=== PATIENT | female | born 1955 | race Caucasian/White ===

== ENCOUNTER 2025-01-25 22:01 | Emergency (ER) | payer MEDICARE, SELFPAY ==
[2025-01-25 22:05] VITALS: BP 143/80; PULSE 81; RESP 18; TEMP 36.6; O2SAT 94; BMI 27.6
--- NOTE | 2025-01-25 22:11 | ED.GENADULT ---
HPI - General Adult General Time Seen by Provider: 22:11 Date Seen: 01/25/25 Chief complaint: Ear/Nose/Throat Problem Stated complaint: L ear pain Time Seen by Provider: 01/25/25 22:08 Source: patient, family, RN notes reviewed and old records reviewed Mode of arrival: ambulatory Limitations: no limitations History of Present Illness HPI narrative: 70-year-old female who presents today with left ear pain. Patient has had upper respiratory symptoms for couple of days, negative COVID test at home x2. Tonight the shower felt like she got water in her ear and since then has had pressure, muffled hearing, in sensation of ear fullness. Took Tylenol for this earlier. Related Data Home Medications ?Medication ?Instructions ?Recorded ?Confirmed atorvastatin 10 mg tablet 10 mg PO DAILY 01/25/25 01/25/25 bupropion HCl 75 mg tablet 75 mg PO DAILY 01/25/25 01/25/25 nilotinib HCl 200 mg capsule 200 mg PO DAILY 01/25/25 01/25/25 (Tasigna) omeprazole 10 mg capsule,delayed 10 mg PO DAILY 01/25/25 01/25/25 release propranolol 120 mg capsule,24 120 mg PO DAILY 01/25/25 01/25/25 hr,extended release (Inderal LA) Previous Rx's ?Medication ?Instructions ?Recorded fluticasone propionate 50 2 spray intranasal DAILY PRN #16 01/25/25 mcg/actuation nasal grams spray,suspension (Flonase Allergy Relief) prednisone 20 mg tablet 40 mg (2 x 20 mg) PO DAILY 4 days 01/25/25 #8 tabs Allergies Allergy/AdvReac Type Severity Reaction Status Date / Time imatinib Allergy Mild Rash Verified 01/25/25 22:28 [facility] Social History Smoking Status: Never smoker Do you use any of these nicotine containing products: None How often do you have a drink containing alcohol: monthly or less How many standard drinks containing alcohol do you have on a typical day: 1 or 2 How often do you have six or more drinks on one occasion: Never AUDIT-C Alcohol total score: 1 Non-prescribed substance use: denies use service: No Exam Narrative: Exam Narrative: General: Well-developed and well-nourished, no acute distress Head: Atraumatic and normocephalic Eyes: Pupils are equal reactive, extraocular motions intact, conjunctiva clear ENT: External nose and ears are normal, posterior pharynx without erythema or exudate. Left external auditory canal clear without erythema or swelling, left tympanic membrane bulging and mildly hyperemic Neck: No midline cervical tenderness, full spontaneous range of motion the neck, trachea midline, no adenopathy Heart: Regular rate and rhythm no murmurs or thrills Lungs: Clear to auscultation bilaterally without wheezes or crackles Abdomen: Soft, nontender, nondistended with active bowel sounds Musculoskeletal: No tenderness, deformity, or edema Neurologic: Awake, alert, and oriented x3, no gross focal neurologic deficits, cranial nerves intact as tested Psych: Mood and affect are appropriate Skin: No rashes Const: Vital Signs, click to edit/add: Vital Signs - 24 hr 01/25/25 22:05 Temperature 97.8 F Pulse Rate [Left P ulse Oximeter] 81 Respiratory Rate 18 Blood Pressure [Ri ght Upper Arm] 143/80 H Pulse Oximetry 94 Oxygen Delivery Me thod Room Air Course Course ED Course: Reviewed most recent primary care visit from January 06 which was follow-up from [facility] for history of right-sided breast cancer treated with surgery, chemotherapy. 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 At that time started on the Keflex for breast cellulitis. Patient presents today with couple of days of burst for symptoms as well as left ear pain and fullness. She is requesting a COVID test, in spite of having to negative COVID test at home. Will call with results as patient would not be a candidate for treatment. She also has left ear fullness, feels like there is fluid in it. On exam she has fluid in the middle ear space with mild erythema of the eardrum but no nat purulence or bullae. Symptoms are most consistent with otitis media with effusion, patient started on prednisone as well as nasal decongestant and stable for discharge Vital Signs Vital signs: Initial Vital Signs Temperature 97.8 F 01/25/25 22:05 Temperature Source Temporal Artery Scan 01/25/25 22:05 Pulse Rate 81 01/25/25 22:05 Pulse Rhythm Regular 01/25/25 22:05 Pulse Strength 3+ Normal 01/25/25 22:05 Respiratory Rate 18 01/25/25 22:05 Blood Pressure 143/80 H 01/25/25 22:05 Blood Pressure Mean 101 01/25/25 22:05 Blood Pressure Position Sitting 01/25/25 22:05 Pulse Oximetry 94 01/25/25 22:05 Oxygen Delivery Method Room Air 01/25/25 22:05 Vital Signs Temperature 97.8 F 01/25/25 22:05 Pulse Rate 81 01/25/25 22:05 Respiratory Rate 18 01/25/25 22:05 Blood Pressure 143/80 H 01/25/25 22:05 Pulse Oximetry 94 01/25/25 22:05 Oxygen Delivery Method Room Air 01/25/25 22:05 Temperature 97.8 F 01/25/25 22:05 Pulse Rate 81 01/25/25 22:05 Respiratory Rate 18 01/25/25 22:05 Blood Pressure 143/80 H 01/25/25 22:05 Pulse Oximetry 94 01/25/25 22:05 Oxygen Delivery Method Room Air 01/25/25 22:05 Discharge Plan Discharge Clinical Impression: OME (otitis media with effusion) Patient Disposition: Home, Self-Care Condition: Stable Instructions: Fluid In The Ear (Serous Otitis Media) (ED) Additional Instructions: Take prednisone as prescribed, use Flonase as prescribed and Benadryl as needed Activity Level: No Restrictions Discharge Diet: Regular Prescriptions: New fluticasone propionate [Flonase Allergy Relief] 50 mcg/actuation spray,suspension 2 spray intranasal DAILY PRNQty: 16 2RF Rx Instructions: administer into each nostril prednisone 20 mg tablet 40 mg PO DAILY 4 Days Qty: 8 0RF No Action nilotinib HCl [Tasigna] 200 mg capsule 200 mg PO DAILY Rx Instructions: must be taken on empty stomach; no food at least 2 hrs before or 1 hr after dose propranolol [Inderal LA] 120 mg capsule,extended release 24 hr 120 mg PO DAILY atorvastatin 10 mg tablet 10 mg PO DAILY bupropion HCl 75 mg tablet 75 mg PO DAILY omeprazole 10 mg capsule,delayed release(DR/EC) 10 mg PO DAILY Stand Alone Forms: MyHealth Info Instructions
--- OUTSIDE RECORDS SUMMARY | 2025-01-25 22:52 | XMS_ITS ---
Author Name Interface, [id number] lity Address [address] [facility] [address] [address] [facility] On[facility] Address [address] [facility] [address] [address] Allergies and Adverse Reactions Medication/Group Name Reaction Severity Date imatinib mesylate 01/20/2025 topiramate 01/20/2025 Plan Date Type Value 01/20/2025 APPOINTMENT OV 30 MIN 01/06/2025 APPOINTMENT OV 30 MIN 01/06/2025 APPOINTMENT LAB 15 MIN 01/06/2025 LABORDER CMP 01/06/2025 LABORDER CBC w/ auto diff 01/06/2025 LABORDER BCR/ABL1 Quant Reason for Visit OV 30 MIN Encounters Date Name 01/06/2025 Cellulitis of breast (disorder) 01/06/2025 Chronic myeloid leuk emia, disease (disorder) 01/06/2025 Estrogen receptor ne gative status [ER-] 01/06/2025 Lymphedema 01/06/2025 Personal history of breast cancer Immunizations Date Name Route Dose Instructions Refusal Reason Stat us Covid-19 vaccine (Moderna) Patient declined/rejected Not Administered Diagnostic Results Date Type Test Units Lower Limit Upper Limit Result Flag Comments Status Ordered By Specimen Source Lab Address 01/06 CBC w/ auto diff WBC K/uL 3.0 8.9 4.5 FINAL Nicole [facility] [place] [facility] , [address] [place] [id number] 0 01/06 CBC w/ auto diff HGB g/dL 11.3 15.2 12.8 FINAL Nicole [facility] - [place] [facility] , [address] [place] [id number] 0 01/06 CBC w/ auto diff PLT K/uL 113.0 364.0 153 FINAL Nicole Ya [place] [facility] [place] [facility] , [address] [place] [id number] 0 01/06 CBC w/ auto diff Augustus # (ANC) K/uL 1.6 6.6 2.8 FINAL Nicole Ya [place] [facility] [place] [facility] , [address] [place] [id number] 0 01/06 CBC w/ auto diff Augustus % % 43.0 74.0 61.5 FINAL Nicole Ya [place] [facility] [place] [facility] , [address] [place] [id number] 0 01/06 CBC w/ auto diff IG % % 0.0 0.5 0.4 FINAL Nicole Ya [place] [facility] , [address] [place] [id number] 0 01/06 CBC w/ auto diff IG # K/uL 0.0 0.03 0.02 FINAL Nicole Ya [place] [facility] [place] [facility] , [address] [place] [id number] 0 01/06 CBC w/ auto diff LY % % 14.0 41.0 25.4 FINAL Nicole Ya [place] [facility] [place] [facility] , [address] [place] [id number] 0 01/06 CBC w/ auto diff MO % % 6.0 15.0 12.7 FINAL Nicole Ya [place] [facility] [place] [facility] , [address] [place] [id number] 0 01/06 CBC w/ auto diff EO % % 0.0 7.0 0.0 FINAL Nicole Ya [place] [facility] [place] [facility] , [address] [place] [id number] 0 01/06 CBC w/ auto diff BA % % 0.0 2.0 0.0 FINAL Nicole Ya [place] [facility] [place] [facility] , [address] [place] [id number] 0 01/06 CBC w/ auto diff LY # K/uL 0.4 3.6 1.1 FINAL Nicole Ya [place] [facility] [place] [facility] , [address] [place] [id number] 0 01/06 CBC w/ auto diff NRBC % #/100W BC 0.0 0.2 0.0 FINAL Nicole Ya [place] [facility] [place] [facility] , [address] [place] [id number] 0 01/06 CBC w/ auto diff MO # K/uL 0.2 1.3 0.6 FINAL Nicole Ya [place] [facility] [place] [facility] , [address] [place] [id number] 0 01/06 CBC w/ auto diff EO # K/uL 0.0 0.6 0.0 FINAL Nicole Ya [place] [facility] [place] [facility] , [address] [place] [id number] 0 01/06 CBC w/ auto diff BA # K/uL 0.0 0.2 0.0 FINAL Nicole Ya [place] [facility] [place] [facility] , [address] [place] [id number] 0 01/06 CBC w/ auto diff RBC M/uL 3.9 5.1 3.69 Low FINAL Nicole Ya [place] [facility] [place] [facility] , [address] [place] [id number] 0 01/06 CBC w/ auto diff HCT % 35.0 48.0 37.6 FINAL Nicole Ya [place] [facility] [place] [facility] , [address] [place] [id number] 0 01/06 CBC w/ auto diff MCV fL 80.0 104.0 101.9 FINAL Nicole Ya [place] [facility] [place] [facility] , [address] [place] [id number] 0 01/06 CBC w/ auto diff MCH pg 26.0 35.0 34.7 FINAL Nicole Ya [place] [facility] [place] [facility] , [address] [place] [id number] 0 01/06 CBC w/ auto diff MCHC g/dL 30.0 35.0 34.0 FINAL Nicole Ya [place] [facility] [place] [facility] , [address] [place] [id number] 0 01/06 CBC w/ auto diff MPV fL 9.5 13.4 9.6 FINAL Nicole Ya [place] [facility] [place] [facility] , [address] [place] [id number] 0 01/06 CBC w/ auto diff RDW % 11.4 16.1 13.00 FINAL Nicole Ya [place] [facility] [place] [facility] , [address] [place] [id number] 0 01/06 CMP Album in g/dL 3.5 5.0 3.9 FINAL Nicole Fel[place] * [place] [facility] [place] [facility] , [address] [place] [id number] 0 01/06 CMP Alkal ine phosp hatas e U/L 36.0 125.0 79 FINAL Nicole Ya * [facility] , [address] [facility] [address] [facility] [id number] 0 01/06 CMP ALT/S GPT U/L 0.0 34.0 24 FINAL Nicole Ya * [facility] , [address] [facility] [address] [facility] [id number] 0 01/06 CMP AST/S GOT U/L 14.0 36.0 33 FINAL Nicole Ya * [facility] , [address] [facility] [address] [facility] [id number] 0 01/06 CMP BUN mg/dL 7.0 17.0 14.0 FINAL Nicole Ya * [facility] , [address] [facility] [address] [facility] [id number] 0 01/06 CMP Calci um mg/dL 8.4 10.2 8.9 FINAL Nicole Ya * [facility] , [address] [facility] [address] [facility] [id number] 0 01/06 CMP Chlor rakan mmol/L 96.0 107.0 109 High FINAL Nicole Ya * [facility] , [address] [facility] [address] [facility] [id number] 0 01/06 CMP CO2 mmol/L 22.0 30.0 27 The expected total allowable error for CO2 is 5.6%. We have seen up to 10% differenc e in values if reported at the end of the 96 hour stability window. Please consider the clinical significa nce of a 2.0-2.5 mmol/L lower reported CO2 value if reported at the end of the 96 hour stability window. FINAL Nicole Ya * [facility] , [address] [facility] [address] [facility] [id number] 0 01/06 CMP Creat inine mg/dL 0.66 1.25 1.00 FINAL Nicole Ya * [facility] , [facility] [address] [id number] 0 01/06 CMP GFR estim ate ml/min /1.73m ^2 60.2 GFR is calculate d using the CKD-EPI equation. FINAL Nicole Ya * [facility] , [facility] [address] [id number] 0 01/06 CMP Gluco se mg/dL 74.0 100.0 88 FINAL Nicole Ya * [facility] , [facility] [address] [id number] 0 01/06 CMP Potas sium mmol/L 3.5 5.1 4.1 FINAL Nicole Ya * [facility] , [facility] [address] [id number] 0 01/06 CMP Sodiu m mmol/L 137.0 145.0 141 FINAL Nicole Ya * [facility] , [facility] [address] [id number] 0 01/06 CMP Bilir ubin, total mg/dL 0.2 1.3 0.8 FINAL Nicole Ya * [facility] , [facility] [address] [id number] 0 01/06 CMP Total prote in g/dL 6.3 8.2 6.2 Low FINAL Nicole Ya * [facility] , [facility] [address] [id number] 0 01/06 PRIOR RESUL T See Report FINAL Nicole Ya [facility] [address] [facility] [id number] 4 01/06 SOURC E: Periphe ral Blood FINAL Nicole Ya [facility], [facility] [address] [place] [id number] 4 01/06 BCR ABL1/ ABL1 % % 0.000 FINAL Nicole Ya [facility], [facility] [address] [place] [id number] 4 01/06 BCR ABL1/ ABL1 % (IS) % 0.000 FINAL Nicole Ya [facility], [facility] [address] [place] [id number] 4 01/06 INTER PRETA TION see note The P190 and P210 BCR-ABL1 fusion transcrip ts are NOTdetect ed.Revers e transcrip tion real-time PCR is performed forthe P190 and P210 BCR-ABL1 transcrip ts associate d withthe t(9;22) chromosom al transloca tion. For P190,resu lts are expressed as a percent ratio of BCR-ABL1t o ABL1 transcrip t, and further adjusted to theintern ational scale (IS) for P210.For additiona l informati on, please refer tohttp:// education .[employer]/faq/F AQ72(This link is being provided forinform ational/e ducationa l purposes only.)Ass ay sensitivi ty is at least 4.5-logs below baselineB CR-ABL1 transcrip t levels but is dependent onquantit y and quality of RNA used for testing and thecellul arity of the sample.Th is test was developed and its analytica lperforma nce character istics have been determine dby [facility] , [place], [place].It has not been cleared or approved by the FDA. Thisassay has been validated pursuant to the CLIAregul ations and is used for clinical purposes. Reviewed by Aiden Hui M.D., Ph.D.Staf f Pathologi st FINAL Nicole Ya [facility], [facility] [address] [facility] [id number] 4 01/06 P190 BCR ABL1 Not Detecte d LELIA NEGRETE, [facility] [address] [facility] [id number] 4 01/06 P210 BCR ABL1 Not Detecte d LELIA NEGRETE [facility] [address] [facility] [id number] 4 Medications Date Name Route Dose Frequency Instructions Start Date End Date Status Fill Status Indication 03/13 Atorvas tatin Oral orally 1.0 tablet daily active 09/11 Desvenl afaxine Oral 24 hr Tab oral 1.0 tablet extend ed releas e 24 hr daily active 01/06 cephale abby 500 MG Oral Capsule orally 1.0 capsul e 4 times per day 2024 active 12/15 nilotin ib 200 MG Oral Capsule [Tasign a] 2024 active 06/09 nilotin ib 200 MG Oral Capsule [Tasign a] orally 1.0 capsul e daily Take whole with water. Take on an empty stomach, 1 hour before or 2 hours after food. 2024 active Chronic myeloid leukemia, disease (disorder) 04/22 nilotin ib 200 MG Oral Capsule [Tasign a] orally 1.0 capsul e daily Take whole with water. Take on an empty stomach, 1 hour before or 2 hours after food. 2023 active Chronic myeloid leukemia, disease (disorder) 04/09 Solu-Me drol intrave nously 125.0 mg Re-initiate treatment only upon physician approval. 2023 active Breast cancer, female 04/09 famotid ine 10 MG/ML Injecta ble Solutio n intrave nously 20.0 mg Re-initiate treatment only upon physician approval. 2023 active Breast cancer, female 04/09 Diphenh ydramin e IV intrave nously 50.0 mg Re-initiate treatment only upon physician approval. 2023 active Breast cancer, female 04/09 Solu-Co rtef intrave nously 100.0 mg Re-initiate treatment only upon physician approval. 2023 active Breast cancer, female 04/09 1 ML epineph rine 1 MG/ML Injecti on intramu scularl y 0.3 mg once Re-initiate treatment only upon physician approval. 2023 active Breast cancer, female 04/09 1 ML epineph rine 1 MG/ML Injecti on intramu scularl y 0.3 mg once Re-initiate treatment only upon physician approval. 2023 active Breast cancer, female 04/09 famotid ine 10 MG/ML Injecta ble Solutio n intrave nously 20.0 mg Re-initiate treatment only upon physician approval. 2023 active Breast cancer, female 04/09 Diphenh ydramin e IV intrave nously 50.0 mg Re-initiate treatment only upon physician approval. 2023 active Breast cancer, female 04/09 Solu-Co rtef intrave nously 100.0 mg Re-initiate treatment only upon physician approval. 2023 active Breast cancer, female 04/09 Solu-Me drol intrave nously 125.0 mg Re-initiate treatment only upon physician approval. 2023 active Breast cancer, female 04/09 1 ML epineph rine 1 MG/ML Injecti on intramu scularl y 0.3 mg once Re-initiate treatment only upon physician approval. 2023 active Breast cancer, female 04/09 Solu-Me drol intrave nously 125.0 mg Re-initiate treatment only upon physician approval. 2023 active Breast cancer, female 04/09 Solu-Co rtef intrave nously 100.0 mg Re-initiate treatment only upon physician approval. 2023 active Breast cancer, female 04/09 famotid ine 10 MG/ML Injecta ble Solutio n intrave nously 20.0 mg Re-initiate treatment only upon physician approval. 2023 active Breast cancer, female 04/09 Diphenh ydramin e IV intrave nously 50.0 mg Re-initiate treatment only upon physician approval. 2023 active Breast cancer, female 04/09 Diphenh ydramin e IV intrave nously 50.0 mg Re-initiate treatment only upon physician approval. 2023 active Breast cancer, female 04/09 Solu-Co rtef intrave nously 100.0 mg Re-initiate treatment only upon physician approval. 2023 active Breast cancer, female 04/09 famotid ine 10 MG/ML Injecta ble Solutio n intrave nously 20.0 mg Re-initiate treatment only upon physician approval. 2023 active Breast cancer, female 04/09 1 ML epineph rine 1 MG/ML Injecti on intramu scularl y 0.3 mg once Re-initiate treatment only upon physician approval. 2023 active Breast cancer, female 04/09 Solu-Me drol intrave nously 125.0 mg Re-initiate treatment only upon physician approval. 2023 active Breast cancer, female 04/09 Diphenh ydramin e IV intrave nously 50.0 mg Re-initiate treatment only upon physician approval. 2023 active Breast cancer, female 04/09 famotid ine 10 MG/ML Injecta ble Solutio n intrave nously 20.0 mg Re-initiate treatment only upon physician approval. 2023 active Breast cancer, female 04/09 Solu-Me drol intrave nously 125.0 mg Re-initiate treatment only upon physician approval. 2023 active Breast cancer, female 04/09 1 ML epineph rine 1 MG/ML Injecti on intramu scularl y 0.3 mg once Re-initiate treatment only upon physician approval. 2023 active Breast cancer, female 04/09 Solu-Co rtef intrave nously 100.0 mg Re-initiate treatment only upon physician approval. 2023 active Breast cancer, female 04/09 1 ML epineph rine 1 MG/ML Injecti on intramu scularl y 0.3 mg once Re-initiate treatment only upon physician approval. 2023 active Breast cancer, female 04/09 Diphenh ydramin e IV intrave nously 50.0 mg Re-initiate treatment only upon physician approval. 2023 active Breast cancer, female 04/09 famotid ine 10 MG/ML Injecta ble Solutio n intrave nously 20.0 mg Re-initiate treatment only upon physician approval. 2023 active Breast cancer, female 04/09 Solu-Co rtef intrave nously 100.0 mg Re-initiate treatment only upon physician approval. 2023 active Breast cancer, female 04/09 Solu-Me drol intrave nously 125.0 mg Re-initiate treatment only upon physician approval. 2023 active Breast cancer, female 04/09 famotid ine 10 MG/ML Injecta ble Solutio n intrave nously 20.0 mg Re-initiate treatment only upon physician approval. 2023 active Breast cancer, female 04/09 1 ML epineph rine 1 MG/ML Injecti on intramu scularl y 0.3 mg once Re-initiate treatment only upon physician approval. 2023 active Breast cancer, female 04/09 Diphenh ydramin e IV intrave nously 50.0 mg Re-initiate treatment only upon physician approval. 2023 active Breast cancer, female 04/09 Solu-Co rtef intrave nously 100.0 mg Re-initiate treatment only upon physician approval. 2023 active Breast cancer, female 04/09 Solu-Me drol intrave nously 125.0 mg Re-initiate treatment only upon physician approval. 2023 active Breast cancer, female 02/08 500 ML magnesi um sulfate 40 MG/ML Injecti on intrave nously 1.0 gram once 2023 active Dehydration 02/08 dexamet hasone phospha te 4 MG/ML Injecta ble Solutio n intrave nously 10.0 mg once 2023 active Dehydration 02/08 Kytril intrave nously 1000.0 mcg once 2023 active Dehydration 02/08 potassi um chlorid e / sodium chlorid e intrave nous 20.0 mEq once Do not exceed infusion rate of 10 mEq/hour. 2023 active Dehydration 02/08 Sodium Chlorid e IV 0.9 % intrave nously 1000.0 mL once 2023 active Dehydration 02/08 500 ML magnesi um sulfate 40 MG/ML Injecti on intrave nously 1.0 gram once 2023 active Dehydration 02/08 dexamet hasone phospha te 4 MG/ML Injecta ble Solutio n intrave nously 10.0 mg once 2023 active Dehydration 02/08 potassi um chlorid e / sodium chlorid e intrave nous 20.0 mEq once Do not exceed infusion rate of 10 mEq/hour. 2023 active Dehydration 02/08 Kytril intrave nously 1000.0 mcg once 2023 active Dehydration 02/08 Sodium Chlorid e IV 0.9 % intrave nously 1000.0 mL once 2023 active Dehydration 02/08 dexamet hasone phospha te 4 MG/ML Injecta ble Solutio n intrave nously 10.0 mg once 06/04 on hold Dehydration 02/08 500 ML magnesi um sulfate 40 MG/ML Injecti on intrave nously 1.0 gram once 06/04 on hold Dehydration 02/08 Kytril intrave nously 1000.0 mcg once 2023 active Dehydration 02/08 potassi um chlorid e / sodium chlorid e intrave nous 20.0 mEq once Do not exceed infusion rate of 10 mEq/hour. 06/04 on hold Dehydration 04/09 famotid ine 10 MG/ML Injecta ble Solutio n intrave nously 20.0 mg Re-initiate treatment only upon physician approval. 2023 active Breast cancer, female 04/09 1 ML epineph rine 1 MG/ML Injecti on intramu scularl y 0.3 mg once Re-initiate treatment only upon physician approval. 2023 active Breast cancer, female 04/09 Solu-Me drol intrave nously 125.0 mg Re-initiate treatment only upon physician approval. 2023 active Breast cancer, female 04/09 Solu-Co rtef intrave nously 100.0 mg Re-initiate treatment only upon physician approval. 2023 active Breast cancer, female 04/09 Diphenh ydramin e IV intrave nously 50.0 mg Re-initiate treatment only upon physician approval. 2023 active Breast cancer, female 04/09 1 ML epineph rine 1 MG/ML Injecti on intramu scularl y 0.3 mg once Re-initiate treatment only upon physician approval. 2022 active Breast cancer, female 04/09 Solu-Co rtef intrave nously 100.0 mg Re-initiate treatment only upon physician approval. 2022 active Breast cancer, female 04/09 famotid ine 10 MG/ML Injecta ble Solutio n intrave nously 20.0 mg Re-initiate treatment only upon physician approval. 2022 active Breast cancer, female 04/09 Solu-Me drol intrave nously 125.0 mg Re-initiate treatment only upon physician approval. 2022 active Breast cancer, female 04/09 Diphenh ydramin e IV intrave nously 50.0 mg Re-initiate treatment only upon physician approval. 2022 active Breast cancer, female 04/09 Solu-Co rtef intrave nously 100.0 mg Re-initiate treatment only upon physician approval. 2022 active Breast cancer, female 04/09 Diphenh ydramin e IV intrave nously 50.0 mg Re-initiate treatment only upon physician approval. 2022 active Breast cancer, female 04/09 famotid ine 10 MG/ML Injecta ble Solutio n intrave nously 20.0 mg Re-initiate treatment only upon physician approval. 2022 active Breast cancer, female 04/09 1 ML epineph rine 1 MG/ML Injecti on intramu scularl y 0.3 mg once Re-initiate treatment only upon physician approval. 2022 active Breast cancer, female 04/09 Solu-Me drol intrave nously 125.0 mg Re-initiate treatment only upon physician approval. 2022 active Breast cancer, female 03/01 famotid ine 10 MG/ML Injecta ble Solutio n intrave nously 20.0 mg Re-initiate treatment only upon physician approval. 2022 active Breast cancer, female 03/01 1 ML epineph rine 1 MG/ML Injecti on intramu scularl y 0.3 mg once Re-initiate treatment only upon physician approval. 2022 active Breast cancer, female 03/01 Diphenh ydramin e IV intrave nously 50.0 mg Re-initiate treatment only upon physician approval. 2022 active Breast cancer, female 03/01 Solu-Me drol intrave nously 125.0 mg Re-initiate treatment only upon physician approval. 2022 active Breast cancer, female 03/01 Solu-Co rtef intrave nously 100.0 mg Re-initiate treatment only upon physician approval. 2022 active Breast cancer, female 02/08 500 ML magnesi um sulfate 40 MG/ML Injecti on intrave nously 1.0 gram once 02/19 on hold Dehydration 02/08 potassi um chlorid e / sodium chlorid e intrave nous 20.0 mEq once Do not exceed infusion rate of 10 mEq/hour. 02/19 on hold Dehydration 02/08 Kytril intrave nously 1000.0 mcg once 02/19 on hold Dehydration 02/08 dexamet hasone phospha te 4 MG/ML Injecta ble Solutio n intrave nously 10.0 mg once 02/19 on hold Dehydration 02/08 500 ML magnesi um sulfate 40 MG/ML Injecti on intrave nously 1.0 gram once 02/12 on hold Dehydration 02/08 dexamet hasone phospha te 4 MG/ML Injecta ble Solutio n intrave nously 10.0 mg once 02/12 on hold Dehydration 02/08 potassi um chlorid e / sodium chlorid e intrave nous 20.0 mEq once Do not exceed infusion rate of 10 mEq/hour. 02/12 on hold Dehydration 11/06 diphenh ydramin e hydroch loride 0.5 MG/ML Injecta ble Solutio n intrave nously 50.0 mg Re-initiate treatment only upon physician approval. 2022 active Chronic myeloid leukemia, disease (disorder) 11/06 famotid ine 10 MG/ML Injecta ble Solutio n intrave nously 20.0 mg Re-initiate treatment only upon physician approval. 2022 active Chronic myeloid leukemia, disease (disorder) 11/06 famotid ine 10 MG/ML Injecta ble Solutio n intrave nously 20.0 mg Re-initiate treatment only upon physician approval. 2022 active Breast cancer, female 02/08 dexamet hasone phospha te 4 MG/ML Injecta ble Solutio n intrave nously 10.0 mg once 02/08 on hold Dehydration 11/06 1 ML epineph rine 1 MG/ML Injecti on intramu scularl y 0.3 mg once Re-initiate treatment only upon physician approval. 2022 active Chronic myeloid leukemia, disease (disorder) 11/06 diphenh ydramin e hydroch loride 0.5 MG/ML Injecta ble Solutio n intrave nously 50.0 mg Re-initiate treatment only upon physician approval. 2022 active Breast cancer, female 02/08 500 ML magnesi um sulfate 40 MG/ML Injecti on intrave nously 1.0 gram once 02/08 on hold Dehydration 11/06 methylp redniso lone 2000 MG Injecti on intrave nously 125.0 mg Re-initiate treatment only upon physician approval. 2022 active Breast cancer, female 11/06 1 ML epineph rine 1 MG/ML Injecti on intramu scularl y 0.3 mg once Re-initiate treatment only upon physician approval. 2022 active Breast cancer, female 11/06 hydroco rtisone 100 MG Injecti on intrave nously 100.0 mg Re-initiate treatment only upon physician approval. 2022 active Chronic myeloid leukemia, disease (disorder) 11/06 hydroco rtisone 100 MG Injecti on intrave nously 100.0 mg Re-initiate treatment only upon physician approval. 2022 active Breast cancer, female 11/06 methylp redniso lone 2000 MG Injecti on intrave nously 125.0 mg Re-initiate treatment only upon physician approval. 2022 active Chronic myeloid leukemia, disease (disorder) 01/31 nilotin ib 200 MG Oral Capsule [Tasign a] orally 1.0 capsul e daily Take whole with water. Take on an empty stomach, 1 hour before or 2 hours after food. 2022 active Chronic myeloid leukemia, disease (disorder) 11/06 diphenh ydramin e hydroch loride 0.5 MG/ML Injecta ble Solutio n intrave nously 50.0 mg Re-initiate treatment only upon physician approval. 2022 active Breast cancer, female 11/06 famotid ine 10 MG/ML Injecta ble Solutio n intrave nously 20.0 mg Re-initiate treatment only upon physician approval. 2022 active Breast cancer, female 11/06 methylp redniso lone 2000 MG Injecti on intrave nously 125.0 mg Re-initiate treatment only upon physician approval. 2022 active Breast cancer, female 11/06 hydroco rtisone 100 MG Injecti on intrave nously 100.0 mg Re-initiate treatment only upon physician approval. 2022 active Breast cancer, female 11/06 1 ML epineph rine 1 MG/ML Injecti on intramu scularl y 0.3 mg once Re-initiate treatment only upon physician approval. 2022 active Chronic myeloid leukemia, disease (disorder) 11/06 famotid ine 10 MG/ML Injecta ble Solutio n intrave nously 20.0 mg Re-initiate treatment only upon physician approval. 2022 active Chronic myeloid leukemia, disease (disorder) 11/06 diphenh ydramin e hydroch loride 0.5 MG/ML Injecta ble Solutio n intrave nously 50.0 mg Re-initiate treatment only upon physician approval. 2022 active Chronic myeloid leukemia, disease (disorder) 11/06 hydroco rtisone 100 MG Injecti on intrave nously 100.0 mg Re-initiate treatment only upon physician approval. 2022 active Chronic myeloid leukemia, disease (disorder) 11/06 methylp redniso lone 2000 MG Injecti on intrave nously 125.0 mg Re-initiate treatment only upon physician approval. 2022 active Chronic myeloid leukemia, disease (disorder) 11/06 1 ML epineph rine 1 MG/ML Injecti on intramu scularl y 0.3 mg once Re-initiate treatment only upon physician approval. 2022 active Breast cancer, female 11/06 methylp redniso lone 2000 MG Injecti on intrave nously 125.0 mg Re-initiate treatment only upon physician approval. 2022 active Chronic myeloid leukemia, disease (disorder) 11/06 diphenh ydramin e hydroch loride 0.5 MG/ML Injecta ble Solutio n intrave nously 50.0 mg Re-initiate treatment only upon physician approval. 2022 active Chronic myeloid leukemia, disease (disorder) 11/06 diphenh ydramin e hydroch loride 0.5 MG/ML Injecta ble Solutio n intrave nously 50.0 mg Re-initiate treatment only upon physician approval. 2022 active Breast cancer, female 11/06 1 ML epineph rine 1 MG/ML Injecti on intramu scularl y 0.3 mg once Re-initiate treatment only upon physician approval. 2022 active Breast cancer, female 11/06 hydroco rtisone 100 MG Injecti on intrave nously 100.0 mg Re-initiate treatment only upon physician approval. 2022 active Breast cancer, female 11/06 1 ML epineph rine 1 MG/ML Injecti on intramu scularl y 0.3 mg once Re-initiate treatment only upon physician approval. 2022 active Chronic myeloid leukemia, disease (disorder) 11/06 hydroco rtisone 100 MG Injecti on intrave nously 100.0 mg Re-initiate treatment only upon physician approval. 2022 active Chronic myeloid leukemia, disease (disorder) 11/06 famotid ine 10 MG/ML Injecta ble Solutio n intrave nously 20.0 mg Re-initiate treatment only upon physician approval. 2022 active Breast cancer, female 11/06 famotid ine 10 MG/ML Injecta ble Solutio n intrave nously 20.0 mg Re-initiate treatment only upon physician approval. 2022 active Chronic myeloid leukemia, disease (disorder) 11/06 methylp redniso lone 2000 MG Injecti on intrave nously 125.0 mg Re-initiate treatment only upon physician approval. 2022 active Breast cancer, female 12/11 nilotin ib 200 MG Oral Capsule [Tasign a] orally 1.0 capsul e daily Take whole with water. Take on an empty stomach, 1 hour before or 2 hours after food. 2022 active Chronic myeloid leukemia, disease (disorder) 11/06 famotid ine 10 MG/ML Injecta ble Solutio n intrave nously 20.0 mg Re-initiate treatment only upon physician approval. 2022 active Breast cancer, female 11/06 hydroco rtisone 100 MG Injecti on intrave nously 100.0 mg Re-initiate treatment only upon physician approval. 2022 active Breast cancer, female 11/06 methylp redniso lone 2000 MG Injecti on intrave nously 125.0 mg Re-initiate treatment only upon physician approval. 2022 active Chronic myeloid leukemia, disease (disorder) 11/06 methylp redniso lone 2000 MG Injecti on intrave nously 125.0 mg Re-initiate treatment only upon physician approval. 2022 active Breast cancer, female 11/06 1 ML epineph rine 1 MG/ML Injecti on intramu scularl y 0.3 mg once Re-initiate treatment only upon physician approval. 2022 active Breast cancer, female 11/06 diphenh ydramin e hydroch loride 0.5 MG/ML Injecta ble Solutio n intrave nously 50.0 mg Re-initiate treatment only upon physician approval. 2022 active Chronic myeloid leukemia, disease (disorder) 11/06 diphenh ydramin e hydroch loride 0.5 MG/ML Injecta ble Solutio n intrave nously 50.0 mg Re-initiate treatment only upon physician approval. 2022 active Breast cancer, female 11/06 famotid ine 10 MG/ML Injecta ble Solutio n intrave nously 20.0 mg Re-initiate treatment only upon physician approval. 2022 active Chronic myeloid leukemia, disease (disorder) 11/06 hydroco rtisone 100 MG Injecti on intrave nously 100.0 mg Re-initiate treatment only upon physician approval. 2022 active Chronic myeloid leukemia, disease (disorder) 11/06 1 ML epineph rine 1 MG/ML Injecti on intramu scularl y 0.3 mg once Re-initiate treatment only upon physician approval. 2022 active Chronic myeloid leukemia, disease (disorder) 11/06 1 ML epineph rine 1 MG/ML Injecti on intramu scularl y 0.3 mg once Re-initiate treatment only upon physician approval. 2022 active Chronic myeloid leukemia, disease (disorder) 11/06 methylp redniso lone 2000 MG Injecti on intrave nously 125.0 mg Re-initiate treatment only upon physician approval. 2022 active Chronic myeloid leukemia, disease (disorder) 11/06 methylp redniso lone 2000 MG Injecti on intrave nously 125.0 mg Re-initiate treatment only upon physician approval. 2022 active Breast cancer, female 11/06 famotid ine 10 MG/ML Injecta ble Solutio n intrave nously 20.0 mg Re-initiate treatment only upon physician approval. 2022 active Breast cancer, female 11/06 hydroco rtisone 100 MG Injecti on intrave nously 100.0 mg Re-initiate treatment only upon physician approval. 2022 active Breast cancer, female 11/06 hydroco rtisone 100 MG Injecti on intrave nously 100.0 mg Re-initiate treatment only upon physician approval. 2022 active Chronic myeloid leukemia, disease (disorder) 11/06 1 ML epineph rine 1 MG/ML Injecti on intramu scularl y 0.3 mg once Re-initiate treatment only upon physician approval. 2022 active Breast cancer, female 11/06 diphenh ydramin e hydroch loride 0.5 MG/ML Injecta ble Solutio n intrave nously 50.0 mg Re-initiate treatment only upon physician approval. 2022 active Breast cancer, female 11/06 diphenh ydramin e hydroch loride 0.5 MG/ML Injecta ble Solutio n intrave nously 50.0 mg Re-initiate treatment only upon physician approval. 2022 active Chronic myeloid leukemia, disease (disorder) 11/06 famotid ine 10 MG/ML Injecta ble Solutio n intrave nously 20.0 mg Re-initiate treatment only upon physician approval. 2022 active Chronic myeloid leukemia, disease (disorder) 04/23 nilotin ib 200 MG Oral Capsule [Tasign a] orally 1.0 capsul e daily Take whole with water. Take on an empty stomach, 1 hour before or 2 hours after food. 2021 active Chronic myeloid leukemia, disease (disorder) 04/17 nilotin ib 200 MG Oral Capsule [Tasign a] orally 1.0 capsul e daily Take whole with water. Take on an empty stomach, 1 hour before or 2 hours after food. 2021 active Chronic myeloid leukemia, disease (disorder) 11/21 nilotin ib 200 MG Oral Capsule [Tasign a] orally 1.0 capsul e daily Take whole with water. Take on an empty stomach, 1 hour before or 2 hours after food. 2021 active Chronic myeloid leukemia, disease (disorder) 11/21 nilotin ib 200 MG Oral Capsule [Tasign a] orally 1.0 capsul e daily Take whole with water. Take on an empty stomach, 1 hour before or 2 hours after food. 2021 active Chronic myeloid leukemia, disease (disorder) 11/15 nilotin ib 200 MG Oral Capsule [Tasign a] orally 1.0 capsul e daily Take whole with water. Take on an empty stomach, 1 hour before or 2 hours after food. 2021 active Chronic myeloid leukemia, disease (disorder) 05/02 nilotin ib 200 MG Oral Capsule [Tasign a] orally 200.0 mg daily 2020 active Chronic myeloid leukemia, disease (disorder) 11/30 nilotin ib 200 MG Oral Capsule [Tasign a] orally 200.0 mg daily 2020 active Chronic myeloid leukemia, disease (disorder) 06/10 nilotin ib 200 MG Oral Capsule [Tasign a] orally 200.0 mg daily 2020 active Chronic myeloid leukemia, disease (disorder) 05/26 nilotin ib 200 MG Oral Capsule [Tasign a] orally 200.0 mg daily 2020 active Chronic myeloid leukemia, disease (disorder) 05/11 nilotin ib 200 MG Oral Capsule [Tasign a] orally 200.0 mg daily 2019 active Chronic myeloid leukemia, disease (disorder) 11/17 nilotin ib 200 MG Oral Capsule [Tasign a] orally 200.0 mg daily 2019 active Chronic myeloid leukemia, disease (disorder) 07/15 nilotin ib 200 MG Oral Capsule [Tasign a] orally 200.0 mg daily 2019 active Chronic myeloid leukemia, disease (disorder) 03/23 nilotin ib 200 MG Oral Capsule [Tasign a] orally 200.0 mg daily 2018 active Chronic myeloid leukemia, disease (disorder) 03/13 Propran olol Oral 24 hr Cap PO 2.0 CAPSUL E(S), SUSTAI PETE ACTION daily 2018 active 03/13 nilotin ib 200 MG Oral Capsule [Tasign a] orally 200.0 mg 2018 active 03/13 nilotin ib 200 MG Oral Capsule [Tasign a] orally 200.0 mg 2017 active 03/13 nilotin ib 200 MG Oral Capsule [Tasign a] orally 200.0 mg 2017 active 03/13 nilotin ib 200 MG Oral Capsule [Tasign a] orally 1.0 capsul e(s) 2017 active 03/13 nilotin ib 200 MG Oral Capsule [Tasign a] orally 1.0 capsul e(s) 2016 active 03/13 nilotin ib 200 MG Oral Capsule [Tasign a] orally 1.0 capsul e(s) 2016 active 03/13 nilotin ib 200 MG Oral Capsule [Tasign a] orally 1.0 capsul e(s) 2015 active 03/13 nilotin ib 200 MG Oral Capsule [Tasign a] orally 1.0 capsul e(s) 2015 active 03/13 nilotin ib 200 MG Oral Capsule [Tasign a] orally 1.0 capsul e(s) 2015 active 03/13 nilotin ib 200 MG Oral Capsule [Tasign a] 2014 active 03/13 nilotin ib 200 MG Oral Capsule [Tasign a] 2014 active 03/13 nilotin ib 200 MG Oral Capsule [Tasign a] 2013 active 03/13 nilotin ib 200 MG Oral Capsule [Tasign a] 2013 active 03/13 Miscell aneous Drug PO 1.0 TABLET (S) daily 2013 active 03/13 nilotin ib 200 MG Oral Capsule [Tasign a] 2012 active 03/13 Sumatri ptan Oral 100 mg PO PRN 2012 active 03/13 Calcium Carbona te Oral PO 1.0 TABLET (S) OCC W/ Magnesium 2012 active 03/13 Omepraz ole Oral Delayed Release Capsule PO 1.0 CAPSUL E(S), ENTERI C COATED Daily 2012 active Problems Diagnosis Status Date of Diagnosis Resolution Date Diarrhea caused by drug (disorder) Active Drug-induced neutropenia (disorder) Active Neutropenia prevention Active Thrombocytopenia caused by drugs (disorder) Active Acute pharyngitis Active Counseling Active Breast cancer, female Active Secondary malignancy of lymph nodes Active Estrogen receptor negative status [ER-] Active 0 11/06/2022 Dehydration Active Lower extremity edema Active Drug-induced nausea and vomiting (disorder) Active Hypokalemia (disorder) Active Muscle weakness (finding) Active Depressive disorder (disorder) Active Hyperlipidemia (disorder) Active Fatigue (finding) Active Migraine (disorder) Active Chronic myeloid leukemia, disease (disorder) Active 05/2012 Screening status (finding) Active Limited range of motion Active Personal history of breast cancer Active Right shoulder pain Active Vicky intertrigo (disorder) Active Lymphedema Active Cellulitis of breast (disorder) Active Vaccination for influenza given Active Vital Signs Date Type Value 01/06/2025 Body Temperature 96.40 01/06/2025 Heart Beat 50.00 01/06/2025 Respiratory Rate 16.00 01/06/2025 Oxygen Saturation 96.00 01/06/2025 BSA 1.88 01/06/2025 Pain Scale 1.00 01/06/2025 Weight 170.10 01/06/2025 Height 66.50 01/06/2025 BMI 27.04 01/06/2025 Intravascular Systolic 130 01/06/2025 Intravascular Diastolic 88 Notes Section * Med Onc Follow-up Note Patient Name: MARIO TAM Date Of : 1955 Today's Provider:?Tiara Coronado RN, DIRECTOR VALIDATION, MA, AOCN Date of Service:?01/20/2025 Attending Physician:?Nicole Ya (Hematology/Oncology) Referring Provider: ? HEMATOLOGY/ MEDICAL ONCOLOGY FOLLOW UP VISIT Reason for Visit Follow-up right breast cellulitis Assessment 1.?Stage IIA Right breast cancer ???(10/25/2022) treatment intent: Curative??right-sided breast cancer clinically, T1??N1 M0, invasiveductal cancer, ER negative??[very weakly positive], AK negative, HER2/augustus 3+ ?Treatment intent is curative, date of diagnosis??10/23/2022 ???Details in HPI, [facility]P??stopped early due to toxicity ???Pathological CR, received??pertuzumab??and trastuzumab??as adjuvant ??? ER 1 to 5%, decided against??endocrine therapy ???(01/11)??mammogram:??No??evidence for malignancy. 2. Chronic myelogenous leukemia ???Prior intolerance to imatinib??causing rash. ???Currently taking Nilotinib 200 mg daily, unable to tolerate 300 mg dose due to rash. ???Complete molecular remission??without adverse effects. ???(01/19/2025)??BCR -ABL???negative on 12/2024 3. ??Peripheral neuropathy ???Progressed, following Neurology 4.?? Breast Cellulitis ???(01/06/2025) focal area of redness??and tenderness to the??right lateral breast??concerning for mild cellulitis.?? Mammogram from 12/21/2024??showed no??evidence for malignancy. Started on Keflex?(01/20/2025)??right breast cellulitis resolved. ??Discoloration to the nipple has resolved although there is??still??slight paleness to the areolar complex and mild right breast lymphedema Plan 1.?? . Breast Cancer: ?Follow-up with Dr. Ya in 6 months ???Annual mammogram December 2025 ???Referral to [facility]??sees [facility]) for evaluation and management of right breast lymphedema, more in the central aspect. 2.? CML: ??? Continue?? Nilotinib 200 mg daily ???Follow-up with Dr. Ya in 6 months??(to be ordered when she returns in 2 weeks) 3. ??Peripheral neuropathy: ???Work-up being performed by neurology (MRI, EMG, Labs) ???Intolerant to gabapentin and pregabalin; not discussed today 4.?? Health Maintenance ??? (01/11)??mammogram:??No??evidence for malignancy. ???(11/03/2024) colonoscopy:??1 polyp removed (pathology not available for review). ??Per patient follow-up colonoscopy in 3 years Advanced Care Planning 09/03/2019- Not addressed Pain Scale on Today's Visit 0 Pain Plan on Today's Visit Date of Service: 01/20/2025 Pain Scale (0-10): 0 Pain Treatment Plan: No pain reported Comment: Smoking Status Smoking Tobacco : Never smoker; Smokeless Tobacco : Never used smokeless tobacco; Vaping : Never vaped Depression Screening Tool Status Was screened; Outcome positive: No; Screening Date: 01/20/2025; Screening Tool: PRIME [id number]; Plan: Patient declined treatment; Total depression score: 0 History of Present Illness Mario is a 67-year-old woman with??chronic myelogenous leukemia??diagnosed in May 2012, with treatment as outlined. 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 She was startedon imatinib at 400 mg daily but developed skin rash requiring treatment with a Medrol dose pack. The rash recurred after imatinib was reintroduced at 200 mg daily and it was elected to switch her to nilotinib. She has had molecular studies performed subsequently with the following results: Note she has had a rash to imatinib, hives??on scalp with higher dose of naloxone and - 09/2012- PCR transcript level at 2.1% (5.5% on international scale) - 11/2012- PCR transcript level at 0.04% (0.1% on international scale) -09/2013 no detectable transcripts -03/2014 to 04/13/23:?no detectable transcripts BREAST CANCER: Diagnosed at age 67, some??second-degree family relatives with breast cancer, no hormone replacement therapy use, abnormality was detected on??routine mammography 1.?? 10/23/2022:??Mammogram and??ultrasound performed ?Diagnostic mammogram additional views confirm a mass at 7:00 mid depth ??? Ultrasound??shows a breast area 0.8 x 0.5 0.6 cm, at??7:00, 5 cm from nipple ?Enlarged lymph node with cortical thickening up to??4 mm 2.?? 10/25/2022:??Right breast??7:00, 5 cm from nipple ??? Invasive ductal cancer ??? Grade 2 of 3 ??? LVI ?Lymph node metastatic carcinoma ??? ER negative, AK negative, HER2/augustus 3+ on??breast ??? ER low +1 to 5%, AK -0%, HER2/augustus 3+ lymph node 2.?? 12/24/2022: Ultrasound of the breast??on biopsy-proven malignancy,??measures 5 x 4 x 3 mm versus8 x 5 x 6 mm, axilla lymph node is now normal 3.?From cycle #2 had 20% dose reduction in docetaxel, provide additional 20% dose reduction ??? Reduce carboplatin to AUC of 4 due to??thrombocytopenia, was at carboplatin of AUC of 5 for cycle #2 ??? Continue current dosing for cycle #4??total of 40% dose reduction docetaxel, carbo AUC of 4 TREATMENT TO DATE: 1.?? Chemotherapy: ???11/16/22: [facility]--4 cycles and stopped and went to [facility] alone 2.?? Surgery: ???06/08/2022:??Right breast lumpectomy??right sentinel lymph node biopsy by Dr. Erickson ??? Pathology: Complete response 3.?? Maintenance therapy:?04/12/2023???present: Phesgo 4. ??Radiation therapy: ???06/03/2023 - 08/03/2023:??5000 cGy, [address] Castillo 5.?Endocrine therapy: ?Tumor??was weakly ER??positive, Dr. Ya??decided to hold off on endocrine therapy as patienthad a pathological CR Interval History Redness, warmth and discomfort to the right breast has completely resolved.?? She took Keflex, although missed a few doses. No fevers or chills.?? Concerned about ongoing discoloration of the right nipple.?? Review of Systems Remaining 14 point comprehensive review of systems within normal limits. NCCN Distress Thermometer and Problem List were collected and documented in the patient chart.?? Remarkable symptoms and concerns were discussed with the patient.?? Any additional follow-up is indicated in the plan. Past Medical and Surgical History * Depression. * History of skin rash. * Migraine headaches. * Hyperlipidemia. * Thrombocytopenia related to treatment. * History of leukopenia related to treatment, now resolved. Current Medications Medication List Name Date Propranolol Oral 24 hr Cap 12/31/2018 Bupropion hcl, po solid SR 06/26/2013 Cephalexin Oral 01/06/2025 Omeprazole Oral Delayed Release Capsule 03/01/2023 Tasigna (Nilotinib) 12/15/2024 Calcium Carbonate Oral 03/01/2023 Atorvastatin Oral 03/13/2022 Pristiq (Desvenlafaxine Oral 24 hr Tab) 09/11/2022 Tasigna (Nilotinib Oral) 06/09/2024 Sumatriptan Oral 100 mg 03/01/2023 Allergies imatinib mesylate and topiramate Family History Father???lymphoma at age 77. Mother???colon cancer at age 58. Maternal grandmother??? history of breast cancer, at age 81 Maternal grandfather???colon cancer,?at age 89. Both paternal grandparents are without a history of malignancy. She has 2 younger brothers but no sisters. She has 2 sons and 1 daughter along with 2 grandchildren. No genetic testing has been done in the family. Social History Recent , August 2022.?They in December 2021.?Unfortunately he ??in August after??an extended??hospital stay for??4??what sounds like sepsis following??a??fall, injuring his knee and back. ??She has 3 children,??2 of her children live??locally-1 son??lives on a farm near [facility]. ??Another son lives about 9 miles away near [place].?? One child lives in [place].?? She is a supportive group of friends.?? 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 Habits:?? Nonsmoker, does not drink ETOH Vital Signs Blood pressure: 132/82, Pulse: 72, Temperature: 96.8 F, Respirations: 16, O2 sat: 98%, Pain Scale: 0, Height: 66.5 in, Weight: 169.8 lb, BSA: 1.88, BMI: 27 kg/m2 Covid-19 vaccine (Moderna) (01/20/2025), Patient declined/rejected; Covid-19 vaccine (Pfizer) (03/13/2022), Patient declined/rejected; Flu vaccine - Adult (04/12/2023), Elsewhere; Flu vaccine - Adult(04/02/2019); Flu vaccine - Adult (03/06/2021); Flu vaccine - Adult (2021); Flu vaccine - Adult (2022), Not given other reason; Flu vaccine - Adult (03/23/2024), Elsewhere Performance Status ECOG or Karnofsky ECO Symptoms, but ambulatory. Restricted in physically strenuous activity, but ambulatory and able to carry out work of a light or sedentary nature (e.g., light housework, office work). (Date: 01/18/2023) Karnofsky: 100% Normal, no complaints, no evidence of disease. (Date: 01/20/2025) Physical Exam GENERAL: Patient??does not appear acutely ill, although anxious.?? Alert and oriented, mood appropriate.? ALYSSA: Pupils equal, round, reactive to light. ??Conjunctive are clear. ??Extraocular movement intact.?? LYMPH: No cervical, supraclavicular or axillary lymphadenopathy BREAST: Previously marked area to the right breast is without redness and warmth.?? Areaola complexslightly pale although color improving and the nipple is pink.?? No pain or mass with exam.?? Mild lymphedema, mainly the right central breast.? Genetics/Molecular/Biomarkers * Breast cancer, female ( Stage Date: Unknown, Stage IIA (T1b, N1, M0, G2, ER Status: Negative, AK Status: Negative, HER-2/augustus Status: Positive) Histopathologic Type: Ductal invasive carcinoma; Menopausal Status: Postmenopausal; ) * Chronic myeloid leukemia, disease (disorder) ( Stage Date: 06/24/2012, Stage Chronic Phase Date of Dx:05/2012 Disease Status: No evidence of disease; T315I Mutation: Unknown; t(9,22) at Diagnosis: Yes; First record:06/24/2012 Last record:12/31/2018 Other Migrated ICD10: C92.11 ) Additional Labs, Imaging, and Other Studies Lab Results CBC LabResults 01/06/2025 06/15/2024 05/21/2024 03/30/2024 07/05/2023 CBC WBC x 10^3/uL 4.5 4.7 4.0 3.3 RBC x 10^6/uL 3.69 (L) 4.32 3.98 3.95 NRBC % /100 wbc 0.0 0.0 0.0 0.0 HGB g/dL 12.8 13.6 12.8 11.9 HCT % 37.6 41.6 38.6 36.7 MCV fL 101.9 96.3 97.0 92.9 MCH pg 34.7 31.5 32.2 30.1 MCHC g/dL 34.0 32.7 33.2 32.4 RDW % 13.00 12.00 12.70 14.10 PLT x 10^3/uL 153 151 175 163 MPV fL 9.6 9.3 (L) 9.1 (L) 8.8 (L) Augustus % 61.5 61.4 63.2 58.6 LY % 25.4 28.3 25.7 24.3 MO % 12.7 10.1 10.8 16.2 (H) EO % 0.0 0.0 0.0 0.3 BA % 0.0 0.0 0.0 0.3 IG % 0.4 0.2 0.3 0.3 Augustus # (ANC) x 10^3/uL 2.8 2.9 2.5 2.0 LY # x 10^3/uL 1.1 1.3 1.0 0.8 MO # x 10^3/uL 0.6 0.5 0.4 0.5 EO # x 10^3/uL 0.0 0.0 0.0 0.0 BA # x 10^3/uL 0.0 0.0 0.0 0.0 IG # x 10^3/uL 0.02 0.01 0.01 0.01 Chemistries LabResults 01/06/2025 06/15/2024 05/21/2024 03/30/2024 07/05/2023 Chemistries Glucose mg/dL 88 94 126 (H) 97 BUN mg/dL 14.0 17.0 14.0 15.0 Creatinine mg/dL 1.00 1.30 (H) 1.30 (H) 1.06 Sodium mmol/L 141 140 140 143 Potassium mmol/L 4.1 4.1 3.9 4.4 Chloride mmol/L 109 (H) 106 108 (H) 109 CO2 mmol/L 27 29 24 25 Calcium mg/dL 8.9 9.6 9.1 10.4 Albumin g/dL 3.9 4.6 4.3 4.4 Total protein g/dL 6.2 (L) 6.7 6.5 6.4 Bilirubin, total mg/dL 0.8 0.9 0.7 0.5 Alkaline phosphatase U/L 79 92 126 (H) 107 AST/SGOT U/L 33 43 (H) 39 (H) 23 ALT/SGPT U/L 24 44 (H) 29 26 GFR estimate mL/min/1.73m2 60.2 44.1 (L) 44.3 (L) 56.7 (L) ? Surveys/Consents/Other Discussions Tiara Coronado RN, JOAN, MA, NORMA CC: Gabriella Marte PA-C FAX Electronically signed by Tiara Coronado RN, JOAN, SPIKE, NORMA 01/20/2025 14:00 CDT * Med Onc Follow-up Note Patient Name: MARIO TAM Date Of : 1955 Today's Provider:?Tiara Coronado RN, DIRECTOR VALIDATION, MA, AOCN Date of Service:?01/06/2025 Attending Physician:?Nicole Ya (Hematology/Oncology) Referring Provider: ? HEMATOLOGY/ MEDICAL ONCOLOGY FOLLOW UP VISIT Reason for Visit Interim visit to evaluate right breast changes Assessment 1.?Stage IIA Right breast cancer ???(10/25/2022) treatment intent: Curative??right-sided breast cancer clinically, T1??N1 M0, invasiveductal cancer, ER negative??[very weakly positive], AK negative, HER2/augustus 3+ ?Treatment intent is curative, date of diagnosis??10/23/2022 ???Details in HPI, TCHP??stopped early due to toxicity ???Pathological CR, received??pertuzumab??and trastuzumab??as adjuvant ??? ER 1 to 5%, decided against??endocrine therapy ???(01/11)??mammogram:??No??evidence for malignancy. 2. Chronic myelogenous leukemia ???Prior intolerance to imatinib??causing rash. ???Currently taking Nilotinib 200 mg daily, unable to tolerate 300 mg dose due to rash. ???Complete molecular remission??without adverse effects. 3. ??Peripheral neuropathy ???Progressed, following Neurology 4.?? Breast?? Changes ???(01/06/2025) focal area of redness??and tenderness to the??right lateral breast??concerning for mild cellulitis.?? Mammogram from 12/21/2024??showed no??evidence for malignancy. Plan 1.?? Breast Cellulitis ???Prescribed??Keflex??x 10 days ?If she develops a fever or??skin changes to the breast worsen, she will call the clinic ???Return to the clinic??in??7 to 14 days for reassessment ???She should avoid wearing an underwire bra which increases her risk for lymphedema and possible cellulitis.?? 2. Breast Cancer: ?Annual mammogram December 2025 3.? CML: ??? Continue?? Nilotinib 200 mg daily ??? Last month she was due for a routine f/u with Dr. Ya, therefore I will check routine labs today;??CBC, CMP and BCR/ABL. ???Follow-up with Dr. Ya in 6 months??(to be ordered when she returns in 2 weeks) 4. ??Peripheral neuropathy: ???Work-up being performed by neurology (MRI, EMG, Labs) ???Intolerant to gabapentin and pregabalin; not discussed today 5.?? Health Maintenance ??? (01/11)??mammogram:??No??evidence for malignancy. ???(11/03/2024) colonoscopy:??1 polyp removed (pathology not available for review). ??Per patient follow-up colonoscopy in 3 years Advanced Care Planning 09/03/2019- Not addressed Pain Scale on Today's Visit 1 Pain Plan on Today's Visit Date of Service: 01/06/2025 Pain Scale (0-10): 1 Pain Treatment Plan: Reassessment of pain at an appropriate time interval Comment: Smoking Status Smoking Tobacco : Never smoker; Smokeless Tobacco : Never used smokeless tobacco; Vaping : Never vaped Depression Screening Tool Status Was screened; Outcome positive: No; Screening Date: 03/23/2024; Screening Tool: PRIME JONES-PHQ2; Total depression score: 0 History of Present Illness Mario is a 67-year-old woman with??chronic myelogenous leukemia??diagnosed in May 2012, with treatment as outlined. 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 She was startedon imatinib at 400 mg daily but developed skin rash requiring treatment with a Medrol dose pack. The rash recurred after imatinib was reintroduced at 200 mg daily and it was elected to switch her to nilotinib. She has had molecular studies performed subsequently with the following results: Note she has had a rash to imatinib, hives??on scalp with higher dose of naloxone and - 09/2012- PCR transcript level at 2.1% (5.5% on international scale) - 11/2012- PCR transcript level at 0.04% (0.1% on international scale) -09/2013 no detectable transcripts -03/2014 to 04/13/23:?no detectable transcripts BREAST CANCER: Diagnosed at age 67, some??second-degree family relatives with breast cancer, no hormone replacement therapy use, abnormality was detected on??routine mammography 1.?? 10/23/2022:??Mammogram and??ultrasound performed ?Diagnostic mammogram additional views confirm a mass at 7:00 mid depth ??? Ultrasound??shows a breast area 0.8 x 0.5 0.6 cm, at??7:00, 5 cm from nipple ?Enlarged lymph node with cortical thickening up to??4 mm 2.?? 10/25/2022:??Right breast??7:00, 5 cm from nipple ??? Invasive ductal cancer ??? Grade 2 of 3 ??? LVI ?Lymph node metastatic carcinoma ??? ER negative, AK negative, HER2/augustus 3+ on??breast ??? ER low +1 to 5%, AK -0%, HER2/augustus 3+ lymph node 2.?? 12/24/2022: Ultrasound of the breast??on biopsy-proven malignancy,??measures 5 x 4 x 3 mm versus8 x 5 x 6 mm, axilla lymph node is now normal 3.?From cycle #2 had 20% dose reduction in docetaxel, provide additional 20% dose reduction ??? Reduce carboplatin to AUC of 4 due to??thrombocytopenia, was at carboplatin of AUC of 5 for cycle #2 ??? Continue current dosing for cycle #4??total of 40% dose reduction docetaxel, carbo AUC of 4 TREATMENT TO DATE: 1.?? Chemotherapy: ???11/16/22: [facility]--4 cycles and stopped and went to [facility] alone 2.?? Surgery: ???06/08/2022:??Right breast lumpectomy??right sentinel lymph node biopsy by Dr. Erickson ??? Pathology: Complete response 3.?? Maintenance therapy:?04/12/2023???present: Phesgo 4. ??Radiation therapy: ???06/03/2023 - 08/03/2023:??5000 cGy, [address] Castillo 5.?Endocrine therapy: ?Tumor??was weakly ER??positive, Dr. Ya??decided to hold off on endocrine therapy as patienthad a pathological CR Interval History Today??Concha??is seen in the clinic with her friend, Michelle.? This morning when she got out of the shower, she noticed??a large??red tender area to her right breast. ??Her right breast seems slightly more swollen than the left??and the areola less pink than theleft.?No palpable lumps, nipple discharge or retraction. ??She had a mammogram earlier this month which was normal. ??She denies any direct trauma to the breast.?She typically wears an underwire bra??and has??not had any issues with lymphedema. ??No enlarged lymph nodes in the neck or axilla.?? She had a cortisone injection to the right shoulder 4 months ago, no complications??postprocedure.?? No fevers, chills or recent infections. No, respiratory, GI or complaints. Continues to take??Niotinib daily, well tolerated.? Review of Systems Remaining 14 point comprehensive review of systems within normal limits. NCCN Distress Thermometer and Problem List were collected and documented in the patient chart.?? Remarkable symptoms and concerns were discussed with the patient.?? Any additional follow-up is indicated in the plan. Past Medical and Surgical History * Depression. * History of skin rash. * Migraine headaches. * Hyperlipidemia. * Thrombocytopenia related to treatment. * History of leukopenia related to treatment, now resolved. Current Medications Medication List Name Date Cephalexin Oral 01/06/2025 Pristiq (Desvenlafaxine Oral 24 hr Tab) 09/11/2022 Tasigna (Nilotinib Oral) 06/09/2024 Bupropion hcl, po solid SR 06/26/2013 Propranolol Oral 24 hr Cap 12/31/2018 Sumatriptan Oral 100 mg 03/01/2023 Atorvastatin Oral 03/13/2022 Omeprazole Oral Delayed Release Capsule 03/01/2023 Calcium Carbonate Oral 03/01/2023 Tasigna (Nilotinib) 12/15/2024 Allergies imatinib mesylate and topiramate Family History Father???lymphoma at age 77. Mother???colon cancer at age 58. Maternal grandmother??? history of breast cancer, at age 81 Maternal grandfather???colon cancer,?at age 89. Both paternal grandparents are without a history of malignancy. She has 2 younger brothers but no sisters. She has 2 sons and 1 daughter along with 2 grandchildren. No genetic testing has been done in the family. Social History Recent , August 2022.?They in December 2021.?Unfortunately he ??in August after??an extended??hospital stay for??4??what sounds like sepsis following??a??fall, injuring his knee and back. ??She has 3 children,??2 of her children live??locally-1 son??lives on a farm near [facility]. ??Another son lives about 9 miles away near [place].?? One child lives in [place].?? She is a supportive group of friends.?? 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 Habits:?? Nonsmoker, does not drink ETOH Vital Signs Blood pressure: 130/88, Pulse: 50, Temperature: 96.4 F, Respirations: 16, O2 sat: 96%, Pain Scale: 1, Height: 66.5 in, Weight: 170.1 lb, BSA: 1.88, BMI: 27.04 kg/m2 Covid-19 vaccine (Mobilitus) (03/13/2022), Patient declined/rejected; Flu vaccine - Adult (2021); Flu vaccine - Adult (04/02/2019); Flu vaccine - Adult (03/23/2024), Elsewhere; Flu vaccine - Adult (03/06/2021); Flu vaccine - Adult (2022), Not given other reason; Flu vaccine - Adult (04/12/2023), Elsewhere Performance Status ECOG or Karnofsky ECO Symptoms, but ambulatory. Restricted in physically strenuous activity, but ambulatory and able to carry out work of a light or sedentary nature (e.g., light housework, office work). (Date: 01/18/2023) Karnofsky: 100% Normal, no complaints, no evidence of disease. (Date: 01/06/2025) Physical Exam GENERAL: Patient??does not appear acutely ill, although anxious.?? Alert and oriented, mood appropriate.? ALYSSA: Pupils equal, round, reactive to light. ??Conjunctive are clear. ??Extraocular movement intact.?? LYMPH: No cervical, supraclavicular or axillary lymphadenopathy CV: Regular rate and rhythm. ??No murmurs or gallops noted. ??No edema RESP: Patient does not appear short of breath with conversation. ??Lungs clear to auscultation ABD: Positive bowel sounds, soft, nontender, no masses or organomegaly noted.? DERM: Port without evidence for infection. ??No bruising or petechiae BREAST: Large pendulous bresats. Right??breast with large area of redness and warmth to the lateralbreast, area marked with a sharpie.?? At the center there are 2 bright red dots, that may be an inoculation site from an insect bite. No bruising, areaola complex slightly pale. The area is tender with palpation, but not generalized to the breast. No palpable mass or nodules. Left breast exam benign.?? Genetics/Molecular/Biomarkers * Breast cancer, female ( Stage Date: Unknown, Stage IIA (T1b, N1, M0, G2, ER Status: Negative, AK Status: Negative, HER-2/augustus Status: Positive) Histopathologic Type: Ductal invasive carcinoma; Menopausal Status: Postmenopausal; ) * Chronic myeloid leukemia, disease (disorder) ( Stage Date: 06/24/2012, Stage Chronic Phase Date of Dx:05/2012 Disease Status: No evidence of disease; [id number] Mutation: Unknown; t(9,22) at Diagnosis: Yes; First record:06/24/2012 Last record:12/31/2018 Other Migrated ICD10: C92.11 ) Additional Labs, Imaging, and Other Studies Lab Results CBC LabResults 01/06/2025 06/15/2024 05/21/2024 03/30/2024 07/05/2023 CBC WBC x 10^3/uL 4.5 4.7 4.0 3.3 RBC x 10^6/uL 3.69 (L) 4.32 3.98 3.95 NRBC % /100 wbc 0.0 0.0 0.0 0.0 HGB g/dL 12.8 13.6 12.8 11.9 HCT % 37.6 41.6 38.6 36.7 MCV fL 101.9 96.3 97.0 92.9 MCH pg 34.7 31.5 32.2 30.1 MCHC g/dL 34.0 32.7 33.2 32.4 RDW % 13.00 12.00 12.70 14.10 PLT x 10^3/uL 153 151 175 163 MPV fL 9.6 9.3 (L) 9.1 (L) 8.8 (L) Augustus % 61.5 61.4 63.2 58.6 LY % 25.4 28.3 25.7 24.3 MO % 12.7 10.1 10.8 16.2 (H) EO % 0.0 0.0 0.0 0.3 BA % 0.0 0.0 0.0 0.3 IG % 0.4 0.2 0.3 0.3 Augustus # (ANC) x 10^3/uL 2.8 2.9 2.5 2.0 LY # x 10^3/uL 1.1 1.3 1.0 0.8 MO # x 10^3/uL 0.6 0.5 0.4 0.5 EO # x 10^3/uL 0.0 0.0 0.0 0.0 BA # x 10^3/uL 0.0 0.0 0.0 0.0 IG # x 10^3/uL 0.02 0.01 0.01 0.01 Chemistries LabResults 01/06/2025 06/15/2024 05/21/2024 03/30/2024 07/05/2023 Chemistries Glucose mg/dL 94 126 (H) 97 BUN mg/dL 17.0 14.0 15.0 Creatinine mg/dL 1.30 (H) 1.30 (H) 1.06 Sodium mmol/L 140 140 143 Potassium mmol/L 4.1 3.9 4.4 Chloride mmol/L 106 108 (H) 109 CO2 mmol/L 29 24 25 Calcium mg/dL 9.6 9.1 10.4 Albumin g/dL 4.6 4.3 4.4 Total protein g/dL 6.7 6.5 6.4 Bilirubin, total mg/dL 0.9 0.7 0.5 Alkaline phosphatase U/L 92 126 (H) 107 AST/SGOT U/L 43 (H) 39 (H) 23 ALT/SGPT U/L 44 (H) 29 26 GFR estimate mL/min/1.73m2 44.1 (L) 44.3 (L) 56.7 (L) ? Surveys/Consents/Other Discussions Tiara Coronado RN, JOAN, SPIKE, NROMA CC: Gabriella Marte PA-C FAX Electronically signed by Tiara Coronado RN, JOAN, SPIKE, NORMA 01/06/2025 14:58 CDT
--- OUTSIDE RECORDS SUMMARY | 2025-01-25 22:52 | XMS_ITS | Clinical Summary ---
Author Organization [facility] Address [facility] [place] [address] Care Team Providers Care Team Coordinator Name Role Phone Ruiz Raya MD Unavailable [phone] Gabriella Marte Primary Care Provider [phone] Allergies Active Allergy Reactions Criticality Noted Date Comments Imatinib Rash 08/25/2012 Imatinib Mesylate Rash 06/01/2021 Hydrocodone-Acetamin ophen Other - Describe In Comment Field 10/23/2016 Hallucinations Oxycodone Hallucinations 12/10/2016 Levonorgestrel-Ethin yl Estrad Runny Nose,Headache 09/10/2013 Topiramate Other - Describe In Comment Field 10/21/2009 Rapid heart beat Medications Nilotinib (TASIGNA) 200 mg cap One per day 0 013 Active Calcium Cb 2-Mag Cb 12-Vit D3 (CALCIUM MAGNESIUM + D) 500-250-200 mg-mg-unit tab Take 1 tablet by mouth once daily. Active fluticasone (50 mcg per actuation) nasal solution (FLONASE)Indications:R ecurrent sinusitis Inhale 1 [place] to both nostrils once daily. As needed. 32 g 3 022 Active desvenlafaxine succinate 100 mg extended release tabletIndications:Anxi ety and depression Take 1 Tablet (100 mg) by mouth once daily in the morning. 90 Tablet 1 025 Active propranolol ER 80 mg Cs24 Sustained-Release capsuleIndications:Alexey lucina without aura and without status migrainosus, not intractable TAKE 1 CAPSULE BY MOUTH TWICE A DAY 180 Capsule 1 025 Active buPROPion 300 mg Extended-Release tabletIndications:Anxi ety and depression Take 1 Tablet (300 mg) by mouth once daily in the morning. 90 Tablet 1 025 Active valACYclovir 500 mg tabletIndications:Herp es Take 1 Tablet (500 mg) by mouth once daily. 90 Tablet 1 025 Active polyethylene glycol-electrolyte 236-22.74-6.74 -5.86 gram suspensionIndications: Encounter for screening colonoscopy Drink 2 liters the day before the procedure and 2 liters 6 hours prior to procedure. 4000 mL 025 Active SUMAtriptan 50 mg tabletIndications:Migr sonia without aura and without status migrainosus, not intractable TAKE 1 TAB AT ONSET OF HEADACHE GIVE AT MINIMUM 2HRS APART. MAX DOSE: 200MG PER 24HRS. 10 Tablet 1 025 Active ondansetron (ZOFRAN ODT) 4 mg disintegrating tabletIndications:Migr sonia without aura and without status migrainosus, not intractable DISSOLVE ONE TABLET IN MOUTH EVERY EIGHT HOURS NEEDED FOR NAUSEA/VOMI TING 30 Tablet 1 025 Active omeprazole (PRILOSEC) 20 mg Delayed-Release capsuleIndications:THEODORA D without esophagitis TAKE 1 CAPSULE BY MOUTH EVERY DAY BEFORE MEALS 90 Capsule 025 Active atorvastatin (LIPITOR) 20 mg tabletIndications:Pure hypercholesterolemia TAKE 1 TABLET BY MOUTH AT BEDTIME 90 Tablet 025 Active cephalexin 500 mg capsule Take 1 Capsule by mouth. 025 Active atorvastatin (LIPITOR) 20 mg tabletIndications:Pure hypercholesterolemia TAKE 1 TABLET BY MOUTH AT BEDTIME 90 Tablet 2 024 2024 Discontinued Active Problems Problem Noted Date Diagnosed Date Colon polyp 09/18/2024 Overview (09/18/2024): Colonoscopy 08/2024 large SSA, repeat in 3 years Infiltrating ductal carcinoma of right breast Family hx of colon cancer 04/25/2022 Overview (09/16/2024): 08/2024 - repeat in Next due on 09/15/2029 Anxiety and depression 03/12/2021 Chronic seasonal allergic rhinitis due to pollen 03/09/2021 Glenohumeral arthritis, right 05/25/2019 Rotator cuff tendinitis, right 02/20/2019 Chronic bilateral low back pain with bilateral s ciatica 02/25/2017 GERD without esophagitis 09/20/2016 Migraine without aura and wi thout status migrainosus, not intractable 01/13/2016 ADD (attention deficit disorder) 01/13/2016 Pure hypercholesterolemia 01/13/2016 CML (chronic myelocytic leukemia) 01/13/2016 Resolved Problems Problem Noted Date Diagnosed Date Resolved Date Infiltrating ductal carcinoma of right breast 05/13/20 23 07/15/2023 Overview (07/15/2023): Invasive right breast invasive ductal carcinoma with one positive lymph node Chemo , lumpectomy and Finished radiation COVID-19 virus infection 08/21/202011/2021 Overview (08/21/2020): 04/2020 Acute left-sided low back pa in with left-sided sciatica 02/25/2017 02/25/2017 Displacement of lumbar inter vertebral disc without myelopathy 10/18/2016 03/12/2021 Mild depression 09/20/2016 03/12/2021 Overview (05/20/2020): PHQ Depression Screening 06/29/2019 Date of PHQ exam (doc flow) 06/29/2019 1. Lack of interest/pleasure 0 - Not at all 2. Feeling down/depressed 0 - Not at all PHQ-2 TOTAL SCORE 0 3. Trouble sleeping 0 - Not at all 4. Decreased energy 1 - Several days 5. Appetite change 0 - Not at all 6. Feelings of failure 0 - Not at all 7. Trouble concentrating 0 - Not at all 8. Activity level 0 - Not at all 9. Hurting yourself 0 - Not at all PHQ-9 TOTAL SCORE 1 PHQ-9 Severity Level none Functional Impairment not difficult at all Family hx of colon cancer 09/20/2016 Overview (09/20/2016): Colonoscopy every 5 year - done 2016 Allergic rhinitis 01/13/2016 09/20/2016 Unspecified gastritis and ga stroduodenitis without mention of hemorrhage 01/13/2016 09/20/2016 Depressive disorder, not elsewhere classified 01/13/20 16 09/20/2016 Tremor 01/13/2016 09/20/2016 Sciatica 01/13/2016 09/20/2016 Paresthesia of foot 01/13/2016 09/21/19 17 Acute pansinusitis, unspecified 01/13/2016 08/28/2017 Acute pansinusitis, unspecified 07/04/2015 09/20/2016 MMT (medial meniscus tear) 07/22/2014 0 09/20/2016 Encounters Date Type Department Care Team Description 01/13/2025 9:10 AM CDT Office Visit [facility] [address] [place] [address] Naveed Thorpe MD Hand Pain/problem (1 week R thumb pain, swelling ) 01/13/2025 Travel 12/25/2024 [place] [facility] [address] [place] [address] Gabriella Marte PA Refill Request (Atorvastatin) 12/21/2024 10:40 AM CDT Ancillary Procedure [facility] [address] [facility] [address] [place] [address] 12/20/2024 Travel 11/28/2024 [place] [facility] [address] [place] [address] Gabriella Marte PA Refill Request (Omeprazole) 11/25/2024 Refill [place] [phone] [facility] [address] [place] [address] Gabriella Marte PA Refill Request (Ondansetron) 11/24/2024 1:39 PM CDT - 11/24/2024 3:14 PM CDT Emergency [facility] [address] [place] [address] Jacqueline Lim PA Trembley, Lauren C, Screen Tender Injury of head, initial encounter (Primary Dx); Fall, initial encounter Discharge Disposition: Home Self Care 11/23/2024 Nurse Triage [facility] [address] [place] [address] Gabriella Marte PA Neurologic Problem 11/01/2024 [place] [facility] [address] [place] [address] Gabriella Marte PA Refill Request (Sumatriptan) from Last 3 Months Immunizations Immunization Administration Dates Next Due Influenza, IIV3 (Age >=3 years) 03/26/20 18,03/22/2013,03/13/2012,2011,03/31/2010 Influenza, IIV4 02/25/2017, 6,04/19/2015,2013 Influenza, Inactivated AIIV4 (Age 65+ Years) Preserv Free 03/14/2023,03/06/2021,03/06/2021,2019 Influenza, Inactivated IIV3 (Age 65+ Years) Preserv Free 03/03/2024,03/20/2019 Pneumococcal Poly,23-Valent (Pneumovax) 03/13/2021 Pneumococcal conj 13-Valent (Prevnar 13) 02/10/2019 Td (Age >=7 Years) 04/30/2018,01/27/1998 Tdap 02/23/2008 Family History Medical History Relation Name Comments Cancer-colon Brother 40s Good Health Child child Cancer Father lymphoma Heart Disease Father CAD Other Father depression/park insons/dementia Stroke Father Cancer-colon Maternal Grandfather Glaucoma Maternal Grandfather Glaucoma Maternal Grandmother Cancer-colon Mother 60s Heart Disease Mother pacemaker Stroke Mother Relation Name Status Comments Brother Child child Alive x3 Father (Age 2016) Maternal Grandfather Maternal Grandmother Mother Alive Other siblings Alive x2 Paternal Grandfather Paternal Grandmother Social History Tobacco Use Types Packs/Day Years Used Date Smoking Tobacco: Never Smokeless Tobacco: Never Tobacco Cessation:Counseling Given: No Alcohol Use Standard Drinks/Week Comments Yes 0 (1 standard drink = 0.6 oz pure alcohol) 0-1 drinks per week (wine or liquor)- updated 1/2/25 PHQ-2 Answer Date Recorded PHQ-2 TOTAL SCORE 2 05/21/2024 Social Connections Answer Date Recorded Do you often feel lonely or isolated from those around you? 0 10/28/2023 Financial Resource Strain Answer Date R ecorded Difficulty of Paying Living Expenses 3 10/28/2023 Difficulty of Paying Living Expenses Not on file 10/28/2023 Food Insecurity Answer Date Recorded Do you worry your food will run out before you are able to buy more? 1 10/28/2023 Transportation Needs Answer Date Record ed Does lack of transportation keep you from medica l appointments? 1 10/28/2023 Does lack of transportation keep you from work, meetings or getting things that you need? 1 10/28/2023 Housing Stability Answer Date Recorded What is your housing situation today? 1 10/28/2023 Utilities Answer Date Recorded Do you have trouble paying f or utilities (for example, heat, electricity, water, phone)? 1 10/28/2023 Comments No Sex and Gender Information Value Date Recorded Sex Assigned at Female 08/07/2021 11:06 AM CDT Legal Sex Female 7:51 AM SERVOMECHANISM DESIGNER Gender Identity Female 08/07/2021 11:06 AM CDT Sexual Orientation Straight 08/07/2021 11 :06 AM CDT Occupation Industry Job Start Date Job End Date not working Not on file Not on file Not on file Obstetrics History Para Term AB IAB SAB Ectopic Multiple Livin g Live Births 3 3 Date Outcome GA Total Labor Labor/2nd/3rd Weight Sex Type Anes PTL Maliha A1 A5 Name Clin Last Filed Vital Signs Vital Sign Reading Time Taken Comments Blood Pressure 116/72 01/13/2025 9:06 AM CDT Pulse 71 01/13/2025 9:06 AM CDT Temperature 36.8 C (98.3 F) 11/24/2024 1:48 PM CDT Respiratory Rate 16 11/24/2024 1:48 PM CDT Oxygen Saturation 99% 01/13/2025 9:06 AM CDT Inhaled Oxygen Concentration - - Weight 76.5 kg (168 lb 11.2 oz) 01/13/2025 9:06 AM CDT Height 165.1 cm (5' 5) 09/03/2024 10:4 0 AM CDT Body Mass Index 28.07 09/03/2024 10:40 AM CDT Plan of Treatment Upcoming Encounters Date Type Department Care Team (Late st Contact Info) Description 01/26/2025 9:35 AM CDT Phone Office Visit [facility] [address] [place], [place] [phone] [place] [address] [place], [place] [phone] 03/08/2025 10:50 AM CDT Office Visit [address] [place] [place] [phone] Gabriella Marte PA [address] [place] [address] [address] [place] [address] Health Maintenance Due Date Last Done Comments COVID-19 vaccine series (#1) 1959 Zoster (shingles) series for age 50+ (1 of 2) 1973 RSV vaccine for adults or (1 - Risk 60-74 years 1-dose series) 2014 Influenza Vaccine (#1) 2025 , 03/14/2023, 03/06/2021, Additional history exists Depression screening for age 12+ 05/21/2025 05/21/2024, 07/15/2023, 05/14/2023, Additional history exists Medicare Wellness for age 65+ 05/22/2025 05/21/2024, 05/14/2023, 08/22/2020 BMI (ht and wt on same day) for age 18+ 09/03/2025 09/03/2024, 05/21/2024, 04/07/2024, Additional history exists Mammogram for age 45-75 12/21/2025 12/22/19, 11/05/2023, 10/25/2022, Additional history exists Colonoscopy through age 75 09/16/202709/15, 11/14/2015, 11/14/2015, Additional history exists Tetanus booster 04/30/2028 04/30/2018, 10/2007, 01/27/1998 Lipids for age 45-75 05/21/2029 05/21/2024, 05/14/2023, 10/24/2021, Additional history exists Hepatitis C screening for age 18-79 Completed 04/29/2013 Pneumococcal series for age 50+ Completed 03/13/2021, 02/10/2019 DEXA/DXA scan for age 65+ Completed 06/07/2022 Hepatitis B series for 19+ Aged Out N o longer eligible based on patient's age to complete this topic Procedures Procedure Name Priority Date/Time Associated Diagnosis Comments XR MAMMO YO BILAT SCREEN Routine 12/21/2024 10:55 AM CDT Visit for screening mammogram CT HEAD BRAIN WO STAT 11/24/2024 2:59 PM CDT COLONOSCOPY SCREENING Routine 09/15/2024 12:00 AM CDT Screening for colon cancer LIPID PANEL W REFLEX MEASURED LDL Routine 05/21/2024 12:23 PM SERVOMECHANISM DESIGNER Pure hypercholesterolemia XR DXA BONE DENSITY 2 SITES AXIAL Routine 06/07/2022 12:02 PM SERVOMECHANISM DESIGNER Menopause ANTI HCV Routine 04/29/2013 4:07 PM SERVOMECHANISM DESIGNER Paresthesia from Last 3 Months or Most Recently Relevant to Health Maintenance Results * XR MAMMO YO BILAT SCREEN (12/21/2024 10:55 AM CDT) Anatomical Region Laterality Modality BREASTS, Breast Left, Breast Right Bilateral Mammography Impressions 12/21/2024 3:35 PM CDT There is no radiographic evidence for malignancy. Recommend annual mammograms. MAMMOGRAM ASSESSMENT: ACR 2 Benign PATIENTS: You will also receive a letter with your examination results in an easy to read format. If you have questions about your results, please contact your referring provider. Narrative 12/21/2024 3:35 PM CDT For Patients: As a result of the Cures Act, medical imaging exams and procedure reports are released immediately into your electronic medical record. You may view this report before your referring provider. If you have questions, please contact your health care provider. XR MAMMO YO BILAT SCREEN [[id number]] CLINICAL HISTORY: This is an asymptomatic 69 y.o. patient. INDICATION FOR EXAM: Mammogram Screening. TECHNIQUE: CC and MLO views were obtained. This study was evaluated with the assistance of Computer-Aided Detection. Breast Tomosynthesis was used in interpretation. COMPARISON FILMS: Yes 11/05/23 [facility] FINDINGS: There are scattered areas of fibroglandular density. No suspicious masses or microcalcifications. There are post surgical changes of right breast. us Gabriella CEDILLO MAMMO Final Res ult * CT HEAD BRAIN WO (11/24/2024 2:59 PM CDT) Anatomical Region Laterality Modality HEAD, BRAIN Computed Tomogra phy 11/24/2024 2:59 PM CDT Impressions 11/24/2024 3:06 PM CDT 1. No evidence of acute intracranial hemorrhage. 2. No evidence of acute calvarial fracture. Narrative 11/24/2024 3:06 PM CDT For Patients: As a result of the Century Cures Act, medical imaging exams and procedure reports are released immediately into your electronic medical record. You may view this report before your referring provider. If you have questions, please contact your health care provider. EXAM: CT HEAD BRAIN WO LOCATION: [facility] DATE: 11/24/2024 INDICATION: Trauma, pain. COMPARISON: CT 07/15/2024. TECHNIQUE: Routine CT Head without IV contrast. Multiplanar reformats. Dose reduction techniques were used. FINDINGS: INTRACRANIAL CONTENTS: No intracranial hemorrhage, extraaxial collection, or mass effect. No CT evidence of acute infarct. Unremarkable parenchymal attenuation. Age-appropriate ventricles and sulci. The sella is unremarkable for technique. The cerebellar tonsils are appropriately positioned. VISUALIZED ORBITS/SINUSES/MASTOIDS: No intraorbital abnormality. Right ethmoid air cell opacification. No middle ear or mastoid effusion. BONES/SOFT TISSUES: No scalp hematoma. No skull fracture. Procedure Note Arash Stokes MD - 11/24/2024 For Patients: As a result of the Century Cures Act, medical imagingexams and procedure reports are released immediately into your electronicmedical record. You may view this report before your referring provider.If you have questions, please contact your health care provider. EXAM: CT HEAD BRAIN WO LOCATION: [facility] [place] DATE: 11/24/2024 INDICATION: Trauma, pain. COMPARISON: CT 07/15/2024. TECHNIQUE: Routine CT Head without IV contrast. Multiplanar reformats.Dose reduction techniques were used. FINDINGS: INTRACRANIAL CONTENTS: No intracranial hemorrhage, extraaxial collection,or mass effect. No CT evidence of acute infarct. Unremarkable parenchymalattenuation. Age-appropriate ventricles and sulci. The sella isunremarkable for technique. The cerebellar tonsils are appropriatelypositioned. VISUALIZED ORBITS/SINUSES/MASTOIDS: No intraorbital abnormality. Rightethmoid air cell opacification. No middle ear or mastoid effusion. BONES/SOFT TISSUES: No scalp hematoma. No skull fracture. IMPRESSION: 1. No evidence of acute intracranial hemorrhage. 2. No evidence of acute calvarial fracture. Jacqueline CEDILLO CT Final Resu lt * COLONOSCOPY SCREENING [[id number]] (09/15/2024 12:00 AM CDT) Gabriella CEDILLO GI PROCEDURE ORD Final Re sult * (ABNORMAL) LIPID PANEL W REFLEX MEASURED LDL (05/21/2024 12:23 PM SERVOMECHANISM DESIGNER) CHOLESTEROL, TOTAL 203(H) <200 mg/dL [facility] HDL CHOLESTEROL 80 > OR = 50 mg/dL [facility] TRIGLYCERIDES 98 <150 mg/dL [facility] LDL-CHOLESTEROL 104(H) mg/dL (calc) [facility] Comment: Reference range: <100 Desirable range <100 mg/dL for primary prevention; <70 mg/dL for patients with CHD or diabetic patients with > or = 2 CHD risk factors. LDL-C is now calculated using the Maurizio calculation, which is a validated novel method providing better accuracy than the Friedewald equation in the estimation of LDL-C. Franco YOO et al. LINDA. 2013;310(19): 8965-5634 (http://education.Identyx/faq/COV911) CHOL/HDLC RATIO 2.5 <5.0 (calc) [facility] NON HDL CHOLESTEROL 123 <130 mg/dL (calc) [facility] Comment: For patients with diabetes plus 1 major ASCVD risk factor, treating to a non-HDL-C goal of <100 mg/dL (LDL-C of <70 mg/dL) is considered a therapeutic option. Blood BLOOD SPECIMEN / Unknown 05/21/2024 12:23 PM SERVOMECHANISM DESIGNER 05/21/2024 12:24 PM SERVOMECHANISM DESIGNER Narrative [facility] - 05/22/2024 5:22 AM SERVOMECHANISM DESIGNER FASTING:YES FASTING: YES Gabriella CEDILLO CHEMISTRY Final Res ult [facility] [address] [place] [address], [facility] [address] [place] [address] * XR DXA BONE DENSITY 2 SITES AXIAL (06/07/2022 12:02 PM SERVOMECHANISM DESIGNER) Anatomical Region Laterality Modality Spine, HIPS, HIPL, HIPR Other 06/07/2022 12:0 2 PM SERVOMECHANISM DESIGNER Impressions 06/07/2022 1:30 PM SERVOMECHANISM DESIGNER IMPRESSION: NORMAL. Bone mineral density measurements are within normal limits using T score. Narrative 06/07/2022 1:30 PM SERVOMECHANISM DESIGNER EXAM: BONE DENSITY LOCATION: [facility] DATE/TIME: 06/07/2022 12:02 PM INDICATION: Postmenopausal COMPARISON: None. TECHNIQUE: Dual-energy x-ray absorptiometry performed with routine technique. FINDINGS: Lumbar Spine: L1-L4: BMD: 1.151 g/cm2. T-score: 0.9. Z-score: 2.9 RIGHT Hip Total: BMD: 0.896 g/cm2. T-score: -0.4. Z-score: 1.0 RIGHT Hip Femoral neck: BMD: 0.739 g/cm2. T-score: -1.0. Z-score: 0.7 LEFT Hip Total: BMD: 0.893 g/cm2. T-score: -0.4. Z-score: 1.0 LEFT Hip Femoral neck: BMD: 0.753 g/cm2. T-score: -0.9. Z-score: 0.8 WHO Criteria: Normal: T score at or above -1 SD Osteopenia: T score between -1 and -2.5 SD Osteoporosis: T score at or below -2.5 SD COMPARISON: None FRAX Results: Not applicable due to normal bone mineral density. Procedure Note Lynn Pearson PA - 06/07/2022 EXAM: BONE DENSITY LOCATION: [facility] DATE/TIME: 06/07/2022 12:02 PM INDICATION: Postmenopausal COMPARISON: None. TECHNIQUE: Dual-energy x-ray absorptiometry performed with routine technique. FINDINGS: Lumbar Spine: L1-L4: BMD: 1.151 g/cm2. T-score: 0.9. Z-score: 2.9 RIGHT Hip Total: BMD: 0.896 g/cm2. T-score: -0.4. Z-score: 1.0 RIGHT Hip Femoral neck: BMD: 0.739 g/cm2. T-score: -1.0. Z-score: 0.7 LEFT Hip Total: BMD: 0.893 g/cm2. T-score: -0.4. Z-score: 1.0 LEFT Hip Femoral neck: BMD: 0.753 g/cm2. T-score: -0.9. Z-score: 0.8 WHO Criteria: Normal: T score at or above -1 SD Osteopenia: T score between -1 and -2.5 SD Osteoporosis: T score at or below -2.5 SD COMPARISON: None FRAX Results: Not applicable due to normal bone mineral density. IMPRESSION: IMPRESSION: NORMAL. Bone mineral density measurements are within normal limits using T score. Gabriella CEDILLO DEXA Final Res ult * ANTI HCV (04/29/2013 4:07 PM SERVOMECHANISM DESIGNER) ANTI HCV Non-reacti ve [facility] Blood specimen (specimen) BLOOD SPECIMEN / Unknown 04/29/2013 4:07 PM SERVOMECHANISM DESIGNER 04/29/2013 3:27 PM SERVOMECHANISM DESIGNER us Fabricio Demarco MD SEND OUTS Final Resul t [facility] INTERNAL ZIP [id number] [place] [phone] from Last 3 Months or Most Recently Relevant to Health Maintenance Insurance [employer] AET MR [employer] A[employer] MR [employer] Advance Directives * Full Code (Latest Code Status on File) Date Activated Date Inactivated Comments 10/18/2016 7:03 PM 10/19/2016 3:55 PM * Full Code Date Activated Date Inactivated Comments 10/18/2016 11:26 AM 10/18/2016 7:02 PM Care Teams Team Coordinator Relationship Specialty Start Date End Date Gabriella Marte PA [address] [place] [address] [place] [address] PCP - General Physician Dumpster Driver 07/29/24 Ruiz Raya MD Oncology Pathology - Hematology 12/12/12
--- OUTSIDE RECORDS SUMMARY | 2025-01-25 22:53 | XMS_ITS ---
Author Name Interface, L4Wvelvjj lity Address [address] [address] [facility] On[facility] Address [address] [address] Allergies and Adverse Reactions Medication/Group Name Reaction Severity Date imatinib mesylate 01/20/2025 topiramate 01/20/2025 Plan Date Type Value 01/20/2025 APPOINTMENT OV 30 MIN 01/06/2025 APPOINTMENT OV 30 MIN 01/06/2025 APPOINTMENT LAB 15 MIN 06/15/2024 APPOINTMENT PBR 30 MIN 06/15/2024 APPOINTMENT OV 20 MIN 06/15/2024 APPOINTMENT LAB 15 MIN 03/23/2024 APPOINTMENT OV 30 MIN 12/13/2023 APPOINTMENT OV 20 MIN 12/03/2023 APPOINTMENT LAB 15 MIN 12/03/2023 APPOINTMENT PORT DRAW 15 MIN 11/08/2023 APPOINTMENT TREATMENT 30 MIN 10/18/2023 APPOINTMENT TREATMENT 30 MIN 09/27/2023 APPOINTMENT PBR 15 MIN 09/27/2023 APPOINTMENT TREATMENT 30 MIN 09/27/2023 APPOINTMENT OV 30 MIN 09/06/2023 APPOINTMENT TREATMENT 30 MIN 08/16/2023 APPOINTMENT BV PHESGO 08/16/2023 APPOINTMENT TREATMENT 30 MIN 07/26/2023 APPOINTMENT BV PHESGO 07/05/2023 APPOINTMENT TREATMENT 30 MIN 07/05/2023 APPOINTMENT OV 20 MIN 07/05/2023 APPOINTMENT PORT DRAW 15 MIN 06/14/2023 APPOINTMENT TREATMENT 30 MIN 06/04/2023 APPOINTMENT TREATMENT 2 HR 06/04/2023 APPOINTMENT PORT DRAW 15 MIN 05/24/2023 APPOINTMENT TREATMENT 30 MIN 05/03/2023 APPOINTMENT TREATMENT 30 MIN 04/12/2023 APPOINTMENT TREATMENT 2 HR 04/12/2023 APPOINTMENT OV 20 MIN 03/22/2023 APPOINTMENT TREATMENT 2 HR 03/13/2023 APPOINTMENT RETIREMENT FOLLOW UP 20 MIN 03/13/2023 APPOINTMENT LAB 10 MIN 03/01/2023 APPOINTMENT PORT DRAW 15 MIN 03/01/2023 APPOINTMENT TREATMENT 2 HR 03/01/2023 APPOINTMENT OV 30 MIN 02/19/2023 APPOINTMENT HYDRATION 2 HR 02/12/2023 APPOINTMENT HYDRATION 2 HR 02/08/2023 APPOINTMENT PORT DRAW 15 MIN 02/08/2023 APPOINTMENT TREATMENT 4 HR 02/08/2023 APPOINTMENT OV 20 MIN 02/07/2023 APPOINTMENT TREATMENT 2 HR 02/05/2023 APPOINTMENT HYDRATION 2 HR 02/05/2023 APPOINTMENT OV 30 MIN 02/05/2023 APPOINTMENT PORT DRAW 15 MIN 02/04/2023 APPOINTMENT OUTSIDE TEST 5 M IN 01/31/2023 APPOINTMENT HYDRATION 2 HR 01/30/2023 APPOINTMENT HYDRATION 2 HR 01/29/2023 APPOINTMENT HYDRATION 2 HR 01/24/2023 APPOINTMENT HYDRATION 2 HR 01/24/2023 APPOINTMENT HYDRATION 2 HR 01/23/2023 APPOINTMENT HYDRATION 2 HR 01/18/2023 APPOINTMENT TREATMENT 5 HR 01/18/2023 APPOINTMENT OV 20 MIN 01/18/2023 APPOINTMENT PORT DRAW 15 MIN 01/14/2023 APPOINTMENT HYDRATION 2 HR 01/08/2023 APPOINTMENT TREATMENT 2 HR 01/04/2023 APPOINTMENT HYDRATION 2 HR 01/03/2023 APPOINTMENT HYDRATION 2 HR 01/01/2023 APPOINTMENT HYDRATION 2 HR 12/28/2022 APPOINTMENT TREATMENT 5 HR 12/27/2022 APPOINTMENT OV 20 MIN 12/27/2022 APPOINTMENT PORT DRAW 15 MIN 12/24/2022 APPOINTMENT OUTSIDE TEST 5 M IN 12/19/2022 APPOINTMENT OUTSIDE TEST 5 M IN 12/14/2022 APPOINTMENT HYDRATION 2 HR 12/13/2022 APPOINTMENT OV 30 MIN 12/13/2022 APPOINTMENT HYDRATION 2 HR 12/13/2022 APPOINTMENT OV 30 MIN 12/13/2022 APPOINTMENT PORT DRAW 15 MIN 12/12/2022 APPOINTMENT TREATMENT 2 HR 12/07/2022 APPOINTMENT TREATMENT 5 HR 12/07/2022 APPOINTMENT LAB 15 MIN 12/03/2022 APPOINTMENT OV 20 MIN 12/03/2022 APPOINTMENT OUTSIDE TEST 5 M IN 11/29/2022 APPOINTMENT HYDRATION 2 HR 11/28/2022 APPOINTMENT PORT DRAW 15 MIN 11/28/2022 APPOINTMENT OUTSIDE TEST 5 M IN 11/28/2022 APPOINTMENT OV 30 MIN 11/27/2022 APPOINTMENT PORT DRAW 15 MIN 11/27/2022 APPOINTMENT TREATMENT 2 HR 11/27/2022 APPOINTMENT LAB 15 MIN 11/27/2022 APPOINTMENT HYDRATION 2 HR 11/27/2022 APPOINTMENT LAB 15 MIN 11/23/2022 APPOINTMENT OV 30 MIN 11/23/2022 APPOINTMENT LAB 15 MIN 11/22/2022 APPOINTMENT OUTSIDE TEST 5 M IN 11/21/2022 APPOINTMENT LAB 15 MIN 11/21/2022 APPOINTMENT OV 30 MIN 11/21/2022 APPOINTMENT HYDRATION 2 HR 11/21/2022 APPOINTMENT PORT DRAW 15 MIN 11/21/2022 APPOINTMENT PORT DRAW 15 MIN 11/16/2022 APPOINTMENT TREATMENT 5 HR 11/09/2022 APPOINTMENT SURVIVORSHIP 90 MIN 11/09/2022 APPOINTMENT TELMED SURVIVOR CONSULT 90 MIN 11/08/2022 APPOINTMENT FORM 15 MIN 11/06/2022 APPOINTMENT RECONSULT 20 MIN 11/06/2022 APPOINTMENT LAB 10 MIN 09/11/2022 APPOINTMENT RECONSULT 20 MIN 09/11/2022 APPOINTMENT LAB 15 MIN 03/13/2022 APPOINTMENT LAB 15 MIN 03/13/2022 APPOINTMENT OV 30 MIN 08/23/2021 APPOINTMENT LAB 15 MIN 08/23/2021 APPOINTMENT OV 20 MIN 03/07/2021 APPOINTMENT RC - 11 6 MONTH RC ARM - 11 6 MONTH RC ARM 03/07/2021 APPOINTMENT RC - 11 6 MONTH RC ARM - 11 6 MONTH RC ARM 03/06/2021 APPOINTMENT RC - 11 6MO RC/A RM - R/S 03/07 W/11 03/06/2021 APPOINTMENT RC - 11 6MO RC/A RM - R/S 03/07 W/11 08/30/2020 APPOINTMENT RC - 11 6 MONTH RC ARM DRAW - 11 6 MONTH RC ARM DRAW 08/30/2020 APPOINTMENT RC - 11 6 MONTH RC ARM DRAW - 11 6 MONTH RC ARM DRAW 06/15/2020 APPOINTMENT RC - 11 6MO RC W /LABS - 11 6MO RC W/LABS 02/10/2020 APPOINTMENT RC - 11 ARM - RE CHECK - 11 ARM - RECHECK 02/10/2020 APPOINTMENT RC - 11 ARM - RE CHECK - 11 ARM - RECHECK 12/22/2019 APPOINTMENT RC - 11 3MO RC - ARM 12/22/2019 APPOINTMENT RC - 11 3MO RC - ARM 09/03/2019 APPOINTMENT RC - 11 - 3 [facility] 09/03/2019 APPOINTMENT MICHEAL - 11 - 3 [facility] HS 09/03/2019 APPOINTMENT PHONE - 11 3 MO RC - PHONE VISIT 06/01/2019 APPOINTMENT RC - 11 RC - 2 M [facility] 06/01/2019 APPOINTMENT MICHEAL - 11 - 2 [facility] HS 05/27/2019 APPOINTMENT LAB - 11 ARM - P ER PT REQUEST 04/02/2019 APPOINTMENT RC - 11 RC - 11 05/27/2019 LABORDER BCR-ABL by PCR q uantitative 05/27/2019 LABORDER CMP 05/27/2019 LABORDER CBC w/ auto diff 09/03/2019 LABORDER CMP 09/03/2019 LABORDER CBC w/ auto diff 09/03/2019 LABORDER BCR-ABL by PCR q uantitative 02/10/2020 LABORDER CMP 02/10/2020 LABORDER CBC w/ auto diff 02/10/2020 LABORDER BCR-ABL by PCR q uantitative 08/30/2020 LABORDER CBC w/ auto diff 08/30/2020 LABORDER BCR-ABL by PCR q uantitative 08/30/2020 LABORDER CMP 03/06/2021 LABORDER BCR-ABL by PCR q uantitative 03/06/2021 LABORDER CBC w/ auto diff 03/06/2021 LABORDER CMP 08/23/2021 LABORDER CMP 08/23/2021 LABORDER CBC w/ auto diff 08/23/2021 LABORDER BCR-ABL by PCR q uantitative 03/13/2022 LABORDER BCR-ABL p210 pineda ntitative 03/13/2022 LABORDER CMP 03/13/2022 LABORDER CBC w/ auto diff 09/11/2022 LABORDER BCR-ABL p210 pineda ntitative 09/11/2022 LABORDER CMP 09/11/2022 LABORDER CBC w/ auto diff 11/16/2022 LABORDER iSTAT creatinine panel 11/16/2022 LABORDER CMP 11/16/2022 LABORDER CBC w/ auto diff 11/21/2022 LABORDER CMP 11/21/2022 LABORDER CBC w/ auto diff 11/27/2022 LABORDER CBC w/ auto diff 11/27/2022 LABORDER iSTAT creatinine panel 11/27/2022 LABORDER iSTAT Na+/K+/Cl- panel 11/28/2022 LABORDER CBC w/ auto diff 12/03/[address] chest/abdomen /pelvis w/o contrast 12/07/2022 LABORDER iSTAT creatinine panel 12/07/2022 LABORDER CBC w/ auto diff 12/07/2022 LABORDER CMP 12/07/2022 LABORDER CBC w/ auto diff 12/12/2022 LABORDER iSTAT Na+/K+/Cl- panel 12/12/2022 LABORDER CBC w/ auto diff 12/24/2022 LABORDER U/S 12/27/2022 LABORDER CBC w/ auto diff 12/27/2022 LABORDER iSTAT creatinine panel 12/27/2022 LABORDER CMP 01/18/2023 LABORDER iSTAT creatinine panel 01/18/2023 LABORDER CBC w/ auto diff 01/18/2023 LABORDER CMP 01/18/2023 LABORDER U/S 01/29/2023 LABORDER CBC w/ auto diff 01/29/2023 LABORDER iSTAT Na+/K+/Cl- panel 02/05/2023 LABORDER Clostridium diff icile toxin PCR panel 02/05/2023 LABORDER iSTAT Na+/K+/Cl- panel 02/05/2023 LABORDER CBC w/ auto diff 02/05/2023 LABORDER Magnesium Panel 02/05/2023 LABORDER iSTAT creatinine panel 02/07/2023 LABORDER iSTAT creatinine panel 02/07/2023 LABORDER iSTAT Na+/K+/Cl- panel 02/07/2023 LABORDER Magnesium Panel 02/08/2023 LABORDER iSTAT creatinine panel 02/08/2023 LABORDER CBC w/ auto diff 02/08/2023 LABORDER CMP 02/12/2023 LABORDER CBC w/ auto diff 02/12/2023 LABORDER iSTAT Na+/K+/Cl- panel 02/12/2023 LABORDER Magnesium Panel 03/01/2023 LABORDER CMP 03/01/2023 LABORDER CBC w/ auto diff 03/13/2023 LABORDER CMP 03/13/2023 LABORDER BCR/ABL1 Quant 03/13/2023 LABORDER CBC w/ auto diff 04/12/2023 LABORDER BCR/ABL1 Quant 04/12/2023 LABORDER CBC w/ auto diff 04/12/2023 LABORDER CMP 06/04/2023 LABORDER CBC w/ auto diff 06/04/2023 LABORDER iSTAT K+ panel 07/05/2023 LABORDER CBC w/ auto diff 07/05/2023 LABORDER CMP 09/27/2023 LABORDER Mammogram, 3D wi th tomosynthesis 10/03/2023 LABORDER Mammogram, 3D wi th tomosynthesis 12/03/2023 LABORDER CBC w/ auto diff 12/03/2023 LABORDER CMP 12/03/2023 LABORDER BCR/ABL1 Quant 06/15/2024 LABORDER CMP 06/15/2024 LABORDER CBC w/ auto diff 06/15/2024 LABORDER BCR/ABL1 Quant 01/06/2025 LABORDER CMP 01/06/2025 LABORDER CBC w/ auto diff 01/06/2025 LABORDER BCR/ABL1 Quant Reason for Visit OV 30 MIN Encounters Date Name 04/02/2019 Acute pharyngitis 04/02/2019 Breast cancer, femal e 04/02/2019 Vicky intertrigo ( disorder) 04/02/2019 Cellulitis of breast (disorder) 04/02/2019 Chronic myeloid leuk emia, disease (disorder) 04/02/2019 Counseling 04/02/2019 Dehydration 04/02/2019 Diarrhea caused by d rug (disorder) 04/02/2019 Drug-induced nausea and vomiting (disorder) 04/02/2019 Drug-induced neutrop enia (disorder) 04/02/2019 Estrogen receptor ne gative status [ER-] 04/02/2019 Hypokalemia (disorde r) 04/02/2019 Limited range of mot ion 04/02/2019 Lower extremity elie a 04/02/2019 Lymphedema 04/02/2019 Muscle weakness (fin ding) 04/02/2019 Neutropenia preventi on 04/02/2019 Personal history of breast cancer 04/02/2019 Right shoulder pain 04/02/2019 Screening status (fi nding) 04/02/2019 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 Thrombocytopenia cau sed by drugs (disorder) 04/02/2019 Vaccination for infl uenza given Immunizations Date Name Route Dose Instructions Refusal Reason Status 2 Influenza, adjuvanted, inactivated, quadrivalent, injectable, preservative free Right-Delt oid 0.5 mL Flu vaccine - Adult Not given other reason Not Administered Flu vaccine - Adult Completed Flu vaccine - Adult Completed Flu vaccine - Adult Covid-19 vaccine (Pfizer) Patient declined/rej ected Not Administered Covid-19 vaccine (Moderna) Patient declined/rej ected Not Administered Flu vaccine - Adult Flu vaccine - Adult Diagnostic Results Date Type Test Units Lower Limit Upper Limit Result Flag Comments Status Ordered By Specimen Source Lab Address 05/27 CBC w/ auto diff WBC K/uL 3.0 8.9 6.4 FINAL [facility] [place], [address] [place] [address] [facility] [phone] Phone: () - 05/27 CBC w/ auto diff HGB g/dL 11.3 15.2 13.8 FINAL Jhon bearden [facility], [address] [place] [address] [facility] [phone] Phone: () - 05/27 CBC w/ auto diff PLT K/uL 113.0 364.0 157 FINAL Jhon bearden [facility], [address] [place] [address] [facility] [phone] Phone: () - 05/27 CBC w/ auto diff Augustus # (ANC) K/uL 1.6 6.6 4.1 FINAL Jhon bearden [facility], [address] [place] [address] 210 [place] [phone] 0 Phone: () - 05/27 CBC w/ auto diff Augustus % % 43.0 74.0 63.8 FINAL Jhon bearden [facility], [address] [place] [address] 210 [place] [phone] 0 Phone: () - 05/27 CBC w/ auto diff IG % % 0.0 0.5 0.3 FINAL Jhon bearden [address] 210 [place] [phone] 0 Phone: () - 05/27 CBC w/ auto diff IG # K/uL 0.0 0.03 0.02 FINAL Jhon bearden [facility] a [address] [facility] [phone] Phone: () - 05/27 CBC w/ auto diff LY % % 14.0 41.0 26.6 FINAL [facility]hon [facility] [place], [address] [place] [address] [facility] [phone] 0 Phone: () - 05/27 CBC w/ auto diff MO % % 6.0 15.0 8.7 FINAL [facility] [place], [address] [place] [address] [facility] [phone] 0 Phone: () - 05/27 CBC w/ auto diff EO % % 0.0 7.0 0.3 FINAL [facility] - [address] [phone] Phone: () - 05/27 CBC w/ auto diff BA % % 0.0 2.0 0.3 FINAL [facility] [place], [address] [place] [address] [facility] [phone] 0 Phone: () - 05/27 CBC w/ auto diff LY # K/uL 0.4 3.6 1.7 FINAL [facility]hon [facility] [place], [address] [place] [address] [facility] [phone] 0 Phone: () - 05/27 CBC w/ auto diff MO # K/uL 0.2 1.3 0.6 FINAL [facility] [place], [address] [place] [address] [facility] [phone] 0 Phone: () - 05/27 CBC w/ auto diff EO # K/uL 0.0 0.6 0.0 FINAL [facility] - [address] [facility] [phone] Phone: () - 05/27 CBC w/ auto diff BA # K/uL 0.0 0.2 0.0 FINAL [facility] [address] [phone] Phone: () - 05/27 CBC w/ auto diff NRBC % #/100W BC 0.0 0.2 0.0 FINAL Jhon bearden [address] [facility] [phone] Phone: () - 05/27 CBC w/ auto diff RBC M/uL 3.9 5.1 4.29 FINAL Jhon bearden [address] [facility] [phone] 0 Phone: () - 05/27 CBC w/ auto diff HCT % 35.0 48.0 41.0 FINAL Jhon bearden [address] [facility] [phone] 0 Phone: () - 05/27 CBC w/ auto diff MCV fL 80.0 104.0 95.6 FINAL Jhon bearden [address] [facility] [id number] 0 Phone: () - 05/27 CBC w/ auto diff MCH pg 26.0 35.0 32.2 FINAL Jhon bearden [address] [facility] [phone] 0 Phone: () - 05/27 CBC w/ auto diff MCHC g/dL 30.0 35.0 33.7 FINAL Jhon bearden [address] [facility] [phone] 0 Phone: () - 05/27 CBC w/ auto diff MPV fL 9.5 13.4 9.8 FINAL Jhon bearden [address] [facility] [phone] 0 Phone: () - 05/27 CBC w/ auto diff RDW % 11.4 16.1 12.80 FINAL Jhon bearden [address] [facility] [phone] 0 Phone: () - 05/27 BCR-A BL by PCR quant itati ve B2a2 trans cript , % % Comment <0.0032 %(sensiti vity limit of assay) FINAL Jhon bearden 05/27 BCR-A BL by PCR quant itati ve B3a2 trans cript , % % Comment <0.0032 %(sensiti vity limit of assay) [facility] [address] 05/27 BCR-A BL by PCR quant itati ve E1a2 trans cript , % % Comment <0.0032 %(sensiti vity limit of assay) [facility]AL [facility] [place] [address] 05/27 BCR-A BL by PCR quant itati ve BCR/A BL inter preta tion Comment NEGATIVE for the BCR-ABL1 e1a2 (p190), e13a2 (b2a2, p210) and e14a2(b3a 2, p210) fusion transcrip ts. These results do not rule out thepresen ce of rare BCR-ABL1 transcrip ts not detected by this assay. FINAL Jhon bearden [place] [address] 05/27 BCR-A BL by PCR quant itati ve María ics [facility] rev w Comment Citlalli Millan, PhD, [facility], [facility], [phone] FINAL [facility] [address] 05/27 BCR-A BL by PCR quant itati ve BCR/A BL backg round Comment This assay can detect three different types of BCR-ABL1 fusiontra nscripts associate d with CML, ALL, and AML: e13a2 (previous lyb2a2) and e14a2 (previous ly b3a2) (major breakpoin t, p210), aswell as e1a2 (minor breakpoin t, p190). The e13a2 and e14a2 transcrip tvalues are titrated to the current Internati onal Scale (IS). Thestanda rdized baseline is 100% BCR-ABL1 (IS) and major molecular response (MMR) is equivalen t to 0.1% BCR-ABL1 (IS) correspon dingto a 3-log reduction . Results should be correlate d with appropria teclinica l and laborator y informati on as indicated . FINAL Jhon Keshawn suleiman Ruiz [facility] [address] 05/27 BCR-A BL by PCR quant itati ve BCR/A BL metho dolog y Comment Total RNA is isolated from the sample and subject to a real-time ,reverse transcrip tase polymeras e chain reaction (RT-PCR). The PCRprimer s and probes are specific for BCR-ABL1 e13a2, e14a2 and [id number] n transcrip ts. The ABL1 transcrip t is amplified as the controlfo r cDNA quantity and quality. Serial dilutions of a validated positive control RNA with known t(9;22) BCR-ABL1 are used asreferen ce for quantific ation of BCR-ABL1 relative to ABL1. Thenumeri c BCR-ABL1 level is reportd as % BCR-ABL1/ ABL1 and thedetect ion sensitivi ty is 4.5 log below the standard baseline. This test was developed and its performan ce character istics determine dby [facility]. It has not been cleared or approved by the Food and DrugAdmin istration .Referenc es:1. Cha T and Mariel S: Seminars in Hematolog y 2003;40 (suppl2): 62-68.2. Blaise MANDEL, et al. Blood 2010; 116: [id number]. 3. NCCN Clinical Practice Guideline s in Oncology, ChronicMy eloid Leukemia. V2. 2017.Perf ormed at: 01 - [facility] [id number] [facility], [place], [place] [id number] Staff Respiratory Therapist: Cecilia bearden MD, Phone: [phone] d at: - [facility] [id number] Shar [facility], [facility], [place] [id number] Staff Respiratory Therapist: Cecilia bearden MD, Phone: [phone] FINAL [facility] [address] 05/27 CMP Album in g/dL 3.2 5.2 4.6 FINAL Lillydavid bearden [address] [phone] Phone: () - 05/27 CMP Alkal ine phosp hatas e U/L 46.0 116.0 93 FINAL Jhon bearden [address] [phone] 0 Phone: () - 05/27 CMP ALT/S GPT U/L 7.0 40.0 21 FINAL Jhon bearden [address] [phone] 0 Phone: () - 05/27 CMP AST/S GOT U/L 13.0 40.0 24 FINAL Jhon bearden [address] [phone] 0 Phone: () - 05/27 CMP BUN mg/dL 9.0 23.0 11 FINAL Jhon bearden [address] [phone] 0 Phone: () - 05/27 CMP Calci um mg/dL 8.7 10.4 9.5 FINAL Jhon bearden [address] [id number] 0 Phone: () - 05/27 CMP Chlor rakan mmol/L 96.0 114.0 108 FINAL Jhon bearden [address] [phone] 0 Phone: () - 05/27 CMP CO2 mmol/L 20.0 31.0 26 FINAL Jhon bearden [address] [id number] 0 Phone: () - 05/27 CMP Creat inine mg/dL 0.5 1.2 0.98 FINAL Jhon bearden [address] [phone] 0 Phone: () - 05/27 CMP GFR estim ate ml/min /1.73m ^2 60.4 GFR is calculate d using the CKD-EPI equation. FINAL Jhon Fitzgerald[address] [phone] 0 Phone: () - 05/27 CMP Gluco se mg/dL 73.0 126.0 99 FINAL Jhon Fitzgerald[address] [phone] 0 Phone: () - 05/27 CMP Potas sium mmol/L 3.5 5.1 4.1 FINAL Jhon bearden [address] [phone] 0 Phone: () - 05/27 CMP Sodiu m mmol/L 136.0 145.0 144 FINAL Jhon Fitzgerald[address] [phone] 0 Phone: () - 05/27 CMP Bilir ubin, total mg/dL 0.3 1.2 0.5 FINAL Jhon bearden [address] [phone] 0 Phone: () - 05/27 CMP Total prote in g/dL 5.7 8.2 6.5 FINAL Jhon bearden [address] [phone] 0 Phone: () - 05/27 Misc other lab See php consultant d 02/09 CMP Album in g/dL 3.2 5.2 4.9 FINAL [facility] [address] [phone] 0 Phone: () - 02/09 CMP Alkal ine phosp hatas e U/L 46.0 116.0 92 FINAL [facility] [address] [phone] 0 Phone: () - 02/09 CMP ALT/S GPT U/L 7.0 40.0 18 FINAL [place] [phone] 0 Phone: () - 02/09 CMP AST/S GOT U/L 13.0 40.0 22 FINAL Kennedy muñoz [address] [phone] 0 Phone: () - 02/09 CMP BUN mg/dL 9.0 23.0 17 FINAL Kennedy Carmona[address] [id number] 0 Phone: () - 02/09 CMP Calci um mg/dL 8.7 10.4 10.0 FINAL [facility] [address] [phone] 0 Phone: () - 02/09 CMP Chlor rakan mmol/L 96.0 114.0 109 FINAL Kennedy Carmona[address] [id number] 0 Phone: () - 02/09 CMP CO2 mmol/L 20.0 31.0 24 FINAL Kennedy Carmona[address] [phone] 0 Phone: () - 02/09 CMP Creat inine mg/dL 0.5 1.2 1.09 FINAL Kennedy Carmona[address] [phone] 0 Phone: () - 02/09 CMP GFR estim ate ml/min /1.73m ^2 52.8 Low GFR is calculate d using the CKD-EPI equation. FINAL Kennedy Carmona[address] [phone] 0 Phone: () - 02/09 CMP Gluco se mg/dL 73.0 126.0 101 FINAL Kennedy Carmona[address] [phone] 0 Phone: () - 02/09 CMP Potas sium mmol/L 3.5 5.1 4.9 FINAL [place] [address] [place] [phone] 0 Phone: () - 02/09 CMP Sodiu m mmol/L 136.0 145.0 140 FINAL [facility] [address] [phone] 0 Phone: () - 02/09 CMP Bilir ubin, total mg/dL 0.3 1.2 0.8 FINAL Kennedy Carmonaot a [address] [phone] 0 Phone: () - 02/09 CMP Total prote in g/dL 5.7 8.2 6.9 FINAL [facility] a [address] [phone] 0 Phone: () - 02/09 BCR-A BL by PCR quant itati ve BCR-A BL1, CML/A LL, PCR, QUANT Note TESTS RESULT FLAG UNITS REF RANGE LAB------ --------- --------- --------- --------- --------- --------- e13a2 (b2a2) tyler... Note % 01<0.0032 %(sensiti vity limit of assay)e14 a2 (b3a2) tyler... Note % 01<0.0 032 %(sensiti vity limit of assay)e1a 2 transcrip t Note % 01<0.0032 %(sensiti vity limit of assay)Int erpretati on: Note 01NEGATIV E for the BCR-ABL1 e1a2 (p190), e13a2 (b2a2, p210) and e14a2(b3a 2, p210) fusion transcrip ts. These results do not rule out thepresen ce of rare BCR-ABL1 transcrip ts not detected by this assay.Dir erica Review Note 01Eddie Webb MD, PhDDirect or, Molecular OncologyL [facility] [place], [place] [address] [phone] nd 01This assay can detect three different types of BCR-ABL1 fusiontra nscripts associate d with CML, ALL, and AML: e13a2 (previous lyb2a2) and e14a2 (previous ly b3a2) (major breakpoin t, p210), aswell as e1a2 (minor breakpoin t, p190). The e13a2 and e14a2 transcrip tvalues are titrated to the current Internati onal Scale (IS). Thestanda rdized baseline is 100% BCR-ABL1 (IS) and major molecular response (MMR) is equivalen t to 0.1% BCR-ABL1 (IS) correspon dingto a 3-log reduction . Results should be correlate d with appropria teclinica l and laborator y informati on as indicated .Methodol ogy 02Total RNA is isolated from the sample and subject to a real-time ,reverse transcrip tase polymeras e chain reaction (RT-PCR). The PCRprimer s and probes are specific for BCR-ABL1 e13a2, e14a2 and [id number] n transcrip ts. The ABL1 transcrip t is amplified as the controlfo r cDNA quantity and quality. Serial dilutions of a validated positive control RNA with known t(9;22) BCR-ABL1 are used asreferen ce for quantific ation of BCR-ABL1 relative to ABL1. Thenumeri c BCR-ABL1 level is reported as % BCR-ABL1/ ABL1 and thedetect ion sensitivi ty is 4.5 log below the standard baseline( <0.0032%) .This test was developed and its performan ce character istics determine dby [facility]. It has not been cleared or approved by the Food and DrugAdmin istration .PDF 02------- --------- --------- --------- --------- --------- --------F LAG LEGEND:L- Low Normal,H- High Normal,LL -Alert Low,HH-Al ert High<-Tapia ic Low,>-Tapia ic High,A-Ab normal,AA -Critical Abnormal- --------- --------- --------- --------- --------- --------- -----Perf ormed at:[address] [facility] [id number] [employer] [address] [place], [place] [address] 3Achinyereurbano Espinalchinyere [facility], Phone: [phone] TG [facility] [id number] [employer], [place] [address] 0Yingurbano Espinalchinyere [facility], Phone: Perfor med at: - [facility] [id number] [employer], [place], [place] [id number] Staff Respiratory Therapist: Eddie Webb [facility], Phone: [phone] FINAL Kennedy Ungmichaelub 02/09 CBC w/ auto diff WBC K/uL 3.0 8.9 4.6 FINAL Kennedy Doloresub [facility] [address] [facility] [phone] 0 Phone: () - 02/09 CBC w/ auto diff HGB g/dL 11.3 15.2 14.4 FINAL Kennedy Carmona a [address] [facility] [phone] 0 Phone: () - 02/09 CBC w/ auto diff PLT K/uL 113.0 364.0 158 FINAL Kennedy Carmonaot a [address] 210 [place] [phone] 0 Phone: () - 02/09 CBC w/ auto diff Augustus # (ANC) K/uL 1.6 6.6 2.5 FINAL Kennedy Carmonaot a [address] 210 [place] [phone] 0 Phone: () - 02/09 CBC w/ auto diff Augustus % % 43.0 74.0 54.6 FINAL Kennedy Carmonaot a [address] 210 [place] [phone] 0 Phone: () - 02/09 CBC w/ auto diff IG % % 0.0 0.5 0.2 FINAL Kennedyeddie Bernalub [facility] a [address] [facility] [phone] 0 Phone: () - 02/09 CBC w/ auto diff IG # K/uL 0.0 0.03 0.01 FINAL [facility] [place], [address] [place] [address] 210 [place] [phone] 0 Phone: () - 02/09 CBC w/ auto diff LY % % 14.0 41.0 33.2 FINAL Kennedy [facility] [place], [address] [place] [address] 210 [place] [phone] 0 Phone: () - 02/09 CBC w/ auto diff MO % % 6.0 15.0 10.4 FINAL Kennedy [facility] [place], [address] [place] [address] 210 [place] [phone] 0 Phone: () - 02/09 CBC w/ auto diff EO % % 0.0 7.0 0.9 FINAL Kennedy [facility] [place], [address] [place] [address] 210 [place] [phone] 0 Phone: () - 02/09 CBC w/ auto diff BA % % 0.0 2.0 0.7 FINAL Kennedy [facility] [place], [address] [place] [address] 210 [place] [phone] 0 Phone: () - 02/09 CBC w/ auto diff LY # K/uL 0.4 3.6 1.5 FINAL Kennedy [facility] [place], [address] [place] [address] 210 [place] [phone] 0 Phone: () - 02/09 CBC w/ auto diff MO # K/uL 0.2 1.3 0.5 FINAL Kennedy [facility] [place], [address] [place] [address] 210 [place] [phone] 0 Phone: () - 02/09 CBC w/ auto diff EO # K/uL 0.0 0.6 0.0 FINAL Kennedy [facility] [place], [address] [place] [address] 210 [place] [phone] 0 Phone: () - 02/09 CBC w/ auto diff BA # K/uL 0.0 0.2 0.0 FINAL Kennedy [facility] [place], [address] [place] [address] [facility] [id number] 0 Phone: () - 02/09 CBC w/ auto diff NRBC % #/100W BC 0.0 0.2 0.0 FINAL Kennedy Carmona toni [facility], [address] [place] [address] [facility] [id number] 0 Phone: () - 02/09 CBC w/ auto diff RBC M/uL 3.9 5.1 4.52 FINAL Kennedy [facility], [address] [place] [address] [facility] [id number] 0 Phone: () - 02/09 CBC w/ auto diff HCT % 35.0 48.0 42.6 FINAL [facility], [address] [place] [address] [facility] [id number] 0 Phone: () - 02/09 CBC w/ auto diff MCV fL 80.0 104.0 94.2 FINAL [facility] [address] [facility] [id number] 0 Phone: () - 02/09 CBC w/ auto diff MCH pg 26.0 35.0 31.9 FINAL Kennedy Carmona toni [facility], [address] [place] [address] 210 [place] [phone] 0 Phone: () - 02/09 CBC w/ auto diff MCHC g/dL 30.0 35.0 33.8 FINAL Kennedy Carmona[address] [facility] [id number] 0 Phone: () - 02/09 CBC w/ auto diff MPV fL 9.5 13.4 9.8 FINAL Kennedy [facility] [address] [facility] [id number] 0 Phone: () - 02/09 CBC w/ auto diff RDW % 11.4 16.1 12.60 FINAL [facility] toni [address] [facility] [phone] 0 Phone: () - 08/30 CBC w/ auto diff WBC K/uL 3.0 8.9 4.7 FINAL [facility] [address] [place] [address] 210 [place] [phone] 0 Phone: () - 08/30 CBC w/ auto diff HGB g/dL 11.3 15.2 14.5 FINAL [facility] [address] [place] [address] 210 [place] [phone] 0 Phone: () - 08/30 CBC w/ auto diff PLT K/uL 113.0 364.0 153 FINAL [facility], [address] [place] [address] [facility] [id number] 0 Phone: () - 08/30 CBC w/ auto diff Augustus # (ANC) K/uL 1.6 6.6 2.7 FINAL [facility] [address] [place] [address] [facility] [id number] 0 Phone: () - 08/30 CBC w/ auto diff Augustus % % 43.0 74.0 56.8 FINAL [facility] [address] [place] [address] [facility] [id number] 0 Phone: () - 08/30 CBC w/ auto diff IG % % 0.0 0.5 0.0 FINAL [facility] [address] [place] [address] [facility] [id number] 0 Phone: () - 08/30 CBC w/ auto diff IG # K/uL 0.0 0.03 0.00 FINAL [facility], [address] [place] [address] 210 [place] [phone] 0 Phone: () - 08/30 CBC w/ auto diff LY % % 14.0 41.0 29.6 FINAL Ruiz Raya [facility], [address] [place] [address] 210 [place] [phone] 0 Phone: () - 08/30 CBC w/ auto diff MO % % 6.0 15.0 11.6 FINAL Ruiz Raya [facility], [address] [place] [address] 210 [place] [phone] 0 Phone: () - 08/30 CBC w/ auto diff EO % % 0.0 7.0 1.1 FINAL [facility] [address] [place] [address] [facility] [id number] 0 Phone: () - 08/30 CBC w/ auto diff BA % % 0.0 2.0 0.9 FINAL [facility], [address] [place] [address] [facility] [id number] 0 Phone: () - 08/30 CBC w/ auto diff LY # K/uL 0.4 3.6 1.4 FINAL [facility], [address] [place] [address] [facility] [id number] 0 Phone: () - 08/30 CBC w/ auto diff MO # K/uL 0.2 1.3 0.5 FINAL [facility], [address] [place] [address] [facility] [id number] 0 Phone: () - 08/30 CBC w/ auto diff EO # K/uL 0.0 0.6 0.1 FINAL [facility], [address] [place] [address] [facility] [id number] 0 Phone: () - 08/30 CBC w/ auto diff BA # K/uL 0.0 0.2 0.0 FINAL [facility], [address] [place] [address] [facility] [id number] 0 Phone: () - 08/30 CBC w/ auto diff NRBC % #/100W BC 0.0 0.2 0.0 FINAL [facility], [address] [place] [address] [facility] [id number] 0 Phone: () - 08/30 CBC w/ auto diff RBC M/uL 3.9 5.1 4.48 FINAL [facility], [address] [place] [address] [facility] [id number] 0 Phone: () - 08/30 CBC w/ auto diff HCT % 35.0 48.0 43.5 FINAL Ruiz muñoz [facility], [address] [place] [address] [facility] [id number] 0 Phone: () - 08/30 CBC w/ auto diff MCV fL 80.0 104.0 97.1 FINAL Ruiz muñoz [facility], [address] [place] [address] [facility] [id number] 0 Phone: () - 08/30 CBC w/ auto diff MCH pg 26.0 35.0 32.4 FINAL Ruiz muñoz [facility], [address] [place] [address] [facility] [id number] 0 Phone: () - 08/30 CBC w/ auto diff MCHC g/dL 30.0 35.0 33.3 FINAL Ruiz muñoz [facility], [address] [place] [address] [facility] [id number] 0 Phone: () - 08/30 CBC w/ auto diff MPV fL 9.5 13.4 9.9 FINAL Ruiz muñoz [facility], [address] [place] [address] [facility] [id number] 0 Phone: () - 08/30 CBC w/ auto diff RDW % 11.4 16.1 12.30 FINAL Ruiz muñoz [facility], [address] [place] [address] [facility] [id number] 0 Phone: () - 08/30 CMP Album in g/dL 3.2 5.2 4.6 FINAL Ruiz Carmona[address] [id number] 0 Phone: () - 08/30 CMP Alkal ine phosp hatas e U/L 46.0 116.0 89 FINAL Ruiz Raya [address] [id number] 0 Phone: () - 08/30 CMP ALT/S GPT U/L 7.0 40.0 14 FINAL Ruiz Carmona[address] [id number] 0 Phone: () - 08/30 CMP AST/S GOT U/L 13.0 40.0 20 FINAL Ruiz Terrazas [address] [id number] 0 Phone: () - 08/30 CMP BUN mg/dL 9.0 23.0 26 High FINAL Ruiz Carmona[address] [id number] 0 Phone: () - 08/30 CMP Calci um mg/dL 8.7 10.4 10.0 FINAL Ruiz Carmona[address] [id number] 0 Phone: () - 08/30 CMP Chlor rakan mmol/L 96.0 114.0 110 FINAL Ruiz Raya [address] [id number] 0 Phone: () - 08/30 CMP CO2 mmol/L 20.0 31.0 27 FINAL Ruiz Raya [address] [id number] 0 Phone: () - 08/30 CMP Creat inine mg/dL 0.5 1.2 1.24 High FINAL Ruiz Raya [address] [id number] 0 Phone: () - 08/30 CMP GFR estim ate ml/min /1.73m ^2 45.0 Low GFR is calculate d using the CKD-EPI equation. FINAL Ruiz Carmona[address] [phone] 0 Phone: () - 08/30 CMP Gluco se mg/dL 73.0 126.0 92 FINAL Ruiz Raya [address] [id number] 0 Phone: () - 08/30 CMP Potas sium mmol/L 3.5 5.1 4.4 FINAL Ruiz Carmona[address] [id number] 0 Phone: () - 08/30 CMP Sodiu m mmol/L 136.0 145.0 142 FINAL Ruiz Raya [facility] - [address] [id number] 0 Phone: () - 08/30 CMP Bilir ubin, total mg/dL 0.3 1.2 0.4 FINAL Ruiz Raya [address] [id number] 0 Phone: () - 08/30 CMP Total prote in g/dL 5.7 8.2 6.6 FINAL Ruiz Raya [address] [id number] 0 Phone: () - 08/30 BCR-A BL by PCR quant itati ve BCR-A BL1, CML/A LL, PCR, QUANT Note TESTS RESULT FLAG UNITS REF RANGE LAB------ --------- --------- --------- --------- --------- --------- e13a2 (b2a2) tyler... Note % 01<0.0032 %e14a2 (b3a2) tyler... Note % 01<0.0032 %e1a2 transcrip t Note % 01<0.0032 %Interpre tation: Negative 01NEGATIV E for the BCR-ABL1 e1a2 (p190), e13a2 (b2a2, p210) and e14a2(b3a 2, p210) fusion transcrip ts. These results do not rule out thepresen ce of rare BCR-ABL1 transcrip ts not detected by this assay.Dir erica Review Note Anna Burgess, PhD, FACMGDire ctor, Molecular OncologyL [facility] [place], [place] [address] [phone] davis 01This assay can detect three different types of BCR-ABL1 fusiontra nscripts associate d with CML, ALL, and AML: e13a2 (previous lyb2a2) and e14a2 (previous ly b3a2) (major breakpoin t, p210), aswell as e1a2 (minor breakpoin t, p190). The e13a2 and e14a2 transcrip tvalues are titrated to the current Internati onal Scale (IS). Thestanda rdized baseline is 100% BCR-ABL1 (IS) and major molecular response (MMR) is equivalen t to 0.1% BCR-ABL1 (IS) correspon dingto a 3-log reduction . Results should be correlate d with appropria teclinica l and laborator y informati on as indicated .Methodol ogy 02Total RNA is isolated from the sample and subject to a real-time ,reverse transcrip tase polymeras e chain reaction (RT-PCR). The PCRprimer s and probes are specific for BCR-ABL1 e13a2, e14a2 and [id number] n transcrip ts. The ABL1 transcrip t is amplified as the controlfo r cDNA quantity and quality. Serial dilutions of a validated positive control RNA with known t(9;22) BCR-ABL1 are used asreferen ce for quantific ation of BCR-ABL1 relative to ABL1. Thenumeri c BCR-ABL1 level is reported as % BCR-ABL1/ ABL1 and thedetect ion sensitivi ty is 4.5 log below the standard baseline( <0.0032%) .This test was developed and its performan ce character istics determine dby [facility]. It has not been cleared or approved by the Food and DrugAdmin istration .PDF 02------- --------- --------- --------- --------- --------- --------F LAG LEGEND:L- Low Normal,H- High Normal,LL -Alert Low,HH-Al ert High<-Tapia ic Low,>-Tapia ic High,A-Ab normal,AA -Critical Abnormal- --------- --------- --------- --------- --------- --------- -----Perf ormed at:[address] [facility] [id number] [employer] [place] [address] 3Amikayla Webb [facility], Phone: [phone] [facility] [id number] [place] [address] 0Eddie Webb [facility], Phone: Perfor [facility] at: 01 - [facility] [id number] [place], [place] [id number] Staff Respiratory Therapist: Eddie Webb [facility], Phone: [phone] FINAL Ruiz Raya 03/06 BCR-A BL by PCR quant itati ve BCR-A BL1, CML/A LL, PCR, QUANT Note TESTS RESULT FLAG UNITS REF RANGE LAB------ --------- --------- --------- --------- --------- --------- e13a2 (b2a2) tyler... Note % 01<0.0032 %e14a2 (b3a2) tyler... Note % 01<0.0032 %e1a2 transcrip t Note % 01<0.0032 %Interpre tation: Negative 01NEGATIV E for the BCR-ABL1 e1a2 (p190), e13a2 (b2a2, p210) and e14a2(b3a 2, p210) fusion transcrip ts. These results do not rule out thepresen ce of rare BCR-ABL1 transcrip ts not detected by this assay.Dir erica Review Note 01Petey Burgess, PhD, FACDire ctor, Molecular OncologyMyMich[facility] Path[place] [address] [phone] nd 01This assay can detect three different types of BCR-ABL1 fusiontra nscripts associate d with CML, ALL, and AML: e13a2 (previous lyb2a2) and e14a2 (previous ly b3a2) (major breakpoin t, p210), aswell as e1a2 (minor breakpoin t, p190). The e13a2 and e14a2 transcrip tvalues are titrated to the current Internati onal Scale (IS). Thestanda rdized baseline is 100% BCR-ABL1 (IS) and major molecular response (MMR) is equivalen t to 0.1% BCR-ABL1 (IS) correspon dingto a 3-log reduction . Results should be correlate d with appropria teclinica l and laborator y informati on as indicated .Methodol ogy 02Total RNA is isolated from the sample and subject to a real-time ,reverse transcrip tase polymeras e chain reaction (RT-PCR). The PCRprimer s and probes are specific for BCR-ABL1 e13a2, e14a2 and [id number] n transcrip ts. The ABL1 transcrip t is amplified as the controlfo r cDNA quantity and quality. Serial dilutions of a validated positive control RNA with known t(9;22) BCR-ABL1 are used asreferen ce for quantific ation of BCR-ABL1 relative to ABL1. Thenumeri c BCR-ABL1 level is reported as % BCR-ABL1/ ABL1 and thedetect ion sensitivi ty is 4.5 log below the standard baseline( <0.0032%) .This test was developed and its performan ce character istics determine dby [facility]. It has not been cleared or approved by the Food and DrugAdmin istration .PDF 02------- --------- --------- --------- --------- --------- --------F LAG LEGEND:L- Low Normal,H- High Normal,LL -Alert Low,HH-Al ert High<-Tapia ic Low,>-Tapia ic High,A-Ab normal,AA -Critical Abnormal- --------- --------- --------- --------- --------- --------- -----Perf ormed at:[address] [facility] [id number] [employer] [place] [address] 3Amikayla Webb [facility], Phone: [phone] TG [facility] [id number] [email or web address] [address] Edis Webb [facility], Phone: Perfor med at: 01 - [facility] [id number] [email or web address] [place], [place] [id number] Staff Respiratory Therapist: Eddie Webb [facility], Phone: [phone] FINAL Ruiz Raya 03/06 CBC w/ auto diff WBC K/uL 3.0 8.9 5.8 FINAL Ruiz Terrazas [facility], [address] [place] [address] [id number] 0 Phone: () - 03/06 CBC w/ auto diff HGB g/dL 11.3 15.2 14.0 FINAL Ruiz Carmona[address] [id number] 0 Phone: () - 03/06 CBC w/ auto diff PLT K/uL 113.0 364.0 174 FINAL Ruiz Carmona[address] [id number] 0 Phone: () - 03/06 CBC w/ auto diff Augustus # (ANC) K/uL 1.6 6.6 3.6 FINAL Ruiz Carmona[address] [id number] 0 Phone: () - 03/06 CBC w/ auto diff Augustus % % 43.0 74.0 61.8 FINAL Ruiz Terrazas [address] [id number] 0 Phone: () - 03/06 CBC w/ auto diff IG % % 0.0 0.5 0.2 FINAL Ruiz Carmona[address] [id number] 0 Phone: () - 03/06 CBC w/ auto diff IG # K/uL 0.0 0.03 0.01 FINAL Ruiz Carmona[address] [id number] 0 Phone: () - 03/06 CBC w/ auto diff LY % % 14.0 41.0 26.9 FINAL Ruiz aCrmona[address] [id number] 0 Phone: () - 10/18 /2021 CBC w/ auto diff MO % % 6.0 15.0 9.4 FINAL [facility] [place], [address] [place] [address] 210 [place] [phone] 0 Phone: () - 03/06 CBC w/ auto diff EO % % 0.0 7.0 1.2 FINAL Ruiz Terrazas [facility] [place], [address] [place] [address] 210 [place] [phone] 0 Phone: () - 03/06 CBC w/ auto diff BA % % 0.0 2.0 0.5 FINAL [facility] [place], [address] [place] [address] 210 [place] [phone] 0 Phone: () - 03/06 CBC w/ auto diff LY # K/uL 0.4 3.6 1.6 FINAL [facility], [address] [place] [address] 210 [place] [id number] 0 Phone: () - 03/06 CBC w/ auto diff MO # K/uL 0.2 1.3 0.6 FINAL [facility], [address] [place] [address] 210 [place] [id number] 0 Phone: () - 03/06 CBC w/ auto diff EO # K/uL 0.0 0.6 0.1 FINAL Ruiz Carmona toni [facility], [address] [place] [address] 210 [place] [id number] 0 Phone: () - 03/06 CBC w/ auto diff BA # K/uL 0.0 0.2 0.0 FINAL [facility] [place], [address] [place] [address] 210 [place] [id number] 0 Phone: () - 03/06 CBC w/ auto diff NRBC % #/100W BC 0.0 0.2 0.0 FINAL [facility], [address] [place] [address] 210 [place] [phone] 0 Phone: () - 03/06 CBC w/ auto diff RBC M/uL 3.9 5.1 4.42 FINAL [facility], [address] [place] [address] [facility] [id number] 0 Phone: () - 03/06 CBC w/ auto diff HCT % 35.0 48.0 41.8 FINAL [facility] [address] [place] [address] [facility] [id number] 0 Phone: () - 03/06 CBC w/ auto diff MCV fL 80.0 104.0 94.6 FINAL [facility] [address] [place] [address] [facility] [id number] 0 Phone: () - 03/06 CBC w/ auto diff MCH pg 26.0 35.0 31.7 FINAL [facility] [address] [place] [address] [facility] [id number] 0 Phone: () - 03/06 CBC w/ auto diff MCHC g/dL 30.0 35.0 33.5 FINAL [facility], [address] [place] [address] [facility] [id number] 0 Phone: () - 03/06 CBC w/ auto diff MPV fL 9.5 13.4 9.6 FINAL [facility], [address] [place] [address] [facility] [id number] 0 Phone: () - 03/06 CBC w/ auto diff RDW % 11.4 16.1 12.20 FINAL [facility] [address] [place] [address] [facility] [id number] 0 Phone: () - 03/06 CMP Album in g/dL 3.2 5.2 4.8 FINAL [facility], [address] [place] [address] [place] [phone] 0 Phone: () - 03/06 CMP Alkal ine phosp hatas e U/L 46.0 116.0 107 FINAL Ruiz Raya [facility], [address] [place] [id number] 0 Phone: () - 03/06 CMP ALT/S GPT U/L 7.0 40.0 20 FINAL Ruiz Rousey [facility], [address] [id number] 0 Phone: () - 03/06 CMP AST/S GOT U/L 13.0 40.0 24 FINAL Ruiz Terrazas [facility] [address] [id number] [phone] Phone: () - 03/06 CMP BUN mg/dL 9.0 23.0 12 FINAL [place] [address] [id number] 0 Phone: () - 03/06 CMP Calci um mg/dL 8.7 10.4 10.3 FINAL [place] [address] [id number] 0 Phone: () - 03/06 CMP Chlor rakan mmol/L 96.0 114.0 107 FINAL Ruiz Raya [place] [address] [id number] 0 Phone: () - 03/06 CMP CO2 mmol/L 20.0 31.0 27 The expected total allowable error for CO2 is 5.6%. We have seen up to 10% differenc e in values if reported at the end of the 96 hour stability window. Please consider the clinical significa nce of a 2.0-2.5 mmol/L lower reported CO2 value if reported at the end of the 96 hour stability window. FINAL Ruiz Terrazas [place] [address] [id number] 0 Phone: () - 03/06 CMP Creat inine mg/dL 0.5 1.2 1.11 FINAL Ruiz Raya [place] [address] [id number] 0 Phone: () - 03/06 CMP GFR estim ate ml/min /1.73m ^2 51.3 Low GFR is calculate d using the CKD-EPI equation. FINAL [place] [address] [id number] 0 Phone: () - 03/06 CMP Gluco se mg/dL 73.0 126.0 98 FINAL Ruiz RouBess [facility], [address] [facility] [id number] 0 Phone: () - 03/06 CMP Potas sium mmol/L 3.5 5.1 4.5 FINAL Ruiz RouBess [facility], [address] [facility] [id number] 0 Phone: () - 03/06 CMP Sodiu m mmol/L 136.0 145.0 142 FINAL Ruiz [facility], [address] [facility] [id number] 0 Phone: () - 03/06 CMP Bilir ubin, total mg/dL 0.3 1.2 0.7 FINAL [facility], [address] [facility] [id number] 0 Phone: () - 03/06 CMP Total prote in g/dL 5.7 8.2 7.4 FINAL [facility], [address] [facility] [id number] 0 Phone: () - 08/23 BCR/A BL1, p210 Resul t see interpr etation FINAL [facility] 08/23 Speci men Type EDTA Whole Blood FINAL [facility] 08/23 Final Diagn osis: SEE COMMENT S Periphera l blood, BCR/ABL1 mRNA level analysis (p210 fusionfor m):Negati ve. No BCR/ABL1 p210 mRNA transcrip ts were detected( %BCR/ABL1 (p210):AB L1=0).NOT E: Please correlate this result with the original( diagnosti c) BCR-ABL1 mRNA transcrip t type identifie d inthis patient to ensure that the ordered test is correct andapprop riate for the clinical indicatio n. This assayspec ifically detects the p210 (e13a2 or e14a2) BCR-ABL1t ranscript isoform. It does not detect the BCR-ABL1 p190(e1-a 2) transcrip t (prevalen t in B-lymphob lastic leukemia, but may also rarely occur in chronic myeloid leukemia) orother rare BCR-ABL1 transcrip t isoforms. Signing Pathologi st: Ni Ivan M.D.----- --------- -----ROBERT TIONAL INFORMATI ON------- --------- ---Method summary - BCR/ABL1, p210 fusion: The BCR/ABL1t ranscript level was evaluated using a quantitat erich,rever se transcrip tion PCR. The analytica l sensitivi ty ofthis assay has been determine d at 0.003% (MR 4.5). Thisassay detects the major breakpoin t region-as sociated commonfus ion mRNA forms in chronic myelogeno us leukemia (e13/a2an d e14/a2), which code for a p210 protein. It is intendedf or monitorin g patients with hematopoi etic neoplasms knownto carry the p210 fusion form. The assay does not detectoth er BCR/ABL1 mRNA types, including the e1/a2 transcrip t(p190 protein) that is commonly present in acutelymp hoblastic leukemia. This assay is not intended for usein the diagnosti c setting, as it does not detect allBCR/AB L1 mRNA fusion forms. If this has been performed in adiagnost ic setting and the result is negative, test: BADX(BCR/ ABL mRNA Detection , RT-PCR, Qualitati ve, Diagnosti c)should be ordered to evaluate for all possible fusionfor ms. Please contact the [place] [facility]ologyLab oratory at with questions or if additiona ltesting is required. See the [facility] Laborator iesInterp retive Handbook for method details.T he reproduci bility of this assay is such that resultswi thin 0.5 log should be considere d equivalen t. Trends inthe level of BCR/ABL1 mRNA should be followed carefully andclinic ally significa nt changes in BCR/ABL1 mRNA levelsdur ing tyrosine kinase inhibitor (TKI) therapy may indicatet he presence of acquired BCR/ABL1 kinase domain mutations ,which can be further evaluated using the BCR/ABL KDM assay(jane t: SAI).Th is test was developed and its performan ce character isticsdet ermined by [facility] in a manner consisten t with Navdeep rements. This test has not been cleared or approved bythe U.S. Food and Drug Administr ation.Jane t Performed by:[address] [id number] Director: Michael Reid M.D. Ph.D.; CLIA# [id number] 2 FINAL Kennedy Ungmichaelub 08/23 CBC w/ auto diff WBC K/uL 3.0 8.9 4.5 FINAL Kennedy Doloresub [facility] [place], [address] [place] [address] [facility] [id number] 0 Phone: () - 08/23 CBC w/ auto diff HGB g/dL 11.3 15.2 13.8 FINAL Kennedy Bernalub [facility] [place], [address] [place] [address] [facility] [phone] 0 Phone: () - 08/23 CBC w/ auto diff PLT K/uL 113.0 364.0 150 FINAL Kennedy Carmonaot a [facility], [address] [place] [address] [facility] [phone] 0 Phone: () - 08/23 CBC w/ auto diff Augustus # (ANC) K/uL 1.6 6.6 2.4 FINAL Kennedy Carmonaot a [facility] [place], [address] [place] [address] 210 [place] [phone] 0 Phone: () - 08/23 CBC w/ auto diff Augustus % % 43.0 74.0 53.6 FINAL Kennedy Bernalub Mathewot a [facility] [place], [address] [place] [address] 210 [place] [phone] 0 Phone: () - 08/23 CBC w/ auto diff IG % % 0.0 0.5 0.2 FINAL Kennedy Doloresub Mathewot a [address] 210 [place] [phone] 0 Phone: () - 08/23 CBC w/ auto diff IG # K/uL 0.0 0.03 0.01 FINAL Kennedyeddie Bernalub [place] a [address] 210 [place] [phone] 0 Phone: () - 08/23 CBC w/ auto diff LY % % 14.0 41.0 32.2 FINAL Kennedy Unglaub [facility] [place], [address] [place] [address] 210 [place] [phone] 0 Phone: () - 08/23 CBC w/ auto diff MO % % 6.0 15.0 11.3 FINAL Kennedy Unglaub [facility] [place], [address] [place] [address] [facility] [phone] 0 Phone: () - 08/23 CBC w/ auto diff EO % % 0.0 7.0 1.8 FINAL Kennedy Unglaub [place] [facility] [place], [address] [place] [address] [facility] [phone] 0 Phone: () - 08/23 CBC w/ auto diff BA % % 0.0 2.0 0.9 FINAL Kennedy [place]ub [place] [facility], [address] [place] [address] [address] [facility] [phone] 0 Phone: () - 08/23 CBC w/ auto diff LY # K/uL 0.4 3.6 1.5 FINAL Kennedy Ungmichaelub [place] [facility] [place], [address] [place] [address] [facility] [phone] 0 Phone: () - 08/23 CBC w/ auto diff MO # K/uL 0.2 1.3 0.5 FINAL Kennedy Ungmichaelub [place] [facility], [address] [place] [address] [facility] [phone] 0 Phone: () - 08/23 CBC w/ auto diff EO # K/uL 0.0 0.6 0.1 FINAL Kennedy Unglaub [facility] [place], [address] [place] [address] 210 [place] [phone] 0 Phone: () - 08/23 CBC w/ auto diff BA # K/uL 0.0 0.2 0.0 FINAL Kennedy Unglaub [facility] [place], [address] [place] [address] 210 [place] [phone] 0 Phone: () - 08/23 CBC w/ auto diff NRBC % #/100W BC 0.0 0.2 0.0 FINAL Kennedy Carmona a [facility], [address] [place] [address] 210 [place] [phone] 0 Phone: () - 08/23 CBC w/ auto diff RBC M/uL 3.9 5.1 4.34 FINAL Kennedy Carmona toni [facility], [address] [place] [address] 210 [place] [phone] 0 Phone: () - 08/23 CBC w/ auto diff HCT % 35.0 48.0 41.0 FINAL [facility], [address] [place] [address] 210 [place] [phone] 0 Phone: () - 08/23 CBC w/ auto diff MCV fL 80.0 104.0 94.5 FINAL [facility], [address] [place] [address] 210 [place] [phone] 0 Phone: () - 08/23 CBC w/ auto diff MCH pg 26.0 35.0 31.8 FINAL [facility], [address] [place] [address] 210 [place] [phone] 0 Phone: () - 08/23 CBC w/ auto diff MCHC g/dL 30.0 35.0 33.7 FINAL Kennedy Carmona toni [facility], [address] [place] [address] 210 [place] [phone] 0 Phone: () - 08/23 CBC w/ auto diff MPV fL 9.5 13.4 9.5 FINAL [facility], [address] [place] [address] 210 [place] [phone] 0 Phone: () - 08/23 CBC w/ auto diff RDW % 11.4 16.1 12.80 FINAL [facility], [address] [place] [address] 210 [place] [phone] 0 Phone: () - 08/23 CMP Album in g/dL 3.2 5.2 4.4 FINAL Kennedy Carmona a [facility], [address] [facility] [address] [place] [phone] 0 Phone: () - 08/23 CMP Alkal ine phosp hatas e U/L 46.0 116.0 91 FINAL [facility], [facility] [address] [phone] 0 Phone: () - 08/23 CMP ALT/S GPT U/L 7.0 40.0 19 FINAL [place] [address] [address] [facility] [address] [phone] 0 Phone: () - 08/23 CMP AST/S GOT U/L 13.0 40.0 22 FINAL [place] [address] [address] [facility] [address] [phone] 0 Phone: () - 08/23 CMP BUN mg/dL 9.0 23.0 16 FINAL [place] [address] [phone] 0 Phone: () - 08/23 CMP Calci um mg/dL 8.7 10.4 9.8 FINAL [place] [address] [phone] 0 Phone: () - 08/23 CMP CO2 mmol/L 20.0 31.0 25 The expected total allowable error for CO2 is 5.6%. We have seen up to 10% differenc e in values if reported at the end of the 96 hour stability window. Please consider the clinical significa nce of a 2.0-2.5 mmol/L lower reported CO2 value if reported at the end of the 96 hour stability window. FINAL [facility], [facility] N [facility] [address] [phone] 0 Phone: () - 08/23 CMP Creat inine mg/dL 0.5 1.2 0.99 FINAL [place] [address] [address] [facility] [address] [place] [address] [phone] 0 Phone: () - 08/23 CMP GFR estim ate ml/min /1.73m ^2 62.3 GFR is calculate d using the CKD-EPI equation. FINAL [facility], [address] [phone] 0 Phone: () - 08/23 CMP Gluco se mg/dL 73.0 126.0 100 FINAL [place] [address] [id number] 0 Phone: () - 08/23 CMP Potas sium mmol/L 3.5 5.1 4.4 FINAL [place] [address] [phone] 0 Phone: () - 08/23 CMP Sodiu m mmol/L 136.0 145.0 144 FINAL [place] [address] [id number] 0 Phone: () - 08/23 CMP Bilir ubin, total mg/dL 0.3 1.2 0.7 FINAL Kennedy [facility] [place] [address] [phone] 0 Phone: () - 08/23 CMP Chlor rakan mmol/L 96.0 114.0 108 FINAL [place] [address] [id number] 0 Phone: () - 08/23 CMP Total prote in g/dL 5.7 8.2 6.5 FINAL [place] [address] [id number] 0 Phone: () - 03/13 BCR/A BL1, p210 Resul t see interpr etation FINAL Ruiz Dorota 03/13 Speci men Type edta whole blood FINAL Ruiz Dorota 03/13 Final Diagn osis: SEE COMMENT S Periphera l blood, BCR/ABL1 mRNA level analysis (p210 fusionfor m):Negati ve. No BCR/ABL1 p210 mRNA transcrip ts were detected( %BCR/ABL1 (p210):AB L1=0).NOT E: Please correlate this result with the original( diagnosti c) BCR-ABL1 mRNA transcrip t type identifie d inthis patient to ensure that the ordered test is correct andapprop riate for the clinical indicatio n. This assayspec ifically detects the p210 (e13a2 or e14a2) BCR-ABL1t ranscript isoform. It does not detect the BCR-ABL1 p190(e1-a 2) transcrip t (prevalen t in B-lymphob lastic leukemia, but may also rarely occur in chronic myeloid leukemia) orother rare BCR-ABL1 transcrip t isoforms. Signing Pathologi st: Myles muñoz M.D.----- --------- -----ROBERT TIONAL INFORMATI ON------- --------- ---Method summary - BCR/ABL1, p210 fusion: The BCR/ABL1t ranscript level was evaluated using a quantitat erich,rever se transcrip tion PCR. The analytica l sensitivi ty ofthis assay has been determine d at 0.003% (MR 4.5). Thisassay detects the major breakpoin t region-as sociated commonfus ion mRNA forms in chronic myelogeno us leukemia (e13/a2an d e14/a2), which code for a p210 protein. It is intendedf or monitorin g patients with hematopoi etic neoplasms knownto carry the p210 fusion form. The assay does not detectoth er BCR/ABL1 mRNA types, including the e1/a2 transcrip t(p190 protein) that is commonly present in acutelymp hoblastic leukemia. This assay is not intended for usein the diagnosti c setting, as it does not detect allBCR/AB L1 mRNA fusion forms. If this has been performed in adiagnost ic setting and the result is negative, test: BADX(BCR/ ABL mRNA Detection , RT-PCR, Qualitati ve, Diagnosti c)should be ordered to evaluate for all possible fusionfor ms. Please contact the [place] or[facility] at with questions or if additiona ltesting is required. See the [facility] Laborator iesInterp retive Handbook for method details.T he reproduci bility of this assay is such that resultswi thin 0.5 log should be considere d equivalen t. Trends inthe level of BCR/ABL1 mRNA should be followed carefully andclinic ally significa nt changes in BCR/ABL1 mRNA levelsdur ing tyrosine kinase inhibitor (TKI) therapy may indicatet he presence of acquired BCR/ABL1 kinase domain mutations ,which can be further evaluated using the BCR/ABL KDM assay(jane t: BAKDM).Th is test was developed and its performan ce character isticsdet ermined by [facility] in a manner consisten t with CLIArequi rements. This test has not been cleared or approved bythe U.S. Food and Drug Administr atformerly [facility].Jane t Performed by:[address] Director: Michael Reid M.D. Ph.D.; CLIA# [id number] FINAL Ruiz Hafe 03/13 CBC w/ auto diff HGB g/dL 11.3 15.2 14.6 FINAL Ruiz Raya [address] [phone] 0 Phone: () - 03/13 CBC w/ auto diff Augustus # (ANC) K/uL 1.6 6.6 5.3 FINAL Ruiz Raya [address] [phone] 0 Phone: () - 03/13 CBC w/ auto diff IG % % 0.0 0.5 0.3 FINAL Ruiz Carmona[address] [id number] 0 Phone: () - 03/13 CBC w/ auto diff IG # K/uL 0.0 0.03 0.02 FINAL Ruiz Raya [address] [phone] 0 Phone: () - 03/13 CBC w/ auto diff MO % % 6.0 15.0 9.4 FINAL Ruiz Carmona[address] [phone] 0 Phone: () - 03/13 CBC w/ auto diff WBC K/uL 3.0 8.9 7.7 FINAL Ruiz muñoz [facility] [place], [address] [place] [address] 210 [place] [phone] 0 Phone: () - 03/13 CBC w/ auto diff PLT K/uL 113.0 364.0 160 FINAL Ruiz muñoz [facility], [address] [place] [address] 210 [place] [phone] 0 Phone: () - 03/13 CBC w/ auto diff Augustus % % 43.0 74.0 69.5 FINAL [facility], [address] [place] [address] 210 [place] [phone] 0 Phone: () - 03/13 CBC w/ auto diff LY % % 14.0 41.0 19.5 FINAL Ru[facility], [address] [place] [address] 210 [place] [phone] 0 Phone: () - 03/13 CBC w/ auto diff EO % % 0.0 7.0 0.9 FINAL Ruiz [facility], [address] [place] [address] 210 [place] [phone] 0 Phone: () - 03/13 CBC w/ auto diff BA % % 0.0 2.0 0.4 FINAL Ruiz [facility], [address] [place] [address] 210 [place] [phone] 0 Phone: () - 03/13 CBC w/ auto diff LY # K/uL 0.4 3.6 1.5 FINAL Ruiz [facility], [address] [place] [address] 210 [place] [phone] 0 Phone: () - 03/13 CBC w/ auto diff MO # K/uL 0.2 1.3 0.7 FINAL Ruiz [facility], [address] [place] [address] 210 [place] [phone] 0 Phone: () - 03/13 CBC w/ auto diff EO # K/uL 0.0 0.6 0.1 FINAL Ruiz [facility], [address] [place] [address] 210 [place] [phone] 0 Phone: () - 03/13 CBC w/ auto diff BA # K/uL 0.0 0.2 0.0 FINAL Ruiz Carmona toni [facility], [address] [place] [address] [facility] [id number] 0 Phone: () - 03/13 CBC w/ auto diff NRBC % #/100W BC 0.0 0.2 0.0 FINAL Ruiz [facility], [address] [place] [address] [facility] [phone] 0 Phone: () - 03/13 CBC w/ auto diff RBC M/uL 3.9 5.1 4.58 FINAL Ruiz Carmona[address] [facility] [phone] 0 Phone: () - 03/13 CBC w/ auto diff HCT % 35.0 48.0 45.2 FINAL Ruiz Carmona[address] [facility] [id number] 0 Phone: () - 03/13 CBC w/ auto diff MCV fL 80.0 104.0 98.7 FINAL Ru[facility], [address] [place] [address] [facility] [id number] 0 Phone: () - 03/13 CBC w/ auto diff MCH pg 26.0 35.0 31.9 FINAL [facility], [address] [place] [address] [facility] [id number] 0 Phone: () - 03/13 CBC w/ auto diff MCHC g/dL 30.0 35.0 32.3 FINAL [facility], [address] [place] [address] 210 [place] [phone] 0 Phone: () - 03/13 CBC w/ auto diff MPV fL 9.5 13.4 9.7 FINAL Ruiz Carmona[address] 210 [place] [phone] 0 Phone: () - 03/13 CBC w/ auto diff RDW % 11.4 16.1 12.90 FINAL Ruiz Rousey [facility] [address] [facility] [address] [facility] [id number] 0 Phone: () - 03/13 CMP Album in g/dL 3.2 5.2 4.5 FINAL Ruiz [place] [facility], [address] [facility] 100 [facility] [id number] 0 Phone: () - 03/13 CMP Alkal ine phosp hatas e U/L 46.0 116.0 103 FINAL Ruiz Terrazas [facility] [address] [facility] 100 [facility] [id number] 0 Phone: () - 03/13 CMP ALT/S GPT U/L 7.0 40.0 19 FINAL [place] [address] [address] [facility] 100 [facility] [id number] 0 Phone: () - 03/13 CMP AST/S GOT U/L 13.0 40.0 23 FINAL Ruiz Raya [place] [address] [address] [facility] 100 [facility] [id number] 0 Phone: () - 03/13 CMP BUN mg/dL 9.0 23.0 13 FINAL [place] [address] [address] [facility] 100 [facility] [id number] 0 Phone: () - 03/13 CMP Calci um mg/dL 8.7 10.4 10.5 High FINAL Ruiz Raya [place] [address] [id number] 0 Phone: () - 03/13 CMP Chlor rakan mmol/L 96.0 114.0 107 FINAL Ruiz Raya [place] [address] [id number] 0 Phone: () - 03/13 CMP CO2 mmol/L 20.0 31.0 24 The expected total allowable error for CO2 is 5.6%. We have seen up to 10% differenc e in values if reported at the end of the 96 hour stability window. Please consider the clinical significa nce of a 2.0-2.5 mmol/L lower reported CO2 value if reported at the end of the 96 hour stability window. FINAL Ruiz Terrazas [facility], [facility] N [address] [phone] 0 Phone: () - 03/13 CMP Creat inine mg/dL 0.5 1.2 1.25 High FINAL Ruiz Terrazas [facility] [address] [id number] 0 Phone: () - 03/13 CMP GFR estim ate ml/min /1.73m ^2 46.9 Low GFR is calculate d using the CKD-EPI equation. FINAL [place] [address] [id number] 0 Phone: () - 03/13 CMP Gluco se mg/dL 73.0 126.0 111 FINAL [place] [address] [id number] 0 Phone: () - 03/13 CMP Potas sium mmol/L 3.5 5.1 4.2 FINAL Ruiz Raya [place] [address] [id number] 0 Phone: () - 03/13 CMP Sodiu m mmol/L 136.0 145.0 144 FINAL [place] [address] [id number] 0 Phone: () - 03/13 CMP Bilir ubin, total mg/dL 0.3 1.2 0.8 FINAL Ruiz Raya [place] [address] [id number] 0 Phone: () - 03/13 CMP Total prote in g/dL 5.7 8.2 6.7 FINAL Ruiz Raya [place] [address] [id number] 0 Phone: () - 09/11 CBC w/ auto diff WBC K/uL 3.0 8.9 5.7 FINAL [facility], [address] [place] [address] [facility] [phone] 0 Phone: () - 09/11 CBC w/ auto diff HGB g/dL 11.3 15.2 13.8 FINAL Kennedy [place] [facility], [address] [place] [address] 210 [place] [phone] 0 Phone: () - 09/11 CBC w/ auto diff PLT K/uL 113.0 364.0 167 FINAL Kennedy [place] [facility], [address] [place] [address] 210 [place] [phone] 0 Phone: () - 09/11 CBC w/ auto diff Augustus # (ANC) K/uL 1.6 6.6 3.7 FINAL Kennedy [place]ub [place] [facility], [address] [place] [address] [facility] [id number] 0 Phone: () - 09/11 CBC w/ auto diff Augustus % % 43.0 74.0 64.2 FINAL Kennedy [place] [facility], [address] [place] [address] [facility] [id number] 0 Phone: () - 09/11 CBC w/ auto diff IG % % 0.0 0.5 0.2 FINAL Kennedy [place]ub [place] [facility], [address] [place] [address] 210 [place] [phone] 0 Phone: () - 09/11 CBC w/ auto diff IG # K/uL 0.0 0.03 0.01 FINAL Kennedy [place] [facility], [address] [place] [address] [facility] [id number] 0 Phone: () - 09/11 CBC w/ auto diff LY % % 14.0 41.0 24.0 FINAL Kennedy [place] [facility], [address] [place] [address] 210 [place] [phone] 0 Phone: () - 09/11 CBC w/ auto diff MO % % 6.0 15.0 9.9 FINAL Kennedy [place] [facility], [address] [place] [address] 210 [place] [phone] 0 Phone: () - 09/11 CBC w/ auto diff EO % % 0.0 7.0 1.2 FINAL Kennedy Unglaub [facility] [place], [address] [place] [address] 210 [place] [phone] 0 Phone: () - 09/11 CBC w/ auto diff BA % % 0.0 2.0 0.5 FINAL Kennedy Doloersub [facility] [place], [address] [place] [address] 210 [place] [phone] 0 Phone: () - 09/11 CBC w/ auto diff LY # K/uL 0.4 3.6 1.4 FINAL Kennedy Doloresub [facility] [place], [address] [place] [address] 210 [place] [phone] 0 Phone: () - 09/11 CBC w/ auto diff MO # K/uL 0.2 1.3 0.6 FINAL Kennedyeddie Carmoanot a [facility] [place], [address] [place] [address] 210 [place] [phone] 0 Phone: () - 09/11 CBC w/ auto diff EO # K/uL 0.0 0.6 0.1 FINAL Kennedy Carmonaot a [facility] [place], [address] [place] [address] 210 [place] [phone] 0 Phone: () - 09/11 CBC w/ auto diff BA # K/uL 0.0 0.2 0.0 FINAL Kennedy Carmonaot a [facility] [place], [address] [place] [address] 210 [place] [phone] 0 Phone: () - 09/11 CBC w/ auto diff NRBC % #/100W BC 0.0 0.2 0.0 FINAL Kennedy Carmonaot a [facility] [place], [address] [place] [address] 210 [place] [id number] 0 Phone: () - 09/11 CBC w/ auto diff RBC M/uL 3.9 5.1 4.38 FINAL Kennedy Doloresub Mathe[place] a [facility] [place], [address] [place] [address] 210 [place] [phone] 0 Phone: () - 09/11 CBC w/ auto diff HCT % 35.0 48.0 42.8 FINAL Kennedy Doloresub [place] a [facility] [place], [address] [place] [address] [facility] [id number] 0 Phone: () - 09/11 CBC w/ auto diff MCV fL 80.0 104.0 97.7 FINAL Kennedy [place]ub [place] [facility] - [address] 210 [place] [id number] 0 Phone: () - 09/11 CBC w/ auto diff MCH pg 26.0 35.0 31.5 FINAL Kennedy [place] [address] 210 [place] [id number] 0 Phone: () - 09/11 CBC w/ auto diff MCHC g/dL 30.0 35.0 32.2 FINAL Kennedy [place] [address] [facility] [id number] 0 Phone: () - 09/11 CBC w/ auto diff MPV fL 9.5 13.4 9.3 Low FINAL Kennedy [place] [address] 210 [place] [phone] 0 Phone: () - 09/11 CBC w/ auto diff RDW % 11.4 16.1 12.70 FINAL Kennedy Doloresub [place] [address] 210 [place] [phone] 0 Phone: () - 09/11 PRIOR RESUL T Not Given FINAL Kennedy Unglaub [facility] [address] [place] [id number] 4 09/11 SOUR E: Periphe ral Blood FINAL Kennedy Unglaub [facility] [address] [place] [id number] 4 09/11 BCR ABL1/ ABL1 % % 0.000 FINAL Kennedy Unglaub [facility] [address] [place] [id number] 4 09/11 BCR ABL1/ ABL1 % (IS) % 0.000 FINAL Kennedy Unglaub [facility] [address] [place] [id number] 4 09/11 INTER PRETA TION see note The P190 [...] l informati on, please refer tohttp:// education [email or web address](This link is being provided forinform ational/e ducationa l purposes only.)Ass ay sensitivi ty is at least 4.5-logs below baselineB CR-ABL1 transcrip t levels but is dependent onquantit y and quality of RNA used for testing and thecellul arity of the sample.Th is test was developed and its analytica lperforma nce character istics have been determine dby [facility] , [place], [place].It has not been cleared or approved by the FDA. Thisassay has been validated pursuant to the CLIAregul ations and is used for clinical purposes. Meera drake, Ph.D., [facility]IT[facility]ech nical Director, Molecular Oncology FINAL Kennedy Unglaub [facility] [address] [place] [id number] 4 09/11 P190 BCR ABL1 Not Detecte d FINAL Kennedy Unglaub [facility] [address] [place] [id number] 4 09/11 P210 BCR ABL1 Not Detecte d FINAL Kennedy Unglaub [facility] [address] [place] [id number] 4 09/11 CMP Album in g/dL 3.2 5.2 4.5 FINAL Kennedy muñoz [facility], [facility] [address] [place] [address] [phone] 0 Phone: () - 09/11 CMP Alkal ine phosp hatas e U/L 46.0 116.0 111 FINAL [place] [address] [place] [address] [phone] 0 Phone: () - 09/11 CMP ALT/S GPT U/L 7.0 40.0 22 FINAL [place] [address] [place] [address] [phone] 0 Phone: () - 09/11 CMP AST/S GOT U/L 13.0 40.0 20 FINAL [place] [address] [place] [address] [id number] 0 Phone: () - 09/11 CMP BUN mg/dL 9.0 23.0 10.0 FINAL [place] [address] [place] [address] [phone] 0 Phone: () - 09/11 CMP Calci um mg/dL 8.7 10.4 9.7 FINAL [place] [address] [place] [address] [id number] 0 Phone: () - 09/11 CMP Chlor rakan mmol/L 96.0 114.0 109 FINAL [facility], [address] [place] [address] [phone] 0 Phone: () - 09/11 CMP CO2 mmol/L 20.0 31.0 25 The expected total allowable error for CO2 is 5.6%. We have seen up to 10% differenc e in values if reported at the end of the 96 hour stability window. Please consider the clinical significa nce of a 2.0-2.5 mmol/L lower reported CO2 value if reported at the end of the 96 hour stability window. FINAL [facility], [facility] N [address] [phone] 0 Phone: () - 09/11 CMP Creat inine mg/dL 0.5 1.2 1.05 FINAL Kennedy muñoz [place] [address] [phone] 0 Phone: () - 09/11 CMP GFR estim ate ml/min /1.73m ^2 57.6 Low GFR is calculate d using the CKD-EPI equation. FINAL Kennedy muñoz [place] [address] [phone] 0 Phone: () - 09/11 CMP Gluco se mg/dL 73.0 126.0 104 FINAL Kennedy muñoz [place] [address] [id number] 0 Phone: () - 09/11 CMP Potas sium mmol/L 3.5 5.1 4.3 FINAL Kennedy Carmona toni [place] [address] [id number] 0 Phone: () - 09/11 CMP Sodiu m mmol/L 136.0 145.0 145 FINAL Kennedy Carmona toni [place] [address] [id number] 0 Phone: () - 09/11 CMP Bilir ubin, total mg/dL 0.3 1.2 0.9 FINAL Kennedy Carmona toni [place] [address] [id number] 0 Phone: () - 09/11 CMP Total prote in g/dL 5.7 8.2 6.9 FINAL Kennedy Carmona toni [place] [address] [id number] 0 Phone: () - 11/16 iSTAT creat inine panel Creat inine , iSTAT mg/dl 0.6 1.3 0.9 FINAL Nicole Ya Nini muñoz [facility], [address] [facility] [facility] [id number] Phone: () - 11/16 Xi hermosillo inyisel panel GFR estim ate ml/min /1.73m ^2 69.3 GFR is calculate d using the CKD-EPI equation. FINAL Nicole muñoz [facility] [place], [address] [place] [id number] 0 Phone: () - 11/16 CBC w/ auto diff WBC K/uL 3.0 8.9 7.6 FINAL Nicole mu[facility]oz [facility] - [place], [address] [place] [id number] 0 Phone: () - 11/16 CBC w/ auto diff HGB g/dL 11.3 15.2 13.4 FINAL Nicole muñoz [facility] - [place], [address] [place] [id number] 0 Phone: () - 11/16 CBC w/ auto diff PLT K/uL 113.0 364.0 162 FINAL Nicole muñoz [facility] - [place], [address] [place] [id number] 0 Phone: () - 11/16 CBC w/ auto diff Augustus # (ANC) K/uL 1.6 6.6 6.7 High FINAL Nicole muñoz [facility] - [place], [address] [place] [id number] 0 Phone: () - 11/16 CBC w/ auto diff Augustus % % 43.0 74.0 88.7 High FINAL Nicole muñoz [facility] - [place], [address] [place] [id number] 0 Phone: () - 11/16 CBC w/ auto diff IG % % 0.0 0.5 0.7 High FINAL Nicole muñoz [facility] - [place], [address] [place] [id number] 0 Phone: () - 11/16 CBC w/ auto diff IG # K/uL 0.0 0.03 0.05 High FINAL Nicole Carmonaot a [facility] - [place], [address] [place] [id number] 0 Phone: () - 11/16 CBC w/ auto diff LY % % 14.0 41.0 8.8 Low FINAL Nicole Carmonaot a [facility] - [place], [address] [place] [id number] 0 Phone: () - 11/16 CBC w/ auto diff MO % % 6.0 15.0 1.8 Low FINAL Nicole Carmonaot a [facility] - [place], [address] [place] [id number] 0 Phone: () - 11/16 CBC w/ auto diff EO % % 0.0 7.0 0.0 FINAL Nicole Carmonaot a [facility] - [place], [address] [place] [id number] 0 Phone: () - 11/16 CBC w/ auto diff BA % % 0.0 2.0 0.0 FINAL Nicole Carmonaot a [facility] - [place], [address] [place] [id number] 0 Phone: () - 11/16 CBC w/ auto diff LY # K/uL 0.4 3.6 0.7 FINAL Nicole Terrazas a [facility] - [place], [address] [place] [id number] 0 Phone: () - 11/16 CBC w/ auto diff MO # K/uL 0.2 1.3 0.1 Low FINAL Nicole Carmonaot a [facility] - [place], [address] [place] [id number] 0 Phone: () - 11/16 CBC w/ auto diff EO # K/uL 0.0 0.6 0.0 FINAL Nicole Carmonaot a [facility] - [place], [address] [place] [id number] 0 Phone: () - 11/16 CBC w/ auto diff BA # K/uL 0.0 0.2 0.0 FINAL Nicole Carmonaot a [facility] - [place], [address] [place] [id number] 0 Phone: () - 11/16 CBC w/ auto diff NRBC % #/100W BC 0.0 0.2 0.0 FINAL Nicole Carmonaot a [facility] - [place], [address] [place] [id number] 0 Phone: () - 11/16 CBC w/ auto diff RBC M/uL 3.9 5.1 4.16 FINAL Nicole Terrazas a [facility] - [place], [address] [place] [id number] 0 Phone: () - 11/16 CBC w/ auto diff HCT % 35.0 48.0 39.7 FINAL Nicole Felton Mathewot a [facility] - [place], [address] [place] [id number] 0 Phone: () - 11/16 CBC w/ auto diff MCV fL 80.0 104.0 95.4 FINAL Nicole mu[facility]oz [facility] - [place], [address] [place] [id number] 0 Phone: () - 11/16 CBC w/ auto diff MCH pg 26.0 35.0 32.2 FINAL Nicole Ya Nini a [facility] - [place], [address] [place] [id number] 0 Phone: () - 11/16 CBC w/ auto diff MCHC g/dL 30.0 35.0 33.8 FINAL Nicole Carmonaot a [facility] - [place], [address] [place] [id number] 0 Phone: () - 11/16 CBC w/ auto diff MPV fL 9.5 13.4 9.3 Low FINAL Nicole Ya Mathewot a [facility] - [place], [address] [place] [id number] 0 Phone: () - 11/16 CBC w/ auto diff RDW % 11.4 16.1 11.90 FINAL Nicole muñoz On[facility], [address] [facility] [id number] 0 Phone: () - 11/16 CMP Album in g/dL 3.2 5.2 4.5 FINAL [facility], [address] [facility] [address] [place] [address] [id number] 0 Phone: () - 11/16 CMP Alkal ine phosp hatas e U/L 46.0 116.0 91 FINAL [place] [address] [id number] 0 Phone: () - 11/16 CMP ALT/S GPT U/L 7.0 40.0 15 FINAL [place] [address] [id number] 0 Phone: () - 11/16 CMP AST/S GOT U/L 13.0 40.0 18 FINAL [place] [address] [id number] 0 Phone: () - 11/16 CMP BUN mg/dL 9.0 23.0 16.0 FINAL [place] [address] [id number] 0 Phone: () - 11/16 CMP Calci um mg/dL 8.7 10.4 9.8 FINAL [place] [address] [id number] 0 Phone: () - 11/16 CMP Chlor rakan mmol/L 96.0 114.0 109 FINAL [place] [address] [id number] 0 Phone: () - 11/16 CMP CO2 mmol/L 20.0 31.0 22 The expected total allowable error for CO2 is 5.6%. We have seen up to 10% differenc e in values if reported at the end of the 96 hour stability window. Please consider the clinical significa nce of a 2.0-2.5 mmol/L lower reported CO2 value if reported at the end of the 96 hour stability window. FINAL Nicole Terrazas [place] [address] [id number] 0 Phone: () - 11/16 CMP Creat inine mg/dL 0.5 1.2 0.88 FINAL Nicole Carmona[address] [id number] 0 Phone: () - 11/16 CMP GFR estim ate ml/min /1.73m ^2 71.2 GFR is calculate d using the CKD-EPI equation. FINAL Nicole Carmona[address] [id number] 0 Phone: () - 11/16 CMP Gluco se mg/dL 73.0 126.0 152 High FINAL Nicole Carmona[address] [id number] 0 Phone: () - 11/16 CMP Potas sium mmol/L 3.5 5.1 4.2 FINAL Nicole Carmona[address] [id number] 0 Phone: () - 11/16 CMP Sodiu m mmol/L 136.0 145.0 142 FINAL [place] [address] [id number] 0 Phone: () - 11/16 CMP Bilir ubin, total mg/dL 0.3 1.2 0.6 FINAL Nicole Carmona[address] [id number] 0 Phone: () - 11/16 CMP Total prote in g/dL 5.7 8.2 6.8 FINAL [place] [address] [id number] 0 Phone: () - 11/21 Smear revie w panel CBC Smear revie w comme nts Consist ent with reporte d results Abnorma l Lymphs present Large and-or giant platele ts present FINAL Nicole Terrazas a [facility] - [place], [address] [place] [id number] 0 Phone: () - 11/21 CBC w/ auto diff WBC K/uL 3.0 8.9 1.0 Low FINAL Nicole Terrazas a [facility] - [place], [address] [place] [id number] 0 Phone: () - 11/21 CBC w/ auto diff HGB g/dL 11.3 15.2 13.2 FINAL Nicole Terrazas a [facility] - [place], [address] [place] [id number] 0 Phone: () - 11/21 CBC w/ auto diff PLT K/uL 113.0 364.0 47 Critica l hematol ogy result obtaine d Criti todd Low FINAL Nicole Terrazas a [facility] [place], [address] [place] [id number] 0 Phone: () - 11/21 CBC w/ auto diff Augustus # (ANC) K/uL 1.6 6.6 0.4 Critica l hematol ogy result obtaine d Criti todd Low FINAL Nicole Terrazas a [facility] - [place], [address] [place] [id number] 0 Phone: () - 11/21 CBC w/ auto diff Augustus % % 43.0 74.0 34.7 Low FINAL Nicole Terrazas a [facility] - [place], [address] [place] [id number] 0 Phone: () - 11/21 CBC w/ auto diff IG % % 0.0 0.5 1.9 High FINAL Nicole Terrazas a [facility] - [place], [address] [place] [id number] 0 Phone: () - 11/21 CBC w/ auto diff IG # K/uL 0.0 0.03 0.02 FINAL Nicole Ya [place] [facility] - [place], [address] [place] [id number] 0 Phone: () - 11/21 CBC w/ auto diff LY % % 14.0 41.0 56.7 High FINAL Nicole Carmonaot a [facility] - [place], [address] [place] [id number] 0 Phone: () - 11/21 CBC w/ auto diff MO % % 6.0 15.0 1.9 Low FINAL Nicole Carmonaot a [facility] - [place], [address] [place] [id number] 0 Phone: () - 11/21 CBC w/ auto diff EO % % 0.0 7.0 1.9 FINAL Nicole Carmonaot a [facility] - [place], [address] [place] [id number] 0 Phone: () - 11/21 CBC w/ auto diff BA % % 0.0 2.0 2.9 High FINAL Nicole Terrazas a [facility] - [place], [address] [place] [id number] 0 Phone: () - 11/21 CBC w/ auto diff LY # K/uL 0.4 3.6 0.6 FINAL Nicole Terrazas a [facility] - [place], [address] [place] [id number] 0 Phone: () - 11/21 CBC w/ auto diff MO # K/uL 0.2 1.3 0.0 Low FINAL Nicole Carmonaot a [facility] - [place], [address] [place] [id number] 0 Phone: () - 11/21 CBC w/ auto diff EO # K/uL 0.0 0.6 0.0 FINAL Nicole Carmonaot a [facility] - [place], [address] [place] [id number] 0 Phone: () - 11/21 CBC w/ auto diff BA # K/uL 0.0 0.2 0.0 FINAL Nicole Carmonaot a [facility] - [place], [address] [place] [id number] 0 Phone: () - 11/21 CBC w/ auto diff NRBC % #/100W BC 0.0 0.2 0.0 FINAL Nicole Carmonaot a [facility] - [place], [address] [place] [id number] 0 Phone: () - 11/21 CBC w/ auto diff RBC M/uL 3.9 5.1 4.07 FINAL Nicole mu[facility]oz [facility] - [place], [address] [place] [id number] 0 Phone: () - 11/21 CBC w/ auto diff HCT % 35.0 48.0 38.4 FINAL Nicole mu[facility]oz [facility] - [place], [address] [place] [id number] 0 Phone: () - 11/21 CBC w/ auto diff MCV fL 80.0 104.0 94.3 FINAL Nicole mu[facility]oz [facility] - [place], [address] [place] [id number] 0 Phone: () - 11/21 CBC w/ auto diff MCH pg 26.0 35.0 32.4 FINAL Nicole mu[facility]oz [facility] - [place], [address] [place] [id number] 0 Phone: () - 11/21 CBC w/ auto diff MCHC g/dL 30.0 35.0 34.4 FINAL Nicole Carmonaot a [facility] - [place], [address] [place] [id number] 0 Phone: () - 11/21 CBC w/ auto diff MPV fL 9.5 13.4 10.1 FINAL Nicole Carmonaot a [facility] - [place], [address] [place] [id number] 0 Phone: () - 11/21 CBC w/ auto diff RDW % 11.4 16.1 11.80 FINAL Nicole mu[facility]oz [facility] - [place], [address] [facility] [address] [place] [id number] 0 Phone: () - 11/21 CBC w/ auto diff Auto CBC comme nts Slide review to follow FINAL Nicole mu[facility]oz [facility] - [place], [address] [facility] [address] [place] [id number] 0 Phone: () - 11/21 CMP Album in g/dL 3.2 5.2 3.9 FINAL Nicole muñoz [place] [address] [id number] 0 Phone: () - 11/21 CMP Alkal ine phosp hatas e U/L 46.0 116.0 90 FINAL Nicole muñoz [place] [address] [id number] 0 Phone: () - 11/21 CMP ALT/S GPT U/L 7.0 40.0 37 FINAL Nicole Terrazas [place] [address] [id number] 0 Phone: () - 11/21 CMP AST/S GOT U/L 13.0 40.0 31 FINAL Nicole muñoz [place] [address] [id number] 0 Phone: () - 11/21 CMP BUN mg/dL 9.0 23.0 13.0 FINAL Nicole umñoz [place] [address] [address] [facility] [address] [id number] 0 Phone: () - 11/21 CMP Calci um mg/dL 8.7 10.4 8.9 FINAL Nicole muñoz [place] [address] [id number] 0 Phone: () - 11/21 CMP Chlor rakan mmol/L 96.0 114.0 107 FINAL Nicole Terrazas [place] [address] [address] [facility] [address] [id number] 0 Phone: () - 11/21 CMP CO2 mmol/L 20.0 31.0 26 The expected total allowable error for CO2 is 5.6%. We have seen up to 10% differenc e in values if reported at the end of the 96 hour stability window. Please consider the clinical significa nce of a 2.0-2.5 mmol/L lower reported CO2 value if reported at the end of the 96 hour stability window. [facility], [address] [id number] 0 Phone: () - 11/21 CMP Creat inine mg/dL 0.5 1.2 0.83 FINAL Nicole [place] [address] [id number] 0 Phone: () - 11/21 CMP GFR estim ate ml/min /1.73m ^2 76.3 GFR is calculate d using the CKD-EPI equation. FINAL [place] [address] [id number] 0 Phone: () - 11/21 CMP Gluco se mg/dL 73.0 126.0 99 FINAL Nicoledarius [place] [address] [id number] 0 Phone: () - 11/21 CMP Potas sium mmol/L 3.5 5.1 3.8 FINAL Nicole [place] [address] [id number] 0 Phone: () - 11/21 CMP Sodiu m mmol/L 136.0 145.0 142 [facility] [address] [id number] 0 Phone: () - 11/21 CMP Bilir ubin, total mg/dL 0.3 1.2 1.3 High FINAL [facility] [address] [id number] 0 Phone: () - 11/21 CMP Total prote in g/dL 5.7 8.2 6.0 FINAL Nicole muñoz [facility] - [place], [address] [place] [id number] 0 Phone: () - 11/27 iSTAT creat inine panel Creat inine , iSTAT mg/dl 0.6 1.3 1.1 FINAL Nicole muñoz [facility] - [place], [address] [place] [id number] 0 Phone: () - 11/27 iSTAT creat inine panel GFR estim ate ml/min /1.73m ^2 54.4 Low GFR is calculate d using the CKD-EPI equation. FINAL Nicole mu[facility]oz [facility] - [place], [address] [place] [id number] 0 Phone: () - 11/27 iSTAT Na+/K +/Cl- panel Sodiu m, iSTAT mmol/L 138.0 146.0 137 Low Reference range adjusted 0 with implement ation of I-Stat 8+ cartridge . FINAL Nicole muñoz [facility] - [place], [address] [place] [id number] 0 Phone: () - 11/27 iSTAT Na+/K +/Cl- panel Potas sium, iSTAT mmol/L 3.5 4.9 3.4 Low Reference range adjusted 0 with implement ation of I-Stat 8+ cartridge . FINAL Nicole muñoz [facility] - [place], [address] [place] [id number] 0 Phone: () - 11/27 iSTAT Na+/K +/Cl- panel Chlor rakan, iSTAT mmol/L 98.0 109.0 99 Reference range adjusted 0 with implement ation of I-Stat 8+ cartridge . FINAL Nicole muñoz [facility] - [place], [address] [place] [id number] 0 Phone: () - 11/27 CBC w/ auto diff WBC K/uL 3.0 8.9 32.0 High FINAL Nicole Carmonaot a [facility] - [place], [address] [place] [id number] 0 Phone: () - 11/27 CBC w/ auto diff HGB g/dL 11.3 15.2 13.3 FINAL Nicole Carmonaot a [facility] - [place], [address] [place] [id number] 0 Phone: () - 11/27 CBC w/ auto diff PLT K/uL 113.0 364.0 87 Low FINAL Nicole Carmonaot a [facility] - [place], [address] [place] [id number] 0 Phone: () - 11/27 CBC w/ auto diff Augustus # (ANC) K/uL 1.6 6.6 25.7 High FINAL Nicole Carmonaot a [facility] - [place], [address] [place] [id number] 0 Phone: () - 11/27 CBC w/ auto diff Augustus % % 43.0 74.0 80.5 High FINAL Nicole Carmonaot a [facility] - [place], [address] [place] [id number] 0 Phone: () - 11/27 CBC w/ auto diff IG % % 0.0 0.5 7.6 High FINAL Nicole Carmonaot a [facility] - [place], [address] [place] [id number] 0 Phone: () - 11/27 CBC w/ auto diff IG # K/uL 0.0 0.03 2.44 High FINAL Nicole Carmonaot a [facility] - [place], [address] [place] [id number] 0 Phone: () - 11/27 CBC w/ auto diff LY % % 14.0 41.0 5.8 Low FINAL Nicole Carmonaot a [facility] - [place], [address] [place] [id number] 0 Phone: () - 11/27 CBC w/ auto diff MO % % 6.0 15.0 6.1 FINAL Nicole muñoz [facility] - [place], [address] [place] [id number] 0 Phone: () - 11/27 CBC w/ auto diff EO % % 0.0 7.0 0.0 FINAL Nicole muñoz [facility] - [place], [address] [place] [id number] 0 Phone: () - 11/27 CBC w/ auto diff BA % % 0.0 2.0 0.0 FINAL Nicole muñoz [facility] - [place], [address] [place] [id number] 0 Phone: () - 11/27 CBC w/ auto diff LY # K/uL 0.4 3.6 1.8 FINAL Nicole muñoz [facility] - [place], [address] [place] [id number] 0 Phone: () - 11/27 CBC w/ auto diff MO # K/uL 0.2 1.3 2.0 High FINAL Nicole muñoz [facility] - [place], [address] [place] [id number] 0 Phone: () - 11/27 CBC w/ auto diff EO # K/uL 0.0 0.6 0.0 FINAL Nicole muñoz [facility] - [place], [address] [place] [id number] 0 Phone: () - 11/27 CBC w/ auto diff BA # K/uL 0.0 0.2 0.0 FINAL Nicole muñoz [facility] - [place], [address] [place] [id number] 0 Phone: () - 11/27 CBC w/ auto diff NRBC % #/100W BC 0.0 0.2 0.3 High FINAL Nicole muñoz [facility] - [place], [address] [place] [id number] 0 Phone: () - 11/27 CBC w/ auto diff RBC M/uL 3.9 5.1 4.09 FINAL Nicole Ya Mathewdamaris muñoz [facility] - [place], [address] [facility] [address] [place] [id number] 0 Phone: () - 11/27 CBC w/ auto diff HCT % 35.0 48.0 38.0 FINAL Nicole Ya Mathewdamaris muñoz [facility] - [place], [address] [facility] [address] [place] [id number] 0 Phone: () - 11/27 CBC w/ auto diff MCV fL 80.0 104.0 92.9 FINAL Nicole muñoz [facility] - [place], [address] [facility] [address] [place] [id number] 0 Phone: () - 11/27 CBC w/ auto diff MCH pg 26.0 35.0 32.5 FINAL Nicole muñoz [facility] - [place], [address] [facility] [address] [place] [id number] 0 Phone: () - 11/27 CBC w/ auto diff MCHC g/dL 30.0 35.0 35.0 FINAL Nicole Ya Mathewdamaris muñoz [facility] - [place], [address] [facility] [address] [place] [id number] 0 Phone: () - 11/27 CBC w/ auto diff MPV fL 9.5 13.4 9.1 Low FINAL Nicole Ya Mathewdamaris muñoz [facility] - [place], [address] [facility] [address] [place] [id number] 0 Phone: () - 11/27 CBC w/ auto diff RDW % 11.4 16.1 11.60 FINAL Nicole Ya Mathewdamaris muñoz [facility] - [place], [address] [address] [place] [id number] 0 Phone: () - 12/07 CBC w/ auto diff WBC K/uL 3.0 8.9 17.1 High FINAL Tiara Coronado Mathewdamaris muñoz [facility] - [place], [address] [place] [id number] 0 Phone: () - 12/07 CBC w/ auto diff HGB g/dL 11.3 15.2 10.9 Low FINAL Tiara Carmonaot a [facility] - [place], [address] [place] [id number] 0 Phone: () - 12/07 CBC w/ auto diff PLT K/uL 113.0 364.0 157 FINAL Tiara Carmonaot a [facility] - [place], [address] [place] [id number] 0 Phone: () - 12/07 CBC w/ auto diff Augustus # (ANC) K/uL 1.6 6.6 15.3 High FINAL Tiara Carmonaot a [facility] - [place], [address] [place] [id number] 0 Phone: () - 12/07 CBC w/ auto diff Augustus % % 43.0 74.0 89.4 High FINAL Tiara Carmonaot a [facility] - [place], [address] [place] [id number] 0 Phone: () - 12/07 CBC w/ auto diff IG % % 0.0 0.5 1.8 High FINAL Tiara Carmonaot a [facility] - [place], [address] [place] [id number] 0 Phone: () - 12/07 CBC w/ auto diff IG # K/uL 0.0 0.03 0.30 High FINAL Tiara Carmonaot a [facility] - [place], [address] [place] [id number] 0 Phone: () - 12/07 CBC w/ auto diff LY % % 14.0 41.0 5.2 Low FINAL Tiara Carmonaot a [facility] - [place], [address] [place] [id number] 0 Phone: () - 12/07 CBC w/ auto diff MO % % 6.0 15.0 3.5 Low FINAL Tiara Carmonaot a [facility] - [place], [address] [place] [id number] 0 Phone: () - 12/07 CBC w/ auto diff EO % % 0.0 7.0 0.0 FINAL Tiara Carmonaot a [facility] - [place], [address] [place] [id number] 0 Phone: () - 12/07 CBC w/ auto diff BA % % 0.0 2.0 0.1 FINAL Tiara Carmonaot a [facility] - [place], [address] [place] [id number] 0 Phone: () - 12/07 CBC w/ auto diff LY # K/uL 0.4 3.6 0.9 FINAL Tiara Carmonaot a [facility] - [place], [address] [place] [id number] 0 Phone: () - 12/07 CBC w/ auto diff MO # K/uL 0.2 1.3 0.6 FINAL Tiara Carmonaot a [facility] - [place], [address] [place] [id number] 0 Phone: () - 12/07 CBC w/ auto diff EO # K/uL 0.0 0.6 0.0 FINAL Tiara Carmonaot a [facility] - [place], [address] [place] [id number] 0 Phone: () - 12/07 CBC w/ auto diff BA # K/uL 0.0 0.2 0.0 FINAL Tiara Carmonaot a [facility] - [place], [address] [place] [id number] 0 Phone: () - 12/07 CBC w/ auto diff NRBC % #/100W BC 0.0 0.2 0.0 FINAL Tiara Carmonaot a [facility] - [place], [address] [place] [id number] 0 Phone: () - 12/07 CBC w/ auto diff RBC M/uL 3.9 5.1 3.37 Low FINAL Tiara Carmonaot a [facility] - [place], [address] [facility] [address] [place] [id number] 0 Phone: () - 12/07 CBC w/ auto diff HCT % 35.0 48.0 32.8 Low FINAL Tiara Carmonaot a [facility] - [place], [address] [facility] [address] [place] [id number] 0 Phone: () - 12/07 CBC w/ auto diff MCV fL 80.0 104.0 97.3 FINAL Tiara Carmonaot a [facility] - [place], [address] [facility] [address] [place] [id number] 0 Phone: () - 12/07 CBC w/ auto diff MCH pg 26.0 35.0 32.3 FINAL Tiara Carmonaot a [facility] - [place], [address] [facility] [address] [place] [id number] 0 Phone: () - 12/07 CBC w/ auto diff MCHC g/dL 30.0 35.0 33.2 FINAL Tiara Carmonaot a [facility] - [place], [address] [facility] [address] [place] [id number] 0 Phone: () - 12/07 CBC w/ auto diff MPV fL 9.5 13.4 8.9 Low FINAL Tiara Carmonaot a [facility] - [place], [address] [facility] [address] [place] [id number] 0 Phone: () - 12/07 CBC w/ auto diff RDW % 11.4 16.1 12.70 FINAL Tiara Carmonaot a [facility] - [place], [address] [facility] [address] [place] [id number] 0 Phone: () - 12/07 CMP Album in g/dL 3.2 5.2 3.9 FINAL Tiara Carmoanot a Oncology - [place], [address] [place] [id number] 0 Phone: () - 12/07 CMP Alkal ine phosp hatas e U/L 46.0 116.0 97 FINAL [facility] [address] [facility] [id number] 0 Phone: () - 12/07 CMP ALT/S GPT U/L 7.0 40.0 27 FINAL [facility] [address] [facility] 100 [facility] [id number] 0 Phone: () - 12/07 CMP AST/S GOT U/L 13.0 40.0 17 FINAL [place] [address] [facility] 100 [facility] [id number] 0 Phone: () - 12/07 CMP BUN mg/dL 9.0 23.0 12.0 FINAL [place] [address] [facility] 100 [facility] [id number] 0 Phone: () - 12/07 CMP Calci um mg/dL 8.7 10.4 9.8 FINAL [place] [address] [address] [facility] [address] [facility] [id number] 0 Phone: () - 12/07 CMP Chlor rakan mmol/L 96.0 114.0 110 FINAL [place] [address] [address] [facility] [address] [id number] 0 Phone: () - 12/07 CMP CO2 mmol/L 20.0 31.0 21 The expected total allowable error for CO2 is 5.6%. We have seen up to 10% differenc e in values if reported at the end of the 96 hour stability window. Please consider the clinical significa nce of a 2.0-2.5 mmol/L lower reported CO2 value if reported at the end of the 96 hour stability window. FINAL [place] [address] [address] [facility] [address] [facility] [id number] 0 Phone: () - 12/07 CMP Creat inine mg/dL 0.5 1.2 0.89 FINAL [place] [address] [facility] [id number] 0 Phone: () - 12/07 CMP GFR estim ate ml/min /1.73m ^2 70.2 GFR is calculate d using the CKD-EPI equation. FINAL Tiara muñoz [facility], [address] [facility] [id number] 0 Phone: () - 12/07 CMP Gluco se mg/dL 73.0 126.0 152 High [facility]AL [facility], [address] [facility] [id number] 0 Phone: () - 12/07 CMP Potas sium mmol/L 3.5 5.1 4.3 FINAL [facility], [address] [facility] [id number] 0 Phone: () - 12/07 CMP Sodiu m mmol/L 136.0 145.0 145 FINAL [facility], [address] [facility] [id number] 0 Phone: () - 12/07 CMP Bilir ubin, total mg/dL 0.3 1.2 0.6 FINAL Tiaratoni Coronado [facility], [address] [facility] [id number] 0 Phone: () - 12/07 CMP Total prote in g/dL 5.7 8.2 5.9 FINAL Tiara Terrazas [facility], [address] [facility] [id number] 0 Phone: () - 12/07 iSTAT creat inine panel Creat inine , iSTAT mg/dl 0.6 1.3 0.8 FINAL Tiaratoni Carmona toni [facility] [place], [address] [place] [id number] 0 Phone: () - 12/07 iSTAT creat inine panel GFR estim ate ml/min /1.73m ^2 79.8 GFR is calculate d using the CKD-EPI equation. FINAL Tiara muñoz [facility] [place], [address] [facility] [place] [id number] 0 Phone: () - 12/12 CBC w/ auto diff WBC K/uL 3.0 8.9 2.0 Low FINAL Nicole Terrazas a [facility] [place], [address] [place] [id number] 0 Phone: () - 12/12 CBC w/ auto diff HGB g/dL 11.3 15.2 11.2 Low FINAL Nicole Terrazas a [facility] [place], [address] [place] [id number] 0 Phone: () - 12/12 CBC w/ auto diff PLT K/uL 113.0 364.0 27 Critica l hematol ogy result obtaine d Criti todd Low FINAL Nicole muñoz [facility] [place], [address] [place] [id number] 0 Phone: () - 12/12 CBC w/ auto diff Plate let, immat ure, fract ion % 0.9 11.2 7.0 FINAL Nicole muñoz [facility] [place], [address] [place] [id number] 0 Phone: () - 12/12 CBC w/ auto diff Augustus # (ANC) K/uL 1.6 6.6 1.1 Low FINAL Nicole muñoz [facility] [place], [address] [place] [id number] 0 Phone: () - 12/12 CBC w/ auto diff Augustus % % 43.0 74.0 56.0 FINAL Nicole muñoz [facility] [place], [address] [place] [id number] 0 Phone: () - 12/12 CBC w/ auto diff IG % % 0.0 0.5 3.0 High FINAL Nicole Terrazas a [facility] [place], [address] [place] [id number] 0 Phone: () - 12/12 CBC w/ auto diff IG # K/uL 0.0 0.03 0.06 High FINAL Nicole Carmonaot a [facility] [place], [address] [place] [id number] 0 Phone: () - 12/12 CBC w/ auto diff LY % % 14.0 41.0 35.5 FINAL Nicole Carmonaot a [facility] [place], [address] [place] [id number] 0 Phone: () - 12/12 CBC w/ auto diff MO % % 6.0 15.0 2.0 Low FINAL Nicole Carmonaot a [facility] [place], [address] [place] [id number] 0 Phone: () - 12/12 CBC w/ auto diff EO % % 0.0 7.0 1.0 FINAL Nicole Carmonaot a [facility] [place], [address] [place] [id number] 0 Phone: () - 12/12 CBC w/ auto diff BA % % 0.0 2.0 2.5 High FINAL Nicole Carmonaot a [facility] [place], [address] [place] [id number] 0 Phone: () - 12/12 CBC w/ auto diff LY # K/uL 0.4 3.6 0.7 FINAL Nicole Carmonaot a [facility] [place], [address] [place] [id number] 0 Phone: () - 12/12 CBC w/ auto diff MO # K/uL 0.2 1.3 0.0 Low FINAL Nicole Carmonaot a [facility] [place], [address] [place] [id number] 0 Phone: () - 12/12 CBC w/ auto diff EO # K/uL 0.0 0.6 0.0 FINAL Nicole Carmonaot a [facility] [place], [address] [place] [id number] 0 Phone: () - 12/12 CBC w/ auto diff BA # K/uL 0.0 0.2 0.1 FINAL Nicole Carmonaot a [facility] [place], [address] [place] [id number] 0 Phone: () - 12/12 CBC w/ auto diff NRBC % #/100W BC 0.0 0.2 1.0 High FINAL Nicole Terrazas a [facility] [place], [address] [place] [id number] 0 Phone: () - 12/12 CBC w/ auto diff RBC M/uL 3.9 5.1 3.51 Low FINAL Nicole muñoz [facility] [place], [address] [place] [id number] 0 Phone: () - 12/12 CBC w/ auto diff HCT % 35.0 48.0 33.7 Low FINAL Nicole muñoz [facility] [place], [address] [place] [id number] 0 Phone: () - 12/12 CBC w/ auto diff MCV fL 80.0 104.0 96.0 FINAL Nicole muñoz [facility] [place], [address] [place] [id number] 0 Phone: () - 12/12 CBC w/ auto diff MCH pg 26.0 35.0 31.9 FINAL Nicole muñoz [facility] [place], [address] [place] [id number] 0 Phone: () - 12/12 CBC w/ auto diff MCHC g/dL 30.0 35.0 33.2 FINAL Nicole muñoz [facility] [place], [address] [place] [id number] 0 Phone: () - 12/12 CBC w/ auto diff MPV fL 9.5 13.4 11.1 FINAL Nicole Ya Mathewot toni [facility] [place], [address] [place] [id number] 0 Phone: () - 12/12 CBC w/ auto diff RDW % 11.4 16.1 13.00 FINAL Nicole muñoz [facility] [place], [address] [facility] [address] [place] [id number] 0 Phone: () - 12/12 iSTAT Na+/K +/Cl- panel Sodiu m, iSTAT mmol/L 138.0 146.0 137 Low Reference range adjusted 0 with implement ation of I-Stat 8+ cartridge . FINAL Nicole muñoz [facility] [place], [address] [facility] [address] [place] [id number] 0 Phone: () - 12/12 iSTAT Na+/K +/Cl- panel Potas sium, iSTAT mmol/L 3.5 4.9 3.9 Reference range adjusted 0 with implement ation of I-Stat 8+ cartridge . FINAL Nicole muñoz [facility] [place], [address] [facility] [address] [place] [phone] 0 Phone: () - 12/12 iSTAT Na+/K +/Cl- panel Chlor rakan, iSTAT mmol/L 98.0 109.0 99 Reference range adjusted 0 with implement ation of I-Stat 8+ cartridge . FINAL Nicole muñoz [facility] [place], [address] [facility] [address] [place] [id number] 0 Phone: () - 12/27 CMP Album in g/dL 3.2 5.2 3.7 FINAL Nicole muñoz Oncology [facility], [address] [place] [id number] 0 Phone: () - 12/27 CMP Alkal ine phosp hatas e U/L 46.0 116.0 94 FINAL Nicole muñoz Oncology [facility], [address] [place] [id number] 0 Phone: () - 12/27 CMP ALT/S GPT U/L 7.0 40.0 33 FINAL Nicole muñoz [place] [address] [id number] 0 Phone: () - 12/27 CMP AST/S GOT U/L 13.0 40.0 21 FINAL Nicole muñoz [place] [address] [id number] 0 Phone: () - 12/27 CMP BUN mg/dL 9.0 23.0 8.0 Low FINAL Nicole muñoz [place] [address] [id number] 0 Phone: () - 12/27 CMP Calci um mg/dL 8.7 10.4 8.5 Low FINAL Nicole muñoz [place] [address] [id number] 0 Phone: () - 12/27 CMP Chlor rakan mmol/L 96.0 114.0 114 FINAL [place] [address] [id number] 0 Phone: () - 12/27 CMP CO2 mmol/L 20.0 31.0 23 The expected total allowable error for CO2 is 5.6%. We have seen up to 10% differenc e in values if reported at the end of the 96 hour stability window. Please consider the clinical significa nce of a 2.0-2.5 mmol/L lower reported CO2 value if reported at the end of the 96 hour stability window. FINAL Nicole muñoz [place] [address] [id number] 0 Phone: () - 12/27 CMP Creat inine mg/dL 0.5 1.2 0.89 FINAL [place] [address] [id number] 0 Phone: () - 12/27 CMP GFR estim ate ml/min /1.73m ^2 70.1 GFR is calculate d using the CKD-EPI equation. FINAL Nicole muñoz [place] [address] [id number] 0 Phone: () - 12/27 CMP Gluco se mg/dL 73.0 126.0 92 FINAL Nicole muñoz [facility], [address] [facility] [id number] 0 Phone: () - 12/27 CMP Potas sium mmol/L 3.5 5.1 4.3 FINAL Nicole muñoz [facility], [address] [facility] [id number] 0 Phone: () - 12/27 CMP Sodiu m mmol/L 136.0 145.0 145 FINAL Nicole muñoz [facility], [address] [facility] [id number] 0 Phone: () - 12/27 CMP Bilir ubin, total mg/dL 0.3 1.2 0.5 FINAL Nicole muñoz [facility], [address] [facility] [id number] 0 Phone: () - 12/27 CMP Total prote in g/dL 5.7 8.2 5.5 Low FINAL Nicole muñoz [facility], [address] [facility] [id number] 0 Phone: () - 12/27 CBC w/ auto diff WBC K/uL 3.0 8.9 6.3 FINAL Nicole muñoz [facility] [place] , [address] [place] [address] [address] [facility] [place] [id number] 0 Phone: () - 12/27 CBC w/ auto diff HGB g/dL 11.3 15.2 10.2 Low FINAL Nicole muñoz [facility] [place] , [address] [place] [address] d [address] [facility] [place] [id number] 0 Phone: () - 12/27 CBC w/ auto diff PLT K/uL 113.0 364.0 108 Low FINAL Nicole muñoz [facility] [place] , [address] [place] [address] [address] [facility] [place] [id number] 0 Phone: () - 12/27 CBC w/ auto diff Augustus # (ANC) K/uL 1.6 6.6 3.8 FINAL Nicole Ya [place] a [facility] [place], [address] [place] [id number] 0 Phone: () - 12/27 CBC w/ auto diff Augustus % % 43.0 74.0 60.1 FINAL Nicole Carmonaot a [facility] [place], [address] [place] [id number] 0 Phone: () - 12/27 CBC w/ auto diff IG % % 0.0 0.5 0.6 High FINAL Nicole Terrazas a [facility] [place], [address] [place] [id number] 0 Phone: () - 12/27 CBC w/ auto diff IG # K/uL 0.0 0.03 0.04 High FINAL Nicole Terrazas a [facility] [place], [address] [place] [id number] 0 Phone: () - 12/27 CBC w/ auto diff LY % % 14.0 41.0 25.1 FINAL Nicole Terrazas a [facility] [place], [address] [place] [id number] 0 Phone: () - 12/27 CBC w/ auto diff MO % % 6.0 15.0 13.7 FINAL Nicole muñoz [facility] [place], [address] [place] [id number] 0 Phone: () - 12/27 CBC w/ auto diff EO % % 0.0 7.0 0.2 FINAL Nicole Terrazas a [facility] [place], [address] [place] [id number] 0 Phone: () - 12/27 CBC w/ auto diff BA % % 0.0 2.0 0.3 FINAL Nicole Carmonaot a [facility] [place], [address] [place] [id number] 0 Phone: () - 12/27 CBC w/ auto diff LY # K/uL 0.4 3.6 1.6 FINAL Nicole Carmonaot a [facility] [place], [address] [place] [id number] 0 Phone: () - 12/27 CBC w/ auto diff MO # K/uL 0.2 1.3 0.9 FINAL Nicole Carmonaot a [facility] [place], [address] [place] [id number] 0 Phone: () - 12/27 CBC w/ auto diff EO # K/uL 0.0 0.6 0.0 FINAL Nicole Terrazas a [facility] [place], [address] [place] [id number] 0 Phone: () - 12/27 CBC w/ auto diff BA # K/uL 0.0 0.2 0.0 FINAL Nicole Terrazas a [facility] [place], [address] [place] [id number] 0 Phone: () - 12/27 CBC w/ auto diff NRBC % #/100W BC 0.0 0.2 0.0 FINAL Nicole Terrazas a [facility] [place], [address] [place] [id number] 0 Phone: () - 12/27 CBC w/ auto diff RBC M/uL 3.9 5.1 3.18 Low FINAL Nicole Terrazas a [facility] [place], [address] [place] [id number] 0 Phone: () - 12/27 CBC w/ auto diff HCT % 35.0 48.0 32.2 Low FINAL Nicole Terrazas a [facility] [place], [address] [place] [id number] 0 Phone: () - 12/27 CBC w/ auto diff MCV fL 80.0 104.0 101.3 FINAL Nicole Carmonaot a [facility] [place], [address] [place] [id number] 0 Phone: () - 12/27 CBC w/ auto diff MCH pg 26.0 35.0 32.1 FINAL Nicole muñoz [facility] [place], [address] [place] [id number] 0 Phone: () - 12/27 CBC w/ auto diff MCHC g/dL 30.0 35.0 31.7 FINAL Nicole muñoz [facility] [place], [address] [place] [id number] 0 Phone: () - 12/27 CBC w/ auto diff MPV fL 9.5 13.4 8.8 Low FINAL Nicole muñoz [facility] [place], [address] [place] [id number] 0 Phone: () - 12/27 CBC w/ auto diff RDW % 11.4 16.1 15.80 FINAL Nicole muñoz [facility] [place], [address] [place] [id number] 0 Phone: () - 12/27 iSTAT creat inine panel Creat inine , iSTAT mg/dl 0.6 1.3 1.0 FINAL Nicole muñoz [facility] [place], [address] [place] [id number] 0 Phone: () - 12/27 iSTAT creat inine panel GFR estim ate ml/min /1.73m ^2 61.0 GFR is calculate d using the CKD-EPI equation. FINAL Nicole muñoz [facility] [place], [address] [place] [id number] 0 Phone: () - 01/18 CMP Album in g/dL 3.2 5.2 3.7 FINAL Nicole muñoz [facility] - [place], [address] [place] [id number] 0 Phone: () - 01/18 CMP Alkal ine phosp hatas e U/L 46.0 116.0 94 FINAL Nicole muñoz [facility] - [place], [address] [facility] [id number] 0 Phone: () - 01/18 CMP ALT/S GPT U/L 7.0 40.0 33 FINAL Nicole muñoz [facility], [address] [facility] [address] [facility] [id number] 0 Phone: () - 01/18 CMP AST/S GOT U/L 13.0 40.0 18 FINAL Nicole muñoz [facility], [address] [facility] 100 [facility] [id number] 0 Phone: () - 01/18 CMP BUN mg/dL 9.0 23.0 10.0 FINAL Nicole muñoz [facility], [address] [facility] 100 [facility] [id number] 0 Phone: () - 01/18 CMP Calci um mg/dL 8.7 10.4 9.0 FINAL Nicole muñoz [facility], [facility] [address] [id number] 0 Phone: () - 01/18 CMP Chlor rakan mmol/L 96.0 114.0 108 FINAL Nicole muñoz [facility], [address] [id number] 0 Phone: () - 01/18 CMP CO2 mmol/L 20.0 31.0 22 The expected total allowable error for CO2 is 5.6%. We have seen up to 10% differenc e in values if reported at the end of the 96 hour stability window. Please consider the clinical significa nce of a 2.0-2.5 mmol/L lower reported CO2 value if reported at the end of the 96 hour stability window. FINAL Nicole muñoz [facility], [facility] [address] [facility] [address] [id number] 0 Phone: () - 01/18 CMP Creat inine mg/dL 0.5 1.2 0.80 FINAL Nicole muñoz [facility], [address] [facility] [facility] 100 [facility] [id number] 0 Phone: () - 01/18 CMP GFR estim ate ml/min /1.73m ^2 79.7 GFR is calculate d using the CKD-EPI equation. FINAL Nicole muñoz [facility], [address] [facility] [id number] 0 Phone: () - 01/18 CMP Gluco se mg/dL 73.0 126.0 156 High FINAL Nicole muñoz [facility], [address] [facility] [id number] 0 Phone: () - 01/18 CMP Potas sium mmol/L 3.5 5.1 4.7 FINAL Nicole muñoz [facility], [address] [facility] [facility] 100 [facility] [id number] 0 Phone: () - 01/18 CMP Sodiu m mmol/L 136.0 145.0 145 FINAL Nicole muñoz [facility] [address] [facility] [id number] 0 Phone: () - 01/18 CMP Bilir ubin, total mg/dL 0.3 1.2 0.5 FINAL Nicole muñoz [facility] [address] [place] [address] [id number] 0 Phone: () - 01/18 CMP Total prote in g/dL 5.7 8.2 5.6 Low FINAL Nicole muñoz [facility] [address] [id number] 0 Phone: () - 01/18 iSTAT creat inine panel Creat inine , iSTAT mg/dl 0.6 1.3 0.8 FINAL Nicole muñoz [facility] [place] , [address] [facility] [address] [facility] [id number] 0 Phone: () - 01/18 iSTAT creat inine panel GFR estim ate ml/min /1.73m ^2 79.7 GFR is calculate d using the CKD-EPI equation. FINAL Nicole muñoz [facility] [place] , [address] [facility] [address] [facility] [place] [id number] 0 Phone: () - 01/18 CBC w/ auto diff WBC K/uL 3.0 8.9 12.6 High FINAL Nicole Ya [place] [facility] [place], [address] [place] [id number] 0 Phone: () - 01/18 CBC w/ auto diff HGB g/dL 11.3 15.2 9.7 Low FINAL Nicole Carmonaot a [facility] [place], [address] [place] [id number] 0 Phone: () - 01/18 CBC w/ auto diff PLT K/uL 113.0 364.0 124 FINAL Nicole Carmonaot a [facility] [place], [address] [place] [id number] 0 Phone: () - 01/18 CBC w/ auto diff Augustus # (ANC) K/uL 1.6 6.6 10.7 High FINAL Nicole Carmonaot a [facility] [place], [address] [place] [id number] 0 Phone: () - 01/18 CBC w/ auto diff Augustus % % 43.0 74.0 84.3 High FINAL Nicole Terrazas a [facility] [place], [address] [place] [id number] 0 Phone: () - 01/18 CBC w/ auto diff IG % % 0.0 0.5 4.4 High FINAL Nicole Terrazas a [facility] [place], [address] [place] [id number] 0 Phone: () - 01/18 CBC w/ auto diff IG # K/uL 0.0 0.03 0.56 High FINAL Nicole Carmonaot a [facility] [place], [address] [place] [id number] 0 Phone: () - 01/18 CBC w/ auto diff LY % % 14.0 41.0 8.5 Low FINAL Nicole Carmonaot a [facility] [place], [address] [place] [id number] 0 Phone: () - 01/18 CBC w/ auto diff MO % % 6.0 15.0 2.6 Low FINAL Nicole Carmonaot a [facility] [place], [address] [place] [id number] 0 Phone: () - 01/18 CBC w/ auto diff EO % % 0.0 7.0 0.0 FINAL Nicole Terrazas a [facility] [place], [address] [place] [id number] 0 Phone: () - 01/18 CBC w/ auto diff BA % % 0.0 2.0 0.2 FINAL Nicole Carmonaot a [facility] [place], [address] [place] [id number] 0 Phone: () - 01/18 CBC w/ auto diff LY # K/uL 0.4 3.6 1.1 FINAL Nicole Carmonaot a [facility] [place], [address] [place] [id number] 0 Phone: () - 01/18 CBC w/ auto diff MO # K/uL 0.2 1.3 0.3 FINAL Nicole Terrazas a [facility] [place], [address] [place] [id number] 0 Phone: () - 01/18 CBC w/ auto diff EO # K/uL 0.0 0.6 0.0 FINAL Nicole Carmonaot a [facility] [place], [address] [place] [id number] 0 Phone: () - 01/18 CBC w/ auto diff BA # K/uL 0.0 0.2 0.0 FINAL Nicole Terrazas a [facility] [place], [address] [place] [id number] 0 Phone: () - 01/18 CBC w/ auto diff NRBC % #/100W BC 0.0 0.2 0.5 High FINAL Nicole Carmonaot a [facility] [place], [address] [place] [id number] 0 Phone: () - 01/18 CBC w/ auto diff RBC M/uL 3.9 5.1 2.85 Low FINAL Nicole Felton Mathewot a [facility] [place], [address] [place] [id number] 0 Phone: () - 01/18 CBC w/ auto diff HCT % 35.0 48.0 29.8 Low FINAL Nicole Ya Mathewot a [facility] [place], [address] [place] [id number] 0 Phone: () - 01/18 CBC w/ auto diff MCV fL 80.0 104.0 104.6 High FINAL Nicole Ya Mathewot a [facility] - [place], [address] [place] [id number] 0 Phone: () - 01/18 CBC w/ auto diff MCH pg 26.0 35.0 34.0 FINAL Nicole Ya Mathewdamaris toni [facility] - [place], [address] [place] [id number] 0 Phone: () - 01/18 CBC w/ auto diff MCHC g/dL 30.0 35.0 32.6 FINAL Nicole Ya Nini muñoz [facility] - [place], [address] [place] [id number] 0 Phone: () - 01/18 CBC w/ auto diff MPV fL 9.5 13.4 9.0 Low FINAL Nicole Ya Mathewot toni [facility] - [place], [address] [place] [id number] 0 Phone: () - 01/18 CBC w/ auto diff RDW % 11.4 16.1 19.00 High FINAL Nicole Ya Mathewot a [facility] - [place], [address] [place] [id number] 0 Phone: () - 01/29 CBC w/ auto diff WBC K/uL 3.0 8.9 19.0 High FINAL Nicole Ya [facility]w[place] a [facility] [place], [address] [place] [id number] 0 Phone: () - 01/29 CBC w/ auto diff HGB g/dL 11.3 15.2 8.8 Low FINAL Nicole Felton [facility] a [facility] [place], [address] [place] [id number] 0 Phone: () - 01/29 CBC w/ auto diff PLT K/uL 113.0 364.0 59 Low FINAL Nicoledarius Ya Mathewot a [facility] - [place], [address] [place] [id number] 0 Phone: () - 01/29 CBC w/ auto diff Augustus # (ANC) K/uL 1.6 6.6 16.7 High FINAL Nicole Ya Mathewdamaris a [facility] - [place], [address] [place] [id number] 0 Phone: () - 01/29 CBC w/ auto diff Augustus % % 43.0 74.0 88.0 High FINAL Nicole Ya Mathewdamaris a [facility] - [place], [address] [place] [id number] 0 Phone: () - 01/29 CBC w/ auto diff IG % % 0.0 0.5 1.9 High FINAL Nicole Ya Mathewdamaris a [facility] - [place], [address] [place] [id number] 0 Phone: () - 01/29 CBC w/ auto diff IG # K/uL 0.0 0.03 0.36 High FINAL Nicole Ya Mathew[place] a [facility] [place], [address] [place] [id number] 0 Phone: () - 01/29 CBC w/ auto diff LY % % 14.0 41.0 5.1 Low FINAL Nicole Ya Mathew[place] a [facility] [place], [address] [place] [id number] 0 Phone: () - 01/29 CBC w/ auto diff MO % % 6.0 15.0 4.8 Low FINAL Nicole Carmonaot a [facility] - [place], [address] [place] [id number] 0 Phone: () - 01/29 CBC w/ auto diff EO % % 0.0 7.0 0.0 FINAL Nicole Carmonaot a [facility] - [place], [address] [place] [id number] 0 Phone: () - 01/29 CBC w/ auto diff BA % % 0.0 2.0 0.2 FINAL Nicole Terrazas a [facility] - [place], [address] [place] [id number] 0 Phone: () - 01/29 CBC w/ auto diff LY # K/uL 0.4 3.6 1.0 FINAL Nicole Terrazas a [facility] - [place], [address] [place] [id number] 0 Phone: () - 01/29 CBC w/ auto diff MO # K/uL 0.2 1.3 0.9 FINAL Nicole muñoz [facility] - [place], [address] [place] [id number] 0 Phone: () - 01/29 CBC w/ auto diff EO # K/uL 0.0 0.6 0.0 FINAL Nicole Terrazas a [facility] - [place], [address] [place] [id number] 0 Phone: () - 01/29 CBC w/ auto diff BA # K/uL 0.0 0.2 0.0 FINAL Nicole Terrazas a [facility] - [place], [address] [place] [id number] 0 Phone: () - 01/29 CBC w/ auto diff NRBC % #/100W BC 0.0 0.2 0.0 FINAL Nicole Ya Mathewot a [facility] - [place], [address] [place] [id number] 0 Phone: () - 01/29 CBC w/ auto diff RBC M/uL 3.9 5.1 2.58 Low FINAL Nicole Carmonaot a [facility] - [place], [address] [place] [id number] 0 Phone: () - 01/29 CBC w/ auto diff HCT % 35.0 48.0 27.0 Low FINAL Nicole Terrazas a [facility] - [place], [address] [place] [id number] 0 Phone: () - 01/29 CBC w/ auto diff MCV fL 80.0 104.0 104.7 High FINAL Nicole Terrazas a [facility] - [place], [address] [address] [place] [id number] 0 Phone: () - 01/29 CBC w/ auto diff MCH pg 26.0 35.0 34.1 FINAL Nicole Ya Nini muñoz [facility] - [place], [address] [place] [id number] 0 Phone: () - 01/29 CBC w/ auto diff MCHC g/dL 30.0 35.0 32.6 FINAL Nicole Terrazas a [facility] - [place], [address] [place] [id number] 0 Phone: () - 01/29 CBC w/ auto diff MPV fL 9.5 13.4 9.3 Low FINAL Nicole muñoz [facility] - [place], [address] [place] [id number] 0 Phone: () - 01/29 CBC w/ auto diff RDW % 11.4 16.1 17.80 High FINAL Nicole Terrazas a [facility] - [place], [address] [place] [id number] 0 Phone: () - 01/29 iSTAT Na+/K +/Cl- panel Sodiu m, iSTAT mmol/L 138.0 146.0 134 Low Reference range adjusted 0 with implement ation of I-Stat 8+ cartridge . FINAL Nicole Felton Terrazas a [facility] - [place], [address] [place] [id number] 0 Phone: () - 01/29 iSTAT Na+/K +/Cl- panel Potas sium, iSTAT mmol/L 3.5 4.9 3.4 Low Reference range adjusted 0 with implement ation of I-Stat 8+ cartridge . FINAL Nicole muñoz [facility] - [place], [address] [place] [id number] 0 Phone: () - 01/29 iSTAT Na+/K +/Cl- panel Chlor rakan, iSTAT mmol/L 98.0 109.0 97 Low Reference range adjusted 0 with implement ation of I-Stat 8+ cartridge . FINAL Nicole muñoz [facility] - [place], [address] [place] [id number] 0 Phone: () - 02/05 CBC w/ auto diff BA # K/uL 0.0 0.2 0.0 FINAL Nicole muñoz [facility] - [place], [address] [place] [id number] 0 Phone: () - 02/05 CBC w/ auto diff NRBC % #/100W BC 0.0 0.2 0.1 FINAL Nicole muñoz [facility] - [place], [address] [place] [id number] 0 Phone: () - 02/05 CBC w/ auto diff RBC M/uL 3.9 5.1 2.96 Low FINAL Nicole muñoz [facility] - [place], [address] [place] [id number] 0 Phone: () - 02/05 CBC w/ auto diff HCT % 35.0 48.0 30.3 Low FINAL Nicole muñoz [facility] - [place], [address] [place] [id number] 0 Phone: () - 02/05 CBC w/ auto diff MCV fL 80.0 104.0 102.4 FINAL Nicole Carmonaot a [facility] - [place], [address] [place] [id number] 0 Phone: () - 02/05 CBC w/ auto diff MCH pg 26.0 35.0 33.8 FINAL Nicole Carmonaot a [facility] - [place], [address] [place] [id number] 0 Phone: () - 02/05 CBC w/ auto diff MCHC g/dL 30.0 35.0 33.0 FINAL Nicole Carmonaot a [facility] - [place], [address] [place] [id number] 0 Phone: () - 02/05 CBC w/ auto diff MPV fL 9.5 13.4 8.5 Low FINAL Nicole Carmonaot a [facility] - [place], [address] [place] [id number] 0 Phone: () - 02/05 CBC w/ auto diff RDW % 11.4 16.1 16.10 FINAL Nicole Terrazas a [facility] - [place], [address] [place] [id number] 0 Phone: () - 02/05 CBC w/ auto diff WBC K/uL 3.0 8.9 16.6 High FINAL Nicole Carmonaot a [facility] - [place], [address] [place] [id number] 0 Phone: () - 02/05 CBC w/ auto diff HGB g/dL 11.3 15.2 10.0 Low FINAL Nicole Carmonaot a [facility] - [place], [address] [place] [id number] 0 Phone: () - 02/05 CBC w/ auto diff PLT K/uL 113.0 364.0 122 FINAL Nicole Carmonaot a [facility] - [place], [address] [place] [id number] 0 Phone: () - 02/05 CBC w/ auto diff Augustus # (ANC) K/uL 1.6 6.6 12.9 High FINAL Nicole Carmonaot a [facility] - [place], [address] [place] [id number] 0 Phone: () - 02/05 CBC w/ auto diff Augustus % % 43.0 74.0 77.5 High FINAL Nicole Carmonaot a [facility] - [place], [address] [place] [id number] 0 Phone: () - 02/05 CBC w/ auto diff IG % % 0.0 0.5 1.1 High FINAL Nicole Carmonaot a [facility] - [place], [address] [place] [id number] 0 Phone: () - 02/05 CBC w/ auto diff IG # K/uL 0.0 0.03 0.19 High FINAL Nicole Carmonaot a [facility] - [place], [address] [place] [id number] 0 Phone: () - 02/05 CBC w/ auto diff LY % % 14.0 41.0 11.4 Low FINAL Nicole Terrazas a [facility] - [place], [address] [place] [id number] 0 Phone: () - 02/05 CBC w/ auto diff MO % % 6.0 15.0 9.9 FINAL Nicole Carmonaot a [facility] - [place], [address] [place] [id number] 0 Phone: () - 02/05 CBC w/ auto diff EO % % 0.0 7.0 0.0 FINAL Nicole Carmonaot a [facility] - [place], [address] [place] [id number] 0 Phone: () - 02/05 CBC w/ auto diff BA % % 0.0 2.0 0.1 FINAL Nicole Carmonaot a [facility] - [place], [address] [place] [id number] 0 Phone: () - 02/05 CBC w/ auto diff LY # K/uL 0.4 3.6 1.9 FINAL Nicole muñoz [facility] - [place], [address] [place] [id number] 0 Phone: () - 02/05 CBC w/ auto diff MO # K/uL 0.2 1.3 1.6 High FINAL Nicole muñoz [facility] - [place], [address] [place] [id number] 0 Phone: () - 02/05 CBC w/ auto diff EO # K/uL 0.0 0.6 0.0 FINAL Nicole muñoz [facility] - [place], [address] [place] [id number] 0 Phone: () - 02/05 iSTAT Na+/K +/Cl- panel Sodiu m, iSTAT mmol/L 138.0 146.0 134 Low Reference range adjusted 0 with implement ation of I-Stat 8+ cartridge . FINAL Nicole muñoz [facility] - [place], [address] [place] [id number] 0 Phone: () - 02/05 iSTAT Na+/K +/Cl- panel Potas sium, iSTAT mmol/L 3.5 4.9 3.1 Low Reference range adjusted 0 with implement ation of I-Stat 8+ cartridge . FINAL Nicole muñoz [facility] - [place], [address] [place] [id number] 0 Phone: () - 02/05 iSTAT Na+/K +/Cl- panel Chlor rakan, iSTAT mmol/L 98.0 109.0 95 Low Reference range adjusted 0 with implement ation of I-Stat 8+ cartridge . FINAL Nicole muñoz [facility] - [place], [address] [place] [id number] 0 Phone: () - 02/05 iSTAT creat inine panel Creat inine , iSTAT mg/dl 0.6 1.3 0.8 FINAL Tiara muñoz [facility] - [place], [address] [facility] [address] [facility] [place] [phone] 0 Phone: () - 02/05 iSTAT creat inine panel GFR estim ate ml/min /1.73m ^2 79.7 GFR is calculate d using the CKD-EPI equation. FINAL Tiara muñoz [facility] - [place], [address] [facility] [address] [facility] [place] [id number] 0 Phone: () - 02/05 Magne sium, mg/dL mg/dL 1.5 2.3 1.4 Low FINAL Tiara muñoz On[facility] - [place], [address] [place] [id number] 0 Phone: () - 02/07 Magne sium, mg/dL mg/dL 1.5 2.3 1.5 FINAL Tiara muñoz [facility] - [place], [address] [place] [id number] 0 Phone: () - 02/07 iSTAT Na+/K +/Cl- panel Sodiu m, iSTAT mmol/L 138.0 146.0 137 Low Reference range adjusted 0 with implement ation of I-Stat 8+ cartridge . FINAL Tiara muñoz [facility] - [place], [address] [facility] [address] [facility] [place] [phone] 0 Phone: () - 02/07 iSTAT Na+/K +/Cl- panel Potas sium, iSTAT mmol/L 3.5 4.9 3.2 Low Reference range adjusted 0 with implement ation of I-Stat 8+ cartridge . FINAL Tiara muñoz [facility] - [place], [address] [facility] [address] [facility] [place] [id number] 0 Phone: () - 02/07 iSTAT Na+/K +/Cl- panel Chlor rakan, iSTAT mmol/L 98.0 109.0 100 Reference range adjusted 0 with implement ation of I-Stat 8+ cartridge . FINAL Tiara Carmonaot a [facility] - [place], [address] [place] [id number] 0 Phone: () - 02/07 iSTAT creat inine panel Creat inine , iSTAT mg/dl 0.6 1.3 1.0 FINAL Tiara Carmonaot a [facility] - [place], [address] [place] [id number] 0 Phone: () - 02/07 iSTAT creat inine panel GFR estim ate ml/min /1.73m ^2 61.0 GFR is calculate d using the CKD-EPI equation. FINAL Tiara Terrazas a [facility] - [place], [address] [facility] [address] [place] [phone] 0 Phone: () - 02/08 Clost ridiu m diffi cile toxin PCR panel CLOST RIDIU M DIFFI CILE TOXIN B,QL REAL TIME PCR DETECTE D Abnor mal The stool sample is POSITIVE for toxigenic C. difficile .This result is suggestiv e of C. difficile infection (CDI) if accompani ed by appropria te clinical symptoms. Simultane ous testing does not identify a genetic markerof the hyperviru lent 027/NAP1/ BI strain of toxigenic C. difficile .This test is for use only with liquid or soft stools;pe rformance character istics of other clinical speciment ypes have not been establish ed.This assay was performed by [employer] (R) PCR.The performan ce character istics of this assay havebeen determine d by [employer] cs. Performan cecharact eristics refer to the analytica l performan ceof the test.For additiona l informati on, please refer tohttp:// education .ADARTIS/faq/F AQ136(Thi s link is being provided forinform ational/e ducationa l purposes only.)[CA ] FINAL Tiara NEGRETE, [facility] [address] [facility] [id number] 4 02/08 Clost ridiu m diffi cile toxin PCR panel CLOST RIDIU M DIFFI CILE TOXIN /GDH W/REF L TO PCR SEE NOTE CLOSTRIDI UM DIFFICILE TOXIN/GDH W/REFL TO PCRMicro Number: [id number] est Status: FinalSpec imen Source: StoolSpec imen Quality: AdequateG DH Antigen: DetectedT oxin A and B: Not DetectedC OMMENT: Indetermi vikram. Specimen forwarded [employer] cesar C. difficile PCR testing.F or additiona l informati on, please refer tohttp:// education .ADARTIS/faq/F AQ136(Thi s link is being provided forinform ational/e ducationa l purposes only.)[CB ] FINAL Tiara Coronado QUEST, [employer] [facility] [address] [facility] [id number] 4 02/08 iSTAT creat inine panel Creat inine , iSTAT mg/dl 0.6 1.3 0.8 FINAL Nicole muñoz [facility] - [place] , [address] [facility] [address] [place] [address] [phone] 0 Phone: () - 02/08 iSTAT creat inine panel GFR estim ate ml/min /1.73m ^2 79.7 GFR is calculate d using the CKD-EPI equation. FINAL Nicole muñoz [facility] - [place], [address] [facility] [address] [facility] [id number] 0 Phone: () - 02/08 CMP Album in g/dL 3.2 5.2 3.2 FINAL Nicole muñoz Oncology [facility], [address] [facility] [address] [place] [id number] 0 Phone: () - 02/08 CMP Alkal ine phosp hatas e U/L 46.0 116.0 85 FINAL Nicole muñoz Oncology [facility], [address] [facility] [address] [place] [address] [phone] 0 Phone: () - 02/08 CMP ALT/S GPT U/L 7.0 40.0 24 FINAL Nicole muñoz [facility], [facility] [address] [facility] 100 [facility] [id number] 0 Phone: () - 02/08 CMP AST/S GOT U/L 13.0 40.0 16 FINAL Nicole Terrazas [place] [address] [address] [facility] 100 [facility] [id number] 0 Phone: () - 02/08 CMP BUN mg/dL 9.0 23.0 8.0 Low FINAL Nicole [place] [address] [address] [facility] [address] [id number] 0 Phone: () - 02/08 CMP Calci um mg/dL 8.7 10.4 8.3 Low FINAL Nicole Terrazas [place] [address] [address] [facility] [address] [id number] 0 Phone: () - 02/08 CMP Chlor rakan mmol/L 96.0 114.0 111 FINAL Nicole Terrazas [place] [address] [address] [facility] [address] [phone] 0 Phone: () - 02/08 CMP CO2 mmol/L 20.0 31.0 21 The expected total allowable error for CO2 is 5.6%. We have seen up to 10% differenc e in values if reported at the end of the 96 hour stability window. Please consider the clinical significa nce of a 2.0-2.5 mmol/L lower reported CO2 value if reported at the end of the 96 hour stability window. FINAL Nicole muñoz [place] [address] [address] [facility] [address] [place] [address] [phone] 0 Phone: () - 02/08 CMP Creat inine mg/dL 0.5 1.2 0.86 FINAL Nicole muñoz [place] [address] [address] [facility] [address] [phone] 0 Phone: () - 02/08 CMP GFR estim ate ml/min /1.73m ^2 73.0 GFR is calculate d using the CKD-EPI equation. FINAL Nicole Terrazas [facility], [address] [facility] [address] [facility] [id number] 0 Phone: () - 02/08 CMP Gluco se mg/dL 73.0 126.0 129 High FINAL Nicole muñoz [facility], [address] [facility] [address] [facility] [id number] 0 Phone: () - 02/08 CMP Potas sium mmol/L 3.5 5.1 3.6 FINAL Nicole muñoz [facility], [address] [facility] [address] [facility] [id number] 0 Phone: () - 02/08 CMP Sodiu m mmol/L 136.0 145.0 144 FINAL Nicole muñoz [facility], [address] [facility] [address] [facility] [id number] 0 Phone: () - 02/08 CMP Bilir ubin, total mg/dL 0.3 1.2 0.3 FINAL Nicole muñoz [facility], [address] [id number] 0 Phone: () - 02/08 CMP Total prote in g/dL 5.7 8.2 4.8 Low FINAL Nicole muñoz [facility], [address] [facility] [address] [id number] 0 Phone: () - 02/08 CBC w/ auto diff WBC K/uL 3.0 8.9 17.2 High FINAL Nicole muñoz [facility] - [place], [address] [facility] [address] [place] [id number] 0 Phone: () - 02/08 CBC w/ auto diff HGB g/dL 11.3 15.2 7.9 Critica l hematol ogy result obtaine d Criti todd Low FINAL Nicole muñoz [facility] - [place], [address] [place] [id number] 0 Phone: () - 02/08 CBC w/ auto diff PLT K/uL 113.0 364.0 123 FINAL Nicole muñoz [facility] - [place], [address] [facility] [address] [place] [id number] 0 Phone: () - 02/08 CBC w/ auto diff Augustus # (ANC) K/uL 1.6 6.6 13.8 High FINAL Nicole Ya Mathewot a [facility] - [place], [address] [place] [id number] 0 Phone: () - 02/08 CBC w/ auto diff Augustus % % 43.0 74.0 80.0 High FINAL Nicole Felton Mathewot a [facility] - [place], [address] [place] [id number] 0 Phone: () - 02/08 CBC w/ auto diff IG % % 0.0 0.5 2.2 High FINAL Nicole Felton Mathewot a [facility] - [place], [address] [place] [id number] 0 Phone: () - 02/08 CBC w/ auto diff IG # K/uL 0.0 0.03 0.38 High FINAL Nicole Felton Mathewdamaris toni [facility] - [place], [address] [place] [id number] 0 Phone: () - 02/08 CBC w/ auto diff LY % % 14.0 41.0 9.3 Low FINAL Nicole Felton Mathewot a [facility] - [place], [address] [place] [id number] 0 Phone: () - 02/08 CBC w/ auto diff MO % % 6.0 15.0 8.4 FINAL Nicole Ya Mathewot a [facility] - [place], [address] [place] [id number] 0 Phone: () - 02/08 CBC w/ auto diff EO % % 0.0 7.0 0.0 FINAL Nicole Felton Mathewot a [facility] - [place], [address] [place] [id number] 0 Phone: () - 02/08 CBC w/ auto diff BA % % 0.0 2.0 0.1 FINAL Nicole Ya Mathewot a [facility] - [place], [address] [place] [id number] 0 Phone: () - 02/08 CBC w/ auto diff LY # K/uL 0.4 3.6 1.6 FINAL Nicole Carmonaot a [facility] - [place], [address] [place] [id number] 0 Phone: () - 02/08 CBC w/ auto diff MO # K/uL 0.2 1.3 1.5 High FINAL Nicole Carmonaot a [facility] - [place], [address] [place] [id number] 0 Phone: () - 02/08 CBC w/ auto diff EO # K/uL 0.0 0.6 0.0 FINAL Nicole Carmonaot a [facility] - [place], [address] [place] [id number] 0 Phone: () - 02/08 CBC w/ auto diff BA # K/uL 0.0 0.2 0.0 FINAL Nicole Carmonaot a [facility] - [place], [address] [place] [id number] 0 Phone: () - 02/08 CBC w/ auto diff NRBC % #/100W BC 0.0 0.2 0.3 High FINAL Nicole Carmonaot a [facility] - [place], [address] [place] [id number] 0 Phone: () - 02/08 CBC w/ auto diff RBC M/uL 3.9 5.1 2.33 Low FINAL Nicole Carmnoaot a On[facility] - [place], [address] [place] [id number] 0 Phone: () - 02/08 CBC w/ auto diff HCT % 35.0 48.0 24.6 Low FINAL Nicole Carmonaot a [facility] - [place], [address] [place] [id number] 0 Phone: () - 02/08 CBC w/ auto diff MCV fL 80.0 104.0 105.6 High FINAL Nicole Carmonaot a [facility] - [place], [address] [place] [id number] 0 Phone: () - 02/08 CBC w/ auto diff MCH pg 26.0 35.0 33.9 FINAL Nicole Carmonaot a [facility] - [place], [address] [place] [id number] 0 Phone: () - 02/08 CBC w/ auto diff MCHC g/dL 30.0 35.0 32.1 FINAL Nicole Carmonaot a [facility] - [place], [address] [place] [id number] 0 Phone: () - 02/08 CBC w/ auto diff MPV fL 9.5 13.4 9.1 Low FINAL Nicole Carmonaot a [facility] - [place], [address] [place] [id number] 0 Phone: () - 02/08 CBC w/ auto diff RDW % 11.4 16.1 16.70 High FINAL Nicole Carmonaot a [facility] - [place], [address] [place] [id number] 0 Phone: () - 02/12 CBC w/ auto diff WBC K/uL 3.0 8.9 9.0 High FINAL Nicole Carmonaot a [facility] - [place], [address] [place] [id number] 0 Phone: () - 02/12 CBC w/ auto diff HGB g/dL 11.3 15.2 8.7 Low FINAL Nicole Carmonaot a [facility] - [place], [address] [place] [id number] 0 Phone: () - 02/12 CBC w/ auto diff PLT K/uL 113.0 364.0 154 FINAL Nicole Carmonaot a [facility] - [place], [address] [place] [id number] 0 Phone: () - 02/12 CBC w/ auto diff Augustus # (ANC) K/uL 1.6 6.6 6.5 FINAL Nicole Terrazas a [facility] - [place], [address] [place] [id number] 0 Phone: () - 02/12 CBC w/ auto diff Augustus % % 43.0 74.0 72.4 FINAL Nicole Terrazas a [facility] - [place], [address] [place] [id number] 0 Phone: () - 02/12 CBC w/ auto diff IG % % 0.0 0.5 0.9 High FINAL Nicole Terrazas a [facility] - [place], [address] [place] [id number] 0 Phone: () - 02/12 CBC w/ auto diff IG # K/uL 0.0 0.03 0.08 High FINAL Nicole muñoz [facility] - [place], [address] [place] [id number] 0 Phone: () - 02/12 CBC w/ auto diff LY % % 14.0 41.0 17.0 FINAL Nicole muñoz [facility] - [place], [address] [place] [id number] 0 Phone: () - 02/12 CBC w/ auto diff MO % % 6.0 15.0 9.4 FINAL Nicole muñoz [facility] - [place], [address] [place] [id number] 0 Phone: () - 02/12 CBC w/ auto diff EO % % 0.0 7.0 0.3 FINAL Nicole Carmonaot a [facility] - [place], [address] [place] [id number] 0 Phone: () - 02/12 CBC w/ auto diff BA % % 0.0 2.0 0.0 FINAL Nicole Ya Mathewot a [facility] - [place], [address] [place] [id number] 0 Phone: () - 02/12 CBC w/ auto diff LY # K/uL 0.4 3.6 1.5 FINAL Nicole Ya Nini a [facility] - [place], [address] [place] [id number] 0 Phone: () - 02/12 CBC w/ auto diff MO # K/uL 0.2 1.3 0.8 FINAL Nicole Ya Nini a [facility] - [place], [address] [place] [id number] 0 Phone: () - 02/12 CBC w/ auto diff EO # K/uL 0.0 0.6 0.0 FINAL Nicole Felton Nini muñoz On[facility] - [place], [address] [place] [id number] 0 Phone: () - 02/12 CBC w/ auto diff BA # K/uL 0.0 0.2 0.0 FINAL Nicole Felton Nini muñoz On[facility] - [place], [address] [place] [id number] 0 Phone: () - 02/12 CBC w/ auto diff NRBC % #/100W BC 0.0 0.2 0.0 FINAL Nicole Felton Nini a [facility] - [place], [address] [place] [id number] 0 Phone: () - 02/12 CBC w/ auto diff RBC M/uL 3.9 5.1 2.54 Low FINAL Nicole Ya Mathewot a [facility] - [place], [address] [place] [id number] 0 Phone: () - 02/12 CBC w/ auto diff HCT % 35.0 48.0 27.5 Low FINAL Nicole Ya Mathewot a [facility] - [place], [address] [place] [id number] 0 Phone: () - 02/12 CBC w/ auto diff MCV fL 80.0 104.0 108.3 High FINAL Nicole Felton Mathewot a [facility] - [place], [address] [place] [id number] 0 Phone: () - 02/12 CBC w/ auto diff MCH pg 26.0 35.0 34.3 FINAL Nicole muñoz [facility] - [place], [address] [place] [id number] 0 Phone: () - 02/12 CBC w/ auto diff MCHC g/dL 30.0 35.0 31.6 FINAL Nicole muñoz [facility] - [place], [address] [place] [id number] 0 Phone: () - 02/12 CBC w/ auto diff MPV fL 9.5 13.4 8.3 Low FINAL Nicole muñoz [facility] - [place], [address] [place] [id number] 0 Phone: () - 02/12 CBC w/ auto diff RDW % 11.4 16.1 17.40 High FINAL Nicole muñoz [facility] - [place], [address] [place] [id number] 0 Phone: () - 02/12 iSTAT Na+/K +/Cl- panel Sodiu m, iSTAT mmol/L 138.0 146.0 139 Reference range adjusted 0 with implement ation of I-Stat 8+ cartridge . FINAL Nicole muñoz [facility] - [place], [address] [place] [id number] 0 Phone: () - 02/12 iSTAT Na+/K +/Cl- panel Potas sium, iSTAT mmol/L 3.5 4.9 3.8 Reference range adjusted 0 with implement ation of I-Stat 8+ cartridge . FINAL Nicole muñoz [facility] - [place], [address] [place] [id number] 0 Phone: () - 02/12 iSTAT Na+/K +/Cl- panel Chlor rakan, iSTAT mmol/L 98.0 109.0 100 Reference range adjusted 0 with implement ation of I-Stat 8+ cartridge . FINAL Nicole muñoz [facility] - [place], [address] [facility] [address] [place] [id number] 0 Phone: () - 02/12 Magne sium, mg/dL mg/dL 1.5 2.3 1.5 FINAL Nicole Ya Mathewdamaris toni Oncology - [place], [address] [place] [id number] 0 Phone: () - 03/01 CBC w/ auto diff WBC K/uL 3.0 8.9 4.5 FINAL Nicole Ya Mathewdamaris muñoz Oncology - [place], [address] [facility] [address] [place] [id number] 0 Phone: () - 03/01 CBC w/ auto diff HGB g/dL 11.3 15.2 8.8 Low FINAL Nicole Ya Mathewdamaris toni Oncology - [place], [address] [facility] [address] [place] [id number] 0 Phone: () - 03/01 CBC w/ auto diff PLT K/uL 113.0 364.0 154 FINAL Nicole Carmonadamaris muñoz Oncology - [place], [address] [facility] [address] [place] [id number] 0 Phone: () - 03/01 CBC w/ auto diff Augustus # (ANC) K/uL 1.6 6.6 2.2 FINAL Nicole Ya Mathewdamaris toni Oncology - [place], [address] [place] [id number] 0 Phone: () - 03/01 CBC w/ auto diff Augustus % % 43.0 74.0 49.9 FINAL Nicole Carmonadamaris toni Oncology - [place], [address] [facility] [address] [place] [id number] 0 Phone: () - 03/01 CBC w/ auto diff IG % % 0.0 0.5 0.7 High FINAL Nicole Ya Mathewdamaris muñoz Oncology - [place], [address] [place] [id number] 0 Phone: () - 03/01 CBC w/ auto diff IG # K/uL 0.0 0.03 0.03 FINAL Nicole Ya Mathewot a On[facility] - [place], [address] [place] [id number] 0 Phone: () - 03/01 CBC w/ auto diff LY % % 14.0 41.0 32.0 FINAL Nicole Felton Mathewot a On[facility] - [place], [address] [place] [id number] 0 Phone: () - 03/01 CBC w/ auto diff MO % % 6.0 15.0 14.5 FINAL Nicole Ya [facility] [place], [address] [place] [id number] 0 Phone: () - 03/01 CBC w/ auto diff EO % % 0.0 7.0 2.5 FINAL Nicole Felton [facility] [place], [address] [place] [id number] 0 Phone: () - 03/01 CBC w/ auto diff BA % % 0.0 2.0 0.4 FINAL Nicole Felton [facility] [place], [address] [place] [id number] 0 Phone: () - 03/01 CBC w/ auto diff LY # K/uL 0.4 3.6 1.4 FINAL Nicole Ya [facility] [place], [address] [place] [id number] 0 Phone: () - 03/01 CBC w/ auto diff MO # K/uL 0.2 1.3 0.7 FINAL Nicole Felton [facility] [place], [address] [place] [id number] 0 Phone: () - 03/01 CBC w/ auto diff EO # K/uL 0.0 0.6 0.1 FINAL Nicole Felton Carmona[facility] - [place], [address] [place] [id number] 0 Phone: () - 03/01 CBC w/ auto diff BA # K/uL 0.0 0.2 0.0 FINAL Nicole Terrazas [facility] [place], [address] [place] [id number] 0 Phone: () - 03/01 CBC w/ auto diff NRBC % #/100W BC 0.0 0.2 0.0 FINAL Nicole Terraz[facility] [place], [address] [place] [id number] 0 Phone: () - 03/01 CBC w/ auto diff RBC M/uL 3.9 5.1 2.57 Low FINAL Nicole [facility] [place], [address] [place] [id number] 0 Phone: () - 03/01 CBC w/ auto diff HCT % 35.0 48.0 28.5 Low FINAL Nicole muñoz [facility] [place], [address] [place] [id number] 0 Phone: () - 03/01 CBC w/ auto diff MCV fL 80.0 104.0 110.9 High FINAL Nicole muñoz [facility] - [place], [address] [place] [id number] 0 Phone: () - 03/01 CBC w/ auto diff MCH pg 26.0 35.0 34.2 FINAL Nicole muñoz [facility] - [place], [address] [place] [id number] 0 Phone: () - 03/01 CBC w/ auto diff MCHC g/dL 30.0 35.0 30.9 FINAL Nicole [facility] - [place], [address] [place] [id number] 0 Phone: () - 03/01 CBC w/ auto diff MPV fL 9.5 13.4 8.2 Low FINAL Nicole muñoz [facility] - [place], [address] [place] [id number] 0 Phone: () - 03/01 CBC w/ auto diff RDW % 11.4 16.1 15.70 FINAL Nicole muñoz [facility] [place], [address] [facility] [address] [place] [id number] 0 Phone: () - 03/01 CMP Album in g/dL 3.2 5.2 3.4 FINAL Nicole muñoz [facility], [address] [place] [address] [id number] 0 Phone: () - 03/01 CMP Alkal ine phosp hatas e U/L 46.0 116.0 89 FINAL Nicloe muñoz [facility], [address] [place] [address] [id number] 0 Phone: () - 03/01 CMP ALT/S GPT U/L 7.0 40.0 15 FINAL Nicole muñoz [facility], [address] [place] [address] [id number] 0 Phone: () - 03/01 CMP AST/S GOT U/L 13.0 40.0 18 FINAL Nicole muñoz [facility], [address] [place] [address] [id number] 0 Phone: () - 03/01 CMP BUN mg/dL 9.0 23.0 9.0 FINAL Nicole muñoz [facility], [address] [place] [address] [id number] 0 Phone: () - 03/01 CMP Calci um mg/dL 8.7 10.4 8.5 Low FINAL Nicole muñoz [facility], [facility] [address] [place] [address] [id number] 0 Phone: () - 03/01 CMP Chlor rakan mmol/L 96.0 114.0 113 FINAL Nicole muñoz [facility], [facility] [address] [place] [address] [id number] 0 Phone: () - 03/01 CMP CO2 mmol/L 20.0 31.0 21 The expected total allowable error for CO2 is 5.6%. We have seen up to 10% differenc e in values if reported at the end of the 96 hour stability window. Please consider the clinical significa nce of a 2.0-2.5 mmol/L lower reported CO2 value if reported at the end of the 96 hour stability window. FINAL Nicole Terrazas [facility], [address] [id number] 0 Phone: () - 03/01 CMP Creat inine mg/dL 0.5 1.2 0.98 FINAL [place] [address] [id number] 0 Phone: () - 03/01 CMP GFR estim ate ml/min /1.73m ^2 62.4 GFR is calculate d using the CKD-EPI equation. FINAL Nicole Terrazas [place] [address] [id number] 0 Phone: () - 03/01 CMP Gluco se mg/dL 73.0 126.0 136 High [facility]AL [facility] [address] [id number] 0 Phone: () - 03/01 CMP Potas sium mmol/L 3.5 5.1 4.3 FINAL [facility] [address] [id number] 0 Phone: () - 03/01 CMP Sodiu m mmol/L 136.0 145.0 147 High FINAL [facility] [address] [facility] [address] [id number] 0 Phone: () - 03/01 CMP Bilir ubin, total mg/dL 0.3 1.2 0.5 FINAL [facility], [address] [facility] [address] [id number] 0 Phone: () - 03/01 CMP Total prote in g/dL 5.7 8.2 5.2 Low FINAL Nicole Carmonaot a [facility] - [place], [address] [place] [id number] 0 Phone: () - 04/12 CBC w/ auto diff WBC K/uL 3.0 8.9 5.3 FINAL Nicole Ya Mathewdamaris muñoz [facility] - [place], [address] [place] [id number] 0 Phone: () - 04/12 CBC w/ auto diff HGB g/dL 11.3 15.2 9.4 Low FINAL Nicole Ya [facility] [place], [address] [place] [id number] 0 Phone: () - 04/12 CBC w/ auto diff PLT K/uL 113.0 364.0 167 FINAL Nicole muñoz [facility] - [place], [address] [place] [id number] 0 Phone: () - 04/12 CBC w/ auto diff Augustus # (ANC) K/uL 1.6 6.6 3.0 FINAL Nicole muñoz [facility] - [place], [address] [place] [id number] 0 Phone: () - 04/12 CBC w/ auto diff Augustus % % 43.0 74.0 57.5 FINAL Nicole muñoz [facility] - [place], [address] [place] [id number] 0 Phone: () - 04/12 CBC w/ auto diff IG % % 0.0 0.5 0.4 FINAL Nicole muñoz [facility] - [place], [address] [place] [id number] 0 Phone: () - 04/12 CBC w/ auto diff IG # K/uL 0.0 0.03 0.02 FINAL Nicole Terrazas [facility] [place], [address] [place] [id number] 0 Phone: () - 04/12 CBC w/ auto diff LY % % 14.0 41.0 28.6 FINAL Nicole Ya [place] [facility] [place], [address] [place] [id number] 0 Phone: () - 04/12 CBC w/ auto diff MO % % 6.0 15.0 11.6 FINAL Nicole Terrazas [facility] [place], [address] [place] [id number] 0 Phone: () - 04/12 CBC w/ auto diff EO % % 0.0 7.0 1.5 FINAL Nicole Terrazas [facility] [place], [address] [place] [id number] 0 Phone: () - 04/12 CBC w/ auto diff BA % % 0.0 2.0 0.4 FINAL Nicole Terrazas [facility] [place], [address] [place] [id number] 0 Phone: () - 04/12 CBC w/ auto diff LY # K/uL 0.4 3.6 1.5 FINAL Nicole Terrazas [facility] [place], [address] [place] [id number] 0 Phone: () - 04/12 CBC w/ auto diff MO # K/uL 0.2 1.3 0.6 FINAL Nicole Terrazas [facility] [place], [address] [place] [id number] 0 Phone: () - 04/12 CBC w/ auto diff EO # K/uL 0.0 0.6 0.1 FINAL Nicole Terrazas [facility] [place], [address] [place] [id number] 0 Phone: () - 04/12 CBC w/ auto diff BA # K/uL 0.0 0.2 0.0 FINAL Nicole Terrazas [facility] [place], [address] [place] [id number] 0 Phone: () - 04/12 CBC w/ auto diff NRBC % #/100W BC 0.0 0.2 0.0 FINAL Nicole [facility] [place], [address] [place] [id number] 0 Phone: () - 04/12 CBC w/ auto diff RBC M/uL 3.9 5.1 2.94 Low FINAL Nicole Terrazas [facility] [place], [address] [place] [id number] 0 Phone: () - 04/12 CBC w/ auto diff HCT % 35.0 48.0 29.6 Low FINAL Nicole Terrazas [facility] [place], [address] [place] [id number] 0 Phone: () - 04/12 CBC w/ auto diff MCV fL 80.0 104.0 100.7 FINAL Nicole muñoz [facility] - [place], [address] [place] [id number] 0 Phone: () - 04/12 CBC w/ auto diff MCH pg 26.0 35.0 32.0 FINAL Nicole Terrazas [facility] [place], [address] [place] [id number] 0 Phone: () - 04/12 CBC w/ auto diff MCHC g/dL 30.0 35.0 31.8 FINAL Nicole Terrazas [facility] [place], [address] [place] [id number] 0 Phone: () - 04/12 CBC w/ auto diff MPV fL 9.5 13.4 9.5 FINAL Nicole [facility] [place], [address] [place] [id number] 0 Phone: () - 04/12 CBC w/ auto diff RDW % 11.4 16.1 12.30 FINAL Nicole [facility] [place], [address] [place] [id number] 0 Phone: () - 04/12 CMP Album in g/dL 3.2 5.2 3.8 FINAL [facility], [address] [facility] [address] [id number] 0 Phone: () - 04/12 CMP Alkal ine phosp hatas e U/L 46.0 116.0 90 FINAL [facility] [address] [facility] [address] [id number] 0 Phone: () - 04/12 CMP ALT/S GPT U/L 7.0 40.0 17 FINAL [facility] [address] [id number] 0 Phone: () - 04/12 CMP AST/S GOT U/L 13.0 40.0 18 FINAL [facility] [address] [facility] [address] [id number] 0 Phone: () - 04/12 CMP BUN mg/dL 9.0 23.0 14.0 FINAL [facility] [address] [facility] [address] [id number] 0 Phone: () - 04/12 CMP Calci um mg/dL 8.7 10.4 9.1 FINAL [place] [address] [address] [facility] [address] [id number] 0 Phone: () - 04/12 CMP Chlor rakan mmol/L 96.0 114.0 110 FINAL [place] [address] [address] [facility] [address] [id number] 0 Phone: () - 04/12 CMP CO2 mmol/L 20.0 31.0 24 The expected total allowable error for CO2 is 5.6%. We have seen up to 10% differenc e in values if reported at the end of the 96 hour stability window. Please consider the clinical significa nce of a 2.0-2.5 mmol/L lower reported CO2 value if reported at the end of the 96 hour stability window. FINAL [facility], [facility] N [facility] [address] [phone] 0 Phone: () - 04/12 CMP Creat inine mg/dL 0.5 1.2 0.86 FINAL Nicole Terrazas [facility], [facility] N [facility] [address] [place] [address] [id number] 0 Phone: () - 04/12 CMP GFR estim ate ml/min /1.73m ^2 73.0 GFR is calculate d using the CKD-EPI equation. FINAL Nicole muñoz [place] [address] [address] [facility] [address] [id number] 0 Phone: () - 04/12 CMP Gluco se mg/dL 73.0 126.0 85 FINAL Nicole Terrazas [place] [address] [id number] 0 Phone: () - 04/12 CMP Potas sium mmol/L 3.5 5.1 3.8 FINAL Nicole Terrazas [place] [address] [id number] 0 Phone: () - 04/12 CMP Sodiu m mmol/L 136.0 145.0 146 High FINAL Nicole Terrazas [place] [address] [address] [facility] [address] [id number] 0 Phone: () - 04/12 CMP Bilir ubin, total mg/dL 0.3 1.2 0.3 FINAL Nicole Terrazas [place] [address] [address] [facility] [address] [id number] 0 Phone: () - 04/12 CMP Total prote in g/dL 5.7 8.2 5.6 Low FINAL Nicole Terrazas [facility], [facility] N [facility] [address] [id number] 0 Phone: () - 04/12 PRIOR RESUL T Not Given FINAL Nicole NEGRETE [facility] [address] [place] [id number] 4 04/12 SOUR E: Periphe ral Blood FINAL Nicole NEGRETE, [facility] [address] [place] [id number] 4 04/12 BCR ABL1/ ABL1 % % 0.000 FINAL Nicole Ya Toovari, [facility] [address] [place] [id number] 4 04/12 BCR ABL1/ ABL1 % (IS) % 0.000 FINAL Nicole NEGRETE, [facility] [address] [place] [id number] 4 04/12 INTER PRETA TION see note The P190 [...] l informati on, please refer tohttp:// [email or web address](This link is being provided forinform ational/e ducationa l purposes only.)Ass ay sensitivi ty is at least 4.5-logs below baselineB CR-ABL1 transcrip t levels but is dependent onquantit y and quality of RNA used for testing and thecellul arity of the sample.Th is test was developed and its analytica lperforma nce character istics have been determine dby [facility] [place], [place].It has not been cleared or approved by the FDA. Thisassay has been validated pursuant to the CLIAregul ations and is used for clinical purposes. Alejandro Ya, Ph.D, HCLD (ABB)Scie ntific Director, Molecular Oncology FINAL Nicole NEGRETE, [facility] [address] [place] [id number] 4 04/12 P190 BCR ABL1 Not Detecte d FINAL Nicole Unidym, [facility] [address] [place] [id number] 4 04/12 P210 BCR ABL1 Not Detecte d FINAL Nicole Ya QUEST, [facility] [address] [place] [id number] 4 06/04 iSTAT K+ panel Potas sium, iSTAT mmol/L 3.5 4.9 3.8 Reference range adjusted 0 with implement ation of I-Stat 8+ cartridge . FINAL Nicole Ya [facility] [place], [address] [place] [id number] 0 Phone: () - 06/04 CBC w/ auto diff WBC K/uL 3.0 8.9 6.2 FINAL Nicole Ya [facility] [place], [address] [place] [id number] 0 Phone: () - 06/04 CBC w/ auto diff HGB g/dL 11.3 15.2 12.8 FINAL Nicole Ya [facility] [place], [address] [place] [id number] 0 Phone: () - 06/04 CBC w/ auto diff PLT K/uL 113.0 364.0 177 FINAL Nicole Ya [facility] [place], [address] [place] [id number] 0 Phone: () - 06/04 CBC w/ auto diff Augustus # (ANC) K/uL 1.6 6.6 4.0 FINAL Nicole [facility] - [place], [address] [place] [id number] 0 Phone: () - 06/04 CBC w/ auto diff Augustus % % 43.0 74.0 63.9 FINAL Nicole Ya [facility] [place], [address] [place] [id number] 0 Phone: () - 06/04 CBC w/ auto diff IG % % 0.0 0.5 0.2 FINAL Nicole [facility] [place], [address] [place] [id number] 0 Phone: () - 06/04 CBC w/ auto diff IG # K/uL 0.0 0.03 0.01 FINAL Nicole [facility] - [place], [address] [place] [id number] 0 Phone: () - 06/04 CBC w/ auto diff LY % % 14.0 41.0 27.5 FINAL Nicole [facility] [place], [address] [place] [id number] 0 Phone: () - 06/04 CBC w/ auto diff MO % % 6.0 15.0 7.9 FINAL Nicole [facility] [place], [address] [place] [id number] 0 Phone: () - 06/04 CBC w/ auto diff EO % % 0.0 7.0 0.2 FINAL Nicole [facility] [place], [address] [place] [id number] 0 Phone: () - 06/04 CBC w/ auto diff BA % % 0.0 2.0 0.3 FINAL Nicole [facility] [place], [address] [place] [id number] 0 Phone: () - 06/04 CBC w/ auto diff LY # K/uL 0.4 3.6 1.7 FINAL Nicole [facility] - [place], [address] [place] [id number] 0 Phone: () - 06/04 CBC w/ auto diff MO # K/uL 0.2 1.3 0.5 FINAL Nicole [facility] - [place], [address] [place] [id number] 0 Phone: () - 06/04 CBC w/ auto diff EO # K/uL 0.0 0.6 0.0 FINAL Nicole muñoz [facility] - [place], [address] [place] [id number] 0 Phone: () - 06/04 CBC w/ auto diff BA # K/uL 0.0 0.2 0.0 FINAL Nicole muñoz [facility] - [place], [address] [place] [id number] 0 Phone: () - 06/04 CBC w/ auto diff NRBC % #/100W BC 0.0 0.2 0.0 FINAL Nicole muñoz [facility] - [place], [address] [place] [id number] 0 Phone: () - 06/04 CBC w/ auto diff MCH pg 26.0 35.0 30.0 FINAL Nicole Ya Nini muñoz [facility] - [place], [address] [place] [id number] 0 Phone: () - 06/04 CBC w/ auto diff RBC M/uL 3.9 5.1 4.27 FINAL Nicole Ya Nini muñoz [facility] - [place], [address] [place] [id number] 0 Phone: () - 06/04 CBC w/ auto diff HCT % 35.0 48.0 39.5 FINAL Nicole Ya Nini muñoz [facility] - [place], [address] [place] [id number] 0 Phone: () - 06/04 CBC w/ auto diff MCV fL 80.0 104.0 92.5 FINAL Nicole muñoz [facility] - [place], [address] [place] [id number] 0 Phone: () - 06/04 CBC w/ auto diff MCHC g/dL 30.0 35.0 32.4 FINAL Nicole Ya Mathewdamaris toni [facility] - [place], [address] [place] [id number] 0 Phone: () - 06/04 CBC w/ auto diff MPV fL 9.5 13.4 9.3 Low FINAL Nicole Ya [facility] [place], [address] [place] [id number] 0 Phone: () - 06/04 CBC w/ auto diff RDW % 11.4 16.1 12.70 FINAL Nicole Ya [facility] - [place], [address] [place] [id number] 0 Phone: () - 07/05 CBC w/ auto diff WBC K/uL 3.0 8.9 3.3 FINAL Nicole Ya [facility] - [place], [address] [place] [id number] 0 Phone: () - 07/05 CBC w/ auto diff HGB g/dL 11.3 15.2 11.9 FINAL Nicole Ya Mathwedamaris muñoz [facility] - [place], [address] [place] [id number] 0 Phone: () - 07/05 CBC w/ auto diff PLT K/uL 113.0 364.0 163 FINAL Nicole Ya [facility] - [place], [address] [place] [id number] 0 Phone: () - 07/05 CBC w/ auto diff Augustus # (ANC) K/uL 1.6 6.6 2.0 FINAL Nicole Ya Mathewdamaris muñoz [facility] - [place], [address] [place] [id number] 0 Phone: () - 07/05 CBC w/ auto diff Augustus % % 43.0 74.0 58.6 FINAL Nicole Ya [facility] - [place], [address] [place] [id number] 0 Phone: () - 07/05 CBC w/ auto diff IG % % 0.0 0.5 0.3 FINAL Nicole Ya [facility] [place], [address] [place] [id number] 0 Phone: () - 07/05 CBC w/ auto diff IG # K/uL 0.0 0.03 0.01 FINAL Nicole Terrazas [facility] [place], [address] [place] [id number] 0 Phone: () - 07/05 CBC w/ auto diff LY % % 14.0 41.0 24.3 FINAL Nicole Terrazas [facility] - [place], [address] [place] [id number] 0 Phone: () - 07/05 CBC w/ auto diff MO % % 6.0 15.0 16.2 High FINAL Nicole Terrazas [facility] - [place], [address] [place] [id number] 0 Phone: () - 07/05 CBC w/ auto diff EO % % 0.0 7.0 0.3 FINAL Nicole muñoz [facility] - [place], [address] [place] [id number] 0 Phone: () - 07/05 CBC w/ auto diff BA % % 0.0 2.0 0.3 FINAL Nicole muñoz [facility] - [place], [address] [place] [id number] 0 Phone: () - 07/05 CBC w/ auto diff LY # K/uL 0.4 3.6 0.8 FINAL Nicole muñoz [facility] - [place], [address] [place] [id number] 0 Phone: () - 07/05 CBC w/ auto diff MO # K/uL 0.2 1.3 0.5 FINAL Nicole Terrazas [facility] - [place], [address] [place] [id number] 0 Phone: () - 07/05 CBC w/ auto diff EO # K/uL 0.0 0.6 0.0 FINAL iNcole Terrazas a [facility] - [place], [address] [place] [id number] 0 Phone: () - 07/05 CBC w/ auto diff BA # K/uL 0.0 0.2 0.0 FINAL Nicole Terrazas [facility] - [place], [address] [place] [id number] 0 Phone: () - 07/05 CBC w/ auto diff NRBC % #/100W BC 0.0 0.2 0.0 FINAL Nicole Terrazas [facility] - [place], [address] [place] [id number] 0 Phone: () - 07/05 CBC w/ auto diff RBC M/uL 3.9 5.1 3.95 FINAL Nicole muñoz [facility] - [place], [address] [place] [id number] 0 Phone: () - 07/05 CBC w/ auto diff HCT % 35.0 48.0 36.7 FINAL Nicole muñoz [facility] - [place], [address] [place] [id number] 0 Phone: () - 07/05 CBC w/ auto diff MCV fL 80.0 104.0 92.9 FINAL Nicole muñoz [facility] - [place], [address] [place] [id number] 0 Phone: () - 07/05 CBC w/ auto diff MCH pg 26.0 35.0 30.1 FINAL Nicole Terrazas [facility] [place], [address] [place] [id number] 0 Phone: () - 07/05 CBC w/ auto diff MCHC g/dL 30.0 35.0 32.4 FINAL Nicole Terrazas [facility] - [place], [address] [place] [id number] 0 Phone: () - 07/05 CBC w/ auto diff MPV fL 9.5 13.4 8.8 Low FINAL Nicole Felton Mathew a [facility] - [place], [address] [facility] [address] [facility] [place] [id number] 0 Phone: () - 07/05 CBC w/ auto diff RDW % 11.4 16.1 14.10 FINAL Nicole Felton Mathew a [facility] - [place], [address] [facility] [address] [facility] [place] [id number] 0 Phone: () - 07/05 CMP Album in g/dL 3.2 5.2 4.4 FINAL Nicole Ya * [facility], [address] [facility] [id number] 0 Phone: () - 07/05 CMP Alkal ine phosp hatas e U/L 46.0 116.0 107 FINAL Nicole Ya * [facility], [address] [facility] [address] [place] [address] [id number] 0 Phone: () - 07/05 CMP ALT/S GPT U/L 7.0 40.0 26 FINAL Nicoledarius Ya * [facility], [address] [facility] [id number] 0 Phone: () - 07/05 CMP AST/S GOT U/L 13.0 40.0 23 FINAL Nicoledarius Ya * [facility], [address] [facility] [id number] 0 Phone: () - 07/05 CMP BUN mg/dL 9.0 23.0 15.0 FINAL Nicole Ya * [facility], [address] [facility] [id number] 0 Phone: () - 07/05 CMP Calci um mg/dL 8.7 10.4 10.4 FINAL Nicole Ya * [facility], [address] [facility] [address] [facility] [id number] 0 Phone: () - 07/05 CMP Chlor rakan mmol/L 96.0 114.0 109 FINAL Nicole Ya * [facility], [address] [facility] [id number] 0 Phone: () - 07/05 CMP CO2 mmol/L 20.0 31.0 25 The expected total allowable error for CO2 is 5.6%. We have seen up to 10% differenc e in values if reported at the end of the 96 hour stability window. Please consider the clinical significa nce of a 2.0-2.5 mmol/L lower reported CO2 value if reported at the end of the 96 hour stability window. FINAL Nicoledarius Najera [place] [address] [id number] 0 Phone: () - 07/05 CMP Creat inine mg/dL 0.5 1.2 1.06 FINAL Nicole Najera [address] [id number] 0 Phone: () - 07/05 CMP GFR estim ate ml/min /1.73m ^2 56.7 Low GFR is calculate d using the CKD-EPI equation. FINAL Nicoledarius Najera [place] [address] [id number] 0 Phone: () - 07/05 CMP Gluco se mg/dL 73.0 126.0 97 FINAL Nicoledarius Najera [place] [address] [id number] 0 Phone: () - 07/05 CMP Potas sium mmol/L 3.5 5.1 4.4 FINAL Nicoledarius Najera [place] [address] [id number] 0 Phone: () - 07/05 CMP Sodiu m mmol/L 136.0 145.0 143 FINAL Nicoledarius Ya * [place] [address] [id number] 0 Phone: () - 07/05 CMP Bilir ubin, total mg/dL 0.3 1.2 0.5 FINAL Nicoledarius Ya * [facility] [address] [id number] [phone] Phone: () - 07/05 CMP Total prote in g/dL 5.7 8.2 6.4 FINAL Nicole Ya * [facility] [place], [address] [facility] [id number] 0 Phone: () - 12/02 PRIOR RESUL T See Report FINAL Nicole NEGRETE, [facility] [address] [place] [id number] 4 12/02 SOURC E: Periphe ral Blood FINAL Nicole NGERETE, [facility] [address] [place] [id number] 4 12/02 BCR ABL1/ ABL1 % % 0.000 FINAL Nicole NEGRETE, [facility] [address] [place] [id number] 4 12/02 BCR ABL1/ ABL1 % (IS) % 0.000 FINAL Nicole NEGRETE [facility] [address] [place] [id number] 4 12/02 INTER PRETA TION see note The P190 [...] l informati on, please refer tohttp:// education .ADARTIS/faq/F AQ72(This link is being provided forinform ational/e ducationa l purposes only.)Ass ay sensitivi ty is at least 4.5-logs below baselineB CR-ABL1 transcrip t levels but is dependent onquantit y and quality of RNA used for testing and thecellul arity of the sample.Th is test was developed and its analytica lperforma nce character istics have been determine dby [facility] [place], [place].It has not been cleared or approved by the FDA. Thisassay has been validated pursuant to the CLIAregul ations and is used for clinical purposes. Alejandro Ya, Ph.D, HCLD (ABB)Chucky head Director, Molecular Oncology FINAL Nicole Ya QUEST, [facility] [address] [place] [id number] 4 12/02 P190 BCR ABL1 Not Detecte d FINAL Nicole Ya QUEST, [facility] [address] [place] [id number] 4 12/02 P210 BCR ABL1 Not Detecte d FINAL Nicole Ya QUEST, [facility] [address] [place] [id number] 4 12/02 CMP Album in g/dL 3.5 5.0 4.3 FINAL Nicole Ya * [facility], [address] [facility] [id number] 0 12/02 CMP Alkal ine phosp hatas e U/L 36.0 125.0 126 High FINAL Nicole Ya * [facility], [address] [facility] [id number] 0 12/02 CMP ALT/S GPT U/L 0.0 34.0 29 FINAL Nicole Ya * [facility], [address] [facility] [id number] 0 12/02 CMP AST/S GOT U/L 14.0 36.0 39 High FINAL Nicole Ya * [facility], [address] [facility] [id number] 0 12/02 CMP BUN mg/dL 7.0 17.0 14.0 FINAL Nicole Ya * [facility], [address] [address] [facility] [id number] 0 12/02 CMP Calci um mg/dL 8.4 10.2 9.1 FINAL Nicole Ya * [facility], [address] [facility] [id number] 0 12/02 CMP Chlor rakan mmol/L 96.0 107.0 108 High FINAL Nicole Ya * [facility], [address] [facility] [id number] 0 12/02 CMP CO2 mmol/L 22.0 30.0 24 The expected total allowable error for CO2 is 5.6%. We have seen up to 10% differenc e in values if reported at the end of the 96 hour stability window. Please consider the clinical significa nce of a 2.0-2.5 mmol/L lower reported CO2 value if reported at the end of the 96 hour stability window. FINAL Nicole Ya * [facility], [address] [facility] [address] [facility] [id number] 0 12/02 CMP Creat inine mg/dL 0.66 1.25 1.30 High FINAL Nicole Ya * [place] [facility], [address] [facility] [address] [facility] [id number] 0 12/02 CMP GFR estim ate ml/min /1.73m ^2 44.3 Low GFR is calculate d using the CKD-EPI equation. FINAL Nicole Ya * [facility] [facility], [address] [facility] [address] [facility] [id number] 0 12/02 CMP Gluco se mg/dL 74.0 100.0 126 High FINAL Nicole Ya * [facility], [address] [facility] [address] [facility] [id number] 0 12/02 CMP Potas sium mmol/L 3.5 5.1 3.9 FINAL Nicole Ya * [facility] [facility], [address] [facility] [id number] 0 12/02 CMP Sodiu m mmol/L 137.0 145.0 140 FINAL Nicole Ya * [facility] [facility], [address] [facility] [id number] 0 12/02 CMP Bilir ubin, total mg/dL 0.2 1.3 0.7 FINAL Nicole Ya * [facility] [facility], [address] [facility] [id number] 0 12/02 CMP Total prote in g/dL 6.3 8.2 6.5 FINAL Nicole Ya * [facility] [facility], [address] [facility] [id number] 0 12/02 CBC w/ auto diff WBC K/uL 3.0 8.9 4.0 FINAL Nicole [facility] [place], [address] [place] [id number] 0 Phone: () - 12/02 CBC w/ auto diff HGB g/dL 11.3 15.2 12.8 FINAL Nicole [facility] [place], [address] [place] [id number] 0 Phone: () - 12/02 CBC w/ auto diff PLT K/uL 113.0 364.0 175 FINAL Nicole [facility] [place], [address] [place] [id number] 0 Phone: () - 12/02 CBC w/ auto diff Augustus # (ANC) K/uL 1.6 6.6 2.5 FINAL Nicole Ya [facility] [place], [address] [place] [id number] 0 Phone: () - 12/02 CBC w/ auto diff Augustus % % 43.0 74.0 63.2 FINAL Nicole [facility] [place], [address] [place] [id number] 0 Phone: () - 12/02 CBC w/ auto diff IG % % 0.0 0.5 0.3 FINAL Nicole [facility] [place], [address] [place] [id number] 0 Phone: () - 12/02 CBC w/ auto diff IG # K/uL 0.0 0.03 0.01 FINAL Nicole [facility] [place], [address] [place] [id number] 0 Phone: () - 12/02 CBC w/ auto diff LY % % 14.0 41.0 25.7 FINAL Nicole [facility] [place], [address] [place] [id number] 0 Phone: () - 12/02 CBC w/ auto diff MO % % 6.0 15.0 10.8 FINAL Nicole [facility] [place], [address] [place] [id number] 0 Phone: () - 12/02 CBC w/ auto diff EO % % 0.0 7.0 0.0 FINAL Nicole [facility] [place], [address] [place] [id number] 0 Phone: () - 12/02 CBC w/ auto diff BA % % 0.0 2.0 0.0 FINAL Nicole [facility] [place], [address] [place] [id number] 0 Phone: () - 12/02 CBC w/ auto diff LY # K/uL 0.4 3.6 1.0 FINAL Nicole [facility] [place], [address] [place] [id number] 0 Phone: () - 12/02 CBC w/ auto diff MO # K/uL 0.2 1.3 0.4 FINAL Nicole [facility] [place], [address] [place] [id number] 0 Phone: () - 12/02 CBC w/ auto diff EO # K/uL 0.0 0.6 0.0 FINAL Nicole [facility] [place], [address] [place] [id number] 0 Phone: () - 12/02 CBC w/ auto diff BA # K/uL 0.0 0.2 0.0 FINAL Nicole [facility] [place], [address] [place] [id number] 0 Phone: () - 12/02 CBC w/ auto diff NRBC % #/100W BC 0.0 0.2 0.0 FINAL Nicole [facility] [place], [address] [place] [id number] 0 Phone: () - 12/02 CBC w/ auto diff RBC M/uL 3.9 5.1 3.98 FINAL Nicole [facility] [place], [address] [place] [id number] 0 Phone: () - 12/02 CBC w/ auto diff HCT % 35.0 48.0 38.6 FINAL Nicole [facility] [place], [address] [place] [id number] 0 Phone: () - 12/02 CBC w/ auto diff MCV fL 80.0 104.0 97.0 FINAL Nicole [facility] [place], [address] [place] [id number] 0 Phone: () - 12/02 CBC w/ auto diff MCH pg 26.0 35.0 32.2 FINAL Nicole Ya [facility] [place], [address] [place] [id number] 0 Phone: () - 12/02 CBC w/ auto diff MCHC g/dL 30.0 35.0 33.2 FINAL Nicole Ya [facility] [place], [address] [place] [id number] 0 Phone: () - 12/02 CBC w/ auto diff MPV fL 9.5 13.4 9.1 Low FINAL Nicole Ya [facility] [place], [address] [place] [id number] 0 Phone: () - 12/02 CBC w/ auto diff RDW % 11.4 16.1 12.70 FINAL Nicole Ya [facility] [place], [address] [place] [id number] 0 Phone: () - 03/30 [facility] other lab See php consultant d 05/21 [facility] other lab See php consultant d 06/15 CMP Album in g/dL 3.5 5.0 4.6 FINAL Nicole Ya * [facility] , [address] [facility] [id number] 0 06/15 CMP Alkal ine phosp hatas e U/L 36.0 125.0 92 FINAL Nicole Ya * [facility] , [address] [facility] [id number] 0 06/15 CMP ALT/S GPT U/L 0.0 34.0 44 High FINAL Nicole Ya * [facility] , [address] [facility] [id number] 0 06/15 CMP AST/S GOT U/L 14.0 36.0 43 High FINAL Nicole Ya * [facility] , [address] [facility] [id number] 0 06/15 CMP BUN mg/dL 7.0 17.0 17.0 FINAL Nicole Ya * [facility] , [address] [facility] [id number] 0 06/15 CMP Calci um mg/dL 8.4 10.2 9.6 FINAL Nicole Ya * [facility] , [address] [address] [facility] [id number] 0 06/15 CMP Chlor arkan mmol/L 96.0 107.0 106 FINAL Nicole Ya * [facility] , [address] [facility] [address] [facility] [id number] 0 06/15 CMP CO2 mmol/L 22.0 30.0 29 The expected total allowable error for CO2 is 5.6%. We have seen up to 10% differenc e in values if reported at the end of the 96 hour stability window. Please consider the clinical significa nce of a 2.0-2.5 mmol/L lower reported CO2 value if reported at the end of the 96 hour stability window. FINAL Nicoledarius Ya * [facility] , [address] [facility] [id number] 0 06/15 CMP Creat inine mg/dL 0.66 1.25 1.30 High FINAL Nicole Ya * [facility] , [address] [facility] [id number] 0 06/15 CMP GFR estim ate ml/min /1.73m ^2 44.1 Low GFR is calculate d using the CKD-EPI equation. FINAL Nicoledarius Ya * [facility] , [address] [facility] [id number] 0 06/15 CMP Gluco se mg/dL 74.0 100.0 94 FINAL Nicole Ya * [facility] , [address] [facility] [id number] 0 06/15 CMP Potas sium mmol/L 3.5 5.1 4.1 FINAL Nicole Ya * [facility] , [address] [facility] [id number] 0 06/15 CMP Sodiu m mmol/L 137.0 145.0 140 FINAL Nicole Ya * [facility] , [address] [facility] [id number] 06/15 CMP Bilir ubin, total mg/dL 0.2 1.3 0.9 FINAL Nicole Ya * [facility] , [address] [facility] [id number] 0 06/15 CMP Total prote in g/dL 6.3 8.2 6.7 FINAL Nicole Ya * [facility] , [address] [facility] [id number] 0 06/15 CBC w/ auto diff WBC K/uL 3.0 8.9 4.7 FINAL Nicole Ya [place] [facility] [place] [facility] , [address] [place] [id number] 0 06/15 CBC w/ auto diff HGB g/dL 11.3 15.2 13.6 FINAL Nicole Ya [place] [facility] [place] [facility] , [address] [place] [id number] 0 06/15 CBC w/ auto diff PLT K/uL 113.0 364.0 151 FINAL Nicole Ya [place] [facility] [place] [facility] , [address] [place] [id number] 0 06/15 CBC w/ auto diff Augustus # (ANC) K/uL 1.6 6.6 2.9 FINAL Nicole Ya [place] [facility] [place] [facility] , [address] [place] [id number] 0 06/15 CBC w/ auto diff Augustus % % 43.0 74.0 61.4 FINAL Nicole Ya [place] [facility] [place] [facility] , [address] [place] [id number] 0 06/15 CBC w/ auto diff IG % % 0.0 0.5 0.2 FINAL Nicole Ya [place] [facility] [place] [facility] , [address] [place] [id number] 0 06/15 CBC w/ auto diff IG # K/uL 0.0 0.03 0.01 FINAL Nicole Ya [place] [facility] [place] [facility] , [address] [place] [id number] 0 06/15 CBC w/ auto diff LY % % 14.0 41.0 28.3 FINAL Nicole Ya [place] [facility] [place] [facility] , [address] [place] [id number] 0 06/15 CBC w/ auto diff MO % % 6.0 15.0 10.1 FINAL Nicole Ya [place] [facility] [place] [facility] , [address] [place] [id number] 0 06/15 CBC w/ auto diff EO % % 0.0 7.0 0.0 FINAL Nicole Ya [place] [facility] [place] [facility] , [address] [place] [id number] 0 06/15 CBC w/ auto diff BA % % 0.0 2.0 0.0 FINAL Nicole Ya [place] [facility] [place] [facility] , [address] [place] [id number] 0 06/15 CBC w/ auto diff LY # K/uL 0.4 3.6 1.3 FINAL Nicole Ya [place] [facility] [place] [facility] , [address] [place] [id number] 0 06/15 CBC w/ auto diff MO # K/uL 0.2 1.3 0.5 FINAL Nicole Ya [place] [facility] [place] [facility] , [address] [place] [id number] 0 06/15 CBC w/ auto diff EO # K/uL 0.0 0.6 0.0 FINAL Nicole Ya [place] [facility] [place] [facility] , [address] [place] [id number] 0 06/15 CBC w/ auto diff BA # K/uL 0.0 0.2 0.0 FINAL Nicole Ya [place] [facility] [place] [facility] , [address] [place] [id number] 0 06/15 CBC w/ auto diff NRBC % #/100W BC 0.0 0.2 0.0 FINAL Nicole Ya [place] [facility] [place] [facility] , [address] [place] [id number] 0 06/15 CBC w/ auto diff RBC M/uL 3.9 5.1 4.32 FINAL Nicole Ya [place] [facility] [place] [facility] , [address] [place] [id number] 0 06/15 CBC w/ auto diff HCT % 35.0 48.0 41.6 FINAL Nicole Ya [place] [facility] [place] [facility] , [address] [place] [id number] 0 06/15 CBC w/ auto diff MCV fL 80.0 104.0 96.3 FINAL Nicole Ya [place] [facility] [place] [facility] , [address] [place] [id number] 0 06/15 CBC w/ auto diff MCH pg 26.0 35.0 31.5 FINAL Nicole Ya [place] [facility] [place] [facility] , [address] [place] [id number] 0 06/15 CBC w/ auto diff MCHC g/dL 30.0 35.0 32.7 FINAL Nicole Ya [place] [facility] [place] [facility] , [address] [place] [id number] 0 06/15 CBC w/ auto diff MPV fL 9.5 13.4 9.3 Low FINAL Nicole Ya [place] [facility] [place] [facility] , [address] [place] [id number] 0 06/15 CBC w/ auto diff RDW % 11.4 16.1 12.00 FINAL Nicole Ya [place] [facility] [place] [facility] , [address] [place] [id number] 0 06/15 PRIOR RESUL T See Report FINAL Nicole NEGRETE [facility] [address] [place] [id number] 4 06/15 SOURC E: Periphe ral Blood FINAL Nicole NEGRETE, [facility] [address] [place] [id number] 4 06/15 BCR ABL1/ ABL1 % % 0.000 FINAL Nicole NEGRETE [facility] [address] [place] [id number] 4 06/15 BCR ABL1/ ABL1 % (IS) % 0.000 FINAL Nicole Unidym, [facility] [address] [place] [id number] 4 06/15 INTER PRETA TION see note The P190 [...] l informati on, please refer tohttp:// education .ADARTIS/faq/F AQ72(This link is being provided forinform ational/e ducationa l purposes only.)Ass ay sensitivi ty is at least 4.5-logs below baselineB CR-ABL1 transcrip t levels but is dependent onquantit y and quality of RNA used for testing and thecellul arity of the sample.Th is test was developed and its analytica lperforma nce character istics have been determine dby [facility] [place].It has not been cleared or approved by the FDA. Thisassay has been validated pursuant to the CLIAregul ations and is used for clinical purposes. Denver wilson M.D. FINAL [employer]St[employer], [facility] [address] [place] [id number] 4 06/15 P190 BCR ABL1 Not Detecte d FINAL Nicole Unidym, [facility] [address] [place] [id number] 4 06/15 P210 BCR ABL1 Not Detecte d FINAL [employer], [facility] [address] [place] [id number] 4 01/06 CMP Album in g/dL 3.5 5.0 3.9 FINAL Nicole Ya * [facility] , [address] [facility] [address] [id number] 0 01/06 CMP Alkal ine phosp hatas e U/L 36.0 125.0 79 FINAL Nicole Ya * [facility] , [address] [facility] [address] [id number] 0 01/06 CMP ALT/S GPT U/L 0.0 34.0 24 FINAL Nicole Ya * [facility] , [facility] [address] [id number] 0 01/06 CMP AST/S GOT U/L 14.0 36.0 33 FINAL Nicole Ya * [facility] , [address] [facility] [address] [id number] 0 01/06 CMP BUN mg/dL 7.0 17.0 14.0 FINAL Nicole Ya * [facility] , [address] [facility] [address] [id number] 0 01/06 CMP Calci um mg/dL 8.4 10.2 8.9 FINAL Nicole Ya * [facility] , [address] [facility] [address] [id number] 0 01/06 CMP Chlor rakan mmol/L 96.0 107.0 109 High FINAL Nicole Ya * [facility] , [address] [facility] [address] [id number] 0 01/06 CMP CO2 mmol/L 22.0 30.0 [...] hour stability window. FINAL Nicole Ya * [facility] [address] [id number] 0 01/06 CMP Creat inine mg/dL 0.66 1.25 1.00 FINAL Nicole Ya * [facility] [place] [facility] [address] [id number] 0 01/06 CMP GFR estim ate ml/min /1.73m ^2 60.2 GFR is calculate d using the CKD-EPI equation. FINAL Nicole Ya * [facility] [address] [id number] 0 01/06 CMP Gluco se mg/dL 74.0 100.0 88 FINAL Nicole Ya * [facility] , [facility] [address] [id number] 0 01/06 CMP Potas sium mmol/L 3.5 5.1 4.1 FINAL Nicole Ya * [facility] [address] [id number] 0 01/06 CMP Sodiu m mmol/L 137.0 145.0 141 FINAL Nicole Ya * [facility] , [facility] [address] [id number] 0 01/06 CMP Bilir ubin, total mg/dL 0.2 1.3 0.8 FINAL Nicole Ya * [facility] , [facility] [address] [id number] 0 01/06 CMP Total prote in g/dL 6.3 8.2 6.2 Low FINAL Nicole Ya * [facility] [place] [facility] [place] [facility] , [address] [place] [id number] 0 01/06 CBC w/ auto diff WBC K/uL 3.0 8.9 4.5 FINAL Nicole Ya [place] [facility] [place] [facility] , [address] [place] [id number] 0 01/06 CBC w/ auto diff HGB g/dL 11.3 15.2 12.8 FINAL Nicole Ya [place] [facility] [place] [facility] , [address] [place] [id number] 0 01/06 CBC w/ auto diff PLT K/uL 113.0 364.0 153 FINAL Nicole Felton [place] [facility] [place] [facility] , [address] [place] [id number] 0 01/06 CBC w/ auto diff Augustus # (ANC) K/uL 1.6 6.6 2.8 FINAL Nicole Ya [place] [facility] [place] [facility] , [address] [place] [id number] 0 01/06 CBC w/ auto diff Augustus % % 43.0 74.0 61.5 FINAL Nicole Ya [place] [facility] [place] [facility] , [address] [place] [id number] 0 01/06 CBC w/ auto diff IG % % 0.0 0.5 0.4 FINAL Nicole Ya [place] [facility] [place] [facility] , [address] [place] [id number] 0 01/06 CBC w/ auto diff IG # K/uL 0.0 0.03 0.02 FINAL Nicole Ya [place] [facility] [place] [facility] , [address] [place] [id number] 0 01/06 CBC w/ auto diff LY % % 14.0 41.0 25.4 FINAL Nicole Ya [place] [facility] [place] [facility] , [address] [place] [id number] 0 01/06 CBC w/ auto diff MO % % 6.0 15.0 12.7 FINAL Nicole Ya [place] [facility] [place] [facility] , [address] [place] [id number] 0 01/06 CBC w/ auto diff EO % % 0.0 7.0 0.0 FINAL Nicole Ya [place] [facility] [place] [facility] , [address] [place] [id number] 0 01/06 CBC w/ auto diff BA % % 0.0 2.0 0.0 FINAL Nicole Ya [place] [facility] [place] [facility] , [address] [place] [id number] 0 01/06 CBC w/ auto diff LY # K/uL 0.4 3.6 1.1 FINAL Nicole Ya [place] [facility] [place] [facility] , [address] [place] [id number] 0 01/06 CBC w/ auto diff MO # K/uL 0.2 1.3 0.6 FINAL Nicole Ya [place] [facility] [place] [facility] , [address] [place] [id number] 0 01/06 CBC w/ auto diff EO # K/uL 0.0 0.6 0.0 FINAL Nicole Ya [place] [facility] [place] [facility] , [address] [place] [id number] 0 01/06 CBC w/ auto diff BA # K/uL 0.0 0.2 0.0 FINAL Nicole Ya [place] [facility] [place] [facility] , [address] [place] [id number] 0 01/06 CBC w/ auto diff NRBC % #/100W BC 0.0 0.2 0.0 FINAL Nicole Ya [place] [facility] [place] [facility] , [address] [place] [id number] 0 01/06 CBC w/ auto diff RBC M/uL 3.9 5.1 3.69 Low FINAL Nicoledarius Ya [place] [facility] [place] [facility] , [address] [place] [id number] 0 01/06 CBC w/ auto diff HCT % 35.0 48.0 37.6 FINAL Nicoledarius Ya [facility] [place] [facility] , [address] [place] [id number] 0 01/06 CBC w/ auto diff MCV fL 80.0 104.0 101.9 FINAL Nicole Ya [place] [facility] [place] [facility] , [address] [place] [id number] 0 01/06 CBC w/ auto diff MCH pg 26.0 35.0 34.7 FINAL Nicole Ya [place] [facility] [place] [facility] , [address] [place] [id number] 0 01/06 CBC w/ auto diff MCHC g/dL 30.0 35.0 34.0 FINAL Nicole Ya [place] [facility] [place] [facility] , [address] [place] [id number] 0 01/06 CBC w/ auto diff MPV fL 9.5 13.4 9.6 FINAL Nicole Ya [place] [facility] [place] [facility] , [address] [place] [id number] 0 01/06 CBC w/ auto diff RDW % 11.4 16.1 13.00 FINAL Nicole Ya [place] [facility] [place] [facility] , [address] [place] [id number] 0 01/06 PRIOR RESUL T See Report FINAL Nicole Ya Toovari, [facility] [address] [place] [id number] 4 01/06 SOURC E: Periphe ral Blood FINAL Nicole NEGRETE, [facility] [address] [place] [id number] 4 01/06 BCR ABL1/ ABL1 % % 0.000 FINAL Nicole NEGRETE [facility] [address] [place] [id number] 4 01/06 BCR ABL1/ ABL1 % (IS) % 0.000 FINAL Nicole NEGRETE, [facility] [address] [place] [id number] 4 01/06 INTER PRETA TION see note [...] l informati on, please refer tohttp:// education .ADARTIS/faq/F [email or web address](This link is being provided forinform ational/e ducationa l purposes only.)Ass ay sensitivi ty is at least 4.5-logs below baselineB CR-ABL1 transcrip t levels but is dependent onquantit y and quality of RNA used for testing and thecellul arity of the sample.Th is test was developed and its analytica lperforma nce character istics have been determine dby [facility] [place], [place].It has not been cleared or approved by the FDA. Thisassay has been validated pursuant to the CLIAregul ations and is used for clinical purposes. Reviewed by Aiden Hui M.D., Ph.D.Rocío f Pathologi [facility] [employer], [facility] [address] [place] [id number] 4 01/06 P190 BCR ABL1 Not Detecte d [facility] [employer], [facility] [address] [place] [id number] 4 01/06 P210 BCR ABL1 Not Detecte d [facility] [employer], [facility] [address] [place] [id number] Medications Date Name Route Dose Frequency [...] hr Cap PO 2.0 CAPSUL E(S), SUSTAI EPTE ACTION daily 2018 active 03/13 nilotin ib [...] given Active Vital Signs Date Type Value 04/02/2019 Oxygen Saturation 98.00 04/02/2019 Body Temperature 98.10 04/02/2019 Heart Beat 81.00 04/02/2019 Respiratory Rate 16.00 04/02/2019 BSA 1.84 04/02/2019 Pain Scale 0.00 04/02/2019 Weight 161.40 04/02/2019 Height 66.50 04/02/2019 BMI 25.66 04/02/2019 Intravascular Systolic 110 04/02/2019 Intravascular Diastolic 68 06/01/2019 BSA 1.83 06/01/2019 BMI 25.60 06/01/2019 Height 66.50 06/01/2019 Weight 161.00 06/01/2019 Intravascular Systolic 120 06/01/2019 Intravascular Diastolic 82 06/01/2019 Oxygen Saturation 98.00 06/01/2019 Respiratory Rate 18.00 06/01/2019 Heart Beat 75.00 06/01/2019 Body Temperature 97.10 06/01/2019 Pain Scale 0.00 02/10/2020 BSA 1.89 02/10/2020 BMI 27.47 02/10/2020 Height 66.50 02/10/2020 Weight 172.80 02/10/2020 Pain Scale 7.00 02/10/2020 Oxygen Saturation 96.00 02/10/2020 Respiratory Rate 16.00 02/10/2020 Heart Beat 78.00 02/10/2020 Body Temperature 97.30 02/10/2020 Intravascular Systolic 118 02/10/2020 Intravascular Diastolic 80 08/30/2020 Intravascular Systolic 128 08/30/2020 Intravascular Diastolic 82 08/30/2020 Body Temperature 95.70 08/30/2020 BSA 1.91 08/30/2020 BMI 28.33 08/30/2020 Weight 178.20 08/30/2020 Pain Scale 0.00 08/30/2020 Oxygen Saturation 98.00 08/30/2020 Respiratory Rate 16.00 08/30/2020 Heart Beat 72.00 08/30/2020 Height 66.50 03/06/2021 Oxygen Saturation 96.00 03/06/2021 BMI 28.71 03/06/2021 Height 66.50 03/06/2021 Weight 180.60 03/06/2021 BSA 1.93 03/06/2021 Intravascular Systolic 118 03/06/2021 Intravascular Diastolic 80 03/06/2021 Respiratory Rate 16.00 03/06/2021 Heart Beat 77.00 03/06/2021 Body Temperature 97.90 03/06/2021 Pain Scale 0.00 08/23/2021 BMI 29.25 08/23/2021 Body Temperature 96.80 08/23/2021 Intravascular Systolic 112 08/23/2021 Intravascular Diastolic 72 08/23/2021 Oxygen Saturation 97.00 08/23/2021 Heart Beat 78.00 08/23/2021 BSA 1.94 08/23/2021 Height 66.50 08/23/2021 Weight 184.00 08/23/2021 Pain Scale 0.00 08/23/2021 Respiratory Rate 16.00 03/13/2022 Pain Scale 2.00 03/13/2022 Respiratory Rate 16.00 03/13/2022 Heart Beat 81.00 03/13/2022 Body Temperature 97.80 03/13/2022 Intravascular Systolic 124 03/13/2022 Intravascular Diastolic 70 03/13/2022 BSA 1.90 03/13/2022 BMI 27.92 03/13/2022 Height 66.50 03/13/2022 Weight 175.60 03/13/2022 Oxygen Saturation 99.00 09/11/2022 Heart Beat 71.00 09/11/2022 Oxygen Saturation 98.00 09/11/2022 Height 66.50 09/11/2022 Respiratory Rate 16.00 09/11/2022 Body Temperature 98.20 09/11/2022 Weight 176.20 09/11/2022 BMI 28.01 09/11/2022 BSA 1.91 09/11/2022 Intravascular Systolic 114 09/11/2022 Intravascular Diastolic 76 09/11/2022 Pain Scale 0.00 11/06/2022 BMI 28.39 11/06/2022 BSA 1.92 11/06/2022 Oxygen Saturation 98.00 11/06/2022 Body Temperature 97.80 11/06/2022 Height 66.50 11/06/2022 Respiratory Rate 16.00 11/06/2022 Intravascular Systolic 114 11/06/2022 Intravascular Diastolic 78 11/06/2022 Pain Scale 0.00 11/06/2022 Weight 178.60 11/06/2022 Heart Beat 66.00 11/09/2022 Height 66.50 11/09/2022 Pain Scale 0.00 11/16/2022 Oxygen Saturation 97.00 11/16/2022 Body Temperature 96.20 11/16/2022 Heart Beat 82.00 11/16/2022 Respiratory Rate 16.00 11/16/2022 BSA 1.92 11/16/2022 Pain Scale 0.00 11/16/2022 Weight 179.10 11/16/2022 Height 66.50 11/16/2022 BMI 28.47 11/16/2022 Intravascular Systolic 121 11/16/2022 Intravascular Diastolic 82 11/21/2022 Intravascular Systolic 114 11/21/2022 Intravascular Diastolic 76 11/21/2022 Body Temperature 97.50 11/21/2022 Heart Beat 71.00 11/21/2022 Respiratory Rate 16.00 11/21/2022 BSA 1.90 11/21/2022 Pain Scale 6.00 11/21/2022 Weight 175.80 11/21/2022 Height 66.50 11/21/2022 BMI 27.95 11/21/2022 Oxygen Saturation 99.00 11/27/2022 BSA 1.87 11/27/2022 BMI 26.92 11/27/2022 Height 66.50 11/27/2022 Weight 169.30 11/27/2022 Pain Scale 0.00 11/27/2022 Intravascular Systolic 144 11/27/2022 Intravascular Diastolic 98 11/27/2022 Respiratory Rate 16.00 11/27/2022 Heart Beat 122.00 11/27/2022 Oxygen Saturation 99.00 11/27/2022 Body Temperature 98.10 11/28/2022 BMI 27.50 11/28/2022 Respiratory Rate 16.00 11/28/2022 Weight 173.00 11/28/2022 Pain Scale 0.00 11/28/2022 Intravascular Systolic 134 11/28/2022 Intravascular Diastolic 76 11/28/2022 Height 66.50 11/28/2022 Heart Beat 57.00 11/28/2022 Body Temperature 98.90 11/28/2022 Oxygen Saturation 97.00 11/28/2022 BSA 1.89 11/29/2022 Body Temperature 97.80 11/29/2022 Oxygen Saturation 98.00 11/29/2022 Heart Beat 101.00 11/29/2022 Respiratory Rate 16.00 11/29/2022 Intravascular Systolic 120 11/29/2022 Intravascular Diastolic 71 11/29/2022 Pain Scale 0.00 11/29/2022 Height 66.50 12/03/2022 Height 66.50 12/03/2022 Body Temperature 98.30 12/03/2022 Pain Scale 0.00 12/03/2022 Heart Beat 69.00 12/03/2022 Oxygen Saturation 100.00 12/03/2022 Intravascular Systolic 128 12/03/2022 Intravascular Diastolic 86 12/07/2022 Oxygen Saturation 98.00 12/07/2022 Body Temperature 97.90 12/07/2022 Heart Beat 90.00 12/07/2022 Respiratory Rate 16.00 12/07/2022 BSA 1.91 12/07/2022 Pain Scale 0.00 12/07/2022 Weight 177.60 12/07/2022 Height 66.50 12/07/2022 BMI 28.24 12/07/2022 Intravascular Systolic 136 12/07/2022 Intravascular Diastolic 68 12/12/2022 Intravascular Systolic 106 12/12/2022 Intravascular Diastolic 71 12/12/2022 Pain Scale 0.00 12/12/2022 Height 66.50 12/12/2022 Oxygen Saturation 97.00 12/12/2022 Body Temperature 98.20 12/12/2022 Heart Beat 47.00 12/12/2022 Respiratory Rate 16.00 12/13/2022 Body Temperature 96.00 12/13/2022 BSA 1.89 12/13/2022 BMI 27.41 12/13/2022 Height 66.50 12/13/2022 Weight 172.40 12/13/2022 Pain Scale 0.00 12/13/2022 Respiratory Rate 18.00 12/13/2022 Oxygen Saturation 99.00 12/13/2022 Intravascular Systolic 120 12/13/2022 Intravascular Diastolic 72 12/13/2022 Heart Beat 101.00 12/14/2022 Height 66.50 12/14/2022 Pain Scale 0.00 12/14/2022 Intravascular Systolic 136 12/14/2022 Intravascular Diastolic 74 12/14/2022 Respiratory Rate 16.00 12/14/2022 Heart Beat 107.00 12/14/2022 Body Temperature 98.20 12/14/2022 Oxygen Saturation 97.00 12/27/2022 BSA 1.90 12/27/2022 Oxygen Saturation 97.00 12/27/2022 Body Temperature 97.80 12/27/2022 Heart Beat 84.00 12/27/2022 Respiratory Rate 16.00 12/27/2022 Intravascular Systolic 104 12/27/2022 Intravascular Diastolic 64 12/27/2022 Pain Scale 0.00 12/27/2022 Weight 175.40 12/27/2022 Height 66.50 12/27/2022 BMI 27.89 12/28/2022 BSA 1.90 12/28/2022 BMI 27.84 12/28/2022 Height 66.50 12/28/2022 Body Temperature 97.70 12/28/2022 Weight 175.10 12/28/2022 Respiratory Rate 16.00 12/28/2022 Oxygen Saturation 97.00 12/28/2022 Intravascular Systolic 121 12/28/2022 Intravascular Diastolic 72 12/28/2022 Pain Scale 0.00 12/28/2022 Heart Beat 94.00 01/01/2023 BSA 1.91 01/01/2023 BMI 28.12 01/01/2023 Height 66.50 01/01/2023 Weight 176.90 01/01/2023 Pain Scale 0.00 01/01/2023 Oxygen Saturation 98.00 01/01/2023 Respiratory Rate 16.00 01/01/2023 Heart Beat 83.00 01/01/2023 Intravascular Systolic 113 01/01/2023 Intravascular Diastolic 64 01/01/2023 Body Temperature 98.60 01/03/2023 Pain Scale 0.00 01/03/2023 Body Temperature 98.50 01/03/2023 Heart Beat 78.00 01/03/2023 Oxygen Saturation 98.00 01/03/2023 Intravascular Systolic 109 01/03/2023 Intravascular Diastolic 58 01/03/2023 Height 66.50 01/04/2023 Height 66.50 01/04/2023 Intravascular Systolic 113 01/04/2023 Intravascular Diastolic 71 01/04/2023 Body Temperature 98.30 01/04/2023 Heart Beat 71.00 01/04/2023 Oxygen Saturation 98.00 01/04/2023 Pain Scale 0.00 01/14/2023 Body Temperature 97.90 01/14/2023 Heart Beat 70.00 01/14/2023 Respiratory Rate 20.00 01/14/2023 Oxygen Saturation 99.00 01/14/2023 Intravascular Systolic 108 01/14/2023 Intravascular Diastolic 57 01/14/2023 Height 66.50 01/14/2023 Pain Scale 0.00 01/18/2023 Body Temperature 96.70 01/18/2023 Oxygen Saturation 98.00 01/18/2023 Height 66.50 01/18/2023 BMI 28.71 01/18/2023 Weight 180.60 01/18/2023 BSA 1.93 01/18/2023 Respiratory Rate 17.00 01/18/2023 Intravascular Systolic 112 01/18/2023 Intravascular Diastolic 78 01/18/2023 Pain Scale 0.00 01/18/2023 Heart Beat 74.00 01/23/2023 BSA 1.90 01/23/2023 BMI 27.74 01/23/2023 Height 66.50 01/23/2023 Pain Scale 0.00 01/23/2023 Intravascular Systolic 104 01/23/2023 Intravascular Diastolic 66 01/23/2023 Respiratory Rate 16.00 01/23/2023 Heart Beat 77.00 01/23/2023 Body Temperature 98.70 01/23/2023 Oxygen Saturation 97.00 01/23/2023 Weight 174.50 01/24/2023 Pain Scale 0.00 01/24/2023 Intravascular Systolic 112 01/24/2023 Intravascular Diastolic 67 01/24/2023 Respiratory Rate 16.00 01/24/2023 Heart Beat 82.00 01/24/2023 Body Temperature 97.70 01/24/2023 Oxygen Saturation 99.00 01/24/2023 Height 66.50 01/29/2023 BSA 1.88 01/29/2023 BMI 27.06 01/29/2023 Height 66.50 01/29/2023 Weight 170.20 01/29/2023 Pain Scale 0.00 01/29/2023 Heart Beat 89.00 01/29/2023 Respiratory Rate 16.00 01/29/2023 Intravascular Systolic 123 01/29/2023 Intravascular Diastolic 78 01/29/2023 Body Temperature 98.40 01/29/2023 Oxygen Saturation 96.00 01/30/2023 Pain Scale 0.00 01/30/2023 Intravascular Systolic 115 01/30/2023 Intravascular Diastolic 66 01/30/2023 Heart Beat 78.00 01/30/2023 Respiratory Rate 16.00 01/30/2023 Oxygen Saturation 98.00 01/30/2023 Body Temperature 97.90 01/30/2023 Height 66.50 01/31/2023 Height 66.50 01/31/2023 Pain Scale 0.00 01/31/2023 Intravascular Systolic 113 01/31/2023 Intravascular Diastolic 71 01/31/2023 Respiratory Rate 16.00 01/31/2023 Body Temperature 98.50 01/31/2023 Oxygen Saturation 98.00 01/31/2023 Heart Beat 82.00 02/05/2023 Oxygen Saturation 96.00 02/05/2023 Body Temperature 99.10 02/05/2023 Heart Beat 112.00 02/05/2023 Respiratory Rate 16.00 02/05/2023 Intravascular Systolic 110 02/05/2023 Intravascular Diastolic 76 02/05/2023 Pain Scale 3.00 02/05/2023 Weight 174.40 02/05/2023 Height 66.50 02/05/2023 BMI 27.73 02/05/2023 BSA 1.90 02/07/2023 Oxygen Saturation 93.00 02/07/2023 Body Temperature 97.00 02/07/2023 Heart Beat 82.00 02/07/2023 Height 66.50 02/07/2023 Intravascular Systolic 94 02/07/2023 Intravascular Diastolic 64 02/07/2023 Pain Scale 0.00 02/07/2023 Respiratory Rate 16.00 02/08/2023 Intravascular Systolic 104 02/08/2023 Intravascular Diastolic 68 02/08/2023 Pain Scale 0.00 02/08/2023 Weight 179.60 02/08/2023 Height 66.50 02/08/2023 BMI 28.55 02/08/2023 BSA 1.92 02/08/2023 Oxygen Saturation 99.00 02/08/2023 Body Temperature 97.70 02/08/2023 Heart Beat 77.00 02/08/2023 Respiratory Rate 16.00 02/12/2023 BMI 28.08 02/12/2023 Height 66.50 02/12/2023 Weight 176.60 02/12/2023 Pain Scale 0.00 02/12/2023 BSA 1.91 02/12/2023 Respiratory Rate 16.00 02/12/2023 Heart Beat 80.00 02/12/2023 Body Temperature 98.30 02/12/2023 Oxygen Saturation 98.00 02/12/2023 Intravascular Systolic 97 02/12/2023 Intravascular Diastolic 66 02/19/2023 BSA 1.90 02/19/2023 BMI 27.97 02/19/2023 Height 66.50 02/19/2023 Weight 175.90 02/19/2023 Pain Scale 0.00 02/19/2023 Oxygen Saturation 98.00 02/19/2023 Respiratory Rate 16.00 02/19/2023 Heart Beat 84.00 02/19/2023 Body Temperature 97.30 02/19/2023 Intravascular Systolic 100 02/19/2023 Intravascular Diastolic 61 03/01/2023 BMI 29.00 03/01/2023 Height 66.50 03/01/2023 Weight 182.40 03/01/2023 Pain Scale 0.00 03/01/2023 BSA 1.93 03/01/2023 Respiratory Rate 14.00 03/01/2023 Heart Beat 72.00 03/01/2023 Body Temperature 97.10 03/01/2023 Oxygen Saturation 98.00 03/01/2023 Intravascular Systolic 108 03/01/2023 Intravascular Diastolic 67 03/22/2023 BMI 28.09 03/22/2023 BSA 1.91 03/22/2023 Oxygen Saturation 99.00 03/22/2023 Body Temperature 97.90 03/22/2023 Heart Beat 78.00 03/22/2023 Respiratory Rate 16.00 03/22/2023 Intravascular Systolic 111 03/22/2023 Intravascular Diastolic 69 03/22/2023 Pain Scale 0.00 03/22/2023 Height 66.50 03/22/2023 Weight 176.70 04/12/2023 BSA 1.94 04/12/2023 Body Temperature 97.20 04/12/2023 Heart Beat 72.00 04/12/2023 Respiratory Rate 14.00 04/12/2023 Oxygen Saturation 98.00 04/12/2023 Intravascular Systolic 144 04/12/2023 Intravascular Diastolic 72 04/12/2023 Pain Scale 0.00 04/12/2023 Weight 183.80 04/12/2023 Height 66.50 04/12/2023 BMI 29.22 05/03/2023 Body Temperature 97.70 05/03/2023 BSA 1.93 05/03/2023 BMI 28.87 05/03/2023 Height 66.50 05/03/2023 Weight 181.60 05/03/2023 Oxygen Saturation 98.00 05/03/2023 Respiratory Rate 16.00 05/03/2023 Heart Beat 77.00 05/03/2023 Pain Scale 0.00 05/03/2023 Intravascular Systolic 132 05/03/2023 Intravascular Diastolic 76 05/24/2023 Pain Scale 0.00 05/24/2023 Weight 184.20 05/24/2023 Height 66.50 05/24/2023 BMI 29.28 05/24/2023 BSA 1.94 05/24/2023 Respiratory Rate 16.00 05/24/2023 Heart Beat 62.00 05/24/2023 Body Temperature 98.10 05/24/2023 Oxygen Saturation 97.00 05/24/2023 Intravascular Systolic 141 05/24/2023 Intravascular Diastolic 77 06/04/2023 Respiratory Rate 17.00 06/04/2023 Heart Beat 89.00 06/04/2023 Body Temperature 97.40 06/04/2023 Oxygen Saturation 97.00 06/04/2023 Intravascular Systolic 139 06/04/2023 Intravascular Diastolic 80 06/04/2023 BSA 1.89 06/04/2023 BMI 27.58 06/04/2023 Height 66.50 06/04/2023 Weight 173.50 06/04/2023 Pain Scale 0.00 06/14/2023 BMI 29.21 06/14/2023 Height 66.50 06/14/2023 Weight 183.70 06/14/2023 Pain Scale 0.00 06/14/2023 BSA 1.94 06/14/2023 Body Temperature 97.40 06/14/2023 Heart Beat 80.00 06/14/2023 Respiratory Rate 16.00 06/14/2023 Intravascular Systolic 126 06/14/2023 Intravascular Diastolic 73 06/14/2023 Oxygen Saturation 98.00 07/05/2023 Pain Scale 0.00 07/05/2023 Weight 180.00 07/05/2023 Height 66.50 07/05/2023 BMI 28.62 07/05/2023 BSA 1.92 07/05/2023 Oxygen Saturation 98.00 07/05/2023 Body Temperature 97.80 07/05/2023 Heart Beat 77.00 07/05/2023 Respiratory Rate 16.00 07/05/2023 Intravascular Systolic 122 07/05/2023 Intravascular Diastolic 76 07/26/2023 BSA 1.91 07/26/2023 Intravascular Systolic 146 07/26/2023 Intravascular Diastolic 74 07/26/2023 Respiratory Rate 16.00 07/26/2023 Heart Beat 85.00 07/26/2023 Body Temperature 97.30 07/26/2023 Oxygen Saturation 92.00 07/26/2023 BMI 28.19 07/26/2023 Height 66.50 07/26/2023 Weight 177.30 07/26/2023 Pain Scale 0.00 08/16/2023 Heart Beat 77.00 08/16/2023 Body Temperature 97.10 08/16/2023 BSA 1.90 08/16/2023 Height 66.50 08/16/2023 BMI 27.73 08/16/2023 Intravascular Systolic 134 08/16/2023 Intravascular Diastolic 79 08/16/2023 Oxygen Saturation 98.00 08/16/2023 Pain Scale 0.00 08/16/2023 Weight 174.40 09/06/2023 Oxygen Saturation 98.00 09/06/2023 Body Temperature 97.00 09/06/2023 Heart Beat 68.00 09/06/2023 Respiratory Rate 16.00 09/06/2023 BSA 1.90 09/06/2023 Pain Scale 0.00 09/06/2023 Weight 174.20 09/06/2023 Height 66.50 09/06/2023 BMI 27.70 09/06/2023 Intravascular Systolic 131 09/06/2023 Intravascular Diastolic 73 09/27/2023 BMI 28.14 09/27/2023 Height 66.50 09/27/2023 Weight 177.00 09/27/2023 Pain Scale 0.00 09/27/2023 BSA 1.91 09/27/2023 Oxygen Saturation 97.00 09/27/2023 Respiratory Rate 16.00 09/27/2023 Heart Beat 78.00 09/27/2023 Body Temperature 97.70 09/27/2023 Intravascular Systolic 118 09/27/2023 Intravascular Diastolic 80 10/18/2023 BSA 1.90 10/18/2023 BMI 27.87 10/18/2023 Height 66.50 10/18/2023 Intravascular Systolic 120 10/18/2023 Intravascular Diastolic 85 10/18/2023 Oxygen Saturation 98.00 10/18/2023 Respiratory Rate 18.00 10/18/2023 Heart Beat 71.00 10/18/2023 Body Temperature 97.70 10/18/2023 Weight 175.30 10/18/2023 Pain Scale 3.00 11/08/2023 Pain Scale 2.00 11/08/2023 Oxygen Saturation 96.00 11/08/2023 Body Temperature 97.60 11/08/2023 Heart Beat 72.00 11/08/2023 BSA 1.90 11/08/2023 Intravascular Systolic 121 11/08/2023 Intravascular Diastolic 81 11/08/2023 Weight 175.20 11/08/2023 Height 66.50 11/08/2023 BMI 27.85 11/08/2023 Respiratory Rate 16.00 12/13/2023 Pain Scale 0.00 12/13/2023 Body Temperature 97.50 12/13/2023 Heart Beat 69.00 12/13/2023 Respiratory Rate 16.00 12/13/2023 BSA 1.89 12/13/2023 Intravascular Systolic 144 12/13/2023 Intravascular Diastolic 90 12/13/2023 Weight 172.20 12/13/2023 Height 66.50 12/13/2023 BMI 27.38 12/13/2023 Oxygen Saturation 98.00 03/23/2024 Oxygen Saturation 98.00 03/23/2024 Body Temperature 97.50 03/23/2024 Heart Beat 63.00 03/23/2024 Respiratory Rate 16.00 03/23/2024 BSA 1.90 03/23/2024 Pain Scale 0.00 03/23/2024 Weight 174.90 03/23/2024 Height 66.50 03/23/2024 BMI 27.81 03/23/2024 Intravascular Systolic 122 03/23/2024 Intravascular Diastolic 68 06/15/2024 BMI 27.44 06/15/2024 Height 66.50 06/15/2024 Weight 172.60 06/15/2024 Pain Scale 0.00 06/15/2024 BSA 1.89 06/15/2024 Oxygen Saturation 98.00 06/15/2024 Respiratory Rate 16.00 06/15/2024 Heart Beat 82.00 06/15/2024 Body Temperature 98.30 06/15/2024 Intravascular Systolic 130 06/15/2024 Intravascular Diastolic 86 01/06/2025 BSA 1.88 01/06/2025 BMI 27.04 01/06/2025 Height 66.50 01/06/2025 Weight 170.10 01/06/2025 Pain Scale 1.00 01/06/2025 Intravascular Systolic 130 01/06/2025 Intravascular Diastolic 88 01/06/2025 Oxygen Saturation 96.00 01/06/2025 Respiratory Rate 16.00 01/06/2025 Body Temperature 96.40 01/06/2025 Heart Beat 50.00 01/20/2025 Body Temperature 96.80 01/20/2025 Heart Beat 72.00 01/20/2025 Respiratory Rate 16.00 01/20/2025 Oxygen Saturation 98.00 01/20/2025 BSA 1.88 01/20/2025 Pain Scale 0.00 01/20/2025 Weight 169.80 01/20/2025 Height 66.50 01/20/2025 BMI 27.00 01/20/2025 Intravascular Systolic 132 01/20/2025 Intravascular Diastolic 82
--- OUTSIDE RECORDS SUMMARY | 2025-01-25 22:53 | XMS_ITS ---
Author Name Interface, [id number] lity Address [address] [place] [address] Oncology Address [facility] [address] [address] Allergies and Adverse Reactions Plan Reason for Visit Encounters Immunizations Diagnostic Results Medications Problems Vital Signs
--- OUTSIDE RECORDS SUMMARY | 2025-01-25 22:54 | XMS_ITS ---
Author Name Interface, P2Jrrpaou lity Address [address] [facility] [address] [address] [facility] Address [address] [facility] [address] [address] Allergies and Adverse Reactions Medication/Group Name Reaction [...] 03/22/2023 APPOINTMENT TREATMENT 2 HR 03/13/2023 APPOINTMENT JAIL FOLLOW UP 20 MIN 03/13/2023 APPOINTMENT LAB [...] 15 MIN 12/12/2022 APPOINTMENT TREATMENT 2 HR 12/12/2022 LABORDER iSTAT Na+/K+/Cl- panel 12/12/2022 LABORDER [...] Visit OV 30 MIN Encounters Date Name 12/12/2022 Breast cancer, femal e 12/12/2022 Vicky intertrigo ( disorder) 12/12/2022 Cellulitis of breast (disorder) 12/12/2022 Chronic myeloid leuk emia, disease (disorder) 12/12/2022 Counseling 12/12/2022 Dehydration 12/12/2022 Depressive disorder (disorder) 12/12/2022 Diarrhea caused by d rug (disorder) 12/12/2022 Drug-induced nausea and vomiting (disorder) 12/12/2022 Fatigue (finding) 12/12/2022 Hypokalemia (disorde r) 12/12/2022 Limited range of mot ion 12/12/2022 Lower extremity elie a 12/12/2022 Lymphedema 12/12/2022 Muscle weakness (fin ding) 12/12/2022 Personal history of breast cancer 12/12/2022 Right shoulder pain 12/12/2022 Screening status (fi nding) 12/12/2022 Thrombocytopenia cau sed by drugs (disorder) Immunizations Date Name Route Dose Instructions Refusal Reason Stat us Flu vaccine - Adult Comp leted Flu vaccine - Adult Comp leted Covid-19 vaccine (Moderna) Patient declined/rejected Not Administered Diagnostic Results Date Type Test Units Lower Limit Upper Limit Result Flag Comments Status Ordered By Specimen Source Lab Address 12/12 CBC w/ auto diff WBC K/uL 3.0 8.9 2.0 Low FINAL [facility] [place], [address] [place] [phone] 0 Phone: () - 12/12 CBC w/ auto diff HGB g/dL 11.3 15.2 11.2 Low FINAL [facility] [place], [address] [place] [phone] 0 Phone: () - 12/12 CBC w/ auto diff PLT K/uL 113.0 364.0 27 Critica l hematol ogy result obtaine d Criti todd Low FINAL [facility] [place], [address] [place] [phone] 0 Phone: () - 12/12 CBC w/ auto diff Plate let, immat ure, fract ion % 0.9 11.2 7.0 FINAL Nicole [facility] [place], [address] [place] [phone] 0 Phone: () - 12/12 CBC w/ auto diff Augustus # (ANC) K/uL 1.6 6.6 1.1 Low FINAL Nicole [facility] [place], [address] [place] [id number] 0 Phone: () - 12/12 CBC w/ auto diff Augustus % % 43.0 74.0 56.0 FINAL Nicole [facility] [place], [address] [place] [phone] 0 Phone: () - 12/12 CBC w/ auto diff IG % % 0.0 0.5 3.0 High FINAL Nicole [facility] [place], [address] [place] [phone] 0 Phone: () - 12/12 CBC w/ auto diff IG # K/uL 0.0 0.03 0.06 High FINAL Nicole [facility] [place], [address] [place] [phone] 0 Phone: () - 12/12 CBC w/ auto diff LY % % 14.0 41.0 35.5 FINAL Nicole [facility] [place], [address] [place] [phone] 0 Phone: () - 12/12 CBC w/ auto diff MO % % 6.0 15.0 2.0 Low FINAL Nicole [facility] [place], [address] [place] [phone] 0 Phone: () - 12/12 CBC w/ auto diff EO % % 0.0 7.0 1.0 FINAL Nicole [facility] [place], [address] [place] [phone] 0 Phone: () - 12/12 CBC w/ auto diff BA % % 0.0 2.0 2.5 High FINAL Nicole [facility] [place], [address] [place] [phone] 0 Phone: () - 12/12 CBC w/ auto diff LY # K/uL 0.4 3.6 0.7 FINAL Nicole [facility] [place], [address] [place] [phone] 0 Phone: () - 12/12 CBC w/ auto diff MO # K/uL 0.2 1.3 0.0 Low FINAL Nicole Ya [facility] [place], [address] [place] [id number] 0 Phone: () - 12/12 CBC w/ auto diff EO # K/uL 0.0 0.6 0.0 FINAL Nicole muñoz [facility] - [place], [address] [place] [id number] 0 Phone: () - 12/12 CBC w/ auto diff BA # K/uL 0.0 0.2 0.1 FINAL Nicole muñoz [facility] - [place], [address] [place] [phone] 0 Phone: () - 12/12 CBC w/ auto diff NRBC % #/100W BC 0.0 0.2 1.0 High FINAL Nicole muñoz [facility] - [place], [address] [place] [id number] 0 Phone: () - 12/12 CBC w/ auto diff RBC M/uL 3.9 5.1 3.51 Low FINAL Nicole muñoz [facility] - [place], [address] [place] [id number] 0 Phone: () - 12/12 CBC w/ auto diff HCT % 35.0 48.0 33.7 Low FINAL Nicole muñoz [facility] - [place], [address] [place] [phone] 0 Phone: () - 12/12 CBC w/ auto diff MCV fL 80.0 104.0 96.0 FINAL Nicole muñoz [facility] - [place], [address] [place] [phone] 0 Phone: () - 12/12 CBC w/ auto diff MCH pg 26.0 35.0 31.9 FINAL Nicole muñoz [facility] - [place], [address] [place] [phone] 0 Phone: () - 12/12 CBC w/ auto diff MCHC g/dL 30.0 35.0 33.2 FINAL Nicole muñoz [facility] - [place], [address] [place] [phone] 0 Phone: () - 12/12 CBC w/ auto diff MPV fL 9.5 13.4 11.1 FINAL Nicole muñoz [facility] - [place], [address] [place] [id number] 0 Phone: () - 12/12 CBC w/ auto diff RDW % 11.4 16.1 13.00 FINAL Nicole muñoz [facility] - [place], [address] [place] [phone] 0 Phone: () - 12/12 iSTAT Na+/K +/Cl- panel Sodiu m, iSTAT mmol/L 138.0 146.0 137 Low Reference range adjusted 0 with implement ation of I-Stat 8+ cartridge . FINAL Nicole muñoz [facility] [place], [address] [place] [id number] 0 Phone: () - 12/12 iSTAT Na+/K +/Cl- panel Potas sium, iSTAT mmol/L 3.5 4.9 3.9 Reference range adjusted 0 with implement ation of I-Stat 8+ cartridge . FINAL Nicole muñoz [facility] - [place], [address] [place] [phone] 0 Phone: () - 12/12 iSTAT Na+/K +/Cl- panel Chlor rakan, iSTAT mmol/L 98.0 109.0 99 Reference range adjusted 0 with implement ation of I-Stat 8+ cartridge . FINAL Nicole muñoz [facility] - [place], [address] [place] [phone] 0 Phone: () - 12/27 CBC w/ auto diff WBC K/uL 3.0 8.9 6.3 FINAL Nicole muñoz [facility] - [place], [address] [place] [id number] 0 Phone: () - 12/27 CBC w/ auto diff HGB g/dL 11.3 15.2 10.2 Low FINAL Nicole muñoz [facility] - [place], [address] [place] [phone] 0 Phone: () - 12/27 CBC w/ auto diff PLT K/uL 113.0 364.0 108 Low FINAL Nicole muñoz [facility] - [place], [address] [place] [id number] 0 Phone: () - 12/27 CBC w/ auto diff Augustus # (ANC) K/uL 1.6 6.6 3.8 FINAL Nicole muñoz [facility] - [place], [address] [place] [phone] 0 Phone: () - 12/27 CBC w/ auto diff Augustus % % 43.0 74.0 60.1 FINAL Nicoledarius muñoz [facility] - [place], [address] [place] [phone] 0 Phone: () - 12/27 CBC w/ auto diff IG % % 0.0 0.5 0.6 High FINAL Nicole [facility] [place], [address] [place] [id number] 0 Phone: () - 12/27 CBC w/ auto diff IG # K/uL 0.0 0.03 0.04 High FINAL [facility] [place], [address] [place] [phone] 0 Phone: () - 12/27 CBC w/ auto diff LY % % 14.0 41.0 25.1 FINAL Nicole [facility] [place], [address] [place] [phone] 0 Phone: () - 12/27 CBC w/ auto diff MO % % 6.0 15.0 13.7 FINAL Nicole Terrazas [facility] [place], [address] [place] [id number] 0 Phone: () - 12/27 CBC w/ auto diff EO % % 0.0 7.0 0.2 FINAL Nicole [facility] [place], [address] [place] [phone] 0 Phone: () - 12/27 CBC w/ auto diff BA % % 0.0 2.0 0.3 FINAL Nicole Terrazas [facility] [place], [address] [place] [id number] 0 Phone: () - 12/27 CBC w/ auto diff LY # K/uL 0.4 3.6 1.6 FINAL Nicole [facility] [place], [address] [place] [id number] 0 Phone: () - 12/27 CBC w/ auto diff MO # K/uL 0.2 1.3 0.9 FINAL Nicole [facility] [place], [address] [place] [id number] 0 Phone: () - 12/27 CBC w/ auto diff EO # K/uL 0.0 0.6 0.0 FINAL Nicole Terrazas [facility] [place], [address] [place] [id number] 0 Phone: () - 12/27 CBC w/ auto diff BA # K/uL 0.0 0.2 0.0 FINAL Nicole [facility] [place], [address] [place] [phone] 0 Phone: () - 12/27 CBC w/ auto diff NRBC % #/100W BC 0.0 0.2 0.0 FINAL Nicole [facility] [place], [address] [place] [id number] 0 Phone: () - 12/27 CBC w/ auto diff RBC M/uL 3.9 5.1 3.18 Low FINAL Nicole muñoz [facility] [place], [address] [place] [id number] 0 Phone: () - 12/27 CBC w/ auto diff HCT % 35.0 48.0 32.2 Low FINAL Nicole muñoz [facility] - [place], [address] [place] [phone] 0 Phone: () - 12/27 CBC w/ auto diff MCV fL 80.0 104.0 101.3 FINAL Nicole muñoz [facility] - [place], [address] [place] [phone] 0 Phone: () - 12/27 CBC w/ auto diff MCH pg 26.0 35.0 32.1 FINAL Nicole [facility] [place], [address] [place] [id number] 0 Phone: () - 12/27 CBC w/ auto diff MCHC g/dL 30.0 35.0 31.7 FINAL Nicole muñoz [facility] - [place], [address] [place] [id number] 0 Phone: () - 12/27 CBC w/ auto diff MPV fL 9.5 13.4 8.8 Low FINAL Nicole muñoz [facility] - [place], [address] [place] [id number] 0 Phone: () - 12/27 CBC w/ auto diff RDW % 11.4 16.1 15.80 FINAL Nicole muñoz [facility] - [place], [address] [place] [id number] 0 Phone: () - 12/27 iSTAT creat inine panel Creat inine , iSTAT mg/dl 0.6 1.3 1.0 FINAL Nicole muñoz [facility] - [place], [address] [place] [id number] 0 Phone: () - 12/27 iSTAT creat inine panel GFR estim ate ml/min /1.73m ^2 61.0 GFR is calculate d using the CKD-EPI equation. FINAL Nicole muñoz [facility] [place], [address] [place] [phone] 0 Phone: () - 12/27 CMP Album in g/dL 3.2 5.2 3.7 FINAL Nicole muñoz Oncology [facility], [address] [place] [id number] 0 Phone: () - 12/27 CMP Alkal ine phosp hatas e U/L 46.0 116.0 94 FINAL Nicole muñoz On[facility], [address] [place] [id number] 0 Phone: () - 12/27 CMP ALT/S GPT U/L 7.0 40.0 33 FINAL Nicole muñoz On[facility], [address] [place] [id number] 0 Phone: () - 12/27 CMP AST/S GOT U/L 13.0 40.0 21 FINAL Nicole Terrazas [facility], [address] [facility] [address] [facility] [phone] 0 Phone: () - 12/27 CMP BUN mg/dL 9.0 23.0 8.0 Low FINAL Nicole muñoz [facility] [address] [facility] [address] [facility] [id number] 0 Phone: () - 12/27 CMP Calci um mg/dL 8.7 10.4 8.5 Low FINAL Nicole muñoz [facility] [address] [facility] 100 [facility] [phone] 0 Phone: () - 12/27 CMP Chlor rakan mmol/L 96.0 114.0 114 FINAL Nicole muñoz [facility] [address] [id number] 0 Phone: () - 12/27 CMP CO2 [...] 96 hour stability window. FINAL Nicole muñoz [facility], [facility] N [address] [phone] 0 Phone: () - 12/27 CMP Creat inine mg/dL 0.5 1.2 0.89 FINAL Nicole muñoz [facility], [facility] N [address] [phone] 0 Phone: () - 12/27 CMP GFR estim ate ml/min /1.73m ^2 70.1 GFR is calculate d using the CKD-EPI equation. FINAL Nicole muñoz [facility], [facility] [address] [facility] 100 [facility] [phone] 0 Phone: () - 12/27 CMP Gluco se mg/dL 73.0 126.0 92 FINAL Nicole Terrazas [place] [address] [address] [facility] 100 [facility] [id number] 0 Phone: () - 12/27 CMP Potas sium mmol/L 3.5 5.1 4.3 FINAL Nicole muñoz [facility], [address] [facility] [facility] [phone] 0 Phone: () - 12/27 CMP Sodiu m mmol/L 136.0 145.0 145 FINAL Nicole muñoz [facility], [address] [facility] [address] [place] [phone] Phone: () - 12/27 CMP Bilir ubin, total mg/dL 0.3 1.2 0.5 FINAL Nicole muñoz [facility], [address] [facility] [address] [place] [phone] 0 Phone: () - 12/27 CMP Total prote in g/dL 5.7 8.2 5.5 Low FINAL Nicole muñoz [place] [address] [address] [facility] [address] [place] [phone] Phone: () - 01/18 iSTAT creat inine panel Creat inine , iSTAT mg/dl 0.6 1.3 0.8 FINAL Nicole muñoz [facility] [place], [address] [facility] [address] [place] [phone] Phone: () - 01/18 iSTAT creat inine panel GFR estim ate ml/min /1.73m ^2 79.7 GFR is calculate d using the CKD-EPI equation. FINAL Nicole muñoz [facility] [place] , [address] [facility] [address] [place] [phone] 0 Phone: () - 01/18 CMP Album in g/dL 3.2 5.2 3.7 FINAL Nicole muñoz [facility], [facility] N [facility] [address] [place] [address] [phone] 0 Phone: () - 01/18 CMP Alkal ine phosp hatas e U/L 46.0 116.0 94 FINAL Nicole muñoz [facility], [address] [facility] [address] [place] [phone] 0 Phone: () - 01/18 CMP ALT/S GPT U/L 7.0 40.0 33 FINAL [place] [address] [address] [facility] 100 [facility] [phone] 0 Phone: () - 01/18 CMP AST/S GOT U/L 13.0 40.0 18 [facility] [address] [facility] 100 [facility] [phone] 0 Phone: () - 01/18 CMP BUN mg/dL 9.0 23.0 10.0 FINAL [place] [address] [address] [facility] 100 [facility] [phone] 0 Phone: () - 01/18 CMP Calci um mg/dL 8.7 10.4 9.0 FINAL [place] [address] [address] [facility] 100 [facility] [phone] 0 Phone: () - 01/18 CMP Chlor rakan mmol/L 96.0 114.0 108 [facility] 100 [facility] [phone] 0 Phone: () - 01/18 CMP CO2 [...] 96 hour stability window. FINAL Nicole Terrazas [facility], [facility] [address] [facility] 100 [facility] [phone] 0 Phone: () - 01/18 CMP Creat inine mg/dL 0.5 1.2 0.80 FINAL [place] [address] [address] [facility] 100 [facility] [phone] 0 Phone: () - 01/18 CMP GFR estim ate ml/min /1.73m ^2 79.7 GFR is calculate d using the CKD-EPI equation. FINAL [place] [address] [address] [facility] 100 [facility] [phone] 0 Phone: () - 01/18 CMP Gluco se mg/dL 73.0 126.0 156 High FINAL Nicole muñoz [facility], [address] [facility] 100 [facility] [id number] 0 Phone: () - 01/18 CMP Potas sium mmol/L 3.5 5.1 4.7 FINAL Nicole muñoz [facility], [address] [facility] 100 [facility] [phone] 0 Phone: () - 01/18 CMP Sodiu m mmol/L 136.0 145.0 145 FINAL Nicole muñoz [place] [address] [phone] 0 Phone: () - 01/18 CMP Bilir ubin, total mg/dL 0.3 1.2 0.5 FINAL Nicole muñoz [facility], [address] [phone] 0 Phone: () - 01/18 CMP Total prote in g/dL 5.7 8.2 5.6 Low FINAL Nicole muñoz [facility], [facility] N [address] [id number] 0 Phone: () - 01/18 CBC w/ auto diff WBC K/uL 3.0 8.9 12.6 High FINAL Nicole muñoz [facility] - [place], [address] [facility] [phone] 0 Phone: () - 01/18 CBC w/ auto diff HGB g/dL 11.3 15.2 9.7 Low FINAL Nicole Terrazas a [facility] - [place], [address] [place] [id number] 0 Phone: () - 01/18 CBC w/ auto diff PLT K/uL 113.0 364.0 124 FINAL Nicole muñoz [facility] - [place], [address] [place] [phone] 0 Phone: () - 09/01 /2023 CBC w/ auto diff Augustus # (ANC) K/uL 1.6 6.6 10.7 High FINAL Nicole [facility] [place], [address] [place] [phone] 0 Phone: () - 01/18 CBC w/ auto diff Augustus % % 43.0 74.0 84.3 High FINAL Nicole [facility] [place], [address] [place] [phone] 0 Phone: () - 01/18 CBC w/ auto diff IG % % 0.0 0.5 4.4 High FINAL Nicole [facility] [place], [address] [place] [phone] 0 Phone: () - 01/18 CBC w/ auto diff IG # K/uL 0.0 0.03 0.56 High FINAL Nicole [facility] [place], [address] [place] [id number] 0 Phone: () - 01/18 CBC w/ auto diff LY % % 14.0 41.0 8.5 Low FINAL Nicole [facility] [place], [address] [place] [id number] 0 Phone: () - 01/18 CBC w/ auto diff MO % % 6.0 15.0 2.6 Low FINAL Nicole [facility] [place], [address] [place] [id number] 0 Phone: () - 01/18 CBC w/ auto diff EO % % 0.0 7.0 0.0 FINAL Nicole [facility] [place], [address] [place] [id number] 0 Phone: () - 01/18 CBC w/ auto diff BA % % 0.0 2.0 0.2 FINAL Nicole [facility] [place], [address] [place] [phone] 0 Phone: () - 01/18 CBC w/ auto diff LY # K/uL 0.4 3.6 1.1 FINAL Nicole muñoz [facility] - [place], [address] [place] [id number] 0 Phone: () - 01/18 CBC w/ auto diff MO # K/uL 0.2 1.3 0.3 FINAL Nicole muñoz [facility] - [place], [address] [place] [id number] 0 Phone: () - 01/18 CBC w/ auto diff EO # K/uL 0.0 0.6 0.0 FINAL Nicole muñoz [facility] - [place], [address] [place] [id number] 0 Phone: () - 01/18 CBC w/ auto diff BA # K/uL 0.0 0.2 0.0 FINAL Nicole Ya Nini muñoz [facility] - [place], [address] [place] [id number] 0 Phone: () - 01/18 CBC w/ auto diff NRBC % #/100W BC 0.0 0.2 0.5 High FINAL Nicole muñoz [facility] - [place], [address] [place] [id number] 0 Phone: () - 01/18 CBC w/ auto diff RBC M/uL 3.9 5.1 2.85 Low FINAL Nicole muñoz [facility] - [place], [address] [place] [phone] 0 Phone: () - 01/18 CBC w/ auto diff HCT % 35.0 48.0 29.8 Low FINAL Nicole Terrazas [facility] - [place], [address] [place] [id number] 0 Phone: () - 01/18 CBC w/ auto diff MCV fL 80.0 104.0 104.6 High FINAL Nicole muñoz [facility] - [place], [address] [place] [id number] 0 Phone: () - 01/18 CBC w/ auto diff MCH pg 26.0 35.0 34.0 FINAL Nicole Terrazas a [facility] - [place], [address] [place] [phone] 0 Phone: () - 01/18 CBC w/ auto diff MCHC g/dL 30.0 35.0 32.6 FINAL Nicole Terrazas [facility] - [place], [address] [place] [phone] 0 Phone: () - 01/18 CBC w/ auto diff MPV fL 9.5 13.4 9.0 Low FINAL Nicole Ya Nini a [facility] - [place], [address] [place] [phone] 0 Phone: () - 01/18 CBC w/ auto diff RDW % 11.4 16.1 19.00 High FINAL Nicole muñoz [facility] - [place], [address] [place] [id number] 0 Phone: () - 01/29 CBC w/ auto diff WBC K/uL 3.0 8.9 19.0 High FINAL Nicole muñoz [facility] - [place], [address] [place] [id number] 0 Phone: () - 01/29 CBC w/ auto diff HGB g/dL 11.3 15.2 8.8 Low FINAL Nicole Carmonaot [facility] - [place], [address] [place] [id number] 0 Phone: () - 01/29 CBC w/ auto diff PLT K/uL 113.0 364.0 59 Low FINAL Nicole Ya [facility] [place], [address] [place] [id number] 0 Phone: () - 01/29 CBC w/ auto diff Augustus # (ANC) K/uL 1.6 6.6 16.7 High FINAL Nicole Carmonaot [facility] - [place], [address] [place] [id number] 0 Phone: () - 01/29 CBC w/ auto diff Augustus % % 43.0 74.0 88.0 High FINAL Nicole Carmonaot [facility] - [place], [address] [place] [id number] 0 Phone: () - 01/29 CBC w/ auto diff IG % % 0.0 0.5 1.9 High FINAL Nicole Carmonaot [facility] - [place], [address] [place] [phone] 0 Phone: () - 01/29 CBC w/ auto diff IG # K/uL 0.0 0.03 0.36 High FINAL Nicole Carmonaot [facility] - [place], [address] [place] [id number] 0 Phone: () - 01/29 CBC w/ auto diff LY % % 14.0 41.0 5.1 Low FINAL Nicole Carmonaot a [facility] - [place], [address] [place] [phone] 0 Phone: () - 01/29 CBC w/ auto diff MO % % 6.0 15.0 4.8 Low FINAL Nicole Carmonaot a [facility] - [place], [address] [place] [id number] 0 Phone: () - 01/29 CBC w/ auto diff EO % % 0.0 7.0 0.0 FINAL Nicole Carmonaot a [facility] - [place], [address] [place] [id number] 0 Phone: () - 01/29 CBC w/ auto diff BA % % 0.0 2.0 0.2 FINAL Nicole Carmonaot a [facility] - [place], [address] [place] [id number] 0 Phone: () - 01/29 CBC w/ auto diff LY # K/uL 0.4 3.6 1.0 FINAL Nicole Ya [facility] - [place], [address] [place] [phone] 0 Phone: () - 01/29 CBC w/ auto diff MO # K/uL 0.2 1.3 0.9 FINAL Nicole Carmonaot a [facility] - [place], [address] [place] [id number] 0 Phone: () - 01/29 CBC w/ auto diff EO # K/uL 0.0 0.6 0.0 FINAL Nicole Felton [facility] - [place], [address] [place] [phone] 0 Phone: () - 01/29 CBC w/ auto diff BA # K/uL 0.0 0.2 0.0 FINAL Nicole Felton [facility] - [place], [address] [place] [id number] 0 Phone: () - 01/29 CBC w/ auto diff NRBC % #/100W BC 0.0 0.2 0.0 FINAL Nicole Ya Nini muñoz [facility] - [place], [address] [place] [phone] 0 Phone: () - 01/29 CBC w/ auto diff RBC M/uL 3.9 5.1 2.58 Low FINAL Nicole Ya [facility] [place], [address] [place] [phone] 0 Phone: () - 01/29 CBC w/ auto diff HCT % 35.0 48.0 27.0 Low FINAL Nicole Ya [facility] - [place], [address] [place] [id number] 0 Phone: () - 01/29 CBC w/ auto diff MCV fL 80.0 104.0 104.7 High FINAL Nicole Felton [facility] - [place], [address] [place] [id number] 0 Phone: () - 01/29 CBC w/ auto diff MCH pg 26.0 35.0 34.1 FINAL Nicole muñoz [facility] - [place], [address] [place] [id number] 0 Phone: () - 01/29 CBC w/ auto diff MCHC g/dL 30.0 35.0 32.6 FINAL Nicole muñoz [facility] - [place], [address] [place] [id number] 0 Phone: () - 01/29 CBC w/ auto diff MPV fL 9.5 13.4 9.3 Low FINAL Nicole muñoz [facility] - [place], [address] [place] [id number] 0 Phone: () - 01/29 CBC w/ auto diff RDW % 11.4 16.1 17.80 High FINAL Nicole muñoz [facility] - [place], [address] [facility] [address] [place] [phone] 0 Phone: () - 01/29 iSTAT Na+/K +/Cl- panel Sodiu m, iSTAT mmol/L 138.0 146.0 134 Low Reference range adjusted 0 with implement ation of I-Stat 8+ cartridge . FINAL Nicole muñoz [facility] - [place], [address] [place] [id number] 0 Phone: () - 01/29 iSTAT Na+/K +/Cl- panel Potas sium, iSTAT mmol/L 3.5 4.9 3.4 Low Reference range adjusted 0 with implement ation of I-Stat 8+ cartridge . FINAL Nicole muñoz [facility] - [place], [address] [place] [phone] 0 Phone: () - 01/29 iSTAT Na+/K +/Cl- panel Chlor rakan, iSTAT mmol/L 98.0 109.0 97 Low Reference range adjusted 0 with implement ation of I-Stat 8+ cartridge . FINAL Nicole muñoz [facility] - [place], [address] [place] [id number] 0 Phone: () - 02/05 CBC w/ auto diff BA # K/uL 0.0 0.2 0.0 FINAL Nicole muñoz [facility] - [place], [address] [place] [id number] 0 Phone: () - 02/05 CBC w/ auto diff NRBC % #/100W BC 0.0 0.2 0.1 FINAL Nicole muñoz [facility] - [place], [address] [place] [id number] 0 Phone: () - 02/05 CBC w/ auto diff RBC M/uL 3.9 5.1 2.96 Low FINAL Nicole muñoz [facility] - [place], [address] [place] [id number] 0 Phone: () - 02/05 CBC w/ auto diff HCT % 35.0 48.0 30.3 Low FINAL Nicole muñoz [facility] - [place], [address] [place] [id number] 0 Phone: () - 02/05 CBC w/ auto diff MCV fL 80.0 104.0 102.4 FINAL Nicole muñoz [facility] - [place], [address] [place] [id number] 0 Phone: () - 02/05 CBC w/ auto diff MCH pg 26.0 35.0 33.8 FINAL Nicole muñoz [facility] - [place], [address] [place] [id number] 0 Phone: () - 02/05 CBC w/ auto diff MCHC g/dL 30.0 35.0 33.0 FINAL Nicole muñzo [facility] - [place], [address] [place] [id number] 0 Phone: () - 02/05 CBC w/ auto diff MPV fL 9.5 13.4 8.5 Low FINAL Nicole Ya Mathewot a [facility] - [place], [address] [place] [id number] 0 Phone: () - 02/05 CBC w/ auto diff RDW % 11.4 16.1 16.10 FINAL Nicole Ya Nini a [facility] - [place], [address] [place] [id number] 0 Phone: () - 02/05 CBC w/ auto diff WBC K/uL 3.0 8.9 16.6 High FINAL Nicole Felton Nini a [facility] - [place], [address] [place] [id number] 0 Phone: () - 02/05 CBC w/ auto diff HGB g/dL 11.3 15.2 10.0 Low FINAL Nicole Felton Mathewdamaris a [facility] - [place], [address] [place] [id number] 0 Phone: () - 02/05 CBC w/ auto diff PLT K/uL 113.0 364.0 122 FINAL Nicole Ya Mathewdamaris muñoz [facility] - [place], [address] [place] [id number] 0 Phone: () - 02/05 CBC w/ auto diff Augustus # (ANC) K/uL 1.6 6.6 12.9 High FINAL Nicole Felton Mathewdamaris a [facility] - [place], [address] [place] [id number] 0 Phone: () - 02/05 CBC w/ auto diff Augustus % % 43.0 74.0 77.5 High FINAL Nicole Felton Mathewdamaris a [facility] - [place], [address] [place] [id number] 0 Phone: () - 02/05 CBC w/ auto diff IG % % 0.0 0.5 1.1 High FINAL Nicole Felton Mathewot a [facility] - [place], [address] [place] [id number] 0 Phone: () - 02/05 CBC w/ auto diff IG # K/uL 0.0 0.03 0.19 High FINAL Nicole Terrazas a [facility] - [place], [address] [place] [id number] 0 Phone: () - 02/05 CBC w/ auto diff LY % % 14.0 41.0 11.4 Low FINAL Nicole Terrazas a [facility] - [place], [address] [place] [id number] 0 Phone: () - 02/05 CBC w/ auto diff MO % % 6.0 15.0 9.9 FINAL Nicole Terrazas a [facility] - [place], [address] [place] [id number] 0 Phone: () - 02/05 CBC w/ auto diff EO % % 0.0 7.0 0.0 FINAL Nicole Terrazas a [facility] - [place], [address] [place] [id number] 0 Phone: () - 02/05 CBC w/ auto diff BA % % 0.0 2.0 0.1 FINAL Nicole Terrazas a [facility] - [place], [address] [place] [id number] 0 Phone: () - 02/05 CBC w/ auto diff LY # K/uL 0.4 3.6 1.9 FINAL Nicole Terrazas a [facility] - [place], [address] [place] [id number] 0 Phone: () - 02/05 CBC w/ auto diff MO # K/uL 0.2 1.3 1.6 High FINAL Nicole Terrazas a [facility] - [place], [address] [place] [id number] 0 Phone: () - 02/05 CBC w/ auto diff EO # K/uL 0.0 0.6 0.0 FINAL Nicole muñoz [facility] - [place], [address] [place] [id number] 0 Phone: () - 02/05 iSTAT Na+/K +/Cl- panel Sodiu m, iSTAT mmol/L 138.0 146.0 134 Low Reference range adjusted 0 with implement ation of I-Stat 8+ cartridge . FINAL Nicole muñoz [facility] - [place], [address] [facility] [address] [place] [id number] 0 Phone: () - 02/05 iSTAT Na+/K +/Cl- panel Potas sium, iSTAT mmol/L 3.5 4.9 3.1 Low Reference range adjusted 0 with implement ation of I-Stat 8+ cartridge . FINAL Nicole muñoz [facility] - [place], [address] [facility] [address] [place] [id number] 0 Phone: () - 02/05 iSTAT Na+/K +/Cl- panel Chlor rakan, iSTAT mmol/L 98.0 109.0 95 Low Reference range adjusted 0 with implement ation of I-Stat 8+ cartridge . FINAL Nicole muñoz [facility] - [place], [address] [facility] [address] [place] [id number] 0 Phone: () - 02/05 Magne sium, mg/dL mg/dL 1.5 2.3 1.4 Low FINAL Tiara Terrazas a [facility] - [place], [address] [place] [id number] 0 Phone: () - 02/05 iSTAT creat inine panel Creat inine , iSTAT mg/dl 0.6 1.3 0.8 FINAL Tiara Terrazas a [facility] - [place], [address] [place] [id number] 0 Phone: () - 02/05 iSTAT creat inine panel GFR estim ate ml/min /1.73m ^2 79.7 GFR is calculate d using the CKD-EPI equation. FINAL Tiara muñoz [facility] - [place], [address] [facility] [address] [place] [id number] 0 Phone: () - 02/07 Magne sium, mg/dL mg/dL 1.5 2.3 1.5 FINAL Tiara muñoz [facility] - [place], [address] [place] [id number] 0 Phone: () - 02/07 iSTAT Na+/K +/Cl- panel Sodiu m, iSTAT mmol/L 138.0 146.0 137 Low Reference range adjusted 0 with implement ation of I-Stat 8+ cartridge . FINAL Tiara muñoz [facility] - [place], [address] [facility] [address] [place] [id number] 0 Phone: () - 02/07 iSTAT Na+/K +/Cl- panel Potas sium, iSTAT mmol/L 3.5 4.9 3.2 Low Reference range adjusted 0 with implement ation of I-Stat 8+ cartridge . FINAL Tiara muñoz [facility] - [place], [address] [address] [place] [id number] 0 Phone: () - 02/07 iSTAT Na+/K +/Cl- panel Chlor rakan, iSTAT mmol/L 98.0 109.0 100 Reference range adjusted 0 with implement ation of I-Stat 8+ cartridge . FINAL Tiara muñoz [facility] - [place], [address] [place] [id number] 0 Phone: () - 02/07 iSTAT creat inine panel Creat inine , iSTAT mg/dl 0.6 1.3 1.0 FINAL Tiara muñoz [facility] - [place], [address] [facility] [address] [place] [id number] 0 Phone: () - 02/07 iSTAT creat inine panel GFR estim ate ml/min /1.73m ^2 61.0 GFR is calculate d using the CKD-EPI equation. FINAL Tiara [place] [facility] [place], [address] [facility] [place] [phone] 0 Phone: () - 02/08 Clost ridiu [...] been establish ed.This assay was performed by [employer] (R) PCR.The performan ce character istics of this assay havebeen determine d by [employer]. Performan cecharact eristics refer to the analytica l performan ceof the test.For additiona l informati on, please refer tohttp:// education .Aquantia/faq/F AQ136(Thi s link is being provided forinform ational/e ducationa l purposes only.)[CA ] FINAL Tiara NEGRETE, [facility] [address] [facility] [id number] 4 02/08 Clost ridiu m diffi cile toxin PCR panel CLOST RIDIU M DIFFI CILE TOXIN /GDH W/REF L TO PCR SEE NOTE CLOSTRIDI UM DIFFICILE TOXIN/GDH W/REFL TO PCRMicro Number: [id number] est Status: FinalSpec imen Source: StoolSpec imen Quality: AdequateG DH Antigen: DetectedT oxin A and B: Not DetectedC OMMENT: Indetermi vikram. Specimen forwarded fortoxige cesar C. difficile PCR testing.F or additiona l informati on, please refer tohttp:// education .Aquantia/faq/F AQ136(Thi s link is being provided forinform ational/e ducationa l purposes only.)[CB ] FINAL Tiara Coronado QUEST, [facility] [address] [facility] [id number] 4 02/08 CMP Album in g/dL 3.2 5.2 3.2 [facility]AL [facility] [address] [facility] [address] [id number] 0 Phone: () - 02/08 CMP Alkal ine phosp hatas e U/L 46.0 116.0 85 FINAL [place] [address] [id number] 0 Phone: () - 02/08 CMP ALT/S GPT U/L 7.0 40.0 24 FINAL [place] [address] [address] [facility] [address] [id number] 0 Phone: () - 02/08 CMP AST/S GOT U/L 13.0 40.0 16 FINAL [place] [address] [address] [facility] [address] [id number] 0 Phone: () - 02/08 CMP BUN mg/dL 9.0 23.0 8.0 Low FINAL [place] [address] [id number] 0 Phone: () - 02/08 CMP Calci um mg/dL 8.7 10.4 8.3 Low FINAL [place] [address] [address] [facility] [address] [id number] 0 Phone: () - 02/08 CMP Chlor rakan mmol/L 96.0 114.0 111 FINAL [place] [address] [address] [facility] [address] [id number] 0 Phone: () - 02/08 CMP CO2 [...] 96 hour stability window. FINAL Nicole Terrazas [facility], [facility] N [address] [id number] 0 Phone: () - 02/08 CMP Creat inine mg/dL 0.5 1.2 0.86 FINAL Nicole Terrazas [address] [id number] 0 Phone: () - 02/08 CMP GFR estim ate ml/min /1.73m ^2 73.0 GFR is calculate d using the CKD-EPI equation. FINAL Nciole Terrazas [address] [id number] 0 Phone: () - 02/08 CMP Gluco se mg/dL 73.0 126.0 129 High FINAL Nicole Terrazas [address] [id number] 0 Phone: () - 02/08 CMP Potas sium mmol/L 3.5 5.1 3.6 FINAL Nicole Terrazas [address] [id number] 0 Phone: () - 02/08 CMP Sodiu m mmol/L 136.0 145.0 144 FINAL Nicole Terrazas [address] [id number] 0 Phone: () - 02/08 CMP Bilir ubin, total mg/dL 0.3 1.2 0.3 FINAL Nicole [address] [id number] 0 Phone: () - 02/08 CMP Total prote in g/dL 5.7 8.2 4.8 Low FINAL Nicole Terrazas [address] [id number] 0 Phone: () - 02/08 iSTAT creat inine panel Creat inine , iSTAT mg/dl 0.6 1.3 0.8 FINAL Nicole muñoz [facility] - [place], [address] [place] [id number] 0 Phone: () - 02/08 iSTAT creat inine panel GFR estim ate ml/min /1.73m ^2 79.7 GFR is calculate d using the CKD-EPI equation. FINAL Nicole muñoz [facility] - [place], [address] [place] [id number] 0 Phone: () - 02/08 CBC w/ auto diff WBC K/uL 3.0 8.9 17.2 High FINAL Nicole muñoz [facility] - [place], [address] [place] [id number] 0 Phone: () - 02/08 CBC w/ auto diff HGB g/dL 11.3 15.2 7.9 Critica l hematol ogy result obtaine d Criti todd Low FINAL Nicole muñoz [facility] - [place], [address] [place] [id number] 0 Phone: () - 02/08 CBC w/ auto diff PLT K/uL 113.0 364.0 123 FINAL Nicole muñoz [facility] - [place], [address] [place] [id number] 0 Phone: () - 02/08 CBC w/ auto diff Augustus # (ANC) K/uL 1.6 6.6 13.8 High FINAL Nicole muñoz [facility] - [place], [address] [place] [id number] 0 Phone: () - 02/08 CBC w/ auto diff Augustus % % 43.0 74.0 80.0 High FINAL Nicole muñoz [facility] - [place], [address] [place] [id number] 0 Phone: () - 02/08 CBC w/ auto diff IG % % 0.0 0.5 2.2 High FINAL Nicole Carmonaot a [facility] - [place], [address] [place] [id number] 0 Phone: () - 02/08 CBC w/ auto diff IG # K/uL 0.0 0.03 0.38 High FINAL Nicole Carmonaot a [facility] - [place], [address] [place] [id number] 0 Phone: () - 02/08 CBC w/ auto diff LY % % 14.0 41.0 9.3 Low FINAL Nicole Carmonaot a [facility] - [place], [address] [place] [id number] 0 Phone: () - 02/08 CBC w/ auto diff MO % % 6.0 15.0 8.4 FINAL Nicole Carmonaot a [facility] - [place], [address] [place] [id number] 0 Phone: () - 02/08 CBC w/ auto diff EO % % 0.0 7.0 0.0 FINAL Nicole Carmonaot a [facility] - [place], [address] [place] [id number] 0 Phone: () - 02/08 CBC w/ auto diff BA % % 0.0 2.0 0.1 FINAL Nicole Carmonaot a [facility] - [place], [address] [place] [id number] 0 Phone: () - 02/08 CBC w/ auto diff LY # K/uL 0.4 3.6 1.6 FINAL Nicole Carmonaot a [facility] - [place], [address] [place] [id number] 0 Phone: () - 02/08 CBC w/ auto diff MO # K/uL 0.2 1.3 1.5 High FINAL Nicole Carmonaot a [facility] - [place], [address] [place] [id number] 0 Phone: () - 02/08 CBC w/ auto diff EO # K/uL 0.0 0.6 0.0 FINAL Nicole muñoz [facility] - [place], [address] [place] [id number] 0 Phone: () - 02/08 CBC w/ auto diff BA # K/uL 0.0 0.2 0.0 FINAL Nicole muñoz [facility] - [place], [address] [place] [id number] 0 Phone: () - 02/08 CBC w/ auto diff NRBC % #/100W BC 0.0 0.2 0.3 High FINAL Nicole muñoz [facility] - [place], [address] [place] [id number] 0 Phone: () - 02/08 CBC w/ auto diff RBC M/uL 3.9 5.1 2.33 Low FINAL Nicole muñoz [facility] - [place], [address] [place] [id number] 0 Phone: () - 02/08 CBC w/ auto diff HCT % 35.0 48.0 24.6 Low FINAL Nicole muñoz [facility] - [place], [address] [place] [id number] 0 Phone: () - 02/08 CBC w/ auto diff MCV fL 80.0 104.0 105.6 High FINAL Nicole muñoz [facility] - [place], [address] [place] [id number] 0 Phone: () - 02/08 CBC w/ auto diff MCH pg 26.0 35.0 33.9 FINAL Nicole muñoz [facility] - [place], [address] [place] [id number] 0 Phone: () - 02/08 CBC w/ auto diff MCHC g/dL 30.0 35.0 32.1 FINAL Nicole muñoz [facility] - [place], [address] [place] [id number] 0 Phone: () - 02/08 CBC w/ auto diff MPV fL 9.5 13.4 9.1 Low FINAL Nicole Terrazas a [facility] - [place], [address] [place] [id number] 0 Phone: () - 02/08 CBC w/ auto diff RDW % 11.4 16.1 16.70 High FINAL Nicole muñoz [facility] - [place], [address] [place] [id number] 0 Phone: () - 02/12 CBC w/ auto diff WBC K/uL 3.0 8.9 9.0 High FINAL Nicole Ya Nini muñoz On[facility] - [place], [address] [place] [id number] 0 Phone: () - 02/12 CBC w/ auto diff HGB g/dL 11.3 15.2 8.7 Low FINAL Nicole Felton Nini muñoz [facility] - [place], [address] [place] [id number] 0 Phone: () - 02/12 CBC w/ auto diff PLT K/uL 113.0 364.0 154 FINAL Nicole Felton Nini muñoz [facility] - [place], [address] [place] [id number] 0 Phone: () - 02/12 CBC w/ auto diff Augustus # (ANC) K/uL 1.6 6.6 6.5 FINAL Nicole Ya Nini muñoz [facility] - [place], [address] [place] [id number] 0 Phone: () - 02/12 CBC w/ auto diff Augustus % % 43.0 74.0 72.4 FINAL Nicole muñoz [facility] - [place], [address] [place] [id number] 0 Phone: () - 02/12 CBC w/ auto diff IG % % 0.0 0.5 0.9 High FINAL Nicole Ya Nini a [facility] - [place], [address] [place] [id number] 0 Phone: () - 02/12 CBC w/ auto diff IG # K/uL 0.0 0.03 0.08 High FINAL Nicole Carmonaot a [facility] - [place], [address] [place] [id number] 0 Phone: () - 02/12 CBC w/ auto diff LY % % 14.0 41.0 17.0 FINAL Nicole Carmonaot a [facility] - [place], [address] [place] [id number] 0 Phone: () - 02/12 CBC w/ auto diff MO % % 6.0 15.0 9.4 FINAL Nicole Felton Mathewot a [facility] - [place], [address] [place] [id number] 0 Phone: () - 02/12 CBC w/ auto diff EO % % 0.0 7.0 0.3 FINAL Nicole Ya Nini a [facility] - [place], [address] [place] [id number] 0 Phone: () - 02/12 CBC w/ auto diff BA % % 0.0 2.0 0.0 FINAL Nicole Ya Mathew a [facility] - [place], [address] [place] [id number] 0 Phone: () - 02/12 CBC w/ auto diff LY # K/uL 0.4 3.6 1.5 FINAL Nicole Carmonaot a [facility] - [place], [address] [place] [id number] 0 Phone: () - 02/12 CBC w/ auto diff MO # K/uL 0.2 1.3 0.8 FINAL Nicole Ya Mathewot a [facility] - [place], [address] [place] [id number] 0 Phone: () - 02/12 CBC w/ auto diff EO # K/uL 0.0 0.6 0.0 FINAL Nicole Terrazas a [facility] - [place], [address] [place] [id number] 0 Phone: () - 02/12 CBC w/ auto diff BA # K/uL 0.0 0.2 0.0 FINAL Nicole Terrazas a [facility] - [place], [address] [place] [id number] 0 Phone: () - 02/12 CBC w/ auto diff NRBC % #/100W BC 0.0 0.2 0.0 FINAL Nicole Terrazas a [facility] - [place], [address] [place] [id number] 0 Phone: () - 02/12 CBC w/ auto diff RBC M/uL 3.9 5.1 2.54 Low FINAL Nicole muñoz [facility] - [place], [address] [place] [id number] 0 Phone: () - 02/12 CBC w/ auto diff HCT % 35.0 48.0 27.5 Low FINAL Nicole muñoz [facility] - [place], [address] [place] [id number] 0 Phone: () - 02/12 CBC w/ auto diff MCV fL 80.0 104.0 108.3 High FINAL Nicole muñoz [facility] - [place], [address] [place] [id number] 0 Phone: () - 02/12 CBC w/ auto diff MCH pg 26.0 35.0 34.3 FINAL Nicole Terrazas a [facility] - [place], [address] [place] [id number] 0 Phone: () - 02/12 CBC w/ auto diff MCHC g/dL 30.0 35.0 31.6 FINAL Nicole Carmonaot a [facility] - [place], [address] [place] [id number] 0 Phone: () - 02/12 CBC w/ auto diff MPV fL 9.5 13.4 8.3 Low FINAL Nicole muñoz [facility] - [place], [address] [place] [id number] 0 Phone: () - 02/12 CBC w/ auto diff RDW % 11.4 16.1 17.40 High FINAL Nicole muñoz [facility] - [place], [address] [place] [id number] 0 Phone: () - 02/12 Magne sium, mg/dL mg/dL 1.5 2.3 1.5 FINAL Nicole muñoz [facility] - [place], [address] [place] [id number] 0 Phone: () - 02/12 iSTAT Na+/K +/Cl- panel Sodiu m, iSTAT mmol/L 138.0 146.0 139 Reference range adjusted 0 with implement ation of I-Stat 8+ cartridge . FINAL Nicole muñoz [facility] - [place], [address] [facility] [address] [place] [id number] 0 Phone: () - 02/12 iSTAT Na+/K +/Cl- panel Potas sium, iSTAT mmol/L 3.5 4.9 3.8 Reference range adjusted 0 with implement ation of I-Stat 8+ cartridge . FINAL Nicole muñoz [facility] - [place], [address] [place] [id number] 0 Phone: () - 02/12 iSTAT Na+/K +/Cl- panel Chlor rakan, iSTAT mmol/L 98.0 109.0 100 Reference range adjusted 0 with implement ation of I-Stat 8+ cartridge . FINAL Nicole muñoz [facility] - [place], [address] [place] [id number] 0 Phone: () - 03/01 CMP Album in g/dL 3.2 5.2 3.4 FINAL Nicole muñoz [facility], [address] [facility] 100 [facility] [id number] 0 Phone: () - 03/01 CMP Alkal ine phosp hatas e U/L 46.0 116.0 89 FINAL Nicole muñoz [facility], [address] [facility] 100 [facility] [id number] 0 Phone: () - 03/01 CMP ALT/S GPT U/L 7.0 40.0 15 FINAL Nicole muñoz [place] [address] [address] [facility] 100 [facility] [id number] 0 Phone: () - 03/01 CMP AST/S GOT U/L 13.0 40.0 18 FINAL Nicole muñoz [place] [address] [id number] 0 Phone: () - 03/01 CMP BUN mg/dL 9.0 23.0 9.0 FINAL Nicloe muñoz [place] [address] [id number] 0 Phone: () - 03/01 CMP Calci um mg/dL 8.7 10.4 8.5 Low FINAL Nicole muñoz [place] [address] [id number] 0 Phone: () - 03/01 CMP Chlor rakan mmol/L 96.0 114.0 113 FINAL Nicole muñoz [place] [address] [id number] 0 Phone: () - 03/01 CMP CO2 [...] 96 hour stability window. FINAL Nicole muñoz [facility], [facility] [address] [facility] 100 [facility] [id number] 0 Phone: () - 03/01 CMP Creat inine mg/dL 0.5 1.2 0.98 FINAL Nicole muñoz [facility], [address] [facility] [address] [place] [address] [phone] 0 Phone: () - 03/01 CMP GFR estim ate ml/min /1.73m ^2 62.4 GFR is calculate d using the CKD-EPI equation. FINAL Nicole muñoz [facility], [address] [id number] 0 Phone: () - 03/01 CMP Gluco se mg/dL 73.0 126.0 136 High FINAL Nicole muñoz [facility] [address] [id number] 0 Phone: () - 03/01 CMP Potas sium mmol/L 3.5 5.1 4.3 FINAL Nicole muñoz [facility] [address] [id number] 0 Phone: () - 03/01 CMP Sodiu m mmol/L 136.0 145.0 147 High FINAL Nicole muñoz [facility], [address] [id number] 0 Phone: () - 03/01 CMP Bilir ubin, total mg/dL 0.3 1.2 0.5 FINAL Nicole muñoz [facility] [address] [id number] 0 Phone: () - 03/01 CMP Total prote in g/dL 5.7 8.2 5.2 Low FINAL Nicole muñoz [place] [address] [address] [facility] [address] [place] [address] [id number] 0 Phone: () - 03/01 CBC w/ auto diff WBC K/uL 3.0 8.9 4.5 FINAL Nicole muñoz [facility] - [place], [address] [place] [id number] 0 Phone: () - 03/01 CBC w/ auto diff HGB g/dL 11.3 15.2 8.8 Low FINAL Nicole muñoz [facility] - [place], [address] [place] [id number] 0 Phone: () - 03/01 CBC w/ auto diff PLT K/uL 113.0 364.0 154 FINAL Nicole Carmonaot a [facility] - [place], [address] [place] [id number] 0 Phone: () - 03/01 CBC w/ auto diff Augustus # (ANC) K/uL 1.6 6.6 2.2 FINAL Nicole Carmonaot a [facility] - [place], [address] [place] [id number] 0 Phone: () - 03/01 CBC w/ auto diff Augustus % % 43.0 74.0 49.9 FINAL Nicole Ya Nini muñoz [facility] - [place], [address] [place] [id number] 0 Phone: () - 03/01 CBC w/ auto diff IG % % 0.0 0.5 0.7 High FINAL Nicole Ya Mathewot toni [facility] - [place], [address] [place] [id number] 0 Phone: () - 03/01 CBC w/ auto diff IG # K/uL 0.0 0.03 0.03 FINAL Nicole Felton Nini muñoz [facility] - [place], [address] [place] [id number] 0 Phone: () - 03/01 CBC w/ auto diff LY % % 14.0 41.0 32.0 FINAL Nicole Ya Nini muñoz [facility] - [place], [address] [place] [id number] Phone: () - 03/01 CBC w/ auto diff MO % % 6.0 15.0 14.5 FINAL Nicole Carmonaot a [facility] - [place], [address] [place] [id number] 0 Phone: () - 03/01 CBC w/ auto diff EO % % 0.0 7.0 2.5 FINAL Nicole Felton Mathewot a [facility] - [place], [address] [place] [id number] 0 Phone: () - 03/01 CBC w/ auto diff BA % % 0.0 2.0 0.4 FINAL Nicole Felton Mathewdamaris a [facility] - [place], [address] [place] [id number] 0 Phone: () - 03/01 CBC w/ auto diff LY # K/uL 0.4 3.6 1.4 FINAL Nciole eFlton Mathewdamaris a [facility] - [place], [address] [place] [id number] 0 Phone: () - 03/01 CBC w/ auto diff MO # K/uL 0.2 1.3 0.7 FINAL Nicole Ya Mathewdamaris muñoz On[facility] - [place], [address] [place] [id number] 0 Phone: () - 03/01 CBC w/ auto diff EO # K/uL 0.0 0.6 0.1 FINAL Nicole Ya Mathewdamaris muñoz On[facility] - [place], [address] [place] [id number] 0 Phone: () - 03/01 CBC w/ auto diff BA # K/uL 0.0 0.2 0.0 FINAL Nicole Ya Mathewdamaris muñoz [facility] - [place], [address] [place] [id number] 0 Phone: () - 03/01 CBC w/ auto diff NRBC % #/100W BC 0.0 0.2 0.0 FINAL Nicole Felton Mathewdamaris muñoz [facility] - [place], [address] [place] [id number] 0 Phone: () - 03/01 CBC w/ auto diff RBC M/uL 3.9 5.1 2.57 Low FINAL Nicole Ya Mathewdamaris a [facility] - [place], [address] [place] [id number] 0 Phone: () - 03/01 CBC w/ auto diff HCT % 35.0 48.0 28.5 Low FINAL Nicole Terrazas a [facility] - [place], [address] [place] [id number] 0 Phone: () - 03/01 CBC w/ auto diff MCV fL 80.0 104.0 110.9 High FINAL Nicole muñoz [facility] - [place], [address] [place] [id number] 0 Phone: () - 03/01 CBC w/ auto diff MCH pg 26.0 35.0 34.2 FINAL Nicole muñoz [facility] - [place], [address] [place] [id number] 0 Phone: () - 03/01 CBC w/ auto diff MCHC g/dL 30.0 35.0 30.9 FINAL Nicole muñoz [facility] - [place], [address] [place] [id number] 0 Phone: () - 03/01 CBC w/ auto diff MPV fL 9.5 13.4 8.2 Low FINAL Nicole muñoz [facility] - [place], [address] [place] [id number] 0 Phone: () - 03/01 CBC w/ auto diff RDW % 11.4 16.1 15.70 FINAL Nicole muñoz [facility] - [place], [address] [place] [id number] 0 Phone: () - 04/12 CMP Album in g/dL 3.2 5.2 3.8 FINAL Nicole muñoz [facility] - [place], [address] [place] [id number] 0 Phone: () - 04/12 CMP Alkal ine phosp hatas e U/L 46.0 116.0 90 FINAL Nicole Terrazas a [facility] - [place], [address] [place] [id number] 0 Phone: () - 04/12 CMP ALT/S GPT U/L 7.0 40.0 17 FINAL Nicole Terrazas a [facility] - [place], [address] [facility] [id number] 0 Phone: () - 04/12 CMP AST/S GOT U/L 13.0 40.0 18 FINAL Nicole muñoz [place] [address] [address] [facility] 100 [facility] [id number] 0 Phone: () - 04/12 CMP BUN mg/dL 9.0 23.0 14.0 FINAL Nicole muñoz [place] [address] [id number] 0 Phone: () - 04/12 CMP Calci um mg/dL 8.7 10.4 9.1 FINAL Nicole muñoz [place] [address] [id number] 0 Phone: () - 04/12 CMP Chlor rakan mmol/L 96.0 114.0 110 FINAL Nicole Carmona toni [place] [address] [id number] 0 Phone: () - 04/12 CMP CO2 [...] 96 hour stability window. FINAL Nicole muñoz [place] [address] [id number] 0 Phone: () - 04/12 CMP Creat inine mg/dL 0.5 1.2 0.86 FINAL Nicole muñoz [place] [address] [id number] 0 Phone: () - 04/12 CMP GFR estim ate ml/min /1.73m ^2 73.0 GFR is calculate d using the CKD-EPI equation. FINAL Nicole muñoz [place] [address] [id number] 0 Phone: () - 04/12 CMP Gluco se mg/dL 73.0 126.0 85 FINAL Nicole muñoz Oncology [facility], [address] [facility] [id number] 0 Phone: () - 04/12 CMP Potas sium mmol/L 3.5 5.1 3.8 FINAL Nicole muñoz [facility], [address] [facility] [id number] 0 Phone: () - 04/12 CMP Sodiu m mmol/L 136.0 145.0 146 High FINAL Nicole muñoz [facility], [address] [facility] [id number] 0 Phone: () - 04/12 CMP Bilir ubin, total mg/dL 0.3 1.2 0.3 FINAL Nicole muñoz [facility], [address] [facility] [id number] 0 Phone: () - 04/12 CMP Total prote in g/dL 5.7 8.2 5.6 Low FINAL Nicole muñoz [facility], [address] [facility] [id number] 0 Phone: () - 04/12 CBC w/ auto diff WBC K/uL 3.0 8.9 5.3 FINAL Nicole muñoz Oncology - [place], [address] [place] [address] [address] [facility] [place] [id number] 0 Phone: () - 04/12 CBC w/ auto diff HGB g/dL 11.3 15.2 9.4 Low FINAL Nicole muñoz On[facility] - [place], [address] [facility] [address] [place] [id number] 0 Phone: () - 04/12 CBC w/ auto diff PLT K/uL 113.0 364.0 167 FINAL Nicole muñoz On[facility] - [place], [address] [place] [address] d [address] [facility] [place] [id number] 0 Phone: () - 04/12 CBC w/ auto diff Augustus # (ANC) K/uL 1.6 6.6 3.0 FINAL Nicole muñoz On[facility] - [place], [address] [place] [id number] 0 Phone: () - 04/12 CBC w/ auto diff Augustus % % 43.0 74.0 57.5 FINAL Nicole Ya Mathewot a [facility] - [place], [address] [place] [id number] 0 Phone: () - 04/12 CBC w/ auto diff IG % % 0.0 0.5 0.4 FINAL Nicole Ya Mathewot [facility] - [place], [address] [place] [id number] 0 Phone: () - 04/12 CBC w/ auto diff IG # K/uL 0.0 0.03 0.02 FINAL Nicole Ya Mathewdamaris a [facility] - [place], [address] [place] [id number] 0 Phone: () - 04/12 CBC w/ auto diff LY % % 14.0 41.0 28.6 FINAL Nicole Ya Mathewdamaris muñoz Oncology - [place], [address] [place] [id number] 0 Phone: () - 04/12 CBC w/ auto diff MO % % 6.0 15.0 11.6 FINAL Nicole Ya Mathewot [facility] - [place], [address] [place] [id number] 0 Phone: () - 04/12 CBC w/ auto diff EO % % 0.0 7.0 1.5 FINAL Nicole Ya Mathewdamaris muñoz Oncology - [place], [address] [place] [id number] 0 Phone: () - 04/12 CBC w/ auto diff BA % % 0.0 2.0 0.4 FINAL Nicole Ya Mathewdamaris a On[facility] - [place], [address] [place] [id number] 0 Phone: () - 04/12 CBC w/ auto diff LY # K/uL 0.4 3.6 1.5 FINAL Nicole Ya Mathewdamaris a [facility] - [place], [address] [place] [id number] 0 Phone: () - 04/12 CBC w/ auto diff MO # K/uL 0.2 1.3 0.6 FINAL Nicole Carmonaot a [facility] - [place], [address] [place] [id number] 0 Phone: () - 04/12 CBC w/ auto diff EO # K/uL 0.0 0.6 0.1 FINAL Nicole Terrazas a [facility] - [place], [address] [place] [id number] 0 Phone: () - 04/12 CBC w/ auto diff BA # K/uL 0.0 0.2 0.0 FINAL Nicole Carmonaot a [facility] - [place], [address] [place] [id number] 0 Phone: () - 04/12 CBC w/ auto diff NRBC % #/100W BC 0.0 0.2 0.0 FINAL Nicole muñoz On[facility] - [place], [address] [place] [id number] 0 Phone: () - 04/12 CBC w/ auto diff RBC M/uL 3.9 5.1 2.94 Low FINAL Nicole muñoz On[facility] - [place], [address] [place] [id number] 0 Phone: () - 04/12 CBC w/ auto diff HCT % 35.0 48.0 29.6 Low FINAL Nicole Terrazas a [facility] - [place], [address] [place] [id number] 0 Phone: () - 04/12 CBC w/ auto diff MCV fL 80.0 104.0 100.7 FINAL Nicole Carmonaot a [facility] - [place], [address] [place] [id number] 0 Phone: () - 04/12 CBC w/ auto diff MCH pg 26.0 35.0 32.0 FINAL Nicole Carmonaot a [facility] - [place], [address] [place] [id number] 0 Phone: () - 04/12 CBC w/ auto diff MCHC g/dL 30.0 35.0 31.8 FINAL Nicole Carmonaot a [facility] - [place], [address] [place] [id number] 0 Phone: () - 04/12 CBC w/ auto diff MPV fL 9.5 13.4 9.5 FINAL Nicole Carmonaot a [facility] - [place], [address] [place] [id number] 0 Phone: () - 04/12 CBC w/ auto diff RDW % 11.4 16.1 12.30 FINAL Nicole Ya Mathewot a [facility] - [place], [address] [place] [id number] 0 Phone: () - 04/12 PRIOR RESUL T Not Given FINAL Nicole Felton [place], [facility] [address] [place] [id number] 4 04/12 SOURC E: Periphe ral Blood FINAL Nicole Ya [place] [employer], [facility] [address] [place] [id number] 4 04/12 BCR ABL1/ ABL1 % % 0.000 FINAL Nicole Ya [place], [facility] [address] [place] [id number] 4 04/12 BCR ABL1/ ABL1 % (IS) % 0.000 FINAL Nicole Ya Deal [place], [facility] [address] [place] [id number] 4 04/12 INTER PRETA TION see note [...] additiona l informati on, please refer [email or web address].net .Aquantia/faq/F AQ72(This link is being provided forinform ational/e ducationa l purposes only.)Ass ay sensitivi ty is at least 4.5-logs below baselineB CR-ABL1 transcrip t levels but is dependent onquantit y and quality of RNA used for testing and thecellul arity of the sample.Th is test was developed and its analytica lperforma nce character istics have been determine dby [facility] [place], [place].It has not been cleared or approved by the FDA. Thisassay has been validated pursuant to the CLIAregul ations and is used for clinical purposes. Alejandro Ya, Ph.D, HCLD (ABB)Scie ntific Director, Molecular Oncology FINAL Nicole [employer], [facility] [address] [place] [id number] 4 04/12 P190 BCR ABL1 Not Detecte d FINAL Nicole [employer], [facility] [address] [place] [id number] 4 04/12 P210 BCR ABL1 Not Detecte d FINAL Nicole [employer], [facility] [address] [place] [id number] 4 06/04 CBC w/ auto diff WBC K/uL 3.0 8.9 6.2 FINAL Nicole Carmonaot a [facility] - [place], [address] [place] [id number] 0 Phone: () - 06/04 CBC w/ auto diff HGB g/dL 11.3 15.2 12.8 FINAL Nicole Carmonaot a [facility] - [place], [address] [place] [id number] 0 Phone: () - 06/04 CBC w/ auto diff PLT K/uL 113.0 364.0 177 FINAL Nicole Carmonaot a [facility] - [place], [address] [place] [id number] 0 Phone: () - 06/04 CBC w/ auto diff Augustus # (ANC) K/uL 1.6 6.6 4.0 FINAL Nicole Carmonaot a [facility] - [place], [address] [place] [id number] 0 Phone: () - 06/04 CBC w/ auto diff Augustus % % 43.0 74.0 63.9 FINAL Nicole Carmonaot a [facility] - [place], [address] [place] [id number] 0 Phone: () - 06/04 CBC w/ auto diff IG % % 0.0 0.5 0.2 FINAL Nicole Carmonaot a [facility] - [place], [address] [place] [id number] 0 Phone: () - 06/04 CBC w/ auto diff IG # K/uL 0.0 0.03 0.01 FINAL Nicole Carmonaot a [facility] - [place], [address] [place] [id number] 0 Phone: () - 06/04 CBC w/ auto diff LY % % 14.0 41.0 27.5 FINAL Nicole Carmonaot a [facility] - [place], [address] [place] [id number] 0 Phone: () - 06/04 CBC w/ auto diff MO % % 6.0 15.0 7.9 FINAL Nicole Carmonaot a [facility] - [place], [address] [place] [id number] 0 Phone: () - 06/04 CBC w/ auto diff EO % % 0.0 7.0 0.2 FINAL Nicole Carmonaot a [facility] - [place], [address] [place] [id number] 0 Phone: () - 06/04 CBC w/ auto diff BA % % 0.0 2.0 0.3 FINAL Nicole Carmonaot a [facility] - [place], [address] [place] [id number] 0 Phone: () - 06/04 CBC w/ auto diff LY # K/uL 0.4 3.6 1.7 FINAL Nicole Carmonaot a [facility] - [place], [address] [place] [id number] 0 Phone: () - 06/04 CBC w/ auto diff MO # K/uL 0.2 1.3 0.5 FINAL Nicole Ya Mathewot a [facility] - [place], [address] [place] [id number] 0 Phone: () - 06/04 CBC w/ auto diff EO # K/uL 0.0 0.6 0.0 FINAL Nicole Ya Mathewot a [facility] - [place], [address] [place] [id number] 0 Phone: () - 06/04 CBC w/ auto diff BA # K/uL 0.0 0.2 0.0 FINAL Nicole Carmonaot a [facility] - [place], [address] [place] [id number] 0 Phone: () - 06/04 CBC w/ auto diff NRBC % #/100W BC 0.0 0.2 0.0 FINAL Nicole Carmonaot a [facility] - [place], [address] [place] [id number] 0 Phone: () - 06/04 CBC w/ auto diff RBC M/uL 3.9 5.1 4.27 FINAL Nicole Ya Mathewot a [facility] - [place], [address] [place] [id number] 0 Phone: () - 06/04 CBC w/ auto diff HCT % 35.0 48.0 39.5 FINAL Nicole Ya Nini muñoz Oncology - [place], [address] [place] [id number] 0 Phone: () - 06/04 CBC w/ auto diff MCV fL 80.0 104.0 92.5 FINAL Nicole Ya Nini muñoz Oncology - [place], [address] [place] [id number] 0 Phone: () - 06/04 CBC w/ auto diff MCH pg 26.0 35.0 30.0 FINAL Nicole Ya Nini muñoz Oncology - [place], [address] [place] [id number] 0 Phone: () - 06/04 CBC w/ auto diff MCHC g/dL 30.0 35.0 32.4 FINAL Nicole Ya Mathewdamaris muñoz Oncology - [place], [address] [place] [id number] 0 Phone: () - 06/04 CBC w/ auto diff MPV fL 9.5 13.4 9.3 Low FINAL Nicole Ya Mathewdamaris muñoz Oncology - [place], [address] [place] [id number] 0 Phone: () - 06/04 CBC w/ auto diff RDW % 11.4 16.1 12.70 FINAL Nicole muñoz Oncology - [place], [address] [place] [id number] 0 Phone: () - 06/04 iSTAT K+ panel Potas sium, iSTAT mmol/L 3.5 4.9 3.8 Reference range adjusted 0 with implement ation of I-Stat 8+ cartridge . FINAL Nicole muñoz Oncology - [place], [address] [place] [id number] 0 Phone: () - 07/05 CMP Album in g/dL 3.2 5.2 4.4 [facility]AL [facility] [address] [facility] [facility] 100 [facility] [id number] 0 Phone: () - 07/05 CMP Alkal ine phosp hatas e U/L 46.0 116.0 107 FINAL Nicole Najera [facility], [address] [facility] [facility] [facility] 100 [facility] [id number] 0 Phone: () - 07/05 CMP ALT/S GPT U/L 7.0 40.0 26 FINAL Nicole Najera [facility] [address] [facility] [facility] [facility] 100 [facility] [id number] 0 Phone: () - 07/05 CMP AST/S GOT U/L 13.0 40.0 23 FINAL Nicole Najera [facility], [address] [facility] [facility] [facility] 100 [facility] [id number] 0 Phone: () - 07/05 CMP BUN mg/dL 9.0 23.0 15.0 [facility]AL [facility] [address] [id number] 0 Phone: () - 07/05 CMP Calci um mg/dL 8.7 10.4 10.4 FINAL Nicole Najera [facility] [address] [id number] 0 Phone: () - 07/05 CMP Chlor rakan mmol/L 96.0 114.0 109 FINAL Nicole Najera [facility], [address] [id number] 0 Phone: () - 07/05 CMP CO2 [...] the 96 hour stability window. FINAL Nicole Najera [facility], [address] [id number] 0 Phone: () - 07/05 CMP Creat inine mg/dL 0.5 1.2 1.06 FINAL Nicoledarius Najera [facility], [address] [facility] [id number] 0 Phone: () - 07/05 CMP GFR estim ate ml/min /1.73m ^2 56.7 Low GFR is calculate d using the CKD-EPI equation. FINAL Nicoledarius Najera [facility], [address] [facility] [id number] 0 Phone: () - 07/05 CMP Gluco se mg/dL 73.0 126.0 97 FINAL Nicole Ya * [facility], [address] [facility] [id number] 0 Phone: () - 07/05 CMP Potas sium mmol/L 3.5 5.1 4.4 FINAL [facility], [address] [place] [address] [id number] 0 Phone: () - 07/05 CMP Sodiu m mmol/L 136.0 145.0 143 FINAL [facility], [address] [facility] [id number] 0 Phone: () - 07/05 CMP Bilir ubin, total mg/dL 0.3 1.2 0.5 FINAL [facility]ius [facility], [address] [place] [id number] 0 Phone: () - 07/05 CMP Total prote in g/dL 5.7 8.2 6.4 FINAL Nicoledarius Ya * [facility], [address] [place] [address] [id number] 0 Phone: () - 07/05 CBC w/ auto diff WBC K/uL 3.0 8.9 3.3 FINAL Nicole Ya Nini muñoz [facility] - [place] , [address] [facility] [id number] 0 Phone: () - 07/05 CBC w/ auto diff HGB g/dL 11.3 15.2 11.9 FINAL Nicole Ya Nini [facility] - [place], [address] [place] [id number] 0 Phone: () - 07/05 CBC w/ auto diff PLT K/uL 113.0 364.0 163 FINAL Nicole Ya Nini a [facility] - [place], [address] [place] [id number] 0 Phone: () - 07/05 CBC w/ auto diff Augustus # (ANC) K/uL 1.6 6.6 2.0 FINAL Nciole Ya Nini a [facility] - [place], [address] [place] [id number] 0 Phone: () - 07/05 CBC w/ auto diff Augustus % % 43.0 74.0 58.6 FINAL Nicole Felton Mathewdamaris a [facility] - [place], [address] [place] [id number] 0 Phone: () - 07/05 CBC w/ auto diff IG % % 0.0 0.5 0.3 FINAL Nicole Felton Mathewdamaris a [facility] - [place], [address] [place] [id number] 0 Phone: () - 07/05 CBC w/ auto diff IG # K/uL 0.0 0.03 0.01 FINAL Nicole Felton Mathewdamaris a [facility] - [place], [address] [place] [id number] 0 Phone: () - 07/05 CBC w/ auto diff LY % % 14.0 41.0 24.3 FINAL Nicole Ya Mathewdamaris a [facility] - [place], [address] [place] [id number] 0 Phone: () - 07/05 CBC w/ auto diff MO % % 6.0 15.0 16.2 High FINAL Nicole Ya Mathewdamaris a [facility] - [place], [address] [place] [id number] 0 Phone: () - 07/05 CBC w/ auto diff EO % % 0.0 7.0 0.3 FINAL Nicole Carmonaot a [facility] - [place], [address] [place] [id number] 0 Phone: () - 07/05 CBC w/ auto diff BA % % 0.0 2.0 0.3 FINAL Nicole Carmonaot a [facility] - [place], [address] [place] [id number] 0 Phone: () - 07/05 CBC w/ auto diff LY # K/uL 0.4 3.6 0.8 FINAL Nicole Carmonaot a [facility] - [place], [address] [place] [id number] 0 Phone: () - 07/05 CBC w/ auto diff MO # K/uL 0.2 1.3 0.5 FINAL Nicole Carmonaot a [facility] - [place], [address] [place] [id number] 0 Phone: () - 07/05 CBC w/ auto diff EO # K/uL 0.0 0.6 0.0 FINAL Nicole Terrazas a [facility] - [place], [address] [place] [id number] 0 Phone: () - 07/05 CBC w/ auto diff BA # K/uL 0.0 0.2 0.0 FINAL Nicole Terrazas a [facility] - [place], [address] [place] [id number] 0 Phone: () - 07/05 CBC w/ auto diff NRBC % #/100W BC 0.0 0.2 0.0 FINAL Nicole Carmonaot a [facility] - [place], [address] [place] [id number] 0 Phone: () - 07/05 CBC w/ auto diff RBC M/uL 3.9 5.1 3.95 FINAL Nicole Carmonaot a [facility] - [place], [address] [place] [id number] 0 Phone: () - 07/05 CBC w/ auto diff HCT % 35.0 48.0 36.7 FINAL Nicole Carmonaot a [facility] - [place], [address] [place] [id number] 0 Phone: () - 07/05 CBC w/ auto diff MCV fL 80.0 104.0 92.9 FINAL Nicole Carmonaot a [facility] - [place], [address] [place] [id number] 0 Phone: () - 07/05 CBC w/ auto diff MCH pg 26.0 35.0 30.1 FINAL Nicole Carmonaot a [facility] - [place], [address] [place] [id number] 0 Phone: () - 07/05 CBC w/ auto diff MCHC g/dL 30.0 35.0 32.4 FINAL Nicole Ya Nini a [facility] - [place], [address] [place] [id number] 0 Phone: () - 07/05 CBC w/ auto diff MPV fL 9.5 13.4 8.8 Low FINAL Nicole muñoz [facility] - [place], [address] [place] [id number] 0 Phone: () - 07/05 CBC w/ auto diff RDW % 11.4 16.1 14.10 FINAL Nicole Ya Nini muñoz [facility] - [place], [address] [place] [id number] 0 Phone: () - 12/02 PRIOR RESUL T See Report FINAL Nicole NEGRETE, [facility] [address] [place] [id number] 4 12/02 SOURC E: Periphe ral Blood FINAL Nicole NEGRETE, [facility] [address] [place] [id number] 4 12/02 BCR ABL1/ ABL1 % % 0.000 FINAL Nicole NEGRETE, [facility] [address] [place] [id number] 4 12/02 BCR ABL1/ ABL1 % (IS) % 0.000 FINAL Nicole NEGRETE, [facility] [address] [place] [id number] 4 12/02 INTER PRETA TION see note [...] l informati on, please refer tohttp:// education .Aquantia/faq/F AQ72(This link is being provided forinform ational/e ducationa l purposes only.)Ass ay sensitivi ty is at least 4.5-logs below baselineB CR-ABL1 transcrip t levels but is dependent onquantit y and quality of RNA used for testing and thecellul arity of the sample.Th is test was developed and its analytica lperforma nce character istics have been determine dby [facility] , [place], [place].It has not been cleared or approved by the FDA. Thisassay has been validated pursuant to the CLIAregul ations and is used for clinical purposes. Alejandro Ya, Ph.D, HCLD (ABB)Scie ntific Director, Molecular Oncology FINAL Nicole NEGRETE, [facility] [address] [place] [id number] 4 12/02 P190 BCR ABL1 Not Detecte d FINAL Nicole NEGRETE, [facility] [address] [place] [id number] 4 12/02 P210 BCR ABL1 Not Detecte d FINAL Nicole Ya QUEST, [facility] [address] [facility] [id number] 4 12/02 CMP Album in g/dL 3.5 5.0 4.3 FINAL Nicole Ya * [place] [facility], [address] [id number] 0 12/02 CMP Alkal ine phosp hatas e U/L 36.0 125.0 126 High FINAL Nicole Ya * [facility], [facility] [facility] [address] [id number] 0 12/02 CMP ALT/S GPT U/L 0.0 34.0 29 FINAL Nicole Ya * [facility], [facility] [address] [id number] 0 12/02 CMP AST/S GOT U/L 14.0 36.0 39 High FINAL Nicole Ya * [facility], [facility] [address] [id number] 0 12/02 CMP BUN mg/dL 7.0 17.0 14.0 FINAL Nicole Ya * [place] [facility], [address] [id number] 0 12/02 CMP Calci um mg/dL 8.4 10.2 9.1 FINAL Nicole Ya * [facility], [address] [facility] [address] [id number] 0 12/02 CMP Chlor rakan mmol/L 96.0 107.0 108 High FINAL Nicole Ya * [facility], [facility] [address] [id number] 0 12/02 CMP CO2 mmol/L 22.0 30.0 [...] hour stability window. FINAL Nicole Ya * [facility] [address] [facility] [id number] 0 12/02 CMP Creat inine mg/dL 0.66 1.25 1.30 High FINAL Nicole Ya * [facility], [address] [facility] [address] [id number] 0 12/02 CMP GFR estim ate ml/min /1.73m ^2 44.3 Low GFR is calculate d using the CKD-EPI equation. FINAL Nicole Najera [facility], [address] [id number] 0 12/02 CMP Gluco se mg/dL 74.0 100.0 126 High FINAL Nicole Felton [facility], [address] [facility] [id number] 0 12/02 CMP Potas sium mmol/L 3.5 5.1 3.9 FINAL Nicole Najera [facility], [address] [facility] [id number] 0 12/02 CMP Sodiu m mmol/L 137.0 145.0 140 FINAL Nicole Ya * [facility], [address] [facility] [id number] 0 12/02 CMP Bilir ubin, total mg/dL 0.2 1.3 0.7 FINAL Incole Felton * [facility] [place], [address] [place] [id number] 0 12/02 CMP Total prote in g/dL 6.3 8.2 6.5 FINAL Nicole Ya * [facility] [place], [address] [place] [id number] 0 12/02 CBC w/ auto diff WBC K/uL 3.0 8.9 4.0 FINAL Nicole Felton [facility] [place], [address] [place] [id number] 0 Phone: () - 12/02 CBC w/ auto diff HGB g/dL 11.3 15.2 12.8 FINAL Nicole Felton [facility] [place], [address] [place] [id number] 0 Phone: () - 12/02 CBC w/ auto diff PLT K/uL 113.0 364.0 175 FINAL Nicole Felton [facility] [place], [address] [place] [id number] 0 Phone: () - 12/02 CBC w/ auto diff Augustus # (ANC) K/uL 1.6 6.6 2.5 FINAL Nicole Felton [facility] [place], [address] [place] [id number] 0 Phone: () - 12/02 CBC w/ auto diff Augustus % % 43.0 74.0 63.2 FINAL Nicole Felton [facility] [place], [address] [place] [id number] 0 Phone: () - 12/02 CBC w/ auto diff IG % % 0.0 0.5 0.3 FINAL Nicole Felton [facility] [place], [address] [place] [id number] 0 Phone: () - 12/02 CBC w/ auto diff IG # K/uL 0.0 0.03 0.01 FINAL Nicole Carmonaot [facility] [place], [address] [place] [id number] 0 Phone: () - 12/02 CBC w/ auto diff LY % % 14.0 41.0 25.7 FINAL Nicole Carmonaot a [facility] [place], [address] [place] [id number] 0 Phone: () - 12/02 CBC w/ auto diff MO % % 6.0 15.0 10.8 FINAL Nicole Carmonaot a [facility] [place], [address] [place] [id number] 0 Phone: () - 12/02 CBC w/ auto diff EO % % 0.0 7.0 0.0 FINAL Nicole Ya [facility] [place], [address] [place] [id number] 0 Phone: () - 12/02 CBC w/ auto diff BA % % 0.0 2.0 0.0 FINAL Nicole Carmonaot a [facility] [place], [address] [place] [id number] 0 Phone: () - 12/02 CBC w/ auto diff LY # K/uL 0.4 3.6 1.0 FINAL Nicole Carmonaot a [facility] [place], [address] [place] [id number] 0 Phone: () - 12/02 CBC w/ auto diff MO # K/uL 0.2 1.3 0.4 FINAL Nicole Carmonaot a [facility] [place], [address] [place] [id number] 0 Phone: () - 12/02 CBC w/ auto diff EO # K/uL 0.0 0.6 0.0 FINAL Nicole Felton [facility] [place], [address] [place] [id number] 0 Phone: () - 12/02 CBC w/ auto diff BA # K/uL 0.0 0.2 0.0 FINAL Nicole Felton Nini [facility] [place], [address] [place] [id number] 0 Phone: () - 12/02 CBC w/ auto diff NRBC % #/100W BC 0.0 0.2 0.0 FINAL Nicole Felton [facility] [place], [address] [place] [id number] 0 Phone: () - 12/02 CBC w/ auto diff RBC M/uL 3.9 5.1 3.98 FINAL Nicole Ya [facility] [place], [address] [place] [id number] 0 Phone: () - 12/02 CBC w/ auto diff HCT % 35.0 48.0 38.6 FINAL Nicole Ya Mathewdamaris [facility] [place], [address] [place] [id number] 0 Phone: () - 12/02 CBC w/ auto diff MCV fL 80.0 104.0 97.0 FINAL Nicole Ya Mathewdamaris mu[facility] [place], [address] [place] [id number] 0 Phone: () - 12/02 CBC w/ auto diff MCH pg 26.0 35.0 32.2 FINAL Nicole Ya [facility]damaris [facility] [place], [address] [place] [id number] 0 Phone: () - 12/02 CBC w/ auto diff MCHC g/dL 30.0 35.0 33.2 FINAL Nicole Ya Mathewdamaris mu[facility] - [place], [address] [place] [id number] 0 Phone: () - 12/02 CBC w/ auto diff MPV fL 9.5 13.4 9.1 Low FINAL Nicole Ya Mathewdamaris mu[facility] - [place], [address] [place] [id number] 0 Phone: () - 12/02 CBC w/ auto diff RDW % 11.4 16.1 12.70 FINAL Nicole Ya [facility] [place], [address] [place] [id number] 0 Phone: () - 03/30 [facility] other lab See greek professor d 05/21 Misc other lab See greek professor d 06/15 CMP Album in g/dL 3.5 5.0 4.6 FINAL Nicole Ya * [facility] , [address] [facility] [id number] 0 06/15 CMP Alkal ine phosp hatas e U/L 36.0 125.0 92 FINAL Nicole Ya * [facility] , [address] [facility] [id number] 0 06/15 CMP ALT/S GPT U/L 0.0 34.0 44 High FINAL Nicole Ya * [facility] , [address] [facility] [id number] 0 06/15 CMP AST/S GOT U/L 14.0 36.0 43 High FINAL Nicole Ya * [facility] , [address] [facility] [id number] 0 06/15 CMP BUN mg/dL 7.0 17.0 17.0 FINAL Nicole Ya * [facility] , [address] [facility] [id number] 0 06/15 CMP Calci um mg/dL 8.4 10.2 9.6 FINAL Nicole Ya * [facility] , [address] [facility] [id number] 0 06/15 CMP Chlor rakan mmol/L 96.0 107.0 106 FINAL Nicole Ya * [facility] , [address] [facility] [address] [facility] [id number] 0 06/15 CMP CO2 mmol/L 22.0 30.0 [...] hour stability window. FINAL Nicoledarius Ya * [facility] , [address] [facility] [address] [id number] 0 06/15 CMP Creat inine mg/dL 0.66 1.25 1.30 High FINAL Nicoledarius Ya * [facility] , [facility]0 [facility] [address] [id number] 0 06/15 CMP GFR estim ate ml/min /1.73m ^2 44.1 Low GFR is calculate d using the CKD-EPI equation. FINAL Nicoledarius Ya * [facility] , [address] [facility] [address] [id number] 0 06/15 CMP Gluco se mg/dL 74.0 100.0 94 FINAL Nicoledarius Ya * [facility] , [address] [id number] 0 06/15 CMP Potas sium mmol/L 3.5 5.1 4.1 FINAL Nicoledarius Ya * [facility] , [address] [facility] [address] [id number] 0 06/15 CMP Sodiu m mmol/L 137.0 145.0 140 FINAL Nicole Ya * [facility] , [address] [facility] [address] [id number] 0 06/15 CMP Bilir ubin, total mg/dL 0.2 1.3 0.9 FINAL Nicole Ya * [place] [facility] [place] [facility] , [address] [facility] [id number] 0 06/15 CMP Total prote in g/dL 6.3 8.2 6.7 FINAL Nicole Ya * [place] [facility] [place] [facility] , [address] [facility] [id number] 0 06/15 CBC w/ auto diff WBC K/uL 3.0 8.9 4.7 FINAL Nicole Felton [place] [facility] [place] [facility] , [address] [place] [id number] 0 06/15 CBC w/ auto diff HGB g/dL 11.3 15.2 13.6 FINAL Nicole Felton [place] [facility] [place] [facility] , [address] [place] [id number] 0 06/15 CBC w/ auto diff PLT K/uL 113.0 364.0 151 FINAL Nicole Ya [place] [facility] [place] [facility] , [address] [place] [id number] 0 06/15 CBC w/ auto diff Augustus # (ANC) K/uL 1.6 6.6 2.9 FINAL Nicole Ya [place] [facility] [place] [facility] , [address] [place] [id number] 0 06/15 CBC w/ auto diff Augustus % % 43.0 74.0 61.4 FINAL Nicole Ya [place] [facility] , [address] [place] [id number] 0 06/15 CBC w/ auto diff IG % % 0.0 0.5 0.2 FINAL Nicole Ya [place] [facility] [place] [facility] , [address] [place] [id number] 0 06/15 CBC w/ auto diff IG # K/uL 0.0 0.03 0.01 FINAL Nicole Ya [place] [facility] [place] [facility] , [address] [place] [id number] 0 06/15 CBC w/ auto diff LY % % 14.0 41.0 28.3 FINAL Nicole Ya [place] [facility] , [address] [place] [id number] 0 06/15 CBC w/ auto diff MO % % 6.0 15.0 10.1 FINAL Nicole Ya [place] [facility] , [address] [place] [id number] 0 06/15 CBC w/ auto diff EO % % 0.0 7.0 0.0 FINAL Nicole Ya [place] [facility] , [address] [place] [id number] 0 06/15 CBC w/ auto diff BA % % 0.0 2.0 0.0 FINAL Nicole Ya [place] [facility] , [address] [place] [id number] 0 06/15 CBC w/ auto diff LY # K/uL 0.4 3.6 1.3 FINAL Nicole Ya [place] [facility] , [address] [place] [id number] 0 06/15 CBC w/ auto diff MO # K/uL 0.2 1.3 0.5 FINAL Nicole Ya [place] [facility] [place] [facility] , [address] [place] [id number] 0 06/15 CBC w/ auto diff EO # K/uL 0.0 0.6 0.0 FINAL Nicole Ya [place] [facility] [place] [facility] , [address] [place] [id number] 0 06/15 CBC w/ auto diff BA # K/uL 0.0 0.2 0.0 FINAL Nicole Ya [place] [facility] [place] [facility] , [address] [place] [id number] 0 06/15 CBC w/ auto diff NRBC % #/100W BC 0.0 0.2 0.0 FINAL Nicole Ya [place] [facility] [place] [facility] , [address] [place] [id number] 0 06/15 CBC w/ auto diff RBC M/uL 3.9 5.1 4.32 FINAL Nicole Ya [place] [facility] [place] [facility] , [address] [place] [id number] 0 06/15 CBC w/ auto diff HCT % 35.0 48.0 41.6 FINAL Nicole Ya [place] [facility] , [address] [place] [id number] 0 06/15 CBC w/ auto diff MCV fL 80.0 104.0 96.3 FINAL Nicole Ya [place] [facility] , [address] [place] [id number] 0 06/15 CBC w/ auto diff MCH pg 26.0 35.0 31.5 FINAL Nicole Ya [place] [facility] [place] [facility] , [address] [place] [id number] 0 06/15 CBC w/ auto diff MCHC g/dL 30.0 35.0 32.7 FINAL Nicole Ya [place] [facility] , [address] [place] [id number] 0 06/15 CBC w/ auto diff MPV fL 9.5 13.4 9.3 Low FINAL Nicole Ya [place] [facility] [place] [facility] , [address] [place] [id number] 0 06/15 CBC w/ auto diff RDW % 11.4 16.1 12.00 FINAL Nicole Ya [place] [facility] [place] [facility] , [address] [place] [id number] 0 06/15 PRIOR RESUL T See Report FINAL Nicole NEGRETE, [facility] [address] [place] [id number] 4 06/15 SOUR E: Periphe ral Blood FINAL Nicole NEGRETE, [facility] [address] [place] [id number] 4 06/15 BCR ABL1/ ABL1 % % 0.000 FINAL Nicole NEGRETE, [facility] [address] [place] [id number] 4 06/15 BCR ABL1/ ABL1 % (IS) % 0.000 FINAL Nicole Ya QUEST, [facility] [address] [place] [id number] 4 06/15 INTER PRETA TION see note [...] l informati on, please refer tohttp:// education .Aquantia/faq/F AQ72(This link is being provided forinform ational/e ducationa l purposes only.)Ass ay sensitivi ty is at least 4.5-logs below baselineB CR-ABL1 transcrip t levels but is dependent onquantit y and quality of RNA used for testing and thecellul arity of the sample.Th is test was developed and its analytica lperforma nce character istics have been determine dby [facility] [place], [place].It has not been cleared or approved by the FDA. Thisassay has been validated pursuant to the CLIAregul ations and is used for clinical purposes. Denver wilson M.D. FINAL Nicole Ya QUEST, [facility] [address] [place] [id number] 4 06/15 P190 BCR ABL1 Not Detecte d FINAL Nicole Ya QUEST, [facility] [address] [place] [id number] 4 06/15 P210 BCR ABL1 Not Detecte d FINAL Nicole Ya Deal Pepper, [facility] [address] [place] [id number] 4 01/06 CBC w/ auto diff WBC K/uL 3.0 8.9 4.5 FINAL Nicole Ya [place] [facility] [place] [facility] , [address] [place] [id number] 0 01/06 CBC w/ auto diff HGB g/dL 11.3 15.2 12.8 FINAL Nicole Felton [place] [facility] [place] [facility] , [address] [place] [id number] 0 08/20 /2025 CBC w/ auto diff PLT K/uL 113.0 364.0 153 FINAL Nicole Ya [place] [facility] [place] [facility] , [address] [place] [id number] 0 01/06 CBC w/ auto diff Augustus # (ANC) K/uL 1.6 6.6 2.8 FINAL Nicole Ya [place] [facility] [place] [facility] , [address] [place] [id number] 0 01/06 CBC w/ auto diff Augustus % % 43.0 74.0 61.5 FINAL Nicole Ya [place] [facility] , [address] [place] [id number] 0 01/06 CBC w/ auto diff IG % % 0.0 0.5 0.4 FINAL Nicole Ya [place] [facility] , [address] [place] [id number] 0 01/06 CBC w/ auto diff IG # K/uL 0.0 0.03 0.02 FINAL Nicole Ya [place] [facility] , [address] [place] [id number] 0 01/06 CBC w/ auto diff LY % % 14.0 41.0 25.4 FINAL Nicole Ya [place] [facility] , [address] [place] [id number] 0 01/06 CBC w/ auto diff MO % % 6.0 15.0 12.7 FINAL Nicole Ya [place] [facility] , [address] [place] [id number] 0 01/06 CBC w/ auto diff EO % % 0.0 7.0 0.0 FINAL Nicole Ya [place] [facility] , [address] [place] [id number] 0 01/06 CBC w/ auto diff BA % % 0.0 2.0 0.0 FINAL Nicole Ya [place] [facility] , [address] [place] [id number] 0 01/06 CBC w/ auto diff LY # K/uL 0.4 3.6 1.1 FINAL Nicole Ya [place] [facility] , [address] [place] [id number] 0 01/06 CBC w/ auto diff MO # K/uL 0.2 1.3 0.6 FINAL Nicole Ya [place] [facility] , [address] [place] [id number] 0 01/06 CBC w/ auto diff EO # K/uL 0.0 0.6 0.0 FINAL Nicole Ya [place] [facility] , [address] [place] [id number] 0 01/06 CBC w/ auto diff BA # K/uL 0.0 0.2 0.0 FINAL Nicole Ya [place] [facility] , [address] [place] [id number] 0 01/06 CBC w/ auto diff NRBC % #/100W BC 0.0 0.2 0.0 FINAL Nicole Ya [place] [facility] , [address] [place] [id number] 0 01/06 CBC w/ auto diff RBC M/uL 3.9 5.1 3.69 Low FINAL Nicole Ya [place] [facility] , [address] [place] [id number] 0 01/06 CBC w/ auto diff HCT % 35.0 48.0 37.6 FINAL Nicole Ya [place] [facility] , [address] [place] [id number] 0 01/06 CBC w/ auto diff MCV fL 80.0 104.0 101.9 FINAL Nicole Ya [facility] [place] [facility] , [address] [place] [id number] 0 01/06 CBC w/ auto diff MCH pg 26.0 35.0 34.7 FINAL Nicole Felton [facility] [place] [facility] , [address] [place] [id number] 0 01/06 CBC w/ auto diff MCHC g/dL 30.0 35.0 34.0 FINAL Nicole Ya [facility] [place] [facility] , [address] [place] [id number] 0 01/06 CBC w/ auto diff MPV fL 9.5 13.4 9.6 FINAL Nicole Ya [facility] [place] [facility] , [address] [place] [id number] 0 01/06 CBC w/ auto diff RDW % 11.4 16.1 13.00 FINAL Nicole Felton [facility] [place] [facility] , [address] [place] [id number] 0 01/06 CMP Album in g/dL 3.5 5.0 3.9 FINAL Nicole Ya * [place] [facility] [place] [facility] , [address] [place] [id number] 0 01/06 CMP Alkal ine phosp hatas e U/L 36.0 125.0 79 FINAL Nicole Ya * [facility] , [address] [facility] [id number] 0 01/06 CMP ALT/S GPT U/L 0.0 34.0 24 FINAL Nicole Ya * [facility] , [address] [facility] [id number] 0 01/06 CMP AST/S GOT U/L 14.0 36.0 33 FINAL Nicole Ya * [facility] , [address] [facility] [id number] 0 01/06 CMP BUN mg/dL 7.0 17.0 14.0 FINAL Nicole Ya * [facility] , [address] [facility] [id number] 0 01/06 CMP Calci um mg/dL 8.4 10.2 8.9 FINAL Nicole Ya * [facility] , [address] [facility] [id number] 0 01/06 CMP Chlor rakan mmol/L 96.0 107.0 109 High FINAL Nicoledarius Ya * [facility] , [address] [facility] [id number] 0 01/06 CMP CO2 mmol/L 22.0 30.0 [...] hour stability window. FINAL Nicole Ya * [facility] , [address] [facility] [id number] 0 01/06 CMP Creat inine mg/dL 0.66 1.25 1.00 FINAL Nicole Ya * [facility] , [address] [facility] [id number] 0 01/06 CMP GFR estim ate ml/min /1.73m ^2 60.2 GFR is calculate d using the CKD-EPI equation. FINAL Nicole Ya * [facility] , [address] [facility] [id number] 0 01/06 CMP Gluco se mg/dL 74.0 100.0 88 FINAL Nicole Ya * [facility] , [address] [facility] [id number] 0 01/06 CMP Potas sium mmol/L 3.5 5.1 4.1 FINAL Nicole Ya * [facility] , [address] [facility] [id number] 0 01/06 CMP Sodiu m mmol/L 137.0 145.0 141 FINAL Nicole Ya * [facility] , [address] [facility] [id number] 0 01/06 CMP Bilir ubin, total mg/dL 0.2 1.3 0.8 FINAL Nicole Ya * [facility] , [address] [facility] [id number] 0 01/06 CMP Total prote in g/dL 6.3 8.2 6.2 Low FINAL Nicole Ya * [facility] , [address] [facility] [id number] 0 01/06 PRIOR RESUL T See Report FINAL Nicole NEGRETE, [facility] [address] [facility] [id number] 4 01/06 SOURC E: Periphe ral Blood FINAL Nicole NEGRETE, [facility] [address] [place] [id number] 4 01/06 BCR ABL1/ ABL1 % % 0.000 FINAL Nicole NEGRETE, [facility] [address] [place] [id number] 4 01/06 BCR ABL1/ ABL1 % (IS) % 0.000 FINAL Nicole NEGRETE, [facility] [address] [place] [id number] 4 01/06 INTER PRETA TION see note [...] l informati on, please refer tohttp:// education .Aquantia/faq/F AQ72(This link is being provided forinform ational/e ducationa l purposes only.)Ass ay sensitivi ty is at least 4.5-logs below baselineB CR-ABL1 transcrip t levels but is dependent onquantit y and quality of RNA used for testing and thecellul arity of the sample.Th is test was developed and its analytica lperforma nce character istics have been determine dby [facility] , [place], [place].It has not been cleared or approved by the FDA. Thisassay has been validated pursuant to the CLIAregul ations and is used for clinical purposes. Reviewed by Aiden Hui M.D., Ph.D.Sta f Pathologi st FINAL Nicole Ya QUEST, [facility] [address] [place] [id number] 4 01/06 P190 BCR ABL1 Not Detecte d FINAL Nicole Ya QUEST, [facility] [address] [facility] [place] [id number] 4 01/06 P210 BCR ABL1 Not Detecte d FINAL Nicole NEGRETE, [facility] [address] [facility] [place] [id number] 4 Medications Date Name Route Dose Frequency [...] given Active Vital Signs Date Type Value 12/12/2022 Body Temperature 98.20 12/12/2022 Heart Beat 47.00 12/12/2022 Respiratory Rate 16.00 12/12/2022 Oxygen Saturation 97.00 12/12/2022 Intravascular Systolic 106 12/12/2022 Intravascular Diastolic 71 12/12/2022 Pain Scale 0.00 12/12/2022 Height 66.50 12/13/2022 BSA 1.89 12/13/2022 Intravascular Systolic 120 12/13/2022 Intravascular Diastolic 72 12/13/2022 BMI 27.41 12/13/2022 Height 66.50 12/13/2022 Weight 172.40 12/13/2022 Pain Scale 0.00 12/13/2022 Oxygen Saturation 99.00 12/13/2022 Body Temperature 96.00 12/13/2022 Heart Beat 101.00 12/13/2022 Respiratory Rate 18.00 12/14/2022 Height 66.50 12/14/2022 Pain Scale 0.00 12/14/2022 Intravascular Systolic 136 12/14/2022 Intravascular Diastolic 74 12/14/2022 Oxygen Saturation 97.00 12/14/2022 Respiratory Rate 16.00 12/14/2022 Heart Beat 107.00 12/14/2022 Body Temperature 98.20 12/27/2022 Oxygen Saturation 97.00 12/27/2022 Respiratory Rate 16.00 12/27/2022 BSA 1.90 12/27/2022 BMI 27.89 12/27/2022 Height 66.50 12/27/2022 Weight 175.40 12/27/2022 Pain Scale 0.00 12/27/2022 Intravascular Systolic 104 12/27/2022 Intravascular Diastolic 64 12/27/2022 Body Temperature 97.80 12/27/2022 Heart Beat 84.00 12/28/2022 Body Temperature 97.70 12/28/2022 BMI 27.84 12/28/2022 Height 66.50 12/28/2022 Weight 175.10 12/28/2022 BSA 1.90 12/28/2022 Intravascular Systolic 121 12/28/2022 Intravascular Diastolic 72 12/28/2022 Oxygen Saturation 97.00 12/28/2022 Respiratory Rate 16.00 12/28/2022 Heart Beat 94.00 12/28/2022 Pain Scale 0.00 01/01/2023 Oxygen Saturation 98.00 01/01/2023 Respiratory Rate 16.00 01/01/2023 Heart Beat 83.00 01/01/2023 Body Temperature 98.60 01/01/2023 Intravascular Systolic 113 01/01/2023 Intravascular Diastolic 64 01/01/2023 BSA 1.91 01/01/2023 BMI 28.12 01/01/2023 Height 66.50 01/01/2023 Weight 176.90 01/01/2023 Pain Scale 0.00 01/03/2023 Body Temperature 98.50 01/03/2023 Heart Beat 78.00 01/03/2023 Oxygen Saturation 98.00 01/03/2023 Intravascular Systolic 109 01/03/2023 Intravascular Diastolic 58 01/03/2023 Height 66.50 01/03/2023 Pain Scale 0.00 01/04/2023 Body Temperature 98.30 01/04/2023 Height 66.50 01/04/2023 Heart Beat 71.00 01/04/2023 Oxygen Saturation 98.00 01/04/2023 Intravascular Systolic 113 01/04/2023 Intravascular Diastolic 71 01/04/2023 Pain Scale 0.00 01/14/2023 Pain Scale 0.00 01/14/2023 Height 66.50 01/14/2023 Intravascular Systolic 108 01/14/2023 Intravascular Diastolic 57 01/14/2023 Oxygen Saturation 99.00 01/14/2023 Respiratory Rate 20.00 01/14/2023 Heart Beat 70.00 01/14/2023 Body Temperature 97.90 01/18/2023 BMI 28.71 01/18/2023 Height 66.50 01/18/2023 Weight 180.60 01/18/2023 Pain Scale 0.00 01/18/2023 BSA 1.93 01/18/2023 Oxygen Saturation 98.00 01/18/2023 Respiratory Rate 17.00 01/18/2023 Heart Beat 74.00 01/18/2023 Body Temperature 96.70 01/18/2023 Intravascular Systolic 112 01/18/2023 Intravascular Diastolic 78 01/23/2023 BSA 1.90 01/23/2023 BMI 27.74 01/23/2023 Height 66.50 01/23/2023 Weight 174.50 01/23/2023 Pain Scale 0.00 01/23/2023 Intravascular Systolic 104 01/23/2023 Intravascular Diastolic 66 01/23/2023 Oxygen Saturation 97.00 01/23/2023 Respiratory Rate 16.00 01/23/2023 Body Temperature 98.70 01/23/2023 Heart Beat 77.00 01/24/2023 Body Temperature 97.70 01/24/2023 Heart Beat 82.00 01/24/2023 Respiratory Rate 16.00 01/24/2023 Oxygen Saturation 99.00 01/24/2023 Intravascular Systolic 112 01/24/2023 Intravascular Diastolic 67 01/24/2023 Pain Scale 0.00 01/24/2023 Height 66.50 01/29/2023 Weight 170.20 01/29/2023 Height 66.50 01/29/2023 BMI 27.06 01/29/2023 BSA 1.88 01/29/2023 Body Temperature 98.40 01/29/2023 Heart Beat 89.00 01/29/2023 Respiratory Rate 16.00 01/29/2023 Oxygen Saturation 96.00 01/29/2023 Intravascular Systolic 123 01/29/2023 Intravascular Diastolic 78 01/29/2023 Pain Scale 0.00 01/30/2023 Body Temperature 97.90 01/30/2023 Heart Beat 78.00 01/30/2023 Respiratory Rate 16.00 01/30/2023 Oxygen Saturation 98.00 01/30/2023 Intravascular Systolic 115 01/30/2023 Intravascular Diastolic 66 01/30/2023 Pain Scale 0.00 01/30/2023 Height 66.50 01/31/2023 Body Temperature 98.50 01/31/2023 Heart Beat 82.00 01/31/2023 Height 66.50 01/31/2023 Pain Scale 0.00 01/31/2023 Intravascular Systolic 113 01/31/2023 Intravascular Diastolic 71 01/31/2023 Oxygen Saturation 98.00 01/31/2023 Respiratory Rate 16.00 02/05/2023 BSA 1.90 02/05/2023 BMI 27.73 02/05/2023 Height 66.50 02/05/2023 Weight 174.40 02/05/2023 Pain Scale 3.00 02/05/2023 Intravascular Systolic 110 02/05/2023 Intravascular Diastolic 76 02/05/2023 Oxygen Saturation 96.00 02/05/2023 Respiratory Rate 16.00 02/05/2023 Body Temperature 99.10 02/05/2023 Heart Beat 112.00 02/07/2023 Respiratory Rate 16.00 02/07/2023 Heart Beat 82.00 02/07/2023 Body Temperature 97.00 02/07/2023 Oxygen Saturation 93.00 02/07/2023 Intravascular Systolic 94 02/07/2023 Intravascular Diastolic 64 02/07/2023 Pain Scale 0.00 02/07/2023 Height 66.50 02/08/2023 Heart Beat 77.00 02/08/2023 Body Temperature 97.70 02/08/2023 Respiratory Rate 16.00 02/08/2023 BSA 1.92 02/08/2023 BMI 28.55 02/08/2023 Height 66.50 02/08/2023 Weight 179.60 02/08/2023 Oxygen Saturation 99.00 02/08/2023 Intravascular Systolic 104 02/08/2023 Intravascular Diastolic 68 02/08/2023 Pain Scale 0.00 02/12/2023 Height 66.50 02/12/2023 BMI 28.08 02/12/2023 BSA 1.91 02/12/2023 Pain Scale 0.00 02/12/2023 Weight 176.60 02/12/2023 Oxygen Saturation 98.00 02/12/2023 Respiratory Rate 16.00 02/12/2023 Heart Beat 80.00 02/12/2023 Body Temperature 98.30 02/12/2023 Intravascular Systolic 97 02/12/2023 Intravascular Diastolic 66 02/19/2023 Body Temperature 97.30 02/19/2023 Heart Beat 84.00 02/19/2023 BSA 1.90 02/19/2023 BMI 27.97 02/19/2023 Height 66.50 02/19/2023 Weight 175.90 02/19/2023 Pain Scale 0.00 02/19/2023 Intravascular Systolic 100 02/19/2023 Intravascular Diastolic 61 02/19/2023 Oxygen Saturation 98.00 02/19/2023 Respiratory Rate 16.00 03/01/2023 Body Temperature 97.10 03/01/2023 BMI 29.00 03/01/2023 Height 66.50 03/01/2023 Weight 182.40 03/01/2023 BSA 1.93 03/01/2023 Intravascular Systolic 108 03/01/2023 Intravascular Diastolic 67 03/01/2023 Oxygen Saturation 98.00 03/01/2023 Respiratory Rate 14.00 03/01/2023 Heart Beat 72.00 03/01/2023 Pain Scale 0.00 03/22/2023 Body Temperature 97.90 03/22/2023 Heart Beat 78.00 03/22/2023 Respiratory Rate 16.00 03/22/2023 Oxygen Saturation 99.00 03/22/2023 Intravascular Systolic 111 03/22/2023 Intravascular Diastolic 69 03/22/2023 Pain Scale 0.00 03/22/2023 Weight 176.70 03/22/2023 Height 66.50 03/22/2023 BMI 28.09 03/22/2023 BSA 1.91 04/12/2023 Body Temperature 97.20 04/12/2023 Heart Beat 72.00 04/12/2023 BSA 1.94 04/12/2023 BMI 29.22 04/12/2023 Height 66.50 04/12/2023 Weight 183.80 04/12/2023 Pain Scale 0.00 04/12/2023 Intravascular Systolic 144 04/12/2023 Intravascular Diastolic 72 04/12/2023 Oxygen Saturation 98.00 04/12/2023 Respiratory Rate 14.00 05/03/2023 Body Temperature 97.70 05/03/2023 BSA 1.93 05/03/2023 BMI 28.87 05/03/2023 Height 66.50 05/03/2023 Pain Scale 0.00 05/03/2023 Intravascular Systolic 132 05/03/2023 Intravascular Diastolic 76 05/03/2023 Oxygen Saturation 98.00 05/03/2023 Respiratory Rate 16.00 05/03/2023 Heart Beat 77.00 05/03/2023 Weight 181.60 05/24/2023 Pain Scale 0.00 05/24/2023 Weight 184.20 05/24/2023 Height 66.50 05/24/2023 BMI 29.28 05/24/2023 BSA 1.94 05/24/2023 Oxygen Saturation 97.00 05/24/2023 Respiratory Rate 16.00 05/24/2023 Heart Beat 62.00 05/24/2023 Body Temperature 98.10 05/24/2023 Intravascular Systolic 141 05/24/2023 Intravascular Diastolic 77 06/04/2023 Oxygen Saturation 97.00 06/04/2023 Respiratory Rate 17.00 06/04/2023 Heart Beat 89.00 06/04/2023 Body Temperature 97.40 06/04/2023 Intravascular Systolic 139 06/04/2023 Intravascular Diastolic 80 06/04/2023 BSA 1.89 06/04/2023 BMI 27.58 06/04/2023 Height 66.50 06/04/2023 Weight 173.50 06/04/2023 Pain Scale 0.00 06/14/2023 BMI 29.21 06/14/2023 Height 66.50 06/14/2023 Weight 183.70 06/14/2023 Pain Scale 0.00 06/14/2023 BSA 1.94 06/14/2023 Heart Beat 80.00 06/14/2023 Respiratory Rate 16.00 06/14/2023 Oxygen Saturation 98.00 06/14/2023 Intravascular Systolic 126 06/14/2023 Intravascular Diastolic 73 06/14/2023 Body Temperature 97.40 07/05/2023 Pain Scale 0.00 07/05/2023 Weight 180.00 07/05/2023 Height 66.50 07/05/2023 BMI 28.62 07/05/2023 BSA 1.92 07/05/2023 Body Temperature 97.80 07/05/2023 Heart Beat 77.00 07/05/2023 Respiratory Rate 16.00 07/05/2023 Oxygen Saturation 98.00 07/05/2023 Intravascular Systolic 122 07/05/2023 Intravascular Diastolic 76 07/26/2023 Weight 177.30 07/26/2023 Intravascular Systolic 146 07/26/2023 Intravascular Diastolic 74 07/26/2023 Oxygen Saturation 92.00 07/26/2023 Respiratory Rate 16.00 07/26/2023 Heart Beat 85.00 07/26/2023 Body Temperature 97.30 07/26/2023 BSA 1.91 07/26/2023 BMI 28.19 07/26/2023 Height 66.50 07/26/2023 Pain Scale 0.00 08/16/2023 Heart Beat 77.00 08/16/2023 Body Temperature 97.10 08/16/2023 BSA 1.90 08/16/2023 BMI 27.73 08/16/2023 Pain Scale 0.00 08/16/2023 Weight 174.40 08/16/2023 Intravascular Systolic 134 08/16/2023 Intravascular Diastolic 79 08/16/2023 Oxygen Saturation 98.00 08/16/2023 Height 66.50 09/06/2023 Body Temperature 97.00 09/06/2023 Heart Beat 68.00 09/06/2023 Respiratory Rate 16.00 09/06/2023 Oxygen Saturation 98.00 09/06/2023 BSA 1.90 09/06/2023 Pain Scale 0.00 [...] 10/18/2023 BMI 27.87 10/18/2023 Height 66.50 10/18/2023 Weight 175.30 10/18/2023 Intravascular Systolic 120 10/18/2023 Intravascular Diastolic 85 10/18/2023 Oxygen Saturation 98.00 10/18/2023 Respiratory Rate 18.00 10/18/2023 Heart Beat 71.00 10/18/2023 Pain Scale 3.00 10/18/2023 Body Temperature 97.70 11/08/2023 Pain Scale 2.00 11/08/2023 Body Temperature 97.60 11/08/2023 Heart Beat 72.00 11/08/2023 Respiratory Rate 16.00 11/08/2023 BSA 1.90 11/08/2023 Intravascular Systolic 121 11/08/2023 Intravascular Diastolic 81 11/08/2023 Weight 175.20 11/08/2023 Height 66.50 11/08/2023 BMI 27.85 11/08/2023 Oxygen Saturation 96.00 12/13/2023 Body Temperature 97.50 12/13/2023 Heart Beat 69.00 12/13/2023 Respiratory Rate 16.00 12/13/2023 Oxygen Saturation 98.00 12/13/2023 BSA 1.89 12/13/2023 Pain Scale 0.00 12/13/2023 Weight 172.20 12/13/2023 Height 66.50 12/13/2023 BMI 27.38 12/13/2023 Intravascular Systolic 144 12/13/2023 Intravascular Diastolic 90 03/23/2024 Body Temperature 97.50 03/23/2024 Heart Beat 63.00 03/23/2024 Respiratory Rate 16.00 03/23/2024 Oxygen Saturation 98.00 03/23/2024 BSA 1.90 03/23/2024 Pain Scale 0.00 03/23/2024 Weight 174.90 03/23/2024 Height 66.50 03/23/2024 BMI 27.81 03/23/2024 Intravascular Systolic 122 03/23/2024 Intravascular Diastolic 68 06/15/2024 Body Temperature 98.30 06/15/2024 Heart Beat 82.00 06/15/2024 Respiratory Rate 16.00 06/15/2024 Oxygen Saturation 98.00 06/15/2024 BSA 1.89 06/15/2024 Pain Scale 0.00 06/15/2024 Weight 172.60 06/15/2024 Height 66.50 06/15/2024 BMI 27.44 06/15/2024 Intravascular Systolic 130 06/15/2024 Intravascular Diastolic 86 01/06/2025 BMI 27.04 01/06/2025 BSA 1.88 01/06/2025 Height 66.50 01/06/2025 Weight 170.10 01/06/2025 Pain Scale 1.00 01/06/2025 Intravascular Systolic 130 01/06/2025 Intravascular Diastolic 88 01/06/2025 Oxygen Saturation 96.00 01/06/2025 Respiratory Rate 16.00 01/06/2025 Heart Beat 50.00 01/06/2025 Body Temperature 96.40 01/20/2025 BSA 1.88 01/20/2025 BMI 27.00 01/20/2025 Height 66.50 01/20/2025 Weight 169.80 01/20/2025 Body Temperature 96.80 01/20/2025 Intravascular Systolic 132 01/20/2025 Intravascular Diastolic 82 01/20/2025 Oxygen Saturation 98.00 01/20/2025 Respiratory Rate 16.00 01/20/2025 Heart Beat 72.00 01/20/2025 Pain Scale 0.00
--- OUTSIDE RECORDS SUMMARY | 2025-01-25 22:54 | XMS_ITS ---
Author Name Interface, Z0Ghfihbd lity Address [address] [facility] [address] [address] [facility] Oncology Address [address] [facility] [address] [address] Allergies and Adverse Reactions Medication/Group Name Reaction [...] 03/22/2023 APPOINTMENT TREATMENT 2 HR 03/13/2023 APPOINTMENT LONG-TERM FOLLOW UP 20 MIN 03/13/2023 APPOINTMENT LAB [...] 15 MIN 03/13/2022 APPOINTMENT OV 30 MIN 03/13/2022 LABORDER BCR-ABL p210 pineda ntitative 03/13/2022 [...] Visit OV 30 MIN Encounters Date Name 03/13/2022 Acute pharyngitis 03/13/2022 Breast cancer, femal e 03/13/2022 Vicky intertrigo ( disorder) 03/13/2022 Cellulitis of breast (disorder) 03/13/2022 Chronic myeloid leuk emia, disease (disorder) 03/13/2022 Counseling 03/13/2022 Dehydration 03/13/2022 Diarrhea caused by d rug (disorder) 03/13/2022 Drug-induced nausea and vomiting (disorder) 03/13/2022 Drug-induced neutrop enia (disorder) 03/13/2022 Estrogen receptor ne gative status [ER-] 03/13/2022 Hypokalemia (disorde r) 03/13/2022 Limited range of mot ion 03/13/2022 Lower extremity elie a 03/13/2022 Lymphedema 03/13/2022 Muscle weakness (fin ding) 03/13/2022 Neutropenia preventi on 03/13/2022 Personal history of breast cancer 03/13/2022 Right shoulder pain 03/13/2022 Screening status (fi nding) 03/13/2022 Secondary malignancy of lymph nodes 03/13/2022 Thrombocytopenia cau sed by drugs (disorder) 03/13/2022 Vaccination for infl uenza given Immunizations Date Name Route Dose Instructions Refusal Reason Status Influenza, adjuvanted, inactivated, quadrivalent, injectable, preservative free Right-Delt oid 0.5 mL Flu vaccine - Adult Not given other reason Not Administered Flu vaccine - Adult Completed Flu vaccine - Adult Completed Covid-19 vaccine (Pfizer) Patient declined/rej ected Not Administered Covid-19 vaccine (Moderna) Patient declined/rej ected Not Administered Diagnostic Results Date Type Test Units Lower Limit Upper Limit Result Flag Comments Status Ordered By Specimen Source Lab Address 03/13 CMP Album in g/dL 3.2 5.2 4.5 FINAL [place] [address] [phone] Phone: () - 03/13 CMP Alkal ine phosp hatas e U/L 46.0 116.0 103 FINAL [place] [address] [phone] 0 Phone: () - 03/13 CMP ALT/S GPT U/L 7.0 40.0 19 FINAL [place] [address] [id number] 0 Phone: () - 03/13 CMP AST/S GOT U/L 13.0 40.0 23 FINAL [place] [address] [phone] 0 Phone: () - 03/13 CMP BUN mg/dL 9.0 23.0 [address] [phone] 0 Phone: () - 03/13 CMP Calci um mg/dL 8.7 10.4 10.5 High FINAL [place] [address] [phone] 0 Phone: () - 03/13 CMP Chlor rakan mmol/L 96.0 114.0 107 FINAL [place] [address] [phone] 0 Phone: () - 03/13 CMP CO2 [...] the 96 hour stability window. FINAL [place] [address] [phone] 0 Phone: () - 03/13 CMP Creat inine mg/dL 0.5 1.2 1.25 High FINAL Ruiz Terraz[place] [address] [phone] 0 Phone: () - 03/13 CMP GFR estim ate ml/min /1.73m ^2 46.9 Low GFR is calculate d using the CKD-EPI equation. FINAL [place] [address] [phone] 0 Phone: () - 03/13 CMP Gluco se mg/dL 73.0 126.0 111 FINAL [place] [address] [id number] 0 Phone: () - 03/13 CMP Potas sium mmol/L 3.5 5.1 4.2 FINAL Ruiz Ray[place] [address] [phone] 0 Phone: () - 03/13 CMP Sodiu m mmol/L 136.0 145.0 144 FINAL [place] [address] [phone] 0 Phone: () - 03/13 CMP Bilir ubin, total mg/dL 0.3 1.2 0.8 FINAL [place] [address] [phone] 0 Phone: () - 03/13 CMP Total prote in g/dL 5.7 8.2 6.7 FINAL Ruiz Ray[place] [address] [phone] 0 Phone: () - 03/13 CBC w/ auto diff HGB g/dL 11.3 15.2 14.6 FINAL Ruiz Raya [facility], [address] [place] [address] [address] [facility] [phone] 0 Phone: () - 03/13 CBC w/ auto diff Augustus # (ANC) K/uL 1.6 6.6 5.3 FINAL Ruiz Terrazas [facility], [address] [place] [address] 210 [facility] [phone] 0 Phone: () - 03/13 CBC w/ auto diff IG % % 0.0 0.5 0.3 [facility]AL [facility] [address] [place] [address] 210 [facility] [phone] 0 Phone: () - 03/13 CBC w/ auto diff IG # K/uL 0.0 0.03 0.02 FINAL [facility] [address] [place] [address] 210 [facility] [id number] 0 Phone: () - 03/13 CBC w/ auto diff MO % % 6.0 15.0 9.4 FINAL [facility] [address] [place] [address] 210 [facility] [phone] 0 Phone: () - 03/13 CBC w/ auto diff WBC K/uL 3.0 8.9 7.7 FINAL [facility] [address] [place] [address] 210 [facility] [phone] 0 Phone: () - 03/13 CBC w/ auto diff PLT K/uL 113.0 364.0 160 [facility]AL [facility] [address] [place] [address] 210 [facility] [phone] 0 Phone: () - 03/13 CBC w/ auto diff Augustus % % 43.0 74.0 69.5 FINAL [facility] [address] [place] [address] 210 [facility] [phone] 0 Phone: () - 03/13 CBC w/ auto diff LY % % 14.0 41.0 19.5 FINAL [facility] [address] [place] [address] 210 [facility] [phone] 0 Phone: () - 03/13 CBC w/ auto diff EO % % 0.0 7.0 0.9 FINAL Ruiz muñoz [facility], [address] [place] [address] [address] [place] [phone] 0 Phone: () - 03/13 CBC w/ auto diff BA % % 0.0 2.0 0.4 FINAL Ruiz muñoz [facility], [address] [place] [address] [address] [place] [phone] 0 Phone: () - 03/13 CBC w/ auto diff LY # K/uL 0.4 3.6 1.5 FINAL Ruiz muñoz [facility], [address] [place] [address] [address] [place] [phone] 0 Phone: () - 03/13 CBC w/ auto diff MO # K/uL 0.2 1.3 0.7 FINAL Ruiz muñoz [facility], [address] [place] [address] [address] [place] [phone] 0 Phone: () - 03/13 CBC w/ auto diff EO # K/uL 0.0 0.6 0.1 FINAL Ruiz muñoz [facility], [address] [place] [address] [address] [place] [phone] 0 Phone: () - 03/13 CBC w/ auto diff BA # K/uL 0.0 0.2 0.0 FINAL Ruiz muñoz [facility], [address] [place] [address] [address] [place] [phone] 0 Phone: () - 03/13 CBC w/ auto diff NRBC % #/100W BC 0.0 0.2 0.0 FINAL Ruiz muñoz [facility], [address] [place] [address] [address] [place] [phone] 0 Phone: () - 03/13 CBC w/ auto diff RBC M/uL 3.9 5.1 4.58 FINAL Ruiz muñoz [facility], [address] [place] [address] [address] [place] [phone] 0 Phone: () - 03/13 CBC w/ auto diff HCT % 35.0 48.0 45.2 FINAL Ruiz Terrazas [facility], [address] [place] [address] [address] [place] [phone] 0 Phone: () - 03/13 CBC w/ auto diff MCV fL 80.0 104.0 98.7 FINAL [facility], [address] [place] [address] 210 [facility] [phone] 0 Phone: () - 03/13 CBC w/ auto diff MCH pg 26.0 35.0 31.9 FINAL [facility], [address] [place] [address] [address] [place] [phone] 0 Phone: () - 03/13 CBC w/ auto diff MCHC g/dL 30.0 35.0 32.3 FINAL Ruiz Raya [facility], [address] [place] [address] [address] [place] [phone] 0 Phone: () - 03/13 CBC w/ auto diff MPV fL 9.5 13.4 9.7 FINAL [facility] [address] [place] [address] 210 [facility] [phone] 0 Phone: () - 03/13 CBC w/ auto diff RDW % 11.4 16.1 12.90 FINAL [facility], [address] [place] [address] 210 [facility] [phone] 0 Phone: () - 03/13 BCR/A BL1, p210 Resul t see interpr etation FINAL Ruiz Raya 03/13 Speci men Type edta whole blood FINAL Ruiz Raya 03/13 Final Diagn osis: SEE COMMENT S [...] all possible fusionfor ms. Please contact the [facility] or[facility] at [phone] with questions or if additiona ltesting is required. See the [facility] Laborator iesInterp retive Handbook for method details.T [...] its performan ce character isticsdet ermined by [facility] in a manner consisten t with CLIArequi rements. This test has not been cleared or approved bythe U.S. Food and Drug Administr ation.Jane t Performed by:[facility] Laborator [facility] - [address] [id number] Director: Michael Reid M.D. Ph.D.; CLIA# [id number] FINAL Ruiz Raya 09/11 PRIOR RESUL T Not Given FINAL Kennedy Unglaub [facility] [address] [place] [id number] 4 09/11 SOURC E: Periphe ral Blood FINAL Kennedy Rothlaub [facility] [address] [place] [id number] 4 09/11 BCR ABL1/ ABL1 % % 0.000 FINAL Kennedy Rothlaub [facility] [address] [place] [id number] 4 09/11 BCR ABL1/ ABL1 % (IS) % 0.000 FINAL Kennedy Bernalub [facility] [address] [place] [id number] 4 09/11 INTER PRETA TION see note [...] l informati on, please refer tohttp:// education .[employer]/faq/F AQ72(This link is being provided forinform ational/e ducationa l purposes only.)Ass ay sensitivi ty is at least 4.5-logs below baselineB CR-ABL1 transcrip t levels but is dependent onquantit y and quality of RNA used for testing and thecellul arity of the sample.Th is test was developed and its analytica lperforma nce character istics have been determine dby [facility] [place], [place].It has not been cleared or approved by the FDA. Thisassay has been validated pursuant to the CLIAregul ations and is used for clinical purposes. Meera drake, Ph.D., [facility] nical Director, Molecular Oncology FINAL [place] [facility], [facility] [address] [place] [id number] 4 09/11 P190 BCR ABL1 Not Detecte d FINAL [place] [facility] [address] [place] [id number] 4 09/11 P210 BCR ABL1 Not Detecte d FINAL [place] [facility] [address] [place] [id number] 4 09/11 CBC w/ auto diff WBC K/uL 3.0 8.9 5.7 FINAL [facility] [address] 210 [facility] [phone] 0 Phone: () - 09/11 CBC w/ auto diff HGB g/dL 11.3 15.2 13.8 FINAL [place] [facility] [address] 210 [place] [phone] 0 Phone: () - 09/11 CBC w/ auto diff PLT K/uL 113.0 364.0 167 FINAL [facility] [place] [facility] [address] [place] [phone] 0 Phone: () - 09/11 CBC w/ auto diff Augustus # (ANC) K/uL 1.6 6.6 3.7 FINAL Kennedy Carmonaot a [facility] - [place], [address] [place] [address] 210 [place] [phone] 0 Phone: () - 09/11 CBC w/ auto diff Augustus % % 43.0 74.0 64.2 FINAL Kennedy Carmonaot a [facility] - [place], [address] [place] [address] 210 [place] [phone] 0 Phone: () - 09/11 CBC w/ auto diff IG % % 0.0 0.5 0.2 FINAL Kennedy Carmonaot a [facility] - [place], [address] [place] [address] 210 [place] [phone] 0 Phone: () - 09/11 CBC w/ auto diff IG # K/uL 0.0 0.03 0.01 FINAL Kennedy Carmonaot a [facility] - [place], [address] [place] [address] [address] [place] [phone] 0 Phone: () - 09/11 CBC w/ auto diff LY % % 14.0 41.0 24.0 FINAL Kennedy Carmonaot a [facility] - [place], [address] [place] [address] [address] [place] [phone] 0 Phone: () - 09/11 CBC w/ auto diff MO % % 6.0 15.0 9.9 FINAL Kennedy Carmonaot a [facility] - [place], [address] [place] [address] [address] [place] [phone] 0 Phone: () - 09/11 CBC w/ auto diff EO % % 0.0 7.0 1.2 FINAL Kennedy Carmonaot a [facility] - [place], [address] [place] [address] [address] [place] [phone] 0 Phone: () - 09/11 CBC w/ auto diff BA % % 0.0 2.0 0.5 FINAL Kennedy Carmonaot a [facility] - [place], [address] [place] [address] [address] [place] [phone] 0 Phone: () - 09/11 CBC w/ auto diff LY # K/uL 0.4 3.6 1.4 FINAL Kennedy Carmonaot a [facility] - [place], [address] [place] [address] [address] [place] [phone] 0 Phone: () - 09/11 CBC w/ auto diff MO # K/uL 0.2 1.3 0.6 FINAL Kennedy Doloresub Mathewot a [facility], [address] [place] [address] [address] [place] [phone] 0 Phone: () - 09/11 CBC w/ auto diff EO # K/uL 0.0 0.6 0.1 FINAL Kennedy Doloresub Mathewot a [facility], [address] [place] [address] [address] [place] [phone] 0 Phone: () - 09/11 CBC w/ auto diff BA # K/uL 0.0 0.2 0.0 FINAL Kennedy Doloresub Mathewot a [facility], [address] [place] [address] [address] [place] [phone] 0 Phone: () - 09/11 CBC w/ auto diff NRBC % #/100W BC 0.0 0.2 0.0 FINAL Kennedy Doloresub Mathewot a [facility], [address] [place] [address] [address] [place] [phone] 0 Phone: () - 09/11 CBC w/ auto diff RBC M/uL 3.9 5.1 4.38 FINAL Kennedy Carmonaot a [facility], [address] [place] [address] [address] [place] [phone] 0 Phone: () - 09/11 CBC w/ auto diff HCT % 35.0 48.0 42.8 FINAL Kennedy Carmonaot a [facility], [address] [place] [address] [address] [place] [phone] 0 Phone: () - 09/11 CBC w/ auto diff MCV fL 80.0 104.0 97.7 FINAL Kennedy Jenna Carmonaot a [facility], [address] [place] [address] [address] [place] [phone] 0 Phone: () - 09/11 CBC w/ auto diff MCH pg 26.0 35.0 31.5 FINAL Kennedy Doloresub Mathewot a [facility], [address] [place] [address] [address] [place] [phone] 0 Phone: () - 09/11 CBC w/ auto diff MCHC g/dL 30.0 35.0 32.2 FINAL Kennedy Doloresub Mathewot a [facility], [address] [facility] 210 [facility] [phone] 0 Phone: () - 09/11 CBC w/ auto diff MPV fL 9.5 13.4 9.3 Low FINAL Kennedy Carmona toni [facility], [address] [facility] 210 [place] [phone] 0 Phone: () - 09/11 CBC w/ auto diff RDW % 11.4 16.1 12.70 FINAL Kennedy Carmona toni [facility], [address] [place] [address] 210 [place] [phone] 0 Phone: () - 09/11 CMP Album in g/dL 3.2 5.2 4.5 FINAL [place] [address] [phone] 0 Phone: () - 09/11 CMP Alkal ine phosp hatas e U/L 46.0 116.0 111 FINAL [place] [address] [phone] 0 Phone: () - 09/11 CMP ALT/S GPT U/L 7.0 40.0 22 FINAL [place] [address] [phone] 0 Phone: () - 09/11 CMP AST/S GOT U/L 13.0 40.0 20 FINAL [place] [address] [phone] 0 Phone: () - 09/11 CMP BUN mg/dL 9.0 23.0 10.0 FINAL [place] [address] [phone] 0 Phone: () - 09/11 CMP Calci um mg/dL 8.7 10.4 9.7 FINAL [place] [address] [phone] 0 Phone: () - 09/11 CMP Chlor rakan mmol/L 96.0 114.0 109 FINAL Kennedy Carmona toni [facility], [address] [phone] 0 Phone: () - 09/11 CMP CO2 [...] the 96 hour stability window. FINAL Kennedy Carmona toni [facility], [address] [phone] 0 Phone: () - 09/11 CMP Creat inine mg/dL 0.5 1.2 1.05 FINAL Kennedy Carmona toni [place] [address] [phone] 0 Phone: () - 09/11 CMP GFR estim ate ml/min /1.73m ^2 57.6 Low GFR is calculate d using the CKD-EPI equation. FINAL Kennedy Carmona toni [place] [address] [phone] 0 Phone: () - 09/11 CMP Gluco se mg/dL 73.0 126.0 104 FINAL Kennedy Carmona toni [place] [address] [phone] 0 Phone: () - 09/11 CMP Potas sium mmol/L 3.5 5.1 4.3 FINAL Kennedy Carmona toni [facility] [address] [phone] 0 Phone: () - 09/11 CMP Sodiu m mmol/L 136.0 145.0 145 FINAL Kennedy Carmona toni [facility] [address] [phone] 0 Phone: () - 09/11 CMP Bilir ubin, total mg/dL 0.3 1.2 0.9 FINAL Kennedy Carmonaot a [facility], [address] [place] [phone] 0 Phone: () - 09/11 CMP Total prote in g/dL 5.7 8.2 6.9 FINAL Kennedy Carmonaot a [facility] - [place], [address] [place] [phone] 0 Phone: () - 11/16 CBC w/ auto diff WBC K/uL 3.0 8.9 7.6 FINAL Nicole Terrazas a [facility] - [place], [address] [facility] [address] [place] [phone] 0 Phone: () - 11/16 CBC w/ auto diff HGB g/dL 11.3 15.2 13.4 FINAL Nicole Terrazas a [facility] - [place], [address] [facility] [address] [place] [phone] 0 Phone: () - 11/16 CBC w/ auto diff PLT K/uL 113.0 364.0 162 FINAL Nicole Terrazas a [facility] - [place], [address] [place] [phone] 0 Phone: () - 11/16 CBC w/ auto diff Augustus # (ANC) K/uL 1.6 6.6 6.7 High FINAL Nicole Terrazas a [facility] - [place], [address] [place] [phone] 0 Phone: () - 11/16 CBC w/ auto diff Augustus % % 43.0 74.0 88.7 High FINAL Nicole Terrazas a [facility] - [place], [address] [place] [phone] 0 Phone: () - 11/16 CBC w/ auto diff IG % % 0.0 0.5 0.7 High FINAL Nicole Carmonaot a [facility] - [place], [address] [place] [phone] 0 Phone: () - 11/16 CBC w/ auto diff IG # K/uL 0.0 0.03 0.05 High FINAL Nicole [place] [facility] [place], [address] [place] [phone] 0 Phone: () - 11/16 CBC w/ auto diff LY % % 14.0 41.0 8.8 Low FINAL Nicole Terrazas a [facility] - [place], [address] [place] [phone] 0 Phone: () - 11/16 CBC w/ auto diff MO % % 6.0 15.0 1.8 Low FINAL Nicole Terrazas a [facility] - [place], [address] [place] [phone] 0 Phone: () - 11/16 CBC w/ auto diff EO % % 0.0 7.0 0.0 FINAL Nicole Terrazas a [facility] - [place], [address] [place] [phone] 0 Phone: () - 11/16 CBC w/ auto diff BA % % 0.0 2.0 0.0 FINAL Nicole Terrazas a [facility] - [place], [address] [place] [phone] 0 Phone: () - 11/16 CBC w/ auto diff LY # K/uL 0.4 3.6 0.7 FINAL Nicole Terrazas a [facility] - [place], [address] [place] [phone] 0 Phone: () - 11/16 CBC w/ auto diff MO # K/uL 0.2 1.3 0.1 Low FINAL Nicole Terrazas a [facility] - [place], [address] [place] [phone] 0 Phone: () - 11/16 CBC w/ auto diff EO # K/uL 0.0 0.6 0.0 FINAL Nicole Carmonaot a [facility] - [place], [address] [place] [phone] 0 Phone: () - 11/16 CBC w/ auto diff BA # K/uL 0.0 0.2 0.0 FINAL Nicole Carmonaot a [facility] - [place], [address] [place] [phone] 0 Phone: () - 11/16 CBC w/ auto diff NRBC % #/100W BC 0.0 0.2 0.0 FINAL Nicole Terrazas a [facility] - [place], [address] [place] [phone] 0 Phone: () - 11/16 CBC w/ auto diff RBC M/uL 3.9 5.1 4.16 FINAL Nicole Terrazas a [facility] - [place], [address] [place] [phone] 0 Phone: () - 11/16 CBC w/ auto diff HCT % 35.0 48.0 39.7 FINAL Nicole Terrazas a [facility] - [place], [address] [place] [phone] 0 Phone: () - 11/16 CBC w/ auto diff MCV fL 80.0 104.0 95.4 FINAL Nicole muñoz [facility] - [place], [address] [place] [phone] 0 Phone: () - 11/16 CBC w/ auto diff MCH pg 26.0 35.0 32.2 FINAL Nicole muñoz [facility] - [place], [address] [place] [phone] 0 Phone: () - 11/16 CBC w/ auto diff MCHC g/dL 30.0 35.0 33.8 FINAL Nicole Terrazas a [facility] - [place], [address] [place] [phone] 0 Phone: () - 11/16 CBC w/ auto diff MPV fL 9.5 13.4 9.3 Low FINAL Nicole Carmonaot a [facility] - [place], [address] [place] [phone] 0 Phone: () - 11/16 CBC w/ auto diff RDW % 11.4 16.1 11.90 FINAL [facility], [address] [facility] [phone] 0 Phone: () - 11/16 CMP Album in g/dL 3.2 5.2 4.5 FINAL Nicole [facility] [address] [place] [address] [phone] 0 Phone: () - 11/16 CMP Alkal ine phosp hatas e U/L 46.0 116.0 91 FINAL [place] [address] [phone] 0 Phone: () - 11/16 CMP ALT/S GPT U/L 7.[address] 40[address] [facility] [place] [address] [address] [facility] [address] [phone] 0 Phone: () - 11/16 CMP AST/S GOT U/L 13.0 40.0 18 FINAL [place] [address] [address] [facility] [address] [phone] 0 Phone: () - 11/16 CMP BUN mg/dL 9.0 23.0 16.0 FINAL [place] [address] [address] [facility] [address] [phone] 0 Phone: () - 11/16 CMP Calci um mg/dL 8.7 10.4 9.8 FINAL [place] [address] [address] [facility] [address] [phone] 0 Phone: () - 11/16 CMP Chlor rakan mmol/L 96.0 114.0 109 FINAL [place] [address] [phone] 0 Phone: () - 11/16 CMP CO2 [...] 96 hour stability window. FINAL Nicole Terrazas [address] [phone] 0 Phone: () - 11/16 CMP Creat inine mg/dL 0.5 1.2 0.88 FINAL Nicole Carmona[address] [phone] 0 Phone: () - 11/16 CMP GFR estim ate ml/min /1.73m ^2 71.2 GFR is calculate d using the CKD-EPI equation. FINAL Nicole Carmona[address] [phone] 0 Phone: () - 11/16 CMP Gluco se mg/dL 73.0 126.0 152 High FINAL Nicole Carmona[address] [phone] 0 Phone: () - 11/16 CMP Potas sium mmol/L 3.5 5.1 4.2 FINAL Nicole Ya Mathew[address] [phone] 0 Phone: () - 11/16 CMP Sodiu m mmol/L 136.0 145.0 142 FINAL Nicole Carmona[address] [phone] 0 Phone: () - 11/16 CMP Bilir ubin, total mg/dL 0.3 1.2 0.6 FINAL Nicole Carmona[address] [phone] 0 Phone: () - 11/16 CMP Total prote in g/dL 5.7 8.2 6.8 FINAL [place] [address] [phone] 0 Phone: () - 11/16 iSTAT creat inine panel Creat inine , iSTAT mg/dl 0.6 1.3 0.9 FINAL Nicole muñoz [facility] - [place], [address] [facility] [address] [place] [phone] 0 Phone: () - 11/16 Xi hermosillo inine panel GFR estim ate ml/min /1.73m ^2 69.3 GFR is calculate d using the CKD-EPI equation. FINAL Nicole muñoz [facility] - [place], [address] [facility] [address] [place] [phone] 0 Phone: () - 11/21 CMP Album in g/dL 3.2 5.2 3.9 FINAL Nicole muñoz [facility], [facility] [address] [place] [address] [phone] 0 Phone: () - 11/21 CMP Alkal ine phosp hatas e U/L 46.0 116.0 90 FINAL Nicole muñoz [place] [address] [address] [facility] [address] [place] [address] [phone] 0 Phone: () - 11/21 CMP ALT/S GPT U/L 7.0 40.0 37 FINAL Nicole Terrazas [place] [address] [address] [facility] [address] [phone] 0 Phone: () - 11/21 CMP AST/S GOT U/L 13.0 40.0 31 FINAL Nicole muñoz [place] [address] [address] [facility] [address] [phone] 0 Phone: () - 11/21 CMP BUN mg/dL 9.0 23.0 13.0 FINAL Nicole muñoz [facility], [facility] N [facility] [address] [phone] 0 Phone: () - 11/21 CMP Calci um mg/dL 8.7 10.4 8.9 FINAL Nicole muñoz [place] [address] [phone] 0 Phone: () - 11/21 CMP Chlor rakan mmol/L 96.0 114.0 107 FINAL Nicole [place] [address] [address] [facility] [address] [phone] 0 Phone: () - 11/21 CMP CO2 [...] the 96 hour stability window. FINAL [facility], [address] [phone] 0 Phone: () - 11/21 CMP Creat inine mg/dL 0.5 1.2 0.83 FINAL Nicole [place] [address] [id number] 0 Phone: () - 11/21 CMP GFR estim ate ml/min /1.73m ^2 76.3 GFR is calculate d using the CKD-EPI equation. FINAL Nicole Ya [place] [address] [id number] 0 Phone: () - 11/21 CMP Gluco se mg/dL 73.0 126.0 99 FINAL Nicoledarius [place] [address] [id number] 0 Phone: () - 11/21 CMP Potas sium mmol/L 3.5 5.1 3.8 FINAL Nicole [place] [address] [id number] 0 Phone: () - 11/21 CMP Sodiu m mmol/L 136.0 145.0 142 [facility] [address] [id number] 0 Phone: () - 11/21 CMP Bilir ubin, total mg/dL 0.3 1.2 1.3 High [facility]AL [facility] [address] [id number] 0 Phone: () - 11/21 CMP Total prote in g/dL 5.7 8.2 6.0 FINAL Nicole [facility] [place], [address] [place] [phone] 0 Phone: () - 11/21 Smear revie w panel CBC Smear revie w comme nts Consist ent with reporte d results Abnorma l Lymphs present Large and-or giant platele ts present FINAL Nicole [facility] [place], [address] [place] [id number] 0 Phone: () - 11/21 CBC w/ auto diff WBC K/uL 3.0 8.9 1.0 Low FINAL Nicole [facility] [place], [address] [place] [id number] 0 Phone: () - 11/21 CBC w/ auto diff HGB g/dL 11.3 15.2 13.2 FINAL Nicole [facility] [place], [address] [place] [id number] 0 Phone: () - 11/21 CBC w/ auto diff PLT K/uL 113.0 364.0 47 Critica l hematol ogy result obtaine d Criti todd Low FINAL Nicole [facility] [place], [address] [place] [phone] 0 Phone: () - 11/21 CBC w/ auto diff Augustus # (ANC) K/uL 1.6 6.6 0.4 Critica l hematol ogy result obtaine d Criti todd Low FINAL Nicole [facility] [place], [address] [place] [id number] 0 Phone: () - 11/21 CBC w/ auto diff Augustus % % 43.0 74.0 34.7 Low FINAL Nicole [facility] [place], [address] [place] [id number] 0 Phone: () - 11/21 CBC w/ auto diff IG % % 0.0 0.5 1.9 High FINAL Nicole [facility] [place], [address] [place] [id number] 0 Phone: () - 11/21 CBC w/ auto diff IG # K/uL 0.0 0.03 0.02 FINAL Nicole [facility] [place], [address] [place] [id number] 0 Phone: () - 11/21 CBC w/ auto diff LY % % 14.0 41.0 56.7 High FINAL Nicole [facility] [place], [address] [place] [id number] 0 Phone: () - 11/21 CBC w/ auto diff MO % % 6.0 15.0 1.9 Low FINAL Nicole [facility] [place], [address] [place] [id number] 0 Phone: () - 11/21 CBC w/ auto diff EO % % 0.0 7.0 1.9 FINAL Nicole muñoz [facility] [place], [address] [place] [id number] 0 Phone: () - 11/21 CBC w/ auto diff BA % % 0.0 2.0 2.9 High FINAL Nicole [facility] [place], [address] [place] [id number] 0 Phone: () - 11/21 CBC w/ auto diff LY # K/uL 0.4 3.6 0.6 FINAL Nicole [facility] [place], [address] [place] [id number] 0 Phone: () - 11/21 CBC w/ auto diff MO # K/uL 0.2 1.3 0.0 Low FINAL Nicole [facility] [place], [address] [place] [id number] 0 Phone: () - 11/21 CBC w/ auto diff EO # K/uL 0.0 0.6 0.0 FINAL Nicole [facility] [place], [address] [place] [id number] 0 Phone: () - 11/21 CBC w/ auto diff BA # K/uL 0.0 0.2 0.0 FINAL Nicole [facility] [place], [address] [place] [id number] 0 Phone: () - 11/21 CBC w/ auto diff NRBC % #/100W BC 0.0 0.2 0.0 FINAL Nicole [facility] [place], [address] [place] [id number] 0 Phone: () - 11/21 CBC w/ auto diff RBC M/uL 3.9 5.1 4.07 FINAL Nicole muñoz [facility] - [place], [address] [place] [id number] 0 Phone: () - 11/21 CBC w/ auto diff HCT % 35.0 48.0 38.4 FINAL Nicole muñoz [facility] - [place], [address] [place] [id number] 0 Phone: () - 11/21 CBC w/ auto diff MCV fL 80.0 104.0 94.3 FINAL Nicole muñoz [facility] - [place], [address] [place] [id number] 0 Phone: () - 11/21 CBC w/ auto diff MCH pg 26.0 35.0 32.4 FINAL Nicole muñoz [facility] - [place], [address] [place] [id number] 0 Phone: () - 11/21 CBC w/ auto diff MCHC g/dL 30.0 35.0 34.4 FINAL Nicole [facility] [place], [address] [place] [id number] 0 Phone: () - 11/21 CBC w/ auto diff MPV fL 9.5 13.4 10.1 FINAL Nicole Carmonaot a [facility] - [place], [address] [place] [id number] 0 Phone: () - 11/21 CBC w/ auto diff RDW % 11.4 16.1 11.80 FINAL Nicole [facility] [place], [address] [place] [id number] 0 Phone: () - 11/21 CBC w/ auto diff Auto CBC comme nts Slide review to follow FINAL Nicole muñoz [facility] [place], [address] [place] [id number] 0 Phone: () - 11/27 CBC w/ auto diff WBC K/uL 3.0 8.9 32.0 High FINAL Nicole [facility] [place], [address] [place] [id number] 0 Phone: () - 11/27 CBC w/ auto diff HGB g/dL 11.3 15.2 13.3 FINAL Nicole muñoz [facility] - [place], [address] [place] [id number] 0 Phone: () - 11/27 CBC w/ auto diff PLT K/uL 113.0 364.0 87 Low FINAL Nicole muñoz [facility] - [place], [address] [place] [id number] 0 Phone: () - 11/27 CBC w/ auto diff Augustus # (ANC) K/uL 1.6 6.6 25.7 High FINAL Nicole mu[facility]oz [facility] - [place], [address] [place] [id number] 0 Phone: () - 11/27 CBC w/ auto diff Augustus % % 43.0 74.0 80.5 High FINAL Nicole Carmonaot a [facility] - [place], [address] [place] [id number] 0 Phone: () - 11/27 CBC w/ auto diff IG % % 0.0 0.5 7.6 High FINAL Nicole muñoz [facility] - [place], [address] [place] [id number] 0 Phone: () - 11/27 CBC w/ auto diff IG # K/uL 0.0 0.03 2.44 High FINAL Nicole muñoz [facility] - [place], [address] [place] [id number] 0 Phone: () - 11/27 CBC w/ auto diff LY % % 14.0 41.0 5.8 Low FINAL Nicole muñoz [facility] - [place], [address] [place] [id number] 0 Phone: () - 11/27 CBC w/ auto diff MO % % 6.0 15.0 6.1 FINAL Nicole muñoz [facility] - [place], [address] [place] [id number] 0 Phone: () - 11/27 CBC w/ auto diff EO % % 0.0 7.0 0.0 FINAL Nicole muñoz [facility] - [place], [address] [place] [id number] 0 Phone: () - 11/27 CBC w/ auto diff BA % % 0.0 2.0 0.0 FINAL Nicole mu[facility]oz [facility] - [place], [address] [place] [id number] 0 Phone: () - 11/27 CBC w/ auto diff LY # K/uL 0.4 3.6 1.8 FINAL Nicole mu[facility] - [place], [address] [place] [id number] 0 Phone: () - 11/27 CBC w/ auto diff MO # K/uL 0.2 1.3 2.0 High FINAL Nicole muñoz [facility] - [place], [address] [place] [id number] 0 Phone: () - 11/27 CBC w/ auto diff EO # K/uL 0.0 0.6 0.0 FINAL Nicole [facility] [place], [address] [place] [id number] 0 Phone: () - 11/27 CBC w/ auto diff BA # K/uL 0.0 0.2 0.0 FINAL Nicole mu[facility] - [place], [address] [place] [id number] 0 Phone: () - 11/27 CBC w/ auto diff NRBC % #/100W BC 0.0 0.2 0.3 High FINAL Nicole Felton Nini muñoz [facility] - [place], [address] [place] [id number] 0 Phone: () - 11/27 CBC w/ auto diff RBC M/uL 3.9 5.1 4.09 FINAL Nicole Ya Mathewdamaris muñoz [facility] - [place], [address] [place] [id number] 0 Phone: () - 11/27 CBC w/ auto diff HCT % 35.0 48.0 38.0 FINAL Nicole Felton Mathewdamaris muñoz [facility] - [place], [address] [place] [id number] 0 Phone: () - 11/27 CBC w/ auto diff MCV fL 80.0 104.0 92.9 FINAL Nicole Ya Mathewdamaris muñoz [facility] - [place], [address] [place] [id number] 0 Phone: () - 11/27 CBC w/ auto diff MCH pg 26.0 35.0 32.5 FINAL Nicole Ya Mathewdamaris muñoz [facility] - [place], [address] [place] [id number] 0 Phone: () - 11/27 CBC w/ auto diff MCHC g/dL 30.0 35.0 35.0 FINAL Nicole Felton mu[facility] - [place], [address] [place] [id number] 0 Phone: () - 11/27 CBC w/ auto diff MPV fL 9.5 13.4 9.1 Low FINAL Nicole mu[facility] - [place], [address] [place] [id number] 0 Phone: () - 11/27 CBC w/ auto diff RDW % 11.4 16.1 11.60 FINAL Nicole mu[facility] - [place], [address] [place] [id number] 0 Phone: () - 11/27 iSTAT creat inine panel Creat inine , iSTAT mg/dl 0.6 1.3 1.1 FINAL Nicole mu[facility]oz [facility] - [place], [address] [place] [id number] 0 Phone: () - 11/27 iSTAT creat inine panel GFR estim ate ml/min /1.73m ^2 54.4 Low GFR is calculate d using the CKD-EPI equation. FINAL Nicole mu[facility] - [place], [address] [place] [id number] 0 Phone: () - 11/27 iSTAT Na+/K +/Cl- panel Sodiu m, iSTAT mmol/L 138.0 146.0 137 Low Reference range adjusted 0 with implement ation of I-Stat 8+ cartridge . FINAL Nicole muñoz [facility] [place], [address] [place] [id number] 0 Phone: () - 11/27 iSTAT Na+/K +/Cl- panel Potas sium, iSTAT mmol/L 3.5 4.9 3.4 Low Reference range adjusted 0 with implement ation of I-Stat 8+ cartridge . FINAL Nicole mu[facility] - [place], [address] [place] [id number] 0 Phone: () - 11/27 iSTAT Na+/K +/Cl- panel Chlor rakan, iSTAT mmol/L 98.0 109.0 99 Reference range adjusted 0 with implement ation of I-Stat 8+ cartridge . FINAL Nicole mu[facility]oz [facility] [place], [address] [facility] [address] [facility] [place] [id number] 0 Phone: () - 12/07 iSTAT creat inine panel Creat inine , iSTAT mg/dl 0.6 1.3 0.8 FINAL Tiara mu[facility]oz [facility] - [place], [address] [facility] [address] [facility] [place] [id number] 0 Phone: () - 12/07 iSTAT creat inine panel GFR estim ate ml/min /1.73m ^2 79.8 GFR is calculate d using the CKD-EPI equation. FINAL Tiara muñoz [facility] - [place], [address] [facility] [address] [facility] [place] [id number] 0 Phone: () - 12/07 CMP Album in g/dL 3.2 5.2 3.9 FINAL Tiara muñoz [facility], [address] [facility] [address] [place] [address] [id number] 0 Phone: () - 12/07 CMP Alkal ine phosp hatas e U/L 46.0 116.0 97 FINAL Tiara muñoz [facility], [address] [place] [address] [id number] 0 Phone: () - 12/07 CMP ALT/S GPT U/L 7.0 40.0 27 FINAL [facility], [address] [facility] [id number] 0 Phone: () - 12/07 CMP AST/S GOT U/L 13.0 40.0 17 FINAL Tiara muñoz [facility], [address] [place] [address] [id number] 0 Phone: () - 12/07 CMP BUN mg/dL 9.0 23.0 12.0 FINAL Tiara [place] [address] [address] [facility] [address] [facility] [id number] 0 Phone: () - 12/07 CMP Calci um mg/dL 8.7 10.4 9.8 FINAL Tiara [place] [address] [address] [facility] [address] [facility] [id number] 0 Phone: () - 12/07 CMP Chlor rakan mmol/L 96.0 114.0 110 FINAL Tiara [place] [address] [address] [facility] [address] [facility] [id number] 0 Phone: () - 12/07 CMP CO2 [...] of the 96 hour stability window. FINAL [place] [address] [id number] 0 Phone: () - 12/07 CMP Creat inine mg/dL 0.5 1.2 0.89 FINAL [place] [address] [id number] 0 Phone: () - 12/07 CMP GFR estim ate ml/min /1.73m ^2 70.2 GFR is calculate d using the CKD-EPI equation. FINAL [place] [address] [id number] 0 Phone: () - 12/07 CMP Gluco se mg/dL 73.0 126.0 152 High FINAL [place] [address] [address] [facility] [address] [facility] [id number] 0 Phone: () - 12/07 CMP Potas sium mmol/L 3.5 5.1 4.3 FINAL [place] [address] [id number] 0 Phone: () - 12/07 CMP Sodiu m mmol/L 136.0 145.0 145 FINAL Tiara Carmonaot [facility], [address] [place] [id number] 0 Phone: () - 12/07 CMP Bilir ubin, total mg/dL 0.3 1.2 0.6 FINAL Tiara Carmonaot a [facility], [address] [facility] [id number] 0 Phone: () - 12/07 CMP Total prote in g/dL 5.7 8.2 5.9 FINAL Tiara Carmonaot a [facility], [address] [place] [id number] 0 Phone: () - 12/07 CBC w/ auto diff WBC K/uL 3.0 8.9 17.1 High FINAL Tiara Carmonaot a [facility] - [place], [address] [facility] [address] [place] [id number] 0 Phone: () - 12/07 CBC w/ auto diff HGB g/dL 11.3 15.2 10.9 Low FINAL Tiara Carmonaot a [facility] - [place], [address] [facility] [address] [place] [id number] 0 Phone: () - 12/07 CBC w/ auto diff PLT K/uL 113.0 364.0 157 FINAL Tiara Carmonaot a [facility] - [place], [address] [place] [id number] 0 Phone: () - 12/07 CBC w/ auto diff Augustus # (ANC) K/uL 1.6 6.6 15.3 High FINAL Tiara Carmonaot a [facility] - [place], [address] [place] [id number] 0 Phone: () - 12/07 CBC w/ auto diff Augustus % % 43.0 74.0 89.4 High FINAL Tiara Carmonaot a [facility] - [place], [address] [place] [id number] 0 Phone: () - 12/07 CBC w/ auto diff IG % % 0.0 0.5 1.8 High FINAL Tiara Carmonaot a [facility] - [place], [address] [place] [id number] 0 Phone: () - 12/07 CBC w/ auto diff IG # K/uL 0.0 0.03 0.30 High FINAL Tiara Carmonaot a [facility] - [place], [address] [place] [id number] 0 Phone: () - 12/07 CBC w/ auto diff LY % % 14.0 41.0 5.2 Low FINAL Tiara Carmonaot a [facility] - [place], [address] [place] [id number] 0 Phone: () - 12/07 CBC w/ auto diff MO % % 6.0 15.0 3.5 Low FINAL Tiara Carmonaot a [facility] - [place], [address] [facility] [address] [place] [id number] 0 Phone: () - 12/07 CBC w/ auto diff EO % % 0.0 7.0 0.0 FINAL Tiara Carmonaot a [facility] - [place], [address] [facility] [address] [place] [id number] 0 Phone: () - 12/07 CBC w/ auto diff BA % % 0.0 2.0 0.1 FINAL Tiara Carmonaot a [facility] - [place], [address] [place] [id number] 0 Phone: () - 12/07 CBC w/ auto diff LY # K/uL 0.4 3.6 0.9 FINAL Tiara Carmonaot a [facility] - [place], [address] [place] [id number] 0 Phone: () - 12/07 CBC w/ auto diff MO # K/uL 0.2 1.3 0.6 FINAL Tiara Carmonaot a [facility] - [place], [address] [place] [id number] 0 Phone: () - 12/07 CBC w/ auto diff EO # K/uL 0.0 0.6 0.0 FINAL Tiara muñoz [facility] - [place], [address] [facility] [address] [place] [id number] 0 Phone: () - 12/07 CBC w/ auto diff BA # K/uL 0.0 0.2 0.0 FINAL Tiara muñoz [facility] - [place], [address] [facility] [address] [place] [id number] 0 Phone: () - 12/07 CBC w/ auto diff NRBC % #/100W BC 0.0 0.2 0.0 FINAL Tiara muñoz [facility] - [place], [address] [facility] [address] [place] [id number] 0 Phone: () - 12/07 CBC w/ auto diff RBC M/uL 3.9 5.1 3.37 Low FINAL Tiara mu[facility]oz [facility] - [place], [address] [facility] [address] [place] [id number] 0 Phone: () - 12/07 CBC w/ auto diff HCT % 35.0 48.0 32.8 Low FINAL Tiara muñoz [facility] - [place], [address] [facility] [address] [place] [id number] 0 Phone: () - 12/07 CBC w/ auto diff MCV fL 80.0 104.0 97.3 FINAL Tiara muñoz [facility] - [place], [address] [facility] [address] [place] [id number] 0 Phone: () - 12/07 CBC w/ auto diff MCH pg 26.0 35.0 32.3 FINAL Tiara Terrazas [facility] - [place], [address] [facility] [address] [place] [id number] 0 Phone: () - 12/07 CBC w/ auto diff MCHC g/dL 30.0 35.0 33.2 FINAL Tiara Terrazas [facility] - [place], [address] [place] [id number] 0 Phone: () - 12/07 CBC w/ auto diff MPV fL 9.5 13.4 8.9 Low FINAL Tiara Carmonaot a [facility] - [place], [address] [place] [id number] 0 Phone: () - 12/07 CBC w/ auto diff RDW % 11.4 16.1 12.70 FINAL Tiara Carmonaot a [facility] - [place], [address] [place] [id number] 0 Phone: () - 12/12 iSTAT Na+/K +/Cl- panel Sodiu m, iSTAT mmol/L 138.0 146.0 137 Low Reference range adjusted 0 with implement ation of I-Stat 8+ cartridge . FINAL Nicole Ya Nini mu[facility]oz [facility] - [place], [address] [place] [id number] 0 Phone: () - 12/12 iSTAT Na+/K +/Cl- panel Potas sium, iSTAT mmol/L 3.5 4.9 3.9 Reference range adjusted 0 with implement ation of I-Stat 8+ cartridge . FINAL Nicole mu[facility]oz [facility] - [place], [address] [place] [id number] 0 Phone: () - 12/12 iSTAT Na+/K +/Cl- panel Chlor rakan, iSTAT mmol/L 98.0 109.0 99 Reference range adjusted 0 with implement ation of I-Stat 8+ cartridge . FINAL Nicole mu[facility]oz [facility] - [place], [address] [place] [id number] 0 Phone: () - 12/12 CBC w/ auto diff WBC K/uL 3.0 8.9 2.0 Low FINAL Nicole Ya Nini mu[facility]oz [facility] - [place], [address] [place] [id number] 0 Phone: () - 12/12 CBC w/ auto diff HGB g/dL 11.3 15.2 11.2 Low FINAL Nicole Terrazas [facility] - [place], [address] [place] [id number] 0 Phone: () - 12/12 CBC w/ auto diff PLT K/uL 113.0 364.0 27 Critica l hematol ogy result obtaine d Criti todd Low FINAL Nicole [facility] - [place], [address] [place] [id number] 0 Phone: () - 12/12 CBC w/ auto diff Plate let, immat ure, fract ion % 0.9 11.2 7.0 FINAL Nicole Terrazas [facility] - [place], [address] [place] [id number] 0 Phone: () - 12/12 CBC w/ auto diff Augustus # (ANC) K/uL 1.6 6.6 1.1 Low FINAL Nicole [facility] - [place], [address] [place] [id number] 0 Phone: () - 12/12 CBC w/ auto diff Augustus % % 43.0 74.0 56.0 FINAL Nicole Terrazas [facility] - [place], [address] [place] [id number] 0 Phone: () - 12/12 CBC w/ auto diff IG % % 0.0 0.5 3.0 High FINAL Nicole Terrazas [facility] - [place], [address] [place] [id number] 0 Phone: () - 12/12 CBC w/ auto diff IG # K/uL 0.0 0.03 0.06 High FINAL Nicole [facility] - [place], [address] [place] [id number] 0 Phone: () - 12/12 CBC w/ auto diff LY % % 14.0 41.0 35.5 FINAL Nicole Carmonaot [facility] - [place], [address] [place] [id number] 0 Phone: () - 12/12 CBC w/ auto diff MO % % 6.0 15.0 2.0 Low FINAL Nicole Carmonaot [facility] - [place], [address] [place] [id number] 0 Phone: () - 12/12 CBC w/ auto diff EO % % 0.0 7.0 1.0 FINAL Nicole Carmonaot [facility] - [place], [address] [place] [id number] 0 Phone: () - 12/12 CBC w/ auto diff BA % % 0.0 2.0 2.5 High FINAL Nicole Carmonaot [facility] - [place], [address] [place] [id number] 0 Phone: () - 12/12 CBC w/ auto diff LY # K/uL 0.4 3.6 0.7 FINAL Nicole Carmonaot [facility] - [place], [address] [place] [id number] 0 Phone: () - 12/12 CBC w/ auto diff MO # K/uL 0.2 1.3 0.0 Low FINAL Nicole Carmonaot [facility] - [place], [address] [place] [id number] 0 Phone: () - 12/12 CBC w/ auto diff EO # K/uL 0.0 0.6 0.0 FINAL Nicole Carmonaot [facility] - [place], [address] [place] [id number] 0 Phone: () - 12/12 CBC w/ auto diff BA # K/uL 0.0 0.2 0.1 FINAL Nicole Carmonaot [facility] - [place], [address] [place] [id number] 0 Phone: () - 12/12 CBC w/ auto diff NRBC % #/100W BC 0.0 0.2 1.0 High FINAL Nicole Ya Nini mu[facility]oz [facility] - [place], [address] [place] [id number] 0 Phone: () - 12/12 CBC w/ auto diff RBC M/uL 3.9 5.1 3.51 Low FINAL Nicole Ya Nini mu[facility]oz [facility] - [place], [address] [place] [id number] 0 Phone: () - 12/12 CBC w/ auto diff HCT % 35.0 48.0 33.7 Low FINAL Nicole Ya Nini mu[facility]oz [facility] - [place], [address] [place] [id number] 0 Phone: () - 12/12 CBC w/ auto diff MCV fL 80.0 104.0 96.0 FINAL Nicole Ya Mathewdamaris muñoz [facility] - [place], [address] [place] [id number] 0 Phone: () - 12/12 CBC w/ auto diff MCH pg 26.0 35.0 31.9 FINAL Nicole Ya Nini mu[facility]oz [facility] - [place], [address] [place] [id number] 0 Phone: () - 12/12 CBC w/ auto diff MCHC g/dL 30.0 35.0 33.2 FINAL Nicole Ya Mathewdamaris muñoz [facility] - [place], [address] [place] [id number] 0 Phone: () - 12/12 CBC w/ auto diff MPV fL 9.5 13.4 11.1 FINAL Nicole Ya Mathewdamaris mu[facility]oz [facility] - [place], [address] [place] [id number] 0 Phone: () - 12/12 CBC w/ auto diff RDW % 11.4 16.1 13.00 FINAL Nicole Ya Mathewdamaris [facility] - [place], [address] [place] [id number] 0 Phone: () - 12/27 CBC w/ auto diff WBC K/uL 3.0 8.9 6.3 FINAL Niocle muñoz [facility] - [place], [address] [facility] [address] [place] [id number] 0 Phone: () - 12/27 CBC w/ auto diff HGB g/dL 11.3 15.2 10.2 Low FINAL Nicole mu[facility]oz [facility] - [place], [address] [facility] [address] [place] [id number] 0 Phone: () - 12/27 CBC w/ auto diff PLT K/uL 113.0 364.0 108 Low FINAL Nicole Ya Nini mu[facility]oz [facility] - [place], [address] [facility] [address] [place] [id number] 0 Phone: () - 12/27 CBC w/ auto diff Augustus # (ANC) K/uL 1.6 6.6 3.8 FINAL Nicole Felton Nini mu[facility]oz [facility] - [place], [address] [facility] [address] [place] [id number] 0 Phone: () - 12/27 CBC w/ auto diff Augustus % % 43.0 74.0 60.1 FINAL Nicole Felton Nini muñoz [facility] - [place], [address] [facility] [address] [place] [id number] 0 Phone: () - 12/27 CBC w/ auto diff IG % % 0.0 0.5 0.6 High FINAL Nicole Ya Nini mu[facility] - [place], [address] [place] [id number] 0 Phone: () - 12/27 CBC w/ auto diff IG # K/uL 0.0 0.03 0.04 High FINAL Nicole Terrazas a [facility] - [place], [address] [place] [id number] 0 Phone: () - 12/27 CBC w/ auto diff LY % % 14.0 41.0 25.1 FINAL Nicole Ya Nini mu[facility]oz [facility] - [place], [address] [place] [id number] 0 Phone: () - 12/27 CBC w/ auto diff MO % % 6.0 15.0 13.7 FINAL Nicole Terrazas [facility] - [place], [address] [place] [phone] 0 Phone: () - 12/27 CBC w/ auto diff EO % % 0.0 7.0 0.2 FINAL Nicole Terrazas [facility] - [place], [address] [place] [phone] 0 Phone: () - 12/27 CBC w/ auto diff BA % % 0.0 2.0 0.3 FINAL Nicole Terrazas [facility] - [place], [address] [place] [phone] 0 Phone: () - 12/27 CBC w/ auto diff LY # K/uL 0.4 3.6 1.6 FINAL Nicole muñoz [facility] - [place], [address] [place] [id number] 0 Phone: () - 12/27 CBC w/ auto diff MO # K/uL 0.2 1.3 0.9 FINAL Nicole muñoz [facility] - [place], [address] [place] [id number] 0 Phone: () - 12/27 CBC w/ auto diff EO # K/uL 0.0 0.6 0.0 FINAL Nicole Terrazas [facility] - [place], [address] [place] [id number] 0 Phone: () - 12/27 CBC w/ auto diff BA # K/uL 0.0 0.2 0.0 FINAL Nicole Terrazas [facility] - [place], [address] [place] [id number] 0 Phone: () - 12/27 CBC w/ auto diff NRBC % #/100W BC 0.0 0.2 0.0 FINAL Nicole Carmonaot [facility] - [place], [address] [place] [id number] 0 Phone: () - 12/27 CBC w/ auto diff RBC M/uL 3.9 5.1 3.18 Low FINAL Nicole Carmonaot [facility] - [place], [address] [place] [id number] 0 Phone: () - 12/27 CBC w/ auto diff HCT % 35.0 48.0 32.2 Low FINAL Nicole Carmonaot [facility] - [place], [address] [place] [id number] 0 Phone: () - 12/27 CBC w/ auto diff MCV fL 80.0 104.0 101.3 FINAL Nicole Carmonaot [facility] - [place], [address] [place] [phone] 0 Phone: () - 12/27 CBC w/ auto diff MCH pg 26.0 35.0 32.1 FINAL Nicole Carmonaot [facility] - [place], [address] [place] [id number] 0 Phone: () - 12/27 CBC w/ auto diff MCHC g/dL 30.0 35.0 31.7 FINAL Nicole Carmonaot [facility] - [place], [address] [place] [id number] 0 Phone: () - 12/27 CBC w/ auto diff MPV fL 9.5 13.4 8.8 Low FINAL Nicole Carmonaot [facility] - [place], [address] [place] [id number] 0 Phone: () - 12/27 CBC w/ auto diff RDW % 11.4 16.1 15.80 FINAL Nicole Carmonaot [facility] - [place], [address] [place] [id number] 0 Phone: () - 12/27 iSTAT creat inine panel Creat inine , iSTAT mg/dl 0.6 1.3 1.0 FINAL Nicole muñoz [facility] - [place], [address] [facility] [address] [facility] [place] [id number] 0 Phone: () - 12/27 iSTAT creat inine panel GFR estim ate ml/min /1.73m ^2 61.0 GFR is calculate d using the CKD-EPI equation. FINAL Nicole muñoz [facility] - [place], [address] [facility] [address] [facility] [place] [phone] 0 Phone: () - 12/27 CMP Album in g/dL 3.2 5.2 3.7 FINAL Nicole muñoz [facility] [address] [facility] [address] [place] [address] [phone] 0 Phone: () - 12/27 CMP Alkal ine phosp hatas e U/L 46.0 116.0 94 FINAL Nicole muñoz [place] [address] [id number] 0 Phone: () - 12/27 CMP ALT/S GPT U/L 7.0 40.0 33 FINAL Nicole muñoz [place] [address] [id number] 0 Phone: () - 12/27 CMP AST/S GOT U/L 13.0 40.0 21 FINAL Nicole muñoz [place] [address] [id number] 0 Phone: () - 12/27 CMP BUN mg/dL 9.0 23.0 8.0 Low FINAL Nicole muñoz [place] [address] [id number] 0 Phone: () - 12/27 CMP Calci um mg/dL 8.7 10.4 8.5 Low FINAL Nicole muñoz [place] [address] [address] [facility] [address] [id number] 0 Phone: () - 12/27 CMP Chlor rakan mmol/L 96.0 114.0 114 FINAL Nicole Ya [place] [address] [id number] 0 Phone: () - 12/27 CMP CO2 [...] 96 hour stability window. FINAL Nicole Terrazas [place] [address] [id number] 0 Phone: () - 12/27 CMP Creat inine mg/dL 0.5 1.2 0.89 FINAL Nicole muñoz [place] [address] [id number] 0 Phone: () - 12/27 CMP GFR estim ate ml/min /1.73m ^2 70.1 GFR is calculate d using the CKD-EPI equation. FINAL Nicole muñoz [place] [address] [id number] 0 Phone: () - 12/27 CMP Gluco se mg/dL 73.0 126.0 92 FINAL Nicole muñoz [place] [address] [id number] 0 Phone: () - 12/27 CMP Potas sium mmol/L 3.5 5.1 4.3 FINAL Nicole muñoz [place] [address] [id number] 0 Phone: () - 12/27 CMP Sodiu m mmol/L 136.0 145.0 145 FINAL Nicole Carmona toni [place] [address] [id number] 0 Phone: () - 12/27 CMP Bilir ubin, total mg/dL 0.3 1.2 0.5 FINAL Nicole muoñz [place] [address] [id number] 0 Phone: () - 12/27 CMP Total prote in g/dL 5.7 8.2 5.5 Low FINAL Nicole muñoz [facility] - [place], [address] [place] [id number] 0 Phone: () - 01/18 iSTAT creat inine panel Creat inine , iSTAT mg/dl 0.6 1.3 0.8 FINAL Nicole muñoz [facility] - [place], [address] [place] [id number] 0 Phone: () - 01/18 iSTAT creat inine panel GFR estim ate ml/min /1.73m ^2 79.7 GFR is calculate d using the CKD-EPI equation. FINAL Nicole muñoz [facility] - [place], [address] [place] [id number] 0 Phone: () - 01/18 CBC w/ auto diff WBC K/uL 3.0 8.9 12.6 High FINAL Nicole muñoz [facility] - [place], [address] [place] [id number] 0 Phone: () - 01/18 CBC w/ auto diff HGB g/dL 11.3 15.2 9.7 Low FINAL Nicole muñoz [facility] - [place], [address] [place] [id number] 0 Phone: () - 01/18 CBC w/ auto diff PLT K/uL 113.0 364.0 124 FINAL Nicole muñoz [facility] - [place], [address] [place] [id number] 0 Phone: () - 01/18 CBC w/ auto diff Augustus # (ANC) K/uL 1.6 6.6 10.7 High FINAL Nicole Terrazas [facility] - [place], [address] [place] [id number] 0 Phone: () - 01/18 CBC w/ auto diff Augustus % % 43.0 74.0 84.3 High FINAL Nicole Ya [place] [facility] - [place], [address] [place] [id number] 0 Phone: () - 01/18 CBC w/ auto diff IG % % 0.0 0.5 4.4 High FINAL Nicole Terrazas [facility] - [place], [address] [place] [id number] 0 Phone: () - 01/18 CBC w/ auto diff IG # K/uL 0.0 0.03 0.56 High FINAL Nicole Terrazas [facility] - [place], [address] [place] [id number] 0 Phone: () - 01/18 CBC w/ auto diff LY % % 14.0 41.0 8.5 Low FINAL Nicole Terrazas [facility] - [place], [address] [place] [id number] 0 Phone: () - 01/18 CBC w/ auto diff MO % % 6.0 15.0 2.6 Low FINAL Nicole Terrazas [facility] - [place], [address] [place] [id number] 0 Phone: () - 01/18 CBC w/ auto diff EO % % 0.0 7.0 0.0 FINAL Nicole Terrazas [facility] - [place], [address] [place] [id number] 0 Phone: () - 01/18 CBC w/ auto diff BA % % 0.0 2.0 0.2 FINAL Nicole Terrazas [facility] - [place], [address] [place] [id number] 0 Phone: () - 01/18 CBC w/ auto diff LY # K/uL 0.4 3.6 1.1 FINAL Nicole Carmonaot [facility] - [place], [address] [place] [id number] 0 Phone: () - 01/18 CBC w/ auto diff MO # K/uL 0.2 1.3 0.3 FINAL Nicole Carmonaot [facility] - [place], [address] [place] [id number] 0 Phone: () - 01/18 CBC w/ auto diff EO # K/uL 0.0 0.6 0.0 FINAL Nicole Carmonaot [facility] - [place], [address] [place] [id number] 0 Phone: () - 01/18 CBC w/ auto diff BA # K/uL 0.0 0.2 0.0 FINAL Nicole Carmonaot [facility] - [place], [address] [place] [id number] 0 Phone: () - 01/18 CBC w/ auto diff NRBC % #/100W BC 0.0 0.2 0.5 High FINAL Nicole Carmonaot [facility] - [place], [address] [place] [id number] 0 Phone: () - 01/18 CBC w/ auto diff RBC M/uL 3.9 5.1 2.85 Low FINAL Nicole Carmonaot [facility] - [place], [address] [place] [id number] 0 Phone: () - 01/18 CBC w/ auto diff HCT % 35.0 48.0 29.8 Low FINAL Nicole Carmonaot [facility] - [place], [address] [place] [id number] 0 Phone: () - 01/18 CBC w/ auto diff MCV fL 80.0 104.0 104.6 High FINAL Nicole Carmonaot [facility] - [place], [address] [place] [id number] 0 Phone: () - 01/18 CBC w/ auto diff MCH pg 26.0 35.0 34.0 FINAL Nicole Carmonaot [facility] - [place], [address] [place] [id number] 0 Phone: () - 01/18 CBC w/ auto diff MCHC g/dL 30.0 35.0 32.6 FINAL Nicole muñoz [facility] - [place], [address] [facility] [address] [place] [id number] 0 Phone: () - 01/18 CBC w/ auto diff MPV fL 9.5 13.4 9.0 Low FINAL Nicole muñoz [facility] - [place], [address] [facility] [address] [place] [id number] 0 Phone: () - 01/18 CBC w/ auto diff RDW % 11.4 16.1 19.00 High FINAL Nicole muñoz [facility] - [place], [address] [facility] [address] [facility] [place] [id number] 0 Phone: () - 01/18 CMP Album in g/dL 3.2 5.2 3.7 FINAL Nicole muñoz [facility], [address] [place] [address] [id number] 0 Phone: () - 01/18 CMP Alkal ine phosp hatas e U/L 46.0 116.0 94 FINAL Nicole Carmona a [facility], [address] [place] [address] [id number] 0 Phone: () - 01/18 CMP ALT/S GPT U/L 7.0 40.0 33 FINAL Nicole Carmona a [facility], [address] [place] [address] [id number] 0 Phone: () - 01/18 CMP AST/S GOT U/L 13.0 40.0 18 FINAL Nicole Terrazas a [facility], [address] [place] [id number] 0 Phone: () - 01/18 CMP BUN mg/dL 9.0 23.0 10.0 FINAL Nicole Carmona a [facility], [address] [facility] [id number] 0 Phone: () - 01/18 CMP Calci um mg/dL 8.7 10.4 9.0 FINAL Nicole Carmona a [facility], [address] [id number] 0 Phone: () - 01/18 CMP Chlor rakan mmol/L 96.0 114.0 108 FINAL Nicole muñoz [place] [address] [id number] 0 Phone: () - 01/18 CMP CO2 [...] 96 hour stability window. FINAL Nicole muñoz [address] [id number] 0 Phone: () - 01/18 CMP Creat inine mg/dL 0.5 1.2 0.80 FINAL Nicole muñoz [address] [id number] 0 Phone: () - 01/18 CMP GFR estim ate ml/min /1.73m ^2 79.7 GFR is calculate d using the CKD-EPI equation. FINAL Nicole muñoz [place] [address] [id number] 0 Phone: () - 01/18 CMP Gluco se mg/dL 73.0 126.0 156 High FINAL Nicole muñoz [place] [address] [id number] 0 Phone: () - 01/18 CMP Potas sium mmol/L 3.5 5.1 4.7 FINAL [place] [address] [id number] 0 Phone: () - 01/18 CMP Sodiu m mmol/L 136.0 145.0 145 FINAL Nicole muñoz [place] [address] [id number] 0 Phone: () - 01/18 CMP Bilir ubin, total mg/dL 0.3 1.2 0.5 FINAL Nicole muñoz [facility] - [place], [address] [place] [id number] 0 Phone: () - 01/18 CMP Total prote in g/dL 5.7 8.2 5.6 Low FINAL Nicole muñoz [facility] - [place], [address] [place] [id number] 0 Phone: () - 01/29 iSTAT Na+/K +/Cl- panel Sodiu m, iSTAT mmol/L 138.0 146.0 134 Low Reference range adjusted 0 with implement ation of I-Stat 8+ cartridge . FINAL Nicole muñoz [facility] - [place], [address] [facility] [facility] [address] [place] [id number] 0 Phone: () - 01/29 iSTAT Na+/K +/Cl- panel Potas sium, iSTAT mmol/L 3.5 4.9 3.4 Low Reference range adjusted 0 with implement ation of I-Stat 8+ cartridge . FINAL Nicole muñoz [facility] - [place], [address] [facility] [address] [place] [id number] 0 Phone: () - 01/29 iSTAT Na+/K +/Cl- panel Chlor rakan, iSTAT mmol/L 98.0 109.0 97 Low Reference range adjusted 0 with implement ation of I-Stat 8+ cartridge . FINAL Nicole muñoz [facility] - [place], [address] [place] [id number] 0 Phone: () - 01/29 CBC w/ auto diff WBC K/uL 3.0 8.9 19.0 High FINAL Nicole muñoz [facility] - [place], [address] [place] [id number] 0 Phone: () - 01/29 CBC w/ auto diff HGB g/dL 11.3 15.2 8.8 Low FINAL Nicoel muñoz [facility] - [place], [address] [place] [id number] 0 Phone: () - 01/29 CBC w/ auto diff PLT K/uL 113.0 364.0 59 Low FINAL Nicole Carmonaot a [facility] - [place], [address] [place] [id number] 0 Phone: () - 01/29 CBC w/ auto diff Augustus # (ANC) K/uL 1.6 6.6 16.7 High FINAL Nicole Carmonaot a [facility] - [place], [address] [place] [id number] 0 Phone: () - 01/29 CBC w/ auto diff Augustus % % 43.0 74.0 88.0 High FINAL Nicole Ya Mathewot a [facility] - [place], [address] [place] [id number] 0 Phone: () - 01/29 CBC w/ auto diff IG % % 0.0 0.5 1.9 High FINAL Nicole Ya Nini a [facility] - [place], [address] [place] [id number] 0 Phone: () - 01/29 CBC w/ auto diff IG # K/uL 0.0 0.03 0.36 High FINAL Nicole Ya Nini a [facility] - [place], [address] [place] [id number] 0 Phone: () - 01/29 CBC w/ auto diff LY % % 14.0 41.0 5.1 Low FINAL Nicole Carmonaot a [facility] - [place], [address] [place] [id number] 0 Phone: () - 01/29 CBC w/ auto diff MO % % 6.0 15.0 4.8 Low FINAL Nicole Carmonaot a [facility] - [place], [address] [place] [id number] 0 Phone: () - 01/29 CBC w/ auto diff EO % % 0.0 7.0 0.0 FINAL Nicole Carmonaot a [facility] - [place], [address] [place] [id number] 0 Phone: () - 01/29 CBC w/ auto diff BA % % 0.0 2.0 0.2 FINAL Nicole Terrazas [facility] - [place], [address] [place] [id number] 0 Phone: () - 01/29 CBC w/ auto diff LY # K/uL 0.4 3.6 1.0 FINAL Nicole Terrazas [facility] - [place], [address] [place] [id number] 0 Phone: () - 01/29 CBC w/ auto diff MO # K/uL 0.2 1.3 0.9 FINAL Nicole Terrazas [facility] - [place], [address] [place] [id number] 0 Phone: () - 01/29 CBC w/ auto diff EO # K/uL 0.0 0.6 0.0 FINAL Nicole Terrazas [facility] - [place], [address] [place] [id number] 0 Phone: () - 01/29 CBC w/ auto diff BA # K/uL 0.0 0.2 0.0 FINAL Nicole Terrazas [facility] - [place], [address] [place] [id number] 0 Phone: () - 01/29 CBC w/ auto diff NRBC % #/100W BC 0.0 0.2 0.0 FINAL Nicole Terrazas [facility] - [place], [address] [place] [id number] 0 Phone: () - 01/29 CBC w/ auto diff RBC M/uL 3.9 5.1 2.58 Low FINAL Nicole Carmonaot [facility] - [place], [address] [place] [id number] 0 Phone: () - 01/29 CBC w/ auto diff HCT % 35.0 48.0 27.0 Low FINAL Nicole Carmonaot a [facility] - [place], [address] [place] [id number] 0 Phone: () - 01/29 CBC w/ auto diff MCV fL 80.0 104.0 104.7 High FINAL Nicole Ya [facility] - [place], [address] [place] [id number] 0 Phone: () - 01/29 CBC w/ auto diff MCH pg 26.0 35.0 34.1 FINAL Nicole Felton [facility] - [place], [address] [place] [id number] 0 Phone: () - 01/29 CBC w/ auto diff MCHC g/dL 30.0 35.0 32.6 FINAL Nicole Felton [place] [facility] - [place], [address] [place] [id number] 0 Phone: () - 01/29 CBC w/ auto diff MPV fL 9.5 13.4 9.3 Low FINAL Nicole Felton Nini muñoz [facility] - [place], [address] [place] [id number] 0 Phone: () - 01/29 CBC w/ auto diff RDW % 11.4 16.1 17.80 High FINAL Nicole Felton [place] [facility] - [place], [address] [place] [id number] 0 Phone: () - 02/05 CBC w/ auto diff BA # K/uL 0.0 0.2 0.0 FINAL Nicole Felton [place] [facility] - [place], [address] [place] [id number] 0 Phone: () - 02/05 CBC w/ auto diff NRBC % #/100W BC 0.0 0.2 0.1 FINAL Nicole Felton [place] [facility] - [place], [address] [place] [id number] 0 Phone: () - 02/05 CBC w/ auto diff RBC M/uL 3.9 5.1 2.96 Low FINAL Nicole Felton Mathewdamaris muñoz [facility] - [place], [address] [place] [id number] 0 Phone: () - 02/05 CBC w/ auto diff HCT % 35.0 48.0 30.3 Low FINAL Nicole Felton Mathewdamaris muñoz [facility] - [place], [address] [place] [id number] 0 Phone: () - 02/05 CBC w/ auto diff MCV fL 80.0 104.0 102.4 FINAL Nicole Ya Mathewdamaris muñoz [facility] - [place], [address] [place] [id number] 0 Phone: () - 02/05 CBC w/ auto diff MCH pg 26.0 35.0 33.8 FINAL Nicole Ya Mathewdamaris muñoz [facility] - [place], [address] [facility] [place] [id number] 0 Phone: () - 02/05 CBC w/ auto diff MCHC g/dL 30.0 35.0 33.0 FINAL Nicole Ya Mathewdamaris muñoz [facility] - [place], [address] [place] [id number] 0 Phone: () - 02/05 CBC w/ auto diff MPV fL 9.5 13.4 8.5 Low FINAL Nicole Ya Mathewdamaris muñoz [facility] - [place], [address] [place] [id number] 0 Phone: () - 02/05 CBC w/ auto diff RDW % 11.4 16.1 16.10 FINAL Nicole Ya Mathewdamaris muñoz [facility] - [place], [address] [place] [id number] 0 Phone: () - 02/05 CBC w/ auto diff WBC K/uL 3.0 8.9 16.6 High FINAL Nicole Ya Mathewdamaris muñoz [facility] - [place], [address] [place] [id number] 0 Phone: () - 02/05 CBC w/ auto diff HGB g/dL 11.3 15.2 10.0 Low FINAL Nicole Felton [place] [facility] - [place], [address] [place] [id number] 0 Phone: () - 02/05 CBC w/ auto diff PLT K/uL 113.0 364.0 122 FINAL Nicole Ya [place] [facility] - [place], [address] [place] [id number] 0 Phone: () - 02/05 CBC w/ auto diff Augustus # (ANC) K/uL 1.6 6.6 12.9 High FINAL Nicole Ya [place] [facility] - [place], [address] [place] [id number] 0 Phone: () - 02/05 CBC w/ auto diff Augustus % % 43.0 74.0 77.5 High FINAL Nicole Ya Mathewdamaris a [facility] - [place], [address] [place] [id number] 0 Phone: () - 02/05 CBC w/ auto diff IG % % 0.0 0.5 1.1 High FINAL Nicole Ya [place] [facility] - [place], [address] [place] [id number] 0 Phone: () - 02/05 CBC w/ auto diff IG # K/uL 0.0 0.03 0.19 High FINAL Nicole Felton [place] [facility] - [place], [address] [place] [id number] 0 Phone: () - 02/05 CBC w/ auto diff LY % % 14.0 41.0 11.4 Low FINAL Nicole Ya [facility] [facility] - [place], [address] [place] [id number] 0 Phone: () - 02/05 CBC w/ auto diff MO % % 6.0 15.0 9.9 FINAL Nicole Terrazas a [facility] - [place], [address] [place] [id number] 0 Phone: () - 02/05 CBC w/ auto diff EO % % 0.0 7.0 0.0 FINAL Nicole Terrazas a [facility] - [place], [address] [place] [id number] 0 Phone: () - 02/05 CBC w/ auto diff BA % % 0.0 2.0 0.1 FINAL Nicole muñoz [facility] - [place], [address] [place] [id number] 0 Phone: () - 02/05 CBC w/ auto diff LY # K/uL 0.4 3.6 1.9 FINAL Nicole muñoz [facility] - [place], [address] [place] [id number] 0 Phone: () - 02/05 CBC w/ auto diff MO # K/uL 0.2 1.3 1.6 High FINAL Nicole muñoz [facility] - [place], [address] [place] [id number] 0 Phone: () - 02/05 CBC w/ auto diff EO # K/uL 0.0 0.6 0.0 FINAL Nicole muñoz [facility] - [place], [address] [place] [id number] 0 Phone: () - 02/05 iSTAT Na+/K +/Cl- panel Sodiu m, iSTAT mmol/L 138.0 146.0 134 Low Reference range adjusted 0 with implement ation of I-Stat 8+ cartridge . FINAL Nicole muñoz [facility] - [place], [address] [place] [id number] 0 Phone: () - 02/05 iSTAT Na+/K +/Cl- panel Potas sium, iSTAT mmol/L 3.5 4.9 3.1 Low Reference range adjusted 0 with implement ation of I-Stat 8+ cartridge . FINAL Nicole muñoz [facility] - [place], [address] [facility] [place] [id number] 0 Phone: () - 02/05 iSTAT Na+/K +/Cl- panel Chlor rakan, iSTAT mmol/L 98.0 109.0 95 Low Reference range adjusted 0 with implement ation of I-Stat 8+ cartridge . FINAL Nicole muñoz [facility] - [place], [address] [facility] [address] [place] [id number] 0 Phone: () - 02/05 iSTAT creat inine panel Creat inine , iSTAT mg/dl 0.6 1.3 0.8 FINAL Tiara muñoz [facility] - [place], [address] [facility] [address] [place] [id number] 0 Phone: () - 02/05 iSTAT creat inine panel GFR estim ate ml/min /1.73m ^2 79.7 GFR is calculate d using the CKD-EPI equation. FINAL Tiara muñoz [facility] - [place], [address] [place] [id number] 0 Phone: () - 02/05 Magne sium, mg/dL mg/dL 1.5 2.3 1.4 Low FINAL Tiara muñoz [facility] - [place], [address] [place] [id number] 0 Phone: () - 02/07 iSTAT creat inine panel Creat inine , iSTAT mg/dl 0.6 1.3 1.0 FINAL Tiara muñoz [facility] - [place], [address] [facility] [address] [place] [id number] 0 Phone: () - 02/07 iSTAT creat inine panel GFR estim ate ml/min /1.73m ^2 61.0 GFR is calculate d using the CKD-EPI equation. FINAL Tiara muñoz [facility] - [place], [address] [facility] [address] [place] [id number] 0 Phone: () - 02/07 iSTAT Na+/K +/Cl- panel Sodiu m, iSTAT mmol/L 138.0 146.0 137 Low Reference range adjusted 0 with implement ation of I-Stat 8+ cartridge . FINAL Tiara Carmona toni [facility] - [place], [address] [facility] [address] [place] [id number] 0 Phone: () - 02/07 iSTAT Na+/K +/Cl- panel Potas sium, iSTAT mmol/L 3.5 4.9 3.2 Low Reference range adjusted 0 with implement ation of I-Stat 8+ cartridge . FINAL Tiara Carmona toni [facility] - [place], [address] [facility] [address] [facility] [place] [id number] 0 Phone: () - 02/07 iSTAT Na+/K +/Cl- panel Chlor rakan, iSTAT mmol/L 98.0 109.0 100 Reference range adjusted 0 with implement ation of I-Stat 8+ cartridge . FINAL Tiara Carmona toni [facility] - [place], [address] [facility] [address] [facility] [place] [id number] 0 Phone: () - 02/07 Magne sium, mg/dL mg/dL 1.5 2.3 1.5 FINAL [facility] [place], [address] [place] [phone] 0 Phone: () - 02/08 Clost ridiu [...] been establish ed.This assay was performed by [employer]pert (R) PCR.The performan ce character istics of this assay havebeen determine d by [employer]. Performan cecharact eristics refer to the analytica l performan ceof the test.For additiona l informati on, please refer tohttp:// education .[email or web address]/F [email or web address](Thi s link is being provided forinform ational/e ducationa l purposes only.)[CA ] FINAL Tiara NEGRETE [facility] [employer] [facility] [employer] [address] [place] [id number] 4 02/08 Clost ridiu m diffi cile toxin PCR panel CLOST RIDIU M DIFFI CILE TOXIN /GDH W/REF L TO PCR SEE NOTE CLOSTRIDI UM DIFFICILE TOXIN/GDH W/REFL TO PCRMicro Number: [id number] est Status: FinalSpec imen Source: StoolSpec imen Quality: AdequateG DH Antigen: DetectedT oxin A and B: Not DetectedC OMMENT: Indetermi vikram. Specimen forwarded fortoxige cesar C. difficile PCR testing.F or additiona l informati on, please refer tohttp:// education .[employer]/faq/F [email or web address](Thi s link is being provided forinform ational/e ducationa l purposes only.)[CB ] FINAL Tiara NEGRETE [employer] [address] [facility] [id number] 4 02/08 CMP Album in g/dL 3.2 5.2 3.2 FINAL Nicole Carmona a Oncology [facility], [address] [facility] [address] [place] [address] [phone] Phone: () - 02/08 CMP Alkal ine phosp hatas e U/L 46.0 116.0 85 FINAL Nicole Terrazas a Oncology [facility], [address] [facility] [address] [place] [address] [phone] 0 Phone: () - 02/08 CMP ALT/S GPT U/L 7.0 40.0 24 FINAL [facility] [address] [facility] [address] [facility] [id number] 0 Phone: () - 02/08 CMP AST/S GOT U/L 13.0 40.0 16 [facility] [address] [facility] [address] [facility] [phone] 0 Phone: () - 02/08 CMP BUN mg/dL 9.0 23.0 8.0 Low FINAL [place] [address] [address] [facility] 100 [facility] [id number] 0 Phone: () - 02/08 CMP Calci um mg/dL 8.7 10.4 8.3 Low FINAL [place] [address] [address] [facility] 100 [facility] [phone] 0 Phone: () - 02/08 CMP Chlor rakan mmol/L 96.0 114.0 111 FINAL [place] [address] [address] [facility] [address] [phone] 0 Phone: () - 02/08 CMP CO2 [...] 96 hour stability window. FINAL Nicole Terrazas [facility], [facility] [address] [facility] [address] [place] [address] [phone] 0 Phone: () - 02/08 CMP Creat inine mg/dL 0.5 1.2 0.86 FINAL [place] [address] [address] [facility] [address] [place] [address] [id number] 0 Phone: () - 02/08 CMP GFR estim ate ml/min /1.73m ^2 73.0 GFR is calculate d using the CKD-EPI equation. FINAL [facility], [address] [facility] [address] [phone] 0 Phone: () - 02/08 CMP Gluco se mg/dL 73.0 126.0 129 High FINAL Nicole muñoz [facility], [address] [facility] [address] [phone] 0 Phone: () - 02/08 CMP Potas sium mmol/L 3.5 5.1 3.6 FINAL Nicole muñoz [facility], [address] [facility] [address] [id number] 0 Phone: () - 02/08 CMP Sodiu m mmol/L 136.0 145.0 144 FINAL Nicole muñoz [facility], [address] [id number] 0 Phone: () - 02/08 CMP Bilir ubin, total mg/dL 0.3 1.2 0.3 FINAL Nicole muñoz [facility], [address] [id number] 0 Phone: () - 02/08 CMP Total prote in g/dL 5.7 8.2 4.8 Low FINAL Nicole muñoz [facility], [address] [id number] 0 Phone: () - 02/08 CBC w/ auto diff WBC K/uL 3.0 8.9 17.2 High FINAL Nicole muñoz [facility] - [place], [address] [facility] [facility] [address] [place] [facility] [id number] 0 Phone: () - 02/08 CBC w/ auto diff HGB g/dL 11.3 15.2 7.9 Critica l hematol ogy result obtaine d Criti todd Low FINAL Nicole Terrazas a On[facility] - [place], [address] [place] [id number] 0 Phone: () - 02/08 CBC w/ auto diff PLT K/uL 113.0 364.0 123 FINAL Nicole muñoz On[facility] - [place], [address] [facility] [address] [place] [facility] [id number] 0 Phone: () - 02/08 CBC w/ auto diff Augustus # (ANC) K/uL 1.6 6.6 13.8 High FINAL Nicole Terrazas a On[facility] - [place], [address] [place] [id number] 0 Phone: () - 02/08 CBC w/ auto diff Augustus % % 43.0 74.0 80.0 High FINAL Nicole Terrazas a Oncology - [place], [address] [place] [id number] 0 Phone: () - 02/08 CBC w/ auto diff IG % % 0.0 0.5 2.2 High FINAL Nicole muñoz On[facility] - [place], [address] [place] [id number] 0 Phone: () - 02/08 CBC w/ auto diff IG # K/uL 0.0 0.03 0.38 High FINAL Nicole muñoz On[facility] - [place], [address] [place] [phone] 0 Phone: () - 02/08 CBC w/ auto diff LY % % 14.0 41.0 9.3 Low FINAL Nicole muñoz On[facility] - [place], [address] [place] [id number] 0 Phone: () - 02/08 CBC w/ auto diff MO % % 6.0 15.0 8.4 FINAL Nicole muñoz On[facility] - [place], [address] [place] [id number] 0 Phone: () - 02/08 CBC w/ auto diff EO % % 0.0 7.0 0.0 FINAL Nicole Terrazas a On[facility] - [place], [address] [place] [id number] 0 Phone: () - 02/08 CBC w/ auto diff BA % % 0.0 2.0 0.1 FINAL Nicole Carmonaot a Oncology - [place], [address] [place] [id number] 0 Phone: () - 02/08 CBC w/ auto diff LY # K/uL 0.4 3.6 1.6 FINAL Nicole Carmonaot a On[facility] - [place], [address] [place] [phone] 0 Phone: () - 02/08 CBC w/ auto diff MO # K/uL 0.2 1.3 1.5 High FINAL Nicole Carmonaot a On[facility] - [place], [address] [place] [id number] 0 Phone: () - 02/08 CBC w/ auto diff EO # K/uL 0.0 0.6 0.0 FINAL Nicole Carmonaot a On[facility] - [place], [address] [place] [id number] 0 Phone: () - 02/08 CBC w/ auto diff BA # K/uL 0.0 0.2 0.0 FINAL Nicole Terrazas a [facility] - [place], [address] [place] [id number] 0 Phone: () - 02/08 CBC w/ auto diff NRBC % #/100W BC 0.0 0.2 0.3 High FINAL Nicole Carmonaot a On[facility] - [place], [address] [place] [id number] 0 Phone: () - 02/08 CBC w/ auto diff RBC M/uL 3.9 5.1 2.33 Low FINAL Nicole Carmonaot a On[facility] - [place], [address] [place] [id number] 0 Phone: () - 02/08 CBC w/ auto diff HCT % 35.0 48.0 24.6 Low FINAL Nicole Carmonaot a Oncology - [place], [address] [place] [phone] 0 Phone: () - 02/08 CBC w/ auto diff MCV fL 80.0 104.0 105.6 High FINAL Nicole Terrazas a [facility] - [place], [address] [place] [id number] 0 Phone: () - 02/08 CBC w/ auto diff MCH pg 26.0 35.0 33.9 FINAL Nicole muñoz On[facility] - [place], [address] [place] [phone] 0 Phone: () - 02/08 CBC w/ auto diff MCHC g/dL 30.0 35.0 32.1 FINAL Nicole muñoz On[facility] - [place], [address] [place] [id number] 0 Phone: () - 02/08 CBC w/ auto diff MPV fL 9.5 13.4 9.1 Low FINAL Nicole muñoz On[facility] - [place], [address] [place] [phone] 0 Phone: () - 02/08 CBC w/ auto diff RDW % 11.4 16.1 16.70 High FINAL Nicole muñoz On[facility] - [place], [address] [place] [id number] 0 Phone: () - 02/08 iSTAT creat inine panel Creat inine , iSTAT mg/dl 0.6 1.3 0.8 FINAL Nicole muñoz [facility] - [place], [address] [place] [phone] 0 Phone: () - 02/08 iSTAT creat inine panel GFR estim ate ml/min /1.73m ^2 79.7 GFR is calculate d using the CKD-EPI equation. FINAL Nicole muñoz [facility] - [place], [address] [place] [phone] 0 Phone: () - 02/12 Magne sium, mg/dL mg/dL 1.5 2.3 1.5 FINAL Nicole muñoz On[facility] - [place], [address] [place] [id number] 0 Phone: () - 02/12 iSTAT Na+/K +/Cl- panel Sodiu m, iSTAT mmol/L 138.0 146.0 139 Reference range adjusted 0 with implement ation of I-Stat 8+ cartridge . FINAL Nicole Ya Mathewdamaris muñoz Oncology - [place], [address] [place] [id number] 0 Phone: () - 02/12 iSTAT Na+/K +/Cl- panel Yolanda sium, iSTAT mmol/L 3.5 4.9 3.8 Reference range adjusted 0 with implement ation of I-Stat 8+ cartridge . FINAL Nicole Ya Mathewdamaris muñoz Oncology - [place], [address] [place] [phone] 0 Phone: () - 02/12 iSTAT Na+/K +/Cl- panel Chlor rakan, iSTAT mmol/L 98.0 109.0 100 Reference range adjusted 0 with implement ation of I-Stat 8+ cartridge . FINAL Nicole Ya Mathewdamaris muñoz Oncology - [place], [address] [place] [id number] 0 Phone: () - 02/12 CBC w/ auto diff WBC K/uL 3.0 8.9 9.0 High FINAL Nicole Ya Mathewdamaris muñoz Oncology - [place], [address] [place] [id number] 0 Phone: () - 02/12 CBC w/ auto diff HGB g/dL 11.3 15.2 8.7 Low FINAL iNcole Ya Mathewdamaris muñoz Oncology - [place], [address] [place] [id number] 0 Phone: () - 02/12 CBC w/ auto diff PLT K/uL 113.0 364.0 154 FINAL Nicole Ya Mathewdamaris muñoz Oncology - [place], [address] [place] [id number] 0 Phone: () - 02/12 CBC w/ auto diff Augustus # (ANC) K/uL 1.6 6.6 6.5 FINAL Nicole Terrazas a Oncology - [place], [address] [place] [id number] 0 Phone: () - 02/12 CBC w/ auto diff Augustus % % 43.0 74.0 72.4 FINAL Nicole Terrazas a Oncology - [place], [address] [place] [id number] 0 Phone: () - 02/12 CBC w/ auto diff IG % % 0.0 0.5 0.9 High FINAL Nicole Terrazas a Oncology - [place], [address] [place] [id number] 0 Phone: () - 02/12 CBC w/ auto diff IG # K/uL 0.0 0.03 0.08 High FINAL Nicole Carmonaot toni Oncology - [place], [address] [place] [id number] 0 Phone: () - 02/12 CBC w/ auto diff LY % % 14.0 41.0 17.0 FINAL Nicole muñoz On[facility] - [place], [address] [place] [id number] 0 Phone: () - 02/12 CBC w/ auto diff MO % % 6.0 15.0 9.4 FINAL Nicole muñoz On[facility] - [place], [address] [place] [phone] 0 Phone: () - 02/12 CBC w/ auto diff EO % % 0.0 7.0 0.3 FINAL Nicole Carmonaot a Oncology - [place], [address] [place] [id number] 0 Phone: () - 02/12 CBC w/ auto diff BA % % 0.0 2.0 0.0 FINAL Nicole Carmonaot a Oncology - [place], [address] [place] [phone] 0 Phone: () - 02/12 CBC w/ auto diff LY # K/uL 0.4 3.6 1.5 FINAL Nicole Ya Nini a Oncology - [place], [address] [place] [id number] 0 Phone: () - 02/12 CBC w/ auto diff MO # K/uL 0.2 1.3 0.8 FINAL Nicole Ya Nini muñoz Oncology - [place], [address] [place] [id number] 0 Phone: () - 02/12 CBC w/ auto diff EO # K/uL 0.0 0.6 0.0 FINAL Nicole Felton Nini muñoz Oncology - [place], [address] [place] [id number] 0 Phone: () - 02/12 CBC w/ auto diff BA # K/uL 0.0 0.2 0.0 FINAL Nicole Felton Nini muñoz Oncology - [place], [address] [place] [id number] 0 Phone: () - 02/12 CBC w/ auto diff NRBC % #/100W BC 0.0 0.2 0.0 FINAL Nicole Felton Nini muñoz Oncology - [place], [address] [place] [id number] 0 Phone: () - 02/12 CBC w/ auto diff RBC M/uL 3.9 5.1 2.54 Low FINAL Nicole Ya Nini a Oncology - [place], [address] [place] [id number] 0 Phone: () - 02/12 CBC w/ auto diff HCT % 35.0 48.0 27.5 Low FINAL Nicole Felton Mathewot a Oncology - [place], [address] [place] [phone] 0 Phone: () - 02/12 CBC w/ auto diff MCV fL 80.0 104.0 108.3 High FINAL Nicole Felton Mathewot a Oncology - [place], [address] [place] [phone] 0 Phone: () - 02/12 CBC w/ auto diff MCH pg 26.0 35.0 34.3 FINAL Nicole muñoz Oncology - [place], [address] [place] [id number] 0 Phone: () - 02/12 CBC w/ auto diff MCHC g/dL 30.0 35.0 31.6 FINAL Nicole muñoz Oncology - [place], [address] [place] [id number] 0 Phone: () - 02/12 CBC w/ auto diff MPV fL 9.5 13.4 8.3 Low FINAL Nicole muñoz On[facility] - [place], [address] [place] [id number] 0 Phone: () - 02/12 CBC w/ auto diff RDW % 11.4 16.1 17.40 High FINAL Nicole muñoz On[facility] - [place], [address] [place] [id number] 0 Phone: () - 03/01 CMP Album in g/dL 3.2 5.2 3.4 FINAL Nicole muñoz On[facility], [address] [place] [id number] 0 Phone: () - 03/01 CMP Alkal ine phosp hatas e U/L 46.0 116.0 89 FINAL Nicole Terrazas a Oncology [facility], [address] [place] [id number] 0 Phone: () - 03/01 CMP ALT/S GPT U/L 7.0 40.0 15 FINAL Nicole Terrazas a Oncology [facility], [address] [place] [id number] 0 Phone: () - 03/01 CMP AST/S GOT U/L 13.0 40.0 18 FINAL Nicole muñoz On[facility], [address] [place] [id number] 0 Phone: () - 03/01 CMP BUN mg/dL 9.0 23.0 9.0 FINAL Nicole muñoz [facility], [address] [facility] [address] [facility] [phone] 0 Phone: () - 03/01 CMP Calci um mg/dL 8.7 10.4 8.5 Low [facility]AL [facility] [address] [facility] [address] [facility] [id number] 0 Phone: () - 03/01 CMP Chlor rakan mmol/L 96.0 114.0 113 FINAL Nicole Terrazas [place] [address] [address] [facility] [address] [facility] [id number] 0 Phone: () - 03/01 CMP CO2 [...] 96 hour stability window. FINAL Nicole muñoz [facility], [facility] [address] [phone] 0 Phone: () - 03/01 CMP Creat inine mg/dL 0.5 1.2 0.98 FINAL Nicole muñoz [place] [address] [id number] 0 Phone: () - 03/01 CMP GFR estim ate ml/min /1.73m ^2 62.4 GFR is calculate d using the CKD-EPI equation. FINAL Nicole muñoz [facility], [address] [facility] [address] [facility] [id number] 0 Phone: () - 03/01 CMP Gluco se mg/dL 73.0 126.0 136 High FINAL Nicole muñoz [facility], [address] [facility] [address] [facility] [phone] 0 Phone: () - 03/01 CMP Potas sium mmol/L 3.5 5.1 4.3 FINAL Nicole muñoz [facility], [address] [place] [id number] 0 Phone: () - 03/01 CMP Sodiu m mmol/L 136.0 145.0 147 High FINAL Nicole muñoz [facility], [address] [place] [id number] 0 Phone: () - 03/01 CMP Bilir ubin, total mg/dL 0.3 1.2 0.5 FINAL Nicole muñoz On[facility], [address] [facility] [id number] 0 Phone: () - 03/01 CMP Total prote in g/dL 5.7 8.2 5.2 Low FINAL Nicole muñoz On[facility], [address] [place] [id number] 0 Phone: () - 03/01 CBC w/ auto diff WBC K/uL 3.0 8.9 4.5 FINAL Nicole muñoz On[facility] - [place], [address] [facility] [address] [place] [id number] 0 Phone: () - 03/01 CBC w/ auto diff HGB g/dL 11.3 15.2 8.8 Low FINAL Nicole muñoz On[facility] - [place], [address] [facility] [address] [place] [id number] 0 Phone: () - 03/01 CBC w/ auto diff PLT K/uL 113.0 364.0 154 FINAL Nciole muñoz Oncology - [place], [address] [place] [id number] 0 Phone: () - 03/01 CBC w/ auto diff Augustus # (ANC) K/uL 1.6 6.6 2.2 FINAL Nicole muñoz On[facility] - [place], [address] [place] [id number] 0 Phone: () - 03/01 CBC w/ auto diff Augustus % % 43.0 74.0 49.9 FINAL Nicoledarius muñoz Oncology - [place], [address] [place] [id number] 0 Phone: () - 03/01 CBC w/ auto diff IG % % 0.0 0.5 0.7 High FINAL Nicole Ya Nini a Oncology - [place], [address] [place] [id number] 0 Phone: () - 03/01 CBC w/ auto diff IG # K/uL 0.0 0.03 0.03 FINAL Nicole Ya Nini a Oncology - [place], [address] [place] [id number] 0 Phone: () - 03/01 CBC w/ auto diff LY % % 14.0 41.0 32.0 FINAL Nicole Ya Mathewdamaris toni Oncology - [place], [address] [place] [id number] 0 Phone: () - 03/01 CBC w/ auto diff MO % % 6.0 15.0 14.5 FINAL Nicole Ya Mathewdamaris toni Oncology - [place], [address] [address] [place] [id number] 0 Phone: () - 03/01 CBC w/ auto diff EO % % 0.0 7.0 2.5 FINAL Nicole Felton Mathewdamaris muñoz Oncology - [place], [address] [place] [id number] 0 Phone: () - 03/01 CBC w/ auto diff BA % % 0.0 2.0 0.4 FINAL Nicole Ya Mathewdamaris muñoz Oncology - [place], [address] [place] [id number] 0 Phone: () - 03/01 CBC w/ auto diff LY # K/uL 0.4 3.6 1.4 FINAL Nicole Felton Mathewdamaris muñoz Oncology - [place], [address] [place] [id number] 0 Phone: () - 03/01 CBC w/ auto diff MO # K/uL 0.2 1.3 0.7 FINAL Nicole Ya Mathewdamaris muñoz Oncology - [place], [address] [place] [id number] 0 Phone: () - 03/01 CBC w/ auto diff EO # K/uL 0.0 0.6 0.1 FINAL Nicole Ya Mathewot a Oncology - [place], [address] [place] [id number] 0 Phone: () - 03/01 CBC w/ auto diff BA # K/uL 0.0 0.2 0.0 FINAL Nicole Ya Mathewot a Oncology - [place], [address] [place] [id number] 0 Phone: () - 03/01 CBC w/ auto diff NRBC % #/100W BC 0.0 0.2 0.0 FINAL Nicole Felton Mathewot a Oncology - [place], [address] [place] [id number] 0 Phone: () - 03/01 CBC w/ auto diff RBC M/uL 3.9 5.1 2.57 Low FINAL Nicole Ya Nini muñoz Oncology - [place], [address] [place] [id number] 0 Phone: () - 03/01 CBC w/ auto diff HCT % 35.0 48.0 28.5 Low FINAL Nicole Felton Nini a Oncology - [place], [address] [place] [id number] 0 Phone: () - 03/01 CBC w/ auto diff MCV fL 80.0 104.0 110.9 High FINAL Nicole Ya Nini muñoz Oncology - [place], [address] [place] [id number] 0 Phone: () - 03/01 CBC w/ auto diff MCH pg 26.0 35.0 34.2 FINAL Nicole Felton Mathewot a Oncology - [place], [address] [place] [id number] 0 Phone: () - 03/01 CBC w/ auto diff MCHC g/dL 30.0 35.0 30.9 FINAL Nicole muñoz On[facility] - [place], [address] [place] [id number] 0 Phone: () - 03/01 CBC w/ auto diff MPV fL 9.5 13.4 8.2 Low FINAL Nicole muñoz On[facility] - [place], [address] [place] [id number] 0 Phone: () - 03/01 CBC w/ auto diff RDW % 11.4 16.1 15.70 FINAL Nicole muñoz On[facility] - [place], [address] [place] [id number] 0 Phone: () - 04/12 CMP Album in g/dL 3.2 5.2 3.8 FINAL Nicole muñoz [facility], [address] [place] [address] [id number] 0 Phone: () - 04/12 CMP Alkal ine phosp hatas e U/L 46.0 116.0 90 FINAL Nicole muñoz [facility], [address] [place] [id number] 0 Phone: () - 04/12 CMP ALT/S GPT U/L 7.0 40.0 17 FINAL Nicole muñoz [facility], [address] [place] [id number] 0 Phone: () - 04/12 CMP AST/S GOT U/L 13.0 40.0 18 FINAL Nicole muñoz [facility], [address] [place] [id number] 0 Phone: () - 04/12 CMP BUN mg/dL 9.0 23.0 14.0 FINAL Nicole muñoz [facility], [address] [place] [id number] 0 Phone: () - 04/12 CMP Calci um mg/dL 8.7 10.4 9.1 FINAL Nicole muñoz [facility], [address] [place] [id number] 0 Phone: () - 04/12 CMP Chlor rakan mmol/L 96.0 114.0 110 [facility]AL [facility] [address] [id number] 0 Phone: () - 04/12 CMP CO2 [...] the 96 hour stability window. FINAL [place] [address] [id number] 0 Phone: () - 04/12 CMP Creat inine mg/dL 0.5 1.2 0.86 FINAL [place] [address] [id number] 0 Phone: () - 04/12 CMP GFR estim ate ml/min /1.73m ^2 73.0 GFR is calculate d using the CKD-EPI equation. FINAL Nicole Terrazas [place] [address] [id number] 0 Phone: () - 04/12 CMP Gluco se mg/dL 73.0 126.0 85 [facility] [address] [id number] 0 Phone: () - 04/12 CMP Potas sium mmol/L 3.5 5.1 3.8 FINAL Nicole Terrazas [facility] [address] [facility] [address] [id number] 0 Phone: () - 04/12 CMP Sodiu m mmol/L 136.0 145.0 146 High [facility] [address] [facility] [address] [id number] 0 Phone: () - 04/12 CMP Bilir ubin, total mg/dL 0.3 1.2 0.3 FINAL Nicole Terrazas [facility] [address] [facility] [address] [place] [id number] 0 Phone: () - 04/12 CMP Total prote in g/dL 5.7 8.2 5.6 Low FINAL Nicole Felton Mathewdamaris a Oncology - [place], [address] [place] [id number] 0 Phone: () - 04/12 CBC w/ auto diff WBC K/uL 3.0 8.9 5.3 FINAL Nicole Ya Mathewdamaris muñoz [facility] - [place], [address] [place] [id number] 0 Phone: () - 04/12 CBC w/ auto diff HGB g/dL 11.3 15.2 9.4 Low FINAL Nicole muñoz [facility] - [place], [address] [facility] [address] [place] [id number] 0 Phone: () - 04/12 CBC w/ auto diff PLT K/uL 113.0 364.0 167 FINAL Nicole muñoz [facility] - [place], [address] [facility] [address] [place] [id number] 0 Phone: () - 04/12 CBC w/ auto diff Augustus # (ANC) K/uL 1.6 6.6 3.0 FINAL Nicole muñoz [facility] - [place], [address] [facility] [address] [place] [id number] 0 Phone: () - 04/12 CBC w/ auto diff Augustus % % 43.0 74.0 57.5 FINAL Nicole muñoz [facility] - [place], [address] [place] [id number] 0 Phone: () - 04/12 CBC w/ auto diff IG % % 0.0 0.5 0.4 FINAL Nicole Ya Mathewdamaris muñoz [facility] - [place], [address] [place] [id number] 0 Phone: () - 04/12 CBC w/ auto diff IG # K/uL 0.0 0.03 0.02 FINAL Nicole muoñz [facility] - [place], [address] [place] [id number] 0 Phone: () - 04/12 CBC w/ auto diff LY % % 14.0 41.0 28.6 FINAL Nicole Ya Nini a [facility] - [place], [address] [place] [id number] 0 Phone: () - 04/12 CBC w/ auto diff MO % % 6.0 15.0 11.6 FINAL Nicole Felton Mathewot a [facility] - [place], [address] [place] [id number] 0 Phone: () - 04/12 CBC w/ auto diff EO % % 0.0 7.0 1.5 FINAL Nicole Felton Nini a [facility] - [place], [address] [place] [id number] 0 Phone: () - 04/12 CBC w/ auto diff BA % % 0.0 2.0 0.4 FINAL Nicole Felton Mathewdamaris a On[facility] - [place], [address] [place] [id number] 0 Phone: () - 04/12 CBC w/ auto diff LY # K/uL 0.4 3.6 1.5 FINAL Nicole Felton Nini a [facility] - [place], [address] [place] [id number] 0 Phone: () - 04/12 CBC w/ auto diff MO # K/uL 0.2 1.3 0.6 FINAL Nicole Ya Mathewdamaris a Oncology - [place], [address] [place] [id number] 0 Phone: () - 04/12 CBC w/ auto diff EO # K/uL 0.0 0.6 0.1 FINAL Nicole Felton [facility] [place], [address] [place] [id number] 0 Phone: () - 04/12 CBC w/ auto diff BA # K/uL 0.0 0.2 0.0 FINAL Nicole [facility] [place], [address] [place] [id number] 0 Phone: () - 04/12 CBC w/ auto diff NRBC % #/100W BC 0.0 0.2 0.0 FINAL Nicole [facility] [place], [address] [place] [id number] 0 Phone: () - 04/12 CBC w/ auto diff RBC M/uL 3.9 5.1 2.94 Low FINAL Nicole [facility] [place], [address] [place] [id number] 0 Phone: () - 04/12 CBC w/ auto diff HCT % 35.0 48.0 29.6 Low FINAL Nicole [facility] [place], [address] [place] [id number] 0 Phone: () - 04/12 CBC w/ auto diff MCV fL 80.0 104.0 100.7 FINAL Nicole mu[facility] - [place], [address] [place] [id number] 0 Phone: () - 04/12 CBC w/ auto diff MCH pg 26.0 35.0 32.0 FINAL Nicole [facility] [place], [address] [place] [id number] 0 Phone: () - 04/12 CBC w/ auto diff MCHC g/dL 30.0 35.0 31.8 FINAL Nicole [facility] [place], [address] [place] [id number] 0 Phone: () - 04/12 CBC w/ auto diff MPV fL 9.5 13.4 9.5 FINAL Nicole [facility] [place], [address] [place] [id number] 0 Phone: () - 04/12 CBC w/ auto diff RDW % 11.4 16.1 12.30 FINAL Nicole Ya [facility] [place], [address] [place] [phone] 0 Phone: () - 04/12 PRIOR RESUL T Not Given FINAL Nicole NEGRETE, [facility] [address] [place] [id number] 4 04/12 SOURC E: Periphe ral Blood FINAL Nicole NEGRETE, [facility] [address] [place] [id number] 4 04/12 BCR ABL1/ ABL1 % % 0.000 FINAL Nicole NEGRETE, [facility] [address] [place] [id number] 4 04/12 BCR ABL1/ ABL1 % (IS) % 0.000 FINAL Nicole NEGRETE, [facility] [address] [place] [id number] 4 04/12 INTER PRETA TION see note [...] l informati on, please refer tohttp:// education .[employer]/faq/F AQ72(This link is being provided forinform ational/e ducationa l purposes only.)Ass ay sensitivi ty is at least 4.5-logs below baselineB CR-ABL1 transcrip t levels but is dependent onquantit y and quality of RNA used for testing and thecellul arity of the sample.Th is test was developed and its analytica lperforma nce character istics have been determine dby [facility] [place], [place].It has not been cleared or approved by the FDA. Thisassay has been validated pursuant to the CLIAregul ations and is used for clinical purposes. Alejandro Ya, Ph.D, HCLD (ABB)Chucky ntific Director, Molecular Oncology FINAL Nicole Ya Glyde, [facility] [address] [place] [id number] 4 04/12 P190 BCR ABL1 Not Detecte d FINAL Nicole Felton Glyde, [facility] [address] [place] [id number] 4 04/12 P210 BCR ABL1 Not Detecte d FINAL Nicole Felton PENELOPE, [facility] [address] [place] [id number] 4 06/04 CBC w/ auto diff WBC K/uL 3.0 8.9 6.2 FINAL Nicole Ya [facility] [place], [address] [place] [id number] 0 Phone: () - 06/04 CBC w/ auto diff HGB g/dL 11.3 15.2 12.8 FINAL Nicole Ya [facility] [place], [address] [place] [id number] 0 Phone: () - 06/04 CBC w/ auto diff PLT K/uL 113.0 364.0 177 FINAL Nicole Felton [facility] [place], [address] [place] [id number] 0 Phone: () - 06/04 CBC w/ auto diff Augustus # (ANC) K/uL 1.6 6.6 4.0 FINAL Nicole Ya [facility] [place], [address] [place] [id number] 0 Phone: () - 06/04 CBC w/ auto diff Augustus % % 43.0 74.0 63.9 FINAL Nicole [facility] [place], [address] [place] [id number] 0 Phone: () - 06/04 CBC w/ auto diff IG % % 0.0 0.5 0.2 FINAL Nicole [facility] [place], [address] [place] [id number] 0 Phone: () - 06/04 CBC w/ auto diff IG # K/uL 0.0 0.03 0.01 FINAL Nicole [facility] [place], [address] [place] [id number] 0 Phone: () - 06/04 CBC w/ auto diff LY % % 14.0 41.0 27.5 FINAL Nicole [facility] [place], [address] [place] [id number] 0 Phone: () - 06/04 CBC w/ auto diff MO % % 6.0 15.0 7.9 FINAL Nicole [facility] [place], [address] [place] [id number] 0 Phone: () - 06/04 CBC w/ auto diff EO % % 0.0 7.0 0.2 FINAL Nicole [facility] [place], [address] [place] [id number] 0 Phone: () - 06/04 CBC w/ auto diff BA % % 0.0 2.0 0.3 FINAL Nicole [facility] [place], [address] [place] [id number] 0 Phone: () - 06/04 CBC w/ auto diff LY # K/uL 0.4 3.6 1.7 FINAL Nicole [facility] [place], [address] [place] [id number] 0 Phone: () - 06/04 CBC w/ auto diff MO # K/uL 0.2 1.3 0.5 FINAL Nicole Ya [facility] [place], [address] [place] [id number] 0 Phone: () - 06/04 CBC w/ auto diff EO # K/uL 0.0 0.6 0.0 FINAL Nicole Ya [facility] [place], [address] [place] [id number] 0 Phone: () - 06/04 CBC w/ auto diff BA # K/uL 0.0 0.2 0.0 FINAL Nicole Felton [facility] [place], [address] [place] [id number] 0 Phone: () - 06/04 CBC w/ auto diff NRBC % #/100W BC 0.0 0.2 0.0 FINAL Nicole Felton [facility] [place], [address] [place] [id number] 0 Phone: () - 06/04 CBC w/ auto diff RBC M/uL 3.9 5.1 4.27 FINAL Nicole Ya [facility] - [place], [address] [place] [id number] 0 Phone: () - 06/04 CBC w/ auto diff HCT % 35.0 48.0 39.5 FINAL Nicole Felton [facility] [place], [address] [place] [id number] 0 Phone: () - 06/04 CBC w/ auto diff MCV fL 80.0 104.0 92.5 FINAL Nicole Ya [facility] - [place], [address] [place] [id number] 0 Phone: () - 06/04 CBC w/ auto diff MCH pg 26.0 35.0 30.0 FINAL Nicole Ya [facility] - [place], [address] [place] [id number] 0 Phone: () - 06/04 CBC w/ auto diff MCHC g/dL 30.0 35.0 32.4 FINAL Nicole Felton N[facility] - [place], [address] [place] [id number] 0 Phone: () - 06/04 CBC w/ auto diff MPV fL 9.5 13.4 9.3 Low FINAL Nicole Felton [facility] - [place], [address] [place] [id number] 0 Phone: () - 06/04 CBC w/ auto diff RDW % 11.4 16.1 12.70 FINAL Nicole Felton [facility] [place], [address] [place] [id number] 0 Phone: () - 06/04 iSTAT K+ panel Potas sium, iSTAT mmol/L 3.5 4.9 3.8 Reference range adjusted 0 with implement ation of I-Stat 8+ cartridge . FINAL Nicole Ya [facility] [place], [address] [place] [id number] 0 Phone: () - 07/05 CMP Album in g/dL 3.2 5.2 4.4 FINAL Nicole Ya Dania [facility], [address] [place] [id number] 0 Phone: () - 07/05 CMP Alkal ine phosp hatas e U/L 46.0 116.0 107 FINAL Nicole Ya * [facility], [address] [place] [id number] 0 Phone: () - 07/05 CMP ALT/S GPT U/L 7.0 40.0 26 FINAL Nicole Ya * [facility], [address] [place] [id number] 0 Phone: () - 07/05 CMP AST/S GOT U/L 13.0 40.0 23 FINAL Nicole Ya * [facility], [address] [facility] [address] [facility] [id number] 0 Phone: () - 07/05 CMP BUN mg/dL 9.0 23.0 15.0 FINAL Nicoledarius Ya * [place] [address] [address] [facility] [address] [facility] [phone] 0 Phone: () - 07/05 CMP Calci um mg/dL 8.7 10.4 10.4 FINAL Nicole Ya * [place] [address] [id number] 0 Phone: () - 07/05 CMP Chlor rakan mmol/L 96.0 114.0 109 FINAL Nicoledarius Najera [place] [address] [phone] 0 Phone: () - 07/05 CMP CO2 [...] 96 hour stability window. FINAL Nicole Ya [place] [address] [id number] 0 Phone: () - 07/05 CMP Creat inine mg/dL 0.5 1.2 1.06 FINAL Nicole Ya [place] [address] [id number] 0 Phone: () - 07/05 CMP GFR estim ate ml/min /1.73m ^2 56.7 Low GFR is calculate d using the CKD-EPI equation. FINAL Nicole Najera [place] [address] [phone] 0 Phone: () - 07/05 CMP Gluco se mg/dL 73.0 126.0 97 FINAL Nicole Ya * [facility], [address] [facility] [address] [facility] [phone] 0 Phone: () - 07/05 CMP Potas sium mmol/L 3.5 5.1 4.4 FINAL Nicole Ya * [facility] [place], [address] [place] [id number] 0 Phone: () - 07/05 CMP Sodiu m mmol/L 136.0 145.0 143 FINAL Nicole [facility] [place], [address] [place] [id number] 0 Phone: () - 07/05 CMP Bilir ubin, total mg/dL 0.3 1.2 0.5 FINAL Nicole Ya * [facility] [place], [address] [place] [id number] 0 Phone: () - 07/05 CMP Total prote in g/dL 5.7 8.2 6.4 FINAL Nicole [facility] [place], [address] [place] [id number] 0 Phone: () - 07/05 CBC w/ auto diff WBC K/uL 3.0 8.9 3.3 FINAL Nicole Ya [facility] - [place], [address] [facility] [place] [id number] 0 Phone: () - 07/05 CBC w/ auto diff HGB g/dL 11.3 15.2 11.9 FINAL Nicole Ya [facility] - [place], [address] [place] [id number] 0 Phone: () - 07/05 CBC w/ auto diff PLT K/uL 113.0 364.0 163 FINAL Nicole [facility] [place], [address] [place] [id number] 0 Phone: () - 07/05 CBC w/ auto diff Augustus # (ANC) K/uL 1.6 6.6 2.0 FINAL Nicole [facility] [place], [address] [place] [id number] 0 Phone: () - 07/05 CBC w/ auto diff Augustus % % 43.0 74.0 58.6 FINAL Nicole [facility] [place], [address] [place] [id number] 0 Phone: () - 07/05 CBC w/ auto diff IG % % 0.0 0.5 0.3 FINAL Nicole [facility] [place], [address] [place] [id number] 0 Phone: () - 07/05 CBC w/ auto diff IG # K/uL 0.0 0.03 0.01 FINAL Nicole [facility] [place], [address] [place] [id number] 0 Phone: () - 07/05 CBC w/ auto diff LY % % 14.0 41.0 24.3 FINAL Nicole [facility] [place], [address] [place] [id number] 0 Phone: () - 07/05 CBC w/ auto diff MO % % 6.0 15.0 16.2 High FINAL Nicole mu[facility] - [place], [address] [place] [id number] 0 Phone: () - 07/05 CBC w/ auto diff EO % % 0.0 7.0 0.3 FINAL Nicole [facility] - [place], [address] [place] [id number] 0 Phone: () - 07/05 CBC w/ auto diff BA % % 0.0 2.0 0.3 FINAL Nicole [facility] [place], [address] [place] [id number] 0 Phone: () - 07/05 CBC w/ auto diff LY # K/uL 0.4 3.6 0.8 FINAL Nicole [facility] - [place], [address] [place] [id number] 0 Phone: () - 07/05 CBC w/ auto diff MO # K/uL 0.2 1.3 0.5 FINAL Nicole [facility] - [place], [address] [place] [id number] 0 Phone: () - 07/05 CBC w/ auto diff EO # K/uL 0.0 0.6 0.0 FINAL Nicole [facility] [place], [address] [place] [id number] 0 Phone: () - 07/05 CBC w/ auto diff BA # K/uL 0.0 0.2 0.0 FINAL Nicole [facility] [place], [address] [place] [id number] 0 Phone: () - 07/05 CBC w/ auto diff NRBC % #/100W BC 0.0 0.2 0.0 FINAL Nicole [facility] [place], [address] [place] [id number] 0 Phone: () - 07/05 CBC w/ auto diff RBC M/uL 3.9 5.1 3.95 FINAL Nicole [facility] - [place], [address] [place] [id number] 0 Phone: () - 07/05 CBC w/ auto diff HCT % 35.0 48.0 36.7 FINAL Nicole mu[facility] - [place], [address] [place] [id number] 0 Phone: () - 07/05 CBC w/ auto diff MCV fL 80.0 104.0 92.9 FINAL Nicole [facility] [place], [address] [place] [id number] 0 Phone: () - 07/05 CBC w/ auto diff MCH pg 26.0 35.0 30.1 FINAL Nicole [facility] [place], [address] [place] [id number] 0 Phone: () - 07/05 CBC w/ auto diff MCHC g/dL 30.0 35.0 32.4 FINAL Nicole [facility] [place], [address] [place] [id number] 0 Phone: () - 07/05 CBC w/ auto diff MPV fL 9.5 13.4 8.8 Low FINAL Nicole [facility] [place], [address] [place] [id number] 0 Phone: () - 07/05 CBC w/ auto diff RDW % 11.4 16.1 14.10 FINAL Nicole [facility] [place], [address] [place] [id number] 0 Phone: () - 12/02 PRIOR RESUL T See Report FINAL Nicole Ya Glyde, [facility] [address] [place] [id number] 4 12/02 SOUR E: Periphe ral Blood FINAL Nicole Ya Glyde, [facility] [address] [place] [id number] 4 12/02 BCR ABL1/ ABL1 % % 0.000 FINAL Nicole Ya Glyde, [facility] [address] [place] [id number] 4 12/02 BCR ABL1/ ABL1 % (IS) % 0.000 FINAL Nicole Ya Glyde, [facility] [address] [place] [id number] 4 12/02 INTER PRETA TION see note [...] additiona l informati on, please refer tohttp:// [employer] .[employer]/faq/F AQ72(This link is being provided forinform ational/e ducationa l purposes only.)Ass ay sensitivi ty is at least 4.5-logs below baselineB CR-ABL1 transcrip t levels but is dependent onquantit y and quality of RNA used for testing and thecellul arity of the sample.Th is test was developed and its analytica lperforma nce character istics have been determine dby [facility] , [place], [place].It has not been cleared or approved by the FDA. Thisassay has been validated pursuant to the CLIAregul ations and is used for clinical purposes. Alejandro Ya, Ph.D, HCLD (ABB)Scie ntific Director, Molecular Oncology FINAL Nicole Ya Glyde, [facility] [address] [place] [id number] 4 12/02 P190 BCR ABL1 Not Detecte d FINAL [employer] [facility], [facility] [address] [place] [id number] 4 12/02 P210 BCR ABL1 Not Detecte d FINAL Nicole Twist, [facility] [address] [place] [id number] 4 12/02 CMP Album in g/dL 3.5 5.0 4.3 FINAL Nicole Ya * [facility] [place], [address] [facility] [id number] 0 12/02 CMP Alkal ine phosp hatas e U/L 36.0 125.0 126 High FINAL Nicole Ya * [facility] [place], [address] [facility] [id number] 0 12/02 CMP ALT/S GPT U/L 0.0 34.0 29 FINAL Nicole Ya * [facility], [address] [facility] [address] [id number] 0 12/02 CMP AST/S GOT U/L 14.0 36.0 39 High FINAL Nicole Ya * [facility], [address] [facility] [address] [id number] 0 12/02 CMP BUN mg/dL 7.0 17.0 14.0 FINAL Nicole Ya * [facility], [facility] [address] [place] [id number] 0 12/02 CMP Calci um mg/dL 8.4 10.2 9.1 FINAL Nicole Ya * [facility], [facility] [address] [id number] 0 12/02 CMP Chlor rakan mmol/L 96.0 107.0 108 High FINAL Nicole Ya * [facility], [address] [place] [address] [place] [address] [id number] 0 12/02 CMP CO2 mmol/L 22.0 30.0 [...] hour stability window. FINAL Nicole Ya * [facility] [address] [id number] 0 12/02 CMP Creat inine mg/dL 0.66 1.25 1.30 High FINAL Nicole Ya * [facility], [address] [facility] [id number] 0 12/02 CMP GFR estim ate ml/min /1.73m ^2 44.3 Low GFR is calculate d using the CKD-EPI equation. FINAL Nicole Najera [facility], [address] [facility] [id number] 0 12/02 CMP Gluco se mg/dL 74.0 100.0 126 High FINAL Nicole Ya * [facility], [address] [facility] [id number] 0 12/02 CMP Potas sium mmol/L 3.5 5.1 3.9 FINAL Nicole Ya * [facility], [address] [facility] [id number] 0 12/02 CMP Sodiu m mmol/L 137.0 145.0 140 FINAL Nicole Najera [facility], [address] [facility] [id number] 0 12/02 CMP Bilir ubin, total mg/dL 0.2 1.3 0.7 FINAL Nicole Najera [facility], [address] [facility] [id number] 0 12/02 CMP Total prote in g/dL 6.3 8.2 6.5 FINAL Nicole Ya * [facility], [address] [facility] [id number] 0 12/02 CBC w/ auto diff WBC K/uL 3.0 8.9 4.0 FINAL Nicole Ya [facility] [place], [address] [place] [id number] 0 Phone: ( - 12/02 CBC w/ auto diff HGB g/dL 11.3 15.2 12.8 FINAL Nicole [facility] [place], [address] [place] [id number] 0 Phone: () - 12/02 CBC w/ auto diff PLT K/uL 113.0 364.0 175 FINAL Nicole [facility] [place], [address] [place] [id number] 0 Phone: () - 12/02 CBC w/ auto diff Augustus # (ANC) K/uL 1.6 6.6 2.5 FINAL Nicole [facility] [place], [address] [place] [id number] 0 Phone: () - 12/02 CBC w/ auto diff Augustus % % 43.0 74.0 63.2 FINAL Nicole [facility] [place], [address] [place] [id number] 0 Phone: () - 12/02 CBC w/ auto diff IG % % 0.0 0.5 0.3 FINAL Nicole [facility] [place], [address] [place] [id number] 0 Phone: () - 12/02 CBC w/ auto diff IG # K/uL 0.0 0.03 0.01 FINAL Nicole [facility] [place], [address] [place] [id number] 0 Phone: () - 12/02 CBC w/ auto diff LY % % 14.0 41.0 25.7 FINAL Nicole [facility] [place], [address] [place] [id number] 0 Phone: () - 12/02 CBC w/ auto diff MO % % 6.0 15.0 10.8 FINAL Nicole [facility] - [place], [address] [place] [id number] 0 Phone: () - 12/02 CBC w/ auto diff EO % % 0.0 7.0 0.0 FINAL Nicole [facility] - [place], [address] [place] [id number] 0 Phone: () - 12/02 CBC w/ auto diff BA % % 0.0 2.0 0.0 FINAL Nicole [facility] - [place], [address] [place] [id number] 0 Phone: () - 12/02 CBC w/ auto diff LY # K/uL 0.4 3.6 1.0 FINAL Nicole Ya Niin [facility] - [place], [address] [place] [id number] 0 Phone: () - 12/02 CBC w/ auto diff MO # K/uL 0.2 1.3 0.4 FINAL Nicole Felton [facility] - [place], [address] [place] [id number] 0 Phone: () - 12/02 CBC w/ auto diff EO # K/uL 0.0 0.6 0.0 FINAL Nicole Felton Niin [facility] - [place], [address] [place] [id number] 0 Phone: () - 12/02 CBC w/ auto diff BA # K/uL 0.0 0.2 0.0 FINAL Nicole Ya [facility] - [place], [address] [place] [id number] 0 Phone: () - 12/02 CBC w/ auto diff NRBC % #/100W BC 0.0 0.2 0.0 FINAL Nicole Ya [facility] - [place], [address] [place] [id number] 0 Phone: () - 12/02 CBC w/ auto diff RBC M/uL 3.9 5.1 3.98 FINAL Nicole Ya [facility] - [place], [address] [place] [id number] 0 Phone: () - 12/02 CBC w/ auto diff HCT % 35.0 48.0 38.6 FINAL Nicole Ya [facility] - [place], [address] [place] [id number] 0 Phone: () - 12/02 CBC w/ auto diff MCV fL 80.0 104.0 97.0 FINAL Nicole Ya [facility] - [place], [address] [place] [id number] 0 Phone: () - 12/02 CBC w/ auto diff MCH pg 26.0 35.0 32.2 FINAL Nicole Ya [facility] - [place], [address] [place] [id number] 0 Phone: () - 12/02 CBC w/ auto diff MCHC g/dL 30.0 35.0 33.2 FINAL Nicole [facility] - [place], [address] [place] [id number] 0 Phone: () - 12/02 CBC w/ auto diff MPV fL 9.5 13.4 9.1 Low FINAL Nicole Ya [facility] - [place], [address] [place] [id number] 0 Phone: () - 12/02 CBC w/ auto diff RDW % 11.4 16.1 12.70 FINAL Nicole [facility] - [place], [address] [place] [id number] 0 Phone: () - 03/[address] [facility] other lab See flasher adjuster d 05/21 Misc other lab See flasher adjuster d 06/15 CMP Album in g/dL 3.5 5.0 4.6 FINAL Nicole Ya * [place] [facility] [place] [facility] , [address] [facility] [place] [id number] 0 06/15 CMP Alkal ine phosp hatas e U/L 36.0 125.0 92 FINAL Nicoledarius Ya * [facility] , [address] [facility] [id number] 0 06/15 CMP ALT/S GPT U/L 0.0 34.0 44 High FINAL Nicole Ya * [facility] , [address] [facility] [id number] 0 06/15 CMP AST/S GOT U/L 14.0 36.0 43 High FINAL Nicole Felton * [facility] , [address] [facility] [id number] 0 06/15 CMP BUN mg/dL 7.0 17.0 17.0 FINAL Nicole Ya * [facility] , [address] [facility] [id number] 0 06/15 CMP Calci um mg/dL 8.4 10.2 9.6 FINAL Nicole Felton * [facility] , [address] [facility] [id number] 0 06/15 CMP Chlor rakan mmol/L 96.0 107.0 106 FINAL Nicoledarius Ya * [facility] , [address] [facility] [id number] 0 06/15 CMP CO2 mmol/L 22.0 30.0 [...] hour stability window. FINAL Nicole Ya * [facility] , [address] [facility] [id number] 0 06/15 CMP Creat inine mg/dL 0.66 1.25 1.30 High FINAL Nicole Ya * [facility] , [address] [facility] [address] [facility] [id number] 0 06/15 CMP GFR estim ate ml/min /1.73m ^2 44.1 Low GFR is calculate d using the CKD-EPI equation. FINAL Nicole Ya * [facility] Oncology , [address] [facility] [address] [place] [id number] 06/15 CMP Gluco se mg/dL 74.0 100.0 94 FINAL Nicole Ya * [facility] , [address] [facility] [address] [facility] [id number] 0 06/15 CMP Potas sium mmol/L 3.5 5.1 4.1 FINAL Nicole Ya * [facility] , [address] [facility] [address] [facility] [id number] 0 06/15 CMP Sodiu m mmol/L 137.0 145.0 140 FINAL Nicole Ya * [facility] , [address] [facility] [address] [facility] [id number] 0 06/15 CMP Bilir ubin, total mg/dL 0.2 1.3 0.9 FINAL Nicole Ya * [facility] , [address] [facility] [address] [facility] [id number] 0 06/15 CMP Total prote in g/dL 6.3 8.2 6.7 FINAL Nicole Ya * [facility] , [address] [facility] [address] [id number] 0 06/15 CBC w/ auto diff WBC K/uL 3.0 8.9 4.7 FINAL Nicole Ya [facility] Oncology , [address] [place] [id number] 0 06/15 CBC w/ auto diff HGB g/dL 11.3 15.2 13.6 FINAL Nicole Ya [place] , [address] [place] [id number] 0 06/15 CBC w/ auto diff PLT K/uL 113.0 364.0 151 FINAL Nicole Ya [place] , [address] [place] [id number] 0 06/15 CBC w/ auto diff Augustus # (ANC) K/uL 1.6 6.6 2.9 FINAL Nicole Ya [place] , [address] [place] [id number] 0 06/15 CBC w/ auto diff Augustus % % 43.0 74.0 61.4 FINAL Nicole Ya [place] , [address] [place] [id number] 0 06/15 CBC w/ auto diff IG % % 0.0 0.5 0.2 FINAL Nicole Ya [place] , [address] [place] [id number] 0 06/15 CBC w/ auto diff IG # K/uL 0.0 0.03 0.01 FINAL Nicole Ya [place] , [address] [place] [id number] 0 06/15 CBC w/ auto diff LY % % 14.0 41.0 28.3 FINAL Nicole Ya [place] , [address] [place] [id number] 0 06/15 CBC w/ auto diff MO % % 6.0 15.0 10.1 FINAL Nicole Ya [place] [facility] , [address] [facility] [address] [place] [id number] 0 06/15 CBC w/ auto diff EO % % 0.0 7.0 0.0 FINAL Nicole Ya [place] [facility] , [address] [facility] [address] [place] [id number] 0 06/15 CBC w/ auto diff BA % % 0.0 2.0 0.0 FINAL Nicole Ya [place] [facility] , [address] [facility] [address] [place] [id number] 0 06/15 CBC w/ auto diff LY # K/uL 0.4 3.6 1.3 FINAL Nicole Ya [place] [facility] , [address] [facility] [address] [place] [id number] 0 06/15 CBC w/ auto diff MO # K/uL 0.2 1.3 0.5 FINAL Nicole Ya [place] [facility] , [address] [facility] [address] [place] [id number] 0 06/15 CBC w/ auto diff EO # K/uL 0.0 0.6 0.0 FINAL Nicole Ya [place] [facility] , [address] [facility] [address] [place] [id number] 0 06/15 CBC w/ auto diff BA # K/uL 0.0 0.2 0.0 FINAL Nicole Ya [place] [facility] , [address] [place] [id number] 0 06/15 CBC w/ auto diff NRBC % #/100W BC 0.0 0.2 0.0 FINAL Nicole Ya [place] , [address] [place] [id number] 0 06/15 CBC w/ auto diff RBC M/uL 3.9 5.1 4.32 FINAL Nicole Ya [place] , [address] [place] [id number] 0 06/15 CBC w/ auto diff HCT % 35.0 48.0 41.6 FINAL Nicole Ya [place] , [address] [place] [id number] 0 06/15 CBC w/ auto diff MCV fL 80.0 104.0 96.3 FINAL Nicole Ya [place] , [address] [place] [id number] 0 06/15 CBC w/ auto diff MCH pg 26.0 35.0 31.5 FINAL Nicole Ya [place] , [address] [place] [id number] 0 06/15 CBC w/ auto diff MCHC g/dL 30.0 35.0 32.7 FINAL Nicole Ya [place] , [address] [place] [id number] 0 06/15 CBC w/ auto diff MPV fL 9.5 13.4 9.3 Low FINAL Nicole Ya [place] , [address] [place] [id number] 0 06/15 CBC w/ auto diff RDW % 11.4 16.1 12.00 FINAL Nicole Ya [place] , [address] [place] [id number] 0 06/15 PRIOR RESUL T See Report FINAL Nicole NEGRETE, [facility] [address] [place] [id number] 4 06/15 SOURC E: Periphe ral Blood FINAL Nicole NEGRETE, [facility] [address] [place] [id number] 4 06/15 BCR ABL1/ ABL1 % % 0.000 FINAL Nicole NEGRETE, [facility] [address] [place] [id number] 4 06/15 BCR ABL1/ ABL1 % (IS) % 0.000 FINAL Nicole NEGRETE, [facility] [address] [place] [id number] 4 06/15 INTER PRETA TION see note [...] l informati on, please refer tohttp:// education .[employer]/faq/F AQ72(This link is being provided forinform ational/e ducationa l purposes only.)Ass ay sensitivi ty is at least 4.5-logs below baselineB CR-ABL1 transcrip t levels but is dependent onquantit y and quality of RNA used for testing and thecellul arity of the sample.Th is test was developed and its analytica lperforma nce character istics have been determine dby [facility] [place], [place].It has not been cleared or approved by the FDA. Thisassay has been validated pursuant to the CLIAregul ations and is used for clinical purposes. Denver wilson M.D. FINAL Nicole Ya [facility], [facility] [address] [place] [id number] 4 06/15 P190 BCR ABL1 Not Detecte d FINAL Nicole Ya [facility], [facility] [address] [place] [id number] 4 06/15 P210 BCR ABL1 Not Detecte d FINAL Nicole Ya [facility], [facility] [address] [place] [id number] 4 01/06 CBC w/ auto diff WBC K/uL 3.0 8.9 4.5 FINAL Nicole Ya [place] , [address] [place] [id number] 0 01/06 CBC w/ auto diff HGB g/dL 11.3 15.2 12.8 FINAL Nicoledarius Ya [place] , [address] [place] [id number] 0 01/06 CBC w/ auto diff PLT K/uL 113.0 364.0 153 FINAL Nicoledarius Ya [place] , [address] [place] [id number] 0 01/06 CBC w/ auto diff Augustus # (ANC) K/uL 1.6 6.6 2.8 FINAL Nicole Ya [place] , [address] [place] [id number] 0 01/06 CBC w/ auto diff Augustus % % 43.0 74.0 61.5 FINAL Nicole Ya [place] , [address] [place] [id number] 0 01/06 CBC w/ auto diff IG % % 0.0 0.5 0.4 FINAL Nicole Ya [place] , [address] [place] [id number] 0 01/06 CBC w/ auto diff IG # K/uL 0.0 0.03 0.02 FINAL Nicole Ya [facility] [place] [facility] , [address] [place] [id number] 0 01/06 CBC w/ auto diff LY % % 14.0 41.0 25.4 FINAL Nicole Ya [facility] [place] [facility] , [address] [place] [id number] 0 01/06 CBC w/ auto diff MO % % 6.0 15.0 12.7 FINAL Nicole Ya [facility] [place] [facility] , [address] [place] [id number] 0 01/06 CBC w/ auto diff EO % % 0.0 7.0 0.0 FINAL Nicole Ya [facility] [place] [facility] , [address] [place] [id number] 0 01/06 CBC w/ auto diff BA % % 0.0 2.0 0.0 FINAL Nicole Ya [facility] [place] [facility] , [address] [place] [id number] 0 01/06 CBC w/ auto diff LY # K/uL 0.4 3.6 1.1 FINAL Nicole Ya [facility] [place] [facility] , [address] [place] [id number] 0 01/06 CBC w/ auto diff MO # K/uL 0.2 1.3 0.6 FINAL Nicole Ya [place] , [address] [place] [id number] 0 01/06 CBC w/ auto diff EO # K/uL 0.0 0.6 0.0 FINAL Nicole Ya [place] , [address] [place] [id number] 0 01/06 CBC w/ auto diff BA # K/uL 0.0 0.2 0.0 FINAL Nicole Ya [place] , [address] [place] [id number] 0 01/06 CBC w/ auto diff NRBC % #/100W BC 0.0 0.2 0.0 FINAL Nicole Ya [place] , [address] [place] [id number] 0 01/06 CBC w/ auto diff RBC M/uL 3.9 5.1 3.69 Low FINAL Nicole Ya [place] , [address] [place] [id number] 0 01/06 CBC w/ auto diff HCT % 35.0 48.0 37.6 FINAL Nicole Ya [place] , [address] [place] [id number] 0 01/06 CBC w/ auto diff MCV fL 80.0 104.0 101.9 FINAL Nicole Ya [place] , [address] [place] [id number] 0 01/06 CBC w/ auto diff MCH pg 26.0 35.0 34.7 FINAL Nicole Ya [place] , [address] [place] [id number] 0 01/06 CBC w/ auto diff MCHC g/dL 30.0 35.0 34.0 FINAL Nicole Ya [place] , [address] [place] [id number] 0 01/06 CBC w/ auto diff MPV fL 9.5 13.4 9.6 FINAL Nicole Ya [place] , [address] [place] [id number] 0 01/06 CBC w/ auto diff RDW % 11.4 16.1 13.00 FINAL Nicole Ya [place] , [address] [place] [id number] 0 01/06 CMP Album in g/dL 3.5 5.0 3.9 FINAL Nicole Ya * [facility] , [address] [facility] [id number] 0 01/06 CMP Alkal ine phosp hatas e U/L 36.0 125.0 79 FINAL Nicole Ya * [place] [facility] , [address] [facility] [id number] 0 01/06 CMP ALT/S GPT U/L 0.0 34.0 24 FINAL Nicole Ya * [place] [facility] , [address] [facility] [id number] 01/06 CMP AST/S GOT U/L 14.0 36.0 33 FINAL Nicole Ya * [facility] , [address] [facility] [id number] 0 01/06 CMP BUN mg/dL 7.0 17.0 14.0 FINAL Nicole Ya * [facility] , [address] [facility] [id number] 01/06 CMP Calci um mg/dL 8.4 10.2 8.9 FINAL Nicole Ya * [facility] , [address] [facility] [id number] 01/06 CMP Chlor rakan mmol/L 96.0 107.0 109 High FINAL Nicole Ya * [facility] , [address] [facility] [id number] 01/06 CMP CO2 mmol/L 22.0 30.0 [...] hour stability window. FINAL Nicoledarius Ya * [facility] , [address] [facility] [id number] 0 01/06 CMP Creat inine mg/dL 0.66 1.25 1.00 FINAL Nicole Ya * [facility] , [address] [facility] [id number] 01/06 CMP GFR estim ate ml/min /1.73m ^2 60.2 GFR is calculate d using the CKD-EPI equation. FINAL Nicoledarius Ya * [facility] , [address] [facility] [id number] 0 01/06 CMP Gluco se mg/dL 74.0 100.0 88 FINAL Nicole Ya * [facility] , [address] [facility] [id number] 0 01/06 CMP Potas sium mmol/L 3.5 5.1 4.1 FINAL Nicole Ya * [facility] , [address] [facility] [id number] 0 01/06 CMP Sodiu m mmol/L 137.0 145.0 141 FINAL Nicole Ya * [facility] , [address] [facility] [id number] 0 01/06 CMP Bilir ubin, total mg/dL 0.2 1.3 0.8 FINAL Nicole Ya * [facility] , [address] [facility] [id number] 01/06 CMP Total prote in g/dL 6.3 8.2 6.2 Low FINAL Nicole Ya * [facility] , [address] [facility] [id number] 0 01/06 PRIOR RESUL T See Report FINAL Nicole Ya [facility], [facility] [address] [place] [id number] 4 01/06 SOURC E: Periphe ral Blood FINAL Nicole Ya [facility], [facility] [address] [place] [id number] 4 01/06 BCR ABL1/ ABL1 % % 0.000 FINAL Nicole Ya [facility], [facility] [address] [place] [id number] 4 01/06 BCR ABL1/ ABL1 % (IS) % 0.000 FINAL Nicole Ya [facility], [facility] [address] [place] [id number] 4 01/06 INTER PRETA TION see note [...] l informati on, please refer tohttp:// education .[employer]/faq/F AQ72(This link is being provided forinform ational/e ducationa l purposes only.)Ass ay sensitivi ty is at least 4.5-logs below baselineB CR-ABL1 transcrip t levels but is dependent onquantit y and quality of RNA used for testing and thecellul arity of the sample.Th is test was developed and its analytica lperforma nce character istics have been determine dby [facility] , [place], [place].It has not been cleared or approved by the FDA. Thisassay has been validated pursuant to the CLIAregul ations and is used for clinical purposes. Reviewed by Aiden Hui M.D., Ph.D.Sta f Pathologi st [facility], [facility] [address] [place] [id number] 4 01/06 P190 BCR ABL1 Not Detecte d [facility]AL [facility], [facility] [address] [place] [id number] 4 01/06 P210 BCR ABL1 Not Detecte d [facility], [facility] [address] [place] [id number] 4 Medications Date Name Route Dose Frequency [...] physician approval. 2023 active Breast cancer, female 11/21 /2023 Diphenh ydramin e IV intrave nously 50.0 [...] given Active Vital Signs Date Type Value 03/13/2022 Pain Scale 2.00 03/13/2022 Weight 175.60 03/13/2022 Height 66.50 03/13/2022 BMI 27.92 03/13/2022 Intravascular Systolic 124 03/13/2022 Intravascular Diastolic 70 03/13/2022 Body Temperature 97.80 03/13/2022 Heart Beat 81.00 03/13/2022 Respiratory Rate 16.00 03/13/2022 Oxygen Saturation 99.00 03/13/2022 BSA 1.90 09/11/2022 Pain Scale 0.00 09/11/2022 Respiratory Rate 16.00 09/11/2022 Intravascular Systolic 114 09/11/2022 Intravascular Diastolic 76 09/11/2022 Oxygen Saturation 98.00 09/11/2022 BSA 1.91 09/11/2022 Body Temperature 98.20 09/11/2022 Weight 176.20 09/11/2022 Height 66.50 09/11/2022 BMI 28.01 09/11/2022 Heart Beat 71.00 11/06/2022 BSA 1.92 11/06/2022 BMI 28.39 11/06/2022 Weight 178.60 11/06/2022 Pain Scale 0.00 11/06/2022 Intravascular Systolic 114 11/06/2022 Intravascular Diastolic 78 11/06/2022 Oxygen Saturation 98.00 11/06/2022 Respiratory Rate 16.00 11/06/2022 Heart Beat 66.00 11/06/2022 Body Temperature 97.80 11/06/2022 Height 66.50 11/09/2022 Pain Scale 0.00 11/09/2022 Height 66.50 11/16/2022 Body Temperature 96.20 11/16/2022 Heart Beat 82.00 11/16/2022 Respiratory Rate 16.00 11/16/2022 Oxygen Saturation 97.00 11/16/2022 Intravascular Systolic 121 11/16/2022 Intravascular Diastolic 82 11/16/2022 Pain Scale 0.00 11/16/2022 Weight 179.10 11/16/2022 Height 66.50 11/16/2022 BMI 28.47 11/16/2022 BSA 1.92 11/21/2022 Body Temperature 97.50 11/21/2022 Heart Beat 71.00 11/21/2022 Respiratory Rate 16.00 11/21/2022 Oxygen Saturation 99.00 11/21/2022 BSA 1.90 11/21/2022 Pain Scale 6.00 11/21/2022 Weight 175.80 11/21/2022 Height 66.50 11/21/2022 BMI 27.95 11/21/2022 Intravascular Systolic 114 11/21/2022 Intravascular Diastolic 76 11/27/2022 Body Temperature 98.10 11/27/2022 Heart Beat 122.00 11/27/2022 Respiratory Rate 16.00 11/27/2022 Oxygen Saturation 99.00 11/27/2022 BSA 1.87 11/27/2022 Pain Scale 0.00 11/27/2022 Weight 169.30 11/27/2022 Height 66.50 11/27/2022 BMI 26.92 11/27/2022 Intravascular Systolic 144 11/27/2022 Intravascular Diastolic 98 11/28/2022 Body Temperature 98.90 11/28/2022 Heart Beat 57.00 11/28/2022 Respiratory Rate 16.00 11/28/2022 Oxygen Saturation 97.00 11/28/2022 BSA 1.89 11/28/2022 Pain Scale 0.00 11/28/2022 Weight 173.00 11/28/2022 Height 66.50 11/28/2022 BMI 27.50 11/28/2022 Intravascular Systolic 134 11/28/2022 Intravascular Diastolic 76 11/29/2022 Body Temperature 97.80 11/29/2022 Heart Beat 101.00 11/29/2022 Respiratory Rate 16.00 11/29/2022 Height 66.50 11/29/2022 Intravascular Systolic 120 11/29/2022 Intravascular Diastolic 71 11/29/2022 Pain Scale 0.00 11/29/2022 Oxygen Saturation 98.00 12/03/2022 Body Temperature 98.30 12/03/2022 Heart Beat 69.00 12/03/2022 Height 66.50 12/03/2022 Intravascular Systolic 128 12/03/2022 Intravascular Diastolic 86 12/03/2022 Pain Scale 0.00 12/03/2022 Oxygen Saturation 100.00 12/07/2022 Body Temperature 97.90 12/07/2022 Heart Beat 90.00 12/07/2022 Respiratory Rate 16.00 12/07/2022 Oxygen Saturation 98.00 12/07/2022 BSA 1.91 12/07/2022 Pain Scale 0.00 12/07/2022 Weight 177.60 12/07/2022 Height 66.50 12/07/2022 BMI 28.24 12/07/2022 Intravascular Systolic 136 12/07/2022 Intravascular Diastolic 68 12/12/2022 Body Temperature 98.20 12/12/2022 Heart Beat 47.00 12/12/2022 Respiratory Rate 16.00 12/12/2022 Height 66.50 12/12/2022 Intravascular Systolic 106 12/12/2022 Intravascular Diastolic 71 12/12/2022 Pain Scale 0.00 12/12/2022 Oxygen Saturation 97.00 12/13/2022 Body Temperature 96.00 12/13/2022 Heart Beat 101.00 12/13/2022 Respiratory Rate 18.00 12/13/2022 Oxygen Saturation 99.00 12/13/2022 Intravascular Systolic 120 12/13/2022 Intravascular Diastolic 72 12/13/2022 Weight 172.40 12/13/2022 Height 66.50 12/13/2022 BMI 27.41 12/13/2022 BSA 1.89 12/13/2022 Pain Scale 0.00 12/14/2022 Intravascular Systolic 136 12/14/2022 Intravascular Diastolic 74 12/14/2022 Pain Scale 0.00 12/14/2022 Height 66.50 12/14/2022 Body Temperature 98.20 12/14/2022 Heart Beat 107.00 12/14/2022 Respiratory Rate 16.00 12/14/2022 Oxygen Saturation 97.00 12/27/2022 BSA 1.90 12/27/2022 Body Temperature 97.80 12/27/2022 Heart Beat 84.00 12/27/2022 Respiratory Rate 16.00 12/27/2022 Oxygen Saturation 97.00 12/27/2022 Intravascular Systolic 104 12/27/2022 Intravascular Diastolic [...] Weight 176.90 01/01/2023 Pain Scale 0.00 01/01/2023 Intravascular Systolic 113 01/01/2023 Intravascular Diastolic 64 01/01/2023 Oxygen Saturation 98.00 01/01/2023 Respiratory Rate 16.00 01/01/2023 Body Temperature 98.60 01/01/2023 Heart Beat 83.00 01/03/2023 Pain Scale 0.00 01/03/2023 Body Temperature 98.50 01/03/2023 Heart Beat 78.00 01/03/2023 Oxygen Saturation 98.00 01/03/2023 Intravascular Systolic 109 01/03/2023 Intravascular Diastolic 58 01/03/2023 Height 66.50 01/04/2023 Height 66.50 01/04/2023 Body Temperature 98.30 01/04/2023 Heart Beat 71.00 01/04/2023 Oxygen Saturation 98.00 01/04/2023 Intravascular Systolic 113 01/04/2023 Intravascular Diastolic 71 01/04/2023 Pain Scale 0.00 01/14/2023 Body Temperature 97.90 01/14/2023 Heart Beat 70.00 01/14/2023 Respiratory Rate 20.00 01/14/2023 Oxygen Saturation 99.00 01/14/2023 Intravascular Systolic 108 01/14/2023 Intravascular Diastolic 57 01/14/2023 Height 66.50 01/14/2023 Pain Scale 0.00 01/18/2023 Intravascular Systolic 112 01/18/2023 Intravascular Diastolic 78 01/18/2023 Oxygen Saturation 98.00 01/18/2023 Weight 180.60 01/18/2023 Height 66.50 01/18/2023 BMI 28.71 01/18/2023 BSA 1.93 01/18/2023 Pain Scale 0.00 01/18/2023 Respiratory Rate 17.00 01/18/2023 Heart Beat 74.00 01/18/2023 Body Temperature 96.70 01/23/2023 Intravascular Systolic 104 01/23/2023 Intravascular Diastolic 66 01/23/2023 Pain Scale 0.00 01/23/2023 Weight 174.50 01/23/2023 Height 66.50 01/23/2023 Body Temperature 98.70 01/23/2023 BSA 1.90 01/23/2023 Oxygen Saturation 97.00 01/23/2023 Respiratory Rate 16.00 01/23/2023 Heart Beat 77.00 01/23/2023 BMI 27.74 01/24/2023 Body Temperature 97.70 01/24/2023 Heart Beat 82.00 01/24/2023 Respiratory Rate 16.00 01/24/2023 Oxygen Saturation 99.00 01/24/2023 Intravascular Systolic 112 01/24/2023 Intravascular Diastolic 67 01/24/2023 Pain Scale 0.00 01/24/2023 Height 66.50 01/29/2023 Intravascular Systolic 123 01/29/2023 Intravascular Diastolic 78 01/29/2023 Pain Scale 0.00 01/29/2023 Weight 170.20 01/29/2023 Height 66.50 01/29/2023 Oxygen Saturation 96.00 01/29/2023 BSA 1.88 01/29/2023 Body Temperature 98.40 01/29/2023 Heart Beat 89.00 01/29/2023 Respiratory Rate 16.00 01/29/2023 BMI 27.06 01/30/2023 Respiratory Rate 16.00 01/30/2023 Oxygen Saturation 98.00 01/30/2023 Intravascular Systolic 115 01/30/2023 Intravascular Diastolic 66 01/30/2023 Pain Scale 0.00 01/30/2023 Height 66.50 01/30/2023 Heart Beat 78.00 01/30/2023 Body Temperature 97.90 01/31/2023 Body Temperature 98.50 01/31/2023 Heart Beat 82.00 01/31/2023 Respiratory Rate 16.00 01/31/2023 Oxygen Saturation 98.00 01/31/2023 Pain Scale 0.00 01/31/2023 Intravascular Systolic 113 01/31/2023 Intravascular Diastolic 71 01/31/2023 Height 66.50 02/05/2023 Height 66.50 02/05/2023 Weight 174.40 02/05/2023 Pain Scale 3.00 02/05/2023 Body Temperature 99.10 02/05/2023 BSA 1.90 02/05/2023 Respiratory Rate 16.00 02/05/2023 Intravascular Systolic 110 02/05/2023 Intravascular Diastolic 76 02/05/2023 Oxygen Saturation 96.00 02/05/2023 BMI 27.73 02/05/2023 Heart Beat 112.00 02/07/2023 Height 66.50 02/07/2023 Pain Scale 0.00 02/07/2023 Intravascular Systolic 94 02/07/2023 Intravascular Diastolic 64 02/07/2023 Respiratory Rate 16.00 02/07/2023 Heart Beat 82.00 02/07/2023 Body Temperature 97.00 02/07/2023 Oxygen Saturation 93.00 02/08/2023 BSA 1.92 02/08/2023 BMI 28.55 02/08/2023 Body Temperature 97.70 02/08/2023 Heart Beat 77.00 02/08/2023 Respiratory Rate 16.00 02/08/2023 Oxygen Saturation 99.00 02/08/2023 Intravascular Systolic 104 02/08/2023 Intravascular Diastolic 68 02/08/2023 Pain Scale 0.00 02/08/2023 Weight 179.60 02/08/2023 Height 66.50 02/12/2023 Body Temperature 98.30 02/12/2023 BMI 28.08 02/12/2023 Height 66.50 02/12/2023 Weight 176.60 02/12/2023 BSA 1.91 02/12/2023 Intravascular Systolic 97 02/12/2023 Intravascular Diastolic 66 02/12/2023 Oxygen Saturation 98.00 02/12/2023 Respiratory Rate 16.00 02/12/2023 Heart Beat 80.00 02/12/2023 Pain Scale 0.00 02/19/2023 Body Temperature 97.30 02/19/2023 Heart Beat [...] Beat 72.00 03/01/2023 Pain Scale 0.00 03/22/2023 BMI 28.09 03/22/2023 Height 66.50 03/22/2023 Weight 176.70 03/22/2023 Pain Scale 0.00 03/22/2023 BSA 1.91 03/22/2023 Oxygen Saturation 99.00 03/22/2023 Respiratory Rate 16.00 03/22/2023 Heart Beat 78.00 03/22/2023 Body Temperature 97.90 03/22/2023 Intravascular Systolic 111 03/22/2023 Intravascular Diastolic 69 04/12/2023 BSA 1.94 04/12/2023 BMI 29.22 04/12/2023 Height 66.50 04/12/2023 Weight 183.80 04/12/2023 Pain Scale 0.00 04/12/2023 Intravascular Systolic 144 04/12/2023 Intravascular Diastolic 72 04/12/2023 Oxygen Saturation 98.00 04/12/2023 Respiratory Rate 14.00 04/12/2023 Body Temperature 97.20 04/12/2023 Heart Beat 72.00 05/03/2023 Body Temperature 97.70 05/03/2023 Heart Beat 77.00 05/03/2023 Respiratory Rate 16.00 05/03/2023 Oxygen Saturation 98.00 05/03/2023 Pain Scale 0.00 05/03/2023 Weight 181.60 05/03/2023 Height 66.50 05/03/2023 BMI 28.87 05/03/2023 BSA 1.93 05/03/2023 Intravascular Systolic 132 05/03/2023 Intravascular Diastolic [...]
--- OUTSIDE RECORDS SUMMARY | 2025-01-25 22:55 | XMS_ITS ---
Author Name Interface, [id number] Address [address] [place], [place] [address]N [place] [phone] [facility] Oncology Address [facility] [address] [address] Allergies and Adverse Reactions Plan Reason for Visit Encounters Immunizations Diagnostic Results Medications Problems Vital Signs Notes Section
--- OUTSIDE RECORDS SUMMARY | 2025-01-25 22:55 | XMS_ITS ---
Author Name Interface, [id number] lity Address [address] [place], [place] [address]N [place] [id number] [facility] Oncology Address [facility]0 [address] [address] Allergies and Adverse Reactions Plan Reason for Visit Encounters Immunizations Diagnostic Results Medications Problems Vital Signs Notes Section
--- OUTSIDE RECORDS SUMMARY | 2025-01-25 22:55 | XMS_ITS | Clinical Summary ---
Author Organization [place] Address [address] [place] [address] Care Team Providers Care Pharmaceutical Compounding Supervisor Name Role Phone Gabriella Marte PA-C Primary Care Provider [phone] Allergies Active Allergy Reactions Criticality Noted Date Comments Imatinib Mesylate Rash Low 09/01/2012 Hydrocodone-Acetamino phen Other (See Comments) 10/23/2016 Hallucinations Levonorgestrel-Ethiny l Estrad Headache 09/10/2013 Other reaction(s): Runny Nose Oxycodone Unknown 12/10/2016 Topamax Palpitations Low 06/25/2012 Diazepam 11/06/2022 Hallucinations Medications fluticasone (FLONASE) 50 MCG/ACT nasal spray [place] 2 sprays into both nostrils daily as needed Active nilotinib (TASIGNA) 200 MG capsule Take 200 mg by mouth every morning Active BUPROPION HCL ER, XL, PO Take 300 mg by mouth daily Active propranolol (INDERAL LA) 120 MG 24 hr capsuleIndicati ons:Palpitation s Take 1 capsule (120 mg) by mouth daily 30 capsule 0 4 Active Additional Information Patient taking differently:120 mg Oral2 TIMES DAILY, Reported on 11/06/2022 atorvastatin (LIPITOR) 20 MG tablet 20 mg daily 2 Active Calcium-Magnesi um-Vitamin D 500-250-200 MG-MG-UNIT TABS Take 1 tablet by mouth daily Active hydrOXYzine (ATARAX) 25 MG tablet 25 mg At Bedtime 3 Active montelukast (SINGULAIR) 10 MG tablet 10 mg At Bedtime 3 Active naproxen (NAPROSYN) 500 MG tablet Take 500 mg by mouth as needed 3 Active LORazepam (ATIVAN) 0.5 MG tablet Take 0.5 mg by mouth as needed 3 Active ondansetron (ZOFRAN) 8 MG tablet Take 8 mg by mouth as needed 3 Active omeprazole (PRILOSEC) [address] capsule 20 mg daily 4 Active SUMAtriptan (IMITREX) 50 MG tablet Take 50 mg by mouth at onset of headache for migraine 3 Active desvenlafaxine (PRISTIQ) 100 MG 24 hr tablet Take 100 mg by mouth daily 4 Active Active Problems Problem Noted Date Diagnosed Date Palpitations 07/17/2013 Dyspnea on exertion 07/17/2013 Resolved Problems Problem Noted Date Diagnosed Date Resolved Date Lumbago 03/25/2008 04/27/2008 Social History Tobacco Use Types Packs/Day Years Used Date Smoking Tobacco: Never Passive Smoke Exposure: Never Smokeless Tobacco: Never Tobacco Cessation:Counseling Given: Yes Alcohol Use Standard Drinks/Week Comments No 0 (1 standard drink = 0.6 oz pur e alcohol) Adolescent Education Answer Date Record ed Getting School Help Needed Not on file 02/11 Comments No Sex and Gender Information Value Date Recorded Sex Assigned at Not on file Legal Sex 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 Gender Identity Not on file Sexual Orientation Not on file Last Filed Vital Signs Vital Sign Reading Time Taken Comments Blood Pressure 124/92 11/11/2023 9:06 AM CDT Pulse 54 11/11/2023 9:06 AM CDT Temperature 36.1 C (97 F) 11/11/2023 9:06 AM CDT Respiratory Rate 12 11/11/2023 9:06 AM CDT Oxygen Saturation 99% 11/11/2023 9:06 AM CDT Inhaled Oxygen Concentration - - Weight 78.9 kg (173 lb 14.4 oz) 11/11/2023 6:02 AM CDT Height 167.6 cm (5' 6) 11/11/2023 6:02 AM CDT Body Mass Index 28.07 11/11/2023 6:02 AM CDT Plan of Treatment Health Maintenance Due Date Last Done Comments ADVANCE CARE PLANNING 1955 ANNUAL REVIEW OF HM ORDERS 1955 CT COLONOGRAPHY 1955 FIT 1955 FLEX SIG 1955 LIPID 1955 sDNA (Cologuard) 1955 COVID-19 VACCINE (#1) 1959 ZOSTER VACCINE (1 of 2) 1973 RSV VACCINE (1 - Risk 60-74 years 1-dose series) 2014 FALL RISK ASSESSMENT 2019 MEDICARE ANNUAL WELLNESS VISIT 05/14/2024 05/14/2023, 08/22/2020 PHQ-2 (once per calendar year) 2024 INFLUENZA VACCINE (#1) 2025 , 03/14/2023, 03/06/2021, Additional history exists MAMMO SCREENING 11/04/2025 11/05/2023, 10/18, 10/23/2022, Additional history exists COLONOSCOPY 11/13/2025 11/14/2015, 11/24/2004 COLORECTAL CANCER SCREENING 11/13/2025 DIABETES SCREENING 03/30/2027 03/30/2024, 0 06/29/2018, 07/17/2013, Additional history exists DTAP/TDAP/TD VACCINE (3 - Td or Tdap) 04/30/2028 04/30/2018, 02/23/2008, 01/27/1998 DEXA 06/07/2037 06/07/2022 HEPATITIS C SCREENING Completed 04/29/2013 PNEUMOCOCCAL VACCINE 50+ YEARS Completed 03/13/2021, 02/10/2019 HPV VACCINE (No Doses Required) Completed MENINGITIS VACCINE Aged Out No longer eligible based on patient's age to complete this topic Medical Devices Implanted Type Area Fire Investigation Manager Device Identifier Shelf Expiration Date Model / Serial / Lot Cath Port Mri Powerport 8fr Sl [id number] - [id number] Implanted:Qty: 1 on 11/12/2022 by Karmen Erickson MD at [facility] Catheter Left: Chest [employer] 07/17/2024 [id number] / / [id number] Procedures Procedure Name Priority Date/Time Associated Diagnosis Comments HEMOGLOBIN A1C Routine 03/30/2024 11:37 AM BUSINESS CENTER MANAGER Peripheral nerve disorder MA DIAGNOSTIC RIGHT W YO Routine 10/23/2022 9:28 AM CDT Abnormal mammogram COLONOSCOPY Routine 11/24/2004 3:20 PM CDT from Last 3 Months or Most Recently Relevant to Health Maintenance Results * Hemoglobin A1c (03/30/2024 11:37 AM BUSINESS CENTER MANAGER) Estimated Average Glucose 114 <117 mg/dL 03/30/2024 11:57 AM BUSINESS CENTER MANAGER [facility] Hemoglobin A1C 5.6 <5.7 % 03/30/2024 11:57 AM BUSINESS CENTER MANAGER [facility] Comment: Normal <5.7% Prediabetes 5.7-6.4% Diabetes 6.5% or higher Note: Adopted from ADA consensus guidelines. Blood STRUCTURE OF RIGHT UPPER LIMB / Unknown Venipuncture / Unknown 03/30/2024 11:37 AM BUSINESS CENTER MANAGER 03/30/2024 11:38 AM BUSINESS CENTER MANAGER us Edwar Moseley MD LAB - BLOOD ORDERABLES Final Result [facility] [address] [facility] (1st floor, no room number) [place] [address] * MA Diagnostic Right w/Yo (10/23/2022 9:28 AM CDT) Anatomical Region Laterality Modality Breast Bilateral Mammography Addenda Addendum by Karmen Cervantes MD on 10/23/2022 2:48 PM CDT RECOMMENDED FOLLOW-UP: Biopsy. KARMEN CERVANTES MD Addendum by Karmen Cervantes MD on 10/23/2022 2:48 PM CDT RECOMMENDED FOLLOW-UP: Biopsy. KARMEN CERVANTES MD Impressions 10/23/2022 1:15 PM CDT IMPRESSION: Solitary right breast mass with solitary abnormal axillary node. Recommend ultrasound-guided biopsy of both. Patient has a history of CML which may be relevant to node pathology . BI-RADS CATEGORY: 4 - Suspicious. RECOMMENDED FOLLOW-UP: Annual Mammography. KARMEN CERVANTES MD Narrative 10/23/2022 1:15 PM CDT MA DIAGNOSTIC RIGHT W/ YO, US BREAST RIGHT LIMITED 1-3 QUADRANTS - 10/23/2022 1:09 PM HISTORY: Recall from screening mammogram. Personal history of chronic CML, diagnosed in approximately 2012. COMPARISON: 10/11/2022. BREAST DENSITY: Scattered fibroglandular densities. FINDINGS: Diagnostic mammogram with tomosynthesis: Additional views confirm a mass at 7:00 middle depth. Targeted ultrasound: Targeted ultrasound shows a 0.8 x 0.5 x 0.6 cm indistinct hypoechoic round mass at 7:00 5 cm from the nipple. There is an enlarged lymph node in the right axilla with irregular cortical thickening up to 4 mm. us Gabriella Marte PA-C IMG MAMMOGRAPHY ORDERABLES Ed ited Result - Final * COLONOSCOPY (11/24/2004 3:20 PM CDT) COLONOSCOPY [facility] Patient Name: Calista Guy Gender: F Exam Date: 11/24/2004 03:20 PM Procedure: Colonoscopy Indications: FH of Colon Cancer - 1st degree relative Providers: Ron Zhao MD Referring MD: Fabricio Demarco MD Medicines: Midazolam 3 mg IV, Fentanyl 100 mcg IV Complications: No immediate complications Procedure: The risks and benefits of the procedure and the sedation options and risks were discussed with the patient. All questions were answered and informed consent was obtained. Mental Status Examination: normal. Respiratory Examination: clear to auscultation. CV Examination: normal. ASA Grade Assessment: P1 A normal healthy patient. After reviewing the risks and benefits, the patient was deemed in satisfactory condition to undergo the procedure. The anesthesia plan was to use conscious sedation. Immediately prior to administration of medications, the patient was re-assessed for adequacy to receive sedatives. The heart rate, respiratory rate, oxygen saturations, blood pressure, adequacy of pulmonary ventilation, and response to care were monitored throughout the procedure. The physical status of the patient was re-assessed after the procedure. After obtaining informed consent, the colonoscope was passed under direct vision. Throughout the procedure, the patient's blood pressure, pulse, and oxygen saturations were monitored continuously. The Colonoscope P-52 #[id number] was introduced through the anus and advanced to the cecum, identified by appendix & IC valve. The quality of the prep was good. The colonoscopy was accomplished without difficulty. The patient tolerated the procedure well. Findings: Non-bleeding internal hemorrhoids were found. Remainder of the colon was negative Impression: - Internal hemorrhoids were found. Recommend: - Use fiber, for example Citrucel, Fibercon, Konsyl or Metamucil BID - Repeat colonoscopy for surveillance in 5 years. _ Ron Zhao MD Signed Date: 11/24/2004 3:50:06 PM Note generated on 11/24/2004 3:18:26 PM RADIOLOGY RESULTS COLONOSCOPY RADIOLOG Y RESULTS 11/24/2004 3:20 PM CDT us Ron Zhao MD PROCEDURES Final Res ult RADIOLOGY RESULTS from Last 3 Months or Most Recently Relevant to Health Maintenance Insurance UCARE MEDICARE UCARE MEDICARE [employer] Advance Directives For more information, please contact: [phone] * Full Code (Latest Code Status on File) Date Activated Date Inactivated Comments 07/17/2013 9:35 PM 07/19/2013 4:53 PM Care Teams Pharmaceutical Compounding Supervisor Relationship Specialty Start Date End Date Gabriella Marte, PATayoC [facility] [id number] [id number] PCP - General Physician Paint Mixer 06/29/18
[2025-01-25 23:12] LABS: PCR FLU A Negative PCR FLU A (Negative); PCR FLU B Negative PCR FLU B (Negative); PCR RSV Negative PCR RSV (Negative); SARS PCR* Negative SARS-CoV-2 (Negative)
== END 2025-01-25 22:59 | disposition home or self-care (01) ==
PROVIDERS: Emergency Provider Family Medicine
DX: H65.92 Unspecified nonsuppurative otitis media, left ear (principal)
CPT/HCPCS: 87631; 99283; 99284; A9270; J7512

== ENCOUNTER 2025-02-08 12:58 | Emergency (ER) | payer MEDICARE, SELFPAY ==
--- OUTSIDE RECORDS SUMMARY | 2009-06-30 13:42 | XMS_ITS | Continuity of Care Document ---
Author Organization RACHEAL Campos Address [address] [place] [address] Phone Care Team Providers Care Dry Lumber Grader Name Role Phone Ramana JONES MD, Cayden Unavailable Unavailable Advance Directives Directive Yes / No Effective Date File Name No Information Encounters Encounter Description Practice Location Reason(s) For Visit Diagnoses Date Provider Providers Copied on Encounter [facility], [address], [place], [place], [id number], tel:[phone] No Information 0 Ramana Rodarte. [address], [place], [place], [facility], . tel:[phone] Referring Provider: Cayden Garcia, [address] [place], [place], [facility]. tel:[phone] Family History Family Member Type Diagnosis Age At Onset No Information Payers Payer name Insurance type Covered constitution party ID Moira camp(s) [facility] [id number] Social History Type Description Quantity Date Captured Comments Sex Female Smoking Status No Information Chief Complaint And Reason For Visit No Information Reason For Referral Reason For Referral No Information History Of Present Illness Encounter Date Complaint History Of Prese nt Illness No Information Functional Status Date Functional Assessmen t No Information Instructions Date Instruction Additional Infor mation No Information Assessments Type Assessment Date No Information Patient Care Teams Name Effective Dates (start - stop) Status Members No Information
--- OUTSIDE RECORDS SUMMARY | 2009-06-30 13:42 | XMS_ITS | Continuity of Care Document ---
Author Organization RACHEAL Campos Address [address] [place] [address] Phone Care Team Providers Care Light Rail Signal Technician Name Role Phone Ramana JONES MD, Cayden Unavailable Unavailable Advance Directives Directive Yes / No Effective Date File Name No Information Encounters Encounter Description Practice Location Reason(s) For Visit Diagnoses Date Provider Providers Copied on Encounter [facility], [address], [place], [place], [id number], tel:[phone] No Information 0 Ramana Rodarte. [address], [place], [place], [facility], . tel:[phone] Referring Provider: Cayden Garcia, [address] [place], [place], [facility]. tel:[phone] Family History Family Member Type Diagnosis Age At Onset No Information Payers Payer name Insurance type Covered constitution party ID Moira camp(s) [facility] [id number] Social History Type Description Quantity Date Captured [...]
--- OUTSIDE RECORDS SUMMARY | 2024-02-06 05:05 | XMS_ITS | Continuity of Care Document ---
Author Organization [facility] Address [address] [address] [place] [address] Phone Care Team Providers Care Associate Director Qa Name Role Phone Travis Main MD, Britton Unavailable Unavailabl e Allergies, Adverse Reactions, Alerts Substance Reaction Status Criticality IMATINIB MESYLATE Rash Active No Informa tion topiramate rapid heart beat Active No Informat ion Medications Medication Instructions Dosage Effective Dates (start - stop) Status Comments Tasigna 200 mg capsule take 2 capsule by oral route every 12 hours ; swallow whole. Do not eat any food for at least 2 hrs before or 1 hrafter dose 400 MG - Active Inderal LA 120 mg capsule,extended release take 1 capsule by oral route every day 120 MG - Active bupropion HCl XL 300 mg 24 hr tablet, extended release take 1 tablet by oral route every day 300 MG - Active citalopram 20 mg tablet take 1 tablet by oral route every day 20 MG - Active omeprazole 20 mg capsule,delayed release take 1 capsule by ORAL route 2 times every day before a meal 20 MG - Active Anna Allergy 180 mg tablet take 1 tablet by ORAL route every day for 1 as needed 180 MG - Active Imitrex 100 mg tablet take 1 tablet by O RAL route as needed for migraines 100 MG - Active Procedures Procedure Date Colonoscopy Flex; Dx (sep Pro) 16 Advance Directives Directive Yes / No Effective Date File Name No Information Encounters Encounter Description Practice Location Reason(s) For Visit Diagnoses Date Provider Providers Copied on Encounter [facility], [address] [address], [place], [id number], [place] tel:[phone] [facility] No Information 4 Travis Jarquin. [address], [facility] [address], [place], [id number] , [place]. tel: [phone] [facility], [address] [address], [place], [id number], [place] tel:[phone] Dewayne [facility] Screening ColonoscopyFamily history of cancer of GI tractEncounter for screening for malignant neoplasm of colonFamily history of malignant neoplasm of digestive organs 6 Marilyn Reddy. [address], [facility] [address], [place], [place], [id number] , [place]. tel: [phone] Family History Family Member Type Diagnosis Age At Onset Brother Problem (finding) Colon polyps Mother Problem (finding) Lymphoma Brother Problem (finding) Alive and well Son Problem (finding) Alive and well Daughter Problem (finding) Alive and well Father Problem (finding) Mother Problem (finding) cancer of colon 65 Mother Problem (finding) Alive and well Payers Payer name Insurance type Covered democrat ID Authoriza tion(s) No Information Social History Type Description Quantity Date Captured Comments Sex Female Smoking Status No Information Chief Complaint And Reason For Visit No Information Reason For Referral Reason For Referral No Information History Of Present Illness Encounter Date Complaint History Of Prese nt Illness No Information Functional Status Date Functional Assessmen t No Information Instructions Date Instruction Additional Infor lesley Colon Cancer Prevention Related to Screening Colonoscopy Assessments Type Assessment Date No Information Patient Care Teams Name Effective Dates (start - stop) Status Members No Information
--- OUTSIDE RECORDS SUMMARY | 2025-02-08 13:01 | XMS_ITS ---
Author Name Interface, [id number] lity Address [address] [place], [place] [address]N [place] [phone] [facility] Oncology Address [facility]0 [address] [address] Allergies and Adverse Reactions Plan Reason for Visit Encounters Immunizations Diagnostic Results Medications Problems Vital Signs Notes Section
--- OUTSIDE RECORDS SUMMARY | 2025-02-08 13:01 | XMS_ITS ---
Author Name Interface, [id number] lity Address [address] [place], [place] [address]N [place] [id number] [facility] Oncology Address [facility]0 [address] [address] Allergies and Adverse Reactions Plan Reason for Visit Encounters Immunizations Medications Problems Vital Signs Notes Section
--- OUTSIDE RECORDS SUMMARY | 2025-02-08 13:02 | XMS_ITS ---
Author Name Interface, [id number] lity Address [address] [place] [address] Oncology Address [facility]0 [address] [address] Allergies and Adverse Reactions Plan Reason for Visit Encounters Immunizations Diagnostic Results Medications Problems Vital Signs
--- OUTSIDE RECORDS SUMMARY | 2025-02-08 13:02 | XMS_ITS ---
Author Name Interface, [id number] lity Address [address] [facility] [address] [address] [facility] Oncology Address [address] [facility] [address] [address] Allergies and Adverse Reactions Medication/Group Name Reaction [...] [address] [place] [id number] 0 01/06 CBC w/ auto diff HGB g/dL 11.3 15.2 12.8 FINAL Nicole [place] [facility] [place] [facility] , [address] [place] [id number] 0 01/06 CBC w/ auto diff PLT K/uL 113.0 364.0 153 FINAL Nicole Ya [place] [facility] , [address] [place] [id number] 0 01/06 CBC w/ auto diff Augustus # (ANC) K/uL 1.6 6.6 2.8 FINAL Nicole Ya [place] [facility] , [address] [place] [id number] 0 01/06 CBC w/ auto diff Augustus % % 43.0 74.0 61.5 FINAL Nicole Ya [place] [facility] , [address] [place] [id number] 0 01/06 CBC w/ auto diff IG % % 0.0 0.5 0.4 FINAL Nicole Ya [place] [facility] , [address] [place] [id number] 0 01/06 CBC w/ auto diff IG # K/uL 0.0 0.03 0.02 FINAL Nicole Ya [place] [facility] , [address] [place] [id number] 0 01/06 CBC w/ auto diff LY % % 14.0 41.0 25.4 FINAL Nicole Ya [place] [facility] , [address] [place] [id number] 0 01/06 CBC w/ auto diff MO % % 6.0 15.0 12.7 FINAL Nicole Ya [place] [facility] , [address] [place] [id number] 0 01/06 CBC w/ auto diff EO % % 0.0 7.0 0.0 FINAL Nicole Ya [place] [facility] , [address] [place] [id number] 0 01/06 CBC w/ auto diff BA % % 0.0 2.0 0.0 FINAL Nicole Ya [place] [facility] , [address] [place] [id number] 0 01/06 CBC w/ auto diff LY # K/uL 0.4 3.6 1.1 FINAL Nicole Ya [place] [facility] , [address] [place] [id number] 0 01/06 CBC w/ auto diff NRBC % #/100W BC 0.0 0.2 0.0 FINAL Nicole Ya [place] [facility] , [address] [place] [id number] 0 01/06 CBC w/ auto diff MO # K/uL 0.2 1.3 0.6 FINAL Nicole Ya [place] [facility] , [address] [place] [id number] 0 01/06 CBC w/ auto diff EO # K/uL 0.0 0.6 0.0 FINAL Nicole Ya [place] [facility] , [address] [place] [id number] 0 01/06 CBC w/ auto diff BA # K/uL 0.0 0.2 0.0 FINAL Nicole Ya [place] [facility] , [address] [place] [id number] 0 01/06 CBC w/ auto diff RBC M/uL 3.9 5.1 3.69 Low FINAL Nicole Ya [place] [facility] , [address] [place] [id number] 0 01/06 CBC w/ auto diff HCT % 35.0 48.0 37.6 FINAL Nicole Ya [place] [facility] , [address] [place] [id number] 0 01/06 CBC w/ auto diff MCV fL 80.0 104.0 101.9 FINAL Nicole Ya [place] [facility] , [address] [place] [id number] 0 01/06 CBC w/ auto diff MCH pg 26.0 35.0 34.7 FINAL Nicole Ya [place] [facility] , [address] [place] [id number] 0 01/06 CBC w/ auto diff MCHC g/dL 30.0 35.0 34.0 FINAL Nicole Ya [place] [facility] , [address] [place] [id number] 0 01/06 CBC w/ auto diff MPV fL 9.5 13.4 9.6 FINAL Nicole Ya [place] [facility] , [address] [place] [id number] 0 01/06 CBC w/ auto diff RDW % 11.4 16.1 13.00 FINAL Nicole Ya [place] [facility] , [address] [place] [id number] 0 01/06 CMP Album in g/dL 3.5 5.0 3.9 FINAL Nicole [place] * [facility] [place] [facility] , [address] [place] [id number] 0 01/06 CMP Alkal ine phosp hatas e U/L 36.0 125.0 79 FINAL Nicole Ya * [facility] , [address] [facility] [address] [facility] [id number] 0 01/06 CMP ALT/S GPT U/L 0.0 34.0 24 FINAL Nicole Ya * [facility] , [address] [facility] [address] [facility] [id number] 0 01/06 CMP AST/S GOT U/L 14.0 36.0 33 FINAL Nicole Ya * [facility] , [address] [facility] [address] [facility] [id number] 0 01/06 CMP BUN mg/dL 7.0 17.0 14.0 FINAL Nicole Ya * [facility] , [address] [facility] [address] [facility] [id number] 0 01/06 CMP Calci um mg/dL 8.4 10.2 8.9 FINAL Nicole Ya * [facility] , [address] [facility] [address] [facility] [id number] 0 01/06 CMP Chlor rakan mmol/L 96.0 107.0 109 High FINAL Nicole Ya * [facility] , [address] [facility] [address] [facility] [id number] 0 01/06 CMP CO2 mmol/L 22.0 30.0 [...] hour stability window. FINAL Nicole Ya * [facility] , [address] [facility] [address] [facility] [id number] 0 01/06 CMP Creat inine mg/dL 0.66 1.25 1.00 FINAL Nicole Ya * [facility] On[facility] , [facility]0 [facility] [address] [id number] 0 01/06 CMP GFR estim ate ml/min /1.73m ^2 60.2 GFR is calculate d using the CKD-EPI equation. FINAL Nicole Ya * [facility] On[facility] , [facility]0 [facility] [address] [id number] 0 01/06 CMP Gluco se mg/dL 74.0 100.0 88 FINAL Nicole Ya * [facility] On[facility] , [facility]0 [facility] [address] [id number] 0 01/06 CMP Potas sium mmol/L 3.5 5.1 4.1 FINAL Nicole Ya * [facility] On[facility] , [facility]0 [facility] [address] [id number] 0 01/06 CMP Sodiu m mmol/L 137.0 145.0 141 FINAL Nicole Ya * [facility] , [facility]0 [facility] [address] [id number] 0 01/06 CMP Bilir ubin, total mg/dL 0.2 1.3 0.8 FINAL Nicole Ya * [facility] , [facility]0 [facility] [address] [id number] 0 01/06 CMP Total prote in g/dL 6.3 8.2 6.2 Low FINAL Nicole Ya * [facility] , [facility]0 [facility] [address] [id number] 0 01/06 PRIOR RESUL T See Report FINAL Nicole Ya [facility], [facility] [address] [facility] [id number] 4 01/06 SOURC E: Periphe ral Blood FINAL Nicole Ya [facility], [facility] [address] [place] [id number] 4 01/06 BCR ABL1/ ABL1 % % 0.000 FINAL Nicole Ya [facility], [facility] [address] [place] [id number] 4 01/06 BCR ABL1/ ABL1 % (IS) % 0.000 FINAL Nicole Ya [facility], [facility] [address] [place] [id number] 4 01/06 INTER PRETA TION see note [...] l informati on, please refer tohttp:// education .TrueVault/faq/F AQ72(This link is being provided forinform ational/e ducationa l purposes only.)Ass ay sensitivi ty is at least 4.5-logs below baselineB CR-ABL1 transcrip t levels but is dependent onquantit y and quality of RNA used for testing and thecellul arity of the sample.Th is test was developed and its analytica lperforma nce character istics have been determine dby [facility] , [place], [place].It has not been cleared or approved by the FDA. Thisassay has been validated pursuant to the CLIAregul ations and is used for clinical purposes. Reviewed by Aiden Hui M.D., Ph.D.Staf f Pathologi st FINAL Nicole Ya [facility], [facility] [address] [facility] [id number] 4 01/06 P190 BCR ABL1 Not Detecte d LELIA NEGRETE, [facility] [address] [facility] [id number] 4 01/06 P210 BCR ABL1 Not Detecte d LELIA NEGRETE [facility] [address] [facility] [id number] 4 Medications Date Name Route Dose Frequency [...] Of : 1955 Today's Provider:?Tiara Coronado RN, GENERATION ENGINEER, MA, AOCN Date of Service:?01/20/2025 Attending Physician:?Nicole Ya (Hematology/Oncology) Referring Provider: ? HEMATOLOGY/ MEDICAL ONCOLOGY FOLLOW UP VISIT Reason for Visit Follow-up right breast cellulitis Assessment 1.?Stage IIA Right breast cancer ???(10/25/2022) treatment intent: Curative??right-sided breast cancer clinically, T1??N1 M0, invasiveductal cancer, ER negative??[very weakly positive], NM negative, HER2/augustus 3+ ?Treatment intent is curative, [...] ?Lymph node metastatic carcinoma ??? ER negative, NM negative, HER2/augustus 3+ on??breast ??? ER low +1 to 5%, NM -0%, HER2/augustus 3+ lymph node 2.?? 12/24/2022: [...] children live??locally-1 son??lives on a farm near [facility]. ??Another son lives about 9 miles away near [place].?? One child lives in [place].?? She is a supportive group of friends.?? 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 Habits:?? Nonsmoker, does not drink ETOH Vital [...] (T1b, N1, M0, G2, ER Status: Negative, NM Status: Negative, HER-2/augustus Status: Positive) Histopathologic Type: [...] Of : 1955 Today's Provider:?Tiara Coronado RN, GENERATION ENGINEER, MA, AOCN Date of Service:?01/06/2025 Attending Physician:?Nicole Ya (Hematology/Oncology) Referring Provider: ? HEMATOLOGY/ MEDICAL ONCOLOGY FOLLOW UP VISIT Reason for Visit Interim visit to evaluate right breast changes Assessment 1.?Stage IIA Right breast cancer ???(10/25/2022) treatment intent: Curative??right-sided breast cancer clinically, T1??N1 M0, invasiveductal cancer, ER negative??[very weakly positive], NM negative, HER2/augustus 3+ ?Treatment intent is curative, [...] ?Lymph node metastatic carcinoma ??? ER negative, NM negative, HER2/augustus 3+ on??breast ??? ER low +1 to 5%, NM -0%, HER2/augustus 3+ lymph node 2.?? 12/24/2022: [...] children live??locally-1 son??lives on a farm near [facility]. ??Another son lives about 9 miles away near [place].?? One child lives in [place].?? She is a supportive group of friends.?? 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 Habits:?? Nonsmoker, does not drink ETOH Vital Signs Blood pressure: 130/88, Pulse: 50, Temperature: 96.4 F, Respirations: 16, O2 sat: 96%, Pain Scale: 1, Height: 66.5 in, Weight: 170.1 lb, BSA: 1.88, BMI: 27.04 kg/m2 Covid-19 vaccine ([employer]in[employer]) (03/13/2022), Patient declined/rejected; Flu vaccine - Adult [...] (T1b, N1, M0, G2, ER Status: Negative, NM Status: Negative, HER-2/augustus Status: Positive) Histopathologic Type: [...] Surveys/Consents/Other Discussions Tiara Coronado RN, JOAN, SPIKE, NORMA CC: Gabriella Marte PA-C FAX Electronically signed by Tiara Coronado RN, JOAN, SPIKE, NORMA 01/06/2025 14:58 CDT
--- OUTSIDE RECORDS SUMMARY | 2025-02-08 13:02 | XMS_ITS | CCD ---
Author Name Interface, [id number] lity Address [address] [facility] [address] [address] Organization [facility] Address [address] [facility] [address] [place] [address] Care Team Providers Care Environmental Permitting Specialist Name Role Phone Nicole Ya MD Unavailable Allergies and Adverse Reactions Medication/Group Name Reaction Severity Date imatinib mesylate 01/20/2025 topiramate 01/20/2025 Care Plan Date Type Value 01/20/2025 APPOINTMENT OV 30 MIN 01/06/2025 APPOINTMENT OV 30 MIN 01/06/2025 APPOINTMENT LAB 15 MIN 06/15/2024 APPOINTMENT PBR 30 MIN 06/15/2024 APPOINTMENT OV 20 MIN 06/15/2024 APPOINTMENT LAB 15 MIN 03/23/2024 APPOINTMENT OV 30 MIN 06/15/2024 LABORDER CMP 06/15/2024 LABORDER CBC w/ auto diff 06/15/2024 LABORDER BCR/ABL1 Quant 01/06/2025 LABORDER CMP 01/06/2025 LABORDER CBC w/ auto diff 01/06/2025 LABORDER BCR/ABL1 Quant Reason for Visit OV 30 MIN Encounters Date Name 01/20/2025 Breast cancer, femal e 01/20/2025 Chronic myeloid leuk emia, disease (disorder) 01/20/2025 Cellulitis of breast (disorder) 01/20/2025 Lymphedema Functional Status Date Name/Question Score/Answer 06/07/2017 Karnofsky performance status 100 06/24/2012 Karnofsky performance status 100 06/25/2018 Karnofsky performance status 100 06/26/2013 Karnofsky performance status 100 07/04/2012 Karnofsky performance status 100 08/01/2012 Karnofsky performance status 100 08/02/2015 Karnofsky performance status 100 08/11/2014 Karnofsky performance status 100 09/05/2016 Karnofsky performance status 100 09/09/2012 Karnofsky performance status 100 09/18/2017 Karnofsky performance status 100 09/24/2018 Karnofsky performance status 100 09/25/2013 Karnofsky performance status 100 10/08/2012 Karnofsky performance status 100 11/03/2014 Karnofsky performance status 100 11/04/2012 Karnofsky performance status 100 11/22/2015 Karnofsky performance status 100 12/05/2016 Karnofsky performance status 100 12/24/2017 Karnofsky performance status 100 12/30/2012 Karnofsky performance status 100 12/30/2013 Karnofsky performance status 100 12/31/2018 Karnofsky performance status 100 02/01/2015 Karnofsky performance status 100 02/21/2016 Karnofsky performance status 100 03/06/2017 Karnofsky performance status 100 03/26/2018 Karnofsky performance status 100 03/27/2013 Karnofsky performance status 100 03/31/2014 Karnofsky performance status 100 05/04/2015 Karnofsky performance status 100 09/11/2022 Karnofsky performance status 90 03/13/2022 Karnofsky performance status 90 11/28/2022 Karnofsky performance status 90 03/01/2023 Karnofsky performance status 80 01/23/2023 Karnofsky performance status 90 11/06/2022 ECOG performance status - grade 0 0 02/05/2023 Karnofsky performance status 70 12/07/2022 Karnofsky performance status 90 11/21/2022 Karnofsky performance status 80 01/18/2023 ECOG performance status - grade 1 1 11/08/2023 Karnofsky performance status 90 07/26/2023 Karnofsky performance status 90 08/16/2023 Karnofsky performance status 90 09/27/2023 Karnofsky performance status 90 09/06/2023 Karnofsky performance status 90 05/03/2023 Karnofsky performance status 90 08/30/2020 Karnofsky performance status 100 03/23/2024 Karnofsky performance status 90 03/06/2021 Karnofsky performance status 70 12/13/2022 Karnofsky performance status 90 02/10/2020 Karnofsky performance status 100 01/20/2025 Karnofsky performance status 100 01/06/2025 Karnofsky performance status 100 06/01/2019 Karnofsky performance status 100 04/02/2019 Karnofsky performance status 100 01/23/2025 Are you deaf, or do you have ser ious difficulty hearing? Yes 01/23/2025 Are you blind or do you have serious difficulty seeing, even when wearing glasses? No 01/23/2025 Because of a physica l, mental, or emotional condition, do you have serious difficulty concentrating, remembering, or making decisions? No 01/23/2025 Do you have serious difficulty w alking or climbing stairs? Yes 01/23/2025 Do you have difficulty dressing or bathing? No 01/23/2025 Because of a physica l, mental, or emotional condition, do you have difficulty doing errands alone such as visiting a physician's office or shopping? No Immunizations Date Name Route Dose Instructions Refusal Reason Stat us Flu vaccine - Adult Comp leted Covid-19 vaccine (Moderna) Patient declined/rejected Not Administered Diagnostic Results Date Type Test Units Lower Limit Upper Limit Result Flag Comments Status Ordered By Specimen Source Lab Address 05/21 [facility] other lab See brass sorter d 01/06 CBC w/ auto diff Augustus # (ANC) K/uL 1.6 6.6 2.8 FINAL Nicole Hines [facility] , [address] [place] [id number] 0 01/06 CBC w/ auto diff IG % % 0.0 0.5 0.4 FINAL Nicole Hines [facility] , [address] [place] [id number] 0 01/06 CBC w/ auto diff MO # K/uL 0.2 1.3 0.6 FINAL Nicole Hines [facility] , [address] [place] [id number] 0 01/06 CBC w/ auto diff MCV fL 80.0 104.0 101.9 FINAL Nicole Ya [place] [facility] [place] [facility] , [address] [place] [id number] 0 01/06 CBC w/ auto diff IG # K/uL 0.0 0.03 0.02 FINAL Nicole Ya [place] [facility] [place] [facility] , [address] [place] [id number] 0 01/06 CBC w/ auto diff MO % % 6.0 15.0 12.7 FINAL Nicole Ya [place] [facility] [place] [facility] , [address] [place] [id number] 0 01/06 CBC w/ auto diff EO # K/uL 0.0 0.6 0.0 FINAL Nicole Ya [place] [facility] [place] [facility] , [address] [place] [id number] 0 01/06 CBC w/ auto diff EO % % 0.0 7.0 0.0 FINAL Nicole Ya [place] [facility] [place] [facility] , [address] [place] [id number] 0 01/06 CBC w/ auto diff RBC M/uL 3.9 5.1 3.69 Low FINAL Nicole Ya [place] [facility] [place] [facility] , [address] [place] [id number] 0 01/06 CBC w/ auto diff MPV fL 9.5 13.4 9.6 FINAL Nicole Ya [place] [facility] [place] [facility] , [address] [place] [id number] 0 01/06 CBC w/ auto diff WBC K/uL 3.0 8.9 4.5 FINAL Nicole Ya [place] [facility] [place] [facility] , [address] [place] [id number] 0 01/06 CBC w/ auto diff PLT K/uL 113.0 364.0 153 FINAL Nicole Ya [place] [facility] [place] [facility] , [address] [place] [id number] 0 01/06 CBC w/ auto diff BA % % 0.0 2.0 0.0 FINAL Nicole Ya [place] [facility] [place] [facility] , [address] [place] [id number] 0 01/06 CBC w/ auto diff BA # K/uL 0.0 0.2 0.0 FINAL Nicole Ya [place] [facility] [place] [facility] , [address] [place] [id number] 0 01/06 CBC w/ auto diff HGB g/dL 11.3 15.2 12.8 FINAL Nicole Ya [place] [facility] [place] [facility] , [address] [place] [id number] 0 01/06 CBC w/ auto diff RDW % 11.4 16.1 13.00 FINAL Nicole Ya [place] [facility] [place] [facility] , [address] [place] [id number] 0 01/06 CBC w/ auto diff LY % % 14.0 41.0 25.4 FINAL Nicole Ya [place] [facility] [place] [facility] , [address] [place] [id number] 0 01/06 CBC w/ auto diff LY # K/uL 0.4 3.6 1.1 FINAL Nicole Ya [place] [facility] [place] [facility] , [address] [place] [id number] 0 01/06 CBC w/ auto diff MCH pg 26.0 35.0 34.7 FINAL Nicole Ya [place] [facility] [place] [facility] , [address] [place] [id number] 0 01/06 CBC w/ auto diff MCHC g/dL 30.0 35.0 34.0 FINAL Nicole Ya [place] [facility] [place] [facility] , [address] [place] [id number] 0 01/06 CBC w/ auto diff NRBC % #/100W BC 0.0 0.2 0.0 FINAL Nicole Ya [place] [facility] [place] [facility] , [address] [place] [id number] 0 01/06 CBC w/ auto diff HCT % 35.0 48.0 37.6 FINAL Nicole Ya [place] [facility] [place] [facility] , [address] [place] [id number] 0 01/06 CBC w/ auto diff Augustus % % 43.0 74.0 61.5 FINAL Nicole Ya [place] [facility] [place] [facility] , [address] [place] [id number] 0 01/06 CMP Alkal ine phosp hatas e U/L 36.0 125.0 79 FINAL Nicole Ya * [place] [facility] [place] [facility] , [address] [facility] [id number] 0 01/06 CMP ALT/S GPT U/L 0.0 34.0 24 FINAL Nicole Ya * [place] [facility] [place] [facility] , [address] [facility] [id number] 0 01/06 CMP Calci um mg/dL 8.4 10.2 8.9 FINAL Nicoledarius Ya * [facility] , [address] [facility] [address] [id number] 0 01/06 CMP GFR estim ate ml/min /1.73m ^2 60.2 GFR is calculate d using the CKD-EPI equation. FINAL Nicoledarius Ya * [facility] , [facility] [address] [id number] 0 01/06 CMP CO2 mmol/L 22.0 30.0 [...] hour stability window. FINAL Nicole Ya * [facility] , [address] [facility] [address] [id number] 0 01/06 CMP Gluco se mg/dL 74.0 100.0 88 FINAL Nicole Ya * [facility] , [facility] [facility] [address] [id number] 0 01/06 CMP Chlor rakan mmol/L 96.0 107.0 109 High FINAL Nicole Ya * [facility] , [address] [facility] [address] [id number] 0 01/06 CMP Total prote in g/dL 6.3 8.2 6.2 Low FINAL Nicole Ya * [facility] , [facility] [address] [id number] 0 01/06 CMP BUN mg/dL 7.0 17.0 14.0 FINAL Nicole Ya * [facility] , [facility] [address] [id number] 0 01/06 CMP Creat inine mg/dL 0.66 1.25 1.00 FINAL Nicole Ya * [facility] , [facility] [address] [id number] 0 01/06 CMP AST/S GOT U/L 14.0 36.0 33 FINAL Nicole Ya * [facility] , [facility] [facility] [address] [id number] 0 01/06 CMP Album in g/dL 3.5 5.0 3.9 FINAL Nicole Ya * [facility] , [facility] [address] [id number] 0 01/06 CMP Bilir ubin, total mg/dL 0.2 1.3 0.8 FINAL Nicole Ya * [facility] , [facility] [address] [id number] 0 01/06 CMP Sodiu m mmol/L 137.0 145.0 141 FINAL Nicole Ya * [facility] , [facility] [address] [id number] 0 01/06 CMP Potas sium mmol/L 3.5 5.1 4.1 FINAL Nicole Ya * [facility] , [facility] [address] [id number] 0 01/06 BCR ABL1/ ABL1 % (IS) % 0.000 FINAL Nicloe Ya [facility], [facility] [address] [facility] [id number] 4 01/06 INTER PRETA TION see note [...] additiona l informati on, please refer tohttp:// [employer] .[facility]/faq/F AQ72(This link is being provided forinform ational/e ducationa l purposes only.)Ass ay sensitivi ty is at least 4.5-logs below baselineB CR-ABL1 transcrip t levels but is dependent onquantit y and quality of RNA used for testing and thecellul arity of the sample.Th is test was developed and its analytica lperforma nce character istics have been determine dby [facility] [place], [place].It has not been cleared or approved by the FDA. Thisassay has been validated pursuant to the CLIAregul ations and is used for clinical purposes. Reviewed by Aiden Hui M.D., Ph.D.Rocío f Pathologi st FINAL Nicole Ya [facility], [facility] [address] [place] [id number] 4 01/06 PRIOR RESUL T See Report FINAL Nicole Ya [facility], [facility] [address] [place] [id number] 4 01/06 P210 BCR ABL1 Not Detecte d FINAL Nicole Ya [facility], [facility] [address] [place] [id number] 4 01/06 BCR ABL1/ ABL1 % % 0.000 FINAL Nicole Ya [facility], [facility] [address] [place] [id number] 4 01/06 P190 BCR ABL1 Not Detecte d FINAL Nicole Ya [facility], [facility] [address] [place] [id number] 4 01/06 SOURC E: Periphe ral Blood FINAL Nicole Ya [facility], [facility] [address] [facility] [id number] 4 Medications Date Name Route Dose Frequency Instructions Start Date End Date Status Fill Status Indication 11/28 Hydroxy zine HCl Oral Nightly inactive 03/13 Atorvas tatin Oral orally 1.0 tablet [...] 2023 active Chronic myeloid leukemia, disease (disorder) 03/23 nystati n 100 UNT/MG Topical Powder topical ly 1.0 applic ation 3 times per day 03/23 inactive Chronic myeloid leukemia, disease (disorder) 08/30 Montelu kast Oral Daily 2020 stopped 03/13 Propran olol Oral 24 hr Cap PO 2.0 CAPSUL E(S), SUSTAI PETE ACTION daily 2018 active 03/13 Fexofen adine Oral PO 1.0 TABLET (S) as directed 12/31 stopped 03/13 Calcium Carbona te Oral Chewabl e PO 3.0 TABLET (S) PRN 12/31 inactive 03/13 Ondanse maribell Oral PO 1.0 TABLET (S) Q8H PRN nausea 12/31 inactive 03/13 Naproxe n Sodium Oral PO BID PRN Take 1-2 tabs PRN 12/31 inactive 03/13 Bupropi on (XL) Oral 24 hr Tab PO 1.0 TABLET (S) daily 12/31 inactive 03/13 Miscell aneous Drug PO 1.0 TABLET (S) daily 2013 active 03/13 nilotin ib Oral (Tasign a) PO 1.0 CAPSUL E(S) QD 12/30 inactive 03/13 Calcium Carbona te Oral PO 1.0 TABLET (S) OCC W/ Magnesium 2012 active 03/13 Magnesi um Glucona te Oral PO 1.0 TABLET (S) OCC 2012 inactive 03/13 Omepraz ole Oral Delayed Release Capsule PO 1.0 CAPSUL E(S), ENTERI C COATED Daily 2012 active 03/13 Sumatri ptan Oral 100 mg PO PRN 2012 active Problems Diagnosis Status Date of Diagnosis Resolution Date Diarrhea caused by drug (disorder) Active Drug-induced neutropenia (disorder) Active Neutropenia prevention Active Thrombocytopenia caused by d rugs (disorder) Active Acute pharyngitis Active Estrogen receptor negative status [ER-] Inactive 0 11/06/2022 Counseling Active Breast cancer, female Active Secondary malignancy of lymph nodes Active Estrogen receptor negative status [ER-] Active 0 11/06/2022 Dehydration Active Lower extremity edema Active Drug-induced nausea and vomi ting (disorder) Active Hypokalemia (disorder) Active Muscle weakness (finding) Active Depressive disorder (disorder) Active Leukopenia (disorder) Inactive Body mass index (BMI) 24.0-24.9, adult Inactive Body mass index (BMI) 25.0-25.9, adult Inactive Body mass index (BMI) 26.0-26.9, adult Inactive Body mass index (BMI) 28.0-28.9, adult Inactive Body mass index (BMI) 30.0-30.9, adult Inactive Hyperlipidemia (disorder) Active Thrombocytopenic disorder (disorder) Inactive Eruption of skin (disorder) Inactive Fatigue (finding) Active Migraine (disorder) Active Chronic myeloid leukemia, di sease (disorder) Active 05/2012 Body mass index (BMI) 29.0-29.9, adult Inactive Screening status (finding) Active Limited range of motion Active Personal history of breast cancer Active Right shoulder pain Active Vicky intertrigo (disorder) Active Lymphedema Active Cellulitis of breast (disorder) Active Vaccination for influenza given Active Procedures Date Category Name Instructions Status 03/14/2024 Physician Order RTC CLASSIFICATION CLERK/PA Cheryl Ordered 06/15/2024 Physician Order RTC Ordered 12/13/2024 Physician Order RTC MD Please schedule in S ptember Ordered 01/06/2025 Physician Order RTC CLASSIFICATION CLERK/PA evaluate R b reast symptoms (redness, bruising, edema, nipple color change) Ordered 01/20/2025 Physician Order RTC CLASSIFICATION CLERK/PA Tiara 10-14 days, recheck breast Ordered 01/20/2025 Physician Order Referral to [facility] right breast lymphedema - [place] location please Ordered 07/20/2025 Physician Order RTC MD Ordered Social History Date Name Value 03/23/2024 Smoking Status Never smoker 01/20/2025 Smoking Status Never smoker 01/20/2025 Sex Female Sexual Orientation Straight or h eterosexual 01/23/2025 Gender Identity Identifies as fe male Vital Signs Date Type Value 03/23/2024 BMI 27.81 03/23/2024 Height 66.50 03/23/2024 Weight 174.90 03/23/2024 Pain Scale 0.00 03/23/2024 BSA 1.90 03/23/2024 Oxygen Saturation 98.00 03/23/2024 Respiratory Rate 16.00 03/23/2024 Heart Beat 63.00 03/23/2024 Body Temperature 97.50 03/23/2024 Intravascular Systolic 122 03/23/2024 Intravascular Diastolic 68 06/15/2024 BMI 27.44 06/15/2024 Height 66.50 06/15/2024 Weight 172.60 06/15/2024 Pain Scale 0.00 06/15/2024 Intravascular Systolic 130 06/15/2024 Intravascular Diastolic 86 06/15/2024 Oxygen Saturation 98.00 06/15/2024 Respiratory Rate 16.00 06/15/2024 Heart Beat 82.00 06/15/2024 Body Temperature 98.30 06/15/2024 BSA 1.89 01/06/2025 BMI 27.04 01/06/2025 Height 66.50 01/06/2025 Weight 170.10 01/06/2025 Pain Scale 1.00 01/06/2025 BSA 1.88 01/06/2025 Oxygen Saturation 96.00 01/06/2025 Respiratory Rate 16.00 01/06/2025 Heart Beat 50.00 01/06/2025 Body Temperature 96.40 01/06/2025 Intravascular Systolic 130 01/06/2025 Intravascular Diastolic 88 01/20/2025 BSA 1.88 01/20/2025 BMI 27.00 01/20/2025 Height 66.50 01/20/2025 Weight 169.80 01/20/2025 Pain Scale 0.00 01/20/2025 Intravascular Systolic 132 01/20/2025 Intravascular Diastolic 82 01/20/2025 Oxygen Saturation 98.00 01/20/2025 Respiratory Rate 16.00 01/20/2025 Body Temperature 96.80 01/20/2025 Heart Beat 72.00 Notes Section * Med Onc Follow-up Note Patient Name: MARIO TAM Date Of : 1955 Today's Provider:?Tiara Coronado RN, ACCESS SERVICES ASSISTANT, MA, AOCN Date of Service:?01/20/2025 Attending Physician:?Nicole Ya (Hematology/Oncology) Referring Provider: ? HEMATOLOGY/ MEDICAL ONCOLOGY FOLLOW UP VISIT Reason for Visit Follow-up right breast cellulitis Assessment 1.?Stage IIA Right breast cancer ?(10/25/2022) treatment intent: Curative?right-sided breast cancer clinically, T1?N1 M0, invasive ductal cancer, ER negative?[very weakly positive], MS negative, HER2/augustus 3+ ?Treatment intent is curative, date of diagnosis?10/23/2022 ?Details in HPI, TCHP?stopped early due to toxicity ?Pathological CR, received?pertuzumab?and trastuzumab?as adjuvant ? ER 1 to 5%, decided against?endocrine therapy ?(01/11)?mammogram:?No?evidence for malignancy. 2. Chronic myelogenous leukemia ?Prior intolerance to imatinib?causing rash. ?Currently taking Nilotinib 200 mg daily, unable to tolerate 300 mg dose due to rash. ?Complete molecular remission?without adverse effects. ?(01/19/2025)?BCR -ABL?negative on 12/2024 3. ?Peripheral neuropathy ?Progressed, following Neurology 4.? Breast Cellulitis ?(01/06/2025) focal area of redness?and tenderness to the?right lateral breast?concerning for mild cellulitis.? Mammogram from 12/21/2024?showed no?evidence for malignancy. Started on Keflex?(01/20/2025)?right breast cellulitis resolved. ?Discoloration to the nipple has resolved although there is?still?slight paleness to the areolar complex and mild right breast lymphedema Plan 1.? . Breast Cancer: ?Follow-up with Dr. Ya in 6 months ?Annual mammogram December 2025 ?Referral to [facility]?sees [place]) for evaluation and management of right breast lymphedema, more in the central aspect. 2.? CML: ? Continue? Nilotinib 200 mg daily ?Follow-up with Dr. Ya in 6 months?(to be ordered when she returns in 2 weeks) 3. ?Peripheral neuropathy: ?Work-up being performed by neurology (MRI, EMG, Labs) ?Intolerant to gabapentin and pregabalin; not discussed today 4.? Health Maintenance ? (01/11)?mammogram:?No?evidence for malignancy. ?(11/03/2024) colonoscopy:?1 polyp removed (pathology not available for review). ?Per patient follow-up colonoscopy in 3 years Advanced [...] Present Illness Mario is a 67-year-old woman with?chronic myelogenous leukemia?diagnosed in May 2012, withtreatment as outlined. 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 She was started on imatinib at 400 mg daily but developed skin rash requiring treatment with a Medrol dose pack. The rash recurred after imatinib was reintroduced at 200 mg daily and it was elected to switch herto nilotinib. She has had molecular studies performed subsequently with the following results: Note she has had a rash to imatinib, hives?on scalp with higher dose of naloxone and - 09/2012- PCR transcript level at 2.1% (5.5% on international scale) - 11/2012- PCR transcript level at 0.04% (0.1% on international scale) -09/2013 no detectable transcripts -03/2014 to 04/13/23:?no detectable transcripts BREAST CANCER: Diagnosed at age 67, some?second-degree family relatives with breast cancer, no hormone replacement therapy use, abnormality was detected on?routine mammography 1.? 10/23/2022:?Mammogram and?ultrasound performed ?Diagnostic mammogram additional views confirm a mass at 7:00 mid depth ? Ultrasound?shows a breast area 0.8 x 0.5 0.6 cm, at?7:00, 5 cm from nipple ?Enlarged lymph node with cortical thickening up to?4 mm 2.? 10/25/2022:?Right breast?7:00, 5 cm from nipple ? Invasive ductal cancer ? Grade 2 of 3 ? LVI ?Lymph node metastatic carcinoma ? ER negative, MS negative, HER2/augustus 3+ on?breast ? ER low +1 to 5%, MS -0%, HER2/augustus 3+ lymph node 2.? 12/24/2022: Ultrasound of the breast?on biopsy-proven malignancy,?measures 5 x 4 x 3 mm versus 8 x 5 x 6 mm, axilla lymph node is now normal 3.?From cycle #2 had 20% dose reduction in docetaxel, provide additional 20% dose reduction ? Reduce carboplatin to AUC of 4 due to?thrombocytopenia, was at carboplatin of AUC of 5 for cycle #2 ? Continue current dosing for cycle #4?total of 40% dose reduction docetaxel, carbo AUC of 4 TREATMENT TO DATE: 1.? Chemotherapy: ?6/30/23: TCHP--4 cycles and stopped and went to [facility] alone 2.? Surgery: ?06/08/2022:?Right breast lumpectomy?right sentinel lymph node biopsy by Dr. Erickson ? Pathology: Complete response 3.? Maintenance therapy:?04/12/2023?present: Phesgo 4. ?Radiation therapy: ?06/03/2023 - 08/03/2023:?5000 cGy, [address] Castillo 5.?Endocrine therapy: ?Tumor?was weakly ER?positive, Dr. Ya?decided to hold off on endocrine therapyas patient had a pathological CR Interval History Redness, warmth and discomfort to the right breast has completely resolved.? She took Keflex, although missed a few doses. No fevers or chills.? Concerned about ongoing discoloration of the right nipple.? Review of Systems Remaining 14 point comprehensive review of systems within normal limits. NCCN Distress Thermometer and Problem List were collected and documented in the patient chart.? Remarkable symptoms and concerns were discussed with the patient.? Any additional follow-up is indicated in the [...] Allergies imatinib mesylate and topiramate Family History Father?lymphoma at age 77. Mother?colon cancer at age 58. Maternal grandmother? history of breast cancer, at age 81 Maternal grandfather?colon cancer,?at age 89. Both paternal grandparents are without a history of malignancy. She has 2 younger brothers but no sisters. She has 2 sons and 1 daughter along with 2 grandchildren. No genetic testing has been done in the family. Social History Recent , August 2022.?They in December 2021.?Unfortunately he ?in August after?an extended?hospital stay for?4?what sounds like sepsis following?a?fall, injuring his knee and back. ?She has 3 children,?2 of her children live?locally-1 son?lives on a farm near [facility]. ?Another son lives about 9 [place] away near [place].? One child lives in [place].? She is a supportive group of friends.? 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 Habits:? Nonsmoker, does not drink ETOH Vital Signs [...] of disease. (Date: 01/20/2025) Physical Exam GENERAL: Patient?does not appear acutely ill, although anxious.? Alert and oriented, mood appropriate.? ALYSSA: Pupils equal, round, reactive to light. ?Conjunctive are clear. ?Extraocular movement intact.? LYMPH: No cervical, supraclavicular or axillary lymphadenopathy BREAST: Previously marked area to the right breast is without redness and warmth.? Areaola complex slightly pale although color improving and the nipple is pink.? No pain or mass with exam.?Mild lymphedema, mainly the right central breast.? Genetics/Molecular/Biomarkers * Breast cancer, female ( Stage Date: Unknown, Stage IIA (T1b, N1, M0, G2, ER Status: Negative, MS Status: Negative, HER-2/augustus Status: Positive) Histopathologic Type: [...] Of : 1955 Today's Provider:?Tiara Coronado RN, JOAN, SPIKE, NORMA Date of Service:?01/06/2025 Attending Physician:?Nicole Ya (Hematology/Oncology) Referring Provider: ? HEMATOLOGY/ MEDICAL ONCOLOGY FOLLOW UP VISIT Reason for Visit Interim visit to evaluate right breast changes Assessment 1.?Stage IIA Right breast cancer ?(10/25/2022) treatment intent: Curative?right-sided breast cancer clinically, T1?N1 M0, invasive ductal cancer, ER negative?[very weakly positive], MS negative, HER2/augustus 3+ ?Treatment intent is curative, date of diagnosis?10/23/2022 ?Details in HPI, [facility]?stopped early due to toxicity ?Pathological CR, received?pertuzumab?and trastuzumab?as adjuvant ? ER 1 to 5%, decided against?endocrine therapy ?(01/11)?mammogram:?No?evidence for malignancy. 2. Chronic myelogenous leukemia ?Prior intolerance to imatinib?causing rash. ?Currently taking Nilotinib 200 mg daily, unable to tolerate 300 mg dose due to rash. ?Complete molecular remission?without adverse effects. 3. ?Peripheral neuropathy ?Progressed, following Neurology 4.? Breast? Changes ?(01/06/2025) focal area of redness?and tenderness to the?right lateral breast?concerning for mild cellulitis.? Mammogram from 12/21/2024?showed no?evidence for malignancy. Plan 1.? Breast Cellulitis ?Prescribed?Keflex?x 10 days ?If she develops a fever or?skin changes to the breast worsen, she will call the clinic ?Return to the clinic?in?7 to 14 days for reassessment ?She should avoid wearing an underwire bra which increases her risk for lymphedema and possible cellulitis.? 2. Breast Cancer: ?Annual mammogram December 2025 3.? CML: ? Continue? Nilotinib 200 mg daily ? Last month she was due for a routine f/u with Dr. Ya, therefore I will check routine labstoday;?CBC, CMP and BCR/ABL. ?Follow-up with Dr. Ya in 6 months?(to be ordered when she returns in 2 weeks) 4. ?Peripheral neuropathy: ?Work-up being performed by neurology (MRI, EMG, Labs) ?Intolerant to gabapentin and pregabalin; not discussed today 5.? Health Maintenance ? (01/11)?mammogram:?No?evidence for malignancy. ?(11/03/2024) colonoscopy:?1 polyp removed (pathology not available for review). ?Per patient follow-up colonoscopy in 3 years Advanced [...] No; Screening Date: 03/23/2024; Screening Tool: PRIME MD-PHQ2; Total depression score: 0 History of Present Illness Mario is a 67-year-old woman with?chronic myelogenous leukemia?diagnosed in May 2012, withtreatment as outlined. 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 She was started on imatinib at 400 mg daily but developed skin rash requiring treatment with a Medrol dose pack. The rash recurred after imatinib was reintroduced at 200 mg daily and it was elected to switch herto nilotinib. She has had molecular studies performed subsequently with the following results: Note she has had a rash to imatinib, hives?on scalp with higher dose of naloxone and - 09/2012- PCR transcript level at 2.1% (5.5% on international scale) - 11/2012- PCR transcript level at 0.04% (0.1% on international scale) -09/2013 no detectable transcripts -03/2014 to 11/25/23:?no detectable transcripts BREAST CANCER: Diagnosed at age 67, some?second-degree family relatives with breast cancer, no hormone replacement therapy use, abnormality was detected on?routine mammography 1.? 10/23/2022:?Mammogram and?ultrasound performed ?Diagnostic mammogram additional views confirm a mass at 7:00 mid depth ? Ultrasound?shows a breast area 0.8 x 0.5 0.6 cm, at?7:00, 5 cm from nipple ?Enlarged lymph node with cortical thickening up to?4 mm 2.? 10/25/2022:?Right breast?7:00, 5 cm from nipple ? Invasive ductal cancer ? Grade 2 of 3 ? LVI ?Lymph node metastatic carcinoma ? ER negative, MS negative, HER2/augustus 3+ on?breast ? ER low +1 to 5%, MS -0%, HER2/augustus 3+ lymph node 2.? 12/24/2022: Ultrasound of the breast?on biopsy-proven malignancy,?measures 5 x 4 x 3 mm versus 8 x 5 x 6 mm, axilla lymph node is now normal 3.?From cycle #2 had 20% dose reduction in docetaxel, provide additional 20% dose reduction ? Reduce carboplatin to AUC of 4 due to?thrombocytopenia, was at carboplatin of AUC of 5 for cycle #2 ? Continue current dosing for cycle #4?total of 40% dose reduction docetaxel, carbo AUC of 4 TREATMENT TO DATE: 1.? Chemotherapy: ?11/16/22: [facility]--4 cycles and stopped and went to [facility] alone 2.? Surgery: ?06/08/2022:?Right breast lumpectomy?right sentinel lymph node biopsy by Dr. Erickson ? Pathology: Complete response 3.? Maintenance therapy:?04/12/2023?present: Phesgo 4. ?Radiation therapy: ?06/03/2023 - 08/03/2023:?5000 cGy, [address] Castillo 5.?Endocrine therapy: ?Tumor?was weakly ER?positive, Dr. Ya?decided to hold off on endocrine therapyas patient had a pathological CR Interval History Today?Concha?is seen in the clinic with her friend, Michelle.? This morning when she got out of the shower, she noticed?a large?red tender area to her rightbreast. ?Her right breast seems slightly more swollen than the left?and the areola less pink than the left.?No palpable lumps, nipple discharge or retraction. ?She had a mammogram earlier this month which was normal. ?She denies any direct trauma to the breast.?She typically wears an underwire bra?and has?not had any issues with lymphedema. ?No enlarged lymph nodes in the neck or axilla.? She had a cortisone injection to the right shoulder 4 months ago, no c omplications?postprocedure.? No fevers, chills or recent infections. No, respiratory, GI or complaints. Continues to take?Niotinib daily, well tolerated.? Review of Systems Remaining 14 point comprehensive review of systems within normal limits. NCCN Distress Thermometer and Problem List were collected and documented in the patient chart.? Remarkable symptoms and concerns were discussed with the patient.? Any additional follow-up is indicated in the [...] Allergies imatinib mesylate and topiramate Family History Father?lymphoma at age 77. Mother?colon cancer at age 58. Maternal grandmother? history of breast cancer, at age 81 Maternal grandfather?colon cancer,?at age 89. Both paternal grandparents are without a history of malignancy. She has 2 younger brothers but no sisters. She has 2 sons and 1 daughter along with 2 grandchildren. No genetic testing has been done in the family. Social History Recent , August 2022.?They in December 2021.?Unfortunately he ?in August after?an extended?hospital stay for?4?what sounds like sepsis following?a?fall, injuring his knee and back. ?She has 3 children,?2 of her children live?locally-1 son?lives on a farm near [facility]. ?Another son lives about 9 miles away near [place].? One child lives in [place].? She is a supportive group of friends.? 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 Habits:? Nonsmoker, does not drink ETOH Vital Signs Blood pressure: 130/88, Pulse: 50, Temperature: 96.4 F, Respirations: 16, O2 sat: 96%, Pain Scale: 1, Height: 66.5 in, Weight: 170.1 lb, BSA: 1.88, BMI: 27.04 kg/m2 Covid-19 vaccine ([place]) (03/13/2022), Patient declined/rejected; Flu vaccine - Adult [...] of disease. (Date: 01/06/2025) Physical Exam GENERAL: Patient?does not appear acutely ill, although anxious.? Alert and oriented, mood appropriate.? ALYSSA: Pupils equal, round, reactive to light. ?Conjunctive are clear. ?Extraocular movement intact.? LYMPH: No cervical, supraclavicular or axillary lymphadenopathy CV: Regular rate and rhythm. ?No murmurs or gallops noted. ?No edema RESP: Patient does not appear short of breath with conversation. ?Lungs clear to auscultation ABD: Positive bowel sounds, soft, nontender, no masses or organomegaly noted.? DERM: Port without evidence for infection. ?No bruising or petechiae BREAST: Large pendulous bresats. Right?breast with large area of redness and warmth to the lateral breast, area marked with a sharpie.? At the center there are 2 bright red dots, that may be aninoculation site from an insect bite. No bruising, areaola complex slightly pale. The area is tender with palpation, but not generalized to the breast. No palpable mass or nodules. Left breast exam benign.? Genetics/Molecular/Biomarkers * Breast cancer, female ( Stage Date: Unknown, Stage IIA (T1b, N1, M0, G2, ER Status: Negative, MS Status: Negative, HER-2/augustus Status: Positive) Histopathologic Type: [...] FAX Electronically signed by Tiara Coronado RN, ACCESS SERVICES ASSISTANT, SPIKE, NORMA 01/06/2025 14:58 CDT * Med Onc Follow-up Note Patient Name: MARIO TAM Date Of : 1955 Today's Provider:?Nicole Ya MD Date of Service:?06/15/2024 Attending Physician:?Nicole Ya (Hematology/Oncology) Referring Provider: ? HEMATOLOGY/ MEDICAL ONCOLOGY FOLLOW UP VISIT Reason for Visit 1.? Surveillance for stage IIA right breast cancer 2.? Ongoing Nilotinib for CML Assessment 1.?Stage IIA Right breast cancer ?(10/25/2022) treatment intent: Curative?right-sided breast cancer clinically, T1?N1 M0, invasive ductal cancer, ER negative?[very weakly positive], MS negative, HER2/augustus 3+ ?Treatment intent is curative, date of diagnosis?10/23/2022 ?Details in HPI, [facility]?stopped early due to toxicity ?Pathological CR, received?pertuzumab?and trastuzumab?as adjuvant ? ER 1 to 5%, decided against?endocrine therapy 2. Chronic myelogenous leukemia ?Prior intolerance to imatinib?causing rash. ?Currently taking nilotinib 200 mg daily, she had a rash with 300 mg dose. ?Complete molecular remission?without adverse effects. 3. ?Peripheral neuropathy ?Progressed, following Neurology Plan 1.? Breast Cancer: ?Completed all treatments ? Surveillance ? Annual mammogram done October 2024, she will be calling to schedule 2.? CML: ?Continue? Nilotinib 200 mg, major molecular response ?Recheck labs?scheduled ? I discussed with her about drug interaction she will stop omeprazole and consider stopping her hydroxyzine. 3. ?Peripheral neuropathy: ?Progressed over last several months ?Work-up being performed by neurology (MRI, EMG, Labs) ?Intolerant to gabapentin and pregabalin?will discuss further with neurology Advanced Care Planning 09/03/2019- Not addressed Pain Scale on Today's Visit 0 Pain Plan on Today's Visit No pain plan indicated for today's visit Smoking Status Smoking Tobacco : Never smoker; Smokeless Tobacco : Never used smokeless tobacco; Vaping : Never vaped Depression Screening Tool Status Was screened; Outcome positive: No; Screening Date: 03/23/2024; Screening Tool: [facility] MD-PHQ2; Total depression score: 0 History of Present Illness Mario is a 67-year-old woman with?chronic myelogenous leukemia?diagnosed in May 2012, withtreatment as outlined. 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 She was started on imatinib at 400 mg daily but developed skin rash requiring treatment with a Medrol dose pack. The rash recurred after imatinib was reintroduced at 200 mg daily and it was elected to switch herto nilotinib. She has had molecular studies performed subsequently with the following results: Note she has had a rash to imatinib, hives?on scalp with higher dose of naloxone and - 09/2012- PCR transcript level at 2.1% (5.5% on international scale) - 11/2012- PCR transcript level at 0.04% (0.1% on international scale) -09/2013 no detectable transcripts -03/2014 to 04/13/23:?no detectable transcripts BREAST CANCER: Diagnosed at age 67, some?second-degree family relatives with breast cancer, no hormone replacement therapy use, abnormality was detected on?routine mammography 1.? 10/23/2022:?Mammogram and?ultrasound performed ?Diagnostic mammogram additional views confirm a mass at 7:00 mid depth ? Ultrasound?shows a breast area 0.8 x 0.5 0.6 cm, at?7:00, 5 cm from nipple ?Enlarged lymph node with cortical thickening up to?4 mm 2.? 10/25/2022:?Right breast?7:00, 5 cm from nipple ? Invasive ductal cancer ? Grade 2 of 3 ? LVI ?Lymph node metastatic carcinoma ? ER negative, MS negative, HER2/augustus 3+ on?breast ? ER low +1 to 5%, MS -0%, HER2/augustus 3+ lymph node 2.? 12/24/2022: Ultrasound of the breast?on biopsy-proven malignancy,?measures 5 x 4 x 3 mm versus 8 x 5 x 6 mm, axilla lymph node is now normal 3.?From cycle #2 had 20% dose reduction in docetaxel, provide additional 20% dose reduction ? Reduce carboplatin to AUC of 4 due to?thrombocytopenia, was at carboplatin of AUC of 5 for cycle #2 ? Continue current dosing for cycle #4?total of 40% dose reduction docetaxel, carbo AUC of 4 TREATMENT TO DATE: 1.? Chemotherapy: ?11/16/22: [facility]--4 cycles and stopped and went to [facility] alone 2.? Surgery: ?06/08/2022:?Right breast lumpectomy?right sentinel lymph node biopsy by Dr. Erickson ? Pathology: Complete response 3.? Maintenance therapy:?04/12/2023?present: Phesgo 4. ?Radiation therapy: ?06/03/2023 - 08/03/2023:?5000 cGy, [address] Castillo 5.?Endocrine therapy: ?Tumor?was weakly ER?positive, Dr. Ya?decided to hold off on endocrine therapyas patient had a pathological CR Interval History Alone for the visit, doing well, life is gradually getting back to normal. ?She continues to have neuropathy continues to struggle with the same.? Otherwise doing well she does feel like life is finally getting back to normal.? And she is happy about the same. Review of Systems Remaining 14 point comprehensive review of systems within normal limits. NCCN Distress Thermometer and Problem List were collected and documented in the patient chart.? Remarkable symptoms and concerns were discussed with the patient.? Any additional follow-up is indicated in the plan. Past Medical and Surgical History * Depression. * History of skin rash. * Migraine headaches. * Hyperlipidemia. * Thrombocytopenia related to treatment. * History of leukopenia related to treatment, now resolved. Current Medications Medication List Name Date Propranolol Oral 24 hr Cap 12/31/2018 Bupropion hcl, po solid SR 06/26/2013 Nystatin Topical Powder 03/23/2024 Tasigna (Nilotinib Oral) 06/09/2024 Calcium Carbonate Oral 03/01/2023 Sumatriptan Oral 100 mg 03/01/2023 Hydroxyzine HCl Oral 11/28/2022 Atorvastatin Oral 03/13/2022 Omeprazole Oral Delayed Release Capsule 03/01/2023 Pristiq (Desvenlafaxine Oral 24 hr Tab) 09/11/2022 Naproxen Sodium Oral 12/31/2018 Allergies imatinib mesylate and topiramate Family History Father?lymphoma at age 77. Mother?colon cancer at age 58. Maternal grandmother? history of breast cancer, at age 81 Maternal grandfather?colon cancer,?at age 89. Both paternal grandparents are without a history of malignancy. She has 2 younger brothers but no sisters. She has 2 sons and 1 daughter along with 2 grandchildren. No genetic testing has been done in the family. Social History Recent , August 2022.?They in December 2021.?Unfortunately he ?in August after?an extended?hospital stay for?4?what sounds like sepsis following?a?fall, injuring his knee and back. ?She has 3 children,?2 of her children live?locally-1 son?lives on a farm near [facility]. ?Another son lives about 9 miles away near [place].? One child lives in [place].? She is a supportive group of friends.? 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 Habits:? Nonsmoker, does not drink ETOH Vital Signs Blood pressure: 130/86, Pulse: 82, Temperature: 98.3 F, Respirations: 16, O2 sat: 98%, Pain Scale: 0, Height: 66.5 in, Weight: 172.6 lb, BSA: 1.89, BMI: 27.44 kg/m2 Covid-19 vaccine ([place]) (03/13/2022), Patient declined/rejected; Flu vaccine - Adult (2021); Flu vaccine - Adult (04/12/2023), Elsewhere; Flu vaccine - Adult (04/02/2019); Flu vaccine - Adult (03/06/2021); Flu vaccine - Adult (2022), Not given other reason; Flu vaccine - Adult (03/23/2024), Elsewhere Performance Status ECOG or Karnofsky ECO Symptoms, but ambulatory. Restricted in physically strenuous activity, but ambulatory and able to carry out work of a light or sedentary nature (e.g., light housework, office work). (Date: 01/18/2023) Karnofsky: 90% Able to carry on normal activity; minor signs or symptoms of disease. (Date: 03/23/2024) Physical Exam {Cardiovascular system regular rate and rhythm Respiratory some chest good auscultation ? Noted changes of radiation therapy in the breas } Genetics/Molecular/Biomarkers * Breast cancer, female ( Stage Date: Unknown, Stage IIA (T1b, N1, M0, G2, ER Status: Negative, MS Status: Negative, HER-2/augustus Status: Positive) Histopathologic Type: Ductal invasive carcinoma; Menopausal Status: Postmenopausal; ) * Chronic myeloid leukemia, disease (disorder) ( Stage Date: 06/24/2012, Stage Chronic Phase Date of Dx:05/2012 Disease Status: No evidence of disease; T315I Mutation: Unknown; t(9,22) at Diagnosis: Yes; First record:06/24/2012 Last record:12/31/2018 Other Migrated ICD10: C92.11 ) Additional Labs, Imaging, and Other Studies Lab Results CBC LabResults 06/15/2024 05/21/2024 03/30/2024 12/03/2023 06/04/2023 CBC WBC x 10^3/uL 4.7 4.0 3.3 6.2 RBC x 10^6/uL 4.32 3.98 3.95 4.27 NRBC % /100 wbc 0.0 0.0 0.0 0.0 HGB g/dL 13.6 12.8 11.9 12.8 HCT % 41.6 38.6 36.7 39.5 MCV fL 96.3 97.0 92.9 92.5 MCH pg 31.5 32.2 30.1 30.0 MCHC g/dL 32.7 33.2 32.4 32.4 RDW % 12.00 12.70 14.10 12.70 PLT x 10^3/uL 151 175 163 177 MPV fL 9.3 (L) 9.1 (L) 8.8 (L) 9.3 (L) Augustus % 61.4 63.2 58.6 63.9 LY % 28.3 25.7 24.3 27.5 MO % 10.1 10.8 16.2 (H) 7.9 EO % 0.0 0.0 0.3 0.2 BA % 0.0 0.0 0.3 0.3 IG % 0.2 0.3 0.3 0.2 Augustus # (ANC) x 10^3/uL 2.9 2.5 2.0 4.0 LY # x 10^3/uL 1.3 1.0 0.8 1.7 MO # x 10^3/uL 0.5 0.4 0.5 0.5 EO # x 10^3/uL 0.0 0.0 0.0 0.0 BA # x 10^3/uL 0.0 0.0 0.0 0.0 IG # x 10^3/uL 0.01 0.01 0.01 0.01 Chemistries LabResults 06/15/2024 05/21/2024 03/30/2024 12/03/2023 06/04/2023 Chemistries Glucose mg/dL 126 (H) 97 BUN mg/dL 14.0 15.0 Creatinine mg/dL 1.30 (H) 1.06 Sodium mmol/L 140 143 Potassium mmol/L 3.9 4.4 Potassium, iSTAT mmol/L 3.8 Chloride mmol/L 108 (H) 109 CO2 mmol/L 24 25 Calcium mg/dL 9.1 10.4 Albumin g/dL 4.3 4.4 Total protein g/dL 6.5 6.4 Bilirubin, total mg/dL 0.7 0.5 Alkaline phosphatase U/L 126 (H) 107 AST/SGOT U/L 39 (H) 23 ALT/SGPT U/L 29 26 GFR estimate mL/min/1.73m2 44.3 (L) 56.7 (L) ? Surveys/Consents/Other Discussions Nicole Ya MD CC: Gabriella Marte PA-C FAX Electronically signed by Nicole Ya MD 06/15/2024 15:14 ANODE REBUILDER * Med Onc Follow-up Note Patient Name: MARIO TAM Date Of : 1955 Today's Provider:?Cheryl Frederick RN, ACCESS SERVICES ASSISTANT, MA, OCN Date of Service:?03/23/2024 Attending Physician:?Nicole Ya (Hematology/Oncology) Referring Provider: ? HEMATOLOGY/ MEDICAL ONCOLOGY FOLLOW UP VISIT Reason for Visit 1.? Completed Phesgo, maintenance, for stage IIA right breast cancer 2.? Ongoing Nilotinib for CML Assessment 1.?Stage IIA Right breast cancer ?(10/25/2022) treatment intent: Curative?right-sided breast cancer clinically, T1?N1 M0, invasive ductal cancer, ER negative?[very weakly positive], MS negative, HER2/augustus 3+ ?Treatment intent is curative ?Details in HPI, [facility]?stopped early due to toxicity ?Pathological CR, received?pertuzumab?and trastuzumab?as adjuvant ? ER 1 to 5%, decided against?endocrine therapy 2. Chronic myelogenous leukemia ?Prior intolerance to imatinib?causing rash. ?Currently taking nilotinib 200 mg daily, she had a rash with 300 mg dose. ?Complete molecular remission?without adverse effects. 3. ?Depression and grief: ?Follows with a psychiatrist ?Working with social worker mastersMarilyn ?(09/27/2023)?her unexpectedly 1 year ago 4. ?Peripheral neuropathy ?Progressed, following Neurology Plan 1.? Breast Cancer: ?Completed all treatments ? Surveillance ? Annual mammogram done October 2023 ?Some pain but?mammogram negative?follow-up imaging only in the presence of pain or annual mammogram ?Encouraged compression garment at nighttime?for breast discomfort 2.? CML: ?Continue? Nilotinib 200 mg, major molecular response ?Recheck labs on return in May 3. ?Peripheral neuropathy: ?Progressed over last several months ?Work-up being performed by neurology (MRI, EMG, Labs) ?Intolerant to gabapentin and pregabalin?will discuss further with neurology 4. ?Other: ? Due to illness pt canceled her routine?colonoscopy?at the end of October (will reschedule) 5.? Vicky?involving the?left inframammary fold ?Rx sent for nystatin powder ?Encouraged to?keep the region dry Advanced Care Planning 09/03/2019- Not addressed Pain Scale on Today's Visit 0 Pain Plan on Today's Visit Date of Service: 03/23/2024 Pain Scale (0-10): 0 Pain Treatment Plan: No pain reported Comment: Smoking Status Smoking Tobacco : Never smoker; Smokeless Tobacco : Never used smokeless tobacco; Vaping : Never vaped Depression Screening Tool Status Was screened; Outcome positive: No; Screening Date: 03/23/2024; Screening Tool: MD-PHQ2; Total depression score: 0 History of Present Illness Mario is a 67-year-old woman with?chronic myelogenous leukemia?diagnosed in May 2012, withtreatment as outlined. 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 She was started on imatinib at 400 mg daily but developed skin rash requiring treatment with a Medrol dose pack. The rash recurred after imatinib was reintroduced at 200 mg daily and it was elected to switch herto nilotinib. She has had molecular studies performed subsequently with the following results: Note she has had a rash to imatinib, hives?on scalp with higher dose of naloxone and - 09/2012- PCR transcript level at 2.1% (5.5% on international scale) - 11/2012- PCR transcript level at 0.04% (0.1% on international scale) -09/2013 no detectable transcripts -03/2014 to 04/13/23:?no detectable transcripts BREAST CANCER: Diagnosed at age 67, some?second-degree family relatives with breast cancer, no hormone replacement therapy use, abnormality was detected on?routine mammography 1.? 10/23/2022:?Mammogram and?ultrasound performed ?Diagnostic mammogram additional views confirm a mass at 7:00 mid depth ? Ultrasound?shows a breast area 0.8 x 0.5 0.6 cm, at?7:00, 5 cm from nipple ?Enlarged lymph node with cortical thickening up to?4 mm 2.? 10/25/2022:?Right breast?7:00, 5 cm from nipple ? Invasive ductal cancer ? Grade 2 of 3 ? LVI ?Lymph node metastatic carcinoma ? ER negative, MS negative, HER2/augustus 3+ on?breast ? ER low +1 to 5%, MS -0%, HER2/augustus 3+ lymph node 2.? 12/24/2022: Ultrasound of the breast?on biopsy-proven malignancy,?measures 5 x 4 x 3 mm versus 8 x 5 x 6 mm, axilla lymph node is now normal 3.?From cycle #2 had 20% dose reduction in docetaxel, provide additional 20% dose reduction ? Reduce carboplatin to AUC of 4 due to?thrombocytopenia, was at carboplatin of AUC of 5 for cycle #2 ? Continue current dosing for cycle #4?total of 40% dose reduction docetaxel, carbo AUC of 4 TREATMENT TO DATE: 1.? Chemotherapy: ?11/16/22: [facility]--4 cycles and stopped and went to [facility] alone 2.? Surgery: ?06/08/2022:?Right breast lumpectomy?right sentinel lymph node biopsy by Dr. Erickson ? Pathology: Complete response 3.? Maintenance therapy:?04/12/2023?present: Phesgo 4. ?Radiation therapy: ?06/03/2023 - 08/03/2023:?5000 cGy, [address] Castillo 5.?Endocrine therapy: ?Tumor?was weakly ER?positive, Dr. Ya?decided to hold off on endocrine therapyas patient had a pathological CR Interval History Shahbaz is in the office today for a scheduled recheck.? Clinically she?has been feeling?well. ?Her biggest frustration is a progression of peripheral neuropathy.? She describes fairly significant neuropathy at the distal aspect of her fingers.? She also notes?involvement along the soles of her feet. ?They are impacting her balance.? She was seen by neurology and recommend ed to undergo MRI of the brain,?and EMG,?and blood work.? She tells me an MRI was completed but she does not know the results.? She was unable to complete the EMG due to scheduling issues?but she will be following back up on this.? She was seen by physical therapy. ?Shahbaz?started gabapentin?but due to poor tolerance due to somnolence she was transition to pregabalin?this to caused?somnolence and dizziness and has since been discontinued. She denies any recent fevers or infectious symptoms.? No unusual bleeding or bruising. Shahbaz does note a?pruritic rash under her left breast. ?She states it just recently presented?it is limited to this region. In regard to breast she denies any breast changes. ?She continues to experience?some discomfort in the breast when she is lying?and nighttime. ?She states it tends to be more shooting type of pain that is there very briefly and then resolved spontaneously.? She denies any persistent or progressive pain no palpable masses present Review of Systems Remaining 14 point comprehensive review of systems within normal limits. NCCN Distress Thermometer and Problem List were collected and documented in the patient chart.? Remarkable symptoms and concerns were discussed with the patient.? Any additional follow-up is indicated in the plan. Past Medical and Surgical History * Depression. * History of skin rash. * Migraine headaches. * Hyperlipidemia. * Thrombocytopenia related to treatment. * History of leukopenia related to treatment, now resolved. Current Medications Medication List Name Date Pristiq (Desvenlafaxine Oral 24 hr Tab) 09/11/2022 Nystatin Topical Powder 03/23/2024 Bupropion hcl, po solid SR 06/26/2013 Sumatriptan Oral 100 mg 03/01/2023 Calcium Carbonate Oral 03/01/2023 Propranolol Oral 24 hr Cap 12/31/2018 Hydroxyzine HCl Oral 11/28/2022 Naproxen Sodium Oral 12/31/2018 Atorvastatin Oral 03/13/2022 Tasigna (Nilotinib Oral) 01/31/2023 Omeprazole Oral Delayed Release Capsule 03/01/2023 Allergies imatinib mesylate and topiramate Family History Father?lymphoma at age 77. Mother?colon cancer at age 58. Maternal grandmother? history of breast cancer, at age 81 Maternal grandfather?colon cancer,?at age 89. Both paternal grandparents are without a history of malignancy. She has 2 younger brothers but no sisters. She has 2 sons and 1 daughter along with 2 grandchildren. No genetic testing has been done in the family. Social History Recent , August 2022.?They in December 2021.?Unfortunately he ?in August after?an extended?hospital stay for?4?what sounds like sepsis following?a?fall, injuring his knee and back. ?She has 3 children,?2 of her children live?locally-1 son?lives on a farm near [facility]. ?Another son lives about 9 miles away near [place].? One child lives in [place].? She is a supportive group of friends.? 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 Habits:? Nonsmoker, does not drink ETOH Vital Signs Blood pressure: 122/68, Pulse: 63, Temperature: 97.5 F, Respirations: 16, O2 sat: 98%, Pain Scale: 0, Height: 66.5 in, Weight: 174.9 lb, BSA: 1.9, BMI: 27.81 kg/m2 Covid-19 vaccine ([place]) (03/13/2022), Patient declined/rejected; Flu vaccine - Adult (2021); Flu vaccine - Adult (04/12/2023), Elsewhere; Flu vaccine - Adult (04/02/2019); Flu vaccine - Adult (03/06/2021); Flu vaccine - Adult (2022), Not given other reason; Flu vaccine - Adult (03/23/2024), Elsewhere Performance Status ECOG or Karnofsky ECO Symptoms, but ambulatory. Restricted in physically strenuous activity, but ambulatory and able to carry out work of a light or sedentary nature (e.g., light housework, office work). (Date: 01/18/2023) Karnofsky: 90% Able to carry on normal activity; minor signs or symptoms of disease. (Date: 03/23/2024) Physical Exam GENERAL: Patient?does not appear acutely ill, walking independently without an assistive device.? Alert and oriented, mood appropriate.? She was able to get on and off the exam table?independently ALYSSA: Pupils equal, round, reactive to light. ?Conjunctive are clear. ?Extraocular movement intact.? LYMPH: No cervical, supraclavicular or axillary lymphadenopathy CV: Regular rate and rhythm. ?No murmurs or gallops noted. ?No pitting edema RESP: Patient does not appear short of breath with conversation. ?Lungs clear to auscultation ABD: Positive bowel sounds, soft, nontender, no masses or organomegaly noted.? DERM:?No bruising or petechiae. ?There is a rash in the inframammary fold on the left side that is erythematous, slightly raised and moist. ?There are satellite lesions present BREAST: No palpable mass, nipple discharge or?skin changes. ?Left breast exam benign MSK:?Limited range of motion of right shoulder?(chronic?per patient) Genetics/Molecular/Biomarkers * Breast cancer, female ( Stage Date: Unknown, Stage IIA (T1b, N1, M0, G2, ER Status: Negative, MS Status: Negative, HER-2/augustus Status: Positive) Histopathologic Type: Ductal invasive carcinoma; Menopausal Status: Postmenopausal; ) * Chronic myeloid leukemia, disease (disorder) ( Stage Date: 06/24/2012, Stage Chronic Phase Date of Dx:05/2012 Disease Status: No evidence of disease; T315I Mutation: Unknown; t(9,22) at Diagnosis: Yes; First record:06/24/2012 Last record:12/31/2018 Other Migrated ICD10: C92.11 ) Additional Labs, Imaging, and Other Studies Lab Results CBC LabResults 12/03/2023 07/05/2023 06/04/2023 04/12/2023 3 02/12/2023 CBC WBC x 10^3/uL 4.0 3.3 6.2 5.3 4.5 9.0 (H) RBC x 10^6/uL 3.98 3.95 4.27 2.94 (L) 2.57 (L) 2.54 (L) NRBC % /100 wbc 0.0 0.0 0.0 0.0 0.0 0.0 HGB g/dL 12.8 11.9 12.8 9.4 (L) 8.8 (L) 8.7 (L) HCT % 38.6 36.7 39.5 29.6 (L) 28.5 (L) 27.5 (L) MCV fL 97.0 92.9 92.5 100.7 110.9 (H) 108.3 (H) MCH pg 32.2 30.1 30.0 32.0 34.2 34.3 MCHC g/dL 33.2 32.4 32.4 31.8 30.9 31.6 RDW % 12.70 14.10 12.70 12.30 15.70 17.40 (H) PLT x 10^3/uL 175 163 177 167 154 154 MPV fL 9.1 (L) 8.8 (L) 9.3 (L) 9.5 8.2 (L) 8.3 (L) Augustus % 63.2 58.6 63.9 57.5 49.9 72.4 LY % 25.7 24.3 27.5 28.6 32.0 17.0 MO % 10.8 16.2 (H) 7.9 11.6 14.5 9.4 EO % 0.0 0.3 0.2 1.5 2.5 0.3 BA % 0.0 0.3 0.3 0.4 0.4 0.0 IG % 0.3 0.3 0.2 0.4 0.7 (H) 0.9 (H) Augustus # (ANC) x 10^3/uL 2.5 2.0 4.0 3.0 2.2 6.5 LY # x 10^3/uL 1.0 0.8 1.7 1.5 1.4 1.5 MO # x 10^3/uL 0.4 0.5 0.5 0.6 0.7 0.8 EO # x 10^3/uL 0.0 0.0 0.0 0.1 0.1 0.0 BA # x 10^3/uL 0.0 0.0 0.0 0.0 0.0 0.0 IG # x 10^3/uL 0.01 0.01 0.01 0.02 0.03 0.08 (H) Chemistries LabResults 12/03/2023 07/05/2023 06/04/2023 04/12/2023 10/13/202 3 02/12/2023 Chemistries Glucose mg/dL 126 (H) 97 85 136 (H) BUN mg/dL 14.0 15.0 14.0 9.0 Creatinine mg/dL 1.30 (H) 1.06 0.86 0.98 Sodium mmol/L 140 143 146 (H) 147 (H) Potassium mmol/L 3.9 4.4 3.8 4.3 Potassium, iSTAT mmol/L 3.8 3.8 Chloride mmol/L 108 (H) 109 110 113 Sodium, iSTAT mmol/L 139 Chloride, iSTAT mmol/L 100 CO2 mmol/L 24 25 24 21 Calcium mg/dL 9.1 10.4 9.1 8.5 (L) Albumin g/dL 4.3 4.4 3.8 3.4 Total protein g/dL 6.5 6.4 5.6 (L) 5.2 (L) Bilirubin, total mg/dL 0.7 0.5 0.3 0.5 Alkaline phosphatase U/L 126 (H) 107 90 89 AST/SGOT U/L 39 (H) 23 18 18 ALT/SGPT U/L 29 26 17 15 GFR estimate mL/min/1.73m2 44.3 (L) 56.7 (L) 73.0 62.4 Magnesium, mg/dL 1.5 ? Surveys/Consents/Other Discussions Yoly Luna RN, JOAN, MA, OCN CC: ? Electronically signed by Cheryl Frederick RN, JOAN, MA, OCN 03/23/2024 11:40 ANODE REBUILDER
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
--- OUTSIDE RECORDS SUMMARY | 2025-02-08 13:03 | XMS_ITS ---
Author Name Interface, [id number] lity Address [address] [place] [address] Oncology Address [facility] [address] [address] Allergies and Adverse Reactions Plan Reason for Visit Encounters Immunizations Diagnostic Results Medications Problems Vital Signs
--- OUTSIDE RECORDS SUMMARY | 2025-02-08 13:03 | XMS_ITS ---
Author Name Interface, [id number] lity Address [address] [place], [place] [address] [id number] [facility] Oncology Address [facility] [address] Allergies and Adverse Reactions Plan Reason for Visit Encounters Immunizations Diagnostic Results Medications Problems Vital Signs Notes Section
--- OUTSIDE RECORDS SUMMARY | 2025-02-08 13:03 | XMS_ITS | Clinical Summary ---
Author Organization [facility] Address [address] [place] [address] Care Team Providers Care Desk Monitor Name Role Phone Gabriella Marte PA-C Primary Care Provider [phone] Allergies Active Allergy Reactions Criticality Noted Date Comments Imatinib Mesylate Rash Low 09/01/2012 Hydrocodone-Acetamino phen Other (See Comments) 10/23/2016 Hallucinations Levonorgestrel-Ethiny l Estrad Headache 09/10/2013 Other reaction(s): Runny Nose Oxycodone Unknown 12/10/2016 Topamax Palpitations Low 06/25/2012 Diazepam 11/06/2022 Hallucinations Medications fluticasone (FLONASE) 50 MCG/ACT nasal spray [place] 2 sprays into both nostrils daily as [...] on file Legal Sex Female 3:40 AM SLEEVER Gender Identity Not on file Sexual Orientation [...] this topic Medical Devices Implanted Type Area Siebel Administrator Device Identifier Shelf Expiration Date Model / Serial / Lot Cath Port Mri Powerport 8fr Sl [id number] - [id number] Implanted:Qty: 1 on 11/12/2022 by Karmen Erickson MD at [facility] Catheter Left: Chest [employer] 07/17/2024 [id number] / / [id number] Procedures Procedure Name Priority Date/Time Associated Diagnosis Comments HEMOGLOBIN A1C Routine 03/30/2024 11:37 AM SLEEVER Peripheral nerve disorder MA DIAGNOSTIC RIGHT W YO Routine 10/23/2022 9:28 AM CDT Abnormal mammogram COLONOSCOPY Routine 11/24/2004 3:20 PM CDT from Last 3 Months or Most Recently Relevant to Health Maintenance Results * Hemoglobin A1c (03/30/2024 11:37 AM SLEEVER) Estimated Average Glucose 114 <117 mg/dL 03/30/2024 11:57 AM SLEEVER [facility] Hemoglobin A1C 5.6 <5.7 % 03/30/2024 11:57 AM SLEEVER [facility] Comment: Normal <5.7% Prediabetes 5.7-6.4% Diabetes 6.5% or higher Note: Adopted from ADA consensus guidelines. Blood STRUCTURE OF RIGHT UPPER LIMB / Unknown Venipuncture / Unknown 03/30/2024 11:37 AM SLEEVER 03/30/2024 11:38 AM SLEEVER us Edwar Moseley MD LAB - BLOOD ORDERABLES Final Result [facility] [address] [facility] (1st floor, no room number) [place] [address] * MA Diagnostic Right w/Yo (10/23/2022 [...] * COLONOSCOPY (11/24/2004 3:20 PM CDT) COLONOSCOPY [facility] Patient Name: Calista Guy Gender: [...] saturations were monitored continuously. The Colonoscope P-52 #[id number] was introduced through the anus and advanced [...] Advance Directives For more information, please contact: [phone] * Full Code (Latest Code Status on File) Date Activated Date Inactivated Comments 07/17/2013 9:35 PM 07/19/2013 4:53 PM Care Teams Desk Monitor Relationship Specialty Start Date End Date Gabriella Marte, PATayoC [facility] [address] [id number] PCP - General Physician Ad Terminal Makeup Operator 06/29/18
--- OUTSIDE RECORDS SUMMARY | 2025-02-08 13:04 | XMS_ITS ---
Author Name Interface, [id number] lity Address [address] [facility] [address] [address] [facility] Address [address] [facility] [address] [address] Allergies and Adverse Reactions Medication/Group Name Reaction [...] 03/22/2023 APPOINTMENT TREATMENT 2 HR 03/13/2023 APPOINTMENT CARE HOME FOLLOW UP 20 MIN 03/13/2023 APPOINTMENT LAB [...] 20 MIN 09/11/2022 APPOINTMENT LAB 15 MIN 09/11/2022 LABORDER BCR-ABL [id number] pineda ntitative 09/11/2022 [...] Visit OV 30 MIN Encounters Date Name 09/11/2022 Acute pharyngitis 09/11/2022 Breast cancer, femal e 09/11/2022 Vicky intertrigo ( disorder) 09/11/2022 Cellulitis of breast (disorder) 09/11/2022 Chronic myeloid leuk emia, disease (disorder) 09/11/2022 Counseling 09/11/2022 Dehydration 09/11/2022 Depressive disorder (disorder) 09/11/2022 Diarrhea caused by d rug (disorder) 09/11/2022 Drug-induced nausea and vomiting (disorder) 09/11/2022 Drug-induced neutrop enia (disorder) 09/11/2022 Estrogen receptor ne gative status [ER-] 09/11/2022 Hypokalemia (disorde r) 09/11/2022 Limited range of mot ion 09/11/2022 Lower extremity elie a 09/11/2022 Lymphedema 09/11/2022 Muscle weakness (fin ding) 09/11/2022 Neutropenia preventi on 09/11/2022 Personal history of breast cancer 09/11/2022 Right shoulder pain 09/11/2022 Screening status (fi nding) 09/11/2022 Secondary malignancy of lymph nodes 09/11/2022 Thrombocytopenia cau sed by drugs (disorder) Immunizations Date Name Route Dose Instructions Refusal Reason Stat us Flu vaccine - Adult Comp leted Flu vaccine - Adult Comp leted Covid-19 vaccine (Moderna) Patient declined/rejected Not Administered Diagnostic Results Date Type Test Units Lower Limit Upper Limit Result Flag Comments Status Ordered By Specimen Source Lab Address 09/11 CMP Album in g/dL 3.2 5.2 4.5 FINAL Kennedy Carmonaot a [facility] - [place], [address] [facility] [address] [facility] [phone] Phone: () - 09/11 CMP Alkal ine phosp hatas e U/L 46.0 116.0 111 FINAL Kennedy muñoz [facility] [place], [address] [facility] 100 [facility] [phone] 0 Phone: () - 09/11 CMP ALT/S GPT U/L 7.0 40.0 22 FINAL Kennedy Carmona toni [facility] [address] [facility] 100 [facility] [phone] 0 Phone: () - 09/11 CMP AST/S GOT U/L 13.0 40.0 20 FINAL [place] [address] [facility] 100 [facility] [phone] 0 Phone: () - 09/11 CMP BUN mg/dL 9.0 23.0 10.0 FINAL [place] [address] [address] [facility] 100 [facility] [phone] 0 Phone: () - 09/11 CMP Calci um mg/dL 8.7 10.4 9.7 FINAL [place] [address] [phone] 0 Phone: () - 09/11 CMP Chlor rakan mmol/L 96.0 114.0 109 FINAL [place] [address] [phone] 0 Phone: () - 09/11 CMP CO2 [...] the 96 hour stability window. FINAL [facility] [place] [facility], [facility] [address] [phone] 0 Phone: () - 09/11 CMP Creat inine mg/dL 0.5 1.2 1.05 FINAL [place] [address] [phone] 0 Phone: () - 09/11 CMP GFR estim ate ml/min /1.73m ^2 57.6 Low GFR is calculate d using the CKD-EPI equation. FINAL Kennedy Carmona a [facility], [facility] [address] [phone] 0 Phone: () - 09/11 CMP Gluco se mg/dL 73.0 126.0 104 FINAL [place] [address] [id number] 0 Phone: () - 09/11 CMP Potas sium mmol/L 3.5 5.1 4.3 FINAL [place] [address] [phone] 0 Phone: () - 09/11 CMP Sodiu m mmol/L 136.0 145.0 145 FINAL [place] [address] [phone] 0 Phone: () - 09/11 CMP Bilir ubin, total mg/dL 0.3 1.[address] 0.[address] [facility] [address] [id number] 0 Phone: () - 09/11 CMP Total prote in g/dL 5.7 8.2 6.9 FINAL [place] [address] [phone] 0 Phone: () - 09/11 PRIOR RESUL T Not Given FINAL Kennedy Bernalroselyn [facility], [facility] [address] [place] [phone] 4 09/11 SOURC E: Periphe ral Blood FINAL Kennedy Bernalroselyn [facility], [facility] [address] [place] [phone] 4 09/11 BCR ABL1/ ABL1 % % 0.000 FINAL Kennedy Bernalroselyn [facility], [facility] [address] [place] [id number] 4 09/11 BCR ABL1/ ABL1 % (IS) % 0.000 FINAL [place] [facility], [facility] [address] [place] [phone] 4 09/11 INTER PRETA TION see note [...] l informati on, please refer tohttp:// education .Mesh [place]/faq/F AQ72(This link is being provided forinform ational/e ducationa l purposes only.)Ass ay sensitivi ty is at least 4.5-logs below baselineB CR-ABL1 transcrip t levels but is dependent onquantit y and quality of RNA used for testing and thecellul arity of the sample.Th is test was developed and its analytica lperforma nce character istics have been determine dby [facility] [place], [place].It has not been cleared or approved by the FDA. Thisassay has been validated pursuant to the CLIAregul ations and is used for clinical purposes. Meera drake, Ph.D., FACTech nical Director, Molecular Oncology FINAL Kennedy Bernalub [facility], [facility] [address] [place] [phone] 4 09/11 P190 BCR ABL1 Not Detecte d FINAL Kennedy Bernalub [facility], [facility] [address] [place] [id number] 4 09/11 P210 BCR ABL1 Not Detecte d FINAL [facility] [place] [facility], [facility] [address] [facility] [id number] 4 09/11 CBC w/ auto diff WBC K/uL 3.0 8.9 5.7 FINAL [place] [facility] [place], [address] [place] [address] [address] [place] [phone] 0 Phone: () - 09/11 CBC w/ auto diff HGB g/dL 11.3 15.2 13.8 FINAL [place] [facility] [place], [address] [place] [address] [address] [place] [phone] 0 Phone: () - 09/11 CBC w/ auto diff PLT K/uL 113.0 364.0 167 FINAL [place] [facility], [address] [place] [address] [address] [place] [phone] 0 Phone: () - 09/11 CBC w/ auto diff Augustus # (ANC) K/uL 1.6 6.6 3.7 FINAL [place] [facility], [address] [place] [address] [address] [place] [phone] 0 Phone: () - 09/11 CBC w/ auto diff Augustus % % 43.0 74.0 64.2 FINAL Kennedy Carmonaot a [facility], [address] [place] [address] [address] [place] [phone] 0 Phone: () - 09/11 CBC w/ auto diff IG % % 0.0 0.5 0.2 FINAL Kennedy Carmonaot a [facility], [address] [place] [address] [address] [place] [phone] 0 Phone: () - 09/11 CBC w/ auto diff IG # K/uL 0.0 0.03 0.01 FINAL [place] [address] [place] [phone] 0 Phone: () - 09/11 CBC w/ auto diff LY % % 14.0 41.0 24.0 FINAL [place] [address] 210 [facility] [phone] 0 Phone: () - 09/11 CBC w/ auto diff MO % % 6.0 15.0 9.9 FINAL Kennedy [place] [facility] [place], [address] [place] [address] 210 [facility] [phone] 0 Phone: () - 09/11 CBC w/ auto diff EO % % 0.0 7.0 1.2 FINAL [place] [facility] [place], [address] [place] [address] 210 [facility] [phone] 0 Phone: () - 09/11 CBC w/ auto diff BA % % 0.0 2.0 0.5 FINAL [place] [facility], [address] [place] [address] 210 [facility] [phone] 0 Phone: () - 09/11 CBC w/ auto diff LY # K/uL 0.4 3.6 1.4 FINAL [place] [facility], [address] [place] [address] 210 [facility] [phone] 0 Phone: () - 09/11 CBC w/ auto diff MO # K/uL 0.2 1.3 0.6 FINAL [place] [facility], [address] [place] [address] 210 [facility] [phone] 0 Phone: () - 09/11 CBC w/ auto diff EO # K/uL 0.0 0.6 0.1 FINAL [place] [facility], [address] [place] [address] 210 [facility] [phone] 0 Phone: () - 09/11 CBC w/ auto diff BA # K/uL 0.0 0.2 0.0 FINAL [place] [facility] [place], [address] [place] [address] 210 [facility] [phone] 0 Phone: () - 09/11 CBC w/ auto diff NRBC % #/100W BC 0.0 0.2 0.0 FINAL [place] [facility], [address] [place] [address] 210 [facility] [phone] 0 Phone: () - 09/11 CBC w/ auto diff RBC M/uL 3.9 5.1 4.38 FINAL [facility], [address] [place] [address] 210 [place] [phone] 0 Phone: () - 09/11 CBC w/ auto diff HCT % 35.0 48.0 42.8 FINAL [facility], [address] [place] [address] [address] [place] [phone] 0 Phone: () - 09/11 CBC w/ auto diff MCV fL 80.0 104.0 97.7 FINAL [facility], [address] [place] [address] [address] [place] [phone] 0 Phone: () - 09/11 CBC w/ auto diff MCH pg 26.0 35.0 31.5 FINAL [facility], [address] [place] [address] [address] [place] [phone] 0 Phone: () - 09/11 CBC w/ auto diff MCHC g/dL 30.0 35.0 32.2 FINAL [facility], [address] [place] [address] [address] [place] [phone] 0 Phone: () - 09/11 CBC w/ auto diff MPV fL 9.5 13.4 9.3 Low FINAL Kennedy [facility], [address] [place] [address] [address] [place] [phone] 0 Phone: () - 09/11 CBC w/ auto diff RDW % 11.4 16.1 12.70 FINAL [facility], [address] [place] [address] [address] [place] [phone] 0 Phone: () - 11/16 CMP Album in g/dL 3.2 5.2 4.[address] [facility] [address] [place] [phone] 0 Phone: () - 11/16 CMP Alkal ine phosp hatas e U/L 46.0 116.0 91 FINAL Nicole [place] [facility], [address] [facility] 100 [facility] [phone] 0 Phone: () - 11/16 CMP ALT/S GPT U/L 7.0 40.0 15 FINAL Nicole Terrazas [facility], [address] [phone] 0 Phone: () - 11/16 CMP AST/S GOT U/L 13.0 40.0 18 FINAL Nicole Terrazas [facility] [address] [phone] 0 Phone: () - 11/16 CMP BUN mg/dL 9.0 23.0 16.0 FINAL [place] [address] [phone] 0 Phone: () - 11/16 CMP Calci um mg/dL 8.7 10.4 9.8 FINAL Nicole Terrazas [place] [address] [phone] 0 Phone: () - 11/16 CMP Chlor rakan mmol/L 96.0 114.0 109 FINAL Nicole Terrazas [facility], [address] [phone] 0 Phone: () - 11/16 CMP CO2 [...] 96 hour stability window. FINAL Nicole muñoz [facility], [address] [phone] 0 Phone: () - 11/16 CMP Creat inine mg/dL 0.5 1.2 0.88 FINAL [facility], [address] [phone] 0 Phone: () - 11/16 CMP GFR estim ate ml/min /1.73m ^2 71.2 GFR is calculate d using the CKD-EPI equation. FINAL Nicole muñoz [facility], [address] [phone] 0 Phone: () - 11/16 CMP Gluco se mg/dL 73.0 126.0 152 High FINAL Nicole muñoz [facility], [address] [phone] 0 Phone: () - 11/16 CMP Potas sium mmol/L 3.5 5.1 4.2 FINAL Nicole muñoz [facility] [address] [phone] 0 Phone: () - 11/16 CMP Sodiu m mmol/L 136.0 145.0 142 FINAL Nicole muñoz [place] [address] [phone] 0 Phone: () - 11/16 CMP Bilir ubin, total mg/dL 0.3 1.2 0.6 FINAL Nicole muñoz [facility] [address] [phone] 0 Phone: () - 11/16 CMP Total prote in g/dL 5.7 8.2 6.8 FINAL Nicole muñoz [place] [address] [id number] 0 Phone: () - 11/16 CBC w/ auto diff WBC K/uL 3.0 8.9 7.6 FINAL Nicole muñoz [facility] - [place], [address] [facility] [facility] [address] [facility] [phone] 0 Phone: () - 11/16 CBC w/ auto diff HGB g/dL 11.3 15.2 13.4 FINAL Nicole muñoz [facility] - [place], [address] [facility] [facility] [address] [facility] [phone] 0 Phone: () - 11/16 CBC w/ auto diff PLT K/uL 113.0 364.0 162 FINAL Nicole muñoz [facility] - [place], [address] [facility] [address] [facility] [phone] 0 Phone: () - 11/16 CBC w/ auto diff Augustus # (ANC) K/uL 1.6 6.6 6.7 High FINAL Nicole Carmonaot a [facility] - [place], [address] [place] [id number] 0 Phone: () - 11/16 CBC w/ auto diff Augustus % % 43.0 74.0 88.7 High FINAL Nicole [facility] - [place], [address] [place] [phone] 0 Phone: () - 11/16 CBC w/ auto diff IG % % 0.0 0.5 0.7 High FINAL Nicole Ya [place] a [facility] - [place], [address] [place] [phone] 0 Phone: () - 11/16 CBC w/ auto diff IG # K/uL 0.0 0.03 0.05 High FINAL Nicole Ya [place] [facility] - [place], [address] [place] [phone] 0 Phone: () - 11/16 CBC w/ auto diff LY % % 14.0 41.0 8.8 Low FINAL Nicole Ya Nini muñoz [facility] - [place], [address] [place] [id number] 0 Phone: () - 11/16 CBC w/ auto diff MO % % 6.0 15.0 1.8 Low FINAL Nicole Ya [place] [facility] - [place], [address] [place] [phone] 0 Phone: () - 11/16 CBC w/ auto diff EO % % 0.0 7.0 0.0 FINAL Nicole [facility] - [place], [address] [place] [phone] 0 Phone: () - 11/16 CBC w/ auto diff BA % % 0.0 2.0 0.0 FINAL Nicole Ya [facility] [facility] - [place], [address] [place] [phone] 0 Phone: () - 11/16 CBC w/ auto diff LY # K/uL 0.4 3.6 0.7 FINAL Nicole muñoz [facility] - [place], [address] [place] [phone] 0 Phone: () - 11/16 CBC w/ auto diff MO # K/uL 0.2 1.3 0.1 Low FINAL Nicole Ya Mathewdamaris muñoz On[facility] - [place], [address] [place] [phone] 0 Phone: () - 11/16 CBC w/ auto diff EO # K/uL 0.0 0.6 0.0 FINAL Nicole Felton Mathewdamaris muñoz [facility] - [place], [address] [place] [id number] 0 Phone: () - 11/16 CBC w/ auto diff BA # K/uL 0.0 0.2 0.0 FINAL Nicole Felton Mathewdamaris muñoz [facility] - [place], [address] [place] [id number] 0 Phone: () - 11/16 CBC w/ auto diff NRBC % #/100W BC 0.0 0.2 0.0 FINAL Nicole Felton Mathewdamaris muñoz On[facility] - [place], [address] [place] [phone] 0 Phone: () - 11/16 CBC w/ auto diff RBC M/uL 3.9 5.1 4.16 FINAL Nicole Ya Mathewdamaris muñoz [facility] - [place], [address] [place] [id number] 0 Phone: () - 11/16 CBC w/ auto diff HCT % 35.0 48.0 39.7 FINAL Nicole Ya Mathewdamaris muñoz [facility] - [place], [address] [place] [phone] 0 Phone: () - 11/16 CBC w/ auto diff MCV fL 80.0 104.0 95.4 FINAL Nicole [place] [facility] - [place], [address] [place] [phone] 0 Phone: () - 11/16 CBC w/ auto diff MCH pg 26.0 35.0 32.2 FINAL Nicole Terrazas a [facility] - [place], [address] [place] [phone] 0 Phone: () - 11/16 CBC w/ auto diff MCHC g/dL 30.0 35.0 33.8 FINAL Nicole muñoz [facility] - [place], [address] [place] [id number] 0 Phone: () - 11/16 CBC w/ auto diff MPV fL 9.5 13.4 9.3 Low FINAL Nicole muñoz [facility] - [place], [address] [place] [phone] 0 Phone: () - 11/16 CBC w/ auto diff RDW % 11.4 16.1 11.90 FINAL Nicole muñoz [facility] - [place], [address] [place] [phone] 0 Phone: () - 11/16 iSTAT creat inine panel Creat inine , iSTAT mg/dl 0.6 1.3 0.9 FINAL Nicole muñoz [facility] - [place], [address] [place] [phone] 0 Phone: () - 11/16 iSTAT creat inine panel GFR estim ate ml/min /1.73m ^2 69.3 GFR is calculate d using the CKD-EPI equation. FINAL Nicole muñoz [facility] - [place], [address] [place] [phone] 0 Phone: () - 11/21 CBC w/ auto diff WBC K/uL 3.0 8.9 1.0 Low FINAL Nicole muñoz [facility] - [place], [address] [place] [id number] 0 Phone: () - 11/21 CBC w/ auto diff HGB g/dL 11.3 15.2 13.2 FINAL Nicole Carmonaot a [facility] - [place], [address] [place] [phone] 0 Phone: () - 11/21 CBC w/ auto diff PLT K/uL 113.0 364.0 47 Critica l hematol ogy result obtaine d Criti todd Low FINAL Nicole Carmonaot a [facility] - [place], [address] [place] [id number] 0 Phone: () - 11/21 CBC w/ auto diff Augustus # (ANC) K/uL 1.6 6.6 0.4 Critica l hematol ogy result obtaine d Criti todd Low FINAL Nicole [facility]ona[facility] a [facility] - [place], [address] [place] [phone] 0 Phone: () - 11/21 CBC w/ auto diff Augustus % % 43.0 74.0 34.7 Low FINAL Nicole Carmona[facility] a [facility] - [place], [address] [place] [phone] 0 Phone: () - 11/21 CBC w/ auto diff IG % % 0.0 0.5 1.9 High FINAL Nicole [facility] a [facility] - [place], [address] [place] [phone] 0 Phone: () - 11/21 CBC w/ auto diff IG # K/uL 0.0 0.03 0.02 FINAL Nicole [facility] a [facility] - [place], [address] [place] [id number] 0 Phone: () - 11/21 CBC w/ auto diff LY % % 14.0 41.0 56.7 High FINAL Nicole [facility] a [facility] - [place], [address] [place] [phone] 0 Phone: () - 11/21 CBC w/ auto diff MO % % 6.0 15.0 1.9 Low FINAL Nicole [facility] a [facility] - [place], [address] [place] [phone] 0 Phone: () - 11/21 CBC w/ auto diff EO % % 0.0 7.0 1.9 FINAL Nicole [facility] - [place], [address] [place] [phone] 0 Phone: () - 11/21 CBC w/ auto diff BA % % 0.0 2.0 2.9 High FINAL Nicole [facility] - [place], [address] [place] [phone] 0 Phone: () - 11/21 CBC w/ auto diff LY # K/uL 0.4 3.6 0.6 FINAL Nicole [facility] - [place], [address] [place] [id number] 0 Phone: () - 11/21 CBC w/ auto diff MO # K/uL 0.2 1.3 0.0 Low FINAL Nicole Carm[facility] a [facility] - [place], [address] [place] [phone] 0 Phone: () - 11/21 CBC w/ auto diff EO # K/uL 0.0 0.6 0.0 FINAL Nicole [facility] a [facility] - [place], [address] [place] [phone] 0 Phone: () - 11/21 CBC w/ auto diff BA # K/uL 0.0 0.2 0.0 FINAL Nicole [facility] a [facility] - [place], [address] [place] [phone] 0 Phone: () - 11/21 CBC w/ auto diff NRBC % #/100W BC 0.0 0.2 0.0 FINAL Nicole Carmona[facility] a [facility] - [place], [address] [place] [id number] 0 Phone: () - 11/21 CBC w/ auto diff RBC M/uL 3.9 5.1 4.07 FINAL Nicole muoñz Oncology - [place], [address] [place] [phone] 0 Phone: () - 11/21 CBC w/ auto diff HCT % 35.0 48.0 38.4 FINAL Nicole muñoz On[facility] - [place], [address] [place] [phone] 0 Phone: () - 11/21 CBC w/ auto diff MCV fL 80.0 104.0 94.3 FINAL Nicole Ya Nini muñoz [facility] - [place], [address] [place] [phone] 0 Phone: () - 11/21 CBC w/ auto diff MCH pg 26.0 35.0 32.4 FINAL Nicole Ya Nini muñoz On[facility] - [place], [address] [place] [id number] 0 Phone: () - 11/21 CBC w/ auto diff MCHC g/dL 30.0 35.0 34.4 FINAL Nicole muñoz [facility] - [place], [address] [place] [phone] 0 Phone: () - 11/21 CBC w/ auto diff MPV fL 9.5 13.4 10.1 FINAL Nicole Ya Nini muñoz On[facility] - [place], [address] [place] [phone] 0 Phone: () - 11/21 CBC w/ auto diff RDW % 11.4 16.1 11.80 FINAL Nicole muñoz [facility] - [place], [address] [place] [phone] 0 Phone: () - 11/21 CBC w/ auto diff Auto CBC comme nts Slide review to follow FINAL Nicole Ya Mathewdamaris muñoz [facility] - [place], [address] [place] [phone] 0 Phone: () - 11/21 Smear revie w panel CBC Smear revie w comme nts Consist ent with reporte d results Abnorma l Lymphs present Large and-or giant platele ts present FINAL Nicole Terrazas [facility], [address] [facility] [phone] 0 Phone: () - 11/21 CMP Album in g/dL 3.2 5.2 3.9 FINAL Nicole Terrazas [facility], [facility] [address] [place] [address] [phone] 0 Phone: () - 11/21 CMP Alkal ine phosp hatas e U/L 46.0 116.0 90 FINAL Nicole Terrazas [place] [address] [place] [address] [phone] 0 Phone: () - 11/21 CMP ALT/S GPT U/L 7.0 40.0 37 FINAL Nicole Terrazas [place] [address] [facility] [phone] 0 Phone: () - 11/21 CMP AST/S GOT U/L 13.0 40.0 31 FINAL [place] [address] [address] [facility] [address] [facility] [phone] 0 Phone: () - 11/21 CMP BUN mg/dL 9.0 23.0 13.0 FINAL Nicole muñoz [place] [address] [place] [address] [phone] 0 Phone: () - 11/21 CMP Calci um mg/dL 8.7 10.4 8.9 FINAL Nicole muñoz [place] [address] [place] [address] [id number] 0 Phone: () - 11/21 CMP Chlor rakan mmol/L 96.0 114.0 107 FINAL Nicole Terrazas [place] [address] [place] [address] [phone] 0 Phone: () - 11/21 CMP CO2 [...] 96 hour stability window. FINAL Nicole Terrazas [facility], [facility] [address] [phone] 0 Phone: () - 11/21 CMP Creat inine mg/dL 0.5 1.2 0.83 FINAL [place] [address] [phone] 0 Phone: () - 11/21 CMP GFR estim ate ml/min /1.73m ^2 76.3 GFR is calculate d using the CKD-EPI equation. FINAL [place] [address] [phone] 0 Phone: () - 11/21 CMP Gluco se mg/dL 73.0 126.0 99 FINAL [place] [address] [phone] Phone: () - 11/21 CMP Potas sium mmol/L 3.5 5.1 3.8 FINAL [place] [address] [id number] 0 Phone: () - 11/21 CMP Sodiu m mmol/L 136.0 145.0 142 FINAL [place] [address] [id number] 0 Phone: () - 11/21 CMP Bilir ubin, total mg/dL 0.3 1.2 1.3 High FINAL [place] [address] [phone] 0 Phone: () - 11/21 CMP Total prote in g/dL 5.7 8.2 6.0 FINAL [place] [address] [phone] 0 Phone: () - 11/27 iSTAT Na+/K +/Cl- panel Sodiu m, iSTAT mmol/L 138.0 146.0 137 Low Reference range adjusted 0 with implement ation of I-Stat 8+ cartridge . FINAL Nicole Terrazas a [facility] - [place], [address] [place] [phone] 0 Phone: () - 11/27 iSTAT Na+/K +/Cl- panel Potas sium, iSTAT mmol/L 3.5 4.9 3.4 Low Reference range adjusted 0 with implement ation of I-Stat 8+ cartridge . FINAL [facility] [place], [address] [place] [phone] 0 Phone: () - 11/27 iSTAT Na+/K +/Cl- panel Chlor rakan, iSTAT mmol/L 98.0 109.0 99 Reference range adjusted 0 with implement ation of I-Stat 8+ cartridge . FINAL [facility] [place], [address] [place] [id number] 0 Phone: () - 11/27 iSTAT creat inine panel Creat inine , iSTAT mg/dl 0.6 1.3 1.1 FINAL [facility] [place], [address] [place] [id number] 0 Phone: () - 11/27 iSTAT creat inine panel GFR estim ate ml/min /1.73m ^2 54.4 Low GFR is calculate d using the CKD-EPI equation. FINAL [facility] [place], [address] [place] [id number] 0 Phone: () - 11/27 CBC w/ auto diff WBC K/uL 3.0 8.9 32.0 High FINAL [facility] [place], [address] [place] [id number] 0 Phone: () - 11/27 CBC w/ auto diff HGB g/dL 11.3 15.2 13.3 FINAL Nicole Felton Mathewot a [facility] - [place], [address] [place] [id number] 0 Phone: () - 11/27 CBC w/ auto diff PLT K/uL 113.0 364.0 87 Low FINAL Nicole Felton [facility] [place], [address] [place] [id number] 0 Phone: () - 11/27 CBC w/ auto diff Augustus # (ANC) K/uL 1.6 6.6 25.7 High FINAL Nicole Ya Mathewdamaris a [facility] - [place], [address] [place] [id number] 0 Phone: () - 11/27 CBC w/ auto diff Augustus % % 43.0 74.0 80.5 High FINAL Nicole Ya Mathewdamaris a [facility] - [place], [address] [place] [id number] 0 Phone: () - 11/27 CBC w/ auto diff IG % % 0.0 0.5 7.6 High FINAL Nicole Ya [facility] - [place], [address] [place] [id number] 0 Phone: () - 11/27 CBC w/ auto diff IG # K/uL 0.0 0.03 2.44 High FINAL Nicole Ya [facility] - [place], [address] [place] [id number] 0 Phone: () - 11/27 CBC w/ auto diff LY % % 14.0 41.0 5.8 Low FINAL Nicole Ya [facility] - [place], [address] [place] [id number] 0 Phone: () - 11/27 CBC w/ auto diff MO % % 6.0 15.0 6.1 FINAL Nicole Ya [facility]ot a [facility] - [place], [address] [place] [id number] 0 Phone: () - 11/27 CBC w/ auto diff EO % % 0.0 7.0 0.0 FINAL Nicole Carmonaot a [facility] - [place], [address] [place] [id number] 0 Phone: () - 11/27 CBC w/ auto diff BA % % 0.0 2.0 0.0 FINAL Nicole Terrazas a [facility] - [place], [address] [place] [id number] 0 Phone: () - 11/27 CBC w/ auto diff LY # K/uL 0.4 3.6 1.8 FINAL Nicole Terrazas a [facility] - [place], [address] [place] [id number] 0 Phone: () - 11/27 CBC w/ auto diff MO # K/uL 0.2 1.3 2.0 High FINAL Nicole Terrazas a [facility] - [place], [address] [place] [id number] 0 Phone: () - 11/27 CBC w/ auto diff EO # K/uL 0.0 0.6 0.0 FINAL Nicole Terrazas a [facility] - [place], [address] [place] [id number] 0 Phone: () - 11/27 CBC w/ auto diff BA # K/uL 0.0 0.2 0.0 FINAL Nicole Terrazas a [facility] - [place], [address] [place] [id number] 0 Phone: () - 11/27 CBC w/ auto diff NRBC % #/100W BC 0.0 0.2 0.3 High FINAL Nicole Terrazas a [facility] - [place], [address] [place] [id number] 0 Phone: () - 11/27 CBC w/ auto diff RBC M/uL 3.9 5.1 4.09 FINAL Nicole Carmonaot a [facility] - [place], [address] [place] [id number] 0 Phone: () - 11/27 CBC w/ auto diff HCT % 35.0 48.0 38.0 FINAL Nicole Terrazas a [facility] - [place], [address] [place] [id number] 0 Phone: () - 11/27 CBC w/ auto diff MCV fL 80.0 104.0 92.9 FINAL Nicole Terrazas a [facility] - [place], [address] [place] [id number] 0 Phone: () - 11/27 CBC w/ auto diff MCH pg 26.0 35.0 32.5 FINAL [facility] [place], [address] [place] [id number] 0 Phone: () - 11/27 CBC w/ auto diff MCHC g/dL 30.0 35.0 35.0 FINAL [facility] [place], [address] [place] [id number] 0 Phone: () - 11/27 CBC w/ auto diff MPV fL 9.5 13.4 9.1 Low FINAL [facility] [place], [address] [place] [id number] 0 Phone: () - 11/27 CBC w/ auto diff RDW % 11.4 16.1 11.60 FINAL [facility] [place], [address] [place] [id number] 0 Phone: () - 12/07 iSTAT creat inine panel Creat inine , iSTAT mg/dl 0.6 1.3 0.8 FINAL Tiara Coronado [facility] - [place], [address] [place] [id number] 0 Phone: () - 12/07 Xi hermosillo inine panel GFR estim ate ml/min /1.73m ^2 79.8 GFR is calculate d using the CKD-EPI equation. FINAL [facility], [address] [facility] [phone] 0 Phone: () - 12/07 CMP Album in g/dL 3.2 5.2 3.9 FINAL [place] [address] [facility] [id number] 0 Phone: () - 12/07 CMP Alkal ine phosp hatas e U/L 46.0 116.0 97 FINAL [place] [address] [facility] [id number] 0 Phone: () - 12/07 CMP ALT/S GPT U/L 7.0 40.0 27 FINAL [place] [address] [facility] [id number] 0 Phone: () - 12/07 CMP AST/S GOT U/L 13.0 40.0 17 FINAL [place] [address] [facility] [id number] 0 Phone: () - 12/07 CMP BUN mg/dL 9.0 23.0 12.0 FINAL [place] [address] [facility] [id number] 0 Phone: () - 12/07 CMP Calci um mg/dL 8.7 10.4 9.8 FINAL [place] [address] [facility] [id number] 0 Phone: () - 12/07 CMP Chlor rakan mmol/L 96.0 114.0 110 FINAL [place] [address] [place] [phone] 0 Phone: () - 12/07 CMP CO2 [...] of the 96 hour stability window. FINAL Tiara Coronado [place] [address] [id number] 0 Phone: () - 12/07 CMP Creat inine mg/dL 0.5 1.2 0.89 FINAL Tiara [place] [address] [id number] 0 Phone: () - 12/07 CMP GFR estim ate ml/min /1.73m ^2 70.2 GFR is calculate d using the CKD-EPI equation. FINAL Tiara [place] [address] [id number] 0 Phone: () - 12/07 CMP Gluco se mg/dL 73.0 126.0 152 High FINAL [place] [address] [id number] 0 Phone: () - 12/07 CMP Potas sium mmol/L 3.5 5.1 4.3 FINAL Tiara [place] [address] [id number] 0 Phone: () - 12/07 CMP Sodiu m mmol/L 136.0 145.0 145 FINAL [place] [address] [id number] 0 Phone: () - 12/07 CMP Bilir ubin, total mg/dL 0.3 1.2 0.6 FINAL [place] [address] [id number] 0 Phone: () - 12/07 CMP Total prote in g/dL 5.7 8.2 5.9 FINAL [place] [address] [id number] 0 Phone: () - 12/07 CBC w/ auto diff WBC K/uL 3.0 8.9 17.1 High FINAL Tiara Carmonaot a [facility] - [place], [address] [place] [id number] 0 Phone: () - 12/07 CBC w/ auto diff HGB g/dL 11.3 15.2 10.9 Low FINAL Tiara Carmonaot a [facility] - [place], [address] [place] [id number] 0 Phone: () - 12/07 CBC w/ auto diff PLT K/uL 113.0 364.0 157 FINAL Tiara Carmonaot a [facility] - [place], [address] [place] [id number] 0 Phone: () - 12/07 CBC w/ auto diff Augustus # (ANC) K/uL 1.6 6.6 15.3 High FINAL Tiara Carmonaot a [facility] - [place], [address] [place] [id number] 0 Phone: () - 12/07 CBC w/ auto diff Augustus % % 43.0 74.0 89.4 High FINAL Tiara Carmonaot a [facility] - [place], [address] [place] [id number] 0 Phone: () - 12/07 CBC w/ auto diff IG % % 0.0 0.5 1.8 High FINAL Tiara Carmonaot [facility] - [place], [address] [place] [id number] 0 Phone: () - 12/07 CBC w/ auto diff IG # K/uL 0.0 0.03 0.30 High FINAL Tiara Carmonaot a [facility] - [place], [address] [place] [id number] 0 Phone: () - 12/07 CBC w/ auto diff LY % % 14.0 41.0 5.2 Low FINAL Tiara Carmonaot a [facility] - [place], [address] [place] [id number] 0 Phone: () - 12/07 CBC w/ auto diff MO % % 6.0 15.0 3.5 Low FINAL Tiara Carmonaot a [facility] - [place], [address] [place] [id number] 0 Phone: () - 12/07 CBC w/ auto diff EO % % 0.0 7.0 0.0 FINAL Tiara Carmonaot a [facility] - [place], [address] [place] [id number] 0 Phone: () - 12/07 CBC w/ auto diff BA % % 0.0 2.0 0.1 FINAL Tiara Carmonaot a [facility] - [place], [address] [place] [id number] 0 Phone: () - 12/07 CBC w/ auto diff LY # K/uL 0.4 3.6 0.9 FINAL Tiara Carmonaot a [facility] [place], [address] [place] [id number] 0 Phone: () - 12/07 CBC w/ auto diff MO # K/uL 0.2 1.3 0.6 FINAL Tiara Carmonaot a [facility] - [place], [address] [place] [id number] 0 Phone: () - 12/07 CBC w/ auto diff EO # K/uL 0.0 0.6 0.0 FINAL Tiara Carmonaot a [facility] - [place], [address] [place] [id number] 0 Phone: () - 12/07 CBC w/ auto diff BA # K/uL 0.0 0.2 0.0 FINAL Tiara Carmonaot a [facility] - [place], [address] [place] [id number] 0 Phone: () - 12/07 CBC w/ auto diff NRBC % #/100W BC 0.0 0.2 0.0 FINAL Tiara Carmonaot [facility] - [place], [address] [place] [id number] 0 Phone: () - 12/07 CBC w/ auto diff RBC M/uL 3.9 5.1 3.37 Low FINAL Tiara Carmonaot a [facility] - [place], [address] [place] [id number] 0 Phone: () - 12/07 CBC w/ auto diff HCT % 35.0 48.0 32.8 Low FINAL Tiara Carmonaot a [facility] - [place], [address] [place] [id number] 0 Phone: () - 12/07 CBC w/ auto diff MCV fL 80.0 104.0 97.3 FINAL Tiara Carmonaot a [facility] - [place], [address] [place] [id number] 0 Phone: () - 12/07 CBC w/ auto diff MCH pg 26.0 35.0 32.3 FINAL Tiara Terrazas a [facility] - [place], [address] [place] [id number] 0 Phone: () - 12/07 CBC w/ auto diff MCHC g/dL 30.0 35.0 33.2 FINAL Tiara Terrazas a [facility] - [place], [address] [place] [id number] 0 Phone: () - 12/07 CBC w/ auto diff MPV fL 9.5 13.4 8.9 Low FINAL Tiara Carmonaot a [facility] - [place], [address] [place] [id number] 0 Phone: () - 12/07 CBC w/ auto diff RDW % 11.4 16.1 12.70 FINAL Tiara [facility] - [place], [address] [place] [id number] 0 Phone: () - 12/12 CBC w/ auto diff WBC K/uL 3.0 8.9 2.0 Low FINAL Nicole [facility] - [place], [address] [place] [id number] 0 Phone: () - 12/12 CBC w/ auto diff HGB g/dL 11.3 15.2 11.2 Low FINAL Nicole Terrazas [facility] [place], [address] [place] [id number] 0 Phone: () - 12/12 CBC w/ auto diff PLT K/uL 113.0 364.0 27 Critica l hematol ogy result obtaine d Criti todd Low FINAL Nicole Terrazas [facility] [place], [address] [place] [id number] 0 Phone: () - 12/12 CBC w/ auto diff Plate let, immat ure, fract ion % 0.9 11.2 7.0 FINAL [facility] [place], [address] [place] [id number] 0 Phone: () - 12/12 CBC w/ auto diff Augustus # (ANC) K/uL 1.6 6.6 1.1 Low FINAL [facility] [place], [address] [place] [id number] 0 Phone: () - 12/12 CBC w/ auto diff Augustus % % 43.0 74.0 56.0 FINAL [facility] [place], [address] [place] [id number] 0 Phone: () - 12/12 CBC w/ auto diff IG % % 0.0 0.5 3.0 High FINAL [facility] [place], [address] [place] [id number] 0 Phone: () - 12/12 CBC w/ auto diff IG # K/uL 0.0 0.03 0.06 High FINAL Nicole Terrazas [facility] - [place], [address] [place] [id number] 0 Phone: () - 12/12 CBC w/ auto diff LY % % 14.0 41.0 35.5 FINAL [facility] [place], [address] [place] [id number] 0 Phone: () - 12/12 CBC w/ auto diff MO % % 6.0 15.0 2.0 Low FINAL Nicole Terrazas a [facility] - [place], [address] [place] [id number] 0 Phone: () - 12/12 CBC w/ auto diff EO % % 0.0 7.0 1.0 FINAL [facility] [place], [address] [place] [id number] 0 Phone: () - 12/12 CBC w/ auto diff BA % % 0.0 2.0 2.5 High FINAL [facility] [place], [address] [place] [id number] 0 Phone: () - 12/12 CBC w/ auto diff LY # K/uL 0.4 3.6 0.7 FINAL [facility] [place], [address] [place] [id number] 0 Phone: () - 12/12 CBC w/ auto diff MO # K/uL 0.2 1.3 0.0 Low FINAL [facility] [place], [address] [place] [id number] 0 Phone: () - 12/12 CBC w/ auto diff EO # K/uL 0.0 0.6 0.0 FINAL [facility] [place], [address] [place] [id number] 0 Phone: () - 12/12 CBC w/ auto diff BA # K/uL 0.0 0.2 0.1 FINAL [facility] [place], [address] [place] [id number] 0 Phone: () - 12/12 CBC w/ auto diff NRBC % #/100W BC 0.0 0.2 1.0 High FINAL Nicole Ya Mathewot a [facility] - [place], [address] [place] [id number] 0 Phone: () - 12/12 CBC w/ auto diff RBC M/uL 3.9 5.1 3.51 Low FINAL Nicole Felton Mathewdamaris a [facility] - [place], [address] [place] [id number] 0 Phone: () - 12/12 CBC w/ auto diff HCT % 35.0 48.0 33.7 Low FINAL Nicole Ya Mathewdamaris muñoz [facility] - [place], [address] [place] [id number] 0 Phone: () - 12/12 CBC w/ auto diff MCV fL 80.0 104.0 96.0 FINAL Nicole Ya Mathewdamaris muñoz [facility] - [place], [address] [place] [id number] 0 Phone: () - 12/12 CBC w/ auto diff MCH pg 26.0 35.0 31.9 FINAL Nicole Ya Mathewdamaris muñoz [facility] - [place], [address] [place] [id number] 0 Phone: () - 12/12 CBC w/ auto diff MCHC g/dL 30.0 35.0 33.2 FINAL Nicole Ya Mathewdamaris muñoz [facility] - [place], [address] [place] [id number] 0 Phone: () - 12/12 CBC w/ auto diff MPV fL 9.5 13.4 11.1 FINAL Nicole Ya Mathewdamaris muñoz [facility] - [place], [address] [place] [id number] 0 Phone: () - 12/12 CBC w/ auto diff RDW % 11.4 16.1 13.00 FINAL [facility] - [place], [address] [place] [id number] 0 Phone: () - 12/12 iSTAT Na+/K +/Cl- panel Sodiu m, iSTAT mmol/L 138.0 146.0 137 Low Reference range adjusted 0 with implement ation of I-Stat 8+ cartridge . FINAL [facility] - [place], [address] [place] [id number] 0 Phone: () - 12/12 iSTAT Na+/K +/Cl- panel Potas sium, iSTAT mmol/L 3.5 4.9 3.9 Reference range adjusted 0 with implement ation of I-Stat 8+ cartridge . FINAL [facility] [place], [address] [place] [id number] 0 Phone: () - 12/12 iSTAT Na+/K +/Cl- panel Chlor rakan, iSTAT mmol/L 98.0 109.0 99 Reference range adjusted 0 with implement ation of I-Stat 8+ cartridge . FINAL [facility] - [place], [address] [place] [id number] 0 Phone: () - 12/27 CBC w/ auto diff WBC K/uL 3.0 8.9 6.3 FINAL Nicole [facility] - [place], [address] [place] [id number] 0 Phone: () - 12/27 CBC w/ auto diff HGB g/dL 11.3 15.2 10.2 Low FINAL Nicole [facility] - [place], [address] [place] [id number] 0 Phone: () - 12/27 CBC w/ auto diff PLT K/uL 113.0 364.0 108 Low FINAL Nicole [facility] - [place], [address] [place] [id number] 0 Phone: () - 12/27 CBC w/ auto diff Augustus # (ANC) K/uL 1.6 6.6 3.8 FINAL Nicole Carmonaot a [facility] - [place], [address] [place] [id number] 0 Phone: () - 12/27 CBC w/ auto diff Augustus % % 43.0 74.0 60.1 FINAL Nicole Carmonaot a [facility] - [place], [address] [place] [id number] 0 Phone: () - 12/27 CBC w/ auto diff IG % % 0.0 0.5 0.6 High FINAL Nicole Carmonaot a [facility] - [place], [address] [place] [id number] 0 Phone: () - 12/27 CBC w/ auto diff IG # K/uL 0.0 0.03 0.04 High FINAL Nicole Carmona a [facility] - [place], [address] [place] [id number] 0 Phone: () - 12/27 CBC w/ auto diff LY % % 14.0 41.0 25.1 FINAL Nicole Carmona a [facility] - [place], [address] [place] [id number] 0 Phone: () - 12/27 CBC w/ auto diff MO % % 6.0 15.0 13.7 FINAL Nicole Carmona a [facility] - [place], [address] [place] [id number] 0 Phone: () - 12/27 CBC w/ auto diff EO % % 0.0 7.0 0.2 FINAL Nicole Carmonaot a [facility] - [place], [address] [place] [id number] 0 Phone: () - 12/27 CBC w/ auto diff BA % % 0.0 2.0 0.3 FINAL Nicole Carm[facility]ot [facility] - [place], [address] [place] [id number] 0 Phone: () - 12/27 CBC w/ auto diff LY # K/uL 0.4 3.6 1.6 FINAL Nicole Carmonaot [facility] - [place], [address] [place] [id number] 0 Phone: () - 12/27 CBC w/ auto diff MO # K/uL 0.2 1.3 0.9 FINAL Nicole Terrazas [facility] - [place], [address] [place] [id number] 0 Phone: () - 12/27 CBC w/ auto diff EO # K/uL 0.0 0.6 0.0 FINAL Nicole Terrazas [facility] - [place], [address] [place] [id number] 0 Phone: () - 12/27 CBC w/ auto diff BA # K/uL 0.0 0.2 0.0 FINAL Nicole Terrazas [facility] - [place], [address] [place] [id number] 0 Phone: () - 12/27 CBC w/ auto diff NRBC % #/100W BC 0.0 0.2 0.0 FINAL Nicole Terrazas [facility] - [place], [address] [place] [id number] 0 Phone: () - 12/27 CBC w/ auto diff RBC M/uL 3.9 5.1 3.18 Low FINAL Nicole Terrazas [facility] - [place], [address] [place] [id number] 0 Phone: () - 12/27 CBC w/ auto diff HCT % 35.0 48.0 32.2 Low FINAL Nicole Carmonaot a [facility] - [place], [address] [place] [id number] 0 Phone: () - 08/10 /2023 CBC w/ auto diff MCV fL 80.0 104.0 101.3 FINAL Nicole [facility] - [place], [address] [place] [id number] 0 Phone: () - 12/27 CBC w/ auto diff MCH pg 26.0 35.0 32.1 FINAL Nicole mu[facility]oz [facility] - [place], [address] [place] [id number] 0 Phone: () - 12/27 CBC w/ auto diff MCHC g/dL 30.0 35.0 31.7 FINAL Nicole mu[facility] - [place], [address] [place] [id number] 0 Phone: () - 12/27 CBC w/ auto diff MPV fL 9.5 13.4 8.8 Low FINAL Nicole [facility] - [place], [address] [place] [id number] 0 Phone: () - 12/27 CBC w/ auto diff RDW % 11.4 16.1 15.80 FINAL Nicole mu[facility]oz [facility] - [place], [address] [place] [id number] 0 Phone: () - 12/27 iSTAT creat inine panel Creat inine , iSTAT mg/dl 0.6 1.3 1.0 FINAL Nicole [facility] - [place], [address] [place] [id number] 0 Phone: () - 12/27 iSTAT creat inine panel GFR estim ate ml/min /1.73m ^2 61.0 GFR is calculate d using the CKD-EPI equation. FINAL [facility] - [place], [address] [place] [id number] 0 Phone: () - 12/27 CMP Album in g/dL 3.2 5.2 3.7 FINAL Nicole Carmonadamaris [facility] [place], [address] [place] [id number] 0 Phone: () - 12/27 CMP Alkal ine phosp hatas e U/L 46.0 116.0 94 FINAL Nicole Terrazas [facility], [address] [facility] 100 [facility] [id number] 0 Phone: () - 12/27 CMP ALT/S GPT U/L 7.0 40.0 33 FINAL Nicole Terrazas [facility], [address] [facility] 100 [facility] [id number] 0 Phone: () - 12/27 CMP AST/S GOT U/L 13.0 40.0 21 FINAL [facility] 100 [facility] [id number] 0 Phone: () - 12/27 CMP BUN mg/dL 9.0 23.0 8.0 Low FINAL [place] [address] [address] [facility] 100 [facility] [id number] 0 Phone: () - 12/27 CMP Calci um mg/dL 8.7 10.4 8.5 Low [facility], [address] [id number] 0 Phone: () - 12/27 CMP Chlor rakan mmol/L 96.0 114.0 114 FINAL [facility] [address] [id number] 0 Phone: () - 12/27 CMP CO2 [...] 96 hour stability window. FINAL Nicole muñoz [facility], [address] [facility] 100 [facility] [id number] 0 Phone: () - 12/27 CMP Creat inine mg/dL 0.5 1.2 0.89 FINAL Nicole muñoz [facility] [address] [id number] 0 Phone: () - 12/27 CMP GFR estim ate ml/min /1.73m ^2 70.1 GFR is calculate d using the CKD-EPI equation. FINAL Nicole muñoz [place] [address] [id number] 0 Phone: () - 12/27 CMP Gluco se mg/dL 73.0 126.0 92 FINAL Nicole muñoz [place] [address] [id number] 0 Phone: () - 12/27 CMP Potas sium mmol/L 3.5 5.1 4.3 FINAL Nicole muñoz [place] [address] [id number] 0 Phone: () - 12/27 CMP Sodiu m mmol/L 136.0 145.0 145 FINAL Nicole muñoz [place] [address] [id number] 0 Phone: () - 12/27 CMP Bilir ubin, total mg/dL 0.3 1.2 0.5 FINAL Nicole muñoz [place] [address] [id number] 0 Phone: () - 12/27 CMP Total prote in g/dL 5.7 8.2 5.5 Low FINAL Nicole muñoz [place] [address] [id number] 0 Phone: () - 01/18 iSTAT creat inine panel Creat inine , iSTAT mg/dl 0.6 1.3 0.8 FINAL [facility], [address] [place] [address] [phone] 0 Phone: () - 01/18 iSTAT creat inine panel GFR estim ate ml/min /1.73m ^2 79.7 GFR is calculate d using the CKD-EPI equation. FINAL Nicole muñoz [facility] [place], [address] [place] [id number] 0 Phone: () - 01/18 CBC w/ auto diff WBC K/uL 3.0 8.9 12.6 High FINAL Nicole Carmoanot a [facility] - [place], [address] [place] [id number] 0 Phone: () - 01/18 CBC w/ auto diff HGB g/dL 11.3 15.2 9.7 Low FINAL Nicole Carmonaot [facility] - [place], [address] [place] [id number] 0 Phone: () - 01/18 CBC w/ auto diff PLT K/uL 113.0 364.0 124 FINAL [facility] [place], [address] [place] [id number] 0 Phone: () - 01/18 CBC w/ auto diff Augustus # (ANC) K/uL 1.6 6.6 10.7 High FINAL [facility] [place], [address] [place] [id number] 0 Phone: () - 01/18 CBC w/ auto diff Augustus % % 43.0 74.0 84.3 High FINAL [facility] [place], [address] [place] [phone] 0 Phone: () - 01/18 CBC w/ auto diff IG % % 0.0 0.5 4.4 High FINAL [facility] [place], [address] [place] [id number] 0 Phone: () - 01/18 CBC w/ auto diff IG # K/uL 0.0 0.03 0.56 High FINAL Nicole [facility] [place], [address] [place] [id number] 0 Phone: () - 01/18 CBC w/ auto diff LY % % 14.0 41.0 8.5 Low FINAL Nicole [facility] [place], [address] [place] [id number] 0 Phone: () - 01/18 CBC w/ auto diff MO % % 6.0 15.0 2.6 Low FINAL Nicole [facility] [place], [address] [place] [id number] 0 Phone: () - 01/18 CBC w/ auto diff EO % % 0.0 7.0 0.0 FINAL Nicole [facility] [place], [address] [place] [id number] 0 Phone: () - 01/18 CBC w/ auto diff BA % % 0.0 2.0 0.2 FINAL Nicole [facility] [place], [address] [place] [id number] 0 Phone: () - 01/18 CBC w/ auto diff LY # K/uL 0.4 3.6 1.1 FINAL Nicole [facility] [place], [address] [place] [id number] 0 Phone: () - 01/18 CBC w/ auto diff MO # K/uL 0.2 1.3 0.3 FINAL Nicole muñ[facility] [place], [address] [place] [id number] 0 Phone: () - 01/18 CBC w/ auto diff EO # K/uL 0.0 0.6 0.0 FINAL Nicole [facility] [place], [address] [place] [id number] 0 Phone: () - 01/18 CBC w/ auto diff BA # K/uL 0.0 0.2 0.0 FINAL Nicole [facility] [place], [address] [place] [id number] 0 Phone: () - 01/18 CBC w/ auto diff NRBC % #/100W BC 0.0 0.2 0.5 High FINAL Nicole Felton [facility] [place], [address] [place] [id number] 0 Phone: () - 01/18 CBC w/ auto diff RBC M/uL 3.9 5.1 2.85 Low FINAL Nicole Felton [facility] [place], [address] [place] [id number] 0 Phone: () - 01/18 CBC w/ auto diff HCT % 35.0 48.0 29.8 Low FINAL Nicole Ya [facility] [place], [address] [place] [id number] 0 Phone: () - 01/18 CBC w/ auto diff MCV fL 80.0 104.0 104.6 High FINAL Nicole Ya [facility] [place], [address] [place] [id number] 0 Phone: () - 01/18 CBC w/ auto diff MCH pg 26.0 35.0 34.0 FINAL Nicole Ya Mathewdamaris [facility] [place], [address] [place] [id number] 0 Phone: () - 01/18 CBC w/ auto diff MCHC g/dL 30.0 35.0 32.6 FINAL Nicole Ya [facility] [place], [address] [place] [id number] 0 Phone: () - 01/18 CBC w/ auto diff MPV fL 9.5 13.4 9.0 Low FINAL Nicole Ya [facility] [place], [address] [place] [id number] 0 Phone: () - 01/18 CBC w/ auto diff RDW % 11.4 16.1 19.00 High FINAL Nicole Ya [facility] [place], [address] [place] [id number] 0 Phone: () - 01/18 CMP Album in g/dL 3.2 5.2 3.7 FINAL [facility], [address] [place] [address] [id number] 0 Phone: () - 01/18 CMP Alkal ine phosp hatas e U/L 46.0 116.0 94 FINAL Nicole [facility] [address] [place] [id number] 0 Phone: () - 01/18 CMP ALT/S GPT U/L 7.0 40.0 33 FINAL [place] [address] [place] [id number] 0 Phone: () - 01/18 CMP AST/S GOT U/L 13.0 40.0 18 FINAL [place] [address] [place] [address] [id number] 0 Phone: () - 01/18 CMP BUN mg/dL 9.0 23.0 10.0 FINAL [place]arius [place] [address] [place] [address] [id number] 0 Phone: () - 01/18 CMP Calci um mg/dL 8.7 10.4 9.0 FINAL [facility] [place] [address] [place] [address] [id number] 0 Phone: () - 01/18 CMP Chlor rakan mmol/L 96.0 114.0 108 FINAL Nicole [facility] [address] [id number] 0 Phone: () - 01/18 CMP CO2 [...] 96 hour stability window. FINAL [facility], [address] [id number] 0 Phone: () - 01/18 CMP Creat inine mg/dL 0.5 1.2 0.80 FINAL Nicole Terrazas [place] [address] [id number] 0 Phone: () - 01/18 CMP GFR estim ate ml/min /1.73m ^2 79.7 GFR is calculate d using the CKD-EPI equation. FINAL Nicole muñoz [place] [address] [id number] 0 Phone: () - 01/18 CMP Gluco se mg/dL 73.0 126.0 156 High FINAL Nicole Terrazas [place] [address] [id number] 0 Phone: () - 01/18 CMP Potas sium mmol/L 3.5 5.1 4.7 FINAL Nicole Terrazas [place] [address] [id number] 0 Phone: () - 01/18 CMP Sodiu m mmol/L 136.0 145.0 145 FINAL Nicole muñoz [place] [address] [id number] 0 Phone: () - 01/18 CMP Bilir ubin, total mg/dL 0.3 1.2 0.5 FINAL Nicole Terrazas [place] [address] [id number] 0 Phone: () - 01/18 CMP Total prote in g/dL 5.7 8.2 5.6 Low FINAL Nicole Terrazas [place] [address] [id number] 0 Phone: () - 01/29 iSTAT Na+/K +/Cl- panel Sodiu m, iSTAT mmol/L 138.0 146.0 134 Low Reference range adjusted 0 with implement ation of I-Stat 8+ cartridge . FINAL Nicole muñoz [facility], [address] [place] [id number] 0 Phone: () - 01/29 iSTAT Na+/K +/Cl- panel Potas sium, iSTAT mmol/L 3.5 4.9 3.4 Low Reference range adjusted 0 with implement ation of I-Stat 8+ cartridge . FINAL Nicole Ya [facility] [place], [address] [place] [id number] 0 Phone: () - 01/29 iSTAT Na+/K +/Cl- panel Chlor rakan, iSTAT mmol/L 98.0 109.0 97 Low Reference range adjusted 0 with implement ation of I-Stat 8+ cartridge . FINAL Nicole [facility] [place], [address] [place] [id number] 0 Phone: () - 01/29 CBC w/ auto diff WBC K/uL 3.0 8.9 19.0 High FINAL Nicole Ya Mathewdamaris [facility] [place], [address] [place] [id number] 0 Phone: () - 01/29 CBC w/ auto diff HGB g/dL 11.3 15.2 8.8 Low FINAL Nicole Ya Mathewdamaris [facility] [place], [address] [place] [id number] 0 Phone: () - 01/29 CBC w/ auto diff PLT K/uL 113.0 364.0 59 Low FINAL Nicole Ya [facility] [place], [address] [place] [id number] 0 Phone: () - 01/29 CBC w/ auto diff Augustus # (ANC) K/uL 1.6 6.6 16.7 High FINAL Nicole Ya [facility] [place], [address] [place] [id number] 0 Phone: () - 01/29 CBC w/ auto diff Augustus % % 43.0 74.0 88.0 High FINAL Nicole [facility] [place], [address] [place] [id number] 0 Phone: () - 01/29 CBC w/ auto diff IG % % 0.0 0.5 1.9 High FINAL Nicole [facility] [place], [address] [place] [id number] 0 Phone: () - 01/29 CBC w/ auto diff IG # K/uL 0.0 0.03 0.36 High FINAL Nicole [facility] [place], [address] [place] [id number] 0 Phone: () - 01/29 CBC w/ auto diff LY % % 14.0 41.0 5.1 Low FINAL Nicole [facility] [place], [address] [place] [id number] 0 Phone: () - 01/29 CBC w/ auto diff MO % % 6.0 15.0 4.8 Low FINAL Nicole [facility] [place], [address] [place] [id number] 0 Phone: () - 01/29 CBC w/ auto diff EO % % 0.0 7.0 0.0 FINAL Nicole [facility] [place], [address] [place] [id number] 0 Phone: () - 01/29 CBC w/ auto diff BA % % 0.0 2.0 0.2 FINAL Nicole [facility] [place], [address] [place] [id number] 0 Phone: () - 01/29 CBC w/ auto diff LY # K/uL 0.4 3.6 1.0 FINAL Nicole [facility] [place], [address] [place] [id number] 0 Phone: () - 01/29 CBC w/ auto diff MO # K/uL 0.2 1.3 0.9 FINAL Nicole [facility] [place], [address] [place] [id number] 0 Phone: () - 01/29 CBC w/ auto diff EO # K/uL 0.0 0.6 0.0 FINAL Nicole [facility] [place], [address] [place] [id number] 0 Phone: () - 01/29 CBC w/ auto diff BA # K/uL 0.0 0.2 0.0 FINAL Nicole [facility] [place], [address] [place] [id number] 0 Phone: () - 01/29 CBC w/ auto diff NRBC % #/100W BC 0.0 0.2 0.0 FINAL Nicole [facility] [place], [address] [place] [id number] 0 Phone: () - 01/29 CBC w/ auto diff RBC M/uL 3.9 5.1 2.58 Low FINAL Nicole [facility] [place], [address] [place] [id number] 0 Phone: () - 01/29 CBC w/ auto diff HCT % 35.0 48.0 27.0 Low FINAL Nicole [facility] [place], [address] [place] [id number] 0 Phone: () - 01/29 CBC w/ auto diff MCV fL 80.0 104.0 104.7 High FINAL Nicole [facility] [place], [address] [place] [id number] 0 Phone: () - 01/29 CBC w/ auto diff MCH pg 26.0 35.0 34.1 FINAL Nicole [facility] [place], [address] [place] [id number] 0 Phone: () - 01/29 CBC w/ auto diff MCHC g/dL 30.0 35.0 32.6 FINAL Nicole Ya Nini [facility] [place], [address] [place] [id number] 0 Phone: () - 01/29 CBC w/ auto diff MPV fL 9.5 13.4 9.3 Low FINAL Nicole Ya Nini [facility] [place], [address] [place] [id number] 0 Phone: () - 01/29 CBC w/ auto diff RDW % 11.4 16.1 17.80 High FINAL Nicole Ya Mathewdamaris [facility] [place], [address] [place] [id number] 0 Phone: () - 02/05 CBC w/ auto diff BA # K/uL 0.0 0.2 0.0 FINAL Nicole Ya [facility]wdamaris [facility] [place], [address] [place] [id number] 0 Phone: () - 02/05 CBC w/ auto diff NRBC % #/100W BC 0.0 0.2 0.1 FINAL Nicole Ya [facility] [place], [address] [place] [id number] 0 Phone: () - 02/05 CBC w/ auto diff RBC M/uL 3.9 5.1 2.96 Low FINAL Nicole Ya [facility] [place], [address] [place] [id number] 0 Phone: () - 02/05 CBC w/ auto diff HCT % 35.0 48.0 30.3 Low FINAL Nicole Ya [facility]aris [facility] [place], [address] [place] [id number] 0 Phone: () - 02/05 CBC w/ auto diff MCV fL 80.0 104.0 102.4 FINAL Nicole Ya [facility]wdamaris [facility] [place], [address] [place] [id number] 0 Phone: () - 02/05 CBC w/ auto diff MCH pg 26.0 35.0 33.8 FINAL Nicole Felton [facility] [place], [address] [place] [id number] 0 Phone: () - 02/05 CBC w/ auto diff MCHC g/dL 30.0 35.0 33.0 FINAL Nicole Ya [facility] [place], [address] [place] [id number] 0 Phone: () - 02/05 CBC w/ auto diff MPV fL 9.5 13.4 8.5 Low FINAL Nicole Ya [facility]aris [facility] [place], [address] [place] [id number] 0 Phone: () - 02/05 CBC w/ auto diff RDW % 11.4 16.1 16.10 FINAL Nicole [facility] [place], [address] [place] [id number] 0 Phone: () - 02/05 CBC w/ auto diff WBC K/uL 3.0 8.9 16.6 High FINAL Nicole [facility] [place], [address] [place] [id number] 0 Phone: () - 02/05 CBC w/ auto diff HGB g/dL 11.3 15.2 10.0 Low FINAL Nicole Ya Mathewdamaris [facility] [place], [address] [place] [id number] 0 Phone: () - 02/05 CBC w/ auto diff PLT K/uL 113.0 364.0 122 FINAL Nicole Ya Mathewdamaris [facility] [place], [address] [place] [id number] 0 Phone: () - 02/05 CBC w/ auto diff Augustus # (ANC) K/uL 1.6 6.6 12.9 High FINAL Nicole [facility] [place], [address] [place] [id number] 0 Phone: () - 02/05 CBC w/ auto diff Augustus % % 43.0 74.0 77.5 High FINAL Nicole [facility] [place], [address] [place] [id number] 0 Phone: () - 02/05 CBC w/ auto diff IG % % 0.0 0.5 1.1 High FINAL Nicole [facility] [place], [address] [place] [id number] 0 Phone: () - 02/05 CBC w/ auto diff IG # K/uL 0.0 0.03 0.19 High FINAL Nicole [facility] [place], [address] [place] [id number] 0 Phone: () - 02/05 CBC w/ auto diff LY % % 14.0 41.0 11.4 Low FINAL Nicole [facility] [place], [address] [place] [id number] 0 Phone: () - 02/05 CBC w/ auto diff MO % % 6.0 15.0 9.9 FINAL Nicole [facility] [place], [address] [place] [id number] 0 Phone: () - 02/05 CBC w/ auto diff EO % % 0.0 7.0 0.0 FINAL Nicole [facility] [place], [address] [place] [id number] 0 Phone: () - 02/05 CBC w/ auto diff BA % % 0.0 2.0 0.1 FINAL Nicole [facility] [place], [address] [place] [id number] 0 Phone: () - 02/05 CBC w/ auto diff LY # K/uL 0.4 3.6 1.9 FINAL Nicole [facility] [place], [address] [place] [id number] 0 Phone: () - 02/05 CBC w/ auto diff MO # K/uL 0.2 1.3 1.6 High FINAL Nicole [facility] [place], [address] [place] [id number] 0 Phone: () - 02/05 CBC w/ auto diff EO # K/uL 0.0 0.6 0.0 FINAL Nicole mu[facility] [place], [address] [place] [id number] 0 Phone: () - 02/05 iSTAT Na+/K +/Cl- panel Sodiu m, iSTAT mmol/L 138.0 146.0 134 Low Reference range adjusted 0 with implement ation of I-Stat 8+ cartridge . FINAL Nicole mu[facility] [place], [address] [place] [id number] 0 Phone: () - 02/05 iSTAT Na+/K +/Cl- panel Potas sium, iSTAT mmol/L 3.5 4.9 3.1 Low Reference range adjusted 0 with implement ation of I-Stat 8+ cartridge . FINAL Nicole [facility] [place], [address] [place] [id number] 0 Phone: () - 02/05 iSTAT Na+/K +/Cl- panel Chlor rakan, iSTAT mmol/L 98.0 109.0 95 Low Reference range adjusted 0 with implement ation of I-Stat 8+ cartridge . FINAL Nicole [facility] [place], [address] [place] [id number] 0 Phone: () - 02/05 iSTAT creat inine panel Creat inine , iSTAT mg/dl 0.6 1.3 0.8 FINAL Tiara mu[facility] [place], [address] [facility] [facility] [address] [place] [id number] 0 Phone: () - 02/05 iSTAT creat inine panel GFR estim ate ml/min /1.73m ^2 79.7 GFR is calculate d using the CKD-EPI equation. FINAL Tiara mu[facility] [place], [address] [facility] [place] [id number] 0 Phone: () - 02/05 Magne sium, mg/dL mg/dL 1.5 2.3 1.4 Low FINAL Tiara mu[facility], [address] [facility] [address] [place] [id number] 0 Phone: () - 02/07 Magne sium, mg/dL mg/dL 1.5 2.3 1.5 FINAL Tiara [facility], [address] [facility] [address] [place] [id number] 0 Phone: () - 02/07 iSTAT creat inine panel Creat inine , iSTAT mg/dl 0.6 1.3 1.0 FINAL Tiara mu[facility] [place], [address] [facility] [place] [id number] 0 Phone: () - 02/07 iSTAT creat inine panel GFR estim ate ml/min /1.73m ^2 61.0 GFR is calculate d using the CKD-EPI equation. FINAL Tiara mu[facility]oz [facility] [place], [address] [facility] [place] [id number] 0 Phone: () - 02/07 iSTAT Na+/K +/Cl- panel Sodiu m, iSTAT mmol/L 138.0 146.0 137 Low Reference range adjusted 0 with implement ation of I-Stat 8+ cartridge . FINAL Tiara mu[facility]oz [facility] [place], [address] [facility] [address] [place] [id number] 0 Phone: () - 02/07 iSTAT Na+/K +/Cl- panel Potas sium, iSTAT mmol/L 3.5 4.9 3.2 Low Reference range adjusted 0 with implement ation of I-Stat 8+ cartridge . FINAL Tiara [facility] [place], [address] [place] [id number] 0 Phone: () - 02/07 iSTAT Na+/K +/Cl- panel Chlor rakan, iSTAT mmol/L 98.0 109.0 100 Reference range adjusted 0 with implement ation of I-Stat 8+ cartridge . FINAL Tiara [facility] [place], [address] [place] [id number] 0 Phone: () - 02/08 Clost ridiu [...] been establish ed.This assay was performed by [employer] (R) PCR.The performan ce character istics of this assay havebeen determine d by mFoundryti cs. Performan cecharact eristics refer to the analytica l performan ceof the test.For additiona l informati on, please refer tohttp:// education .Mesh [place]/faq/F AQ136(Thi s link is being provided forinform ational/e ducationa l purposes only.)[CA ] FINAL Tiara Coronado [employer] [facility] [place] [address] [facility] [id number] 4 02/08 Clost ridiu m diffi cile toxin PCR panel CLOST RIDIU M DIFFI CILE TOXIN /GDH W/REF L TO PCR SEE NOTE CLOSTRIDI UM DIFFICILE TOXIN/GDH W/REFL TO PCRMicro Number: [id number] est Status: FinalSpec imen Source: StoolSpec imen Quality: AdequateG DH Antigen: DetectedT oxin A and B: Not DetectedC OMMENT: Indetermi vikram. Specimen forwarded [facility] cesar C. difficile PCR testing.F or additiona l informati on, please refer tohttp:// education .Mesh [place]/faq/F AQ136(Thi s link is being provided forinform ational/e ducationa l purposes only.)[CB ] FINAL Tiara NEGRETE, [facility] [address] [facility] [id number] 4 02/08 iSTAT creat inine panel Creat inine , iSTAT mg/dl 0.6 1.3 0.8 FINAL Nicole Ya Mathewdamaris [facility] [place], [address] [facility] [place] [id number] 0 Phone: () - 02/08 iSTAT creat inine panel GFR estim ate ml/min /1.73m ^2 79.7 GFR is calculate d using the CKD-EPI equation. FINAL Nicole Ya Mathewdamaris [facility] [place], [address] [facility] [place] [id number] 0 Phone: () - 02/08 CMP Album in g/dL 3.2 5.2 3.2 FINAL Nicole Ya [facility] [place], [address] [place] [id number] 0 Phone: () - 02/08 CMP Alkal ine phosp hatas e U/L 46.0 116.0 85 FINAL Nicole Ya [facility] [place], [address] [place] [id number] 0 Phone: () - 02/08 CMP ALT/S GPT U/L 7.0 40.0 24 FINAL Nicole muñoz [place] [address] [id number] 0 Phone: () - 02/08 CMP AST/S GOT U/L 13.0 40.0 16 FINAL Nicole muñoz [facility] [address] [id number] 0 Phone: () - 02/08 CMP BUN mg/dL 9.0 23.0 8.0 Low FINAL Nicole muñoz [place] [address] [id number] 0 Phone: () - 02/08 CMP Calci um mg/dL 8.7 10.4 8.3 Low FINAL Nicole muñoz [place] [address] [id number] 0 Phone: () - 02/08 CMP Chlor rakan mmol/L 96.0 114.0 111 FINAL Nicole [place] [address] [id number] 0 Phone: () - 02/08 CMP CO2 [...] 96 hour stability window. FINAL Nicole muñoz [place] [address] [id number] 0 Phone: () - 02/08 CMP Creat inine mg/dL 0.5 1.2 0.86 FINAL Nicole [place] [address] [id number] 0 Phone: () - 02/08 CMP GFR estim ate ml/min /1.73m ^2 73.0 GFR is calculate d using the CKD-EPI equation. FINAL Nicole Terrazas [place] [address] [id number] 0 Phone: () - 02/08 CMP Gluco se mg/dL 73.0 126.0 129 High FINAL Nicole muñoz [facility], [address] [facility] [id number] 0 Phone: () - 02/08 CMP Potas sium mmol/L 3.5 5.1 3.6 FINAL Nicole muñoz [facility], [address] [facility] [id number] 0 Phone: () - 02/08 CMP Sodiu m mmol/L 136.0 145.0 144 FINAL Nicole muñoz [facility], [address] [facility] [id number] 0 Phone: () - 02/08 CMP Bilir ubin, total mg/dL 0.3 1.2 0.3 FINAL Nicole muñoz [facility], [address] [facility] [id number] 0 Phone: () - 02/08 CMP Total prote in g/dL 5.7 8.2 4.8 Low FINAL Nicole muñoz [facility], [address] [facility] [id number] 0 Phone: () - 02/08 CBC w/ auto diff WBC K/uL 3.0 8.9 17.2 High FINAL Nicole muñoz [facility] [place], [address] [facility] [address] [place] [id number] 0 Phone: () - 02/08 CBC w/ auto diff HGB g/dL 11.3 15.2 7.9 Critica l hematol ogy result obtaine d Criti todd Low FINAL Nicole muñoz [facility] [place], [address] [place] [id number] 0 Phone: () - 02/08 CBC w/ auto diff PLT K/uL 113.0 364.0 123 FINAL Nicole muñoz [facility] - [place], [address] [facility] [address] [place] [id number] 0 Phone: () - 02/08 CBC w/ auto diff Augustus # (ANC) K/uL 1.6 6.6 13.8 High FINAL Nicole [facility] [place], [address] [place] [id number] 0 Phone: () - 02/08 CBC w/ auto diff Augustus % % 43.0 74.0 80.0 High FINAL Nicole [facility] [place], [address] [place] [id number] 0 Phone: () - 02/08 CBC w/ auto diff IG % % 0.0 0.5 2.2 High FINAL Nicole [facility] [place], [address] [place] [id number] 0 Phone: () - 02/08 CBC w/ auto diff IG # K/uL 0.0 0.03 0.38 High FINAL Nicole [facility] [place], [address] [place] [id number] 0 Phone: () - 02/08 CBC w/ auto diff LY % % 14.0 41.0 9.3 Low FINAL Nicole [facility] [place], [address] [place] [id number] 0 Phone: () - 02/08 CBC w/ auto diff MO % % 6.0 15.0 8.4 FINAL Nicole [facility] [place], [address] [place] [id number] 0 Phone: () - 02/08 CBC w/ auto diff EO % % 0.0 7.0 0.0 FINAL Nicole [facility] [place], [address] [place] [id number] 0 Phone: () - 02/08 CBC w/ auto diff BA % % 0.0 2.0 0.1 FINAL Nicole [facility] [place], [address] [place] [id number] 0 Phone: () - 02/08 CBC w/ auto diff LY # K/uL 0.4 3.6 1.6 FINAL Nicole [facility] [place], [address] [place] [id number] 0 Phone: () - 02/08 CBC w/ auto diff MO # K/uL 0.2 1.3 1.5 High FINAL Nicole [facility] [place], [address] [place] [id number] 0 Phone: () - 02/08 CBC w/ auto diff EO # K/uL 0.0 0.6 0.0 FINAL Nicole Terrazas [facility] [place], [address] [place] [id number] 0 Phone: () - 02/08 CBC w/ auto diff BA # K/uL 0.0 0.2 0.0 FINAL Nicole muñoz [facility] - [place], [address] [place] [id number] 0 Phone: () - 02/08 CBC w/ auto diff NRBC % #/100W BC 0.0 0.2 0.3 High FINAL Nicole muñoz [facility] - [place], [address] [place] [id number] 0 Phone: () - 02/08 CBC w/ auto diff RBC M/uL 3.9 5.1 2.33 Low FINAL Nicole muñoz [facility] - [place], [address] [place] [id number] 0 Phone: () - 02/08 CBC w/ auto diff HCT % 35.0 48.0 24.6 Low FINAL Nicole muñoz [facility] - [place], [address] [place] [id number] 0 Phone: () - 02/08 CBC w/ auto diff MCV fL 80.0 104.0 105.6 High FINAL Nicole [facility] [place], [address] [place] [id number] 0 Phone: () - 02/08 CBC w/ auto diff MCH pg 26.0 35.0 33.9 FINAL Nicole [facility] [place], [address] [place] [id number] 0 Phone: () - 02/08 CBC w/ auto diff MCHC g/dL 30.0 35.0 32.1 FINAL Nicole mu[facility] - [place], [address] [facility] [address] [place] [id number] 0 Phone: () - 02/08 CBC w/ auto diff MPV fL 9.5 13.4 9.1 Low FINAL Nicole muñoz [facility] - [place], [address] [address] [place] [id number] 0 Phone: () - 02/08 CBC w/ auto diff RDW % 11.4 16.1 16.70 High FINAL Nicole Ya Nini [facility] - [place], [address] [facility] [address] [place] [id number] 0 Phone: () - 02/12 iSTAT Na+/K +/Cl- panel Sodiu m, iSTAT mmol/L 138.0 146.0 139 Reference range adjusted 0 with implement ation of I-Stat 8+ cartridge . FINAL Nicole Ya Nini [facility] - [place], [address] [address] [place] [id number] 0 Phone: () - 02/12 iSTAT Na+/K +/Cl- panel Potas sium, iSTAT mmol/L 3.5 4.9 3.8 Reference range adjusted 0 with implement ation of I-Stat 8+ cartridge . FINAL Nicole Ya Nini [facility] - [place], [address] [place] [id number] 0 Phone: () - 02/12 iSTAT Na+/K +/Cl- panel Chlor rakan, iSTAT mmol/L 98.0 109.0 100 Reference range adjusted 0 with implement ation of I-Stat 8+ cartridge . FINAL Nicole Carmonadamaris a [facility] - [place], [address] [place] [id number] 0 Phone: () - 02/12 Evelyn sium, mg/dL mg/dL 1.5 2.3 1.5 FINAL Nicole Ya Mathewdamaris a [facility] - [place], [address] [place] [id number] 0 Phone: () - 02/12 CBC w/ auto diff WBC K/uL 3.0 8.9 9.0 High FINAL Nicole Ya Mathewot a [facility] - [place], [address] [place] [id number] 0 Phone: () - 02/12 CBC w/ auto diff HGB g/dL 11.3 15.2 8.7 Low FINAL Nicole Ya Mathewdamaris a [facility] - [place], [address] [place] [id number] 0 Phone: () - 02/12 CBC w/ auto diff PLT K/uL 113.0 364.0 154 FINAL Nicole Ya Mathewdamaris [facility] - [place], [address] [place] [id number] 0 Phone: () - 02/12 CBC w/ auto diff Augustus # (ANC) K/uL 1.6 6.6 6.5 FINAL Nicole Ya Mathewdamaris a [facility] - [place], [address] [place] [id number] 0 Phone: () - 02/12 CBC w/ auto diff Augustus % % 43.0 74.0 72.4 FINAL Nicole Carmonadamaris a [facility] - [place], [address] [place] [id number] 0 Phone: () - 02/12 CBC w/ auto diff IG % % 0.0 0.5 0.9 High FINAL Nicole Ya Mathewot a [facility] - [place], [address] [place] [id number] 0 Phone: () - 02/12 CBC w/ auto diff IG # K/uL 0.0 0.03 0.08 High FINAL Nicole muñoz [facility] - [place], [address] [place] [id number] 0 Phone: () - 02/12 CBC w/ auto diff LY % % 14.0 41.0 17.0 FINAL Nicole muñoz [facility] - [place], [address] [place] [id number] 0 Phone: () - 02/12 CBC w/ auto diff MO % % 6.0 15.0 9.4 FINAL Nicole muñoz [facility] - [place], [address] [place] [id number] 0 Phone: () - 02/12 CBC w/ auto diff EO % % 0.0 7.0 0.3 FINAL Nicole muñoz [facility] - [place], [address] [place] [id number] 0 Phone: () - 02/12 CBC w/ auto diff BA % % 0.0 2.0 0.0 FINAL Nicole muñoz [facility] - [place], [address] [place] [id number] 0 Phone: () - 02/12 CBC w/ auto diff LY # K/uL 0.4 3.6 1.5 FINAL Nicole muñoz [facility] - [place], [address] [place] [id number] 0 Phone: () - 02/12 CBC w/ auto diff MO # K/uL 0.2 1.3 0.8 FINAL Nicole muñoz [facility] - [place], [address] [place] [id number] 0 Phone: () - 02/12 CBC w/ auto diff EO # K/uL 0.0 0.6 0.0 FINAL Nicole muñoz [facility] - [place], [address] [place] [id number] 0 Phone: () - 02/12 CBC w/ auto diff BA # K/uL 0.0 0.2 0.0 FINAL Nicole Ya Mathewot a [facility] - [place], [address] [place] [id number] 0 Phone: () - 02/12 CBC w/ auto diff NRBC % #/100W BC 0.0 0.2 0.0 FINAL Nicole Ya Mathewot a [facility] - [place], [address] [place] [id number] 0 Phone: () - 02/12 CBC w/ auto diff RBC M/uL 3.9 5.1 2.54 Low FINAL Nicole aY Mathewot a [facility] - [place], [address] [place] [id number] 0 Phone: () - 02/12 CBC w/ auto diff HCT % 35.0 48.0 27.5 Low FINAL Nicole Ya Mathewdamaris a [facility] - [place], [address] [place] [id number] 0 Phone: () - 02/12 CBC w/ auto diff MCV fL 80.0 104.0 108.3 High FINAL Nicole Ya Mathewot a [facility] - [place], [address] [place] [id number] 0 Phone: () - 02/12 CBC w/ auto diff MCH pg 26.0 35.0 34.3 FINAL Nicole Felton Mathewot a [facility] - [place], [address] [place] [id number] 0 Phone: () - 02/12 CBC w/ auto diff MCHC g/dL 30.0 35.0 31.6 FINAL Nicole Ya Mathewot a [facility] - [place], [address] [place] [id number] 0 Phone: () - 02/12 CBC w/ auto diff MPV fL 9.5 13.4 8.3 Low FINAL Nicole Terrazas a [facility] - [place], [address] [place] [id number] 0 Phone: () - 02/12 CBC w/ auto diff RDW % 11.4 16.1 17.40 High FINAL Nicole Terrazas a [facility] - [place], [address] [place] [id number] 0 Phone: () - 03/01 CBC w/ auto diff WBC K/uL 3.0 8.9 4.5 FINAL Nicole Terrazas a [facility] - [place], [address] [place] [id number] 0 Phone: () - 03/01 CBC w/ auto diff HGB g/dL 11.3 15.2 8.8 Low FINAL Nicole Terrazas a [facility] - [place], [address] [place] [id number] 0 Phone: () - 03/01 CBC w/ auto diff PLT K/uL 113.0 364.0 154 FINAL Nicole muñoz [facility] - [place], [address] [place] [id number] 0 Phone: () - 03/01 CBC w/ auto diff Augustus # (ANC) K/uL 1.6 6.6 2.2 FINAL Nicole muñoz [facility] - [place], [address] [place] [id number] 0 Phone: () - 03/01 CBC w/ auto diff Augustus % % 43.0 74.0 49.9 FINAL Nicole mu[facility] - [place], [address] [place] [id number] 0 Phone: () - 03/01 CBC w/ auto diff IG % % 0.0 0.5 0.7 High FINAL Nicole Carmonaot a [facility] - [place], [address] [place] [id number] 0 Phone: () - 03/01 CBC w/ auto diff IG # K/uL 0.0 0.03 0.03 FINAL Nicole Carmonaot a [facility] - [place], [address] [place] [id number] 0 Phone: () - 03/01 CBC w/ auto diff LY % % 14.0 41.0 32.0 FINAL Nicole Carmonaot a [facility] - [place], [address] [place] [id number] 0 Phone: () - 03/01 CBC w/ auto diff MO % % 6.0 15.0 14.5 FINAL Nicole Carmonaot a [facility] - [place], [address] [place] [id number] 0 Phone: () - 03/01 CBC w/ auto diff EO % % 0.0 7.0 2.5 FINAL Nicole Carmonaot a [facility] - [place], [address] [place] [id number] 0 Phone: () - 03/01 CBC w/ auto diff BA % % 0.0 2.0 0.4 FINAL Nicole Carmonaot a [facility] - [place], [address] [place] [id number] 0 Phone: () - 03/01 CBC w/ auto diff LY # K/uL 0.4 3.6 1.4 FINAL Nicole Carmonaot a [facility] - [place], [address] [place] [id number] 0 Phone: () - 03/01 CBC w/ auto diff MO # K/uL 0.2 1.3 0.7 FINAL Nicole Carmonaot a [facility] - [place], [address] [place] [id number] 0 Phone: () - 03/01 CBC w/ auto diff EO # K/uL 0.0 0.6 0.1 FINAL Nicole Carmonaot a [facility] - [place], [address] [place] [id number] 0 Phone: () - 03/01 CBC w/ auto diff BA # K/uL 0.0 0.2 0.0 FINAL Nicole Ya Nini a [facility] - [place], [address] [place] [id number] 0 Phone: () - 03/01 CBC w/ auto diff NRBC % #/100W BC 0.0 0.2 0.0 FINAL Nicole Ya Nini [facility] - [place], [address] [place] [id number] 0 Phone: () - 03/01 CBC w/ auto diff RBC M/uL 3.9 5.1 2.57 Low FINAL Nicole Felton Mathewdamaris [facility] - [place], [address] [place] [id number] 0 Phone: () - 03/01 CBC w/ auto diff HCT % 35.0 48.0 28.5 Low FINAL Nicole Ya Mathewdamaris toni [facility] - [place], [address] [place] [id number] 0 Phone: () - 03/01 CBC w/ auto diff MCV fL 80.0 104.0 110.9 High FINAL Nicole Felton Nini mu[facility] - [place], [address] [place] [id number] 0 Phone: () - 03/01 CBC w/ auto diff MCH pg 26.0 35.0 34.2 FINAL Nicole Felton Mathewdamaris toni [facility] - [place], [address] [place] [id number] 0 Phone: () - 03/01 CBC w/ auto diff MCHC g/dL 30.0 35.0 30.9 FINAL Nicole Ya Nini mu[facility]oz [facility] - [place], [address] [place] [id number] 0 Phone: () - 03/01 CBC w/ auto diff MPV fL 9.5 13.4 8.2 Low FINAL Nicole Ya Mathewdamaris [facility] - [place], [address] [place] [id number] 0 Phone: () - 03/01 CBC w/ auto diff RDW % 11.4 16.1 15.70 FINAL Nicole muñoz Oncology [facility], [address] [facility] [id number] 0 Phone: () - 03/01 CMP Album in g/dL 3.2 5.2 3.4 FINAL Nicole muñoz [facility], [address] [place] [address] [id number] 0 Phone: () - 03/01 CMP Alkal ine phosp hatas e U/L 46.0 116.0 89 FINAL Nicole muñoz [place] [address] [address] [facility] [address] [place] [address] [id number] 0 Phone: () - 03/01 CMP ALT/S GPT U/L 7.0 40.0 15 FINAL Nicole muñoz [place] [address] [place] [address] [id number] 0 Phone: () - 03/01 CMP AST/S GOT U/L 13.0 40.0 18 FINAL Nicole muñoz [place] [address] [place] [address] [id number] 0 Phone: () - 03/01 CMP BUN mg/dL 9.0 23.0 9.0 FINAL Nicole muñoz [place] [address] [id number] 0 Phone: () - 03/01 CMP Calci um mg/dL 8.7 10.4 8.5 Low FINAL Nicole muñoz [facility], [facility] [address] [place] [address] [id number] 0 Phone: () - 03/01 CMP Chlor rakan mmol/L 96.0 114.0 113 FINAL Nicole muñoz [facility], [facility] [address] [id number] 0 Phone: () - 03/01 CMP CO2 [...] 96 hour stability window. FINAL Nicole muñoz [place] [address] [id number] 0 Phone: () - 03/01 CMP Creat inine mg/dL 0.5 1.2 0.98 FINAL Nicole muñoz [address] [id number] 0 Phone: () - 03/01 CMP GFR estim ate ml/min /1.73m ^2 62.4 GFR is calculate d using the CKD-EPI equation. FINAL Nicole Terrazas [address] [id number] 0 Phone: () - 03/01 CMP Gluco se mg/dL 73.0 126.0 136 High FINAL Nicole muñoz [address] [id number] 0 Phone: () - 03/01 CMP Potas sium mmol/L 3.5 5.1 4.3 FINAL Nicole Terrazas [address] [id number] 0 Phone: () - 03/01 CMP Sodiu m mmol/L 136.0 145.0 147 High FINAL Nicole muñoz [address] [id number] 0 Phone: () - 03/01 CMP Bilir ubin, total mg/dL 0.3 1.2 0.5 FINAL Nicole Terrazas [address] [id number] 0 Phone: () - 03/01 CMP Total prote in g/dL 5.7 8.2 5.2 Low FINAL Nicole Terrazas [address] [id number] 0 Phone: () - 04/12 CBC w/ auto diff WBC K/uL 3.0 8.9 5.3 FINAL Nicole Carmonaot a [facility] - [place], [address] [place] [id number] 0 Phone: () - 04/12 CBC w/ auto diff HGB g/dL 11.3 15.2 9.4 Low FINAL Nicole Carmonaot a [facility] - [place], [address] [place] [id number] 0 Phone: () - 04/12 CBC w/ auto diff PLT K/uL 113.0 364.0 167 FINAL Nicole Carmonaot a [facility] - [place], [address] [place] [id number] 0 Phone: () - 04/12 CBC w/ auto diff Augustus # (ANC) K/uL 1.6 6.6 3.0 FINAL Nicole Carmonaot a [facility] - [place], [address] [place] [id number] 0 Phone: () - 04/12 CBC w/ auto diff Augustus % % 43.0 74.0 57.5 FINAL Nicole Carmonaot a [facility] - [place], [address] [place] [id number] 0 Phone: () - 04/12 CBC w/ auto diff IG % % 0.0 0.5 0.4 FINAL Nicole Carmonaot a [facility] - [place], [address] [place] [id number] 0 Phone: () - 04/12 CBC w/ auto diff IG # K/uL 0.0 0.03 0.02 FINAL Nicole Carmonaot a [facility] - [place], [address] [place] [id number] 0 Phone: () - 04/12 CBC w/ auto diff LY % % 14.0 41.0 28.6 FINAL Nicole Carmonaot a [facility] - [place], [address] [place] [id number] 0 Phone: () - 04/12 CBC w/ auto diff MO % % 6.0 15.0 11.6 FINAL Nicole muñoz [facility] - [place], [address] [place] [id number] 0 Phone: () - 04/12 CBC w/ auto diff EO % % 0.0 7.0 1.5 FINAL Nicole Terrazas a [facility] - [place], [address] [place] [id number] 0 Phone: () - 04/12 CBC w/ auto diff BA % % 0.0 2.0 0.4 FINAL Nicole Ya Nini mu[facility] - [place], [address] [place] [id number] 0 Phone: () - 04/12 CBC w/ auto diff LY # K/uL 0.4 3.6 1.5 FINAL Nicole Felton Nini muñoz [facility] - [place], [address] [place] [id number] 0 Phone: () - 04/12 CBC w/ auto diff MO # K/uL 0.2 1.3 0.6 FINAL Nicole Ya Nini [facility] - [place], [address] [place] [id number] 0 Phone: () - 04/12 CBC w/ auto diff EO # K/uL 0.0 0.6 0.1 FINAL Nicole Ya Nini mu[facility]oz [facility] - [place], [address] [place] [id number] 0 Phone: () - 04/12 CBC w/ auto diff BA # K/uL 0.0 0.2 0.0 FINAL Nicole Carmonadamaris mu[facility]oz [facility] - [place], [address] [place] [id number] 0 Phone: () - 04/12 CBC w/ auto diff NRBC % #/100W BC 0.0 0.2 0.0 FINAL Nicole Felton Mathewdamaris muñoz [facility] - [place], [address] [place] [id number] 0 Phone: () - 04/12 CBC w/ auto diff RBC M/uL 3.9 5.1 2.94 Low FINAL Nicole [facility] - [place], [address] [facility] [address] [place] [id number] 0 Phone: () - 04/12 CBC w/ auto diff HCT % 35.0 48.0 29.6 Low FINAL Nicole muñoz [facility] - [place], [address] [facility] [address] [place] [id number] 0 Phone: () - 04/12 CBC w/ auto diff MCV fL 80.0 104.0 100.7 FINAL Nicole muñoz [facility] - [place], [address] [facility] [address] [place] [id number] 0 Phone: () - 04/12 CBC w/ auto diff MCH pg 26.0 35.0 32.0 FINAL Nicole muñoz [facility] - [place], [address] [facility] [address] [place] [id number] 0 Phone: () - 04/12 CBC w/ auto diff MCHC g/dL 30.0 35.0 31.8 FINAL Nicole muñoz [facility] - [place], [address] [facility] [address] [place] [id number] 0 Phone: () - 04/12 CBC w/ auto diff MPV fL 9.5 13.4 9.5 FINAL Nicole muñoz [facility] - [place], [address] [facility] [address] [place] [id number] 0 Phone: () - 04/12 CBC w/ auto diff RDW % 11.4 16.1 12.30 FINAL Nicole muñoz [facility] - [place], [address] [facility] [address] [place] [id number] 0 Phone: () - 04/12 CMP Album in g/dL 3.2 5.2 3.8 FINAL Nicole muñoz [facility] - [place], [address] [facility] [id number] 0 Phone: () - 04/12 CMP Alkal ine phosp hatas e U/L 46.0 116.0 90 FINAL Nicole Terrazas [facility], [address] [facility] [id number] 0 Phone: () - 04/12 CMP ALT/S GPT U/L 7.0 40.0 17 FINAL [facility] [address] [facility] 100 [facility] [id number] 0 Phone: () - 04/12 CMP AST/S GOT U/L 13.0 40.0 18 FINAL [facility] [address] [facility] 100 [facility] [id number] 0 Phone: () - 04/12 CMP BUN mg/dL 9.0 23.0 14.0 FINAL [place] [address] [id number] 0 Phone: () - 04/12 CMP Calci um mg/dL 8.7 10.4 9.1 FINAL [facility] [address] [id number] 0 Phone: () - 04/12 CMP Chlor rakan mmol/L 96.0 114.0 110 FINAL [facility] [address] [id number] 0 Phone: () - 04/12 CMP CO2 [...] 96 hour stability window. FINAL Nicole muñoz [facility], [address] [facility] [id number] 0 Phone: () - 04/12 CMP Creat inine mg/dL 0.5 1.2 0.86 FINAL Nicole muñoz [facility], [address] [id number] 0 Phone: () - 04/12 CMP GFR estim ate ml/min /1.73m ^2 73.0 GFR is calculate d using the CKD-EPI equation. FINAL Nicole muñoz [place] [address] [id number] 0 Phone: () - 04/12 CMP Gluco se mg/dL 73.0 126.0 85 FINAL Nicole Terrazas [place] [address] [id number] 0 Phone: () - 04/12 CMP Potas sium mmol/L 3.5 5.1 3.8 FINAL Nicole muñoz [place] [address] [id number] 0 Phone: () - 04/12 CMP Sodiu m mmol/L 136.0 145.0 146 High FINAL Nicole Terrazas [place] [address] [id number] 0 Phone: () - 04/12 CMP Bilir ubin, total mg/dL 0.3 1.2 0.3 FINAL Nicole Terrazas [place] [address] [id number] 0 Phone: () - 04/12 CMP Total prote in g/dL 5.7 8.2 5.6 Low FINAL Nicole muñoz [place] [address] [id number] 0 Phone: () - 04/12 PRIOR RESUL T Not Given FINAL Nicole Ya [employer], [facility] [address] [place] [id number] 4 04/12 SOURC E: Periphe ral Blood FINAL Nicole NEGRETE, [facility] [address] [place] [id number] 4 04/12 BCR ABL1/ ABL1 % % 0.000 FINAL Nicole NEGRETE, [facility] [address] [place] [id number] 4 04/12 BCR ABL1/ ABL1 % (IS) % 0.000 FINAL Nicole NEGRETE, [facility] [address] [place] [phone] 4 04/12 INTER PRETA TION see note [...] l informati on, please refer tohttp:// education .Mesh [place]/faq/F [email or web address](This link is being provided forinform ational/e ducationa l purposes only.)Ass ay sensitivi ty is at least 4.5-logs below baselineB CR-ABL1 transcrip t levels but is dependent onquantit y and quality of RNA used for testing and thecellul arity of the sample.Th is test was developed and its analytica lperforma nce character istics have been determine dby [facility] , [place], [place].It has not been cleared or approved by the FDA. Thisassay has been validated pursuant to the CLIAregul ations and is used for clinical purposes. Alejandro Ya, Ph.D, HCLD (ABB)Scie ntific Director, Molecular Oncology FINAL Nicole Ya QUEST, [facility] [address] [place] [id number] 4 04/12 P190 BCR ABL1 Not Detecte d FINAL Nicole NEGRETE, [facility] [address] [place] [id number] 4 04/12 P210 BCR ABL1 Not Detecte d FINAL Nicole Felton QUEST, [facility] [address] [place] [id number] 4 06/04 CBC w/ auto diff WBC K/uL 3.0 8.9 6.2 FINAL Nicole Ya Mathewot a [facility] - [place], [address] [place] [id number] 0 Phone: () - 06/04 CBC w/ auto diff HGB g/dL 11.3 15.2 12.8 FINAL Nicole Ya Mathewot a [facility] - [place], [address] [place] [id number] 0 Phone: () - 06/04 CBC w/ auto diff PLT K/uL 113.0 364.0 177 FINAL Nicole Ya Mathewot a [facility] - [place], [address] [place] [id number] 0 Phone: () - 06/04 CBC w/ auto diff Augustus # (ANC) K/uL 1.6 6.6 4.0 FINAL Nicole Ya Mathewot a [facility] - [place], [address] [place] [id number] 0 Phone: () - 06/04 CBC w/ auto diff Augustus % % 43.0 74.0 63.9 FINAL Nicole Ya Mathewot a [facility] - [place], [address] [place] [id number] 0 Phone: () - 06/04 CBC w/ auto diff IG % % 0.0 0.5 0.2 FINAL Nicole Felton Mathewot a [facility] - [place], [address] [place] [id number] 0 Phone: () - 06/04 CBC w/ auto diff IG # K/uL 0.0 0.03 0.01 FINAL Nicole Ya Mathewot a [facility] - [place], [address] [place] [id number] 0 Phone: () - 06/04 CBC w/ auto diff LY % % 14.0 41.0 27.5 FINAL Nicole Carmonaot a Oncology - [place], [address] [place] [id number] 0 Phone: () - 06/04 CBC w/ auto diff MO % % 6.0 15.0 7.9 FINAL Nicole Carmonaot a [facility] - [place], [address] [place] [id number] 0 Phone: () - 06/04 CBC w/ auto diff EO % % 0.0 7.0 0.2 FINAL Nicole Carmonaot a [facility] - [place], [address] [place] [id number] 0 Phone: () - 06/04 CBC w/ auto diff BA % % 0.0 2.0 0.3 FINAL Nicole Carmonaot a [facility] - [place], [address] [place] [id number] 0 Phone: () - 06/04 CBC w/ auto diff LY # K/uL 0.4 3.6 1.7 FINAL Nicole Carmonaot toni Oncology - [place], [address] [place] [id number] 0 Phone: () - 06/04 CBC w/ auto diff MO # K/uL 0.2 1.3 0.5 FINAL Nicole Carmonaot a [facility] - [place], [address] [place] [id number] 0 Phone: () - 06/04 CBC w/ auto diff EO # K/uL 0.0 0.6 0.0 FINAL Nicole Carmonaot a [facility] - [place], [address] [place] [id number] 0 Phone: () - 06/04 CBC w/ auto diff BA # K/uL 0.0 0.2 0.0 FINAL Nicole Ya Mathewot a [facility] - [place], [address] [place] [id number] 0 Phone: () - 06/04 CBC w/ auto diff NRBC % #/100W BC 0.0 0.2 0.0 FINAL Nicole Ya Nini muñoz Oncology - [place], [address] [place] [id number] 0 Phone: () - 06/04 CBC w/ auto diff RBC M/uL 3.9 5.1 4.27 FINAL Nicole Felton Mathewdamaris muñoz Oncology - [place], [address] [place] [id number] 0 Phone: () - 06/04 CBC w/ auto diff HCT % 35.0 48.0 39.5 FINAL Nicole Ya Mathewdamaris muñoz Oncology - [place], [address] [place] [id number] 0 Phone: () - 06/04 CBC w/ auto diff MCV fL 80.0 104.0 92.5 FINAL Nicole Ya Mathewdamaris muñoz Oncology - [place], [address] [place] [id number] 0 Phone: () - 06/04 CBC w/ auto diff MCH pg 26.0 35.0 30.0 FINAL Nicole Ya Mathewdamaris muñoz Oncology - [place], [address] [place] [id number] 0 Phone: () - 06/04 CBC w/ auto diff MCHC g/dL 30.0 35.0 32.4 FINAL Nicole Ya Mathewdamaris muñoz Oncology - [place], [address] [place] [id number] 0 Phone: () - 06/04 CBC w/ auto diff MPV fL 9.5 13.4 9.3 Low FINAL Nicole Felton Mathewdamaris muñoz Oncology - [place], [address] [place] [id number] 0 Phone: () - 06/04 CBC w/ auto diff RDW % 11.4 16.1 12.70 FINAL Nicole Ya Mathewdamaris muñoz Oncology - [place], [address] [facility] [place] [id number] 0 Phone: () - 06/04 iSTAT K+ panel Potas sium, iSTAT mmol/L 3.5 4.9 3.8 Reference range adjusted 0 with implement ation of I-Stat 8+ cartridge . FINAL Nicole Ya [facility], [address] [facility] [place] [id number] 0 Phone: () - 07/05 CMP Album in g/dL 3.2 5.2 4.4 FINAL Nicole Ya * [facility], [address] [facility] [id number] [phone] Phone: () - 07/05 CMP Alkal ine phosp hatas e U/L 46.0 116.0 107 FINAL Nicole Ya * [facility], [address] [place] [address] [id number] Phone: () - 07/05 CMP ALT/S GPT U/L 7.0 40.0 26 FINAL Nicole Ya * [facility] Formerly [facility], [address] [facility] [id number] 0 Phone: () - 07/05 CMP AST/S GOT U/L 13.0 40.0 23 FINAL Nicole Ya * [facility], [address] [facility] [id number] 0 Phone: () - 07/05 CMP BUN mg/dL 9.0 23.0 15.0 FINAL Nicole Ya * [facility] a [facility], [address] [facility] [id number] 0 Phone: () - 07/05 CMP Calci um mg/dL 8.7 10.4 10.4 FINAL Nicole Ya * [facility], [address] [facility] [id number] 0 Phone: () - 07/05 CMP Chlor rakan mmol/L 96.0 114.0 109 FINAL Nicole Ya * [facility] Formerly [facility], [address] [facility] [id number] 0 Phone: () - 07/05 CMP CO2 [...] hour stability window. FINAL Nicole Ya Dania [facility], [address] [id number] 0 Phone: () - 07/05 CMP Creat inine mg/dL 0.5 1.2 1.06 FINAL Nicole Ya [place] [address] [id number] 0 Phone: () - 07/05 CMP GFR estim ate ml/min /1.73m ^2 56.7 Low GFR is calculate d using the CKD-EPI equation. FINAL Nicole Ya [place] [address] [id number] 0 Phone: () - 07/05 CMP Gluco se mg/dL 73.0 126.0 97 FINAL Nicole Ya Dan[place] [address] [id number] 0 Phone: () - 07/05 CMP Potas sium mmol/L 3.5 5.1 4.4 FINAL Nicole Ya Dania [place] [address] [id number] 0 Phone: () - 07/05 CMP Sodiu m mmol/L 136.0 145.0 143 FINAL Nicole Felton Najera [place] [address] [id number] 0 Phone: () - 07/05 CMP Bilir ubin, total mg/dL 0.3 1.2 0.5 FINAL [facility] [address] [id number] 0 Phone: () - 07/05 CMP Total prote in g/dL 5.7 8.2 6.4 FINAL Nicole Najera [facility] [place], [address] [place] [id number] 0 Phone: () - 07/05 CBC w/ auto diff WBC K/uL 3.0 8.9 3.3 FINAL Nicole Ya [facility] - [place], [address] [place] [id number] 0 Phone: () - 07/05 CBC w/ auto diff HGB g/dL 11.3 15.2 11.9 FINAL Nicole Ya Nini a [facility] - [place], [address] [place] [id number] 0 Phone: () - 07/05 CBC w/ auto diff PLT K/uL 113.0 364.0 163 FINAL Nicole Felton [facility] - [place], [address] [place] [id number] 0 Phone: () - 07/05 CBC w/ auto diff Augustus # (ANC) K/uL 1.6 6.6 2.0 FINAL Nicole Ya [facility] - [place], [address] [place] [id number] 0 Phone: () - 07/05 CBC w/ auto diff Augustus % % 43.0 74.0 58.6 FINAL Nicole Ya [facility] - [place], [address] [place] [id number] 0 Phone: () - 07/05 CBC w/ auto diff IG % % 0.0 0.5 0.3 FINAL Nicole Ya Nini a [facility] - [place], [address] [place] [id number] 0 Phone: () - 07/05 CBC w/ auto diff IG # K/uL 0.0 0.03 0.01 FINAL Nicole Felton [facility] - [place], [address] [place] [id number] 0 Phone: () - 07/05 CBC w/ auto diff LY % % 14.0 41.0 24.3 FINAL Nicole Carmonaot a [facility] - [place], [address] [place] [id number] 0 Phone: () - 07/05 CBC w/ auto diff MO % % 6.0 15.0 16.2 High FINAL Nicole Carmonaot a [facility] - [place], [address] [place] [id number] 0 Phone: () - 07/05 CBC w/ auto diff EO % % 0.0 7.0 0.3 FINAL Nicole Carmonaot a [facility] - [place], [address] [place] [id number] 0 Phone: () - 07/05 CBC w/ auto diff BA % % 0.0 2.0 0.3 FINAL Nicole Terrazas a [facility] - [place], [address] [place] [id number] 0 Phone: () - 07/05 CBC w/ auto diff LY # K/uL 0.4 3.6 0.8 FINAL Nicole Terrazas a [facility] - [place], [address] [place] [id number] 0 Phone: () - 07/05 CBC w/ auto diff MO # K/uL 0.2 1.3 0.5 FINAL Nicole Terrazas a [facility] - [place], [address] [place] [id number] 0 Phone: () - 07/05 CBC w/ auto diff EO # K/uL 0.0 0.6 0.0 FINAL Nicole Carmonaot a [facility] - [place], [address] [place] [id number] 0 Phone: () - 07/05 CBC w/ auto diff BA # K/uL 0.0 0.2 0.0 FINAL Nicole Carmonaot a [facility] - [place], [address] [place] [id number] 0 Phone: () - 07/05 CBC w/ auto diff NRBC % #/100W BC 0.0 0.2 0.0 FINAL Nicole Carmonaot a [facility] - [place], [address] [place] [id number] 0 Phone: () - 07/05 CBC w/ auto diff RBC M/uL 3.9 5.1 3.95 FINAL Nicole Ya [facility] - [place], [address] [place] [id number] 0 Phone: () - 07/05 CBC w/ auto diff HCT % 35.0 48.0 36.7 FINAL Nicole Ya Nini a [facility] - [place], [address] [place] [id number] 0 Phone: () - 07/05 CBC w/ auto diff MCV fL 80.0 104.0 92.9 FINAL Nicole Felton Nini a [facility] - [place], [address] [place] [id number] 0 Phone: () - 07/05 CBC w/ auto diff MCH pg 26.0 35.0 30.1 FINAL Nicole Ya Nini muñoz On[facility] - [place], [address] [place] [id number] 0 Phone: () - 07/05 CBC w/ auto diff MCHC g/dL 30.0 35.0 32.4 FINAL Nicole Ya Nini a [facility] - [place], [address] [place] [id number] 0 Phone: () - 07/05 CBC w/ auto diff MPV fL 9.5 13.4 8.8 Low FINAL Nicole muñoz On[facility] - [place], [address] [place] [id number] 0 Phone: () - 07/05 CBC w/ auto diff RDW % 11.4 16.1 14.10 FINAL Nicole Felton [facility] - [place], [address] [place] [id number] 0 Phone: () - 12/02 PRIOR RESUL T See Report FINAL Nicole Ya [facility], [facility] [address] [place] [id number] 4 12/02 [facility] E: Periphe ral Blood FINAL Nicole NEGRETE, [facility] [address] [place] [id number] 4 12/02 BCR ABL1/ ABL1 % % 0.000 FINAL Nicole Ya [facility]ST, [facility] [address] [place] [id number] 4 12/02 BCR ABL1/ ABL1 % (IS) % 0.000 FINAL Nicole NEGRETE, [facility] [address] [place] [id number] 4 12/02 INTER PRETA TION see note [...] l informati on, please refer tohttp:// education .Mesh [place]/faq/F AQ72(This link is being provided forinform ational/e ducationa l purposes only.)Ass ay sensitivi ty is at least 4.5-logs below baselineB CR-ABL1 transcrip t levels but is dependent onquantit y and quality of RNA used for testing and thecellul arity of the sample.Th is test was developed and its analytica lperforma nce character istics have been determine dby [facility] [place], [place].It has not been cleared or approved by the FDA. Thisassay has been validated pursuant to the CLIAregul ations and is used for clinical purposes. Alejandro Ya, Ph.D, CARLI (Diomedes head Director, Molecular Oncology FINAL Nicoledarius Ya [facility], [facility] [address] [place] [id number] 4 12/02 P190 BCR ABL1 Not Detecte d FINAL Nicole Ya [facility], [facility] [address] [place] [id number] 4 12/02 P210 BCR ABL1 Not Detecte d FINAL Nicole Ya QUEST, [facility] [address] [place] [id number] 4 12/02 CMP Album in g/dL 3.5 5.0 4.3 FINAL Nicole Ya * [facility] [facility] Former[facility], [facility] [address] [id number] 0 12/02 CMP Alkal ine phosp hatas e U/L 36.0 125.0 126 High FINAL Nicole Ya * [facility], [facility] [address] [id number] 0 12/02 CMP ALT/S GPT U/L 0.0 34.0 29 FINAL Nicole Ya * [facility] [facility] Former[facility], [address] [id number] 0 12/02 CMP AST/S GOT U/L 14.0 36.0 39 High FINAL Nicole Ya * [place] [facility], [facility] [address] [id number] 0 12/02 CMP BUN mg/dL 7.0 17.0 14.0 FINAL Nicole Ya * [place] [facility] Former[facility], [facility] [address] [id number] 0 12/02 CMP Calci um mg/dL 8.4 10.2 9.1 FINAL [facility], [facility] [address] [id number] 0 12/02 CMP Chlor rakan mmol/L 96.0 107.0 108 High FINAL [facility], [facility] [address] [id number] 0 12/02 CMP CO2 mmol/L 22.0 30.0 [...] the 96 hour stability window. FINAL Nicole [facility], [facility] [address] [id number] 0 12/02 CMP Creat inine mg/dL 0.66 1.25 1.30 High FINAL Nicole [facility], [facility] [address] [id number] 0 12/02 CMP GFR estim ate ml/min /1.73m ^2 44.3 Low GFR is calculate d using the CKD-EPI equation. FINAL Nicole [facility], [facility] [address] [id number] 0 12/02 CMP Gluco se mg/dL 74.0 100.0 126 High FINAL Nicole [facility], [facility] [address] [id number] 0 12/02 CMP Potas sium mmol/L 3.5 5.1 3.9 FINAL Nicole Ya * [place] [facility] [place], [address] [facility] [id number] 0 12/02 CMP Sodiu m mmol/L 137.0 145.0 140 FINAL Nicole Ya * [place] [facility] [place], [address] [facility] [place] [id number] 0 12/02 CMP Bilir ubin, total mg/dL 0.2 1.3 0.7 FINAL Nicole Ya * [place] [facility] [place], [address] [facility] [id number] 0 12/02 CMP Total prote in g/dL 6.3 8.2 6.5 FINAL Nicole Ya * [place] [facility] [place], [address] [facility] [id number] 0 12/02 CBC w/ auto diff WBC K/uL 3.0 8.9 4.0 FINAL Nicole Terrazas a [facility] - [place], [address] [place] [id number] 0 Phone: () - 12/02 CBC w/ auto diff HGB g/dL 11.3 15.2 12.8 FINAL Nicole Terrazas [facility] - [place], [address] [place] [id number] 0 Phone: () - 12/02 CBC w/ auto diff PLT K/uL 113.0 364.0 175 FINAL Nicole Carmonaot a [facility] - [place], [address] [place] [id number] 0 Phone: () - 12/02 CBC w/ auto diff Augustus # (ANC) K/uL 1.6 6.6 2.5 FINAL Nicole Terrazas a [facility] - [place], [address] [place] [id number] 0 Phone: () - 12/02 CBC w/ auto diff Augustus % % 43.0 74.0 63.2 FINAL Nicole Carmonaot a [facility] - [place], [address] [place] [id number] 0 Phone: () - 12/02 CBC w/ auto diff IG % % 0.0 0.5 0.3 FINAL Nicole Carmonaot a [facility] - [place], [address] [place] [id number] 0 Phone: () - 12/02 CBC w/ auto diff IG # K/uL 0.0 0.03 0.01 FINAL Nicole Terrazas a [facility] - [place], [address] [place] [id number] 0 Phone: () - 12/02 CBC w/ auto diff LY % % 14.0 41.0 25.7 FINAL Nicole Carmonaot a [facility] - [place], [address] [place] [id number] 0 Phone: () - 12/02 CBC w/ auto diff MO % % 6.0 15.0 10.8 FINAL Nicole muñoz [facility] - [place], [address] [place] [id number] 0 Phone: () - 12/02 CBC w/ auto diff EO % % 0.0 7.0 0.0 FINAL Nicole Carmonaot a [facility] - [place], [address] [place] [id number] 0 Phone: () - 12/02 CBC w/ auto diff BA % % 0.0 2.0 0.0 FINAL Nicole Carmonaot a [facility] - [place], [address] [place] [id number] 0 Phone: () - 12/02 CBC w/ auto diff LY # K/uL 0.4 3.6 1.0 FINAL Nicole Ya [facility]ot [facility] - [place], [address] [place] [id number] 0 Phone: () - 12/02 CBC w/ auto diff MO # K/uL 0.2 1.3 0.4 FINAL Nicole Felton Nini muñoz [facility] - [place], [address] [place] [id number] 0 Phone: () - 12/02 CBC w/ auto diff EO # K/uL 0.0 0.6 0.0 FINAL Nicole Felton Nini muñoz [facility] - [place], [address] [place] [id number] 0 Phone: () - 12/02 CBC w/ auto diff BA # K/uL 0.0 0.2 0.0 FINAL Nicole Felton Mathewdamaris muñoz [facility] - [place], [address] [place] [id number] 0 Phone: () - 12/02 CBC w/ auto diff NRBC % #/100W BC 0.0 0.2 0.0 FINAL Nicole Ya Mathewdamaris toni [facility] - [place], [address] [place] [id number] 0 Phone: () - 12/02 CBC w/ auto diff RBC M/uL 3.9 5.1 3.98 FINAL Nicole Ya Mathewdamaris muñoz On[facility] - [place], [address] [place] [id number] 0 Phone: () - 12/02 CBC w/ auto diff HCT % 35.0 48.0 38.6 FINAL Nicole Ya Mathewdamaris muñoz On[facility] - [place], [address] [place] [id number] 0 Phone: () - 12/02 CBC w/ auto diff MCV fL 80.0 104.0 97.0 FINAL Nicole Ya Mathewdamaris muñoz [facility] - [place], [address] [place] [id number] 0 Phone: () - 12/02 CBC w/ auto diff MCH pg 26.0 35.0 32.2 FINAL Nicole Ya Mathewdamaris muñoz [facility] - [place], [address] [place] [id number] 0 Phone: () - 12/02 CBC w/ auto diff MCHC g/dL 30.0 35.0 33.2 FINAL Nicole Ya [facility] - [place], [address] [place] [id number] 0 Phone: () - 12/02 CBC w/ auto diff MPV fL 9.5 13.4 9.1 Low FINAL Nicole Ya [facility] - [place], [address] [place] [id number] 0 Phone: () - 12/02 CBC w/ auto diff RDW % 11.4 16.1 12.70 FINAL Nicole Ya [facility] - [place], [address] [place] [id number] 0 Phone: () - 03/30 [facility] other lab See sanitation tank washer d 05/21 [facility] other lab See sanitation tank washer d 06/15 CMP Album in g/dL 3.5 5.0 4.6 FINAL Nicole Ya * [facility] , [address] [facility] [id number] 06/15 CMP Alkal ine phosp hatas e U/L 36.0 125.0 92 FINAL Nicole Ya * [facility] , [address] [facility] [id number] 0 06/15 CMP ALT/S GPT U/L 0.0 34.0 44 High FINAL Nicole Ya * [facility] , [address] [facility] [id number] 0 06/15 CMP AST/S GOT U/L 14.0 36.0 43 High FINAL Nicole Ya * [facility] , [address] [facility] [id number] 0 06/15 CMP BUN mg/dL 7.0 17.0 17.0 FINAL Nicole Ya * [facility] , [address] [facility] [address] [facility] [id number] 0 06/15 CMP Calci um mg/dL 8.4 10.2 9.6 FINAL Nicole Ya * [facility] , [address] [facility] [address] [facility] [id number] 06/15 CMP Chlor rakan mmol/L 96.0 107.0 106 FINAL Nicole Felton * [facility] , [facility] [address] [id number] 0 06/15 CMP CO2 mmol/L 22.0 30.0 [...] hour stability window. FINAL Nicole Ya * [facility] , [address] [facility] [address] [id number] 0 06/15 CMP Creat inine mg/dL 0.66 1.25 1.30 High FINAL Nicole Ya * [facility] , [address] [facility] [address] [id number] 0 06/15 CMP GFR estim ate ml/min /1.73m ^2 44.1 Low GFR is calculate d using the CKD-EPI equation. FINAL Nicole Ya * [facility] , [address] [facility] [address] [id number] 0 06/15 CMP Gluco se mg/dL 74.0 100.0 94 FINAL Nicole Ya * [facility] , [facility] [address] [facility] [id number] 0 06/15 CMP Potas sium mmol/L 3.5 5.1 4.1 FINAL Nicole Ya * [facility] , [address] [facility] [id number] 0 06/15 CMP Sodiu m mmol/L 137.0 145.0 140 FINAL Nicole Felton * [facility] , [address] [facility] [id number] 0 06/15 CMP Bilir ubin, total mg/dL 0.2 1.3 0.9 FINAL Nicole Felton * [facility] , [address] [facility] [id number] 06/15 CMP Total prote in g/dL 6.3 8.2 6.7 FINAL Nicole Felton * [facility] , [address] [facility] [id number] 0 06/15 CBC w/ auto diff WBC K/uL 3.0 8.9 4.7 FINAL [facility] , [address] [facility] [id number] 0 06/15 CBC w/ auto diff HGB g/dL 11.3 15.2 13.6 FINAL Nicole Ya [place] [facility] , [address] [facility] [id number] 0 06/15 CBC w/ auto diff PLT K/uL 113.0 364.0 151 FINAL Nicole Felton [place] [facility] , [facility] [address] [facility] [address] [facility] [id number] 0 06/15 CBC w/ auto diff Augustus # (ANC) K/uL 1.6 6.6 2.9 FINAL Nicole Ya [place] [facility] , [address] [place] [id number] 0 06/15 CBC w/ auto diff Augustus % % 43.0 74.0 61.4 FINAL Nicole Ya [place] [facility] , [address] [place] [id number] 0 06/15 CBC w/ auto diff IG % % 0.0 0.5 0.2 FINAL Nicole Ya [place] [facility] , [address] [place] [id number] 0 06/15 CBC w/ auto diff IG # K/uL 0.0 0.03 0.01 FINAL Nicole Ya [place] [facility] , [address] [place] [id number] 0 06/15 CBC w/ auto diff LY % % 14.0 41.0 28.3 FINAL Nicole Ya [place] [facility] , [address] [place] [id number] 0 06/15 CBC w/ auto diff MO % % 6.0 15.0 10.1 FINAL Nicole Ya [place] [facility] , [address] [place] [id number] 0 06/15 CBC w/ auto diff EO % % 0.0 7.0 0.0 FINAL Nicole Ya [place] [facility] , [address] [place] [id number] 0 06/15 CBC w/ auto diff BA % % 0.0 2.0 0.0 FINAL Nicole Ya [place] [facility] , [address] [place] [id number] 0 06/15 CBC w/ auto diff LY # K/uL 0.4 3.6 1.3 FINAL Nicole Ya [place] [facility] , [address] [place] [id number] 0 06/15 CBC w/ auto diff MO # K/uL 0.2 1.3 0.5 FINAL Nicole Ya [place] [facility] , [address] [place] [id number] 0 06/15 CBC w/ auto diff EO # K/uL 0.0 0.6 0.0 FINAL Nicole Ya [place] [facility] , [address] [place] [id number] 0 06/15 CBC w/ auto diff BA # K/uL 0.0 0.2 0.0 FINAL Nicole Ya [place] [facility] , [address] [place] [id number] 0 06/15 CBC w/ auto diff NRBC % #/100W BC 0.0 0.2 0.0 FINAL Nicole Ya [place] [facility] , [address] [place] [id number] 0 06/15 CBC w/ auto diff RBC M/uL 3.9 5.1 4.32 FINAL Nicole Ya [place] [facility] , [address] [place] [id number] 0 06/15 CBC w/ auto diff HCT % 35.0 48.0 41.6 FINAL Nicoel Ya [place] [facility] , [address] [place] [id number] 0 06/15 CBC w/ auto diff MCV fL 80.0 104.0 96.3 FINAL Nicole Ya [place] [facility] , [address] [place] [id number] 0 06/15 CBC w/ auto diff MCH pg 26.0 35.0 31.5 FINAL Nicole Ya [place] [facility] , [address] [place] [id number] 0 06/15 CBC w/ auto diff MCHC g/dL 30.0 35.0 32.7 FINAL Nicole Ya [place] [facility] , [address] [place] [id number] 0 06/15 CBC w/ auto diff MPV fL 9.5 13.4 9.3 Low FINAL Nicole Ya [place] [facility] , [address] [place] [id number] 0 06/15 CBC w/ auto diff RDW % 11.4 16.1 12.00 FINAL Nicole Ya [place] [facility] , [address] [place] [id number] 0 06/15 PRIOR RESUL T See Report FINAL Nicole NEGRETE, [facility] [address] [place] [id number] 4 06/15 [facility] E: Periphe ral Blood FINAL Nicole NEGRETE, [facility] [address] [place] [id number] 4 06/15 BCR ABL1/ ABL1 % % 0.000 FINAL Nicole NEGRETE, [facility] [address] [place] [id number] 4 06/15 BCR ABL1/ ABL1 % (IS) % 0.000 FINAL Nicole NEGRETE, [facility] [address] [place] [id number] 4 06/15 INTER PRETA TION see note [...] l informati on, please refer tohttp:// education .Mesh [place]/faq/F AQ72(This link is being provided forinform ational/e ducationa l purposes only.)Ass ay sensitivi ty is at least 4.5-logs below baselineB CR-ABL1 transcrip t levels but is dependent onquantit y and quality of RNA used for testing and thecellul arity of the sample.Th is test was developed and its analytica lperforma nce character istics have been determine dby [facility] [place], [place].It has not been cleared or approved by the FDA. Thisassay has been validated pursuant to the CLIAregul ations and is used for clinical purposes. Denver wilson M.D. FINAL [employer], [facility] [address] [place] [id number] 4 06/15 P190 BCR ABL1 Not Detecte d FINAL [employer], [facility] [address] [place] [id number] 4 06/15 P210 BCR ABL1 Not Detecte d FINAL [employer], [facility] [address] [place] [id number] 4 01/06 CMP Album in g/dL 3.5 5.0 3.9 FINAL Nicole Felton * [facility] , [address] [facility] [id number] 0 01/06 CMP Alkal ine phosp hatas e U/L 36.0 125.0 79 FINAL Nicole Felton * [facility] , [address] [facility] [id number] 0 01/06 CMP ALT/S GPT U/L 0.0 34.0 24 FINAL Nicole Felton * [facility] , [address] [facility] [id number] 0 01/06 CMP AST/S GOT U/L 14.0 36.0 33 FINAL Nicole Felton * [facility] , [address] [facility] [id number] 0 01/06 CMP BUN mg/dL 7.0 17.0 14.0 FINAL Nicole Ya * [facility] , [address] [facility] [id number] 01/06 CMP Calci um mg/dL 8.4 10.2 8.9 FINAL Nicole Ya * [facility] , [address] [facility] [id number] 0 01/06 CMP Chlor rakan mmol/L 96.0 107.0 109 High FINAL Nicoledarius Ya * [facility] [facility] , [address] [facility] [id number] 0 01/06 CMP CO2 mmol/L 22.0 30.0 [...] the 96 hour stability window. FINAL Nicole Felton * [facility] , [address] [facility] [id number] 0 01/06 CMP Creat inine mg/dL 0.66 1.25 1.00 FINAL Nicole Felton * [facility] , [address] [facility] [id number] 0 01/06 CMP GFR estim ate ml/min /1.73m ^2 60.2 GFR is calculate d using the CKD-EPI equation. FINAL Nicole Felton * [facility] , [address] [id number] 0 01/06 CMP Gluco se mg/dL 74.0 100.0 88 FINAL Nicole Ya * [facility] , [address] [facility] [id number] 0 01/06 CMP Potas sium mmol/L 3.5 5.1 4.1 FINAL Nicole Ya * [facility] , [address] [id number] 0 01/06 CMP Sodiu m mmol/L 137.0 145.0 141 FINAL Nicole Ya * [facility] , [address] [facility] [id number] 01/06 CMP Bilir ubin, total mg/dL 0.2 1.3 0.8 FINAL Nicole Ya * [facility] , [address] [id number] 0 01/06 CMP Total prote in g/dL 6.3 8.2 6.2 Low FINAL Nicole Ya * [facility] , [address] [id number] 0 01/06 CBC w/ auto diff WBC K/uL 3.0 8.9 4.5 FINAL Nicole aY [place] [facility] [place] [facility] , [address] [place] [id number] 0 01/06 CBC w/ auto diff HGB g/dL 11.3 15.2 12.8 FINAL Nicole Ya [place] [facility] [place] [facility] , [address] [place] [id number] 0 01/06 CBC w/ auto diff PLT K/uL 113.0 364.0 153 FINAL Nicole Ya [facility] [place] [facility] , [address] [place] [id number] 0 01/06 CBC w/ auto diff Augusuts # (ANC) K/uL 1.6 6.6 2.8 FINAL Nicole Ya [facility] [place] [facility] , [address] [place] [id number] 0 01/06 CBC w/ auto diff Augustus % % 43.0 74.0 61.5 FINAL Nicole Ya [facility] [place] [facility] , [address] [place] [id number] 0 01/06 CBC w/ auto diff IG % % 0.0 0.5 0.4 FINAL Nicole Ya [facility] [place] [facility] , [address] [place] [id number] 0 01/06 CBC w/ auto diff IG # K/uL 0.0 0.03 0.02 FINAL Nicole Ya [place] [facility] [place] [facility] , [address] [place] [id number] 0 01/06 CBC w/ auto diff LY % % 14.0 41.0 25.4 FINAL Nicole Ya [place] [facility] [place] [facility] , [address] [place] [id number] 0 01/06 CBC w/ auto diff MO % % 6.0 15.0 12.7 FINAL Nicole Ya [place] [facility] [place] [facility] , [address] [place] [id number] 0 01/06 CBC w/ auto diff EO % % 0.0 7.0 0.0 FINAL Nicole Ya [place] [facility] [place] [facility] , [address] [place] [id number] 0 01/06 CBC w/ auto diff BA % % 0.0 2.0 0.0 FINAL Nicole Ya [place] [facility] [place] [facility] , [address] [place] [id number] 0 01/06 CBC w/ auto diff LY # K/uL 0.4 3.6 1.1 FINAL Nicole Ya [place] [facility] [place] [facility] , [address] [place] [id number] 0 01/06 CBC w/ auto diff MO # K/uL 0.2 1.3 0.6 FINAL Nicole Ya [place] [facility] [place] [facility] , [address] [place] [id number] 0 01/06 CBC w/ auto diff EO # K/uL 0.0 0.6 0.0 FINAL Nicole Ya [place] [facility] [place] [facility] , [address] [place] [id number] 0 01/06 CBC w/ auto diff BA # K/uL 0.0 0.2 0.0 FINAL Nicole Ya [place] [facility] [place] [facility] , [address] [place] [id number] 0 01/06 CBC w/ auto diff NRBC % #/100W BC 0.0 0.2 0.0 FINAL Nicole Ya [place] [facility] [place] [facility] , [address] [place] [id number] 0 01/06 CBC w/ auto diff RBC M/uL 3.9 5.1 3.69 Low FINAL Nicole Ya [place] [facility] [place] [facility] , [address] [place] [id number] 0 01/06 CBC w/ auto diff HCT % 35.0 48.0 37.6 FINAL Nicole Ya [place] [facility] [place] [facility] , [address] [place] [id number] 0 01/06 CBC w/ auto diff MCV fL 80.0 104.0 101.9 FINAL Nicole Ya [place] [facility] [place] [facility] , [address] [place] [id number] 0 01/06 CBC w/ auto diff MCH pg 26.0 35.0 34.7 FINAL Nicole Ya [place] [facility] [place] [facility] , [address] [place] [id number] 0 01/06 CBC w/ auto diff MCHC g/dL 30.0 35.0 34.0 FINAL Nicole Ya [place] [facility] [place] [facility] , [address] [place] [id number] 0 01/06 CBC w/ auto diff MPV fL 9.5 13.4 9.6 FINAL Nicole Ya [place] [facility] [place] [facility] , [address] [place] [id number] 0 01/06 CBC w/ auto diff RDW % 11.4 16.1 13.00 FINAL Nicole Ya [place] [facility] [place] [facility] , [address] [place] [id number] 0 01/06 PRIOR RESUL T See Report FINAL Nicole Ya [employer], [facility] [address] [place] [id number] 4 01/06 SOURC E: Periphe ral Blood FINAL Nicole Ya [facility], [facility] [address] [place] [id number] 4 01/06 BCR ABL1/ ABL1 % % 0.000 FINAL Nicole Ya [facility], [facility] [address] [place] [id number] 4 01/06 BCR ABL1/ ABL1 % (IS) % 0.000 FINAL Nicole Ya [employer], [facility] [address] [place] [id number] 4 01/06 INTER PRETA TION see note [...] l informati on, please refer tohttp:// education .[employer] [place]/faq/F AQ72(This link is being provided forinform ational/e ducationa l purposes only.)Ass ay sensitivi ty is at least 4.5-logs below baselineB CR-ABL1 transcrip t levels but is dependent onquantit y and quality of RNA used for testing and thecellul arity of the sample.Th is test was developed and its analytica lperforma nce character istics have been determine dby [facility] [place], [place].It has not been cleared or approved by the FDA. Thisassay has been validated pursuant to the CLIAregul ations and is used for clinical purposes. Reviewed by Aiden Hui M.D., Ph.D.Staf f Pathologi st FINAL Nicole [employer], [facility] [address] [place] [id number] 4 01/06 P190 BCR ABL1 Not Detecte d [facility] Nicole [employer], [employer] [facility] [address] [place] [id number] 4 01/06 P210 BCR ABL1 Not Detecte d [facility] [employer], [facility] [address] [place] [id number] 4 Medications Date Name Route Dose Frequency [...] given Active Vital Signs Date Type Value 09/11/2022 Body Temperature 98.20 09/11/2022 Heart Beat 71.00 09/11/2022 Oxygen Saturation 98.00 09/11/2022 Intravascular Systolic 114 09/11/2022 Intravascular Diastolic 76 09/11/2022 BSA 1.91 09/11/2022 Pain Scale 0.00 09/11/2022 Weight 176.20 09/11/2022 Height 66.50 09/11/2022 BMI 28.01 09/11/2022 Respiratory Rate 16.00 11/06/2022 BMI 28.39 11/06/2022 Height 66.50 11/06/2022 Weight 178.60 11/06/2022 Pain Scale 0.00 11/06/2022 BSA 1.92 11/06/2022 Oxygen Saturation 98.00 11/06/2022 Respiratory Rate 16.00 11/06/2022 Heart Beat 66.00 11/06/2022 Body Temperature 97.80 11/06/2022 Intravascular Systolic 114 11/06/2022 Intravascular Diastolic 78 11/09/2022 Pain Scale 0.00 11/09/2022 Height 66.50 11/16/2022 BMI 28.47 11/16/2022 Height 66.50 11/16/2022 Weight 179.10 11/16/2022 Pain Scale 0.00 11/16/2022 BSA 1.92 11/16/2022 Oxygen Saturation 97.00 11/16/2022 Respiratory Rate 16.00 11/16/2022 Heart Beat 82.00 11/16/2022 Body Temperature 96.20 11/16/2022 Intravascular Systolic 121 11/16/2022 Intravascular Diastolic 82 11/21/2022 Height 66.50 11/21/2022 BMI 27.95 11/21/2022 BSA 1.90 11/21/2022 Body Temperature 97.50 11/21/2022 Heart Beat 71.00 11/21/2022 Respiratory Rate 16.00 11/21/2022 Oxygen Saturation 99.00 11/21/2022 Intravascular Systolic 114 11/21/2022 Intravascular Diastolic 76 11/21/2022 Pain Scale 6.00 11/21/2022 Weight 175.80 11/27/2022 Body Temperature 98.10 11/27/2022 Heart Beat [...] BSA 1.89 12/13/2022 Pain Scale 0.00 12/14/2022 Body Temperature 98.20 12/14/2022 Heart Beat 107.00 12/14/2022 Respiratory Rate 16.00 12/14/2022 Height 66.50 12/14/2022 Intravascular Systolic 136 12/14/2022 Intravascular Diastolic 74 12/14/2022 Pain Scale 0.00 12/14/2022 Oxygen Saturation 97.00 12/27/2022 Body Temperature 97.80 12/27/2022 Heart Beat 84.00 12/27/2022 BSA 1.90 12/27/2022 BMI 27.89 12/27/2022 Height 66.50 12/27/2022 Weight 175.40 12/27/2022 Pain Scale 0.00 12/27/2022 Intravascular Systolic 104 12/27/2022 Intravascular Diastolic 64 12/27/2022 Oxygen Saturation 97.00 12/27/2022 Respiratory Rate 16.00 12/28/2022 Body Temperature 97.70 12/28/2022 BMI 27.84 12/28/2022 Height 66.50 12/28/2022 Weight 175.10 12/28/2022 BSA 1.90 12/28/2022 Intravascular Systolic 121 12/28/2022 Intravascular Diastolic 72 12/28/2022 Oxygen Saturation 97.00 12/28/2022 Respiratory Rate 16.00 12/28/2022 Heart Beat 94.00 12/28/2022 Pain Scale 0.00 01/01/2023 Body Temperature 98.60 01/01/2023 BSA 1.91 01/01/2023 BMI 28.12 01/01/2023 Height 66.50 01/01/2023 Weight 176.90 01/01/2023 Pain Scale 0.00 01/01/2023 Intravascular Systolic 113 01/01/2023 Intravascular Diastolic 64 01/01/2023 Oxygen Saturation 98.00 01/01/2023 Respiratory Rate 16.00 01/01/2023 Heart Beat 83.00 01/03/2023 Oxygen Saturation 98.00 01/03/2023 Intravascular Systolic 109 01/03/2023 Intravascular Diastolic 58 01/03/2023 Height 66.50 01/03/2023 Pain Scale 0.00 01/03/2023 Body Temperature 98.50 01/03/2023 Heart Beat 78.00 01/04/2023 Body Temperature 98.30 01/04/2023 Height 66.50 01/04/2023 Oxygen Saturation 98.00 01/04/2023 Intravascular Systolic 113 01/04/2023 Intravascular Diastolic 71 01/04/2023 Pain Scale 0.00 01/04/2023 Heart Beat 71.00 01/14/2023 Body Temperature 97.90 01/14/2023 Heart Beat [...] Heart Beat 72.00 01/20/2025 Pain Scale 0.00 Notes Section * Med Onc Follow-up Note (Amended) Patient Name: MARIO MERCADO? Date Of : 1955? Today's Provider:?[facility] Date of Service:?09/11/2022? Attending Physician:?Ruiz Raya Referring Provider:? HEMATOLOGY/ MEDICAL ONCOLOGY FOLLOW UP VISIT Reason for Visit CML Assessment Chronic myelogenous leukemia -Currently in??complete molecular remission??without adverse effects. - She is tolerating nilotinib at 200 mg daily, higher dosing caused rash. -Prior intolerance to imatinib??causing rash. Influenza vaccination - Discussed risks and benefits - Has previously tolerated and would like to have influenza vaccination Depression and grief: Has psychiatrist, advised to check??with them regarding the recent??'sloss??and increase in symptoms. Plan Continue with treatment as planned. I advised her to check with her therapist??regarding her medication and??to see if she needs any additional counseling. Return visit will be in 6 months with repeated lab on return. Advanced Care Planning 09/03/2019- Not addressed Pain Scale on Today's Visit 0 Pain Plan on Today's Visit No pain plan indicated for today Smoking Status Smoking Tobacco : Never smoker; Smokeless Tobacco : none found; Vaping : none found Depression Screening Tool Status Was screened; Outcome positive: Yes; Screening Date: 09/11/2022; Plan: Referral to a practitioner who is qualified to diagnose and treat depression History of Present Illness Mario is a [...] studies performed subsequently with the following results: - 09/2012- PCR transcript level at 2.1% (5.5% on international scale) - 11/2012- PCR transcript level at 0.04% (0.1% on international scale) -09/2013 no detectable transcripts -03/2014 no detectable transcripts -11/03/14 no detectable transcripts -05/04/15 no detectable transcripts -11/22/15 no detectable transcripts -08/29/16 no detectable transcripts -02/27/17 no detectable transcripts -06/05/17 no detectable transcripts -09/12/17 no detectable transcripts -06/20/18 no detectable transcripts -09/17/18 no detectable transcripts -12/24/18 no detectable transcripts -03/27/19 no detectable transcripts -05/27/19 no detectable transcripts -02/10/20 no detectable transcripts -08/30/2020 no detectable transcript?? -03/06/2021 no detectable transcripts?? -08/23/2021??no detectable transcripts?? -03/13/2022 no detectable transcripts. Interval History She is here today for follow-up??transferring care to my practice.?? She has been on??Nilotinib without side effects. Her ?recently and she is having??grief and depression, she does have a therapist and is on antidepression medications. She has no side effect of the medication.?? She does have enough support. CBC from today was reviewed and is unremarkable. ??Last transcripts from February were negative. She gets the drug??well covered. Review of Systems Remaining 14 point comprehensive [...] resolved. Current Medications Medication List Name Date Calcium Carbonate Oral 12/31/2018 Atorvastatin Oral 03/13/2022 Magnesium Gluconate Oral 12/31/2018 Naproxen Sodium Oral 12/31/2018 Ondansetron Oral 12/31/2018 Sumatriptan Oral 100 mg 04/02/2019 Bupropion hcl, po solid SR 06/26/2013 Montelukast Oral 08/30/2020 Tasigna (Nilotinib Oral) 04/23/2022 Fexofenadine Oral 12/31/2018 Omeprazole Oral Delayed Release Capsule 12/31/2018 Pristiq (Desvenlafaxine Oral 24 hr Tab) 09/11/2022 Propranolol Oral 24 hr Cap 12/31/2018 Allergies imatinib mesylate and topiramate Family History Her father was diagnosed with lymphoma at age 77. Her mother was diagnosed with colon cancer at age58. There is a history of breast cancer in a maternal grandmother at age 81 and colon cancer in a maternal grandfather who is at age 89. Both paternal grandparents are without a history of malignancy. She has 2 younger brothers but no sisters. She has 2 sons and 1 daughter along with 2 grandchildren. 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 She does not use tobacco products. She is widowedsince August 2022. ?? Vital Signs Blood pressure: 114/76, Pulse: 71, Temperature: 98.2 F, Respirations: 16, O2 sat: 98%, Pain Scale: 0, Height: 66.5 in, Weight: 176.2 lb, BSA: 1.91, BMI: 28.01 kg/m2 Covid-19 vaccine ([employer]) (03/13/2022), Patient declined/rejected; Flu vaccine - Adult (04/02/2019); Flu vaccine - Adult (03/06/2021) Performance Status ECOG or Karnofsky ECOG: Not recorded Karnofsky:?90% Able to carry on normal activity; minor signs or symptoms of disease. (Date: 09/11/2022) Physical Exam HEENT: ??Normocephalic atraumatic. EOMI. ??External exams normal.?? Neck: ??Supple, without masses, thyromegaly, lymphadenopathy or tenderness. ?? LUNGS: ??Normal respiratory effort. ??Lungs are clear with good breath sounds, no wheezing or crackles. Heart: ??RR without murmurs, rubs, or gallops. ?? ABDOMEN: ??Soft, nontender without guarding rebound or masses, bowel sound present, no organomegaly.?? EXTREMITIES: ??No cyanosis, clubbing or edema.?? LYMPHATIC: no lymphadenopathy in cervical, supraclavicular, axillary, epitochlear or inguinal areas. SKIN: Limited exam shows no petechia, ecchymoses or rash. NEUROLOGICAL: Grossly intact. Genetics/Molecular/Biomarkers * Chronic myeloid leukemia, disease (disorder) ( Stage Date: 06/24/2012, Stage Chronic Phase Date of Dx:05/2012 Disease Status: No evidence of disease; [id number] Mutation: Unknown; t(9,22) at Diagnosis: Yes; First record:06/24/2012 Last record:12/31/2018 Other Migrated ICD10: C92.11 ) Additional Labs, Imaging, and Other Studies Lab Results CBC LabResults 09/11/2022 03/13/2022 08/23/2021 03/06/2021 02/10/2020 CBC WBC x 10^3/uL 5.7 7.7 4.5 5.8 4.7 4.6 RBC x 10^6/uL 4.38 4.58 4.34 4.42 4.48 4.52 NRBC % /100 wbc 0.0 0.0 0.0 0.0 0.0 0.0 HGB g/dL 13.8 14.6 13.8 14.0 14.5 14.4 HCT % 42.8 45.2 41.0 41.8 43.5 42.6 MCV fL 97.7 98.7 94.5 94.6 97.1 94.2 MCH pg 31.5 31.9 31.8 31.7 32.4 31.9 MCHC g/dL 32.2 32.3 33.7 33.5 33.3 33.8 RDW % 12.70 12.90 12.80 12.20 12.30 12.60 PLT x 10^3/uL 167 160 150 174 153 158 MPV fL 9.3 (L) 9.7 9.5 9.6 9.9 9.8 Augustus % 64.2 69.5 53.6 61.8 56.8 54.6 LY % 24.0 19.5 32.2 26.9 29.6 33.2 MO % 9.9 9.4 11.3 9.4 11.6 10.4 EO % 1.2 0.9 1.8 1.2 1.1 0.9 BA % 0.5 0.4 0.9 0.5 0.9 0.7 IG % 0.2 0.3 0.2 0.2 0.0 0.2 Augustus # (ANC) x 10^3/uL 3.7 5.3 2.4 3.6 2.7 2.5 LY # x 10^3/uL 1.4 1.5 1.5 1.6 1.4 1.5 MO # x 10^3/uL 0.6 0.7 0.5 0.6 0.5 0.5 EO # x 10^3/uL 0.1 0.1 0.1 0.1 0.1 0.0 BA # x 10^3/uL 0.0 0.0 0.0 0.0 0.0 0.0 IG # x 10^3/uL 0.01 0.02 0.01 0.01 0.00 0.01 Chemistries LabResults 09/11/2022 03/13/2022 08/23/2021 03/06/2021 02/10/2020 Chemistries Glucose mg/dL 111 100 98 92 101 BUN mg/dL 13 16 12 26 (H) 17 Creatinine mg/dL 1.25 (H) 0.99 1.11 1.24 (H) 1.09 Sodium mmol/L 144 144 142 142 140 Potassium mmol/L 4.2 4.4 4.5 4.4 4.9 Chloride mmol/L 107 108 107 110 109 CO2 mmol/L 24 25 27 27 24 Calcium mg/dL 10.5 (H) 9.8 10.3 10.0 10.0 Albumin g/dL 4.5 4.4 4.8 4.6 4.9 Total protein g/dL 6.7 6.5 7.4 6.6 6.9 Bilirubin, total mg/dL 0.8 0.7 0.7 0.4 0.8 Alkaline phosphatase U/L 103 91 107 89 92 AST/SGOT U/L 23 22 24 20 22 ALT/SGPT U/L 19 19 20 14 18 GFR estimate mL/min/1.73m2 46.9 (L) 62.3 51.3 (L) 45.0 (L) 52.8 (L) ? Surveys/Consents/Other Discussions Goldie Jimenez MD CC: Gabriella Marte PA-C FAX Electronically signed by Goldie Jimenez MD 09/11/2022 13:00 CDT
--- OUTSIDE RECORDS SUMMARY | 2025-02-08 13:05 | XMS_ITS ---
Author Name Interface, B0Yctusdr lity Address [address] [address] [facility] Address [address] [address] Allergies and Adverse Reactions Medication/Group Name Reaction [...] 03/22/2023 APPOINTMENT TREATMENT 2 HR 03/13/2023 APPOINTMENT [facility] FOLLOW UP 20 MIN 03/13/2023 APPOINTMENT LAB [...] 09/03/2019 APPOINTMENT MICHEAL - 11 - 3 [facility] 09/03/2019 APPOINTMENT PHONE - 11 3 MO RC - PHONE VISIT 06/01/2019 APPOINTMENT RC - 11 RC - 2 [facility] 06/01/2019 APPOINTMENT MICHEAL - 11 - 2 [facility] 05/27/2019 APPOINTMENT LAB - [...] K/uL 3.0 8.9 6.[address] [facility] [place], [address] [place] [address] 210 [facility] [phone] 0 Phone: () - 05/27 CBC w/ auto diff HGB g/dL 11.3 15.2 13.8 FINAL Jhon bearden [facility], [address] [place] [address] 210 [facility] [phone] 0 Phone: () - 05/27 CBC w/ auto diff PLT K/uL 113.0 364.0 157 FINAL Jhon bearden [facility], [address] [place] [address] 210 [facility] [phone] 0 Phone: () - 05/27 CBC w/ auto diff Augustus # (ANC) K/uL 1.6 6.6 4.1 FINAL Jhon bearden [facility], [address] [place] [address] 210 [place] [phone] 0 Phone: () - 05/27 CBC w/ auto diff Augustus % % 43.0 74.0 63.8 FINAL Jhon bearden [facility], [address] [place] [address] 210 [place] [phone] 0 Phone: () - 05/27 CBC w/ auto diff IG % % 0.0 0.5 0.3 FINAL Jhon bearden [address] 210 [place] [phone] 0 Phone: () - 05/27 CBC w/ auto diff IG # K/uL 0.0 0.03 0.02 FINAL Jhon bearden [facility] a [address] 210 [facility] [id number] 0 Phone: () - 05/27 CBC w/ auto diff LY % % 14.0 41.0 26.6 FINAL Jhon Fitzgeraldot a Oncology - [place], [address] [place] [address] 210 [facility] [id number] 0 Phone: () - 05/27 CBC w/ auto diff MO % % 6.0 15.0 8.7 FINAL Jhon [place]arden [place] [facility] [place], [address] [place] [address] 210 [facility] [phone] 0 Phone: () - 05/27 CBC w/ auto diff EO % % 0.0 7.0 0.3 FINAL Jhon [place]arden [place] [facility] - [address] [phone] 0 Phone: () - 05/27 CBC w/ auto diff BA % % 0.0 2.0 0.3 FINAL Jhon bearden [place] [facility] [place], [address] [place] [address] 210 [facility] [phone] 0 Phone: () - 05/27 CBC w/ auto diff LY # K/uL 0.4 3.6 1.7 FINAL Jhon Fitzgeraldot a On[facility] - [place], [address] [place] [address] 210 [facility] [phone] 0 Phone: () - 05/27 CBC w/ auto diff MO # K/uL 0.2 1.3 0.[address] [facility] [place], [address] [place] [address] 210 [facility] [phone] 0 Phone: () - 05/27 CBC w/ auto diff EO # K/uL 0.0 0.6 0.[address] [facility] - [address] 210 [facility] [id number] 0 Phone: () - 05/27 CBC w/ auto diff BA # K/uL 0.0 0.2 0.[address] [facility] [address] [id number] 0 Phone: () - 05/27 CBC w/ auto diff NRBC % #/100W BC 0.0 0.2 0.0 FINAL Jhon bearden [address] 210 [facility] [phone] 0 Phone: () - 05/27 CBC w/ auto diff RBC M/uL 3.9 5.1 4.29 FINAL Jhon bearden [address] 210 [facility] [phone] 0 Phone: () - 05/27 CBC w/ auto diff HCT % 35.0 48.0 41.0 FINAL Jhon bearden [address] 210 [facility] [phone] 0 Phone: () - 05/27 CBC w/ auto diff MCV fL 80.0 104.0 95.6 FINAL Jhon bearden [address] 210 [facility] [id number] 0 Phone: () - 05/27 CBC w/ auto diff MCH pg 26.0 35.0 32.2 FINAL Jhon bearden [address] 210 [facility] [phone] 0 Phone: () - 05/27 CBC w/ auto diff MCHC g/dL 30.0 35.0 33.7 FINAL Jhon bearden [address] 210 [facility] [id number] 0 Phone: () - 05/27 CBC w/ auto diff MPV fL 9.5 13.4 9.8 FINAL Jhon bearden [address] 210 [facility] [phone] 0 Phone: () - 05/27 CBC w/ auto diff RDW % 11.4 16.1 12.80 FINAL Jhon bearden [address] 210 [facility] [phone] 0 Phone: () - 05/27 BCR-A BL by PCR quant itati ve B2a2 trans cript , % % Comment <0.0032 %(sensiti vity limit of assay) FINAL Jhon bearden 05/27 BCR-A BL by PCR quant itati ve B3a2 trans cript , % % Comment <0.0032 %(sensiti vity limit of assay) FINAL [facility] [address] 05/27 BCR-A BL by PCR quant itati ve E1a2 trans cript , % % Comment <0.0032 %(sensiti vity limit of assay) FINAL [facility] bearden [place] [address] 05/27 BCR-A BL by PCR quant itati ve BCR/A BL inter preta tion Comment NEGATIVE for the BCR-ABL1 e1a2 (p190), e13a2 (b2a2, p210) and e14a2(b3a 2, p210) fusion transcrip ts. These results do not rule out thepresen ce of rare BCR-ABL1 transcrip ts not detected by this assay. FINAL Jhon bearden [place] [address] 05/27 BCR-A BL by PCR quant itati ve María ics [facility] rev w Comment Citlalli Millan, PhD, [facility], Molecular [facility]eticsCap[facility] for Molecular Biology and Pathology [facility], [phone] FINAL [facility] bearden [facility] [address] 05/27 BCR-A BL [...] indicated . FINAL Jhon Keshawn suleiman Ruiz [facility] [address] 05/27 BCR-A BL by PCR quant itati ve BCR/A BL metho dolog y Comment Total RNA is isolated from the sample and subject to a real-time ,reverse transcrip tase polymeras e chain reaction (RT-PCR). The PCRprimer s and probes are specific for BCR-ABL1 e13a2, e14a2 and [id number] n transcrip ts. The ABL1 transcrip t [...] Blaise MANDEL, et al. Blood 2010; 116: [id number]. 3. NCCN Clinical Practice Guideline s in Oncology, ChronicMy eloid Leukemia. V2. 2017.Perf ormed at: 01 - [facility] [id number] [facility], [place], [place] [id number] Manager Integrated: Cecilia bearden MD, Phone: [phone] d at: - [facility] [id number] [facility], [facility], [place] [id number] Manager Integrated: Cecilia bearden MD, Phone: [phone] FINAL Lillydavid RamiresChester [facility]St[facility] [address] 05/27 CMP Album in g/dL 3.2 5.2 4.6 FINAL Lillydavid bearden [address] [phone] 0 Phone: () - 05/27 CMP Alkal ine phosp hatas e U/L 46.0 116.0 93 FINAL Jhon bearden [address] [id number] 0 Phone: () - 05/27 CMP ALT/S GPT U/L 7.0 40.0 21 FINAL Jhon bearden [address] [id number] 0 Phone: () - 05/27 CMP AST/S GOT U/L 13.0 40.0 24 FINAL Jhon bearden [address] [id number] 0 Phone: () - 05/27 CMP BUN mg/dL 9.0 23.0 11 FINAL Jhon bearden [address] [phone] 0 Phone: () - 05/27 CMP Calci um mg/dL 8.7 10.4 9.5 FINAL Jhon bearden [address] [id number] 0 Phone: () - 05/27 CMP Chlor rakan mmol/L 96.0 114.0 108 FINAL Jhon bearden [address] [id number] 0 Phone: () - 05/27 CMP CO2 mmol/L 20.0 31.0 26 FINAL Jhon bearden [address] [phone] 0 Phone: () - 05/27 CMP Creat inine mg/dL 0.5 1.2 0.98 FINAL Jhon bearden [address] [id number] 0 Phone: () - 05/27 CMP GFR estim ate ml/min /1.73m ^2 60.4 GFR is calculate d using the CKD-EPI equation. 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 02/09 CMP Album in g/dL 3.2 5.2 4.9 FINAL [facility] [address] [phone] 0 Phone: () - 02/09 CMP Alkal ine phosp hatas e U/L 46.0 116.0 92 FINAL [facility] [address] [id number] 0 Phone: () - 02/09 CMP ALT/S GPT U/L 7.0 40.0 18 FINAL [facility] [place] [phone] 0 Phone: () - 02/09 CMP AST/S GOT U/L 13.0 40.0 22 FINAL Kennedy muñoz [address] [id number] 0 Phone: () - 02/09 CMP BUN mg/dL 9.0 23.0 17 FINAL Kennedy Carmona[address] [id number] 0 Phone: () - 02/09 CMP Calci um mg/dL 8.7 10.4 10.0 FINAL [facility] [address] [id number] 0 Phone: () - 02/09 CMP Chlor rakan mmol/L 96.0 114.0 109 FINAL Kennedy Carmona[address] [id number] 0 Phone: () - 02/09 CMP CO2 mmol/L 20.0 31.0 24 FINAL Kennedy Carmona[address] [id number] 0 Phone: () - 02/09 CMP Creat inine mg/dL 0.5 1.2 1.09 FINAL Kennedy Carmona[address] [id number] 0 Phone: () - 02/09 CMP GFR estim ate ml/min /1.73m ^2 52.8 Low GFR is calculate d using the CKD-EPI equation. FINAL Kennedy Carmona[address] [phone] 0 Phone: () - 02/09 CMP Gluco se mg/dL 73.0 126.0 101 FINAL Kennedy Carmona[address] [id number] 0 Phone: () - 02/09 CMP Potas sium mmol/L 3.5 5.1 4.9 FINAL [place] [address] [place] [id number] 0 Phone: () - 02/09 CMP Sodiu m mmol/L 136.0 145.0 140 FINAL [facility] Carmonaot a Oncology [address] [id number] 0 Phone: () - 02/09 CMP Bilir ubin, total mg/dL 0.3 1.2 0.8 FINAL Kennedy Carmonaot a [address] [id number] 0 Phone: () - 02/09 CMP Total prote in g/dL 5.7 8.2 6.9 FINAL [facility] a [address] [id number] 0 Phone: () - 02/09 BCR-A BL by PCR quant itati ve BCR-A BL1, CML/A LL, PCR, QUANT Note TESTS RESULT FLAG UNITS REF RANGE LAB------ --------- --------- --------- --------- --------- --------- e13a2 (b2a2) ytler... Note % 01<0.0032 %(sensiti vity limit of [...] 01Eddie Webb MD, PhDDirect or, Molecular OncologyL [facility] for Molecular Biology and Pathology [place], [place] [address] [phone] nd 01This assay can detect three [...] are specific for BCR-ABL1 e13a2, e14a2 and [id number] n transcrip ts. The ABL1 transcrip t [...] --------- --------- -----Perf ormed at:01 MENDES [facility] [id number] [employer] Luis Miguel [place], [place] [address] 3Achinyereurbano Espinalchinyere [facility], Phone: [phone] TG [facility] [id number] [employer], [place] [address] 0Yingurbano Espinalchinyere [facility], Phone: Perfor med at: - [facility] [id number] [employer], [place], [place] [id number] Manager Integrated: Eddie Webb [facility], Phone: [phone] FINAL Kennedy Ungmichaelub 02/09 CBC w/ auto diff WBC K/uL 3.0 8.9 4.6 FINAL Kennedy Doloresub [facility] a [address] 210 [facility] [id number] 0 Phone: () - 02/09 CBC w/ auto diff HGB g/dL 11.3 15.2 14.4 FINAL Kennedy Carmona a [address] 210 [facility] [id number] 0 Phone: () - 02/09 CBC w/ auto diff PLT K/uL 113.0 364.0 158 FINAL Kennedy Carmonaot a [address] 210 [place] [phone] 0 Phone: () - 02/09 CBC w/ auto diff Augustus # (ANC) K/uL 1.6 6.6 2.5 FINAL Kennedy Carmonaot a [address] 210 [place] [phone] 0 Phone: () - 02/09 CBC w/ auto diff Augustus % % 43.0 74.0 54.6 FINAL Kennedy Carmonaot a [address] 210 [place] [phone] 0 Phone: () - 02/09 CBC w/ auto diff IG % % 0.0 0.5 0.2 FINAL Kennedyeddie Bernalub [facility] a [address] 210 [facility] [phone] 0 Phone: () - 02/09 CBC w/ auto diff IG # K/uL 0.0 0.03 0.01 FINAL [place] Unglaub [place] [facility] [place], [address] [place] [address] 210 [place] [phone] 0 Phone: () - 02/09 CBC w/ auto diff LY % % 14.0 41.0 33.2 FINAL Kennedy Unglaub [place] [facility] [place], [address] [place] [address] 210 [place] [phone] 0 Phone: () - 02/09 CBC w/ auto diff MO % % 6.0 15.0 10.4 FINAL Kennedy Unglaub [place] [facility] [place], [address] [place] [address] 210 [place] [id number] 0 Phone: () - 02/09 CBC w/ auto diff EO % % 0.0 7.0 0.9 FINAL Kennedy Unglaub [place] [facility] [place], [address] [place] [address] 210 [place] [id number] 0 Phone: () - 02/09 CBC w/ auto diff BA % % 0.0 2.0 0.7 FINAL Kennedy Unglaub [place] [facility] [place], [address] [place] [address] 210 [place] [phone] 0 Phone: () - 02/09 CBC w/ auto diff LY # K/uL 0.4 3.6 1.5 FINAL Kennedy Unglaub [place] [facility] [place], [address] [place] [address] 210 [place] [phone] 0 Phone: () - 02/09 CBC w/ auto diff MO # K/uL 0.2 1.3 0.5 FINAL Kennedy Unglaub [place] [facility] [place], [address] [place] [address] 210 [place] [id number] 0 Phone: () - 02/09 CBC w/ auto diff EO # K/uL 0.0 0.6 0.0 FINAL Kennedy Unglaub [place] [facility] [place], [address] [place] [address] 210 [place] [id number] 0 Phone: () - 02/09 CBC w/ auto diff BA # K/uL 0.0 0.2 0.0 FINAL Kennedy Unglaub [place] [facility] [place], [address] [place] [address] 210 [facility] [id number] 0 Phone: () - 02/09 CBC w/ auto diff NRBC % #/100W BC 0.0 0.2 0.0 FINAL Kennedy Carmona toni [facility], [address] [place] [address] 210 [facility] [id number] 0 Phone: () - 02/09 CBC w/ auto diff RBC M/uL 3.9 5.1 4.52 FINAL [place] [facility], [address] [place] [address] 210 [facility] [phone] 0 Phone: () - 02/09 CBC w/ auto diff HCT % 35.0 48.0 42.6 FINAL [place] [facility], [address] [place] [address] 210 [facility] [id number] 0 Phone: () - 02/09 CBC w/ auto diff MCV fL 80.0 104.0 94.2 FINAL [facility] [place] [address] 210 [facility] [id number] 0 Phone: () - 02/09 CBC w/ auto diff MCH pg 26.0 35.0 31.9 FINAL Kennedy Carmona toni [facility], [address] [place] [address] 210 [place] [phone] 0 Phone: () - 02/09 CBC w/ auto diff MCHC g/dL 30.0 35.0 33.8 FINAL Kennedy Carmona[address] 210 [facility] [id number] 0 Phone: () - 02/09 CBC w/ auto diff MPV fL 9.5 13.4 9.8 FINAL [place] [address] 210 [facility] [id number] 0 Phone: () - 02/09 CBC w/ auto diff RDW % 11.4 16.1 12.60 FINAL [place] West [facility] toni [address] 210 [facility] [phone] 0 Phone: () - 08/30 CBC w/ auto diff WBC K/uL 3.0 8.9 4.7 FINAL [facility] [place], [address] [place] [address] 210 [place] [id number] 0 Phone: () - 08/30 CBC w/ auto diff HGB g/dL 11.3 15.2 14.5 FINAL [facility] [place], [address] [place] [address] 210 [place] [id number] 0 Phone: () - 08/30 CBC w/ auto diff PLT K/uL 113.0 364.0 153 FINAL [facility] [place], [address] [place] [address] 210 [facility] [id number] 0 Phone: () - 08/30 CBC w/ auto diff Augustus # (ANC) K/uL 1.6 6.6 2.7 FINAL [facility] [place], [address] [place] [address] 210 [facility] [id number] 0 Phone: () - 08/30 CBC w/ auto diff Augustus % % 43.0 74.0 56.8 FINAL [facility] [place], [address] [place] [address] 210 [facility] [id number] 0 Phone: () - 08/30 CBC w/ auto diff IG % % 0.0 0.5 0.0 FINAL [facility] [place], [address] [place] [address] 210 [facility] [id number] 0 Phone: () - 08/30 CBC w/ auto diff IG # K/uL 0.0 0.03 0.00 FINAL [facility] [place], [address] [place] [address] 210 [place] [phone] 0 Phone: () - 08/30 CBC w/ auto diff LY % % 14.0 41.0 29.6 FINAL Ruiz Raya [facility], [address] [place] [address] 210 [place] [phone] 0 Phone: () - 08/30 CBC w/ auto diff MO % % 6.0 15.0 11.6 FINAL Riuz Raya [facility], [address] [place] [address] 210 [place] [id number] 0 Phone: () - 08/30 CBC w/ auto diff EO % % 0.0 7.0 1.1 FINAL [facility] [place], [address] [place] [address] 210 [facility] [id number] 0 Phone: () - 08/30 CBC w/ auto diff BA % % 0.0 2.0 0.9 FINAL [facility] [place], [address] [place] [address] 210 [facility] [id number] 0 Phone: () - 08/30 CBC w/ auto diff LY # K/uL 0.4 3.6 1.4 FINAL [facility] [place], [address] [place] [address] 210 [facility] [id number] 0 Phone: () - 08/30 CBC w/ auto diff MO # K/uL 0.2 1.3 0.5 FINAL [facility] [place], [address] [place] [address] 210 [facility] [id number] 0 Phone: () - 08/30 CBC w/ auto diff EO # K/uL 0.0 0.6 0.1 FINAL [facility] [place], [address] [place] [address] 210 [facility] [id number] 0 Phone: () - 08/30 CBC w/ auto diff BA # K/uL 0.0 0.2 0.0 FINAL [facility] [place], [address] [place] [address] 210 [facility] [id number] 0 Phone: () - 08/30 CBC w/ auto diff NRBC % #/100W BC 0.0 0.2 0.0 FINAL [facility] [place], [address] [place] [address] 210 [facility] [id number] 0 Phone: () - 08/30 CBC w/ auto diff RBC M/uL 3.9 5.1 4.48 FINAL [facility] [place], [address] [place] [address] 210 [facility] [id number] 0 Phone: () - 08/30 CBC w/ auto diff HCT % 35.0 48.0 43.5 FINAL Ruiz muñoz [facility], [address] [place] [address] 210 [facility] [id number] 0 Phone: () - 08/30 CBC w/ auto diff MCV fL 80.0 104.0 97.1 FINAL Ruiz muñoz [facility], [address] [place] [address] 210 [facility] [id number] 0 Phone: () - 08/30 CBC w/ auto diff MCH pg 26.0 35.0 32.4 FINAL Ruiz muñoz [facility], [address] [place] [address] 210 [facility] [id number] 0 Phone: () - 08/30 CBC w/ auto diff MCHC g/dL 30.0 35.0 33.3 FINAL Ruiz muñoz [facility], [address] [place] [address] 210 [facility] [id number] 0 Phone: () - 08/30 CBC w/ auto diff MPV fL 9.5 13.4 9.9 FINAL Ruiz muñoz [facility], [address] [place] [address] 210 [facility] [id number] 0 Phone: () - 08/30 CBC w/ auto diff RDW % 11.4 16.1 12.30 FINAL Ruiz muñoz [facility], [address] [place] [address] 210 [facility] [phone] 0 Phone: () - 08/30 CMP Album in g/dL 3.2 5.2 4.6 FINAL Ruiz Carmona[address] [id number] 0 Phone: () - 08/30 CMP Alkal ine phosp hatas e U/L 46.0 116.0 89 FINAL Ruiz Raya [address] [id number] 0 Phone: () - 08/30 CMP ALT/S GPT U/L 7.0 40.0 14 FINAL Ruiz Carmona[address] [id number] 0 Phone: () - 08/30 CMP AST/S GOT U/L 13.0 40.0 20 FINAL Ruiz [place] [address] [id number] 0 Phone: () - 08/30 CMP BUN mg/dL 9.0 23.0 26 High FINAL Ruiz Carmona[address] [id number] 0 Phone: () - 08/30 CMP Calci um mg/dL 8.7 10.4 10.0 FINAL Ruiz Carmona[address] [id number] 0 Phone: () - 08/30 CMP Chlor rakan mmol/L 96.0 114.0 110 FINAL Ruiz Raya [address] [id number] 0 Phone: () - 08/30 CMP CO2 mmol/L 20.0 31.0 27 FINAL Ruiz Raya [address] [id number] 0 Phone: () - 08/30 CMP Creat inine mg/dL 0.5 1.2 1.24 High FINAL Ruiz Raya [address] [id number] 0 Phone: () - 08/30 CMP GFR estim ate ml/min /1.73m ^2 45.0 Low GFR is calculate d using the CKD-EPI equation. FINAL Ruiz Carmona[address] [phone] 0 Phone: () - 08/30 CMP Gluco se mg/dL 73.0 126.0 92 FINAL Ruiz Raya [address] [id number] 0 Phone: () - 08/30 CMP Potas sium mmol/L 3.5 5.1 4.4 FINAL Ruiz Carmona[address] [id number] 0 Phone: () - 08/30 CMP Sodiu m mmol/L 136.0 145.0 142 FINAL Ruiz Raya [facility] - [address] [id number] 0 Phone: () - 08/30 CMP Bilir ubin, total mg/dL 0.3 1.2 0.4 FINAL Ruiz Raya [address] [id number] 0 Phone: () - 08/30 CMP Total prote in g/dL 5.7 8.2 6.6 FINAL Ruiz Raya [address] [id number] 0 Phone: () - 08/30 BCR-A BL [...] Anna Burgess, PhD, FACMGDire ctor, Molecular OncologyL [facility] for Molecular Biology and Pathology [place], [place] 2[address] [phone] davis 01This assay can detect three [...] are specific for BCR-ABL1 e13a2, e14a2 and [id number] n transcrip ts. The ABL1 transcrip t [...] --------- --------- -----Perf ormed at:01 MENDES [facility] [id number] [employer] [place] [address] 3Amikayla Webb [facility], Phone: [phone] [facility] [id number] [place] [address] 0Eddie Webb [facility], Phone: Perfor [facility] at: 01 - [facility] [id number] Shar [place], [place] [id number] Manager Integrated: Eddie Webb [facility], Phone: [phone] FINAL Ruiz Raya 03/06 BCR-A BL [...] Note 01Petey Burgess, PhD, FACDire ctor, Molecular OncologyChildren[facility] for [facility] Biology and Pathology [place], [place] [address] [phone] nd 01This assay can detect three [...] are specific for BCR-ABL1 e13a2, e14a2 and [id number] n transcrip ts. The ABL1 transcrip t [...] --------- --------- -----Perf ormed at:01 MEND[address] [facility] [id number] [employer] [place] [address] 3Amikayla Webb [facility], Phone: [phone] TG [facility] [id number] [place] [address] Edis Webb [facility], Phone: Perfor med at: 01 - [facility] [id number] [place]YT [place], [place] [id number] Manager Integrated: Eddie Webb [facility], Phone: [phone] FINAL Ruiz Raya 03/06 CBC w/ auto diff WBC K/uL 3.0 8.9 5.8 FINAL Ruiz Terrazas [facility], [address] [place] [address] [id number] 0 Phone: () - 03/06 CBC w/ auto diff HGB g/dL 11.3 15.2 14.0 FINAL Ruiz Carmona[address] [id number] 0 Phone: () - 03/06 CBC w/ auto diff PLT K/uL 113.0 364.0 174 FINAL Ruiz Carmona[address] [id number] 0 Phone: () - 03/06 CBC w/ auto diff Augustus # (ANC) K/uL 1.6 6.6 3.6 FINAL Ruiz Carmona[address] [phone] 0 Phone: () - 03/06 CBC w/ auto diff Augustus % % 43.0 74.0 61.8 FINAL Ruiz Terrazas [address] [id number] 0 Phone: () - 03/06 CBC w/ auto diff IG % % 0.0 0.5 0.2 FINAL Ruiz Carmona[address] [id number] 0 Phone: () - 03/06 CBC w/ auto diff IG # K/uL 0.0 0.03 0.01 FINAL Ruiz Carmona[address] [id number] 0 Phone: () - 03/06 CBC w/ auto diff LY % % 14.0 41.0 26.9 FINAL Ruiz Carmona[address] [id number] 0 Phone: () - 10/18 /2021 CBC w/ auto diff MO % % 6.0 15.0 9.4 FINAL [facility] [place], [address] [place] [address] 210 [place] [phone] 0 Phone: () - 03/06 CBC w/ auto diff EO % % 0.0 7.0 1.2 FINAL Ruiz Terrazas [facility] - [place], [address] [place] [address] 210 [place] [phone] 0 Phone: () - 03/06 CBC w/ auto diff BA % % 0.0 2.0 0.5 FINAL [facility] [place], [address] [place] [address] 210 [place] [id number] 0 Phone: () - 03/06 CBC w/ auto diff LY # K/uL 0.4 3.6 1.6 FINAL [facility] [place] [address] [place] [address] 210 [place] [phone] 0 Phone: () - 03/06 CBC w/ auto diff MO # K/uL 0.2 1.3 0.6 FINAL [facility] [place] [address] [place] [address] 210 [place] [id number] 0 Phone: () - 03/06 CBC w/ auto diff EO # K/uL 0.0 0.6 0.1 FINAL Ruiz Carmona toni [facility], [address] [place] [address] 210 [place] [id number] 0 Phone: () - 03/06 CBC w/ auto diff BA # K/uL 0.0 0.2 0.0 FINAL [facility] - [place], [address] [place] [address] [address] [place] [phone] 0 Phone: () - 03/06 CBC w/ auto diff NRBC % #/100W BC 0.0 0.2 0.0 FINAL [facility], [address] [place] [address] [address] [place] [phone] 0 Phone: () - 03/06 CBC w/ auto diff RBC M/uL 3.9 5.1 4.42 FINAL [facility], [address] [place] [address] 210 [facility] [phone] 0 Phone: () - 03/06 CBC w/ auto diff HCT % 35.0 48.0 41.8 FINAL [facility] [place] [address] [place] [address] 210 [facility] [phone] 0 Phone: () - 03/06 CBC w/ auto diff MCV fL 80.0 104.0 94.6 FINAL [facility] [place], [address] [place] [address] 210 [facility] [phone] 0 Phone: () - 03/06 CBC w/ auto diff MCH pg 26.0 35.0 31.7 FINAL [facility] [place] [address] [place] [address] 210 [facility] [phone] 0 Phone: () - 03/06 CBC w/ auto diff MCHC g/dL 30.0 35.0 33.5 FINAL [facility] [place] [address] [place] [address] 210 [facility] [phone] 0 Phone: () - 03/06 CBC w/ auto diff MPV fL 9.5 13.4 9.6 FINAL [facility] [place] [address] [place] [address] 210 [facility] [phone] 0 Phone: () - 03/06 CBC w/ auto diff RDW % 11.4 16.1 12.20 FINAL [facility] [place] [address] [place] [address] 210 [facility] [id number] 0 Phone: () - 03/06 CMP Album in g/dL 3.2 5.2 4.8 FINAL [facility], [address] [facility] [address] [place] [address] [place] [id number] 0 Phone: () - 03/06 CMP Alkal ine phosp hatas e U/L 46.0 116.0 107 FINAL Ruiz Raya [facility], [address] [facility] [address] [place] [phone] 0 Phone: () - 03/06 CMP ALT/S GPT U/L 7.0 40.0 20 FINAL Ruiz Rousey [facility] [place], [address] [phone] 0 Phone: () - 03/06 CMP AST/S GOT U/L 13.0 40.0 24 FINAL Ruiz Terrazas [facility] [address] [phone] 0 Phone: () - 03/06 CMP BUN mg/dL 9.0 23.0 12 FINAL [place] [address] [id number] 0 Phone: () - 03/06 CMP Calci um mg/dL 8.7 10.4 10.3 FINAL [place] [address] [phone] 0 Phone: () - 03/06 CMP Chlor rakan mmol/L 96.0 114.0 107 FINAL Ruiz Raya [place] [address] [phone] 0 Phone: () - 03/06 CMP CO2 [...] 96 hour stability window. FINAL Ruiz Terrazas [place] [address] [phone] 0 Phone: () - 03/06 CMP Creat inine mg/dL 0.5 1.2 1.11 FINAL Ruiz Raya [place] [address] [phone] 0 Phone: () - 03/06 CMP GFR estim ate ml/min /1.73m ^2 51.3 Low GFR is calculate d using the CKD-EPI equation. FINAL [place] [address] [id number] 0 Phone: () - 03/06 CMP Gluco se mg/dL 73.0 126.0 98 FINAL [facility], [address] [facility] [phone] 0 Phone: () - 03/06 CMP Potas sium mmol/L 3.5 5.1 4.5 FINAL [facility], [address] [facility] [phone] 0 Phone: () - 03/06 CMP Sodiu m mmol/L 136.0 145.0 142 FINAL [facility], [address] [facility] [id number] 0 Phone: () - 03/06 CMP Bilir ubin, total mg/dL 0.3 1.2 0.7 FINAL [facility], [address] [facility] [id number] 0 Phone: () - 03/06 CMP Total prote in g/dL 5.7 8.2 7.4 FINAL [facility], [address] [facility] [id number] 0 Phone: () - 08/23 BCR/A BL1, p210 Resul t see interpr etation FINAL [facility] 08/23 Speci men Type EDTA Whole Blood FINAL [facility] 08/23 Final Diagn osis: SEE COMMENT S [...] all possible fusionfor ms. Please contact the [facility] or[facility] at [phone] with questions or if additiona ltesting is required. See the [facility] Laborator iesInterp retive Handbook for method details.T [...] its performan ce character isticsdet ermined by [facility] in a manner consisten t with Navdeep rements. This test has not been cleared or approved bythe U.S. Food and Drug Administr ation.Jane t Performed by:[address] [id number] Director: Michael Reid M.D. Ph.D.; CLIA# [id number] 2 FINAL Kennedy Ungmichaelub 08/23 CBC w/ auto diff WBC K/uL 3.0 8.9 4.5 FINAL Kennedy Doloresub [facility] [place], [address] [place] [address] 210 [facility] [phone] 0 Phone: () - 08/23 CBC w/ auto diff HGB g/dL 11.3 15.2 13.8 FINAL Kennedy Bernalub [facility] [place], [address] [place] [address] 210 [facility] [phone] 0 Phone: () - 08/23 CBC w/ auto diff PLT K/uL 113.0 364.0 150 FINAL Kennedy Carmonaot a [facility], [address] [place] [address] 210 [facility] [id number] 0 Phone: () - 08/23 CBC w/ auto diff Augustus # (ANC) K/uL 1.6 6.6 2.4 FINAL [address] [facility] [place], [address] [place] [address] [address] [place] [id number] 0 Phone: () - 08/23 CBC w/ auto diff Augustus % % 43.0 74.0 53.6 FINAL Kennedy Bernalub [facility] [place], [address] [place] [address] [address] [place] [phone] 0 Phone: () - 08/23 CBC w/ auto diff IG % % 0.0 0.5 0.2 FINAL Kennedy Doloresub [facility] [address] [place] [phone] 0 Phone: () - 08/23 CBC w/ auto diff IG # K/uL 0.0 0.03 0.01 FINAL Kennedyeddie Bernalub [facility] [address] [place] [phone] 0 Phone: () - 08/23 CBC w/ auto diff LY % % 14.0 41.0 32.2 FINAL Kennedy Unglaub [facility] [place], [address] [place] [address] 210 [place] [phone] 0 Phone: () - 08/23 CBC w/ auto diff MO % % 6.0 15.0 11.3 FINAL Kennedy Unglaub [facility] [place], [address] [place] [address] 210 [facility] [phone] 0 Phone: () - 08/23 CBC w/ auto diff EO % % 0.0 7.0 1.8 FINAL Kennedy Unglaub [place] [facility] [place], [address] [place] [address] 210 [facility] [id number] 0 Phone: () - 08/23 CBC w/ auto diff BA % % 0.0 2.0 0.9 FINAL [place]ub [place] [facility], [address] [place] [address] 210 [facility] [id number] 0 Phone: () - 08/23 CBC w/ auto diff LY # K/uL 0.4 3.6 1.5 FINAL Kennedy Ungmichaelub [place] [facility] [place], [address] [place] [address] 210 [facility] [id number] 0 Phone: () - 08/23 CBC w/ auto diff MO # K/uL 0.2 1.3 0.5 FINAL Kennedy Ungmichaelub [place] [facility], [address] [place] [address] 210 [facility] [id number] 0 Phone: () - 08/23 CBC w/ auto diff EO # K/uL 0.0 0.6 0.1 FINAL Kennedy Unglaub [place] [facility] [place], [address] [place] [address] [address] [place] [phone] 0 Phone: () - 08/23 CBC w/ auto diff BA # K/uL 0.0 0.2 0.0 FINAL Kennedy Unglaub [facility] [facility] [place], [address] [place] [address] [address] [place] [phone] 0 Phone: () - 08/23 CBC w/ auto diff NRBC % #/100W BC 0.0 0.2 0.0 FINAL Kennedy Carmona a [facility], [address] [place] [address] [address] [place] [phone] 0 Phone: () - 08/23 CBC w/ auto diff RBC M/uL 3.9 5.1 4.34 FINAL Kennedy Carmona toni [facility], [address] [place] [address] [address] [place] [phone] 0 Phone: () - 08/23 CBC w/ auto diff HCT % 35.0 48.0 41.0 FINAL [facility], [address] [place] [address] [address] [place] [id number] 0 Phone: () - 08/23 CBC w/ auto diff MCV fL 80.0 104.0 94.5 FINAL [facility] [place], [address] [place] [address] [address] [place] [phone] 0 Phone: () - 08/23 CBC w/ auto diff MCH pg 26.0 35.0 31.8 FINAL [facility] [place], [address] [place] [address] 210 [place] [phone] 0 Phone: () - 08/23 CBC w/ auto diff MCHC g/dL 30.0 35.0 33.7 FINAL Kennedy Carmona toni [facility], [address] [place] [address] [address] [place] [phone] 0 Phone: () - 08/23 CBC w/ auto diff MPV fL 9.5 13.4 9.5 FINAL [facility] [place], [address] [place] [address] [address] [place] [phone] 0 Phone: () - 08/23 CBC w/ auto diff RDW % 11.4 16.1 12.80 FINAL [facility] [place], [address] [place] [address] [address] [place] [phone] 0 Phone: () - 08/23 CMP Album in g/dL 3.2 5.2 4.4 FINAL Kennedy Carmona a [facility], [address] [facility] [address] [place] [phone] 0 Phone: () - 08/23 CMP Alkal ine phosp hatas e U/L 46.0 116.0 91 FINAL [facility] [address] [id number] 0 Phone: () - 08/23 CMP ALT/S GPT U/L 7.0 40.0 19 FINAL [place] [address] [address] [facility] [address] [id number] 0 Phone: () - 08/23 CMP AST/S GOT U/L 13.0 40.0 22 FINAL [place] [address] [address] [facility] [address] [phone] 0 Phone: () - 08/23 CMP BUN mg/dL 9.0 23.0 16 FINAL [place] [address] [phone] 0 Phone: () - 08/23 CMP Calci um mg/dL 8.7 10.4 9.8 FINAL [place] [address] [phone] 0 Phone: () - 08/23 CMP CO2 [...] the 96 hour stability window. FINAL [facility], [facility] [address] [phone] 0 Phone: () - 08/23 CMP Creat inine mg/dL 0.5 1.2 0.99 FINAL [place] [address] [address] [facility] [address] [place] [address] [phone] 0 Phone: () - 08/23 CMP GFR estim ate ml/min /1.73m ^2 62.3 GFR is calculate d using the CKD-EPI equation. FINAL [facility], [address] [id number] 0 Phone: () - 08/23 CMP Gluco se mg/dL 73.0 126.0 100 FINAL [place] [address] [phone] 0 Phone: () - 08/23 CMP Potas sium mmol/L 3.5 5.1 4.4 FINAL [place] [address] [id number] 0 Phone: () - 08/23 CMP Sodiu m mmol/L 136.0 145.0 144 FINAL [place] [address] [phone] 0 Phone: () - 08/23 CMP Bilir ubin, total mg/dL 0.3 1.2 0.7 FINAL Kennedy [facility] [place] [address] [phone] 0 Phone: () - 08/23 CMP Chlor rakan mmol/L 96.0 114.0 108 FINAL [place] [address] [id number] 0 Phone: () - 08/23 CMP Total prote in g/dL 5.7 8.2 6.5 FINAL [place] [address] [phone] 0 Phone: () - 03/13 BCR/A BL1, [...] all possible fusionfor ms. Please contact the [facility] oratory at [phone] with questions or if additiona ltesting is required. See the [facility] Laborator iesInterp retive Handbook for method details.T [...] its performan ce character isticsdet ermined by [facility] in a manner consisten t with CLIArequi rements. This test has not been cleared or approved bythe U.S. Food and Drug Administr [facility].Jane t Performed by:[address] Director: Michael Reid M.D. Ph.D.; CLIA# [id number] 2 FINAL Ruiz Hafe 03/13 CBC w/ auto diff HGB g/dL 11.3 15.2 14.6 FINAL Ruiz Raya [address] [phone] 0 Phone: () - 03/13 CBC w/ auto diff Augustus # (ANC) K/uL 1.6 6.6 5.3 FINAL Ruiz Raya [address] [id number] 0 Phone: () - 03/13 CBC w/ auto diff IG % % 0.0 0.5 0.3 FINAL Ruiz Carmona[address] [phone] 0 Phone: () - 03/13 CBC w/ auto diff IG # K/uL 0.0 0.03 0.02 FINAL Ruiz Raya [address] [phone] 0 Phone: () - 03/13 CBC w/ auto diff MO % % 6.0 15.0 9.4 FINAL Ruiz Carmona[address] [phone] 0 Phone: () - 03/13 CBC w/ auto diff WBC K/uL 3.0 8.9 7.7 FINAL Ruiz muñoz [facility] [place], [address] [place] [address] [address] [place] [id number] 0 Phone: () - 03/13 CBC w/ auto diff PLT K/uL 113.0 364.0 160 FINAL Ruiz muñoz [facility], [address] [place] [address] 210 [place] [phone] 0 Phone: () - 03/13 CBC w/ auto diff Augustus % % 43.0 74.0 69.5 FINAL [facility], [address] [place] [address] [address] [place] [id number] 0 Phone: () - 03/13 CBC w/ auto diff LY % % 14.0 41.0 19.5 FINAL [facility] [place], [address] [place] [address] [address] [place] [phone] 0 Phone: () - 03/13 CBC w/ auto diff EO % % 0.0 7.0 0.9 FINAL [facility], [address] [place] [address] [address] [place] [phone] 0 Phone: () - 03/13 CBC w/ auto diff BA % % 0.0 2.0 0.4 FINAL [facility] [place], [address] [place] [address] 210 [place] [phone] 0 Phone: () - 03/13 CBC w/ auto diff LY # K/uL 0.4 3.6 1.5 FINAL [facility], [address] [place] [address] [address] [place] [phone] 0 Phone: () - 03/13 CBC w/ auto diff MO # K/uL 0.2 1.3 0.7 FINAL [facility], [address] [place] [address] [address] [place] [phone] 0 Phone: () - 03/13 CBC w/ auto diff EO # K/uL 0.0 0.6 0.1 FINAL [facility] [place], [address] [place] [address] [address] [place] [id number] 0 Phone: () - 03/13 CBC w/ auto diff BA # K/uL 0.0 0.2 0.0 FINAL Ruiz Carmona toni [facility], [address] [place] [address] 210 [facility] [phone] 0 Phone: () - 03/13 CBC w/ auto diff NRBC % #/100W BC 0.0 0.2 0.0 FINAL [facility] [place], [address] [place] [address] 210 [facility] [phone] 0 Phone: () - 03/13 CBC w/ auto diff RBC M/uL 3.9 5.1 4.58 FINAL Ruiz Carmona[address] 210 [facility] [id number] 0 Phone: () - 03/13 CBC w/ auto diff HCT % 35.0 48.0 45.2 FINAL Ruiz Carmona[address] 210 [facility] [id number] 0 Phone: () - 03/13 CBC w/ auto diff MCV fL 80.0 104.0 98.7 FINAL [facility] [place], [address] [place] [address] 210 [facility] [id number] 0 Phone: () - 03/13 CBC w/ auto diff MCH pg 26.0 35.0 31.9 FINAL [facility] [place], [address] [place] [address] 210 [facility] [id number] 0 Phone: () - 03/13 CBC w/ auto diff MCHC g/dL 30.0 35.0 32.3 FINAL [facility] [place], [address] [place] [address] [address] [place] [id number] 0 Phone: () - 03/13 CBC w/ auto diff MPV fL 9.5 13.4 9.7 FINAL Ruiz Carmona[address] [place] [phone] 0 Phone: () - 03/13 CBC w/ auto diff RDW % 11.4 16.1 12.90 FINAL Ruiz Rousey [facility] [address] [facility] [address] [facility] [id number] 0 Phone: () - 03/13 CMP Album in g/dL 3.2 5.2 4.5 FINAL Ruiz Terrazas [facility], [address] [facility] [address] [facility] [phone] 0 Phone: () - 03/13 CMP Alkal ine phosp hatas e U/L 46.0 116.0 103 FINAL Ruiz Terrazas [facility] [address] [facility] [address] [facility] [phone] 0 Phone: () - 03/13 CMP ALT/S GPT U/L 7.0 40.0 19 FINAL [place] [address] [address] [facility] [address] [facility] [phone] 0 Phone: () - 03/13 CMP AST/S GOT U/L 13.0 40.0 23 FINAL Ruiz Raya [place] [address] [address] [facility] [address] [facility] [id number] 0 Phone: () - 03/13 CMP BUN mg/dL 9.0 23.0 13 FINAL [place] [address] [address] [facility] [address] [facility] [id number] 0 Phone: () - 03/13 CMP Calci um mg/dL 8.7 10.4 10.5 High FINAL Ruiz Raya [place] [address] [id number] 0 Phone: () - 03/13 CMP Chlor rakan mmol/L 96.0 114.0 107 FINAL Ruiz Raya [place] [address] [id number] 0 Phone: () - 03/13 CMP CO2 [...] 96 hour stability window. FINAL Ruiz Terrazas [facility], [facility] N [address] [phone] 0 Phone: () - 03/13 CMP Creat inine mg/dL 0.5 1.2 1.25 High FINAL Ruiz Terrazas [facility] [address] [phone] 0 Phone: () - 03/13 CMP GFR estim ate ml/min /1.73m ^2 46.9 Low GFR is calculate d using the CKD-EPI equation. FINAL [place] [address] [id number] 0 Phone: () - 03/13 CMP Gluco se mg/dL 73.0 126.0 111 FINAL [place] [address] [id number] 0 Phone: () - 03/13 CMP Potas sium mmol/L 3.5 5.1 4.2 FINAL Ruiz Raya [place] [address] [id number] 0 Phone: () - 03/13 CMP Sodiu m mmol/L 136.0 145.0 144 FINAL [place] [address] [id number] 0 Phone: () - 03/13 CMP Bilir ubin, total mg/dL 0.3 1.2 0.8 FINAL Ruiz Raya [place] [address] [id number] 0 Phone: () - 03/13 CMP Total prote in g/dL 5.7 8.2 6.7 FINAL Ruiz Raya [place] [address] [id number] 0 Phone: () - 09/11 CBC w/ auto diff WBC K/uL 3.0 8.9 5.7 FINAL [facility], [address] [place] [address] [address] [facility] [id number] 0 Phone: () - 09/11 CBC w/ auto diff HGB g/dL 11.3 15.2 13.8 FINAL Kennedy [place]ub [place] [facility], [address] [place] [address] 210 [place] [phone] 0 Phone: () - 09/11 CBC w/ auto diff PLT K/uL 113.0 364.0 167 FINAL Kennedy Unglaub [place] [facility], [address] [place] [address] 210 [place] [id number] 0 Phone: () - 09/11 CBC w/ auto diff Augustus # (ANC) K/uL 1.6 6.6 3.7 FINAL Kennedy Ungm[place]ub [place] [facility], [address] [place] [address] 210 [facility] [id number] 0 Phone: () - 09/11 CBC w/ auto diff Augustus % % 43.0 74.0 64.2 FINAL Kennedy Ungmichaelub [place] [facility], [address] [place] [address] 210 [facility] [id number] 0 Phone: () - 09/11 CBC w/ auto diff IG % % 0.0 0.5 0.2 FINAL Kennedy Ungmichaelub [place] [facility], [address] [place] [address] 210 [place] [phone] 0 Phone: () - 09/11 CBC w/ auto diff IG # K/uL 0.0 0.03 0.01 FINAL Kennedy Ungm[place]ub [place] [facility], [address] [place] [address] 210 [facility] [id number] 0 Phone: () - 09/11 CBC w/ auto diff LY % % 14.0 41.0 24.0 FINAL Kennedy Ungmichaelub [place] [facility], [address] [place] [address] 210 [place] [phone] 0 Phone: () - 09/11 CBC w/ auto diff MO % % 6.0 15.0 9.9 FINAL Kennedy Ungm[place]ub [place] [facility], [address] [place] [address] 210 [place] [id number] 0 Phone: () - 09/11 CBC w/ auto diff EO % % 0.0 7.0 1.2 FINAL Kennedy Unglaub [facility] [place], [address] [place] [address] 210 [place] [phone] 0 Phone: () - 09/11 CBC w/ auto diff BA % % 0.0 2.0 0.5 FINAL Kennedy Doloresub [facility] [place], [address] [place] [address] 210 [place] [phone] 0 Phone: () - 09/11 CBC w/ auto diff LY # K/uL 0.4 3.6 1.4 FINAL Kennedy Doloresub [facility] [place], [address] [place] [address] 210 [place] [phone] 0 Phone: () - 09/11 CBC w/ auto diff MO # K/uL 0.2 1.3 0.[address] [facility] [place], [address] [place] [address] 210 [place] [phone] 0 Phone: () - 09/11 CBC w/ auto diff EO # K/uL 0.0 0.6 0.[address] [facility] [place], [address] [place] [address] 210 [place] [phone] 0 Phone: () - 09/11 CBC w/ auto diff BA # K/uL 0.0 0.2 0.[address] [facility] [place], [address] [place] [address] 210 [place] [id number] 0 Phone: () - 09/11 CBC w/ auto diff NRBC % #/100W BC 0.0 0.2 0.[address] [facility] [place], [address] [place] [address] 210 [place] [phone] 0 Phone: () - 09/11 CBC w/ auto diff RBC M/uL 3.9 5.1 4.38 FINAL Kennedy Doloresub [facility] [facility] [place], [address] [place] [address] 210 [place] [id number] 0 Phone: () - 09/11 CBC w/ auto diff HCT % 35.0 48.0 42.8 FINAL Kennedy Doloresub [facility] [facility] [place], [address] [place] [address] 210 [facility] [id number] 0 Phone: () - 09/11 CBC w/ auto diff MCV fL 80.0 104.0 97.7 FINAL [place]ub [place] [facility] - [address] [place] [phone] 0 Phone: () - 09/11 CBC w/ auto diff MCH pg 26.0 35.0 31.5 FINAL [place] [address] [place] [phone] 0 Phone: () - 09/11 CBC w/ auto diff MCHC g/dL 30.0 35.0 32.2 FINAL [place] [address] 210 [facility] [id number] 0 Phone: () - 09/11 CBC w/ auto diff MPV fL 9.5 13.4 9.3 Low FINAL [place] [address] [place] [id number] 0 Phone: () - 09/11 CBC w/ auto diff RDW % 11.4 16.1 12.70 FINAL Kennedy Doloresub [place] [facility] [address] [place] [phone] 0 Phone: () - 09/11 PRIOR RESUL T Not Given FINAL Kennedy Unglaub [facility] [address] [place] [id number] 4 09/11 SOUR E: Periphe ral Blood FINAL Kennedy Unglaub [facility] [address] [place] [id number] 4 09/11 BCR ABL1/ ABL1 % % 0.000 FINAL Kennedy Unglaub [facility] [address] [place] [id number] 4 09/11 BCR ABL1/ ABL1 % (IS) % 0.000 FINAL Kennedy Unglaub [facility] [address] [place] [id number] 4 09/11 INTER PRETA TION see note [...] l informati on, please refer tohttp:// [email or web address]/faq/F [email or web address](This link is being provided forinform ational/e ducationa l purposes only.)Ass ay sensitivi ty is at least 4.5-logs below baselineB CR-ABL1 transcrip t levels but is dependent onquantit y and quality of RNA used for testing and thecellul arity of the sample.Th is test was developed and its analytica lperforma nce character istics have been determine dby [facility] , [place], [place].It has not been cleared or approved by the FDA. Thisassay has been validated pursuant to the CLIAregul ations and is used for clinical purposes. Meera drake, Ph.D., [facility] UNIVERSITY HOSPITALTech nical Director, Molecular Oncology FINAL Kennedy Unglaub [facility] [address] [place] [id number] 4 09/11 P190 BCR ABL1 Not Detecte d FINAL Kennedy Unglaub [facility] [address] [place] [id number] 4 09/11 P210 BCR ABL1 Not Detecte d FINAL Kennedy Unglaub [facility] [address] [place] [id number] 4 09/11 CMP Album in g/dL 3.2 5.2 4.5 FINAL Kennedy muñoz [facility], [facility] [address] [place] [address] [phone] 0 Phone: () - 09/11 CMP Alkal ine phosp hatas e U/L 46.0 116.0 111 FINAL [place] [address] [place] [address] [phone] 0 Phone: () - 09/11 CMP ALT/S GPT U/L 7.0 40.0 22 FINAL [place] [address] [place] [address] [phone] 0 Phone: () - 09/11 CMP AST/S GOT U/L 13.0 40.0 20 FINAL [place] [address] [place] [address] [phone] 0 Phone: () - 09/11 CMP BUN mg/dL 9.0 23.0 10.0 FINAL [place] [address] [place] [address] [phone] 0 Phone: () - 09/11 CMP Calci um mg/dL 8.7 10.4 9.7 FINAL [place] [address] [place] [address] [phone] 0 Phone: () - 09/11 CMP Chlor rakan mmol/L 96.0 114.0 109 FINAL [facility], [address] [place] [address] [phone] 0 Phone: () - 09/11 CMP CO2 [...] the 96 hour stability window. FINAL [facility] [facility] [address] [phone] 0 Phone: () - 09/11 CMP Creat inine mg/dL 0.5 1.2 1.05 FINAL Kennedy muñoz [place] [address] [id number] 0 Phone: () - 09/11 CMP GFR estim ate ml/min /1.73m ^2 57.6 Low GFR is calculate d using the CKD-EPI equation. FINAL Kennedy muñoz [place] [address] [id number] 0 Phone: () - 09/11 CMP Gluco se mg/dL 73.0 126.0 104 FINAL Kennedy muñoz [place] [address] [id number] 0 Phone: () - 09/11 CMP Potas sium mmol/L 3.5 5.1 4.3 FINAL Kennedy Carmona toni [place] [address] [id number] 0 Phone: () - 09/11 CMP Sodiu m mmol/L 136.0 145.0 145 FINAL Kennedy Carmona toni [place] [address] [id number] 0 Phone: () - 09/11 CMP Bilir ubin, total mg/dL 0.3 1.2 0.9 FINAL Kennedy Carmona toni [place] [address] [id number] 0 Phone: () - 09/11 CMP Total prote in g/dL 5.7 8.2 6.9 FINAL Kennedy Carmona toni [place] [address] [id number] 0 Phone: () - 11/16 iSTAT creat inine panel Creat inine , iSTAT mg/dl 0.6 1.3 0.9 FINAL Nicole Ya Nini muñoz [facility], [address] [facility] [phone] 0 Phone: () - 11/16 Xi hermosillo inyisel panel GFR estim ate ml/min /1.73m ^2 69.3 GFR is calculate d using the CKD-EPI equation. FINAL Nicole muñoz [facility] [place], [address] [place] [id number] 0 Phone: () - 11/16 CBC w/ auto diff WBC K/uL 3.0 8.9 7.6 FINAL Nicole muñoz [facility] [place], [address] [place] [id number] 0 Phone: () - 11/16 CBC w/ auto diff HGB g/dL 11.3 15.2 13.4 FINAL Nicole muñoz [facility] [place], [address] [place] [id number] 0 Phone: () - 11/16 CBC w/ auto diff PLT K/uL 113.0 364.0 162 FINAL Nicole muñoz [facility] [place], [address] [place] [id number] 0 Phone: () - 11/16 CBC w/ auto diff Augustus # (ANC) K/uL 1.6 6.6 6.7 High FINAL Nicole muñoz [facility] [place], [address] [place] [id number] 0 Phone: () - 11/16 CBC w/ auto diff Augustus % % 43.0 74.0 88.7 High FINAL Nicole muñoz [facility] [place], [address] [place] [id number] 0 Phone: () - 11/16 CBC w/ auto diff IG % % 0.0 0.5 0.7 High FINAL Nicole muñoz [facility] [place], [address] [place] [id number] 0 Phone: () - 11/16 CBC w/ auto diff IG # K/uL 0.0 0.03 0.05 High FINAL Nicole Carmonaot a [facility] [place], [address] [place] [id number] 0 Phone: () - 11/16 CBC w/ auto diff LY % % 14.0 41.0 8.8 Low FINAL Nicole Carmonaot a [facility] [place], [address] [place] [id number] 0 Phone: () - 11/16 CBC w/ auto diff MO % % 6.0 15.0 1.8 Low FINAL Nicole Carmonaot a [facility] [place], [address] [place] [id number] 0 Phone: () - 11/16 CBC w/ auto diff EO % % 0.0 7.0 0.0 FINAL Nicole Carmonaot a [facility] [place], [address] [place] [id number] 0 Phone: () - 11/16 CBC w/ auto diff BA % % 0.0 2.0 0.0 FINAL Nicole Carmonaot a [facility] [place], [address] [place] [id number] 0 Phone: () - 11/16 CBC w/ auto diff LY # K/uL 0.4 3.6 0.7 FINAL Nicole Terrazas a [facility] [place], [address] [place] [id number] 0 Phone: () - 11/16 CBC w/ auto diff MO # K/uL 0.2 1.3 0.1 Low FINAL Nicole Carmonaot a [facility] [place], [address] [place] [id number] 0 Phone: () - 11/16 CBC w/ auto diff EO # K/uL 0.0 0.6 0.0 FINAL Nicole Carmonaot a [facility] [place], [address] [place] [id number] 0 Phone: () - 11/16 CBC w/ auto diff BA # K/uL 0.0 0.2 0.0 FINAL Nicole Carmonaot a [facility] [place], [address] [place] [id number] 0 Phone: () - 11/16 CBC w/ auto diff NRBC % #/100W BC 0.0 0.2 0.0 FINAL Nicole Carmonaot a [facility] [place], [address] [place] [id number] 0 Phone: () - 11/16 CBC w/ auto diff RBC M/uL 3.9 5.1 4.16 FINAL Nicole Terrazas a [facility] [place], [address] [place] [id number] 0 Phone: () - 11/16 CBC w/ auto diff HCT % 35.0 48.0 39.7 FINAL Nicole Felton Mathewot a [facility] [place], [address] [place] [id number] 0 Phone: () - 11/16 CBC w/ auto diff MCV fL 80.0 104.0 95.4 FINAL Nicole muñoz [facility] [place], [address] [place] [id number] 0 Phone: () - 11/16 CBC w/ auto diff MCH pg 26.0 35.0 32.2 FINAL Nicole Ya Nini a [facility] [place], [address] [place] [id number] 0 Phone: () - 11/16 CBC w/ auto diff MCHC g/dL 30.0 35.0 33.8 FINAL Nicole Carmonaot a [facility] [place], [address] [place] [id number] 0 Phone: () - 11/16 CBC w/ auto diff MPV fL 9.5 13.4 9.3 Low FINAL Nicole Ya Mathewot a [facility] [place], [address] [place] [id number] 0 Phone: () - 11/16 CBC w/ auto diff RDW % 11.4 16.1 11.90 FINAL Nicole muñoz On[facility], [address] [facility] [id number] 0 Phone: () - 11/16 CMP Album in g/dL 3.2 5.2 4.5 [facility] [address] [facility] [address] [place] [address] [phone] 0 Phone: () - 11/16 CMP Alkal ine phosp hatas e U/L 46.0 116.0 91 FINAL [place] [address] [id number] 0 Phone: () - 11/16 CMP ALT/S GPT U/L 7.0 40.0 15 FINAL [place] [address] [id number] 0 Phone: () - 11/16 CMP AST/S GOT U/L 13.0 40.0 18 FINAL [place] [address] [id number] 0 Phone: () - 11/16 CMP BUN mg/dL 9.0 23.0 16.0 FINAL [place] [address] [id number] 0 Phone: () - 11/16 CMP Calci um mg/dL 8.7 10.4 9.8 FINAL [place] [address] [id number] 0 Phone: () - 11/16 CMP Chlor rakan mmol/L 96.0 114.0 109 FINAL [place] [address] [id number] 0 Phone: () - 11/16 CMP CO2 [...] 96 hour stability window. FINAL Nicole Terrazas [place] [address] [id number] 0 Phone: () - 11/16 CMP Creat inine mg/dL 0.5 1.2 0.88 FINAL Nicole Carmona[address] [id number] 0 Phone: () - 11/16 CMP GFR estim ate ml/min /1.73m ^2 71.2 GFR is calculate d using the CKD-EPI equation. FINAL Nicole Carmona[address] [id number] 0 Phone: () - 11/16 CMP Gluco se mg/dL 73.0 126.0 152 High FINAL Nicole Carmona[address] [id number] 0 Phone: () - 11/16 CMP Potas sium mmol/L 3.5 5.1 4.2 FINAL Nicole Carmona[address] [id number] 0 Phone: () - 11/16 CMP Sodiu m mmol/L 136.0 145.0 142 FINAL [place] [address] [id number] 0 Phone: () - 11/16 CMP Bilir ubin, total mg/dL 0.3 1.2 0.6 FINAL Nicole Carmona[address] [id number] 0 Phone: () - 11/16 CMP Total prote in g/dL 5.7 8.2 6.8 FINAL [place] [address] [id number] 0 Phone: () - 11/21 Smear revie w panel CBC Smear revie w comme nts Consist ent with reporte d results Abnorma l Lymphs present Large and-or giant platele ts present FINAL Nicole Terrazas a [facility] [place], [address] [place] [id number] 0 Phone: () - 11/21 CBC w/ auto diff WBC K/uL 3.0 8.9 1.0 Low FINAL Nicole Terrazas a [facility] [place], [address] [place] [id number] 0 Phone: () - 11/21 CBC w/ auto diff HGB g/dL 11.3 15.2 13.2 FINAL Nicole Terrazas a [facility] [place], [address] [place] [id number] 0 Phone: () - 11/21 CBC w/ auto diff PLT K/uL 113.0 364.0 47 Critica l hematol ogy result obtaine d Criti todd Low FINAL Nicole Terrazas a [facility] [place], [address] [place] [id number] 0 Phone: () - 11/21 CBC w/ auto diff Augustus # (ANC) K/uL 1.6 6.6 0.4 Critica l hematol ogy result obtaine d Criti todd Low FINAL Nicole Terrazas a [facility] [place], [address] [place] [id number] 0 Phone: () - 11/21 CBC w/ auto diff Augustus % % 43.0 74.0 34.7 Low FINAL Nicole Terrazas a [facility] [place], [address] [place] [id number] 0 Phone: () - 11/21 CBC w/ auto diff IG % % 0.0 0.5 1.9 High FINAL Nicole Terrazas a [facility] [place], [address] [place] [id number] 0 Phone: () - 11/21 CBC w/ auto diff IG # K/uL 0.0 0.03 0.02 FINAL Nicole Ya [place] [facility] [place], [address] [place] [id number] 0 Phone: () - 11/21 CBC w/ auto diff LY % % 14.0 41.0 56.7 High FINAL Nicole Carmonaot a [facility] [place], [address] [place] [id number] 0 Phone: () - 11/21 CBC w/ auto diff MO % % 6.0 15.0 1.9 Low FINAL Nicole Carmonaot a [facility] [place], [address] [place] [id number] 0 Phone: () - 11/21 CBC w/ auto diff EO % % 0.0 7.0 1.9 FINAL Nicole Carmonaot a [facility] [place], [address] [place] [id number] 0 Phone: () - 11/21 CBC w/ auto diff BA % % 0.0 2.0 2.9 High FINAL Nicole Terrazas a [facility] [place], [address] [place] [id number] 0 Phone: () - 11/21 CBC w/ auto diff LY # K/uL 0.4 3.6 0.6 FINAL Nicole Terrazas a [facility] [place], [address] [place] [id number] 0 Phone: () - 11/21 CBC w/ auto diff MO # K/uL 0.2 1.3 0.0 Low FINAL Nicole Carmonaot a [facility] [place], [address] [place] [id number] 0 Phone: () - 11/21 CBC w/ auto diff EO # K/uL 0.0 0.6 0.0 FINAL Nicole Carmonaot a [facility] [place], [address] [place] [id number] 0 Phone: () - 11/21 CBC w/ auto diff BA # K/uL 0.0 0.2 0.0 FINAL Nicole Carmonaot a [facility] [place], [address] [place] [id number] 0 Phone: () - 11/21 CBC w/ auto diff NRBC % #/100W BC 0.0 0.2 0.0 FINAL Nicole Carmonaot a [facility] [place], [address] [place] [id number] 0 Phone: () - 11/21 CBC w/ auto diff RBC M/uL 3.9 5.1 4.07 FINAL Nicole muñoz [facility] [place], [address] [place] [id number] 0 Phone: () - 11/21 CBC w/ auto diff HCT % 35.0 48.0 38.4 FINAL Nicole muñoz [facility] [place], [address] [place] [id number] 0 Phone: () - 11/21 CBC w/ auto diff MCV fL 80.0 104.0 94.3 FINAL Nicole muñoz [facility] [place], [address] [place] [id number] 0 Phone: () - 11/21 CBC w/ auto diff MCH pg 26.0 35.0 32.4 FINAL Nicole muñoz [facility] [place], [address] [place] [id number] 0 Phone: () - 11/21 CBC w/ auto diff MCHC g/dL 30.0 35.0 34.4 FINAL Nicole Carmonaot a [facility] [place], [address] [place] [id number] 0 Phone: () - 11/21 CBC w/ auto diff MPV fL 9.5 13.4 10.1 FINAL Nicole Carmonaot a [facility] [place], [address] [place] [id number] 0 Phone: () - 11/21 CBC w/ auto diff RDW % 11.4 16.1 11.80 FINAL Nicole muñoz [facility] [place], [address] [facility] [address] [place] [id number] 0 Phone: () - 11/21 CBC w/ auto diff Auto CBC comme nts Slide review to follow FINAL Nicole muñoz [facility] [place], [address] [facility] [address] [place] [id number] 0 Phone: () - 11/21 CMP Album in g/dL 3.2 5.2 3.9 FINAL Nicole muñoz [place] [address] [id number] 0 Phone: () - 11/21 CMP Alkal ine phosp hatas e U/L 46.0 116.0 90 FINAL Nicole muñoz [place] [address] [id number] 0 Phone: () - 11/21 CMP ALT/S GPT U/L 7.0 40.0 37 FINAL Nicole Terrazas [place] [address] [id number] 0 Phone: () - 11/21 CMP AST/S GOT U/L 13.0 40.0 31 FINAL Nicole muñoz [place] [address] [id number] 0 Phone: () - 11/21 CMP BUN mg/dL 9.0 23.0 13.0 FINAL Nicole muñoz [place] [address] [address] [facility] [address] [id number] 0 Phone: () - 11/21 CMP Calci um mg/dL 8.7 10.4 8.9 FINAL Nicole muñoz [place] [address] [id number] 0 Phone: () - 11/21 CMP Chlor rakan mmol/L 96.0 114.0 107 FINAL Nicole Terrazas [place] [address] [address] [facility] [address] [phone] 0 Phone: () - 11/21 CMP CO2 [...] the 96 hour stability window. [facility], [address] [id number] 0 Phone: () - 11/21 CMP Creat inine mg/dL 0.5 1.2 0.83 FINAL Nicole [place] [address] [id number] 0 Phone: () - 11/21 CMP GFR estim ate ml/min /1.73m ^2 76.3 GFR is calculate d using the CKD-EPI equation. FINAL Nicole [place] [address] [id number] 0 Phone: () - 11/21 CMP Gluco se mg/dL 73.0 126.0 99 FINAL Nicoledarius [place] [address] [id number] 0 Phone: () - 11/21 CMP Potas sium mmol/L 3.5 5.1 3.8 FINAL Nicole [place] [address] [id number] 0 Phone: () - 11/21 CMP Sodiu m mmol/L 136.0 145.0 142 [facility] [address] [id number] 0 Phone: () - 11/21 CMP Bilir ubin, total mg/dL 0.3 1.2 1.3 High FINAL [facility] [address] [id number] 0 Phone: () - 11/21 CMP Total prote in g/dL 5.7 8.2 6.0 FINAL Nicole muñoz [facility] [place], [address] [place] [id number] 0 Phone: () - 11/27 iSTAT creat inine panel Creat inine , iSTAT mg/dl 0.6 1.3 1.1 FINAL Nicole muñoz [facility] [place], [address] [place] [id number] 0 Phone: () - 11/27 iSTAT creat inine panel GFR estim ate ml/min /1.73m ^2 54.4 Low GFR is calculate d using the CKD-EPI equation. FINAL Nicole muñoz [facility] [place], [address] [place] [id number] 0 Phone: () - 11/27 iSTAT Na+/K +/Cl- panel Sodiu m, iSTAT mmol/L 138.0 146.0 137 Low Reference range adjusted 0 with implement ation of I-Stat 8+ cartridge . FINAL Nicole muñoz [facility] [place], [address] [place] [id number] 0 Phone: () - 11/27 iSTAT Na+/K +/Cl- panel Potas sium, iSTAT mmol/L 3.5 4.9 3.4 Low Reference range adjusted 0 with implement ation of I-Stat 8+ cartridge . FINAL Nicole muñoz [facility] [place], [address] [place] [id number] 0 Phone: () - 11/27 iSTAT Na+/K +/Cl- panel Chlor rakan, iSTAT mmol/L 98.0 109.0 99 Reference range adjusted 0 with implement ation of I-Stat 8+ cartridge . FINAL Nicole muñoz [facility] [place], [address] [place] [id number] 0 Phone: () - 11/27 CBC w/ auto diff WBC K/uL 3.0 8.9 32.0 High FINAL iNcole Carmonaot a [facility] - [place], [address] [place] [id number] 0 Phone: () - 11/27 CBC w/ auto diff HGB g/dL 11.3 15.2 13.3 FINAL Nicole Carmonaot a [facility] [place], [address] [place] [id number] 0 Phone: () - 11/27 CBC w/ auto diff PLT K/uL 113.0 364.0 87 Low FINAL Nicole Carmonaot a [facility] [place], [address] [place] [id number] 0 Phone: () - 11/27 CBC w/ auto diff Augustus # (ANC) K/uL 1.6 6.6 25.7 High FINAL Nicole Carmonaot a [facility] - [place], [address] [place] [id number] 0 Phone: () - 11/27 CBC w/ auto diff Augustus % % 43.0 74.0 80.5 High FINAL Nicole Carmonaot a [facility] - [place], [address] [place] [id number] 0 Phone: () - 11/27 CBC w/ auto diff IG % % 0.0 0.5 7.6 High FINAL Nicole Carmonaot a [facility] - [place], [address] [place] [id number] 0 Phone: () - 11/27 CBC w/ auto diff IG # K/uL 0.0 0.03 2.44 High FINAL Nicole Carmonaot a [facility] [place], [address] [place] [id number] 0 Phone: () - 11/27 CBC w/ auto diff LY % % 14.0 41.0 5.8 Low FINAL Nicole Carmonaot a [facility] - [place], [address] [place] [id number] 0 Phone: () - 11/27 CBC w/ auto diff MO % % 6.0 15.0 6.1 FINAL Nicole muñoz [facility] [place], [address] [place] [id number] 0 Phone: () - 11/27 CBC w/ auto diff EO % % 0.0 7.0 0.0 FINAL Nicole muñoz [facility] [place], [address] [place] [id number] 0 Phone: () - 11/27 CBC w/ auto diff BA % % 0.0 2.0 0.0 FINAL Nicole muñoz [facility] [place], [address] [place] [id number] 0 Phone: () - 11/27 CBC w/ auto diff LY # K/uL 0.4 3.6 1.8 FINAL Nicole muñoz [facility] [place], [address] [place] [id number] 0 Phone: () - 11/27 CBC w/ auto diff MO # K/uL 0.2 1.3 2.0 High FINAL Nicole muñoz [facility] [place], [address] [place] [id number] 0 Phone: () - 11/27 CBC w/ auto diff EO # K/uL 0.0 0.6 0.0 FINAL Nicole muñoz [facility] [place], [address] [place] [id number] 0 Phone: () - 11/27 CBC w/ auto diff BA # K/uL 0.0 0.2 0.0 FINAL Nicole muñoz [facility] [place], [address] [place] [id number] 0 Phone: () - 11/27 CBC w/ auto diff NRBC % #/100W BC 0.0 0.2 0.3 High FINAL Nicole muñoz [facility] [place], [address] [place] [id number] 0 Phone: () - 11/27 CBC w/ auto diff RBC M/uL 3.9 5.1 4.09 FINAL Nicole Ya Mathewdamaris muñoz [facility] [place], [address] [facility] [address] [place] [id number] 0 Phone: () - 11/27 CBC w/ auto diff HCT % 35.0 48.0 38.0 FINAL Nicole Ya Mathewdamaris muñoz [facility] [place], [address] [facility] [address] [place] [id number] 0 Phone: () - 11/27 CBC w/ auto diff MCV fL 80.0 104.0 92.9 FINAL Nicole muñoz [facility] [place], [address] [facility] [address] [place] [id number] 0 Phone: () - 11/27 CBC w/ auto diff MCH pg 26.0 35.0 32.5 FINAL Nicole muñoz [facility] - [place], [address] [facility] [address] [place] [id number] 0 Phone: () - 11/27 CBC w/ auto diff MCHC g/dL 30.0 35.0 35.0 FINAL Nicole Ya Mathewdamaris muñoz [facility] [place], [address] [facility] [address] [place] [id number] 0 Phone: () - 11/27 CBC w/ auto diff MPV fL 9.5 13.4 9.1 Low FINAL Nicole Ya Mathewdamaris muñoz [facility] [place], [address] [facility] [address] [place] [id number] 0 Phone: () - 11/27 CBC w/ auto diff RDW % 11.4 16.1 11.60 FINAL Nicole Ya Mathewdamaris muñoz [facility] [place], [address] [facility] [address] [place] [id number] 0 Phone: () - 12/07 CBC w/ auto diff WBC K/uL 3.0 8.9 17.1 High FINAL Tiara Coronado Mathewdamaris muñoz [facility] [place], [address] [place] [id number] 0 Phone: () - 12/07 CBC w/ auto diff HGB g/dL 11.3 15.2 10.9 Low FINAL Tiara Carmonaot a [facility] - [place], [address] [place] [id number] 0 Phone: () - 12/07 CBC w/ auto diff PLT K/uL 113.0 364.0 157 FINAL Tiara Carmonaot a [facility] - [place], [address] [place] [id number] 0 Phone: () - 12/07 CBC w/ auto diff Augustus # (ANC) K/uL 1.6 6.6 15.3 High FINAL Tiara Carmonaot a [facility] - [place], [address] [place] [id number] 0 Phone: () - 12/07 CBC w/ auto diff Augustus % % 43.0 74.0 89.4 High FINAL Tiara Carmonaot a [facility] - [place], [address] [place] [id number] 0 Phone: () - 12/07 CBC w/ auto diff IG % % 0.0 0.5 1.8 High FINAL Tiara Carmonaot a [facility] - [place], [address] [place] [id number] 0 Phone: () - 12/07 CBC w/ auto diff IG # K/uL 0.0 0.03 0.30 High FINAL Tiara Carmonaot a [facility] - [place], [address] [place] [id number] 0 Phone: () - 12/07 CBC w/ auto diff LY % % 14.0 41.0 5.2 Low FINAL Tiara Carmonaot a [facility] - [place], [address] [place] [id number] 0 Phone: () - 12/07 CBC w/ auto diff MO % % 6.0 15.0 3.5 Low FINAL Tiara Carmonaot a [facility] - [place], [address] [place] [id number] 0 Phone: () - 12/07 CBC w/ auto diff EO % % 0.0 7.0 0.0 FINAL Tiara Carmonaot a [facility] - [place], [address] [place] [id number] 0 Phone: () - 12/07 CBC w/ auto diff BA % % 0.0 2.0 0.1 FINAL Tiara Carmonaot a [facility] - [place], [address] [place] [id number] 0 Phone: () - 12/07 CBC w/ auto diff LY # K/uL 0.4 3.6 0.9 FINAL Tiara Carmonaot a [facility] - [place], [address] [place] [id number] 0 Phone: () - 12/07 CBC w/ auto diff MO # K/uL 0.2 1.3 0.6 FINAL Tiara Carmonaot a [facility] - [place], [address] [place] [id number] 0 Phone: () - 12/07 CBC w/ auto diff EO # K/uL 0.0 0.6 0.0 FINAL Tiara Carmonaot a [facility] - [place], [address] [place] [id number] 0 Phone: () - 12/07 CBC w/ auto diff BA # K/uL 0.0 0.2 0.0 FINAL Tiara Carmonaot a [facility] - [place], [address] [place] [id number] 0 Phone: () - 12/07 CBC w/ auto diff NRBC % #/100W BC 0.0 0.2 0.0 FINAL Tiara Carmonaot a [facility] - [place], [address] [place] [id number] 0 Phone: () - 12/07 CBC w/ auto diff RBC M/uL 3.9 5.1 3.37 Low FINAL Tiara Carmonaot a [facility] - [place], [address] [facility] [address] [place] [id number] 0 Phone: () - 12/07 CBC w/ auto diff HCT % 35.0 48.0 32.8 Low FINAL Tiara Carmonaot a [facility] - [place], [address] [facility] [address] [place] [id number] 0 Phone: () - 12/07 CBC w/ auto diff MCV fL 80.0 104.0 97.3 FINAL Tiara Carmonaot a [facility] - [place], [address] [facility] [address] [place] [id number] 0 Phone: () - 12/07 CBC w/ auto diff MCH pg 26.0 35.0 32.3 FINAL Tiaar Carmonaot a [facility] - [place], [address] [facility] [facility] [address] [place] [id number] 0 Phone: () - 12/07 CBC w/ auto diff MCHC g/dL 30.0 35.0 33.2 FINAL Tiara Carmonaot a [facility] - [place], [address] [facility] [address] [place] [id number] 0 Phone: () - 12/07 CBC w/ auto diff MPV fL 9.5 13.4 8.9 Low FINAL Tiara Carmonaot a [facility] - [place], [address] [facility] [address] [place] [id number] 0 Phone: () - 12/07 CBC w/ auto diff RDW % 11.4 16.1 12.70 FINAL Tiara Carmonaot a [facility] - [place], [address] [facility] [address] [place] [id number] 0 Phone: () - 12/07 CMP Album in g/dL 3.2 5.2 3.9 FINAL Tiara Carmonaot a [facility] - [place], [address] [place] [id number] 0 Phone: () - 12/07 CMP Alkal ine phosp hatas e U/L 46.0 116.0 97 FINAL [facility] [address] [facility] [id number] 0 Phone: () - 12/07 CMP ALT/S GPT U/L 7.0 40.0 27 FINAL [facility] [address] [facility] [address] [facility] [id number] 0 Phone: () - 12/07 CMP AST/S GOT U/L 13.0 40.0 17 FINAL [place] [address] [facility] 100 [facility] [id number] 0 Phone: () - 12/07 CMP BUN mg/dL 9.0 23.0 12.0 FINAL [place] [address] [facility] 100 [facility] [id number] 0 Phone: () - 12/07 CMP Calci um mg/dL 8.7 10.4 9.8 FINAL [place] [address] [address] [facility] [address] [facility] [id number] 0 Phone: () - 12/07 CMP Chlor rakan mmol/L 96.0 114.0 110 FINAL [place] [address] [address] [facility] [address] [id number] 0 Phone: () - 12/07 CMP CO2 [...] of the 96 hour stability window. FINAL [place] [address] [facility] [id number] 0 Phone: () - 12/07 CMP Creat inine mg/dL 0.5 1.2 0.89 FINAL [place] [address] [facility] [phone] [phone] Phone: () - 12/07 CMP GFR estim ate ml/min /1.73m ^2 70.2 GFR is calculate d using the CKD-EPI equation. FINAL Tiara muñoz [facility], [address] [facility] [id number] 0 Phone: () - 12/07 CMP Gluco se mg/dL 73.0 126.0 152 High [facility] [address] [facility] [id number] 0 Phone: () - 12/07 CMP Potas sium mmol/L 3.5 5.1 4.3 [facility], [address] [facility] [id number] 0 Phone: () - 12/07 CMP Sodiu m mmol/L 136.0 145.0 145 [facility], [address] [facility] [address] [facility] [id number] 0 Phone: () - 12/07 CMP Bilir ubin, total mg/dL 0.3 1.2 0.6 FINAL Tiaratoni [facility], [address] [facility] [id number] 0 Phone: () - 12/07 CMP Total prote in g/dL 5.7 8.2 5.9 FINAL Tiara Terrazas [facility], [address] [facility] [id number] 0 Phone: () - 12/07 iSTAT creat inine panel Creat inine , iSTAT mg/dl 0.6 1.3 0.8 FINAL Tiaratoni Carmona toni [facility] [place], [address] [place] [id number] 0 Phone: () - 12/07 iSTAT creat inine panel GFR estim ate ml/min /1.73m ^2 79.8 GFR is calculate d using the CKD-EPI equation. FINAL Tiara muñoz [facility] [place], [address] [facility] [place] [phone] 0 Phone: () - 12/12 CBC w/ auto diff WBC K/uL 3.0 8.9 2.0 Low FINAL Nicole Terrazas a [facility] [place], [address] [place] [id number] 0 Phone: () - 12/12 CBC w/ auto diff HGB g/dL 11.3 15.2 11.2 Low FINAL Nicole Terrazas a [facility] [place], [address] [place] [id number] 0 Phone: () - 12/12 CBC w/ auto diff PLT K/uL 113.0 364.0 27 Critica l hematol ogy result obtaine d Criti todd Low FINAL Nicole muñoz [facility] [place], [address] [place] [id number] 0 Phone: () - 12/12 CBC w/ auto diff Plate let, immat ure, fract ion % 0.9 11.2 7.0 FINAL Nicole muñoz [facility] [place], [address] [place] [id number] 0 Phone: () - 12/12 CBC w/ auto diff Augustus # (ANC) K/uL 1.6 6.6 1.1 Low FINAL Nicole muñoz [facility] [place], [address] [place] [id number] 0 Phone: () - 12/12 CBC w/ auto diff Augustus % % 43.0 74.0 56.0 FINAL Nicole muñoz [facility] [place], [address] [place] [id number] 0 Phone: () - 12/12 CBC w/ auto diff IG % % 0.0 0.5 3.0 High FINAL Nicole Terrazas a [facility] [place], [address] [place] [id number] 0 Phone: () - 12/12 CBC w/ auto diff IG # K/uL 0.0 0.03 0.06 High FINAL Nicole Carmonaot a [facility] [place], [address] [place] [id number] 0 Phone: () - 12/12 CBC w/ auto diff LY % % 14.0 41.0 35.5 FINAL Nicole Carmonaot a [facility] [place], [address] [place] [id number] 0 Phone: () - 12/12 CBC w/ auto diff MO % % 6.0 15.0 2.0 Low FINAL Nicole Carmonaot a [facility] [place], [address] [place] [id number] 0 Phone: () - 12/12 CBC w/ auto diff EO % % 0.0 7.0 1.0 FINAL Nicole Carmonaot a [facility] [place], [address] [place] [id number] 0 Phone: () - 12/12 CBC w/ auto diff BA % % 0.0 2.0 2.5 High FINAL Nicole Carmonaot a [facility] [place], [address] [place] [id number] 0 Phone: () - 12/12 CBC w/ auto diff LY # K/uL 0.4 3.6 0.7 FINAL Nicole Carmonaot a [facility] [place], [address] [place] [id number] 0 Phone: () - 12/12 CBC w/ auto diff MO # K/uL 0.2 1.3 0.0 Low FINAL Nicole Carmonaot a [facility] [place], [address] [place] [id number] 0 Phone: () - 12/12 CBC w/ auto diff EO # K/uL 0.0 0.6 0.0 FINAL Nicole Carmonaot a [facility] [place], [address] [place] [id number] 0 Phone: () - 12/12 CBC w/ auto diff BA # K/uL 0.0 0.2 0.1 FINAL Nicole Carmonaot a [facility] [place], [address] [place] [id number] 0 Phone: () - 12/12 CBC w/ auto diff NRBC % #/100W BC 0.0 0.2 1.0 High FINAL Nicole Terrazas a [facility] [place], [address] [place] [id number] 0 Phone: () - 12/12 CBC w/ auto diff RBC M/uL 3.9 5.1 3.51 Low FINAL Nicole muñoz [facility] [place], [address] [place] [id number] 0 Phone: () - 12/12 CBC w/ auto diff HCT % 35.0 48.0 33.7 Low FINAL Nicole muñoz [facility] [place], [address] [place] [id number] 0 Phone: () - 12/12 CBC w/ auto diff MCV fL 80.0 104.0 96.0 FINAL Nicole muñoz [facility] [place], [address] [place] [id number] 0 Phone: () - 12/12 CBC w/ auto diff MCH pg 26.0 35.0 31.9 FINAL Nicole muñoz [facility] [place], [address] [place] [id number] 0 Phone: () - 12/12 CBC w/ auto diff MCHC g/dL 30.0 35.0 33.2 FINAL Nicole muñoz [facility] [place], [address] [place] [id number] 0 Phone: () - 12/12 CBC w/ auto diff MPV fL 9.5 13.4 11.1 FINAL Nicole Ya Mathewot toni [facility] - [place], [address] [place] [id number] 0 Phone: () - 12/12 CBC w/ auto diff RDW % 11.4 16.1 13.00 FINAL Nicole muñoz [facility] [place], [address] [facility] [address] [place] [id number] 0 Phone: () - 12/12 iSTAT Na+/K +/Cl- panel Sodiu m, iSTAT mmol/L 138.0 146.0 137 Low Reference range adjusted 0 with implement ation of I-Stat 8+ cartridge . FINAL Nicole muñoz [facility] [place], [address] [facility] [address] [place] [id number] 0 Phone: () - 12/12 iSTAT Na+/K +/Cl- panel Potas sium, iSTAT mmol/L 3.5 4.9 3.9 Reference range adjusted 0 with implement ation of I-Stat 8+ cartridge . FINAL Nicole muñoz [facility] [place], [address] [place] [id number] 0 Phone: () - 12/12 iSTAT Na+/K +/Cl- panel Chlor rakan, iSTAT mmol/L 98.0 109.0 99 Reference range adjusted 0 with implement ation of I-Stat 8+ cartridge . FINAL Nicole muñoz [facility] [place], [address] [place] [id number] 0 Phone: () - 12/27 CMP Album in g/dL 3.2 5.2 3.7 FINAL Nicloe muñoz Oncology [facility], [address] [place] [id number] 0 Phone: () - 12/27 CMP Alkal ine phosp hatas e U/L 46.0 116.0 94 FINAL Nicole muñoz On[facility], [address] [place] [id number] 0 Phone: () - 12/27 CMP ALT/S GPT U/L 7.0 40.0 33 FINAL Nicole muñoz [place] [address] [id number] 0 Phone: () - 12/27 CMP AST/S GOT U/L 13.0 40.0 21 FINAL Nicole muñoz [place] [address] [id number] 0 Phone: () - 12/27 CMP BUN mg/dL 9.0 23.0 8.0 Low FINAL Nicole muñoz [place] [address] [id number] 0 Phone: () - 12/27 CMP Calci um mg/dL 8.7 10.4 8.5 Low FINAL Nicole muñoz [place] [address] [id number] 0 Phone: () - 12/27 CMP Chlor rakan mmol/L 96.0 114.0 114 FINAL [place] [address] [id number] 0 Phone: () - 12/27 CMP CO2 [...] 96 hour stability window. FINAL Nicole muñoz [place] [address] [id number] 0 Phone: () - 12/27 CMP Creat inine mg/dL 0.5 1.2 0.89 FINAL [place] [address] [id number] 0 Phone: () - 12/27 CMP GFR estim ate ml/min /1.73m ^2 70.1 GFR is calculate d using the CKD-EPI equation. FINAL Nicole muñoz [place] [address] [id number] 0 Phone: () - 12/27 CMP Gluco se mg/dL 73.0 126.0 92 FINAL Nicole muñoz [facility], [address] [facility] [id number] 0 Phone: () - 12/27 CMP Potas sium mmol/L 3.5 5.1 4.3 FINAL Nicole muñoz [facility], [address] [facility] [id number] 0 Phone: () - 12/27 CMP Sodiu m mmol/L 136.0 145.0 145 FINAL Nicole muñoz [facility], [address] [facility] [id number] 0 Phone: () - 12/27 CMP Bilir ubin, total mg/dL 0.3 1.2 0.5 FINAL Nicole muñoz [facility], [address] [facility] [id number] 0 Phone: () - 12/27 CMP Total prote in g/dL 5.7 8.2 5.5 Low FINAL Nicole muñoz [facility], [address] [facility] [id number] 0 Phone: () - 12/27 CBC w/ auto diff WBC K/uL 3.0 8.9 6.3 FINAL Nicole muñoz [facility] [place] , [address] [place] [address] [address] [facility] [place] [id number] 0 Phone: () - 12/27 CBC w/ auto diff HGB g/dL 11.3 15.2 10.2 Low FINAL Nicole muñoz [facility] [place] , [address] [place] [address] d [address] [facility] [place] [id number] 0 Phone: () - 12/27 CBC w/ auto diff PLT K/uL 113.0 364.0 108 Low FINAL Nicole muñoz [facility] [place] , [address] [place] [address] [address] [facility] [place] [id number] 0 Phone: () - 12/27 CBC w/ auto diff Augustus # (ANC) K/uL 1.6 6.6 3.8 FINAL Nicole Ya [place] [facility] [place], [address] [place] [id number] 0 Phone: () - 12/27 CBC w/ auto diff Augustus % % 43.0 74.0 60.1 FINAL Nicole Carmonaot a [facility] - [place], [address] [place] [id number] 0 Phone: () - 12/27 CBC w/ auto diff IG % % 0.0 0.5 0.6 High FINAL Nicole Terrazas a [facility] [place], [address] [place] [id number] 0 Phone: () - 12/27 CBC w/ auto diff IG # K/uL 0.0 0.03 0.04 High FINAL Nicole Terrazas a [facility] [place], [address] [place] [id number] 0 Phone: () - 12/27 CBC w/ auto diff LY % % 14.0 41.0 25.1 FINAL Nicole Terrazas a [facility] [place], [address] [place] [id number] 0 Phone: () - 12/27 CBC w/ auto diff MO % % 6.0 15.0 13.7 FINAL Nicole muñoz [facility] [place], [address] [place] [id number] 0 Phone: () - 12/27 CBC w/ auto diff EO % % 0.0 7.0 0.2 FINAL Nicole Terrazas a [facility] [place], [address] [place] [id number] 0 Phone: () - 12/27 CBC w/ auto diff BA % % 0.0 2.0 0.3 FINAL Nicole Carmonaot a [facility] - [place], [address] [place] [id number] 0 Phone: () - 12/27 CBC w/ auto diff LY # K/uL 0.4 3.6 1.6 FINAL Nicole Carmonaot a [facility] [place], [address] [place] [id number] 0 Phone: () - 12/27 CBC w/ auto diff MO # K/uL 0.2 1.3 0.9 FINAL Nicole Carmonaot a [facility] [place], [address] [place] [id number] 0 Phone: () - 12/27 CBC w/ auto diff EO # K/uL 0.0 0.6 0.0 FINAL Nicole Terrazas a [facility] [place], [address] [place] [id number] 0 Phone: () - 12/27 CBC w/ auto diff BA # K/uL 0.0 0.2 0.0 FINAL Nicole Terrazas a [facility] [place], [address] [place] [id number] 0 Phone: () - 12/27 CBC w/ auto diff NRBC % #/100W BC 0.0 0.2 0.0 FINAL Nicole Terrazas a [facility] [place], [address] [place] [id number] 0 Phone: () - 12/27 CBC w/ auto diff RBC M/uL 3.9 5.1 3.18 Low FINAL Nicole Terrazas a [facility] [place], [address] [place] [id number] 0 Phone: () - 12/27 CBC w/ auto diff HCT % 35.0 48.0 32.2 Low FINAL Nicole Terrazas a [facility] [place], [address] [place] [id number] 0 Phone: () - 12/27 CBC w/ auto diff MCV fL 80.0 104.0 101.3 FINAL Nicole Carmonaot a [facility] [place], [address] [place] [id number] 0 Phone: () - 12/27 CBC w/ auto diff MCH pg 26.0 35.0 32.1 FINAL Nicole muñoz [facility] [place], [address] [place] [id number] 0 Phone: () - 12/27 CBC w/ auto diff MCHC g/dL 30.0 35.0 31.7 FINAL Nicole muñoz [facility] [place], [address] [place] [id number] 0 Phone: () - 12/27 CBC w/ auto diff MPV fL 9.5 13.4 8.8 Low FINAL Nicole muñoz [facility] [place], [address] [place] [id number] 0 Phone: () - 12/27 CBC w/ auto diff RDW % 11.4 16.1 15.80 FINAL Nicole muñoz [facility] [place], [address] [place] [id number] 0 Phone: () - 12/27 iSTAT creat inine panel Creat inine , iSTAT mg/dl 0.6 1.3 1.0 FINAL Nicole muñoz [facility] [place], [address] [place] [id number] 0 Phone: () - 12/27 iSTAT creat inine panel GFR estim ate ml/min /1.73m ^2 61.0 GFR is calculate d using the CKD-EPI equation. FINAL Nicole muñoz [facility] [place], [address] [place] [id number] 0 Phone: () - 01/18 CMP Album in g/dL 3.2 5.2 3.7 FINAL Nicole muñoz [facility] - [place], [address] [place] [id number] 0 Phone: () - 01/18 CMP Alkal ine phosp hatas e U/L 46.0 116.0 94 FINAL Nicole muñoz [facility] - [place], [address] [facility] [id number] 0 Phone: () - 01/18 CMP ALT/S GPT U/L 7.0 40.0 33 FINAL Nicole muñoz [facility], [address] [facility] [address] [facility] [id number] 0 Phone: () - 01/18 CMP AST/S GOT U/L 13.0 40.0 18 FINAL Nicole muñoz [facility], [address] [facility] [address] [facility] [id number] 0 Phone: () - 01/18 CMP BUN mg/dL 9.0 23.0 10.0 FINAL Nicole muñoz [facility], [address] [facility] [address] [facility] [id number] 0 Phone: () - 01/18 CMP Calci um mg/dL 8.7 10.4 9.0 FINAL Nicole muñoz [facility], [facility] [address] [id number] 0 Phone: () - 01/18 CMP Chlor rakan mmol/L 96.0 114.0 108 FINAL Nicole muñoz [facility], [address] [id number] 0 Phone: () - 01/18 CMP CO2 [...] 96 hour stability window. FINAL Nicole muñoz [facility], [facility] [address] [id number] 0 Phone: () - 01/18 CMP Creat inine mg/dL 0.5 1.2 0.80 FINAL Nicole muñoz [facility], [address] [facility] [address] [facility] [id number] 0 Phone: () - 01/18 CMP GFR estim ate ml/min /1.73m ^2 79.7 GFR is calculate d using the CKD-EPI equation. FINAL Nicole muñoz [facility], [address] [facility] [id number] 0 Phone: () - 01/18 CMP Gluco se mg/dL 73.0 126.0 156 High FINAL Nicole muñoz [facility], [address] [facility] [id number] 0 Phone: () - 01/18 CMP Potas sium mmol/L 3.5 5.1 4.7 FINAL Nicole muñoz [facility], [address] [facility] [address] [facility] [id number] 0 Phone: () - 01/18 CMP Sodiu m mmol/L 136.0 145.0 145 FINAL Nicole muñoz [facility] [address] [facility] [address] [facility] [id number] 0 Phone: () - 01/18 CMP Bilir ubin, total mg/dL 0.3 1.2 0.5 FINAL Nicole muñoz [facility] [address] [facility] [address] [place] [address] [id number] 0 Phone: () - 01/18 CMP Total prote in g/dL 5.7 8.2 5.6 Low FINAL Nicole muñoz [facility] [address] [id number] 0 Phone: () - 01/18 iSTAT creat inine panel Creat inine , iSTAT mg/dl 0.6 1.3 0.8 FINAL Nicole muñoz [facility] - [place] , [address] [facility] [address] [facility] [id number] 0 Phone: () - 01/18 iSTAT creat inine panel GFR estim ate ml/min /1.73m ^2 79.7 GFR is calculate d using the CKD-EPI equation. FINAL Nicole muñoz [facility] [place] , [address] [facility] [place] [id number] 0 Phone: () - 01/18 CBC w/ auto diff WBC K/uL 3.0 8.9 12.6 High FINAL Nicole Ya [place] [facility] [place], [address] [place] [id number] 0 Phone: () - 01/18 CBC w/ auto diff HGB g/dL 11.3 15.2 9.7 Low FINAL Nicole Carmonaot a [facility] - [place], [address] [place] [id number] 0 Phone: () - 01/18 CBC w/ auto diff PLT K/uL 113.0 364.0 124 FINAL Nicole Carmonaot a [facility] - [place], [address] [place] [id number] 0 Phone: () - 01/18 CBC w/ auto diff Augustus # (ANC) K/uL 1.6 6.6 10.7 High FINAL Nicole Carmonaot a [facility] - [place], [address] [place] [id number] 0 Phone: () - 01/18 CBC w/ auto diff Augustus % % 43.0 74.0 84.3 High FINAL Nicole Terrazas a [facility] - [place], [address] [place] [id number] 0 Phone: () - 01/18 CBC w/ auto diff IG % % 0.0 0.5 4.4 High FINAL Nicole Terrazas a [facility] [place], [address] [place] [id number] 0 Phone: () - 01/18 CBC w/ auto diff IG # K/uL 0.0 0.03 0.56 High FINAL Nicole Carmonaot a [facility] - [place], [address] [place] [id number] 0 Phone: () - 01/18 CBC w/ auto diff LY % % 14.0 41.0 8.5 Low FINAL Nicole Carmonaot a [facility] [place], [address] [place] [id number] 0 Phone: () - 01/18 CBC w/ auto diff MO % % 6.0 15.0 2.6 Low FINAL Nicole Carmonaot a [facility] [place], [address] [place] [id number] 0 Phone: () - 01/18 CBC w/ auto diff EO % % 0.0 7.0 0.0 FINAL Nicole Terrazas a [facility] [place], [address] [place] [id number] 0 Phone: () - 01/18 CBC w/ auto diff BA % % 0.0 2.0 0.2 FINAL Nicole Carmonaot a [facility] [place], [address] [place] [id number] 0 Phone: () - 01/18 CBC w/ auto diff LY # K/uL 0.4 3.6 1.1 FINAL Nicole Carmonaot a [facility] [place], [address] [place] [id number] 0 Phone: () - 01/18 CBC w/ auto diff MO # K/uL 0.2 1.3 0.3 FINAL Nicole Terrazas a [facility] [place], [address] [place] [id number] 0 Phone: () - 01/18 CBC w/ auto diff EO # K/uL 0.0 0.6 0.0 FINAL Nicole Carmonaot a [facility] - [place], [address] [place] [id number] 0 Phone: () - 01/18 CBC w/ auto diff BA # K/uL 0.0 0.2 0.0 FINAL Nicole Terrazas a [facility] - [place], [address] [place] [id number] 0 Phone: () - 01/18 CBC w/ auto diff NRBC % #/100W BC 0.0 0.2 0.5 High FINAL Nicole Carmonaot a [facility] - [place], [address] [place] [id number] 0 Phone: () - 01/18 CBC w/ auto diff RBC M/uL 3.9 5.1 2.85 Low FINAL Nicole Felton Mathewot a [facility] - [place], [address] [place] [id number] 0 Phone: () - 01/18 CBC w/ auto diff HCT % 35.0 48.0 29.8 Low FINAL Nicole Ya Mathewot a [facility] - [place], [address] [place] [id number] 0 Phone: () - 01/18 CBC w/ auto diff MCV fL 80.0 104.0 104.6 High FINAL Nicole Ya Mathewot a [facility] - [place], [address] [place] [id number] 0 Phone: () - 01/18 CBC w/ auto diff MCH pg 26.0 35.0 34.0 FINAL Nicole Ya Mathewdamaris toni [facility] - [place], [address] [place] [id number] 0 Phone: () - 01/18 CBC w/ auto diff MCHC g/dL 30.0 35.0 32.6 FINAL Nicole Ya Nini muñoz [facility] - [place], [address] [place] [id number] 0 Phone: () - 01/18 CBC w/ auto diff MPV fL 9.5 13.4 9.0 Low FINAL Nicole Ya Mathewot toni [facility] - [place], [address] [place] [id number] 0 Phone: () - 01/18 CBC w/ auto diff RDW % 11.4 16.1 19.00 High FINAL Nicole Ya [place] a [facility] - [place], [address] [place] [id number] 0 Phone: () - 01/29 CBC w/ auto diff WBC K/uL 3.0 8.9 19.0 High FINAL Nicole Ya [facility] a [facility] - [place], [address] [place] [id number] 0 Phone: () - 01/29 CBC w/ auto diff HGB g/dL 11.3 15.2 8.8 Low FINAL Nicole Felton [facility] a [facility] [place], [address] [place] [id number] 0 Phone: () - 01/29 CBC w/ auto diff PLT K/uL 113.0 364.0 59 Low FINAL Nicoledarius Ya [facility]wot a [facility] - [place], [address] [place] [id number] 0 Phone: () - 01/29 CBC w/ auto diff Augustus # (ANC) K/uL 1.6 6.6 16.7 High FINAL Nicole Ya Mathewdamaris a [facility] - [place], [address] [place] [id number] 0 Phone: () - 01/29 CBC w/ auto diff Augustus % % 43.0 74.0 88.0 High FINAL Nicole Ya Mathewdamaris a [facility] - [place], [address] [place] [id number] 0 Phone: () - 01/29 CBC w/ auto diff IG % % 0.0 0.5 1.9 High FINAL Nicole Ya Mathewdamaris a [facility] - [place], [address] [place] [id number] 0 Phone: () - 01/29 CBC w/ auto diff IG # K/uL 0.0 0.03 0.36 High FINAL Nicole Ya [place] a [facility] - [place], [address] [place] [id number] 0 Phone: () - 01/29 CBC w/ auto diff LY % % 14.0 41.0 5.1 Low FINAL Nicole Ya [place] a [facility] - [place], [address] [place] [id number] 0 Phone: () - 01/29 CBC w/ auto diff MO % % 6.0 15.0 4.8 Low FINAL Nicole Carmonaot a [facility] - [place], [address] [place] [id number] 0 Phone: () - 01/29 CBC w/ auto diff EO % % 0.0 7.0 0.0 FINAL Nicole Carmonaot a [facility] - [place], [address] [place] [id number] 0 Phone: () - 01/29 CBC w/ auto diff BA % % 0.0 2.0 0.2 FINAL Nicole Terrazas a [facility] - [place], [address] [place] [id number] 0 Phone: () - 01/29 CBC w/ auto diff LY # K/uL 0.4 3.6 1.0 FINAL Nicole Terrazas a [facility] - [place], [address] [place] [id number] 0 Phone: () - 01/29 CBC w/ auto diff MO # K/uL 0.2 1.3 0.9 FINAL Nicole muñoz [facility] - [place], [address] [place] [id number] 0 Phone: () - 01/29 CBC w/ auto diff EO # K/uL 0.0 0.6 0.0 FINAL Nicole Terrazas a [facility] - [place], [address] [place] [id number] 0 Phone: () - 01/29 CBC w/ auto diff BA # K/uL 0.0 0.2 0.0 FINAL Nicole Terrazas a [facility] - [place], [address] [place] [id number] 0 Phone: () - 01/29 CBC w/ auto diff NRBC % #/100W BC 0.0 0.2 0.0 FINAL Nicole Ya [place] a [facility] - [place], [address] [place] [id number] 0 Phone: () - 01/29 CBC w/ auto diff RBC M/uL 3.9 5.1 2.58 Low FINAL Nicole Carmonaot a [facility] - [place], [address] [place] [id number] 0 Phone: () - 01/29 CBC w/ auto diff HCT % 35.0 48.0 27.0 Low FINAL Nicole Terrazas a [facility] - [place], [address] [place] [id number] 0 Phone: () - 01/29 CBC w/ auto diff MCV fL 80.0 104.0 104.7 High FINAL Nicole Terrazas a [facility] - [place], [address] [place] [id number] 0 Phone: () - 01/29 CBC w/ auto diff MCH pg 26.0 35.0 34.1 FINAL Nicole Ya Nini muñoz [facility] - [place], [address] [place] [id number] 0 Phone: () - 01/29 CBC w/ auto diff MCHC g/dL 30.0 35.0 32.6 FINAL Nicole Terrazas a [facility] - [place], [address] [place] [id number] 0 Phone: () - 01/29 CBC w/ auto diff MPV fL 9.5 13.4 9.3 Low FINAL Nicole mu[facility]oz [facility] [place], [address] [place] [phone] 0 Phone: () - 01/29 CBC w/ auto diff RDW % 11.4 16.1 17.80 High FINAL Nicole Terrazas a [facility] [place], [address] [place] [id number] 0 Phone: () - 01/29 iSTAT Na+/K +/Cl- panel Sodiu m, iSTAT mmol/L 138.0 146.0 134 Low Reference range adjusted 0 with implement ation of I-Stat 8+ cartridge . FINAL Nicole Felton Terrazas a [facility] [place], [address] [place] [id number] 0 Phone: () - 01/29 iSTAT Na+/K +/Cl- panel Potas sium, iSTAT mmol/L 3.5 4.9 3.4 Low Reference range adjusted 0 with implement ation of I-Stat 8+ cartridge . FINAL Nicole mu[facility] [place], [address] [place] [phone] 0 Phone: () - 01/29 iSTAT Na+/K +/Cl- panel Chlor rakan, iSTAT mmol/L 98.0 109.0 97 Low Reference range adjusted 0 with implement ation of I-Stat 8+ cartridge . FINAL Nicole [facility] [place], [address] [place] [id number] 0 Phone: () - 02/05 CBC w/ auto diff BA # K/uL 0.0 0.2 0.0 FINAL Nicole mu[facility]oz [facility] [place], [address] [place] [id number] 0 Phone: () - 02/05 CBC w/ auto diff NRBC % #/100W BC 0.0 0.2 0.1 FINAL Nicole mu[facility]oz [facility] - [place], [address] [place] [id number] 0 Phone: () - 02/05 CBC w/ auto diff RBC M/uL 3.9 5.1 2.96 Low FINAL Nicole mu[facility]oz [facility] - [place], [address] [place] [id number] 0 Phone: () - 02/05 CBC w/ auto diff HCT % 35.0 48.0 30.3 Low FINAL Nicole mu[facility]oz [facility] - [place], [address] [place] [id number] 0 Phone: () - 02/05 CBC w/ auto diff MCV fL 80.0 104.0 102.4 FINAL Nicole Carmonaot a [facility] - [place], [address] [place] [id number] 0 Phone: () - 02/05 CBC w/ auto diff MCH pg 26.0 35.0 33.8 FINAL Nicole Carmonaot a [facility] - [place], [address] [place] [id number] 0 Phone: () - 02/05 CBC w/ auto diff MCHC g/dL 30.0 35.0 33.0 FINAL Nicole Carmonaot [facility] - [place], [address] [place] [id number] 0 Phone: () - 02/05 CBC w/ auto diff MPV fL 9.5 13.4 8.5 Low FINAL Nicole Carmonaot [facility] - [place], [address] [place] [phone] 0 Phone: () - 02/05 CBC w/ auto diff RDW % 11.4 16.1 16.10 FINAL Nicole Terrazas [facility] [place], [address] [place] [id number] 0 Phone: () - 02/05 CBC w/ auto diff WBC K/uL 3.0 8.9 16.6 High FINAL Nicole Carmonaot [facility] - [place], [address] [place] [id number] 0 Phone: () - 02/05 CBC w/ auto diff HGB g/dL 11.3 15.2 10.0 Low FINAL Nicole Carmonaot [facility] - [place], [address] [place] [id number] 0 Phone: () - 02/05 CBC w/ auto diff PLT K/uL 113.0 364.0 122 FINAL Nicole Carmonaot [facility] - [place], [address] [place] [id number] 0 Phone: () - 02/05 CBC w/ auto diff Augustus # (ANC) K/uL 1.6 6.6 12.9 High FINAL Nicole Carmonaot [facility] - [place], [address] [place] [id number] 0 Phone: () - 02/05 CBC w/ auto diff Augustus % % 43.0 74.0 77.5 High FINAL Nicole Carmonaot [facility] - [place], [address] [place] [id number] 0 Phone: () - 02/05 CBC w/ auto diff IG % % 0.0 0.5 1.1 High FINAL Nicole Carmonaot [facility] [place], [address] [place] [id number] 0 Phone: () - 02/05 CBC w/ auto diff IG # K/uL 0.0 0.03 0.19 High FINAL Nicole Carmonaot [facility] [place], [address] [place] [id number] 0 Phone: () - 02/05 CBC w/ auto diff LY % % 14.0 41.0 11.4 Low FINAL Nicole Terrazas [facility] [place], [address] [place] [id number] 0 Phone: () - 02/05 CBC w/ auto diff MO % % 6.0 15.0 9.9 FINAL Nicole Carmonaot a [facility] - [place], [address] [place] [id number] 0 Phone: () - 02/05 CBC w/ auto diff EO % % 0.0 7.0 0.0 FINAL Nicole Carmonaot [facility] [place], [address] [place] [id number] 0 Phone: () - 02/05 CBC w/ auto diff BA % % 0.0 2.0 0.1 FINAL Nicole Carmonaot a [facility] - [place], [address] [place] [id number] 0 Phone: () - 02/05 CBC w/ auto diff LY # K/uL 0.4 3.6 1.9 FINAL Nicole mu[facility] [place], [address] [place] [id number] 0 Phone: () - 02/05 CBC w/ auto diff MO # K/uL 0.2 1.3 1.6 High FINAL Nicole mu[facility]oz [facility] - [place], [address] [place] [id number] 0 Phone: () - 02/05 CBC w/ auto diff EO # K/uL 0.0 0.6 0.0 FINAL Nicole mu[facility] - [place], [address] [place] [id number] 0 Phone: () - 02/05 iSTAT Na+/K +/Cl- panel Sodiu m, iSTAT mmol/L 138.0 146.0 134 Low Reference range adjusted 0 with implement ation of I-Stat 8+ cartridge . FINAL Nicole [facility] [place], [address] [place] [id number] 0 Phone: () - 02/05 iSTAT Na+/K +/Cl- panel Potas sium, iSTAT mmol/L 3.5 4.9 3.1 Low Reference range adjusted 0 with implement ation of I-Stat 8+ cartridge . FINAL Nicole [facility] [place], [address] [place] [id number] 0 Phone: () - 02/05 iSTAT Na+/K +/Cl- panel Chlor rakan, iSTAT mmol/L 98.0 109.0 95 Low Reference range adjusted 0 with implement ation of I-Stat 8+ cartridge . FINAL Nicole mu[facility] - [place], [address] [place] [id number] 0 Phone: () - 02/05 iSTAT creat inine panel Creat inine , iSTAT mg/dl 0.6 1.3 0.8 FINAL Tiara muñoz [facility] - [place], [address] [facility] [address] [facility] [address] [facility] [place] [id number] 0 Phone: () - 02/05 iSTAT creat inine panel GFR estim ate ml/min /1.73m ^2 79.7 GFR is calculate d using the CKD-EPI equation. FINAL Tiara muñoz [facility] - [place], [address] [facility] [place] [id number] 0 Phone: () - 02/05 Magne sium, mg/dL mg/dL 1.5 2.3 1.4 Low FINAL Tiara muñoz [facility] - [place], [address] [place] [id number] 0 Phone: () - 02/07 Magne sium, mg/dL mg/dL 1.5 2.3 1.5 FINAL Tiara muñoz [facility] - [place], [address] [place] [id number] 0 Phone: () - 02/07 iSTAT Na+/K +/Cl- panel Sodiu m, iSTAT mmol/L 138.0 146.0 137 Low Reference range adjusted 0 with implement ation of I-Stat 8+ cartridge . FINAL Tiara muñoz [facility] - [place], [address] [facility] [address] [facility] [place] [id number] 0 Phone: () - 02/07 iSTAT Na+/K +/Cl- panel Potas sium, iSTAT mmol/L 3.5 4.9 3.2 Low Reference range adjusted 0 with implement ation of I-Stat 8+ cartridge . FINAL Tiara muñoz [facility] - [place], [address] [facility] [address] [facility] [place] [id number] 0 Phone: () - 02/07 iSTAT Na+/K +/Cl- panel Chlor rakan, iSTAT mmol/L 98.0 109.0 100 Reference range adjusted 0 with implement ation of I-Stat 8+ cartridge . FINAL Tiara Carmonaot a [facility] - [place], [address] [place] [id number] 0 Phone: () - 02/07 iSTAT creat inine panel Creat inine , iSTAT mg/dl 0.6 1.3 1.0 FINAL Tiara Carmonaot a [facility] - [place], [address] [place] [id number] 0 Phone: () - 02/07 iSTAT creat inine panel GFR estim ate ml/min /1.73m ^2 61.0 GFR is calculate d using the CKD-EPI equation. FINAL Tiara Terrazas a [facility] - [place], [address] [facility] [address] [place] [id number] 0 Phone: () - 02/08 Clost ridiu [...] been establish ed.This assay was performed by [employer] Gene[employer]pert (R) PCR.The performan ce character istics of this assay havebeen determine d by [employer] cs. Performan cecharact eristics refer to the analytica l performan ceof the test.For additiona l informati on, please refer tohttp:// [email or web address]/faq/F [email or web address](Thi s link is being provided forinform ational/e ducationa l purposes only.)[CA ] FINAL Tiara NEGRETE, [employer] [facility] [address] [facility] [id number] 4 02/08 Clost ridiu m diffi cile toxin PCR panel CLOST RIDIU M DIFFI CILE TOXIN /GDH W/REF L TO PCR SEE NOTE CLOSTRIDI UM DIFFICILE TOXIN/GDH W/REFL TO PCRMicro Number: [id number] est Status: FinalSpec imen Source: StoolSpec imen Quality: AdequateG DH Antigen: DetectedT oxin A and B: Not DetectedC OMMENT: Indetermi vikram. Specimen forwarded [facility], [place] cesar C. difficile PCR testing.F or additiona l informati on, please refer tohttp:// education .qLearning/faq/F [email or web address](Thi s link is being provided forinform ational/e ducationa l purposes only.)[CB ] FINAL Tiara Coronado QUEST, [employer] [facility] [address] [facility] [phone] 4 02/08 iSTAT creat inine panel Creat inine , iSTAT mg/dl 0.6 1.3 0.8 FINAL Nicole mu[facility]oz [facility] [place] , [address] [facility] [address] [place] [phone] 0 Phone: () - 02/08 iSTAT creat inine panel GFR estim ate ml/min /1.73m ^2 79.7 GFR is calculate d using the CKD-EPI equation. FINAL Nicole mu[facility]oz [facility] - [place], [address] [facility] [address] [facility] [id number] 0 Phone: () - 02/08 CMP Album in g/dL 3.2 5.2 3.2 FINAL Nicole muñoz On[facility], [address] [facility] [place] [phone] 0 Phone: () - 02/08 CMP Alkal ine phosp hatas e U/L 46.0 116.0 85 FINAL Nicole muñoz [facility], [address] [facility] [place] [phone] 0 Phone: () - 02/08 CMP ALT/S GPT U/L 7.0 40.0 24 FINAL Nicole muñoz [facility], [facility] [address] [facility] [address] [facility] [id number] 0 Phone: () - 02/08 CMP AST/S GOT U/L 13.0 40.0 16 FINAL Nicole Terrazas [place] [address] [address] [facility] [address] [facility] [id number] 0 Phone: () - 02/08 CMP BUN mg/dL 9.0 23.0 8.0 Low FINAL [place] [address] [address] [facility] [address] [id number] 0 Phone: () - 02/08 CMP Calci um mg/dL 8.7 10.4 8.3 Low FINAL Nicole Terrazas [place] [address] [address] [facility] [address] [id number] 0 Phone: () - 02/08 CMP Chlor rakan mmol/L 96.0 114.0 111 FINAL Nicole Terrazas [place] [address] [address] [facility] [address] [id number] 0 Phone: () - 02/08 CMP CO2 [...] 96 hour stability window. FINAL Nicole muñoz [place] [address] [address] [facility] [address] [place] [id number] 0 Phone: () - 02/08 CMP Creat inine mg/dL 0.5 1.2 0.86 FINAL Nicole muñoz [place] [address] [address] [facility] [address] [phone] 0 Phone: () - 02/08 CMP GFR estim ate ml/min /1.73m ^2 73.0 GFR is calculate d using the CKD-EPI equation. FINAL Nicole Terrazas [facility], [address] [facility] [id number] 0 Phone: () - 02/08 CMP Gluco se mg/dL 73.0 126.0 129 High FINAL Nicole muñoz [facility], [address] [facility] [facility] [facility] [id number] 0 Phone: () - 02/08 CMP Potas sium mmol/L 3.5 5.1 3.6 FINAL Nicole muñoz [facility], [address] [facility] [facility] [facility] [id number] 0 Phone: () - 02/08 CMP Sodiu m mmol/L 136.0 145.0 144 FINAL Nicole muñoz [facility], [address] [facility] [facility] [id number] 0 Phone: () - 02/08 CMP Bilir ubin, total mg/dL 0.3 1.2 0.3 FINAL Nicole muñoz [facility], [address] [id number] 0 Phone: () - 02/08 CMP Total prote in g/dL 5.7 8.2 4.8 Low FINAL Nicole muñoz [facility], [address] [facility] [address] [phone] 0 Phone: () - 02/08 CBC w/ auto diff WBC K/uL 3.0 8.9 17.2 High FINAL Nicole mu[facility]oz [facility] [place], [address] [facility] [address] [place] [id number] 0 Phone: () - 02/08 CBC w/ auto diff HGB g/dL 11.3 15.2 7.9 Critica l hematol ogy result obtaine d Criti todd Low FINAL Nicole mu[facility]oz [facility] [place], [address] [place] [id number] 0 Phone: () - 02/08 CBC w/ auto diff PLT K/uL 113.0 364.0 123 FINAL Nicole muñoz [facility] - [place], [address] [facility] [address] [place] [id number] 0 Phone: () - 02/08 CBC w/ auto diff Augustus # (ANC) K/uL 1.6 6.6 13.8 High FINAL Nicole Ya Mathewot a [facility] - [place], [address] [place] [id number] 0 Phone: () - 02/08 CBC w/ auto diff Augustus % % 43.0 74.0 80.0 High FINAL Nicole Felton Mathewot a [facility] - [place], [address] [place] [id number] 0 Phone: () - 02/08 CBC w/ auto diff IG % % 0.0 0.5 2.2 High FINAL Nicole Felton Mathewot a [facility] - [place], [address] [place] [id number] 0 Phone: () - 02/08 CBC w/ auto diff IG # K/uL 0.0 0.03 0.38 High FINAL Nicole Felton Mathewdamaris toni [facility] - [place], [address] [place] [id number] 0 Phone: () - 02/08 CBC w/ auto diff LY % % 14.0 41.0 9.3 Low FINAL Nicole Felton Mathewot a [facility] - [place], [address] [place] [id number] 0 Phone: () - 02/08 CBC w/ auto diff MO % % 6.0 15.0 8.4 FINAL Nicole Ya Mathewot a [facility] - [place], [address] [place] [id number] 0 Phone: () - 02/08 CBC w/ auto diff EO % % 0.0 7.0 0.0 FINAL Nicole Felton Mathewot a [facility] - [place], [address] [place] [id number] 0 Phone: () - 02/08 CBC w/ auto diff BA % % 0.0 2.0 0.1 FINAL Nicole Ya Mathewot a [facility] - [place], [address] [place] [id number] 0 Phone: () - 02/08 CBC w/ auto diff LY # K/uL 0.4 3.6 1.6 FINAL Nicole Carmonaot a [facility] - [place], [address] [place] [id number] 0 Phone: () - 02/08 CBC w/ auto diff MO # K/uL 0.2 1.3 1.5 High FINAL Nicole Carmonaot a [facility] - [place], [address] [place] [id number] 0 Phone: () - 02/08 CBC w/ auto diff EO # K/uL 0.0 0.6 0.0 FINAL Nicole Carmonaot a [facility] - [place], [address] [place] [id number] 0 Phone: () - 02/08 CBC w/ auto diff BA # K/uL 0.0 0.2 0.0 FINAL Nicole Carmonaot a [facility] - [place], [address] [place] [id number] 0 Phone: () - 02/08 CBC w/ auto diff NRBC % #/100W BC 0.0 0.2 0.3 High FINAL Nicole Carmonaot a [facility] - [place], [address] [place] [id number] 0 Phone: () - 02/08 CBC w/ auto diff RBC M/uL 3.9 5.1 2.33 Low FINAL Nicole Carmonaot a [facility] - [place], [address] [place] [id number] 0 Phone: () - 02/08 CBC w/ auto diff HCT % 35.0 48.0 24.6 Low FINAL Nicole Carmonaot a [facility] - [place], [address] [place] [id number] 0 Phone: () - 02/08 CBC w/ auto diff MCV fL 80.0 104.0 105.6 High FINAL Nicole Carmonaot a [facility] - [place], [address] [place] [id number] 0 Phone: () - 02/08 CBC w/ auto diff MCH pg 26.0 35.0 33.9 FINAL Nicole Carmonaot a [facility] - [place], [address] [place] [id number] 0 Phone: () - 02/08 CBC w/ auto diff MCHC g/dL 30.0 35.0 32.1 FINAL Nicole Carmonaot a [facility] - [place], [address] [place] [id number] 0 Phone: () - 02/08 CBC w/ auto diff MPV fL 9.5 13.4 9.1 Low FINAL Nicole Carmonaot a [facility] - [place], [address] [place] [id number] 0 Phone: () - 02/08 CBC w/ auto diff RDW % 11.4 16.1 16.70 High FINAL Nicole Carmonaot a [facility] - [place], [address] [place] [id number] 0 Phone: () - 02/12 CBC w/ auto diff WBC K/uL 3.0 8.9 9.0 High FINAL Nicole Carmonaot a [facility] - [place], [address] [place] [id number] 0 Phone: () - 02/12 CBC w/ auto diff HGB g/dL 11.3 15.2 8.7 Low FINAL Nicole Carmonaot a [facility] - [place], [address] [place] [id number] 0 Phone: () - 02/12 CBC w/ auto diff PLT K/uL 113.0 364.0 154 FINAL Nicole Carmonaot a [facility] - [place], [address] [place] [id number] 0 Phone: () - 02/12 CBC w/ auto diff Augustus # (ANC) K/uL 1.6 6.6 6.5 FINAL Nicole Terrazas a [facility] - [place], [address] [place] [id number] 0 Phone: () - 02/12 CBC w/ auto diff Augustus % % 43.0 74.0 72.4 FINAL Nicole Terrazas a [facility] - [place], [address] [place] [id number] 0 Phone: () - 02/12 CBC w/ auto diff IG % % 0.0 0.5 0.9 High FINAL Nicole Terrazas a [facility] - [place], [address] [place] [id number] 0 Phone: () - 02/12 CBC w/ auto diff IG # K/uL 0.0 0.03 0.08 High FINAL Nicole muñoz [facility] - [place], [address] [place] [id number] 0 Phone: () - 02/12 CBC w/ auto diff LY % % 14.0 41.0 17.0 FINAL Nicole muñoz [facility] - [place], [address] [place] [id number] 0 Phone: () - 02/12 CBC w/ auto diff MO % % 6.0 15.0 9.4 FINAL Nicole muñoz [facility] - [place], [address] [place] [id number] 0 Phone: () - 02/12 CBC w/ auto diff EO % % 0.0 7.0 0.3 FINAL Nicole Carmonaot a [facility] - [place], [address] [place] [id number] 0 Phone: () - 02/12 CBC w/ auto diff BA % % 0.0 2.0 0.0 FINAL Nicole Ya Mathewot a [facility] - [place], [address] [place] [id number] 0 Phone: () - 02/12 CBC w/ auto diff LY # K/uL 0.4 3.6 1.5 FINAL Nicole Ya Nini a [facility] - [place], [address] [place] [id number] 0 Phone: () - 02/12 CBC w/ auto diff MO # K/uL 0.2 1.3 0.8 FINAL Nicole Ya Nini a [facility] - [place], [address] [place] [id number] 0 Phone: () - 02/12 CBC w/ auto diff EO # K/uL 0.0 0.6 0.0 FINAL Nicole Felton Nini muñoz [facility] - [place], [address] [place] [id number] 0 Phone: () - 02/12 CBC w/ auto diff BA # K/uL 0.0 0.2 0.0 FINAL Nicole Felton Nini muñoz [facility] - [place], [address] [place] [id number] 0 Phone: () - 02/12 CBC w/ auto diff NRBC % #/100W BC 0.0 0.2 0.0 FINAL Nicole Felton Nini a [facility] - [place], [address] [place] [id number] 0 Phone: () - 02/12 CBC w/ auto diff RBC M/uL 3.9 5.1 2.54 Low FINAL Nicole Ya Mathewot a [facility] - [place], [address] [place] [id number] 0 Phone: () - 02/12 CBC w/ auto diff HCT % 35.0 48.0 27.5 Low FINAL Nicole Ya Mathewot a [facility] - [place], [address] [place] [id number] 0 Phone: () - 02/12 CBC w/ auto diff MCV fL 80.0 104.0 108.3 High FINAL Nicole Felton Mathewot a [facility] - [place], [address] [place] [id number] 0 Phone: () - 02/12 CBC w/ auto diff MCH pg 26.0 35.0 34.3 FINAL Nicole muñoz [facility] - [place], [address] [place] [id number] 0 Phone: () - 02/12 CBC w/ auto diff MCHC g/dL 30.0 35.0 31.6 FINAL Nicole muñoz [facility] - [place], [address] [place] [id number] 0 Phone: () - 02/12 CBC w/ auto diff MPV fL 9.5 13.4 8.3 Low FINAL Nicole muñoz [facility] - [place], [address] [place] [id number] 0 Phone: () - 02/12 CBC w/ auto diff RDW % 11.4 16.1 17.40 High FINAL Nicole muñoz [facility] - [place], [address] [place] [id number] 0 Phone: () - 02/12 iSTAT Na+/K +/Cl- panel Sodiu m, iSTAT mmol/L 138.0 146.0 139 Reference range adjusted 0 with implement ation of I-Stat 8+ cartridge . FINAL Nicole muñoz [facility] - [place], [address] [place] [id number] 0 Phone: () - 02/12 iSTAT Na+/K +/Cl- panel Potas sium, iSTAT mmol/L 3.5 4.9 3.8 Reference range adjusted 0 with implement ation of I-Stat 8+ cartridge . FINAL Nicole muñoz [facility] - [place], [address] [place] [id number] 0 Phone: () - 02/12 iSTAT Na+/K +/Cl- panel Chlor rakan, iSTAT mmol/L 98.0 109.0 100 Reference range adjusted 0 with implement ation of I-Stat 8+ cartridge . FINAL Nicole muñoz [facility] - [place], [address] [facility] [address] [place] [id number] 0 Phone: () - 02/12 Magne sium, mg/dL mg/dL 1.5 2.3 1.5 FINAL Nicole Ya Mathewdamaris toni [facility] - [place], [address] [place] [id number] 0 Phone: () - 03/01 CBC w/ auto diff WBC K/uL 3.0 8.9 4.5 FINAL Nicole Ya Mathewdamaris muñoz [facility] - [place], [address] [facility] [address] [place] [id number] 0 Phone: () - 03/01 CBC w/ auto diff HGB g/dL 11.3 15.2 8.8 Low FINAL Nicole Ya Mathewdamaris toni [facility] - [place], [address] [facility] [address] [place] [id number] 0 Phone: () - 03/01 CBC w/ auto diff PLT K/uL 113.0 364.0 154 FINAL Nicole Carmonadamaris muñoz [facility] - [place], [address] [facility] [address] [place] [id number] 0 Phone: () - 03/01 CBC w/ auto diff Augustus # (ANC) K/uL 1.6 6.6 2.2 FINAL Nicole Ya Mathewdamaris toni On[facility] - [place], [address] [place] [id number] 0 Phone: () - 03/01 CBC w/ auto diff Augustus % % 43.0 74.0 49.9 FINAL Nicole Carmonadamaris toni [facility] - [place], [address] [facility] [address] [place] [id number] 0 Phone: () - 03/01 CBC w/ auto diff IG % % 0.0 0.5 0.7 High FINAL Nicole Ya Mathewdamaris muñoz [facility] - [place], [address] [place] [id number] 0 Phone: () - 03/01 CBC w/ auto diff IG # K/uL 0.0 0.03 0.03 FINAL Nicole Ya Mathewot a [facility] - [place], [address] [place] [id number] 0 Phone: () - 03/01 CBC w/ auto diff LY % % 14.0 41.0 32.0 FINAL Nicole Felton Mathewot a [facility] - [place], [address] [place] [id number] 0 Phone: () - 03/01 CBC w/ auto diff MO % % 6.0 15.0 14.5 FINAL Nicole Ya Mathewot a [facility] - [place], [address] [place] [id number] 0 Phone: () - 03/01 CBC w/ auto diff EO % % 0.0 7.0 2.5 FINAL Nicole Felton Mathewot a [facility] - [place], [address] [place] [id number] 0 Phone: () - 03/01 CBC w/ auto diff BA % % 0.0 2.0 0.4 FINAL Nicole Felton Mathewot a [facility] - [place], [address] [place] [id number] 0 Phone: () - 03/01 CBC w/ auto diff LY # K/uL 0.4 3.6 1.4 FINAL Nicole Ya Mathewot a [facility] - [place], [address] [place] [id number] 0 Phone: () - 03/01 CBC w/ auto diff MO # K/uL 0.2 1.3 0.7 FINAL Nicole Felton Mathewot a [facility] - [place], [address] [place] [id number] 0 Phone: () - 03/01 CBC w/ auto diff EO # K/uL 0.0 0.6 0.1 FINAL Nicole Felton Carmonaot a [facility] - [place], [address] [place] [id number] 0 Phone: () - 03/01 CBC w/ auto diff BA # K/uL 0.0 0.2 0.0 FINAL Nicole Terrazas a [facility] - [place], [address] [place] [id number] 0 Phone: () - 03/01 CBC w/ auto diff NRBC % #/100W BC 0.0 0.2 0.0 FINAL Nicole Terrazas a [facility] - [place], [address] [place] [id number] 0 Phone: () - 03/01 CBC w/ auto diff RBC M/uL 3.9 5.1 2.57 Low FINAL Nicole Terrazas a [facility] - [place], [address] [place] [id number] 0 Phone: () - 03/01 CBC w/ auto diff HCT % 35.0 48.0 28.5 Low FINAL Nicole muñoz [facility] [place], [address] [place] [phone] 0 Phone: () - 03/01 CBC w/ auto diff MCV fL 80.0 104.0 110.9 High FINAL Nicole muñoz [facility] [place], [address] [place] [id number] 0 Phone: () - 03/01 CBC w/ auto diff MCH pg 26.0 35.0 34.2 FINAL Nicole muñoz [facility] [place], [address] [place] [id number] 0 Phone: () - 03/01 CBC w/ auto diff MCHC g/dL 30.0 35.0 30.9 FINAL Nicole Carmonaot a [facility] [place], [address] [place] [id number] 0 Phone: () - 03/01 CBC w/ auto diff MPV fL 9.5 13.4 8.2 Low FINAL Nicole muñoz [facility] [place], [address] [place] [id number] 0 Phone: () - 03/01 CBC w/ auto diff RDW % 11.4 16.1 15.70 FINAL Nicole muñoz [facility] [place], [address] [place] [id number] 0 Phone: () - 03/01 CMP Album in g/dL 3.2 5.2 3.4 FINAL Nicole muñoz [facility], [address] [place] [address] [id number] 0 Phone: () - 03/01 CMP Alkal ine phosp hatas e U/L 46.0 116.0 89 FINAL Nicole muñoz [facility], [address] [place] [address] [phone] 0 Phone: () - 03/01 CMP ALT/S GPT U/L 7.0 40.0 15 FINAL Nicole muñoz [facility], [address] [place] [address] [id number] 0 Phone: () - 03/01 CMP AST/S GOT U/L 13.0 40.0 18 FINAL Nicole muñoz [facility], [address] [place] [address] [id number] [phone] Phone: () - 03/01 CMP BUN mg/dL 9.0 23.0 9.0 FINAL Nicole muñoz [facility], [address] [place] [address] [id number] 0 Phone: () - 03/01 CMP Calci um mg/dL 8.7 10.4 8.5 Low FINAL Nicole muñoz [facility], [facility] [address] [place] [address] [id number] 0 Phone: () - 03/01 CMP Chlor rakan mmol/L 96.0 114.0 113 FINAL Nicole muñoz [facility], [facility] [address] [place] [address] [phone] 0 Phone: () - 03/01 CMP CO2 [...] 96 hour stability window. FINAL Nicole Terrazas [facility], [address] [id number] 0 Phone: () - 03/01 CMP Creat inine mg/dL 0.5 1.2 0.98 FINAL [place] [address] [id number] 0 Phone: () - 03/01 CMP GFR estim ate ml/min /1.73m ^2 62.4 GFR is calculate d using the CKD-EPI equation. FINAL Nicole Terrazas [place] [address] [id number] 0 Phone: () - 03/01 CMP Gluco se mg/dL 73.0 126.0 136 High [facility] [address] [id number] 0 Phone: () - 03/01 CMP Potas sium mmol/L 3.5 5.1 4.3 [facility] [address] [id number] 0 Phone: () - 03/01 CMP Sodiu m mmol/L 136.0 145.0 147 High [facility] [address] [facility] [address] [phone] 0 Phone: () - 03/01 CMP Bilir ubin, total mg/dL 0.3 1.2 0.5 [facility] [address] [facility] [address] [id number] 0 Phone: () - 03/01 CMP Total prote in g/dL 5.7 8.2 5.2 Low FINAL Nicole Carmonaot a [facility] [place], [address] [place] [id number] 0 Phone: () - 04/12 CBC w/ auto diff WBC K/uL 3.0 8.9 5.3 FINAL Nicole Ya Mathewdamaris muñoz [facility] [place], [address] [place] [id number] 0 Phone: () - 04/12 CBC w/ auto diff HGB g/dL 11.3 15.2 9.4 Low FINAL Nicole Ya Mathew[facility] a [facility] [place], [address] [place] [id number] 0 Phone: () - 04/12 CBC w/ auto diff PLT K/uL 113.0 364.0 167 FINAL Nicole muñoz [facility] [place], [address] [place] [id number] 0 Phone: () - 04/12 CBC w/ auto diff Augustus # (ANC) K/uL 1.6 6.6 3.0 FINAL Nicole muñoz [facility] [place], [address] [place] [id number] 0 Phone: () - 04/12 CBC w/ auto diff Augustus % % 43.0 74.0 57.5 FINAL Niocle muñoz [facility] [place], [address] [place] [id number] 0 Phone: () - 04/12 CBC w/ auto diff IG % % 0.0 0.5 0.4 FINAL Nicole muñoz [facility] [place], [address] [place] [id number] 0 Phone: () - 04/12 CBC w/ auto diff IG # K/uL 0.0 0.03 0.02 FINAL Nicole Terrazas a [facility] [place], [address] [place] [id number] 0 Phone: () - 04/12 CBC w/ auto diff LY % % 14.0 41.0 28.6 FINAL Nicole Ya [facility] [place], [address] [place] [id number] 0 Phone: () - 04/12 CBC w/ auto diff MO % % 6.0 15.0 11.6 FINAL Nicole Terrazas a [facility] [place], [address] [place] [id number] 0 Phone: () - 04/12 CBC w/ auto diff EO % % 0.0 7.0 1.5 FINAL Nicole Terrazas a [facility] [place], [address] [place] [id number] 0 Phone: () - 04/12 CBC w/ auto diff BA % % 0.0 2.0 0.4 FINAL Nicole Terrazas a [facility] [place], [address] [place] [id number] 0 Phone: () - 04/12 CBC w/ auto diff LY # K/uL 0.4 3.6 1.5 FINAL Nicole Terrazas a [facility] [place], [address] [place] [id number] 0 Phone: () - 04/12 CBC w/ auto diff MO # K/uL 0.2 1.3 0.6 FINAL Nicole Terrazas a [facility] [place], [address] [place] [id number] 0 Phone: () - 04/12 CBC w/ auto diff EO # K/uL 0.0 0.6 0.1 FINAL Nicole Terrazas a [facility] [place], [address] [place] [id number] 0 Phone: () - 04/12 CBC w/ auto diff BA # K/uL 0.0 0.2 0.0 FINAL iNcole Terrazas a [facility] - [place], [address] [place] [id number] 0 Phone: () - 04/12 CBC w/ auto diff NRBC % #/100W BC 0.0 0.2 0.0 FINAL Nicole Carmonaot a [facility] [place], [address] [place] [id number] 0 Phone: () - 04/12 CBC w/ auto diff RBC M/uL 3.9 5.1 2.94 Low FINAL Nicole Terrazas a [facility] [place], [address] [place] [id number] 0 Phone: () - 04/12 CBC w/ auto diff HCT % 35.0 48.0 29.6 Low FINAL Nicole Terrazas a [facility] [place], [address] [place] [id number] 0 Phone: () - 04/12 CBC w/ auto diff MCV fL 80.0 104.0 100.7 FINAL Nicole muñoz [facility] [place], [address] [place] [id number] 0 Phone: () - 04/12 CBC w/ auto diff MCH pg 26.0 35.0 32.0 FINAL Nicole Terrazas a [facility] [place], [address] [place] [id number] 0 Phone: () - 04/12 CBC w/ auto diff MCHC g/dL 30.0 35.0 31.8 FINAL Nicole Terrazas a [facility] [place], [address] [place] [id number] 0 Phone: () - 04/12 CBC w/ auto diff MPV fL 9.5 13.4 9.5 FINAL Nicole Carmonaot a [facility] [place], [address] [place] [id number] 0 Phone: () - 04/12 CBC w/ auto diff RDW % 11.4 16.1 12.30 FINAL Nicole Carmonaot a [facility] [place], [address] [place] [id number] 0 Phone: () - 04/12 CMP Album in g/dL 3.2 5.2 3.8 [facility], [address] [facility] [address] [id number] 0 Phone: () - 04/12 CMP Alkal ine phosp hatas e U/L 46.0 116.0 90 [facility] [address] [facility] [address] [id number] 0 Phone: () - 04/12 CMP ALT/S GPT U/L 7.0 40.0 17 FINAL [facility] [address] [id number] 0 Phone: () - 04/12 CMP AST/S GOT U/L 13.0 40.0 18 FINAL [facility] [address] [facility] [address] [id number] 0 Phone: () - 04/12 CMP BUN mg/dL 9.0 23.0 14.0 FINAL [facility] [address] [facility] [address] [id number] 0 Phone: () - 04/12 CMP Calci um mg/dL 8.7 10.4 9.1 FINAL [place] [address] [address] [facility] [address] [phone] 0 Phone: () - 04/12 CMP Chlor rakan mmol/L 96.0 114.0 110 FINAL [place] [address] [address] [facility] [address] [phone] 0 Phone: () - 04/12 CMP CO2 [...] the 96 hour stability window. [facility], [facility] [address] [id number] 0 Phone: () - 04/12 CMP Creat inine mg/dL 0.5 1.2 0.86 FINAL Nicole Terrazas [facility], [facility] [address] [facility] [address] [place] [address] [id number] 0 Phone: () - 04/12 CMP GFR estim ate ml/min /1.73m ^2 73.0 GFR is calculate d using the CKD-EPI equation. FINAL Nicole muñoz [place] [address] [address] [facility] [address] [id number] 0 Phone: () - 04/12 CMP Gluco se mg/dL 73.0 126.0 85 FINAL Nicole Terrazas [place] [address] [id number] 0 Phone: () - 04/12 CMP Potas sium mmol/L 3.5 5.1 3.8 FINAL Nicole Terrazas [place] [address] [id number] 0 Phone: () - 04/12 CMP Sodiu m mmol/L 136.0 145.0 146 High FINAL Nicole Terrazas [place] [address] [address] [facility] [address] [id number] 0 Phone: () - 04/12 CMP Bilir ubin, total mg/dL 0.3 1.2 0.3 FINAL Nicole Terrazas [place] [address] [address] [facility] [address] [id number] 0 Phone: () - 04/12 CMP Total prote in g/dL 5.7 8.2 5.6 Low FINAL Nicole Terrazas [facility], [facility] [address] [facility] [address] [id number] 0 Phone: () - 04/12 PRIOR RESUL T Not Given FINAL Nicole NEGRETE [facility] [address] [place] [id number] 4 04/12 SOUR E: Periphe ral Blood FINAL Nicole NEGRETE, [facility] [address] [place] [id number] 4 04/12 BCR ABL1/ ABL1 % % 0.000 FINAL Nicole Ya [facility], [facility] [address] [place] [id number] 4 04/12 BCR ABL1/ ABL1 % (IS) % 0.000 FINAL Nicole NEGRETE, [facility] [address] [place] [id number] 4 04/12 INTER PRETA TION see note [...] l informati on, please refer tohttp:// [email or web address] [email or web address](This link is being provided forinform ational/e ducationa l purposes only.)Ass ay sensitivi ty is at least 4.5-logs below baselineB CR-ABL1 transcrip t levels but is dependent onquantit y and quality of RNA used for testing and thecellul arity of the sample.Th is test was developed and its analytica lperforma nce character istics have been determine dby [facility] [place], [place].It has not been cleared or approved by the FDA. Thisassay has been validated pursuant to the CLIAregul ations and is used for clinical purposes. Alejandro Ya, Ph.D, HCLD (ABB)Scie ntific Director, Molecular Oncology FINAL Nicole NEGRETE, [facility] [address] [place] [id number] 4 04/12 P190 BCR ABL1 Not Detecte d FINAL Nicole [employer], [facility] [address] [place] [id number] 4 04/12 P210 BCR ABL1 Not Detecte d FINAL Nicole Ya [facility], [facility] [address] [place] [id number] 4 06/04 iSTAT K+ panel Potas sium, iSTAT mmol/L 3.5 4.9 3.8 Reference range adjusted 0 with implement ation of I-Stat 8+ cartridge . FINAL Nicole Ya [facility] [place], [address] [place] [id number] 0 Phone: () - 06/04 CBC w/ auto diff WBC K/uL 3.0 8.9 6.2 FINAL Nicole Ya [facility] [place], [address] [place] [id number] 0 Phone: () - 06/04 CBC w/ auto diff HGB g/dL 11.3 15.2 12.8 FINAL Nicole Ya [facility] [place], [address] [place] [id number] 0 Phone: () - 06/04 CBC w/ auto diff PLT K/uL 113.0 364.0 177 FINAL Nicole Ya [facility] [place], [address] [place] [id number] 0 Phone: () - 06/04 CBC w/ auto diff Augustus # (ANC) K/uL 1.6 6.6 4.0 FINAL Nicole Carmonaot a [facility] [place], [address] [place] [id number] 0 Phone: () - 06/04 CBC w/ auto diff Augustus % % 43.0 74.0 63.9 FINAL Nicole Ya [facility] [place], [address] [place] [id number] 0 Phone: () - 06/04 CBC w/ auto diff IG % % 0.0 0.5 0.2 FINAL Nicole Caromnaot a [facility] - [place], [address] [place] [id number] 0 Phone: () - 06/04 CBC w/ auto diff IG # K/uL 0.0 0.03 0.01 FINAL Nicole Carmonaot a [facility] [place], [address] [place] [id number] 0 Phone: () - 06/04 CBC w/ auto diff LY % % 14.0 41.0 27.5 FINAL Nicole Carmonaot a [facility] [place], [address] [place] [id number] 0 Phone: () - 06/04 CBC w/ auto diff MO % % 6.0 15.0 7.9 FINAL Nicole Carmonaot a [facility] [place], [address] [place] [id number] 0 Phone: () - 06/04 CBC w/ auto diff EO % % 0.0 7.0 0.2 FINAL Nicole Carmonaot a [facility] [place], [address] [place] [id number] 0 Phone: () - 06/04 CBC w/ auto diff BA % % 0.0 2.0 0.3 FINAL Nicole Carmonaot a [facility] [place], [address] [place] [id number] 0 Phone: () - 06/04 CBC w/ auto diff LY # K/uL 0.4 3.6 1.7 FINAL Nicole Carmonaot a [facility] [place], [address] [place] [id number] 0 Phone: () - 06/04 CBC w/ auto diff MO # K/uL 0.2 1.3 0.5 FINAL Nicole Carmonaot a [facility] - [place], [address] [place] [id number] 0 Phone: () - 06/04 CBC w/ auto diff EO # K/uL 0.0 0.6 0.0 FINAL Nicole muñoz [facility] [place], [address] [place] [id number] 0 Phone: () - 06/04 CBC w/ auto diff BA # K/uL 0.0 0.2 0.0 FINAL Nicole muñoz [facility] [place], [address] [place] [id number] 0 Phone: () - 06/04 CBC w/ auto diff NRBC % #/100W BC 0.0 0.2 0.0 FINAL Nicole Ya Nini muñoz [facility] [place], [address] [place] [id number] 0 Phone: () - 06/04 CBC w/ auto diff RBC M/uL 3.9 5.1 4.27 FINAL Nicoel Felton Nini muñoz [facility] [place], [address] [place] [id number] 0 Phone: () - 06/04 CBC w/ auto diff HCT % 35.0 48.0 39.5 FINAL Nicole Ya Nini muñoz [facility] [place], [address] [place] [id number] 0 Phone: () - 06/04 CBC w/ auto diff MCV fL 80.0 104.0 92.5 FINAL Nicole Ya Nini muñoz [facility] [place], [address] [place] [id number] 0 Phone: () - 06/04 CBC w/ auto diff MCH pg 26.0 35.0 30.0 FINAL Nicole muñoz [facility] [place], [address] [place] [id number] 0 Phone: () - 06/04 CBC w/ auto diff MCHC g/dL 30.0 35.0 32.4 FINAL Nicole Ya Mathewdamaris [facility]i [facility] [place], [address] [place] [id number] 0 Phone: () - 06/04 CBC w/ auto diff MPV fL 9.5 13.4 9.3 Low FINAL Nicole Ya [facility] [place], [address] [place] [id number] 0 Phone: () - 06/04 CBC w/ auto diff RDW % 11.4 16.1 12.70 FINAL Nicole Ya Mathe[facility] [place], [address] [place] [id number] 0 Phone: () - 07/05 CBC w/ auto diff WBC K/uL 3.0 8.9 3.3 FINAL Nicole Ya [facility] [place], [address] [place] [id number] 0 Phone: () - 07/05 CBC w/ auto diff HGB g/dL 11.3 15.2 11.9 FINAL Nicole Ya Mathewdamaris muñoz [facility] - [place], [address] [place] [id number] 0 Phone: () - 07/05 CBC w/ auto diff PLT K/uL 113.0 364.0 163 FINAL Nicole Ya Mathewdamaris [facility] [place], [address] [place] [id number] 0 Phone: () - 07/05 CBC w/ auto diff Augustus # (ANC) K/uL 1.6 6.6 2.0 FINAL Nicole Ya Mathewdamaris muñoz [facility] - [place], [address] [place] [id number] 0 Phone: () - 07/05 CBC w/ auto diff Augustus % % 43.0 74.0 58.6 FINAL Nicole Ya [facility] [place], [address] [place] [id number] 0 Phone: () - 07/05 CBC w/ auto diff IG % % 0.0 0.5 0.3 FINAL Nicole Ya [facility] [place], [address] [place] [id number] 0 Phone: () - 07/05 CBC w/ auto diff IG # K/uL 0.0 0.03 0.01 FINAL Nicole Terrazas [facility] [place], [address] [place] [id number] 0 Phone: () - 07/05 CBC w/ auto diff LY % % 14.0 41.0 24.3 FINAL Nicole Terrazas [facility] [place], [address] [place] [id number] 0 Phone: () - 07/05 CBC w/ auto diff MO % % 6.0 15.0 16.2 High FINAL Nicole Terrazas [facility] [place], [address] [place] [id number] 0 Phone: () - 07/05 CBC w/ auto diff EO % % 0.0 7.0 0.3 FINAL Nicole muñoz [facility] - [place], [address] [place] [id number] 0 Phone: () - 07/05 CBC w/ auto diff BA % % 0.0 2.0 0.3 FINAL Nicole muñoz [facility] [place], [address] [place] [id number] 0 Phone: () - 07/05 CBC w/ auto diff LY # K/uL 0.4 3.6 0.8 FINAL Nicole muñoz [facility] [place], [address] [place] [id number] 0 Phone: () - 07/05 CBC w/ auto diff MO # K/uL 0.2 1.3 0.5 FINAL Nicole Terrazas [facility] [place], [address] [place] [id number] 0 Phone: () - 07/05 CBC w/ auto diff EO # K/uL 0.0 0.6 0.0 FINAL Nicole Terrazas [facility] [place], [address] [place] [id number] 0 Phone: () - 07/05 CBC w/ auto diff BA # K/uL 0.0 0.2 0.0 FINAL Nicole Terrazas [facility] [place], [address] [place] [id number] 0 Phone: () - 07/05 CBC w/ auto diff NRBC % #/100W BC 0.0 0.2 0.0 FINAL Nicole Terrazas [facility] [place], [address] [place] [id number] 0 Phone: () - 07/05 CBC w/ auto diff RBC M/uL 3.9 5.1 3.95 FINAL Nicole muñoz [facility] [place], [address] [place] [id number] 0 Phone: () - 07/05 CBC w/ auto diff HCT % 35.0 48.0 36.7 FINAL Nicole muñoz [facility] [place], [address] [place] [id number] 0 Phone: () - 07/05 CBC w/ auto diff MCV fL 80.0 104.0 92.9 FINAL Nicole muñoz [facility] [place], [address] [place] [id number] 0 Phone: () - 07/05 CBC w/ auto diff MCH pg 26.0 35.0 30.1 FINAL Nicole Terrazas [facility] [place], [address] [place] [id number] 0 Phone: () - 07/05 CBC w/ auto diff MCHC g/dL 30.0 35.0 32.4 FINAL Nicole Terrazas [facility] [place], [address] [place] [id number] 0 Phone: () - 07/05 CBC w/ auto diff MPV fL 9.5 13.4 8.8 Low FINAL Nicole Felton [facility] [place], [address] [facility] [address] [facility] [place] [id number] 0 Phone: () - 07/05 CBC w/ auto diff RDW % 11.4 16.1 14.10 FINAL Nicole Felton [facility] [place], [address] [facility] [address] [facility] [place] [id number] 0 Phone: () - 07/05 CMP Album in g/dL 3.2 5.2 4.4 FINAL Nicole Ya * [facility], [address] [facility] [id number] 0 Phone: () - 07/05 CMP Alkal ine phosp hatas e U/L 46.0 116.0 107 FINAL Nicole Ya * [facility], [address] [facility] [address] [place] [address] [id number] 0 Phone: () - 07/05 CMP ALT/S GPT U/L 7.0 40.0 26 FINAL Nicoledarius Ya * [facility], [address] [facility] [id number] 0 Phone: () - 07/05 CMP AST/S GOT U/L 13.0 40.0 23 FINAL Nicoledarius Ya * [facility], [address] [facility] [id number] 0 Phone: () - 07/05 CMP BUN mg/dL 9.0 23.0 15.0 FINAL Nicole Ya * [facility], [address] [facility] [id number] 0 Phone: () - 07/05 CMP Calci um mg/dL 8.7 10.4 10.4 FINAL Nicole Ya * [facility], [address] [facility] [address] [facility] [id number] 0 Phone: () - 07/05 CMP Chlor rakan mmol/L 96.0 114.0 109 FINAL Nicole Ya * [facility], [address] [facility] [id number] 0 Phone: () - 07/05 CMP CO2 [...] 96 hour stability window. FINAL Nicoledarius Najera [place] [address] [id number] 0 Phone: () - 07/05 CMP Creat inine mg/dL 0.5 1.2 1.06 FINAL Nicole Najera [address] [id number] 0 Phone: () - 07/05 CMP GFR estim ate ml/min /1.73m ^2 56.7 Low GFR is calculate d using the CKD-EPI equation. FINAL Nicoledarius Najera [place] [address] [id number] 0 Phone: () - 07/05 CMP Gluco se mg/dL 73.0 126.0 97 FINAL Nicoledarius Najera [place] [address] [id number] 0 Phone: () - 07/05 CMP Potas sium mmol/L 3.5 5.1 4.4 FINAL Nicoledarius Najera [place] [address] [id number] 0 Phone: () - 07/05 CMP Sodiu m mmol/L 136.0 145.0 143 FINAL Nicoledarius Ya * [place] [address] [id number] 0 Phone: () - 07/05 CMP Bilir ubin, total mg/dL 0.3 1.2 0.5 FINAL Nicoledarius Ya * [facility] [address] [id number] 0 Phone: () - 07/05 CMP Total prote in g/dL 5.7 8.2 6.4 FINAL Nicole Ya * [facility] [place], [address] [facility] [id number] 0 Phone: () - 12/02 PRIOR RESUL T See Report FINAL Nicole NEGRETE, [facility] [address] [place] [id number] 4 12/02 SOURC E: Periphe ral Blood FINAL Nicole NEGRETE, [facility] [address] [place] [id number] 4 12/02 BCR ABL1/ ABL1 % % 0.000 FINAL Nicole NEGRETE, [facility] [address] [place] [id number] 4 12/02 BCR ABL1/ ABL1 % (IS) % 0.000 FINAL Nicole NEGRETE [facility] [address] [place] [id number] 4 12/02 INTER PRETA TION see note [...] l informati on, please refer tohttp:// [email or web address]/faq/F [email or web address](This link is being provided forinform ational/e ducationa l purposes only.)Ass ay sensitivi ty is at least 4.5-logs below baselineB CR-ABL1 transcrip t levels but is dependent onquantit y and quality of RNA used for testing and thecellul arity of the sample.Th is test was developed and its analytica lperforma nce character istics have been determine dby [facility] [place], [place].It has not been cleared or approved by the FDA. Thisassay has been validated pursuant to the CLIAregul ations and is used for clinical purposes. Alejandro Ya, Ph.D, HCLD (ABB)Chucky head Director, Molecular Oncology FINAL Nicole Ya [facility], [facility] [address] [place] [id number] 4 12/02 P190 BCR ABL1 Not Detecte d FINAL Nicole Ya [facility], [facility] [address] [place] [id number] 4 12/02 P210 BCR ABL1 Not Detecte d FINAL Nicole Ya [facility], [facility] [address] [place] [id number] 4 12/02 CMP Album in g/dL 3.5 5.0 4.3 FINAL Nicole Ya * [facility], [address] [facility] [id number] 0 12/02 CMP Alkal ine phosp hatas e U/L 36.0 125.0 126 High FINAL Nicole Ya * [facility], [address] [facility] [id number] 0 12/02 CMP ALT/S GPT U/L 0.0 34.0 29 FINAL Nicole Ya * [facility], [address] [facility] [id number] 0 12/02 CMP AST/S GOT U/L 14.0 36.0 39 High FINAL Nicole Ya * [facility], [address] [facility] [id number] 0 12/02 CMP BUN mg/dL 7.0 17.0 14.0 FINAL Nicole Ya * [facility], [address] [facility] [address] [facility] [id number] 0 12/02 CMP Calci um mg/dL 8.4 10.2 9.1 FINAL Nicole Ya * [facility], [address] [facility] [id number] 0 12/02 CMP Chlor rakan mmol/L 96.0 107.0 108 High FINAL Nicole Ya * [facility], [address] [facility] [address] [facility] [id number] 0 12/02 CMP CO2 mmol/L 22.0 30.0 [...] window. FINAL Nicole Ya * [facility], [address] [facility] [address] [facility] [id number] 0 12/02 CMP Creat inine mg/dL 0.66 1.25 1.30 High FINAL Nicole Ya * [facility], [address] [facility] [address] [facility] [id number] 0 12/02 CMP GFR estim ate ml/min /1.73m ^2 44.3 Low GFR is calculate d using the CKD-EPI equation. FINAL Nicole Ya * [facility], [address] [facility] [address] [facility] [id number] 0 12/02 CMP Gluco se mg/dL 74.0 100.0 126 High FINAL Nicole Ya * [facility], [address] [facility] [address] [facility] [id number] 0 12/02 CMP Potas sium mmol/L 3.5 5.1 3.9 FINAL Nicole Ya * [facility], [address] [facility] [id number] 0 12/02 CMP Sodiu m mmol/L 137.0 145.0 140 FINAL Nicole Ya * [facility], [address] [facility] [id number] 0 12/02 CMP Bilir ubin, total mg/dL 0.2 1.3 0.7 FINAL Nicole Ya * [facility], [address] [facility] [id number] 0 12/02 CMP Total prote in g/dL 6.3 8.2 6.5 FINAL Nicole Ya * [facility], [address] [facility] [id number] 0 12/02 CBC w/ auto diff WBC K/uL 3.0 8.9 4.0 FINAL Nicole [facility] [place], [address] [place] [id number] 0 Phone: () - 12/02 CBC w/ auto diff HGB g/dL 11.3 15.2 12.8 FINAL Nicole [facility] [place], [address] [place] [id number] 0 Phone: () - 12/02 CBC w/ auto diff PLT K/uL 113.0 364.0 175 FINAL Nicole [facility] [place], [address] [place] [id number] 0 Phone: () - 12/02 CBC w/ auto diff Augustus # (ANC) K/uL 1.6 6.6 2.5 FINAL Nicole Ya [place] [facility] [place], [address] [place] [id number] 0 Phone: () - 12/02 CBC w/ auto diff Augustus % % 43.0 74.0 63.2 FINAL Nicole [facility] [place], [address] [place] [id number] 0 Phone: () - 12/02 CBC w/ auto diff IG % % 0.0 0.5 0.3 FINAL Nicole [facility] [place], [address] [place] [id number] 0 Phone: () - 12/02 CBC w/ auto diff IG # K/uL 0.0 0.03 0.01 FINAL Nicole [facility] [place], [address] [place] [id number] 0 Phone: () - 12/02 CBC w/ auto diff LY % % 14.0 41.0 25.7 FINAL Nicole [facility] [place], [address] [place] [id number] 0 Phone: () - 12/02 CBC w/ auto diff MO % % 6.0 15.0 10.8 FINAL Nicole [facility] [place], [address] [place] [id number] 0 Phone: () - 12/02 CBC w/ auto diff EO % % 0.0 7.0 0.0 FINAL Nicole [facility] [place], [address] [place] [id number] 0 Phone: () - 12/02 CBC w/ auto diff BA % % 0.0 2.0 0.0 FINAL Nicole [facility] [place], [address] [place] [id number] 0 Phone: () - 12/02 CBC w/ auto diff LY # K/uL 0.4 3.6 1.0 FINAL Nicole [facility] [place], [address] [place] [id number] 0 Phone: () - 12/02 CBC w/ auto diff MO # K/uL 0.2 1.3 0.4 FINAL Nicole [facility] [place], [address] [place] [id number] 0 Phone: () - 12/02 CBC w/ auto diff EO # K/uL 0.0 0.6 0.0 FINAL Nicole [facility] [place], [address] [place] [id number] 0 Phone: () - 12/02 CBC w/ auto diff BA # K/uL 0.0 0.2 0.0 FINAL Nicole [facility] [place], [address] [place] [id number] 0 Phone: () - 12/02 CBC w/ auto diff NRBC % #/100W BC 0.0 0.2 0.0 FINAL Nicole [facility] [place], [address] [place] [id number] 0 Phone: () - 12/02 CBC w/ auto diff RBC M/uL 3.9 5.1 3.98 FINAL Nicole [facility] [place], [address] [place] [id number] 0 Phone: () - 12/02 CBC w/ auto diff HCT % 35.0 48.0 38.6 FINAL Nicole [facility] [place], [address] [place] [id number] 0 Phone: () - 12/02 CBC w/ auto diff MCV fL 80.0 104.0 97.0 FINAL Nicole [facility] [place], [address] [place] [id number] 0 Phone: () - 12/02 CBC w/ auto diff MCH pg 26.0 35.0 32.2 FINAL Nicole Ya [facility] [place], [address] [place] [id number] 0 Phone: () - 12/02 CBC w/ auto diff MCHC g/dL 30.0 35.0 33.2 FINAL Nicole Ya [facility] [place], [address] [place] [id number] 0 Phone: () - 12/02 CBC w/ auto diff MPV fL 9.5 13.4 9.1 Low FINAL Nicole Ya [facility] [place], [address] [place] [id number] 0 Phone: () - 12/02 CBC w/ auto diff RDW % 11.4 16.1 12.70 FINAL Nicole Ya [facility] [place], [address] [place] [phone] 0 Phone: () - 03/30 [facility] 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 05/21 [facility] 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 06/15 CMP Album in g/dL 3.5 5.0 4.6 FINAL Nicole Ya * [facility] , [address] [facility] [id number] 06/15 CMP Alkal ine phosp hatas e U/L 36.0 125.0 92 FINAL Nicole Ya * [facility] , [address] [facility] [id number] 0 06/15 CMP ALT/S GPT U/L 0.0 34.0 44 High FINAL Nicole Ya * [facility] , [address] [facility] [id number] 0 06/15 CMP AST/S GOT U/L 14.0 36.0 43 High FINAL Nicole Ya * [facility] , [address] [facility] [id number] 06/15 CMP BUN mg/dL 7.0 17.0 17.0 FINAL Nicole Ya * [facility] , [address] [facility] [id number] 0 06/15 CMP Calci um mg/dL 8.4 10.2 9.6 FINAL Nicole Ya * [facility] , [address] [address] [facility] [id number] 0 06/15 CMP Chlor rakan mmol/L 96.0 107.0 106 FINAL Nicole Ya * [facility] , [address] [facility] [address] [facility] [id number] 0 06/15 CMP CO2 mmol/L 22.0 30.0 [...] hour stability window. FINAL Nicoledarius Ya * [facility] , [address] [facility] [id number] 0 06/15 CMP Creat inine mg/dL 0.66 1.25 1.30 High FINAL Nicole Ya * [facility] , [address] [facility] [id number] 0 06/15 CMP GFR estim ate ml/min /1.73m ^2 44.1 Low GFR is calculate d using the CKD-EPI equation. FINAL Nicoledarius Ya * [facility] , [address] [facility] [id number] 0 06/15 CMP Gluco se mg/dL 74.0 100.0 94 FINAL Nicole Ya * [facility] , [address] [facility] [id number] 06/15 CMP Potas sium mmol/L 3.5 5.1 4.1 FINAL Nicole Ya * [facility] , [address] [facility] [id number] 0 06/15 CMP Sodiu m mmol/L 137.0 145.0 140 FINAL Nicole Ya * [facility] , [address] [facility] [id number] 0 06/15 CMP Bilir ubin, total mg/dL 0.2 1.3 0.9 FINAL Nicole Ya * [facility] , [address] [facility] [id number] 0 06/15 CMP Total prote in g/dL 6.3 8.2 6.7 FINAL Nicole Ya * [facility] , [address] [facility] [id number] 0 06/15 CBC w/ auto diff WBC K/uL 3.0 8.9 4.7 FINAL Nicole Ya [place] [facility] [place] [facility] , [address] [place] [id number] 0 06/15 CBC w/ auto diff HGB g/dL 11.3 15.2 13.6 FINAL Nicole Ya [place] [facility] [place] [facility] , [address] [place] [id number] 0 06/15 CBC w/ auto diff PLT K/uL 113.0 364.0 151 FINAL Nicole Ya [place] [facility] [place] [facility] , [address] [place] [id number] 0 06/15 CBC w/ auto diff Augustus # (ANC) K/uL 1.6 6.6 2.9 FINAL Nicole Ya [place] [facility] [place] [facility] , [address] [place] [id number] 0 06/15 CBC w/ auto diff Augustus % % 43.0 74.0 61.4 FINAL Nicole Ya [place] [facility] [place] [facility] , [address] [place] [id number] 0 06/15 CBC w/ auto diff IG % % 0.0 0.5 0.2 FINAL Nicole Ya [place] [facility] [place] [facility] , [address] [place] [id number] 0 06/15 CBC w/ auto diff IG # K/uL 0.0 0.03 0.01 FINAL Nicole aY [place] [facility] [place] [facility] , [address] [place] [id number] 0 06/15 CBC w/ auto diff LY % % 14.0 41.0 28.3 FINAL Nicole Ya [place] [facility] [place] [facility] , [address] [place] [id number] 0 06/15 CBC w/ auto diff MO % % 6.0 15.0 10.1 FINAL Nicole Ya [place] [facility] [place] [facility] , [address] [place] [id number] 0 06/15 CBC w/ auto diff EO % % 0.0 7.0 0.0 FINAL Nicole Ya [place] [facility] [place] [facility] , [address] [place] [id number] 0 06/15 CBC w/ auto diff BA % % 0.0 2.0 0.0 FINAL Nicole Ya [place] [facility] [place] [facility] , [address] [place] [id number] 0 06/15 CBC w/ auto diff LY # K/uL 0.4 3.6 1.3 FINAL Nicole Ya [place] [facility] [place] [facility] , [address] [place] [id number] 0 06/15 CBC w/ auto diff MO # K/uL 0.2 1.3 0.5 FINAL Nicole Ya [place] [facility] [place] [facility] , [address] [place] [id number] 0 06/15 CBC w/ auto diff EO # K/uL 0.0 0.6 0.0 FINAL Nicole Ya [place] [facility] [place] [facility] , [address] [place] [id number] 0 06/15 CBC w/ auto diff BA # K/uL 0.0 0.2 0.0 FINAL Nicole Ya [place] [facility] [place] [facility] , [address] [place] [id number] 0 06/15 CBC w/ auto diff NRBC % #/100W BC 0.0 0.2 0.0 FINAL Nicole Ya [place] [facility] [place] [facility] , [address] [place] [id number] 0 06/15 CBC w/ auto diff RBC M/uL 3.9 5.1 4.32 FINAL Nicole Ya [place] [facility] [place] [facility] , [address] [place] [id number] 0 06/15 CBC w/ auto diff HCT % 35.0 48.0 41.6 FINAL Nicole Ya [place] [facility] [place] [facility] , [address] [place] [id number] 0 06/15 CBC w/ auto diff MCV fL 80.0 104.0 96.3 FINAL Nicole Ya [place] [facility] [place] [facility] , [address] [place] [id number] 0 06/15 CBC w/ auto diff MCH pg 26.0 35.0 31.5 FINAL Nicole Ya [place] [facility] [place] [facility] , [address] [place] [id number] 0 06/15 CBC w/ auto diff MCHC g/dL 30.0 35.0 32.7 FINAL Nicole Ya [place] [facility] [place] [facility] , [address] [place] [id number] 0 06/15 CBC w/ auto diff MPV fL 9.5 13.4 9.3 Low FINAL Nicole Ya [place] [facility] [place] [facility] , [address] [place] [id number] 0 06/15 CBC w/ auto diff RDW % 11.4 16.1 12.00 FINAL Nicole Ya [place] [facility] [place] [facility] , [address] [place] [id number] 0 06/15 PRIOR RESUL T See Report FINAL Nicole [facility]GRE[facility] [address] [place] [id number] 4 06/15 SOURC E: Periphe ral Blood FINAL Nicole NEGRETE, [facility] [address] [place] [id number] 4 06/15 BCR ABL1/ ABL1 % % 0.000 FINAL Nicole NEGRETE [facility] [address] [place] [id number] 4 06/15 BCR ABL1/ ABL1 % (IS) % 0.000 FINAL Nicole [employer], [facility] [address] [place] [id number] 4 06/15 INTER PRETA TION see note [...] l informati on, please refer tohttp:// [email or web address]/F [email or web address](This link is being provided forinform ational/e ducationa l purposes only.)Ass ay sensitivi ty is at least 4.5-logs below baselineB CR-ABL1 transcrip t levels but is dependent onquantit y and quality of RNA used for testing and thecellul arity of the sample.Th is test was developed and its analytica lperforma nce character istics have been determine dby [facility] [place], [place]It has not been cleared or approved by the FDA. Thisassay has been validated pursuant to the CLIAregul ations and is used for clinical purposes. Denver wilson M.D. FINAL [place], [facility] [address] [place] [id number] 4 06/15 P190 BCR ABL1 Not Detecte d FINAL Nicole [employer], [facility] [address] [place] [id number] 4 06/15 P210 BCR ABL1 Not Detecte d FINAL [place], [facility] [address] [place] [id number] 4 01/06 CMP Album in g/dL 3.5 5.0 3.9 FINAL Nicole Ya * [facility] , [address] [facility] [address] [id number] 0 01/06 CMP Alkal ine phosp hatas e U/L 36.0 125.0 79 FINAL Nicole Ya * [facility] , [address] [facility] [address] [id number] 0 01/06 CMP ALT/S GPT U/L 0.0 34.0 24 FINAL Nicole Ya * [facility] , [facility] [address] [id number] 0 01/06 CMP AST/S GOT U/L 14.0 36.0 33 FINAL Nicole Ya * [facility] , [address] [facility] [address] [id number] 0 01/06 CMP BUN mg/dL 7.0 17.0 14.0 FINAL Nicole Ya * [facility] , [address] [facility] [address] [id number] 0 01/06 CMP Calci um mg/dL 8.4 10.2 8.9 FINAL Nicole Ya * [facility] , [address] [facility] [address] [id number] 0 01/06 CMP Chlor rakan mmol/L 96.0 107.0 109 High FINAL Nicole Ya * [facility] , [address] [facility] [address] [id number] 0 01/06 CMP CO2 mmol/L 22.0 30.0 [...] hour stability window. FINAL Nicole Ya * [facility] , [facility] [address] [id number] 0 01/06 CMP Creat inine mg/dL 0.66 1.25 1.00 FINAL Nicole Ya * [facility] , [facility] [address] [id number] 0 01/06 CMP GFR estim ate ml/min /1.73m ^2 60.2 GFR is calculate d using the CKD-EPI equation. FINAL Nicole Ya * [facility] , [facility] [address] [id number] 0 01/06 CMP Gluco se mg/dL 74.0 100.0 88 FINAL Nicole Ya * [facility] , [facility] [address] [id number] 0 01/06 CMP Potas sium mmol/L 3.5 5.1 4.1 FINAL Nicole Ya * [facility] , [facility] [address] [id number] 0 01/06 CMP Sodiu m mmol/L 137.0 145.0 141 FINAL Nicole Ya * [facility] , [facility] [address] [id number] 0 01/06 CMP Bilir ubin, total mg/dL 0.2 1.3 0.8 FINAL Nicole Ya * [facility] , [facility] [address] [id number] 0 01/06 CMP Total prote in g/dL 6.3 8.2 6.2 Low FINAL Nicole Ya * [place] [facility] [place] [facility] , [address] [place] [id number] 0 01/06 CBC w/ auto diff WBC K/uL 3.0 8.9 4.5 FINAL Nicole Ya [place] [facility] [place] [facility] , [address] [place] [id number] 0 01/06 CBC w/ auto diff HGB g/dL 11.3 15.2 12.8 FINAL Nicole Ya [place] [facility] [place] [facility] , [address] [place] [id number] 0 01/06 CBC w/ auto diff PLT K/uL 113.0 364.0 153 FINAL Nicole Felton [place] [facility] [place] [facility] , [address] [place] [id number] 0 01/06 CBC w/ auto diff Augustus # (ANC) K/uL 1.6 6.6 2.8 FINAL Nicole Ya [place] [facility] [place] [facility] , [address] [place] [id number] 0 01/06 CBC w/ auto diff Augustus % % 43.0 74.0 61.5 FINAL Nicole Ya [place] [facility] [place] [facility] , [address] [place] [id number] 0 01/06 CBC w/ auto diff IG % % 0.0 0.5 0.4 FINAL Nicole Ya [place] [facility] [place] [facility] , [address] [place] [id number] 0 01/06 CBC w/ auto diff IG # K/uL 0.0 0.03 0.02 FINAL Nicole Ya [place] [facility] [place] [facility] , [address] [place] [id number] 0 01/06 CBC w/ auto diff LY % % 14.0 41.0 25.4 FINAL Nicole Ya [place] [facility] , [address] [place] [id number] 0 01/06 CBC w/ auto diff MO % % 6.0 15.0 12.7 FINAL Nicole Ya [place] [facility] , [address] [place] [id number] 0 01/06 CBC w/ auto diff EO % % 0.0 7.0 0.0 FINAL Nicole Ya [place] [facility] , [address] [place] [id number] 0 01/06 CBC w/ auto diff BA % % 0.0 2.0 0.0 FINAL Nicole Ya [place] [facility] , [address] [place] [id number] 0 01/06 CBC w/ auto diff LY # K/uL 0.4 3.6 1.1 FINAL Nicole Ya [place] [facility] [place] [facility] , [address] [place] [id number] 0 01/06 CBC w/ auto diff MO # K/uL 0.2 1.3 0.6 FINAL Nicole Ya [place] [facility] [place] [facility] , [address] [place] [id number] 0 01/06 CBC w/ auto diff EO # K/uL 0.0 0.6 0.0 FINAL Nicole Ya [place] [facility] [place] [facility] , [address] [place] [id number] 0 01/06 CBC w/ auto diff BA # K/uL 0.0 0.2 0.0 FINAL Nicole Ya [place] [facility] [place] [facility] , [address] [place] [id number] 0 01/06 CBC w/ auto diff NRBC % #/100W BC 0.0 0.2 0.0 FINAL Nicole Ya [place] [facility] , [address] [place] [id number] 0 01/06 CBC w/ auto diff RBC M/uL 3.9 5.1 3.69 Low FINAL Nicoledarius Ya [place] [facility] [place] [facility] , [address] [place] [id number] 0 01/06 CBC w/ auto diff HCT % 35.0 48.0 37.6 FINAL Nicoledarius Ya [facility] [place] [facility] , [address] [place] [id number] 0 01/06 CBC w/ auto diff MCV fL 80.0 104.0 101.9 FINAL Nicole Ya [place] [facility] , [address] [place] [id number] 0 01/06 CBC w/ auto diff MCH pg 26.0 35.0 34.7 FINAL Nicole Ya [place] [facility] , [address] [place] [id number] 0 01/06 CBC w/ auto diff MCHC g/dL 30.0 35.0 34.0 FINAL Nicole Ya [place] [facility] [place] [facility] , [address] [place] [id number] 0 01/06 CBC w/ auto diff MPV fL 9.5 13.4 9.6 FINAL Nicole Ya [place] [facility] [place] [facility] , [address] [place] [id number] 0 01/06 CBC w/ auto diff RDW % 11.4 16.1 13.00 FINAL Nicole Ya [facility] [place] [facility] , [address] [place] [id number] 0 01/06 PRIOR RESUL T See Report FINAL Nicole Ya [facility] [facility], [facility] [address] [place] [id number] 4 01/06 SOURC E: Periphe ral Blood FINAL Nicole NEGRETE, [facility] [address] [place] [id number] 4 01/06 BCR ABL1/ ABL1 % % 0.000 FINAL Nicole NEGRETE [facility] [address] [place] [id number] 4 01/06 BCR ABL1/ ABL1 % (IS) % 0.000 FINAL Nicole [place], [facility] [address] [place] [id number] 4 01/06 INTER PRETA TION see note [...] l informati on, please refer tohttp:// [email or web address]/faq/F [email or web address](This link is being provided forinform ational/e ducationa l purposes only.)Ass ay sensitivi ty is at least 4.5-logs below baselineB CR-ABL1 transcrip t levels but is dependent onquantit y and quality of RNA used for testing and thecellul arity of the sample.Th is test was developed and its analytica lperforma nce character istics have been determine dby [facility] [place]It has not been cleared or approved by the FDA. Thisassay has been validated pursuant to the CLIAregul ations and is used for clinical purposes. Reviewed by Aiden Hui M.D., Ph.D.[facility] [place], [facility] [address] [place] [id number] 4 01/06 P190 BCR ABL1 Not Detecte d [facility] [place], [employer] [facility] [address] [place] [id number] 4 01/06 P210 BCR ABL1 Not Detecte d [facility] [place], [facility] [address] [place] [id number] 4 Medications Date Name Route Dose Frequency Instructions Start Date End Date Status Fill Status Indication 03/13 Atorvas tatin Oral orally 1.0 tablet daily active 09/11 Desvenl afaxine Oral 24 hr Tab oral 1.0 tablet extend ed releas e 24 hr daily active 01/06 cephale abyb 500 MG Oral Capsule orally 1.0 capsul [...] Active Vital Signs Date Type Value 04/02/2019 Intravascular Systolic 110 04/02/2019 Intravascular Diastolic 68 04/02/2019 Body Temperature 98.10 04/02/2019 Heart Beat 81.00 04/02/2019 Respiratory Rate 16.00 04/02/2019 BSA 1.84 04/02/2019 Pain Scale 0.00 04/02/2019 Weight 161.40 04/02/2019 Height 66.50 04/02/2019 BMI 25.66 04/02/2019 Oxygen Saturation 98.00 06/01/2019 BMI 25.60 06/01/2019 Height 66.50 06/01/2019 Weight 161.00 06/01/2019 Oxygen Saturation 98.00 06/01/2019 BSA 1.83 06/01/2019 Heart Beat 75.00 06/01/2019 Body Temperature 97.10 06/01/2019 Intravascular Systolic 120 06/01/2019 Intravascular Diastolic 82 06/01/2019 Pain Scale 0.00 06/01/2019 Respiratory Rate 18.00 02/10/2020 BSA 1.89 02/10/2020 BMI 27.47 02/10/2020 [...] Temperature 97.90 03/06/2021 Pain Scale 0.00 08/23/2021 Oxygen Saturation 97.00 08/23/2021 Heart Beat 78.00 08/23/2021 BSA 1.94 08/23/2021 Height 66.50 08/23/2021 Intravascular Systolic 112 08/23/2021 Intravascular Diastolic 72 08/23/2021 Pain Scale 0.00 08/23/2021 Respiratory Rate 16.00 08/23/2021 Body Temperature 96.80 08/23/2021 BMI 29.25 08/23/2021 Weight 184.00 03/13/2022 Intravascular Systolic 124 03/13/2022 Intravascular Diastolic 70 03/13/2022 Respiratory Rate 16.00 03/13/2022 Heart Beat 81.00 03/13/2022 Body Temperature 97.80 03/13/2022 Oxygen Saturation 99.00 03/13/2022 BSA 1.90 03/13/2022 BMI 27.92 03/13/2022 Weight 175.60 03/13/2022 Height 66.50 03/13/2022 Pain Scale 2.00 09/11/2022 Oxygen Saturation 98.00 09/11/2022 Body Temperature 98.20 09/11/2022 Heart Beat 71.00 09/11/2022 Intravascular Systolic 114 09/11/2022 Intravascular Diastolic 76 09/11/2022 BSA 1.91 09/11/2022 Respiratory Rate 16.00 09/11/2022 Pain Scale 0.00 09/11/2022 Weight 176.20 09/11/2022 BMI 28.01 09/11/2022 Height 66.50 11/06/2022 BSA 1.92 11/06/2022 BMI 28.39 11/06/2022 Height 66.50 11/06/2022 Weight 178.60 11/06/2022 Oxygen Saturation 98.00 11/06/2022 Intravascular Systolic 114 11/06/2022 Intravascular Diastolic 78 11/06/2022 Respiratory Rate 16.00 11/06/2022 Heart Beat 66.00 11/06/2022 Body Temperature 97.80 11/06/2022 Pain Scale 0.00 11/09/2022 Pain Scale 0.00 11/09/2022 Height 66.50 11/16/2022 BSA 1.92 11/16/2022 BMI 28.47 11/16/2022 Height 66.50 11/16/2022 Weight 179.10 11/16/2022 Oxygen Saturation 97.00 11/16/2022 Intravascular Systolic 121 11/16/2022 Intravascular Diastolic 82 11/16/2022 Respiratory Rate 16.00 11/16/2022 Heart Beat 82.00 11/16/2022 Body Temperature 96.20 11/16/2022 Pain Scale 0.00 11/21/2022 Oxygen Saturation 99.00 11/21/2022 Body Temperature 97.50 11/21/2022 Heart Beat [...] Systolic 144 11/27/2022 Intravascular Diastolic 98 11/28/2022 Oxygen Saturation 97.00 11/28/2022 Body Temperature 98.90 11/28/2022 Heart Beat 57.00 11/28/2022 Respiratory Rate 16.00 11/28/2022 BSA 1.89 11/28/2022 Pain Scale 0.00 11/28/2022 Weight 173.00 11/28/2022 Height 66.50 11/28/2022 BMI 27.50 11/28/2022 Intravascular Systolic 134 11/28/2022 Intravascular Diastolic 76 11/29/2022 Oxygen Saturation 98.00 11/29/2022 Body Temperature 97.80 11/29/2022 Heart Beat 101.00 11/29/2022 Height 66.50 11/29/2022 Intravascular Systolic 120 11/29/2022 Intravascular Diastolic 71 11/29/2022 Pain Scale 0.00 11/29/2022 Respiratory Rate 16.00 12/03/2022 Body Temperature 98.30 12/03/2022 Pain Scale 0.00 12/03/2022 Height 66.50 12/03/2022 Oxygen Saturation 100.00 12/03/2022 Intravascular Systolic 128 12/03/2022 Intravascular Diastolic 86 12/03/2022 Heart Beat 69.00 12/07/2022 Oxygen Saturation 98.00 12/07/2022 Body Temperature [...] Rate 16.00 12/14/2022 Oxygen Saturation 97.00 12/27/2022 Body Temperature 97.80 12/27/2022 Heart Beat 84.00 12/27/2022 Respiratory Rate 16.00 12/27/2022 Oxygen Saturation 97.00 12/27/2022 Intravascular Systolic 104 12/27/2022 Intravascular Diastolic 64 12/27/2022 Pain Scale 0.00 12/27/2022 Weight 175.40 12/27/2022 Height 66.50 12/27/2022 BMI 27.89 12/27/2022 BSA 1.90 12/28/2022 BSA 1.90 12/28/2022 BMI 27.84 12/28/2022 Height 66.50 12/28/2022 Weight 175.10 12/28/2022 Body Temperature 97.70 12/28/2022 Intravascular Systolic 121 12/28/2022 Intravascular Diastolic 72 12/28/2022 Oxygen Saturation 97.00 12/28/2022 Respiratory Rate 16.00 12/28/2022 Heart Beat 94.00 12/28/2022 Pain Scale 0.00 01/01/2023 BMI 28.12 01/01/2023 BSA 1.91 01/01/2023 Height 66.50 01/01/2023 Weight 176.90 01/01/2023 Pain Scale 0.00 01/01/2023 Intravascular Systolic 113 01/01/2023 Intravascular Diastolic 64 01/01/2023 Oxygen Saturation 98.00 01/01/2023 Respiratory Rate 16.00 01/01/2023 Heart Beat 83.00 01/01/2023 Body Temperature 98.60 01/03/2023 Intravascular Systolic 109 01/03/2023 Intravascular Diastolic 58 01/03/2023 Pain Scale 0.00 01/03/2023 Body Temperature 98.50 01/03/2023 Heart Beat 78.00 01/03/2023 Oxygen Saturation 98.00 01/03/2023 Height 66.50 01/04/2023 Height 66.50 01/04/2023 Pain Scale 0.00 01/04/2023 Oxygen Saturation 98.00 01/04/2023 Heart Beat 71.00 01/04/2023 Body Temperature 98.30 01/04/2023 Intravascular Systolic 113 01/04/2023 Intravascular Diastolic 71 01/14/2023 Height 66.50 01/14/2023 Pain Scale 0.00 01/14/2023 Oxygen Saturation 99.00 01/14/2023 Body Temperature 97.90 01/14/2023 Intravascular Systolic 108 01/14/2023 Intravascular Diastolic 57 01/14/2023 Respiratory Rate 20.00 01/14/2023 Heart Beat 70.00 01/18/2023 Body Temperature 96.70 01/18/2023 Heart Beat 74.00 01/18/2023 Respiratory Rate 17.00 01/18/2023 Oxygen Saturation 98.00 01/18/2023 BSA 1.93 01/18/2023 Pain Scale 0.00 01/18/2023 Weight 180.60 01/18/2023 Height 66.50 01/18/2023 BMI 28.71 01/18/2023 Intravascular Systolic 112 01/18/2023 Intravascular Diastolic 78 01/23/2023 BMI 27.74 01/23/2023 BSA 1.90 01/23/2023 Height 66.50 01/23/2023 Weight 174.50 01/23/2023 Pain Scale 0.00 01/23/2023 Intravascular Systolic 104 01/23/2023 Intravascular Diastolic 66 01/23/2023 Oxygen Saturation 97.00 01/23/2023 Respiratory Rate 16.00 01/23/2023 Heart Beat 77.00 01/23/2023 Body Temperature 98.70 01/24/2023 Heart Beat 82.00 01/24/2023 Respiratory Rate 16.00 01/24/2023 Oxygen Saturation 99.00 01/24/2023 Height 66.50 01/24/2023 Body Temperature 97.70 01/24/2023 Pain Scale 0.00 01/24/2023 Intravascular Systolic 112 01/24/2023 Intravascular Diastolic 67 01/29/2023 BMI 27.06 01/29/2023 BSA 1.88 01/29/2023 Weight 170.20 01/29/2023 Pain Scale 0.00 01/29/2023 Intravascular Systolic 123 01/29/2023 Intravascular Diastolic 78 01/29/2023 Oxygen Saturation 96.00 01/29/2023 Respiratory Rate 16.00 01/29/2023 Heart Beat 89.00 01/29/2023 Body Temperature 98.40 01/29/2023 Height 66.50 01/30/2023 Height 66.50 01/30/2023 Pain Scale 0.00 01/30/2023 Intravascular Systolic 115 01/30/2023 Intravascular Diastolic 66 01/30/2023 Oxygen Saturation 98.00 01/30/2023 Respiratory Rate 16.00 01/30/2023 Heart Beat 78.00 01/30/2023 Body Temperature 97.90 01/31/2023 Body Temperature 98.50 01/31/2023 Heart Beat 82.00 01/31/2023 Respiratory Rate 16.00 01/31/2023 Oxygen Saturation 98.00 01/31/2023 Intravascular Systolic 113 01/31/2023 Intravascular Diastolic 71 01/31/2023 Pain Scale 0.00 01/31/2023 Height 66.50 02/05/2023 Heart Beat 112.00 02/05/2023 BMI 27.73 02/05/2023 Height 66.50 02/05/2023 Weight 174.40 02/05/2023 Pain Scale 3.00 02/05/2023 Intravascular Systolic 110 02/05/2023 Intravascular Diastolic 76 02/05/2023 Oxygen Saturation 96.00 02/05/2023 Body Temperature 99.10 02/05/2023 BSA 1.90 02/05/2023 Respiratory Rate 16.00 02/07/2023 Height 66.50 02/07/2023 Pain Scale 0.00 02/07/2023 Intravascular Systolic 94 02/07/2023 Intravascular Diastolic 64 02/07/2023 Oxygen Saturation 93.00 02/07/2023 Respiratory Rate 16.00 02/07/2023 Heart Beat 82.00 02/07/2023 Body Temperature 97.00 02/08/2023 Intravascular Systolic 104 02/08/2023 Intravascular Diastolic 68 02/08/2023 Pain Scale 0.00 02/08/2023 Weight 179.60 02/08/2023 Height 66.50 02/08/2023 BMI 28.55 02/08/2023 BSA 1.92 02/08/2023 Body Temperature 97.70 02/08/2023 Heart Beat 77.00 02/08/2023 Respiratory Rate 16.00 02/08/2023 Oxygen Saturation 99.00 02/12/2023 BMI 28.08 02/12/2023 Height 66.50 02/12/2023 Weight 176.60 02/12/2023 Pain Scale 0.00 02/12/2023 BSA 1.91 02/12/2023 Oxygen Saturation 98.00 02/12/2023 Respiratory Rate [...] Heart Beat 84.00 02/19/2023 Body Temperature 97.30 03/01/2023 BMI 29.00 03/01/2023 Height 66.50 03/01/2023 Weight 182.40 03/01/2023 Pain Scale 0.00 03/01/2023 BSA 1.93 03/01/2023 Oxygen Saturation 98.00 03/01/2023 Respiratory Rate 14.00 03/01/2023 Heart Beat 72.00 03/01/2023 Body Temperature 97.10 03/01/2023 Intravascular Systolic 108 03/01/2023 Intravascular Diastolic 67 03/22/2023 BSA 1.91 03/22/2023 Body Temperature 97.90 03/22/2023 Heart Beat 78.00 03/22/2023 Respiratory Rate 16.00 03/22/2023 Oxygen Saturation 99.00 03/22/2023 Intravascular Systolic 111 03/22/2023 Intravascular Diastolic 69 03/22/2023 Pain Scale 0.00 03/22/2023 Weight 176.70 03/22/2023 BMI 28.09 03/22/2023 Height 66.50 04/12/2023 BSA 1.94 04/12/2023 Body Temperature 97.20 04/12/2023 Heart Beat 72.00 04/12/2023 Respiratory Rate 14.00 04/12/2023 Oxygen Saturation 98.00 04/12/2023 Intravascular Systolic 144 04/12/2023 Intravascular Diastolic 72 04/12/2023 Pain Scale 0.00 04/12/2023 Weight 183.80 04/12/2023 BMI 29.22 04/12/2023 Height 66.50 05/03/2023 Pain Scale 0.00 05/03/2023 BSA 1.93 05/03/2023 BMI 28.87 05/03/2023 Height 66.50 05/03/2023 Body Temperature 97.70 05/03/2023 Intravascular Systolic 132 05/03/2023 Intravascular Diastolic [...]
--- OUTSIDE RECORDS SUMMARY | 2025-02-08 13:06 | XMS_ITS ---
Author Name Interface, [id number] lity Address [address] [facility] [address] [address] [facility] On[facility] Address [address] [facility] [address] [address] Allergies and Adverse Reactions Medication/Group Name Reaction [...] 03/22/2023 APPOINTMENT TREATMENT 2 HR 03/13/2023 APPOINTMENT [facility] FOLLOW UP 20 MIN 03/13/2023 APPOINTMENT LAB [...] in g/dL 3.2 5.2 4.5 FINAL [place] [address] [phone] 0 Phone: () - 03/13 CMP Alkal ine phosp hatas e U/L 46.0 116.0 103 FINAL [place] [address] [phone] 0 Phone: () - 03/13 CMP ALT/S GPT U/L 7.0 40.0 19 FINAL Ru[place] [address] [phone] 0 Phone: () - 03/13 CMP AST/S GOT U/L 13.0 40.0 23 FINAL [place] [address] [id number] 0 Phone: () - 03/13 CMP BUN mg/dL 9.0 23.0 [address] [phone] 0 Phone: () - 03/13 CMP Calci um mg/dL 8.7 10.4 10.5 High FINAL [place] [address] [phone] 0 Phone: () - 03/13 CMP Chlor rakan mmol/L 96.0 114.0 107 FINAL [place] [address] [phone] 0 Phone: () - 03/13 CMP CO2 [...] the 96 hour stability window. FINAL [place] [address] [phone] 0 Phone: () - 03/13 CMP Creat inine mg/dL 0.5 1.2 1.25 High FINAL Ruiz Terrazas [place] [address] [phone] 0 Phone: () - 03/13 CMP GFR estim ate ml/min /1.73m ^2 46.9 Low GFR is calculate d using the CKD-EPI equation. FINAL [place] [address] [phone] 0 Phone: () - 03/13 CMP Gluco se mg/dL 73.0 126.0 111 FINAL [place] [address] [phone] 0 Phone: () - 03/13 CMP Potas sium mmol/L 3.5 5.1 4.2 FINAL Ruiz Raya [place] [address] [phone] 0 Phone: () - 03/13 CMP Sodiu m mmol/L 136.0 145.0 144 FINAL [place] [address] [phone] 0 Phone: () - 03/13 CMP Bilir ubin, total mg/dL 0.3 1.2 0.8 FINAL [place] [address] [id number] 0 Phone: () - 03/13 CMP Total prote in g/dL 5.7 8.2 6.7 FINAL Ruiz Raya [place] [address] [phone] 0 Phone: () - 03/13 CBC w/ auto diff HGB g/dL 11.3 15.2 14.6 FINAL Ruiz Raya [facility], [address] [place] [address] [address] [facility] [phone] 0 Phone: () - 03/13 CBC w/ auto diff Augustus # (ANC) K/uL 1.6 6.6 5.3 FINAL Ruiz Terrazas [facility], [address] [place] [address] 210 [facility] [phone] 0 Phone: () - 03/13 CBC w/ auto diff IG % % 0.0 0.5 0.3 [facility]AL [facility] [address] [place] [address] 210 [facility] [phone] 0 Phone: () - 03/13 CBC w/ auto diff IG # K/uL 0.0 0.03 0.02 FINAL [facility] [place] [address] [place] [address] 210 [facility] [phone] 0 Phone: () - 03/13 CBC w/ auto diff MO % % 6.0 15.0 9.4 FINAL [facility] [place] [address] [place] [address] 210 [facility] [phone] 0 Phone: () - 03/13 CBC w/ auto diff WBC K/uL 3.0 8.9 7.7 FINAL [facility] [address] [place] [address] 210 [facility] [phone] 0 Phone: () - 03/13 CBC w/ auto diff PLT K/uL 113.0 364.0 160 [facility]AL [facility] [place] [address] [place] [address] 210 [facility] [phone] 0 Phone: () - 03/13 CBC w/ auto diff Augustus % % 43.0 74.0 69.5 FINAL [facility] [address] [place] [address] 210 [facility] [phone] 0 Phone: () - 03/13 CBC w/ auto diff LY % % 14.0 41.0 19.5 FINAL [facility] [address] [place] [address] 210 [facility] [phone] 0 Phone: () - 03/13 CBC w/ auto diff EO % % 0.0 7.0 0.9 FINAL Ruiz muñoz [facility], [address] [place] [address] 210 [place] [phone] 0 Phone: () - 03/13 CBC w/ auto diff BA % % 0.0 2.0 0.4 FINAL Ruiz muñoz [facility], [address] [place] [address] 210 [place] [id number] 0 Phone: () - 03/13 CBC w/ auto diff LY # K/uL 0.4 3.6 1.5 FINAL Ruiz muñoz [facility], [address] [place] [address] 210 [place] [phone] 0 Phone: () - 03/13 CBC w/ auto diff MO # K/uL 0.2 1.3 0.7 FINAL Ruiz muñoz [facility], [address] [place] [address] 210 [place] [phone] 0 Phone: () - 03/13 CBC w/ auto diff EO # K/uL 0.0 0.6 0.1 FINAL Ruiz muñoz [facility], [address] [place] [address] 210 [place] [phone] 0 Phone: () - 03/13 CBC w/ auto diff BA # K/uL 0.0 0.2 0.0 FINAL Ruiz muñoz [facility], [address] [place] [address] 210 [place] [phone] 0 Phone: () - 03/13 CBC w/ auto diff NRBC % #/100W BC 0.0 0.2 0.0 FINAL Ruiz muñoz [facility], [address] [place] [address] 210 [place] [phone] 0 Phone: () - 03/13 CBC w/ auto diff RBC M/uL 3.9 5.1 4.58 FINAL Ruiz muñoz [facility], [address] [place] [address] 210 [place] [phone] 0 Phone: () - 03/13 CBC w/ auto diff HCT % 35.0 48.0 45.2 FINAL Ruiz Terrazas [facility], [address] [place] [address] 210 [place] [phone] 0 Phone: () - 03/13 CBC w/ auto diff MCV fL 80.0 104.0 98.7 FINAL [facility], [address] [place] [address] 210 [facility] [phone] 0 Phone: () - 03/13 CBC w/ auto diff MCH pg 26.0 35.0 31.9 FINAL [facility], [address] [place] [address] 210 [place] [phone] 0 Phone: () - 03/13 CBC w/ auto diff MCHC g/dL 30.0 35.0 32.3 FINAL Ruiz Raya [facility], [address] [place] [address] 210 [place] [phone] 0 Phone: () - 03/13 CBC w/ auto diff MPV fL 9.5 13.4 9.7 FINAL [facility] [address] [place] [address] 210 [facility] [phone] 0 Phone: () - 03/13 CBC w/ auto diff RDW % 11.4 16.1 12.90 FINAL [facility], [address] [place] [address] 210 [facility] [phone] 0 Phone: () - 03/13 BCR/A BL1, [...] all possible fusionfor ms. Please contact the [facility] at [phone] with questions or if additiona ltesting is required. See the [facility] iesInterp retive Handbook for method details.T [...] ce character isticsdet ermined by [facility] in a manner consisten t with CLIArequi rements. This test has not been cleared or approved bythe U.S. Food and Drug Administr ation.Jane t Performed by:[facility] - [address] [address]Lmr Director: Michael Reid M.D. Ph.D.; CLIA# [id number] 2 FINAL Ruiz Raya 09/11 PRIOR RESUL T Not Given FINAL Kennedy Unglaub [facility], [facility] [address] [place] [id number] 4 09/11 SOURC E: Periphe ral Blood FINAL Kennedy Rothlaub [facility], [facility] [address] [place] [id number] 4 09/11 BCR ABL1/ ABL1 % % 0.000 FINAL Kennedy Rothlaub [facility], [facility] [address] [place] [id number] 4 09/11 BCR ABL1/ ABL1 % (IS) % 0.000 FINAL Kennedy Bernalub [facility], [facility] [address] [place] [id number] 4 09/11 INTER PRETA TION see note [...] l informati on, please refer tohttp:// education .Newsblur/faq/F AQ72(This link is being provided forinform ational/e ducationa l purposes only.)Ass ay sensitivi ty is at least 4.5-logs below baselineB CR-ABL1 transcrip t levels but is dependent onquantit y and quality of RNA used for testing and thecellul arity of the sample.Th is test was developed and its analytica lperforma nce character istics have been determine dby [facility] [place].It has not been cleared or approved by the FDA. Thisassay has been validated pursuant to the CLIAregul ations and is used for clinical purposes. Meera drake, Ph.D., [facility] nical Director, Molecular Oncology FINAL [place] [facility], [facility] [address] [place] [id number] 4 09/11 P190 BCR ABL1 Not Detecte d FINAL [place] [facility], [facility] [address] [place] [id number] 4 09/11 P210 BCR ABL1 Not Detecte d FINAL [place] [facility], [facility] [address] [place] [id number] 4 09/11 CBC w/ auto diff WBC K/uL 3.0 8.9 5.7 FINAL [facility] [address] 210 [facility] [phone] 0 Phone: () - 09/11 CBC w/ auto diff HGB g/dL 11.3 15.2 13.8 FINAL [facility] [address] 210 [place] [phone] 0 Phone: () - 09/11 CBC w/ auto diff PLT K/uL 113.0 364.0 167 FINAL [facility] [address] 210 [place] [phone] 0 Phone: () - 09/11 CBC w/ auto diff Augustus # (ANC) K/uL 1.6 6.6 3.7 FINAL Kennedy Carmonaot a [facility] [place], [address] [place] [address] 210 [place] [phone] 0 Phone: () - 09/11 CBC w/ auto diff Augustus % % 43.0 74.0 64.2 FINAL Kennedy Carmonaot a [facility] [place], [address] [place] [address] 210 [place] [phone] 0 Phone: () - 09/11 CBC w/ auto diff IG % % 0.0 0.5 0.2 FINAL Kennedy Carmonaot a [facility] [place], [address] [place] [address] 210 [place] [phone] 0 Phone: () - 09/11 CBC w/ auto diff IG # K/uL 0.0 0.03 0.01 FINAL Kennedy Carmonaot a [facility] [place], [address] [place] [address] 210 [place] [phone] 0 Phone: () - 09/11 CBC w/ auto diff LY % % 14.0 41.0 24.0 FINAL Kennedy Carmonaot a [facility] [place], [address] [place] [address] 210 [place] [phone] 0 Phone: () - 09/11 CBC w/ auto diff MO % % 6.0 15.0 9.9 FINAL Kennedy Carmonaot a [facility] [place], [address] [place] [address] 210 [place] [phone] 0 Phone: () - 09/11 CBC w/ auto diff EO % % 0.0 7.0 1.2 FINAL Kennedy Carmonaot a [facility] [place], [address] [place] [address] 210 [place] [phone] 0 Phone: () - 09/11 CBC w/ auto diff BA % % 0.0 2.0 0.5 FINAL Kennedy Carmonaot a [facility] [place], [address] [place] [address] 210 [place] [phone] 0 Phone: () - 09/11 CBC w/ auto diff LY # K/uL 0.4 3.6 1.4 FINAL Kennedy Carmonaot a [facility] [place], [address] [place] [address] 210 [place] [phone] 0 Phone: () - 09/11 CBC w/ auto diff MO # K/uL 0.2 1.3 0.6 FINAL Kennedy Doloresub Mathewot a [facility], [address] [place] [address] 210 [place] [phone] 0 Phone: () - 09/11 CBC w/ auto diff EO # K/uL 0.0 0.6 0.1 FINAL Kennedy Doloresub Mathewot a [facility], [address] [place] [address] 210 [place] [phone] 0 Phone: () - 09/11 CBC w/ auto diff BA # K/uL 0.0 0.2 0.0 FINAL Kennedy Doloresub Mathewot a [facility], [address] [place] [address] 210 [place] [phone] 0 Phone: () - 09/11 CBC w/ auto diff NRBC % #/100W BC 0.0 0.2 0.0 FINAL Kennedy Doloresub Mathewot a [facility], [address] [place] [address] 210 [place] [phone] 0 Phone: () - 09/11 CBC w/ auto diff RBC M/uL 3.9 5.1 4.38 FINAL Kennedy Carmonaot a [facility], [address] [place] [address] 210 [place] [phone] 0 Phone: () - 09/11 CBC w/ auto diff HCT % 35.0 48.0 42.8 FINAL Kennedy Carmonaot a [facility], [address] [place] [address] 210 [place] [phone] 0 Phone: () - 09/11 CBC w/ auto diff MCV fL 80.0 104.0 97.7 FINAL Kennedy Jenna Carmonaot a [facility], [address] [place] [address] 210 [place] [phone] 0 Phone: () - 09/11 CBC w/ auto diff MCH pg 26.0 35.0 31.5 FINAL Kennedy Doloresub [place] a [facility], [address] [place] [address] 210 [place] [phone] 0 Phone: () - 09/11 CBC w/ auto diff MCHC g/dL 30.0 35.0 32.2 FINAL Kennedy Doloresub [place] a [facility], [address] [facility] 210 [facility] [phone] 0 Phone: () - 09/11 CBC w/ auto diff MPV fL 9.5 13.4 9.3 Low FINAL Kennedy Carmona toni [facility], [address] [facility] 210 [place] [phone] 0 Phone: () - 09/11 CBC w/ auto diff RDW % 11.4 16.1 12.70 FINAL Kennedy Carmona toni [facility], [address] [place] [address] 210 [place] [phone] 0 Phone: () - 09/11 CMP Album in g/dL 3.2 5.2 4.5 FINAL [place] [address] [phone] 0 Phone: () - 09/11 CMP Alkal ine phosp hatas e U/L 46.0 116.0 111 FINAL Kennedy [place] [address] [phone] 0 Phone: () - 09/11 CMP ALT/S GPT U/L 7.0 40.0 22 FINAL Kennedy [place] [address] [phone] 0 Phone: () - 09/11 CMP AST/S GOT U/L 13.0 40.0 20 FINAL Kennedy [place] [address] [phone] 0 Phone: () - 09/11 CMP BUN mg/dL 9.0 23.0 10.0 FINAL Kennedy [place] [address] [phone] 0 Phone: () - 09/11 CMP Calci um mg/dL 8.7 10.4 9.7 FINAL [place] [address] [phone] 0 Phone: () - 09/11 CMP Chlor rakan mmol/L 96.0 114.0 109 FINAL Kennedy Carmona toni [facility], [address] [phone] 0 Phone: () - 09/11 CMP CO2 [...] hour stability window. FINAL Kennedy Carmona toni [facility], [address] [phone] 0 Phone: () - 09/11 CMP Creat inine mg/dL 0.5 1.2 1.05 FINAL Kennedy Carmona toni [place] [address] [phone] 0 Phone: () - 09/11 CMP GFR estim ate ml/min /1.73m ^2 57.6 Low GFR is calculate d using the CKD-EPI equation. FINAL Kennedy Carmona toni [place] [address] [phone] 0 Phone: () - 09/11 CMP Gluco se mg/dL 73.0 126.0 104 FINAL Kennedy Carmona toni [place] [address] [phone] 0 Phone: () - 09/11 CMP Potas sium mmol/L 3.5 5.1 4.3 FINAL Kennedy Carmona toni [facility] [address] [phone] 0 Phone: () - 09/11 CMP Sodiu m mmol/L 136.0 145.0 145 FINAL Kennedy Carmona toni [facility] [address] [phone] 0 Phone: () - 09/11 CMP Bilir ubin, total mg/dL 0.3 1.2 0.9 FINAL Kennedy Carmonaot a [facility], [address] [place] [phone] 0 Phone: () - 09/11 CMP Total prote in g/dL 5.7 8.2 6.9 FINAL Kennedy Carmonaot a [facility] [place], [address] [place] [phone] 0 Phone: () - 11/16 CBC w/ auto diff WBC K/uL 3.0 8.9 7.6 FINAL Nicole Terrazas a [facility] [place], [address] [facility] [address] [address] [place] [phone] 0 Phone: () - 11/16 CBC w/ auto diff HGB g/dL 11.3 15.2 13.4 FINAL Nicole Terrazas a [facility] [place], [address] [facility] [address] [place] [phone] 0 Phone: () - 11/16 CBC w/ auto diff PLT K/uL 113.0 364.0 162 FINAL Nicole Terrazas a [facility] [place], [address] [place] [phone] 0 Phone: () - 11/16 CBC w/ auto diff Augustus # (ANC) K/uL 1.6 6.6 6.7 High FINAL Nicole Terrazas a [facility] [place], [address] [place] [phone] 0 Phone: () - 11/16 CBC w/ auto diff Augustus % % 43.0 74.0 88.7 High FINAL Nicole Terrazas a [facility] [place], [address] [place] [phone] 0 Phone: () - 11/16 CBC w/ auto diff IG % % 0.0 0.5 0.7 High FINAL Nicole Carmonaot a [facility] [place], [address] [place] [phone] 0 Phone: () - 11/16 CBC w/ auto diff IG # K/uL 0.0 0.03 0.05 High FINAL Nicole Ya [place] [facility] [place], [address] [place] [phone] 0 Phone: () - 11/16 CBC w/ auto diff LY % % 14.0 41.0 8.8 Low FINAL Nicole Terrazas a [facility] [place], [address] [place] [phone] 0 Phone: () - 11/16 CBC w/ auto diff MO % % 6.0 15.0 1.8 Low FINAL Nicole Terrazas a [facility] [place], [address] [place] [phone] 0 Phone: () - 11/16 CBC w/ auto diff EO % % 0.0 7.0 0.0 FINAL Nicole Terrazas a [facility] [place], [address] [place] [phone] 0 Phone: () - 11/16 CBC w/ auto diff BA % % 0.0 2.0 0.0 FINAL Nicole Terrazas a [facility] - [place], [address] [place] [phone] 0 Phone: () - 11/16 CBC w/ auto diff LY # K/uL 0.4 3.6 0.7 FINAL Nicole Terrazas a [facility] [place], [address] [place] [phone] 0 Phone: () - 11/16 CBC w/ auto diff MO # K/uL 0.2 1.3 0.1 Low FINAL Nicole Terrazas a [facility] - [place], [address] [place] [phone] 0 Phone: () - 11/16 CBC w/ auto diff EO # K/uL 0.0 0.6 0.0 FINAL Nicole Carmonaot a [facility] - [place], [address] [place] [phone] 0 Phone: () - 11/16 CBC w/ auto diff BA # K/uL 0.0 0.2 0.0 FINAL Nicole Carmonaot a [facility] - [place], [address] [place] [phone] 0 Phone: () - 11/16 CBC w/ auto diff NRBC % #/100W BC 0.0 0.2 0.0 FINAL Nicole Terrazas a [facility] [place], [address] [place] [phone] 0 Phone: () - 11/16 CBC w/ auto diff RBC M/uL 3.9 5.1 4.16 FINAL Nicole Terrazas a [facility] [place], [address] [place] [phone] 0 Phone: () - 11/16 CBC w/ auto diff HCT % 35.0 48.0 39.7 FINAL Nicole Terrazas a [facility] [place], [address] [place] [phone] 0 Phone: () - 11/16 CBC w/ auto diff MCV fL 80.0 104.0 95.4 FINAL Nicole muñoz [facility] [place], [address] [place] [phone] 0 Phone: () - 11/16 CBC w/ auto diff MCH pg 26.0 35.0 32.2 FINAL Nicole muñoz [facility] [place], [address] [place] [phone] 0 Phone: () - 11/16 CBC w/ auto diff MCHC g/dL 30.0 35.0 33.8 FINAL Nicole Terrazas a [facility] [place], [address] [place] [phone] 0 Phone: () - 11/16 CBC w/ auto diff MPV fL 9.5 13.4 9.3 Low FINAL Nicole Carmonaot a [facility] - [place], [address] [place] [phone] 0 Phone: () - 11/16 CBC w/ auto diff RDW % 11.4 16.1 11.90 FINAL [facility], [address] [facility] [phone] 0 Phone: () - 11/16 CMP Album in g/dL 3.2 5.2 4.5 FINAL [facility] [address] [place] [address] [phone] 0 Phone: () - 11/16 CMP Alkal ine phosp hatas e U/L 46.0 116.0 91 FINAL [place] [address] [phone] 0 Phone: () - 11/16 CMP ALT/S GPT U/L 7.0 40.0 15 FINAL [facility] [place] [address] [address] [facility] [address] [phone] 0 Phone: () - 11/16 CMP AST/S GOT U/L 13.0 40.0 18 FINAL [place] [address] [address] [facility] [address] [phone] 0 Phone: () - 11/16 CMP BUN mg/dL 9.0 23.0 16.0 FINAL [place] [address] [address] [facility] [address] [phone] 0 Phone: () - 11/16 CMP Calci um mg/dL 8.7 10.4 9.8 FINAL [place] [address] [address] [facility] [address] [phone] 0 Phone: () - 11/16 CMP Chlor rakan mmol/L 96.0 114.0 109 FINAL [place] [address] [phone] 0 Phone: () - 11/16 CMP CO2 [...] 96 hour stability window. FINAL Nicole Terrazas [address] [phone] 0 Phone: () - 11/16 CMP Creat inine mg/dL 0.5 1.2 0.88 FINAL Nicole Carmona[address] [phone] 0 Phone: () - 11/16 CMP GFR estim ate ml/min /1.73m ^2 71.2 GFR is calculate d using the CKD-EPI equation. FINAL Nicole Carmona[address] [phone] 0 Phone: () - 11/16 CMP Gluco se mg/dL 73.0 126.0 152 High FINAL Nicole Carmona[address] [phone] 0 Phone: () - 11/16 CMP Potas sium mmol/L 3.5 5.1 4.2 FINAL Nicole Ya Mathew[address] [phone] 0 Phone: () - 11/16 CMP Sodiu m mmol/L 136.0 145.0 142 FINAL Nicole Carmona[address] [phone] 0 Phone: () - 11/16 CMP Bilir ubin, total mg/dL 0.3 1.2 0.6 FINAL Nicole Carmona[address] [phone] 0 Phone: () - 11/16 CMP Total prote in g/dL 5.7 8.2 6.8 FINAL [place] [address] [phone] 0 Phone: () - 11/16 iSTAT creat inine panel Creat inine , iSTAT mg/dl 0.6 1.3 0.9 FINAL Nicole muñoz [facility] [place], [address] [facility] [address] [place] [phone] 0 Phone: () - 11/16 Xi hermosillo inine panel GFR estim ate ml/min /1.73m ^2 69.3 GFR is calculate d using the CKD-EPI equation. FINAL Nicole muñoz [facility] [place], [address] [facility] [address] [place] [phone] 0 Phone: () - 11/21 CMP Album in g/dL 3.2 5.2 3.9 FINAL Nicole muñoz [facility], [facility] [address] [place] [address] [phone] 0 Phone: () - 11/21 CMP Alkal ine phosp hatas e U/L 46.0 116.0 90 FINAL Nicole muñoz [place] [address] [address] [facility] [address] [place] [address] [phone] 0 Phone: () - 11/21 CMP ALT/S GPT U/L 7.0 40.0 37 FINAL Nicole Terrazas [place] [address] [address] [facility] [address] [phone] 0 Phone: () - 11/21 CMP AST/S GOT U/L 13.0 40.0 31 FINAL Nicole muñoz [place] [address] [address] [facility] [address] [phone] 0 Phone: () - 11/21 CMP BUN mg/dL 9.0 23.0 13.0 FINAL Nicole muñoz [facility], [facility] [address] [phone] 0 Phone: () - 11/21 CMP Calci um mg/dL 8.7 10.4 8.9 FINAL Nicole muñoz [place] [address] [phone] 0 Phone: () - 11/21 CMP Chlor rakan mmol/L 96.0 114.0 107 FINAL [place] [address] [address] [facility] [address] [phone] 0 Phone: () - 11/21 CMP CO2 [...] the 96 hour stability window. FINAL [facility], [address] [phone] 0 Phone: () - 11/21 CMP Creat inine mg/dL 0.5 1.2 0.83 FINAL Nicole [place] [address] [phone] 0 Phone: () - 11/21 CMP GFR estim ate ml/min /1.73m ^2 76.3 GFR is calculate d using the CKD-EPI equation. FINAL Nicole [place] [address] [phone] 0 Phone: () - 11/21 CMP Gluco se mg/dL 73.0 126.0 99 FINAL Nicoledarius [place] [address] [phone] 0 Phone: () - 11/21 CMP Potas sium mmol/L 3.5 5.1 3.8 FINAL Nicole [place] [address] [phone] 0 Phone: () - 11/21 CMP Sodiu m mmol/L 136.0 145.0 142 [facility]AL [facility] [address] [phone] 0 Phone: () - 11/21 CMP Bilir ubin, total mg/dL 0.3 1.2 1.3 High FINAL [facility] [address] [phone] 0 Phone: () - 11/21 CMP Total prote in g/dL 5.7 8.2 6.0 FINAL Nicole Terrazas [facility] [place], [address] [place] [phone] 0 Phone: () - 11/21 Smear revie w panel CBC Smear revie w comme nts Consist ent with reporte d results Abnorma l Lymphs present Large and-or giant platele ts present FINAL Nicole Terrazas a [facility] [place], [address] [place] [phone] 0 Phone: () - 11/21 CBC w/ auto diff WBC K/uL 3.0 8.9 1.0 Low FINAL Nicole Terrazas a [facility] [place], [address] [place] [phone] 0 Phone: () - 11/21 CBC w/ auto diff HGB g/dL 11.3 15.2 13.2 FINAL Nicole Terrazas a [facility] [place], [address] [place] [phone] 0 Phone: () - 11/21 CBC w/ auto diff PLT K/uL 113.0 364.0 47 Critica l hematol ogy result obtaine d Criti todd Low FINAL Nicole Terrazas a [facility] [place], [address] [place] [phone] 0 Phone: () - 11/21 CBC w/ auto diff Augustus # (ANC) K/uL 1.6 6.6 0.4 Critica l hematol ogy result obtaine d Criti todd Low FINAL [facility] [place], [address] [place] [phone] 0 Phone: () - 11/21 CBC w/ auto diff Augustus % % 43.0 74.0 34.7 Low FINAL [facility] [place], [address] [place] [phone] 0 Phone: () - 11/21 CBC w/ auto diff IG % % 0.0 0.5 1.9 High FINAL [facility] [place], [address] [place] [id number] 0 Phone: () - 11/21 CBC w/ auto diff IG # K/uL 0.0 0.03 0.02 FINAL [facility] [place], [address] [place] [id number] 0 Phone: () - 11/21 CBC w/ auto diff LY % % 14.0 41.0 56.7 High FINAL [facility] [place], [address] [place] [id number] 0 Phone: () - 11/21 CBC w/ auto diff MO % % 6.0 15.0 1.9 Low FINAL [facility] [place], [address] [place] [phone] 0 Phone: () - 11/21 CBC w/ auto diff EO % % 0.0 7.0 1.9 FINAL [facility] [place], [address] [place] [id number] 0 Phone: () - 11/21 CBC w/ auto diff BA % % 0.0 2.0 2.9 High FINAL [facility] [place], [address] [place] [phone] 0 Phone: () - 11/21 CBC w/ auto diff LY # K/uL 0.4 3.6 0.6 FINAL [facility] [place], [address] [place] [id number] 0 Phone: () - 11/21 CBC w/ auto diff MO # K/uL 0.2 1.3 0.0 Low FINAL [facility] [place], [address] [place] [id number] 0 Phone: () - 11/21 CBC w/ auto diff EO # K/uL 0.0 0.6 0.0 FINAL [facility] [place], [address] [place] [id number] 0 Phone: () - 11/21 CBC w/ auto diff BA # K/uL 0.0 0.2 0.0 FINAL [facility] [place], [address] [place] [phone] 0 Phone: () - 11/21 CBC w/ auto diff NRBC % #/100W BC 0.0 0.2 0.0 FINAL [facility] [place], [address] [place] [id number] 0 Phone: () - 11/21 CBC w/ auto diff RBC M/uL 3.9 5.1 4.07 FINAL [facility] [place], [address] [place] [phone] 0 Phone: () - 11/21 CBC w/ auto diff HCT % 35.0 48.0 38.4 FINAL [facility] [place], [address] [place] [id number] 0 Phone: () - 11/21 CBC w/ auto diff MCV fL 80.0 104.0 94.3 FINAL [facility] [place], [address] [place] [phone] 0 Phone: () - 11/21 CBC w/ auto diff MCH pg 26.0 35.0 32.4 FINAL [facility] [place], [address] [place] [phone] 0 Phone: () - 11/21 CBC w/ auto diff MCHC g/dL 30.0 35.0 34.4 FINAL [facility] [place], [address] [place] [id number] 0 Phone: () - 11/21 CBC w/ auto diff MPV fL 9.5 13.4 10.1 FINAL [facility] [place], [address] [place] [id number] 0 Phone: () - 11/21 CBC w/ auto diff RDW % 11.4 16.1 11.80 FINAL [facility] [place], [address] [place] [phone] 0 Phone: () - 11/21 CBC w/ auto diff Auto CBC comme nts Slide review to follow FINAL [facility] [place], [address] [place] [phone] 0 Phone: () - 11/27 CBC w/ auto diff WBC K/uL 3.0 8.9 32.0 High FINAL [facility] [place], [address] [place] [id number] 0 Phone: () - 11/27 CBC w/ auto diff HGB g/dL 11.3 15.2 13.3 FINAL [facility] [place], [address] [place] [id number] 0 Phone: () - 11/27 CBC w/ auto diff PLT K/uL 113.0 364.0 87 Low FINAL [facility] [place], [address] [place] [id number] 0 Phone: () - 11/27 CBC w/ auto diff Augustus # (ANC) K/uL 1.6 6.6 25.7 High FINAL [facility] [place], [address] [place] [id number] 0 Phone: () - 11/27 CBC w/ auto diff Augustus % % 43.0 74.0 80.5 High FINAL [facility] [place], [address] [place] [id number] 0 Phone: () - 11/27 CBC w/ auto diff IG % % 0.0 0.5 7.6 High FINAL [facility] [place], [address] [place] [id number] 0 Phone: () - 11/27 CBC w/ auto diff IG # K/uL 0.0 0.03 2.44 High FINAL [facility] [place], [address] [place] [id number] 0 Phone: () - 11/27 CBC w/ auto diff LY % % 14.0 41.0 5.8 Low FINAL [facility] [place], [address] [place] [id number] 0 Phone: () - 11/27 CBC w/ auto diff MO % % 6.0 15.0 6.1 FINAL [facility] [place], [address] [place] [id number] 0 Phone: () - 11/27 CBC w/ auto diff EO % % 0.0 7.0 0.0 FINAL [facility] [place], [address] [place] [id number] 0 Phone: () - 11/27 CBC w/ auto diff BA % % 0.0 2.0 0.0 FINAL [facility] [place], [address] [place] [id number] 0 Phone: () - 11/27 CBC w/ auto diff LY # K/uL 0.4 3.6 1.8 FINAL [facility] [place], [address] [place] [phone] 0 Phone: () - 11/27 CBC w/ auto diff MO # K/uL 0.2 1.3 2.0 High FINAL [facility] [place], [address] [place] [id number] 0 Phone: () - 11/27 CBC w/ auto diff EO # K/uL 0.0 0.6 0.0 FINAL [facility] [place], [address] [place] [id number] 0 Phone: () - 11/27 CBC w/ auto diff BA # K/uL 0.0 0.2 0.0 FINAL [facility] [place], [address] [place] [id number] 0 Phone: () - 11/27 CBC w/ auto diff NRBC % #/100W BC 0.0 0.2 0.3 High FINAL Nicole Felton Nini [facility] [place], [address] [place] [id number] 0 Phone: () - 11/27 CBC w/ auto diff RBC M/uL 3.9 5.1 4.09 FINAL Nicole Ya Mathewdamaris [facility] [place], [address] [place] [id number] 0 Phone: () - 11/27 CBC w/ auto diff HCT % 35.0 48.0 38.0 FINAL Nicole Felton Mathewdamaris [facility] [place], [address] [place] [id number] 0 Phone: () - 11/27 CBC w/ auto diff MCV fL 80.0 104.0 92.9 FINAL Nicole Ya Mathewdamaris [facility] [place], [address] [place] [id number] 0 Phone: () - 11/27 CBC w/ auto diff MCH pg 26.0 35.0 32.5 FINAL Nicole Ya Mathewdamaris [facility] [place], [address] [place] [id number] 0 Phone: () - 11/27 CBC w/ auto diff MCHC g/dL 30.0 35.0 35.0 FINAL Nicole Felton [facility] [place], [address] [place] [id number] 0 Phone: () - 11/27 CBC w/ auto diff MPV fL 9.5 13.4 9.1 Low FINAL [facility] [place], [address] [place] [id number] 0 Phone: () - 11/27 CBC w/ auto diff RDW % 11.4 16.1 11.60 FINAL [facility] [place], [address] [place] [id number] 0 Phone: () - 11/27 iSTAT creat inine panel Creat inine , iSTAT mg/dl 0.6 1.3 1.1 FINAL [facility] [place], [address] [place] [id number] 0 Phone: () - 11/27 iSTAT creat inine panel GFR estim ate ml/min /1.73m ^2 54.4 Low GFR is calculate d using the CKD-EPI equation. FINAL [facility] [place], [address] [place] [id number] 0 Phone: () - 11/27 iSTAT Na+/K +/Cl- panel Sodiu m, iSTAT mmol/L 138.0 146.0 137 Low Reference range adjusted 0 with implement ation of I-Stat 8+ cartridge . FINAL [facility] [place], [address] [place] [id number] 0 Phone: () - 11/27 iSTAT Na+/K +/Cl- panel Potas sium, iSTAT mmol/L 3.5 4.9 3.4 Low Reference range adjusted 0 with implement ation of I-Stat 8+ cartridge . FINAL [facility] [place], [address] [place] [id number] 0 Phone: () - 11/27 iSTAT Na+/K +/Cl- panel Chlor rakan, iSTAT mmol/L 98.0 109.0 99 Reference range adjusted 0 with implement ation of I-Stat 8+ cartridge . FINAL [facility] [place], [address] [facility] [place] [phone] 0 Phone: () - 12/07 iSTAT creat inine panel Creat inine , iSTAT mg/dl 0.6 1.3 0.8 FINAL [facility] [place], [address] [facility] [address] [facility] [place] [id number] 0 Phone: () - 12/07 iSTAT creat inine panel GFR estim ate ml/min /1.73m ^2 79.8 GFR is calculate d using the CKD-EPI equation. FINAL [facility] [place], [address] [facility] [address] [facility] [place] [id number] 0 Phone: () - 12/07 CMP Album in g/dL 3.2 5.2 3.9 FINAL Tiara muñoz [facility], [address] [facility] [place] [address] [phone] 0 Phone: () - 12/07 CMP Alkal ine phosp hatas e U/L 46.0 116.0 97 FINAL Tiara muñoz [facility], [address] [place] [address] [phone] 0 Phone: () - 12/07 CMP ALT/S GPT U/L 7.0 40.0 27 [facility], [address] [facility] [id number] 0 Phone: () - 12/07 CMP AST/S GOT U/L 13.0 40.0 17 FINAL Tiara muñoz [facility], [address] [place] [address] [phone] 0 Phone: () - 12/07 CMP BUN mg/dL 9.0 23.0 12.0 FINAL [facility] [address] [facility] [address] [facility] [id number] 0 Phone: () - 12/07 CMP Calci um mg/dL 8.7 10.4 9.8 FINAL Ti[place] [address] [address] [facility] 100 [facility] [id number] 0 Phone: () - 12/07 CMP Chlor rakan mmol/L 96.0 114.0 110 FINAL Ti[place] [address] [address] [facility] [address] [facility] [id number] 0 Phone: () - 12/07 CMP CO2 [...] of the 96 hour stability window. FINAL [place] [address] [phone] 0 Phone: () - 12/07 CMP Creat inine mg/dL 0.5 1.2 0.89 FINAL [place] [address] [id number] 0 Phone: () - 12/07 CMP GFR estim ate ml/min /1.73m ^2 70.2 GFR is calculate d using the CKD-EPI equation. FINAL [place] [address] [phone] 0 Phone: () - 12/07 CMP Gluco se mg/dL 73.0 126.0 152 High FINAL [place] [address] [facility] [address] [facility] [id number] 0 Phone: () - 12/07 CMP Potas sium mmol/L 3.5 5.1 4.3 FINAL [place] [address] [id number] 0 Phone: () - 12/07 CMP Sodiu m mmol/L 136.0 145.0 145 FINAL [facility], [address] [place] [id number] 0 Phone: () - 12/07 CMP Bilir ubin, total mg/dL 0.3 1.2 0.6 FINAL [facility], [address] [facility] [id number] 0 Phone: () - 12/07 CMP Total prote in g/dL 5.7 8.2 5.9 FINAL [facility], [address] [place] [id number] 0 Phone: () - 12/07 CBC w/ auto diff WBC K/uL 3.0 8.9 17.1 High FINAL [facility] [place], [address] [facility] [address] [place] [id number] 0 Phone: () - 12/07 CBC w/ auto diff HGB g/dL 11.3 15.2 10.9 Low FINAL [facility] [place], [address] [facility] [address] [place] [id number] 0 Phone: () - 12/07 CBC w/ auto diff PLT K/uL 113.0 364.0 157 FINAL [facility] [place], [address] [place] [id number] 0 Phone: () - 12/07 CBC w/ auto diff Augustus # (ANC) K/uL 1.6 6.6 15.3 High FINAL [facility] [place], [address] [place] [id number] 0 Phone: () - 12/07 CBC w/ auto diff Augustus % % 43.0 74.0 89.4 High FINAL [facility] [place], [address] [place] [id number] 0 Phone: () - 12/07 CBC w/ auto diff IG % % 0.0 0.5 1.8 High FINAL [facility] [place], [address] [place] [id number] 0 Phone: () - 12/07 CBC w/ auto diff IG # K/uL 0.0 0.03 0.30 High FINAL [facility] [place], [address] [place] [id number] 0 Phone: () - 12/07 CBC w/ auto diff LY % % 14.0 41.0 5.2 Low FINAL [facility] [place], [address] [place] [id number] 0 Phone: () - 12/07 CBC w/ auto diff MO % % 6.0 15.0 3.5 Low FINAL [facility] [place], [address] [facility] [address] [place] [id number] 0 Phone: () - 12/07 CBC w/ auto diff EO % % 0.0 7.0 0.0 FINAL [facility] [place], [address] [facility] [address] [place] [id number] 0 Phone: () - 12/07 CBC w/ auto diff BA % % 0.0 2.0 0.1 FINAL [facility] [place], [address] [place] [id number] 0 Phone: () - 12/07 CBC w/ auto diff LY # K/uL 0.4 3.6 0.9 FINAL [facility] [place], [address] [place] [id number] 0 Phone: () - 12/07 CBC w/ auto diff MO # K/uL 0.2 1.3 0.6 FINAL [facility] [place], [address] [place] [id number] 0 Phone: () - 12/07 CBC w/ auto diff EO # K/uL 0.0 0.6 0.0 FINAL [facility]ara [facility] [place], [address] [facility] [address] [place] [id number] 0 Phone: () - 12/07 CBC w/ auto diff BA # K/uL 0.0 0.2 0.0 FINAL [facility] [place], [address] [facility] [address] [place] [id number] 0 Phone: () - 12/07 CBC w/ auto diff NRBC % #/100W BC 0.0 0.2 0.0 FINAL [facility] [place], [address] [facility] [address] [place] [id number] 0 Phone: () - 12/07 CBC w/ auto diff RBC M/uL 3.9 5.1 3.37 Low FINAL [facility] [place], [address] [facility] [address] [place] [id number] 0 Phone: () - 12/07 CBC w/ auto diff HCT % 35.0 48.0 32.8 Low FINAL [facility] [place], [address] [facility] [address] [place] [id number] 0 Phone: () - 12/07 CBC w/ auto diff MCV fL 80.0 104.0 97.3 FINAL [facility]ara [facility] [place], [address] [facility] [address] [place] [id number] 0 Phone: () - 12/07 CBC w/ auto diff MCH pg 26.0 35.0 32.3 FINAL [facility] [place], [address] [facility] [address] [place] [id number] 0 Phone: () - 12/07 CBC w/ auto diff MCHC g/dL 30.0 35.0 33.2 FINAL [facility] [place], [address] [place] [id number] 0 Phone: () - 12/07 CBC w/ auto diff MPV fL 9.5 13.4 8.9 Low FINAL Ti[facility] [place], [address] [place] [id number] 0 Phone: () - 12/07 CBC w/ auto diff RDW % 11.4 16.1 12.70 FINAL Ti[facility] [place], [address] [place] [id number] 0 Phone: () - 12/12 iSTAT Na+/K +/Cl- panel Sodiu m, iSTAT mmol/L 138.0 146.0 137 Low Reference range adjusted 0 with implement ation of I-Stat 8+ cartridge . FINAL Nicole Ya Nini [facility] - [place], [address] [place] [id number] 0 Phone: () - 12/12 iSTAT Na+/K +/Cl- panel Potas sium, iSTAT mmol/L 3.5 4.9 3.9 Reference range adjusted 0 with implement ation of I-Stat 8+ cartridge . FINAL [facility] [place], [address] [place] [id number] 0 Phone: () - 12/12 iSTAT Na+/K +/Cl- panel Chlor rakan, iSTAT mmol/L 98.0 109.0 99 Reference range adjusted 0 with implement ation of I-Stat 8+ cartridge . FINAL Nicole [facility] [place], [address] [place] [id number] 0 Phone: () - 12/12 CBC w/ auto diff WBC K/uL 3.0 8.9 2.0 Low FINAL Nicole Ya Nini [facility] - [place], [address] [place] [id number] 0 Phone: () - 12/12 CBC w/ auto diff HGB g/dL 11.3 15.2 11.2 Low FINAL [facility] [place], [address] [place] [id number] 0 Phone: () - 12/12 CBC w/ auto diff PLT K/uL 113.0 364.0 27 Critica l hematol ogy result obtaine d Criti todd Low FINAL [facility] [place], [address] [place] [id number] 0 Phone: () - 12/12 CBC w/ auto diff Plate let, immat ure, fract ion % 0.9 11.2 7.0 FINAL [facility] [place], [address] [place] [id number] 0 Phone: () - 12/12 CBC w/ auto diff Augustus # (ANC) K/uL 1.6 6.6 1.1 Low FINAL [facility] [place], [address] [place] [id number] 0 Phone: () - 12/12 CBC w/ auto diff Augustus % % 43.0 74.0 56.0 FINAL [facility] [place], [address] [place] [id number] 0 Phone: () - 12/12 CBC w/ auto diff IG % % 0.0 0.5 3.0 High FINAL [facility] [place], [address] [place] [id number] 0 Phone: () - 12/12 CBC w/ auto diff IG # K/uL 0.0 0.03 0.06 High FINAL [facility] [place], [address] [place] [id number] 0 Phone: () - 12/12 CBC w/ auto diff LY % % 14.0 41.0 35.5 FINAL Nicole [facility] [place], [address] [place] [id number] 0 Phone: () - 12/12 CBC w/ auto diff MO % % 6.0 15.0 2.0 Low FINAL [facility] [place], [address] [place] [id number] 0 Phone: () - 12/12 CBC w/ auto diff EO % % 0.0 7.0 1.0 FINAL [facility] [place], [address] [place] [id number] 0 Phone: () - 12/12 CBC w/ auto diff BA % % 0.0 2.0 2.5 High FINAL [facility] [place], [address] [place] [id number] 0 Phone: () - 12/12 CBC w/ auto diff LY # K/uL 0.4 3.6 0.7 FINAL Nicole [facility] [place], [address] [place] [id number] 0 Phone: () - 12/12 CBC w/ auto diff MO # K/uL 0.2 1.3 0.0 Low FINAL Nicole aCrmonaot a [facility] - [place], [address] [place] [id number] 0 Phone: () - 12/12 CBC w/ auto diff EO # K/uL 0.0 0.6 0.0 FINAL Nicole [facility] [place], [address] [place] [id number] 0 Phone: () - 12/12 CBC w/ auto diff BA # K/uL 0.0 0.2 0.1 FINAL Nicole [facility] - [place], [address] [place] [id number] 0 Phone: () - 12/12 CBC w/ auto diff NRBC % #/100W BC 0.0 0.2 1.0 High FINAL Nicole Ya Nini mu[facility] - [place], [address] [place] [id number] 0 Phone: () - 12/12 CBC w/ auto diff RBC M/uL 3.9 5.1 3.51 Low FINAL Nicole Ya Nini [facility] - [place], [address] [place] [id number] 0 Phone: () - 12/12 CBC w/ auto diff HCT % 35.0 48.0 33.7 Low FINAL Niocle Ya Nini mu[facility]oz [facility] - [place], [address] [place] [id number] 0 Phone: () - 12/12 CBC w/ auto diff MCV fL 80.0 104.0 96.0 FINAL Nicole Ya Mathewdamaris mu[facility]oz [facility] - [place], [address] [place] [id number] 0 Phone: () - 12/12 CBC w/ auto diff MCH pg 26.0 35.0 31.9 FINAL Nicole Ya Nini mu[facility] - [place], [address] [place] [id number] 0 Phone: () - 12/12 CBC w/ auto diff MCHC g/dL 30.0 35.0 33.2 FINAL Nicole Ya Mathewdamaris mu[facility]oz [facility] - [place], [address] [place] [id number] 0 Phone: () - 12/12 CBC w/ auto diff MPV fL 9.5 13.4 11.1 FINAL Nicole Ya Mathewdamaris mu[facility] - [place], [address] [place] [id number] 0 Phone: () - 12/12 CBC w/ auto diff RDW % 11.4 16.1 13.00 FINAL Nicole Ya Mathewdamaris mu[facility] - [place], [address] [place] [id number] 0 Phone: () - 12/27 CBC w/ auto diff WBC K/uL 3.0 8.9 6.3 FINAL Nicole mu[facility]oz [facility] - [place], [address] [facility] [address] [place] [id number] 0 Phone: () - 12/27 CBC w/ auto diff HGB g/dL 11.3 15.2 10.2 Low FINAL Nicole mu[facility] - [place], [address] [facility] [address] [place] [id number] 0 Phone: () - 12/27 CBC w/ auto diff PLT K/uL 113.0 364.0 108 Low FINAL Nicole Ya Nini [facility] - [place], [address] [facility] [address] [place] [id number] 0 Phone: () - 12/27 CBC w/ auto diff Augustus # (ANC) K/uL 1.6 6.6 3.8 FINAL Nicole Felton Nini mu[facility] - [place], [address] [facility] [address] [place] [id number] 0 Phone: () - 12/27 CBC w/ auto diff Augustus % % 43.0 74.0 60.1 FINAL Nicole Felton Nini mu[facility]oz [facility] - [place], [address] [facility] [address] [place] [id number] 0 Phone: () - 12/27 CBC w/ auto diff IG % % 0.0 0.5 0.6 High FINAL Nicole Ya Nini mu[facility] - [place], [address] [place] [id number] 0 Phone: () - 12/27 CBC w/ auto diff IG # K/uL 0.0 0.03 0.04 High FINAL Nicole [facility] - [place], [address] [place] [id number] 0 Phone: () - 12/27 CBC w/ auto diff LY % % 14.0 41.0 25.1 FINAL Nicole Ya Nini [facility] - [place], [address] [place] [id number] 0 Phone: () - 12/27 CBC w/ auto diff MO % % 6.0 15.0 13.7 FINAL Nicole Terraazs a [facility] - [place], [address] [place] [id number] 0 Phone: () - 12/27 CBC w/ auto diff EO % % 0.0 7.0 0.2 FINAL Nicole [facility] - [place], [address] [place] [id number] 0 Phone: () - 12/27 CBC w/ auto diff BA % % 0.0 2.0 0.3 FINAL Nicole [facility] [place], [address] [place] [id number] 0 Phone: () - 12/27 CBC w/ auto diff LY # K/uL 0.4 3.6 1.6 FINAL Nicole [facility] - [place], [address] [place] [id number] 0 Phone: () - 12/27 CBC w/ auto diff MO # K/uL 0.2 1.3 0.9 FINAL Nicole [facility] - [place], [address] [place] [id number] 0 Phone: () - 12/27 CBC w/ auto diff EO # K/uL 0.0 0.6 0.0 FINAL Nicole [facility] [place], [address] [place] [id number] 0 Phone: () - 12/27 CBC w/ auto diff BA # K/uL 0.0 0.2 0.0 FINAL Nicole [facility] - [place], [address] [place] [id number] 0 Phone: () - 12/27 CBC w/ auto diff NRBC % #/100W BC 0.0 0.2 0.0 FINAL Nicole [facility] - [place], [address] [place] [phone] 0 Phone: () - 12/27 CBC w/ auto diff RBC M/uL 3.9 5.1 3.18 Low FINAL Nicole [facility] - [place], [address] [place] [id number] 0 Phone: () - 12/27 CBC w/ auto diff HCT % 35.0 48.0 32.2 Low FINAL Nicole Carmonaot a [facility] - [place], [address] [place] [phone] 0 Phone: () - 12/27 CBC w/ auto diff MCV fL 80.0 104.0 101.3 FINAL Nicole Carmonaot a [facility] - [place], [address] [place] [phone] 0 Phone: () - 12/27 CBC w/ auto diff MCH pg 26.0 35.0 32.1 FINAL Nicole Carmonaot a [facility] - [place], [address] [place] [id number] 0 Phone: () - 12/27 CBC w/ auto diff MCHC g/dL 30.0 35.0 31.7 FINAL Nicole Carmonaot a [facility] - [place], [address] [place] [id number] 0 Phone: () - 12/27 CBC w/ auto diff MPV fL 9.5 13.4 8.8 Low FINAL Nicole Carmonaot a [facility] - [place], [address] [place] [id number] 0 Phone: () - 12/27 CBC w/ auto diff RDW % 11.4 16.1 15.80 FINAL Nicole Carmonaot a [facility] - [place], [address] [place] [phone] 0 Phone: () - 12/27 iSTAT creat inine panel Creat inine , iSTAT mg/dl 0.6 1.3 1.0 FINAL Nicole muñoz [facility] - [place], [address] [facility] [address] [facility] [place] [phone] 0 Phone: () - 12/27 iSTAT creat inine panel GFR estim ate ml/min /1.73m ^2 61.0 GFR is calculate d using the CKD-EPI equation. FINAL Nicole muñoz [facility] - [place], [address] [facility] [address] [facility] [place] [phone] 0 Phone: () - 12/27 CMP Album in g/dL 3.2 5.2 3.7 FINAL Nicole muñoz [facility] [address] [facility] [address] [place] [phone] 0 Phone: () - 12/27 CMP Alkal ine phosp hatas e U/L 46.0 116.0 94 FINAL Nicole muñoz [place] [address] [phone] 0 Phone: () - 12/27 CMP ALT/S GPT U/L 7.0 40.0 33 FINAL Nicole muñoz [place] [address] [id number] 0 Phone: () - 12/27 CMP AST/S GOT U/L 13.0 40.0 21 FINAL Nicole muñoz [place] [address] [id number] 0 Phone: () - 12/27 CMP BUN mg/dL 9.0 23.0 8.0 Low FINAL Nicole muñoz [place] [address] [id number] 0 Phone: () - 12/27 CMP Calci um mg/dL 8.7 10.4 8.5 Low FINAL Nicole muñoz [place] [address] [address] [facility] [address] [phone] 0 Phone: () - 12/27 CMP Chlor rakan mmol/L 96.0 114.0 114 FINAL Nicole Ya [place] [address] [phone] 0 Phone: () - 12/27 CMP CO2 [...] 96 hour stability window. FINAL Nicole Terrazas [place] [address] [phone] 0 Phone: () - 12/27 CMP Creat inine mg/dL 0.5 1.2 0.89 FINAL Nicole muñoz [place] [address] [id number] 0 Phone: () - 12/27 CMP GFR estim ate ml/min /1.73m ^2 70.1 GFR is calculate d using the CKD-EPI equation. FINAL Nicole muñoz [place] [address] [id number] 0 Phone: () - 12/27 CMP Gluco se mg/dL 73.0 126.0 92 FINAL Nicole muñoz [place] [address] [id number] 0 Phone: () - 12/27 CMP Potas sium mmol/L 3.5 5.1 4.3 FINAL Nicole muñoz [place] [address] [id number] 0 Phone: () - 12/27 CMP Sodiu m mmol/L 136.0 145.0 145 FINAL Nicole Carmona toni [place] [address] [id number] 0 Phone: () - 12/27 CMP Bilir ubin, total mg/dL 0.3 1.2 0.5 FINAL Nicole muñoz [place] [address] [id number] 0 Phone: () - 12/27 CMP Total prote in g/dL 5.7 8.2 5.5 Low FINAL Nicole muñoz [facility] [place], [address] [place] [phone] 0 Phone: () - 01/18 iSTAT creat inine panel Creat inine , iSTAT mg/dl 0.6 1.3 0.8 FINAL Nicole muñoz [facility] - [place], [address] [place] [phone] 0 Phone: () - 01/18 iSTAT creat inine panel GFR estim ate ml/min /1.73m ^2 79.7 GFR is calculate d using the CKD-EPI equation. FINAL Nicole muñoz [facility] - [place], [address] [place] [phone] 0 Phone: () - 01/18 CBC w/ auto diff WBC K/uL 3.0 8.9 12.6 High FINAL Nicole muñoz [facility] - [place], [address] [place] [phone] 0 Phone: () - 01/18 CBC w/ auto diff HGB g/dL 11.3 15.2 9.7 Low FINAL Nicole muñoz [facility] - [place], [address] [place] [phone] 0 Phone: () - 01/18 CBC w/ auto diff PLT K/uL 113.0 364.0 124 FINAL Nicole muñoz [facility] - [place], [address] [place] [phone] 0 Phone: () - 01/18 CBC w/ auto diff Augustus # (ANC) K/uL 1.6 6.6 10.7 High FINAL Nicole Terrazas a [facility] - [place], [address] [place] [id number] 0 Phone: () - 01/18 CBC w/ auto diff Augustus % % 43.0 74.0 84.3 High FINAL Nicole Ya [place] [facility] - [place], [address] [place] [phone] 0 Phone: () - 01/18 CBC w/ auto diff IG % % 0.0 0.5 4.4 High FINAL Nicole Terrazas a [facility] - [place], [address] [place] [phone] 0 Phone: () - 01/18 CBC w/ auto diff IG # K/uL 0.0 0.03 0.56 High FINAL Nicole Terrazas a [facility] - [place], [address] [place] [phone] 0 Phone: () - 01/18 CBC w/ auto diff LY % % 14.0 41.0 8.5 Low FINAL Nicole Terrazas a [facility] - [place], [address] [place] [id number] 0 Phone: () - 01/18 CBC w/ auto diff MO % % 6.0 15.0 2.6 Low FINAL Nicole Terrazas a [facility] - [place], [address] [place] [id number] 0 Phone: () - 01/18 CBC w/ auto diff EO % % 0.0 7.0 0.0 FINAL Nicole Terrazas a [facility] - [place], [address] [place] [id number] 0 Phone: () - 01/18 CBC w/ auto diff BA % % 0.0 2.0 0.2 FINAL Nicole Terrazas a [facility] - [place], [address] [place] [phone] 0 Phone: () - 01/18 CBC w/ auto diff LY # K/uL 0.4 3.6 1.1 FINAL Nicole Carmonaot a [facility] - [place], [address] [place] [phone] 0 Phone: () - 01/18 CBC w/ auto diff MO # K/uL 0.2 1.3 0.3 FINAL Nicole Carmonaot a [facility] - [place], [address] [place] [id number] 0 Phone: () - 01/18 CBC w/ auto diff EO # K/uL 0.0 0.6 0.0 FINAL Nicole Carmonaot a [facility] - [place], [address] [place] [id number] 0 Phone: () - 01/18 CBC w/ auto diff BA # K/uL 0.0 0.2 0.0 FINAL Nicole Carmonaot a [facility] - [place], [address] [place] [id number] 0 Phone: () - 01/18 CBC w/ auto diff NRBC % #/100W BC 0.0 0.2 0.5 High FINAL Nicole Carmonaot a [facility] - [place], [address] [place] [id number] 0 Phone: () - 01/18 CBC w/ auto diff RBC M/uL 3.9 5.1 2.85 Low FINAL Nicole Carmonaot a [facility] - [place], [address] [place] [id number] 0 Phone: () - 01/18 CBC w/ auto diff HCT % 35.0 48.0 29.8 Low FINAL Nicole Carmonaot a [facility] - [place], [address] [place] [id number] 0 Phone: () - 01/18 CBC w/ auto diff MCV fL 80.0 104.0 104.6 High FINAL Nicole Carmonaot a [facility] - [place], [address] [place] [id number] 0 Phone: () - 01/18 CBC w/ auto diff MCH pg 26.0 35.0 34.0 FINAL Nicole Carmonaot a [facility] - [place], [address] [place] [id number] 0 Phone: () - 01/18 CBC w/ auto diff MCHC g/dL 30.0 35.0 32.6 FINAL Nicole muñoz [facility] - [place], [address] [facility] [address] [place] [phone] 0 Phone: () - 01/18 CBC w/ auto diff MPV fL 9.5 13.4 9.0 Low FINAL Nicole muñoz [facility] - [place], [address] [facility] [address] [place] [phone] 0 Phone: () - 01/18 CBC w/ auto diff RDW % 11.4 16.1 19.00 High FINAL Nicole muñoz [facility] - [place], [address] [facility] [address] [facility] [place] [id number] 0 Phone: () - 01/18 CMP Album in g/dL 3.2 5.2 3.7 FINAL Nicole muñoz [facility], [address] [place] [address] [phone] 0 Phone: () - 01/18 CMP Alkal ine phosp hatas e U/L 46.0 116.0 94 FINAL Nicole Carmona a [facility], [address] [place] [address] [phone] 0 Phone: () - 01/18 CMP ALT/S GPT U/L 7.0 40.0 33 FINAL Nicole Carmona a [facility], [address] [place] [address] [id number] 0 Phone: () - 01/18 CMP AST/S GOT U/L 13.0 40.0 18 FINAL Nicole Terrazas a [facility], [address] [place] [id number] 0 Phone: () - 01/18 CMP BUN mg/dL 9.0 23.0 10.0 FINAL Nicole Carmona a [facility], [address] [facility] [id number] 0 Phone: () - 01/18 CMP Calci um mg/dL 8.7 10.4 9.0 FINAL Nicole Carmona a [facility], [address] [id number] 0 Phone: () - 01/18 CMP Chlor rakan mmol/L 96.0 114.0 108 FINAL Nicole muñoz [place] [address] [id number] 0 Phone: () - 01/18 CMP CO2 [...] 96 hour stability window. FINAL Nicole muñoz [address] [phone] 0 Phone: () - 01/18 CMP Creat inine mg/dL 0.5 1.2 0.80 FINAL Nicole muñoz [address] [id number] 0 Phone: () - 01/18 CMP GFR estim ate ml/min /1.73m ^2 79.7 GFR is calculate d using the CKD-EPI equation. FINAL Nicole muñoz [place] [address] [id number] 0 Phone: () - 01/18 CMP Gluco se mg/dL 73.0 126.0 156 High FINAL Nicole muñoz [place] [address] [id number] 0 Phone: () - 01/18 CMP Potas sium mmol/L 3.5 5.1 4.7 FINAL [place] [address] [id number] 0 Phone: () - 01/18 CMP Sodiu m mmol/L 136.0 145.0 145 FINAL Nicole muñoz [place] [address] [id number] 0 Phone: () - 01/18 CMP Bilir ubin, total mg/dL 0.3 1.2 0.5 FINAL Nicole muñoz [facility] [place], [address] [place] [id number] 0 Phone: () - 01/18 CMP Total prote in g/dL 5.7 8.2 5.6 Low FINAL Nicole muñoz [facility] [place], [address] [place] [id number] 0 Phone: () - 01/29 iSTAT Na+/K +/Cl- panel Sodiu m, iSTAT mmol/L 138.0 146.0 134 Low Reference range adjusted 0 with implement ation of I-Stat 8+ cartridge . FINAL Nicole muñoz [facility] - [place], [address] [facility] [address] [place] [phone] 0 Phone: () - 01/29 iSTAT Na+/K +/Cl- panel Potas sium, iSTAT mmol/L 3.5 4.9 3.4 Low Reference range adjusted 0 with implement ation of I-Stat 8+ cartridge . FINAL Nicole muñoz [facility] - [place], [address] [facility] [address] [place] [phone] 0 Phone: () - 01/29 iSTAT Na+/K +/Cl- panel Chlor rakan, iSTAT mmol/L 98.0 109.0 97 Low Reference range adjusted 0 with implement ation of I-Stat 8+ cartridge . FINAL Nicole muñoz [facility] - [place], [address] [place] [id number] 0 Phone: () - 01/29 CBC w/ auto diff WBC K/uL 3.0 8.9 19.0 High FINAL Nicole muñoz [facility] - [place], [address] [address] [place] [id number] 0 Phone: () - 01/29 CBC w/ auto diff HGB g/dL 11.3 15.2 8.8 Low FINAL Nicole muñoz [facility] - [place], [address] [place] [id number] 0 Phone: () - 01/29 CBC w/ auto diff PLT K/uL 113.0 364.0 59 Low FINAL Nicole Carmonaot a [facility] - [place], [address] [place] [id number] 0 Phone: () - 01/29 CBC w/ auto diff Augustus # (ANC) K/uL 1.6 6.6 16.7 High FINAL Nicole Carmonaot a [facility] - [place], [address] [place] [id number] 0 Phone: () - 01/29 CBC w/ auto diff Augustus % % 43.0 74.0 88.0 High FINAL Nicole Ya Mathewot a [facility] - [place], [address] [place] [id number] 0 Phone: () - 01/29 CBC w/ auto diff IG % % 0.0 0.5 1.9 High FINAL Nicole Ya Nini a [facility] - [place], [address] [place] [id number] 0 Phone: () - 01/29 CBC w/ auto diff IG # K/uL 0.0 0.03 0.36 High FINAL Nicole Ya Nini a [facility] - [place], [address] [place] [id number] 0 Phone: () - 01/29 CBC w/ auto diff LY % % 14.0 41.0 5.1 Low FINAL Nicole Carmonaot a [facility] - [place], [address] [place] [id number] 0 Phone: () - 01/29 CBC w/ auto diff MO % % 6.0 15.0 4.8 Low FINAL Nicole Carmonaot a [facility] - [place], [address] [place] [id number] 0 Phone: () - 01/29 CBC w/ auto diff EO % % 0.0 7.0 0.0 FINAL Nicole Carmonaot a [facility] - [place], [address] [place] [id number] 0 Phone: () - 01/29 CBC w/ auto diff BA % % 0.0 2.0 0.2 FINAL Nicole Terrazas a [facility] - [place], [address] [place] [id number] 0 Phone: () - 01/29 CBC w/ auto diff LY # K/uL 0.4 3.6 1.0 FINAL Nicole Terrazas a [facility] - [place], [address] [place] [id number] 0 Phone: () - 01/29 CBC w/ auto diff MO # K/uL 0.2 1.3 0.9 FINAL Nicole Terrazas a [facility] - [place], [address] [place] [id number] 0 Phone: () - 01/29 CBC w/ auto diff EO # K/uL 0.0 0.6 0.0 FINAL Nicole Terrazas a [facility] - [place], [address] [place] [id number] 0 Phone: () - 01/29 CBC w/ auto diff BA # K/uL 0.0 0.2 0.0 FINAL Nicole Terrazas a [facility] - [place], [address] [place] [id number] 0 Phone: () - 01/29 CBC w/ auto diff NRBC % #/100W BC 0.0 0.2 0.0 FINAL Nicole Terrazas a [facility] - [place], [address] [place] [id number] 0 Phone: () - 01/29 CBC w/ auto diff RBC M/uL 3.9 5.1 2.58 Low FINAL Nicole Carmonaot a [facility] - [place], [address] [place] [id number] 0 Phone: () - 01/29 CBC w/ auto diff HCT % 35.0 48.0 27.0 Low FINAL Nicole Carmonaot a [facility] - [place], [address] [place] [id number] 0 Phone: () - 01/29 CBC w/ auto diff MCV fL 80.0 104.0 104.7 High FINAL Nicole Ya Mathewot a [facility] - [place], [address] [place] [id number] 0 Phone: () - 01/29 CBC w/ auto diff MCH pg 26.0 35.0 34.1 FINAL Nicole Felton Mathewot a [facility] - [place], [address] [place] [id number] 0 Phone: () - 01/29 CBC w/ auto diff MCHC g/dL 30.0 35.0 32.6 FINAL Nicole Felton [place] a [facility] - [place], [address] [place] [id number] 0 Phone: () - 01/29 CBC w/ auto diff MPV fL 9.5 13.4 9.3 Low FINAL Nicole Felton Nini muñoz [facility] - [place], [address] [place] [id number] 0 Phone: () - 01/29 CBC w/ auto diff RDW % 11.4 16.1 17.80 High FINAL Nicole Felton [place] a [facility] - [place], [address] [place] [id number] 0 Phone: () - 02/05 CBC w/ auto diff BA # K/uL 0.0 0.2 0.0 FINAL Nicole Felton [place] a [facility] - [place], [address] [place] [id number] 0 Phone: () - 02/05 CBC w/ auto diff NRBC % #/100W BC 0.0 0.2 0.1 FINAL Nicole Felton [place] a [facility] - [place], [address] [place] [id number] 0 Phone: () - 02/05 CBC w/ auto diff RBC M/uL 3.9 5.1 2.96 Low FINAL Nicole Felton Mathewdamaris muñoz [facility] - [place], [address] [place] [id number] 0 Phone: () - 02/05 CBC w/ auto diff HCT % 35.0 48.0 30.3 Low FINAL Nicole Felton Mathewdamaris muñoz [facility] - [place], [address] [place] [id number] 0 Phone: () - 02/05 CBC w/ auto diff MCV fL 80.0 104.0 102.4 FINAL Nicole Ya Mathewdamaris muñoz [facility] - [place], [address] [place] [id number] 0 Phone: () - 02/05 CBC w/ auto diff MCH pg 26.0 35.0 33.8 FINAL Nicole Ya Mathewdamaris muñoz [facility] - [place], [address] [facility] [address] [place] [id number] 0 Phone: () - 02/05 CBC w/ auto diff MCHC g/dL 30.0 35.0 33.0 FINAL Nicole Ya Mathewdamaris muñoz [facility] - [place], [address] [place] [id number] 0 Phone: () - 02/05 CBC w/ auto diff MPV fL 9.5 13.4 8.5 Low FINAL Nicole Ya Mathewdamaris muñoz [facility] - [place], [address] [place] [id number] 0 Phone: () - 02/05 CBC w/ auto diff RDW % 11.4 16.1 16.10 FINAL Nicole Ya Mathewdamaris muñoz [facility] - [place], [address] [place] [id number] 0 Phone: () - 02/05 CBC w/ auto diff WBC K/uL 3.0 8.9 16.6 High FINAL Nicole Ya Mathewdamaris muñoz [facility] - [place], [address] [place] [id number] 0 Phone: () - 02/05 CBC w/ auto diff HGB g/dL 11.3 15.2 10.0 Low FINAL Nicole Felton Mathew[place] a [facility] - [place], [address] [place] [id number] 0 Phone: () - 02/05 CBC w/ auto diff PLT K/uL 113.0 364.0 122 FINAL Nicole Ya Mathewot a [facility] - [place], [address] [place] [id number] 0 Phone: () - 02/05 CBC w/ auto diff Augustus # (ANC) K/uL 1.6 6.6 12.9 High FINAL Nicole Ya Mathewot a [facility] - [place], [address] [place] [id number] 0 Phone: () - 02/05 CBC w/ auto diff Augustus % % 43.0 74.0 77.5 High FINAL Nicole Ya Mathewdamaris a [facility] - [place], [address] [place] [id number] 0 Phone: () - 02/05 CBC w/ auto diff IG % % 0.0 0.5 1.1 High FINAL Nicole Ya Mathewot a [facility] - [place], [address] [place] [id number] 0 Phone: () - 02/05 CBC w/ auto diff IG # K/uL 0.0 0.03 0.19 High FINAL Nicole Felton Mathewot a [facility] - [place], [address] [place] [id number] 0 Phone: () - 02/05 CBC w/ auto diff LY % % 14.0 41.0 11.4 Low FINAL Nicole Ya Mathewot a [facility] - [place], [address] [place] [id number] 0 Phone: () - 02/05 CBC w/ auto diff MO % % 6.0 15.0 9.9 FINAL Nicole Terrazas a [facility] - [place], [address] [place] [id number] 0 Phone: () - 02/05 CBC w/ auto diff EO % % 0.0 7.0 0.0 FINAL Nicole Terrazas a [facility] - [place], [address] [place] [id number] 0 Phone: () - 02/05 CBC w/ auto diff BA % % 0.0 2.0 0.1 FINAL Nicole muñoz [facility] - [place], [address] [place] [id number] 0 Phone: () - 02/05 CBC w/ auto diff LY # K/uL 0.4 3.6 1.9 FINAL Nicole muñoz [facility] - [place], [address] [place] [id number] 0 Phone: () - 02/05 CBC w/ auto diff MO # K/uL 0.2 1.3 1.6 High FINAL Nicole muñoz [facility] - [place], [address] [place] [id number] 0 Phone: () - 02/05 CBC w/ auto diff EO # K/uL 0.0 0.6 0.0 FINAL Nicole muñoz [facility] [place], [address] [place] [phone] 0 Phone: () - 02/05 iSTAT Na+/K +/Cl- panel Sodiu m, iSTAT mmol/L 138.0 146.0 134 Low Reference range adjusted 0 with implement ation of I-Stat 8+ cartridge . FINAL Nicole muñoz [facility] [place], [address] [place] [id number] 0 Phone: () - 02/05 iSTAT Na+/K +/Cl- panel Potas sium, iSTAT mmol/L 3.5 4.9 3.1 Low Reference range adjusted 0 with implement ation of I-Stat 8+ cartridge . FINAL Nicole muñoz [facility] [place], [address] [facility] [address] [place] [id number] 0 Phone: () - 02/05 iSTAT Na+/K +/Cl- panel Chlor rakan, iSTAT mmol/L 98.0 109.0 95 Low Reference range adjusted 0 with implement ation of I-Stat 8+ cartridge . FINAL Nicole muñoz [facility] [place], [address] [facility] [address] [place] [id number] 0 Phone: () - 02/05 iSTAT creat inine panel Creat inine , iSTAT mg/dl 0.6 1.3 0.8 FINAL Tiara muñoz [facility] - [place], [address] [facility] [address] [place] [id number] 0 Phone: () - 02/05 iSTAT creat inine panel GFR estim ate ml/min /1.73m ^2 79.7 GFR is calculate d using the CKD-EPI equation. FINAL Tiara umñoz [facility] [place], [address] [address] [place] [id number] 0 Phone: () - 02/05 Magne sium, mg/dL mg/dL 1.5 2.3 1.4 Low FINAL Tiara muñoz [facility] [place], [address] [place] [id number] 0 Phone: () - 02/07 iSTAT creat inine panel Creat inine , iSTAT mg/dl 0.6 1.3 1.0 FINAL Tiara muñoz [facility] - [place], [address] [facility] [address] [place] [id number] 0 Phone: () - 02/07 iSTAT creat inine panel GFR estim ate ml/min /1.73m ^2 61.0 GFR is calculate d using the CKD-EPI equation. FINAL Tiara muñoz [facility] [place], [address] [facility] [address] [place] [id number] 0 Phone: () - 02/07 iSTAT Na+/K +/Cl- panel Sodiu m, iSTAT mmol/L 138.0 146.0 137 Low Reference range adjusted 0 with implement ation of I-Stat 8+ cartridge . FINAL Tiara Carmona toni [facility] - [place], [address] [facility] [address] [place] [id number] 0 Phone: () - 02/07 iSTAT Na+/K +/Cl- panel Potas sium, iSTAT mmol/L 3.5 4.9 3.2 Low Reference range adjusted 0 with implement ation of I-Stat 8+ cartridge . FINAL Tiara Carmona toni [facility] - [place], [address] [facility] [address] [facility] [place] [phone] 0 Phone: () - 02/07 iSTAT Na+/K +/Cl- panel Chlor rakan, iSTAT mmol/L 98.0 109.0 100 Reference range adjusted 0 with implement ation of I-Stat 8+ cartridge . FINAL Tiara Carmona toni [facility] [place], [address] [facility] [address] [facility] [place] [phone] 0 Phone: () - 02/07 Magne sium, mg/dL mg/dL 1.5 2.3 1.5 FINAL [facility] [place], [address] [place] [id number] 0 Phone: () - 02/08 Clost ridiu [...] been establish ed.This assay was performed by [employer] GeneXpert (R) PCR.The performan ce character istics of this assay havebeen determine d by [employer]. Performan cecharact eristics refer to the analytica l performan ceof the test.For additiona l informati on, please refer tohttp:// education .Newsblur/faq/F AQ136(Thi s link is being provided forinform ational/e ducationa l purposes only.)[CA ] FINAL Tiara NEGRETE [facility] [address] [place] [id number] 4 02/08 Clost ridiu m diffi cile toxin PCR panel CLOST RIDIU M DIFFI CILE TOXIN /GDH W/REF L TO PCR SEE NOTE CLOSTRIDI UM DIFFICILE TOXIN/GDH W/REFL TO PCRMicro Number: [id number] est Status: FinalSpec imen Source: StoolSpec imen Quality: AdequateG DH Antigen: DetectedT oxin A and B: Not DetectedC OMMENT: Indetermi vikram. Specimen forwarded fortoxige cesar C. difficile PCR testing.F or additiona l informati on, please refer tohttp:// education .Newsblur/faq/F [email or web address](Thi s link is being provided forinform ational/e ducationa l purposes only.)[CB ] FINAL Tiara NEGRETE [employer] [employer] [address] [facility] [id number] 4 02/08 CMP Album in g/dL 3.2 5.2 3.2 FINAL Nicole Carmona a On[facility], [address] [facility] [address] [place] [address] [phone] 0 Phone: () - 02/08 CMP Alkal ine phosp hatas e U/L 46.0 116.0 85 FINAL Nicole Terrazas a Oncology [facility], [address] [facility] [address] [place] [address] [id number] 0 Phone: () - 02/08 CMP ALT/S GPT U/L 7.0 40.0 24 FINAL [facility] [address] [facility] [id number] 0 Phone: () - 02/08 CMP AST/S GOT U/L 13.0 40.0 16 [facility]AL [facility] [address] [facility] [address] [facility] [id number] 0 Phone: () - 02/08 CMP BUN mg/dL 9.0 23.0 8.0 Low FINAL Nicole [place] [address] [address] [facility] 100 [facility] [phone] 0 Phone: () - 02/08 CMP Calci um mg/dL 8.7 10.4 8.3 Low FINAL Nicole [place] [address] [address] [facility] 100 [facility] [phone] 0 Phone: () - 02/08 CMP Chlor rakan mmol/L 96.0 114.0 111 FINAL [place] [address] [address] [facility] [address] [phone] 0 Phone: () - 02/08 CMP CO2 [...] of the 96 hour stability window. FINAL Nciole Terrazas [facility], [facility] [address] [place] [address] [phone] 0 Phone: () - 02/08 CMP Creat inine mg/dL 0.5 1.2 0.86 FINAL [place] [address] [address] [facility] [address] [place] [address] [phone] 0 Phone: () - 02/08 CMP GFR estim ate ml/min /1.73m ^2 73.0 GFR is calculate d using the CKD-EPI equation. FINAL [facility], [address] [facility] [address] [phone] 0 Phone: () - 02/08 CMP Gluco se mg/dL 73.0 126.0 129 High FINAL Nicole muñoz [facility], [address] [facility] [address] [id number] 0 Phone: () - 02/08 CMP Potas sium mmol/L 3.5 5.1 3.6 FINAL Nicole muñoz [facility], [address] [facility] [address] [id number] 0 Phone: () - 02/08 CMP Sodiu m mmol/L 136.0 145.0 144 FINAL Nicole muñoz [facility], [address] [id number] 0 Phone: () - 02/08 CMP Bilir ubin, total mg/dL 0.3 1.2 0.3 FINAL Nicole muñoz [facility], [address] [id number] 0 Phone: () - 02/08 CMP Total prote in g/dL 5.7 8.2 4.8 Low FINAL Nicole muñoz [facility], [address] [id number] 0 Phone: () - 02/08 CBC w/ auto diff WBC K/uL 3.0 8.9 17.2 High FINAL Nicole muñoz [facility] - [place], [address] [place] [facility] [phone] 0 Phone: () - 02/08 CBC w/ auto diff HGB g/dL 11.3 15.2 7.9 Critica l hematol ogy result obtaine d Criti todd Low FINAL Nicole Terrazas a [facility] - [place], [address] [place] [id number] 0 Phone: () - 02/08 CBC w/ auto diff PLT K/uL 113.0 364.0 123 FINAL Nicole muñoz [facility] - [place], [address] [place] [facility] [phone] 0 Phone: () - 02/08 CBC w/ auto diff Augustus # (ANC) K/uL 1.6 6.6 13.8 High FINAL Nicole Terrazas a [facility] - [place], [address] [place] [id number] 0 Phone: () - 02/08 CBC w/ auto diff Augustus % % 43.0 74.0 80.0 High FINAL Nicole Terrazas a [facility] - [place], [address] [place] [id number] 0 Phone: () - 02/08 CBC w/ auto diff IG % % 0.0 0.5 2.2 High FINAL Nicole muñoz [facility] - [place], [address] [place] [phone] 0 Phone: () - 02/08 CBC w/ auto diff IG # K/uL 0.0 0.03 0.38 High FINAL Nicole muñoz [facility] - [place], [address] [place] [id number] 0 Phone: () - 02/08 CBC w/ auto diff LY % % 14.0 41.0 9.3 Low FINAL Nicole muñoz [facility] - [place], [address] [place] [id number] 0 Phone: () - 02/08 CBC w/ auto diff MO % % 6.0 15.0 8.4 FINAL Nicole muñoz [facility] - [place], [address] [place] [phone] 0 Phone: () - 02/08 CBC w/ auto diff EO % % 0.0 7.0 0.0 FINAL Nicole Terrzaas a [facility] - [place], [address] [place] [id number] 0 Phone: () - 02/08 CBC w/ auto diff BA % % 0.0 2.0 0.1 FINAL Nicole Carmonaot a [facility] - [place], [address] [place] [id number] 0 Phone: () - 02/08 CBC w/ auto diff LY # K/uL 0.4 3.6 1.6 FINAL Nicole Carmonaot a [facility] - [place], [address] [place] [phone] 0 Phone: () - 02/08 CBC w/ auto diff MO # K/uL 0.2 1.3 1.5 High FINAL Nicole Carmonaot a [facility] - [place], [address] [place] [id number] 0 Phone: () - 02/08 CBC w/ auto diff EO # K/uL 0.0 0.6 0.0 FINAL Nicole Carmonaot a [facility] - [place], [address] [place] [id number] 0 Phone: () - 02/08 CBC w/ auto diff BA # K/uL 0.0 0.2 0.0 FINAL Nicole Terrazas a [facility] - [place], [address] [place] [id number] 0 Phone: () - 02/08 CBC w/ auto diff NRBC % #/100W BC 0.0 0.2 0.3 High FINAL Nicole Carmonaot a [facility] - [place], [address] [place] [id number] 0 Phone: () - 02/08 CBC w/ auto diff RBC M/uL 3.9 5.1 2.33 Low FINAL Nicole Carmonaot a [facility] - [place], [address] [place] [id number] 0 Phone: () - 02/08 CBC w/ auto diff HCT % 35.0 48.0 24.6 Low FINAL Nicole Carmonaot a [facility] - [place], [address] [place] [id number] 0 Phone: () - 02/08 CBC w/ auto diff MCV fL 80.0 104.0 105.6 High FINAL Nicole Terrazas a [facility] - [place], [address] [place] [id number] 0 Phone: () - 02/08 CBC w/ auto diff MCH pg 26.0 35.0 33.9 FINAL Nicole muñoz [facility] - [place], [address] [place] [id number] 0 Phone: () - 02/08 CBC w/ auto diff MCHC g/dL 30.0 35.0 32.1 FINAL Nicole muñoz [facility] - [place], [address] [place] [id number] 0 Phone: () - 02/08 CBC w/ auto diff MPV fL 9.5 13.4 9.1 Low FINAL Nicole muñoz [facility] - [place], [address] [place] [id number] 0 Phone: () - 02/08 CBC w/ auto diff RDW % 11.4 16.1 16.70 High FINAL Nicole muñoz [facility] - [place], [address] [place] [id number] 0 Phone: () - 02/08 iSTAT creat inine panel Creat inine , iSTAT mg/dl 0.6 1.3 0.8 FINAL Nicole muñoz [facility] - [place], [address] [place] [phone] 0 Phone: () - 02/08 iSTAT creat inine panel GFR estim ate ml/min /1.73m ^2 79.7 GFR is calculate d using the CKD-EPI equation. FINAL Nicole muñzo [facility] - [place], [address] [place] [phone] 0 Phone: () - 02/12 Magne sium, mg/dL mg/dL 1.5 2.3 1.5 FINAL Nicole muñoz [facility] [place], [address] [place] [phone] 0 Phone: () - 02/12 iSTAT Na+/K +/Cl- panel Sodiu m, iSTAT mmol/L 138.0 146.0 139 Reference range adjusted 0 with implement ation of I-Stat 8+ cartridge . FINAL Nicole Ya Mathewdamaris muñoz [facility] - [place], [address] [place] [phone] 0 Phone: () - 02/12 iSTAT Na+/K +/Cl- panel Yolanda sium, iSTAT mmol/L 3.5 4.9 3.8 Reference range adjusted 0 with implement ation of I-Stat 8+ cartridge . FINAL Nicole Ya Mathewdamaris muñoz [facility] - [place], [address] [place] [phone] 0 Phone: () - 02/12 iSTAT Na+/K +/Cl- panel Chlor rakan, iSTAT mmol/L 98.0 109.0 100 Reference range adjusted 0 with implement ation of I-Stat 8+ cartridge . FINAL Nicole Ya Mathewdamaris muñoz [facility] - [place], [address] [place] [id number] 0 Phone: () - 02/12 CBC w/ auto diff WBC K/uL 3.0 8.9 9.0 High FINAL Nicole Ya Mathewdamaris muñoz [facility] - [place], [address] [place] [id number] 0 Phone: () - 02/12 CBC w/ auto diff HGB g/dL 11.3 15.2 8.7 Low FINAL Nicole Ya Mathewdamaris muñoz [facility] - [place], [address] [place] [id number] 0 Phone: () - 02/12 CBC w/ auto diff PLT K/uL 113.0 364.0 154 FINAL Nicole Ya Mathewdamaris muñoz [facility] - [place], [address] [place] [id number] 0 Phone: () - 02/12 CBC w/ auto diff Augustus # (ANC) K/uL 1.6 6.6 6.5 FINAL Nicole Terrazas a [facility] - [place], [address] [place] [id number] 0 Phone: () - 02/12 CBC w/ auto diff Augustus % % 43.0 74.0 72.4 FINAL Nicole Terrazas a [facility] - [place], [address] [place] [id number] 0 Phone: () - 02/12 CBC w/ auto diff IG % % 0.0 0.5 0.9 High FINAL Nicole Terrazas a [facility] - [place], [address] [place] [id number] 0 Phone: () - 02/12 CBC w/ auto diff IG # K/uL 0.0 0.03 0.08 High FINAL Nicole Carmonaot toni [facility] - [place], [address] [place] [phone] 0 Phone: () - 02/12 CBC w/ auto diff LY % % 14.0 41.0 17.0 FINAL Nicole muñoz [facility] - [place], [address] [place] [id number] 0 Phone: () - 02/12 CBC w/ auto diff MO % % 6.0 15.0 9.4 FINAL Nicole muñoz [facility] - [place], [address] [place] [id number] 0 Phone: () - 02/12 CBC w/ auto diff EO % % 0.0 7.0 0.3 FINAL Nicole Carmonaot a [facility] - [place], [address] [place] [id number] 0 Phone: () - 02/12 CBC w/ auto diff BA % % 0.0 2.0 0.0 FINAL Nicole Carmonaot a [facility] - [place], [address] [place] [id number] 0 Phone: () - 02/12 CBC w/ auto diff LY # K/uL 0.4 3.6 1.5 FINAL Nicole Ya Nini a [facility] - [place], [address] [place] [id number] 0 Phone: () - 02/12 CBC w/ auto diff MO # K/uL 0.2 1.3 0.8 FINAL Nicole Ya Nini muñoz [facility] - [place], [address] [place] [id number] 0 Phone: () - 02/12 CBC w/ auto diff EO # K/uL 0.0 0.6 0.0 FINAL Nicole Felton Nini muñoz [facility] - [place], [address] [place] [id number] 0 Phone: () - 02/12 CBC w/ auto diff BA # K/uL 0.0 0.2 0.0 FINAL Nicole Felton Nini muñoz [facility] - [place], [address] [place] [id number] 0 Phone: () - 02/12 CBC w/ auto diff NRBC % #/100W BC 0.0 0.2 0.0 FINAL Nicole Felton Nini muñoz [facility] - [place], [address] [place] [id number] 0 Phone: () - 02/12 CBC w/ auto diff RBC M/uL 3.9 5.1 2.54 Low FINAL Nicole Ya Nini a [facility] - [place], [address] [place] [id number] 0 Phone: () - 02/12 CBC w/ auto diff HCT % 35.0 48.0 27.5 Low FINAL Nicole Felton Mathewot a [facility] - [place], [address] [place] [id number] 0 Phone: () - 02/12 CBC w/ auto diff MCV fL 80.0 104.0 108.3 High FINAL Nicole Felton Mathewot a [facility] - [place], [address] [place] [id number] 0 Phone: () - 02/12 CBC w/ auto diff MCH pg 26.0 35.0 34.3 FINAL Nicole muñoz [facility] - [place], [address] [place] [id number] 0 Phone: () - 02/12 CBC w/ auto diff MCHC g/dL 30.0 35.0 31.6 FINAL Nicole muñoz [facility] - [place], [address] [place] [id number] 0 Phone: () - 02/12 CBC w/ auto diff MPV fL 9.5 13.4 8.3 Low FINAL Nicole muñoz [facility] - [place], [address] [place] [id number] 0 Phone: () - 02/12 CBC w/ auto diff RDW % 11.4 16.1 17.40 High FINAL Nicole muñoz [facility] - [place], [address] [place] [id number] 0 Phone: () - 03/01 CMP Album in g/dL 3.2 5.2 3.4 FINAL Nicole muñoz [facility], [address] [place] [id number] 0 Phone: () - 03/01 CMP Alkal ine phosp hatas e U/L 46.0 116.0 89 FINAL Nicole Terrazas a [facility], [address] [place] [id number] 0 Phone: () - 03/01 CMP ALT/S GPT U/L 7.0 40.0 15 FINAL Nicole Terrazas a [facility], [address] [place] [id number] 0 Phone: () - 03/01 CMP AST/S GOT U/L 13.0 40.0 18 FINAL Nicole muñoz [facility], [address] [place] [id number] 0 Phone: () - 03/01 CMP BUN mg/dL 9.0 23.0 9.0 FINAL Nicole muñoz [facility], [address] [facility] 100 [facility] [id number] 0 Phone: () - 03/01 CMP Calci um mg/dL 8.7 10.4 8.5 Low FINAL [facility] 310 [address] [facility] [address] [facility] [id number] 0 Phone: () - 03/01 CMP Chlor rakan mmol/L 96.0 114.0 113 FINAL Nicole Terrazas [place] [address] [address] [facility] 100 [facility] [id number] 0 Phone: () - 03/01 CMP CO2 [...] 96 hour stability window. FINAL Nicole muñoz [facility], [facility] N [address] [id number] 0 Phone: () - 03/01 CMP Creat inine mg/dL 0.5 1.2 0.98 FINAL Nicole muñoz [place] [address] [id number] 0 Phone: () - 03/01 CMP GFR estim ate ml/min /1.73m ^2 62.4 GFR is calculate d using the CKD-EPI equation. FINAL Nicole muñoz [facility], [address] [facility] [address] [facility] [id number] 0 Phone: () - 03/01 CMP Gluco se mg/dL 73.0 126.0 136 High FINAL Nicole muñoz [facility], [address] [facility] 100 [facility] [id number] 0 Phone: () - 03/01 CMP Potas sium mmol/L 3.5 5.1 4.3 FINAL Nicole muñoz [facility], [address] [place] [id number] 0 Phone: () - 03/01 CMP Sodiu m mmol/L 136.0 145.0 147 High FINAL Nicole muñoz [facility], [address] [place] [id number] 0 Phone: () - 03/01 CMP Bilir ubin, total mg/dL 0.3 1.2 0.5 FINAL Nicole muñoz [facility], [address] [facility] [id number] 0 Phone: () - 03/01 CMP Total prote in g/dL 5.7 8.2 5.2 Low FINAL Nicole muñoz [facility], [address] [place] [id number] 0 Phone: () - 03/01 CBC w/ auto diff WBC K/uL 3.0 8.9 4.5 FINAL Nicole muñoz [facility] - [place], [address] [facility] [address] [place] [id number] 0 Phone: () - 03/01 CBC w/ auto diff HGB g/dL 11.3 15.2 8.8 Low FINAL Nicole muñoz [facility] - [place], [address] [facility] [address] [place] [id number] 0 Phone: () - 03/01 CBC w/ auto diff PLT K/uL 113.0 364.0 154 FINAL Nicole muoñz [facility] - [place], [address] [place] [id number] 0 Phone: () - 03/01 CBC w/ auto diff Augustus # (ANC) K/uL 1.6 6.6 2.2 FINAL Nicole muñoz [facility] - [place], [address] [place] [id number] 0 Phone: () - 03/01 CBC w/ auto diff Augustus % % 43.0 74.0 49.9 FINAL Nicoledarius muñoz [facility] - [place], [address] [place] [id number] 0 Phone: () - 03/01 CBC w/ auto diff IG % % 0.0 0.5 0.7 High FINAL Nicole Ya Nini a [facility] - [place], [address] [place] [id number] 0 Phone: () - 03/01 CBC w/ auto diff IG # K/uL 0.0 0.03 0.03 FINAL Nicole Ya Nini a [facility] - [place], [address] [place] [id number] 0 Phone: () - 03/01 CBC w/ auto diff LY % % 14.0 41.0 32.0 FINAL Nicole Ya Mathewdamaris toni [facility] - [place], [address] [place] [id number] 0 Phone: () - 03/01 CBC w/ auto diff MO % % 6.0 15.0 14.5 FINAL Nicole Ya Mathewdamaris toni [facility] - [place], [address] [address] [place] [id number] 0 Phone: () - 03/01 CBC w/ auto diff EO % % 0.0 7.0 2.5 FINAL Nicole Felton Mathewdamaris muñoz [facility] - [place], [address] [place] [id number] 0 Phone: () - 03/01 CBC w/ auto diff BA % % 0.0 2.0 0.4 FINAL Nicole Ya Mathewdamaris muñoz [facility] - [place], [address] [place] [id number] 0 Phone: () - 03/01 CBC w/ auto diff LY # K/uL 0.4 3.6 1.4 FINAL Nicole Felton Mathewdamaris muñoz [facility] - [place], [address] [place] [id number] 0 Phone: () - 03/01 CBC w/ auto diff MO # K/uL 0.2 1.3 0.7 FINAL Nicole Ya Mathewdamaris muñoz [facility] - [place], [address] [place] [id number] 0 Phone: () - 03/01 CBC w/ auto diff EO # K/uL 0.0 0.6 0.1 FINAL Nicole Ya Mathewot a [facility] - [place], [address] [place] [id number] 0 Phone: () - 03/01 CBC w/ auto diff BA # K/uL 0.0 0.2 0.0 FINAL Nicole Ya Mathewot a [facility] - [place], [address] [place] [id number] 0 Phone: () - 03/01 CBC w/ auto diff NRBC % #/100W BC 0.0 0.2 0.0 FINAL Nicole Felton Mathewot a [facility] - [place], [address] [place] [id number] 0 Phone: () - 03/01 CBC w/ auto diff RBC M/uL 3.9 5.1 2.57 Low FINAL Nicole Ya Nini muñoz [facility] - [place], [address] [place] [id number] 0 Phone: () - 03/01 CBC w/ auto diff HCT % 35.0 48.0 28.5 Low FINAL Nicole Felton Nini a [facility] - [place], [address] [place] [id number] 0 Phone: () - 03/01 CBC w/ auto diff MCV fL 80.0 104.0 110.9 High FINAL Nicole Ya Nini muñoz [facility] - [place], [address] [place] [id number] 0 Phone: () - 03/01 CBC w/ auto diff MCH pg 26.0 35.0 34.2 FINAL Nicole Felton Mathewot a [facility] - [place], [address] [place] [id number] 0 Phone: () - 03/01 CBC w/ auto diff MCHC g/dL 30.0 35.0 30.9 FINAL Nicole muñoz [facility] - [place], [address] [place] [id number] 0 Phone: () - 03/01 CBC w/ auto diff MPV fL 9.5 13.4 8.2 Low FINAL Nicole muñoz [facility] - [place], [address] [place] [id number] 0 Phone: () - 03/01 CBC w/ auto diff RDW % 11.4 16.1 15.70 FINAL Nicole muñoz [facility] - [place], [address] [place] [id number] 0 Phone: () - 04/12 CMP Album in g/dL 3.2 5.2 3.8 FINAL Nicole muñoz [facility], [address] [place] [address] [id number] 0 Phone: () - 04/12 CMP Alkal ine phosp hatas e U/L 46.0 116.0 90 FINAL Nicole muñoz [facility], [address] [place] [id number] 0 Phone: () - 04/12 CMP ALT/S GPT U/L 7.0 40.0 17 FINAL Nicole muñoz [facility], [address] [place] [id number] 0 Phone: () - 04/12 CMP AST/S GOT U/L 13.0 40.0 18 FINAL Nicole muñoz [facility], [address] [place] [id number] 0 Phone: () - 04/12 CMP BUN mg/dL 9.0 23.0 14.0 FINAL Nicole muñoz [facility], [address] [place] [id number] 0 Phone: () - 04/12 CMP Calci um mg/dL 8.7 10.4 9.1 FINAL Nicole muñoz [facility], [address] [place] [id number] 0 Phone: () - 04/12 CMP Chlor rakan mmol/L 96.0 114.0 110 [facility]AL [facility] [address] [id number] 0 Phone: () - 04/12 CMP CO2 [...] the 96 hour stability window. FINAL [place] [address] [id number] 0 Phone: () - 04/12 CMP Creat inine mg/dL 0.5 1.2 0.86 FINAL [place] [address] [id number] 0 Phone: () - 04/12 CMP GFR estim ate ml/min /1.73m ^2 73.0 GFR is calculate d using the CKD-EPI equation. FINAL Nicole Terrazas [place] [address] [id number] 0 Phone: () - 04/12 CMP Gluco se mg/dL 73.0 126.0 85 [facility]AL [facility] [address] [id number] 0 Phone: () - 04/12 CMP Potas sium mmol/L 3.5 5.1 3.8 FINAL Nicole Terrazas [facility] [address] [facility] [address] [id number] 0 Phone: () - 04/12 CMP Sodiu m mmol/L 136.0 145.0 146 High [facility]AL [facility] [address] [facility] [address] [id number] 0 Phone: () - 04/12 CMP Bilir ubin, total mg/dL 0.3 1.2 0.3 FINAL Nicole Terrazas [facility] [address] [facility] [address] [place] [id number] 0 Phone: () - 04/12 CMP Total prote in g/dL 5.7 8.2 5.6 Low FINAL Nicole Felton Mathewdamaris a [facility] - [place], [address] [place] [id number] 0 Phone: () - 04/12 CBC w/ auto diff WBC K/uL 3.0 8.9 5.3 FINAL Nicole Ya Mathewdamaris muñoz [facility] - [place], [address] [facility] [address] [place] [id number] 0 Phone: () - 04/12 CBC w/ auto diff HGB g/dL 11.3 15.2 9.4 Low FINAL Nicole muñoz [facility] - [place], [address] [facility] [address] [place] [id number] 0 Phone: () - 04/12 CBC w/ auto diff PLT K/uL 113.0 364.0 167 FINAL Nicole muñoz [facility] - [place], [address] [facility] [address] [place] [id number] 0 Phone: () - 04/12 CBC w/ auto diff Augustus # (ANC) K/uL 1.6 6.6 3.0 FINAL Nicole muñoz [facility] - [place], [address] [facility] [address] [place] [id number] 0 Phone: () - 04/12 CBC w/ auto diff Augustus % % 43.0 74.0 57.5 FINAL Nicole muñoz [facility] - [place], [address] [place] [id number] 0 Phone: () - 04/12 CBC w/ auto diff IG % % 0.0 0.5 0.4 FINAL Nicole Ya Mathewdamaris muñoz [facility] - [place], [address] [place] [id number] 0 Phone: () - 04/12 CBC w/ auto diff IG # K/uL 0.0 0.03 0.02 FINAL Nicole muñoz [facility] - [place], [address] [place] [id number] 0 Phone: () - 04/12 CBC w/ auto diff LY % % 14.0 41.0 28.6 FINAL Nicole Ya Nini a [facility] - [place], [address] [place] [id number] 0 Phone: () - 04/12 CBC w/ auto diff MO % % 6.0 15.0 11.6 FINAL Nicole Felton Mathewot a [facility] - [place], [address] [place] [id number] 0 Phone: () - 04/12 CBC w/ auto diff EO % % 0.0 7.0 1.5 FINAL Nicole Felton Nini a [facility] - [place], [address] [place] [id number] 0 Phone: () - 04/12 CBC w/ auto diff BA % % 0.0 2.0 0.4 FINAL Nicole Felton Mathewdamaris a Oncology - [place], [address] [place] [id number] 0 Phone: () - 04/12 CBC w/ auto diff LY # K/uL 0.4 3.6 1.5 FINAL Nicole Felton Nini a [facility] - [place], [address] [place] [id number] 0 Phone: () - 04/12 CBC w/ auto diff MO # K/uL 0.2 1.3 0.6 FINAL Nicole Ya Mathewdamaris a Oncology - [place], [address] [place] [id number] 0 Phone: () - 04/12 CBC w/ auto diff EO # K/uL 0.0 0.6 0.1 FINAL Nicole Felton Mathewot a [facility] - [place], [address] [place] [id number] 0 Phone: () - 04/12 CBC w/ auto diff BA # K/uL 0.0 0.2 0.0 FINAL Nicole Carmonaot a Oncology - [place], [address] [place] [id number] 0 Phone: () - 04/12 CBC w/ auto diff NRBC % #/100W BC 0.0 0.2 0.0 FINAL Nicole Carmonaot a [facility] - [place], [address] [place] [id number] 0 Phone: () - 04/12 CBC w/ auto diff RBC M/uL 3.9 5.1 2.94 Low FINAL Nicole Terrazas a [facility] - [place], [address] [place] [id number] 0 Phone: () - 04/12 CBC w/ auto diff HCT % 35.0 48.0 29.6 Low FINAL Nicole Terrazas a [facility] - [place], [address] [place] [id number] 0 Phone: () - 04/12 CBC w/ auto diff MCV fL 80.0 104.0 100.7 FINAL Nicole muñoz [facility] - [place], [address] [place] [id number] 0 Phone: () - 04/12 CBC w/ auto diff MCH pg 26.0 35.0 32.0 FINAL Nicole Terrazas a Oncology - [place], [address] [place] [id number] 0 Phone: () - 04/12 CBC w/ auto diff MCHC g/dL 30.0 35.0 31.8 FINAL Nicole [facility] - [place], [address] [place] [id number] 0 Phone: () - 04/12 CBC w/ auto diff MPV fL 9.5 13.4 9.5 FINAL Nicole [facility] - [place], [address] [place] [phone] 0 Phone: () - 04/12 CBC w/ auto diff RDW % 11.4 16.1 12.30 FINAL Nicole Ya [facility] [place], [address] [place] [phone] 0 Phone: () - 04/12 PRIOR RESUL T Not Given FINAL Nicole NEGRETE, [facility] [address] [place] [id number] 4 04/12 SOURC E: Periphe ral Blood FINAL Nicole NEGRETE, [facility] [address] [place] [id number] 4 04/12 BCR ABL1/ ABL1 % % 0.000 FINAL Nicole NEGRETE, [facility] [address] [place] [id number] 4 04/12 BCR ABL1/ ABL1 % (IS) % 0.000 FINAL Nicole NEGRETE, [facility] [address] [place] [id number] 4 04/12 INTER PRETA TION see note [...] l informati on, please refer tohttp:// education .Newsblur/faq/F AQ72(This link is being provided forinform ational/e ducationa l purposes only.)Ass ay sensitivi ty is at least 4.5-logs below baselineB CR-ABL1 transcrip t levels but is dependent onquantit y and quality of RNA used for testing and thecellul arity of the sample.Th is test was developed and its analytica lperforma nce character istics have been determine dby [facility] [place], [place].It has not been cleared or approved by the FDA. Thisassay has been validated pursuant to the CLIAregul ations and is used for clinical purposes. Alejandro Ya, Ph.D, HCLD (ABB)Chucky ntific Director, Molecular Oncology FINAL Nicole Ya Rixty, [facility] [address] [place] [id number] 4 04/12 P190 BCR ABL1 Not Detecte d FINAL Nicole Felton Rixty, [facility] [address] [place] [id number] 4 04/12 P210 BCR ABL1 Not Detecte d FINAL Nicole Felton PENELOPE, [facility] [address] [place] [id number] 4 06/04 CBC w/ auto diff WBC K/uL 3.0 8.9 6.2 FINAL Nicole Ya [facility] [place], [address] [place] [phone] 0 Phone: () - 06/04 CBC w/ auto diff HGB g/dL 11.3 15.2 12.8 FINAL Nicole Ya [facility] [place], [address] [place] [phone] 0 Phone: () - 06/04 CBC w/ auto diff PLT K/uL 113.0 364.0 177 FINAL Nicole Felton [facility] [place], [address] [place] [phone] 0 Phone: () - 06/04 CBC w/ auto diff Augustus # (ANC) K/uL 1.6 6.6 4.0 FINAL Nicole Ya [facility] [place], [address] [place] [id number] 0 Phone: () - 06/04 CBC w/ auto diff Augustus % % 43.0 74.0 63.9 FINAL Nicole [facility] - [place], [address] [place] [id number] 0 Phone: () - 06/04 CBC w/ auto diff IG % % 0.0 0.5 0.2 FINAL Nicole [facility] - [place], [address] [place] [phone] 0 Phone: () - 06/04 CBC w/ auto diff IG # K/uL 0.0 0.03 0.01 FINAL Nicole [facility] - [place], [address] [place] [id number] 0 Phone: () - 06/04 CBC w/ auto diff LY % % 14.0 41.0 27.5 FINAL Nicole [facility] - [place], [address] [place] [id number] 0 Phone: () - 06/04 CBC w/ auto diff MO % % 6.0 15.0 7.9 FINAL Nicole [facility] - [place], [address] [place] [phone] 0 Phone: () - 06/04 CBC w/ auto diff EO % % 0.0 7.0 0.2 FINAL Nicole [facility] - [place], [address] [place] [id number] 0 Phone: () - 06/04 CBC w/ auto diff BA % % 0.0 2.0 0.3 FINAL Nicole [facility] - [place], [address] [place] [phone] 0 Phone: () - 06/04 CBC w/ auto diff LY # K/uL 0.4 3.6 1.7 FINAL Nicole [facility] - [place], [address] [place] [phone] 0 Phone: () - 06/04 CBC w/ auto diff MO # K/uL 0.2 1.3 0.5 FINAL Nicole Ya [facility] - [place], [address] [place] [id number] 0 Phone: () - 06/04 CBC w/ auto diff EO # K/uL 0.0 0.6 0.0 FINAL Nicole Ya [facility] - [place], [address] [place] [id number] 0 Phone: () - 06/04 CBC w/ auto diff BA # K/uL 0.0 0.2 0.0 FINAL Niocle Felton [facility] - [place], [address] [place] [id number] 0 Phone: () - 06/04 CBC w/ auto diff NRBC % #/100W BC 0.0 0.2 0.0 FINAL Nicole Felton [facility] tno[facility] - [place], [address] [place] [id number] 0 Phone: () - 06/04 CBC w/ auto diff RBC M/uL 3.9 5.1 4.27 FINAL Nicole Ya [facility] - [place], [address] [place] [id number] 0 Phone: () - 06/04 CBC w/ auto diff HCT % 35.0 48.0 39.5 FINAL Nicole Felton [facility] - [place], [address] [place] [phone] 0 Phone: () - 06/04 CBC w/ auto diff MCV fL 80.0 104.0 92.5 FINAL Nicole Ya Mathewdamaris muñoz [facility] - [place], [address] [place] [phone] 0 Phone: () - 06/04 CBC w/ auto diff MCH pg 26.0 35.0 30.0 FINAL Nicole Ya [facility] - [place], [address] [place] [phone] 0 Phone: () - 06/04 CBC w/ auto diff MCHC g/dL 30.0 35.0 32.4 FINAL Nicole Felton Nini muñoz [facility] - [place], [address] [place] [id number] 0 Phone: () - 06/04 CBC w/ auto diff MPV fL 9.5 13.4 9.3 Low FINAL Nicole Felton Nini [facility] - [place], [address] [place] [id number] 0 Phone: () - 06/04 CBC w/ auto diff RDW % 11.4 16.1 12.70 FINAL Nicole Felton Nini [facility] - [place], [address] [place] [phone] 0 Phone: () - 06/04 iSTAT K+ panel Potas sium, iSTAT mmol/L 3.5 4.9 3.8 Reference range adjusted 0 with implement ation of I-Stat 8+ cartridge . FINAL Nicole Ya Nini mu[facility] - [place], [address] [place] [phone] 0 Phone: () - 07/05 CMP Album in g/dL 3.2 5.2 4.4 FINAL Nicole Ya Dania [facility], [address] [place] [phone] 0 Phone: () - 07/05 CMP Alkal ine phosp hatas e U/L 46.0 116.0 107 FINAL Nicole Ya * [facility], [address] [place] [id number] 0 Phone: () - 07/05 CMP ALT/S GPT U/L 7.0 40.0 26 FINAL Nicole Ya * [facility], [address] [place] [id number] 0 Phone: () - 07/05 CMP AST/S GOT U/L 13.0 40.0 23 FINAL Nicole Ya * [facility], [address] [facility] 100 [facility] [id number] 0 Phone: () - 07/05 CMP BUN mg/dL 9.0 23.0 15.0 FINAL Nicoledarius Ya * [place] [address] [facility] [address] [facility] [phone] 0 Phone: () - 07/05 CMP Calci um mg/dL 8.7 10.4 10.4 FINAL Nicole Ya * [place] [address] [id number] 0 Phone: () - 07/05 CMP Chlor rakan mmol/L 96.0 114.0 109 FINAL Nicoledarius Najera [place] [address] [phone] 0 Phone: () - 07/05 CMP CO2 [...] hour stability window. FINAL Nicole Ya [place] [address] [id number] 0 Phone: () - 07/05 CMP Creat inine mg/dL 0.5 1.2 1.06 FINAL Nicole Ya [place] [address] [phone] 0 Phone: () - 07/05 CMP GFR estim ate ml/min /1.73m ^2 56.7 Low GFR is calculate d using the CKD-EPI equation. FINAL Nicole Najera [place] [address] [phone] 0 Phone: () - 07/05 CMP Gluco se mg/dL 73.0 126.0 97 FINAL Nicole Ya * [facility], [address] [facility] [address] [facility] [phone] 0 Phone: () - 07/05 CMP Potas sium mmol/L 3.5 5.1 4.4 FINAL Nicole Ya * [facility] [place], [address] [place] [id number] 0 Phone: () - 07/05 CMP Sodiu m mmol/L 136.0 145.0 143 FINAL Nicole [facility] [place], [address] [place] [phone] 0 Phone: () - 07/05 CMP Bilir ubin, total mg/dL 0.3 1.2 0.5 FINAL Nicole Ya * [facility] [place], [address] [place] [id number] 0 Phone: () - 07/05 CMP Total prote in g/dL 5.7 8.2 6.4 FINAL Nicole [facility] [place], [address] [place] [id number] 0 Phone: () - 07/05 CBC w/ auto diff WBC K/uL 3.0 8.9 3.3 FINAL Nicole Ya Nini mu[facility]oz [facility] - [place], [address] [facility] [place] [phone] 0 Phone: () - 07/05 CBC w/ auto diff HGB g/dL 11.3 15.2 11.9 FINAL Nicole Ya Nini a [facility] - [place], [address] [place] [id number] 0 Phone: () - 07/05 CBC w/ auto diff PLT K/uL 113.0 364.0 163 FINAL Nicole [facility] - [place], [address] [place] [phone] 0 Phone: () - 07/05 CBC w/ auto diff Augustus # (ANC) K/uL 1.6 6.6 2.0 FINAL Nicole [facility] - [place], [address] [place] [id number] 0 Phone: () - 07/05 CBC w/ auto diff Augustus % % 43.0 74.0 58.6 FINAL Nicole [facility] - [place], [address] [place] [id number] 0 Phone: () - 07/05 CBC w/ auto diff IG % % 0.0 0.5 0.3 FINAL Nicole [facility] - [place], [address] [place] [id number] 0 Phone: () - 07/05 CBC w/ auto diff IG # K/uL 0.0 0.03 0.01 FINAL Nicole [facility] - [place], [address] [place] [id number] 0 Phone: () - 07/05 CBC w/ auto diff LY % % 14.0 41.0 24.3 FINAL Nicole [facility] - [place], [address] [place] [id number] 0 Phone: () - 07/05 CBC w/ auto diff MO % % 6.0 15.0 16.2 High FINAL Nicole muñoz On[facility] - [place], [address] [place] [phone] 0 Phone: () - 07/05 CBC w/ auto diff EO % % 0.0 7.0 0.3 FINAL Nicole muñoz On[facility] - [place], [address] [place] [phone] 0 Phone: () - 07/05 CBC w/ auto diff BA % % 0.0 2.0 0.3 FINAL Nicole [facility] - [place], [address] [place] [id number] 0 Phone: () - 07/05 CBC w/ auto diff LY # K/uL 0.4 3.6 0.8 FINAL Nicole [facility] - [place], [address] [place] [id number] 0 Phone: () - 07/05 CBC w/ auto diff MO # K/uL 0.2 1.3 0.5 FINAL Nicole [facility] - [place], [address] [place] [id number] 0 Phone: () - 07/05 CBC w/ auto diff EO # K/uL 0.0 0.6 0.0 FINAL Nicole [facility] - [place], [address] [place] [id number] 0 Phone: () - 07/05 CBC w/ auto diff BA # K/uL 0.0 0.2 0.0 FINAL Nicole [facility] - [place], [address] [place] [id number] 0 Phone: () - 07/05 CBC w/ auto diff NRBC % #/100W BC 0.0 0.2 0.0 FINAL Nicole [facility] - [place], [address] [place] [id number] 0 Phone: () - 07/05 CBC w/ auto diff RBC M/uL 3.9 5.1 3.95 FINAL Nicole muñoz [facility] - [place], [address] [place] [phone] 0 Phone: () - 07/05 CBC w/ auto diff HCT % 35.0 48.0 36.7 FINAL Nicole muñoz Oncology - [place], [address] [place] [phone] 0 Phone: () - 07/05 CBC w/ auto diff MCV fL 80.0 104.0 92.9 FINAL Nicole [facility] - [place], [address] [place] [id number] 0 Phone: () - 07/05 CBC w/ auto diff MCH pg 26.0 35.0 30.1 FINAL Nicole [facility] - [place], [address] [place] [phone] 0 Phone: () - 07/05 CBC w/ auto diff MCHC g/dL 30.0 35.0 32.4 FINAL Nicole [facility] - [place], [address] [place] [id number] 0 Phone: () - 07/05 CBC w/ auto diff MPV fL 9.5 13.4 8.8 Low FINAL Nicole [facility] - [place], [address] [place] [id number] 0 Phone: () - 07/05 CBC w/ auto diff RDW % 11.4 16.1 14.10 FINAL Nicole [facility] - [place], [address] [place] [phone] 0 Phone: () - 12/02 PRIOR RESUL T See Report FINAL Nicole Ya Rixty, [facility] [address] [place] [id number] 4 12/02 SOUR E: Periphe ral Blood FINAL Nicole Ya Rixty, [facility] [address] [place] [id number] 4 12/02 BCR ABL1/ ABL1 % % 0.000 FINAL Nicole Ya Rixty, [facility] [address] [place] [id number] 4 12/02 BCR ABL1/ ABL1 % (IS) % 0.000 FINAL Nicole Ya Rixty, [facility] [address] [place] [id number] 4 12/02 INTER PRETA TION see note [...] additiona l informati on, please refer tohttp:// Thumbplay .Newsblur/faq/F AQ72(This link is being provided forinform ational/e ducationa l purposes only.)Ass ay sensitivi ty is at least 4.5-logs below baselineB CR-ABL1 transcrip t levels but is dependent onquantit y and quality of RNA used for testing and thecellul arity of the sample.Th is test was developed and its analytica lperforma nce character istics have been determine dby [facility] , [place], [place].It has not been cleared or approved by the FDA. Thisassay has been validated pursuant to the CLIAregul ations and is used for clinical purposes. Alejandro Ya, Ph.D, HCLD (ABB)Scie ntific Director, Molecular Oncology FINAL Nicole Ya Rixty, [facility] [address] [place] [id number] 4 12/02 P190 BCR ABL1 Not Detecte d FINAL [employer], [facility] [address] [place] [id number] 4 12/02 P210 BCR ABL1 Not Detecte d FINAL Nicole Station X, [facility] [address] [place] [id number] 4 12/02 CMP Album in g/dL 3.5 5.0 4.3 FINAL Nicole Ya * [facility] [place], [address] [facility] [id number] 0 12/02 CMP Alkal ine phosp hatas e U/L 36.0 125.0 126 High FINAL Nicole Ya * [facility] [place], [address] [facility] [id number] 0 12/02 CMP ALT/S GPT U/L 0.0 34.0 29 FINAL Nicole Ya * [facility], [address] [id number] 0 12/02 CMP AST/S GOT U/L 14.0 36.0 39 High FINAL Nicole Ya * [facility], [address] [id number] 0 12/02 CMP BUN mg/dL 7.0 17.0 14.0 FINAL Nicole Ya * [facility], [facility]0 [facility] [address] [place] [id number] 0 12/02 CMP Calci um mg/dL 8.4 10.2 9.1 FINAL Nicole Ya * [facility], [facility] [address] [id number] 0 12/02 CMP Chlor rakan mmol/L 96.0 107.0 108 High FINAL Nicole Ya * [facility], [address] [place] [address] [place] [phone] 0 12/02 CMP CO2 mmol/L 22.0 30.0 [...] hour stability window. FINAL Nicole Ya * [facility], [facility] [address] [id number] 0 12/02 CMP Creat inine mg/dL 0.66 1.25 1.30 High FINAL Nicole Ya * [facility], [address] [facility] [id number] 0 12/02 CMP GFR estim ate ml/min /1.73m ^2 44.3 Low GFR is calculate d using the CKD-EPI equation. FINAL Nicole Najera [facility], [address] [facility] [id number] 0 12/02 CMP Gluco se mg/dL 74.0 100.0 126 High FINAL Nicole Ya * [facility], [address] [facility] [id number] 0 12/02 CMP Potas sium mmol/L 3.5 5.1 3.9 FINAL Nicole Ya * [facility], [address] [facility] [id number] 0 12/02 CMP Sodiu m mmol/L 137.0 145.0 140 FINAL Nicole Najera [facility], [address] [facility] [id number] 0 12/02 CMP Bilir ubin, total mg/dL 0.2 1.3 0.7 FINAL Nicole Najera [facility], [address] [facility] [id number] 0 12/02 CMP Total prote in g/dL 6.3 8.2 6.5 FINAL Nicole Ya * [facility], [address] [facility] [id number] 0 12/02 CBC w/ auto diff WBC K/uL 3.0 8.9 4.0 FINAL Nicole Ya [facility] [place], [address] [place] [phone] 0 Phone: ( - 12/02 CBC w/ auto diff HGB g/dL 11.3 15.2 12.8 FINAL Nicole [facility] [place], [address] [place] [id number] 0 Phone: () - 12/02 CBC w/ auto diff PLT K/uL 113.0 364.0 175 FINAL Nicole [facility] - [place], [address] [place] [id number] 0 Phone: () - 12/02 CBC w/ auto diff Augustus # (ANC) K/uL 1.6 6.6 2.5 FINAL Nicole [facility] - [place], [address] [place] [id number] 0 Phone: () - 12/02 CBC w/ auto diff Augustus % % 43.0 74.0 63.2 FINAL Nicole [facility] - [place], [address] [place] [id number] 0 Phone: () - 12/02 CBC w/ auto diff IG % % 0.0 0.5 0.3 FINAL Nicole [facility] - [place], [address] [place] [id number] 0 Phone: () - 12/02 CBC w/ auto diff IG # K/uL 0.0 0.03 0.01 FINAL Nicole [facility] - [place], [address] [place] [id number] 0 Phone: () - 12/02 CBC w/ auto diff LY % % 14.0 41.0 25.7 FINAL Nicole [facility] - [place], [address] [place] [id number] 0 Phone: () - 12/02 CBC w/ auto diff MO % % 6.0 15.0 10.8 FINAL Nicole [facility] - [place], [address] [place] [id number] 0 Phone: () - 12/02 CBC w/ auto diff EO % % 0.0 7.0 0.0 FINAL Nicole [facility] - [place], [address] [place] [id number] 0 Phone: () - 12/02 CBC w/ auto diff BA % % 0.0 2.0 0.0 FINAL Nicole muñoz [facility] - [place], [address] [place] [id number] 0 Phone: () - 12/02 CBC w/ auto diff LY # K/uL 0.4 3.6 1.0 FINAL Nicole Ya Nini mu[facility]oz [facility] - [place], [address] [place] [id number] 0 Phone: () - 12/02 CBC w/ auto diff MO # K/uL 0.2 1.3 0.4 FINAL Nicole Felton Nini [facility] - [place], [address] [place] [id number] 0 Phone: () - 12/02 CBC w/ auto diff EO # K/uL 0.0 0.6 0.0 FINAL Nicole Felton Nini [facility] - [place], [address] [place] [id number] 0 Phone: () - 12/02 CBC w/ auto diff BA # K/uL 0.0 0.2 0.0 FINAL Nicole Ya Nini [facility] - [place], [address] [place] [id number] 0 Phone: () - 12/02 CBC w/ auto diff NRBC % #/100W BC 0.0 0.2 0.0 FINAL Nicole Ya Nini [facility] - [place], [address] [place] [id number] 0 Phone: () - 12/02 CBC w/ auto diff RBC M/uL 3.9 5.1 3.98 FINAL Nicole Ya Nini [facility] - [place], [address] [place] [id number] 0 Phone: () - 12/02 CBC w/ auto diff HCT % 35.0 48.0 38.6 FINAL Nicole Ya N[facility] a [facility] - [place], [address] [place] [id number] 0 Phone: () - 12/02 CBC w/ auto diff MCV fL 80.0 104.0 97.0 FINAL Nicole Ya N[facility] a [facility] - [place], [address] [place] [phone] 0 Phone: () - 12/02 CBC w/ auto diff MCH pg 26.0 35.0 32.2 FINAL Nicole Ya Nini [facility] - [place], [address] [place] [id number] 0 Phone: () - 12/02 CBC w/ auto diff MCHC g/dL 30.0 35.0 33.2 FINAL Nicole Terrazas [facility] - [place], [address] [place] [id number] 0 Phone: () - 12/02 CBC w/ auto diff MPV fL 9.5 13.4 9.1 Low FINAL Nicole Ya Nini mu[facility] - [place], [address] [place] [id number] 0 Phone: () - 12/02 CBC w/ auto diff RDW % 11.4 16.1 12.70 FINAL Nicole Terrazas [facility] - [place], [address] [place] [id number] 0 Phone: () - 03/30 [facility] other lab See coil winder d 05/21 Misc other lab See coil winder d 06/15 CMP Album in g/dL 3.5 5.0 4.6 FINAL Nicole Ya * [place] [facility] [place] [facility] , [address] [facility] [place] [id number] 0 06/15 CMP Alkal ine phosp hatas e U/L 36.0 125.0 92 FINAL Nicoledarius Ya * [facility] , [address] [facility] [id number] 0 06/15 CMP ALT/S GPT U/L 0.0 34.0 44 High FINAL Nicole Ya * [facility] , [address] [facility] [id number] 0 06/15 CMP AST/S GOT U/L 14.0 36.0 43 High FINAL Nicole Felton * [facility] , [address] [facility] [id number] 0 06/15 CMP BUN mg/dL 7.0 17.0 17.0 FINAL Nicole Ya * [facility] , [address] [facility] [id number] 0 06/15 CMP Calci um mg/dL 8.4 10.2 9.6 FINAL Nicole Felton * [facility] , [address] [facility] [id number] 0 06/15 CMP Chlor rakan mmol/L 96.0 107.0 106 FINAL Nicoledarius Ya * [facility] , [address] [facility] [id number] 0 06/15 CMP CO2 mmol/L 22.0 30.0 [...] hour stability window. FINAL Nicole Ya * [facility] , [address] [facility] [id number] 0 06/15 CMP Creat inine mg/dL 0.66 1.25 1.30 High FINAL Nicole Ya * [facility] , [address] [facility] [id number] 0 06/15 CMP GFR estim ate ml/min /1.73m ^2 44.1 Low GFR is calculate d using the CKD-EPI equation. FINAL Nicole Ya * [facility] , [address] [facility] [id number] 0 06/15 CMP Gluco se mg/dL 74.0 100.0 94 FINAL Nicole Ya * [facility] , [address] [facility] [id number] 0 06/15 CMP Potas sium mmol/L 3.5 5.1 4.1 FINAL Nicole Ya * [facility] , [address] [facility] [id number] 06/15 CMP Sodiu m mmol/L 137.0 145.0 140 FINAL Nicole Ya * [facility] , [address] [facility] [id number] 0 06/15 CMP Bilir ubin, total mg/dL 0.2 1.3 0.9 FINAL Nicole Ya * [facility] , [address] [facility] [id number] 0 06/15 CMP Total prote in g/dL 6.3 8.2 6.7 FINAL Nicole Ya * [facility] , [address] [id number] 0 06/15 CBC w/ auto diff WBC K/uL 3.0 8.9 4.7 FINAL Nicole Ya [facility] , [address] [place] [id number] 0 06/15 CBC w/ auto diff HGB g/dL 11.3 15.2 13.6 FINAL Nicole Ya [place] [facility] , [address] [place] [id number] 0 06/15 CBC w/ auto diff PLT K/uL 113.0 364.0 151 FINAL Nicole Ya [place] [facility] , [address] [place] [id number] 0 06/15 CBC w/ auto diff Augustus # (ANC) K/uL 1.6 6.6 2.9 FINAL Nicole Ya [place] [facility] , [address] [place] [id number] 0 06/15 CBC w/ auto diff Augustus % % 43.0 74.0 61.4 FINAL Nicole Ya [place] [facility] , [address] [place] [id number] 0 06/15 CBC w/ auto diff IG % % 0.0 0.5 0.2 FINAL Nicole Ya [place] [facility] , [address] [place] [id number] 0 06/15 CBC w/ auto diff IG # K/uL 0.0 0.03 0.01 FINAL Nicole Ya [place] [facility] , [address] [place] [id number] 0 06/15 CBC w/ auto diff LY % % 14.0 41.0 28.3 FINAL Nicole Ya [place] [facility] , [address] [place] [id number] 0 06/15 CBC w/ auto diff MO % % 6.0 15.0 10.1 FINAL Nicole Ya [place] [facility] , [address] [place] [id number] 0 06/15 CBC w/ auto diff EO % % 0.0 7.0 0.0 FINAL Nicole Ya [place] [facility] , [address] [place] [id number] 0 06/15 CBC w/ auto diff BA % % 0.0 2.0 0.0 FINAL Nicole Ya [place] [facility] , [address] [place] [id number] 0 06/15 CBC w/ auto diff LY # K/uL 0.4 3.6 1.3 FINAL Nicole Ya [place] [facility] , [address] [place] [id number] 0 06/15 CBC w/ auto diff MO # K/uL 0.2 1.3 0.5 FINAL Nicole Ya [place] [facility] , [address] [place] [id number] 0 06/15 CBC w/ auto diff EO # K/uL 0.0 0.6 0.0 FINAL Nicole Ya [place] [facility] , [address] [place] [id number] 0 06/15 CBC w/ auto diff BA # K/uL 0.0 0.2 0.0 FINAL Nicole Ya [place] [facility] , [address] [place] [id number] 0 06/15 CBC w/ auto diff NRBC % #/100W BC 0.0 0.2 0.0 FINAL Nicole Ya [place] [facility] , [address] [place] [id number] 0 06/15 CBC w/ auto diff RBC M/uL 3.9 5.1 4.32 FINAL Nicole Ya [place] [facility] , [address] [place] [id number] 0 06/15 CBC w/ auto diff HCT % 35.0 48.0 41.6 FINAL Nicole Ya [place] [facility] , [address] [place] [id number] 0 06/15 CBC w/ auto diff MCV fL 80.0 104.0 96.3 FINAL Nicole Ya [place] [facility] , [address] [place] [id number] 0 06/15 CBC w/ auto diff MCH pg 26.0 35.0 31.5 FINAL Nicole Ya [place] [facility] , [address] [place] [id number] 0 06/15 CBC w/ auto diff MCHC g/dL 30.0 35.0 32.7 FINAL Nicole Ya [place] [facility] , [address] [place] [id number] 0 06/15 CBC w/ auto diff MPV fL 9.5 13.4 9.3 Low FINAL Nicole Ya [place] [facility] , [address] [place] [id number] 0 06/15 CBC w/ auto diff RDW % 11.4 16.1 12.00 FINAL Nicole Ya [place] [facility] , [address] [place] [id number] 0 06/15 PRIOR RESUL T See Report FINAL Nicole NEGRETE, [facility] [address] [place] [id number] 4 06/15 SOURC E: Periphe ral Blood FINAL Nicole NEGRETE, [facility] [address] [place] [id number] 4 06/15 BCR ABL1/ ABL1 % % 0.000 FINAL Nicole NEGRETE, [facility] [address] [place] [id number] 4 06/15 BCR ABL1/ ABL1 % (IS) % 0.000 FINAL Nicole NEGRETE, [facility] [address] [place] [id number] 4 06/15 INTER PRETA TION see note [...] l informati on, please refer tohttp:// education .Newsblur/faq/F AQ72(This link is being provided forinform ational/e ducationa l purposes only.)Ass ay sensitivi ty is at least 4.5-logs below baselineB CR-ABL1 transcrip t levels but is dependent onquantit y and quality of RNA used for testing and thecellul arity of the sample.Th is test was developed and its analytica lperforma nce character istics have been determine dby [facility] [place], [place]It has not been cleared or approved by the FDA. Thisassay has been validated pursuant to the CLIAregul ations and is used for clinical purposes. Denver wilson M.D. FINAL Nicole Ya [facility], [facility] [address] [place] [id number] 4 06/15 P190 BCR ABL1 Not Detecte d FINAL Nicole Ya [facility], [facility] [address] [place] [id number] 4 06/15 P210 BCR ABL1 Not Detecte d FINAL Nicole Ya [facility], [facility] [address] [place] [id number] 4 01/06 CBC w/ auto diff WBC K/uL 3.0 8.9 4.5 FINAL Nicole Ya [place] [facility] , [address] [place] [id number] 0 01/06 CBC w/ auto diff HGB g/dL 11.3 15.2 12.8 FINAL Nicoledarius Ya [place] [facility] , [address] [place] [id number] 0 01/06 CBC w/ auto diff PLT K/uL 113.0 364.0 153 FINAL Nicoledarius Ya [place] [facility] , [address] [place] [id number] 0 01/06 CBC w/ auto diff Augustus # (ANC) K/uL 1.6 6.6 2.8 FINAL Nicole Ya [place] [facility] , [address] [place] [id number] 0 01/06 CBC w/ auto diff Augustus % % 43.0 74.0 61.5 FINAL Nicole Ya [place] [facility] , [address] [place] [id number] 0 01/06 CBC w/ auto diff IG % % 0.0 0.5 0.4 FINAL Nicole Ya [place] [facility] , [address] [place] [id number] 0 01/06 CBC w/ auto diff IG # K/uL 0.0 0.03 0.02 FINAL Nicole Ya [facility] [place] [facility] , [address] [place] [id number] 0 01/06 CBC w/ auto diff LY % % 14.0 41.0 25.4 FINAL Nicole Ya [facility] [place] [facility] , [address] [place] [id number] 0 01/06 CBC w/ auto diff MO % % 6.0 15.0 12.7 FINAL Nicole Ya [facility] [place] [facility] , [address] [place] [id number] 0 01/06 CBC w/ auto diff EO % % 0.0 7.0 0.0 FINAL Nicole Ya [facility] [place] [facility] , [address] [place] [id number] 0 01/06 CBC w/ auto diff BA % % 0.0 2.0 0.0 FINAL Nicole Ya [facility] [place] [facility] , [address] [place] [id number] 0 01/06 CBC w/ auto diff LY # K/uL 0.4 3.6 1.1 FINAL Nicole Ya [facility] [place] [facility] , [address] [place] [id number] 0 01/06 CBC w/ auto diff MO # K/uL 0.2 1.3 0.6 FINAL Nicole Ya [place] [facility] , [address] [place] [id number] 0 01/06 CBC w/ auto diff EO # K/uL 0.0 0.6 0.0 FINAL Nicole Ya [place] [facility] , [address] [place] [id number] 0 01/06 CBC w/ auto diff BA # K/uL 0.0 0.2 0.0 FINAL Nicole Ya [place] [facility] , [address] [place] [id number] 0 01/06 CBC w/ auto diff NRBC % #/100W BC 0.0 0.2 0.0 FINAL Nicole Ya [place] [facility] , [address] [place] [id number] 0 01/06 CBC w/ auto diff RBC M/uL 3.9 5.1 3.69 Low FINAL Nicole Ya [place] [facility] , [address] [place] [id number] 0 01/06 CBC w/ auto diff HCT % 35.0 48.0 37.6 FINAL Nicole Ya [place] [facility] , [address] [place] [id number] 0 01/06 CBC w/ auto diff MCV fL 80.0 104.0 101.9 FINAL Nicole Ya [place] [facility] , [address] [place] [id number] 0 01/06 CBC w/ auto diff MCH pg 26.0 35.0 34.7 FINAL Nicole Ya [place] [facility] , [address] [place] [id number] 0 01/06 CBC w/ auto diff MCHC g/dL 30.0 35.0 34.0 FINAL Nicole Ya [place] [facility] , [address] [place] [id number] 0 01/06 CBC w/ auto diff MPV fL 9.5 13.4 9.6 FINAL Nicole Ya [place] [facility] , [address] [place] [id number] 0 01/06 CBC w/ auto diff RDW % 11.4 16.1 13.00 FINAL Nicole Ya [place] [facility] , [address] [place] [id number] 0 01/06 CMP Album in g/dL 3.5 5.0 3.9 FINAL Nicole Ya * [facility] , [address] [facility] [id number] 0 01/06 CMP Alkal ine phosp hatas e U/L 36.0 125.0 79 FINAL Nicole Ya * [facility] [place] [facility] , [address] [facility] [id number] 0 01/06 CMP ALT/S GPT U/L 0.0 34.0 24 FINAL Nicole Ya * [facility] [place] [facility] , [address] [facility] [id number] 0 01/06 CMP AST/S GOT U/L 14.0 36.0 33 FINAL Nicole Ya * [facility] , [address] [facility] [id number] 0 01/06 CMP BUN mg/dL 7.0 17.0 14.0 FINAL Nicole Ya * [facility] , [address] [facility] [id number] 0 01/06 CMP Calci um mg/dL 8.4 10.2 8.9 FINAL Nicole Ya * [facility] , [address] [facility] [id number] 0 01/06 CMP Chlor rakan mmol/L 96.0 107.0 109 High FINAL Nicole Ya * [facility] , [address] [facility] [id number] 0 01/06 CMP CO2 mmol/L 22.0 30.0 [...] hour stability window. FINAL Nicoledarius Ya * [facility] , [address] [facility] [id number] 0 01/06 CMP Creat inine mg/dL 0.66 1.25 1.00 FINAL Nicole Ya * [facility] , [address] [facility] [id number] 0 01/06 CMP GFR estim ate ml/min /1.73m ^2 60.2 GFR is calculate d using the CKD-EPI equation. FINAL Nicoledarius Ya * [facility] , [address] [facility] [id number] 0 01/06 CMP Gluco se mg/dL 74.0 100.0 88 FINAL Nicole Ya * [facility] , [address] [facility] [id number] 0 01/06 CMP Potas sium mmol/L 3.5 5.1 4.1 FINAL Nicole Ya * [facility] , [address] [facility] [id number] 0 01/06 CMP Sodiu m mmol/L 137.0 145.0 141 FINAL Nicole Ya * [facility] , [address] [facility] [id number] 0 01/06 CMP Bilir ubin, total mg/dL 0.2 1.3 0.8 FINAL Nicole Ya * [facility] , [address] [facility] [id number] 0 01/06 CMP Total prote in g/dL 6.3 8.2 6.2 Low FINAL Nicole Ya * [facility] , [address] [facility] [id number] 0 01/06 PRIOR RESUL T See Report FINAL Nicole Ya [facility], [facility] [address] [place] [id number] 4 01/06 SOURC E: Periphe ral Blood FINAL Nicole Ya [facility], [facility] [address] [place] [id number] 4 01/06 BCR ABL1/ ABL1 % % 0.000 FINAL Nicole Ya [facility], [facility] [address] [place] [id number] 4 01/06 BCR ABL1/ ABL1 % (IS) % 0.000 FINAL Nicole Ya [facility], [facility] [address] [place] [id number] 4 01/06 INTER PRETA TION see note [...] l informati on, please refer tohttp:// education .Newsblur/faq/F AQ72(This link is being provided forinform ational/e ducationa l purposes only.)Ass ay sensitivi ty is at least 4.5-logs below baselineB CR-ABL1 transcrip t levels but is dependent onquantit y and quality of RNA used for testing and thecellul arity of the sample.Th is test was developed and its analytica lperforma nce character istics have been determine dby [facility] , [place], [place].It has not been cleared or approved by the FDA. Thisassay has been validated pursuant to the CLIAregul ations and is used for clinical purposes. Reviewed by Aiden Hui M.D., Ph.D.Sta f Pathologi st FINAL [employer], [facility] [address] [place] [id number] 4 01/06 P190 BCR ABL1 Not Detecte d FINAL [employer], [facility] [address] [place] [id number] 4 01/06 P210 BCR ABL1 Not Detecte d FINAL [employer], [facility] [address] [place] [id number] 4 Medications Date Name Route Dose Frequency [...]
[2025-02-08 13:08] VITALS: BP 125/79; PULSE 96; RESP 16; TEMP 36.7; O2SAT 94
--- NOTE | 2025-02-08 13:33 | ED.GENADULT ---
HPI - General Adult General Date Seen: 02/08/25 Chief complaint: Chest Pain Stated complaint: told to come in by a doctor Time Seen by Provider: 02/08/25 13:16 History of Present Illness HPI narrative: Patient is a 70-year-old woman who says she has been sick for couple of weeks now. She was seen here on and at that time was having trouble with her left ear, she was told she had fluid behind the ear, she was put on prednisone and she took that for a few days. She says she just has not felt well since then. Initially she had a cough and sore throat although those have improved. The ear still bothering her, she feels like she can feel fluid in it. She does not have ear pain. She has not had fevers. She says she has been having problems with heartburn, this is a long-standing problem for her but it typically gets better with Tums in his not been improving with that treatment. She does take omeprazole daily. She has also been constipated and her appetite has been decreased. She says she has not really had nausea or vomiting, her stomach just feels kind of ?yucky. She called the clinic today to make an appointment and was told to come to the ER. She has a little bit of heartburn now, she says she was up all night with that last night. Related Data Home Medications ?Medication ?Instructions ?Recorded ?Confirmed atorvastatin 10 mg tablet 10 mg PO DAILY 01/25/25 01/25/25 bupropion HCl 75 mg tablet 75 mg PO DAILY 01/25/25 01/25/25 nilotinib HCl 200 mg capsule 200 mg PO DAILY 01/25/25 01/25/25 (Tasigna) omeprazole 10 mg capsule,delayed 10 mg PO DAILY 01/25/25 01/25/25 release propranolol 120 mg capsule,24 120 mg PO DAILY 01/25/25 01/25/25 hr,extended release (Inderal LA) Previous Rx's ?Medication ?Instructions ?Recorded fluticasone propionate 50 2 spray intranasal DAILY PRN #16 01/25/25 mcg/actuation nasal grams spray,suspension (Flonase Allergy Relief) prednisone 20 mg tablet 40 mg (2 x 20 mg) PO DAILY 4 days 01/25/25 #8 tabs Allergies Allergy/AdvReac Type Severity Reaction Status Date / Time imatinib Allergy Mild Rash Verified 01/25/25 22:28 Review of Systems Status of ROS: Reports: 10 or more systems reviewed and unremarkable except as noted in History and below [facility] Social History Smoking Status: Never smoker Do you use any of these nicotine containing products: None How often do you have a drink containing alcohol: monthly or less How many standard drinks containing alcohol do you have on a typical day: 1 or 2 How often do you have six or more drinks on one occasion: Never AUDIT-C Alcohol total score: 1 Non-prescribed substance use: denies use service: No Exam Narrative: Exam Narrative: Vital signs reviewed In general, alert, nontoxic elderly woman. She looks comfortable, breathing easily. Head: Normocephalic, atraumatic. Eyes: Sclera clear. Pupils equal and reactive. ENT: Mucous membranes moist. TMs normal bilaterally. Throat normal. Neck: Supple without adenopathy. No stridor. Heart: Regular rate and rhythm without murmur. Lungs: Clear. No increased work of breathing, crackles or wheezes. Abdomen: Soft, nontender to palpation. Specifically no epigastric or right upper quadrant tenderness. Negative Beaulieu's. Extremities: Well perfused, pulses intact. No significant edema. Neurologic: Alert, conversant. Speech fluent, face symmetric. Moves all extremities equally. Skin: Warm, dry well perfused. Affect: Normal. Const: Vital Signs, click to edit/add: Vital Signs - 24 hr 02/08/25 13:08 02/08/25 15:58 Temperature 98.1 F Pulse Rate 68 Pulse Rate [Pulse Oximeter] 96 Respiratory Rate 16 16 Blood Pressure 130/80 Blood Pressure [Ri ght Upper Arm] 125/79 Pulse Oximetry 94 96 Oxygen Delivery Me thod Room Air Room Air Course Course ED Course: Patient presents with what sounds initially to have been of viral syndrome with some lingering GI symptoms and problems with her left ear. Reviewed that her ear looks fairly normal today, there certainly may be a little bit of fluid there but no evidence of an infection. Discussed that when fluid does build up can take time to resolve and that I probably can not give her anything that will take that away immediately. With regard her other symptoms, diagnostic considerations would include an alternative explanation such as pneumonia, angina or a click acute coronary syndrome, congestive heart failure, gastritis or peptic ulcer disease, gastroesophageal reflux, my others. Labs are all entirely normal, given that she was up all night with heartburn I think a single negative troponin is adequate. We gave her a GI cocktail here. Recommend that she increase her omeprazole for couple of weeks to 20 mg b.i.d.. Avoid triggers for heartburn, see primary care if not improving over the next week or so. Return any time for acute worsening. I gave her the phone number for ENT if she would like to follow-up for her here, but discussed that those type of symptoms usually resolve on their own with time. Vital Signs Vital signs: Initial Vital Signs Temperature 98.1 F 02/08/25 13:08 Temperature Source Temporal Artery Scan 02/08/25 13:08 Pulse Rate 96 02/08/25 13:08 Pulse Rhythm Regular 02/08/25 13:08 Respiratory Rate 16 02/08/25 13:08 Blood Pressure 125/79 02/08/25 13:08 Blood Pressure Mean 94 02/08/25 13:08 Blood Pressure Position Sitting 02/08/25 13:08 Pulse Oximetry 94 02/08/25 13:08 Oxygen Delivery Method Room Air 02/08/25 13:08 Vital Signs Temperature 98.1 F 02/08/25 13:08 Pulse Rate 96 02/08/25 13:08 Respiratory Rate 16 02/08/25 13:08 Blood Pressure 125/79 02/08/25 13:08 Pulse Oximetry 94 02/08/25 13:08 Oxygen Delivery Method Room Air 02/08/25 13:08 Temperature 98.1 F 02/08/25 13:08 Pulse Rate 68 02/08/25 15:58 Respiratory Rate 16 02/08/25 15:58 Blood Pressure 130/80 02/08/25 15:58 Pulse Oximetry 96 02/08/25 15:58 Oxygen Delivery Method Room Air 02/08/25 15:58 Medications Administered Medications: Discontinued Medications Generic Name Dose Route Start Last Admin Trade Name Freq PRN Reason Stop Dose Admin Lidocaine/Aluminum/Magnesium/Simeth 30 ml 02/08/25 13:31 02/08/25 13:46 Gi Cocktail (Visc Lido/Antacid) 30 Ml PO 02/08/25 13:32 30 ml ONCE ONE Administration Medical Decision Making Lab Data Labs: Lab Results 02/08/25 02/08/25 Range/Units 13:32 13:44 WBC 7.80 (4.50-11.00) K/uL RBC 4.08 (4.00-5.20) m/uL Hgb 13.6 (12.0-16.0) gm/dL Hct 40.8 (33.0-51.0) % MCV 100 (80-100) fL MCH 33 (26-34) pg MCHC 33 (32-36) gm/dL RDW Coeff of Isabell 12.4 (11.5-15.5) % Plt Count 180 (140-440) K/uL Neut % (Auto) 71.0 (42.0-72.0) % Lymph % (Auto) 15.8 L (20-44) % [place] % (Auto) 12.3 H (0.0-11.0) % Eos % (Auto) 0.0 (0.0-7.0) % Baso % (Auto) 0.0 (0.0-3.0) % Neut # (Auto) 5.54 (1.7-7.0) K/uL Lymph # (Auto) 1.20 (0.90-2.90) K/uL [place] # (Auto) 1.00 H (0.00-0.90) K/UL Eos # (Auto) 0.00 (0.00-0.50) K/uL Baso # (Auto) 0.00 (0.00-0.30) K/uL Abs Immat Gran (auto) 0.07 (0.00-0.30) K/uL Imm/Tot Granulo (auto) 0.9 % Sodium 137 (135-149) mmol/L Potassium 4.2 (3.6-5.1) mmol/L Chloride 104 (96-114) mmol/L Carbon Dioxide 25 (20-32) mmol/L Anion Gap 8 (7-15) mEq/L BUN 16 (7-30) mg/dL Creatinine 1.0 (0.5-1.5) mg/dL Estimated GFR 60 ml/min Glucose 98 (60-115) mg/dL Calcium 9.1 (8.4-10.6) mg/dL Total Bilirubin 0.9 (0.1-1.5) mg/dL AST 28 (12-35) U/L ALT 34 (4-35) U/L Alkaline Phosphatase 82 (40-150) U/L Total Protein 6.1 (6.0-8.3) g/dL Albumin 3.8 (3.3-5.0) g/dL POC Troponin I 0.00 L (0.01-0.04) ng/ml Imaging Data Chest x-ray: Attestation: I have reviewed the pertinent imaging results. Radiologist's impression: Patient: Calista Vizcarra MR#: [id number] : 1955 Acct:[id number] Loc: ED Service Date: 02/08/[address]: Ordering Physician: Марина Muñiz M.D. Date of Service: 02/08/25 Procedure(s): XR chest 2V Accession Number(s): [id number] cc: Марина Muñiz M.D.; Provider,Not a Local~ For Patients: As a result of the Cures Act, medical imaging exams and procedure reports are released immediately into your electronic medical record. You may view this report before your referring provider. If you have questions, please contact your health care provider. INDICATION: Chest tightness TECHNIQUE: Chest radiograph 2 views COMPARISON: None FINDINGS: Mediastinum: The mediastinum is normal in appearance. The heart silhouette is normal in size and morphology. Lung: Both lungs are unremarkable in appearance. No sign of pleural effusion seen. No pneumothorax is identified. Bone and Soft tissue: Unremarkable for age. IMPRESSION: 1. No acute cardiopulmonary disease is seen. Dictated by: Ronald Rodrigues MD @ 02/08/2025 14:31:08 Discharge Plan Discharge Clinical Impression: Gastro-esophageal reflux Patient Disposition: Home, Self-Care Condition: Stable Instructions: GERD (Gastroesophageal Reflux Disease) (ED) Additional Instructions: According to records, you currently take 10 mg of omeprazole twice a day. I would recommend that you increase that to 20 mg twice a day for now. Your labs are all normal, there is no evidence of anything going on with your heart, no pneumonia, your liver and kidney function are normal. With regard here year, as discussed, a can take time for fluid to resolve. There is no evidence of an infection today. If you are having continued difficulties and would like to see a specialist, you can make an appointment to follow-up with ENT, . Return any time for severe new or worsening symptoms. Prescriptions: No Action nilotinib HCl [Tasigna] 200 mg capsule 200 mg PO DAILY Rx Instructions: must be taken on empty stomach; no food at least 2 hrs before or 1 hr after dose propranolol [Inderal LA] 120 mg capsule,extended release 24 hr 120 mg PO DAILY atorvastatin 10 mg tablet 10 mg PO DAILY bupropion HCl 75 mg tablet 75 mg PO DAILY omeprazole 10 mg capsule,delayed release(DR/EC) 10 mg PO DAILY fluticasone propionate [Flonase Allergy Relief] 50 mcg/actuation spray,suspension 2 spray intranasal DAILY PRNQty: 16 2RF Rx Instructions: administer into each nostril prednisone 20 mg tablet 40 mg PO DAILY 4 Days Qty: 8 0RF Follow Up/Referrals: Provider,Not a Local [Primary Care Provider, Family Practice] Stand Alone Forms: [place] [facility] Info Instructions
--- OUTSIDE RECORDS SUMMARY | 2025-02-08 13:38 | XMS_ITS ---
Author Name Interface, [id number] lity Address [address] [facility] [address] [address] [facility] On[facility] Address [address] [facility] [address] [address] Allergies and Adverse Reactions Medication/Group Name Reaction [...] 03/22/2023 APPOINTMENT TREATMENT 2 HR 03/13/2023 APPOINTMENT SKILLED NURSING FOLLOW UP 20 MIN 03/13/2023 APPOINTMENT LAB [...] in g/dL 3.2 5.2 4.5 FINAL [place] [address] [phone] Phone: () - 03/13 CMP Alkal ine phosp hatas e U/L 46.0 116.0 103 FINAL Ruiz [place] [address] [id number] 0 Phone: () - 03/13 CMP ALT/S GPT U/L 7.0 40.0 19 FINAL Ruiz [place] [address] [phone] 0 Phone: () - 03/13 CMP AST/S GOT U/L 13.0 40.0 23 FINAL [place] [address] [phone] 0 Phone: () - 03/13 CMP BUN mg/dL 9.0 23.0 [address] [id number] 0 Phone: () - 03/13 CMP Calci um mg/dL 8.7 10.4 10.5 High FINAL [place] [address] [phone] 0 Phone: () - 03/13 CMP Chlor rakan mmol/L 96.0 114.0 107 FINAL Ruiz [place] [address] [phone] 0 Phone: () - 03/13 CMP CO2 [...] the 96 hour stability window. FINAL [place] [address] [phone] 0 Phone: () - 03/13 CMP Creat inine mg/dL 0.5 1.2 1.25 High FINAL Ruiz Terrazas [place] [address] [phone] 0 Phone: () - 03/13 CMP GFR estim ate ml/min /1.73m ^2 46.9 Low GFR is calculate d using the CKD-EPI equation. FINAL Ru[place] [address] [phone] 0 Phone: () - 03/13 CMP Gluco se mg/dL 73.0 126.0 111 FINAL [place] [address] [phone] 0 Phone: () - 03/13 CMP Potas sium mmol/L 3.5 5.1 4.2 FINAL Ruiz Raya [place] [address] [phone] 0 Phone: () - 03/13 CMP Sodiu m mmol/L 136.0 145.0 144 FINAL [place] [address] [id number] 0 Phone: () - 03/13 CMP Bilir ubin, total mg/dL 0.3 1.2 0.8 FINAL [place] [address] [phone] 0 Phone: () - 03/13 CMP Total prote in g/dL 5.7 8.2 6.7 FINAL Ruiz Raya [place] [address] [id number] 0 Phone: () - 03/13 CBC w/ auto diff HGB g/dL 11.3 15.2 14.6 FINAL Ruiz Raya [facility], [address] [place] [address] [address] [facility] [phone] 0 Phone: () - 03/13 CBC w/ auto diff Augustus # (ANC) K/uL 1.6 6.6 5.3 FINAL Ruiz Terrazas [facility], [address] [place] [address] 210 [facility] [phone] 0 Phone: () - 03/13 CBC w/ auto diff IG % % 0.0 0.5 0.3 FINAL [facility] [place] [address] [place] [address] 210 [facility] [phone] 0 Phone: () - 03/13 CBC w/ auto diff IG # K/uL 0.0 0.03 0.02 FINAL [facility] [place], [address] [place] [address] 210 [facility] [phone] 0 Phone: () - 03/13 CBC w/ auto diff MO % % 6.0 15.0 9.4 FINAL [facility] [place], [address] [place] [address] 210 [facility] [phone] 0 Phone: () - 03/13 CBC w/ auto diff WBC K/uL 3.0 8.9 7.7 FINAL [facility] [place], [address] [place] [address] 210 [facility] [phone] 0 Phone: () - 03/13 CBC w/ auto diff PLT K/uL 113.0 364.0 160 FINAL [facility] [place], [address] [place] [address] 210 [facility] [phone] 0 Phone: () - 03/13 CBC w/ auto diff Augustus % % 43.0 74.0 69.5 FINAL [facility] [place], [address] [place] [address] 210 [facility] [id number] 0 Phone: () - 03/13 CBC w/ auto diff LY % % 14.0 41.0 19.5 FINAL [facility] [place], [address] [place] [address] 210 [facility] [phone] 0 Phone: () - 03/13 CBC w/ auto diff EO % % 0.0 7.0 0.9 FINAL Ruiz muñoz [facility], [address] [place] [address] 210 [place] [id number] 0 Phone: () - 03/13 CBC w/ auto diff BA % % 0.0 2.0 0.4 FINAL Ruiz muñoz [facility], [address] [place] [address] 210 [place] [phone] 0 Phone: () - 03/13 CBC w/ auto diff LY # K/uL 0.4 3.6 1.5 FINAL Ruiz muñoz [facility], [address] [place] [address] 210 [place] [id number] 0 Phone: () - 03/13 CBC w/ auto diff MO # K/uL 0.2 1.3 0.7 FINAL Ruiz muñoz [facility], [address] [place] [address] 210 [place] [phone] 0 Phone: () - 03/13 CBC w/ auto diff EO # K/uL 0.0 0.6 0.1 FINAL Ruiz muñoz [facility], [address] [place] [address] 210 [place] [id number] 0 Phone: () - 03/13 CBC w/ auto diff BA # K/uL 0.0 0.2 0.0 FINAL Ruiz muñoz [facility], [address] [place] [address] 210 [place] [phone] 0 Phone: () - 03/13 CBC w/ auto diff NRBC % #/100W BC 0.0 0.2 0.0 FINAL Ruiz muñoz [facility], [address] [place] [address] 210 [place] [id number] 0 Phone: () - 03/13 CBC w/ auto diff RBC M/uL 3.9 5.1 4.58 FINAL Ruiz muñoz [facility], [address] [place] [address] 210 [place] [id number] 0 Phone: () - 03/13 CBC w/ auto diff HCT % 35.0 48.0 45.2 FINAL Ruiz Terrazas [facility], [address] [place] [address] 210 [place] [phone] 0 Phone: () - 03/13 CBC w/ auto diff MCV fL 80.0 104.0 98.7 FINAL [facility] [place], [address] [place] [address] 210 [facility] [phone] 0 Phone: () - 03/13 CBC w/ auto diff MCH pg 26.0 35.0 31.9 FINAL [facility] [place], [address] [place] [address] 210 [place] [id number] 0 Phone: () - 03/13 CBC w/ auto diff MCHC g/dL 30.0 35.0 32.3 FINAL Ruiz Raya [facility], [address] [place] [address] 210 [place] [id number] 0 Phone: () - 03/13 CBC w/ auto diff MPV fL 9.5 13.4 9.7 FINAL [facility] [place], [address] [place] [address] 210 [facility] [phone] 0 Phone: () - 03/13 CBC w/ auto diff RDW % 11.4 16.1 12.90 FINAL [facility] [place], [address] [place] [address] 210 [facility] [phone] 0 Phone: () - 03/13 BCR/A BL1, p210 Resul t see interpr etation FINAL Ruiz Raay 03/13 Speci men Type edta whole blood [...] all possible fusionfor ms. Please contact the [facility] at with questions or if additiona ltesting is required. See the [facility] iesInterp retive Handbook for method details.T [...] its performan ce character isticsdet ermined by [facility] in a manner consisten t with CLIArequi rements. This test has not been cleared or approved bythe U.S. Food and Drug Administr ation.Jane t Performed by:[facility] - [address] [id number] Director: Michael Reid M.D. Ph.D.; CLIA# [id number] 2 FINAL Ruiz Raya 09/11 PRIOR RESUL T Not Given FINAL Kennedy Unglaub [facility] [address] [place] [id number] 4 09/11 SOURC E: Periphe ral Blood FINAL Kennedy Rothlaub [facility], [facility] [address] [place] [id number] 4 09/11 BCR ABL1/ ABL1 % % 0.000 FINAL Kennedy Rothlaub [facility], [facility] [address] [place] [id number] 4 09/11 BCR ABL1/ ABL1 % (IS) % 0.000 FINAL Kennedy Bernalub [facility], [facility] [address] [place] [id number] 4 09/11 INTER PRETA TION see note [...] l informati on, please refer tohttp:// education .[employer]/faq/F AQ72(This link is being provided forinform ational/e ducationa l purposes only.)Ass ay sensitivi ty is at least 4.5-logs below baselineB CR-ABL1 transcrip t levels but is dependent onquantit y and quality of RNA used for testing and thecellul arity of the sample.Th is test was developed and its analytica lperforma nce character istics have been determine dby [facility] [place], [place].It has not been cleared or approved by the FDA. Thisassay has been validated pursuant to the CLIAregul ations and is used for clinical purposes. Meera drake, Ph.D., [facility] nical Director, Molecular Oncology FINAL [place] [facility], [facility] [address] [place] [id number] 4 09/11 P190 BCR ABL1 Not Detecte d FINAL [place] [facility], [facility] [address] [place] [id number] 4 09/11 P210 BCR ABL1 Not Detecte d FINAL [place] [facility] [address] [place] [id number] 4 09/11 CBC w/ auto diff WBC K/uL 3.0 8.9 5.7 FINAL [facility] [address] 210 [facility] [phone] 0 Phone: () - 09/11 CBC w/ auto diff HGB g/dL 11.3 15.2 13.8 FINAL [facility] [address] 210 [place] [phone] 0 Phone: () - 09/11 CBC w/ auto diff PLT K/uL 113.0 364.0 167 FINAL [facility] [address] 210 [place] [id number] 0 Phone: () - 09/11 CBC w/ auto diff Augustus # (ANC) K/uL 1.6 6.6 3.7 FINAL Kennedy Carmonaot a [facility] - [place], [address] [place] [address] 210 [place] [id number] 0 Phone: () - 09/11 CBC w/ auto diff Augustus % % 43.0 74.0 64.2 FINAL Kennedy Carmonaot a [facility] - [place], [address] [place] [address] 210 [place] [id number] 0 Phone: () - 09/11 CBC w/ auto diff IG % % 0.0 0.5 0.2 FINAL Kennedy Carmonaot a [facility] - [place], [address] [place] [address] 210 [place] [id number] 0 Phone: () - 09/11 CBC w/ auto diff IG # K/uL 0.0 0.03 0.01 FINAL Kennedy Carmonaot a [facility] - [place], [address] [place] [address] 210 [place] [phone] 0 Phone: () - 09/11 CBC w/ auto diff LY % % 14.0 41.0 24.0 FINAL Kennedy Carmonaot a [facility] - [place], [address] [place] [address] 210 [place] [id number] 0 Phone: () - 09/11 CBC w/ auto diff MO % % 6.0 15.0 9.9 FINAL Kennedy Carmonaot a [facility] - [place], [address] [place] [address] 210 [place] [id number] 0 Phone: () - 09/11 CBC w/ auto diff EO % % 0.0 7.0 1.2 FINAL Kennedy Carmonaot a [facility] - [place], [address] [place] [address] 210 [place] [id number] 0 Phone: () - 09/11 CBC w/ auto diff BA % % 0.0 2.0 0.5 FINAL Kennedy Carmonaot a [facility] - [place], [address] [place] [address] 210 [place] [id number] 0 Phone: () - 09/11 CBC w/ auto diff LY # K/uL 0.4 3.6 1.4 FINAL Kennedy Carmonaot a [facility] - [place], [address] [place] [address] 210 [place] [id number] 0 Phone: () - 09/11 CBC w/ auto diff MO # K/uL 0.2 1.3 0.6 FINAL Kennedy Doloersub Mathewot a [facility], [address] [place] [address] 210 [place] [id number] 0 Phone: () - 09/11 CBC w/ auto diff EO # K/uL 0.0 0.6 0.1 FINAL Kennedy Doloresub Mathewot a [facility], [address] [place] [address] 210 [place] [id number] 0 Phone: () - 09/11 CBC w/ auto diff BA # K/uL 0.0 0.2 0.0 FINAL Kennedy Doloresub Mathewot a [facility], [address] [place] [address] 210 [place] [id number] 0 Phone: () - 09/11 CBC w/ auto diff NRBC % #/100W BC 0.0 0.2 0.0 FINAL Kennedy Doloresub Mathewot a [facility], [address] [place] [address] 210 [place] [id number] 0 Phone: () - 09/11 CBC w/ auto diff RBC M/uL 3.9 5.1 4.38 FINAL Kennedy Carmonaot a [facility], [address] [place] [address] 210 [place] [id number] 0 Phone: () - 09/11 CBC w/ auto diff HCT % 35.0 48.0 42.8 FINAL Kennedy Carmonaot a [facility], [address] [place] [address] 210 [place] [id number] 0 Phone: () - 09/11 CBC w/ auto diff MCV fL 80.0 104.0 97.7 FINAL Kennedy Jenna Carmonaot a [facility], [address] [place] [address] 210 [place] [id number] 0 Phone: () - 09/11 CBC w/ auto diff MCH pg 26.0 35.0 31.5 FINAL Kennedy Doloresub Mathewot a [facility], [address] [place] [address] 210 [place] [id number] 0 Phone: () - 09/11 CBC w/ auto diff MCHC g/dL 30.0 35.0 32.2 FINAL Kennedy Doloresub Mathewot a [facility], [address] [facility] 210 [facility] [id number] 0 Phone: () - 09/11 CBC w/ auto diff MPV fL 9.5 13.4 9.3 Low FINAL Kennedy Carmona toni [facility], [address] [facility] 210 [place] [phone] 0 Phone: () - 09/11 CBC w/ auto diff RDW % 11.4 16.1 12.70 FINAL Kennedy Carmona toni [facility], [address] [place] [address] 210 [place] [phone] 0 Phone: () - 09/11 CMP Album in g/dL 3.2 5.2 4.5 FINAL [place] [address] [phone] 0 Phone: () - 09/11 CMP Alkal ine phosp hatas e U/L 46.0 116.0 111 FINAL Kennedy [place] [address] [id number] 0 Phone: () - 09/11 CMP ALT/S GPT U/L 7.0 40.0 22 FINAL Kennedy [place] [address] [phone] 0 Phone: () - 09/11 CMP AST/S GOT U/L 13.0 40.0 20 FINAL Kennedy [place] [address] [phone] 0 Phone: () - 09/11 CMP BUN mg/dL 9.0 23.0 10.0 FINAL Kennedy [place] [address] [phone] 0 Phone: () - 09/11 CMP Calci um mg/dL 8.7 10.4 9.7 FINAL Kennedy [place] [address] [phone] 0 Phone: () - 09/11 CMP Chlor rakan mmol/L 96.0 114.0 109 FINAL Kennedy Carmona toni [facility], [address] [phone] 0 Phone: () - 09/11 CMP CO2 [...] hour stability window. FINAL Kennedy Carmona toni [facility], [address] [phone] 0 Phone: () - 09/11 CMP Creat inine mg/dL 0.5 1.2 1.05 FINAL Kennedy Carmona toni [place] [address] [phone] 0 Phone: () - 09/11 CMP GFR estim ate ml/min /1.73m ^2 57.6 Low GFR is calculate d using the CKD-EPI equation. FINAL Kennedy Carmona toni [place] [address] [phone] 0 Phone: () - 09/11 CMP Gluco se mg/dL 73.0 126.0 104 FINAL Kennedy Carmona toni [place] [address] [id number] 0 Phone: () - 09/11 CMP Potas sium mmol/L 3.5 5.1 4.3 FINAL Kennedy Carmona toni [facility] [address] [phone] 0 Phone: () - 09/11 CMP Sodiu m mmol/L 136.0 145.0 145 FINAL Kennedy Carmona toni [facility] [address] [id number] 0 Phone: () - 09/11 CMP Bilir ubin, total mg/dL 0.3 1.2 0.9 FINAL Kennedy Carmonaot a [facility], [address] [place] [phone] 0 Phone: () - 09/11 CMP Total prote in g/dL 5.7 8.2 6.9 FINAL Kennedy Carmonaot a [facility] - [place], [address] [place] [phone] 0 Phone: () - 11/16 CBC w/ auto diff WBC K/uL 3.0 8.9 7.6 FINAL Nicole Terrazas a [facility] - [place], [address] [facility] [address] [place] [phone] 0 Phone: () - 11/16 CBC w/ auto diff HGB g/dL 11.3 15.2 13.4 FINAL Nicole Terrazas a [facility] - [place], [address] [facility] [address] [place] [phone] 0 Phone: () - 11/16 CBC w/ auto diff PLT K/uL 113.0 364.0 162 FINAL Nicole Terrazas a [facility] - [place], [address] [place] [phone] 0 Phone: () - 11/16 CBC w/ auto diff Augustus # (ANC) K/uL 1.6 6.6 6.7 High FINAL Nicole Terrazas a [facility] - [place], [address] [place] [id number] 0 Phone: () - 11/16 CBC w/ auto diff Augustus % % 43.0 74.0 88.7 High FINAL Nicole Terrazas a [facility] - [place], [address] [place] [phone] 0 Phone: () - 11/16 CBC w/ auto diff IG % % 0.0 0.5 0.7 High FINAL Nicole Carmonaot a [facility] - [place], [address] [place] [phone] 0 Phone: () - 11/16 CBC w/ auto diff IG # K/uL 0.0 0.03 0.05 High FINAL Nicole Ya [place] [facility] [place], [address] [place] [phone] 0 Phone: () - 11/16 CBC w/ auto diff LY % % 14.0 41.0 8.8 Low FINAL Nicole Terrazas a [facility] - [place], [address] [place] [id number] 0 Phone: () - 11/16 CBC w/ auto diff MO % % 6.0 15.0 1.8 Low FINAL Nicole Terrazas a [facility] - [place], [address] [place] [phone] 0 Phone: () - 11/16 CBC w/ auto diff EO % % 0.0 7.0 0.0 FINAL Nicole Terrazas a [facility] - [place], [address] [place] [id number] 0 Phone: () - 11/16 CBC w/ auto diff BA % % 0.0 2.0 0.0 FINAL Nicole Terrazas a [facility] - [place], [address] [place] [phone] 0 Phone: () - 11/16 CBC w/ auto diff LY # K/uL 0.4 3.6 0.7 FINAL Nicole Terrazas a [facility] - [place], [address] [place] [id number] 0 Phone: () - 11/16 CBC w/ auto diff MO # K/uL 0.2 1.3 0.1 Low FINAL Nicole Terrazas a [facility] - [place], [address] [place] [phone] 0 Phone: () - 11/16 CBC w/ auto diff EO # K/uL 0.0 0.6 0.0 FINAL Nicole Carmonaot a [facility] - [place], [address] [place] [phone] 0 Phone: () - 11/16 CBC w/ auto diff BA # K/uL 0.0 0.2 0.0 FINAL Nicole Carmonaot a [facility] - [place], [address] [place] [phone] 0 Phone: () - 11/16 CBC w/ auto diff NRBC % #/100W BC 0.0 0.2 0.0 FINAL Nicole Terrazas a [facility] - [place], [address] [place] [phone] 0 Phone: () - 11/16 CBC w/ auto diff RBC M/uL 3.9 5.1 4.16 FINAL Nicole Terrazas a [facility] - [place], [address] [place] [phone] 0 Phone: () - 11/16 CBC w/ auto diff HCT % 35.0 48.0 39.7 FINAL Nicole Terrazas a [facility] - [place], [address] [place] [id number] 0 Phone: () - 11/16 CBC w/ auto diff MCV fL 80.0 104.0 95.4 FINAL Nicole muñoz [facility] - [place], [address] [place] [phone] 0 Phone: () - 11/16 CBC w/ auto diff MCH pg 26.0 35.0 32.2 FINAL Nicole muñoz [facility] - [place], [address] [place] [phone] 0 Phone: () - 11/16 CBC w/ auto diff MCHC g/dL 30.0 35.0 33.8 FINAL Nicole Terrazas a [facility] - [place], [address] [place] [phone] 0 Phone: () - 11/16 CBC w/ auto diff MPV fL 9.5 13.4 9.3 Low FINAL Nicole Carmonaot a [facility] - [place], [address] [place] [phone] 0 Phone: () - 11/16 CBC w/ auto diff RDW % 11.4 16.1 11.90 FINAL [facility], [address] [facility] [phone] 0 Phone: () - 11/16 CMP Album in g/dL 3.2 5.2 4.5 FINAL Nicole Ya [facility], [facility] [address] [place] [address] [place] [address] [phone] 0 Phone: () - 11/16 CMP Alkal ine phosp hatas e U/L 46.0 116.0 91 FINAL [place] [address] [id number] 0 Phone: () - 11/16 CMP ALT/S GPT U/L 7.0 40.0 15 FINAL [facility] [place] [address] [address] [place] [address] [phone] 0 Phone: () - 11/16 CMP AST/S GOT U/L 13.0 40.0 18 FINAL [place] [address] [address] [place] [address] [phone] 0 Phone: () - 11/16 CMP BUN mg/dL 9.0 23.0 16.0 FINAL [place] [address] [address] [place] [address] [phone] 0 Phone: () - 11/16 CMP Calci um mg/dL 8.7 10.4 9.8 FINAL [place] [address] [address] [place] [address] [phone] 0 Phone: () - 11/16 CMP Chlor rakan mmol/L 96.0 114.0 109 FINAL [place] [address] [phone] 0 Phone: () - 11/16 CMP CO2 [...] 96 hour stability window. FINAL Nicole Terrazas [address] [phone] 0 Phone: () - 11/16 CMP Creat inine mg/dL 0.5 1.2 0.88 FINAL Nicole Carmona[address] [phone] 0 Phone: () - 11/16 CMP GFR estim ate ml/min /1.73m ^2 71.2 GFR is calculate d using the CKD-EPI equation. FINAL Nicole Carmona[address] [phone] 0 Phone: () - 11/16 CMP Gluco se mg/dL 73.0 126.0 152 High FINAL Nicole Carmona[address] [id number] 0 Phone: () - 11/16 CMP Potas sium mmol/L 3.5 5.1 4.2 FINAL Nicole Ya [address] [phone] 0 Phone: () - 11/16 CMP Sodiu m mmol/L 136.0 145.0 142 FINAL Nicole Carmona[address] [phone] 0 Phone: () - 11/16 CMP Bilir ubin, total mg/dL 0.3 1.2 0.6 FINAL Nicole Carmona[address] [phone] 0 Phone: () - 11/16 CMP Total prote in g/dL 5.7 8.2 6.8 FINAL Nicole [place] [address] [phone] 0 Phone: () - 11/16 iSTAT creat inine panel Creat inine , iSTAT mg/dl 0.6 1.3 0.9 FINAL Nicole muñoz [facility] - [place], [address] [facility] [address] [place] [phone] 0 Phone: () - 11/16 Xi hermosillo inine panel GFR estim ate ml/min /1.73m ^2 69.3 GFR is calculate d using the CKD-EPI equation. FINAL Nicole muñoz [facility] - [place], [address] [facility] [address] [place] [phone] 0 Phone: () - 11/21 CMP Album in g/dL 3.2 5.2 3.9 FINAL Nicole muñoz [facility], [facility] [address] [place] [address] [place] [address] [id number] 0 Phone: () - 11/21 CMP Alkal ine phosp hatas e U/L 46.0 116.0 90 FINAL Nicole muñoz [place] [address] [address] [facility] [address] [place] [address] [phone] 0 Phone: () - 11/21 CMP ALT/S GPT U/L 7.0 40.0 37 FINAL Nicole Terrazas [place] [address] [address] [place] [address] [phone] 0 Phone: () - 11/21 CMP AST/S GOT U/L 13.0 40.0 31 FINAL Nicole muñoz [place] [address] [address] [place] [address] [phone] 0 Phone: () - 11/21 CMP BUN mg/dL 9.0 23.0 13.0 FINAL Nicole muñoz [facility], [facility] [address] [place] [address] [phone] 0 Phone: () - 11/21 CMP Calci um mg/dL 8.7 10.4 8.9 FINAL Nicole muñoz [place] [address] [id number] 0 Phone: () - 11/21 CMP Chlor rakan mmol/L 96.0 114.0 107 FINAL Nicole [place] [address] [address] [place] [address] [phone] 0 Phone: () - 11/21 CMP CO2 [...] the 96 hour stability window. FINAL Nicole [facility], [address] [phone] 0 Phone: () - 11/21 CMP Creat inine mg/dL 0.5 1.2 0.83 FINAL Nicole [place] [address] [id number] 0 Phone: () - 11/21 CMP GFR estim ate ml/min /1.73m ^2 76.3 GFR is calculate d using the CKD-EPI equation. FINAL Nicole Ya [place] [address] [phone] 0 Phone: () - 11/21 CMP Gluco se mg/dL 73.0 126.0 99 FINAL Nicoledarius Carm[place] [address] [phone] 0 Phone: () - 11/21 CMP Potas sium mmol/L 3.5 5.1 3.8 FINAL Nicole [place] [address] [id number] 0 Phone: () - 11/21 CMP Sodiu m mmol/L 136.0 145.0 142 [facility]AL [facility] [address] [phone] 0 Phone: () - 11/21 CMP Bilir ubin, total mg/dL 0.3 1.2 1.3 High FINAL [facility] [address] [phone] 0 Phone: () - 11/21 CMP Total prote in g/dL 5.7 8.2 6.0 FINAL Nicole Terrazas a [facility] - [place], [address] [place] [phone] 0 Phone: () - 11/21 Smear revie w panel CBC Smear revie w comme nts Consist ent with reporte d results Abnorma l Lymphs present Large and-or giant platele ts present FINAL Nicole Terrazas a [facility] - [place], [address] [place] [phone] 0 Phone: () - 11/21 CBC w/ auto diff WBC K/uL 3.0 8.9 1.0 Low FINAL Nicole Terrazas a [facility] - [place], [address] [place] [phone] 0 Phone: () - 11/21 CBC w/ auto diff HGB g/dL 11.3 15.2 13.2 FINAL Nicole Terrazas a [facility] - [place], [address] [place] [phone] 0 Phone: () - 11/21 CBC w/ auto diff PLT K/uL 113.0 364.0 47 Critica l hematol ogy result obtaine d Criti todd Low FINAL Nicole Terrazas [facility] - [place], [address] [place] [phone] 0 Phone: () - 11/21 CBC w/ auto diff Augustus # (ANC) K/uL 1.6 6.6 0.4 Critica l hematol ogy result obtaine d Criti todd Low FINAL [facility] [place], [address] [place] [phone] 0 Phone: () - 11/21 CBC w/ auto diff Augustus % % 43.0 74.0 34.7 Low FINAL [facility] [place], [address] [place] [id number] 0 Phone: () - 11/21 CBC w/ auto diff IG % % 0.0 0.5 1.9 High FINAL [facility] [place], [address] [place] [id number] 0 Phone: () - 11/21 CBC w/ auto diff IG # K/uL 0.0 0.03 0.02 FINAL [facility] [place], [address] [place] [id number] 0 Phone: () - 11/21 CBC w/ auto diff LY % % 14.0 41.0 56.7 High FINAL [facility] [place], [address] [place] [phone] 0 Phone: () - 11/21 CBC w/ auto diff MO % % 6.0 15.0 1.9 Low FINAL [facility] [place], [address] [place] [id number] 0 Phone: () - 11/21 CBC w/ auto diff EO % % 0.0 7.0 1.9 FINAL [facility] [place], [address] [place] [id number] 0 Phone: () - 11/21 CBC w/ auto diff BA % % 0.0 2.0 2.9 High FINAL [facility] [place], [address] [place] [phone] 0 Phone: () - 11/21 CBC w/ auto diff LY # K/uL 0.4 3.6 0.6 FINAL [facility] [place], [address] [place] [id number] 0 Phone: () - 11/21 CBC w/ auto diff MO # K/uL 0.2 1.3 0.0 Low FINAL [facility] [place], [address] [place] [id number] 0 Phone: () - 11/21 CBC w/ auto diff EO # K/uL 0.0 0.6 0.0 FINAL [facility] [place], [address] [place] [id number] 0 Phone: () - 11/21 CBC w/ auto diff BA # K/uL 0.0 0.2 0.0 FINAL [facility] [place], [address] [place] [id number] 0 Phone: () - 11/21 CBC w/ auto diff NRBC % #/100W BC 0.0 0.2 0.0 FINAL [facility] [place], [address] [place] [id number] 0 Phone: () - 11/21 CBC w/ auto diff RBC M/uL 3.9 5.1 4.07 FINAL [facility] [place], [address] [place] [id number] 0 Phone: () - 11/21 CBC w/ auto diff HCT % 35.0 48.0 38.4 FINAL [facility] [place], [address] [place] [id number] 0 Phone: () - 11/21 CBC w/ auto diff MCV fL 80.0 104.0 94.3 FINAL [facility] [place], [address] [place] [id number] 0 Phone: () - 11/21 CBC w/ auto diff MCH pg 26.0 35.0 32.4 FINAL [facility] [place], [address] [place] [id number] 0 Phone: () - 11/21 CBC w/ auto diff MCHC g/dL 30.0 35.0 34.4 FINAL [facility] [place], [address] [place] [id number] 0 Phone: () - 11/21 CBC w/ auto diff MPV fL 9.5 13.4 10.1 FINAL [facility] [place], [address] [place] [id number] 0 Phone: () - 11/21 CBC w/ auto diff RDW % 11.4 16.1 11.80 FINAL [facility] [place], [address] [place] [id number] 0 Phone: () - 11/21 CBC w/ auto diff Auto CBC comme nts Slide review to follow FINAL [facility] [place], [address] [place] [id number] 0 Phone: () - 11/27 CBC w/ auto diff WBC K/uL 3.0 8.9 32.0 High FINAL [facility] [place], [address] [place] [id number] 0 Phone: () - 11/27 CBC w/ auto diff HGB g/dL 11.3 15.2 13.3 FINAL [facility] [place], [address] [place] [id number] 0 Phone: () - 11/27 CBC w/ auto diff PLT K/uL 113.0 364.0 87 Low FINAL [facility] [place], [address] [place] [id number] 0 Phone: () - 11/27 CBC w/ auto diff Augustus # (ANC) K/uL 1.6 6.6 25.7 High FINAL [facility] [place], [address] [place] [id number] 0 Phone: () - 11/27 CBC w/ auto diff Augustus % % 43.0 74.0 80.5 High FINAL [facility] [place], [address] [place] [id number] 0 Phone: () - 11/27 CBC w/ auto diff IG % % 0.0 0.5 7.6 High FINAL [facility] [place], [address] [place] [id number] 0 Phone: () - 11/27 CBC w/ auto diff IG # K/uL 0.0 0.03 2.44 High FINAL [facility] [place], [address] [place] [id number] 0 Phone: () - 11/27 CBC w/ auto diff LY % % 14.0 41.0 5.8 Low FINAL [facility] [place], [address] [place] [id number] 0 Phone: () - 11/27 CBC w/ auto diff MO % % 6.0 15.0 6.1 FINAL [facility] [place], [address] [place] [id number] 0 Phone: () - 11/27 CBC w/ auto diff EO % % 0.0 7.0 0.0 FINAL [facility] [place], [address] [place] [id number] 0 Phone: () - 11/27 CBC w/ auto diff BA % % 0.0 2.0 0.0 FINAL [facility] [place], [address] [place] [id number] 0 Phone: () - 11/27 CBC w/ auto diff LY # K/uL 0.4 3.6 1.8 FINAL [facility] [place], [address] [place] [id number] 0 Phone: () - 11/27 CBC w/ auto diff MO # K/uL 0.2 1.3 2.0 High FINAL [facility] [place], [address] [place] [id number] 0 Phone: () - 11/27 CBC w/ auto diff EO # K/uL 0.0 0.6 0.0 FINAL [facility] [place], [address] [place] [id number] 0 Phone: () - 11/27 CBC w/ auto diff BA # K/uL 0.0 0.2 0.0 FINAL [facility] [place], [address] [place] [id number] 0 Phone: () - 11/27 CBC w/ auto diff NRBC % #/100W BC 0.0 0.2 0.3 High FINAL Nicole Felton Nini [facility] [place], [address] [place] [id number] 0 Phone: () - 11/27 CBC w/ auto diff RBC M/uL 3.9 5.1 4.09 FINAL Nicole Ya Mathewdamaris [facility] [place], [address] [place] [id number] 0 Phone: () - 11/27 CBC w/ auto diff HCT % 35.0 48.0 38.0 FINAL Nicole Felton Mathewdamaris [facility] [place], [address] [place] [id number] 0 Phone: () - 11/27 CBC w/ auto diff MCV fL 80.0 104.0 92.9 FINAL Nicole Ya [facility]wdamaris [facility] [place], [address] [place] [id number] 0 Phone: () - 11/27 CBC w/ auto diff MCH pg 26.0 35.0 32.5 FINAL Nicole Ya Mathewdamaris [facility] [place], [address] [place] [id number] 0 Phone: () - 11/27 CBC w/ auto diff MCHC g/dL 30.0 35.0 35.0 FINAL [facility]ton [facility] [place], [address] [place] [id number] 0 Phone: () - 11/27 CBC w/ auto diff MPV fL 9.5 13.4 9.1 Low FINAL [facility] [place], [address] [place] [id number] 0 Phone: () - 11/27 CBC w/ auto diff RDW % 11.4 16.1 11.60 FINAL [facility] [place], [address] [place] [id number] 0 Phone: () - 11/27 iSTAT creat inine panel Creat inine , iSTAT mg/dl 0.6 1.3 1.1 FINAL [facility] [place], [address] [place] [id number] 0 Phone: () - 11/27 iSTAT creat inine panel GFR estim ate ml/min /1.73m ^2 54.4 Low GFR is calculate d using the CKD-EPI equation. FINAL [facility] [place], [address] [place] [id number] 0 Phone: () - 11/27 iSTAT Na+/K +/Cl- panel Sodiu m, iSTAT mmol/L 138.0 146.0 137 Low Reference range adjusted 0 with implement ation of I-Stat 8+ cartridge . FINAL [facility] [place], [address] [place] [id number] 0 Phone: () - 11/27 iSTAT Na+/K +/Cl- panel Potas sium, iSTAT mmol/L 3.5 4.9 3.4 Low Reference range adjusted 0 with implement ation of I-Stat 8+ cartridge . FINAL [facility] [place], [address] [place] [id number] 0 Phone: () - 11/27 iSTAT Na+/K +/Cl- panel Chlor rakan, iSTAT mmol/L 98.0 109.0 99 Reference range adjusted 0 with implement ation of I-Stat 8+ cartridge . FINAL [facility] [place], [address] [facility] [place] [id number] 0 Phone: () - 12/07 iSTAT creat inine panel Creat inine , iSTAT mg/dl 0.6 1.3 0.8 FINAL Tiara [facility] [place], [address] [facility] [address] [facility] [place] [id number] 0 Phone: () - 12/07 iSTAT creat inine panel GFR estim ate ml/min /1.73m ^2 79.8 GFR is calculate d using the CKD-EPI equation. FINAL [facility] [place], [address] [facility] [address] [facility] [place] [id number] 0 Phone: () - 12/07 CMP Album in g/dL 3.2 5.2 3.9 FINAL Tiara muñoz [facility], [address] [place] [id number] 0 Phone: () - 12/07 CMP Alkal ine phosp hatas e U/L 46.0 116.0 97 FINAL Tiara muñoz [facility], [address] [place] [id number] 0 Phone: () - 12/07 CMP ALT/S GPT U/L 7.0 40.0 27 FINAL [facility], [address] [facility] [id number] 0 Phone: () - 12/07 CMP AST/S GOT U/L 13.0 40.0 17 FINAL Tiara muñoz [facility], [address] [place] [address] [id number] 0 Phone: () - 12/07 CMP BUN mg/dL 9.0 23.0 12.0 FINAL [place] [address] [facility] 100 [facility] [id number] 0 Phone: () - 12/07 CMP Calci um mg/dL 8.7 10.4 9.8 FINAL Tiara [place] [address] [facility] 100 [facility] [id number] 0 Phone: () - 12/07 CMP Chlor rakan mmol/L 96.0 114.0 110 FINAL Tiara [place] [address] [facility] 100 [facility] [id number] 0 Phone: () - 12/07 CMP CO2 [...] of the 96 hour stability window. FINAL [place] [address] [id number] 0 Phone: () - 12/07 CMP Creat inine mg/dL 0.5 1.2 0.89 FINAL [place] [address] [id number] 0 Phone: () - 12/07 CMP GFR estim ate ml/min /1.73m ^2 70.2 GFR is calculate d using the CKD-EPI equation. FINAL [place] [address] [id number] 0 Phone: () - 12/07 CMP Gluco se mg/dL 73.0 126.0 152 High FINAL [place] [address] [facility] [address] [facility] [id number] 0 Phone: () - 12/07 CMP Potas sium mmol/L 3.5 5.1 4.3 FINAL [place] [address] [id number] 0 Phone: () - 12/07 CMP Sodiu m mmol/L 136.0 145.0 145 FINAL [facility], [address] [place] [id number] 0 Phone: () - 12/07 CMP Bilir ubin, total mg/dL 0.3 1.2 0.6 FINAL [facility], [address] [facility] [id number] 0 Phone: () - 12/07 CMP Total prote in g/dL 5.7 8.2 5.9 FINAL [facility], [address] [place] [id number] 0 Phone: () - 12/07 CBC w/ auto diff WBC K/uL 3.0 8.9 17.1 High FINAL [facility] [place], [address] [facility] [address] [place] [id number] 0 Phone: () - 12/07 CBC w/ auto diff HGB g/dL 11.3 15.2 10.9 Low FINAL [facility] [place], [address] [facility] [address] [place] [id number] 0 Phone: () - 12/07 CBC w/ auto diff PLT K/uL 113.0 364.0 157 FINAL [facility] [place], [address] [place] [id number] 0 Phone: () - 12/07 CBC w/ auto diff Augustus # (ANC) K/uL 1.6 6.6 15.3 High FINAL [facility] [place], [address] [place] [id number] 0 Phone: () - 12/07 CBC w/ auto diff Augustus % % 43.0 74.0 89.4 High FINAL [facility] [place], [address] [place] [id number] 0 Phone: () - 12/07 CBC w/ auto diff IG % % 0.0 0.5 1.8 High FINAL [facility] [place], [address] [place] [id number] 0 Phone: () - 12/07 CBC w/ auto diff IG # K/uL 0.0 0.03 0.30 High FINAL [facility] [place], [address] [place] [id number] 0 Phone: () - 12/07 CBC w/ auto diff LY % % 14.0 41.0 5.2 Low FINAL [facility] [place], [address] [place] [id number] 0 Phone: () - 12/07 CBC w/ auto diff MO % % 6.0 15.0 3.5 Low FINAL [facility] [place], [address] [place] [id number] 0 Phone: () - 12/07 CBC w/ auto diff EO % % 0.0 7.0 0.0 FINAL [facility] [place], [address] [place] [id number] 0 Phone: () - 12/07 CBC w/ auto diff BA % % 0.0 2.0 0.1 FINAL [facility] [place], [address] [place] [id number] 0 Phone: () - 12/07 CBC w/ auto diff LY # K/uL 0.4 3.6 0.9 FINAL [facility] [place], [address] [place] [id number] 0 Phone: () - 12/07 CBC w/ auto diff MO # K/uL 0.2 1.3 0.6 FINAL [facility] [place], [address] [place] [id number] 0 Phone: () - 12/07 CBC w/ auto diff EO # K/uL 0.0 0.6 0.0 FINAL [facility] [place], [address] [facility] [address] [place] [id number] 0 Phone: () - 12/07 CBC w/ auto diff BA # K/uL 0.0 0.2 0.0 FINAL [facility] [place], [address] [facility] [address] [place] [id number] 0 Phone: () - 12/07 CBC w/ auto diff NRBC % #/100W BC 0.0 0.2 0.0 FINAL [facility] [place], [address] [facility] [address] [place] [id number] 0 Phone: () - 12/07 CBC w/ auto diff RBC M/uL 3.9 5.1 3.37 Low FINAL [facility] [place], [address] [facility] [address] [place] [id number] 0 Phone: () - 12/07 CBC w/ auto diff HCT % 35.0 48.0 32.8 Low FINAL [facility] [place], [address] [facility] [address] [place] [id number] 0 Phone: () - 12/07 CBC w/ auto diff MCV fL 80.0 104.0 97.3 FINAL Tiara [facility] [place], [address] [facility] [address] [place] [id number] 0 Phone: () - 12/07 CBC w/ auto diff MCH pg 26.0 35.0 32.3 FINAL [facility] [place], [address] [facility] [address] [place] [id number] 0 Phone: () - 12/07 CBC w/ auto diff MCHC g/dL 30.0 35.0 33.2 FINAL [facility] [place], [address] [place] [id number] 0 Phone: () - 12/07 CBC w/ auto diff MPV fL 9.5 13.4 8.9 Low FINAL [facility] [place], [address] [place] [id number] 0 Phone: () - 12/07 CBC w/ auto diff RDW % 11.4 16.1 12.70 FINAL [facility] [place], [address] [place] [id number] 0 Phone: () - 12/12 iSTAT Na+/K +/Cl- panel Sodiu m, iSTAT mmol/L 138.0 146.0 137 Low Reference range adjusted 0 with implement ation of I-Stat 8+ cartridge . FINAL Nicole Ya Nini [facility] [place], [address] [place] [id number] 0 Phone: () - 12/12 iSTAT Na+/K +/Cl- panel Potas sium, iSTAT mmol/L 3.5 4.9 3.9 Reference range adjusted 0 with implement ation of I-Stat 8+ cartridge . FINAL [facility] [place], [address] [place] [id number] 0 Phone: () - 12/12 iSTAT Na+/K +/Cl- panel Chlor rakan, iSTAT mmol/L 98.0 109.0 99 Reference range adjusted 0 with implement ation of I-Stat 8+ cartridge . FINAL [facility] [place], [address] [place] [id number] 0 Phone: () - 12/12 CBC w/ auto diff WBC K/uL 3.0 8.9 2.0 Low FINAL Nicole Ya Nini [facility] [place], [address] [place] [id number] 0 Phone: () - 12/12 CBC w/ auto diff HGB g/dL 11.3 15.2 11.2 Low FINAL [facility] [place], [address] [place] [id number] 0 Phone: () - 12/12 CBC w/ auto diff PLT K/uL 113.0 364.0 27 Critica l hematol ogy result obtaine d Criti todd Low FINAL [facility] [place], [address] [place] [id number] 0 Phone: () - 12/12 CBC w/ auto diff Plate let, immat ure, fract ion % 0.9 11.2 7.0 FINAL [facility] [place], [address] [place] [id number] 0 Phone: () - 12/12 CBC w/ auto diff Augustus # (ANC) K/uL 1.6 6.6 1.1 Low FINAL [facility] [place], [address] [place] [id number] 0 Phone: () - 12/12 CBC w/ auto diff Augustus % % 43.0 74.0 56.0 FINAL [facility] [place], [address] [place] [id number] 0 Phone: () - 12/12 CBC w/ auto diff IG % % 0.0 0.5 3.0 High FINAL [facility] [place], [address] [place] [id number] 0 Phone: () - 12/12 CBC w/ auto diff IG # K/uL 0.0 0.03 0.06 High FINAL [facility] [place], [address] [place] [id number] 0 Phone: () - 12/12 CBC w/ auto diff LY % % 14.0 41.0 35.5 FINAL [facility] [place], [address] [place] [id number] 0 Phone: () - 12/12 CBC w/ auto diff MO % % 6.0 15.0 2.0 Low FINAL [facility] [place], [address] [place] [id number] 0 Phone: () - 12/12 CBC w/ auto diff EO % % 0.0 7.0 1.0 FINAL [facility] [place], [address] [place] [id number] 0 Phone: () - 12/12 CBC w/ auto diff BA % % 0.0 2.0 2.5 High FINAL [facility] [place], [address] [place] [id number] 0 Phone: () - 12/12 CBC w/ auto diff LY # K/uL 0.4 3.6 0.7 FINAL [facility] [place], [address] [place] [id number] 0 Phone: () - 12/12 CBC w/ auto diff MO # K/uL 0.2 1.3 0.0 Low FINAL [facility] [place], [address] [place] [id number] 0 Phone: () - 12/12 CBC w/ auto diff EO # K/uL 0.0 0.6 0.0 FINAL [facility] [place], [address] [place] [id number] 0 Phone: () - 12/12 CBC w/ auto diff BA # K/uL 0.0 0.2 0.1 FINAL [facility] [place], [address] [place] [id number] 0 Phone: () - 12/12 CBC w/ auto diff NRBC % #/100W BC 0.0 0.2 1.0 High FINAL Nicole Ya Nini [facility] - [place], [address] [place] [id number] 0 Phone: () - 12/12 CBC w/ auto diff RBC M/uL 3.9 5.1 3.51 Low FINAL Nicole Ya Nini [facility] - [place], [address] [place] [id number] 0 Phone: () - 12/12 CBC w/ auto diff HCT % 35.0 48.0 33.7 Low FINAL Nicole Ya Nini [facility] - [place], [address] [place] [id number] 0 Phone: () - 12/12 CBC w/ auto diff MCV fL 80.0 104.0 96.0 FINAL Nicole Ya Mathewdamaris mu[facility] - [place], [address] [place] [id number] 0 Phone: () - 12/12 CBC w/ auto diff MCH pg 26.0 35.0 31.9 FINAL Nicole Ya Nini [facility] - [place], [address] [place] [id number] 0 Phone: () - 12/12 CBC w/ auto diff MCHC g/dL 30.0 35.0 33.2 FINAL Nicole Ya Mathewdamaris mu[facility] - [place], [address] [place] [id number] 0 Phone: () - 12/12 CBC w/ auto diff MPV fL 9.5 13.4 11.1 FINAL Nicole Ya Mathewdamaris [facility] - [place], [address] [place] [id number] 0 Phone: () - 12/12 CBC w/ auto diff RDW % 11.4 16.1 13.00 FINAL Nicole Ya Mathewdamaris [facility] - [place], [address] [place] [id number] 0 Phone: () - 12/27 CBC w/ auto diff WBC K/uL 3.0 8.9 6.3 FINAL Nicole [facility] - [place], [address] [facility] [address] [facility] [place] [id number] 0 Phone: () - 12/27 CBC w/ auto diff HGB g/dL 11.3 15.2 10.2 Low FINAL Nicole [facility] - [place], [address] [facility] [facility] [place] [id number] 0 Phone: () - 12/27 CBC w/ auto diff PLT K/uL 113.0 364.0 108 Low FINAL Nicole Ya Nini [facility] - [place], [address] [facility] [place] [id number] 0 Phone: () - 12/27 CBC w/ auto diff Augustus # (ANC) K/uL 1.6 6.6 3.8 FINAL Nicole Felton Nini mu[facility] - [place], [address] [facility] [facility] [address] [place] [id number] 0 Phone: () - 12/27 CBC w/ auto diff Augustus % % 43.0 74.0 60.1 FINAL Nicole Felton Nini mu[facility] - [place], [address] [facility] [address] [place] [id number] 0 Phone: () - 12/27 CBC w/ auto diff IG % % 0.0 0.5 0.6 High FINAL Nicole Ya Nini [facility] - [place], [address] [place] [id number] 0 Phone: () - 12/27 CBC w/ auto diff IG # K/uL 0.0 0.03 0.04 High FINAL Nicole [facility] [place], [address] [place] [id number] 0 Phone: () - 12/27 CBC w/ auto diff LY % % 14.0 41.0 25.1 FINAL Nicole Ya Nini mu[facility] - [place], [address] [place] [id number] 0 Phone: () - 12/27 CBC w/ auto diff MO % % 6.0 15.0 13.7 FINAL Nicole [facility] - [place], [address] [place] [id number] 0 Phone: () - 12/27 CBC w/ auto diff EO % % 0.0 7.0 0.2 FINAL Nicole [facility] [place], [address] [place] [id number] 0 Phone: () - 12/27 CBC w/ auto diff BA % % 0.0 2.0 0.3 FINAL Nicole [facility] [place], [address] [place] [id number] 0 Phone: () - 12/27 CBC w/ auto diff LY # K/uL 0.4 3.6 1.6 FINAL Nicole [facility] - [place], [address] [place] [id number] 0 Phone: () - 12/27 CBC w/ auto diff MO # K/uL 0.2 1.3 0.9 FINAL Nicole [facility] - [place], [address] [place] [id number] 0 Phone: () - 12/27 CBC w/ auto diff EO # K/uL 0.0 0.6 0.0 FINAL Nicole [facility] [place], [address] [place] [id number] 0 Phone: () - 12/27 CBC w/ auto diff BA # K/uL 0.0 0.2 0.0 FINAL [facility] - [place], [address] [place] [id number] 0 Phone: () - 12/27 CBC w/ auto diff NRBC % #/100W BC 0.0 0.2 0.0 FINAL [facility] [place], [address] [place] [id number] 0 Phone: () - 12/27 CBC w/ auto diff RBC M/uL 3.9 5.1 3.18 Low FINAL Nicole [facility] [place], [address] [place] [id number] 0 Phone: () - 12/27 CBC w/ auto diff HCT % 35.0 48.0 32.2 Low FINAL Nicole [facility] [place], [address] [place] [id number] 0 Phone: () - 12/27 CBC w/ auto diff MCV fL 80.0 104.0 101.3 FINAL Nicole [facility] [place], [address] [place] [id number] 0 Phone: () - 12/27 CBC w/ auto diff MCH pg 26.0 35.0 32.1 FINAL Nicole [facility] [place], [address] [place] [id number] 0 Phone: () - 12/27 CBC w/ auto diff MCHC g/dL 30.0 35.0 31.7 FINAL Nicole [facility] [place], [address] [place] [id number] 0 Phone: () - 12/27 CBC w/ auto diff MPV fL 9.5 13.4 8.8 Low FINAL Nicole [facility] [place], [address] [place] [id number] 0 Phone: () - 12/27 CBC w/ auto diff RDW % 11.4 16.1 15.80 FINAL Nicole [facility] [place], [address] [address] [place] [phone] 0 Phone: () - 12/27 iSTAT creat inine panel Creat inine , iSTAT mg/dl 0.6 1.3 1.0 FINAL Nicole muñoz [facility] - [place], [address] [facility] [address] [facility] [place] [phone] 0 Phone: () - 12/27 iSTAT creat inine panel GFR estim ate ml/min /1.73m ^2 61.0 GFR is calculate d using the CKD-EPI equation. FINAL Nicole muñoz [facility] - [place], [address] [facility] [address] [facility] [place] [phone] 0 Phone: () - 12/27 CMP Album in g/dL 3.2 5.2 3.7 FINAL Nicole muñoz [facility] [address] [facility] [address] [place] [address] [phone] 0 Phone: () - 12/27 CMP Alkal ine phosp hatas e U/L 46.0 116.0 94 FINAL Nicole muñoz [place] [address] [id number] 0 Phone: () - 12/27 CMP ALT/S GPT U/L 7.0 40.0 33 FINAL Nicole muñoz [place] [address] [id number] 0 Phone: () - 12/27 CMP AST/S GOT U/L 13.0 40.0 21 FINAL Nicole muñoz [place] [address] [id number] 0 Phone: () - 12/27 CMP BUN mg/dL 9.0 23.0 8.0 Low FINAL Nicole muñoz [place] [address] [id number] 0 Phone: () - 12/27 CMP Calci um mg/dL 8.7 10.4 8.5 Low FINAL Nicole muñoz [place] [address] [place] [address] [id number] 0 Phone: () - 12/27 CMP Chlor rakan mmol/L 96.0 114.0 114 FINAL Nicole Ya [place] [address] [phone] 0 Phone: () - 12/27 CMP CO2 [...] 96 hour stability window. FINAL Nicole Terrazas [place] [address] [phone] 0 Phone: () - 12/27 CMP Creat inine mg/dL 0.5 1.2 0.89 FINAL Nicole muñoz [place] [address] [id number] 0 Phone: () - 12/27 CMP GFR estim ate ml/min /1.73m ^2 70.1 GFR is calculate d using the CKD-EPI equation. FINAL Nicole muñoz [place] [address] [phone] 0 Phone: () - 12/27 CMP Gluco se mg/dL 73.0 126.0 92 FINAL Nicole muñoz [place] [address] [id number] 0 Phone: () - 12/27 CMP Potas sium mmol/L 3.5 5.1 4.3 FINAL Nicole muñoz [place] [address] [id number] 0 Phone: () - 12/27 CMP Sodiu m mmol/L 136.0 145.0 145 FINAL Nicole Carmona toni [place] [address] [id number] 0 Phone: () - 12/27 CMP Bilir ubin, total mg/dL 0.3 1.2 0.5 FINAL Nicole muñoz [place] [address] [id number] 0 Phone: () - 12/27 CMP Total prote in g/dL 5.7 8.2 5.5 Low FINAL Nicole muñoz [facility] - [place], [address] [place] [id number] 0 Phone: () - 01/18 iSTAT creat inine panel Creat inine , iSTAT mg/dl 0.6 1.3 0.8 FINAL Nicole muñoz [facility] - [place], [address] [place] [id number] 0 Phone: () - 01/18 iSTAT creat inine panel GFR estim ate ml/min /1.73m ^2 79.7 GFR is calculate d using the CKD-EPI equation. FINAL Nicole muñoz [facility] - [place], [address] [place] [id number] 0 Phone: () - 01/18 CBC w/ auto diff WBC K/uL 3.0 8.9 12.6 High FINAL Nicole muñoz [facility] - [place], [address] [place] [id number] 0 Phone: () - 01/18 CBC w/ auto diff HGB g/dL 11.3 15.2 9.7 Low FINAL Nicole muñoz [facility] - [place], [address] [place] [id number] 0 Phone: () - 01/18 CBC w/ auto diff PLT K/uL 113.0 364.0 124 FINAL Nicole muñoz [facility] - [place], [address] [place] [phone] 0 Phone: () - 01/18 CBC w/ auto diff Augustus # (ANC) K/uL 1.6 6.6 10.7 High FINAL Nicole Terrazas a [facility] - [place], [address] [place] [id number] 0 Phone: () - 01/18 CBC w/ auto diff Augustus % % 43.0 74.0 84.3 High FINAL Nicole Ya [place] [facility] - [place], [address] [place] [id number] 0 Phone: () - 01/18 CBC w/ auto diff IG % % 0.0 0.5 4.4 High FINAL Nicole Terrazas a [facility] - [place], [address] [place] [id number] 0 Phone: () - 01/18 CBC w/ auto diff IG # K/uL 0.0 0.03 0.56 High FINAL Nicole Terrazas a [facility] - [place], [address] [place] [id number] 0 Phone: () - 01/18 CBC w/ auto diff LY % % 14.0 41.0 8.5 Low FINAL Nicole Terrazas a [facility] - [place], [address] [place] [id number] 0 Phone: () - 01/18 CBC w/ auto diff MO % % 6.0 15.0 2.6 Low FINAL Nicole Terrazas a [facility] - [place], [address] [place] [id number] 0 Phone: () - 01/18 CBC w/ auto diff EO % % 0.0 7.0 0.0 FINAL Nicole Terrazas a [facility] - [place], [address] [place] [id number] 0 Phone: () - 01/18 CBC w/ auto diff BA % % 0.0 2.0 0.2 FINAL Nicole Terrazas a [facility] - [place], [address] [place] [id number] 0 Phone: () - 01/18 CBC w/ auto diff LY # K/uL 0.4 3.6 1.1 FINAL Nicole Carmonaot a [facility] - [place], [address] [place] [id number] 0 Phone: () - 01/18 CBC w/ auto diff MO # K/uL 0.2 1.3 0.3 FINAL Nicole Carmonaot a [facility] - [place], [address] [place] [id number] 0 Phone: () - 01/18 CBC w/ auto diff EO # K/uL 0.0 0.6 0.0 FINAL Nicole Carmonaot a [facility] - [place], [address] [place] [id number] 0 Phone: () - 01/18 CBC w/ auto diff BA # K/uL 0.0 0.2 0.0 FINAL Nicole Carmonaot a [facility] - [place], [address] [place] [id number] 0 Phone: () - 01/18 CBC w/ auto diff NRBC % #/100W BC 0.0 0.2 0.5 High FINAL Nicole Carmonaot a [facility] - [place], [address] [place] [id number] 0 Phone: () - 01/18 CBC w/ auto diff RBC M/uL 3.9 5.1 2.85 Low FINAL Nicole Carmonaot a [facility] - [place], [address] [place] [id number] 0 Phone: () - 01/18 CBC w/ auto diff HCT % 35.0 48.0 29.8 Low FINAL Nicole Carmonaot a [facility] - [place], [address] [place] [id number] 0 Phone: () - 01/18 CBC w/ auto diff MCV fL 80.0 104.0 104.6 High FINAL Nicole Carmonaot a [facility] - [place], [address] [place] [id number] 0 Phone: () - 01/18 CBC w/ auto diff MCH pg 26.0 35.0 34.0 FINAL Nicole Carmonaot a [facility] - [place], [address] [place] [id number] 0 Phone: () - 01/18 CBC w/ auto diff MCHC g/dL 30.0 35.0 32.6 FINAL Nicole muñoz [facility] - [place], [address] [facility] [address] [place] [id number] 0 Phone: () - 01/18 CBC w/ auto diff MPV fL 9.5 13.4 9.0 Low FINAL Nicole muñoz On[facility] - [place], [address] [facility] [address] [place] [id number] 0 Phone: () - 01/18 CBC w/ auto diff RDW % 11.4 16.1 19.00 High FINAL Nicole muñoz On[facility] - [place], [address] [facility] [address] [facility] [place] [id number] 0 Phone: () - 01/18 CMP Album in g/dL 3.2 5.2 3.7 FINAL Nicole muñoz [facility], [address] [place] [address] [id number] 0 Phone: () - 01/18 CMP Alkal ine phosp hatas e U/L 46.0 116.0 94 FINAL Nicole Carmona a [facility], [address] [place] [address] [id number] 0 Phone: () - 01/18 CMP ALT/S GPT U/L 7.0 40.0 33 FINAL Nicole Carmona a [facility], [address] [place] [address] [id number] 0 Phone: () - 01/18 CMP AST/S GOT U/L 13.0 40.0 18 FINAL Nicole Terrazas a [facility], [address] [place] [id number] 0 Phone: () - 01/18 CMP BUN mg/dL 9.0 23.0 10.0 FINAL Nicole Carmona a [facility], [address] [facility] [id number] 0 Phone: () - 01/18 CMP Calci um mg/dL 8.7 10.4 9.0 FINAL Nicole Carmona a [facility], [address] [id number] 0 Phone: () - 01/18 CMP Chlor rakan mmol/L 96.0 114.0 108 FINAL Nicole muñoz [place] [address] [id number] 0 Phone: () - 01/18 CMP CO2 [...] 96 hour stability window. FINAL Nicole muñoz [address] [phone] 0 Phone: () - 01/18 CMP Creat inine mg/dL 0.5 1.2 0.80 FINAL Nicole muñoz [address] [id number] 0 Phone: () - 01/18 CMP GFR estim ate ml/min /1.73m ^2 79.7 GFR is calculate d using the CKD-EPI equation. FINAL Nicole muñoz [place] [address] [id number] 0 Phone: () - 01/18 CMP Gluco se mg/dL 73.0 126.0 156 High FINAL Nicole muñoz [place] [address] [id number] 0 Phone: () - 01/18 CMP Potas sium mmol/L 3.5 5.1 4.7 FINAL [place] [address] [id number] 0 Phone: () - 01/18 CMP Sodiu m mmol/L 136.0 145.0 145 FINAL Nicole muñoz [place] [address] [id number] 0 Phone: () - 01/18 CMP Bilir ubin, total mg/dL 0.3 1.2 0.5 FINAL Nicole muñoz [facility] - [place], [address] [place] [id number] 0 Phone: () - 01/18 CMP Total prote in g/dL 5.7 8.2 5.6 Low FINAL Nicole muñoz [facility] - [place], [address] [place] [id number] 0 Phone: () - 01/29 iSTAT Na+/K +/Cl- panel Sodiu m, iSTAT mmol/L 138.0 146.0 134 Low Reference range adjusted 0 with implement ation of I-Stat 8+ cartridge . FINAL Nicole muñoz [facility] - [place], [address] [facility] [address] [place] [id number] 0 Phone: () - 01/29 iSTAT Na+/K +/Cl- panel Potas sium, iSTAT mmol/L 3.5 4.9 3.4 Low Reference range adjusted 0 with implement ation of I-Stat 8+ cartridge . FINAL Nicole muñoz [facility] - [place], [address] [facility] [address] [place] [id number] 0 Phone: () - 01/29 iSTAT Na+/K +/Cl- panel Chlor rakan, iSTAT mmol/L 98.0 109.0 97 Low Reference range adjusted 0 with implement ation of I-Stat 8+ cartridge . FINAL Nicole muñoz [facility] - [place], [address] [place] [id number] 0 Phone: () - 01/29 CBC w/ auto diff WBC K/uL 3.0 8.9 19.0 High FINAL Nicole muñoz [facility] - [place], [address] [facility] [address] [place] [id number] 0 Phone: () - 01/29 CBC w/ auto diff HGB g/dL 11.3 15.2 8.8 Low FINAL Nicole muñoz [facility] - [place], [address] [place] [id number] 0 Phone: () - 01/29 CBC w/ auto diff PLT K/uL 113.0 364.0 59 Low FINAL Nicole Carmonaot a [facility] - [place], [address] [place] [id number] 0 Phone: () - 01/29 CBC w/ auto diff Augustus # (ANC) K/uL 1.6 6.6 16.7 High FINAL Nicole Carmonaot a [facility] - [place], [address] [place] [id number] 0 Phone: () - 01/29 CBC w/ auto diff Augustus % % 43.0 74.0 88.0 High FINAL Nicole Ay Mathewot a [facility] - [place], [address] [place] [id number] 0 Phone: () - 01/29 CBC w/ auto diff IG % % 0.0 0.5 1.9 High FINAL Nicole Ya Nini a [facility] - [place], [address] [place] [id number] 0 Phone: () - 01/29 CBC w/ auto diff IG # K/uL 0.0 0.03 0.36 High FINAL Nicole Ya Nini a [facility] - [place], [address] [place] [id number] 0 Phone: () - 01/29 CBC w/ auto diff LY % % 14.0 41.0 5.1 Low FINAL Nicole Carmonaot a [facility] - [place], [address] [place] [id number] 0 Phone: () - 01/29 CBC w/ auto diff MO % % 6.0 15.0 4.8 Low FINAL Nicole Carmonaot a [facility] - [place], [address] [place] [id number] 0 Phone: () - 01/29 CBC w/ auto diff EO % % 0.0 7.0 0.0 FINAL Nicole Carmonaot a [facility] - [place], [address] [place] [id number] 0 Phone: () - 01/29 CBC w/ auto diff BA % % 0.0 2.0 0.2 FINAL Nicole Terrazas a [facility] - [place], [address] [place] [id number] 0 Phone: () - 01/29 CBC w/ auto diff LY # K/uL 0.4 3.6 1.0 FINAL Nicole Terrazas a [facility] - [place], [address] [place] [id number] 0 Phone: () - 01/29 CBC w/ auto diff MO # K/uL 0.2 1.3 0.9 FINAL Nicole Terrazas a [facility] - [place], [address] [place] [id number] 0 Phone: () - 01/29 CBC w/ auto diff EO # K/uL 0.0 0.6 0.0 FINAL Nicole Terrazas a [facility] - [place], [address] [place] [id number] 0 Phone: () - 01/29 CBC w/ auto diff BA # K/uL 0.0 0.2 0.0 FINAL Nicole Terrazas a [facility] - [place], [address] [place] [id number] 0 Phone: () - 01/29 CBC w/ auto diff NRBC % #/100W BC 0.0 0.2 0.0 FINAL Nicole Terrazas a [facility] - [place], [address] [place] [id number] 0 Phone: () - 01/29 CBC w/ auto diff RBC M/uL 3.9 5.1 2.58 Low FINAL Nicole Carmonaot a [facility] - [place], [address] [place] [id number] 0 Phone: () - 01/29 CBC w/ auto diff HCT % 35.0 48.0 27.0 Low FINAL Nicole Carmonaot a [facility] - [place], [address] [place] [id number] 0 Phone: () - 01/29 CBC w/ auto diff MCV fL 80.0 104.0 104.7 High FINAL Nicole Ya [place]wot a [facility] - [place], [address] [place] [id number] 0 Phone: () - 01/29 CBC w/ auto diff MCH pg 26.0 35.0 34.1 FINAL Nicole Felton [place] a [facility] - [place], [address] [place] [id number] 0 Phone: () - 01/29 CBC w/ auto diff MCHC g/dL 30.0 35.0 32.6 FINAL Nicole Felton [place] a [facility] - [place], [address] [place] [id number] 0 Phone: () - 01/29 CBC w/ auto diff MPV fL 9.5 13.4 9.3 Low FINAL Nicole Felton Nini muñoz [facility] - [place], [address] [place] [id number] 0 Phone: () - 01/29 CBC w/ auto diff RDW % 11.4 16.1 17.80 High FINAL Nicole Felton [place] a [facility] - [place], [address] [place] [id number] 0 Phone: () - 02/05 CBC w/ auto diff BA # K/uL 0.0 0.2 0.0 FINAL Nicole Felton [place] a [facility] - [place], [address] [place] [id number] 0 Phone: () - 02/05 CBC w/ auto diff NRBC % #/100W BC 0.0 0.2 0.1 FINAL Nicole Felton [place] a [facility] - [place], [address] [place] [id number] 0 Phone: () - 02/05 CBC w/ auto diff RBC M/uL 3.9 5.1 2.96 Low FINAL Nicole Felton Mathewdamaris muñoz [facility] - [place], [address] [place] [id number] 0 Phone: () - 02/05 CBC w/ auto diff HCT % 35.0 48.0 30.3 Low FINAL Nicole Felton Mathewdamaris muñoz [facility] - [place], [address] [place] [id number] 0 Phone: () - 02/05 CBC w/ auto diff MCV fL 80.0 104.0 102.4 FINAL Nicole Ya Mathewdamaris muñoz [facility] - [place], [address] [place] [id number] 0 Phone: () - 02/05 CBC w/ auto diff MCH pg 26.0 35.0 33.8 FINAL Nicole Ya Mathewdamaris muñoz [facility] - [place], [address] [facility] [address] [place] [id number] 0 Phone: () - 02/05 CBC w/ auto diff MCHC g/dL 30.0 35.0 33.0 FINAL Nicole Ya Mathewdamaris muñoz On[facility] - [place], [address] [place] [id number] 0 Phone: () - 02/05 CBC w/ auto diff MPV fL 9.5 13.4 8.5 Low FINAL Nicole Ya Mathewdamaris muñoz On[facility] - [place], [address] [place] [id number] 0 Phone: () - 02/05 CBC w/ auto diff RDW % 11.4 16.1 16.10 FINAL Nicole Ya Mathewdamaris muñoz On[facility] - [place], [address] [place] [id number] 0 Phone: () - 02/05 CBC w/ auto diff WBC K/uL 3.0 8.9 16.6 High FINAL Nicole Ya Mathewdamaris muñoz On[facility] - [place], [address] [place] [id number] 0 Phone: () - 02/05 CBC w/ auto diff HGB g/dL 11.3 15.2 10.0 Low FINAL Nicole Felton [place] a [facility] - [place], [address] [place] [id number] 0 Phone: () - 02/05 CBC w/ auto diff PLT K/uL 113.0 364.0 122 FINAL Nicole Ya [place] a [facility] - [place], [address] [place] [id number] 0 Phone: () - 02/05 CBC w/ auto diff Augustus # (ANC) K/uL 1.6 6.6 12.9 High FINAL Nicole Ya [place] a [facility] - [place], [address] [place] [id number] 0 Phone: () - 02/05 CBC w/ auto diff Augustus % % 43.0 74.0 77.5 High FINAL Nicole Ya Mathewdamaris a [facility] - [place], [address] [place] [id number] 0 Phone: () - 02/05 CBC w/ auto diff IG % % 0.0 0.5 1.1 High FINAL Nicole Ya [place] a [facility] - [place], [address] [place] [id number] 0 Phone: () - 02/05 CBC w/ auto diff IG # K/uL 0.0 0.03 0.19 High FINAL Nicole Felton [place] a [facility] - [place], [address] [place] [id number] 0 Phone: () - 02/05 CBC w/ auto diff LY % % 14.0 41.0 11.4 Low FINAL Nicole Ya [place] a [facility] - [place], [address] [place] [id number] 0 Phone: () - 02/05 CBC w/ auto diff MO % % 6.0 15.0 9.9 FINAL Nicole Terrazas a [facility] - [place], [address] [place] [id number] 0 Phone: () - 02/05 CBC w/ auto diff EO % % 0.0 7.0 0.0 FINAL Nicole Terrazas a [facility] - [place], [address] [place] [id number] 0 Phone: () - 02/05 CBC w/ auto diff BA % % 0.0 2.0 0.1 FINAL Nicole muñoz [facility] - [place], [address] [place] [id number] 0 Phone: () - 02/05 CBC w/ auto diff LY # K/uL 0.4 3.6 1.9 FINAL Nicole muñoz [facility] - [place], [address] [place] [id number] 0 Phone: () - 02/05 CBC w/ auto diff MO # K/uL 0.2 1.3 1.6 High FINAL Nicole muñoz [facility] - [place], [address] [place] [id number] 0 Phone: () - 02/05 CBC w/ auto diff EO # K/uL 0.0 0.6 0.0 FINAL Nicole muñoz [facility] - [place], [address] [place] [id number] 0 Phone: () - 02/05 iSTAT Na+/K +/Cl- panel Sodiu m, iSTAT mmol/L 138.0 146.0 134 Low Reference range adjusted 0 with implement ation of I-Stat 8+ cartridge . FINAL Nicole muñoz [facility] - [place], [address] [place] [id number] 0 Phone: () - 02/05 iSTAT Na+/K +/Cl- panel Potas sium, iSTAT mmol/L 3.5 4.9 3.1 Low Reference range adjusted 0 with implement ation of I-Stat 8+ cartridge . FINAL Nicole muñoz [facility] - [place], [address] [facility] [address] [place] [id number] 0 Phone: () - 02/05 iSTAT Na+/K +/Cl- panel Chlor rakan, iSTAT mmol/L 98.0 109.0 95 Low Reference range adjusted 0 with implement ation of I-Stat 8+ cartridge . FINAL Nicole muñoz [facility] - [place], [address] [facility] [address] [place] [id number] 0 Phone: () - 02/05 iSTAT creat inine panel Creat inine , iSTAT mg/dl 0.6 1.3 0.8 FINAL Tiara muñoz [facility] - [place], [address] [facility] [address] [place] [id number] 0 Phone: () - 02/05 iSTAT creat inine panel GFR estim ate ml/min /1.73m ^2 79.7 GFR is calculate d using the CKD-EPI equation. FINAL Tiara muñoz [facility] - [place], [address] [facility] [address] [place] [id number] 0 Phone: () - 02/05 Magne sium, mg/dL mg/dL 1.5 2.3 1.4 Low FINAL Tiara muñoz [facility] - [place], [address] [place] [id number] 0 Phone: () - 02/07 iSTAT creat inine panel Creat inine , iSTAT mg/dl 0.6 1.3 1.0 FINAL Tiara muñoz [facility] - [place], [address] [facility] [address] [place] [id number] 0 Phone: () - 02/07 iSTAT creat inine panel GFR estim ate ml/min /1.73m ^2 61.0 GFR is calculate d using the CKD-EPI equation. FINAL Tiara muñoz [facility] - [place], [address] [facility] [address] [place] [id number] 0 Phone: () - 02/07 iSTAT Na+/K +/Cl- panel Sodiu m, iSTAT mmol/L 138.0 146.0 137 Low Reference range adjusted 0 with implement ation of I-Stat 8+ cartridge . FINAL Tiara Carmona toni [facility] - [place], [address] [facility] [address] [place] [id number] 0 Phone: () - 02/07 iSTAT Na+/K +/Cl- panel Potas sium, iSTAT mmol/L 3.5 4.9 3.2 Low Reference range adjusted 0 with implement ation of I-Stat 8+ cartridge . FINAL Tiara Carmona toni [facility] - [place], [address] [facility] [address] [facility] [place] [id number] 0 Phone: () - 02/07 iSTAT Na+/K +/Cl- panel Chlor rakan, iSTAT mmol/L 98.0 109.0 100 Reference range adjusted 0 with implement ation of I-Stat 8+ cartridge . FINAL Tiara Carmona toni [facility] - [place], [address] [facility] [address] [facility] [place] [id number] 0 Phone: () - 02/07 Magne sium, mg/dL mg/dL 1.5 2.3 1.5 FINAL [facility] [place], [address] [place] [id number] 0 Phone: () - 02/08 Clost ridiu [...] been establish ed.This assay was performed by [employer] (R) PCR.The performan ce character istics of this assay havebeen determine d by [facility]. Performan cecharact eristics refer to the analytica l performan ceof the test.For additiona l informati on, please refer tohttp:// education .[employer]/faq/F AQ136(Thi s link is being provided forinform ational/e ducationa l purposes only.)[CA ] FINAL Tiara NEGRETE [facility] [address] [place] [id number] 4 02/08 Clost ridiu m diffi cile toxin PCR panel CLOST RIDIU M DIFFI CILE TOXIN /GDH W/REF L TO PCR SEE NOTE CLOSTRIDI UM DIFFICILE TOXIN/GDH W/REFL TO PCRMicro Number: [id number] est Status: FinalSpec imen Source: StoolSpec imen Quality: AdequateG DH Antigen: DetectedT oxin A and B: Not DetectedC OMMENT: Indetermi vikram. Specimen forwarded fortoxige cesar C. difficile PCR testing.F or additiona l informati on, please refer tohttp:// education .[employer]/faq/F AQ136(Thi s link is being provided forinform ational/e ducationa l purposes only.)[CB ] FINAL Tiara NEGRETE [facility] CeQur[facility] [address] [facility] [id number] 4 02/08 CMP Album in g/dL 3.2 5.2 3.2 FINAL Nicole Carmona a [facility], [address] [facility] [address] [place] [address] [id number] 0 Phone: () - 02/08 CMP Alkal ine phosp hatas e U/L 46.0 116.0 85 FINAL Nicole Terrazas a Oncology [facility], [address] [facility] [address] [place] [address] [id number] 0 Phone: () - 02/08 CMP ALT/S GPT U/L 7.0 40.0 24 FINAL Nicole [facility], [facility] [address] [place] [address] [facility] [id number] 0 Phone: () - 02/08 CMP AST/S GOT U/L 13.0 40.0 16 FINAL [facility] [address] [address] [facility] [address] [facility] [id number] 0 Phone: () - 02/08 CMP BUN mg/dL 9.0 23.0 8.0 Low FINAL [place] [address] [facility] 100 [facility] [id number] 0 Phone: () - 02/08 CMP Calci um mg/dL 8.7 10.4 8.3 Low FINAL Nicole [place] [address] [place] [address] [facility] [address] [facility] [id number] 0 Phone: () - 02/08 CMP Chlor rakan mmol/L 96.0 114.0 111 FINAL Nicole [place] [address] [address] [place] [address] [id number] 0 Phone: () - 02/08 CMP CO2 [...] 96 hour stability window. FINAL Nicole Terrazas [facility], [facility] [address] [place] [address] [place] [address] [id number] 0 Phone: () - 02/08 CMP Creat inine mg/dL 0.5 1.2 0.86 FINAL [place] [address] [place] [address] [id number] 0 Phone: () - 02/08 CMP GFR estim ate ml/min /1.73m ^2 73.0 GFR is calculate d using the CKD-EPI equation. FINAL Nicole Carm[facility]Bob [facility], [address] [facility] [address] [phone] 0 Phone: () - 02/08 CMP Gluco se mg/dL 73.0 126.0 129 High FINAL Nicole muñoz [facility], [address] [place] [address] [id number] 0 Phone: () - 02/08 CMP Potas sium mmol/L 3.5 5.1 3.6 FINAL Nicole muñoz [facility], [address] [id number] 0 Phone: () - 02/08 CMP Sodiu m mmol/L 136.0 145.0 144 FINAL Nicole muñoz [facility], [address] [id number] 0 Phone: () - 02/08 CMP Bilir ubin, total mg/dL 0.3 1.2 0.3 FINAL Nicole muñoz [facility], [address] [id number] 0 Phone: () - 02/08 CMP Total prote in g/dL 5.7 8.2 4.8 Low FINAL Nicole muñoz [facility], [address] [id number] 0 Phone: () - 02/08 CBC w/ auto diff WBC K/uL 3.0 8.9 17.2 High FINAL Nicole muñoz [facility] [place], [address] [facility] [address] [place] [facility] [id number] 0 Phone: () - 02/08 CBC w/ auto diff HGB g/dL 11.3 15.2 7.9 Critica l hematol ogy result obtaine d Criti todd Low FINAL Nicole Terrazas a [facility] [place], [address] [place] [id number] 0 Phone: () - 02/08 CBC w/ auto diff PLT K/uL 113.0 364.0 123 FINAL Nicole muñoz [facility] [place], [address] [facility] [address] [place] [facility] [id number] 0 Phone: () - 02/08 CBC w/ auto diff Augustus # (ANC) K/uL 1.6 6.6 13.8 High FINAL Nicole Terrazas a [facility] [place], [address] [place] [id number] 0 Phone: () - 02/08 CBC w/ auto diff Augustus % % 43.0 74.0 80.0 High FINAL Nicole Terrazas a [facility] [place], [address] [place] [id number] 0 Phone: () - 02/08 CBC w/ auto diff IG % % 0.0 0.5 2.2 High FINAL Nicole muñoz [facility] [place], [address] [place] [id number] 0 Phone: () - 02/08 CBC w/ auto diff IG # K/uL 0.0 0.03 0.38 High FINAL Nicole muñoz [facility] [place], [address] [place] [id number] 0 Phone: () - 02/08 CBC w/ auto diff LY % % 14.0 41.0 9.3 Low FINAL Nicole muñoz [facility] [place], [address] [place] [id number] 0 Phone: () - 02/08 CBC w/ auto diff MO % % 6.0 15.0 8.4 FINAL Nicole muñoz [facility] [place], [address] [place] [id number] 0 Phone: () - 02/08 CBC w/ auto diff EO % % 0.0 7.0 0.0 FINAL Nicole Terrazas a [facility] [place], [address] [place] [id number] 0 Phone: () - 02/08 CBC w/ auto diff BA % % 0.0 2.0 0.1 FINAL Nicole Carmonaot a [facility] [place], [address] [place] [id number] 0 Phone: () - 02/08 CBC w/ auto diff LY # K/uL 0.4 3.6 1.6 FINAL Nicole Carmonaot a [facility] [place], [address] [place] [id number] 0 Phone: () - 02/08 CBC w/ auto diff MO # K/uL 0.2 1.3 1.5 High FINAL Nicole Carmonaot a [facility] [place], [address] [place] [id number] 0 Phone: () - 02/08 CBC w/ auto diff EO # K/uL 0.0 0.6 0.0 FINAL Nicole Carmonaot a [facility] [place], [address] [place] [id number] 0 Phone: () - 02/08 CBC w/ auto diff BA # K/uL 0.0 0.2 0.0 FINAL Nicole Terrazas a [facility] [place], [address] [place] [id number] 0 Phone: () - 02/08 CBC w/ auto diff NRBC % #/100W BC 0.0 0.2 0.3 High FINAL Nicole Carmonaot a [facility] [place], [address] [place] [id number] 0 Phone: () - 02/08 CBC w/ auto diff RBC M/uL 3.9 5.1 2.33 Low FINAL Nicole Carmonaot a [facility] [place], [address] [place] [id number] 0 Phone: () - 02/08 CBC w/ auto diff HCT % 35.0 48.0 24.6 Low FINAL Nicole Carmonaot a [facility] [place], [address] [place] [id number] 0 Phone: () - 02/08 CBC w/ auto diff MCV fL 80.0 104.0 105.6 High FINAL Nicole Terrazas a [facility] [place], [address] [place] [id number] 0 Phone: () - 02/08 CBC w/ auto diff MCH pg 26.0 35.0 33.9 FINAL Nicole muñoz [facility] [place], [address] [place] [id number] 0 Phone: () - 02/08 CBC w/ auto diff MCHC g/dL 30.0 35.0 32.1 FINAL Nicole muñoz [facility] [place], [address] [place] [id number] 0 Phone: () - 02/08 CBC w/ auto diff MPV fL 9.5 13.4 9.1 Low FINAL Nicole muñoz [facility] [place], [address] [place] [id number] 0 Phone: () - 02/08 CBC w/ auto diff RDW % 11.4 16.1 16.70 High FINAL Nicole muñoz [facility] [place], [address] [place] [id number] 0 Phone: () - 02/08 iSTAT creat inine panel Creat inine , iSTAT mg/dl 0.6 1.3 0.8 FINAL Nicole muñoz [facility] [place], [address] [place] [id number] 0 Phone: () - 02/08 iSTAT creat inine panel GFR estim ate ml/min /1.73m ^2 79.7 GFR is calculate d using the CKD-EPI equation. FINAL Nicole muñoz [facility] [place], [address] [place] [id number] 0 Phone: () - 02/12 Magne sium, mg/dL mg/dL 1.5 2.3 1.5 FINAL Nicole muñoz [facility] [place], [address] [place] [id number] 0 Phone: () - 02/12 iSTAT Na+/K +/Cl- panel Sodiu m, iSTAT mmol/L 138.0 146.0 139 Reference range adjusted 0 with implement ation of I-Stat 8+ cartridge . FINAL Nicole Ya Mathewdamaris muñoz [facility] [place], [address] [place] [id number] 0 Phone: () - 02/12 iSTAT Na+/K +/Cl- panel Yolanda sium, iSTAT mmol/L 3.5 4.9 3.8 Reference range adjusted 0 with implement ation of I-Stat 8+ cartridge . FINAL Nicole Ya Mathewdamaris muñoz [facility] [place], [address] [place] [id number] 0 Phone: () - 02/12 iSTAT Na+/K +/Cl- panel Chlor rakan, iSTAT mmol/L 98.0 109.0 100 Reference range adjusted 0 with implement ation of I-Stat 8+ cartridge . FINAL Nicole Ya Mathewdamaris muñoz [facility] [place], [address] [place] [id number] 0 Phone: () - 02/12 CBC w/ auto diff WBC K/uL 3.0 8.9 9.0 High FINAL Nicole Ya Mathewdamaris muñoz [facility] [place], [address] [place] [id number] 0 Phone: () - 02/12 CBC w/ auto diff HGB g/dL 11.3 15.2 8.7 Low FINAL Nicole Ya Mathewdamaris muñoz [facility] [place], [address] [place] [id number] 0 Phone: () - 02/12 CBC w/ auto diff PLT K/uL 113.0 364.0 154 FINAL Nicole Ya Mathewdamaris muñoz [facility] [place], [address] [place] [id number] 0 Phone: () - 02/12 CBC w/ auto diff Augustus # (ANC) K/uL 1.6 6.6 6.5 FINAL Nicole Terrazas a [facility] [place], [address] [place] [id number] 0 Phone: () - 02/12 CBC w/ auto diff Augustus % % 43.0 74.0 72.4 FINAL Nicole Terrazas a [facility] [place], [address] [place] [id number] 0 Phone: () - 02/12 CBC w/ auto diff IG % % 0.0 0.5 0.9 High FINAL Nicole Terrazas a [facility] [place], [address] [place] [id number] 0 Phone: () - 02/12 CBC w/ auto diff IG # K/uL 0.0 0.03 0.08 High FINAL Nicole Carmonaot toni [facility] [place], [address] [place] [id number] 0 Phone: () - 02/12 CBC w/ auto diff LY % % 14.0 41.0 17.0 FINAL Nicole muñoz [facility] [place], [address] [place] [id number] 0 Phone: () - 02/12 CBC w/ auto diff MO % % 6.0 15.0 9.4 FINAL Nicole muñoz [facility] [place], [address] [place] [id number] 0 Phone: () - 02/12 CBC w/ auto diff EO % % 0.0 7.0 0.3 FINAL Nicole Carmonaot a [facility] [place], [address] [place] [id number] 0 Phone: () - 02/12 CBC w/ auto diff BA % % 0.0 2.0 0.0 FINAL Nicole Carmonaot a [facility] [place], [address] [place] [id number] 0 Phone: () - 02/12 CBC w/ auto diff LY # K/uL 0.4 3.6 1.5 FINAL Nicole Ya Nini a [facility] [place], [address] [place] [id number] 0 Phone: () - 02/12 CBC w/ auto diff MO # K/uL 0.2 1.3 0.8 FINAL Nicole Ya Nini muñoz [facility] [place], [address] [place] [id number] 0 Phone: () - 02/12 CBC w/ auto diff EO # K/uL 0.0 0.6 0.0 FINAL Nicole Felton Nini muñoz [facility] [place], [address] [place] [id number] 0 Phone: () - 02/12 CBC w/ auto diff BA # K/uL 0.0 0.2 0.0 FINAL Nicole Felton Nini muñoz [facility] [place], [address] [place] [id number] 0 Phone: () - 02/12 CBC w/ auto diff NRBC % #/100W BC 0.0 0.2 0.0 FINAL Nicole Felton Nini muñoz [facility] [place], [address] [place] [id number] 0 Phone: () - 02/12 CBC w/ auto diff RBC M/uL 3.9 5.1 2.54 Low FINAL Nicole Ya Nini a [facility] [place], [address] [place] [id number] 0 Phone: () - 02/12 CBC w/ auto diff HCT % 35.0 48.0 27.5 Low FINAL Nicole Felton Mathewot a [facility] [place], [address] [place] [id number] 0 Phone: () - 02/12 CBC w/ auto diff MCV fL 80.0 104.0 108.3 High FINAL Nicole Felton Mathewot a [facility] [place], [address] [place] [id number] 0 Phone: () - 02/12 CBC w/ auto diff MCH pg 26.0 35.0 34.3 FINAL Nicole muñoz [facility] [place], [address] [place] [id number] 0 Phone: () - 02/12 CBC w/ auto diff MCHC g/dL 30.0 35.0 31.6 FINAL Nicole muñoz [facility] [place], [address] [place] [id number] 0 Phone: () - 02/12 CBC w/ auto diff MPV fL 9.5 13.4 8.3 Low FINAL Nicole muñoz [facility] [place], [address] [place] [id number] 0 Phone: () - 02/12 CBC w/ auto diff RDW % 11.4 16.1 17.40 High FINAL Nicole muñoz [facility] [place], [address] [place] [id number] 0 Phone: () - 03/01 CMP Album in g/dL 3.2 5.2 3.4 FINAL Nicole muñoz [facility], [address] [place] [id number] 0 Phone: () - 03/01 CMP Alkal ine phosp hatas e U/L 46.0 116.0 89 FINAL Nicole Terrazas a [facility], [address] [place] [id number] 0 Phone: () - 03/01 CMP ALT/S GPT U/L 7.0 40.0 15 FINAL Nicole Terrazas a [facility], [address] [place] [id number] 0 Phone: () - 03/01 CMP AST/S GOT U/L 13.0 40.0 18 FINAL Nicole muñoz [facility], [address] [place] [id number] 0 Phone: () - 03/01 CMP BUN mg/dL 9.0 23.0 9.0 FINAL Nicole muñoz [facility], [address] [facility] [address] [facility] [id number] 0 Phone: () - 03/01 CMP Calci um mg/dL 8.7 10.4 8.5 Low [facility] [address] [facility] [address] [facility] [id number] 0 Phone: () - 03/01 CMP Chlor rakan mmol/L 96.0 114.0 113 FINAL Nicole Terrazas [place] [address] [facility] 100 [facility] [id number] 0 Phone: () - 03/01 CMP CO2 [...] 96 hour stability window. FINAL Nicole muñoz [facility], [facility] [address] [id number] 0 Phone: () - 03/01 CMP Creat inine mg/dL 0.5 1.2 0.98 FINAL Nicole muñoz [place] [address] [id number] 0 Phone: () - 03/01 CMP GFR estim ate ml/min /1.73m ^2 62.4 GFR is calculate d using the CKD-EPI equation. FINAL Nicole muñoz [facility], [address] [facility] [id number] 0 Phone: () - 03/01 CMP Gluco se mg/dL 73.0 126.0 136 High FINAL Nicole muñoz [facility], [address] [facility] [address] [facility] [id number] 0 Phone: () - 03/01 CMP Potas sium mmol/L 3.5 5.1 4.3 FINAL Nicole muñoz [facility], [address] [place] [id number] 0 Phone: () - 03/01 CMP Sodiu m mmol/L 136.0 145.0 147 High FINAL Nicole muñoz [facility], [address] [place] [id number] 0 Phone: () - 03/01 CMP Bilir ubin, total mg/dL 0.3 1.2 0.5 FINAL Nicole muñoz [facility], [address] [facility] [id number] 0 Phone: () - 03/01 CMP Total prote in g/dL 5.7 8.2 5.2 Low FINAL Nicole muñoz [facility], [address] [place] [id number] 0 Phone: () - 03/01 CBC w/ auto diff WBC K/uL 3.0 8.9 4.5 FINAL Nicole muñoz [facility] [place], [address] [facility] [address] [place] [id number] 0 Phone: () - 03/01 CBC w/ auto diff HGB g/dL 11.3 15.2 8.8 Low FINAL Nicole muñoz [facility] [place], [address] [facility] [address] [place] [id number] 0 Phone: () - 03/01 CBC w/ auto diff PLT K/uL 113.0 364.0 154 FINAL Nicole muñoz [facility] [place], [address] [place] [id number] 0 Phone: () - 03/01 CBC w/ auto diff Augustus # (ANC) K/uL 1.6 6.6 2.2 FINAL Nicole muñoz [facility] [place], [address] [place] [id number] 0 Phone: () - 03/01 CBC w/ auto diff Augustus % % 43.0 74.0 49.9 FINAL Nicoledarius muñoz [facility] [place], [address] [place] [id number] 0 Phone: () - 03/01 CBC w/ auto diff IG % % 0.0 0.5 0.7 High FINAL Nicole Ya Nini a [facility] [place], [address] [place] [id number] 0 Phone: () - 03/01 CBC w/ auto diff IG # K/uL 0.0 0.03 0.03 FINAL Nicole Ya Nini a [facility] [place], [address] [place] [id number] 0 Phone: () - 03/01 CBC w/ auto diff LY % % 14.0 41.0 32.0 FINAL Nicole Ya Mathewdamaris toni [facility] [place], [address] [place] [id number] 0 Phone: () - 03/01 CBC w/ auto diff MO % % 6.0 15.0 14.5 FINAL Nicole Ya Mathewdamaris toni [facility] [place], [address] [facility] [address] [place] [id number] 0 Phone: () - 03/01 CBC w/ auto diff EO % % 0.0 7.0 2.5 FINAL Nicole Felton Mathewdamaris muñoz [facility] [place], [address] [place] [id number] 0 Phone: () - 03/01 CBC w/ auto diff BA % % 0.0 2.0 0.4 FINAL Nicole Ya Mathewdamaris muñoz [facility] [place], [address] [place] [id number] 0 Phone: () - 03/01 CBC w/ auto diff LY # K/uL 0.4 3.6 1.4 FINAL Nicole Felton Mathewdamaris muñoz [facility] [place], [address] [place] [id number] 0 Phone: () - 03/01 CBC w/ auto diff MO # K/uL 0.2 1.3 0.7 FINAL Nicole Ya Mathewdamaris muñoz [facility] [place], [address] [place] [id number] 0 Phone: () - 03/01 CBC w/ auto diff EO # K/uL 0.0 0.6 0.1 FINAL Nicole Ya Mathewot a [facility] [place], [address] [place] [id number] 0 Phone: () - 03/01 CBC w/ auto diff BA # K/uL 0.0 0.2 0.0 FINAL Nicole Ya Mathewot a [facility] [place], [address] [place] [id number] 0 Phone: () - 03/01 CBC w/ auto diff NRBC % #/100W BC 0.0 0.2 0.0 FINAL Nicole Felton Mathewot a [facility] [place], [address] [place] [id number] 0 Phone: () - 03/01 CBC w/ auto diff RBC M/uL 3.9 5.1 2.57 Low FINAL Nicole Ya Nini muñoz [facility] [place], [address] [place] [id number] 0 Phone: () - 03/01 CBC w/ auto diff HCT % 35.0 48.0 28.5 Low FINAL Nicole Felton Nini a [facility] [place], [address] [place] [id number] 0 Phone: () - 03/01 CBC w/ auto diff MCV fL 80.0 104.0 110.9 High FINAL Nicole Ya Nini muñoz [facility] [place], [address] [place] [id number] 0 Phone: () - 03/01 CBC w/ auto diff MCH pg 26.0 35.0 34.2 FINAL Nicole Felton Mathewot a [facility] [place], [address] [place] [id number] 0 Phone: () - 03/01 CBC w/ auto diff MCHC g/dL 30.0 35.0 30.9 FINAL Nicole muñoz [facility] [place], [address] [place] [id number] 0 Phone: () - 03/01 CBC w/ auto diff MPV fL 9.5 13.4 8.2 Low FINAL Nicole muñoz [facility] [place], [address] [place] [id number] 0 Phone: () - 03/01 CBC w/ auto diff RDW % 11.4 16.1 15.70 FINAL Nicole muñoz [facility] [place], [address] [place] [id number] 0 Phone: () - 04/12 CMP Album in g/dL 3.2 5.2 3.8 FINAL Nicole muñoz [facility], [address] [place] [address] [id number] 0 Phone: () - 04/12 CMP Alkal ine phosp hatas e U/L 46.0 116.0 90 FINAL Nicole muñoz [facility], [address] [place] [id number] 0 Phone: () - 04/12 CMP ALT/S GPT U/L 7.0 40.0 17 FINAL Nicole muñoz [facility], [address] [place] [id number] 0 Phone: () - 04/12 CMP AST/S GOT U/L 13.0 40.0 18 FINAL Nicole muñoz [facility], [address] [place] [id number] 0 Phone: () - 04/12 CMP BUN mg/dL 9.0 23.0 14.0 FINAL Nicole muñoz [facility], [address] [place] [id number] 0 Phone: () - 04/12 CMP Calci um mg/dL 8.7 10.4 9.1 FINAL Nicole muñoz [facility], [address] [place] [id number] 0 Phone: () - 04/12 CMP Chlor rakan mmol/L 96.0 114.0 110 [facility] [address] [id number] 0 Phone: () - 04/12 CMP CO2 [...] the 96 hour stability window. FINAL [place] [address] [id number] 0 Phone: () - 04/12 CMP Creat inine mg/dL 0.5 1.2 0.86 FINAL [place] [address] [id number] 0 Phone: () - 04/12 CMP GFR estim ate ml/min /1.73m ^2 73.0 GFR is calculate d using the CKD-EPI equation. FINAL Nicole Terrazas [place] [address] [id number] 0 Phone: () - 04/12 CMP Gluco se mg/dL 73.0 126.0 85 [facility] [address] [id number] 0 Phone: () - 04/12 CMP Potas sium mmol/L 3.5 5.1 3.8 FINAL Nicole Terrazas [facility] [address] [id number] 0 Phone: () - 04/12 CMP Sodiu m mmol/L 136.0 145.0 146 High [facility] [address] [id number] 0 Phone: () - 04/12 CMP Bilir ubin, total mg/dL 0.3 1.2 0.3 FINAL Nicole Terrazas [facility] [address] [facility] [address] [place] [id number] 0 Phone: () - 04/12 CMP Total prote in g/dL 5.7 8.2 5.6 Low FINAL Nicole Felton Mathewdamaris a [facility] - [place], [address] [place] [id number] 0 Phone: () - 04/12 CBC w/ auto diff WBC K/uL 3.0 8.9 5.3 FINAL Nicole Ya Mathewdamaris muñoz [facility] [place], [address] [facility] [address] [place] [id number] 0 Phone: () - 04/12 CBC w/ auto diff HGB g/dL 11.3 15.2 9.4 Low FINAL Nicole muñoz [facility] [place], [address] [facility] [address] [place] [id number] 0 Phone: () - 04/12 CBC w/ auto diff PLT K/uL 113.0 364.0 167 FINAL Nicole muñoz [facility] [place], [address] [facility] [address] [place] [id number] 0 Phone: () - 04/12 CBC w/ auto diff Augustus # (ANC) K/uL 1.6 6.6 3.0 FINAL Nicole muñoz [facility] - [place], [address] [facility] [address] [place] [id number] 0 Phone: () - 04/12 CBC w/ auto diff Augustus % % 43.0 74.0 57.5 FINAL Nicole muñoz [facility] [place], [address] [place] [id number] 0 Phone: () - 04/12 CBC w/ auto diff IG % % 0.0 0.5 0.4 FINAL Nicole Ya Mathewdamaris muñoz [facility] - [place], [address] [place] [id number] 0 Phone: () - 04/12 CBC w/ auto diff IG # K/uL 0.0 0.03 0.02 FINAL Nicole muñoz [facility] - [place], [address] [place] [id number] 0 Phone: () - 04/12 CBC w/ auto diff LY % % 14.0 41.0 28.6 FINAL Nicole Ya Nini a [facility] - [place], [address] [place] [id number] 0 Phone: () - 04/12 CBC w/ auto diff MO % % 6.0 15.0 11.6 FINAL Nicole Felton Mathewot a [facility] - [place], [address] [place] [id number] 0 Phone: () - 04/12 CBC w/ auto diff EO % % 0.0 7.0 1.5 FINAL Nicole Felton Nini a [facility] - [place], [address] [place] [id number] 0 Phone: () - 04/12 CBC w/ auto diff BA % % 0.0 2.0 0.4 FINAL Nicole Felton Mathewdamaris a [facility] - [place], [address] [place] [id number] 0 Phone: () - 04/12 CBC w/ auto diff LY # K/uL 0.4 3.6 1.5 FINAL Nicole Felton Nini a [facility] - [place], [address] [place] [id number] 0 Phone: () - 04/12 CBC w/ auto diff MO # K/uL 0.2 1.3 0.6 FINAL Nicole Ya Mathewdamaris a [facility] - [place], [address] [place] [id number] 0 Phone: () - 04/12 CBC w/ auto diff EO # K/uL 0.0 0.6 0.1 FINAL Nicole Felton Mathewot a [facility] - [place], [address] [place] [id number] 0 Phone: () - 04/12 CBC w/ auto diff BA # K/uL 0.0 0.2 0.0 FINAL Nicole Carmonaot a [facility] - [place], [address] [place] [id number] 0 Phone: () - 04/12 CBC w/ auto diff NRBC % #/100W BC 0.0 0.2 0.0 FINAL Nicole Carmonaot a [facility] - [place], [address] [place] [id number] 0 Phone: () - 04/12 CBC w/ auto diff RBC M/uL 3.9 5.1 2.94 Low FINAL Nicole Terrazas a [facility] - [place], [address] [place] [id number] 0 Phone: () - 04/12 CBC w/ auto diff HCT % 35.0 48.0 29.6 Low FINAL Nicole Terrazas a [facility] - [place], [address] [place] [id number] 0 Phone: () - 04/12 CBC w/ auto diff MCV fL 80.0 104.0 100.7 FINAL Nicole muñoz [facility] - [place], [address] [place] [id number] 0 Phone: () - 04/12 CBC w/ auto diff MCH pg 26.0 35.0 32.0 FINAL iNcole Terrazas a [facility] - [place], [address] [place] [id number] 0 Phone: () - 04/12 CBC w/ auto diff MCHC g/dL 30.0 35.0 31.8 FINAL Nicole Terrazas a [facility] - [place], [address] [place] [id number] 0 Phone: () - 04/12 CBC w/ auto diff MPV fL 9.5 13.4 9.5 FINAL Nicole Carmonaot a [facility] - [place], [address] [place] [id number] 0 Phone: () - 04/12 CBC w/ auto diff RDW % 11.4 16.1 12.30 FINAL Nicole Ya [place] [facility] [place], [address] [place] [id number] 0 Phone: () - 04/12 PRIOR RESUL T Not Given FINAL Nicole NEGRETE, [facility] [address] [place] [id number] 4 04/12 SOURC E: Periphe ral Blood FINAL Nicole NEGRETE, [facility] [address] [place] [id number] 4 04/12 BCR ABL1/ ABL1 % % 0.000 FINAL Nicole NEGRETE, [facility] [address] [place] [id number] 4 04/12 BCR ABL1/ ABL1 % (IS) % 0.000 FINAL Nicole NEGRETE, [facility] [address] [place] [id number] 4 04/12 INTER PRETA TION see note [...] l informati on, please refer tohttp:// education .[email or web address] [email or web address](This link is being provided forinform ational/e ducationa l purposes only.)Ass ay sensitivi ty is at least 4.5-logs below baselineB CR-ABL1 transcrip t levels but is dependent onquantit y and quality of RNA used for testing and thecellul arity of the sample.Th is test was developed and its analytica lperforma nce character istics have been determine dby [facility] [place], [place].It has not been cleared or approved by the FDA. Thisassay has been validated pursuant to the CLIAregul ations and is used for clinical purposes. Alejandro Ya, Ph.D, HCLD (ABB)Chucky ntific Director, Molecular Oncology FINAL Nicole Ya XD [facility], [facility] [address] [place] [id number] 4 04/12 P190 BCR ABL1 Not Detecte d FINAL Nicole Felton [employer]D [employer], [facility] [address] [place] [id number] 4 04/12 P210 BCR ABL1 Not Detecte d FINAL Nicole Felton PENELOPE, [facility] [address] [place] [id number] 4 06/04 CBC w/ auto diff WBC K/uL 3.0 8.9 6.2 FINAL Nicole Ya [facility] [place], [address] [place] [id number] 0 Phone: () - 06/04 CBC w/ auto diff HGB g/dL 11.3 15.2 12.8 FINAL Nicole Ya [facility] [place], [address] [place] [id number] 0 Phone: () - 06/04 CBC w/ auto diff PLT K/uL 113.0 364.0 177 FINAL Nicole Felton [facility] [place], [address] [place] [id number] 0 Phone: () - 06/04 CBC w/ auto diff Augustus # (ANC) K/uL 1.6 6.6 4.0 FINAL Nicole Ya [facility] [place], [address] [place] [id number] 0 Phone: () - 06/04 CBC w/ auto diff Augustus % % 43.0 74.0 63.9 FINAL Nicole [facility] [place], [address] [place] [id number] 0 Phone: () - 06/04 CBC w/ auto diff IG % % 0.0 0.5 0.2 FINAL Nicole [facility] [place], [address] [place] [id number] 0 Phone: () - 06/04 CBC w/ auto diff IG # K/uL 0.0 0.03 0.01 FINAL Nicole [facility] [place], [address] [place] [id number] 0 Phone: () - 06/04 CBC w/ auto diff LY % % 14.0 41.0 27.5 FINAL Nicole [facility] [place], [address] [place] [id number] 0 Phone: () - 06/04 CBC w/ auto diff MO % % 6.0 15.0 7.9 FINAL Nicole [facility] [place], [address] [place] [id number] 0 Phone: () - 06/04 CBC w/ auto diff EO % % 0.0 7.0 0.2 FINAL Nicole [facility] [place], [address] [place] [id number] 0 Phone: () - 06/04 CBC w/ auto diff BA % % 0.0 2.0 0.3 FINAL Nicole [facility] [place], [address] [place] [id number] 0 Phone: () - 06/04 CBC w/ auto diff LY # K/uL 0.4 3.6 1.7 FINAL Nicole [facility] [place], [address] [place] [id number] 0 Phone: () - 06/04 CBC w/ auto diff MO # K/uL 0.2 1.3 0.5 FINAL Nicole Ya [facility] - [place], [address] [place] [id number] 0 Phone: () - 06/04 CBC w/ auto diff EO # K/uL 0.0 0.6 0.0 FINAL Nicole Ya [facility] - [place], [address] [place] [id number] 0 Phone: () - 06/04 CBC w/ auto diff BA # K/uL 0.0 0.2 0.0 FINAL Nicole Felton [facility] - [place], [address] [place] [id number] 0 Phone: () - 06/04 CBC w/ auto diff NRBC % #/100W BC 0.0 0.2 0.0 FINAL Nicole Felton [facility] - [place], [address] [place] [id number] 0 Phone: () - 06/04 CBC w/ auto diff RBC M/uL 3.9 5.1 4.27 FINAL Nicole Ya [facility] - [place], [address] [place] [id number] 0 Phone: () - 06/04 CBC w/ auto diff HCT % 35.0 48.0 39.5 FINAL Nicole Felton [facility] - [place], [address] [place] [id number] 0 Phone: () - 06/04 CBC w/ auto diff MCV fL 80.0 104.0 92.5 FINAL Nicole Ya Mathewdamaris [facility] - [place], [address] [place] [id number] 0 Phone: () - 06/04 CBC w/ auto diff MCH pg 26.0 35.0 30.0 FINAL Nicole Ya [facility]aris [facility] - [place], [address] [place] [id number] 0 Phone: () - 06/04 CBC w/ auto diff MCHC g/dL 30.0 35.0 32.4 FINAL Nicole Felton Nini [facility] - [place], [address] [place] [id number] 0 Phone: () - 06/04 CBC w/ auto diff MPV fL 9.5 13.4 9.3 Low FINAL Nicole Felton Nini [facility] - [place], [address] [place] [id number] 0 Phone: () - 06/04 CBC w/ auto diff RDW % 11.4 16.1 12.70 FINAL Nicole Felton Nini [facility] - [place], [address] [place] [id number] 0 Phone: () - 06/04 iSTAT K+ panel Potas sium, iSTAT mmol/L 3.5 4.9 3.8 Reference range adjusted 0 with implement ation of I-Stat 8+ cartridge . FINAL Nicole Ya Nini [facility] - [place], [address] [place] [id number] 0 Phone: () - 07/05 CMP Album in g/dL 3.2 5.2 4.4 FINAL Nicole Ya Dania [facility], [address] [place] [id number] 0 Phone: () - 07/05 CMP Alkal ine phosp hatas e U/L 46.0 116.0 107 FINAL Nicole Ya * [facility], [address] [place] [id number] 0 Phone: () - 07/05 CMP ALT/S GPT U/L 7.0 40.0 26 FINAL Nicole Ya * [facility], [address] [place] [id number] 0 Phone: () - 07/05 CMP AST/S GOT U/L 13.0 40.0 23 FINAL Nicole Ya * [facility], [address] [facility] 100 [facility] [id number] 0 Phone: () - 07/05 CMP BUN mg/dL 9.0 23.0 15.0 FINAL Nicoledarius Ya * [place] [address] [address] [facility] 100 [facility] [id number] 0 Phone: () - 07/05 CMP Calci um mg/dL 8.7 10.4 10.4 FINAL Nicole Ya * [place] [address] [id number] 0 Phone: () - 07/05 CMP Chlor rakan mmol/L 96.0 114.0 109 FINAL Nicoledarius Najera [place] [address] [id number] 0 Phone: () - 07/05 CMP CO2 [...] hour stability window. FINAL Nicole Ya [place] [address] [id number] 0 Phone: () - 07/05 CMP Creat inine mg/dL 0.5 1.2 1.06 FINAL Nicole Ya [place] [address] [id number] 0 Phone: () - 07/05 CMP GFR estim ate ml/min /1.73m ^2 56.7 Low GFR is calculate d using the CKD-EPI equation. FINAL Nicole Najera [place] [address] [phone] 0 Phone: () - 07/05 CMP Gluco se mg/dL 73.0 126.0 97 FINAL Nicole Ya * [facility], [address] [facility] 100 [facility] [id number] 0 Phone: () - 07/05 CMP Potas sium mmol/L 3.5 5.1 4.4 FINAL Nicole Ya * [facility] [place], [address] [place] [id number] 0 Phone: () - 07/05 CMP Sodiu m mmol/L 136.0 145.0 143 FINAL Nicole [facility] - [place], [address] [place] [id number] 0 Phone: () - 07/05 CMP Bilir ubin, total mg/dL 0.3 1.2 0.5 FINAL Nicole Ya * [facility] [place], [address] [place] [id number] 0 Phone: () - 07/05 CMP Total prote in g/dL 5.7 8.2 6.4 FINAL Nicole [facility] - [place], [address] [place] [id number] 0 Phone: () - 07/05 CBC w/ auto diff WBC K/uL 3.0 8.9 3.3 FINAL Nicole Ya Nini [facility] - [place], [address] [facility] [place] [id number] 0 Phone: () - 07/05 CBC w/ auto diff HGB g/dL 11.3 15.2 11.9 FINAL Nicole Ya N[facility] - [place], [address] [place] [id number] 0 Phone: () - 07/05 CBC w/ auto diff PLT K/uL 113.0 364.0 163 FINAL Nicole Terraz[facility] [place], [address] [place] [id number] 0 Phone: () - 07/05 CBC w/ auto diff Augustus # (ANC) K/uL 1.6 6.6 2.0 FINAL Nicole [facility] - [place], [address] [place] [id number] 0 Phone: () - 07/05 CBC w/ auto diff Augustus % % 43.0 74.0 58.6 FINAL Nicole [facility] [place], [address] [place] [id number] 0 Phone: () - 07/05 CBC w/ auto diff IG % % 0.0 0.5 0.3 FINAL Nicole [facility] [place], [address] [place] [id number] 0 Phone: () - 07/05 CBC w/ auto diff IG # K/uL 0.0 0.03 0.01 FINAL Nicole [facility] [place], [address] [place] [id number] 0 Phone: () - 07/05 CBC w/ auto diff LY % % 14.0 41.0 24.3 FINAL Nicole [facility] [place], [address] [place] [id number] 0 Phone: () - 07/05 CBC w/ auto diff MO % % 6.0 15.0 16.2 High FINAL Nicole muñoz [facility] - [place], [address] [place] [id number] 0 Phone: () - 07/05 CBC w/ auto diff EO % % 0.0 7.0 0.3 FINAL Nicole muñoz [facility] - [place], [address] [place] [id number] 0 Phone: () - 07/05 CBC w/ auto diff BA % % 0.0 2.0 0.3 FINAL Nicole [facility] [place], [address] [place] [id number] 0 Phone: () - 07/05 CBC w/ auto diff LY # K/uL 0.4 3.6 0.8 FINAL Nicole [facility] - [place], [address] [place] [id number] 0 Phone: () - 07/05 CBC w/ auto diff MO # K/uL 0.2 1.3 0.5 FINAL Nicole [facility] - [place], [address] [place] [id number] 0 Phone: () - 07/05 CBC w/ auto diff EO # K/uL 0.0 0.6 0.0 FINAL Nicole [facility] [place], [address] [place] [id number] 0 Phone: () - 07/05 CBC w/ auto diff BA # K/uL 0.0 0.2 0.0 FINAL Nicole [facility] - [place], [address] [place] [id number] 0 Phone: () - 07/05 CBC w/ auto diff NRBC % #/100W BC 0.0 0.2 0.0 FINAL Nicole [facility] [place], [address] [place] [id number] 0 Phone: () - 07/05 CBC w/ auto diff RBC M/uL 3.9 5.1 3.95 FINAL Nicole muñoz [facility] - [place], [address] [place] [id number] 0 Phone: () - 07/05 CBC w/ auto diff HCT % 35.0 48.0 36.7 FINAL Nicole muñoz [facility] - [place], [address] [place] [id number] 0 Phone: () - 07/05 CBC w/ auto diff MCV fL 80.0 104.0 92.9 FINAL Nicole [facility] - [place], [address] [place] [id number] 0 Phone: () - 07/05 CBC w/ auto diff MCH pg 26.0 35.0 30.1 FINAL Nicole [facility] - [place], [address] [place] [id number] 0 Phone: () - 07/05 CBC w/ auto diff MCHC g/dL 30.0 35.0 32.4 FINAL Nicole [facility] - [place], [address] [place] [id number] 0 Phone: () - 07/05 CBC w/ auto diff MPV fL 9.5 13.4 8.8 Low FINAL Nicole [facility] - [place], [address] [place] [id number] 0 Phone: () - 07/05 CBC w/ auto diff RDW % 11.4 16.1 14.10 FINAL Nicole [facility] [place], [address] [place] [id number] 0 Phone: () - 12/02 PRIOR RESUL T See Report FINAL Nicole Ya XD Nutrition, [facility] [address] [place] [id number] 4 12/02 SOUR E: Periphe ral Blood FINAL Nicole Ya XD Nutrition, [facility] [address] [place] [id number] 4 12/02 BCR ABL1/ ABL1 % % 0.000 FINAL Nicole Ya XD Nutrition, [facility] [address] [place] [id number] 4 12/02 BCR ABL1/ ABL1 % (IS) % 0.000 FINAL Nicole Ya XD Nutrition, [facility] [address] [place] [id number] 4 12/02 INTER PRETA TION see note [...] additiona l informati on, please refer tohttp:// [email or web address]/F [email or web address](This link is being provided forinform ational/e ducationa l purposes only.)Ass ay sensitivi ty is at least 4.5-logs below baselineB CR-ABL1 transcrip t levels but is dependent onquantit y and quality of RNA used for testing and thecellul arity of the sample.Th is test was developed and its analytica lperforma nce character istics have been determine dby [facility] , [place], [place].It has not been cleared or approved by the FDA. Thisassay has been validated pursuant to the CLIAregul ations and is used for clinical purposes. Alejandro Ya, Ph.D, HCLD (ABB)Scie ntific Director, Molecular Oncology FINAL Nicole Ya XD Nutrition, [facility] [address] [place] [id number] 4 12/02 P190 BCR ABL1 Not Detecte d FINAL [employer], [facility] [address] [place] [id number] 4 12/02 P210 BCR ABL1 Not Detecte d FINAL Nicole [employer], [facility] [address] [place] [id number] 4 12/02 CMP Album in g/dL 3.5 5.0 4.3 FINAL Nicole Ya * [facility] [place], [address] [facility] [id number] 0 12/02 CMP Alkal ine phosp hatas e U/L 36.0 125.0 126 High FINAL Nicole Ya * [facility] [place], [address] [facility] [id number] 0 12/02 CMP ALT/S GPT U/L 0.0 34.0 29 FINAL Nicole Ya * [facility], [address] [id number] 0 12/02 CMP AST/S GOT U/L 14.0 36.0 39 High FINAL Nicole Ya * [facility], [address] [id number] 0 12/02 CMP BUN mg/dL 7.0 17.0 14.0 FINAL Nicole Ya * [facility], [facility] [address] [place] [id number] 0 12/02 CMP Calci um mg/dL 8.4 10.2 9.1 FINAL Nicole Ya * [facility], [facility] [address] [id number] 0 12/02 CMP Chlor rakan mmol/L 96.0 107.0 108 High FINAL Nicole Ya * [facility], [address] [place] [address] [place] [id number] 0 12/02 CMP CO2 mmol/L 22.0 30.0 [...] hour stability window. FINAL Nicole Ya * [facility], [facility] [address] [id number] 0 12/02 CMP Creat inine mg/dL 0.66 1.25 1.30 High FINAL Nicole Ya * [facility], [address] [facility] [id number] 0 12/02 CMP GFR estim ate ml/min /1.73m ^2 44.3 Low GFR is calculate d using the CKD-EPI equation. FINAL Nicole Najera [facility], [address] [facility] [id number] 0 12/02 CMP Gluco se mg/dL 74.0 100.0 126 High FINAL Nicole Ya * [facility], [address] [facility] [id number] 0 12/02 CMP Potas sium mmol/L 3.5 5.1 3.9 FINAL Nicole Ya * [facility], [address] [facility] [id number] 0 12/02 CMP Sodiu m mmol/L 137.0 145.0 140 FINAL Nicole Najera [facility], [address] [facility] [id number] 0 12/02 CMP Bilir ubin, total mg/dL 0.2 1.3 0.7 FINAL Nicole Najera [facility], [address] [facility] [id number] 0 12/02 CMP Total prote in g/dL 6.3 8.2 6.5 FINAL Nicole Ya * [facility], [address] [facility] [id number] 0 12/02 CBC w/ auto diff WBC K/uL 3.0 8.9 4.0 FINAL Nicole Ya [facility] [place], [address] [place] [id number] 0 Phone: ( - 12/02 CBC w/ auto diff HGB g/dL 11.3 15.2 12.8 FINAL Nicole [facility] - [place], [address] [place] [id number] 0 Phone: () - 12/02 CBC w/ auto diff PLT K/uL 113.0 364.0 175 FINAL Nicole [facility] [place], [address] [place] [id number] 0 Phone: () - 12/02 CBC w/ auto diff Augustus # (ANC) K/uL 1.6 6.6 2.5 FINAL Nicole [facility] - [place], [address] [place] [id number] 0 Phone: () - 12/02 CBC w/ auto diff Augustus % % 43.0 74.0 63.2 FINAL Nicole [facility] - [place], [address] [place] [id number] 0 Phone: () - 12/02 CBC w/ auto diff IG % % 0.0 0.5 0.3 FINAL Nicole Terrazas [facility] [place], [address] [place] [id number] 0 Phone: () - 12/02 CBC w/ auto diff IG # K/uL 0.0 0.03 0.01 FINAL Nicole [facility] [place], [address] [place] [id number] 0 Phone: () - 12/02 CBC w/ auto diff LY % % 14.0 41.0 25.7 FINAL Nicole [facility] [place], [address] [place] [id number] 0 Phone: () - 12/02 CBC w/ auto diff MO % % 6.0 15.0 10.8 FINAL Nicole [facility] - [place], [address] [place] [id number] 0 Phone: () - 12/02 CBC w/ auto diff EO % % 0.0 7.0 0.0 FINAL Nicole [facility] - [place], [address] [place] [id number] 0 Phone: () - 12/02 CBC w/ auto diff BA % % 0.0 2.0 0.0 FINAL Nicole muñoz [facility] - [place], [address] [place] [id number] 0 Phone: () - 12/02 CBC w/ auto diff LY # K/uL 0.4 3.6 1.0 FINAL Nicole Ya Nini muñoz [facility] - [place], [address] [place] [id number] 0 Phone: () - 12/02 CBC w/ auto diff MO # K/uL 0.2 1.3 0.4 FINAL Nicole Felton Nini [facility] - [place], [address] [place] [id number] 0 Phone: () - 12/02 CBC w/ auto diff EO # K/uL 0.0 0.6 0.0 FINAL Nicole Felton Nini [facility] - [place], [address] [place] [id number] 0 Phone: () - 12/02 CBC w/ auto diff BA # K/uL 0.0 0.2 0.0 FINAL Nicole Ya Nini [facility] - [place], [address] [place] [id number] 0 Phone: () - 12/02 CBC w/ auto diff NRBC % #/100W BC 0.0 0.2 0.0 FINAL Nicole Ya Nini [facility] - [place], [address] [place] [id number] 0 Phone: () - 12/02 CBC w/ auto diff RBC M/uL 3.9 5.1 3.98 FINAL Nicole Ya Nini [facility] - [place], [address] [place] [id number] 0 Phone: () - 12/02 CBC w/ auto diff HCT % 35.0 48.0 38.6 FINAL Nicole Ya iNni a [facility] - [place], [address] [place] [id number] 0 Phone: () - 12/02 CBC w/ auto diff MCV fL 80.0 104.0 97.0 FINAL Nicole Ya [facility] - [place], [address] [place] [id number] 0 Phone: () - 12/02 CBC w/ auto diff MCH pg 26.0 35.0 32.2 FINAL Nicole Ya Nini mu[facility]oz [facility] - [place], [address] [place] [id number] 0 Phone: () - 12/02 CBC w/ auto diff MCHC g/dL 30.0 35.0 33.2 FINAL Nicole Terrazas [facility] - [place], [address] [place] [id number] 0 Phone: () - 12/02 CBC w/ auto diff MPV fL 9.5 13.4 9.1 Low FINAL Nicole Ya Nini mu[facility] - [place], [address] [place] [id number] 0 Phone: () - 12/02 CBC w/ auto diff RDW % 11.4 16.1 12.70 FINAL Nicole Terrazas [facility] - [place], [address] [place] [id number] 0 Phone: () - 03/30 [facility] other lab See environmental air specialist d 05/21 Misc other lab See environmental air specialist d 06/15 CMP Album in g/dL 3.5 5.0 4.6 FINAL Nicole Ya * [place] [facility] [place] [facility] , [address] [facility] [place] [id number] 0 06/15 CMP Alkal ine phosp hatas e U/L 36.0 125.0 92 FINAL Nicoledarius Ya * [facility] , [address] [facility] [id number] 06/15 CMP ALT/S GPT U/L 0.0 34.0 44 High FINAL Nicole Ya * [facility] , [address] [facility] [id number] 0 06/15 CMP AST/S GOT U/L 14.0 36.0 43 High FINAL Nicole Felton * [facility] , [address] [facility] [id number] 0 06/15 CMP BUN mg/dL 7.0 17.0 17.0 FINAL Nicole Ya * [facility] , [address] [facility] [id number] 0 06/15 CMP Calci um mg/dL 8.4 10.2 9.6 FINAL Nicole Felton * [facility] , [address] [facility] [id number] 0 06/15 CMP Chlor rakan mmol/L 96.0 107.0 106 FINAL Nicoledarius Ya * [facility] , [address] [facility] [id number] 0 06/15 CMP CO2 mmol/L 22.0 30.0 [...] hour stability window. FINAL Nicole Ya * [facility] , [address] [facility] [id number] 0 06/15 CMP Creat inine mg/dL 0.66 1.25 1.30 High FINAL Nicole Ya * [facility] , [address] [facility] [id number] 0 06/15 CMP GFR estim ate ml/min /1.73m ^2 44.1 Low GFR is calculate d using the CKD-EPI equation. FINAL Nicole Ya * [facility] , [address] [facility] [id number] 0 06/15 CMP Gluco se mg/dL 74.0 100.0 94 FINAL Nicole Ya * [facility] , [address] [facility] [id number] 0 06/15 CMP Potas sium mmol/L 3.5 5.1 4.1 FINAL Nicole Ya * [facility] , [address] [facility] [id number] 0 06/15 CMP Sodiu m mmol/L 137.0 145.0 140 FINAL Nicole Ya * [facility] , [address] [facility] [id number] 0 06/15 CMP Bilir ubin, total mg/dL 0.2 1.3 0.9 FINAL Nicole Ya * [facility] , [address] [facility] [id number] 0 06/15 CMP Total prote in g/dL 6.3 8.2 6.7 FINAL Nicole Ya * [facility] , [address] [id number] 0 06/15 CBC w/ auto diff WBC K/uL 3.0 8.9 4.7 FINAL Nicole Ya [facility] , [address] [place] [id number] 0 06/15 CBC w/ auto diff HGB g/dL 11.3 15.2 13.6 FINAL Nicole Ya [place] [facility] [place] [facility] , [address] [place] [id number] 0 06/15 CBC w/ auto diff PLT K/uL 113.0 364.0 151 FINAL Nicole Ya [place] [facility] [place] [facility] , [address] [place] [id number] 0 06/15 CBC w/ auto diff Augustus # (ANC) K/uL 1.6 6.6 2.9 FINAL Nicole Ya [place] [facility] [place] [facility] , [address] [place] [id number] 0 06/15 CBC w/ auto diff Augusuts % % 43.0 74.0 61.4 FINAL Nicole Ya [place] [facility] [place] [facility] , [address] [place] [id number] 0 06/15 CBC w/ auto diff IG % % 0.0 0.5 0.2 FINAL Nicole Ya [place] [facility] [place] [facility] , [address] [place] [id number] 0 06/15 CBC w/ auto diff IG # K/uL 0.0 0.03 0.01 FINAL Nicole Ya [place] [facility] [place] [facility] , [address] [place] [id number] 0 06/15 CBC w/ auto diff LY % % 14.0 41.0 28.3 FINAL Nicole Ya [place] [facility] [place] [facility] , [address] [place] [id number] 0 06/15 CBC w/ auto diff MO % % 6.0 15.0 10.1 FINAL Nicole Ya [place] [facility] [place] [facility] , [address] [place] [id number] 0 06/15 CBC w/ auto diff EO % % 0.0 7.0 0.0 FINAL Nicole Ya [place] [facility] [place] [facility] , [address] [place] [id number] 0 06/15 CBC w/ auto diff BA % % 0.0 2.0 0.0 FINAL Nicole Ya [place] [facility] [place] [facility] , [address] [facility] [address] [place] [id number] 0 06/15 CBC w/ auto diff LY # K/uL 0.4 3.6 1.3 FINAL Nicole Ya [place] [facility] , [address] [facility] [address] [place] [id number] 0 06/15 CBC w/ auto diff MO # K/uL 0.2 1.3 0.5 FINAL Nicole Ya [place] [facility] , [address] [facility] [address] [place] [id number] 0 06/15 CBC w/ auto diff EO # K/uL 0.0 0.6 0.0 FINAL Nicole Ya [place] [facility] , [address] [facility] [address] [place] [id number] 0 06/15 CBC w/ auto diff BA # K/uL 0.0 0.2 0.0 FINAL Nicole Ya [place] [facility] , [address] [facility] [address] [place] [id number] 0 06/15 CBC w/ auto diff NRBC % #/100W BC 0.0 0.2 0.0 FINAL Nicole Ya [place] [facility] , [address] [place] [id number] 0 06/15 CBC w/ auto diff RBC M/uL 3.9 5.1 4.32 FINAL Nicole Ya [place] [facility] , [address] [place] [id number] 0 06/15 CBC w/ auto diff HCT % 35.0 48.0 41.6 FINAL Nicole Ya [place] [facility] , [address] [place] [id number] 0 06/15 CBC w/ auto diff MCV fL 80.0 104.0 96.3 FINAL Nicole Ya [place] [facility] , [address] [place] [id number] 0 06/15 CBC w/ auto diff MCH pg 26.0 35.0 31.5 FINAL Nicole Ya [place] [facility] , [address] [place] [id number] 0 06/15 CBC w/ auto diff MCHC g/dL 30.0 35.0 32.7 FINAL Nicole Ya [place] [facility] , [address] [place] [id number] 0 06/15 CBC w/ auto diff MPV fL 9.5 13.4 9.3 Low FINAL Nicole Ya [place] [facility] , [address] [place] [id number] 0 06/15 CBC w/ auto diff RDW % 11.4 16.1 12.00 FINAL Nicole Ya [place] [facility] , [address] [place] [id number] 0 06/15 PRIOR RESUL T See Report FINAL Nicole NEGRETE, [facility] [address] [place] [id number] 4 06/15 SOURC E: Periphe ral Blood FINAL Nicole NEGRETE, [facility] [address] [place] [id number] 4 06/15 BCR ABL1/ ABL1 % % 0.000 FINAL Nicole NEGRETE, [facility] [address] [place] [id number] 4 06/15 BCR ABL1/ ABL1 % (IS) % 0.000 FINAL Nicole NEGRETE, [facility] [address] [place] [id number] 4 06/15 INTER PRETA TION see note [...] l informati on, please refer tohttp:// education .[employer]/faq/F AQ72(This link is being provided forinform ational/e ducationa l purposes only.)Ass ay sensitivi ty is at least 4.5-logs below baselineB CR-ABL1 transcrip t levels but is dependent onquantit y and quality of RNA used for testing and thecellul arity of the sample.Th is test was developed and its analytica lperforma nce character istics have been determine dby [facility] [place], [place].It has not been cleared or approved by the FDA. Thisassay has been validated pursuant to the CLIAregul ations and is used for clinical purposes. Denver wilson M.D. FINAL Nicole Ya [facility], [facility] [address] [place] [id number] 4 06/15 P190 BCR ABL1 Not Detecte d FINAL Nicole Ya [facility], [facility] [address] [place] [id number] 4 06/15 P210 BCR ABL1 Not Detecte d FINAL Nicole Ya [facility], [facility] [address] [place] [id number] 4 01/06 CBC w/ auto diff WBC K/uL 3.0 8.9 4.5 FINAL Nicole Ya [place] [facility] , [address] [place] [id number] 0 01/06 CBC w/ auto diff HGB g/dL 11.3 15.2 12.8 FINAL Nicoledarius Ya [place] [facility] , [address] [place] [id number] 0 01/06 CBC w/ auto diff PLT K/uL 113.0 364.0 153 FINAL Nicoledarius Ya [place] [facility] , [address] [place] [id number] 0 01/06 CBC w/ auto diff Augustus # (ANC) K/uL 1.6 6.6 2.8 FINAL Nicole Ya [place] [facility] , [address] [place] [id number] 0 01/06 CBC w/ auto diff Augustus % % 43.0 74.0 61.5 FINAL Nicole Ya [place] [facility] , [address] [place] [id number] 0 01/06 CBC w/ auto diff IG % % 0.0 0.5 0.4 FINAL Nicole Ya [place] [facility] , [address] [place] [id number] 0 01/06 CBC w/ auto diff IG # K/uL 0.0 0.03 0.02 FINAL Nicole Ya [facility] [place] [facility] , [address] [place] [id number] 0 01/06 CBC w/ auto diff LY % % 14.0 41.0 25.4 FINAL Nicole Ya [facility] [place] [facility] , [address] [place] [id number] 0 01/06 CBC w/ auto diff MO % % 6.0 15.0 12.7 FINAL Nicole Ya [facility] [place] [facility] , [address] [place] [id number] 0 01/06 CBC w/ auto diff EO % % 0.0 7.0 0.0 FINAL Nicole Ya [facility] [place] [facility] , [address] [place] [id number] 0 01/06 CBC w/ auto diff BA % % 0.0 2.0 0.0 FINAL Nicole Ya [facility] [place] [facility] , [address] [place] [id number] 0 01/06 CBC w/ auto diff LY # K/uL 0.4 3.6 1.1 FINAL Nicole Ya [facility] [place] [facility] , [address] [place] [id number] 0 01/06 CBC w/ auto diff MO # K/uL 0.2 1.3 0.6 FINAL Nicole Ya [place] [facility] , [address] [place] [id number] 0 01/06 CBC w/ auto diff EO # K/uL 0.0 0.6 0.0 FINAL Nicole Ya [place] [facility] , [address] [place] [id number] 0 01/06 CBC w/ auto diff BA # K/uL 0.0 0.2 0.0 FINAL Nciole Ya [place] [facility] , [address] [place] [id number] 0 01/06 CBC w/ auto diff NRBC % #/100W BC 0.0 0.2 0.0 FINAL Nicole Ya [place] [facility] , [address] [place] [id number] 0 01/06 CBC w/ auto diff RBC M/uL 3.9 5.1 3.69 Low FINAL Nicole Ya [place] [facility] , [address] [place] [id number] 0 01/06 CBC w/ auto diff HCT % 35.0 48.0 37.6 FINAL Nicole Ya [place] [facility] , [address] [place] [id number] 0 01/06 CBC w/ auto diff MCV fL 80.0 104.0 101.9 FINAL Nicole Ya [place] [facility] , [address] [place] [id number] 0 01/06 CBC w/ auto diff MCH pg 26.0 35.0 34.7 FINAL Nicole Ya [place] [facility] , [address] [place] [id number] 0 01/06 CBC w/ auto diff MCHC g/dL 30.0 35.0 34.0 FINAL Nicole Ya [place] [facility] , [address] [place] [id number] 0 01/06 CBC w/ auto diff MPV fL 9.5 13.4 9.6 FINAL Nicole Ya [place] [facility] , [address] [place] [id number] 0 01/06 CBC w/ auto diff RDW % 11.4 16.1 13.00 FINAL Nicole Ya [place] [facility] , [address] [place] [id number] 0 01/06 CMP Album in g/dL 3.5 5.0 3.9 FINAL Nicole Ya * [facility] , [address] [facility] [id number] 0 01/06 CMP Alkal ine phosp hatas e U/L 36.0 125.0 79 FINAL Nicole Ya * [facility] [place] [facility] , [address] [facility] [id number] 0 01/06 CMP ALT/S GPT U/L 0.0 34.0 24 FINAL Nicole Ya * [facility] [place] [facility] , [address] [facility] [id number] 0 01/06 CMP AST/S GOT U/L 14.0 36.0 33 FINAL Nicole Ya * [facility] , [address] [facility] [id number] 0 01/06 CMP BUN mg/dL 7.0 17.0 14.0 FINAL Nicole Ya * [facility] , [address] [facility] [id number] 0 01/06 CMP Calci um mg/dL 8.4 10.2 8.9 FINAL Nicole Ya * [facility] , [address] [facility] [id number] 0 01/06 CMP Chlor rakan mmol/L 96.0 107.0 109 High FINAL Nicole Ya * [facility] , [address] [facility] [id number] 0 01/06 CMP CO2 mmol/L 22.0 30.0 [...] of the 96 hour stability window. FINAL Incoledarius Ya * [facility] , [address] [facility] [id number] 0 01/06 CMP Creat inine mg/dL 0.66 1.25 1.00 FINAL Nicole Ya * [facility] , [address] [facility] [id number] 0 01/06 CMP GFR estim ate ml/min /1.73m ^2 60.2 GFR is calculate d using the CKD-EPI equation. FINAL Nicoledarius Ya * [facility] , [address] [facility] [id number] 0 01/06 CMP Gluco se mg/dL 74.0 100.0 88 FINAL Nicole Ya * [facility] , [address] [facility] [id number] 0 01/06 CMP Potas sium mmol/L 3.5 5.1 4.1 FINAL Nicole Ya * [facility] , [address] [facility] [id number] 0 01/06 CMP Sodiu m mmol/L 137.0 145.0 141 FINAL Nicole Ya * [facility] , [address] [facility] [id number] 0 01/06 CMP Bilir ubin, total mg/dL 0.2 1.3 0.8 FINAL Nicole Ya * [facility] , [address] [facility] [id number] 0 01/06 CMP Total prote in g/dL 6.3 8.2 6.2 Low FINAL Nicole Ya * [facility] , [address] [facility] [id number] 0 01/06 PRIOR RESUL T See Report FINAL Nicole Ya [facility], [facility] [address] [place] [id number] 4 01/06 SOURC E: Periphe ral Blood FINAL Nicole Ya [facility], [facility] [address] [place] [id number] 4 01/06 BCR ABL1/ ABL1 % % 0.000 FINAL Nicole Ya [facility], [facility] [address] [place] [id number] 4 01/06 BCR ABL1/ ABL1 % (IS) % 0.000 FINAL Nicole Ya [facility], [facility] [address] [place] [id number] 4 01/06 INTER PRETA TION see note [...] l informati on, please refer tohttp:// education .[employer]/faq/F AQ72(This link is being provided forinform ational/e ducationa l purposes only.)Ass ay sensitivi ty is at least 4.5-logs below baselineB CR-ABL1 transcrip t levels but is dependent onquantit y and quality of RNA used for testing and thecellul arity of the sample.Th is test was developed and its analytica lperforma nce character istics have been determine dby [facility] , [place], [place].It has not been cleared or approved by the FDA. Thisassay has been validated pursuant to the CLIAregul ations and is used for clinical purposes. Reviewed by Aiden Hui M.D., Ph.D.Sta f Pathologi st FINAL [employer], [facility] [address] [place] [id number] 4 01/06 P190 BCR ABL1 Not Detecte d FINAL [employer], [facility] [address] [place] [id number] 4 01/06 P210 BCR ABL1 Not Detecte d FINAL [employer], [facility] [address] [place] [id number] 4 Medications Date Name Route Dose Frequency [...]
--- OUTSIDE RECORDS SUMMARY | 2025-02-08 13:38 | XMS_ITS ---
Author Name Interface, [email or web address] lity Address [address] [place], [place] [address] [place] [id number] [facility] Address [facility] [address] [address] Allergies and Adverse Reactions Plan Reason for Visit Encounters Immunizations Medications Problems Vital Signs Notes Section
--- OUTSIDE RECORDS SUMMARY | 2025-02-08 13:39 | XMS_ITS ---
Author Name Interface, O4Tmmkyee lity Address [address] [facility] [address] [address] [facility] Address [address] [facility] [address] [address] Allergies and Adverse Reactions Medication/Group Name Reaction [...] 09/03/2019 APPOINTMENT MICHEAL - 11 - 3 [facility] 09/03/2019 APPOINTMENT PHONE - 11 3 MO RC - PHONE VISIT 06/01/2019 APPOINTMENT RC - 11 RC - 2 M [facility] 06/01/2019 APPOINTMENT MICHEAL - 11 - 2 [facility] 05/27/2019 APPOINTMENT LAB - 11 ARM [...] K/uL 3.0 8.9 6.4 FINAL [facility] [place], [address] [place] [address] 210 [facility] [phone] Phone: () - 05/27 CBC w/ auto diff HGB g/dL 11.3 15.2 13.8 FINAL Jhon bearden [facility], [address] [place] [address] 210 [facility] [phone] 0 Phone: () - 05/27 CBC w/ auto diff PLT K/uL 113.0 364.0 157 FINAL Jhon bearden [facility], [address] [place] [address] 210 [facility] [id number] 0 Phone: () - 05/27 CBC w/ auto diff Augustus # (ANC) K/uL 1.6 6.6 4.1 FINAL Jhon bearden [facility], [address] [place] [address] 210 [place] [phone] 0 Phone: () - 05/27 CBC w/ auto diff Augustus % % 43.0 74.0 63.8 FINAL Jhon bearden [facility] a [facility], [address] [place] [address] 210 [place] [id number] 0 Phone: () - 05/27 CBC w/ auto diff IG % % 0.0 0.5 0.3 FINAL Jhon bearden [address] 210 [place] [id number] 0 Phone: () - 05/27 CBC w/ auto diff IG # K/uL 0.0 0.03 0.02 FINAL Jhon bearden [facility] a [address] 210 [facility] [id number] 0 Phone: () - 05/27 CBC w/ auto diff LY % % 14.0 41.0 26.6 FINAL Jhon Fitzgeraldot a On[facility] - [place], [address] [place] [address] 210 [facility] [id number] 0 Phone: () - 05/27 CBC w/ auto diff MO % % 6.0 15.0 8.7 FINAL [place]hon [place]arden [place] [facility] [place], [address] [place] [address] 210 [facility] [id number] [phone] Phone: () - 05/27 CBC w/ auto diff EO % % 0.0 7.0 0.3 FINAL [place]arden [place] [facility] - [address] [phone] 0 Phone: () - 05/27 CBC w/ auto diff BA % % 0.0 2.0 0.3 FINAL Jhon [place]arden [place] [facility] [place], [address] [place] [address] 210 [facility] [id number] 0 Phone: () - 05/27 CBC w/ auto diff LY # K/uL 0.4 3.6 1.7 FINAL Jhon Fitzgeraldot a On[facility] - [place], [address] [place] [address] 210 [facility] [id number] 0 Phone: () - 05/27 CBC w/ auto diff MO # K/uL 0.2 1.3 0.6 FINAL [facility] [place], [address] [place] [address] 210 [facility] [phone] 0 Phone: () - 05/27 CBC w/ auto diff EO # K/uL 0.0 0.6 0.0 FINAL [facility] - [address] 210 [facility] [phone] 0 Phone: () - 05/27 CBC w/ auto diff BA # K/uL 0.0 0.2 0.0 FINAL [facility] [address] [phone] 0 Phone: () - 05/27 CBC w/ auto diff NRBC % #/100W BC 0.0 0.2 0.0 FINAL Jhon bearden [address] 210 [facility] [id number] 0 Phone: () - 05/27 CBC w/ auto diff RBC M/uL 3.9 5.1 4.29 FINAL Jhon bearden [address] 210 [facility] [id number] 0 Phone: () - 05/27 CBC w/ auto diff HCT % 35.0 48.0 41.0 FINAL Jhon bearden [address] 210 [facility] [id number] 0 Phone: () - 05/27 CBC w/ auto diff MCV fL 80.0 104.0 95.6 FINAL Jhon bearden [address] 210 [facility] [id number] 0 Phone: () - 05/27 CBC w/ auto diff MCH pg 26.0 35.0 32.2 FINAL Jhon bearden [address] 210 [facility] [id number] 0 Phone: () - 05/27 CBC w/ auto diff MCHC g/dL 30.0 35.0 33.7 FINAL Jhon bearden [address] 210 [facility] [id number] 0 Phone: () - 05/27 CBC w/ auto diff MPV fL 9.5 13.4 9.8 FINAL Jhon bearden [address] 210 [facility] [phone] 0 Phone: () - 05/27 CBC w/ auto diff RDW % 11.4 16.1 12.80 FINAL Jhon bearden [address] 210 [facility] [id number] 0 Phone: () - 05/27 BCR-A BL by PCR quant itati ve B2a2 trans cript , % % Comment <0.0032 %(sensiti vity limit of assay) FINAL Jhon bearden 05/27 BCR-A BL by PCR quant itati ve B3a2 trans cript , % % Comment <0.0032 %(sensiti vity limit of assay) [facility]AL [facility] [address] 05/27 BCR-A BL by PCR quant itati ve E1a2 trans cript , % % Comment <0.0032 %(sensiti vity limit of assay) FINAL [facility] [place] [address] 05/27 BCR-A BL by PCR quant itati ve BCR/A BL inter preta tion Comment NEGATIVE for the BCR-ABL1 e1a2 (p190), e13a2 (b2a2, p210) and e14a2(b3a 2, p210) fusion transcrip ts. These results do not rule out thepresen ce of rare BCR-ABL1 transcrip ts not detected by this assay. FINAL Jhon bearden [place] [address] 05/27 BCR-A BL by PCR quant itati ve María ics [employer] rev w Comment Citlalli Millan, PhD, [facility], [facility] Path[facility], [phone] FINAL [facility] [address] 05/27 BCR-A BL by [...] indicated . FINAL Jhon Keshawn suleiman Ruiz [facility] [address] 05/27 BCR-A BL by PCR quant itati ve BCR/A BL metho dolog y Comment Total RNA is isolated from the sample and subject to a real-time ,reverse transcrip tase polymeras e chain reaction (RT-PCR). The PCRprimer s and probes are specific for BCR-ABL1 e13a2, e14a2 and [id number] n transcrip ts. The ABL1 transcrip t [...] Blaise MANDEL, et al. Blood 2010; 116: [id number]. 3. NCCN Clinical Practice Guideline s in Oncology, ChronicMy eloid Leukemia. V2. 2017.Perf ormed at: 01 - [facility] [id number] [facility], [place], [place] [id number] Choreography Director: Cecilia bearden MD, Phone: [phone] d at: - [facility] [id number] [facility], [facility], [place] [id number] Choreography Director: Cecilia bearden MD, Phone: [phone] FINAL [facility]id [facility]iresChester [facility] [address] 05/27 CMP Album in g/dL 3.2 5.2 4.[address]id bearden [address] [id number] 0 Phone: () - 05/27 CMP Alkal ine phosp hatas e U/L 46.0 116.0 93 FINAL Jhon bearden [address] [id number] 0 Phone: () - 05/27 CMP ALT/S GPT U/L 7.0 40.0 [address] [id number] 0 Phone: () - 05/27 CMP AST/S GOT U/L 13.0 40.0 24 FIN[address] Jhon bearden [address] [id number] 0 Phone: () - 05/27 CMP BUN mg/dL 9.0 23.0 11 FINAL Jhon bearden [address] [id number] 0 Phone: () - 05/27 CMP Calci um mg/dL 8.7 10.4 9.5 FINAL Jhon bearden [address] [id number] 0 Phone: () - 05/27 CMP Chlor rakan mmol/L 96.0 114.0 108 FINAL Jhon bearden [address] [id number] 0 Phone: () - 05/27 CMP CO2 mmol/L 20.0 31.0 26 FINAL Jhon bearden [address] [id number] 0 Phone: () - 05/27 CMP Creat inine mg/dL 0.5 1.2 0.98 FINAL Jhon bearden [address] [id number] 0 Phone: () - 05/27 CMP GFR estim ate ml/min /1.73m ^2 60.4 GFR is calculate d using the CKD-EPI equation. FINAL Jhon Fitzgerald[address] [phone] 0 Phone: () - 05/27 CMP Gluco se mg/dL 73.0 126.0 99 FINAL Jhon Fitzgerald[address] [id number] 0 Phone: () - 05/27 CMP Potas sium mmol/L 3.5 5.1 4.[address] FINAL Jhon bearden [address] [id number] 0 Phone: () - 05/27 CMP Sodiu m mmol/L 136.0 145.0 144 FINAL Jhon Fitzgerald[address] [id number] 0 Phone: () - 05/27 CMP Bilir ubin, total mg/dL 0.3 1.2 0.[address] Jhon bearden [address] [id number] 0 Phone: () - 05/27 CMP Total prote in g/dL 5.7 8.2 6.[address] Jhon bearden [address] [id number] 0 Phone: () - 05/27 Misc other lab See crown attacher d 02/09 CMP Album in g/dL 3.2 5.2 4.9 FINAL [place] [address] [id number] 0 Phone: () - 02/09 CMP Alkal ine phosp hatas e U/L 46.0 116.0 92 FINAL [place] [address] [id number] 0 Phone: () - 02/09 CMP ALT/S GPT U/L 7.0 40.0 18 FINAL [place] [id number] 0 Phone: () - 02/09 CMP AST/S GOT U/L 13.0 40.0 22 FINAL [place] muñoz [address] [id number] 0 Phone: () - 02/09 CMP BUN mg/dL 9.0 23.0 17 FINAL Kennedy Carmona[address] [id number] 0 Phone: () - 02/09 CMP Calci um mg/dL 8.7 10.4 10.0 FINAL [place] [address] [id number] 0 Phone: () - 02/09 CMP Chlor rakan mmol/L 96.0 114.0 109 FINAL Kennedy Carmona[address] [id number] 0 Phone: () - 02/09 CMP CO2 mmol/L 20.0 31.0 24 FINAL [place] Carmona[address] [id number] 0 Phone: () - 02/09 CMP Creat inine mg/dL 0.5 1.2 1.09 FINAL Kennedy Carmona[address] [id number] 0 Phone: () - 02/09 CMP GFR estim ate ml/min /1.73m ^2 52.8 Low GFR is calculate d using the CKD-EPI equation. FINAL [place] Carmona[address] [id number] 0 Phone: () - 02/09 CMP Gluco se mg/dL 73.0 126.0 101 FINAL [place] Carmona[address] [id number] 0 Phone: () - 02/09 CMP Potas sium mmol/L 3.5 5.1 4.9 FINAL [place] [address] [place] [id number] 0 Phone: () - 02/09 CMP Sodiu m mmol/L 136.0 145.0 140 FINAL [facility]cology [address] [id number] 0 Phone: () - 02/09 CMP Bilir ubin, total mg/dL 0.3 1.2 0.8 FINAL Kennedy Carmonaot a [address] [id number] 0 Phone: () - 02/09 CMP Total prote in g/dL 5.7 8.2 6.9 FINAL [place] [facility] a [address] [id number] 0 Phone: () - 02/09 BCR-A BL [...] 01Eddie Webb MD, PhDDirect or, Molecular OncologyL [facility] for Molecular Biology and Path[place], [place] [address] [phone] nd 01This assay can detect three [...] are specific for BCR-ABL1 e13a2, e14a2 and [id number] n transcrip ts. The ABL1 transcrip t [...] --------- --------- -----Perf ormed at:[address] [facility] [id number] [employer] Luis Miguel C, [place] [address] 3Achinyereurbano Espinalchinyere [facility], Phone: [phone] TG [facility] [id number] [employer], [place] [address] 0Yingurbano Espinalchinyere [facility], Phone: Perfor med at: - [facility] [id number] [employer], [place], [place] [id number] Choreography Director: Eddie Webb [facility], Phone: [phone] FINAL [place] Ungmichaelub 02/09 CBC w/ auto diff WBC K/uL 3.0 8.9 4.6 FINAL Kennedy Doloresub [facility] a [address] 210 [facility] [id number] 0 Phone: () - 02/09 CBC w/ auto diff HGB g/dL 11.3 15.2 14.4 FINAL [place] Carmona a [address] 210 [facility] [id number] 0 Phone: () - 02/09 CBC w/ auto diff PLT K/uL 113.0 364.0 158 FINAL Kennedy Carmonaot a [address] 210 [place] [id number] 0 Phone: () - 02/09 CBC w/ auto diff Augustus # (ANC) K/uL 1.6 6.6 2.5 FINAL Kennedy Carmonaot a [address] 210 [place] [id number] 0 Phone: () - 02/09 CBC w/ auto diff Augustus % % 43.0 74.0 54.6 FINAL Kennedy Carmonaot a [address] 210 [place] [id number] 0 Phone: () - 02/09 CBC w/ auto diff IG % % 0.0 0.5 0.2 FINAL Kennedyeddie Bernalub [facility] a [address] 210 [facility] [id number] 0 Phone: () - 02/09 CBC w/ auto diff IG # K/uL 0.0 0.03 0.01 FINAL Eknnedy Unglaub [place] [facility] [place], [address] [place] [address] 210 [place] [id number] 0 Phone: () - 02/09 CBC w/ auto diff LY % % 14.0 41.0 33.2 FINAL [place] Unglaub [place] [facility] [place], [address] [place] [address] 210 [place] [id number] 0 Phone: () - 02/09 CBC w/ auto diff MO % % 6.0 15.0 10.4 FINAL [place] Unglaub [place] [facility] [place], [address] [place] [address] 210 [place] [id number] 0 Phone: () - 02/09 CBC w/ auto diff EO % % 0.0 7.0 0.9 FINAL [place] Unglaub [place] [facility] [place], [address] [place] [address] 210 [place] [id number] 0 Phone: () - 02/09 CBC w/ auto diff BA % % 0.0 2.0 0.7 FINAL [place] Unglaub [place] [facility] [place], [address] [place] [address] 210 [place] [id number] 0 Phone: () - 02/09 CBC w/ auto diff LY # K/uL 0.4 3.6 1.5 FINAL [place] Unglaub [place] [facility] [place], [address] [place] [address] 210 [place] [id number] 0 Phone: () - 02/09 CBC w/ auto diff MO # K/uL 0.2 1.3 0.5 FINAL [place] Unglaub [place] [facility] [place], [address] [place] [address] 210 [place] [id number] 0 Phone: () - 02/09 CBC w/ auto diff EO # K/uL 0.0 0.6 0.0 FINAL [place] Unglaub [place] [facility] [place], [address] [place] [address] 210 [place] [id number] 0 Phone: () - 02/09 CBC w/ auto diff BA # K/uL 0.0 0.2 0.0 FINAL [place] Unglaub [place] [facility] [place], [address] [place] [address] 210 [facility] [id number] 0 Phone: () - 02/09 CBC w/ auto diff NRBC % #/100W BC 0.0 0.2 0.0 FINAL [place] Carmona toni [facility], [address] [place] [address] 210 [facility] [id number] 0 Phone: () - 02/09 CBC w/ auto diff RBC M/uL 3.9 5.1 4.52 FINAL [place] [facility], [address] [place] [address] 210 [facility] [id number] 0 Phone: () - 02/09 CBC w/ auto diff HCT % 35.0 48.0 42.6 FINAL [place] [facility], [address] [place] [address] 210 [facility] [id number] 0 Phone: () - 02/09 CBC w/ auto diff MCV fL 80.0 104.0 94.2 FINAL [place] [address] 210 [facility] [id number] 0 Phone: () - 02/09 CBC w/ auto diff MCH pg 26.0 35.0 31.9 FINAL Kennedy Carmona toni [facility], [address] [place] [address] 210 [place] [phone] 0 Phone: () - 02/09 CBC w/ auto diff MCHC g/dL 30.0 35.0 33.8 FINAL [place] Carmona[address] 210 [facility] [id number] 0 Phone: () - 02/09 CBC w/ auto diff MPV fL 9.5 13.4 9.8 FINAL [place] [address] 210 [facility] [id number] 0 Phone: () - 02/09 CBC w/ auto diff RDW % 11.4 16.1 12.60 FINAL [place] [facility] toni [address] 210 [facility] [id number] 0 Phone: () - 08/30 CBC w/ auto diff WBC K/uL 3.0 8.9 4.7 FINAL [facility], [address] [place] [address] 210 [place] [id number] 0 Phone: () - 08/30 CBC w/ auto diff HGB g/dL 11.3 15.2 14.5 FINAL [facility], [address] [place] [address] 210 [place] [id number] 0 Phone: () - 08/30 CBC w/ auto diff PLT K/uL 113.0 364.0 153 FINAL [facility], [address] [place] [address] 210 [facility] [id number] 0 Phone: () - 08/30 CBC w/ auto diff Augustus # (ANC) K/uL 1.6 6.6 2.7 FINAL [facility], [address] [place] [address] 210 [facility] [id number] 0 Phone: () - 08/30 CBC w/ auto diff Augustus % % 43.0 74.0 56.8 FINAL [facility], [address] [place] [address] 210 [facility] [id number] 0 Phone: () - 08/30 CBC w/ auto diff IG % % 0.0 0.5 0.0 FINAL [facility], [address] [place] [address] 210 [facility] [id number] 0 Phone: () - 08/30 CBC w/ auto diff IG # K/uL 0.0 0.03 0.00 FINAL [facility], [address] [place] [address] 210 [place] [phone] 0 Phone: () - 08/30 CBC w/ auto diff LY % % 14.0 41.0 29.6 FINAL Ruiz Raya [facility], [address] [place] [address] 210 [place] [id number] 0 Phone: () - 08/30 CBC w/ auto diff MO % % 6.0 15.0 11.6 FINAL Ruiz Raya [facility], [address] [place] [address] 210 [place] [id number] 0 Phone: () - 08/30 CBC w/ auto diff EO % % 0.0 7.0 1.1 FINAL [facility], [address] [place] [address] 210 [facility] [id number] 0 Phone: () - 08/30 CBC w/ auto diff BA % % 0.0 2.0 0.9 FINAL [facility], [address] [place] [address] 210 [facility] [id number] 0 Phone: () - 08/30 CBC w/ auto diff LY # K/uL 0.4 3.6 1.4 FINAL [facility], [address] [place] [address] 210 [facility] [id number] 0 Phone: () - 08/30 CBC w/ auto diff MO # K/uL 0.2 1.3 0.5 FINAL [facility], [address] [place] [address] 210 [facility] [id number] 0 Phone: () - 08/30 CBC w/ auto diff EO # K/uL 0.0 0.6 0.1 FINAL [facility], [address] [place] [address] 210 [facility] [id number] 0 Phone: () - 08/30 CBC w/ auto diff BA # K/uL 0.0 0.2 0.0 FINAL [facility], [address] [place] [address] 210 [facility] [id number] 0 Phone: () - 08/30 CBC w/ auto diff NRBC % #/100W BC 0.0 0.2 0.0 FINAL [facility], [address] [place] [address] 210 [facility] [id number] 0 Phone: () - 08/30 CBC w/ auto diff RBC M/uL 3.9 5.1 4.48 FINAL [facility], [address] [place] [address] 210 [facility] [id number] 0 Phone: () - 08/30 CBC w/ auto diff HCT % 35.0 48.0 43.5 FINAL Ruiz muñoz [facility], [address] [place] [address] 210 [facility] [id number] 0 Phone: () - 08/30 CBC w/ auto diff MCV fL 80.0 104.0 97.1 FINAL Ruiz muñoz [facility], [address] [place] [address] 210 [facility] [id number] 0 Phone: () - 08/30 CBC w/ auto diff MCH pg 26.0 35.0 32.4 FINAL Ruiz muñoz [facility], [address] [place] [address] 210 [facility] [id number] 0 Phone: () - 08/30 CBC w/ auto diff MCHC g/dL 30.0 35.0 33.3 FINAL Ruiz muñoz [facility], [address] [place] [address] 210 [facility] [id number] 0 Phone: () - 08/30 CBC w/ auto diff MPV fL 9.5 13.4 9.9 FINAL Ruiz muñoz [facility], [address] [place] [address] 210 [facility] [id number] 0 Phone: () - 08/30 CBC w/ auto diff RDW % 11.4 16.1 12.30 FINAL Ruiz muñoz [facility], [address] [place] [address] 210 [facility] [id number] 0 Phone: () - 08/30 CMP Album in g/dL 3.2 5.2 4.6 FINAL Ruiz Carmona[address] [id number] 0 Phone: () - 08/30 CMP Alkal ine phosp hatas e U/L 46.0 116.0 [address] [id number] 0 Phone: () - 08/30 CMP ALT/S GPT U/L 7.0 40.0 14 FINAL Ruiz Carmona[address] [id number] 0 Phone: () - 08/30 CMP AST/S GOT U/L 13.0 40.0 20 FINAL Ruiz Terrazas [address] [id number] 0 Phone: () - 08/30 CMP BUN mg/dL 9.0 23.0 26 High FINAL Ruiz Carmona[address] [id number] 0 Phone: () - 08/30 CMP Calci um mg/dL 8.7 10.4 10.0 FINAL Ruiz Carmona[address] [id number] 0 Phone: () - 08/30 CMP Chlor rakan mmol/L 96.0 114.0 [address]iz [address] [id number] 0 Phone: () - 08/30 CMP CO2 mmol/L 20.0 31.0 27 FINAL Ruiz Raya [address] [id number] 0 Phone: () - 08/30 CMP Creat inine mg/dL 0.5 1.2 1.24 High FINAL Ruiz Raya [address] [id number] 0 Phone: () - 08/30 CMP GFR estim ate ml/min /1.73m ^2 45.0 Low GFR is calculate d using the CKD-EPI equation. FINAL Ruiz Carmona[address] [phone] 0 Phone: () - 08/30 CMP Gluco se mg/dL 73.0 126.0 [address]iz Raya [address] [id number] 0 Phone: () - 08/30 CMP Potas sium mmol/L 3.5 5.1 4.4 FINAL Ruiz Carmona[address] [id number] 0 Phone: () - 08/30 CMP Sodiu m mmol/L 136.0 145.0 142 FINAL Ruiz Raya [facility] Oncology - [address] [id number] 0 Phone: () - 08/30 CMP Bilir ubin, total mg/dL 0.3 1.2 0.[address] Ruiz Raya [address] [id number] 0 Phone: () - 08/30 CMP Total prote in g/dL 5.7 8.2 6.[address] Ruiz Raya [address] [id number] 0 Phone: () - 08/30 BCR-A BL [...] Anna Burgess, PhD, FACMGDire ctor, Molecular OncologyL [facility] Center for Molecular Biology and [place] [address] [phone] davis 01This assay can detect three [...] are specific for BCR-ABL1 e13a2, e14a2 and [id number] n transcrip ts. The ABL1 transcrip t [...] --------- --------- -----Perf ormed at:[address] M[address] [facility] [id number] [employer] [place] [address] 3Amikayla Webb [facility], Phone: [phone] [facility] [id number] [place] [address] 0Eddie Webb [facility], Phone: Perfor [facility] at: 01 - [facility] [id number] [place], [place] [id number] Choreography Director: Eddie Webb [facility], Phone: [phone] FINAL Ruiz Raya 03/06 BCR-A BL [...] Note 01Petey Burgess, PhD, FACDire ctor, Molecular OncologyBeaumont Hospital for Molecular Biology and Pathology [place], [place] [address] [phone] nd 01This assay can detect three [...] are specific for BCR-ABL1 e13a2, e14a2 and [id number] n transcrip ts. The ABL1 transcrip t [...] --------- --------- -----Perf ormed at:[address] [facility] [id number] [employer] [place] [address] 3Amikayla Webb [facility], Phone: [phone] TG [facility] [id number] [place] [address] Edis Webb [facility], Phone: Perfor med at: 01 - [facility] [id number] [employer] [place], [place] [id number] Choreography Director: Eddie Webb [facility], Phone: [phone] FINAL Ruiz Raya 03/06 CBC w/ auto diff WBC K/uL 3.0 8.9 5.8 FINAL Ruiz Terrazas [facility], [address] [place] [address] [id number] 0 Phone: () - 03/06 CBC w/ auto diff HGB g/dL 11.3 15.2 14.0 FINAL Ruiz Carmona[address] [id number] 0 Phone: () - 03/06 CBC w/ auto diff PLT K/uL 113.0 364.0 174 FINAL Ruiz Carmona[address] [id number] 0 Phone: () - 03/06 CBC w/ auto diff Augustus # (ANC) K/uL 1.6 6.6 3.6 FINAL Ruiz Carmona[address] [id number] 0 Phone: () - 03/06 CBC w/ auto diff Augustus % % 43.0 74.0 61.8 FINAL Ruiz [place] [address] [id number] 0 Phone: () - 03/06 CBC w/ auto diff IG % % 0.0 0.5 0.2 FINAL Ruiz Carmona[address] [id number] 0 Phone: () - 03/06 CBC w/ auto diff IG # K/uL 0.0 0.03 0.01 FINAL Ruiz Carmona[address] [id number] 0 Phone: () - 03/06 CBC w/ auto diff LY % % 14.0 41.0 26.9 FINAL Ruiz Carmona[address] [id number] 0 Phone: () - 10/18 /2021 CBC w/ auto diff MO % % 6.0 15.0 9.4 FINAL [facility] [place], [address] [place] [address] 210 [place] [id number] 0 Phone: () - 03/06 CBC w/ auto diff EO % % 0.0 7.0 1.2 FINAL Ruiz Terrazas On[facility] - [place], [address] [place] [address] 210 [place] [id number] 0 Phone: () - 03/06 CBC w/ auto diff BA % % 0.0 2.0 0.5 FINAL [facility] [place], [address] [place] [address] 210 [place] [id number] 0 Phone: () - 03/06 CBC w/ auto diff LY # K/uL 0.4 3.6 1.6 FINAL [facility], [address] [place] [address] 210 [place] [id number] 0 Phone: () - 03/06 CBC w/ auto diff MO # K/uL 0.2 1.3 0.6 FINAL [facility], [address] [place] [address] 210 [place] [phone] 0 Phone: () - 03/06 CBC w/ auto diff EO # K/uL 0.0 0.6 0.1 FINAL Ruiz Carmona toni [facility], [address] [place] [address] 210 [place] [id number] 0 Phone: () - 03/06 CBC w/ auto diff BA # K/uL 0.0 0.2 0.0 FINAL [facility] - [place], [address] [place] [address] 210 [place] [phone] 0 Phone: () - 03/06 CBC w/ auto diff NRBC % #/100W BC 0.0 0.2 0.0 FINAL [facility], [address] [place] [address] 210 [place] [id number] 0 Phone: () - 03/06 CBC w/ auto diff RBC M/uL 3.9 5.1 4.42 FINAL [facility], [address] [place] [address] 210 [facility] [id number] 0 Phone: () - 03/06 CBC w/ auto diff HCT % 35.0 48.0 41.8 FINAL [facility], [address] [place] [address] 210 [facility] [id number] 0 Phone: () - 03/06 CBC w/ auto diff MCV fL 80.0 104.0 94.6 FINAL [facility], [address] [place] [address] 210 [facility] [id number] 0 Phone: () - 03/06 CBC w/ auto diff MCH pg 26.0 35.0 31.7 FINAL Ruiz CarmonaSouth [facility], [address] [place] [address] 210 [facility] [phone] 0 Phone: () - 03/06 CBC w/ auto diff MCHC g/dL 30.0 35.0 33.5 FINAL [facility], [address] [place] [address] 210 [facility] [phone] 0 Phone: () - 03/06 CBC w/ auto diff MPV fL 9.5 13.4 9.6 FINAL [facility]South [facility], [address] [place] [address] 210 [facility] [id number] 0 Phone: () - 03/06 CBC w/ auto diff RDW % 11.4 16.1 12.20 FINAL [facility], [address] [place] [address] 210 [facility] [phone] 0 Phone: () - 03/06 CMP Album in g/dL 3.2 5.2 4.8 FINAL [facility], [address] [facility] [address] [place] [address] [place] [phone] 0 Phone: () - 03/06 CMP Alkal ine phosp hatas e U/L 46.0 116.0 107 FINAL Ruiz Raya [facility], [address] [facility] [address] [place] [phone] 0 Phone: () - 03/06 CMP ALT/S GPT U/L 7.0 40.0 20 FINAL Ruiz Rousey [facility]. [place], [address] [phone] 0 Phone: () - 03/06 CMP AST/S GOT U/L 13.0 40.0 24 FINAL Ruiz Terrazas [facility] [address] [id number] 0 Phone: () - 03/06 CMP BUN mg/dL 9.0 23.0 12 FINAL [place] [address] [phone] 0 Phone: () - 03/06 CMP Calci um mg/dL 8.7 10.4 10.3 FINAL [place] [address] [id number] 0 Phone: () - 03/06 CMP Chlor rakan mmol/L 96.0 114.0 107 FINAL Ruiz Raya [place] [address] [phone] 0 Phone: () - 03/06 CMP CO2 [...] 96 hour stability window. FINAL Ruiz Terrazas [place] [address] [phone] 0 Phone: () - 03/06 CMP Creat inine mg/dL 0.5 1.2 1.11 FINAL Ruiz Raya [place] [address] [id number] 0 Phone: () - 03/06 CMP GFR estim ate ml/min /1.73m ^2 51.3 Low GFR is calculate d using the CKD-EPI equation. FINAL [place] [address] [phone] 0 Phone: () - 03/06 CMP Gluco se mg/dL 73.0 126.0 98 FIN[facility], [address] [facility] [id number] 0 Phone: () - 03/06 CMP Potas sium mmol/L 3.5 5.1 4.5 FINAL [facility], [address] [facility] [phone] 0 Phone: () - 03/06 CMP Sodiu m mmol/L 136.0 145.0 142 FINAL Ruiz [facility], [address] [facility] [id number] 0 Phone: () - 03/06 CMP Bilir ubin, total mg/dL 0.3 1.2 0.7 FINAL [facility], [address] [facility] [id number] 0 Phone: () - 03/06 CMP Total prote in g/dL 5.7 8.2 7.4 FINAL [facility], [address] [facility] [id number] 0 Phone: () - 08/23 BCR/A BL1, p210 Resul t see interpr etation FINAL [facility] 08/23 Speci men Type EDTA Whole Blood FINAL [facility] 08/23 Final Diagn osis: SEE COMMENT S [...] all possible fusionfor ms. Please contact the [facility] or[facility] at with questions or if additiona ltesting is required. See the [facility] Labor[facility] iesInterp retive Handbook for method details.T [...] performan ce character isticsdet ermined by [facility] in a manner consisten t with Navdeep rements. This test has not been cleared or approved bythe U.S. Food and Drug Administr ation.Jane t Performed by:[address] [id number] Director: Michael Reid M.D. Ph.D.; CLIA# [id number] 2 FINAL Kennedy Ungmichaelub 08/23 CBC w/ auto diff WBC K/uL 3.0 8.9 4.5 FINAL Kennedy Doloresub [facility] [place], [address] [place] [address] 210 [facility] [phone] 0 Phone: () - 08/23 CBC w/ auto diff HGB g/dL 11.3 15.2 13.8 FINAL Kennedy Bernalub [facility] [place], [address] [place] [address] 210 [facility] [id number] 0 Phone: () - 08/23 CBC w/ auto diff PLT K/uL 113.0 364.0 150 FINAL Kennedy Carmonaot a [facility], [address] [place] [address] 210 [facility] [id number] 0 Phone: () - 08/23 CBC w/ auto diff Aguustus # (ANC) K/uL 1.6 6.6 2.4 FINAL Kennedy Carmonaot a [facility] [place], [address] [place] [address] 210 [place] [phone] 0 Phone: () - 08/23 CBC w/ auto diff Augustus % % 43.0 74.0 53.6 FINAL Kennedy Bernalub [facility] [place], [address] [place] [address] 210 [place] [phone] 0 Phone: () - 08/23 CBC w/ auto diff IG % % 0.0 0.5 0.2 FINAL Kennedy Doloresub [facility] [address] 210 [place] [phone] 0 Phone: () - 08/23 CBC w/ auto diff IG # K/uL 0.0 0.03 0.01 FINAL Kennedyeddie Bernalub [facility] [address] 210 [place] [phone] 0 Phone: () - 08/23 CBC w/ auto diff LY % % 14.0 41.0 32.2 FINAL Kennedy Unglaub [facility] [place], [address] [place] [address] 210 [place] [phone] 0 Phone: () - 08/23 CBC w/ auto diff MO % % 6.0 15.0 11.3 FINAL Kennedy Unglaub [facility] [place], [address] [place] [address] 210 [facility] [id number] 0 Phone: () - 08/23 CBC w/ auto diff EO % % 0.0 7.0 1.8 FINAL [place]aub [place] [facility] [place], [address] [place] [address] 210 [facility] [id number] 0 Phone: () - 08/23 CBC w/ auto diff BA % % 0.0 2.0 0.9 FINAL [place]aub [place] [facility], [address] [place] [address] 210 [facility] [id number] 0 Phone: () - 08/23 CBC w/ auto diff LY # K/uL 0.4 3.6 1.5 FINAL Kennedy Ungmichaelub [place] [facility] [place], [address] [place] [address] 210 [facility] [phone] 0 Phone: () - 08/23 CBC w/ auto diff MO # K/uL 0.2 1.3 0.5 FINAL [place] Ungmichaelub [place] [facility], [address] [place] [address] 210 [facility] [id number] 0 Phone: () - 08/23 CBC w/ auto diff EO # K/uL 0.0 0.6 0.1 FINAL Kennedy Unglaub [facility] [place], [address] [place] [address] 210 [place] [phone] 0 Phone: () - 08/23 CBC w/ auto diff BA # K/uL 0.0 0.2 0.0 FINAL Kennedy Unglaub [facility] [place], [address] [place] [address] 210 [place] [phone] 0 Phone: () - 08/23 CBC w/ auto diff NRBC % #/100W BC 0.0 0.2 0.0 FINAL Kennedy Carmona a [facility], [address] [place] [address] 210 [place] [id number] 0 Phone: () - 08/23 CBC w/ auto diff RBC M/uL 3.9 5.1 4.34 FINAL Kennedy Carmona toni [facility], [address] [place] [address] 210 [place] [phone] 0 Phone: () - 08/23 CBC w/ auto diff HCT % 35.0 48.0 41.0 FINAL [facility], [address] [place] [address] 210 [place] [id number] 0 Phone: () - 08/23 CBC w/ auto diff MCV fL 80.0 104.0 94.5 FINAL [facility], [address] [place] [address] 210 [place] [phone] 0 Phone: () - 08/23 CBC w/ auto diff MCH pg 26.0 35.0 31.8 FINAL Kennedy [facility], [address] [place] [address] 210 [place] [phone] 0 Phone: () - 08/23 CBC w/ auto diff MCHC g/dL 30.0 35.0 33.7 FINAL Kennedy Carmona toni [facility], [address] [place] [address] 210 [place] [phone] 0 Phone: () - 08/23 CBC w/ auto diff MPV fL 9.5 13.4 9.5 FINAL Kennedy [facility], [address] [place] [address] 210 [place] [phone] 0 Phone: () - 08/23 CBC w/ auto diff RDW % 11.4 16.1 12.80 FINAL Kennedy [facility]onaSouth [facility], [address] [place] [address] 210 [place] [phone] 0 Phone: () - 08/23 CMP Album in g/dL 3.2 5.2 4.4 FINAL Kennedy Carmona a [facility], [address] [facility] 100 [place] [id number] 0 Phone: () - 08/23 CMP Alkal ine phosp hatas e U/L 46.0 116.0 91 FINAL [facility], [facility] N [facility] [address] [phone] 0 Phone: () - 08/23 CMP ALT/S GPT U/L 7.0 40.0 19 FINAL [place] [address] [address] [facility] [address] [id number] 0 Phone: () - 08/23 CMP AST/S GOT U/L 13.0 40.0 22 FINAL [place] [address] [address] [facility] [address] [id number] 0 Phone: () - 08/23 CMP BUN mg/dL 9.0 23.0 16 FINAL [place] [address] [id number] 0 Phone: () - 08/23 CMP Calci um mg/dL 8.7 10.4 9.8 FINAL [place] [address] [id number] 0 Phone: () - 08/23 CMP CO2 [...] the 96 hour stability window. FINAL [facility], [facility] N [facility] [address] [phone] 0 Phone: () - 08/23 CMP Creat inine mg/dL 0.5 1.2 0.99 FINAL [place] [address] [address] [facility] [address] [place] [address] [phone] 0 Phone: () - 08/23 CMP GFR estim ate ml/min /1.73m ^2 62.3 GFR is calculate d using the CKD-EPI equation. FINAL [facility], [address] [id number] 0 Phone: () - 08/23 CMP Gluco se mg/dL 73.0 126.0 100 FINAL [place] [address] [id number] 0 Phone: () - 08/23 CMP Potas sium mmol/L 3.5 5.1 4.4 FINAL [place] [address] [id number] 0 Phone: () - 08/23 CMP Sodiu m mmol/L 136.0 145.0 144 FINAL [place] [address] [id number] 0 Phone: () - 08/23 CMP Bilir ubin, total mg/dL 0.3 1.2 0.7 FINAL Kennedy [facility] [place] [address] [phone] 0 Phone: () - 08/23 CMP Chlor rakan mmol/L 96.0 114.0 108 FINAL [place] [address] [id number] 0 Phone: () - 08/23 CMP Total prote in g/dL 5.7 8.2 6.5 FINAL [place] [address] [id number] 0 Phone: () - 03/13 BCR/A BL1, [...] all possible fusionfor ms. Please contact the [facility] oratory at with questions or if additiona ltesting is required. See the [facility] Labor[facility] iesInterp retive Handbook for method details.T [...] performan ce character isticsdet ermined by [facility] in a manner consisten t with CLIArequi rements. This test has not been cleared or approved bythe U.S. Food and Drug Administr atcarteret health care.Jane t Performed by:[address] Director: Michael Reid M.D. Ph.D.; CLIA# [id number] 2 FINAL Ruiz Hafe 03/13 CBC w/ auto diff HGB g/dL 11.3 15.2 14.6 FINAL Ruiz Raya [address] [phone] 0 Phone: () - 03/13 CBC w/ auto diff Augustus # (ANC) K/uL 1.6 6.6 5.3 FINAL Ruiz Raya [address] [id number] 0 Phone: () - 03/13 CBC w/ auto diff IG % % 0.0 0.5 0.3 FINAL Ruiz Carmona[address] [id number] 0 Phone: () - 03/13 CBC w/ auto diff IG # K/uL 0.0 0.03 0.02 FINAL Ruiz Raya [address] [phone] 0 Phone: () - 03/13 CBC w/ auto diff MO % % 6.0 15.0 9.4 FINAL Ruiz Carmona[address] [id number] 0 Phone: () - 03/13 CBC w/ auto diff WBC K/uL 3.0 8.9 7.7 FINAL Ruiz muñoz [facility] [place], [address] [place] [address] 210 [place] [phone] 0 Phone: () - 03/13 CBC w/ auto diff PLT K/uL 113.0 364.0 160 FINAL Ruiz muñoz [facility], [address] [place] [address] 210 [place] [phone] 0 Phone: () - 03/13 CBC w/ auto diff Augustus % % 43.0 74.0 69.5 FINAL [facility], [address] [place] [address] 210 [place] [phone] 0 Phone: () - 03/13 CBC w/ auto diff LY % % 14.0 41.0 19.5 FINAL Ru[facility], [address] [place] [address] 210 [place] [phone] 0 Phone: () - 03/13 CBC w/ auto diff EO % % 0.0 7.0 0.9 FINAL Ru[facility], [address] [place] [address] 210 [place] [id number] 0 Phone: () - 03/13 CBC w/ auto diff BA % % 0.0 2.0 0.4 FINAL Ru[facility], [address] [place] [address] 210 [place] [id number] 0 Phone: () - 03/13 CBC w/ auto diff LY # K/uL 0.4 3.6 1.5 FINAL Ru[facility], [address] [place] [address] 210 [place] [phone] 0 Phone: () - 03/13 CBC w/ auto diff MO # K/uL 0.2 1.3 0.7 FINAL Ru[facility], [address] [place] [address] 210 [place] [id number] 0 Phone: () - 03/13 CBC w/ auto diff EO # K/uL 0.0 0.6 0.1 FINAL Ru[facility], [address] [place] [address] 210 [place] [phone] 0 Phone: () - 03/13 CBC w/ auto diff BA # K/uL 0.0 0.2 0.0 FINAL Ruiz Carmona toni [facility], [address] [place] [address] 210 [facility] [id number] 0 Phone: () - 03/13 CBC w/ auto diff NRBC % #/100W BC 0.0 0.2 0.0 FINAL Ru[facility], [address] [place] [address] 210 [facility] [id number] 0 Phone: () - 03/13 CBC w/ auto diff RBC M/uL 3.9 5.1 4.58 FINAL Ruiz Carmona[address] 210 [facility] [id number] 0 Phone: () - 03/13 CBC w/ auto diff HCT % 35.0 48.0 45.2 FINAL Ruiz Caromna[address] 210 [facility] [id number] 0 Phone: () - 03/13 CBC w/ auto diff MCV fL 80.0 104.0 98.7 FINAL [facility], [address] [place] [address] 210 [facility] [id number] 0 Phone: () - 03/13 CBC w/ auto diff MCH pg 26.0 35.0 31.9 FINAL [facility], [address] [place] [address] 210 [facility] [id number] 0 Phone: () - 03/13 CBC w/ auto diff MCHC g/dL 30.0 35.0 32.3 FINAL [facility], [address] [place] [address] 210 [place] [id number] 0 Phone: () - 03/13 CBC w/ auto diff MPV fL 9.5 13.4 9.7 FINAL Ruiz Carmona[address] 210 [place] [phone] 0 Phone: () - 03/13 CBC w/ auto diff RDW % 11.4 16.1 12.90 FINAL Ruiz Rousey [facility] [address] [facility] [address] [facility] [id number] 0 Phone: () - 03/13 CMP Album in g/dL 3.2 5.2 4.5 FINAL Ruiz Terrazas [facility], [address] [facility] 100 [facility] [phone] 0 Phone: () - 03/13 CMP Alkal ine phosp hatas e U/L 46.0 116.0 103 FINAL Ruiz Terrazas [facility] [address] [facility] 100 [facility] [id number] 0 Phone: () - 03/13 CMP ALT/S GPT U/L 7.0 40.0 19 FINAL [place] [address] [address] [facility] 100 [facility] [id number] 0 Phone: () - 03/13 CMP AST/S GOT U/L 13.0 40.0 23 FINAL Ruiz Raya [place] [address] [address] [facility] 100 [facility] [id number] 0 Phone: () - 03/13 CMP BUN mg/dL 9.0 23.0 13 FINAL [place] [address] [address] [facility] 100 [facility] [id number] 0 Phone: () - 03/13 CMP Calci um mg/dL 8.7 10.4 10.5 High FINAL Ruiz Raya [place] [address] [id number] 0 Phone: () - 03/13 CMP Chlor rakan mmol/L 96.0 114.0 107 FINAL Ruiz Raya [place] [address] [id number] 0 Phone: () - 03/13 CMP CO2 [...] 96 hour stability window. FINAL Ruiz Terrazas [facility] N [address] [id number] 0 Phone: () - 03/13 CMP Creat inine mg/dL 0.5 1.2 1.25 High FINAL Ruiz Terrazas [facility] [address] [phone] 0 Phone: () - 03/13 CMP GFR estim ate ml/min /1.73m ^2 46.9 Low GFR is calculate d using the CKD-EPI equation. FINAL [place] [address] [phone] 0 Phone: () - 03/13 CMP Gluco se mg/dL 73.0 126.0 111 FINAL [place] [address] [id number] 0 Phone: () - 03/13 CMP Potas sium mmol/L 3.5 5.1 4.2 FINAL Riuz Raya [place] [address] [id number] 0 Phone: () - 03/13 CMP Sodiu m mmol/L 136.0 145.0 144 FINAL [place] [address] [id number] 0 Phone: () - 03/13 CMP Bilir ubin, total mg/dL 0.3 1.2 0.8 FINAL Ruiz Raya [place] [address] [id number] 0 Phone: () - 03/13 CMP Total prote in g/dL 5.7 8.2 6.7 FINAL Ruiz Raya [place] [address] [id number] 0 Phone: () - 09/11 CBC w/ auto diff WBC K/uL 3.0 8.9 5.7 FINAL [facility], [address] [place] [address] [address] [facility] [id number] 0 Phone: () - 09/11 CBC w/ auto diff HGB g/dL 11.3 15.2 13.8 FINAL [place]gm[place]ub [place] [facility], [address] [place] [address] 210 [place] [phone] 0 Phone: () - 09/11 CBC w/ auto diff PLT K/uL 113.0 364.0 167 FINAL [place]glaub [place] [facility], [address] [place] [address] 210 [place] [phone] 0 Phone: () - 09/11 CBC w/ auto diff Augustus # (ANC) K/uL 1.6 6.6 3.7 FINAL [place]gm[place]ub [place] [facility], [address] [place] [address] 210 [facility] [id number] 0 Phone: () - 09/11 CBC w/ auto diff Augustus % % 43.0 74.0 64.2 FINAL [place] Ungm[place]ub [place] [facility], [address] [place] [address] 210 [facility] [id number] 0 Phone: () - 09/11 CBC w/ auto diff IG % % 0.0 0.5 0.2 FINAL [place] Ungm[place]ub [place] [facility], [address] [place] [address] 210 [place] [id number] 0 Phone: () - 09/11 CBC w/ auto diff IG # K/uL 0.0 0.03 0.01 FINAL [place]gm[place]ub [place] [facility], [address] [place] [address] 210 [facility] [id number] 0 Phone: () - 09/11 CBC w/ auto diff LY % % 14.0 41.0 24.0 FINAL [place] Ungm[place]ub [place] [facility], [address] [place] [address] 210 [place] [phone] 0 Phone: () - 09/11 CBC w/ auto diff MO % % 6.0 15.0 9.9 FINAL [place] Ungm[place]ub [place] [facility], [address] [place] [address] 210 [place] [id number] 0 Phone: () - 09/11 CBC w/ auto diff EO % % 0.0 7.0 1.2 FINAL Kennedy Unglaub [facility] [place], [address] [place] [address] 210 [place] [phone] 0 Phone: () - 09/11 CBC w/ auto diff BA % % 0.0 2.0 0.5 FINAL Kennedy Doloresub [facility] [place], [address] [place] [address] 210 [place] [phone] 0 Phone: () - 09/11 CBC w/ auto diff LY # K/uL 0.4 3.6 1.4 FINAL Kennedy Doloresub [facility] [place], [address] [place] [address] 210 [place] [phone] 0 Phone: () - 09/11 CBC w/ auto diff MO # K/uL 0.2 1.3 0.6 FINAL Kennedyeddie Carmonaot a [facility] [place], [address] [place] [address] 210 [place] [phone] 0 Phone: () - 09/11 CBC w/ auto diff EO # K/uL 0.0 0.6 0.1 FINAL Kennedy Carmonaot a [facility] [place], [address] [place] [address] 210 [place] [phone] 0 Phone: () - 09/11 CBC w/ auto diff BA # K/uL 0.0 0.2 0.0 FINAL Kennedy Carmonaot a [facility] [place], [address] [place] [address] 210 [place] [phone] 0 Phone: () - 09/11 CBC w/ auto diff NRBC % #/100W BC 0.0 0.2 0.0 FINAL Kennedy Carmonaot a [facility] [place], [address] [place] [address] 210 [place] [phone] 0 Phone: () - 09/11 CBC w/ auto diff RBC M/uL 3.9 5.1 4.38 FINAL Kennedy Doloresub [place] [facility] [place], [address] [place] [address] 210 [place] [phone] 0 Phone: () - 09/11 CBC w/ auto diff HCT % 35.0 48.0 42.8 FINAL Kennedy Doloresub [place] [facility] [place], [address] [place] [address] 210 [facility] [phone] 0 Phone: () - 09/11 CBC w/ auto diff MCV fL 80.0 104.0 97.7 FINAL [place]gmichaelub [place] [facility] - [address] 210 [place] [id number] 0 Phone: () - 09/11 CBC w/ auto diff MCH pg 26.0 35.0 31.5 FINAL [place]ub [place] [address] 210 [place] [phone] 0 Phone: () - 09/11 CBC w/ auto diff MCHC g/dL 30.0 35.0 32.2 FINAL [place] [address] 210 [facility] [phone] 0 Phone: () - 09/11 CBC w/ auto diff MPV fL 9.5 13.4 9.3 Low FINAL [place]ub [place] [address] 210 [place] [phone] 0 Phone: () - 09/11 CBC w/ auto diff RDW % 11.4 16.1 12.70 FINAL Kennedy Doloresub [place] [facility] [address] 210 [place] [phone] 0 Phone: () - 09/11 PRIOR RESUL T Not Given FINAL Kennedy Unglaub [facility] [address] [place] [id number] 4 09/11 SOUR E: Periphe ral Blood FINAL Kennedy Unglaub [facility] [address] [place] [id number] 4 09/11 BCR ABL1/ ABL1 % % 0.000 FINAL Kennedy Unglaub [facility] [address] [place] [id number] 4 09/11 BCR ABL1/ ABL1 % (IS) % 0.000 FINAL Kennedy Unglaub [facility] [address] [place] [id number] 4 09/11 INTER PRETA TION see note [...] l informati on, please refer tohttp:// education .Melodigram/faq/F AQ72(This link is being provided forinform ational/e ducationa l purposes only.)Ass ay sensitivi ty is at least 4.5-logs below baselineB CR-ABL1 transcrip t levels but is dependent onquantit y and quality of RNA used for testing and thecellul arity of the sample.Th is test was developed and its analytica lperforma nce character istics have been determine dby [facility] , [place], [place].It has not been cleared or approved by the FDA. Thisassay has been validated pursuant to the CLIAregul ations and is used for clinical purposes. Meera drake, Ph.D., [facility] PHILADELPHIATech nical Director, Molecular Oncology FINAL Kennedy Unglaub [facility] [address] [place] [id number] 4 09/11 P190 BCR ABL1 Not Detecte d FINAL Kennedy Unglaub [facility] [address] [place] [id number] 4 09/11 P210 BCR ABL1 Not Detecte d FINAL Kennedy Unglaub [facility] [address] [place] [id number] 4 09/11 CMP Album in g/dL 3.2 5.2 4.5 FINAL Kennedy muñoz [facility], [facility] [address] [place] [address] [phone] 0 Phone: () - 09/11 CMP Alkal ine phosp hatas e U/L 46.0 116.0 111 FINAL [place] [address] [place] [address] [id number] 0 Phone: () - 09/11 CMP ALT/S GPT U/L 7.0 40.0 22 FINAL [place] [address] [place] [address] [id number] 0 Phone: () - 09/11 CMP AST/S GOT U/L 13.0 40.0 20 FINAL [place] [address] [place] [address] [id number] 0 Phone: () - 09/11 CMP BUN mg/dL 9.0 23.0 10.0 FINAL [place] [address] [place] [address] [id number] 0 Phone: () - 09/11 CMP Calci um mg/dL 8.7 10.4 9.7 FINAL [place] [address] [place] [address] [phone] 0 Phone: () - 09/11 CMP Chlor rakan mmol/L 96.0 114.0 109 FINAL [facility], [address] [place] [address] [phone] 0 Phone: () - 09/11 CMP CO2 [...] the 96 hour stability window. FINAL [facility], [facility] N [address] [phone] 0 Phone: () - 09/11 CMP Creat inine mg/dL 0.5 1.2 1.05 FINAL Kennedy muñoz [place] [address] [id number] 0 Phone: () - 09/11 CMP GFR estim ate ml/min /1.73m ^2 57.6 Low GFR is calculate d using the CKD-EPI equation. FINAL Kennedy muñoz [place] [address] [id number] 0 Phone: () - 09/11 CMP Gluco se mg/dL 73.0 126.0 104 FINAL Kennedy muñoz [place] [address] [phone] 0 Phone: () - 09/11 CMP Potas sium mmol/L 3.5 5.1 4.3 FINAL Kennedy Carmona toni [place] [address] [phone] 0 Phone: () - 09/11 CMP Sodiu m mmol/L 136.0 145.0 145 FINAL Kennedy Carmona toni [place] [address] [phone] 0 Phone: () - 09/11 CMP Bilir ubin, total mg/dL 0.3 1.2 0.9 FINAL Kennedy Carmona toni [place] [address] [phone] 0 Phone: () - 09/11 CMP Total prote in g/dL 5.7 8.2 6.9 FINAL Kennedy Carmona toni [place] [address] [id number] 0 Phone: () - 11/16 iSTAT creat inine panel Creat inine , iSTAT mg/dl 0.6 1.3 0.9 FINAL Nicole Ya Nini muñoz [facility], [address] [facility] [phone] 0 Phone: () - 11/16 Xi hermosillo inyisel panel GFR estim ate ml/min /1.73m ^2 69.3 GFR is calculate d using the CKD-EPI equation. FINAL Nicole muñoz [facility] [place], [address] [place] [phone] 0 Phone: () - 11/16 CBC w/ auto diff WBC K/uL 3.0 8.9 7.6 FINAL Nicole muñoz [facility] - [place], [address] [place] [id number] 0 Phone: () - 11/16 CBC w/ auto diff HGB g/dL 11.3 15.2 13.4 FINAL Nicole muñoz [facility] - [place], [address] [place] [id number] 0 Phone: () - 11/16 CBC w/ auto diff PLT K/uL 113.0 364.0 162 FINAL Nicole muñoz [facility] - [place], [address] [place] [id number] 0 Phone: () - 11/16 CBC w/ auto diff Augustus # (ANC) K/uL 1.6 6.6 6.7 High FINAL Nicole muñoz [facility] - [place], [address] [place] [id number] 0 Phone: () - 11/16 CBC w/ auto diff Augustus % % 43.0 74.0 88.7 High FINAL Nicole muñoz [facility] - [place], [address] [place] [id number] 0 Phone: () - 11/16 CBC w/ auto diff IG % % 0.0 0.5 0.7 High FINAL Nicole muñoz [facility] - [place], [address] [place] [id number] 0 Phone: () - 11/16 CBC w/ auto diff IG # K/uL 0.0 0.03 0.05 High FINAL Nicole Carmonaot a [facility] - [place], [address] [place] [id number] 0 Phone: () - 11/16 CBC w/ auto diff LY % % 14.0 41.0 8.8 Low FINAL Nicole Carmonaot a [facility] - [place], [address] [place] [id number] 0 Phone: () - 11/16 CBC w/ auto diff MO % % 6.0 15.0 1.8 Low FINAL Nicole Carmonaot a [facility] - [place], [address] [place] [id number] 0 Phone: () - 11/16 CBC w/ auto diff EO % % 0.0 7.0 0.0 FINAL Nicole Carmonaot a [facility] - [place], [address] [place] [id number] 0 Phone: () - 11/16 CBC w/ auto diff BA % % 0.0 2.0 0.0 FINAL Nicole Carmonaot a [facility] - [place], [address] [place] [phone] 0 Phone: () - 11/16 CBC w/ auto diff LY # K/uL 0.4 3.6 0.7 FINAL Nicole Terrazas a [facility] - [place], [address] [place] [id number] 0 Phone: () - 11/16 CBC w/ auto diff MO # K/uL 0.2 1.3 0.1 Low FINAL Nicole Carmonaot a [facility] - [place], [address] [place] [id number] 0 Phone: () - 11/16 CBC w/ auto diff EO # K/uL 0.0 0.6 0.0 FINAL Nicole Carmonaot a [facility] - [place], [address] [place] [id number] 0 Phone: () - 11/16 CBC w/ auto diff BA # K/uL 0.0 0.2 0.0 FINAL Nicole Carmonaot a [facility] - [place], [address] [place] [id number] 0 Phone: () - 11/16 CBC w/ auto diff NRBC % #/100W BC 0.0 0.2 0.0 FINAL Nicole Carmonaot a [facility] - [place], [address] [place] [id number] 0 Phone: () - 11/16 CBC w/ auto diff RBC M/uL 3.9 5.1 4.16 FINAL Nicole Terrazas a [facility] - [place], [address] [place] [id number] 0 Phone: () - 11/16 CBC w/ auto diff HCT % 35.0 48.0 39.7 FINAL Nicole Felton Mathewot a [facility] - [place], [address] [place] [id number] 0 Phone: () - 11/16 CBC w/ auto diff MCV fL 80.0 104.0 95.4 FINAL Nicole muñoz [facility] - [place], [address] [place] [id number] 0 Phone: () - 11/16 CBC w/ auto diff MCH pg 26.0 35.0 32.2 FINAL Nicole Ya Nini a [facility] - [place], [address] [place] [id number] 0 Phone: () - 11/16 CBC w/ auto diff MCHC g/dL 30.0 35.0 33.8 FINAL Nicole Carmonaot a [facility] - [place], [address] [place] [id number] 0 Phone: () - 11/16 CBC w/ auto diff MPV fL 9.5 13.4 9.3 Low FINAL Nicole Ya Mathewot a [facility] - [place], [address] [place] [id number] 0 Phone: () - 11/16 CBC w/ auto diff RDW % 11.4 16.1 11.90 FINAL Nicole muñoz On[facility], [address] [facility] [id number] 0 Phone: () - 11/16 CMP Album in g/dL 3.2 5.2 4.5 FINAL [facility] [address] [place] [address] [phone] 0 Phone: () - 11/16 CMP Alkal ine phosp hatas e U/L 46.0 116.0 91 FINAL [place] [address] [id number] 0 Phone: () - 11/16 CMP ALT/S GPT U/L 7.0 40.0 15 FINAL Nicole [place] [address] [id number] 0 Phone: () - 11/16 CMP AST/S GOT U/L 13.0 40.0 18 FINAL Nicole [place] [address] [id number] 0 Phone: () - 11/16 CMP BUN mg/dL 9.0 23.0 16.0 FINAL Nicole [place] [address] [id number] 0 Phone: () - 11/16 CMP Calci um mg/dL 8.7 10.4 9.8 FINAL [place] [address] [id number] 0 Phone: () - 11/16 CMP Chlor rakan mmol/L 96.0 114.0 109 FINAL [place] [address] [id number] 0 Phone: () - 11/16 CMP CO2 [...] 96 hour stability window. FINAL Nicole Terrazas [place] [address] [id number] 0 Phone: () - 11/16 CMP Creat inine mg/dL 0.5 1.2 0.88 FINAL Nicole Carmona[address] [id number] 0 Phone: () - 11/16 CMP GFR estim ate ml/min /1.73m ^2 71.2 GFR is calculate d using the CKD-EPI equation. FINAL Nicole Carmona[address] [id number] 0 Phone: () - 11/16 CMP Gluco se mg/dL 73.0 126.0 152 High FINAL Nicole Carmona[address] [id number] 0 Phone: () - 11/16 CMP Potas sium mmol/L 3.5 5.1 4.2 FINAL Nicole Carmona[address] [id number] 0 Phone: () - 11/16 CMP Sodiu m mmol/L 136.0 145.0 142 FINAL [place] [address] [id number] 0 Phone: () - 11/16 CMP Bilir ubin, total mg/dL 0.3 1.2 0.6 FINAL Nicole Carmona[address] [id number] 0 Phone: () - 11/16 CMP Total prote in g/dL 5.7 8.2 6.8 FINAL [place] [address] [id number] 0 Phone: () - 11/21 Smear revie w panel CBC Smear revie w comme nts Consist ent with reporte d results Abnorma l Lymphs present Large and-or giant platele ts present FINAL Nicole Terrazas a [facility] - [place], [address] [place] [id number] 0 Phone: () - 11/21 CBC w/ auto diff WBC K/uL 3.0 8.9 1.0 Low FINAL Nicole Terrazas a [facility] - [place], [address] [place] [id number] 0 Phone: () - 11/21 CBC w/ auto diff HGB g/dL 11.3 15.2 13.2 FINAL Nicole Terrazas a [facility] - [place], [address] [place] [id number] 0 Phone: () - 11/21 CBC w/ auto diff PLT K/uL 113.0 364.0 47 Critica l hematol ogy result obtaine d Criti todd Low FINAL Nicole Terrazas a [facility] - [place], [address] [place] [id number] 0 Phone: () - 11/21 CBC w/ auto diff Augustus # (ANC) K/uL 1.6 6.6 0.4 Critica l hematol ogy result obtaine d Criti todd Low FINAL Nicole Terrazas a [facility] - [place], [address] [place] [id number] 0 Phone: () - 11/21 CBC w/ auto diff Augustus % % 43.0 74.0 34.7 Low FINAL Nicole Terrazas a [facility] - [place], [address] [place] [id number] 0 Phone: () - 11/21 CBC w/ auto diff IG % % 0.0 0.5 1.9 High FINAL Nicole Terrazas a [facility] - [place], [address] [place] [id number] 0 Phone: () - 11/21 CBC w/ auto diff IG # K/uL 0.0 0.03 0.02 FINAL Nicole Ya [place] [facility] [place], [address] [place] [id number] 0 Phone: () - 11/21 CBC w/ auto diff LY % % 14.0 41.0 56.7 High FINAL Nicole Carmonaot a [facility] - [place], [address] [place] [id number] 0 Phone: () - 11/21 CBC w/ auto diff MO % % 6.0 15.0 1.9 Low FINAL Nicole Carmonaot a [facility] - [place], [address] [place] [id number] 0 Phone: () - 11/21 CBC w/ auto diff EO % % 0.0 7.0 1.9 FINAL Nicole Carmonaot a [facility] - [place], [address] [place] [id number] 0 Phone: () - 11/21 CBC w/ auto diff BA % % 0.0 2.0 2.9 High FINAL Nicole Terrazas a [facility] - [place], [address] [place] [id number] 0 Phone: () - 11/21 CBC w/ auto diff LY # K/uL 0.4 3.6 0.6 FINAL Nicole Terrazas a [facility] - [place], [address] [place] [id number] 0 Phone: () - 11/21 CBC w/ auto diff MO # K/uL 0.2 1.3 0.0 Low FINAL Nicole Carmonaot a [facility] - [place], [address] [place] [id number] 0 Phone: () - 11/21 CBC w/ auto diff EO # K/uL 0.0 0.6 0.0 FINAL Nicole Carmonaot a [facility] - [place], [address] [place] [id number] 0 Phone: () - 11/21 CBC w/ auto diff BA # K/uL 0.0 0.2 0.0 FINAL Nicole Carmonaot a [facility] - [place], [address] [place] [id number] 0 Phone: () - 11/21 CBC w/ auto diff NRBC % #/100W BC 0.0 0.2 0.0 FINAL Nicole Carmonaot a [facility] - [place], [address] [place] [id number] 0 Phone: () - 11/21 CBC w/ auto diff RBC M/uL 3.9 5.1 4.07 FINAL Nicole muñoz [facility] [place], [address] [place] [id number] 0 Phone: () - 11/21 CBC w/ auto diff HCT % 35.0 48.0 38.4 FINAL Nicole muñoz [facility] - [place], [address] [place] [id number] 0 Phone: () - 11/21 CBC w/ auto diff MCV fL 80.0 104.0 94.3 FINAL Nicole muñoz [facility] - [place], [address] [place] [id number] 0 Phone: () - 11/21 CBC w/ auto diff MCH pg 26.0 35.0 32.4 FINAL Nicole muñoz [facility] - [place], [address] [place] [id number] 0 Phone: () - 11/21 CBC w/ auto diff MCHC g/dL 30.0 35.0 34.4 FINAL Nicole Carmonaot a [facility] - [place], [address] [place] [id number] 0 Phone: () - 11/21 CBC w/ auto diff MPV fL 9.5 13.4 10.1 FINAL Nicole Carmonaot a [facility] - [place], [address] [place] [id number] 0 Phone: () - 11/21 CBC w/ auto diff RDW % 11.4 16.1 11.80 FINAL Nicole muñoz [facility] [place], [address] [facility] [address] [place] [id number] 0 Phone: () - 11/21 CBC w/ auto diff Auto CBC comme nts Slide review to follow FINAL Nicole muñoz [facility] - [place], [address] [facility] [address] [place] [id number] 0 Phone: () - 11/21 CMP Album in g/dL 3.2 5.2 3.9 FINAL Nicole muñoz [place] [address] [id number] 0 Phone: () - 11/21 CMP Alkal ine phosp hatas e U/L 46.0 116.0 90 FINAL Nicole muñoz [place] [address] [id number] 0 Phone: () - 11/21 CMP ALT/S GPT U/L 7.0 40.0 37 FINAL Nicole Terrazas [place] [address] [id number] 0 Phone: () - 11/21 CMP AST/S GOT U/L 13.0 40.0 31 FINAL Nicole muñoz [place] [address] [id number] 0 Phone: () - 11/21 CMP BUN mg/dL 9.0 23.0 13.0 FINAL Nicole muñoz [place] [address] [facility] [address] [id number] 0 Phone: () - 11/21 CMP Calci um mg/dL 8.7 10.4 8.9 FINAL Nicole muñoz [place] [address] [id number] 0 Phone: () - 11/21 CMP Chlor rakan mmol/L 96.0 114.0 107 FINAL Nicole Terrazas [place] [address] [facility] [address] [id number] 0 Phone: () - 11/21 CMP CO2 [...] the 96 hour stability window. [facility], [address] [id number] 0 Phone: () - 11/21 CMP Creat inine mg/dL 0.5 1.2 0.83 FINAL Nicole [place] [address] [id number] 0 Phone: () - 11/21 CMP GFR estim ate ml/min /1.73m ^2 76.3 GFR is calculate d using the CKD-EPI equation. FINAL Nicole [place] [address] [id number] 0 Phone: () - 11/21 CMP Gluco se mg/dL 73.0 126.0 99 FINAL Nicoledarius [place] [address] [id number] 0 Phone: () - 11/21 CMP Potas sium mmol/L 3.5 5.1 3.8 FINAL Nicole [place] [address] [id number] 0 Phone: () - 11/21 CMP Sodiu m mmol/L 136.0 145.0 142 [facility]AL [facility] [address] [id number] 0 Phone: () - 11/21 CMP Bilir ubin, total mg/dL 0.3 1.2 1.3 High FINAL [facility] [address] [id number] 0 Phone: () - 11/21 CMP Total prote in g/dL 5.7 8.2 6.0 FINAL Nicole muñoz [facility] - [place], [address] [place] [id number] 0 Phone: () - 11/27 iSTAT creat inine panel Creat inine , iSTAT mg/dl 0.6 1.3 1.1 FINAL Nicole muñoz [facility] - [place], [address] [place] [id number] 0 Phone: () - 11/27 iSTAT creat inine panel GFR estim ate ml/min /1.73m ^2 54.4 Low GFR is calculate d using the CKD-EPI equation. FINAL Nicole muñoz [facility] - [place], [address] [place] [id number] 0 Phone: () - 11/27 iSTAT Na+/K +/Cl- panel Sodiu m, iSTAT mmol/L 138.0 146.0 137 Low Reference range adjusted 0 with implement ation of I-Stat 8+ cartridge . FINAL Nicole muñoz [facility] - [place], [address] [place] [id number] 0 Phone: () - 11/27 iSTAT Na+/K +/Cl- panel Potas sium, iSTAT mmol/L 3.5 4.9 3.4 Low Reference range adjusted 0 with implement ation of I-Stat 8+ cartridge . FINAL Nicole muñoz [facility] - [place], [address] [place] [id number] 0 Phone: () - 11/27 iSTAT Na+/K +/Cl- panel Chlor rakan, iSTAT mmol/L 98.0 109.0 99 Reference range adjusted 0 with implement ation of I-Stat 8+ cartridge . FINAL Nicole muñoz [facility] - [place], [address] [place] [id number] 0 Phone: () - 11/27 CBC w/ auto diff WBC K/uL 3.0 8.9 32.0 High FINAL Nicole Carmonaot a [facility] - [place], [address] [place] [id number] 0 Phone: () - 11/27 CBC w/ auto diff HGB g/dL 11.3 15.2 13.3 FINAL Nicole Carmonaot a [facility] - [place], [address] [place] [id number] 0 Phone: () - 11/27 CBC w/ auto diff PLT K/uL 113.0 364.0 87 Low FINAL Nicole Carmonaot a [facility] - [place], [address] [place] [id number] 0 Phone: () - 11/27 CBC w/ auto diff Augustus # (ANC) K/uL 1.6 6.6 25.7 High FINAL Nicole Carmonaot a [facility] - [place], [address] [place] [id number] 0 Phone: () - 11/27 CBC w/ auto diff Augustus % % 43.0 74.0 80.5 High FINAL Nicole Carmonaot a [facility] - [place], [address] [place] [id number] 0 Phone: () - 11/27 CBC w/ auto diff IG % % 0.0 0.5 7.6 High FINAL Nicole Carmonaot a [facility] - [place], [address] [place] [id number] 0 Phone: () - 11/27 CBC w/ auto diff IG # K/uL 0.0 0.03 2.44 High FINAL Nicole Carmonaot a [facility] - [place], [address] [place] [id number] 0 Phone: () - 11/27 CBC w/ auto diff LY % % 14.0 41.0 5.8 Low FINAL Nicole Carmonaot a [facility] - [place], [address] [place] [id number] 0 Phone: () - 11/27 CBC w/ auto diff MO % % 6.0 15.0 6.1 FINAL Nicole muñoz [facility] - [place], [address] [place] [id number] 0 Phone: () - 11/27 CBC w/ auto diff EO % % 0.0 7.0 0.0 FINAL Nicole muñoz [facility] - [place], [address] [place] [id number] 0 Phone: () - 11/27 CBC w/ auto diff BA % % 0.0 2.0 0.0 FINAL Nicole muñoz [facility] - [place], [address] [place] [id number] 0 Phone: () - 11/27 CBC w/ auto diff LY # K/uL 0.4 3.6 1.8 FINAL Nicole muñoz [facility] - [place], [address] [place] [id number] 0 Phone: () - 11/27 CBC w/ auto diff MO # K/uL 0.2 1.3 2.0 High FINAL Nicole muñoz [facility] - [place], [address] [place] [id number] 0 Phone: () - 11/27 CBC w/ auto diff EO # K/uL 0.0 0.6 0.0 FINAL Nicole muñoz [facility] - [place], [address] [place] [id number] 0 Phone: () - 11/27 CBC w/ auto diff BA # K/uL 0.0 0.2 0.0 FINAL Nicole muñoz [facility] - [place], [address] [place] [id number] 0 Phone: () - 11/27 CBC w/ auto diff NRBC % #/100W BC 0.0 0.2 0.3 High FINAL Nicole muñoz [facility] - [place], [address] [place] [id number] 0 Phone: () - 11/27 CBC w/ auto diff RBC M/uL 3.9 5.1 4.09 FINAL Nicole Ya Mathewdamaris muñoz [facility] - [place], [address] [facility] [address] [place] [id number] 0 Phone: () - 11/27 CBC w/ auto diff HCT % 35.0 48.0 38.0 FINAL Nicole Ya Mathewdamaris muñoz [facility] - [place], [address] [facility] [address] [place] [id number] 0 Phone: () - 11/27 CBC w/ auto diff MCV fL 80.0 104.0 92.9 FINAL Nicole muñoz [facility] - [place], [address] [facility] [address] [place] [id number] 0 Phone: () - 11/27 CBC w/ auto diff MCH pg 26.0 35.0 32.5 FINAL Nicole muñoz [facility] - [place], [address] [facility] [address] [place] [id number] 0 Phone: () - 11/27 CBC w/ auto diff MCHC g/dL 30.0 35.0 35.0 FINAL Nicole Ya Mathewdamaris muñoz [facility] - [place], [address] [facility] [address] [place] [id number] 0 Phone: () - 11/27 CBC w/ auto diff MPV fL 9.5 13.4 9.1 Low FINAL Nicole Ya Mathewdamaris muñoz [facility] - [place], [address] [facility] [address] [place] [id number] 0 Phone: () - 11/27 CBC w/ auto diff RDW % 11.4 16.1 11.60 FINAL Nicole Ya Mathewdamaris muñoz [facility] - [place], [address] [facility] [address] [place] [id number] 0 Phone: () - 12/07 CBC w/ auto diff WBC K/uL 3.0 8.9 17.1 High FINAL Tiara Coronado Mathewdamaris muñoz [facility] - [place], [address] [place] [id number] 0 Phone: () - 12/07 CBC w/ auto diff HGB g/dL 11.3 15.2 10.9 Low FINAL Tiara Carmonaot a [facility] - [place], [address] [place] [id number] 0 Phone: () - 12/07 CBC w/ auto diff PLT K/uL 113.0 364.0 157 FINAL Tiara Carmonaot a [facility] - [place], [address] [place] [id number] 0 Phone: () - 12/07 CBC w/ auto diff Augustus # (ANC) K/uL 1.6 6.6 15.3 High FINAL Tiara Carmonaot a [facility] - [place], [address] [place] [id number] 0 Phone: () - 12/07 CBC w/ auto diff Augustus % % 43.0 74.0 89.4 High FINAL Tiara Carmonaot a [facility] - [place], [address] [place] [id number] 0 Phone: () - 12/07 CBC w/ auto diff IG % % 0.0 0.5 1.8 High FINAL Tiara Carmonaot a [facility] - [place], [address] [place] [id number] 0 Phone: () - 12/07 CBC w/ auto diff IG # K/uL 0.0 0.03 0.30 High FINAL Tiara Carmonaot a [facility] - [place], [address] [place] [id number] 0 Phone: () - 12/07 CBC w/ auto diff LY % % 14.0 41.0 5.2 Low FINAL Tiara Carmonaot a [facility] - [place], [address] [place] [id number] 0 Phone: () - 12/07 CBC w/ auto diff MO % % 6.0 15.0 3.5 Low FINAL Tiara Carmonaot a [facility] - [place], [address] [place] [id number] 0 Phone: () - 12/07 CBC w/ auto diff EO % % 0.0 7.0 0.0 FINAL Tiara Carmonaot a [facility] - [place], [address] [place] [id number] 0 Phone: () - 12/07 CBC w/ auto diff BA % % 0.0 2.0 0.1 FINAL Tiara Carmonaot a [facility] - [place], [address] [place] [id number] 0 Phone: () - 12/07 CBC w/ auto diff LY # K/uL 0.4 3.6 0.9 FINAL Tiara Carmonaot a [facility] - [place], [address] [place] [id number] 0 Phone: () - 12/07 CBC w/ auto diff MO # K/uL 0.2 1.3 0.6 FINAL Tiara Carmonaot a [facility] - [place], [address] [place] [id number] 0 Phone: () - 12/07 CBC w/ auto diff EO # K/uL 0.0 0.6 0.0 FINAL Tiara Carmonaot a [facility] - [place], [address] [place] [id number] 0 Phone: () - 12/07 CBC w/ auto diff BA # K/uL 0.0 0.2 0.0 FINAL Tiara Carmonaot a [facility] - [place], [address] [place] [id number] 0 Phone: () - 12/07 CBC w/ auto diff NRBC % #/100W BC 0.0 0.2 0.0 FINAL Tiara Carmonaot a [facility] - [place], [address] [place] [id number] 0 Phone: () - 12/07 CBC w/ auto diff RBC M/uL 3.9 5.1 3.37 Low FINAL Tiara Carmonaot a [facility] - [place], [address] [facility] [place] [id number] 0 Phone: () - 12/07 CBC w/ auto diff HCT % 35.0 48.0 32.8 Low FINAL Tiara Carmonaot a [facility] - [place], [address] [place] [id number] 0 Phone: () - 12/07 CBC w/ auto diff MCV fL 80.0 104.0 97.3 FINAL Tiara Carmonaot a [facility] - [place], [address] [facility] [address] [place] [id number] 0 Phone: () - 12/07 CBC w/ auto diff MCH pg 26.0 35.0 32.3 FINAL Tiara Carmonaot a [facility] - [place], [address] [address] [place] [id number] 0 Phone: () - 12/07 CBC w/ auto diff MCHC g/dL 30.0 35.0 33.2 FINAL Tiara Carmonaot a [facility] - [place], [address] [facility] [address] [place] [id number] 0 Phone: () - 12/07 CBC w/ auto diff MPV fL 9.5 13.4 8.9 Low FINAL Tiara Carmonaot a [facility] - [place], [address] [facility] [address] [place] [id number] 0 Phone: () - 12/07 CBC w/ auto diff RDW % 11.4 16.1 12.70 FINAL Tiara Carmonaot a [facility] - [place], [address] [address] [address] [place] [id number] 0 Phone: () - 12/07 CMP Album in g/dL 3.2 5.2 3.9 FINAL Tiara Carmonaot a [facility] - [place], [address] [place] [id number] 0 Phone: () - 12/07 CMP Alkal ine phosp hatas e U/L 46.0 116.0 97 FINAL [facility] [address] [facility] [id number] 0 Phone: () - 12/07 CMP ALT/S GPT U/L 7.0 40.0 27 FINAL [facility] [address] [facility] 100 [facility] [id number] 0 Phone: () - 12/07 CMP AST/S GOT U/L 13.0 40.0 17 FINAL [place] [address] [facility] 100 [facility] [id number] 0 Phone: () - 12/07 CMP BUN mg/dL 9.0 23.0 12.0 FINAL [place] [address] [facility] 100 [facility] [id number] 0 Phone: () - 12/07 CMP Calci um mg/dL 8.7 10.4 9.8 FINAL [place] [address] [facility] [address] [facility] [id number] 0 Phone: () - 12/07 CMP Chlor rakan mmol/L 96.0 114.0 110 FINAL [place] [address] [address] [facility] [address] [id number] 0 Phone: () - 12/07 CMP CO2 [...] of the 96 hour stability window. FINAL [place] [address] [facility] [address] [facility] [id number] 0 Phone: () - 12/07 CMP Creat inine mg/dL 0.5 1.2 0.89 FINAL [place] [address] [facility] [facility] [id number] 0 Phone: () - 12/07 CMP GFR estim ate ml/min /1.73m ^2 70.2 GFR is calculate d using the CKD-EPI equation. FINAL Tiara muñoz [facility], [address] [facility] [id number] 0 Phone: () - 12/07 CMP Gluco se mg/dL 73.0 126.0 152 High [facility]AL [facility] [address] [facility] [id number] 0 Phone: () - 12/07 CMP Potas sium mmol/L 3.5 5.1 4.3 FINAL [facility], [address] [facility] [id number] 0 Phone: () - 12/07 CMP Sodiu m mmol/L 136.0 145.0 145 FINAL [facility], [address] [facility] [address] [facility] [id number] 0 Phone: () - 12/07 CMP Bilir ubin, total mg/dL 0.3 1.2 0.6 FINAL Tiaratoni Coronado [facility], [address] [facility] [id number] 0 Phone: () - 12/07 CMP Total prote in g/dL 5.7 8.2 5.9 FINAL Tiara Terrazas [facility], [address] [facility] [id number] 0 Phone: () - 12/07 iSTAT creat inine panel Creat inine , iSTAT mg/dl 0.6 1.3 0.8 FINAL Tiaratoni Carmona toni [facility] [place], [address] [place] [id number] 0 Phone: () - 12/07 iSTAT creat inine panel GFR estim ate ml/min /1.73m ^2 79.8 GFR is calculate d using the CKD-EPI equation. FINAL Tiara muñoz [facility] [place], [address] [facility] [place] [phone] 0 Phone: () - 12/12 CBC w/ auto diff WBC K/uL 3.0 8.9 2.0 Low FINAL Nicole Terrazas a [facility] [place], [address] [place] [id number] 0 Phone: () - 12/12 CBC w/ auto diff HGB g/dL 11.3 15.2 11.2 Low FINAL Nicole Terrazas a [facility] [place], [address] [place] [id number] 0 Phone: () - 12/12 CBC w/ auto diff PLT K/uL 113.0 364.0 27 Critica l hematol ogy result obtaine d Criti todd Low FINAL Nicole muñoz [facility] [place], [address] [place] [id number] 0 Phone: () - 12/12 CBC w/ auto diff Plate let, immat ure, fract ion % 0.9 11.2 7.0 FINAL Nicole muñoz [facility] [place], [address] [place] [id number] 0 Phone: () - 12/12 CBC w/ auto diff Augustus # (ANC) K/uL 1.6 6.6 1.1 Low FINAL Nicole muñoz [facility] [place], [address] [place] [id number] 0 Phone: () - 12/12 CBC w/ auto diff Augustus % % 43.0 74.0 56.0 FINAL Nicole muñoz [facility] [place], [address] [place] [id number] 0 Phone: () - 12/12 CBC w/ auto diff IG % % 0.0 0.5 3.0 High FINAL Nicole Terrazas a [facility] [place], [address] [place] [id number] 0 Phone: () - 12/12 CBC w/ auto diff IG # K/uL 0.0 0.03 0.06 High FINAL Nicole Carmonaot a [facility] - [place], [address] [place] [id number] 0 Phone: () - 12/12 CBC w/ auto diff LY % % 14.0 41.0 35.5 FINAL Nicole Carmonaot a [facility] [place], [address] [place] [id number] 0 Phone: () - 12/12 CBC w/ auto diff MO % % 6.0 15.0 2.0 Low FINAL Nicole Carmonaot a [facility] [place], [address] [place] [id number] 0 Phone: () - 12/12 CBC w/ auto diff EO % % 0.0 7.0 1.0 FINAL Nicole Carmonaot a [facility] [place], [address] [place] [id number] 0 Phone: () - 12/12 CBC w/ auto diff BA % % 0.0 2.0 2.5 High FINAL Nicole Carmonaot a [facility] [place], [address] [place] [id number] 0 Phone: () - 12/12 CBC w/ auto diff LY # K/uL 0.4 3.6 0.7 FINAL Nicole Carmonaot a [facility] [place], [address] [place] [id number] 0 Phone: () - 12/12 CBC w/ auto diff MO # K/uL 0.2 1.3 0.0 Low FINAL Nicole Carmonaot a [facility] [place], [address] [place] [id number] 0 Phone: () - 12/12 CBC w/ auto diff EO # K/uL 0.0 0.6 0.0 FINAL Nicole Carmonaot a [facility] [place], [address] [place] [id number] 0 Phone: () - 12/12 CBC w/ auto diff BA # K/uL 0.0 0.2 0.1 FINAL Nicole Carmonaot a [facility] [place], [address] [place] [id number] 0 Phone: () - 12/12 CBC w/ auto diff NRBC % #/100W BC 0.0 0.2 1.0 High FINAL Nicole Terrazas a [facility] [place], [address] [place] [id number] 0 Phone: () - 12/12 CBC w/ auto diff RBC M/uL 3.9 5.1 3.51 Low FINAL Nicole muñoz [facility] [place], [address] [place] [id number] 0 Phone: () - 12/12 CBC w/ auto diff HCT % 35.0 48.0 33.7 Low FINAL Nicole muñoz [facility] [place], [address] [place] [id number] 0 Phone: () - 12/12 CBC w/ auto diff MCV fL 80.0 104.0 96.0 FINAL Nicole muñoz [facility] [place], [address] [place] [id number] 0 Phone: () - 12/12 CBC w/ auto diff MCH pg 26.0 35.0 31.9 FINAL Nicole muñoz [facility] [place], [address] [place] [id number] 0 Phone: () - 12/12 CBC w/ auto diff MCHC g/dL 30.0 35.0 33.2 FINAL Nicole muñoz [facility] [place], [address] [place] [id number] 0 Phone: () - 12/12 CBC w/ auto diff MPV fL 9.5 13.4 11.1 FINAL Nicole Ya Mathewot toni [facility] - [place], [address] [place] [id number] 0 Phone: () - 12/12 CBC w/ auto diff RDW % 11.4 16.1 13.00 FINAL Nicole muñoz [facility] [place], [address] [place] [id number] 0 Phone: () - 12/12 iSTAT Na+/K +/Cl- panel Sodiu m, iSTAT mmol/L 138.0 146.0 137 Low Reference range adjusted 0 with implement ation of I-Stat 8+ cartridge . FINAL Nicole muñoz [facility] [place], [address] [place] [id number] 0 Phone: () - 12/12 iSTAT Na+/K +/Cl- panel Potas sium, iSTAT mmol/L 3.5 4.9 3.9 Reference range adjusted 0 with implement ation of I-Stat 8+ cartridge . FINAL Nicole muñoz [facility] [place], [address] [facility] [address] [place] [id number] 0 Phone: () - 12/12 iSTAT Na+/K +/Cl- panel Chlor rakan, iSTAT mmol/L 98.0 109.0 99 Reference range adjusted 0 with implement ation of I-Stat 8+ cartridge . FINAL Nicole muñoz [facility] [place], [address] [facility] [address] [facility] [address] [place] [id number] 0 Phone: () - 12/27 CMP Album in g/dL 3.2 5.2 3.7 FINAL Nicole muñoz Oncology [facility], [address] [place] [id number] 0 Phone: () - 12/27 CMP Alkal ine phosp hatas e U/L 46.0 116.0 94 FINAL Nicole muñoz Oncology [facility], [address] [place] [id number] 0 Phone: () - 12/27 CMP ALT/S GPT U/L 7.0 40.0 33 FINAL Nicole muñoz [place] [address] [id number] 0 Phone: () - 12/27 CMP AST/S GOT U/L 13.0 40.0 21 FINAL Nicole muñoz [place] [address] [id number] 0 Phone: () - 12/27 CMP BUN mg/dL 9.0 23.0 8.0 Low FINAL Nicole muñoz [place] [address] [id number] 0 Phone: () - 12/27 CMP Calci um mg/dL 8.7 10.4 8.5 Low FINAL Nicole muñoz [place] [address] [id number] 0 Phone: () - 12/27 CMP Chlor rakan mmol/L 96.0 114.0 114 FINAL [place] [address] [id number] 0 Phone: () - 12/27 CMP CO2 [...] 96 hour stability window. FINAL Nicole muñoz [place] [address] [id number] 0 Phone: () - 12/27 CMP Creat inine mg/dL 0.5 1.2 0.89 FINAL [place] [address] [id number] 0 Phone: () - 12/27 CMP GFR estim ate ml/min /1.73m ^2 70.1 GFR is calculate d using the CKD-EPI equation. FINAL Nicole muñoz [place] [address] [id number] 0 Phone: () - 12/27 CMP Gluco se mg/dL 73.0 126.0 92 FINAL Nicole muñoz [facility], [address] [facility] [id number] 0 Phone: () - 12/27 CMP Potas sium mmol/L 3.5 5.1 4.3 FINAL Nicole muñoz [facility], [address] [facility] [id number] 0 Phone: () - 12/27 CMP Sodiu m mmol/L 136.0 145.0 145 FINAL Nicole muñoz [facility], [address] [facility] [id number] 0 Phone: () - 12/27 CMP Bilir ubin, total mg/dL 0.3 1.2 0.5 FINAL Nicole muñoz [facility], [address] [facility] [id number] 0 Phone: () - 12/27 CMP Total prote in g/dL 5.7 8.2 5.5 Low FINAL Nicole muñoz [facility], [address] [facility] [id number] 0 Phone: () - 12/27 CBC w/ auto diff WBC K/uL 3.0 8.9 6.3 FINAL Nicole muñoz [facility] [place] , [address] [place] [address] [address] [facility] [place] [id number] 0 Phone: () - 12/27 CBC w/ auto diff HGB g/dL 11.3 15.2 10.2 Low FINAL Nicole muñoz [facility] [place] , [address] [place] [address] d [address] [facility] [place] [id number] 0 Phone: () - 12/27 CBC w/ auto diff PLT K/uL 113.0 364.0 108 Low FINAL Nicole mñuoz [facility] - [place] , [address] [place] [address] [address] [facility] [place] [id number] 0 Phone: () - 12/27 CBC w/ auto diff Augustus # (ANC) K/uL 1.6 6.6 3.8 FINAL Nicole Ya [place] [facility] [place], [address] [place] [id number] 0 Phone: () - 12/27 CBC w/ auto diff Augustus % % 43.0 74.0 60.1 FINAL Nicole Carmonaot a [facility] [place], [address] [place] [id number] 0 Phone: () - 12/27 CBC w/ auto diff IG % % 0.0 0.5 0.6 High FINAL Nicole Terrazas a [facility] [place], [address] [place] [id number] 0 Phone: () - 12/27 CBC w/ auto diff IG # K/uL 0.0 0.03 0.04 High FINAL Nicole Terrazas a [facility] [place], [address] [place] [id number] 0 Phone: () - 12/27 CBC w/ auto diff LY % % 14.0 41.0 25.1 FINAL Nicole Terrazas a [facility] [place], [address] [place] [id number] 0 Phone: () - 12/27 CBC w/ auto diff MO % % 6.0 15.0 13.7 FINAL Nicole muñoz [facility] [place], [address] [place] [id number] 0 Phone: () - 12/27 CBC w/ auto diff EO % % 0.0 7.0 0.2 FINAL Nicole Terrazas a [facility] [place], [address] [place] [id number] 0 Phone: () - 12/27 CBC w/ auto diff BA % % 0.0 2.0 0.3 FINAL Nicole Carmonaot a [facility] [place], [address] [place] [id number] 0 Phone: () - 12/27 CBC w/ auto diff LY # K/uL 0.4 3.6 1.6 FINAL Nicole Carmonaot a [facility] [place], [address] [place] [id number] 0 Phone: () - 12/27 CBC w/ auto diff MO # K/uL 0.2 1.3 0.9 FINAL Nicole Carmonaot a [facility] [place], [address] [place] [id number] 0 Phone: () - 12/27 CBC w/ auto diff EO # K/uL 0.0 0.6 0.0 FINAL Nicole Terrazas a [facility] [place], [address] [place] [id number] 0 Phone: () - 12/27 CBC w/ auto diff BA # K/uL 0.0 0.2 0.0 FINAL Nicole Terrazas a [facility] [place], [address] [place] [id number] 0 Phone: () - 12/27 CBC w/ auto diff NRBC % #/100W BC 0.0 0.2 0.0 FINAL Nicole Terrazas a [facility] [place], [address] [place] [id number] 0 Phone: () - 12/27 CBC w/ auto diff RBC M/uL 3.9 5.1 3.18 Low FINAL Nicole Terrazas a [facility] [place], [address] [place] [id number] 0 Phone: () - 12/27 CBC w/ auto diff HCT % 35.0 48.0 32.2 Low FINAL Nicole Terrazas a [facility] [place], [address] [place] [id number] 0 Phone: () - 12/27 CBC w/ auto diff MCV fL 80.0 104.0 101.3 FINAL Nicole Carmonaot a [facility] [place], [address] [place] [id number] 0 Phone: () - 12/27 CBC w/ auto diff MCH pg 26.0 35.0 32.1 FINAL Nicole muñoz [facility] [place], [address] [place] [id number] 0 Phone: () - 12/27 CBC w/ auto diff MCHC g/dL 30.0 35.0 31.7 FINAL Nicole muñoz [facility] [place], [address] [place] [id number] 0 Phone: () - 12/27 CBC w/ auto diff MPV fL 9.5 13.4 8.8 Low FINAL Nicole muñoz [facility] [place], [address] [place] [id number] 0 Phone: () - 12/27 CBC w/ auto diff RDW % 11.4 16.1 15.80 FINAL Nicole muñoz [facility] [place], [address] [place] [id number] 0 Phone: () - 12/27 iSTAT creat inine panel Creat inine , iSTAT mg/dl 0.6 1.3 1.0 FINAL Nicole muñoz [facility] [place], [address] [place] [id number] 0 Phone: () - 12/27 iSTAT creat inine panel GFR estim ate ml/min /1.73m ^2 61.0 GFR is calculate d using the CKD-EPI equation. FINAL Nicole muñoz [facility] [place], [address] [place] [id number] 0 Phone: () - 01/18 CMP Album in g/dL 3.2 5.2 3.7 FINAL Nicole muñoz [facility] - [place], [address] [place] [id number] 0 Phone: () - 01/18 CMP Alkal ine phosp hatas e U/L 46.0 116.0 94 FINAL Nicole muñoz [facility] - [place], [address] [facility] [id number] 0 Phone: () - 01/18 CMP ALT/S GPT U/L 7.0 40.0 33 FINAL Nicole muñoz [facility], [address] [facility] [address] [facility] [id number] 0 Phone: () - 01/18 CMP AST/S GOT U/L 13.0 40.0 18 FINAL Nicole muñoz [facility], [address] [facility] 100 [facility] [id number] 0 Phone: () - 01/18 CMP BUN mg/dL 9.0 23.0 10.0 FINAL Nicole muñoz [facility], [address] [facility] [address] [facility] [id number] 0 Phone: () - 01/18 CMP Calci um mg/dL 8.7 10.4 9.0 FINAL Nicole muñoz [facility], [facility] [address] [id number] 0 Phone: () - 01/18 CMP Chlor rakan mmol/L 96.0 114.0 108 FINAL Nicole muñoz [facility], [address] [id number] 0 Phone: () - 01/18 CMP CO2 [...] 96 hour stability window. FINAL Nicole muñoz [facility], [facility] [address] [id number] 0 Phone: () - 01/18 CMP Creat inine mg/dL 0.5 1.2 0.80 FINAL Nicole muñoz [facility], [address] [facility] 100 [facility] [id number] 0 Phone: () - 01/18 CMP GFR estim ate ml/min /1.73m ^2 79.7 GFR is calculate d using the CKD-EPI equation. FINAL Nicole muñoz [facility], [address] [facility] [id number] 0 Phone: () - 01/18 CMP Gluco se mg/dL 73.0 126.0 156 High FINAL Nicole muñoz [facility], [address] [facility] [id number] 0 Phone: () - 01/18 CMP Potas sium mmol/L 3.5 5.1 4.7 FINAL Nicole muñoz [facility], [address] [facility] 100 [facility] [id number] 0 Phone: () - 01/18 CMP Sodiu m mmol/L 136.0 145.0 145 FINAL Nicole muñoz [facility] [address] [facility] [address] [facility] [id number] 0 Phone: () - 01/18 CMP Bilir ubin, total mg/dL 0.3 1.2 0.5 FINAL Nicole muñoz [facility] [address] [facility] [address] [place] [address] [id number] 0 Phone: () - 01/18 CMP Total prote in g/dL 5.7 8.2 5.6 Low FINAL Nicole muñoz [facility] [address] [id number] 0 Phone: () - 01/18 iSTAT creat inine panel Creat inine , iSTAT mg/dl 0.6 1.3 0.8 FINAL Nicole muñoz [facility] - [place] , [address] [facility] [address] [facility] [id number] 0 Phone: () - 01/18 iSTAT creat inine panel GFR estim ate ml/min /1.73m ^2 79.7 GFR is calculate d using the CKD-EPI equation. FINAL Nicole muñoz [facility] [place] , [address] [facility] [address] [facility] [place] [id number] 0 Phone: () - 01/18 CBC w/ auto diff WBC K/uL 3.0 8.9 12.6 High FINAL Nicole Ya [place] [facility] [place], [address] [place] [id number] 0 Phone: () - 01/18 CBC w/ auto diff HGB g/dL 11.3 15.2 9.7 Low FINAL Nicole Carmonaot a [facility] [place], [address] [place] [id number] 0 Phone: () - 01/18 CBC w/ auto diff PLT K/uL 113.0 364.0 124 FINAL Nicole Carmonaot a [facility] [place], [address] [place] [id number] 0 Phone: () - 01/18 CBC w/ auto diff Augustus # (ANC) K/uL 1.6 6.6 10.7 High FINAL Nicole Carmonaot a [facility] [place], [address] [place] [id number] 0 Phone: () - 01/18 CBC w/ auto diff Augustus % % 43.0 74.0 84.3 High FINAL Nicole Terrazas a [facility] - [place], [address] [place] [id number] 0 Phone: () - 01/18 CBC w/ auto diff IG % % 0.0 0.5 4.4 High FINAL Nicole Terrazas a [facility] [place], [address] [place] [id number] 0 Phone: () - 01/18 CBC w/ auto diff IG # K/uL 0.0 0.03 0.56 High FINAL Nicole Carmonaot a [facility] - [place], [address] [place] [id number] 0 Phone: () - 01/18 CBC w/ auto diff LY % % 14.0 41.0 8.5 Low FINAL Nicole Carmonaot a [facility] - [place], [address] [place] [id number] 0 Phone: () - 01/18 CBC w/ auto diff MO % % 6.0 15.0 2.6 Low FINAL Nicole Carmonaot a [facility] - [place], [address] [place] [id number] 0 Phone: () - 01/18 CBC w/ auto diff EO % % 0.0 7.0 0.0 FINAL Nicole Terrazas a [facility] - [place], [address] [place] [id number] 0 Phone: () - 01/18 CBC w/ auto diff BA % % 0.0 2.0 0.2 FINAL Nicole Carmonaot a [facility] - [place], [address] [place] [id number] 0 Phone: () - 01/18 CBC w/ auto diff LY # K/uL 0.4 3.6 1.1 FINAL Nicole Carmonaot a [facility] - [place], [address] [place] [id number] 0 Phone: () - 01/18 CBC w/ auto diff MO # K/uL 0.2 1.3 0.3 FINAL Nicole Terrazas a [facility] - [place], [address] [place] [id number] 0 Phone: () - 01/18 CBC w/ auto diff EO # K/uL 0.0 0.6 0.0 FINAL Nicole Carmonaot a [facility] - [place], [address] [place] [id number] 0 Phone: () - 01/18 CBC w/ auto diff BA # K/uL 0.0 0.2 0.0 FINAL Nicole Terrazas a [facility] - [place], [address] [place] [id number] 0 Phone: () - 01/18 CBC w/ auto diff NRBC % #/100W BC 0.0 0.2 0.5 High FINAL Nicole Carmonaot a [facility] - [place], [address] [place] [id number] 0 Phone: () - 01/18 CBC w/ auto diff RBC M/uL 3.9 5.1 2.85 Low FINAL Nicole Felton Mathewot a [facility] - [place], [address] [place] [id number] 0 Phone: () - 01/18 CBC w/ auto diff HCT % 35.0 48.0 29.8 Low FINAL Nicole Ya Mathewot a [facility] - [place], [address] [place] [id number] 0 Phone: () - 01/18 CBC w/ auto diff MCV fL 80.0 104.0 104.6 High FINAL Nicole Ya Mathewot a [facility] - [place], [address] [place] [id number] 0 Phone: () - 01/18 CBC w/ auto diff MCH pg 26.0 35.0 34.0 FINAL Nicole Ya Mathewdamaris toni [facility] - [place], [address] [place] [id number] 0 Phone: () - 01/18 CBC w/ auto diff MCHC g/dL 30.0 35.0 32.6 FINAL Nicole Ya Nini muñoz [facility] - [place], [address] [place] [id number] 0 Phone: () - 01/18 CBC w/ auto diff MPV fL 9.5 13.4 9.0 Low FINAL Nicole Ya Mathewot toni [facility] - [place], [address] [place] [id number] 0 Phone: () - 01/18 CBC w/ auto diff RDW % 11.4 16.1 19.00 High FINAL Nicole Ya [place] a [facility] - [place], [address] [place] [id number] 0 Phone: () - 01/29 CBC w/ auto diff WBC K/uL 3.0 8.9 19.0 High FINAL Nicole Ya [place] a [facility] - [place], [address] [place] [id number] 0 Phone: () - 01/29 CBC w/ auto diff HGB g/dL 11.3 15.2 8.8 Low FINAL Nicole Felton [place] a [facility] - [place], [address] [place] [id number] 0 Phone: () - 01/29 CBC w/ auto diff PLT K/uL 113.0 364.0 59 Low FINAL Nicoledarius Ya [place] a [facility] - [place], [address] [place] [id number] 0 Phone: () - 01/29 CBC w/ auto diff Augustus # (ANC) K/uL 1.6 6.6 16.7 High FINAL Nicole Ya Mathewdamaris a [facility] - [place], [address] [place] [id number] 0 Phone: () - 01/29 CBC w/ auto diff Augustus % % 43.0 74.0 88.0 High FINAL Nicole Ya Mathewdamaris a [facility] - [place], [address] [place] [id number] 0 Phone: () - 01/29 CBC w/ auto diff IG % % 0.0 0.5 1.9 High FINAL Nicole Ya Mathewdamaris a [facility] - [place], [address] [place] [id number] 0 Phone: () - 01/29 CBC w/ auto diff IG # K/uL 0.0 0.03 0.36 High FINAL Nicole Ya [place] a [facility] - [place], [address] [place] [id number] 0 Phone: () - 01/29 CBC w/ auto diff LY % % 14.0 41.0 5.1 Low FINAL Nicole Ya [place] a [facility] - [place], [address] [place] [id number] 0 Phone: () - 01/29 CBC w/ auto diff MO % % 6.0 15.0 4.8 Low FINAL Nicole Carmonaot a [facility] - [place], [address] [place] [id number] 0 Phone: () - 01/29 CBC w/ auto diff EO % % 0.0 7.0 0.0 FINAL Nicole Carmonaot a [facility] - [place], [address] [place] [id number] 0 Phone: () - 01/29 CBC w/ auto diff BA % % 0.0 2.0 0.2 FINAL Nicole Terrazas a [facility] - [place], [address] [place] [id number] 0 Phone: () - 01/29 CBC w/ auto diff LY # K/uL 0.4 3.6 1.0 FINAL Nicole Terrazas a [facility] - [place], [address] [place] [id number] 0 Phone: () - 01/29 CBC w/ auto diff MO # K/uL 0.2 1.3 0.9 FINAL Nicole muñoz [facility] - [place], [address] [place] [id number] 0 Phone: () - 01/29 CBC w/ auto diff EO # K/uL 0.0 0.6 0.0 FINAL Nicole Terrazas a [facility] - [place], [address] [place] [id number] 0 Phone: () - 01/29 CBC w/ auto diff BA # K/uL 0.0 0.2 0.0 FINAL Nicole Terrazas a [facility] - [place], [address] [place] [id number] 0 Phone: () - 01/29 CBC w/ auto diff NRBC % #/100W BC 0.0 0.2 0.0 FINAL Nicole Ya Mathewot a [facility]cology - [place], [address] [place] [id number] 0 Phone: () - 01/29 CBC w/ auto diff RBC M/uL 3.9 5.1 2.58 Low FINAL Nicole Carmonaot a [facility] - [place], [address] [place] [id number] 0 Phone: () - 01/29 CBC w/ auto diff HCT % 35.0 48.0 27.0 Low FINAL Nicole Terrazas a [facility] - [place], [address] [place] [id number] 0 Phone: () - 01/29 CBC w/ auto diff MCV fL 80.0 104.0 104.7 High FINAL Nicole Terrazas a [facility] - [place], [address] [place] [id number] 0 Phone: () - 01/29 CBC w/ auto diff MCH pg 26.0 35.0 34.1 FINAL Nicole Ya Nini muñoz Oncology - [place], [address] [place] [id number] 0 Phone: () - 01/29 CBC w/ auto diff MCHC g/dL 30.0 35.0 32.6 FINAL Nicole Terrazas a [facility] - [place], [address] [place] [id number] 0 Phone: () - 01/29 CBC w/ auto diff MPV fL 9.5 13.4 9.3 Low FINAL Nicole muñoz On[facility] - [place], [address] [place] [id number] 0 Phone: () - 01/29 CBC w/ auto diff RDW % 11.4 16.1 17.80 High FINAL Nicole Terrazas a [facility] - [place], [address] [place] [id number] 0 Phone: () - 01/29 iSTAT Na+/K +/Cl- panel Sodiu m, iSTAT mmol/L 138.0 146.0 134 Low Reference range adjusted 0 with implement ation of I-Stat 8+ cartridge . FINAL Nicole Felton Terrazas a [facility] - [place], [address] [place] [id number] 0 Phone: () - 01/29 iSTAT Na+/K +/Cl- panel Potas sium, iSTAT mmol/L 3.5 4.9 3.4 Low Reference range adjusted 0 with implement ation of I-Stat 8+ cartridge . FINAL Nicole muñoz On[facility] - [place], [address] [place] [id number] 0 Phone: () - 01/29 iSTAT Na+/K +/Cl- panel Chlor rakan, iSTAT mmol/L 98.0 109.0 97 Low Reference range adjusted 0 with implement ation of I-Stat 8+ cartridge . FINAL Nicole muñoz [facility] - [place], [address] [place] [id number] 0 Phone: () - 02/05 CBC w/ auto diff BA # K/uL 0.0 0.2 0.0 FINAL Nicole muñoz On[facility] - [place], [address] [place] [id number] 0 Phone: () - 02/05 CBC w/ auto diff NRBC % #/100W BC 0.0 0.2 0.1 FINAL Nicole muñoz [facility] - [place], [address] [place] [id number] 0 Phone: () - 02/05 CBC w/ auto diff RBC M/uL 3.9 5.1 2.96 Low FINAL Nicole muñoz On[facility] - [place], [address] [place] [id number] 0 Phone: () - 02/05 CBC w/ auto diff HCT % 35.0 48.0 30.3 Low FINAL Nicole muñoz On[facility] - [place], [address] [place] [id number] 0 Phone: () - 02/05 CBC w/ auto diff MCV fL 80.0 104.0 102.4 FINAL Nicole Carmonaot a [facility] - [place], [address] [place] [id number] 0 Phone: () - 02/05 CBC w/ auto diff MCH pg 26.0 35.0 33.8 FINAL Nicole Carmonaot a [facility] - [place], [address] [place] [id number] 0 Phone: () - 02/05 CBC w/ auto diff MCHC g/dL 30.0 35.0 33.0 FINAL Nicole Carmonaot a [facility] - [place], [address] [place] [id number] 0 Phone: () - 02/05 CBC w/ auto diff MPV fL 9.5 13.4 8.5 Low FINAL Nicole Carmonaot [facility] - [place], [address] [place] [id number] 0 Phone: () - 02/05 CBC w/ auto diff RDW % 11.4 16.1 16.10 FINAL Nicole Terrazas a [facility] - [place], [address] [place] [id number] 0 Phone: () - 02/05 CBC w/ auto diff WBC K/uL 3.0 8.9 16.6 High FINAL Nicole Carmonaot [facility] - [place], [address] [place] [id number] 0 Phone: () - 02/05 CBC w/ auto diff HGB g/dL 11.3 15.2 10.0 Low FINAL Nicole Carmonaot [facility] - [place], [address] [place] [id number] 0 Phone: () - 02/05 CBC w/ auto diff PLT K/uL 113.0 364.0 122 FINAL Nicole Carmonaot [facility] - [place], [address] [place] [id number] 0 Phone: () - 02/05 CBC w/ auto diff Augustus # (ANC) K/uL 1.6 6.6 12.9 High FINAL Nicole Carmonaot [facility] - [place], [address] [place] [id number] 0 Phone: () - 02/05 CBC w/ auto diff Augustus % % 43.0 74.0 77.5 High FINAL Nicole Carmonaot a [facility] - [place], [address] [place] [id number] 0 Phone: () - 02/05 CBC w/ auto diff IG % % 0.0 0.5 1.1 High FINAL Nicole Carmonaot [facility] - [place], [address] [place] [id number] 0 Phone: () - 02/05 CBC w/ auto diff IG # K/uL 0.0 0.03 0.19 High FINAL Nicole Carmonaot [facility] - [place], [address] [place] [id number] 0 Phone: () - 02/05 CBC w/ auto diff LY % % 14.0 41.0 11.4 Low FINAL Nicole Terrazas [facility] - [place], [address] [place] [id number] 0 Phone: () - 02/05 CBC w/ auto diff MO % % 6.0 15.0 9.9 FINAL Nicloe Carmonaot a On[facility] - [place], [address] [place] [id number] 0 Phone: () - 02/05 CBC w/ auto diff EO % % 0.0 7.0 0.0 FINAL Nicole Carmonaot [facility] - [place], [address] [place] [id number] 0 Phone: () - 02/05 CBC w/ auto diff BA % % 0.0 2.0 0.1 FINAL Nicole Carmonaot [facility] - [place], [address] [place] [id number] 0 Phone: () - 02/05 CBC w/ auto diff LY # K/uL 0.4 3.6 1.9 FINAL Nicole muñoz On[facility] - [place], [address] [place] [id number] 0 Phone: () - 02/05 CBC w/ auto diff MO # K/uL 0.2 1.3 1.6 High FINAL Nicole muñoz [facility] - [place], [address] [place] [id number] 0 Phone: () - 02/05 CBC w/ auto diff EO # K/uL 0.0 0.6 0.0 FINAL Nicole muñoz [facility] - [place], [address] [place] [id number] 0 Phone: () - 02/05 iSTAT Na+/K +/Cl- panel Sodiu m, iSTAT mmol/L 138.0 146.0 134 Low Reference range adjusted 0 with implement ation of I-Stat 8+ cartridge . FINAL Nicole muñoz On[facility] - [place], [address] [place] [id number] 0 Phone: () - 02/05 iSTAT Na+/K +/Cl- panel Potas sium, iSTAT mmol/L 3.5 4.9 3.1 Low Reference range adjusted 0 with implement ation of I-Stat 8+ cartridge . FINAL Nicole muñoz [facility] - [place], [address] [place] [phone] 0 Phone: () - 02/05 iSTAT Na+/K +/Cl- panel Chlor rakan, iSTAT mmol/L 98.0 109.0 95 Low Reference range adjusted 0 with implement ation of I-Stat 8+ cartridge . FINAL Nicole muñoz [facility] - [place], [address] [place] [id number] 0 Phone: () - 02/05 iSTAT creat inine panel Creat inine , iSTAT mg/dl 0.6 1.3 0.8 FINAL Tiara muñoz On[facility] - [place], [address] [facility] [address] [facility] [place] [id number] 0 Phone: () - 02/05 iSTAT creat inine panel GFR estim ate ml/min /1.73m ^2 79.7 GFR is calculate d using the CKD-EPI equation. FINAL Tiara muñoz On[facility] - [place], [address] [facility] [address] [facility] [place] [phone] 0 Phone: () - 02/05 Magne sium, mg/dL mg/dL 1.5 2.3 1.4 Low FINAL Tiara muñoz On[facility] - [place], [address] [place] [id number] 0 Phone: () - 02/07 Magne sium, mg/dL mg/dL 1.5 2.3 1.5 FINAL Tiara muñoz On[facility] - [place], [address] [place] [id number] 0 Phone: () - 02/07 iSTAT Na+/K +/Cl- panel Sodiu m, iSTAT mmol/L 138.0 146.0 137 Low Reference range adjusted 0 with implement ation of I-Stat 8+ cartridge . FINAL Tiara muñoz On[facility] - [place], [address] [facility] [address] [facility] [place] [id number] 0 Phone: () - 02/07 iSTAT Na+/K +/Cl- panel Potas sium, iSTAT mmol/L 3.5 4.9 3.2 Low Reference range adjusted 0 with implement ation of I-Stat 8+ cartridge . FINAL Tiara muñoz [facility] - [place], [address] [facility] [address] [facility] [place] [id number] 0 Phone: () - 02/07 iSTAT Na+/K +/Cl- panel Chlor rakan, iSTAT mmol/L 98.0 109.0 100 Reference range adjusted 0 with implement ation of I-Stat 8+ cartridge . FINAL Tiara Carmonaot a [facility] - [place], [address] [place] [id number] 0 Phone: () - 02/07 iSTAT creat inine panel Creat inine , iSTAT mg/dl 0.6 1.3 1.0 FINAL Tiara Carmonaot a On[facility] - [place], [address] [place] [id number] 0 Phone: () - 02/07 iSTAT creat inine panel GFR estim ate ml/min /1.73m ^2 61.0 GFR is calculate d using the CKD-EPI equation. FINAL Tiara Terrazas a On[facility] - [place], [address] [facility] [address] [place] [id number] 0 Phone: () - 02/08 Clost ridiu [...] been establish ed.This assay was performed by [employer] (R) PCR.The performan ce character istics of this assay havebeen determine d by Mark Oneti cs. Performan cecharact eristics refer to the analytica l performan ceof the test.For additiona l informati on, please refer tohttp:// education .Melodigram/faq/F AQ136(Thi s link is being provided forinform ational/e ducationa l purposes only.)[CA ] FINAL Tiara NEGRETE, Mark Onet [facility] [address] [facility] [id number] 4 02/08 Clost ridiu m diffi cile toxin PCR panel CLOST RIDIU M DIFFI CILE TOXIN /GDH W/REF L TO PCR SEE NOTE CLOSTRIDI UM DIFFICILE TOXIN/GDH W/REFL TO PCRMicro Number: [id number] est Status: FinalSpec imen Source: StoolSpec imen Quality: AdequateG DH Antigen: DetectedT oxin A and B: Not DetectedC OMMENT: Indetermi vikram. Specimen forwarded [employer] [facility] cesar C. difficile PCR testing.F or additiona l informati on, please refer tohttp:// education .Melodigram/faq/F AQ136(Thi s link is being provided forinform ational/e ducationa l purposes only.)[CB ] FINAL Tiara Coronado QUEST, [facility] [address] [facility] [id number] 4 02/08 iSTAT creat inine panel Creat inine , iSTAT mg/dl 0.6 1.3 0.8 FINAL Nicole muñoz On[facility] - [place] , [address] [facility] [address] [place] [address] [phone] 0 Phone: () - 02/08 iSTAT creat inine panel GFR estim ate ml/min /1.73m ^2 79.7 GFR is calculate d using the CKD-EPI equation. FINAL Nicole muñoz On[facility] - [place], [address] [facility] [address] [facility] [id number] 0 Phone: () - 02/08 CMP Album in g/dL 3.2 5.2 3.2 FINAL Nicole muñoz Oncology [facility], [address] [place] [phone] 0 Phone: () - 02/08 CMP Alkal ine phosp hatas e U/L 46.0 116.0 85 FINAL Nicole muñoz Oncology [facility], [address] [place] [address] [phone] 0 Phone: () - 02/08 CMP ALT/S GPT U/L 7.0 40.0 24 FINAL Nicole muñoz [facility], [facility] [address] [facility] [address] [facility] [phone] 0 Phone: () - 02/08 CMP AST/S GOT U/L 13.0 40.0 16 FINAL Nicole Terrazas [place] [address] [facility] [address] [facility] [id number] 0 Phone: () - 02/08 CMP BUN mg/dL 9.0 23.0 8.0 Low FINAL Nicole [place] [address] [address] [facility] [address] [phone] 0 Phone: () - 02/08 CMP Calci um mg/dL 8.7 10.4 8.3 Low FINAL Nicole Terrazas [place] [address] [facility] [address] [address] [phone] 0 Phone: () - 02/08 CMP Chlor rakan mmol/L 96.0 114.0 111 FINAL Nicole Terrazas [place] [address] [facility] [address] [phone] 0 Phone: () - 02/08 CMP CO2 [...] 96 hour stability window. FINAL Nicole muñoz [place] [address] [place] [address] [id number] 0 Phone: () - 02/08 CMP Creat inine mg/dL 0.5 1.2 0.86 FINAL Nicole muñoz [place] [address] [address] [facility] [address] [address] [phone] 0 Phone: () - 02/08 CMP GFR estim ate ml/min /1.73m ^2 73.0 GFR is calculate d using the CKD-EPI equation. FINAL Nicole Terrazas [facility], [address] [facility] [id number] 0 Phone: () - 02/08 CMP Gluco se mg/dL 73.0 126.0 129 High FINAL Nicole muñoz [facility], [address] [facility] [id number] 0 Phone: () - 02/08 CMP Potas sium mmol/L 3.5 5.1 3.6 FINAL Nicole muñoz [facility], [address] [facility] [id number] 0 Phone: () - 02/08 CMP Sodiu m mmol/L 136.0 145.0 144 FINAL Nicole muñoz [facility], [address] [facility] [id number] 0 Phone: () - 02/08 CMP Bilir ubin, total mg/dL 0.3 1.2 0.3 FINAL Nicole muñoz [facility], [address] [id number] 0 Phone: () - 02/08 CMP Total prote in g/dL 5.7 8.2 4.8 Low FINAL Nicole muñoz [facility], [address] [phone] 0 Phone: () - 02/08 CBC w/ auto diff WBC K/uL 3.0 8.9 17.2 High FINAL Nicole muñoz On[facility] - [place], [address] [facility] [address] [place] [id number] 0 Phone: () - 02/08 CBC w/ auto diff HGB g/dL 11.3 15.2 7.9 Critica l hematol ogy result obtaine d Criti todd Low FINAL Nicole muñoz On[facility] - [place], [address] [place] [id number] 0 Phone: () - 02/08 CBC w/ auto diff PLT K/uL 113.0 364.0 123 FINAL Nicole muñoz On[facility] - [place], [address] [facility] [facility] [address] [place] [id number] 0 Phone: () - 02/08 CBC w/ auto diff Augustus # (ANC) K/uL 1.6 6.6 13.8 High FINAL Nicole Ya Mathewot a Oncology - [place], [address] [place] [id number] 0 Phone: () - 02/08 CBC w/ auto diff Augustus % % 43.0 74.0 80.0 High FINAL Nicole Felton Mathewot a [facility] - [place], [address] [place] [id number] 0 Phone: () - 02/08 CBC w/ auto diff IG % % 0.0 0.5 2.2 High FINAL Nicole Felton Mathewot a [facility] - [place], [address] [place] [id number] 0 Phone: () - 02/08 CBC w/ auto diff IG # K/uL 0.0 0.03 0.38 High FINAL Nicole Felton Mathewdamaris toni Oncology - [place], [address] [place] [id number] 0 Phone: () - 02/08 CBC w/ auto diff LY % % 14.0 41.0 9.3 Low FINAL Nicole Felton Mathewot a [facility] - [place], [address] [place] [id number] 0 Phone: () - 02/08 CBC w/ auto diff MO % % 6.0 15.0 8.4 FINAL Nicole Ya Mathewot a [facility] - [place], [address] [place] [id number] 0 Phone: () - 02/08 CBC w/ auto diff EO % % 0.0 7.0 0.0 FINAL Nicole Felton Mathewot a [facility] - [place], [address] [place] [id number] 0 Phone: () - 02/08 CBC w/ auto diff BA % % 0.0 2.0 0.1 FINAL Nicole Ya Mathewot a On[facility] - [place], [address] [place] [id number] 0 Phone: () - 02/08 CBC w/ auto diff LY # K/uL 0.4 3.6 1.6 FINAL Nicole Carmonaot a [facility] - [place], [address] [place] [id number] 0 Phone: () - 02/08 CBC w/ auto diff MO # K/uL 0.2 1.3 1.5 High FINAL Nicole Carmonaot a [facility] - [place], [address] [place] [id number] 0 Phone: () - 02/08 CBC w/ auto diff EO # K/uL 0.0 0.6 0.0 FINAL Nicole Carmonaot a [facility] - [place], [address] [place] [id number] 0 Phone: () - 02/08 CBC w/ auto diff BA # K/uL 0.0 0.2 0.0 FINAL Nicole Carmonaot a [facility] - [place], [address] [place] [id number] 0 Phone: () - 02/08 CBC w/ auto diff NRBC % #/100W BC 0.0 0.2 0.3 High FINAL Nicole Carmonaot a [facility] - [place], [address] [place] [id number] 0 Phone: () - 02/08 CBC w/ auto diff RBC M/uL 3.9 5.1 2.33 Low FINAL Nicole Carmonaot a [facility] - [place], [address] [place] [id number] 0 Phone: () - 02/08 CBC w/ auto diff HCT % 35.0 48.0 24.6 Low FINAL Nicole Carmonaot a [facility] - [place], [address] [place] [id number] 0 Phone: () - 02/08 CBC w/ auto diff MCV fL 80.0 104.0 105.6 High FINAL Nicole Carmonaot a [facility] - [place], [address] [place] [id number] 0 Phone: () - 02/08 CBC w/ auto diff MCH pg 26.0 35.0 33.9 FINAL Nicole Carmonaot a [facility] - [place], [address] [place] [id number] 0 Phone: () - 02/08 CBC w/ auto diff MCHC g/dL 30.0 35.0 32.1 FINAL Nicole Carmonaot a [facility] - [place], [address] [place] [id number] 0 Phone: () - 02/08 CBC w/ auto diff MPV fL 9.5 13.4 9.1 Low FINAL Nicole Carmonaot a [facility] - [place], [address] [place] [id number] 0 Phone: () - 02/08 CBC w/ auto diff RDW % 11.4 16.1 16.70 High FINAL Nicole Carmonaot a [facility] - [place], [address] [place] [id number] 0 Phone: () - 02/12 CBC w/ auto diff WBC K/uL 3.0 8.9 9.0 High FINAL Nicole Carmonaot a [facility] - [place], [address] [place] [id number] 0 Phone: () - 02/12 CBC w/ auto diff HGB g/dL 11.3 15.2 8.7 Low FINAL Nicole Carmonaot a [facility] - [place], [address] [place] [id number] 0 Phone: () - 02/12 CBC w/ auto diff PLT K/uL 113.0 364.0 154 FINAL Nicole Carmonaot a [facility] - [place], [address] [place] [id number] 0 Phone: () - 02/12 CBC w/ auto diff Augustus # (ANC) K/uL 1.6 6.6 6.5 FINAL Nicole Terrazas a Oncology - [place], [address] [place] [id number] 0 Phone: () - 02/12 CBC w/ auto diff Augustus % % 43.0 74.0 72.4 FINAL Nicole Terrazas a On[facility] - [place], [address] [place] [id number] 0 Phone: () - 02/12 CBC w/ auto diff IG % % 0.0 0.5 0.9 High FINAL Nicole Terrazas a On[facility] - [place], [address] [place] [id number] 0 Phone: () - 02/12 CBC w/ auto diff IG # K/uL 0.0 0.03 0.08 High FINAL Nicole muñoz Oncology - [place], [address] [place] [id number] 0 Phone: () - 02/12 CBC w/ auto diff LY % % 14.0 41.0 17.0 FINAL Nicole muñoz Oncology - [place], [address] [place] [id number] 0 Phone: () - 02/12 CBC w/ auto diff MO % % 6.0 15.0 9.4 FINAL Nicole muñoz Oncology - [place], [address] [place] [id number] 0 Phone: () - 02/12 CBC w/ auto diff EO % % 0.0 7.0 0.3 FINAL Nicole Carmonaot a On[facility] - [place], [address] [place] [id number] 0 Phone: () - 02/12 CBC w/ auto diff BA % % 0.0 2.0 0.0 FINAL Nicole Ya Mathewot a Oncology - [place], [address] [place] [id number] 0 Phone: () - 02/12 CBC w/ auto diff LY # K/uL 0.4 3.6 1.5 FINAL Nicole Ya Nini a Oncology - [place], [address] [place] [id number] 0 Phone: () - 02/12 CBC w/ auto diff MO # K/uL 0.2 1.3 0.8 FINAL Nicole Ya Nini a Oncology - [place], [address] [place] [id number] 0 Phone: () - 02/12 CBC w/ auto diff EO # K/uL 0.0 0.6 0.0 FINAL Nicole Felton Nini muñoz Oncology - [place], [address] [place] [id number] 0 Phone: () - 02/12 CBC w/ auto diff BA # K/uL 0.0 0.2 0.0 FINAL Nicole Felton Nini muñoz Oncology - [place], [address] [place] [id number] 0 Phone: () - 02/12 CBC w/ auto diff NRBC % #/100W BC 0.0 0.2 0.0 FINAL Nicole Felton Nini a Oncology - [place], [address] [place] [id number] 0 Phone: () - 02/12 CBC w/ auto diff RBC M/uL 3.9 5.1 2.54 Low FINAL Nicole Ya Mathewot a Oncology - [place], [address] [place] [id number] 0 Phone: () - 02/12 CBC w/ auto diff HCT % 35.0 48.0 27.5 Low FINAL Nicole Ya Mathewot a On[facility] - [place], [address] [place] [id number] 0 Phone: () - 02/12 CBC w/ auto diff MCV fL 80.0 104.0 108.3 High FINAL Nicole Felton Mathewot a On[facility] - [place], [address] [place] [id number] 0 Phone: () - 02/12 CBC w/ auto diff MCH pg 26.0 35.0 34.3 FINAL Nicole muñoz Oncology - [place], [address] [place] [id number] 0 Phone: () - 02/12 CBC w/ auto diff MCHC g/dL 30.0 35.0 31.6 FINAL Nicole muñoz Oncology - [place], [address] [place] [id number] 0 Phone: () - 02/12 CBC w/ auto diff MPV fL 9.5 13.4 8.3 Low FINAL Nicole muñoz Oncology - [place], [address] [place] [id number] 0 Phone: () - 02/12 CBC w/ auto diff RDW % 11.4 16.1 17.40 High FINAL Nicole muñoz Oncology - [place], [address] [place] [id number] 0 Phone: () - 02/12 iSTAT Na+/K +/Cl- panel Sodiu m, iSTAT mmol/L 138.0 146.0 139 Reference range adjusted 0 with implement ation of I-Stat 8+ cartridge . FINAL Nicole muñoz Oncology - [place], [address] [place] [id number] 0 Phone: () - 02/12 iSTAT Na+/K +/Cl- panel Potas sium, iSTAT mmol/L 3.5 4.9 3.8 Reference range adjusted 0 with implement ation of I-Stat 8+ cartridge . FINAL Nicole muñoz Oncology - [place], [address] [place] [phone] 0 Phone: () - 02/12 iSTAT Na+/K +/Cl- panel Chlor rakan, iSTAT mmol/L 98.0 109.0 100 Reference range adjusted 0 with implement ation of I-Stat 8+ cartridge . FINAL Nicole muñoz Oncology - [place], [address] [facility] [address] [place] [phone] 0 Phone: () - 02/12 Magne sium, mg/dL mg/dL 1.5 2.3 1.5 FINAL Nicole Ya Mathewdamaris toni Oncology - [place], [address] [place] [id number] 0 Phone: () - 03/01 CBC w/ auto diff WBC K/uL 3.0 8.9 4.5 FINAL Nicole Ya Mathewdamaris muñoz Oncology - [place], [address] [address] [place] [id number] 0 Phone: () - 03/01 CBC w/ auto diff HGB g/dL 11.3 15.2 8.8 Low FINAL Nicole Ya Mathewdamaris toni Oncology - [place], [address] [facility] [address] [place] [id number] 0 Phone: () - 03/01 CBC w/ auto diff PLT K/uL 113.0 364.0 154 FINAL Nicole Carmonadamaris muñoz Oncology - [place], [address] [facility] [address] [place] [id number] 0 Phone: () - 03/01 CBC w/ auto diff Augustus # (ANC) K/uL 1.6 6.6 2.2 FINAL Nicole Ya Mathewdamaris toni Oncology - [place], [address] [place] [id number] 0 Phone: () - 03/01 CBC w/ auto diff Augustus % % 43.0 74.0 49.9 FINAL Nicole Carmonadamaris toni Oncology - [place], [address] [facility] [address] [place] [id number] 0 Phone: () - 03/01 CBC w/ auto diff IG % % 0.0 0.5 0.7 High FINAL Nicole Ya Mathewdamaris muñoz Oncology - [place], [address] [place] [id number] 0 Phone: () - 03/01 CBC w/ auto diff IG # K/uL 0.0 0.03 0.03 FINAL Nicole Ya Mathewot a Oncology - [place], [address] [place] [id number] 0 Phone: () - 03/01 CBC w/ auto diff LY % % 14.0 41.0 32.0 FINAL Nicole Felton [facility] [place], [address] [place] [phone] 0 Phone: () - 03/01 CBC w/ auto diff MO % % 6.0 15.0 14.5 FINAL Nicole Ya [facility] [place], [address] [place] [id number] 0 Phone: () - 03/01 CBC w/ auto diff EO % % 0.0 7.0 2.5 FINAL Nicole Felton [facility] [place], [address] [place] [id number] 0 Phone: () - 03/01 CBC w/ auto diff BA % % 0.0 2.0 0.4 FINAL Nicole Felton [facility] [place], [address] [place] [id number] 0 Phone: () - 03/01 CBC w/ auto diff LY # K/uL 0.4 3.6 1.4 FINAL Nicole Ya [facility] [place], [address] [place] [id number] 0 Phone: () - 03/01 CBC w/ auto diff MO # K/uL 0.2 1.3 0.7 FINAL Nicole Felton [facility] [place], [address] [place] [id number] 0 Phone: () - 03/01 CBC w/ auto diff EO # K/uL 0.0 0.6 0.1 FINAL Nicole Felton [facility] [place], [address] [place] [id number] 0 Phone: () - 03/01 CBC w/ auto diff BA # K/uL 0.0 0.2 0.0 FINAL Nicole Terrazas [facility] [place], [address] [place] [id number] 0 Phone: () - 03/01 CBC w/ auto diff NRBC % #/100W BC 0.0 0.2 0.0 FINAL Nicole Terrazas [facility] [place], [address] [place] [id number] 0 Phone: () - 03/01 CBC w/ auto diff RBC M/uL 3.9 5.1 2.57 Low FINAL Nicole Terrazas [facility] [place], [address] [place] [id number] 0 Phone: () - 03/01 CBC w/ auto diff HCT % 35.0 48.0 28.5 Low FINAL Nicole muñoz [facility] [place], [address] [place] [id number] 0 Phone: () - 03/01 CBC w/ auto diff MCV fL 80.0 104.0 110.9 High FINAL Nicole muñoz [facility] [place], [address] [place] [id number] 0 Phone: () - 03/01 CBC w/ auto diff MCH pg 26.0 35.0 34.2 FINAL Nicole muñoz [facility] [place], [address] [place] [id number] 0 Phone: () - 03/01 CBC w/ auto diff MCHC g/dL 30.0 35.0 30.9 FINAL Nicole [facility] [place], [address] [place] [id number] 0 Phone: () - 03/01 CBC w/ auto diff MPV fL 9.5 13.4 8.2 Low FINAL Nicole muñoz [facility] [place], [address] [place] [id number] 0 Phone: () - 03/01 CBC w/ auto diff RDW % 11.4 16.1 15.70 FINAL Nicole muñoz [facility] [place], [address] [place] [id number] 0 Phone: () - 03/01 CMP Album in g/dL 3.2 5.2 3.4 FINAL Nicole muñoz [facility], [address] [place] [address] [id number] 0 Phone: () - 03/01 CMP Alkal ine phosp hatas e U/L 46.0 116.0 89 FINAL Nicole muñoz [facility], [address] [place] [address] [id number] 0 Phone: () - 03/01 CMP ALT/S GPT U/L 7.0 40.0 15 FINAL Nicole muñoz [facility], [address] [place] [address] [id number] 0 Phone: () - 03/01 CMP AST/S GOT U/L 13.0 40.0 18 FINAL Nicole muñoz [facility], [address] [place] [address] [id number] 0 Phone: () - 03/01 CMP BUN mg/dL 9.0 23.0 9.0 FINAL Nicole muñoz [facility], [address] [place] [address] [id number] 0 Phone: () - 03/01 CMP Calci um mg/dL 8.7 10.4 8.5 Low FINAL Nicole muñoz [facility], [facility] [address] [place] [address] [phone] 0 Phone: () - 03/01 CMP Chlor rakan mmol/L 96.0 114.0 113 FINAL Nicole muñoz [facility], [facility] [address] [place] [address] [id number] 0 Phone: () - 03/01 CMP CO2 [...] 96 hour stability window. FINAL Nicole Terrazas [facility], [address] [phone] 0 Phone: () - 03/01 CMP Creat inine mg/dL 0.5 1.2 0.98 FINAL [place] [address] [id number] 0 Phone: () - 03/01 CMP GFR estim ate ml/min /1.73m ^2 62.4 GFR is calculate d using the CKD-EPI equation. FINAL Nicole Terrazas [place] [address] [id number] 0 Phone: () - 03/01 CMP Gluco se mg/dL 73.0 126.0 136 High [facility] [address] [id number] 0 Phone: () - 03/01 CMP Potas sium mmol/L 3.5 5.1 4.3 [facility] [address] [id number] 0 Phone: () - 03/01 CMP Sodiu m mmol/L 136.0 145.0 147 High [facility]AL [facility] [address] [facility] [address] [id number] 0 Phone: () - 03/01 CMP Bilir ubin, total mg/dL 0.3 1.2 0.5 FINAL [facility], [address] [facility] [address] [id number] 0 Phone: () - 03/01 CMP Total prote in g/dL 5.7 8.2 5.2 Low FINAL Nicole [facility] [place], [address] [place] [id number] 0 Phone: () - 04/12 CBC w/ auto diff WBC K/uL 3.0 8.9 5.3 FINAL Nicole Ya Mathewdamaris muñoz [facility] [place], [address] [place] [phone] 0 Phone: () - 04/12 CBC w/ auto diff HGB g/dL 11.3 15.2 9.4 Low FINAL Nicole Ya [facility] [place], [address] [place] [id number] 0 Phone: () - 04/12 CBC w/ auto diff PLT K/uL 113.0 364.0 167 FINAL Nicole muñoz [facility] [place], [address] [place] [id number] 0 Phone: () - 04/12 CBC w/ auto diff Augustus # (ANC) K/uL 1.6 6.6 3.0 FINAL Nicole muñoz [facility] [place], [address] [place] [id number] 0 Phone: () - 04/12 CBC w/ auto diff Augustus % % 43.0 74.0 57.5 FINAL Nicole muñoz [facility] [place], [address] [place] [id number] 0 Phone: () - 04/12 CBC w/ auto diff IG % % 0.0 0.5 0.4 FINAL Nicole muñoz [facility] [place], [address] [place] [id number] 0 Phone: () - 04/12 CBC w/ auto diff IG # K/uL 0.0 0.03 0.02 FINAL Nicole Terrazas [facility] [place], [address] [place] [id number] 0 Phone: () - 04/12 CBC w/ auto diff LY % % 14.0 41.0 28.6 FINAL Nicole Ya [facility] [place], [address] [place] [id number] 0 Phone: () - 04/12 CBC w/ auto diff MO % % 6.0 15.0 11.6 FINAL Nicole Terrazas [facility] [place], [address] [place] [id number] 0 Phone: () - 04/12 CBC w/ auto diff EO % % 0.0 7.0 1.5 FINAL Nicole Terrazas [facility] [place], [address] [place] [id number] 0 Phone: () - 04/12 CBC w/ auto diff BA % % 0.0 2.0 0.4 FINAL Nicole Terrazas [facility] [place], [address] [place] [id number] 0 Phone: () - 04/12 CBC w/ auto diff LY # K/uL 0.4 3.6 1.5 FINAL Nicole Terrazas [facility] [place], [address] [place] [id number] 0 Phone: () - 04/12 CBC w/ auto diff MO # K/uL 0.2 1.3 0.6 FINAL Nicole Terrazas [facility] [place], [address] [place] [id number] 0 Phone: () - 04/12 CBC w/ auto diff EO # K/uL 0.0 0.6 0.1 FINAL Nicole Terrazas [facility] [place], [address] [place] [phone] 0 Phone: () - 04/12 CBC w/ auto diff BA # K/uL 0.0 0.2 0.0 FINAL Nicole Terrazas [facility] [place], [address] [place] [id number] 0 Phone: () - 04/12 CBC w/ auto diff NRBC % #/100W BC 0.0 0.2 0.0 FINAL Nicole [facility] [place], [address] [place] [id number] 0 Phone: () - 04/12 CBC w/ auto diff RBC M/uL 3.9 5.1 2.94 Low FINAL Nciole Terrazas [facility] [place], [address] [place] [id number] 0 Phone: () - 04/12 CBC w/ auto diff HCT % 35.0 48.0 29.6 Low FINAL Nicole Terrazas [facility] [place], [address] [place] [id number] 0 Phone: () - 04/12 CBC w/ auto diff MCV fL 80.0 104.0 100.7 FINAL Nicole muñoz [facility] [place], [address] [place] [id number] 0 Phone: () - 04/12 CBC w/ auto diff MCH pg 26.0 35.0 32.0 FINAL Nicole Terrazas [facility] [place], [address] [place] [id number] 0 Phone: () - 04/12 CBC w/ auto diff MCHC g/dL 30.0 35.0 31.8 FINAL Nicole Terrazas [facility] [place], [address] [place] [id number] 0 Phone: () - 04/12 CBC w/ auto diff MPV fL 9.5 13.4 9.5 FINAL Nicole [facility] [place], [address] [place] [id number] 0 Phone: () - 04/12 CBC w/ auto diff RDW % 11.4 16.1 12.30 FINAL Nicole [facility] [place], [address] [place] [id number] 0 Phone: () - 04/12 CMP Album in g/dL 3.2 5.2 3.8 FINAL [facility], [address] [facility] [address] [id number] 0 Phone: () - 04/12 CMP Alkal ine phosp hatas e U/L 46.0 116.0 90 FINAL [facility] [address] [facility] [address] [id number] 0 Phone: () - 04/12 CMP ALT/S GPT U/L 7.0 40.0 17 FINAL [facility] [address] [phone] 0 Phone: () - 04/12 CMP AST/S GOT U/L 13.0 40.0 18 FINAL [facility] [address] [facility] [address] [phone] 0 Phone: () - 04/12 CMP BUN mg/dL 9.0 23.0 14.0 FINAL [facility] [address] [facility] [address] [id number] 0 Phone: () - 04/12 CMP Calci um mg/dL 8.7 10.4 9.1 FINAL [place] [address] [address] [facility] [address] [id number] 0 Phone: () - 04/12 CMP Chlor rakan mmol/L 96.0 114.0 110 FINAL Nicole [place] [address] [address] [facility] [address] [phone] 0 Phone: () - 04/12 CMP CO2 [...] the 96 hour stability window. FINAL [facility], [facility] N [facility] [address] [id number] 0 Phone: () - 04/12 CMP Creat inine mg/dL 0.5 1.2 0.86 FINAL Nicole Terrazas [facility], [facility] [address] [facility] [address] [place] [address] [id number] 0 Phone: () - 04/12 CMP GFR estim ate ml/min /1.73m ^2 73.0 GFR is calculate d using the CKD-EPI equation. FINAL Nicole muñoz [place] [address] [address] [facility] [address] [phone] 0 Phone: () - 04/12 CMP Gluco se mg/dL 73.0 126.0 85 FINAL Nicole Terrazas [place] [address] [id number] 0 Phone: () - 04/12 CMP Potas sium mmol/L 3.5 5.1 3.8 FINAL Nicole Terrazas [place] [address] [id number] 0 Phone: () - 04/12 CMP Sodiu m mmol/L 136.0 145.0 146 High FINAL Nicole Terrazas [place] [address] [address] [facility] [address] [id number] 0 Phone: () - 04/12 CMP Bilir ubin, total mg/dL 0.3 1.2 0.3 FINAL Nicole Terrazas [place] [address] [address] [facility] [address] [id number] 0 Phone: () - 04/12 CMP Total prote in g/dL 5.7 8.2 5.6 Low FINAL Nicole Terrazas [facility], [facility] N [facility] [address] [phone] 0 Phone: () - 04/12 PRIOR RESUL T Not Given FINAL Nicole NEGRETE [facility] [address] [place] [id number] 4 04/12 SOUR E: Periphe ral Blood FINAL Nicole NEGRETE, [facility] [address] [place] [id number] 4 04/12 BCR ABL1/ ABL1 % % 0.000 FINAL Nicole Ya [employer], [facility] [address] [place] [id number] 4 04/12 BCR ABL1/ ABL1 % (IS) % 0.000 FINAL Nicole NEGRETE, [facility] [address] [place] [id number] 4 04/12 INTER PRETA TION see note [...] l informati on, please refer tohttp:// education [email or web address] [email or web address](This link is being provided forinform ational/e ducationa l purposes only.)Ass ay sensitivi ty is at least 4.5-logs below baselineB CR-ABL1 transcrip t levels but is dependent onquantit y and quality of RNA used for testing and thecellul arity of the sample.Th is test was developed and its analytica lperforma nce character istics have been determine dby [facility] [place], [place].It has not been cleared or approved by the FDA. Thisassay has been validated pursuant to the CLIAregul ations and is used for clinical purposes. Alejandro Ya, Ph.D, HCLD (ABB)Scie ntific Director, Molecular Oncology FINAL Nicole NEGRETE, [facility] [address] [place] [id number] 4 04/12 P190 BCR ABL1 Not Detecte d FINAL Nicole Spinzo, [facility] [address] [place] [id number] 4 04/12 P210 BCR ABL1 Not Detecte d FINAL Nicole Ya [facility], [facility] [address] [place] [id number] 4 06/04 iSTAT K+ panel Potas sium, iSTAT mmol/L 3.5 4.9 3.8 Reference range adjusted 0 with implement ation of I-Stat 8+ cartridge . FINAL Nicole Ya [facility] [place], [address] [place] [id number] 0 Phone: () - 06/04 CBC w/ auto diff WBC K/uL 3.0 8.9 6.2 FINAL Nicole Ya [facility] [place], [address] [place] [id number] 0 Phone: () - 06/04 CBC w/ auto diff HGB g/dL 11.3 15.2 12.8 FINAL Nicole Ya [facility] [place], [address] [place] [id number] 0 Phone: () - 06/04 CBC w/ auto diff PLT K/uL 113.0 364.0 177 FINAL Nicole Ya [facility] [place], [address] [place] [id number] 0 Phone: () - 06/04 CBC w/ auto diff Augustus # (ANC) K/uL 1.6 6.6 4.0 FINAL Nicole [facility] [place], [address] [place] [id number] 0 Phone: () - 06/04 CBC w/ auto diff Augustus % % 43.0 74.0 63.9 FINAL Nicole Ya [facility] [place], [address] [place] [id number] 0 Phone: () - 06/04 CBC w/ auto diff IG % % 0.0 0.5 0.2 FINAL Nicole [facility] [place], [address] [place] [id number] 0 Phone: () - 06/04 CBC w/ auto diff IG # K/uL 0.0 0.03 0.01 FINAL Nicole [facility] [place], [address] [place] [id number] 0 Phone: () - 06/04 CBC w/ auto diff LY % % 14.0 41.0 27.5 FINAL Nicole [facility] [place], [address] [place] [id number] 0 Phone: () - 06/04 CBC w/ auto diff MO % % 6.0 15.0 7.9 FINAL Nicole [facility] [place], [address] [place] [id number] 0 Phone: () - 06/04 CBC w/ auto diff EO % % 0.0 7.0 0.2 FINAL Nicole [facility] [place], [address] [place] [id number] 0 Phone: () - 06/04 CBC w/ auto diff BA % % 0.0 2.0 0.3 FINAL Nicole [facility] [place], [address] [place] [id number] 0 Phone: () - 06/04 CBC w/ auto diff LY # K/uL 0.4 3.6 1.7 FINAL Nicole [facility] [place], [address] [place] [id number] 0 Phone: () - 06/04 CBC w/ auto diff MO # K/uL 0.2 1.3 0.5 FINAL Nicole Carmonaot [facility] - [place], [address] [place] [id number] 0 Phone: () - 06/04 CBC w/ auto diff EO # K/uL 0.0 0.6 0.0 FINAL Nicole muñoz [facility] - [place], [address] [place] [id number] 0 Phone: () - 06/04 CBC w/ auto diff BA # K/uL 0.0 0.2 0.0 FINAL Nicole muñoz [facility] [place], [address] [place] [id number] 0 Phone: () - 06/04 CBC w/ auto diff NRBC % #/100W BC 0.0 0.2 0.0 FINAL Nicole Ya Nini muñoz [facility] - [place], [address] [place] [id number] 0 Phone: () - 06/04 CBC w/ auto diff RBC M/uL 3.9 5.1 4.27 FINAL Nicole Felton Nini muñoz [facility] - [place], [address] [place] [id number] 0 Phone: () - 06/04 CBC w/ auto diff HCT % 35.0 48.0 39.5 FINAL Nicole Ya Nini muñoz [facility] - [place], [address] [place] [id number] 0 Phone: () - 06/04 CBC w/ auto diff MCV fL 80.0 104.0 92.5 FINAL Nicole Ya Nini muñoz [facility] - [place], [address] [place] [phone] 0 Phone: () - 06/04 CBC w/ auto diff MCH pg 26.0 35.0 30.0 FINAL Nicole muñoz [facility] - [place], [address] [place] [id number] 0 Phone: () - 06/04 CBC w/ auto diff MCHC g/dL 30.0 35.0 32.4 FINAL Nicole Ya [facility] - [place], [address] [place] [id number] 0 Phone: () - 06/04 CBC w/ auto diff MPV fL 9.5 13.4 9.3 Low FINAL Nicole Ya [facility] [place], [address] [place] [id number] 0 Phone: () - 06/04 CBC w/ auto diff RDW % 11.4 16.1 12.70 FINAL Nicole Ya [facility] [place], [address] [place] [id number] 0 Phone: () - 07/05 CBC w/ auto diff WBC K/uL 3.0 8.9 3.3 FINAL Nicole Ya [facility] [place], [address] [place] [id number] 0 Phone: () - 07/05 CBC w/ auto diff HGB g/dL 11.3 15.2 11.9 FINAL Nicole Ya Mathewdamaris muñoz [facility] - [place], [address] [place] [id number] 0 Phone: () - 07/05 CBC w/ auto diff PLT K/uL 113.0 364.0 163 FINAL Nicole Ya [facility] - [place], [address] [place] [id number] 0 Phone: () - 07/05 CBC w/ auto diff Augustus # (ANC) K/uL 1.6 6.6 2.0 FINAL Nicole Ya Mathewdamaris muñ[facility] - [place], [address] [place] [id number] 0 Phone: () - 07/05 CBC w/ auto diff Augustus % % 43.0 74.0 58.6 FINAL Nicole Ya [facility] [place], [address] [place] [id number] 0 Phone: () - 07/05 CBC w/ auto diff IG % % 0.0 0.5 0.3 FINAL Nicole Ya [facility] [place], [address] [place] [id number] 0 Phone: () - 07/05 CBC w/ auto diff IG # K/uL 0.0 0.03 0.01 FINAL Nicole Terrazas [facility] [place], [address] [place] [id number] 0 Phone: () - 07/05 CBC w/ auto diff LY % % 14.0 41.0 24.3 FINAL Nicole Terrazas [facility] [place], [address] [place] [id number] 0 Phone: () - 07/05 CBC w/ auto diff MO % % 6.0 15.0 16.2 High FINAL Nicole Terrazas [facility] [place], [address] [place] [id number] 0 Phone: () - 07/05 CBC w/ auto diff EO % % 0.0 7.0 0.3 FINAL Nicole muñoz [facility] - [place], [address] [place] [id number] 0 Phone: () - 07/05 CBC w/ auto diff BA % % 0.0 2.0 0.3 FINAL Nicole muñoz [facility] - [place], [address] [place] [id number] 0 Phone: () - 07/05 CBC w/ auto diff LY # K/uL 0.4 3.6 0.8 FINAL Nicole muñoz [facility] - [place], [address] [place] [id number] 0 Phone: () - 07/05 CBC w/ auto diff MO # K/uL 0.2 1.3 0.5 FINAL Nicole Terrazas [facility] [place], [address] [place] [id number] 0 Phone: () - 07/05 CBC w/ auto diff EO # K/uL 0.0 0.6 0.0 FINAL Nicole Terrazas [facility] - [place], [address] [place] [id number] 0 Phone: () - 07/05 CBC w/ auto diff BA # K/uL 0.0 0.2 0.0 FINAL Nicole Terrazas [facility] - [place], [address] [place] [id number] 0 Phone: () - 07/05 CBC w/ auto diff NRBC % #/100W BC 0.0 0.2 0.0 FINAL Nicole Terrazas [facility] [place], [address] [place] [id number] 0 Phone: () - 07/05 CBC w/ auto diff RBC M/uL 3.9 5.1 3.95 FINAL Nicole muñoz [facility] - [place], [address] [place] [id number] 0 Phone: () - 07/05 CBC w/ auto diff HCT % 35.0 48.0 36.7 FINAL Nicole muñoz [facility] - [place], [address] [place] [id number] 0 Phone: () - 07/05 CBC w/ auto diff MCV fL 80.0 104.0 92.9 FINAL Nicole muñoz [facility] - [place], [address] [place] [id number] 0 Phone: () - 07/05 CBC w/ auto diff MCH pg 26.0 35.0 30.1 FINAL Nicole Terrazas [facility] [place], [address] [place] [id number] 0 Phone: () - 07/05 CBC w/ auto diff MCHC g/dL 30.0 35.0 32.4 FINAL Nicole Terrazas [facility] [place], [address] [place] [id number] 0 Phone: () - 07/05 CBC w/ auto diff MPV fL 9.5 13.4 8.8 Low FINAL Nicole Felton [facility] [place], [address] [address] [facility] [place] [id number] 0 Phone: () - 07/05 CBC w/ auto diff RDW % 11.4 16.1 14.10 FINAL Nicole Felton Mathew [facility] - [place], [address] [facility] [address] [facility] [place] [id number] 0 Phone: () - 07/05 CMP Album in g/dL 3.2 5.2 4.4 FINAL Nicole Ya * [facility], [address] [facility] [id number] 0 Phone: () - 07/05 CMP Alkal ine phosp hatas e U/L 46.0 116.0 107 FINAL Nicole Ya * [facility], [address] [facility] [address] [place] [address] [id number] 0 Phone: () - 07/05 CMP ALT/S GPT U/L 7.0 40.0 26 FINAL Nicoledarius Ya * [facility], [address] [facility] [id number] 0 Phone: () - 07/05 CMP AST/S GOT U/L 13.0 40.0 23 FINAL Ncioledarius Ya * [facility], [address] [facility] [id number] 0 Phone: () - 07/05 CMP BUN mg/dL 9.0 23.0 15.0 FINAL Nicole Ya * [facility], [address] [facility] [id number] 0 Phone: () - 07/05 CMP Calci um mg/dL 8.7 10.4 10.4 FINAL Nicole Ya * [facility], [address] [facility] [address] [facility] [id number] 0 Phone: () - 07/05 CMP Chlor rakan mmol/L 96.0 114.0 109 FINAL Nicole Ya * [facility], [address] [facility] [id number] 0 Phone: () - 07/05 CMP CO2 [...] 96 hour stability window. FINAL Nicoledarius Najera [place] [address] [phone] 0 Phone: () - 07/05 CMP Creat inine mg/dL 0.5 1.2 1.06 FINAL Nicole Najera [address] [id number] 0 Phone: () - 07/05 CMP GFR estim ate ml/min /1.73m ^2 56.7 Low GFR is calculate d using the CKD-EPI equation. FINAL Nicoledarius Najera [place] [address] [id number] 0 Phone: () - 07/05 CMP Gluco se mg/dL 73.0 126.0 97 FINAL Nicoledarius Najera [place] [address] [id number] 0 Phone: () - 07/05 CMP Potas sium mmol/L 3.5 5.1 4.4 FINAL Nicoledarius Najera [place] [address] [id number] 0 Phone: () - 07/05 CMP Sodiu m mmol/L 136.0 145.0 143 FINAL Nicoledarius Ya * [place] [address] [id number] 0 Phone: () - 07/05 CMP Bilir ubin, total mg/dL 0.3 1.2 0.5 FINAL Nicoledarius Ya * [facility] [address] [id number] 0 Phone: () - 07/05 CMP Total prote in g/dL 5.7 8.2 6.4 FINAL Nicole Ya * [place] On[facility] - [place], [address] [facility] [id number] 0 Phone: () - 12/02 PRIOR RESUL T See Report FINAL Nicole NEGRETE, [facility] [address] [place] [id number] 4 12/02 SOURC E: Periphe ral Blood FINAL Nicole NEGRETE, [facility] [address] [place] [id number] 4 12/02 BCR ABL1/ ABL1 % % 0.000 FINAL Nicole NEGRETE, [facility] [address] [place] [id number] 4 12/02 BCR ABL1/ ABL1 % (IS) % 0.000 FINAL Nicole NEGRETE [facility] [address] [place] [id number] 4 12/02 INTER PRETA TION see note [...] l informati on, please refer tohttp:// education .Melodigram/faq/F AQ72(This link is being provided forinform ational/e ducationa l purposes only.)Ass ay sensitivi ty is at least 4.5-logs below baselineB CR-ABL1 transcrip t levels but is dependent onquantit y and quality of RNA used for testing and thecellul arity of the sample.Th is test was developed and its analytica lperforma nce character istics have been determine dby [facility] [place], [place].It has not been cleared or approved by the FDA. Thisassay has been validated pursuant to the CLIAregul ations and is used for clinical purposes. Alejandro Ya, Ph.D, HCLD (ABB)Chucky head Director, Molecular Oncology FINAL Nicole Ya QUEST, [facility] [address] [place] [id number] 4 12/02 P190 BCR ABL1 Not Detecte d FINAL Nicole Ya QUEST, [facility] [address] [place] [id number] 4 12/02 P210 BCR ABL1 Not Detecte d FINAL Nicole Ya QUEST, [facility] [address] [place] [id number] 4 12/02 CMP Album in g/dL 3.5 5.0 4.3 FINAL Nicole Ya * [place] [facility], [address] [facility] [id number] 0 12/02 CMP Alkal ine phosp hatas e U/L 36.0 125.0 126 High FINAL Nicole Ya * [place] [facility], [address] [facility] [id number] 0 12/02 CMP ALT/S GPT U/L 0.0 34.0 29 FINAL Nicole Ya * [place] [facility], [address] [facility] [id number] 0 12/02 CMP AST/S GOT U/L 14.0 36.0 39 High FINAL Nicole Ya * [place] [facility], [address] [facility] [id number] 0 12/02 CMP BUN mg/dL 7.0 17.0 14.0 FINAL Nicole Ya * [place] [facility], [address] [facility] [id number] 0 12/02 CMP Calci um mg/dL 8.4 10.2 9.1 FINAL Nicole Ya * [place] [facility], [address] [facility] [id number] 0 12/02 CMP Chlor rakan mmol/L 96.0 107.0 108 High FINAL Nicole Ya * [place] [facility], [address] [facility] [id number] 0 12/02 CMP CO2 mmol/L 22.0 30.0 [...] window. FINAL Nicole Ya * [place] [facility], [address] [facility] [address] [facility] [id number] 0 12/02 CMP Creat inine mg/dL 0.66 1.25 1.30 High FINAL Nicole Ya * [place] [facility], [address] [facility] [address] [facility] [id number] 0 12/02 CMP GFR estim ate ml/min /1.73m ^2 44.3 Low GFR is calculate d using the CKD-EPI equation. FINAL Nicole Ya * [place] [facility], [address] [facility] [address] [facility] [id number] 0 12/02 CMP Gluco se mg/dL 74.0 100.0 126 High FINAL Nicole Ya * [place] [facility], [address] [facility] [id number] 0 12/02 CMP Potas sium mmol/L 3.5 5.1 3.9 FINAL Nicole Ya * [place] [facility], [address] [facility] [id number] 0 12/02 CMP Sodiu m mmol/L 137.0 145.0 140 FINAL Nicole aY * [place] [facility], [address] [facility] [id number] 0 12/02 CMP Bilir ubin, total mg/dL 0.2 1.3 0.7 FINAL Nicole Ya * [place] [facility], [address] [facility] [id number] 0 12/02 CMP Total prote in g/dL 6.3 8.2 6.5 FINAL Nicole Ya * [place] [facility], [address] [facility] [id number] 0 12/02 CBC w/ auto diff WBC K/uL 3.0 8.9 4.0 FINAL Nicole Terrazas a [facility] - [place], [address] [place] [id number] 0 Phone: () - 12/02 CBC w/ auto diff HGB g/dL 11.3 15.2 12.8 FINAL Nicole Terrazas a [facility] - [place], [address] [place] [id number] 0 Phone: () - 12/02 CBC w/ auto diff PLT K/uL 113.0 364.0 175 FINAL Nicole Carmona[place] a [facility] - [place], [address] [place] [id number] 0 Phone: () - 12/02 CBC w/ auto diff Augustus # (ANC) K/uL 1.6 6.6 2.5 FINAL Nicole Ya [place] [facility] [place], [address] [place] [id number] 0 Phone: () - 12/02 CBC w/ auto diff Augustus % % 43.0 74.0 63.2 FINAL Nicole Terrazas a [facility] - [place], [address] [place] [id number] 0 Phone: () - 12/02 CBC w/ auto diff IG % % 0.0 0.5 0.3 FINAL Nicole Terrazas a [facility] - [place], [address] [place] [id number] 0 Phone: () - 12/02 CBC w/ auto diff IG # K/uL 0.0 0.03 0.01 FINAL Nicole Carmonaot a [facility] - [place], [address] [place] [id number] 0 Phone: () - 12/02 CBC w/ auto diff LY % % 14.0 41.0 25.7 FINAL Nicole Terrazas a [facility] - [place], [address] [place] [id number] 0 Phone: () - 12/02 CBC w/ auto diff MO % % 6.0 15.0 10.8 FINAL Nicole Terrazas a [facility] - [place], [address] [place] [id number] 0 Phone: () - 12/02 CBC w/ auto diff EO % % 0.0 7.0 0.0 FINAL Nicole Terrazas a [facility] - [place], [address] [place] [id number] 0 Phone: () - 12/02 CBC w/ auto diff BA % % 0.0 2.0 0.0 FINAL Nicole Carmonaot a [facility] - [place], [address] [place] [id number] 0 Phone: () - 12/02 CBC w/ auto diff LY # K/uL 0.4 3.6 1.0 FINAL Nicole Carmonaot a [facility] - [place], [address] [place] [id number] 0 Phone: () - 12/02 CBC w/ auto diff MO # K/uL 0.2 1.3 0.4 FINAL Nicole [facility] a [facility] - [place], [address] [place] [id number] 0 Phone: () - 12/02 CBC w/ auto diff EO # K/uL 0.0 0.6 0.0 FINAL Nicole Carmona[place] a [facility] - [place], [address] [place] [id number] 0 Phone: () - 12/02 CBC w/ auto diff BA # K/uL 0.0 0.2 0.0 FINAL Nicole Carmonaot a [facility] - [place], [address] [place] [id number] 0 Phone: () - 12/02 CBC w/ auto diff NRBC % #/100W BC 0.0 0.2 0.0 FINAL Nicole Carmonaot a [facility] - [place], [address] [place] [id number] 0 Phone: () - 12/02 CBC w/ auto diff RBC M/uL 3.9 5.1 3.98 FINAL Nicole Terrazas a [facility] - [place], [address] [place] [id number] 0 Phone: () - 12/02 CBC w/ auto diff HCT % 35.0 48.0 38.6 FINAL Nicole Carmonaot a [facility] - [place], [address] [place] [id number] 0 Phone: () - 12/02 CBC w/ auto diff MCV fL 80.0 104.0 97.0 FINAL Nicole Carmonaot a [facility] - [place], [address] [place] [id number] 0 Phone: () - 12/02 CBC w/ auto diff MCH pg 26.0 35.0 32.2 FINAL Nicole Ya [place] [facility] [place], [address] [place] [id number] 0 Phone: () - 12/02 CBC w/ auto diff MCHC g/dL 30.0 35.0 33.2 FINAL Nicole Ya [place] [facility] [place], [address] [place] [id number] 0 Phone: () - 12/02 CBC w/ auto diff MPV fL 9.5 13.4 9.1 Low FINAL Nicole Ya [place] [facility] [place], [address] [place] [id number] 0 Phone: () - 12/02 CBC w/ auto diff RDW % 11.4 16.1 12.70 FINAL Nicole Ya [place] [facility] [place], [address] [place] [id number] 0 Phone: () - 03/30 [facility] [place] See crown attacher d 05/21 [facility] [place] See crown attacher d 06/15 CMP Album in g/dL 3.5 5.0 4.6 FINAL Nicole Ya * [facility] , [address] [facility] [id number] 0 06/15 CMP Alkal ine phosp hatas e U/L 36.0 125.0 92 FINAL Nicole Ya * [facility] , [address] [facility] [id number] 0 06/15 CMP ALT/S GPT U/L 0.0 34.0 44 High FINAL Nicole Ya * [facility] , [address] [facility] [id number] 0 06/15 CMP AST/S GOT U/L 14.0 36.0 43 High FINAL Nicole Ya * [facility] , [address] [facility] [id number] 0 06/15 CMP BUN mg/dL 7.0 17.0 17.0 FINAL Nicole Ya * [facility] , [address] [facility] [id number] 0 06/15 CMP Calci um mg/dL 8.4 10.2 9.6 FINAL Nicole Ya * [facility] , [address] [facility] [id number] 0 06/15 CMP Chlor rakan mmol/L 96.0 107.0 106 FINAL Nicole Ya * [facility] , [address] [facility] [address] [facility] [id number] 0 06/15 CMP CO2 mmol/L 22.0 30.0 [...] hour stability window. FINAL Nicoledarius Ya * [facility] , [address] [facility] [id number] 0 06/15 CMP Creat inine mg/dL 0.66 1.25 1.30 High FINAL Nicole Ya * [facility] , [address] [facility] [id number] 0 06/15 CMP GFR estim ate ml/min /1.73m ^2 44.1 Low GFR is calculate d using the CKD-EPI equation. FINAL Nicoledarius Ya * [facility] , [address] [facility] [id number] 0 06/15 CMP Gluco se mg/dL 74.0 100.0 94 FINAL Nicole Ya * [facility] , [address] [facility] [id number] 0 06/15 CMP Potas sium mmol/L 3.5 5.1 4.1 FINAL Nicole Ya * [facility] , [address] [facility] [id number] 0 06/15 CMP Sodiu m mmol/L 137.0 145.0 140 FINAL Nicole Ya * [facility] , [address] [facility] [id number] 0 06/15 CMP Bilir ubin, total mg/dL 0.2 1.3 0.9 FINAL Nicole Ya * [facility] , [address] [facility] [id number] 0 06/15 CMP Total prote in g/dL 6.3 8.2 6.7 FINAL Nicole Ya * [facility] , [address] [facility] [id number] 0 06/15 CBC w/ auto diff WBC K/uL 3.0 8.9 4.7 FINAL Nicole Ya [place] [facility] , [address] [place] [id number] 0 06/15 CBC w/ auto diff HGB g/dL 11.3 15.2 13.6 FINAL Nicole Ya [place] [facility] , [address] [place] [id number] 0 06/15 CBC w/ auto diff PLT K/uL 113.0 364.0 151 FINAL Nicole Ya [place] [facility] , [address] [place] [id number] 0 06/15 CBC w/ auto diff Augustus # (ANC) K/uL 1.6 6.6 2.9 FINAL Nicole Ya [place] [facility] , [address] [place] [id number] 0 06/15 CBC w/ auto diff Augustus % % 43.0 74.0 61.4 FINAL Nicole Ya [place] [facility] , [address] [place] [id number] 0 06/15 CBC w/ auto diff IG % % 0.0 0.5 0.2 FINAL Nicole Ya [place] [facility] , [address] [place] [id number] 0 06/15 CBC w/ auto diff IG # K/uL 0.0 0.03 0.01 FINAL Nicole Ya [place] [facility] , [address] [place] [id number] 0 06/15 CBC w/ auto diff LY % % 14.0 41.0 28.3 FINAL Nicole Ya [place] [facility] , [address] [place] [id number] 0 06/15 CBC w/ auto diff MO % % 6.0 15.0 10.1 FINAL Nicole Ya [place] [facility] , [address] [place] [id number] 0 06/15 CBC w/ auto diff EO % % 0.0 7.0 0.0 FINAL Nicole Ya [place] [facility] , [address] [place] [id number] 0 06/15 CBC w/ auto diff BA % % 0.0 2.0 0.0 FINAL Nicole Ya [place] [facility] , [address] [place] [id number] 0 06/15 CBC w/ auto diff LY # K/uL 0.4 3.6 1.3 FINAL Nicole Ya [place] [facility] , [address] [place] [id number] 0 06/15 CBC w/ auto diff MO # K/uL 0.2 1.3 0.5 FINAL Nicole Ya [place] [facility] , [address] [place] [id number] 0 06/15 CBC w/ auto diff EO # K/uL 0.0 0.6 0.0 FINAL Nicole Ya [place] [facility] , [address] [place] [id number] 0 06/15 CBC w/ auto diff BA # K/uL 0.0 0.2 0.0 FINAL Nicole Ya [place] [facility] , [address] [place] [id number] 0 06/15 CBC w/ auto diff NRBC % #/100W BC 0.0 0.2 0.0 FINAL Nicole Ya [place] [facility] , [address] [place] [id number] 0 06/15 CBC w/ auto diff RBC M/uL 3.9 5.1 4.32 FINAL Nicole Ya [place] [facility] , [address] [place] [id number] 0 06/15 CBC w/ auto diff HCT % 35.0 48.0 41.6 FINAL Nicole Ya [place] [facility] , [address] [place] [id number] 0 06/15 CBC w/ auto diff MCV fL 80.0 104.0 96.3 FINAL Nicole Ya [place] [facility] , [address] [place] [id number] 0 06/15 CBC w/ auto diff MCH pg 26.0 35.0 31.5 FINAL Nicole Ya [place] [facility] , [address] [place] [id number] 0 06/15 CBC w/ auto diff MCHC g/dL 30.0 35.0 32.7 FINAL Nicole Ya [place] [facility] , [address] [place] [id number] 0 06/15 CBC w/ auto diff MPV fL 9.5 13.4 9.3 Low FINAL Nicole Ya [place] [facility] , [address] [place] [id number] 0 06/15 CBC w/ auto diff RDW % 11.4 16.1 12.00 FINAL Nicole Ya [place] [facility] , [address] [place] [id number] 0 06/15 PRIOR RESUL T See Report FINAL Nicole NEGRETE [facility] [address] [place] [id number] 4 06/15 SOURC E: Periphe ral Blood FINAL Nicole NEGRETE, [facility] [address] [place] [id number] 4 06/15 BCR ABL1/ ABL1 % % 0.000 FINAL Nicole NEGRETE [facility] [address] [place] [id number] 4 06/15 BCR ABL1/ ABL1 % (IS) % 0.000 FINAL Nicole Spinzo, [facility] [address] [place] [id number] 4 06/15 INTER PRETA TION see note [...] l informati on, please refer tohttp:// education .Melodigram/faq/F AQ72(This link is being provided forinform ational/e ducationa l purposes only.)Ass ay sensitivi ty is at least 4.5-logs below baselineB CR-ABL1 transcrip t levels but is dependent onquantit y and quality of RNA used for testing and thecellul arity of the sample.Th is test was developed and its analytica lperforma nce character istics have been determine dby [facility] [place], [place].It has not been cleared or approved by the FDA. Thisassay has been validated pursuant to the CLIAregul ations and is used for clinical purposes. Denver wilson M.D. FINAL [employer], [facility] [address] [place] [id number] 4 06/15 P190 BCR ABL1 Not Detecte d FINAL Nicole Spinzo, [facility] [address] [place] [id number] 4 06/15 P210 BCR ABL1 Not Detecte d FINAL [employer], [facility] [address] [place] [id number] 4 01/06 CMP Album in g/dL 3.5 5.0 3.9 FINAL Nicole Ya * [facility] , [address] [facility] [address] [id number] 0 01/06 CMP Alkal ine phosp hatas e U/L 36.0 125.0 79 FINAL Nicole Ya * [facility] , [address] [facility] [address] [id number] 0 01/06 CMP ALT/S GPT U/L 0.0 34.0 24 FINAL Nicole Ya * [facility] , [facility] [address] [id number] 0 01/06 CMP AST/S GOT U/L 14.0 36.0 33 FINAL Nicole Ya * [facility] , [address] [facility] [address] [id number] 0 01/06 CMP BUN mg/dL 7.0 17.0 14.0 FINAL Nicole Ya * [facility] , [address] [facility] [address] [id number] 0 01/06 CMP Calci um mg/dL 8.4 10.2 8.9 FINAL Nicole Ya * [facility] , [address] [facility] [address] [id number] 0 01/06 CMP Chlor rakan mmol/L 96.0 107.0 109 High FINAL Nicole Ya * [facility] , [address] [facility] [address] [id number] 0 01/06 CMP CO2 mmol/L 22.0 30.0 [...] hour stability window. FINAL Nicole Ya * [facility] , [facility] [address] [id number] 0 01/06 CMP Creat inine mg/dL 0.66 1.25 1.00 FINAL Nicole Ya * [facility] , [facility] [address] [id number] 0 01/06 CMP GFR estim ate ml/min /1.73m ^2 60.2 GFR is calculate d using the CKD-EPI equation. FINAL Nicole Ya * [facility] , [facility] [address] [id number] 0 01/06 CMP Gluco se mg/dL 74.0 100.0 88 FINAL Nicole Ya * [facility] , [facility] [address] [id number] 0 01/06 CMP Potas sium mmol/L 3.5 5.1 4.1 FINAL Nicole Ya * [facility] , [facility] [address] [id number] 0 01/06 CMP Sodiu m mmol/L 137.0 145.0 141 FINAL Nicole Ya * [facility] , [facility] [address] [id number] 0 01/06 CMP Bilir ubin, total mg/dL 0.2 1.3 0.8 FINAL Nicole Ya * [facility] , [facility] [address] [id number] 0 01/06 CMP Total prote in g/dL 6.3 8.2 6.2 Low FINAL Nicole Ya * [place] [facility] [place] [facility] , [address] [place] [id number] 0 01/06 CBC w/ auto diff WBC K/uL 3.0 8.9 4.5 FINAL Nicole Ya [place] [facility] [place] [facility] , [address] [place] [id number] 0 01/06 CBC w/ auto diff HGB g/dL 11.3 15.2 12.8 FINAL Nicole Ya [place] [facility] , [address] [place] [id number] 0 01/06 CBC w/ auto diff PLT K/uL 113.0 364.0 153 FINAL Nicole Felton [place] [facility] , [address] [place] [id number] 0 01/06 CBC w/ auto diff Augustus # (ANC) K/uL 1.6 6.6 2.8 FINAL Nicole Ya [place] [facility] , [address] [place] [id number] 0 01/06 CBC w/ auto diff Augustus % % 43.0 74.0 61.5 FINAL Nicole Ya [place] [facility] , [address] [place] [id number] 0 01/06 CBC w/ auto diff IG % % 0.0 0.5 0.4 FINAL Nicole Ya [place] [facility] , [address] [place] [id number] 0 01/06 CBC w/ auto diff IG # K/uL 0.0 0.03 0.02 FINAL Nicole Ya [place] [facility] , [address] [place] [id number] 0 01/06 CBC w/ auto diff LY % % 14.0 41.0 25.4 FINAL Nicole Ya [place] [facility] , [address] [place] [id number] 0 01/06 CBC w/ auto diff MO % % 6.0 15.0 12.7 FINAL Nicole Ya [place] [facility] , [address] [place] [id number] 0 01/06 CBC w/ auto diff EO % % 0.0 7.0 0.0 FINAL Nicole Ya [place] [facility] , [address] [place] [id number] 0 01/06 CBC w/ auto diff BA % % 0.0 2.0 0.0 FINAL Nicole Ya [place] [facility] , [address] [place] [id number] 0 01/06 CBC w/ auto diff LY # K/uL 0.4 3.6 1.1 FINAL Nicole Ya [place] [facility] , [address] [place] [id number] 0 01/06 CBC w/ auto diff MO # K/uL 0.2 1.3 0.6 FINAL Nicole Ya [place] [facility] , [address] [place] [id number] 0 01/06 CBC w/ auto diff EO # K/uL 0.0 0.6 0.0 FINAL Nicole Ya [place] [facility] , [address] [place] [id number] 0 01/06 CBC w/ auto diff BA # K/uL 0.0 0.2 0.0 FINAL Nicole Ya [place] [facility] , [address] [place] [id number] 0 01/06 CBC w/ auto diff NRBC % #/100W BC 0.0 0.2 0.0 FINAL Nicole Ya [place] [facility] [place] [facility] , [address] [place] [id number] 0 01/06 CBC w/ auto diff RBC M/uL 3.9 5.1 3.69 Low FINAL Nicoledarius Ya [place] [facility] , [address] [place] [id number] 0 01/06 CBC w/ auto diff HCT % 35.0 48.0 37.6 FINAL Nicoledarius Ya [facility] [place] [facility] , [address] [place] [id number] 0 01/06 CBC w/ auto diff MCV fL 80.0 104.0 101.9 FINAL Nicole Ya [place] [facility] , [address] [place] [id number] 0 01/06 CBC w/ auto diff MCH pg 26.0 35.0 34.7 FINAL Nicole Ya [place] [facility] , [address] [place] [id number] 0 01/06 CBC w/ auto diff MCHC g/dL 30.0 35.0 34.0 FINAL Nicole Ya [place] [facility] , [address] [place] [id number] 0 01/06 CBC w/ auto diff MPV fL 9.5 13.4 9.6 FINAL Nicole Ya [place] [facility] , [address] [place] [id number] 0 01/06 CBC w/ auto diff RDW % 11.4 16.1 13.00 FINAL Nicole Ya [place] [facility] [place] [facility] , [address] [place] [id number] 0 01/06 PRIOR RESUL T See Report FINAL Nicole Ya [employer], [facility] [address] [place] [id number] 4 01/06 SOURC E: Periphe ral Blood FINAL Nicole NEGRETE, [facility] [address] [place] [id number] 4 01/06 BCR ABL1/ ABL1 % % 0.000 FINAL Nicole NEGRETE [facility] [address] [place] [id number] 4 01/06 BCR ABL1/ ABL1 % (IS) % 0.000 FINAL Nicole NEGRETE, [facility] [address] [place] [id number] 4 01/06 INTER PRETA TION see note [...] l informati on, please refer tohttp:// education .Melodigram/faq/F AQ72(This link is being provided forinform ational/e ducationa l purposes only.)Ass ay sensitivi ty is at least 4.5-logs below baselineB CR-ABL1 transcrip t levels but is dependent onquantit y and quality of RNA used for testing and thecellul arity of the sample.Th is test was developed and its analytica lperforma nce character istics have been determine dby [facility] [place], [place].It has not been cleared or approved by the FDA. Thisassay has been validated pursuant to the CLIAregul ations and is used for clinical purposes. Reviewed by Aiden Hui M.D., Ph.D.Rocío f Pathologi [facility] [employer], [facility] [address] [place] [id number] 4 01/06 P190 BCR ABL1 Not Detecte d [facility] [employer], [facility] [address] [place] [id number] 4 01/06 P210 BCR ABL1 Not Detecte d [facility] [employer], [facility] [address] [place] [id number] 4 Medications Date Name Route Dose Frequency [...]
--- OUTSIDE RECORDS SUMMARY | 2025-02-08 13:40 | XMS_ITS ---
Author Name Interface, [id number] lity Address [address] [place], [place] [address] [place] [id number] [facility] Address [facility] [address] [address] Allergies and Adverse Reactions Plan Reason for Visit Encounters Immunizations Diagnostic Results Medications Problems Vital Signs Notes Section
--- OUTSIDE RECORDS SUMMARY | 2025-02-08 13:41 | XMS_ITS ---
Author Name Interface, [id number] lity Address [address] [facility] [address] [address] [facility] Address [address] [facility] [address] [place] [address] Allergies and Adverse Reactions Medication/Group Name Reaction Severity Date imatinib mesylate 01/20/2025 topiramate 01/20/2025 Plan Date Type Value 01/20/2025 APPOINTMENT OV 30 MIN Reason for Visit OV 30 MIN Encounters Date Name 01/20/2025 Cellulitis of breast (disorder) 01/20/2025 Lymphedema Immunizations Date Name Route Dose Instructions Refusal Reason Stat us Covid-19 vaccine (Moderna) Patient declined/rejected Not Administered Medications Date Name Route Dose Frequency Instructions [...] given Active Vital Signs Date Type Value 01/20/2025 Body Temperature 96.80 01/20/2025 Heart Beat 72.00 01/20/2025 Respiratory Rate 16.00 01/20/2025 Oxygen Saturation 98.00 01/20/2025 BSA 1.88 01/20/2025 Pain Scale 0.00 01/20/2025 Weight 169.80 01/20/2025 Height 66.50 01/20/2025 BMI 27.00 01/20/2025 Intravascular Systolic 132 01/20/2025 Intravascular Diastolic 82 Notes Section * Med Onc Follow-up Note Patient Name: MARIO TAM Date Of : 1955 Today's Provider:?Tiara Coronado RN, LAUNDRY PRICING CLERK, MA, AOCN Date of Service:?01/20/2025 Attending Physician:?Nicole Ya (Hematology/Oncology) Referring Provider: ? HEMATOLOGY/ MEDICAL ONCOLOGY FOLLOW UP VISIT Reason for Visit Follow-up right breast cellulitis Assessment 1.?Stage IIA Right breast cancer ???(10/25/2022) treatment intent: Curative??right-sided breast cancer clinically, T1??N1 M0, invasiveductal cancer, ER negative??[very weakly positive], [place] negative, HER2/augustus 3+ ?Treatment intent is curative, [...] ?Lymph node metastatic carcinoma ??? ER negative, [place] negative, HER2/augustus 3+ on??breast ??? ER low +1 to 5%, AZ -0%, HER2/augustus 3+ lymph node 2.?? 12/24/2022: [...] children live??locally-1 son??lives on a farm near [facility]. ??Another son lives about 9 miles away near [place].?? One child lives in [place].?? She is a supportive group of friends.?? 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 Habits:?? Nonsmoker, does not drink ETOH Vital [...] (T1b, N1, M0, G2, ER Status: Negative, AZ Status: Negative, HER-2/augustus Status: Positive) Histopathologic Type: [...]
--- OUTSIDE RECORDS SUMMARY | 2025-02-08 13:41 | XMS_ITS ---
Author Name Interface, [id number] lity Address [address] [facility] [address] [address] [facility] Address [address] [facility] [address] [address] Allergies and Adverse Reactions Medication/Group Name Reaction [...] [address] [place] [id number] 0 01/06 CBC w/ auto diff HGB g/dL 11.3 15.2 12.8 FINAL Nicole [facility] [place] [facility] , [address] [place] [id number] 0 01/06 CBC w/ auto diff PLT K/uL 113.0 364.0 153 FINAL Nicole Ya [place] [facility] , [address] [place] [id number] 0 01/06 CBC w/ auto diff Augustus # (ANC) K/uL 1.6 6.6 2.8 FINAL Nicole Ya [place] [facility] , [address] [place] [id number] 0 01/06 CBC w/ auto diff Augustus % % 43.0 74.0 61.5 FINAL Nicole Ya [place] [facility] , [address] [place] [id number] 0 01/06 CBC w/ auto diff IG % % 0.0 0.5 0.4 FINAL Nicole Ya [place] [facility] , [address] [place] [id number] 0 01/06 CBC w/ auto diff IG # K/uL 0.0 0.03 0.02 FINAL Nicole Ya [place] [facility] , [address] [place] [id number] 0 01/06 CBC w/ auto diff LY % % 14.0 41.0 25.4 FINAL Nicole Ya [place] [facility] , [address] [place] [id number] 0 01/06 CBC w/ auto diff MO % % 6.0 15.0 12.7 FINAL Nicole Ya [place] [facility] , [address] [place] [id number] 0 01/06 CBC w/ auto diff EO % % 0.0 7.0 0.0 FINAL Nicole Ya [place] [facility] , [address] [place] [id number] 0 01/06 CBC w/ auto diff BA % % 0.0 2.0 0.0 FINAL Nicole Ya [place] [facility] , [address] [place] [id number] 0 01/06 CBC w/ auto diff LY # K/uL 0.4 3.6 1.1 FINAL Nicole Ya [place] [facility] , [address] [place] [id number] 0 01/06 CBC w/ auto diff MO # K/uL 0.2 1.3 0.6 FINAL Nicole Ya [place] [facility] , [address] [place] [id number] 0 01/06 CBC w/ auto diff EO # K/uL 0.0 0.6 0.0 FINAL Nicole Ya [place] [facility] , [address] [place] [id number] 0 01/06 CBC w/ auto diff BA # K/uL 0.0 0.2 0.0 FINAL Nicole Ya [place] [facility] , [address] [place] [id number] 0 01/06 CBC w/ auto diff NRBC % #/100W BC 0.0 0.2 0.0 FINAL Nicole Ya [place] [facility] , [address] [place] [id number] 0 01/06 CBC w/ auto diff RBC M/uL 3.9 5.1 3.69 Low FINAL Nicole Ya [place] [facility] , [address] [place] [id number] 0 01/06 CBC w/ auto diff HCT % 35.0 48.0 37.6 FINAL Nicole Ya [place] [facility] , [address] [place] [id number] 0 01/06 CBC w/ auto diff MCV fL 80.0 104.0 101.9 FINAL Nicole Ya [place] [facility] , [address] [place] [id number] 0 01/06 CBC w/ auto diff MCH pg 26.0 35.0 34.7 FINAL Nicole Ya [place] [facility] , [address] [place] [id number] 0 01/06 CBC w/ auto diff MCHC g/dL 30.0 35.0 34.0 FINAL Nicole Ya [place] [facility] , [address] [place] [id number] 0 01/06 CBC w/ auto diff MPV fL 9.5 13.4 9.6 FINAL Nicole Ya [place] [facility] , [address] [place] [id number] 0 01/06 CBC w/ auto diff RDW % 11.4 16.1 13.00 FINAL Nicole Ya [place] [facility] , [address] [place] [id number] 0 01/06 CMP Album in g/dL 3.5 5.0 3.9 FINAL Nicole [place] * [place] [facility] [place] [facility] , [address] [place] [id number] 0 01/06 CMP Alkal ine phosp hatas e U/L 36.0 125.0 79 FINAL Nicole Ya * [facility] , [address] [facility] [address] [facility] [id number] 0 01/06 CMP ALT/S GPT U/L 0.0 34.0 24 FINAL Nicole Ya * [facility] , [address] [facility] [address] [facility] [id number] 0 01/06 CMP AST/S GOT U/L 14.0 36.0 33 FINAL Nicole Ya * [facility] , [address] [facility] [address] [facility] [id number] 0 01/06 CMP BUN mg/dL 7.0 17.0 14.0 FINAL Nicole Ya * [facility] , [address] [facility] [address] [facility] [id number] 0 01/06 CMP Calci um mg/dL 8.4 10.2 8.9 FINAL Nicole Ya * [facility] , [address] [facility] [address] [facility] [id number] 0 01/06 CMP Chlor rakan mmol/L 96.0 107.0 109 High FINAL Nicole Ya * [facility] , [address] [facility] [address] [facility] [id number] 0 01/06 CMP CO2 mmol/L 22.0 30.0 [...] [facility] , [address] [facility] [address] [facility] [id number] 0 01/06 CMP Creat inine mg/dL 0.66 1.25 1.00 FINAL Nicole Ya * [facility] , [facility] [address] [id number] 0 01/06 CMP GFR estim ate ml/min /1.73m ^2 60.2 GFR is calculate d using the CKD-EPI equation. FINAL Nicole Ya * [facility] , [facility] [address] [id number] 0 01/06 CMP Gluco se mg/dL 74.0 100.0 88 FINAL Nicole Ya * [facility] , [facility] [address] [id number] 0 01/06 CMP Potas sium mmol/L 3.5 5.1 4.1 FINAL Nicole Ya * [facility] , [facility] [address] [id number] 0 01/06 CMP Sodiu m mmol/L 137.0 145.0 141 FINAL Nicole Ya * [facility] , [facility] [address] [id number] 0 01/06 CMP Bilir ubin, total mg/dL 0.2 1.3 0.8 FINAL Nicole Ya * [facility] , [facility] [address] [id number] 0 01/06 CMP Total prote in g/dL 6.3 8.2 6.2 Low FINAL Nicole Ya * [facility] , [facility] [address] [id number] 0 01/06 PRIOR RESUL T See Report FINAL Nicole Ya [facility], [facility] [address] [facility] [id number] 4 01/06 SOURC E: Periphe ral Blood FINAL Nicole Ya [facility], [facility] [address] [place] [id number] 4 01/06 BCR ABL1/ ABL1 % % 0.000 FINAL Nicole Ya [facility], [facility] [address] [place] [id number] 4 01/06 BCR ABL1/ ABL1 % (IS) % 0.000 FINAL Nicole Ay [facility], [facility] [address] [place] [id number] 4 01/06 INTER PRETA TION see note [...] l informati on, please refer tohttp:// education .[employer]/faq/F AQ72(This link is being provided forinform ational/e ducationa l purposes only.)Ass ay sensitivi ty is at least 4.5-logs below baselineB CR-ABL1 transcrip t levels but is dependent onquantit y and quality of RNA used for testing and thecellul arity of the sample.Th is test was developed and its analytica lperforma nce character istics have been determine dby [facility] , [place], [place].It has not been cleared or approved by the FDA. Thisassay has been validated pursuant to the CLIAregul ations and is used for clinical purposes. Reviewed by Aiden Hui M.D., Ph.D.Staf f Pathologi st FINAL Nicole Ya [facility], [facility] [address] [facility] [id number] 4 01/06 P190 BCR ABL1 Not Detecte d LELIA NEGRETE, [facility] [address] [facility] [id number] 4 01/06 P210 BCR ABL1 Not Detecte d LELIA NEGRETE [facility] [address] [facility] [id number] 4 Medications Date Name Route Dose Frequency [...] MARIO TAM Date Of : 1955 Today's Provider:?Taira Coronado RN, HEAD STRENGTH AND CONDITIONING COACH, MA, AOCN Date of Service:?01/20/2025 Attending Physician:?Nicole Ya (Hematology/Oncology) Referring Provider: ? HEMATOLOGY/ MEDICAL ONCOLOGY FOLLOW UP VISIT Reason for Visit Follow-up right breast cellulitis Assessment 1.?Stage IIA Right breast cancer ???(10/25/2022) treatment intent: Curative??right-sided breast cancer clinically, T1??N1 M0, invasiveductal cancer, ER negative??[very weakly positive], [place] negative, HER2/augustus 3+ ?Treatment intent is curative, [...] ?Lymph node metastatic carcinoma ??? ER negative, [place] negative, HER2/augustus 3+ on??breast ??? ER low +1 to 5%, [place] -0%, HER2/augustus 3+ lymph node 2.?? 12/24/2022: [...] children live??locally-1 son??lives on a farm near [facility]. ??Another son lives about 9 miles away near [place].?? One child lives in [place].?? She is a supportive group of friends.?? 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 Habits:?? Nonsmoker, does not drink ETOH [...] (T1b, N1, M0, G2, ER Status: Negative, [place] Status: Negative, HER-2/augustus Status: Positive) Histopathologic Type: [...] Of : 1955 Today's Provider:?Tiara Coronado RN, HEAD STRENGTH AND CONDITIONING COACH, MA, AOCN Date of Service:?01/06/2025 Attending Physician:?Nicole Ya (Hematology/Oncology) Referring Provider: ? HEMATOLOGY/ MEDICAL ONCOLOGY FOLLOW UP VISIT Reason for Visit Interim visit to evaluate right breast changes Assessment 1.?Stage IIA Right breast cancer ???(10/25/2022) treatment intent: Curative??right-sided breast cancer clinically, T1??N1 M0, invasiveductal cancer, ER negative??[very weakly positive], [place] negative, HER2/augustus 3+ ?Treatment intent is curative, [...] ?Lymph node metastatic carcinoma ??? ER negative, [place] negative, HER2/augustus 3+ on??breast ??? ER low +1 to 5%, [place] -0%, HER2/augustus 3+ lymph node 2.?? 12/24/2022: [...] children live??locally-1 son??lives on a farm near [facility]. ??Another son lives about 9 miles away near [place].?? One child lives in [place].?? She is a supportive group of friends.?? 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 Habits:?? Nonsmoker, does not drink ETOH Vital Signs Blood pressure: 130/88, Pulse: 50, Temperature: 96.4 F, Respirations: 16, O2 sat: 96%, Pain Scale: 1, Height: 66.5 in, Weight: 170.1 lb, BSA: 1.88, BMI: 27.04 kg/m2 Covid-19 vaccine (Night Out) (03/13/2022), Patient declined/rejected; Flu vaccine - Adult [...] (T1b, N1, M0, G2, ER Status: Negative, [place] Status: Negative, HER-2/augustus Status: Positive) Histopathologic Type: [...]
--- OUTSIDE RECORDS SUMMARY | 2025-02-08 13:41 | XMS_ITS ---
Author Name Interface, Z2Wbpjeub lity Address [address] [facility] [address] [address] [facility] Oncology Address [address] [facility] [address] [address] Allergies and Adverse Reactions Medication/Group Name Reaction [...] 03/22/2023 APPOINTMENT TREATMENT 2 HR 03/13/2023 APPOINTMENT MCC FOLLOW UP 20 MIN 03/13/2023 APPOINTMENT LAB [...] 15 MIN 08/23/2021 APPOINTMENT OV 20 MIN 08/23/2021 LABORDER CMP 08/23/2021 LABORDER CBC w/ [...] Visit OV 30 MIN Encounters Date Name 08/23/2021 Acute pharyngitis 08/23/2021 Breast cancer, femal e 08/23/2021 Vicky intertrigo ( disorder) 08/23/2021 Cellulitis of breast (disorder) 08/23/2021 Chronic myeloid leuk emia, disease (disorder) 08/23/2021 Counseling 08/23/2021 Dehydration 08/23/2021 Diarrhea caused by d rug (disorder) 08/23/2021 Drug-induced nausea and vomiting (disorder) 08/23/2021 Drug-induced neutrop enia (disorder) 08/23/2021 Estrogen receptor ne gative status [ER-] 08/23/2021 Hypokalemia (disorde r) 08/23/2021 Limited range of mot ion 08/23/2021 Lower extremity elie a 08/23/2021 Lymphedema 08/23/2021 Muscle weakness (fin ding) 08/23/2021 Neutropenia preventi on 08/23/2021 Personal history of breast cancer 08/23/2021 Right shoulder pain 08/23/2021 Screening status (fi nding) 08/23/2021 Secondary malignancy of lymph nodes 08/23/2021 Thrombocytopenia cau sed by drugs (disorder) 08/23/2021 Vaccination for infl uenza given Immunizations Date [...] Status Ordered By Specimen Source Lab Address 08/23 BCR/A BL1, p210 Resul t see interpr etation FINAL Kennedy Unglaub 08/23 Speci men Type EDTA Whole Blood FINAL Kennedy Unglaub 08/23 Final Diagn osis: SEE COMMENT S [...] all possible fusionfor ms. Please contact the [facility] or[facility] at with questions or if additiona ltesting is required. See the [facility] Laborator iesInterp retive Handbook for [...] its performan ce character isticsdet ermined by [facility] in a manner consisten t with CLIArequi rements. This test has not been cleared or approved bythe U.S. Food and Drug Administr ation.Jane t Performed by:[facility] - [address] [address]Dln Director: Michael Reid M.D. Ph.D.; CLIA# [id number] 2 FINAL Kennedy Unglaub 08/23 CMP Album in g/dL 3.2 5.2 4.4 FINAL Kennedy Jenna Carmonaot a Oncology [facility], [address] [facility] [address] [place] [address] [phone] 0 Phone: () - 08/23 CMP Alkal ine phosp hatas e U/L 46.0 116.0 91 FINAL Kennedy Unglaub [place] [facility], [address] [facility] [phone] 0 Phone: () - 08/23 CMP ALT/S GPT U/L 7.0 40.0 19 FINAL Kennedy muñoz [place] [address] [phone] 0 Phone: () - 08/23 CMP AST/S GOT U/L 13.0 40.0 22 FINAL Kennedy muñoz [place] [address] [phone] 0 Phone: () - 08/23 CMP BUN mg/dL 9.0 23.0 16 FINAL [place] [address] [phone] 0 Phone: () - 08/23 CMP Calci um mg/dL 8.7 10.4 9.8 FINAL Kennedy [place] [address] [phone] 0 Phone: () - 08/23 CMP CO2 [...] hour stability window. FINAL Kennedy Carmona toni [place] [address] [phone] 0 Phone: () - 08/23 CMP Creat inine mg/dL 0.5 1.2 0.99 FINAL Kennedy Carmona toni [place] [address] [phone] 0 Phone: () - 08/23 CMP GFR estim ate ml/min /1.73m ^2 62.3 GFR is calculate d using the CKD-EPI equation. FINAL [place] [address] [phone] 0 Phone: () - 08/23 CMP Gluco se mg/dL 73.0 126.0 100 [facility], [address] [facility] [address] [facility] [phone] 0 Phone: () - 08/23 CMP Potas sium mmol/L 3.5 5.1 4.4 FINAL Kennedy Carmona toni [facility], [address] [facility] [address] [facility] [phone] 0 Phone: () - 08/23 CMP Sodiu m mmol/L 136.0 145.0 144 FINAL [facility], [address] [facility] 100 [facility] [phone] 0 Phone: () - 08/23 CMP Bilir ubin, total mg/dL 0.3 1.2 0.7 FINAL [facility], [address] [facility] [address] [facility] [phone] 0 Phone: () - 08/23 CMP Chlor rakan mmol/L 96.0 114.0 108 FINAL [facility], [address] [facility] [address] [facility] [phone] 0 Phone: () - 08/23 CMP Total prote in g/dL 5.7 8.2 6.5 FINAL [facility], [address] [facility] 100 [facility] [phone] 0 Phone: () - 08/23 CBC w/ auto diff WBC K/uL 3.0 8.9 4.5 FINAL Kennedy Carmona[address] 210 [place] [phone] 0 Phone: () - 08/23 CBC w/ auto diff HGB g/dL 11.3 15.2 13.8 FINAL Kennedy Carmona[address] 210 [place] [phone] 0 Phone: () - 08/23 CBC w/ auto diff PLT K/uL 113.0 364.0 150 FINAL Kennedy West [address] 210 [facility] [phone] 0 Phone: () - 08/23 CBC w/ auto diff Augustus # (ANC) K/uL 1.6 6.6 2.4 FINAL Kennedy Carmonaot a [facility], [address] [place] [address] 210 [facility] [phone] 0 Phone: () - 08/23 CBC w/ auto diff Augustus % % 43.0 74.0 53.6 FINAL Kennedy Carmonaot a [facility], [address] [place] [address] 210 [facility] [phone] 0 Phone: () - 08/23 CBC w/ auto diff IG % % 0.0 0.5 0.2 FINAL Kennedy Carmonaot a [facility], [address] [place] [address] 210 [facility] [phone] 0 Phone: () - 08/23 CBC w/ auto diff IG # K/uL 0.0 0.03 0.01 FINAL Kennedy Carmonaot a [facility], [address] [place] [address] 210 [facility] [phone] 0 Phone: () - 08/23 CBC w/ auto diff LY % % 14.0 41.0 32.2 FINAL Kennedy Carmonaot a [facility], [address] [place] [address] 210 [facility] [phone] 0 Phone: () - 08/23 CBC w/ auto diff MO % % 6.0 15.0 11.3 FINAL Kennedy Carmonaot a [facility], [address] [place] [address] 210 [facility] [phone] 0 Phone: () - 08/23 CBC w/ auto diff EO % % 0.0 7.0 1.8 FINAL Kennedy Jenna Carmonaot a [facility], [address] [place] [address] 210 [facility] [phone] 0 Phone: () - 08/23 CBC w/ auto diff BA % % 0.0 2.0 0.9 FINAL Kennedy Jenna Carmonaot a [facility], [address] [place] [address] 210 [facility] [phone] 0 Phone: () - 08/23 CBC w/ auto diff LY # K/uL 0.4 3.6 1.5 FINAL Kennedy Ungmichaelub [facility] - [place], [address] [place] [address] 210 [place] [phone] 0 Phone: () - 08/23 CBC w/ auto diff MO # K/uL 0.2 1.3 0.5 FINAL Kennedy Ungmichaelub [place] [facility] [place], [address] [place] [address] 210 [place] [phone] 0 Phone: () - 08/23 CBC w/ auto diff EO # K/uL 0.0 0.6 0.1 FINAL Kennedy Ungmichaelub [place] [facility] [place], [address] [place] [address] 210 [place] [phone] 0 Phone: () - 08/23 CBC w/ auto diff BA # K/uL 0.0 0.2 0.0 FINAL Kennedy Doloresub [place] [facility] [place], [address] [place] [address] 210 [place] [phone] 0 Phone: () - 08/23 CBC w/ auto diff NRBC % #/100W BC 0.0 0.2 0.0 FINAL Kennedy Doloresub [facility] [facility] - [place], [address] [place] [address] 210 [place] [phone] 0 Phone: () - 08/23 CBC w/ auto diff RBC M/uL 3.9 5.1 4.34 FINAL Kennedy Doloresub [place] [facility] - [place], [address] [place] [address] 210 [place] [phone] 0 Phone: () - 08/23 CBC w/ auto diff HCT % 35.0 48.0 41.0 FINAL Kennedy Doloresub [place] [facility] - [place], [address] [place] [address] 210 [place] [phone] 0 Phone: () - 08/23 CBC w/ auto diff MCV fL 80.0 104.0 94.5 FINAL Kennedy Ungmichaelub [place] [facility] - [place], [address] [place] [address] 210 [place] [phone] 0 Phone: () - 08/23 CBC w/ auto diff MCH pg 26.0 35.0 31.8 FINAL Kennedy Ungmichaelub [place] [facility] - [place], [address] [place] [address] 210 [facility] [phone] 0 Phone: () - 08/23 CBC w/ auto diff MCHC g/dL 30.0 35.0 33.7 FINAL [facility] [address] [place] [address] 210 [facility] [phone] 0 Phone: () - 08/23 CBC w/ auto diff MPV fL 9.5 13.4 9.5 FINAL Kennedy West [address] 210 [facility] [phone] 0 Phone: () - 08/23 CBC w/ auto diff RDW % 11.4 16.1 12.80 FINAL Kennedy Carmona[address] 210 [facility] [phone] 0 Phone: () - 03/13 CMP Album in g/dL 3.2 5.2 4.5 FINAL Ruiz Raya [place] [address] [phone] 0 Phone: () - 03/13 CMP Alkal ine phosp hatas e U/L 46.0 116.0 103 FINAL [place] [address] [phone] 0 Phone: () - 03/13 CMP ALT/S GPT U/L 7.0 40.0 19 FINAL Ruiz Raya [place] [address] [phone] 0 Phone: () - 03/13 CMP AST/S GOT U/L 13.0 40.0 23 FINAL Ruiz Raya [place] [address] [phone] 0 Phone: () - 03/13 CMP BUN mg/dL 9.0 23.0 13 FINAL Ruiz Raya [place] [address] [phone] 0 Phone: () - 03/13 CMP Calci um mg/dL 8.7 10.4 10.5 High FINAL Ruiz Raya [facility] [address] [phone] 0 Phone: () - 03/13 CMP Chlor rakan mmol/L 96.0 114.0 107 FINAL Ruiz Terrazas [place] [address] [phone] 0 Phone: () - 03/13 CMP CO2 [...] the 96 hour stability window. FINAL [place] [address] [phone] 0 Phone: () - 03/13 CMP Creat inine mg/dL 0.5 1.2 1.25 High FINAL Ruiz Raay [address] [phone] 0 Phone: () - 03/13 CMP GFR estim ate ml/min /1.73m ^2 46.9 Low GFR is calculate d using the CKD-EPI equation. FINAL [place] [address] [phone] 0 Phone: () - 03/13 CMP Gluco se mg/dL 73.0 126.0 111 FINAL Ruiz Raya [place] [address] [phone] 0 Phone: () - 03/13 CMP Potas sium mmol/L 3.5 5.1 4.2 FINAL Ruiz Raya [address] [phone] 0 Phone: () - 03/13 CMP Sodiu m mmol/L 136.0 145.0 144 FINAL Ruiz Raya [place] [address] [phone] 0 Phone: () - 03/13 CMP Bilir ubin, total mg/dL 0.3 1.2 0.8 FINAL [facility], [address] [facility] [facility] [facility] [phone] 0 Phone: () - 03/13 CMP Total prote in g/dL 5.7 8.2 6.7 FINAL Ruiz Raya [facility], [address] [facility] [facility] [phone] 0 Phone: () - 03/13 BCR/A BL1, p210 Resul t see interpr etation FINAL Ruiz Raya 03/13 Speci men Type edta whole blood FINAL Ruiz [facility] [place] [place] 03/13 Final Diagn osis: SEE COMMENT S [...] all possible fusionfor ms. Please contact the [facility] or[facility] at with questions or if additiona ltesting is required. See the [facility] Laborator iesInterp retive Handbook for [...] its performan ce character isticsdet ermined by [facility] in a manner consisten t with CLIArequi rements. This test has not been cleared or approved bythe U.S. Food and Drug Administr ation.Jane t Performed by:[facility] - [address] [address]Mnp Director: Michael Reid M.D. Ph.D.; CLIA# [id number] 2 FINAL Ruiz Raya 03/13 CBC w/ auto diff HGB g/dL 11.3 15.2 14.6 FINAL [facility] [place], [address] [facility] 210 [facility] [phone] 0 Phone: () - 03/13 CBC w/ auto diff Augustus # (ANC) K/uL 1.6 6.6 5.3 FINAL [facility] [place] [address] [place] [address] 210 [facility] [phone] 0 Phone: () - 03/13 CBC w/ auto diff IG % % 0.0 0.5 0.3 FINAL [facility] [place], [address] [place] [address] 210 [place] [phone] 0 Phone: () - 03/13 CBC w/ auto diff IG # K/uL 0.0 0.03 0.02 FINAL [facility] [place], [address] [place] [address] 210 [facility] [phone] 0 Phone: () - 03/13 CBC w/ auto diff MO % % 6.0 15.0 9.4 FINAL [facility] [place], [address] [place] [address] 210 [facility] [phone] 0 Phone: () - 03/13 CBC w/ auto diff WBC K/uL 3.0 8.9 7.7 FINAL [facility] [place], [address] [place] [address] 210 [place] [phone] 0 Phone: () - 03/13 CBC w/ auto diff PLT K/uL 113.0 364.0 160 FINAL [facility] [place], [address] [place] [address] 210 [place] [phone] 0 Phone: () - 03/13 CBC w/ auto diff Augustus % % 43.0 74.0 69.5 FINAL [facility] [place], [address] [place] [address] 210 [place] [phone] 0 Phone: () - 03/13 CBC w/ auto diff LY % % 14.0 41.0 19.5 FINAL [facility] [place], [address] [place] [address] 210 [place] [phone] 0 Phone: () - 03/13 CBC w/ auto diff EO % % 0.0 7.0 0.9 FINAL [facility] [place], [address] [place] [address] 210 [place] [phone] 0 Phone: () - 03/13 CBC w/ auto diff BA % % 0.0 2.0 0.4 FINAL Ruiz muñoz [facility], [address] [place] [address] 210 [facility] [phone] 0 Phone: () - 03/13 CBC w/ auto diff LY # K/uL 0.4 3.6 1.5 FINAL [facility] [place], [address] [place] [address] 210 [facility] [phone] 0 Phone: () - 03/13 CBC w/ auto diff MO # K/uL 0.2 1.3 0.7 FINAL [facility] [place], [address] [place] [address] 210 [facility] [phone] 0 Phone: () - 03/13 CBC w/ auto diff EO # K/uL 0.0 0.6 0.1 FINAL Ru[facility] [place], [address] [place] [address] 210 [facility] [phone] 0 Phone: () - 03/13 CBC w/ auto diff BA # K/uL 0.0 0.2 0.0 FINAL Ru[facility] [place], [address] [place] [address] 210 [facility] [phone] 0 Phone: () - 03/13 CBC w/ auto diff NRBC % #/100W BC 0.0 0.2 0.0 FINAL [facility] [place], [address] [place] [address] 210 [facility] [phone] 0 Phone: () - 03/13 CBC w/ auto diff RBC M/uL 3.9 5.1 4.58 FINAL [facility] [place], [address] [place] [address] 210 [place] [phone] 0 Phone: () - 03/13 CBC w/ auto diff HCT % 35.0 48.0 45.2 FINAL [facility] [place], [address] [place] [address] 210 [place] [phone] 0 Phone: () - 03/13 CBC w/ auto diff MCV fL 80.0 104.0 98.7 FINAL Ruiz muñoz [facility], [address] [facility] 210 [facility] [phone] 0 Phone: () - 03/13 CBC w/ auto diff MCH pg 26.0 35.0 31.9 FINAL Ruiz muñoz [facility], [address] [place] [address] 210 [place] [phone] 0 Phone: () - 03/13 CBC w/ auto diff MCHC g/dL 30.0 35.0 32.3 FINAL Ruiz muñoz [facility], [address] [place] [address] 210 [place] [phone] 0 Phone: () - 03/13 CBC w/ auto diff MPV fL 9.5 13.4 9.7 FINAL Ruiz muñoz [facility], [address] [place] [address] 210 [place] [phone] 0 Phone: () - 03/13 CBC w/ auto diff RDW % 11.4 16.1 12.90 FINAL Ruiz muñoz [facility], [address] [place] [address] 210 [facility] [phone] 0 Phone: () - 09/11 CMP Album in g/dL 3.2 5.2 4.5 FINAL Kennedy [place] [address] [phone] 0 Phone: () - 09/11 CMP Alkal ine phosp hatas e U/L 46.0 116.0 111 FINAL Kennedy [place] [address] [phone] 0 Phone: () - 09/11 CMP ALT/S GPT U/L 7.0 40.0 22 FINAL Kennedy [place] [address] [id number] 0 Phone: () - 09/11 CMP AST/S GOT U/L 13.0 40.0 20 FINAL Kennedy [place] [address] [phone] 0 Phone: () - 09/11 CMP BUN mg/dL 9.0 23.0 10.0 FINAL Kennedy muñoz [facility], [address] [facility] [phone] 0 Phone: () - 09/11 CMP Calci um mg/dL 8.7 10.4 9.7 FINAL Kennedy muñoz [facility], [address] [facility] [phone] 0 Phone: () - 09/11 CMP Chlor rakan mmol/L 96.0 114.0 109 FINAL Kennedy muñoz [facility], [address] [facility] [phone] 0 Phone: () - 09/11 CMP CO2 [...] the 96 hour stability window. FINAL Kennedy muñoz [facility], [address] [phone] 0 Phone: () - 09/11 CMP Creat inine mg/dL 0.5 1.2 1.05 FINAL Kennedy Carmona toni [place] [address] [address] [facility] [address] [place] [address] [phone] 0 Phone: () - 09/11 CMP GFR estim ate ml/min /1.73m ^2 57.6 Low GFR is calculate d using the CKD-EPI equation. FINAL Kennedy muñoz [facility], [address] [facility] [address] [place] [address] [phone] 0 Phone: () - 09/11 CMP Gluco se mg/dL 73.0 126.0 104 FINAL Kennedy Carmona toni [facility], [address] [facility] [phone] 0 Phone: () - 09/11 CMP Potas sium mmol/L 3.5 5.1 4.3 FINAL Kennedy Carmona toni [facility], [address] [facility] [address] [facility] [phone] 0 Phone: () - 09/11 CMP Sodiu m mmol/L 136.0 145.0 145 FINAL Kennedy Carmonaot a Oncology [facility], [address] [facility] 100 [facility] [phone] 0 Phone: () - 09/11 CMP Bilir ubin, total mg/dL 0.3 1.2 0.9 FINAL Kennedy Carmonaot a Oncology [facility], [address] [facility] 100 [facility] [phone] 0 Phone: () - 09/11 CMP Total prote in g/dL 5.7 8.2 6.9 FINAL Kennedy Carmonaot a [facility], [address] [phone] 0 Phone: () - 09/11 PRIOR RESUL T Not Given FINAL Kennedy Bernalub [facility] [address] [place] [id number] 4 09/11 SOUR E: Periphe ral Blood FINAL Kennedy Bernalub [facility] [address] [place] [id number] 4 09/11 BCR ABL1/ ABL1 % % 0.000 FINAL Kennedy West [facility] [address] [place] [id number] 4 09/11 BCR ABL1/ ABL1 % (IS) % 0.000 FINAL Kennedy [place] [facility] [address] [place] [id number] 4 09/11 INTER PRETA TION see note [...] l informati on, please refer tohttp:// education .Jumia/faq/F AQ72(This link is being provided forinform ational/e ducationa l purposes only.)Ass ay sensitivi ty is at least 4.5-logs below baselineB CR-ABL1 transcrip t levels but is dependent onquantit y and quality of RNA used for testing and thecellul arity of the sample.Th is test was developed and its analytica lperforma nce character istics have been determine dby [facility] [place], [place].It has not been cleared or approved by the FDA. Thisassay has been validated pursuant to the CLIAregul ations and is used for clinical purposes. Meera drake, Ph.D., [facility]als[facility] Director, Molecular Oncology FINAL Kennedy Bernalroselyn [facility] [address] [place] [id number] 4 09/11 P190 BCR ABL1 Not Detecte d FINAL Kennedy Rothlaub [facility] [address] [place] [id number] 4 09/11 P210 BCR ABL1 Not Detecte d FINAL Kennedy Bernalub [facility] [address] [place] [id number] 4 09/11 CBC w/ auto diff WBC K/uL 3.0 8.9 5.7 FINAL Kennedy Bernalroselyn [place] [facility] - [address] 210 [facility] [phone] 0 Phone: () - 09/11 CBC w/ auto diff HGB g/dL 11.3 15.2 13.8 FINAL [place]elyn [place] [address] 210 [facility] [phone] 0 Phone: () - 09/11 CBC w/ auto diff PLT K/uL 113.0 364.0 167 FINAL Kennedy Ungmichaelub [place] [facility] [place], [address] [place] [address] 210 [facility] [phone] 0 Phone: () - 09/11 CBC w/ auto diff Augustus # (ANC) K/uL 1.6 6.6 3.7 FINAL Kennedy Unglaub [place] [facility] [place], [address] [place] [address] 210 [facility] [phone] 0 Phone: () - 09/11 CBC w/ auto diff Augustus % % 43.0 74.0 64.2 FINAL [place]aub [place] [facility], [address] [place] [address] 210 [facility] [phone] 0 Phone: () - 09/11 CBC w/ auto diff IG % % 0.0 0.5 0.2 FINAL Kennedy [place]glaub [place] [facility], [address] [place] [address] 210 [facility] [phone] 0 Phone: () - 09/11 CBC w/ auto diff IG # K/uL 0.0 0.03 0.01 FINAL Kennedy [place]glaub [place] [facility], [address] [place] [address] 210 [facility] [phone] 0 Phone: () - 09/11 CBC w/ auto diff LY % % 14.0 41.0 24.0 FINAL Kennedy [place]glaub [place] [facility], [address] [place] [address] 210 [facility] [phone] 0 Phone: () - 09/11 CBC w/ auto diff MO % % 6.0 15.0 9.9 FINAL [place]aub [place] [facility], [address] [place] [address] 210 [facility] [phone] 0 Phone: () - 09/11 CBC w/ auto diff EO % % 0.0 7.0 1.2 FINAL Kennedy Unglaub [place] [facility] [place], [address] [place] [address] 210 [place] [phone] 0 Phone: () - 09/11 CBC w/ auto diff BA % % 0.0 2.0 0.5 FINAL Kennedy Unglaub [place] [facility] - [place], [address] [place] [address] 210 [place] [phone] 0 Phone: () - 09/11 CBC w/ auto diff LY # K/uL 0.4 3.6 1.4 FINAL Kennedy Carmonaot a Oncology - [place], [address] [place] [address] 210 [place] [phone] 0 Phone: () - 09/11 CBC w/ auto diff MO # K/uL 0.2 1.3 0.6 FINAL Kennedyeddie Carmonaot a [facility] [place], [address] [place] [address] 210 [place] [phone] 0 Phone: () - 09/11 CBC w/ auto diff EO # K/uL 0.0 0.6 0.1 FINAL Kennedy Carmonaot a [facility], [address] [place] [address] 210 [place] [phone] 0 Phone: () - 09/11 CBC w/ auto diff BA # K/uL 0.0 0.2 0.0 FINAL Kennedy Carmonaot a [facility], [address] [place] [address] 210 [place] [phone] 0 Phone: () - 09/11 CBC w/ auto diff NRBC % #/100W BC 0.0 0.2 0.0 FINAL Kennedy Carmonaot a [facility], [address] [place] [address] 210 [place] [phone] 0 Phone: () - 09/11 CBC w/ auto diff RBC M/uL 3.9 5.1 4.38 FINAL Kennedy Carmonaot a [facility], [address] [place] [address] 210 [place] [phone] 0 Phone: () - 09/11 CBC w/ auto diff HCT % 35.0 48.0 42.8 FINAL Kennedy Carmonaot a [facility], [address] [place] [address] 210 [place] [phone] 0 Phone: () - 09/11 CBC w/ auto diff MCV fL 80.0 104.0 97.7 FINAL Kennedy Carmonaot a [facility], [address] [place] [address] 210 [place] [phone] 0 Phone: () - 09/11 CBC w/ auto diff MCH pg 26.0 35.0 31.5 FINAL Kenneyd Carmonaot a Oncology [facility], [address] [place] [address] 210 [place] [phone] 0 Phone: () - 09/11 CBC w/ auto diff MCHC g/dL 30.0 35.0 32.2 FINAL Kennedy Carmonaot a [address] 210 [place] [phone] 0 Phone: () - 09/11 CBC w/ auto diff MPV fL 9.5 13.4 9.3 Low FINAL Kennedy West [address] 210 [place] [phone] 0 Phone: () - 09/11 CBC w/ auto diff RDW % 11.4 16.1 12.70 FINAL Kennedy Carmona[address] [place] [phone] 0 Phone: () - 11/16 iSTAT creat inine panel Creat inine , iSTAT mg/dl 0.6 1.3 0.9 FINAL Nicole Ya Mathewdamaris a [facility] - [place], [address] [facility] [place] [phone] 0 Phone: () - 11/16 iSTAT creat inine panel GFR estim ate ml/min /1.73m ^2 69.3 GFR is calculate d using the CKD-EPI equation. FINAL Nicole Felton Mathewot a [facility] - [place], [address] [place] [id number] 0 Phone: () - 11/16 CBC w/ auto diff WBC K/uL 3.0 8.9 7.6 FINAL Nicole Felton Mathe[facility]ot [facility] - [place], [address] [place] [phone] 0 Phone: () - 11/16 CBC w/ auto diff HGB g/dL 11.3 15.2 13.4 FINAL Nicole Ya Mathewdamaris [facility] - [place], [address] [place] [phone] 0 Phone: () - 11/16 CBC w/ auto diff PLT K/uL 113.0 364.0 162 FINAL Nicole Carmonaot [facility] - [place], [address] [place] [id number] 0 Phone: () - 11/16 CBC w/ auto diff Augustus # (ANC) K/uL 1.6 6.6 6.7 High FINAL Nicole Carmonaot a [facility] - [place], [address] [place] [phone] 0 Phone: () - 11/16 CBC w/ auto diff Augustus % % 43.0 74.0 88.7 High FINAL Nicole Carmonaot a [facility] - [place], [address] [place] [phone] 0 Phone: () - 11/16 CBC w/ auto diff IG % % 0.0 0.5 0.7 High FINAL Nicole Terrazas [facility] - [place], [address] [place] [phone] 0 Phone: () - 11/16 CBC w/ auto diff IG # K/uL 0.0 0.03 0.05 High FINAL Nicole Terrazas [facility] - [place], [address] [place] [phone] 0 Phone: () - 11/16 CBC w/ auto diff LY % % 14.0 41.0 8.8 Low FINAL Nicole Terrazas [facility] - [place], [address] [place] [id number] 0 Phone: () - 11/16 CBC w/ auto diff MO % % 6.0 15.0 1.8 Low FINAL Nicole Carmonaot a [facility] - [place], [address] [place] [phone] 0 Phone: () - 11/16 CBC w/ auto diff EO % % 0.0 7.0 0.0 FINAL Nicole Carmonaot [facility] - [place], [address] [place] [phone] 0 Phone: () - 11/16 CBC w/ auto diff BA % % 0.0 2.0 0.0 FINAL Nicole Carmonaot [facility] - [place], [address] [place] [phone] 0 Phone: () - 11/16 CBC w/ auto diff LY # K/uL 0.4 3.6 0.7 FINAL Nicole Carmonaot [facility] - [place], [address] [place] [phone] 0 Phone: () - 11/16 CBC w/ auto diff MO # K/uL 0.2 1.3 0.1 Low FINAL Nicole Carmonaot [facility] - [place], [address] [place] [id number] 0 Phone: () - 11/16 CBC w/ auto diff EO # K/uL 0.0 0.6 0.0 FINAL Nicole Carmonaot [facility] - [place], [address] [place] [phone] 0 Phone: () - 11/16 CBC w/ auto diff BA # K/uL 0.0 0.2 0.0 FINAL Nicole Terrazas [facility] - [place], [address] [place] [id number] 0 Phone: () - 11/16 CBC w/ auto diff NRBC % #/100W BC 0.0 0.2 0.0 FINAL Nicole Carmonaot [facility] - [place], [address] [place] [phone] 0 Phone: () - 11/16 CBC w/ auto diff RBC M/uL 3.9 5.1 4.16 FINAL Nicole Carmonaot [facility] - [place], [address] [place] [id number] 0 Phone: () - 11/16 CBC w/ auto diff HCT % 35.0 48.0 39.7 FINAL Nicole muñoz [facility] - [place], [address] [facility] [address] [place] [phone] 0 Phone: () - 11/16 CBC w/ auto diff MCV fL 80.0 104.0 95.4 FINAL Nicole muñoz [facility] - [place], [address] [facility] [address] [place] [phone] 0 Phone: () - 11/16 CBC w/ auto diff MCH pg 26.0 35.0 32.2 FINAL Nicole muñoz [facility] - [place], [address] [facility] [address] [place] [phone] 0 Phone: () - 11/16 CBC w/ auto diff MCHC g/dL 30.0 35.0 33.8 FINAL Nicole muñoz [facility] - [place], [address] [facility] [address] [place] [id number] 0 Phone: () - 11/16 CBC w/ auto diff MPV fL 9.5 13.4 9.3 Low FINAL Nicole muñoz [facility] - [place], [address] [facility] [address] [place] [id number] 0 Phone: () - 11/16 CBC w/ auto diff RDW % 11.4 16.1 11.90 FINAL Nicole muñoz [facility] - [place], [address] [facility] [address] [place] [id number] 0 Phone: () - 11/16 CMP Album in g/dL 3.2 5.2 4.5 FINAL Nicole Carmonadamaris muñoz [facility] - [place], [address] [place] [phone] 0 Phone: () - 11/16 CMP Alkal ine phosp hatas e U/L 46.0 116.0 91 FINAL Nicole Ya Mathewdamaris muñoz [facility] - [place], [address] [place] [id number] 0 Phone: () - 11/16 CMP ALT/S GPT U/L 7.0 40.0 15 [facility] [address] [facility] [address] [phone] 0 Phone: () - 11/16 CMP AST/S GOT U/L 13.0 40.0 18 FINAL Nicole Terrazas [place] [address] [facility] [address] [id number] 0 Phone: () - 11/16 CMP BUN mg/dL 9.0 23.0 16.0 FINAL [place] [address] [id number] 0 Phone: () - 11/16 CMP Calci um mg/dL 8.7 10.4 9.8 FINAL [place] [address] [id number] 0 Phone: () - 11/16 CMP Chlor rakan mmol/L 96.0 114.0 109 FINAL [place] [address] [id number] 0 Phone: () - 11/16 CMP CO2 [...] the 96 hour stability window. FINAL [facility], [facility] [address] [phone] 0 Phone: () - 11/16 CMP Creat inine mg/dL 0.5 1.2 0.88 FINAL Nicoledarius Ya [place] [address] [phone] 0 Phone: () - 11/16 CMP GFR estim ate ml/min /1.73m ^2 71.2 GFR is calculate d using the CKD-EPI equation. FINAL [place] [address] [id number] 0 Phone: () - 11/16 CMP Gluco se mg/dL 73.0 126.0 152 High FINAL Nicole [place] [address] [id number] 0 Phone: () - 11/16 CMP Potas sium mmol/L 3.5 5.1 4.2 FINAL Nicole [place] [address] [id number] 0 Phone: () - 11/16 CMP Sodiu m mmol/L 136.0 145.0 142 FINAL Nicole [place] [address] [id number] 0 Phone: () - 11/16 CMP Bilir ubin, total mg/dL 0.3 1.2 0.6 FINAL Nicole [place] [address] [id number] 0 Phone: () - 11/16 CMP Total prote in g/dL 5.7 8.2 6.8 FINAL Nicole [place] [address] [id number] 0 Phone: () - 11/21 CMP Album in g/dL 3.2 5.2 3.9 FINAL Nicole [place] [address] [id number] 0 Phone: () - 11/21 CMP Alkal ine phosp hatas e U/L 46.0 116.0 90 FINAL Nicoledarius [place] [address] [id number] 0 Phone: () - 11/21 CMP ALT/S GPT U/L 7.0 40.0 37 FINAL Nicole [place] [address] [id number] 0 Phone: () - 11/21 CMP AST/S GOT U/L 13.0 40.0 31 FINAL Nicoledarius [place] [address] [facility] [address] [phone] 0 Phone: () - 11/21 CMP BUN mg/dL 9.0 23.0 13.0 FINAL Nicole Terrazas [place] [address] [facility] [address] [facility] [id number] 0 Phone: () - 11/21 CMP Calci um mg/dL 8.7 10.4 8.9 FINAL [facility] [address] [facility] 100 [facility] [id number] 0 Phone: () - 11/21 CMP Chlor rakan mmol/L 96.0 114.0 107 FINAL [place] [address] [address] [facility] 100 [facility] [id number] 0 Phone: () - 11/21 CMP CO2 [...] the 96 hour stability window. FINAL Nicole [place] [address] [address] [facility] 100 [facility] [phone] 0 Phone: () - 11/21 CMP Creat inine mg/dL 0.5 1.2 0.83 FINAL Nicole [place] [address] [address] [facility] 100 [facility] [id number] 0 Phone: () - 11/21 CMP GFR estim ate ml/min /1.73m ^2 76.3 GFR is calculate d using the CKD-EPI equation. FINAL Nicole Terrazas [facility], [facility] [address] [facility] [address] [facility] [id number] 0 Phone: () - 11/21 CMP Gluco se mg/dL 73.0 126.0 99 FINAL [facility], [address] [facility] 100 [facility] [id number] 0 Phone: () - 11/21 CMP Potas sium mmol/L 3.5 5.1 3.8 FINAL [facility], [address] [facility] [id number] 0 Phone: () - 11/21 CMP Sodiu m mmol/L 136.0 145.0 142 FINAL Nicole muñoz [facility], [address] [place] [id number] 0 Phone: () - 11/21 CMP Bilir ubin, total mg/dL 0.3 1.2 1.3 High FINAL Nicole muñoz [facility], [address] [facility] [phone] 0 Phone: () - 11/21 CMP Total prote in g/dL 5.7 8.2 6.0 FINAL Nicole muñoz [facility], [address] [facility] [address] [place] [id number] 0 Phone: () - 11/21 CBC w/ auto diff WBC K/uL 3.0 8.9 1.0 Low FINAL Nicole muñoz [facility] - [place], [address] [place] [address] [address] [facility] [place] [id number] 0 Phone: () - 11/21 CBC w/ auto diff HGB g/dL 11.3 15.2 13.2 FINAL Nicole muñoz [facility] - [place], [address] [place] [address] [address] [facility] [place] [id number] 0 Phone: () - 11/21 CBC w/ auto diff PLT K/uL 113.0 364.0 47 Critica l hematol ogy result obtaine d Criti todd Low FINAL Nicole muñoz [facility] - [place], [address] [place] [address] [address] [place] [id number] 0 Phone: () - 11/21 CBC w/ auto diff Augustus # (ANC) K/uL 1.6 6.6 0.4 Critica l hematol ogy result obtaine d Criti todd Low FINAL Nicole Terrazas a [facility] - [place], [address] [facility] [address] [place] [id number] 0 Phone: () - 11/21 CBC w/ auto diff Augustus % % 43.0 74.0 34.7 Low FINAL Nicole Carmonaot a [facility] - [place], [address] [place] [id number] 0 Phone: () - 11/21 CBC w/ auto diff IG % % 0.0 0.5 1.9 High FINAL Nicole Carmonaot a [facility] - [place], [address] [place] [id number] 0 Phone: () - 11/21 CBC w/ auto diff IG # K/uL 0.0 0.03 0.02 FINAL Nicole Carmonaot a [facility] - [place], [address] [place] [id number] 0 Phone: () - 11/21 CBC w/ auto diff LY % % 14.0 41.0 56.7 High FINAL Nicole Carmonaot a [facility] - [place], [address] [place] [id number] 0 Phone: () - 11/21 CBC w/ auto diff MO % % 6.0 15.0 1.9 Low FINAL Nicole Terrazas [facility] - [place], [address] [place] [id number] 0 Phone: () - 11/21 CBC w/ auto diff EO % % 0.0 7.0 1.9 FINAL Nicole Terrazas [facility] - [place], [address] [place] [id number] 0 Phone: () - 11/21 CBC w/ auto diff BA % % 0.0 2.0 2.9 High FINAL Nicole Carmonaot a [facility] - [place], [address] [place] [id number] 0 Phone: () - 11/21 CBC w/ auto diff LY # K/uL 0.4 3.6 0.6 FINAL Nicole Carmonaot a [facility] - [place], [address] [place] [id number] 0 Phone: () - 11/21 CBC w/ auto diff MO # K/uL 0.2 1.3 0.0 Low FINAL Nicole muñoz [facility] - [place], [address] [place] [id number] 0 Phone: () - 11/21 CBC w/ auto diff EO # K/uL 0.0 0.6 0.0 FINAL Nicole muñoz [facility] - [place], [address] [place] [id number] 0 Phone: () - 11/21 CBC w/ auto diff BA # K/uL 0.0 0.2 0.0 FINAL Nicole muñoz [facility] - [place], [address] [place] [id number] 0 Phone: () - 11/21 CBC w/ auto diff NRBC % #/100W BC 0.0 0.2 0.0 FINAL Nicole muñoz [facility] - [place], [address] [place] [id number] 0 Phone: () - 11/21 CBC w/ auto diff RBC M/uL 3.9 5.1 4.07 FINAL Niocle muñoz [facility] - [place], [address] [place] [id number] 0 Phone: () - 11/21 CBC w/ auto diff HCT % 35.0 48.0 38.4 FINAL Nicole muñoz [facility] - [place], [address] [place] [id number] 0 Phone: () - 11/21 CBC w/ auto diff MCV fL 80.0 104.0 94.3 FINAL Nicole muñoz [facility] - [place], [address] [place] [id number] 0 Phone: () - 11/21 CBC w/ auto diff MCH pg 26.0 35.0 32.4 FINAL Nicole muñoz [facility] - [place], [address] [place] [id number] 0 Phone: () - 11/21 CBC w/ auto diff MCHC g/dL 30.0 35.0 34.4 FINAL Nicole Ya Mathewdamaris toni [facility] - [place], [address] [place] [id number] 0 Phone: () - 11/21 CBC w/ auto diff MPV fL 9.5 13.4 10.1 FINAL Nicole Ya Mathewdamaris muñoz [facility] - [place], [address] [place] [id number] 0 Phone: () - 11/21 CBC w/ auto diff RDW % 11.4 16.1 11.80 FINAL Nicole muñoz [facility] - [place], [address] [place] [id number] 0 Phone: () - 11/21 CBC w/ auto diff Auto CBC comme nts Slide review to follow FINAL Nicole muñoz [facility] - [place], [address] [place] [phone] 0 Phone: () - 11/21 Smear revie w panel CBC Smear revie w comme nts Consist ent with reporte d results Abnorma l Lymphs present Large and-or giant platele ts present FINAL Nicole Ya Mathewdamaris muñoz [facility] - [place], [address] [place] [id number] 0 Phone: () - 11/27 iSTAT Na+/K +/Cl- panel Sodiu m, iSTAT mmol/L 138.0 146.0 137 Low Reference range adjusted 0 with implement ation of I-Stat 8+ cartridge . FINAL Nicole Ya Mathewdamaris muñoz [facility] - [place], [address] [place] [id number] 0 Phone: () - 11/27 iSTAT Na+/K +/Cl- panel Potas sium, iSTAT mmol/L 3.5 4.9 3.4 Low Reference range adjusted 0 with implement ation of I-Stat 8+ cartridge . FINAL Nicole muñoz [facility] - [place], [address] [place] [phone] 0 Phone: () - 11/27 iSTAT Na+/K +/Cl- panel Chlor rakan, iSTAT mmol/L 98.0 109.0 99 Reference range adjusted 0 with implement ation of I-Stat 8+ cartridge . FINAL Nicole muñoz [facility] - [place], [address] [place] [id number] 0 Phone: () - 11/27 iSTAT creat inine panel Creat inine , iSTAT mg/dl 0.6 1.3 1.1 FINAL Nicole muñoz [facility] - [place], [address] [place] [id number] 0 Phone: () - 11/27 iSTAT creat inine panel GFR estim ate ml/min /1.73m ^2 54.4 Low GFR is calculate d using the CKD-EPI equation. FINAL Nicole muñoz [facility] - [place], [address] [place] [id number] 0 Phone: () - 11/27 CBC w/ auto diff WBC K/uL 3.0 8.9 32.0 High FINAL Nicole muñoz [facility] - [place], [address] [place] [id number] 0 Phone: () - 11/27 CBC w/ auto diff HGB g/dL 11.3 15.2 13.3 FINAL Nicole muñoz [facility] - [place], [address] [place] [id number] 0 Phone: () - 11/27 CBC w/ auto diff PLT K/uL 113.0 364.0 87 Low FINAL Nicole muñoz [facility] - [place], [address] [place] [id number] 0 Phone: () - 11/27 CBC w/ auto diff Augustus # (ANC) K/uL 1.6 6.6 25.7 High FINAL Nicole Carmonaot a [facility] - [place], [address] [place] [id number] 0 Phone: () - 11/27 CBC w/ auto diff Augustus % % 43.0 74.0 80.5 High FINAL Nicole Carmonaot a [facility] - [place], [address] [place] [id number] 0 Phone: () - 11/27 CBC w/ auto diff IG % % 0.0 0.5 7.6 High FINAL Nicole Carmonaot a [facility] - [place], [address] [place] [id number] 0 Phone: () - 11/27 CBC w/ auto diff IG # K/uL 0.0 0.03 2.44 High FINAL Nicole Carmonaot a [facility] - [place], [address] [place] [id number] 0 Phone: () - 11/27 CBC w/ auto diff LY % % 14.0 41.0 5.8 Low FINAL Nicole Carmonaot a [facility] - [place], [address] [place] [id number] 0 Phone: () - 11/27 CBC w/ auto diff MO % % 6.0 15.0 6.1 FINAL Nicole Carmonaot a [facility] - [place], [address] [place] [id number] 0 Phone: () - 11/27 CBC w/ auto diff EO % % 0.0 7.0 0.0 FINAL Nicole Carmonaot a [facility] - [place], [address] [place] [id number] 0 Phone: () - 11/27 CBC w/ auto diff BA % % 0.0 2.0 0.0 FINAL Nicole Carmonaot a [facility] - [place], [address] [place] [id number] 0 Phone: () - 11/27 CBC w/ auto diff LY # K/uL 0.4 3.6 1.8 FINAL Nicole Ya Nini muñoz [facility] - [place], [address] [place] [id number] 0 Phone: () - 11/27 CBC w/ auto diff MO # K/uL 0.2 1.3 2.0 High FINAL Nicole Ya Nini a [facility] - [place], [address] [place] [id number] 0 Phone: () - 11/27 CBC w/ auto diff EO # K/uL 0.0 0.6 0.0 FINAL Nicole Felton Nini muñoz [facility] - [place], [address] [place] [id number] 0 Phone: () - 11/27 CBC w/ auto diff BA # K/uL 0.0 0.2 0.0 FINAL Nicole Felton Mathewdamaris toni [facility] - [place], [address] [place] [id number] 0 Phone: () - 11/27 CBC w/ auto diff NRBC % #/100W BC 0.0 0.2 0.3 High FINAL Nicole Felton Nini muñoz [facility] - [place], [address] [place] [id number] 0 Phone: () - 11/27 CBC w/ auto diff RBC M/uL 3.9 5.1 4.09 FINAL Nicole Felton Nini muñoz [facility] - [place], [address] [place] [id number] 0 Phone: () - 11/27 CBC w/ auto diff HCT % 35.0 48.0 38.0 FINAL Nicole Ya Nini muñoz [facility] - [place], [address] [place] [id number] 0 Phone: () - 11/27 CBC w/ auto diff MCV fL 80.0 104.0 92.9 FINAL Nicole Ya Mathewdamaris muñoz [facility] - [place], [address] [place] [id number] 0 Phone: () - 11/27 CBC w/ auto diff MCH pg 26.0 35.0 32.5 FINAL Nicole muñoz [facility] - [place], [address] [facility] [address] [place] [id number] 0 Phone: () - 11/27 CBC w/ auto diff MCHC g/dL 30.0 35.0 35.0 FINAL Nicole muñoz [facility] - [place], [address] [facility] [address] [place] [id number] 0 Phone: () - 11/27 CBC w/ auto diff MPV fL 9.5 13.4 9.1 Low FINAL Nicole muñoz [facility] - [place], [address] [facility] [address] [place] [id number] 0 Phone: () - 11/27 CBC w/ auto diff RDW % 11.4 16.1 11.60 FINAL Nicole muñoz [facility] - [place], [address] [facility] [address] [place] [id number] 0 Phone: () - 12/07 CMP Album in g/dL 3.2 5.2 3.9 FINAL [facility]ara [facility], [address] [facility] [address] [place] [address] [phone] 0 Phone: () - 12/07 CMP Alkal ine phosp hatas e U/L 46.0 116.0 97 FINAL Tiara [facility], [facility] [address] [place] [address] [phone] 0 Phone: () - 12/07 CMP ALT/S GPT U/L 7.0 40.0 27 FINAL Tiara [facility] [address] [facility] [address] [place] [id number] 0 Phone: () - 12/07 CMP AST/S GOT U/L 13.0 40.0 17 FINAL Tiara [facility], [address] [place] [address] [phone] 0 Phone: () - 12/07 CMP BUN mg/dL 9.0 23.0 12.0 FINAL Tiara [facility], [address] [facility] 100 [facility] [id number] 0 Phone: () - 12/07 CMP Calci um mg/dL 8.7 10.4 9.8 FINAL Tiara [facility] [address] [facility] 100 [facility] [id number] 0 Phone: () - 12/07 CMP Chlor rakan mmol/L 96.0 114.0 110 FINAL [place] [address] [facility] [address] [facility] [id number] 0 Phone: () - 12/07 CMP CO2 [...] 96 hour stability window. FINAL [place] [address] [address] [facility] [address] [place] [address] [id number] 0 Phone: () - 12/07 CMP Creat inine mg/dL 0.5 1.2 0.89 FINAL [place] [address] [id number] 0 Phone: () - 12/07 CMP GFR estim ate ml/min /1.73m ^2 70.2 GFR is calculate d using the CKD-EPI equation. FINAL [facility], [facility] [address] [facility] [address] [phone] 0 Phone: () - 12/07 CMP Gluco se mg/dL 73.0 126.0 152 High FINAL [place] [address] [address] [facility] [address] [facility] [id number] 0 Phone: () - 12/07 CMP Potas sium mmol/L 3.5 5.1 4.3 FINAL [place] [address] [address] [facility] [address] [facility] [id number] 0 Phone: () - 12/07 CMP Sodiu m mmol/L 136.0 145.0 145 FINAL Tiara muñoz [facility], [address] [facility] [id number] 0 Phone: () - 12/07 CMP Bilir ubin, total mg/dL 0.3 1.2 0.6 FINAL Tiara muñoz [facility], [address] [facility] [id number] 0 Phone: () - 12/07 CMP Total prote in g/dL 5.7 8.2 5.9 FINAL Tiara muñoz [facility], [address] [facility] [address] [facility] [id number] 0 Phone: () - 12/07 iSTAT creat inine panel Creat inine , iSTAT mg/dl 0.6 1.3 0.8 FINAL Tiara muñoz [facility] - [place] , [address] [place] [address] d [address] [facility] [place] [id number] 0 Phone: () - 12/07 iSTAT creat inine panel GFR estim ate ml/min /1.73m ^2 79.8 GFR is calculate d using the CKD-EPI equation. FINAL Tiara muñoz [facility] - [place] , [address] [place] [address] d [address] [facility] [place] [id number] 0 Phone: () - 12/07 CBC w/ auto diff WBC K/uL 3.0 8.9 17.1 High FINAL Tiara muñoz [facility] - [place] , [address] [place] [address] d [address] [facility] [place] [id number] 0 Phone: () - 12/07 CBC w/ auto diff HGB g/dL 11.3 15.2 10.9 Low FINAL Tiara muñoz [facility] - [place] , [address] [place] [address] [facility] [address] [facility] [place] [id number] 0 Phone: () - 12/07 CBC w/ auto diff PLT K/uL 113.0 364.0 157 FINAL Tiara muñoz [facility] - [place], [address] [place] [id number] 0 Phone: () - 12/07 CBC w/ auto diff Augustus # (ANC) K/uL 1.6 6.6 15.3 High FINAL Tiara Carmonaot a [facility] - [place], [address] [place] [id number] 0 Phone: () - 12/07 CBC w/ auto diff Augustus % % 43.0 74.0 89.4 High FINAL Tiara Carmonaot a [facility] - [place], [address] [place] [phone] 0 Phone: () - 12/07 CBC w/ auto diff IG % % 0.0 0.5 1.8 High FINAL Tiara Carmonaot a [facility] - [place], [address] [place] [id number] 0 Phone: () - 12/07 CBC w/ auto diff IG # K/uL 0.0 0.03 0.30 High FINAL Tiara Carmonaot [facility] - [place], [address] [place] [id number] 0 Phone: () - 12/07 CBC w/ auto diff LY % % 14.0 41.0 5.2 Low FINAL Tiara Carmonaot [facility] - [place], [address] [place] [id number] 0 Phone: () - 12/07 CBC w/ auto diff MO % % 6.0 15.0 3.5 Low FINAL Tiara Carmonaot [facility] - [place], [address] [place] [id number] 0 Phone: () - 12/07 CBC w/ auto diff EO % % 0.0 7.0 0.0 FINAL Tiara Carmonaot [facility] - [place], [address] [place] [id number] 0 Phone: () - 12/07 CBC w/ auto diff BA % % 0.0 2.0 0.1 FINAL Tiara Carmonaot [facility] - [place], [address] [place] [id number] 0 Phone: () - 12/07 CBC w/ auto diff LY # K/uL 0.4 3.6 0.9 FINAL Tiara Carmonaot a [facility] - [place], [address] [place] [id number] 0 Phone: () - 12/07 CBC w/ auto diff MO # K/uL 0.2 1.3 0.6 FINAL Tiara Carmonaot [facility] - [place], [address] [place] [id number] 0 Phone: () - 12/07 CBC w/ auto diff EO # K/uL 0.0 0.6 0.0 FINAL Tiara Carmonaot [facility] - [place], [address] [address] [place] [id number] 0 Phone: () - 12/07 CBC w/ auto diff BA # K/uL 0.0 0.2 0.0 FINAL [facility] - [place], [address] [place] [id number] 0 Phone: () - 12/07 CBC w/ auto diff NRBC % #/100W BC 0.0 0.2 0.0 FINAL [facility] - [place], [address] [place] [id number] 0 Phone: () - 12/07 CBC w/ auto diff RBC M/uL 3.9 5.1 3.37 Low FINAL [facility] - [place], [address] [place] [id number] 0 Phone: () - 12/07 CBC w/ auto diff HCT % 35.0 48.0 32.8 Low FINAL [facility] - [place], [address] [place] [id number] 0 Phone: () - 12/07 CBC w/ auto diff MCV fL 80.0 104.0 97.3 FINAL [facility] - [place], [address] [place] [id number] 0 Phone: () - 12/07 CBC w/ auto diff MCH pg 26.0 35.0 32.3 FINAL [facility] - [place], [address] [place] [id number] 0 Phone: () - 12/07 CBC w/ auto diff MCHC g/dL 30.0 35.0 33.2 FINAL Tiara Carmonaot toni [facility] - [place], [address] [place] [id number] 0 Phone: () - 12/07 CBC w/ auto diff MPV fL 9.5 13.4 8.9 Low FINAL Tiara muñoz [facility] - [place], [address] [place] [id number] 0 Phone: () - 12/07 CBC w/ auto diff RDW % 11.4 16.1 12.70 FINAL Tiara muñoz [facility] - [place], [address] [place] [id number] 0 Phone: () - 12/12 iSTAT Na+/K +/Cl- panel Sodiu m, iSTAT mmol/L 138.0 146.0 137 Low Reference range adjusted 0 with implement ation of I-Stat 8+ cartridge . FINAL Nicole Terrazas [facility] - [place], [address] [place] [id number] 0 Phone: () - 12/12 iSTAT Na+/K +/Cl- panel Potas sium, iSTAT mmol/L 3.5 4.9 3.9 Reference range adjusted 0 with implement ation of I-Stat 8+ cartridge . FINAL Nicole [facility] - [place], [address] [place] [id number] 0 Phone: () - 12/12 iSTAT Na+/K +/Cl- panel Chlor rakan, iSTAT mmol/L 98.0 109.0 99 Reference range adjusted 0 with implement ation of I-Stat 8+ cartridge . FINAL Nicole Terrazas [facility] - [place], [address] [place] [phone] 0 Phone: () - 12/12 CBC w/ auto diff WBC K/uL 3.0 8.9 2.0 Low FINAL Nicole muñoz [facility] - [place], [address] [place] [id number] 0 Phone: () - 12/12 CBC w/ auto diff HGB g/dL 11.3 15.2 11.2 Low FINAL Nicole muñoz [facility] - [place], [address] [place] [id number] 0 Phone: () - 12/12 CBC w/ auto diff PLT K/uL 113.0 364.0 27 Critica l hematol ogy result obtaine d Criti todd Low FINAL Nicole muñoz [facility] - [place], [address] [place] [id number] 0 Phone: () - 12/12 CBC w/ auto diff Plate let, immat ure, fract ion % 0.9 11.2 7.0 FINAL Nicole Terrazas [facility] - [place], [address] [place] [id number] 0 Phone: () - 12/12 CBC w/ auto diff Augustus # (ANC) K/uL 1.6 6.6 1.1 Low FINAL Nicole muñoz [facility] - [place], [address] [place] [id number] 0 Phone: () - 12/12 CBC w/ auto diff Augustus % % 43.0 74.0 56.0 FINAL Nicole Ya Nini muñoz [facility] - [place], [address] [place] [id number] 0 Phone: () - 12/12 CBC w/ auto diff IG % % 0.0 0.5 3.0 High FINAL Nicole Ya Nini a [facility] - [place], [address] [place] [id number] 0 Phone: () - 12/12 CBC w/ auto diff IG # K/uL 0.0 0.03 0.06 High FINAL Nicole Ya Mathewot [facility] - [place], [address] [place] [id number] 0 Phone: () - 12/12 CBC w/ auto diff LY % % 14.0 41.0 35.5 FINAL Nicole Felton Mathewot [facility] - [place], [address] [place] [id number] 0 Phone: () - 12/12 CBC w/ auto diff MO % % 6.0 15.0 2.0 Low FINAL Nicole Felton Nini a [facility] - [place], [address] [place] [id number] 0 Phone: () - 12/12 CBC w/ auto diff EO % % 0.0 7.0 1.0 FINAL Nicole Felton Nini [facility] - [place], [address] [place] [id number] 0 Phone: () - 12/12 CBC w/ auto diff BA % % 0.0 2.0 2.5 High FINAL Nicole Felton Nini [facility] - [place], [address] [place] [id number] 0 Phone: () - 12/12 CBC w/ auto diff LY # K/uL 0.4 3.6 0.7 FINAL Nicole Felton Nini [facility] - [place], [address] [place] [id number] 0 Phone: () - 12/12 CBC w/ auto diff MO # K/uL 0.2 1.3 0.0 Low FINAL Nicole Felton [place] [facility] - [place], [address] [place] [id number] 0 Phone: () - 12/12 CBC w/ auto diff EO # K/uL 0.0 0.6 0.0 FINAL Nicole [facility] - [place], [address] [place] [id number] 0 Phone: () - 12/12 CBC w/ auto diff BA # K/uL 0.0 0.2 0.1 FINAL Nicole [facility] - [place], [address] [place] [id number] 0 Phone: () - 12/12 CBC w/ auto diff NRBC % #/100W BC 0.0 0.2 1.0 High FINAL Nicole Terrazas [facility] - [place], [address] [place] [id number] 0 Phone: () - 12/12 CBC w/ auto diff RBC M/uL 3.9 5.1 3.51 Low FINAL Nicole Terrazas [facility] - [place], [address] [place] [id number] 0 Phone: () - 12/12 CBC w/ auto diff HCT % 35.0 48.0 33.7 Low FINAL Nicole muñoz [facility] - [place], [address] [place] [id number] 0 Phone: () - 12/12 CBC w/ auto diff MCV fL 80.0 104.0 96.0 FINAL Nicole Terrazas [facility] - [place], [address] [place] [id number] 0 Phone: () - 12/12 CBC w/ auto diff MCH pg 26.0 35.0 31.9 FINAL Nicole [facility] - [place], [address] [place] [id number] 0 Phone: () - 12/12 CBC w/ auto diff MCHC g/dL 30.0 35.0 33.2 FINAL Nicole [facility] - [place], [address] [place] [id number] 0 Phone: () - 12/12 CBC w/ auto diff MPV fL 9.5 13.4 11.1 FINAL Nicole [facility] - [place], [address] [place] [id number] 0 Phone: () - 12/12 CBC w/ auto diff RDW % 11.4 16.1 13.00 FINAL Nicole [facility] - [place], [address] [place] [id number] 0 Phone: () - 12/27 CBC w/ auto diff WBC K/uL 3.0 8.9 6.3 FINAL Nicole [facility] - [place], [address] [place] [id number] 0 Phone: () - 12/27 CBC w/ auto diff HGB g/dL 11.3 15.2 10.2 Low FINAL Nicole [facility] - [place], [address] [place] [id number] 0 Phone: () - 12/27 CBC w/ auto diff PLT K/uL 113.0 364.0 108 Low FINAL Nicole muñoz [facility] - [place], [address] [place] [id number] 0 Phone: () - 12/27 CBC w/ auto diff Augustus # (ANC) K/uL 1.6 6.6 3.8 FINAL Nicole [facility] - [place], [address] [place] [id number] 0 Phone: () - 12/27 CBC w/ auto diff Augustus % % 43.0 74.0 60.1 FINAL Nicole [facility] - [place], [address] [place] [id number] 0 Phone: () - 12/27 CBC w/ auto diff IG % % 0.0 0.5 0.6 High FINAL Nicole [facility] - [place], [address] [place] [id number] 0 Phone: () - 12/27 CBC w/ auto diff IG # K/uL 0.0 0.03 0.04 High FINAL Nicole [facility] - [place], [address] [place] [id number] 0 Phone: () - 12/27 CBC w/ auto diff LY % % 14.0 41.0 25.1 FINAL Nicole [facility] - [place], [address] [place] [id number] 0 Phone: () - 12/27 CBC w/ auto diff MO % % 6.0 15.0 13.7 FINAL Nicole [facility] - [place], [address] [place] [id number] 0 Phone: () - 12/27 CBC w/ auto diff EO % % 0.0 7.0 0.2 FINAL Nicole [facility] - [place], [address] [place] [id number] 0 Phone: () - 12/27 CBC w/ auto diff BA % % 0.0 2.0 0.3 FINAL Nicole [facility] - [place], [address] [place] [id number] 0 Phone: () - 12/27 CBC w/ auto diff LY # K/uL 0.4 3.6 1.6 FINAL Nicole [facility] - [place], [address] [place] [id number] 0 Phone: () - 12/27 CBC w/ auto diff MO # K/uL 0.2 1.3 0.9 FINAL Nicole [facility] - [place], [address] [place] [id number] 0 Phone: () - 12/27 CBC w/ auto diff EO # K/uL 0.0 0.6 0.0 FINAL Nicole muñoz [facility] - [place], [address] [place] [id number] 0 Phone: () - 12/27 CBC w/ auto diff BA # K/uL 0.0 0.2 0.0 FINAL Nicole muñoz [facility] - [place], [address] [place] [id number] 0 Phone: () - 12/27 CBC w/ auto diff NRBC % #/100W BC 0.0 0.2 0.0 FINAL Nicole muñoz [facility] - [place], [address] [place] [id number] 0 Phone: () - 12/27 CBC w/ auto diff RBC M/uL 3.9 5.1 3.18 Low FINAL Nicole muñoz [facility] - [place], [address] [place] [id number] 0 Phone: () - 12/27 CBC w/ auto diff HCT % 35.0 48.0 32.2 Low FINAL Nicole muñoz [facility] - [place], [address] [place] [id number] 0 Phone: () - 12/27 CBC w/ auto diff MCV fL 80.0 104.0 101.3 FINAL Nicole muñoz [facility] - [place], [address] [place] [id number] 0 Phone: () - 12/27 CBC w/ auto diff MCH pg 26.0 35.0 32.1 FINAL Nicole muñoz [facility] - [place], [address] [place] [id number] 0 Phone: () - 12/27 CBC w/ auto diff MCHC g/dL 30.0 35.0 31.7 FINAL Nicole muñoz [facility] - [place], [address] [place] [id number] 0 Phone: () - 12/27 CBC w/ auto diff MPV fL 9.5 13.4 8.8 Low FINAL Nicole muñoz [facility] - [place], [address] [place] [id number] 0 Phone: () - 12/27 CBC w/ auto diff RDW % 11.4 16.1 15.80 FINAL Nicole muñoz [facility] - [place], [address] [place] [id number] 0 Phone: () - 12/27 iSTAT creat inine panel Creat inine , iSTAT mg/dl 0.6 1.3 1.0 FINAL Nicole muñoz [facility] - [place], [address] [place] [id number] 0 Phone: () - 12/27 iSTAT creat inine panel GFR estim ate ml/min /1.73m ^2 61.0 GFR is calculate d using the CKD-EPI equation. FINAL Nicole muñoz [facility] - [place], [address] [facility] [address] [place] [id number] 0 Phone: () - 12/27 CMP Album in g/dL 3.2 5.2 3.7 FINAL Nicole muñoz [facility], [address] [place] [id number] 0 Phone: () - 12/27 CMP Alkal ine phosp hatas e U/L 46.0 116.0 94 FINAL Nicole muñoz [facility], [address] [place] [id number] 0 Phone: () - 12/27 CMP ALT/S GPT U/L 7.0 40.0 33 FINAL Nicole muñoz [facility], [address] [place] [id number] 0 Phone: () - 12/27 CMP AST/S GOT U/L 13.0 40.0 21 FINAL Nicole Ya [place] [address] [address] [facility] 100 [facility] [id number] 0 Phone: () - 12/27 CMP BUN mg/dL 9.0 23.0 8.0 Low FINAL Nicole muñoz [place] [address] [address] [facility] 100 [facility] [id number] 0 Phone: () - 12/27 CMP Calci um mg/dL 8.7 10.4 8.5 Low FINAL Nicole muñoz [place] [address] [id number] 0 Phone: () - 12/27 CMP Chlor rakan mmol/L 96.0 114.0 114 FINAL Nicole muñoz [place] [address] [id number] 0 Phone: () - 12/27 CMP CO2 [...] 96 hour stability window. FINAL Nicole muñoz [place] [address] [id number] 0 Phone: () - 12/27 CMP Creat inine mg/dL 0.5 1.2 0.89 FINAL Nicole muñoz [place] [address] [id number] 0 Phone: () - 12/27 CMP GFR estim ate ml/min /1.73m ^2 70.1 GFR is calculate d using the CKD-EPI equation. FINAL Nicole muñoz [place] [address] [id number] 0 Phone: () - 12/27 CMP Gluco se mg/dL 73.0 126.0 92 FINAL Nicole Terrazas [place] [address] [id number] 0 Phone: () - 12/27 CMP Potas sium mmol/L 3.5 5.1 4.3 [facility]AL [facility] [address] [facility] [address] [id number] 0 Phone: () - 12/27 CMP Sodiu m mmol/L 136.0 145.0 145 [facility] [address] [facility] [address] [id number] 0 Phone: () - 12/27 CMP Bilir ubin, total mg/dL 0.3 1.2 0.5 FINAL Nicole [place] [address] [facility] [address] [id number] 0 Phone: () - 12/27 CMP Total prote in g/dL 5.7 8.2 5.5 Low FINAL Nicole [place] [address] [id number] 0 Phone: () - 01/18 CMP Album in g/dL 3.2 5.2 3.7 FINAL Nicole [place] [address] [id number] 0 Phone: () - 01/18 CMP Alkal ine phosp hatas e U/L 46.0 116.0 94 FINAL Nicole [place] [address] [id number] 0 Phone: () - 01/18 CMP ALT/S GPT U/L 7.0 40.0 33 FINAL Nicole [place] [address] [id number] 0 Phone: () - 01/18 CMP AST/S GOT U/L 13.0 40.0 18 FINAL Nicole [place] [address] [facility] [address] [id number] 0 Phone: () - 01/18 CMP BUN mg/dL 9.0 23.0 10.0 FINAL Nicole [place] [address] [facility] [address] [id number] 0 Phone: () - 01/18 CMP Calci um mg/dL 8.7 10.4 9.0 FINAL Nicole [place] [address] [id number] 0 Phone: () - 01/18 CMP Chlor rakan mmol/L 96.0 114.0 108 FINAL [place] [address] [id number] 0 Phone: () - 01/18 CMP CO2 [...] 96 hour stability window. FINAL Nicole Terrazas [place] [address] [id number] 0 Phone: () - 01/18 CMP Creat inine mg/dL 0.5 1.2 0.80 FINAL Nicole [place] [address] [id number] 0 Phone: () - 01/18 CMP GFR estim ate ml/min /1.73m ^2 79.7 GFR is calculate d using the CKD-EPI equation. FINAL [place] [address] [id number] 0 Phone: () - 01/18 CMP Gluco se mg/dL 73.0 126.0 156 High FINAL Nicole [place] [address] [id number] 0 Phone: () - 01/18 CMP Potas sium mmol/L 3.5 5.1 4.7 FINAL Nicole [place] [address] [id number] 0 Phone: () - 01/18 CMP Sodiu m mmol/L 136.0 145.0 145 FINAL Nicole [place] [address] [id number] 0 Phone: () - 01/18 CMP Bilir ubin, total mg/dL 0.3 1.2 0.5 FINAL Nicole Terrazas [facility] - [place], [address] [place] [id number] 0 Phone: () - 01/18 CMP Total prote in g/dL 5.7 8.2 5.6 Low FINAL Nicole Terrazas [facility] - [place], [address] [place] [id number] 0 Phone: () - 01/18 CBC w/ auto diff WBC K/uL 3.0 8.9 12.6 High FINAL Nicole [facility] - [place], [address] [place] [id number] 0 Phone: () - 01/18 CBC w/ auto diff HGB g/dL 11.3 15.2 9.7 Low FINAL Nicole [facility] - [place], [address] [place] [id number] 0 Phone: () - 01/18 CBC w/ auto diff PLT K/uL 113.0 364.0 124 FINAL Nicole [facility] - [place], [address] [place] [id number] 0 Phone: () - 01/18 CBC w/ auto diff Augustus # (ANC) K/uL 1.6 6.6 10.7 High FINAL Nicole [facility] - [place], [address] [place] [id number] 0 Phone: () - 01/18 CBC w/ auto diff Augustus % % 43.0 74.0 84.3 High FINAL Nicole [facility] - [place], [address] [place] [id number] 0 Phone: () - 01/18 CBC w/ auto diff IG % % 0.0 0.5 4.4 High FINAL Nicole [facility] - [place], [address] [place] [id number] 0 Phone: () - 01/18 CBC w/ auto diff IG # K/uL 0.0 0.03 0.56 High FINAL Nicole muñoz [facility] - [place], [address] [place] [id number] 0 Phone: () - 01/18 CBC w/ auto diff LY % % 14.0 41.0 8.5 Low FINAL Nicole muñoz [facility] - [place], [address] [place] [id number] 0 Phone: () - 01/18 CBC w/ auto diff MO % % 6.0 15.0 2.6 Low FINAL Nicole muñoz [facility] - [place], [address] [place] [id number] 0 Phone: () - 01/18 CBC w/ auto diff EO % % 0.0 7.0 0.0 FINAL Nicole muñoz [facility] - [place], [address] [facility] [facility] [address] [place] [id number] 0 Phone: () - 01/18 CBC w/ auto diff BA % % 0.0 2.0 0.2 FINAL Nicole muñoz [facility] - [place], [address] [facility] [address] [place] [id number] 0 Phone: () - 01/18 CBC w/ auto diff LY # K/uL 0.4 3.6 1.1 FINAL Nicole muñoz [facility] - [place], [address] [place] [id number] 0 Phone: () - 01/18 CBC w/ auto diff MO # K/uL 0.2 1.3 0.3 FINAL Nicole muñoz [facility] - [place], [address] [place] [id number] 0 Phone: () - 01/18 CBC w/ auto diff EO # K/uL 0.0 0.6 0.0 FINAL Nicole muñoz [facility] - [place], [address] [place] [id number] 0 Phone: () - 01/18 CBC w/ auto diff BA # K/uL 0.0 0.2 0.0 FINAL Nicole Ya Nini a [facility] - [place], [address] [place] [id number] 0 Phone: () - 01/18 CBC w/ auto diff NRBC % #/100W BC 0.0 0.2 0.5 High FINAL Nicole Ya Nini a [facility] - [place], [address] [place] [id number] 0 Phone: () - 01/18 CBC w/ auto diff RBC M/uL 3.9 5.1 2.85 Low FINAL Nicole Ya Nini a [facility] - [place], [address] [place] [id number] 0 Phone: () - 01/18 CBC w/ auto diff HCT % 35.0 48.0 29.8 Low FINAL Nicole Felton Nini a [facility] - [place], [address] [place] [id number] 0 Phone: () - 01/18 CBC w/ auto diff MCV fL 80.0 104.0 104.6 High FINAL Nicole Ya Nini a [facility] - [place], [address] [place] [id number] 0 Phone: () - 01/18 CBC w/ auto diff MCH pg 26.0 35.0 34.0 FINAL Nicole Ya Nini a [facility] - [place], [address] [place] [id number] 0 Phone: () - 01/18 CBC w/ auto diff MCHC g/dL 30.0 35.0 32.6 FINAL Nicole Ya Mathewdamaris a [facility] - [place], [address] [place] [id number] 0 Phone: () - 01/18 CBC w/ auto diff MPV fL 9.5 13.4 9.0 Low FINAL Nicole muñoz [facility] - [place], [address] [place] [id number] 0 Phone: () - 01/18 CBC w/ auto diff RDW % 11.4 16.1 19.00 High FINAL Nicole muñoz [facility] - [place], [address] [place] [id number] 0 Phone: () - 01/18 iSTAT creat inine panel Creat inine , iSTAT mg/dl 0.6 1.3 0.8 FINAL Nicole muñoz [facility] - [place], [address] [place] [id number] 0 Phone: () - 01/18 iSTAT creat inine panel GFR estim ate ml/min /1.73m ^2 79.7 GFR is calculate d using the CKD-EPI equation. FINAL Nicole muñoz [facility] - [place], [address] [place] [id number] 0 Phone: () - 01/29 CBC w/ auto diff WBC K/uL 3.0 8.9 19.0 High FINAL Nicole muñoz [facility] - [place], [address] [place] [id number] 0 Phone: () - 01/29 CBC w/ auto diff HGB g/dL 11.3 15.2 8.8 Low FINAL Nicole muñoz [facility] - [place], [address] [place] [id number] 0 Phone: () - 01/29 CBC w/ auto diff PLT K/uL 113.0 364.0 59 Low FINAL Nicole muñoz [facility] - [place], [address] [place] [id number] 0 Phone: () - 01/29 CBC w/ auto diff Augustus # (ANC) K/uL 1.6 6.6 16.7 High FINAL Nicole muñoz [facility] - [place], [address] [place] [id number] 0 Phone: () - 01/29 CBC w/ auto diff Augustus % % 43.0 74.0 88.0 High FINAL Nicole Ya Mathewot a [facility] - [place], [address] [place] [id number] 0 Phone: () - 01/29 CBC w/ auto diff IG % % 0.0 0.5 1.9 High FINAL Nicole Felton [place] a [facility] - [place], [address] [place] [id number] 0 Phone: () - 01/29 CBC w/ auto diff IG # K/uL 0.0 0.03 0.36 High FINAL Nicole Felton [place] [facility] - [place], [address] [place] [id number] 0 Phone: () - 01/29 CBC w/ auto diff LY % % 14.0 41.0 5.1 Low FINAL Nicole Felton [place] [facility] - [place], [address] [place] [id number] 0 Phone: () - 01/29 CBC w/ auto diff MO % % 6.0 15.0 4.8 Low FINAL Nicole Ya Mathewot a [facility] - [place], [address] [place] [id number] 0 Phone: () - 01/29 CBC w/ auto diff EO % % 0.0 7.0 0.0 FINAL Nicole Ya Mathewdamaris a [facility] - [place], [address] [place] [id number] 0 Phone: () - 01/29 CBC w/ auto diff BA % % 0.0 2.0 0.2 FINAL Nicole Ya Mathewot a [facility] - [place], [address] [place] [id number] 0 Phone: () - 01/29 CBC w/ auto diff LY # K/uL 0.4 3.6 1.0 FINAL Nicole Terrazas a [facility] - [place], [address] [place] [id number] 0 Phone: () - 01/29 CBC w/ auto diff MO # K/uL 0.2 1.3 0.9 FINAL Nicole Terrazas a [facility] - [place], [address] [place] [id number] 0 Phone: () - 01/29 CBC w/ auto diff EO # K/uL 0.0 0.6 0.0 FINAL Nicole Terrazas [facility] - [place], [address] [place] [id number] 0 Phone: () - 01/29 CBC w/ auto diff BA # K/uL 0.0 0.2 0.0 FINAL Nicole Terrazas [facility] - [place], [address] [place] [id number] 0 Phone: () - 01/29 CBC w/ auto diff NRBC % #/100W BC 0.0 0.2 0.0 FINAL Nicole muñoz [facility] - [place], [address] [place] [id number] 0 Phone: () - 01/29 CBC w/ auto diff RBC M/uL 3.9 5.1 2.58 Low FINAL Nicole muñoz [facility] - [place], [address] [place] [id number] 0 Phone: () - 01/29 CBC w/ auto diff HCT % 35.0 48.0 27.0 Low FINAL Nicole Terrazas a [facility] - [place], [address] [place] [id number] 0 Phone: () - 01/29 CBC w/ auto diff MCV fL 80.0 104.0 104.7 High FINAL Nicole Carmonaot a [facility] - [place], [address] [place] [id number] 0 Phone: () - 09/12 /2023 CBC w/ auto diff MCH pg 26.0 35.0 34.1 FINAL Nicole muñoz [facility] - [place], [address] [place] [id number] 0 Phone: () - 01/29 CBC w/ auto diff MCHC g/dL 30.0 35.0 32.6 FINAL Nicole muñoz [facility] - [place], [address] [place] [id number] 0 Phone: () - 01/29 CBC w/ auto diff MPV fL 9.5 13.4 9.3 Low FINAL Nicole muñoz [facility] - [place], [address] [place] [id number] 0 Phone: () - 01/29 CBC w/ auto diff RDW % 11.4 16.1 17.80 High FINAL Nicole muñoz [facility] - [place], [address] [place] [phone] 0 Phone: () - 01/29 iSTAT Na+/K +/Cl- panel Sodiu m, iSTAT mmol/L 138.0 146.0 134 Low Reference range adjusted 0 with implement ation of I-Stat 8+ cartridge . FINAL Nicole muñoz [facility] - [place], [address] [place] [id number] 0 Phone: () - 01/29 iSTAT Na+/K +/Cl- panel [place], iSTAT mmol/L 3.5 4.9 3.4 Low Reference range adjusted 0 with implement ation of I-Stat 8+ cartridge . FINAL [facility] [place], [address] [place] [id number] 0 Phone: () - 01/29 iSTAT Na+/K +/Cl- panel Chlor rakan, iSTAT mmol/L 98.0 109.0 97 Low Reference range adjusted 0 with implement ation of I-Stat 8+ cartridge . FINAL [facility] [place], [address] [place] [id number] 0 Phone: () - 02/05 iSTAT Na+/K +/Cl- panel [place] m, iSTAT mmol/L 138.0 146.0 134 Low Reference range adjusted 0 with implement ation of I-Stat 8+ cartridge . FINAL [facility] [place], [address] [place] [id number] 0 Phone: () - 02/05 iSTAT Na+/K +/Cl- panel [place], iSTAT mmol/L 3.5 4.9 3.1 Low Reference range adjusted 0 with implement ation of I-Stat 8+ cartridge . FINAL Nicole muñoz [facility] - [place], [address] [facility] [address] [place] [phone] 0 Phone: () - 02/05 iSTAT Na+/K +/Cl- panel Chlor rakan, iSTAT mmol/L 98.0 109.0 95 Low Reference range adjusted 0 with implement ation of I-Stat 8+ cartridge . FINAL Nicole muñoz [facility] - [place], [address] [place] [phone] 0 Phone: () - 02/05 CBC w/ auto diff BA # K/uL 0.0 0.2 0.0 FINAL Nicole muñoz [facility] - [place], [address] [place] [phone] 0 Phone: () - 02/05 CBC w/ auto diff NRBC % #/100W BC 0.0 0.2 0.1 FINAL Nicole muñoz [facility] - [place], [address] [place] [phone] 0 Phone: () - 02/05 CBC w/ auto diff RBC M/uL 3.9 5.1 2.96 Low FINAL Nicole Ya [place] [facility] - [place], [address] [place] [phone] 0 Phone: () - 02/05 CBC w/ auto diff HCT % 35.0 48.0 30.3 Low FINAL Nicole Carmonaot a [facility] - [place], [address] [place] [phone] 0 Phone: () - 02/05 CBC w/ auto diff MCV fL 80.0 104.0 102.4 FINAL Nicole Terrazas a [facility] - [place], [address] [place] [phone] 0 Phone: () - 02/05 CBC w/ auto diff MCH pg 26.0 35.0 33.8 FINAL Nicole Felton Nini a [facility] - [place], [address] [place] [id number] 0 Phone: () - 02/05 CBC w/ auto diff MCHC g/dL 30.0 35.0 33.0 FINAL Nicoledarius Terrazas a [facility] - [place], [address] [place] [id number] 0 Phone: () - 02/05 CBC w/ auto diff MPV fL 9.5 13.4 8.5 Low FINAL Nicole Ya Nini muñoz [facility] - [place], [address] [place] [id number] 0 Phone: () - 02/05 CBC w/ auto diff RDW % 11.4 16.1 16.10 FINAL Nicole Ya Nini muñoz [facility] - [place], [address] [place] [id number] 0 Phone: () - 02/05 CBC w/ auto diff WBC K/uL 3.0 8.9 16.6 High FINAL Nicole Felton Nini a [facility] - [place], [address] [place] [phone] 0 Phone: () - 02/05 CBC w/ auto diff HGB g/dL 11.3 15.2 10.0 Low FINAL Nicole Carmonaot a [facility] - [place], [address] [place] [phone] 0 Phone: () - 02/05 CBC w/ auto diff PLT K/uL 113.0 364.0 122 FINAL Nicole Carmonaot a [facility] - [place], [address] [place] [id number] 0 Phone: () - 02/05 CBC w/ auto diff Augustus # (ANC) K/uL 1.6 6.6 12.9 High FINAL Nicole Carmonaot a [facility] - [place], [address] [place] [phone] 0 Phone: () - 02/05 CBC w/ auto diff Augustus % % 43.0 74.0 77.5 High FINAL Nicole Carmonaot a [facility] - [place], [address] [place] [id number] 0 Phone: () - 02/05 CBC w/ auto diff IG % % 0.0 0.5 1.1 High FINAL Nicole Terrazas a [facility] - [place], [address] [place] [phone] 0 Phone: () - 02/05 CBC w/ auto diff IG # K/uL 0.0 0.03 0.19 High FINAL Nicole Terrazas a [facility] - [place], [address] [place] [phone] 0 Phone: () - 02/05 CBC w/ auto diff LY % % 14.0 41.0 11.4 Low FINAL Nicole Carmonaot a [facility] - [place], [address] [place] [id number] 0 Phone: () - 02/05 CBC w/ auto diff MO % % 6.0 15.0 9.9 FINAL Nicole Carmonaot a [facility] - [place], [address] [place] [id number] 0 Phone: () - 02/05 CBC w/ auto diff EO % % 0.0 7.0 0.0 FINAL Nicole Carmonaot a [facility] - [place], [address] [place] [id number] 0 Phone: () - 02/05 CBC w/ auto diff BA % % 0.0 2.0 0.1 FINAL Nicole Carmonaot a [facility] - [place], [address] [place] [id number] 0 Phone: () - 02/05 CBC w/ auto diff LY # K/uL 0.4 3.6 1.9 FINAL Nicole Carmonaot a [facility] - [place], [address] [place] [id number] 0 Phone: () - 02/05 CBC w/ auto diff MO # K/uL 0.2 1.3 1.6 High FINAL Nicole muñoz [facility] - [place], [address] [place] [id number] 0 Phone: () - 02/05 CBC w/ auto diff EO # K/uL 0.0 0.6 0.0 FINAL Nicole muñoz [facility] - [place], [address] [place] [id number] 0 Phone: () - 02/05 iSTAT creat inine panel Creat inine , iSTAT mg/dl 0.6 1.3 0.8 FINAL Tiara Carmonaot a [facility] - [place], [address] [place] [phone] 0 Phone: () - 02/05 iSTAT creat inine panel GFR estim ate ml/min /1.73m ^2 79.7 GFR is calculate d using the CKD-EPI equation. FINAL Tiara Carmonaot a [facility] - [place], [address] [place] [phone] 0 Phone: () - 02/05 Magne sium, mg/dL mg/dL 1.5 2.3 1.4 Low FINAL Tiara muñoz [facility] - [place], [address] [facility] [place] [id number] 0 Phone: () - 02/07 iSTAT Na+/K +/Cl- panel Sodiu m, iSTAT mmol/L 138.0 146.0 137 Low Reference range adjusted 0 with implement ation of I-Stat 8+ cartridge . FINAL Tiara muñoz [facility] - [place], [address] [facility] [address] [facility] [place] [id number] 0 Phone: () - 02/07 iSTAT Na+/K +/Cl- panel Potas sium, iSTAT mmol/L 3.5 4.9 3.2 Low Reference range adjusted 0 with implement ation of I-Stat 8+ cartridge . FINAL Tiara muñoz [facility] - [place], [address] [facility] [address] [facility] [place] [id number] 0 Phone: () - 02/07 iSTAT Na+/K +/Cl- panel Chlor rakan, iSTAT mmol/L 98.0 109.0 100 Reference range adjusted 0 with implement ation of I-Stat 8+ cartridge . FINAL Tiara muñoz [facility] - [place], [address] [facility] [address] [facility] [place] [phone] 0 Phone: () - 02/07 Magne sium, mg/dL mg/dL 1.5 2.3 1.5 FINAL Tiara muñoz [facility] - [place], [address] [facility] [address] [place] [id number] 0 Phone: () - 02/07 iSTAT creat inine panel Creat inine , iSTAT mg/dl 0.6 1.3 1.0 FINAL Tiara muñoz [facility] - [place], [address] [facility] [address] [facility] [place] [id number] 0 Phone: () - 02/07 iSTAT creat inine panel GFR estim ate ml/min /1.73m ^2 61.0 GFR is calculate d using the CKD-EPI equation. FINAL Tiara muñoz Oncology - [facility], [address] [facility] [phone] 0 Phone: () - 02/08 Clost ridiu [...] been establish ed.This assay was performed by [employer] (R) PCR.The performan ce character istics of this assay havebeen determine d by [employer]. Performan cecharact eristics refer to the analytica l performan ceof the test.For additiona l informati on, please refer tohttp:// [employer]/faq/F AQ136(Thi s link is being provided forinform ational/e ducationa l purposes only.)[CA ] FINAL Tiara Coronado PENELOPE, [facility] [address] [facility] [id number] 4 02/08 Clost ridiu m diffi cile toxin PCR panel CLOST RIDIU M DIFFI CILE TOXIN /GDH W/REF L TO PCR SEE NOTE CLOSTRIDI UM DIFFICILE TOXIN/GDH W/REFL TO PCRMicro Number: [id number] est Status: FinalSpec imen Source: StoolSpec imen Quality: AdequateG DH Antigen: DetectedT oxin A and B: Not DetectedC OMMENT: Indetermi vikram. Specimen forwarded fortoxige cesar C. difficile PCR testing.F or additiona l informati on, please refer tohttp:// [employer] .Jumia/faq/F AQ136(Thi s link is being provided forinform ational/e ducationa l purposes only.)[CB ] FINAL Tiara Coronado QUEST, [facility] [address] [facility] [id number] 4 02/08 CMP Album in g/dL 3.2 5.2 3.2 FINAL Nicole Terrazas [facility], [address] [place] [phone] 0 Phone: () - 02/08 CMP Alkal ine phosp hatas e U/L 46.0 116.0 85 FINAL [place] [address] [facility] [facility] [place] [address] [phone] 0 Phone: () - 02/08 CMP ALT/S GPT U/L 7.0 40.0 24 FINAL Nicole [place] [address] [id number] 0 Phone: () - 02/08 CMP AST/S GOT U/L 13.0 40.0 16 FINAL Nicole [place] [address] [place] [address] [phone] 0 Phone: () - 02/08 CMP BUN mg/dL 9.0 23.0 8.0 Low FINAL Nicole Ya [place] [address] [phone] 0 Phone: () - 02/08 CMP Calci um mg/dL 8.7 10.4 8.3 Low FINAL Nicole [place] [address] [facility] [place] [address] [phone] 0 Phone: () - 02/08 CMP Chlor rakan mmol/L 96.0 114.0 111 FINAL Nicole [place] [address] [phone] 0 Phone: () - 02/08 CMP CO2 [...] 96 hour stability window. FINAL Nicole muñoz [place] [address] [id number] 0 Phone: () - 02/08 CMP Creat inine mg/dL 0.5 1.2 0.86 FINAL Nicole muñoz [place] [address] [id number] 0 Phone: () - 02/08 CMP GFR estim ate ml/min /1.73m ^2 73.0 GFR is calculate d using the CKD-EPI equation. FINAL Nicole muñoz [address] [phone] 0 Phone: () - 02/08 CMP Gluco se mg/dL 73.0 126.0 129 High FINAL Nicole muñoz [place] [address] [id number] 0 Phone: () - 02/08 CMP Potas sium mmol/L 3.5 5.1 3.6 FINAL Nicole Terrazas [place] [address] [id number] 0 Phone: () - 02/08 CMP Sodiu m mmol/L 136.0 145.0 144 FINAL Nicole muñoz [place] [address] [id number] 0 Phone: () - 02/08 CMP Bilir ubin, total mg/dL 0.3 1.2 0.3 FINAL Nicole Terrazas [place] [address] [phone] 0 Phone: () - 02/08 CMP Total prote in g/dL 5.7 8.2 4.8 Low FINAL Nicole Terrazas [place] [address] [id number] 0 Phone: () - 02/08 iSTAT creat inine panel Creat inine , iSTAT mg/dl 0.6 1.3 0.8 FINAL Nicole Ya [place] [facility] - [place], [address] [place] [id number] 0 Phone: () - 02/08 Xi nugent panel GFR estim ate ml/min /1.73m ^2 79.7 GFR is calculate d using the CKD-EPI equation. FINAL Nicole Terrazas a [facility] - [place], [address] [place] [phone] 0 Phone: () - 02/08 CBC w/ auto diff WBC K/uL 3.0 8.9 17.2 High FINAL Nicole Terrazas a [facility] - [place], [address] [place] [phone] 0 Phone: () - 02/08 CBC w/ auto diff HGB g/dL 11.3 15.2 7.9 Critica l hematol ogy result obtaine d Criti todd Low FINAL Nicole Terrazas a [facility] - [place], [address] [place] [id number] 0 Phone: () - 02/08 CBC w/ auto diff PLT K/uL 113.0 364.0 123 FINAL Nicole muñoz [facility] - [place], [address] [place] [id number] 0 Phone: () - 02/08 CBC w/ auto diff Augustus # (ANC) K/uL 1.6 6.6 13.8 High FINAL Nicole Terrazas a [facility] - [place], [address] [place] [id number] 0 Phone: () - 02/08 CBC w/ auto diff Augustus % % 43.0 74.0 80.0 High FINAL Nicole Terrazas a [facility] - [place], [address] [place] [id number] 0 Phone: () - 02/08 CBC w/ auto diff IG % % 0.0 0.5 2.2 High FINAL Nicole Terrazas a [facility] - [place], [address] [place] [id number] 0 Phone: () - 02/08 CBC w/ auto diff IG # K/uL 0.0 0.03 0.38 High FINAL Nicole Carmonaot a On[facility] - [place], [address] [place] [id number] 0 Phone: () - 02/08 CBC w/ auto diff LY % % 14.0 41.0 9.3 Low FINAL Nicole Carmonaot a [facility] - [place], [address] [place] [id number] 0 Phone: () - 02/08 CBC w/ auto diff MO % % 6.0 15.0 8.4 FINAL Nicole Ya Mathewot a [facility] - [place], [address] [place] [id number] 0 Phone: () - 02/08 CBC w/ auto diff EO % % 0.0 7.0 0.0 FINAL Nicole Ya Mathewot a [facility] - [place], [address] [place] [id number] 0 Phone: () - 02/08 CBC w/ auto diff BA % % 0.0 2.0 0.1 FINAL Nicole Ya Nini a [facility] - [place], [address] [place] [id number] 0 Phone: () - 02/08 CBC w/ auto diff LY # K/uL 0.4 3.6 1.6 FINAL Nicole Terrazas a [facility] - [place], [address] [place] [id number] 0 Phone: () - 02/08 CBC w/ auto diff MO # K/uL 0.2 1.3 1.5 High FINAL Nicole Carmonaot a [facility] - [place], [address] [place] [id number] 0 Phone: () - 02/08 CBC w/ auto diff EO # K/uL 0.0 0.6 0.0 FINAL Nicole Carmonaot a [facility] - [place], [address] [place] [id number] 0 Phone: () - 02/08 CBC w/ auto diff BA # K/uL 0.0 0.2 0.0 FINAL Nicole Terrazas a [facility] - [place], [address] [place] [id number] 0 Phone: () - 02/08 CBC w/ auto diff NRBC % #/100W BC 0.0 0.2 0.3 High FINAL Nicole Terrazas a [facility] - [place], [address] [place] [id number] 0 Phone: () - 02/08 CBC w/ auto diff RBC M/uL 3.9 5.1 2.33 Low FINAL Nicole muñoz On[facility] - [place], [address] [place] [id number] 0 Phone: () - 02/08 CBC w/ auto diff HCT % 35.0 48.0 24.6 Low FINAL Nicole muñoz On[facility] - [place], [address] [place] [id number] 0 Phone: () - 02/08 CBC w/ auto diff MCV fL 80.0 104.0 105.6 High FINAL Nicole muñoz On[facility] - [place], [address] [place] [id number] 0 Phone: () - 02/08 CBC w/ auto diff MCH pg 26.0 35.0 33.9 FINAL Nicole Terrazas a [facility] - [place], [address] [place] [id number] 0 Phone: () - 02/08 CBC w/ auto diff MCHC g/dL 30.0 35.0 32.1 FINAL Nicole Terrazas a [facility] - [place], [address] [place] [id number] 0 Phone: () - 02/08 CBC w/ auto diff MPV fL 9.5 13.4 9.1 Low FINAL Nicole muñoz On[facility] - [place], [address] [place] [id number] 0 Phone: () - 02/08 CBC w/ auto diff RDW % 11.4 16.1 16.70 High FINAL Nicole muñoz On[facility] - [place], [address] [place] [id number] 0 Phone: () - 02/12 Magne sium, mg/dL mg/dL 1.5 2.3 1.5 FINAL Nicole muñoz On[facility] - [place], [address] [place] [phone] 0 Phone: () - 02/12 iSTAT Na+/K +/Cl- panel Sodiu m, iSTAT mmol/L 138.0 146.0 139 Reference range adjusted 0 with implement ation of I-Stat 8+ cartridge . FINAL Nicole muñoz On[facility] - [place], [address] [facility] [address] [place] [id number] 0 Phone: () - 02/12 iSTAT Na+/K +/Cl- panel Potas sium, iSTAT mmol/L 3.5 4.9 3.8 Reference range adjusted 0 with implement ation of I-Stat 8+ cartridge . FINAL Nicole muñoz [facility] - [place], [address] [facility] [address] [place] [id number] 0 Phone: () - 02/12 iSTAT Na+/K +/Cl- panel Chlor rakan, iSTAT mmol/L 98.0 109.0 100 Reference range adjusted 0 with implement ation of I-Stat 8+ cartridge . FINAL Nicole muñoz [facility] - [place], [address] [place] [id number] 0 Phone: () - 02/12 CBC w/ auto diff WBC K/uL 3.0 8.9 9.0 High FINAL Nicole Ya [place] [facility] - [place], [address] [place] [id number] 0 Phone: () - 02/12 CBC w/ auto diff HGB g/dL 11.3 15.2 8.7 Low FINAL Nicole Carmonaot a On[facility] - [place], [address] [place] [id number] 0 Phone: () - 02/12 CBC w/ auto diff PLT K/uL 113.0 364.0 154 FINAL Nicole Terrazas a On[facility] - [place], [address] [place] [id number] 0 Phone: () - 02/12 CBC w/ auto diff Augustus # (ANC) K/uL 1.6 6.6 6.5 FINAL Nicole Terrazas a [facility] - [place], [address] [place] [id number] 0 Phone: () - 02/12 CBC w/ auto diff Augustus % % 43.0 74.0 72.4 FINAL Nicole Terrazas a [facility] - [place], [address] [place] [id number] 0 Phone: () - 02/12 CBC w/ auto diff IG % % 0.0 0.5 0.9 High FINAL Nicole Terrazas a [facility] - [place], [address] [place] [id number] 0 Phone: () - 02/12 CBC w/ auto diff IG # K/uL 0.0 0.03 0.08 High FINAL Nicole Terrazas a [facility] - [place], [address] [place] [id number] 0 Phone: () - 02/12 CBC w/ auto diff LY % % 14.0 41.0 17.0 FINAL Nicole Carmonaot a [facility] - [place], [address] [place] [id number] 0 Phone: () - 02/12 CBC w/ auto diff MO % % 6.0 15.0 9.4 FINAL Nicole Carmonaot a [facility] - [place], [address] [place] [id number] 0 Phone: () - 02/12 CBC w/ auto diff EO % % 0.0 7.0 0.3 FINAL Nicole Carmonaot a [facility] - [place], [address] [place] [id number] 0 Phone: () - 02/12 CBC w/ auto diff BA % % 0.0 2.0 0.0 FINAL Nicole Carmonaot a [facility] - [place], [address] [place] [phone] 0 Phone: () - 02/12 CBC w/ auto diff LY # K/uL 0.4 3.6 1.5 FINAL Nicole Carmonaot a [facility] - [place], [address] [place] [id number] 0 Phone: () - 02/12 CBC w/ auto diff MO # K/uL 0.2 1.3 0.8 FINAL Nicole Carmonaot a [facility] - [place], [address] [place] [id number] 0 Phone: () - 02/12 CBC w/ auto diff EO # K/uL 0.0 0.6 0.0 FINAL Nicole Terrazas a [facility] - [place], [address] [place] [id number] 0 Phone: () - 02/12 CBC w/ auto diff BA # K/uL 0.0 0.2 0.0 FINAL Nicole Carmonaot a [facility] - [place], [address] [place] [id number] 0 Phone: () - 02/12 CBC w/ auto diff NRBC % #/100W BC 0.0 0.2 0.0 FINAL Nicole Carmonaot a [facility] - [place], [address] [place] [id number] 0 Phone: () - 02/12 CBC w/ auto diff RBC M/uL 3.9 5.1 2.54 Low FINAL Nicole Felton Mathewot a [facility] - [place], [address] [place] [id number] 0 Phone: () - 02/12 CBC w/ auto diff HCT % 35.0 48.0 27.5 Low FINAL Nicole Felton Mathewot a [facility] - [place], [address] [place] [id number] 0 Phone: () - 02/12 CBC w/ auto diff MCV fL 80.0 104.0 108.3 High FINAL Nicole Ya Mathewot a [facility] - [place], [address] [place] [id number] 0 Phone: () - 02/12 CBC w/ auto diff MCH pg 26.0 35.0 34.3 FINAL Nicole Ya Mathewot a [facility] - [place], [address] [place] [id number] 0 Phone: () - 02/12 CBC w/ auto diff MCHC g/dL 30.0 35.0 31.6 FINAL Nicole Ya Mathewdamaris a Oncology - [place], [address] [place] [id number] 0 Phone: () - 02/12 CBC w/ auto diff MPV fL 9.5 13.4 8.3 Low FINAL Nicole Ya Mathewot a [facility] - [place], [address] [place] [id number] 0 Phone: () - 02/12 CBC w/ auto diff RDW % 11.4 16.1 17.40 High FINAL Nicole Felton Mathewot a [facility] - [place], [address] [place] [id number] 0 Phone: () - 03/01 CBC w/ auto diff WBC K/uL 3.0 8.9 4.5 FINAL Nicole Ya Mathewot a [facility] - [place], [address] [place] [id number] 0 Phone: () - 03/01 CBC w/ auto diff HGB g/dL 11.3 15.2 8.8 Low FINAL Nicole Terrazas a [facility] - [place], [address] [place] [id number] 0 Phone: () - 03/01 CBC w/ auto diff PLT K/uL 113.0 364.0 154 FINAL Nicole muñoz On[facility] - [place], [address] [place] [id number] 0 Phone: () - 03/01 CBC w/ auto diff Augustus # (ANC) K/uL 1.6 6.6 2.2 FINAL Nicole Ya Nini muñoz On[facility] - [place], [address] [place] [id number] 0 Phone: () - 03/01 CBC w/ auto diff Augustus % % 43.0 74.0 49.9 FINAL Nicole Felton Nini muñoz On[facility] - [place], [address] [place] [id number] 0 Phone: () - 03/01 CBC w/ auto diff IG % % 0.0 0.5 0.7 High FINAL Nicole Ya Nini muñoz On[facility] - [place], [address] [place] [id number] 0 Phone: () - 03/01 CBC w/ auto diff IG # K/uL 0.0 0.03 0.03 FINAL Nicole Ya Nini muñoz Oncology - [place], [address] [place] [id number] 0 Phone: () - 03/01 CBC w/ auto diff LY % % 14.0 41.0 32.0 FINAL Nicole muñoz On[facility] - [place], [address] [place] [id number] 0 Phone: () - 03/01 CBC w/ auto diff MO % % 6.0 15.0 14.5 FINAL Nicole Ya Mathewdamaris muñoz Oncology - [place], [address] [place] [id number] 0 Phone: () - 03/01 CBC w/ auto diff EO % % 0.0 7.0 2.5 FINAL Nicole Ya Nini muñoz On[facility] - [place], [address] [place] [id number] 0 Phone: () - 03/01 CBC w/ auto diff BA % % 0.0 2.0 0.4 FINAL Nicole Ya Nini muñoz On[facility] - [place], [address] [place] [id number] 0 Phone: () - 03/01 CBC w/ auto diff LY # K/uL 0.4 3.6 1.4 FINAL Nicole Felton Mathewdamaris muñoz Oncology - [place], [address] [place] [id number] 0 Phone: () - 03/01 CBC w/ auto diff MO # K/uL 0.2 1.3 0.7 FINAL Nicole Felton Mathewdamaris muñoz Oncology - [place], [address] [place] [id number] 0 Phone: () - 03/01 CBC w/ auto diff EO # K/uL 0.0 0.6 0.1 FINAL Nicole Felton Mathewdamaris muñoz Oncology - [place], [address] [place] [id number] 0 Phone: () - 03/01 CBC w/ auto diff BA # K/uL 0.0 0.2 0.0 FINAL Nicole Ya Mathewdamaris muñoz Oncology - [place], [address] [place] [id number] 0 Phone: () - 03/01 CBC w/ auto diff NRBC % #/100W BC 0.0 0.2 0.0 FINAL Nicole Ya Mathewdamaris muñoz Oncology - [place], [address] [place] [id number] 0 Phone: () - 03/01 CBC w/ auto diff RBC M/uL 3.9 5.1 2.57 Low FINAL Nicole Ya Mathewot a On[facility] - [place], [address] [place] [id number] 0 Phone: () - 03/01 CBC w/ auto diff HCT % 35.0 48.0 28.5 Low FINAL Nicole Ya Mathewot a On[facility] - [place], [address] [place] [id number] 0 Phone: () - 03/01 CBC w/ auto diff MCV fL 80.0 104.0 110.9 High FINAL Nicole Ya Mathewdamaris a Oncology - [place], [address] [place] [id number] 0 Phone: () - 03/01 CBC w/ auto diff MCH pg 26.0 35.0 34.2 FINAL Nicole Ya Mathewdamaris a Oncology - [place], [address] [place] [id number] 0 Phone: () - 03/01 CBC w/ auto diff MCHC g/dL 30.0 35.0 30.9 FINAL Nicole Ya Mathewdamaris a Oncology - [place], [address] [place] [id number] 0 Phone: () - 03/01 CBC w/ auto diff MPV fL 9.5 13.4 8.2 Low FINAL Nicole Felton Mathewdamaris a Oncology - [place], [address] [place] [id number] 0 Phone: () - 03/01 CBC w/ auto diff RDW % 11.4 16.1 15.70 FINAL Nicole Ya Mathewdamaris a Oncology - [place], [address] [place] [id number] 0 Phone: () - 03/01 CMP Album in g/dL 3.2 5.2 3.4 FINAL Nicole Ya Mathewdamaris muñoz Oncology - [place], [address] [place] [id number] 0 Phone: () - 03/01 CMP Alkal ine phosp hatas e U/L 46.0 116.0 89 FINAL Nicole Terrazas [facility], [address] [facility] [facility] [address] [facility] [id number] 0 Phone: () - 03/01 CMP ALT/S GPT U/L 7.0 40.0 15 FINAL [facility] [address] [facility] 100 [facility] [id number] 0 Phone: () - 03/01 CMP AST/S GOT U/L 13.0 40.0 18 FINAL [place] [address] [address] [facility] 100 [facility] [id number] 0 Phone: () - 03/01 CMP BUN mg/dL 9.0 23.0 9.0 FINAL [place] [address] [address] [facility] 100 [facility] [id number] 0 Phone: () - 03/01 CMP Calci um mg/dL 8.7 10.4 8.5 Low FINAL [place] [address] [id number] 0 Phone: () - 03/01 CMP Chlor rakan mmol/L 96.0 114.0 113 FINAL Nicole CarmonaCarol [place] [address] [id number] 0 Phone: () - 03/01 CMP CO2 [...] the 96 hour stability window. FINAL Nicole [place]Carol [place] [address] [phone] 0 Phone: () - 03/01 CMP Creat inine mg/dL 0.5 1.2 0.98 FINAL Nicole Terrazas [facility], [address] [id number] 0 Phone: () - 03/01 CMP GFR estim ate ml/min /1.73m ^2 62.4 GFR is calculate d using the CKD-EPI equation. FINAL Nicole Terrazas [place] [address] [phone] 0 Phone: () - 03/01 CMP Gluco se mg/dL 73.0 126.0 136 High FINAL Nicole Terrazas [place] [address] [id number] 0 Phone: () - 03/01 CMP Potas sium mmol/L 3.5 5.1 4.3 FINAL Nicole Carmona[place] [address] [id number] 0 Phone: () - 03/01 CMP Sodiu m mmol/L 136.0 145.0 147 High FINAL Nicole Carmona[place] [address] [id number] 0 Phone: () - 03/01 CMP Bilir ubin, total mg/dL 0.3 1.2 0.5 FINAL Nicole Carm[place] [address] [id number] 0 Phone: () - 03/01 CMP Total prote in g/dL 5.7 8.2 5.2 Low FINAL Nicole Carm[place] [address] [id number] 0 Phone: () - 04/12 CMP Album in g/dL 3.2 5.2 3.8 FINAL Nicole Carm[place] [address] [id number] 0 Phone: () - 04/12 CMP Alkal ine phosp hatas e U/L 46.0 116.0 90 FINAL Nicole [place] [address] [id number] 0 Phone: () - 04/12 CMP ALT/S GPT U/L 7.0 40.0 17 FINAL Nicole [place] [address] [id number] 0 Phone: () - 04/12 CMP AST/S GOT U/L 13.0 40.0 18 FINAL Nicole Terrazas [place] [address] [id number] 0 Phone: () - 04/12 CMP BUN mg/dL 9.0 23.0 14.0 FINAL Nicole Terrazas [facility] [address] [id number] 0 Phone: () - 04/12 CMP Calci um mg/dL 8.7 10.4 9.1 FINAL Nicole muñoz [facility] [address] [id number] 0 Phone: () - 04/12 CMP Chlor rakan mmol/L 96.0 114.0 110 FINAL Nicole [place] [address] [id number] 0 Phone: () - 04/12 CMP CO2 [...] 96 hour stability window. FINAL Nicole muñoz [place] [address] [phone] 0 Phone: () - 04/12 CMP Creat inine mg/dL 0.5 1.2 0.86 FINAL Nicole Terrazas [facility], [facility] N [address] [id number] 0 Phone: () - 04/12 CMP GFR estim ate ml/min /1.73m ^2 73.0 GFR is calculate d using the CKD-EPI equation. FINAL Nicole muñoz [facility], [facility] N [address] [id number] 0 Phone: () - 04/12 CMP Gluco se mg/dL 73.0 126.0 85 FINAL [place] [address] [id number] 0 Phone: () - 04/12 CMP Potas sium mmol/L 3.5 5.1 3.8 FINAL Nicole muñoz [facility], [address] [facility] [phone] 0 Phone: () - 04/12 CMP Sodiu m mmol/L 136.0 145.0 146 High FINAL Nicole muñoz On[facility], [address] [facility] [id number] 0 Phone: () - 04/12 CMP Bilir ubin, total mg/dL 0.3 1.2 0.3 FINAL Nicole muñoz [facility], [address] [facility] [facility] [id number] 0 Phone: () - 04/12 CMP Total prote in g/dL 5.7 8.2 5.6 Low FINAL Nicole muñoz [facility], [address] [facility] [facility] [id number] 0 Phone: () - 04/12 CBC w/ auto diff WBC K/uL 3.0 8.9 5.3 FINAL Nicole muñoz [facility] - [place], [address] [place] [id number] 0 Phone: () - 04/12 CBC w/ auto diff HGB g/dL 11.3 15.2 9.4 Low FINAL Nicole muñoz [facility] - [place], [address] [place] [id number] 0 Phone: () - 04/12 CBC w/ auto diff PLT K/uL 113.0 364.0 167 FINAL Nicole muñoz [facility] - [place], [address] [place] [id number] 0 Phone: () - 04/12 CBC w/ auto diff Augustus # (ANC) K/uL 1.6 6.6 3.0 FINAL Nicole muñoz [facility] - [place], [address] [place] [id number] 0 Phone: () - 04/12 CBC w/ auto diff Augustus % % 43.0 74.0 57.5 FINAL Nicole Carmonaot a [facility] - [place], [address] [place] [id number] 0 Phone: () - 04/12 CBC w/ auto diff IG % % 0.0 0.5 0.4 FINAL Nicole Carmonaot [facility] - [place], [address] [place] [id number] 0 Phone: () - 04/12 CBC w/ auto diff IG # K/uL 0.0 0.03 0.02 FINAL Nicole Carmonaot [facility] - [place], [address] [place] [id number] 0 Phone: () - 04/12 CBC w/ auto diff LY % % 14.0 41.0 28.6 FINAL Nicole Carmonaot [facility] - [place], [address] [place] [id number] 0 Phone: () - 04/12 CBC w/ auto diff MO % % 6.0 15.0 11.6 FINAL Nicole Carmonaot [facility] - [place], [address] [place] [id number] 0 Phone: () - 04/12 CBC w/ auto diff EO % % 0.0 7.0 1.5 FINAL Nicole Carmonaot [facility] - [place], [address] [place] [id number] 0 Phone: () - 04/12 CBC w/ auto diff BA % % 0.0 2.0 0.4 FINAL Nicole Carmonaot a [facility] - [place], [address] [place] [id number] 0 Phone: () - 04/12 CBC w/ auto diff LY # K/uL 0.4 3.6 1.5 FINAL Nicole Carmonaot a [facility] - [place], [address] [place] [id number] 0 Phone: () - 04/12 CBC w/ auto diff MO # K/uL 0.2 1.3 0.6 FINAL Nicole muñoz [facility] - [place], [address] [place] [id number] 0 Phone: () - 04/12 CBC w/ auto diff EO # K/uL 0.0 0.6 0.1 FINAL Nicole muñoz [facility] - [place], [address] [place] [id number] 0 Phone: () - 04/12 CBC w/ auto diff BA # K/uL 0.0 0.2 0.0 FINAL Nicole muñoz [facility] - [place], [address] [place] [id number] 0 Phone: () - 04/12 CBC w/ auto diff NRBC % #/100W BC 0.0 0.2 0.0 FINAL Nicole Ya Nini muñoz [facility] - [place], [address] [place] [id number] 0 Phone: () - 04/12 CBC w/ auto diff RBC M/uL 3.9 5.1 2.94 Low FINAL Nicole muñoz [facility] - [place], [address] [place] [id number] 0 Phone: () - 04/12 CBC w/ auto diff HCT % 35.0 48.0 29.6 Low FINAL Nicole muñoz [facility] - [place], [address] [place] [id number] 0 Phone: () - 04/12 CBC w/ auto diff MCV fL 80.0 104.0 100.7 FINAL Nicole muñoz [facility] - [place], [address] [place] [id number] 0 Phone: () - 04/12 CBC w/ auto diff MCH pg 26.0 35.0 32.0 FINAL Nicole muñoz [facility] - [place], [address] [place] [id number] 0 Phone: () - 04/12 CBC w/ auto diff MCHC g/dL 30.0 35.0 31.8 FINAL Nicole Felton [facility] - [place], [address] [place] [id number] 0 Phone: () - 04/12 CBC w/ auto diff MPV fL 9.5 13.4 9.5 FINAL Nicole Felton [facility] - [place], [address] [place] [id number] 0 Phone: () - 04/12 CBC w/ auto diff RDW % 11.4 16.1 12.30 FINAL Nicole Felton [facility] - [place], [address] [place] [id number] 0 Phone: () - 04/12 PRIOR RESUL T Not Given FINAL Nicole [employer], [facility] [address] [place] [id number] 4 04/12 SOURC E: Periphe ral Blood FINAL Nicole Ya [employer], [facility] [address] [place] [id number] 4 04/12 BCR ABL1/ ABL1 % % 0.000 FINAL Nicole Ya [employer], [facility] [address] [place] [id number] 4 04/12 BCR ABL1/ ABL1 % (IS) % 0.000 FINAL Nicole Ya [employer], [facility] [address] [place] [id number] 4 04/12 INTER PRETA TION see note [...] additiona l informati on, please refer tohttp:// [employer] .Jumia/faq/F AQ72(This link is being provided forinform ational/e ducationa l purposes only.)Ass ay sensitivi ty is at least 4.5-logs below baselineB CR-ABL1 transcrip t levels but is dependent onquantit y and quality of RNA used for testing and thecellul arity of the sample.Th is test was developed and its analytica lperforma nce character istics have been determine dby [facility] [place], [place].It has not been cleared or approved by the FDA. Thisassay has been validated pursuant to the CLIAregul ations and is used for clinical purposes. Alejandro Ya, Ph.D, HCLD (ABB)Scie ntific Director, Molecular Oncology FINAL Nicoledarius Ya [employer], [facility] [address] [place] [id number] 4 04/12 P190 BCR ABL1 Not Detecte d FINAL Nicole [employer], [facility] [address] [place] [id number] 4 04/12 P210 BCR ABL1 Not Detecte d FINAL Nicole [employer], [facility] [address] [place] [id number] 4 06/04 CBC w/ auto diff WBC K/uL 3.0 8.9 6.2 FINAL Nicole Carmonaot a [facility] - [place], [address] [place] [id number] 0 Phone: () - 06/04 CBC w/ auto diff HGB g/dL 11.3 15.2 12.8 FINAL Nicole Carmonaot a [facility] - [place], [address] [place] [phone] 0 Phone: () - 06/04 CBC w/ auto diff PLT K/uL 113.0 364.0 177 FINAL Nicole Carmonaot a [facility] - [place], [address] [place] [id number] 0 Phone: () - 06/04 CBC w/ auto diff Augustus # (ANC) K/uL 1.6 6.6 4.0 FINAL Nicole Carmonaot a [facility] - [place], [address] [place] [id number] 0 Phone: () - 06/04 CBC w/ auto diff Augustus % % 43.0 74.0 63.9 FINAL Nicole Terrazas a [facility] - [place], [address] [place] [id number] 0 Phone: () - 06/04 CBC w/ auto diff IG % % 0.0 0.5 0.2 FINAL Nicole Ya [facility] - [place], [address] [place] [id number] 0 Phone: () - 06/04 CBC w/ auto diff IG # K/uL 0.0 0.03 0.01 FINAL Nicole Terrazas a [facility] - [place], [address] [place] [id number] 0 Phone: () - 06/04 CBC w/ auto diff LY % % 14.0 41.0 27.5 FINAL Nicole Terrazas a [facility] - [place], [address] [place] [id number] 0 Phone: () - 06/04 CBC w/ auto diff MO % % 6.0 15.0 7.9 FINAL Nicole Carmonaot a [facility] - [place], [address] [place] [id number] 0 Phone: () - 06/04 CBC w/ auto diff EO % % 0.0 7.0 0.2 FINAL Nicole Ya [facility] - [place], [address] [place] [id number] 0 Phone: () - 06/04 CBC w/ auto diff BA % % 0.0 2.0 0.3 FINAL Nicole Carmonaot a [facility] - [place], [address] [place] [id number] 0 Phone: () - 06/04 CBC w/ auto diff LY # K/uL 0.4 3.6 1.7 FINAL Nicole Carmonaot a [facility] - [place], [address] [place] [id number] 0 Phone: () - 06/04 CBC w/ auto diff MO # K/uL 0.2 1.3 0.5 FINAL Nicole Ya [facility] - [place], [address] [place] [id number] 0 Phone: () - 06/04 CBC w/ auto diff EO # K/uL 0.0 0.6 0.0 FINAL Nicole Ya [facility] - [place], [address] [place] [id number] 0 Phone: () - 06/04 CBC w/ auto diff BA # K/uL 0.0 0.2 0.0 FINAL Nicole Carmonaot a [facility] - [place], [address] [place] [id number] 0 Phone: () - 06/04 CBC w/ auto diff NRBC % #/100W BC 0.0 0.2 0.0 FINAL Nicole Ya [facility] - [place], [address] [place] [id number] 0 Phone: () - 06/04 CBC w/ auto diff RBC M/uL 3.9 5.1 4.27 FINAL Nicole Ya [facility]ot [facility] - [place], [address] [place] [id number] 0 Phone: () - 06/04 CBC w/ auto diff HCT % 35.0 48.0 39.5 FINAL Nicole Terrazas a [facility] - [place], [address] [place] [id number] 0 Phone: () - 06/04 CBC w/ auto diff MCV fL 80.0 104.0 92.5 FINAL Nicole muñoz On[facility] - [place], [address] [place] [id number] 0 Phone: () - 06/04 CBC w/ auto diff MCH pg 26.0 35.0 30.0 FINAL Nicole muñoz [facility] - [place], [address] [place] [id number] 0 Phone: () - 06/04 CBC w/ auto diff MCHC g/dL 30.0 35.0 32.4 FINAL Nicole muñoz [facility] - [place], [address] [place] [id number] 0 Phone: () - 06/04 CBC w/ auto diff MPV fL 9.5 13.4 9.3 Low FINAL Nicole muñoz [facility] - [place], [address] [place] [id number] 0 Phone: () - 06/04 CBC w/ auto diff RDW % 11.4 16.1 12.70 FINAL Nicole muñoz [facility] - [place], [address] [place] [id number] 0 Phone: () - 06/04 iSTAT K+ panel Potas sium, iSTAT mmol/L 3.5 4.9 3.8 Reference range adjusted 0 with implement ation of I-Stat 8+ cartridge . FINAL Nicole muñoz [facility] - [place], [address] [place] [phone] 0 Phone: () - 07/05 CBC w/ auto diff WBC K/uL 3.0 8.9 3.3 FINAL Nicole muñoz [facility] - [place], [address] [place] [id number] 0 Phone: () - 07/05 CBC w/ auto diff HGB g/dL 11.3 15.2 11.9 FINAL Nicole Carmonaot a [facility] - [place], [address] [place] [id number] 0 Phone: () - 07/05 CBC w/ auto diff PLT K/uL 113.0 364.0 163 FINAL Nicole Carmonaot a [facility] - [place], [address] [place] [id number] 0 Phone: () - 07/05 CBC w/ auto diff Augustus # (ANC) K/uL 1.6 6.6 2.0 FINAL Nicole Felton [facility] - [place], [address] [place] [id number] 0 Phone: () - 07/05 CBC w/ auto diff Augustus % % 43.0 74.0 58.6 FINAL Nicole Felton [facility] - [place], [address] [place] [id number] 0 Phone: () - 07/05 CBC w/ auto diff IG % % 0.0 0.5 0.3 FINAL Nicole Felton [facility] - [place], [address] [place] [id number] 0 Phone: () - 07/05 CBC w/ auto diff IG # K/uL 0.0 0.03 0.01 FINAL Nicole Ya [facility] - [place], [address] [place] [id number] 0 Phone: () - 07/05 CBC w/ auto diff LY % % 14.0 41.0 24.3 FINAL Nicole Ya [facility] - [place], [address] [place] [id number] 0 Phone: () - 07/05 CBC w/ auto diff MO % % 6.0 15.0 16.2 High FINAL Nicoledarius Carmonaot a [facility] - [place], [address] [place] [id number] 0 Phone: () - 07/05 CBC w/ auto diff EO % % 0.0 7.0 0.3 FINAL Nicole Carmonaot a [facility] - [place], [address] [place] [id number] 0 Phone: () - 07/05 CBC w/ auto diff BA % % 0.0 2.0 0.3 FINAL Nicole Terrazas a [facility] - [place], [address] [place] [id number] 0 Phone: () - 07/05 CBC w/ auto diff LY # K/uL 0.4 3.6 0.8 FINAL Nicole Ya Nini a [facility] - [place], [address] [place] [id number] 0 Phone: () - 07/05 CBC w/ auto diff MO # K/uL 0.2 1.3 0.5 FINAL Nicole Ya Nini a [facility] - [place], [address] [place] [id number] 0 Phone: () - 07/05 CBC w/ auto diff EO # K/uL 0.0 0.6 0.0 FINAL Nicole Ya Nini a [facility] - [place], [address] [place] [id number] 0 Phone: () - 07/05 CBC w/ auto diff BA # K/uL 0.0 0.2 0.0 FINAL Nicole Ya Nini a [facility] - [place], [address] [place] [id number] 0 Phone: () - 07/05 CBC w/ auto diff NRBC % #/100W BC 0.0 0.2 0.0 FINAL Nicole Felton Nini a [facility] - [place], [address] [place] [id number] 0 Phone: () - 07/05 CBC w/ auto diff RBC M/uL 3.9 5.1 3.95 FINAL Nicole Ya [facility] [facility] - [place], [address] [place] [id number] 0 Phone: () - 07/05 CBC w/ auto diff HCT % 35.0 48.0 36.7 FINAL Nicole Ya [facility] - [place], [address] [place] [id number] 0 Phone: () - 07/05 CBC w/ auto diff MCV fL 80.0 104.0 92.9 FINAL Nicole Felton [facility] - [place], [address] [place] [id number] 0 Phone: () - 07/05 CBC w/ auto diff MCH pg 26.0 35.0 30.1 FINAL Nicole Felton [facility] - [place], [address] [place] [id number] 0 Phone: () - 07/05 CBC w/ auto diff MCHC g/dL 30.0 35.0 32.4 FINAL Nicole Felton [facility] - [place], [address] [place] [id number] 0 Phone: () - 07/05 CBC w/ auto diff MPV fL 9.5 13.4 8.8 Low FINAL Nicole Felton [facility] - [place], [address] [place] [id number] 0 Phone: () - 07/05 CBC w/ auto diff RDW % 11.4 16.1 14.10 FINAL Nicole Felton [facility] - [place], [address] [place] [id number] 0 Phone: () - 07/05 CMP Album in g/dL 3.2 5.2 4.4 FINAL Nicole Ya * [facility] [place], [address] [place] [id number] 0 Phone: () - 07/05 CMP Alkal ine phosp hatas e U/L 46.0 116.0 107 FINAL [facility] [address] [facility] [address] [facility] [id number] 0 Phone: () - 07/05 CMP ALT/S GPT U/L 7.0 40.0 26 FINAL Nicole Najera [facility], [address] [facility] 100 [facility] [id number] 0 Phone: () - 07/05 CMP AST/S GOT U/L 13.0 40.0 23 FINAL Nicole Najera [place] [address] [address] [id number] 0 Phone: () - 07/05 CMP BUN mg/dL 9.0 23.0 15.0 FINAL Nicole Najera [facility] [address] [id number] 0 Phone: () - 07/05 CMP Calci um mg/dL 8.7 10.4 10.4 FINAL Nicole Najera [facility], [address] [facility] [address] [id number] 0 Phone: () - 07/05 CMP Chlor rakan mmol/L 96.0 114.0 109 FINAL Nicole Najera [place] [address] [id number] 0 Phone: () - 07/05 CMP CO2 [...] the 96 hour stability window. FINAL [facility] [address] [facility] [address] [id number] 0 Phone: () - 07/05 CMP Creat inine mg/dL 0.5 1.2 1.06 FINAL Nicole Najera [facility], [address] [id number] 0 Phone: () - 07/05 CMP GFR estim ate ml/min /1.73m ^2 56.7 Low GFR is calculate d using the CKD-EPI equation. FINAL Nicoledarius Najera [facility], [address] [facility] [id number] 0 Phone: () - 07/05 CMP Gluco se mg/dL 73.0 126.0 97 FINAL Nicoledarius Najera [facility], [address] [facility] [id number] 0 Phone: () - 07/05 CMP Potas sium mmol/L 3.5 5.1 4.4 FINAL Nicole Najera [facility], [address] [facility] [address] [facility] [id number] 0 Phone: () - 07/05 CMP Sodiu m mmol/L 136.0 145.0 143 FINAL Nicole Ya * [facility], [address] [id number] 0 Phone: () - 07/05 CMP Bilir ubin, total mg/dL 0.3 1.2 0.5 FINAL Nicole Najera [facility], [address] [facility] [id number] 0 Phone: () - 07/05 CMP Total prote in g/dL 5.7 8.2 6.4 FINAL Nicole Najera [facility], [address] [id number] 0 Phone: () - 12/02 PRIOR RESUL T See Report FINAL Nicole NEGRETE [facility] [address] [place] [id number] 4 12/02 SOUR E: Periphe ral Blood FINAL Nicole NEGRETE, [facility] [address] [place] [id number] 4 12/02 BCR ABL1/ ABL1 % % 0.000 FINAL Nicole NEGRETE [facility] [address] [place] [id number] 4 12/02 BCR ABL1/ ABL1 % (IS) % 0.000 FINAL Nicole [employer], [facility] [address] [place] [id number] 4 12/02 INTER PRETA TION see note [...] l informati on, please refer tohttp:// [employer] .[employer]/faq/F AQ72(This link is being provided forinform ational/e ducationa l purposes only.)Ass ay sensitivi ty is at least 4.5-logs below baselineB CR-ABL1 transcrip t levels but is dependent onquantit y and quality of RNA used for testing and thecellul arity of the sample.Th is test was developed and its analytica lperforma nce character istics have been determine dby [facility] , [place], [place].It has not been cleared or approved by the FDA. Thisassay has been validated pursuant to the CLIAregul ations and is used for clinical purposes. Alejandro Ya, Ph.D, HCLD (ABB)Scie ntific Director, Molecular Oncology FINAL Nicole [employer], [facility] [address] [place] [id number] 4 12/02 P190 BCR ABL1 Not Detecte d FINAL Nicole [employer], [facility] [address] [place] [id number] 4 12/02 P210 BCR ABL1 Not Detecte d FINAL Nicole [employer], [facility] [address] [facility] [id number] 4 12/02 CMP Album in g/dL 3.5 5.0 4.3 FINAL Nicole Ya * [facility], [address] [facility] [id number] 0 12/02 CMP Alkal ine phosp hatas e U/L 36.0 125.0 126 High FINAL Nicole Ya * [facility], [address] [facility] [id number] 0 12/02 CMP ALT/S GPT U/L 0.0 34.0 29 FINAL Nicole Ya * [facility], [address] [facility] [id number] 0 12/02 CMP AST/S GOT U/L 14.0 36.0 39 High FINAL Nicole Ya * [facility], [address] [facility] [id number] 0 12/02 CMP BUN mg/dL 7.0 17.0 14.0 FINAL Nicole Ya * [facility] a Oncology [facility], [address] [facility] [id number] 0 12/02 CMP Calci um mg/dL 8.4 10.2 9.1 FINAL Nicole Ya * [facility] a Oncology [facility], [address] [facility] [id number] 0 12/02 CMP Chlor rakan mmol/L 96.0 107.0 108 High FINAL Nicole Ya * [facility], [address] [facility] [id number] 0 12/02 CMP CO2 mmol/L 22.0 30.0 [...] 96 hour stability window. FINAL Nicole [facility] [address] [id number] 0 12/02 CMP Creat inine mg/dL 0.66 1.25 1.30 High FINAL Nicole Ya Dania [facility], [facility] [address] [id number] 0 12/02 CMP GFR estim ate ml/min /1.73m ^2 44.3 Low GFR is calculate d using the CKD-EPI equation. FINAL Nicole [facility]era [facility] [address] [id number] 0 12/02 CMP Gluco se mg/dL 74.0 100.0 126 High FINAL Nicole Najera [facility], [facility] [address] [id number] 0 12/02 CMP Potas sium mmol/L 3.5 5.1 3.9 FINAL Nicole [facility], [address] [facility] [address] [id number] 0 12/02 CMP Sodiu m mmol/L 137.0 145.0 140 FINAL Nicole Najera [facility], [facility] [address] [id number] 0 12/02 CMP Bilir ubin, total mg/dL 0.2 1.3 0.7 FINAL Nicole Najera [facility] [place], [address] [place] [id number] 0 12/02 CMP Total prote in g/dL 6.3 8.2 6.5 FINAL Nicole Ya Dania [facility] [place], [address] [place] [id number] 0 12/02 CBC w/ auto diff WBC K/uL 3.0 8.9 4.0 FINAL Nicole Ya [facility] - [place], [address] [place] [id number] 0 Phone: () - 12/02 CBC w/ auto diff HGB g/dL 11.3 15.2 12.8 FINAL Nicole Ya [facility] [place], [address] [place] [phone] 0 Phone: () - 12/02 CBC w/ auto diff PLT K/uL 113.0 364.0 175 FINAL Nicole Ya [facility] [place], [address] [place] [id number] 0 Phone: () - 12/02 CBC w/ auto diff Augustus # (ANC) K/uL 1.6 6.6 2.5 FINAL Nicole Ya Mathewdamaris [facility] [place], [address] [place] [phone] 0 Phone: () - 12/02 CBC w/ auto diff Augustus % % 43.0 74.0 63.2 FINAL Nicole Ya [facility] [place], [address] [place] [id number] 0 Phone: () - 12/02 CBC w/ auto diff IG % % 0.0 0.5 0.3 FINAL Nicole Ya Mathewdamaris [facility] [place], [address] [place] [id number] 0 Phone: () - 12/02 CBC w/ auto diff IG # K/uL 0.0 0.03 0.01 FINAL Nicole Carmonaot [facility] - [place], [address] [place] [id number] 0 Phone: () - 12/02 CBC w/ auto diff LY % % 14.0 41.0 25.7 FINAL Nicole Carmonaot [facility] [place], [address] [place] [id number] 0 Phone: () - 12/02 CBC w/ auto diff MO % % 6.0 15.0 10.8 FINAL Nicole Carm[facility]ot [facility] [place], [address] [place] [id number] 0 Phone: () - 12/02 CBC w/ auto diff EO % % 0.0 7.0 0.0 FINAL Nicole Carmonaot [facility] [place], [address] [place] [phone] 0 Phone: () - 12/02 CBC w/ auto diff BA % % 0.0 2.0 0.0 FINAL Nicole Carm[facility]ot [facility] - [place], [address] [place] [id number] 0 Phone: () - 12/02 CBC w/ auto diff LY # K/uL 0.4 3.6 1.0 FINAL Nicole Terrazas [facility] [place], [address] [place] [id number] 0 Phone: () - 12/02 CBC w/ auto diff MO # K/uL 0.2 1.3 0.4 FINAL Nicole Carmonaot [facility] [place], [address] [place] [id number] 0 Phone: () - 12/02 CBC w/ auto diff EO # K/uL 0.0 0.6 0.0 FINAL Nicole Carm[facility] [place], [address] [place] [id number] 0 Phone: () - 12/02 CBC w/ auto diff BA # K/uL 0.0 0.2 0.0 FINAL Nicole Carm[facility] [place], [address] [place] [id number] 0 Phone: () - 12/02 CBC w/ auto diff NRBC % #/100W BC 0.0 0.2 0.0 FINAL Nicole Carm[facility] [place], [address] [place] [id number] 0 Phone: () - 12/02 CBC w/ auto diff RBC M/uL 3.9 5.1 3.98 FINAL Nicole Terrazas [facility] [place], [address] [place] [id number] 0 Phone: () - 12/02 CBC w/ auto diff HCT % 35.0 48.0 38.6 FINAL Nicole muñoz [facility] - [place], [address] [place] [id number] 0 Phone: () - 12/02 CBC w/ auto diff MCV fL 80.0 104.0 97.0 FINAL Nicole muñoz [facility] - [place], [address] [place] [id number] 0 Phone: () - 12/02 CBC w/ auto diff MCH pg 26.0 35.0 32.2 FINAL Nicole muñoz [facility] - [place], [address] [place] [id number] 0 Phone: () - 12/02 CBC w/ auto diff MCHC g/dL 30.0 35.0 33.2 FINAL Nicole Terrazas [facility] [place], [address] [place] [id number] 0 Phone: () - 12/02 CBC w/ auto diff MPV fL 9.5 13.4 9.1 Low FINAL Nicole Carmonaot [facility] - [place], [address] [place] [id number] 0 Phone: () - 12/02 CBC w/ auto diff RDW % 11.4 16.1 12.70 FINAL Nicole Ya [place] [facility] [place], [address] [place] [id number] 0 Phone: () - 03/30 [facility] [place] [facility] other lab See bridge attacher d 05/21 [facility] other lab See bridge attacher d 06/15 CBC w/ auto diff WBC K/uL 3.0 8.9 4.7 FINAL Nicole Ya [place] [facility] , [address] [place] [id number] 0 06/15 CBC w/ auto diff HGB g/dL 11.3 15.2 13.6 FINAL Nicole Ya [place] [facility] , [address] [place] [id number] 0 06/15 CBC w/ auto diff PLT K/uL 113.0 364.0 151 FINAL Nicole Ya [place] [facility] , [address] [place] [id number] 0 06/15 CBC w/ auto diff Augustus # (ANC) K/uL 1.6 6.6 2.9 FINAL Nicole Ya [place] [facility] , [address] [place] [id number] 0 06/15 CBC w/ auto diff Augustus % % 43.0 74.0 61.4 FINAL Nicole Ya [place] [facility] , [address] [place] [id number] 0 06/15 CBC w/ auto diff IG % % 0.0 0.5 0.2 FINAL Nicole Ya [place] [facility] , [address] [place] [id number] 0 06/15 CBC w/ auto diff IG # K/uL 0.0 0.03 0.01 FINAL Nicole Ya [place] [facility] , [address] [place] [id number] 0 06/15 CBC w/ auto diff LY % % 14.0 41.0 28.3 FINAL Nicole Ya [place] [facility] , [address] [place] [id number] 0 06/15 CBC w/ auto diff MO % % 6.0 15.0 10.1 FINAL Nicole Ya [place] [facility] , [address] [place] [id number] 0 06/15 CBC w/ auto diff EO % % 0.0 7.0 0.0 FINAL Nicole Ya [place] [facility] , [address] [place] [id number] 0 06/15 CBC w/ auto diff BA % % 0.0 2.0 0.0 FINAL Nicole Ya [place] [facility] , [address] [place] [id number] 0 06/15 CBC w/ auto diff LY # K/uL 0.4 3.6 1.3 FINAL Nicole Ya [place] [facility] , [address] [place] [id number] 0 06/15 CBC w/ auto diff MO # K/uL 0.2 1.3 0.5 FINAL Nicole Ya [place] [facility] , [address] [place] [id number] 0 06/15 CBC w/ auto diff EO # K/uL 0.0 0.6 0.0 FINAL Nicole Ya [place] [facility] , [address] [place] [id number] 0 06/15 CBC w/ auto diff BA # K/uL 0.0 0.2 0.0 FINAL Nicole Ya [place] [facility] , [address] [place] [id number] 0 06/15 CBC w/ auto diff NRBC % #/100W BC 0.0 0.2 0.0 FINAL Nicole Ya [place] [facility] , [address] [place] [id number] 0 06/15 CBC w/ auto diff RBC M/uL 3.9 5.1 4.32 FINAL Nicole Ya [place] [facility] , [address] [place] [id number] 0 06/15 CBC w/ auto diff HCT % 35.0 48.0 41.6 FINAL Nicole Ya [place] [facility] , [address] [place] [id number] 0 06/15 CBC w/ auto diff MCV fL 80.0 104.0 96.3 FINAL Niocle Ya [place] [facility] , [address] [place] [id number] 0 06/15 CBC w/ auto diff MCH pg 26.0 35.0 31.5 FINAL Nicole Ya [place] [facility] , [address] [place] [id number] 0 06/15 CBC w/ auto diff MCHC g/dL 30.0 35.0 32.7 FINAL Nicole Ya [place] [facility] , [address] [place] [id number] 0 06/15 CBC w/ auto diff MPV fL 9.5 13.4 9.3 Low FINAL Nicole Ya [place] [facility] , [address] [place] [id number] 0 06/15 CBC w/ auto diff RDW % 11.4 16.1 12.00 FINAL Nicole Ya [place] [facility] , [address] [place] [facility] [id number] 0 06/15 CMP Album in g/dL 3.5 5.0 4.6 FINAL Nicole Ya * [facility] , [address] [facility] [id number] 0 06/15 CMP Alkal ine phosp hatas e U/L 36.0 125.0 92 FINAL Nicole Ya * [facility] , [address] [facility] [id number] 0 06/15 CMP ALT/S GPT U/L 0.0 34.0 44 High FINAL Nicole Ya * [facility] , [address] [facility] [id number] 0 06/15 CMP AST/S GOT U/L 14.0 36.0 43 High FINAL Nicole Ya * [facility] , [address] [facility] [id number] 0 06/15 CMP BUN mg/dL 7.0 17.0 17.0 FINAL Nicole Ya * [facility] , [address] [facility] [id number] 0 06/15 CMP Calci um mg/dL 8.4 10.2 9.6 FINAL Nicole Ya * [facility] , [address] [facility] [id number] 0 06/15 CMP Chlor rakan mmol/L 96.0 107.0 106 FINAL Nicole Ya * [facility] [place] [facility] [address] [id number] 0 06/15 CMP CO2 mmol/L 22.0 30.0 [...] hour stability window. FINAL Nicole Ya * [facility] [place] , [facility] [address] [id number] 0 06/15 CMP Creat inine mg/dL 0.66 1.25 1.30 High FINAL Nicole Ya * [facility] [place] , [facility] [address] [id number] 0 06/15 CMP GFR estim ate ml/min /1.73m ^2 44.1 Low GFR is calculate d using the CKD-EPI equation. FINAL Nicole Ya * [facility] [place] , [facility] [address] [id number] 0 06/15 CMP Gluco se mg/dL 74.0 100.0 94 FINAL Nicole Ya * [facility] , [facility] [address] [id number] 0 06/15 CMP Potas sium mmol/L 3.5 5.1 4.1 FINAL Nicoledarius Ya * [facility] , [facility] [address] [id number] 0 06/15 CMP Sodiu m mmol/L 137.0 145.0 140 FINAL Nicoledarius Ya * [place] [facility] [place] [facility] , [address] [facility] [id number] 0 06/15 CMP Bilir ubin, total mg/dL 0.2 1.3 0.9 FINAL Nicole Ya * [facility] , [address] [facility] [id number] 0 06/15 CMP Total prote in g/dL 6.3 8.2 6.7 FINAL Nicole aY * [facility] , [address] [facility] [id number] 0 06/15 PRIOR RESUL T See Report FINAL Nicole Ya [employer], [facility] [address] [place] [id number] 4 06/15 SOURC E: Periphe ral Blood FINAL Nicole Felton NEGRETE, [facility] [address] [place] [id number] 4 06/15 BCR ABL1/ ABL1 % % 0.000 FINAL Nicoledarius NEGRE[place], [facility] [address] [place] [id number] 4 06/15 BCR ABL1/ ABL1 % (IS) % 0.000 FINAL Nicole Ya [employer], [facility] [address] [place] [id number] 4 06/15 INTER PRETA TION see note [...] l informati on, please refer tohttp:// education .Jumia/faq/F AQ72(This link is being provided forinform ational/e ducationa l purposes only.)Ass ay sensitivi ty is at least 4.5-logs below baselineB CR-ABL1 transcrip t levels but is dependent onquantit y and quality of RNA used for testing and thecellul arity of the sample.Th is test was developed and its analytica lperforma nce character istics have been determine dby [facility] [place], [place].It has not been cleared or approved by the FDA. Thisassay has been validated pursuant to the CLIAregul ations and is used for clinical purposes. [place] wislon M.D. FINAL Nicole Ya [employer], [facility] [address] [place] [id number] 4 06/15 P190 BCR ABL1 Not Detecte d FINAL Nicoledarius Ya [employer], [facility] [address] [place] [id number] 4 06/15 P210 BCR ABL1 Not Detecte d FINAL Nicoledarius Ya [employer], [facility] [address] [place] [id number] 4 01/06 CBC w/ auto diff WBC K/uL 3.0 8.9 4.5 FINAL Nicole Ya [place] [facility] , [address] [place] [id number] 0 01/06 CBC w/ auto diff HGB g/dL 11.3 15.2 12.8 FINAL Nicole Ya [place] [facility] , [address] [place] [id number] 0 01/06 CBC w/ auto diff PLT K/uL 113.0 364.0 153 FINAL Nicole Ya [place] [facility] , [address] [place] [id number] 0 01/06 CBC w/ auto diff Augustus # (ANC) K/uL 1.6 6.6 2.8 FINAL Nicole Ya [place] [facility] , [address] [place] [id number] 0 01/06 CBC w/ auto diff Augustus % % 43.0 74.0 61.5 FINAL Nicole Ya [place] [facility] , [address] [place] [id number] 0 01/06 CBC w/ auto diff IG % % 0.0 0.5 0.4 FINAL Nicole Ya [place] [facility] , [address] [place] [id number] 0 01/06 CBC w/ auto diff IG # K/uL 0.0 0.03 0.02 FINAL Nicole Ya [place] [facility] , [address] [place] [id number] 0 01/06 CBC w/ auto diff LY % % 14.0 41.0 25.4 FINAL Nicole Ya [place] [facility] , [address] [place] [id number] 0 01/06 CBC w/ auto diff MO % % 6.0 15.0 12.7 FINAL Nicole Ya [place] [facility] , [address] [place] [id number] 0 01/06 CBC w/ auto diff EO % % 0.0 7.0 0.0 FINAL Nicole Ya [place] [facility] , [address] [place] [id number] 0 01/06 CBC w/ auto diff BA % % 0.0 2.0 0.0 FINAL Nicole Ya [place] [facility] , [address] [place] [id number] 0 01/06 CBC w/ auto diff LY # K/uL 0.4 3.6 1.1 FINAL Nicole Ya [place] [facility] , [address] [place] [id number] 0 01/06 CBC w/ auto diff MO # K/uL 0.2 1.3 0.6 FINAL Nicole Ya [place] [facility] , [address] [place] [id number] 0 01/06 CBC w/ auto diff EO # K/uL 0.0 0.6 0.0 FINAL Nicole Ya [place] [facility] , [address] [place] [id number] 0 01/06 CBC w/ auto diff BA # K/uL 0.0 0.2 0.0 FINAL Nicole Ya [place] [facility] , [address] [place] [id number] 0 01/06 CBC w/ auto diff NRBC % #/100W BC 0.0 0.2 0.0 FINAL Nicole Ya [place] [facility] , [address] [place] [id number] 0 01/06 CBC w/ auto diff RBC M/uL 3.9 5.1 3.69 Low FINAL Nicole Ya [place] [facility] , [address] [place] [id number] 0 01/06 CBC w/ auto diff HCT % 35.0 48.0 37.6 FINAL Nicole Ya [place] [facility] , [address] [place] [id number] 0 01/06 CBC w/ auto diff MCV fL 80.0 104.0 101.9 FINAL Nicole Ya [place] [facility] [place] [facility] , [address] [place] [id number] 0 01/06 CBC w/ auto diff MCH pg 26.0 35.0 34.7 FINAL Nicole Ya [place] [facility] [place] [facility] , [address] [place] [id number] 0 01/06 CBC w/ auto diff MCHC g/dL 30.0 35.0 34.0 FINAL Nicole [facility] [place] [facility] , [address] [place] [id number] 0 01/06 CBC w/ auto diff MPV fL 9.5 13.4 9.6 FINAL [facility] , [address] [place] [id number] 0 01/06 CBC w/ auto diff RDW % 11.4 16.1 13.00 FINAL Nicole [facility] [place] [facility] , [address] [place] [id number] 0 01/06 CMP Album in g/dL 3.5 5.0 3.9 FINAL Nicole Ya * [place] [facility] [place] [facility] , [address] [facility] [id number] 0 01/06 CMP Alkal ine phosp hatas e U/L 36.0 125.0 79 FINAL Nicole Ya * [place] [facility] [place] [facility] , [address] [facility] [id number] 0 01/06 CMP ALT/S GPT U/L 0.0 34.0 24 FINAL Nicole Ya * [facility] , [address] [facility] [address] [id number] 0 01/06 CMP AST/S GOT U/L 14.0 36.0 33 FINAL Nicole Ya * [facility] , [address] [facility] [address] [id number] 0 01/06 CMP BUN mg/dL 7.0 17.0 14.0 FINAL Nicole Ya * [facility] , [facility] [address] [id number] 0 01/06 CMP Calci um mg/dL 8.4 10.2 8.9 FINAL Nicole Ya * [facility] , [address] [facility] [address] [id number] 0 01/06 CMP Chlor rakan mmol/L 96.0 107.0 109 High FINAL Nicole Ya * [facility] , [facility] [address] [id number] 0 01/06 CMP CO2 mmol/L 22.0 30.0 [...] hour stability window. FINAL Nicole Ya * [facility] , [address] [facility] [address] [id number] 0 01/06 CMP Creat inine mg/dL 0.66 1.25 1.00 FINAL Nicole Ya * [facility] , [facility] [address] [facility] [id number] 0 01/06 CMP GFR estim ate ml/min /1.73m ^2 60.2 GFR is calculate d using the CKD-EPI equation. FINAL Nicoledarius Ya * [facility] , [address] [facility] [address] [facility] [id number] 0 01/06 CMP Gluco se mg/dL 74.0 100.0 88 FINAL Nicole Ya * [facility] , [address] [facility] [address] [facility] [id number] 0 01/06 CMP Potas sium mmol/L 3.5 5.1 4.1 FINAL Nicoledarius Ya * [facility] , [address] [facility] [address] [facility] [id number] 0 01/06 CMP Sodiu m mmol/L 137.0 145.0 141 FINAL Nicoledarius Ya * [facility] , [address] [facility] [id number] 0 01/06 CMP Bilir ubin, total mg/dL 0.2 1.3 0.8 FINAL Nicole Ya * [facility] , [address] [facility] [id number] 0 01/06 CMP Total prote in g/dL 6.3 8.2 6.2 Low FINAL Nicoledarius Ya * [facility] , [address] [facility] [id number] 0 01/06 PRIOR RESUL T See Report FINAL Nicole NEGRETE, [facility] [address] [place] [id number] 4 01/06 SOUR E: Periphe ral Blood FINAL Nicole NEGRETE, [facility] [address] [place] [id number] 4 01/06 BCR ABL1/ ABL1 % % 0.000 FINAL Nicole [employer], [facility] [address] [place] [id number] 4 01/06 BCR ABL1/ ABL1 % (IS) % 0.000 FINAL Nicole [employer], [facility] [address] [place] [id number] 4 01/06 INTER PRETA TION see note [...] l informati on, please refer tohttp:// education .Jumia/faq/F AQ72(This link is being provided forinform ational/e ducationa l purposes only.)Ass ay sensitivi ty is at least 4.5-logs below baselineB CR-ABL1 transcrip t levels but is dependent onquantit y and quality of RNA used for testing and thecellul arity of the sample.Th is test was developed and its analytica lperforma nce character istics have been determine dby [facility] [place], [place].It has not been cleared or approved by the FDA. Thisassay has been validated pursuant to the CLIAregul ations and is used for clinical purposes. Reviewed by Aiden Hui M.D., Ph.D.Roc[address] f Patholog[address] st FINAL [place], [facility] [address] [place] [id number] 4 01/06 P190 BCR ABL1 Not Detecte d FINAL Nicole NEGRETE, [facility] [address] [facility] [id number] 4 01/06 P210 BCR ABL1 Not Detecte d FINAL Nicole [place], [facility] [address] [facility] [phone] 4 Medications Date Name Route Dose Frequency [...] given Active Vital Signs Date Type Value 08/23/2021 Body Temperature 96.80 08/23/2021 Respiratory Rate 16.00 08/23/2021 Intravascular Systolic 112 08/23/2021 Intravascular Diastolic 72 08/23/2021 Oxygen Saturation 97.00 08/23/2021 Heart Beat 78.00 08/23/2021 BSA 1.94 08/23/2021 BMI 29.25 08/23/2021 Height 66.50 08/23/2021 Weight 184.00 08/23/2021 Pain Scale 0.00 03/13/2022 Pain Scale 2.00 03/13/2022 Oxygen Saturation 99.00 03/13/2022 Respiratory Rate 16.00 03/13/2022 Heart Beat 81.00 03/13/2022 Intravascular Systolic 124 03/13/2022 Intravascular Diastolic 70 03/13/2022 BSA 1.90 03/13/2022 BMI 27.92 03/13/2022 Height 66.50 03/13/2022 Weight 175.60 03/13/2022 Body Temperature 97.80 09/11/2022 Body Temperature 98.20 09/11/2022 Heart Beat 71.00 09/11/2022 Oxygen Saturation 98.00 09/11/2022 Intravascular Systolic 114 09/11/2022 Intravascular Diastolic 76 09/11/2022 BSA 1.91 09/11/2022 Pain Scale 0.00 09/11/2022 Weight 176.20 09/11/2022 Height 66.50 09/11/2022 BMI 28.01 09/11/2022 Respiratory Rate 16.00 11/06/2022 BSA 1.92 11/06/2022 Body Temperature 97.80 11/06/2022 Heart Beat 66.00 11/06/2022 Respiratory Rate 16.00 11/06/2022 Oxygen Saturation 98.00 11/06/2022 Intravascular Systolic 114 11/06/2022 Intravascular Diastolic 78 11/06/2022 Pain Scale 0.00 11/06/2022 Weight 178.60 11/06/2022 Height 66.50 11/06/2022 BMI 28.39 11/09/2022 Pain Scale 0.00 11/09/2022 Height 66.50 11/16/2022 Oxygen Saturation 97.00 11/16/2022 Intravascular Systolic 121 11/16/2022 Intravascular Diastolic 82 11/16/2022 Pain Scale 0.00 11/16/2022 Weight 179.10 11/16/2022 Height 66.50 11/16/2022 BMI 28.47 11/16/2022 BSA 1.92 11/16/2022 Respiratory Rate 16.00 11/16/2022 Body Temperature 96.20 11/16/2022 Heart Beat 82.00 11/21/2022 Body Temperature 97.50 11/21/2022 Heart Beat 71.00 11/21/2022 Respiratory Rate 16.00 11/21/2022 Oxygen Saturation 99.00 11/21/2022 BMI 27.95 11/21/2022 Pain Scale 6.00 11/21/2022 Weight 175.80 11/21/2022 Height 66.50 11/21/2022 BSA 1.90 11/21/2022 Intravascular Systolic 114 11/21/2022 Intravascular Diastolic 76 11/27/2022 BSA 1.87 11/27/2022 BMI 26.92 11/27/2022 Height 66.50 11/27/2022 Weight 169.30 11/27/2022 Pain Scale 0.00 11/27/2022 Intravascular Systolic 144 11/27/2022 Intravascular Diastolic 98 11/27/2022 Heart Beat 122.00 11/27/2022 Respiratory Rate 16.00 11/27/2022 Oxygen Saturation 99.00 11/27/2022 Body Temperature 98.10 11/28/2022 BSA 1.89 11/28/2022 Intravascular Systolic 134 11/28/2022 Intravascular Diastolic 76 11/28/2022 Oxygen Saturation 97.00 11/28/2022 Respiratory Rate 16.00 11/28/2022 Heart Beat 57.00 11/28/2022 Body Temperature 98.90 11/28/2022 Weight 173.00 11/28/2022 Pain Scale 0.00 11/28/2022 BMI 27.50 11/28/2022 Height 66.50 11/29/2022 Intravascular Systolic 120 11/29/2022 Intravascular Diastolic 71 11/29/2022 Pain Scale 0.00 11/29/2022 Body Temperature 97.80 11/29/2022 Heart Beat 101.00 11/29/2022 Respiratory Rate 16.00 11/29/2022 Oxygen Saturation 98.00 11/29/2022 Height 66.50 12/03/2022 Pain Scale 0.00 12/03/2022 Body Temperature 98.30 12/03/2022 Heart Beat 69.00 12/03/2022 Intravascular Systolic 128 12/03/2022 Intravascular Diastolic 86 12/03/2022 Height 66.50 12/03/2022 Oxygen Saturation 100.00 12/07/2022 Body Temperature 97.90 12/07/2022 Heart Beat 90.00 12/07/2022 Respiratory Rate 16.00 12/07/2022 Oxygen Saturation 98.00 12/07/2022 Intravascular Systolic 136 12/07/2022 Intravascular Diastolic 68 12/07/2022 Pain Scale 0.00 12/07/2022 Weight 177.60 12/07/2022 Height 66.50 12/07/2022 BMI 28.24 12/07/2022 BSA 1.91 12/12/2022 Body Temperature 98.20 12/12/2022 Heart Beat [...] Beat 107.00 12/14/2022 Body Temperature 98.20 12/27/2022 BSA 1.90 12/27/2022 Body Temperature 97.80 12/27/2022 Heart Beat 84.00 12/27/2022 Respiratory Rate 16.00 12/27/2022 Oxygen Saturation 97.00 12/27/2022 Intravascular Systolic 104 12/27/2022 Intravascular Diastolic 64 12/27/2022 Pain Scale 0.00 12/27/2022 Weight 175.40 12/27/2022 Height 66.50 12/27/2022 BMI 27.89 12/28/2022 BMI 27.84 12/28/2022 Height 66.50 12/28/2022 Weight 175.10 12/28/2022 Pain Scale 0.00 12/28/2022 Body Temperature 97.70 12/28/2022 BSA 1.90 12/28/2022 Oxygen Saturation 97.00 12/28/2022 Respiratory Rate 16.00 12/28/2022 Heart Beat 94.00 12/28/2022 Intravascular Systolic 121 12/28/2022 Intravascular Diastolic 72 01/01/2023 BSA 1.91 01/01/2023 BMI 28.12 01/01/2023 Height 66.50 01/01/2023 Weight 176.90 01/01/2023 Intravascular Systolic 113 01/01/2023 Intravascular Diastolic 64 01/01/2023 Oxygen Saturation 98.00 01/01/2023 Respiratory Rate 16.00 01/01/2023 Heart Beat 83.00 01/01/2023 Body Temperature 98.60 01/01/2023 Pain Scale 0.00 01/03/2023 Pain Scale 0.00 01/03/2023 Height 66.50 01/03/2023 Intravascular Systolic 109 01/03/2023 Intravascular Diastolic 58 01/03/2023 Oxygen Saturation 98.00 01/03/2023 Heart Beat 78.00 01/03/2023 Body Temperature 98.50 01/04/2023 Body Temperature 98.30 01/04/2023 Heart Beat 71.00 01/04/2023 Oxygen Saturation 98.00 01/04/2023 Height 66.50 01/04/2023 Pain Scale 0.00 01/04/2023 Intravascular Systolic 113 01/04/2023 Intravascular Diastolic 71 01/14/2023 Heart Beat 70.00 01/14/2023 Respiratory Rate 20.00 01/14/2023 Oxygen Saturation 99.00 01/14/2023 Intravascular Systolic 108 01/14/2023 Intravascular Diastolic 57 01/14/2023 Height 66.50 01/14/2023 Pain Scale 0.00 01/14/2023 Body Temperature 97.90 01/18/2023 BMI 28.71 01/18/2023 Height 66.50 01/18/2023 Weight 180.60 01/18/2023 Pain Scale 0.00 01/18/2023 BSA 1.93 01/18/2023 Oxygen Saturation 98.00 01/18/2023 Respiratory Rate 17.00 01/18/2023 Heart Beat 74.00 01/18/2023 Body Temperature 96.70 01/18/2023 Intravascular Systolic 112 01/18/2023 Intravascular Diastolic 78 01/23/2023 Body Temperature 98.70 01/23/2023 BSA 1.90 01/23/2023 BMI 27.74 01/23/2023 Height 66.50 01/23/2023 Weight 174.50 01/23/2023 Pain Scale 0.00 01/23/2023 Intravascular Systolic 104 01/23/2023 Intravascular Diastolic 66 01/23/2023 Oxygen Saturation 97.00 01/23/2023 Heart Beat 77.00 01/23/2023 Respiratory Rate 16.00 01/24/2023 Body Temperature 97.70 01/24/2023 Heart Beat 82.00 01/24/2023 Respiratory Rate 16.00 01/24/2023 Oxygen Saturation 99.00 01/24/2023 Intravascular Systolic 112 01/24/2023 Intravascular Diastolic 67 01/24/2023 Pain Scale 0.00 01/24/2023 Height 66.50 01/29/2023 Respiratory Rate 16.00 01/29/2023 Oxygen Saturation 96.00 01/29/2023 Intravascular Systolic 123 01/29/2023 Intravascular Diastolic 78 01/29/2023 Pain Scale 0.00 01/29/2023 BSA 1.88 01/29/2023 Height 66.50 01/29/2023 BMI 27.06 01/29/2023 Body Temperature 98.40 01/29/2023 Heart Beat 89.00 01/29/2023 Weight 170.20 01/30/2023 Height 66.50 01/30/2023 Pain Scale 0.00 01/30/2023 Intravascular Systolic 115 01/30/2023 Intravascular Diastolic 66 01/30/2023 Oxygen Saturation 98.00 01/30/2023 Respiratory Rate 16.00 01/30/2023 Heart Beat 78.00 01/30/2023 Body Temperature 97.90 01/31/2023 Respiratory Rate 16.00 01/31/2023 Heart Beat 82.00 01/31/2023 Body Temperature 98.50 01/31/2023 Oxygen Saturation 98.00 01/31/2023 Intravascular Systolic 113 01/31/2023 Intravascular Diastolic 71 01/31/2023 Pain Scale 0.00 01/31/2023 Height 66.50 02/05/2023 BSA 1.90 02/05/2023 BMI 27.73 02/05/2023 Height 66.50 02/05/2023 Weight 174.40 02/05/2023 Pain Scale 3.00 02/05/2023 Intravascular Systolic 110 02/05/2023 Intravascular Diastolic 76 02/05/2023 Oxygen Saturation 96.00 02/05/2023 Respiratory Rate 16.00 02/05/2023 Body Temperature 99.10 02/05/2023 Heart Beat 112.00 02/07/2023 Height 66.50 02/07/2023 Pain Scale 0.00 02/07/2023 Body Temperature 97.00 02/07/2023 Heart Beat 82.00 02/07/2023 Respiratory Rate 16.00 02/07/2023 Oxygen Saturation 93.00 02/07/2023 Intravascular Systolic 94 02/07/2023 Intravascular Diastolic 64 02/08/2023 Oxygen Saturation 99.00 02/08/2023 Intravascular Systolic 104 02/08/2023 Intravascular Diastolic 68 02/08/2023 Pain Scale 0.00 02/08/2023 Weight 179.60 02/08/2023 Height 66.50 02/08/2023 BMI 28.55 02/08/2023 BSA 1.92 02/08/2023 Respiratory Rate 16.00 02/08/2023 Heart Beat 77.00 02/08/2023 Body Temperature 97.70 02/12/2023 Intravascular Systolic 97 02/12/2023 Intravascular Diastolic 66 02/12/2023 Pain Scale 0.00 02/12/2023 Weight 176.60 02/12/2023 Height 66.50 02/12/2023 Heart Beat 80.00 02/12/2023 BSA 1.91 02/12/2023 Body Temperature 98.30 02/12/2023 Oxygen Saturation 98.00 02/12/2023 Respiratory Rate 16.00 02/12/2023 BMI 28.08 02/19/2023 Body Temperature 97.30 02/19/2023 Heart Beat [...] Temperature 97.90 03/22/2023 Heart Beat 78.00 03/22/2023 BSA 1.91 03/22/2023 BMI 28.09 03/22/2023 Height 66.50 03/22/2023 Weight 176.70 03/22/2023 Pain Scale 0.00 03/22/2023 Intravascular Systolic 111 03/22/2023 Intravascular Diastolic 69 03/22/2023 Oxygen Saturation 99.00 03/22/2023 Respiratory Rate 16.00 04/12/2023 Body Temperature 97.20 04/12/2023 BMI 29.22 04/12/2023 Height 66.50 04/12/2023 Weight 183.80 04/12/2023 BSA 1.94 04/12/2023 Intravascular Systolic 144 04/12/2023 Intravascular Diastolic 72 04/12/2023 Oxygen Saturation 98.00 04/12/2023 Respiratory Rate 14.00 04/12/2023 Heart Beat 72.00 04/12/2023 Pain Scale 0.00 05/03/2023 Body Temperature 97.70 05/03/2023 Heart Beat [...]
--- OUTSIDE RECORDS SUMMARY | 2025-02-08 13:41 | XMS_ITS ---
Author Name Interface, [id number] lity Address [address] [place], [place] [address] [id number] [facility] Address [facility] [address] [address] Allergies and Adverse Reactions Plan Reason for Visit Encounters Immunizations Diagnostic Results Medications Problems Vital Signs Notes Section
--- OUTSIDE RECORDS SUMMARY | 2025-02-08 13:41 | XMS_ITS | CCD ---
Author Name Interface, [id number] lity Address [address] [facility] [address] [address] Organization [facility] Address [address] [facility] [address] [place] [address] Care Team Providers Care Senior Information Security Engineer Name Role Phone Nicole Ya MD Unavailable [...] status 90 03/13/2022 Karnofsky performance status 90 03/01/2023 Karnofsky performance status 80 11/06/2022 ECOG performance status - grade 0 0 02/05/2023 Karnofsky performance status 70 12/07/2022 Karnofsky performance status 90 12/13/2022 Karnofsky performance status 90 11/21/2022 Karnofsky performance status 80 01/18/2023 ECOG performance status - grade 1 1 11/28/2022 Karnofsky performance status 90 01/23/2023 Karnofsky performance status 90 02/10/2020 Karnofsky performance status 100 07/26/2023 Karnofsky performance status 90 08/16/2023 Karnofsky performance status 90 09/27/2023 Karnofsky performance status 90 09/06/2023 Karnofsky performance status 90 08/30/2020 Karnofsky performance status 100 03/23/2024 Karnofsky performance status 90 03/06/2021 Karnofsky performance status 70 11/08/2023 Karnofsky performance status 90 05/03/2023 Karnofsky performance status 90 01/20/2025 Karnofsky performance status 100 01/06/2025 Karnofsky [...] Ordered By Specimen Source Lab Address 05/21 [facility] other lab See 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 d 01/06 CBC w/ auto diff Augustus # (ANC) K/uL 1.6 6.6 2.8 FINAL Nicole Hines [facility] , [address] [place] [id number] 0 01/06 CBC w/ auto diff IG % % 0.0 0.5 0.4 FINAL Nicole Hines [facility] , [address] [place] [id number] 0 01/06 CBC w/ auto diff MO # K/uL 0.2 1.3 0.6 FINAL Nicole Hines [facility] , [address] [place] [id number] 0 01/06 CBC w/ auto diff MCV fL 80.0 104.0 101.9 FINAL Nicole Ya [place] [facility] , [address] [place] [id number] 0 01/06 CBC w/ auto diff IG # K/uL 0.0 0.03 0.02 FINAL Nicole Ya [place] [facility] , [address] [place] [id number] 0 01/06 CBC w/ auto diff MO % % 6.0 15.0 12.7 FINAL Nicole Ya [place] [facility] , [address] [place] [id number] 0 01/06 CBC w/ auto diff EO # K/uL 0.0 0.6 0.0 FINAL Nicole Ya [place] [facility] , [address] [place] [id number] 0 01/06 CBC w/ auto diff EO % % 0.0 7.0 0.0 FINAL Nicole Ya [place] [facility] , [address] [place] [id number] 0 01/06 CBC w/ auto diff RBC M/uL 3.9 5.1 3.69 Low FINAL Nicole Ya [place] [facility] , [address] [place] [id number] 0 01/06 CBC w/ auto diff MPV fL 9.5 13.4 9.6 FINAL Nicole Ya [place] [facility] , [address] [place] [id number] 0 01/06 CBC w/ auto diff WBC K/uL 3.0 8.9 4.5 FINAL Nicole Ya [place] [facility] , [address] [place] [id number] 0 01/06 CBC w/ auto diff PLT K/uL 113.0 364.0 153 FINAL Nicole Ya [place] [facility] , [address] [place] [id number] 0 01/06 CBC w/ auto diff BA % % 0.0 2.0 0.0 FINAL Nicole Ya [place] [facility] , [address] [place] [id number] 0 01/06 CBC w/ auto diff BA # K/uL 0.0 0.2 0.0 FINAL Nicole Ya [place] [facility] , [address] [place] [id number] 0 01/06 CBC w/ auto diff HGB g/dL 11.3 15.2 12.8 FINAL Nicole Ya [place] [facility] , [address] [place] [id number] 0 01/06 CBC w/ auto diff RDW % 11.4 16.1 13.00 FINAL Nicole Ya [place] [facility] , [address] [place] [id number] 0 01/06 CBC w/ auto diff LY % % 14.0 41.0 25.4 FINAL Nicole Ya [place] [facility] , [address] [place] [id number] 0 01/06 CBC w/ auto diff LY # K/uL 0.4 3.6 1.1 FINAL Nicole Ya [place] [facility] , [address] [place] [id number] 0 01/06 CBC w/ auto diff MCH pg 26.0 35.0 34.7 FINAL Nicole Ya [place] [facility] , [address] [place] [id number] 0 01/06 CBC w/ auto diff MCHC g/dL 30.0 35.0 34.0 FINAL Nicole Ya [place] [facility] , [address] [place] [id number] 0 01/06 CBC w/ auto diff NRBC % #/100W BC 0.0 0.2 0.0 FINAL Nicole Ya [place] [facility] , [address] [place] [id number] 0 01/06 CBC w/ auto diff HCT % 35.0 48.0 37.6 FINAL Nicole Ya [place] [facility] , [address] [place] [id number] 0 01/06 CBC w/ auto diff Augustus % % 43.0 74.0 61.5 FINAL Nicole Ya [place] [facility] , [address] [place] [id number] 0 01/06 CMP Alkal ine phosp hatas e U/L 36.0 125.0 79 FINAL Nicole Ya * [place] [facility] [place] [facility] , [address] [facility] [id number] 0 01/06 CMP ALT/S GPT U/L 0.0 34.0 24 FINAL Nicole Ya * [place] [facility] [place] [facility] , [address] [facility] [id number] 0 01/06 CMP Calci um mg/dL 8.4 10.2 8.9 FINAL Nicoledarius Ya * [facility] , [address] [facility] [address] [id number] 0 01/06 CMP GFR estim ate ml/min /1.73m ^2 60.2 GFR is calculate d using the CKD-EPI equation. FINAL Nicoledarius Ya * [facility] , [facility] [address] [id number] 0 01/06 CMP CO2 mmol/L 22.0 30.0 [...] hour stability window. FINAL Nicole Ya * [facility] , [address] [facility] [address] [id number] 0 01/06 CMP Gluco se mg/dL 74.0 100.0 88 FINAL Nicole Ya * [facility] , [facility] [address] [id number] 0 01/06 CMP Chlor rakan mmol/L 96.0 107.0 109 High FINAL Nicole Ya * [facility] , [address] [facility] [address] [id number] 0 01/06 CMP Total prote in g/dL 6.3 8.2 6.2 Low FINAL Nicole Ya * [facility] , [facility] [address] [id number] 0 01/06 CMP BUN mg/dL 7.0 17.0 14.0 FINAL Nicole Ya * [facility] , [facility] [address] [id number] 0 01/06 CMP Creat inine mg/dL 0.66 1.25 1.00 FINAL Nicole Ya * [facility] , [facility] [address] [id number] 0 01/06 CMP AST/S GOT U/L 14.0 36.0 33 FINAL Nicole Ya * [facility] , [facility] [address] [id number] 0 01/06 CMP Album in g/dL 3.5 5.0 3.9 FINAL Nicole Ya * [facility] , [facility] [address] [id number] 0 01/06 CMP Bilir ubin, total mg/dL 0.2 1.3 0.8 FINAL Nicole Ya * [facility] , [facility] [address] [id number] 0 01/06 CMP Sodiu m mmol/L 137.0 145.0 141 FINAL Nicole Ya * [facility] , [facility] [address] [id number] 0 01/06 CMP Potas sium mmol/L 3.5 5.1 4.1 FINAL Nicole Ya * [facility] , [facility] [address] [id number] 0 01/06 BCR ABL1/ ABL1 % (IS) % 0.000 FINAL Nicole Ya [facility], [facility] [address] [facility] [id number] 4 01/06 INTER PRETA TION see note [...] additiona l informati on, please refer tohttp:// [employer] .Nomadesk/faq/F AQ72(This link is being provided forinform ational/e ducationa l purposes only.)Ass ay sensitivi ty is at least 4.5-logs below baselineB CR-ABL1 transcrip t levels but is dependent onquantit y and quality of RNA used for testing and thecellul arity of the sample.Th is test was developed and its analytica lperforma nce character istics have been determine dby [facility] [place], [place].It has not been cleared or approved by the FDA. Thisassay has been validated pursuant to the CLIAregul ations and is used for clinical purposes. Reviewed by Aiden Hui M.D., Ph.D.Rocío f Pathologi st FINAL Nicole Ya [facility], [facility] [address] [place] [id number] 4 01/06 PRIOR RESUL T See Report FINAL Nicole Ya [facility], [facility] [address] [place] [id number] 4 01/06 P210 BCR ABL1 Not Detecte d FINAL Nicole Ya [facility], [facility] [address] [place] [id number] 4 01/06 BCR ABL1/ ABL1 % % 0.000 FINAL Nicole Ya [facility], [facility] [address] [place] [id number] 4 01/06 P190 BCR ABL1 Not Detecte d FINAL Nicole Ya [facility], [facility] [address] [place] [id number] 4 01/06 SOURC E: Periphe ral Blood FINAL Nicole Ya [facility], [facility] [address] [facility] [id number] 4 Medications Date Name Route Dose Frequency [...] Name Instructions Status 03/14/2024 Physician Order RTC FUNERAL SERVICE PRACTITIONER/EMBALMER/PA Cheryl Ordered 06/15/2024 Physician Order RTC Ordered 12/13/2024 Physician Order RTC MD Please schedule in S ptember Ordered 01/06/2025 Physician Order RTC FUNERAL SERVICE PRACTITIONER/EMBALMER/PA evaluate R b reast symptoms (redness, bruising, edema, nipple color change) Ordered 01/20/2025 Physician Order RTC FUNERAL SERVICE PRACTITIONER/EMBALMER/PA Tiara 10-14 days, recheck breast Ordered 01/20/2025 Physician Order Referral to [facility] Rehab right breast lymphedema - [place] location please Ordered 07/20/2025 Physician Order RTC [...] Of : 1955 Today's Provider:?Tiara Coronado RN, SENIOR CENTER DIRECTOR, MA, AOCN Date of Service:?01/20/2025 Attending Physician:?Nicole Ya (Hematology/Oncology) Referring Provider: ? 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 ER low +1 to 5%, WV -0%, HER2/augustus 3+ lymph node 2.? 12/24/2022: [...] children live?locally-1 son?lives [place] farm near [facility]. ?Another son lives about 9 miles away near [place].? One child lives in [place].? She is a supportive group of friends.? 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 Habits:? 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 ER low +1 to 5%, WV -0%, HER2/augustus 3+ lymph node 2.? 12/24/2022: [...] children live?locally-1 son?lives [place] a [place] near [facility]. ?Another son lives about 9 miles away near [place].? One child lives in [place].? She is a supportive group of friends.? 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 Habits:? Nonsmoker, does not drink ETOH Vital Signs Blood pressure: 130/88, Pulse: 50, Temperature: 96.4 F, Respirations: 16, O2 sat: 96%, Pain Scale: 1, Height: 66.5 in, Weight: 170.1 lb, BSA: 1.88, BMI: 27.04 kg/m2 Covid-19 vaccine (Munchkin) (03/13/2022), Patient declined/rejected; Flu vaccine - Adult [...] (T1b, N1, M0, G2, ER Status: Negative, WV Status: Negative, HER-2/augustus Status: Positive) Histopathologic Type: [...] FAX Electronically signed by Tiara Coronado RN, SENIOR CENTER DIRECTOR, [place], [place]MA 01/06/2025 14:58 CDT * Med [...] invasive ductal cancer, ER negative?[very weakly positive], WV negative, HER2/augustus 3+ ?Treatment intent is curative, [...] positive: No; Screening Date: 03/23/2024; Screening Tool: [facility] MD-PHQ2; Total depression score: 0 History of [...] ?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 ER low +1 to 5%, WV -0%, HER2/augustus 3+ lymph node 2.? 12/24/2022: [...] children live?locally-1 son?lives [place] a [place] near [facility]. ?Another son lives about 9 miles away near [place].? One child lives in [place].? She is a supportive group of friends.? 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 Habits:? 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 HEMATOLOGY/ MEDICAL ONCOLOGY FOLLOW UP VISIT Reason for Visit 1.? Completed Phesgo, maintenance, for stage IIA right breast cancer 2.? Ongoing Nilotinib for CML Assessment 1.?Stage IIA Right breast cancer ?(10/25/2022) treatment intent: Curative?right-sided breast cancer clinically, T1?N1 M0, invasive ductal cancer, ER negative?[very weakly positive], WV negative, HER2/augustus 3+ ?Treatment intent is curative [...] ?Follows with a psychiatrist ?Working with social servicesMarilyn ?(09/27/2023)?her unexpectedly 1 year ago 4. 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 ER low +1 to 5%, WV -0%, HER2/augustus 3+ lymph node 2.? 12/24/2022: [...] children live?locally-1 son?lives on a farm near [facility]. ?Another son lives about 9 miles away near [place].? One child lives in [place].? She is a supportive group of friends.? 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 Habits:? Nonsmoker, does not drink ETOH Vital Signs Blood pressure: 122/68, Pulse: 63, Temperature: 97.5 F, Respirations: 16, O2 sat: 98%, Pain Scale: 0, Height: 66.5 in, Weight: 174.9 lb, BSA: 1.9, BMI: 27.81 kg/m2 Covid-19 vaccine (Munchkin) (03/13/2022), Patient declined/rejected; Flu vaccine - Adult [...] (T1b, N1, M0, G2, ER Status: Negative, WV Status: Negative, HER-2/augustus Status: Positive) Histopathologic Type: [...] Frederick RN, JOAN, MA, OCN 03/23/2024 11:40 DRIVE WORKER
--- OUTSIDE RECORDS SUMMARY | 2025-02-08 13:42 | XMS_ITS ---
Author Name Interface, [id number] lity Address [address] [place] [address] Oncology [address] [facility] [address] [address] Allergies and Adverse Reactions Plan Reason for Visit Encounters Immunizations Diagnostic Results Medications Problems Vital Signs
--- OUTSIDE RECORDS SUMMARY | 2025-02-08 13:42 | XMS_ITS ---
Author Name Interface, P2Ohsmcii lity Address [address] [address] [facility] Address [address] [place] [address] Allergies and Adverse Reactions Medication/Group Name Reaction Severity Date imatinib mesylate 01/20/2025 topiramate 01/20/2025 Plan Date Type Value 01/06/2025 APPOINTMENT OV 30 MIN 01/06/2025 APPOINTMENT [...] 30 MIN 09/27/2023 APPOINTMENT OV 30 MIN 09/27/2023 LABORDER Mammogram, 3D wi th tomosynthesis 10/03/2023 LABORDER Mammogram, 3D wi th tomosynthesis 12/03/2023 LABORDER CBC w/ auto diff 12/03/2023 LABORDER CMP 12/03/2023 LABORDER BCR/ABL1 Quant 06/15/2024 LABORDER CMP 06/15/2024 LABORDER CBC w/ auto diff 06/15/2024 LABORDER BCR/ABL1 Quant 01/06/2025 LABORDER CMP 01/06/2025 LABORDER CBC w/ auto diff 01/06/2025 LABORDER BCR/ABL1 Quant Reason for Visit OV 30 MIN Encounters Date Name 09/27/2023 Vicky intertrigo ( disorder) 09/27/2023 Cellulitis of breast (disorder) 09/27/2023 Chronic myeloid leuk emia, disease (disorder) 09/27/2023 Counseling 09/27/2023 Depressive disorder (disorder) 09/27/2023 Estrogen receptor ne gative status [ER-] 09/27/2023 Fatigue (finding) 09/27/2023 Limited range of mot ion 09/27/2023 Personal history of breast cancer 09/27/2023 Right shoulder pain 09/27/2023 Secondary malignancy of lymph nodes Immunizations Date Name Route Dose Instructions Refusal Reason Stat us Flu vaccine - Adult Comp leted Diagnostic Results Date Type Test Units Lower Limit Upper Limit Result Flag Comments Status Ordered By Specimen Source Lab Address 12/02 PRIOR RESUL T See Report FINAL Nicole Ya [employer] [facility] [address] [place] [id number] 4 12/02 [facility] E: Periphe ral Blood FINAL Nicole Ya [employer] [facility] [address] [place] [id number] 4 12/02 BCR ABL1/ ABL1 % % 0.000 FINAL Nicole [email or web address], [facility] [address] [place] [id number] 4 12/02 BCR ABL1/ ABL1 % (IS) % 0.000 FINAL Nicole Ya [employer] [facility] [address] [place] [id number] 4 12/02 INTER PRETA TION see note [...] l informati on, please refer tohttp:// education .[facility]. com/faq/F AQ72(This link is being provided forinform ational/e ducationa l purposes only.)Ass ay sensitivi ty is at least 4.5-logs below baselineB CR-ABL1 transcrip t levels but is dependent onquantit y and quality of RNA used for testing and thecellul arity of the sample.Th is test was developed and its analytica lperforma nce character istics have been determine dby [facility] [place], [place].It has not been cleared or approved by the FDA. Thisassay has been validated pursuant to the CLIAregul ations and is used for clinical purposes. Alejandro Ya, Ph.D, HCLD (ABB)Scie ntific Director, Molecular Oncology FINAL Nicole Ya PENELOPE, [facility] [address] [place] [id number] 4 12/02 P190 BCR ABL1 Not Detecte d FINAL Nicoledarius Ya PENELOPE, [facility] [address] [place] [id number] 4 12/02 P210 BCR ABL1 Not Detecte d FINAL Nicole Ya PENELOPE, [facility] [address] [place] [id number] 4 12/02 CMP Album in g/dL 3.5 5.0 4.3 FINAL Nicole Ya * [facility] [place], [address] [facility] [id number] 0 12/02 CMP Alkal ine phosp hatas e U/L 36.0 125.0 126 High FINAL Nicole Ya * [facility], [address] [facility] [id number] 0 12/02 CMP ALT/S GPT U/L 0.0 34.0 29 FINAL Nicole Ya * [place], [address] [facility] [id number] 0 12/02 CMP AST/S GOT U/L 14.0 36.0 39 High FINAL Nicole Ya * [facility], [address] [facility] [id number] 0 12/02 CMP BUN mg/dL 7.0 17.0 14.0 FINAL Nicole Ya * [facility], [address] [facility] [id number] 0 12/02 CMP Calci um mg/dL 8.4 10.2 9.1 FINAL Nicole Ya * [facility], [address] [facility] [id number] 0 12/02 CMP Chlor rakan mmol/L 96.0 107.0 108 High FINAL Nicole Ya * [facility], [address] [facility] [id number] 0 12/02 CMP CO2 mmol/L 22.0 30.0 [...] hour stability window. FINAL Nicole Ya * [facility], [address] [facility] [id number] 0 12/02 CMP Creat inine mg/dL 0.66 1.25 1.30 High FINAL Nicole Ya * [facility], [address] [facility] [id number] 0 12/02 CMP GFR estim ate ml/min /1.73m ^2 44.3 Low GFR is calculate d using the CKD-EPI equation. FINAL Nicole Ya * [facility], [address] [facility] [address] [id number] 0 12/02 CMP Gluco se mg/dL 74.0 100.0 126 High FINAL Nicole Ya * [facility], [address] [facility] [address] [id number] 0 12/02 CMP Potas sium mmol/L 3.5 5.1 3.9 FINAL Nicole Ya * [facility], [facility] [address] [place] [address] [id number] 0 12/02 CMP Sodiu m mmol/L 137.0 145.0 140 FINAL Nicole Ya * [facility], [address] [facility] [address] [id number] 0 12/02 CMP Bilir ubin, total mg/dL 0.2 1.3 0.7 FINAL Nicole Ya * [facility], [address] [facility] [address] [place] [address] [id number] 0 12/02 CMP Total prote in g/dL 6.3 8.2 6.5 FINAL Nicole Ya * [facility], [address] [facility] [address] [id number] 0 12/02 CBC w/ auto diff WBC K/uL 3.0 8.9 4.0 FINAL Nicole [facility] [place], [address] [facility] [phone] 0 Phone: ( 12/02 CBC w/ auto diff HGB g/dL 11.3 15.2 12.8 FINAL Nicole Ya [facility] [place], [address] [place] [id number] 0 Phone: () - 12/02 CBC w/ auto diff PLT K/uL 113.0 364.0 175 FINAL Nicole [facility] [place], [address] [place] [phone] 0 Phone: () - 12/02 CBC w/ auto diff Augustus # (ANC) K/uL 1.6 6.6 2.5 FINAL Nicole [facility] [place], [address] [place] [id number] 0 Phone: () - 12/02 CBC w/ auto diff Augustus % % 43.0 74.0 63.2 FINAL Nicole [facility] [place], [address] [place] [id number] 0 Phone: () - 12/02 CBC w/ auto diff IG % % 0.0 0.5 0.3 FINAL Nicole Ya [facility] [place], [address] [place] [id number] 0 Phone: () - 12/02 CBC w/ auto diff IG # K/uL 0.0 0.03 0.01 FINAL Nicole [facility] [place], [address] [place] [id number] 0 Phone: () - 12/02 CBC w/ auto diff LY % % 14.0 41.0 25.7 FINAL Nicole [facility] [place], [address] [place] [id number] 0 Phone: () - 12/02 CBC w/ auto diff MO % % 6.0 15.0 10.8 FINAL Nicole [facility] [place], [address] [place] [id number] 0 Phone: () - 12/02 CBC w/ auto diff EO % % 0.0 7.0 0.0 FINAL Nicole Ya [place] [facility] [place], [address] [place] [id number] 0 Phone: () - 12/02 CBC w/ auto diff BA % % 0.0 2.0 0.0 FINAL Nicole [facility] [place], [address] [place] [id number] 0 Phone: () - 12/02 CBC w/ auto diff LY # K/uL 0.4 3.6 1.0 FINAL Nicole [facility] [place], [address] [place] [id number] 0 Phone: () - 12/02 CBC w/ auto diff MO # K/uL 0.2 1.3 0.4 FINAL Nicole Felton [facility] [place], [address] [place] [id number] 0 Phone: () - 12/02 CBC w/ auto diff EO # K/uL 0.0 0.6 0.0 FINAL Nicole Felton [facility] [place], [address] [place] [id number] 0 Phone: () - 12/02 CBC w/ auto diff BA # K/uL 0.0 0.2 0.0 FINAL Nicole Felton [facility] [place], [address] [place] [id number] 0 Phone: () - 12/02 CBC w/ auto diff NRBC % #/100W BC 0.0 0.2 0.0 FINAL Nicole Fleton [facility] [place], [address] [place] [id number] 0 Phone: () - 12/02 CBC w/ auto diff RBC M/uL 3.9 5.1 3.98 FINAL Nicole Felton [facility] [place], [address] [place] [id number] 0 Phone: () - 12/02 CBC w/ auto diff HCT % 35.0 48.0 38.6 FINAL Nicole [facility] [place], [address] [place] [id number] 0 Phone: () - 12/02 CBC w/ auto diff MCV fL 80.0 104.0 97.0 FINAL Nicole [facility] [place], [address] [place] [id number] 0 Phone: () - 12/02 CBC w/ auto diff MCH pg 26.0 35.0 32.2 FINAL Nicole [facility] [place], [address] [place] [id number] 0 Phone: () - 12/02 CBC w/ auto diff MCHC g/dL 30.0 35.0 33.2 FINAL Nicole [facility] [place], [address] [place] [id number] 0 Phone: () - 12/02 CBC w/ auto diff MPV fL 9.5 13.4 9.1 Low FINAL Nicole muñoz [facility] - [place], [address] [place] [id number] 0 Phone: () - 12/02 CBC w/ auto diff RDW % 11.4 16.1 12.70 FINAL Nicole muñoz [facility] - [place], [address] [place] [id number] 0 Phone: () - 03/30 [facility] other lab See ends breakage clerk d 05/21 [facility] other lab See ends breakage clerk d 06/15 CBC w/ auto diff WBC K/uL 3.0 8.9 4.7 FINAL Nicole Ya [place] [facility] [place] [facility] , [address] [place] [id number] 0 06/15 CBC w/ auto diff HGB g/dL 11.3 15.2 13.6 FINAL Nicole Ya [place] [facility] [place] [facility] , [address] [place] [id number] 0 06/15 CBC w/ auto diff PLT K/uL 113.0 364.0 151 FINAL Nicole Ya [place] [facility] [place] [facility] , [address] [place] [id number] 0 06/15 CBC w/ auto diff Augustus # (ANC) K/uL 1.6 6.6 2.9 FINAL Nicole Ya [place] [facility] [place] [facility] , [address] [place] [id number] 0 06/15 CBC w/ auto diff Augustus % % 43.0 74.0 61.4 FINAL Nicole Ya [place] [facility] [place] [facility] , [address] [place] [id number] 0 06/15 CBC w/ auto diff IG % % 0.0 0.5 0.2 FINAL Nicole Ya [place] [facility] [place] [facility] , [address] [place] [id number] 0 06/15 CBC w/ auto diff IG # K/uL 0.0 0.03 0.01 FINAL Nicole Ya [place] [facility] [place] [facility] , [address] [place] [id number] 0 06/15 CBC w/ auto diff LY % % 14.0 41.0 28.3 FINAL Nicole Ya [place] [facility] [place] [facility] , [address] [place] [id number] 0 06/15 CBC w/ auto diff MO % % 6.0 15.0 10.1 FINAL Nicole Ya [place] [facility] [place] [facility] , [address] [place] [id number] 0 06/15 CBC w/ auto diff EO % % 0.0 7.0 0.0 FINAL Nicole Ya [place] [facility] [place] [facility] , [address] [place] [id number] 0 06/15 CBC w/ auto diff BA % % 0.0 2.0 0.0 FINAL Nicole Ya [place] [facility] [place] [facility] , [address] [facility] [address] [place] [id number] 0 06/15 CBC w/ auto diff LY # K/uL 0.4 3.6 1.3 FINAL Nicole Ya [place] [facility] [place] [facility] , [address] [facility] [address] [place] [id number] 0 06/15 CBC w/ auto diff MO # K/uL 0.2 1.3 0.5 FINAL Nicole Ya [place] [facility] [place] [facility] , [address] [place] [id number] 0 06/15 CBC w/ auto diff EO # K/uL 0.0 0.6 0.0 FINAL Nicole Ya [place] [facility] [place] [facility] , [address] [place] [id number] 0 06/15 CBC w/ auto diff BA # K/uL 0.0 0.2 0.0 FINAL Nicole Ya [place] [facility] [place] [facility] , [address] [facility] [address] [place] [id number] 0 06/15 CBC w/ auto diff NRBC % #/100W BC 0.0 0.2 0.0 FINAL Nicole Ya [place] [facility] [place] [facility] , [address] [place] [id number] 0 06/15 CBC w/ auto diff RBC M/uL 3.9 5.1 4.32 FINAL Nicole Ya [place] [facility] [place] [facility] , [address] [place] [id number] 0 06/15 CBC w/ auto diff HCT % 35.0 48.0 41.6 FINAL Nicole Ya [place] [facility] [place] [facility] , [address] [place] [id number] 0 06/15 CBC w/ auto diff MCV fL 80.0 104.0 96.3 FINAL Nicole Ya [place] [facility] [place] [facility] , [address] [place] [id number] 0 06/15 CBC w/ auto diff MCH pg 26.0 35.0 31.5 FINAL Nicole Ya [place] [facility] [place] [facility] , [address] [place] [id number] 0 06/15 CBC w/ auto diff MCHC g/dL 30.0 35.0 32.7 FINAL Nicole Ya [place] [facility] [place] [facility] , [address] [place] [id number] 0 06/15 CBC w/ auto diff MPV fL 9.5 13.4 9.3 Low FINAL Nicole Ya [place] [facility] [place] [facility] , [address] [place] [id number] 0 06/15 CBC w/ auto diff RDW % 11.4 16.1 12.00 FINAL Nicole Ya [place] [facility] [place] [facility] , [address] [place] [id number] 0 06/15 CMP Album in g/dL 3.5 5.0 4.6 FINAL Nicole Ya * [place] [facility] [place] [facility] , [address] [place] [id number] 0 06/15 CMP Alkal ine phosp hatas e U/L 36.0 125.0 92 FINAL Nicole Ya * [facility] , [address] [facility] [id number] 0 06/15 CMP ALT/S GPT U/L 0.0 34.0 44 High FINAL Nicole Ya * [facility] , [address] [facility] [id number] 0 06/15 CMP AST/S GOT U/L 14.0 36.0 43 High FINAL Nicole Ya * [facility] , [address] [facility] [id number] 0 06/15 CMP BUN mg/dL 7.0 17.0 17.0 FINAL Nicole Ya * [facility] , [address] [facility] [id number] 0 06/15 CMP Calci um mg/dL 8.4 10.2 9.6 FINAL Nicole Ya * [facility] , [address] [id number] 0 06/15 CMP Chlor rakan mmol/L 96.0 107.0 106 FINAL Nicole Ya * [facility] , [address] [facility] [id number] 0 06/15 CMP CO2 mmol/L 22.0 30.0 [...] hour stability window. FINAL Nicole Ya * [facility] , [address] [facility] [id number] 0 01/27 /2025 CMP Creat inine mg/dL 0.66 1.25 1.30 High FINAL Nicole Ya * [facility] , [address] [facility] [address] [id number] 0 06/15 CMP GFR estim ate ml/min /1.73m ^2 44.1 Low GFR is calculate d using the CKD-EPI equation. FINAL Nicole Ya * [facility] , [address] [facility] [address] [facility] [id number] 0 06/15 CMP Gluco se mg/dL 74.0 100.0 94 FINAL Nicole Ya * [facility] , [facility] [address] [id number] 0 06/15 CMP Potas sium mmol/L 3.5 5.1 4.1 FINAL Nicole Ya * [facility] , [address] [facility] [address] [id number] 0 06/15 CMP Sodiu m mmol/L 137.0 145.0 140 FINAL Nicole Ya * [facility] , [address] [facility] [address] [facility] [id number] 0 06/15 CMP Bilir ubin, total mg/dL 0.2 1.3 0.9 FINAL Nicole Ya * [facility] , [address] [facility] [address] [id number] 0 06/15 CMP Total prote in g/dL 6.3 8.2 6.7 FINAL Nicole Ya * [facility] , [address] [facility] [address] [id number] 0 06/15 PRIOR RESUL T See Report FINAL Nicole Ya [facility], [facility] [address] [facility] [id number] 4 06/15 SOURC E: Periphe ral Blood FINAL Nicole Ya [facility], [facility] [address] [place] [id number] 4 06/15 BCR ABL1/ ABL1 % % 0.000 FINAL Nicole Ya [facility], [facility] [address] [place] [id number] 4 06/15 BCR ABL1/ ABL1 % (IS) % 0.000 FINAL Nicole Ya [facility], [facility] [address] [place] [id number] 4 06/15 INTER PRETA TION see note [...] l informati on, please refer tohttp:// education .IMNEXT/faq/F [email or web address](This link is being provided forinform ational/e ducationa l purposes only.)Ass ay sensitivi ty is at least 4.5-logs below baselineB CR-ABL1 transcrip t levels but is dependent onquantit y and quality of RNA used for testing and thecellul arity of the sample.Th is test was developed and its analytica lperforma nce character istics have been determine dby [facility] , [place], [place].It has not been cleared or approved by the FDA. Thisassay has been validated pursuant to the CLIAregul ations and is used for clinical purposes. Denver wilson M.D. FINAL Nicole Ya [facility], [facility] [address] [place] [id number] 4 06/15 P190 BCR ABL1 Not Detecte d FINAL Nicole Ya [facility], [facility] [address] [place] [id number] 4 06/15 P210 BCR ABL1 Not Detecte d FINAL Nicole NEGRETE, [facility] [address] [place] [id number] 4 01/06 CBC w/ auto diff WBC K/uL 3.0 8.9 4.5 FINAL Nicole Ya [place] [facility] [place] [facility] , [address] [place] [id number] 0 01/06 CBC w/ auto diff HGB g/dL 11.3 15.2 12.8 FINAL Nicole Ya [facility] [place] [facility] , [address] [place] [id number] 0 01/06 CBC w/ auto diff PLT K/uL 113.0 364.0 153 FINAL Nicole Ya [place] [facility] [place] [facility] , [address] [place] [id number] 0 01/06 CBC w/ auto diff Augustus # (ANC) K/uL 1.6 6.6 2.8 FINAL Nicole Ya [place] [facility] [place] [facility] , [address] [place] [id number] 0 01/06 CBC w/ auto diff Augustus % % 43.0 74.0 61.5 FINAL Nicole Ya [place] [facility] [place] [facility] , [address] [place] [id number] 0 01/06 CBC w/ auto diff IG % % 0.0 0.5 0.4 FINAL Nicole Ya [place] [facility] [place] [facility] , [address] [place] [id number] 0 01/06 CBC w/ auto diff IG # K/uL 0.0 0.03 0.02 FINAL Nicole Ya [place] [facility] [place] [facility] , [address] [place] [id number] 0 01/06 CBC w/ auto diff LY % % 14.0 41.0 25.4 FINAL Nicole Ya [place] [facility] [place] [facility] , [address] [place] [id number] 0 01/06 CBC w/ auto diff MO % % 6.0 15.0 12.7 FINAL Nicole Ya [place] [facility] [place] [facility] , [address] [place] [id number] 0 01/06 CBC w/ auto diff EO % % 0.0 7.0 0.0 FINAL Nicole Ya [place] [facility] , [address] [place] [id number] 0 01/06 CBC w/ auto diff BA % % 0.0 2.0 0.0 FINAL Nicole Ya [place] [facility] [place] [facility] , [address] [place] [id number] 0 01/06 CBC w/ auto diff LY # K/uL 0.4 3.6 1.1 FINAL Nicole Ya [place] [facility] [place] [facility] , [address] [place] [id number] 0 01/06 CBC w/ auto diff MO # K/uL 0.2 1.3 0.6 FINAL Nicole Ya [place] [facility] [place] [facility] , [address] [place] [id number] 0 01/06 CBC w/ auto diff EO # K/uL 0.0 0.6 0.0 FINAL Nicole Ya [place] [facility] [place] [facility] , [address] [place] [id number] 0 01/06 CBC w/ auto diff BA # K/uL 0.0 0.2 0.0 FINAL Nicole Ya [place] [facility] [place] [facility] , [address] [place] [id number] 0 01/06 CBC w/ auto diff NRBC % #/100W BC 0.0 0.2 0.0 FINAL Nicole Ya [place] [facility] [place] [facility] , [address] [place] [id number] 0 01/06 CBC w/ auto diff RBC M/uL 3.9 5.1 3.69 Low FINAL Nicole Ya [place] [facility] [place] [facility] , [address] [place] [id number] 0 01/06 CBC w/ auto diff HCT % 35.0 48.0 37.6 FINAL Nicole Ya [place] [facility] [place] [facility] , [address] [place] [id number] 0 01/06 CBC w/ auto diff MCV fL 80.0 104.0 101.9 FINAL Nicole Ya [place] [facility] , [address] [place] [id number] 0 01/06 CBC w/ auto diff MCH pg 26.0 35.0 34.7 FINAL Nicole Ya [place] [facility] , [address] [place] [id number] 0 01/06 CBC w/ auto diff MCHC g/dL 30.0 35.0 34.0 FINAL Nicole Ya [place] [facility] [place] [facility] , [address] [place] [facility] [id number] 0 01/06 CBC w/ auto diff MPV fL 9.5 13.4 9.6 FINAL Nicole Felton [place] [facility] On[facility] , [address] [place] [id number] 0 01/06 CBC w/ auto diff RDW % 11.4 16.1 13.00 FINAL Nicole Ya [place] [facility] , [address] [facility] [id number] 0 01/06 CMP Album in g/dL 3.5 5.0 3.9 FINAL Nicole Ya * [facility] , [address] [facility] [id number] 0 01/06 CMP Alkal ine phosp hatas e U/L 36.0 125.0 79 FINAL Nicole Ya * [facility] , [address] [facility] [id number] 0 01/06 CMP ALT/S GPT U/L 0.0 34.0 24 FINAL Nicole Ya * [facility] , [address] [facility] [id number] 0 01/06 CMP AST/S GOT U/L 14.0 36.0 33 FINAL Nicole Ya * [facility] , [address] [facility] [id number] 0 01/06 CMP BUN mg/dL 7.0 17.0 14.0 FINAL Nicole Ya * [facility] , [address] [facility] [id number] 0 01/06 CMP Calci um mg/dL 8.4 10.2 8.9 FINAL Nicoledarius Ya * [facility] , [facility] [address] [id number] 0 01/06 CMP Chlor rakan mmol/L 96.0 107.0 109 High FINAL Nicoledarius Ya * [facility] , [facility] [address] [id number] 0 01/06 CMP CO2 mmol/L 22.0 30.0 [...] hour stability window. FINAL Nicole Ya * [facility] , [facility] [address] [id number] 0 01/06 CMP Creat inine mg/dL 0.66 1.25 1.00 FINAL Nicoledarius Ya * [facility] , [facility] [address] [id number] 0 01/06 CMP GFR estim ate ml/min /1.73m ^2 60.2 GFR is calculate d using the CKD-EPI equation. FINAL Nicoledarius Ya * [facility] , [facility] [address] [id number] 0 01/06 CMP Gluco se mg/dL 74.0 100.0 88 FINAL Nicoledarius Ya * [facility] , [facility] [address] [id number] 0 01/06 CMP Potas sium mmol/L 3.5 5.1 4.1 FINAL Nicole Ya * [facility] Oncology , [address] [place] [address] [address] [id number] 01/06 CMP Sodiu m mmol/L 137.0 145.0 141 FINAL Nicole Ya * [facility] Oncology , [address] [facility] [id number] 01/06 CMP Bilir ubin, total mg/dL 0.2 1.3 0.8 FINAL Nicole Ya * [facility] Oncology , [address] [facility] [id number] 01/06 CMP Total prote in g/dL 6.3 8.2 6.2 Low FINAL Nicole Ya * [facility] Oncology , [address] [facility] [id number] 01/06 PRIOR RESUL T See Report FINAL Nicole Ya [facility], [facility] [address] [place] [id number] 4 01/06 SOUR E: Periphe ral Blood FINAL Nicole Ya [facility], [facility] [address] [place] [id number] 4 01/06 BCR ABL1/ ABL1 % % 0.000 FINAL Nicole Ya [facility], [facility] [address] [place] [id number] 4 01/06 BCR ABL1/ ABL1 % (IS) % 0.000 FINAL Nicole Ya [facility], [facility] [address] [place] [id number] 4 01/06 INTER PRETA TION see note [...] l informati on, please refer tohttp:// education .IMNEXT/faq/F AQ72(This link is being provided forinform ational/e ducationa l purposes only.)Ass ay sensitivi ty is at least 4.5-logs below baselineB CR-ABL1 transcrip t levels but is dependent onquantit y and quality of RNA used for testing and thecellul arity of the sample.Th is test was developed and its analytica lperforma nce character istics have been determine dby [facility] [place], [place].It has not been cleared or approved by the FDA. Thisassay has been validated pursuant to the CLIAregul ations and is used for clinical purposes. Reviewed by Aiden Hui M.D., Ph.D.Rocío f Pathologi Formerly [facility], [facility], [facility] [address] [place] [id number] 4 01/06 P190 BCR ABL1 Not Detecte d [facility] Sov[facility], [facility] [address] [place] [id number] 4 01/06 P210 BCR ABL1 Not Detecte d [facility] Sov[facility], [facility] [address] [place] [id number] 4 Medications Date Name Route Dose Frequency [...] given Active Vital Signs Date Type Value 09/27/2023 BMI 28.14 09/27/2023 Height 66.50 09/27/2023 Weight 177.00 09/27/2023 Pain Scale 0.00 09/27/2023 BSA 1.91 09/27/2023 Oxygen Saturation 97.00 09/27/2023 Respiratory Rate 16.00 09/27/2023 Heart Beat 78.00 09/27/2023 Body Temperature 97.70 09/27/2023 Intravascular Systolic 118 09/27/2023 Intravascular Diastolic 80 10/18/2023 BMI 27.87 10/18/2023 Height 66.50 10/18/2023 Weight 175.30 10/18/2023 Intravascular Systolic 120 10/18/2023 Intravascular Diastolic 85 10/18/2023 Oxygen Saturation 98.00 10/18/2023 Respiratory Rate 18.00 10/18/2023 Heart Beat 71.00 10/18/2023 BSA 1.90 10/18/2023 Pain Scale 3.00 10/18/2023 Body Temperature 97.70 11/08/2023 BMI 27.85 11/08/2023 Height 66.50 11/08/2023 Weight 175.20 11/08/2023 Intravascular Systolic 121 11/08/2023 Intravascular Diastolic 81 11/08/2023 BSA 1.90 11/08/2023 Respiratory Rate 16.00 11/08/2023 Heart Beat 72.00 11/08/2023 Body Temperature 97.60 11/08/2023 Pain Scale 2.00 11/08/2023 Oxygen Saturation 96.00 12/13/2023 BSA 1.89 12/13/2023 BMI 27.38 12/13/2023 Height 66.50 12/13/2023 Weight 172.20 12/13/2023 Pain Scale 0.00 12/13/2023 Intravascular Systolic 144 12/13/2023 Intravascular Diastolic 90 12/13/2023 Oxygen Saturation 98.00 12/13/2023 Respiratory Rate 16.00 12/13/2023 Body Temperature 97.50 12/13/2023 Heart Beat 69.00 03/23/2024 BSA 1.90 03/23/2024 Body Temperature 97.50 03/23/2024 Heart Beat 63.00 03/23/2024 Respiratory Rate 16.00 03/23/2024 Oxygen Saturation 98.00 03/23/2024 Intravascular Systolic 122 03/23/2024 Intravascular Diastolic 68 03/23/2024 Pain Scale 0.00 03/23/2024 Weight 174.90 03/23/2024 Height 66.50 03/23/2024 BMI 27.81 06/15/2024 BSA 1.89 06/15/2024 Body Temperature 98.30 06/15/2024 Heart Beat 82.00 06/15/2024 Respiratory Rate 16.00 06/15/2024 BMI 27.44 06/15/2024 Intravascular Systolic 130 06/15/2024 Intravascular Diastolic 86 06/15/2024 Pain Scale 0.00 06/15/2024 Weight 172.60 06/15/2024 Height 66.50 06/15/2024 Oxygen Saturation 98.00 Notes Section * Med Onc Follow-up Note Patient Name: MARIO TAM Date Of : 1955 Today's Provider:?Tiara Coronado RN, LAWYER PROBATE, MA, AOCN Date of Service:?01/06/2025 Attending Physician:?Nicole Ya (Hematology/Oncology) Referring Provider: ? HEMATOLOGY/ MEDICAL ONCOLOGY FOLLOW UP VISIT Reason for Visit Interim visit to evaluate right breast changes Assessment 1.?Stage IIA Right breast cancer ???(10/25/2022) treatment intent: Curative??right-sided breast cancer clinically, T1??N1 M0, invasiveductal cancer, ER negative??[very weakly positive], ND negative, HER2/augustus 3+ ?Treatment intent is curative, [...] ?Lymph node metastatic carcinoma ??? ER negative, ND negative, HER2/augustus 3+ on??breast ??? ER low +1 to 5%, ND -0%, HER2/augustus 3+ lymph node 2.?? 12/24/2022: [...] children live??locally-1 son??lives on a farm near [facility]. ??Another son lives about 9 miles away near [place].?? One child lives in [place].?? She is a supportive group of friends.?? 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 Habits:?? Nonsmoker, does not drink ETOH Vital Signs Blood pressure: 130/88, Pulse: 50, Temperature: 96.4 F, Respirations: 16, O2 sat: 96%, Pain Scale: 1, Height: 66.5 in, Weight: 170.1 lb, BSA: 1.88, BMI: 27.04 kg/m2 Covid-19 vaccine (mon.ki) (03/13/2022), Patient declined/rejected; Flu vaccine - Adult [...] (T1b, N1, M0, G2, ER Status: Negative, ND Status: Negative, HER-2/augustus Status: Positive) Histopathologic Type: [...] (L) ? Surveys/Consents/Other Discussions Tiara Coronado RN, LAWYER PR[employer]ATE, MA, AOCN CC: Gabriella Marte PA-C FAX Electronically signed by Tiara Coronado RN, LAWYER [employer], MA, NORMA 01/06/2025 14:58 CDT * Med Onc Follow-up Note (Amended) Patient Name: MARIO TAM Date Of : 1955 Today's Provider:?Tiara Coronado RN, LAWYER [place], [place], AOLESLIE Date of Service:?09/27/2023 Attending Physician:?Nicole Ya (Hematology/Oncology) Referring Provider: ? HEMATOLOGY/ MEDICAL ONCOLOGY FOLLOW UP VISIT Reason for Visit 1.?Cycle #9 of Phesgo, maintenance, for stage IIA right breast cancer 2.?? Ongoing Nilotinib for CML Assessment 1.?Stage IIA Right breast cancer ???(10/25/2022) Right-sided breast cancer clinically, T1??N1 M0, invasive ductal cancer, ER negative??[very weakly positive], ND negative, HER2/augustus 3+ ?Treatment intent is curative ???Details in HPI, TCHP??stopped early due to toxicity ??? (06/08/2022) Surgery: Right breast lumpectomy??right sentinel lymph node biopsy by Dr. Erickson ??? (06/14/2023???present)??maintenance Phesgo 2. Chronic myelogenous leukemia ???Prior intolerance to imatinib??causing rash. ???Currently taking nilotinib 200 mg daily, she had a rash with 300 mg dose. ???Complete molecular remission??without adverse effects. 3. ??Depression and grief: ???Follows with a psychiatrist ???Working with medical social workerMarilyn ???(09/27/2023)??her unexpectedly 1 year ago 4. ??Peripheral neuropathy ???(09/26/2023) patient continues to have generalized peripheral neuropathy to her feet causing balance issues and neuropathy to her fingertips causing problems with dexterity. Plan 1.?? Breast Cancer: ?Today she will receive cycle #9 of maintenance Phesgo SQ (pertuzumab and trastuzumab) ?She is scheduled for Phesgo on 10/17 and 11/07 ??? Follow-up with Dr. Ya on 12/12 with labs prior to return, 12/02 ??? Echo on 10/15, every 3 months on HER2 directed therapy ??? Due for 3-D Mammo?? within the month, order placed today 2.? CML: ???Continue?? Nilotinib 200 mg, major molecular response ?Recheck labs scheduled 3. ??Peripheral neuropathy: ???I recommended evaluation at [facility] neurology, [place].?? Patient may need an EMG. ?Depending on??findings with neurology,??acupuncture may be beneficial. 4. ??Other: ??? Per patient, she will schedule a routine??colonoscopy??at the end of October Advanced Care Planning 09/03/2019- Not addressed Pain Scale on Today's Visit 0 Pain Plan on Today's Visit Date of Service: 09/27/2023 Pain Scale (0-10): 0 Pain Treatment Plan: No pain reported Comment: Smoking Status Smoking Tobacco : Never smoker; Smokeless Tobacco : Never used smokeless tobacco; Vaping : Never vaped Depression Screening Tool Status Was screened; Outcome positive: No; Screening Date: 07/05/2023; Screening Tool: PRIME MD-PHQ2; Total depression score: 2 History of Present Illness Mario is a [...] ?Lymph node metastatic carcinoma ??? ER negative, ND negative, HER2/augustus 3+ on??breast ??? ER low +1 to 5%, ND -0%, HER2/augustus 3+ lymph node 2.?? 12/24/2022: [...] as patienthad a pathological CR Interval History Today Mario??is taking her mother??and a friend out to celebrate her 89th birthday.?? The past 2 weeks have been somewhat difficult as??her unexpectedly 1 year ago. Level of energy is low and at times she has extreme fatigue, not sure if this is worse right after treatment. ??She is also bothered by ongoing??peripheral neuropathy which started during chemotherapy. ??She has numbness to her feet except the arches of her feet. ??No associated pain??but balance is off. ??She denies falls. ??She has numbness and tingling to her fingertips, some problems with writing.?? No headaches or dizziness. For the past few months she has had intermittent??throbbing to her right breast??usually at night.?? No breast changes on exam.?? She has shoulder problems,??especially on the right due to arthritis.?Range of motion to her right shoulder has decreased.?? Last Ortho visit and imaging of the right shoulder was in 2013. No shortness of breath or cough. ??No chest pain, palpitations or peripheral edema. ??Bowels are regular, no melena or hematochezia. ??No dysuria or hematuria. ??No abnormal bruising or bleeding.?? No headaches or dizziness. Review of Systems Remaining 14 point comprehensive [...] Medication List Name Date Calcium Carbonate Oral 03/01/2023 Sumatriptan Oral 100 mg 03/01/2023 Hydroxyzine HCl Oral 11/28/2022 Prochlorperazine Oral 02/05/2023 Ondansetron Oral 02/05/2023 Atorvastatin Oral 03/13/2022 Propranolol Oral 24 hr Cap 12/31/2018 Dexamethasone Oral 11/09/2022 Furosemide Oral 03/01/2023 Lorazepam Oral 12/12/2022 Montelukast Oral 08/30/2020 Omeprazole Oral Delayed Release Capsule 03/01/2023 Lidocaine-Prilocaine Topical Cream 2.5 % -2.5 % 11/09/2022 Tasigna (Nilotinib Oral) 01/31/2023 Naproxen Sodium Oral 12/31/2018 Magic Mouthwash (Maalox-Visc Lidocaine-B enadryl Elix) 11/24/2022 Bupropion hcl, po solid SR 06/26/2013 Pristiq (Desvenlafaxine Oral 24 hr Tab) 09/11/2022 Allergies imatinib mesylate and topiramate Family History [...] children live??locally-1 son??lives on a farm near [facility]. ??Another son lives about 9 miles away near [place].?? One child lives in [place].?? She is a supportive group of friends.?? 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 Habits:?? Nonsmoker, does not drink ETOH Vital Signs Blood pressure: 118/80, Pulse: 78, Temperature: 97.7 F, Respirations: 16, O2 sat: 97%, Pain Scale: 0, Height: 66.5 in, Weight: 177 lb, BSA: 1.91, BMI: 28.14 kg/m2 Covid-19 vaccine (mon.ki) (03/13/2022), Patient declined/rejected; Flu vaccine - Adult [...] minor signs or symptoms of disease. (Date: 09/27/2023) Physical Exam GENERAL: Patient??does not appear acutely ill, walking independently without an assistive device.??Alert and oriented, mood appropriate.?? She was able to get on and off the exam table with standby assistance ALYSSA: Pupils equal, round, reactive to light. ??Conjunctive are clear. ??Extraocular movement intact.?? LYMPH: No cervical, supraclavicular or axillary lymphadenopathy CV: Regular rate and rhythm. ??No murmurs or gallops noted. ??No pitting edema RESP: Patient does not appear short of breath with conversation. ??Lungs clear to auscultation ABD: Positive bowel sounds, soft, nontender, no masses or organomegaly noted.? DERM: Port without evidence for infection. ??No bruising or petechiae BREAST:??Right??breast with pain to the upper outer quadrant extending into the axilla.?? No palpable mass, nipple discharge or??skin changes. ??Left breast exam benign MSK:??Patient had??pain to the tail of the breast and axilla with raising her arm during her breastexam. ??Range of motion??slightly??decreased and patient reports discomfort with??raising her arms above her head Genetics/Molecular/Biomarkers * Breast cancer, female ( Stage Date: Unknown, Stage IIA (T1b, N1, M0, G2, ER Status: Negative, ND Status: Negative, HER-2/augustus Status: Positive) Histopathologic Type: Ductal invasive carcinoma; Menopausal Status: Postmenopausal; ) * Chronic myeloid leukemia, disease (disorder) ( Stage Date: 06/24/2012, Stage Chronic Phase Date of Dx:05/2012 Disease Status: No evidence of disease; T315I Mutation: Unknown; t(9,22) at Diagnosis: Yes; First record:06/24/2012 Last record:12/31/2018 Other Migrated ICD10: C92.11 ) Additional Labs, Imaging, and Other Studies Lab Results CBC LabResults 07/05/2023 06/04/2023 04/12/2023 03/01/2023 02/08/2023 CBC WBC x 10^3/uL 3.3 6.2 5.3 4.5 9.0 (H) 17.2 (H) RBC x 10^6/uL 3.95 4.27 2.94 (L) 2.57 (L) 2.54 (L) 2.33 (L) NRBC % /100 wbc 0.0 0.0 0.0 0.0 0.0 0.3 (H) HGB g/dL 11.9 12.8 9.4 (L) 8.8 (L) 8.7 (L) 7.9 Critical hematology result obtained (LL) HCT % 36.7 39.5 29.6 (L) 28.5 (L) 27.5 (L) 24.6 (L) MCV fL 92.9 92.5 100.7 110.9 (H) 108.3 (H) 105.6 (H) MCH pg 30.1 30.0 32.0 34.2 34.3 33.9 MCHC g/dL 32.4 32.4 31.8 30.9 31.6 32.1 RDW % 14.10 12.70 12.30 15.70 17.40 (H) 16.70 (H) PLT x 10^3/uL 163 177 167 154 154 123 MPV fL 8.8 (L) 9.3 (L) 9.5 8.2 (L) 8.3 (L) 9.1 (L) Augustus % 58.6 63.9 57.5 49.9 72.4 80.0 (H) LY % 24.3 27.5 28.6 32.0 17.0 9.3 (L) MO % 16.2 (H) 7.9 11.6 14.5 9.4 8.4 EO % 0.3 0.2 1.5 2.5 0.3 0.0 BA % 0.3 0.3 0.4 0.4 0.0 0.1 IG % 0.3 0.2 0.4 0.7 (H) 0.9 (H) 2.2 (H) Augustus # (ANC) x 10^3/uL 2.0 4.0 3.0 2.2 6.5 13.8 (H) LY # x 10^3/uL 0.8 1.7 1.5 1.4 1.5 1.6 MO # x 10^3/uL 0.5 0.5 0.6 0.7 0.8 1.5 (H) EO # x 10^3/uL 0.0 0.0 0.1 0.1 0.0 0.0 BA # x 10^3/uL 0.0 0.0 0.0 0.0 0.0 0.0 IG # x 10^3/uL 0.01 0.01 0.02 0.03 0.08 (H) 0.38 (H) Chemistries LabResults 07/05/2023 06/04/2023 04/12/2023 03/01/2023 02/08/2023 Chemistries Glucose mg/dL 97 85 136 (H) 129 (H) BUN mg/dL 15.0 14.0 9.0 8.0 (L) Creatinine mg/dL 1.06 0.86 0.98 0.86 Creatinine, iSTAT mg/dL 0.8 Sodium mmol/L 143 146 (H) 147 (H) 144 Potassium mmol/L 4.4 3.8 4.3 3.6 Potassium, iSTAT mmol/L 3.8 3.8 Chloride mmol/L 109 110 113 111 Sodium, iSTAT mmol/L 139 Chloride, iSTAT mmol/L 100 CO2 mmol/L 25 24 21 21 Calcium mg/dL 10.4 9.1 8.5 (L) 8.3 (L) Albumin g/dL 4.4 3.8 3.4 3.2 Total protein g/dL 6.4 5.6 (L) 5.2 (L) 4.8 (L ) Bilirubin, total mg/dL 0.5 0.3 0.5 0.3 Alkaline phosphatase U/L 107 90 89 85 AST/SGOT U/L 23 18 18 16 ALT/SGPT U/L 26 17 15 24 GFR estimate mL/min/1.73m2 56.7 (L) 73.0 62.4 73.0; 79.7 Magnesium, mg/dL 1.5 ? Surveys/Consents/Other Discussions The patient verbalized understanding of plan of care. Patient will be seen as above, sooner if needed. ??35 minutes ??? 30 minutes history and physical, symptom management??reviewing treatment plan and follow-up, placing orders ???5 minutes chart review and documentation Tiara Coronado RN, JOAN, SPIKE, NORMA CC: Gabriella Marte PA-C FAX Electronically signed by Tiara Coronado RN, JOAN, SPIKE, NORMA 09/27/2023 12:44 CDT
--- OUTSIDE RECORDS SUMMARY | 2025-02-08 13:43 | XMS_ITS ---
Author Name Interface, [email or web address] lity Address [address] [place] [address] Oncology Address [facility] [address] Allergies and Adverse Reactions Plan Reason for Visit Encounters Immunizations Diagnostic Results Medications Problems Vital Signs
--- OUTSIDE RECORDS SUMMARY | 2025-02-08 13:44 | XMS_ITS ---
Author Name Interface, X1Rnwhxre lity Address [address] [facility] [address] [address] [facility] Address [address] [facility] [address] [address] Allergies and Adverse Reactions Medication/Group Name Reaction [...] 03/22/2023 APPOINTMENT TREATMENT 2 HR 03/13/2023 APPOINTMENT HALFWAY FOLLOW UP 20 MIN 03/13/2023 APPOINTMENT LAB [...] all possible fusionfor ms. Please contact the [facility] or[facility] at with questions or if additiona ltesting is required. See the [facility] Laborator iesInterp retive Handbook for method [...] its performan ce character isticsdet ermined by [facility] in a manner consisten t with CLIArequi rements. This test has not been cleared or approved bythe U.S. Food and Drug Administr ation.Jane t Performed by:[facility] - [address] [address]Tkb Director: Michael Reid M.D. Ph.D.; CLIA# [id number] 2 FINAL Kennedy Unglaub 08/23 CMP Album in g/dL 3.2 5.2 4.4 FINAL Kennedy Jenna Carmonaot a Oncology [facility], [address] [facility] [address] [place] [address] [phone] Phone: () - 08/23 CMP Alkal ine phosp hatas e U/L 46.0 116.0 91 FINAL Kennedy Unglaub [place] [facility], [address] [facility] [address] [phone] 0 Phone: () - 08/23 CMP ALT/S GPT U/L 7.0 40.0 19 FINAL Kennedy muñoz [place] [address] [phone] 0 Phone: () - 08/23 CMP AST/S GOT U/L 13.0 40.0 22 FINAL Kennedy muñoz [place] [address] [phone] 0 Phone: () - 08/23 CMP BUN mg/dL 9.0 23.0 16 FINAL Kennedy [place] [address] [phone] 0 Phone: () - 08/23 CMP Calci um mg/dL 8.7 10.4 9.8 FINAL [place] [address] [phone] 0 Phone: () - 08/23 CMP CO2 [...] hour stability window. FINAL Kennedy Carmona toni [place] [address] [phone] 0 Phone: () - 08/23 CMP Creat inine mg/dL 0.5 1.2 0.99 FINAL Kennedy Carmona toni [place] [address] [phone] 0 Phone: () - 08/23 CMP GFR estim ate ml/min /1.73m ^2 62.3 GFR is calculate d using the CKD-EPI equation. FINAL Kennedy [place] [address] [phone] 0 Phone: () - 08/23 CMP Gluco se mg/dL 73.0 126.0 100 FINAL [facility] [address] [facility] [address] [facility] [phone] 0 Phone: () - 08/23 CMP Potas sium mmol/L 3.5 5.1 4.4 FINAL Kennedy Carmona toni [facility], [address] [facility] [address] [facility] [phone] 0 Phone: () - 08/23 CMP Sodiu m mmol/L 136.0 145.0 144 FINAL [facility], [address] [facility] 100 [facility] [phone] 0 Phone: () - 08/23 CMP Bilir ubin, total mg/dL 0.3 1.2 0.7 FINAL [facility], [address] [facility] [address] [facility] [phone] 0 Phone: () - 08/23 CMP Chlor rakan mmol/L 96.0 114.0 108 FINAL [facility], [address] [facility] [address] [facility] [phone] 0 Phone: () - 08/23 CMP Total prote in g/dL 5.7 8.2 6.5 FINAL [facility], [address] [facility] 100 [facility] [phone] 0 Phone: () - 08/23 CBC w/ auto diff WBC K/uL 3.0 8.9 4.5 FINAL Kennedy [address] [place] [phone] 0 Phone: () - 08/23 CBC w/ auto diff HGB g/dL 11.3 15.2 13.8 FINAL Kennedy Carmona[address] [place] [phone] 0 Phone: () - 08/23 CBC w/ auto diff PLT K/uL 113.0 364.0 150 FINAL Kennedy West [address] 210 [facility] [phone] 0 Phone: () - 08/23 CBC w/ auto diff Augustus # (ANC) K/uL 1.6 6.6 2.4 FINAL Kennedy Carmonaot a [facility], [address] [place] [address] 210 [facility] [phone] 0 Phone: () - 08/23 CBC w/ auto diff Augustus % % 43.0 74.0 53.6 FINAL Kennedy Carmonaot a [facility], [address] [place] [address] [address] [facility] [phone] 0 Phone: () - 08/23 CBC w/ auto diff IG % % 0.0 0.5 0.2 FINAL Kennedy Carmonaot a [facility], [address] [place] [address] [address] [facility] [phone] 0 Phone: () - 08/23 CBC w/ auto diff IG # K/uL 0.0 0.03 0.01 FINAL Kennedy Carmonaot a [facility], [address] [place] [address] [address] [facility] [phone] 0 Phone: () - 08/23 CBC w/ auto diff LY % % 14.0 41.0 32.2 FINAL Kennedy Carmonaot a [facility], [address] [place] [address] 210 [facility] [phone] 0 Phone: () - 08/23 CBC w/ auto diff MO % % 6.0 15.0 11.3 FINAL Kennedy Carmonaot a [facility], [address] [place] [address] [address] [facility] [phone] 0 Phone: () - 08/23 CBC w/ auto diff EO % % 0.0 7.0 1.8 FINAL Kennedy Jenna Carmonaot a [facility], [address] [place] [address] [address] [facility] [phone] 0 Phone: () - 08/23 CBC w/ auto diff BA % % 0.0 2.0 0.9 FINAL Kennedy Jenna Carmonaot a [facility], [address] [place] [address] [address] [facility] [phone] 0 Phone: () - 08/23 CBC w/ auto diff LY # K/uL 0.4 3.6 1.5 FINAL Kennedy Ungmichaelub [place] [facility] - [place], [address] [place] [address] [address] [place] [phone] 0 Phone: () - 08/23 CBC w/ auto diff MO # K/uL 0.2 1.3 0.5 FINAL Kennedy Ungmichaelub [place] [facility] [place], [address] [place] [address] [address] [place] [phone] 0 Phone: () - 08/23 CBC w/ auto diff EO # K/uL 0.0 0.6 0.1 FINAL Kennedy Ungmichaelub [place] [facility] [place], [address] [place] [address] [address] [place] [phone] 0 Phone: () - 08/23 CBC w/ auto diff BA # K/uL 0.0 0.2 0.0 FINAL Kennedy Doloresub [place] [facility] [place], [address] [place] [address] [address] [place] [phone] 0 Phone: () - 08/23 CBC w/ auto diff NRBC % #/100W BC 0.0 0.2 0.0 FINAL Kennedy Doloresub [place] [facility] - [place], [address] [place] [address] [address] [place] [phone] 0 Phone: () - 08/23 CBC w/ auto diff RBC M/uL 3.9 5.1 4.34 FINAL Kennedy Doloresub [place] [facility] - [place], [address] [place] [address] 210 [place] [phone] 0 Phone: () - 08/23 CBC w/ auto diff HCT % 35.0 48.0 41.0 FINAL Kennedy Doloresub [place] [facility] - [place], [address] [place] [address] 210 [place] [phone] 0 Phone: () - 08/23 CBC w/ auto diff MCV fL 80.0 104.0 94.5 FINAL Kennedy Ungmichaelub [place] [facility] - [place], [address] [place] [address] 210 [place] [phone] 0 Phone: () - 08/23 CBC w/ auto diff MCH pg 26.0 35.0 31.8 FINAL Kennedy Ungmichaelub [place] [facility] [place], [address] [place] [address] 210 [facility] [phone] 0 Phone: () - 08/23 CBC w/ auto diff MCHC g/dL 30.0 35.0 33.7 FINAL [facility] [address] [place] [address] 210 [facility] [phone] 0 Phone: () - 08/23 CBC w/ auto diff MPV fL 9.5 13.4 9.5 FINAL Kennedy West [address] 210 [facility] [phone] 0 Phone: () - 08/23 CBC w/ auto diff RDW % 11.4 16.1 12.80 FINAL Kennedy Carmona[address] 210 [facility] [phone] 0 Phone: () - 03/13 CMP Album in g/dL 3.2 5.2 4.5 FINAL Ruiz Raya [place] [address] [phone] 0 Phone: () - 03/13 CMP Alkal ine phosp hatas e U/L 46.0 116.0 103 FINAL Ru[place] [address] [phone] 0 Phone: () - 03/13 CMP ALT/S GPT U/L 7.0 40.0 19 FINAL Ruiz Raya [place] [address] [phone] 0 Phone: () - 03/13 CMP AST/S GOT U/L 13.0 40.0 23 FINAL Ruiz Raya [place] [address] [phone] 0 Phone: () - 03/13 CMP BUN mg/dL 9.0 23.0 13 FINAL Ruiz Raya [place] [address] [id number] 0 Phone: () - 03/13 CMP Calci um mg/dL 8.7 10.4 10.5 High FINAL Ruiz Raya [facility] [address] [phone] 0 Phone: () - 03/13 CMP Chlor rakan mmol/L 96.0 114.0 107 FINAL Ruiz Ter[place] [address] [phone] 0 Phone: () - 03/13 CMP CO2 [...] the 96 hour stability window. FINAL [place] [address] [phone] 0 Phone: () - 03/13 CMP Creat inine mg/dL 0.5 1.2 1.25 High FINAL Ruiz Raya [address] [phone] 0 Phone: () - 03/13 CMP GFR estim ate ml/min /1.73m ^2 46.9 Low GFR is calculate d using the CKD-EPI equation. FINAL [place] [address] [phone] 0 Phone: () - 03/13 CMP Gluco se mg/dL 73.0 126.0 111 FINAL Ruiz Raya [place] [address] [phone] 0 Phone: () - 03/13 CMP Potas sium mmol/L 3.5 5.1 4.2 FINAL Ruiz Raya [address] [phone] 0 Phone: () - 03/13 CMP Sodiu m mmol/L 136.0 145.0 144 FINAL Ruiz Raya [place] [address] [phone] 0 Phone: () - 03/13 CMP Bilir ubin, total mg/dL 0.3 1.2 0.8 FINAL Ru[facility], [address] [facility] [address] [facility] [phone] 0 Phone: () - 03/13 CMP Total prote in g/dL 5.7 8.2 6.7 FINAL Ruiz Raya [facility] a [facility], [address] [facility] [address] [facility] [phone] 0 Phone: () - 03/13 BCR/A BL1, p210 Resul t see interpr etation FINAL Ruiz Raya 03/13 Speci men Type edta whole blood FINAL [facility] 03/13 Final Diagn osis: SEE COMMENT S [...] all possible fusionfor ms. Please contact the [facility] oratory at with questions or if additiona ltesting is required. See the [facility] Laborator iesInterp retive Handbook for method [...] its performan ce character isticsdet ermined by [facility] in a manner consisten t with CLIArequi rements. This test has not been cleared or approved bythe U.S. Food and Drug Administr ation.Jane t Performed by:[facility] - [address] [address]Tts Director: Michael Reid M.D. Ph.D.; CLIA# [id number] 2 FINAL Ruiz Raya 03/13 CBC w/ auto diff HGB g/dL 11.3 15.2 14.6 FINAL Ruiz [facility]a [facility] [place], [address] [facility] 210 [facility] [phone] 0 Phone: () - 03/13 CBC w/ auto diff Augustus # (ANC) K/uL 1.6 6.6 5.3 FINAL [facility] [address] [place] [address] 210 [facility] [phone] 0 Phone: () - 03/13 CBC w/ auto diff IG % % 0.0 0.5 0.3 FINAL [facility] [address] [place] [address] [address] [place] [phone] 0 Phone: () - 03/13 CBC w/ auto diff IG # K/uL 0.0 0.03 0.02 FINAL [facility], [address] [place] [address] [address] [facility] [phone] 0 Phone: () - 03/13 CBC w/ auto diff MO % % 6.0 15.0 9.4 FINAL [facility], [address] [place] [address] [address] [facility] [phone] 0 Phone: () - 03/13 CBC w/ auto diff WBC K/uL 3.0 8.9 7.7 FINAL [facility], [address] [place] [address] [address] [place] [phone] 0 Phone: () - 03/13 CBC w/ auto diff PLT K/uL 113.0 364.0 160 FINAL [facility], [address] [place] [address] [address] [place] [phone] 0 Phone: () - 03/13 CBC w/ auto diff Augustus % % 43.0 74.0 69.5 FINAL [facility], [address] [place] [address] [address] [place] [phone] 0 Phone: () - 03/13 CBC w/ auto diff LY % % 14.0 41.0 19.5 FINAL [facility], [address] [place] [address] [address] [place] [phone] 0 Phone: () - 03/13 CBC w/ auto diff EO % % 0.0 7.0 0.9 FINAL [facility], [address] [place] [address] [address] [place] [phone] 0 Phone: () - 03/13 CBC w/ auto diff BA % % 0.0 2.0 0.4 FINAL Ruiz muñoz [facility], [address] [place] [address] 210 [facility] [phone] 0 Phone: () - 03/13 CBC w/ auto diff LY # K/uL 0.4 3.6 1.5 FINAL [facility], [address] [place] [address] [address] [facility] [id number] 0 Phone: () - 03/13 CBC w/ auto diff MO # K/uL 0.2 1.3 0.7 FINAL Ruiz [facility], [address] [place] [address] [address] [facility] [id number] 0 Phone: () - 03/13 CBC w/ auto diff EO # K/uL 0.0 0.6 0.1 FINAL [facility], [address] [place] [address] [address] [facility] [phone] 0 Phone: () - 03/13 CBC w/ auto diff BA # K/uL 0.0 0.2 0.0 FINAL [facility], [address] [place] [address] [address] [facility] [phone] 0 Phone: () - 03/13 CBC w/ auto diff NRBC % #/100W BC 0.0 0.2 0.0 FINAL [facility], [address] [place] [address] [address] [facility] [id number] 0 Phone: () - 03/13 CBC w/ auto diff RBC M/uL 3.9 5.1 4.58 FINAL [facility], [address] [place] [address] [address] [place] [phone] 0 Phone: () - 03/13 CBC w/ auto diff HCT % 35.0 48.0 45.2 FINAL [facility], [address] [place] [address] [address] [place] [phone] 0 Phone: () - 03/13 CBC w/ auto diff MCV fL 80.0 104.0 98.7 FINAL Ruiz muñoz [facility], [address] [facility] 210 [facility] [phone] 0 Phone: () - 03/13 CBC w/ auto diff MCH pg 26.0 35.0 31.9 FINAL Ruiz muñoz [facility], [address] [place] [address] [address] [place] [phone] 0 Phone: () - 03/13 CBC w/ auto diff MCHC g/dL 30.0 35.0 32.3 FINAL Ruiz muñoz [facility], [address] [place] [address] [address] [place] [phone] 0 Phone: () - 03/13 CBC w/ auto diff MPV fL 9.5 13.4 9.7 FINAL Ruiz muñoz [facility], [address] [place] [address] [address] [place] [phone] 0 Phone: () - 03/13 CBC w/ auto diff RDW % 11.4 16.1 12.90 FINAL Ruiz muñoz [facility], [address] [place] [address] 210 [facility] [phone] 0 Phone: () - 09/11 CMP Album in g/dL 3.2 5.2 4.5 FINAL Kennedy [place] [address] [phone] 0 Phone: () - 09/11 CMP Alkal ine phosp hatas e U/L 46.0 116.0 111 FINAL Kennedy [place] [address] [phone] 0 Phone: () - 09/11 CMP ALT/S GPT U/L 7.0 40.0 22 FINAL Kennedy [place] [address] [id number] 0 Phone: () - 09/11 CMP AST/S GOT U/L 13.0 40.0 20 FINAL Kennedy [place] [address] [phone] 0 Phone: () - 09/11 CMP BUN mg/dL 9.0 23.0 10.0 FINAL Kennedy muñoz [facility], [address] [facility] [phone] 0 Phone: () - 09/11 CMP Calci um mg/dL 8.7 10.4 9.7 FINAL Kennedy muñoz [facility], [address] [facility] [phone] 0 Phone: () - 09/11 CMP Chlor rakan mmol/L 96.0 114.0 109 FINAL Kennedy muñoz [facility], [address] [facility] [phone] 0 Phone: () - 09/11 CMP CO2 [...] 96 hour stability window. FINAL Kennedy muñoz [facility], [address] [phone] 0 Phone: () - 09/11 CMP Creat inine mg/dL 0.5 1.2 1.05 FINAL Kennedy Carmona toni [place] [address] [address] [facility] [address] [place] [address] [phone] 0 Phone: () - 09/11 CMP GFR estim ate ml/min /1.73m ^2 57.6 Low GFR is calculate d using the CKD-EPI equation. FINAL Kennedy muñoz [facility], [address] [facility] [address] [place] [address] [phone] 0 Phone: () - 09/11 CMP Gluco se mg/dL 73.0 126.0 104 FINAL Kennedy Carmona toni [facility], [address] [facility] [id number] 0 Phone: () - 09/11 CMP Potas sium mmol/L 3.5 5.1 4.3 FINAL Kennedy Carmona toni [facility], [address] [facility] [address] [facility] [phone] 0 Phone: () - 09/11 CMP Sodiu m mmol/L 136.0 145.0 145 FINAL Kennedy Carmonaot a On[facility], [address] [facility] 100 [facility] [phone] 0 Phone: () - 09/11 CMP Bilir ubin, total mg/dL 0.3 1.2 0.9 FINAL Kennedy Carmonaot a Oncology [facility], [address] [facility] 100 [facility] [phone] 0 Phone: () - 09/11 CMP Total prote in g/dL 5.7 8.2 6.9 FINAL Kennedy Carmonaot a [facility], [address] [phone] 0 Phone: () - 09/11 PRIOR RESUL T Not Given FINAL Kennedy Bernalub [facility] [address] [place] [id number] 4 09/11 SOUR E: Periphe ral Blood FINAL Kennedy Bernalub [facility], [facility] [address] [place] [id number] 4 09/11 BCR ABL1/ ABL1 % % 0.000 FINAL Kennedy West [facility], [facility] [address] [place] [id number] 4 09/11 BCR ABL1/ ABL1 % (IS) % 0.000 FINAL Kennedy West [facility] [address] [place] [id number] 4 09/11 INTER PRETA TION see note [...] l informati on, please refer tohttp:// education .[employer]/faq/F AQ72(This link is being provided forinform ational/e ducationa l purposes only.)Ass ay sensitivi ty is at least 4.5-logs below baselineB CR-ABL1 transcrip t levels but is dependent onquantit y and quality of RNA used for testing and thecellul arity of the sample.Th is test was developed and its analytica lperforma nce character istics have been determine dby [facility] [place], [place].It has not been cleared or approved by the FDA. Thisassay has been validated pursuant to the CLIAregul ations and is used for clinical purposes. Meera drake, Ph.D., [facility] Director, Molecular Oncology FINAL Kennedy Bernalroselyn [facility], [facility] [address] [place] [id number] 4 09/11 P190 BCR ABL1 Not Detecte d FINAL Kennedy Rothlaub [facility], [facility] [address] [place] [id number] 4 09/11 P210 BCR ABL1 Not Detecte d FINAL Kennedy Bernalub [facility], [facility] [address] [place] [id number] 4 09/11 CBC w/ auto diff WBC K/uL 3.0 8.9 5.7 FINAL Kennedy Bernalroselyn [place] [facility] - [address] [facility] [phone] 0 Phone: () - 09/11 CBC w/ auto diff HGB g/dL 11.3 15.2 13.8 FINAL [place]roselyn [place] [address] [facility] [phone] 0 Phone: () - 09/11 CBC w/ auto diff PLT K/uL 113.0 364.0 167 FINAL Kennedy Ungmichaelub [place] [facility] [place], [address] [place] [address] 210 [facility] [phone] 0 Phone: () - 09/11 CBC w/ auto diff Augustus # (ANC) K/uL 1.6 6.6 3.7 FINAL Kennedy Unglaub [place] [facility] [place], [address] [place] [address] [address] [facility] [phone] 0 Phone: () - 09/11 CBC w/ auto diff Augustus % % 43.0 74.0 64.2 FINAL [place] Unglaub [place] [facility], [address] [place] [address] [address] [facility] [phone] 0 Phone: () - 09/11 CBC w/ auto diff IG % % 0.0 0.5 0.2 FINAL Kennedy Unglaub [place] [facility], [address] [place] [address] [address] [facility] [phone] 0 Phone: () - 09/11 CBC w/ auto diff IG # K/uL 0.0 0.03 0.01 FINAL Kennedy Unglaub [place] [facility], [address] [place] [address] [address] [facility] [phone] 0 Phone: () - 09/11 CBC w/ auto diff LY % % 14.0 41.0 24.0 FINAL Kennedy Unglaub [place] [facility], [address] [place] [address] [address] [facility] [phone] 0 Phone: () - 09/11 CBC w/ auto diff MO % % 6.0 15.0 9.9 FINAL Kennedy Unglaub [place] [facility], [address] [place] [address] [address] [facility] [phone] 0 Phone: () - 09/11 CBC w/ auto diff EO % % 0.0 7.0 1.2 FINAL Kennedy Unglaub [place] [facility] [place], [address] [place] [address] 210 [place] [phone] 0 Phone: () - 09/11 CBC w/ auto diff BA % % 0.0 2.0 0.5 FINAL Kennedy Unglaub [place] [facility] [place], [address] [place] [address] 210 [place] [phone] 0 Phone: () - 09/11 CBC w/ auto diff LY # K/uL 0.4 3.6 1.4 FINAL Kennedy Carmonaot a Oncology - [place], [address] [place] [address] 210 [place] [phone] 0 Phone: () - 09/11 CBC w/ auto diff MO # K/uL 0.2 1.3 0.6 FINAL [address]eddie Carmonaot a [facility] [place], [address] [place] [address] 210 [place] [phone] 0 Phone: () - 09/11 CBC w/ auto diff EO # K/uL 0.0 0.6 0.1 FINAL Kennedy Carmonaot a [facility], [address] [place] [address] 210 [place] [phone] 0 Phone: () - 09/11 CBC w/ auto diff BA # K/uL 0.0 0.2 0.0 FINAL Kennedy Carmonaot a [facility], [address] [place] [address] [address] [place] [phone] 0 Phone: () - 09/11 CBC w/ auto diff NRBC % #/100W BC 0.0 0.2 0.0 FINAL Kennedy Carmonaot a [facility], [address] [place] [address] [address] [place] [phone] 0 Phone: () - 09/11 CBC w/ auto diff RBC M/uL 3.9 5.1 4.38 FINAL Kennedy Carmonaot a [facility], [address] [place] [address] 210 [place] [phone] 0 Phone: () - 09/11 CBC w/ auto diff HCT % 35.0 48.0 42.8 FINAL Kennedy Carmonaot a [facility], [address] [place] [address] 210 [place] [phone] 0 Phone: () - 09/11 CBC w/ auto diff MCV fL 80.0 104.0 97.7 FINAL Kennedy Carmonaot a [facility], [address] [place] [address] 210 [place] [phone] 0 Phone: () - 09/11 CBC w/ auto diff MCH pg 26.0 35.0 31.5 FINAL Kennedy Carmonaot a Oncology [facility], [address] [place] [address] 210 [place] [phone] 0 Phone: () - 09/11 CBC w/ auto diff MCHC g/dL 30.0 35.0 32.2 FINAL Kennedy Carmonaot a [address] [place] [phone] 0 Phone: () - 09/11 CBC w/ auto diff MPV fL 9.5 13.4 9.3 Low FINAL Kennedy West [address] [place] [phone] 0 Phone: () - 09/11 CBC w/ auto diff RDW % 11.4 16.1 12.70 FINAL Kenneyd Carmona[address] [place] [phone] 0 Phone: () - 11/16 iSTAT creat inine panel Creat inine , iSTAT mg/dl 0.6 1.3 0.9 FINAL Nicole Ya Mathewdamaris a Oncology - [place], [address] [facility] [place] [phone] 0 Phone: () - 11/16 iSTAT creat inine panel GFR estim ate ml/min /1.73m ^2 69.3 GFR is calculate d using the CKD-EPI equation. FINAL Nicole Felton [facility] a Oncology - [place], [address] [place] [phone] 0 Phone: () - 11/16 CBC w/ auto diff WBC K/uL 3.0 8.9 7.6 FINAL Nicole Felton [facility] - [place], [address] [place] [phone] 0 Phone: () - 11/16 CBC w/ auto diff HGB g/dL 11.3 15.2 13.4 FINAL Nicole Ya Mathewdamaris a Oncology - [place], [address] [place] [phone] 0 Phone: () - 11/16 CBC w/ auto diff PLT K/uL 113.0 364.0 162 FINAL Nicole Carmonaot a Oncology - [place], [address] [place] [phone] 0 Phone: () - 11/16 CBC w/ auto diff Augustus # (ANC) K/uL 1.6 6.6 6.7 High FINAL Nicole Carmonaot a Oncology - [place], [address] [place] [phone] 0 Phone: () - 11/16 CBC w/ auto diff Augustus % % 43.0 74.0 88.7 High FINAL Nicole Carmonaot a Oncology - [place], [address] [place] [phone] 0 Phone: () - 11/16 CBC w/ auto diff IG % % 0.0 0.5 0.7 High FINAL Nicole Terrazas a Oncology - [place], [address] [place] [phone] 0 Phone: () - 11/16 CBC w/ auto diff IG # K/uL 0.0 0.03 0.05 High FINAL Nicole Terrazas a Oncology - [place], [address] [address] [place] [phone] 0 Phone: () - 11/16 CBC w/ auto diff LY % % 14.0 41.0 8.8 Low FINAL Nicole Terrazas [facility] [place], [address] [place] [id number] 0 Phone: () - 11/16 CBC w/ auto diff MO % % 6.0 15.0 1.8 Low FINAL Nicole Carmonaot [facility] - [place], [address] [place] [id number] 0 Phone: () - 11/16 CBC w/ auto diff EO % % 0.0 7.0 0.0 FINAL Nicole Carmonaot [facility] - [place], [address] [place] [id number] 0 Phone: () - 11/16 CBC w/ auto diff BA % % 0.0 2.0 0.0 FINAL Nicole Carmonaot [facility] - [place], [address] [place] [phone] 0 Phone: () - 11/16 CBC w/ auto diff LY # K/uL 0.4 3.6 0.7 FINAL Nicole Carmonaot [facility] - [place], [address] [place] [phone] 0 Phone: () - 11/16 CBC w/ auto diff MO # K/uL 0.2 1.3 0.1 Low FINAL Nicole Carmonaot [facility] - [place], [address] [place] [id number] 0 Phone: () - 11/16 CBC w/ auto diff EO # K/uL 0.0 0.6 0.0 FINAL Nicole Carmonaot [facility] - [place], [address] [place] [id number] 0 Phone: () - 11/16 CBC w/ auto diff BA # K/uL 0.0 0.2 0.0 FINAL Nicole Terrazas [facility] [place], [address] [place] [id number] 0 Phone: () - 11/16 CBC w/ auto diff NRBC % #/100W BC 0.0 0.2 0.0 FINAL Nicole Carmonaot [facility] - [place], [address] [place] [id number] 0 Phone: () - 11/16 CBC w/ auto diff RBC M/uL 3.9 5.1 4.16 FINAL Nicole Carmonaot [facility] - [place], [address] [place] [id number] 0 Phone: () - 11/16 CBC w/ auto diff HCT % 35.0 48.0 39.7 FINAL Nicole muñoz [facility] - [place], [address] [facility] [address] [place] [id number] 0 Phone: () - 11/16 CBC w/ auto diff MCV fL 80.0 104.0 95.4 FINAL Nicole muñoz [facility] - [place], [address] [facility] [address] [place] [id number] 0 Phone: () - 11/16 CBC w/ auto diff MCH pg 26.0 35.0 32.2 FINAL Nicole muñoz [facility] - [place], [address] [facility] [address] [place] [id number] 0 Phone: () - 11/16 CBC w/ auto diff MCHC g/dL 30.0 35.0 33.8 FINAL Nicole muñoz [facility] - [place], [address] [facility] d [address] [place] [id number] 0 Phone: () - 11/16 CBC w/ auto diff MPV fL 9.5 13.4 9.3 Low FINAL Nicole muñoz [facility] - [place], [address] [facility] [address] [place] [id number] 0 Phone: () - 11/16 CBC w/ auto diff RDW % 11.4 16.1 11.90 FINAL Nicole muñoz [facility] - [place], [address] [facility] [address] [place] [id number] 0 Phone: () - 11/16 CMP Album in g/dL 3.2 5.2 4.5 FINAL Nicole Carmonadamaris muñoz [facility] - [place], [address] [place] [id number] 0 Phone: () - 11/16 CMP Alkal ine phosp hatas e U/L 46.0 116.0 91 FINAL Nicole Ya Mathewdamaris muñoz [facility] - [place], [address] [place] [id number] 0 Phone: () - 11/16 CMP ALT/S GPT U/L 7.0 40.0 15 FINAL [facility] [address] [facility] [address] [id number] 0 Phone: () - 11/16 CMP AST/S GOT U/L 13.0 40.0 18 FINAL Nicole Terrazas [place] [address] [address] [facility] [address] [id number] 0 Phone: () - 11/16 CMP BUN mg/dL 9.0 23.0 16.0 FINAL [place] [address] [id number] 0 Phone: () - 11/16 CMP Calci um mg/dL 8.7 10.4 9.8 FINAL [place] [address] [id number] 0 Phone: () - 11/16 CMP Chlor rakan mmol/L 96.0 114.0 109 FINAL [place] [address] [id number] 0 Phone: () - 11/16 CMP CO2 [...] the 96 hour stability window. FINAL [facility], [facility] N [address] [id number] 0 Phone: () - 11/16 CMP Creat inine mg/dL 0.5 1.2 0.88 FINAL Nicoledarius Ya [place] [address] [id number] 0 Phone: () - 11/16 CMP GFR estim ate ml/min /1.73m ^2 71.2 GFR is calculate d using the CKD-EPI equation. FINAL [place] [address] [id number] 0 Phone: () - 11/16 CMP Gluco se mg/dL 73.0 126.0 152 High FINAL [place] [address] [id number] 0 Phone: () - 11/16 CMP Potas sium mmol/L 3.5 5.1 4.2 FINAL [place] [address] [id number] 0 Phone: () - 11/16 CMP Sodiu m mmol/L 136.0 145.0 142 FINAL Nicole [place] [address] [id number] 0 Phone: () - 11/16 CMP Bilir ubin, total mg/dL 0.3 1.2 0.6 FINAL [place] [address] [id number] 0 Phone: () - 11/16 CMP Total prote in g/dL 5.7 8.2 6.8 FINAL [place] [address] [id number] 0 Phone: () - 11/21 CMP Album in g/dL 3.2 5.2 3.9 FINAL [place] [address] [id number] 0 Phone: () - 11/21 CMP Alkal ine phosp hatas e U/L 46.0 116.0 90 FINAL Nicoledarius [place] [address] [id number] 0 Phone: () - 11/21 CMP ALT/S GPT U/L 7.0 40.0 37 FINAL Nicole [place] [address] [id number] 0 Phone: () - 11/21 CMP AST/S GOT U/L 13.0 40.0 31 FINAL Nicoledarius [place] [address] [address] [facility] [address] [id number] 0 Phone: () - 11/21 CMP BUN mg/dL 9.0 23.0 13.0 FINAL Nicole Terrazas [place] [address] [address] [facility] [address] [facility] [id number] 0 Phone: () - 11/21 CMP Calci um mg/dL 8.7 10.4 8.9 FINAL [facility] [address] [facility] 100 [facility] [id number] 0 Phone: () - 11/21 CMP Chlor rakan mmol/L 96.0 114.0 107 FINAL [place] [address] [address] [facility] 100 [facility] [id number] 0 Phone: () - 11/21 CMP CO2 [...] the 96 hour stability window. FINAL [place] [address] [address] [facility] 100 [facility] [id number] 0 Phone: () - 11/21 CMP Creat inine mg/dL 0.5 1.2 0.83 FINAL [place] [address] [address] [facility] 100 [facility] [id number] 0 Phone: () - 11/21 CMP GFR estim ate ml/min /1.73m ^2 76.3 GFR is calculate d using the CKD-EPI equation. FINAL Nicole Terrazas [facility], [facility] [address] [facility] [address] [facility] [id number] 0 Phone: () - 11/21 CMP Gluco se mg/dL 73.0 126.0 99 FINAL [facility], [address] [facility] 100 [facility] [id number] 0 Phone: () - 11/21 CMP Potas sium mmol/L 3.5 5.1 3.8 FINAL [facility], [address] [facility] [id number] 0 Phone: () - 11/21 CMP Sodiu m mmol/L 136.0 145.0 142 FINAL Nicole muñoz [facility], [address] [place] [id number] 0 Phone: () - 11/21 CMP Bilir ubin, total mg/dL 0.3 1.2 1.3 High FINAL Nicole muñoz [facility], [address] [facility] [id number] 0 Phone: () - 11/21 CMP Total prote in g/dL 5.7 8.2 6.0 FINAL Nicole muñoz [facility], [address] [facility] [address] [place] [id number] 0 Phone: () - 11/21 CBC w/ auto diff WBC K/uL 3.0 8.9 1.0 Low FINAL Nicole muñoz [facility] - [place], [address] [place] [address] [address] [facility] [place] [id number] 0 Phone: () - 11/21 CBC w/ auto diff HGB g/dL 11.3 15.2 13.2 FINAL Nicole muñoz [facility] - [place], [address] [place] [address] [address] [facility] [place] [id number] 0 Phone: () - 11/21 CBC w/ auto diff PLT K/uL 113.0 364.0 47 Critica l hematol ogy result obtaine d Criti todd Low FINAL Nicole muñoz [facility] - [place], [address] [place] [address] [address] [place] [id number] 0 Phone: () - 11/21 CBC w/ auto diff Augustus # (ANC) K/uL 1.6 6.6 0.4 Critica l hematol ogy result obtaine d Criti todd Low FINAL Nicole Terrazas [facility] - [place], [address] [facility] [address] [place] [id number] 0 Phone: () - 11/21 CBC w/ auto diff Augustus % % 43.0 74.0 34.7 Low FINAL Nicole Carmonaot a [facility] - [place], [address] [place] [id number] 0 Phone: () - 11/21 CBC w/ auto diff IG % % 0.0 0.5 1.9 High FINAL Nicole Carmonaot [facility] - [place], [address] [place] [id number] 0 Phone: () - 11/21 CBC w/ auto diff IG # K/uL 0.0 0.03 0.02 FINAL Nicole Carmonaot [facility] - [place], [address] [place] [id number] 0 Phone: () - 11/21 CBC w/ auto diff LY % % 14.0 41.0 56.7 High FINAL Nicole Carmonaot [facility] - [place], [address] [place] [id number] 0 Phone: () - 11/21 CBC w/ auto diff MO % % 6.0 15.0 1.9 Low FINAL Nicole Terrazas [facility] - [place], [address] [place] [id number] 0 Phone: () - 11/21 CBC w/ auto diff EO % % 0.0 7.0 1.9 FINAL Nicole Terrazas [facility] - [place], [address] [place] [id number] 0 Phone: () - 11/21 CBC w/ auto diff BA % % 0.0 2.0 2.9 High FINAL Nicole Carmonaot a [facility] - [place], [address] [place] [id number] 0 Phone: () - 11/21 CBC w/ auto diff LY # K/uL 0.4 3.6 0.6 FINAL Nicole Carmonaot [facility] - [place], [address] [place] [id number] 0 Phone: () - 11/21 CBC w/ auto diff MO # K/uL 0.2 1.3 0.0 Low FINAL Nicole muñoz [facility] - [place], [address] [place] [id number] 0 Phone: () - 11/21 CBC w/ auto diff EO # K/uL 0.0 0.6 0.0 FINAL Nicole muñoz [facility] - [place], [address] [place] [id number] 0 Phone: () - 11/21 CBC w/ auto diff BA # K/uL 0.0 0.2 0.0 FINAL Nicole muñoz [facility] - [place], [address] [place] [id number] 0 Phone: () - 11/21 CBC w/ auto diff NRBC % #/100W BC 0.0 0.2 0.0 FINAL Nicole muñoz [facility] - [place], [address] [place] [id number] 0 Phone: () - 11/21 CBC w/ auto diff RBC M/uL 3.9 5.1 4.07 FINAL Nicole muñoz [facility] - [place], [address] [place] [id number] 0 Phone: () - 11/21 CBC w/ auto diff HCT % 35.0 48.0 38.4 FINAL Nicole muñoz [facility] - [place], [address] [place] [id number] 0 Phone: () - 11/21 CBC w/ auto diff MCV fL 80.0 104.0 94.3 FINAL Nicole muñoz [facility] - [place], [address] [place] [id number] 0 Phone: () - 11/21 CBC w/ auto diff MCH pg 26.0 35.0 32.4 FINAL Nicole muñoz [facility] - [place], [address] [place] [id number] 0 Phone: () - 11/21 CBC w/ auto diff MCHC g/dL 30.0 35.0 34.4 FINAL Nicole Ya Mathewdamaris toni [facility] - [place], [address] [place] [id number] 0 Phone: () - 11/21 CBC w/ auto diff MPV fL 9.5 13.4 10.1 FINAL Nicole Ya Mathewdamaris muñoz [facility] - [place], [address] [place] [id number] 0 Phone: () - 11/21 CBC w/ auto diff RDW % 11.4 16.1 11.80 FINAL Nicole muñoz [facility] - [place], [address] [place] [id number] 0 Phone: () - 11/21 CBC w/ auto diff Auto CBC comme nts Slide review to follow FINAL Nicole muñoz [facility] - [place], [address] [place] [id number] 0 Phone: () - 11/21 Smear revie w panel CBC Smear revie w comme nts Consist ent with reporte d results Abnorma l Lymphs present Large and-or giant platele ts present FINAL Nicole Ya Mathewdamaris muñoz [facility] - [place], [address] [place] [id number] 0 Phone: () - 11/27 iSTAT Na+/K +/Cl- panel Sodiu m, iSTAT mmol/L 138.0 146.0 137 Low Reference range adjusted 0 with implement ation of I-Stat 8+ cartridge . FINAL Nicole Ya Mathewdamaris muñoz [facility] - [place], [address] [place] [id number] 0 Phone: () - 11/27 iSTAT Na+/K +/Cl- panel Potas sium, iSTAT mmol/L 3.5 4.9 3.4 Low Reference range adjusted 0 with implement ation of I-Stat 8+ cartridge . FINAL Nicole muñoz [facility] - [place], [address] [place] [id number] 0 Phone: () - 11/27 iSTAT Na+/K +/Cl- panel Chlor rakan, iSTAT mmol/L 98.0 109.0 99 Reference range adjusted 0 with implement ation of I-Stat 8+ cartridge . FINAL Nicole muñoz [facility] - [place], [address] [place] [id number] 0 Phone: () - 11/27 iSTAT creat inine panel Creat inine , iSTAT mg/dl 0.6 1.3 1.1 FINAL Nicole muñoz [facility] - [place], [address] [place] [id number] 0 Phone: () - 11/27 iSTAT creat inine panel GFR estim ate ml/min /1.73m ^2 54.4 Low GFR is calculate d using the CKD-EPI equation. FINAL Nicole muñoz [facility] - [place], [address] [place] [id number] 0 Phone: () - 11/27 CBC w/ auto diff WBC K/uL 3.0 8.9 32.0 High FINAL Nicole muñoz [facility] - [place], [address] [place] [id number] 0 Phone: () - 11/27 CBC w/ auto diff HGB g/dL 11.3 15.2 13.3 FINAL Nicole muñoz [facility] - [place], [address] [place] [id number] 0 Phone: () - 11/27 CBC w/ auto diff PLT K/uL 113.0 364.0 87 Low FINAL Nicole muñoz [facility] - [place], [address] [place] [id number] 0 Phone: () - 11/27 CBC w/ auto diff Augustus # (ANC) K/uL 1.6 6.6 25.7 High FINAL Nicole Carmonaot a [facility] - [place], [address] [place] [id number] 0 Phone: () - 11/27 CBC w/ auto diff Augustus % % 43.0 74.0 80.5 High FINAL Nicole Carmonaot a [facility] - [place], [address] [place] [id number] 0 Phone: () - 11/27 CBC w/ auto diff IG % % 0.0 0.5 7.6 High FINAL Nicole Carmonaot a [facility] - [place], [address] [place] [id number] 0 Phone: () - 11/27 CBC w/ auto diff IG # K/uL 0.0 0.03 2.44 High FINAL Nicole Carmonaot a [facility] - [place], [address] [place] [id number] 0 Phone: () - 11/27 CBC w/ auto diff LY % % 14.0 41.0 5.8 Low FINAL Nicole Carmonaot a [facility] - [place], [address] [place] [id number] 0 Phone: () - 11/27 CBC w/ auto diff MO % % 6.0 15.0 6.1 FINAL Nicole Carmonaot a [facility] - [place], [address] [place] [id number] 0 Phone: () - 11/27 CBC w/ auto diff EO % % 0.0 7.0 0.0 FINAL Nicole Carmonaot a [facility] - [place], [address] [place] [id number] 0 Phone: () - 11/27 CBC w/ auto diff BA % % 0.0 2.0 0.0 FINAL Nicole Carmonaot a [facility] - [place], [address] [place] [id number] 0 Phone: () - 11/27 CBC w/ auto diff LY # K/uL 0.4 3.6 1.8 FINAL Nicole Ya Nini muñoz [facility] - [place], [address] [place] [id number] 0 Phone: () - 11/27 CBC w/ auto diff MO # K/uL 0.2 1.3 2.0 High FINAL Nicole Ya Nini a [facility] - [place], [address] [place] [id number] 0 Phone: () - 11/27 CBC w/ auto diff EO # K/uL 0.0 0.6 0.0 FINAL Nicole Felton Nini muñoz [facility] - [place], [address] [place] [id number] 0 Phone: () - 11/27 CBC w/ auto diff BA # K/uL 0.0 0.2 0.0 FINAL Nicole Felton Mathewdamaris toni [facility] - [place], [address] [place] [id number] 0 Phone: () - 11/27 CBC w/ auto diff NRBC % #/100W BC 0.0 0.2 0.3 High FINAL Nicole Felton Nini muñoz [facility] - [place], [address] [place] [id number] 0 Phone: () - 11/27 CBC w/ auto diff RBC M/uL 3.9 5.1 4.09 FINAL Nicole Felton Nini muñoz [facility] - [place], [address] [place] [id number] 0 Phone: () - 11/27 CBC w/ auto diff HCT % 35.0 48.0 38.0 FINAL Nicole Ya Nini muñoz [facility] - [place], [address] [place] [id number] 0 Phone: () - 11/27 CBC w/ auto diff MCV fL 80.0 104.0 92.9 FINAL Nicole Ya Mathewdamaris muñoz [facility] - [place], [address] [place] [id number] 0 Phone: () - 11/27 CBC w/ auto diff MCH pg 26.0 35.0 32.5 FINAL Nicole muñoz [facility] - [place], [address] [facility] [address] [place] [id number] 0 Phone: () - 11/27 CBC w/ auto diff MCHC g/dL 30.0 35.0 35.0 FINAL Nicole muñoz [facility] - [place], [address] [facility] [address] [place] [id number] 0 Phone: () - 11/27 CBC w/ auto diff MPV fL 9.5 13.4 9.1 Low FINAL Nicole muñoz [facility] - [place], [address] [facility] [address] [place] [id number] 0 Phone: () - 11/27 CBC w/ auto diff RDW % 11.4 16.1 11.60 FINAL Nicole muñoz [facility] - [place], [address] [facility] [address] [place] [id number] 0 Phone: () - 12/07 CMP Album in g/dL 3.2 5.2 3.[address] [facility], [address] [facility] [address] [place] [address] [id number] 0 Phone: () - 12/07 CMP Alkal ine phosp hatas e U/L 46.0 116.[address] [facility], [facility] [address] [place] [address] [id number] 0 Phone: () - 12/07 CMP ALT/S GPT U/L 7.0 40.0 27 FINAL Tiara [facility] [address] [facility] [address] [place] [id number] 0 Phone: () - 12/07 CMP AST/S GOT U/L 13.0 40.0 17 FINAL Tiara [facility], [address] [place] [address] [id number] 0 Phone: () - 12/07 CMP BUN mg/dL 9.0 23.0 12.0 FINAL Tiara [facility], [address] [facility] 100 [facility] [id number] 0 Phone: () - 12/07 CMP Calci um mg/dL 8.7 10.4 9.8 FINAL Tiara [facility] [address] [facility] 100 [facility] [id number] 0 Phone: () - 12/07 CMP Chlor rakan mmol/L 96.0 114.0 110 FINAL [place] [address] [address] [facility] [address] [facility] [id number] 0 Phone: () - 12/07 CMP CO2 [...] of the 96 hour stability window. FINAL [place] [address] [address] [facility] [address] [place] [address] [id number] 0 Phone: () - 12/07 CMP Creat inine mg/dL 0.5 1.2 0.89 FINAL [place] [address] [id number] 0 Phone: () - 12/07 CMP GFR estim ate ml/min /1.73m ^2 70.2 GFR is calculate d using the CKD-EPI equation. FINAL [facility], [facility] [address] [facility] [address] [id number] 0 Phone: () - 12/07 CMP Gluco se mg/dL 73.0 126.0 152 High FINAL [place] [address] [address] [facility] [address] [facility] [id number] 0 Phone: () - 12/07 CMP Potas sium mmol/L 3.5 5.1 4.3 FINAL [place] [address] [address] [facility] [address] [facility] [id number] 0 Phone: () - 12/07 CMP Sodiu m mmol/L 136.0 145.0 145 FINAL Tiara muñoz [facility], [address] [facility] [id number] 0 Phone: () - 12/07 CMP Bilir ubin, total mg/dL 0.3 1.2 0.6 FINAL Tiara muñoz [facility], [address] [facility] [id number] 0 Phone: () - 12/07 CMP Total prote in g/dL 5.7 8.2 5.9 FINAL Tiara muñoz [facility], [address] [facility] [address] [facility] [id number] 0 Phone: () - 12/07 iSTAT creat inine panel Creat inine , iSTAT mg/dl 0.6 1.3 0.8 FINAL Tiara muñoz [facility] - [place] , [address] [place] [address] d [address] [facility] [place] [id number] 0 Phone: () - 12/07 iSTAT creat inine panel GFR estim ate ml/min /1.73m ^2 79.8 GFR is calculate d using the CKD-EPI equation. FINAL Tiara muñoz [facility] - [place] , [address] [place] [address] d [address] [facility] [place] [id number] 0 Phone: () - 12/07 CBC w/ auto diff WBC K/uL 3.0 8.9 17.1 High FINAL Tiara muñoz [facility] - [place] , [address] [place] [address] d [address] [facility] [place] [id number] 0 Phone: () - 12/07 CBC w/ auto diff HGB g/dL 11.3 15.2 10.9 Low FINAL Tiara muñoz [facility] - [place] , [address] [place] [address] [facility] [address] [facility] [place] [id number] 0 Phone: () - 12/07 CBC w/ auto diff PLT K/uL 113.0 364.0 157 FINAL Tiara muñoz [facility] - [place], [address] [place] [id number] 0 Phone: () - 12/07 CBC w/ auto diff Augustus # (ANC) K/uL 1.6 6.6 15.3 High FINAL Tiara Carmonaot a [facility] - [place], [address] [place] [id number] 0 Phone: () - 12/07 CBC w/ auto diff Augustus % % 43.0 74.0 89.4 High FINAL Tiara Carmonaot a [facility] - [place], [address] [place] [id number] 0 Phone: () - 12/07 CBC w/ auto diff IG % % 0.0 0.5 1.8 High FINAL Tiara Carmonaot a [facility] - [place], [address] [place] [id number] 0 Phone: () - 12/07 CBC w/ auto diff IG # K/uL 0.0 0.03 0.30 High FINAL Tiara Carmonaot a [facility] - [place], [address] [place] [id number] 0 Phone: () - 12/07 CBC w/ auto diff LY % % 14.0 41.0 5.2 Low FINAL Tiara Carmonaot a [facility] - [place], [address] [place] [id number] 0 Phone: () - 12/07 CBC w/ auto diff MO % % 6.0 15.0 3.5 Low FINAL Tiara Carmonaot a [facility] - [place], [address] [place] [id number] 0 Phone: () - 12/07 CBC w/ auto diff EO % % 0.0 7.0 0.0 FINAL Tiara Carmonaot a [facility] - [place], [address] [place] [id number] 0 Phone: () - 12/07 CBC w/ auto diff BA % % 0.0 2.0 0.1 FINAL Tiara Carmonaot a [facility] - [place], [address] [place] [id number] 0 Phone: () - 12/07 CBC w/ auto diff LY # K/uL 0.4 3.6 0.9 FINAL Tiara Carmonaot a [facility] - [place], [address] [place] [id number] 0 Phone: () - 12/07 CBC w/ auto diff MO # K/uL 0.2 1.3 0.6 FINAL Tiara Carmonaot [facility] - [place], [address] [place] [id number] 0 Phone: () - 12/07 CBC w/ auto diff EO # K/uL 0.0 0.6 0.0 FINAL Tiara Carmonaot a [facility] - [place], [address] [place] [id number] 0 Phone: () - 12/07 CBC w/ auto diff BA # K/uL 0.0 0.2 0.0 FINAL Tiara Carmonaot [facility] - [place], [address] [place] [id number] 0 Phone: () - 12/07 CBC w/ auto diff NRBC % #/100W BC 0.0 0.2 0.0 FINAL Tiara Carmonaot [facility] - [place], [address] [place] [id number] 0 Phone: () - 12/07 CBC w/ auto diff RBC M/uL 3.9 5.1 3.37 Low FINAL Tiara Carmonaot [facility] - [place], [address] [place] [id number] 0 Phone: () - 12/07 CBC w/ auto diff HCT % 35.0 48.0 32.8 Low FINAL Tiara Carmonaot a [facility] - [place], [address] [place] [id number] 0 Phone: () - 12/07 CBC w/ auto diff MCV fL 80.0 104.0 97.3 FINAL Tiara Carmonaot [facility] - [place], [address] [place] [id number] 0 Phone: () - 12/07 CBC w/ auto diff MCH pg 26.0 35.0 32.3 FINAL Tiara Carmonaot a [facility] - [place], [address] [place] [id number] 0 Phone: () - 12/07 CBC w/ auto diff MCHC g/dL 30.0 35.0 33.2 FINAL Tiara Carmonaot toni [facility] - [place], [address] [place] [id number] 0 Phone: () - 12/07 CBC w/ auto diff MPV fL 9.5 13.4 8.9 Low FINAL Tiara muñoz [facility] - [place], [address] [address] [place] [id number] 0 Phone: () - 12/07 CBC w/ auto diff RDW % 11.4 16.1 12.70 FINAL Tiara mu[facility]oz [facility] - [place], [address] [place] [phone] 0 Phone: () - 12/12 iSTAT Na+/K +/Cl- panel Sodiu m, iSTAT mmol/L 138.0 146.0 137 Low Reference range adjusted 0 with implement ation of I-Stat 8+ cartridge . FINAL Nicole Terrazas a [facility] - [place], [address] [place] [id number] 0 Phone: () - 12/12 iSTAT Na+/K +/Cl- panel Potas sium, iSTAT mmol/L 3.5 4.9 3.9 Reference range adjusted 0 with implement ation of I-Stat 8+ cartridge . FINAL Nicole Carmonaot a [facility] - [place], [address] [place] [id number] 0 Phone: () - 12/12 iSTAT Na+/K +/Cl- panel Chlor rakan, iSTAT mmol/L 98.0 109.0 99 Reference range adjusted 0 with implement ation of I-Stat 8+ cartridge . FINAL Nicole Terrazas [facility] - [place], [address] [place] [id number] 0 Phone: () - 12/12 CBC w/ auto diff WBC K/uL 3.0 8.9 2.0 Low FINAL Nicole muñoz [facility] - [place], [address] [place] [id number] 0 Phone: () - 12/12 CBC w/ auto diff HGB g/dL 11.3 15.2 11.2 Low FINAL Nicole umñoz [facility] - [place], [address] [place] [id number] 0 Phone: () - 12/12 CBC w/ auto diff PLT K/uL 113.0 364.0 27 Critica l hematol ogy result obtaine d Criti todd Low FINAL Nicole muñoz [facility] - [place], [address] [place] [id number] 0 Phone: () - 12/12 CBC w/ auto diff Plate let, immat ure, fract ion % 0.9 11.2 7.0 FINAL Nicole Terrazas [facility] - [place], [address] [place] [id number] 0 Phone: () - 12/12 CBC w/ auto diff Augustus # (ANC) K/uL 1.6 6.6 1.1 Low FINAL Nicole muñoz [facility] - [place], [address] [place] [id number] 0 Phone: () - 12/12 CBC w/ auto diff Augustus % % 43.0 74.0 56.0 FINAL Nicole Ya Nini muñoz [facility] - [place], [address] [place] [id number] 0 Phone: () - 12/12 CBC w/ auto diff IG % % 0.0 0.5 3.0 High FINAL Nicole Ya Nini a [facility] - [place], [address] [place] [phone] 0 Phone: () - 12/12 CBC w/ auto diff IG # K/uL 0.0 0.03 0.06 High FINAL Nicole Ya Mathewot a [facility] - [place], [address] [place] [id number] 0 Phone: () - 12/12 CBC w/ auto diff LY % % 14.0 41.0 35.5 FINAL Nicole Felton Mathewot a [facility] - [place], [address] [place] [id number] 0 Phone: () - 12/12 CBC w/ auto diff MO % % 6.0 15.0 2.0 Low FINAL Nicole Felton Nini a [facility] - [place], [address] [place] [id number] 0 Phone: () - 12/12 CBC w/ auto diff EO % % 0.0 7.0 1.0 FINAL Nicole Felton Nini a [facility] - [place], [address] [place] [id number] 0 Phone: () - 12/12 CBC w/ auto diff BA % % 0.0 2.0 2.5 High FINAL Nicole Felton Nini a [facility] - [place], [address] [place] [id number] 0 Phone: () - 12/12 CBC w/ auto diff LY # K/uL 0.4 3.6 0.7 FINAL Nicole Felton Nini a [facility] - [place], [address] [place] [id number] 0 Phone: () - 12/12 CBC w/ auto diff MO # K/uL 0.2 1.3 0.0 Low FINAL Nicole Felton [place] [facility] - [place], [address] [place] [id number] 0 Phone: () - 12/12 CBC w/ auto diff EO # K/uL 0.0 0.6 0.0 FINAL Nicole Carmonaot a [facility] - [place], [address] [place] [id number] 0 Phone: () - 12/12 CBC w/ auto diff BA # K/uL 0.0 0.2 0.1 FINAL Nicole Carmonaot a [facility] - [place], [address] [place] [id number] 0 Phone: () - 12/12 CBC w/ auto diff NRBC % #/100W BC 0.0 0.2 1.0 High FINAL Nicole Terrazas [facility] - [place], [address] [place] [id number] 0 Phone: () - 12/12 CBC w/ auto diff RBC M/uL 3.9 5.1 3.51 Low FINAL Nicole Terrazas [facility] - [place], [address] [place] [id number] 0 Phone: () - 12/12 CBC w/ auto diff HCT % 35.0 48.0 33.7 Low FINAL Nicole muñoz [facility] - [place], [address] [place] [id number] 0 Phone: () - 12/12 CBC w/ auto diff MCV fL 80.0 104.0 96.0 FINAL Nicole Terrazas [facility] - [place], [address] [place] [id number] 0 Phone: () - 12/12 CBC w/ auto diff MCH pg 26.0 35.0 31.9 FINAL Nicole Carmonaot a [facility] - [place], [address] [place] [id number] 0 Phone: () - 12/12 CBC w/ auto diff MCHC g/dL 30.0 35.0 33.2 FINAL Nicole Carmonaot [facility] - [place], [address] [place] [id number] 0 Phone: () - 12/12 CBC w/ auto diff MPV fL 9.5 13.4 11.1 FINAL Nicole Carmonaot [facility] - [place], [address] [place] [id number] 0 Phone: () - 12/12 CBC w/ auto diff RDW % 11.4 16.1 13.00 FINAL Nicole Carmonaot [facility] - [place], [address] [place] [id number] 0 Phone: () - 12/27 CBC w/ auto diff WBC K/uL 3.0 8.9 6.3 FINAL Nicole Carmonaot [facility] - [place], [address] [place] [id number] 0 Phone: () - 12/27 CBC w/ auto diff HGB g/dL 11.3 15.2 10.2 Low FINAL Nicole Carmonaot [facility] - [place], [address] [place] [id number] 0 Phone: () - 12/27 CBC w/ auto diff PLT K/uL 113.0 364.0 108 Low FINAL Nicole muñoz [facility] - [place], [address] [place] [id number] 0 Phone: () - 12/27 CBC w/ auto diff Augustus # (ANC) K/uL 1.6 6.6 3.8 FINAL Nicole Carmonaot [facility] - [place], [address] [place] [id number] 0 Phone: () - 12/27 CBC w/ auto diff Augustus % % 43.0 74.0 60.1 FINAL Nicole Carmonaot [facility] - [place], [address] [place] [id number] 0 Phone: () - 12/27 CBC w/ auto diff IG % % 0.0 0.5 0.6 High FINAL Nicole Carmonaot [facility] - [place], [address] [place] [id number] 0 Phone: () - 12/27 CBC w/ auto diff IG # K/uL 0.0 0.03 0.04 High FINAL Nicole Carmonaot [facility] - [place], [address] [place] [id number] 0 Phone: () - 12/27 CBC w/ auto diff LY % % 14.0 41.0 25.1 FINAL Nicole Carmonaot [facility] - [place], [address] [place] [id number] 0 Phone: () - 12/27 CBC w/ auto diff MO % % 6.0 15.0 13.7 FINAL Nicole Carmonaot [facility] - [place], [address] [place] [id number] 0 Phone: () - 12/27 CBC w/ auto diff EO % % 0.0 7.0 0.2 FINAL Nicole Carmonaot a [facility] - [place], [address] [place] [id number] 0 Phone: () - 12/27 CBC w/ auto diff BA % % 0.0 2.0 0.3 FINAL Nicole Carmonaot a [facility] - [place], [address] [place] [id number] 0 Phone: () - 12/27 CBC w/ auto diff LY # K/uL 0.4 3.6 1.6 FINAL Nicole Carmonaot a [facility] - [place], [address] [place] [id number] 0 Phone: () - 12/27 CBC w/ auto diff MO # K/uL 0.2 1.3 0.9 FINAL Nicole Carmonaot a [facility] - [place], [address] [place] [id number] 0 Phone: () - 12/27 CBC w/ auto diff EO # K/uL 0.0 0.6 0.0 FINAL Nicole muñoz [facility] - [place], [address] [place] [id number] 0 Phone: () - 12/27 CBC w/ auto diff BA # K/uL 0.0 0.2 0.0 FINAL Nicole muñoz [facility] - [place], [address] [place] [id number] 0 Phone: () - 12/27 CBC w/ auto diff NRBC % #/100W BC 0.0 0.2 0.0 FINAL Nicole muñoz [facility] - [place], [address] [place] [id number] 0 Phone: () - 12/27 CBC w/ auto diff RBC M/uL 3.9 5.1 3.18 Low FINAL Nicole muñoz [facility] - [place], [address] [place] [id number] 0 Phone: () - 12/27 CBC w/ auto diff HCT % 35.0 48.0 32.2 Low FINAL Nicole muoñz [facility] - [place], [address] [place] [id number] 0 Phone: () - 12/27 CBC w/ auto diff MCV fL 80.0 104.0 101.3 FINAL Nicole muñoz [facility] - [place], [address] [place] [id number] 0 Phone: () - 12/27 CBC w/ auto diff MCH pg 26.0 35.0 32.1 FINAL Nicole muñoz [facility] - [place], [address] [place] [id number] 0 Phone: () - 12/27 CBC w/ auto diff MCHC g/dL 30.0 35.0 31.7 FINAL Nicole mu[facility]oz [facility] - [place], [address] [place] [id number] 0 Phone: () - 12/27 CBC w/ auto diff MPV fL 9.5 13.4 8.8 Low FINAL Nicole muñoz [facility] - [place], [address] [place] [id number] 0 Phone: () - 12/27 CBC w/ auto diff RDW % 11.4 16.1 15.80 FINAL Nicole muñoz [facility] - [place], [address] [place] [id number] 0 Phone: () - 12/27 iSTAT creat inine panel Creat inine , iSTAT mg/dl 0.6 1.3 1.0 FINAL Nicole mu[facility]oz [facility] - [place], [address] [place] [id number] 0 Phone: () - 12/27 iSTAT creat inine panel GFR estim ate ml/min /1.73m ^2 61.0 GFR is calculate d using the CKD-EPI equation. FINAL Nicole mu[facility]oz [facility] - [place], [address] [facility] [address] [place] [id number] 0 Phone: () - 12/27 CMP Album in g/dL 3.2 5.2 3.7 FINAL Nicole muñoz [facility], [address] [place] [id number] 0 Phone: () - 12/27 CMP Alkal ine phosp hatas e U/L 46.0 116.0 94 FINAL Nicole muñoz [facility], [address] [place] [id number] 0 Phone: () - 12/27 CMP ALT/S GPT U/L 7.0 40.0 33 FINAL Nicole muñoz [facility], [address] [place] [id number] 0 Phone: () - 12/27 CMP AST/S GOT U/L 13.0 40.0 21 FINAL Nicole Ya [place] [address] [address] [facility] 100 [facility] [phone] 0 Phone: () - 12/27 CMP BUN mg/dL 9.0 23.0 8.0 Low FINAL Nicole muñoz [place] [address] [address] [facility] 100 [facility] [id number] 0 Phone: () - 12/27 CMP Calci um mg/dL 8.7 10.4 8.5 Low FINAL Nicole muñoz [place] [address] [id number] 0 Phone: () - 12/27 CMP Chlor rakan mmol/L 96.0 114.0 114 FINAL Nicole muñoz [place] [address] [id number] 0 Phone: () - 12/27 CMP CO2 [...] 96 hour stability window. FINAL Nicole muñoz [place] [address] [id number] 0 Phone: () - 12/27 CMP Creat inine mg/dL 0.5 1.2 0.89 FINAL Nicole muñoz [place] [address] [id number] 0 Phone: () - 12/27 CMP GFR estim ate ml/min /1.73m ^2 70.1 GFR is calculate d using the CKD-EPI equation. FINAL Nicole muñoz [place] [address] [id number] 0 Phone: () - 12/27 CMP Gluco se mg/dL 73.0 126.0 92 FINAL Nicole Terrazas [place] [address] [id number] 0 Phone: () - 12/27 CMP Potas sium mmol/L 3.5 5.1 4.3 FINAL [facility] [address] [facility] [address] [id number] 0 Phone: () - 12/27 CMP Sodiu m mmol/L 136.0 145.0 145 [facility] [address] [facility] [address] [id number] 0 Phone: () - 12/27 CMP Bilir ubin, total mg/dL 0.3 1.2 0.5 FINAL Nicole [place] [address] [address] [facility] [address] [id number] 0 Phone: () - 12/27 CMP Total prote in g/dL 5.7 8.2 5.5 Low FINAL Nicole [place] [address] [id number] 0 Phone: () - 01/18 CMP Album in g/dL 3.2 5.2 3.7 FINAL Nicole [place] [address] [id number] 0 Phone: () - 01/18 CMP Alkal ine phosp hatas e U/L 46.0 116.0 94 FINAL Nicole [place] [address] [id number] 0 Phone: () - 01/18 CMP ALT/S GPT U/L 7.0 40.0 33 FINAL Nicole [place] [address] [id number] 0 Phone: () - 01/18 CMP AST/S GOT U/L 13.0 40.0 18 FINAL Nicole [place] [address] [address] [facility] [address] [id number] 0 Phone: () - 01/18 CMP BUN mg/dL 9.0 23.0 10.0 FINAL Nicole [place] [address] [address] [facility] [address] [id number] 0 Phone: () - 01/18 CMP Calci um mg/dL 8.7 10.4 9.0 FINAL [place] [address] [id number] 0 Phone: () - 01/18 CMP Chlor rakan mmol/L 96.0 114.0 108 FINAL [place] [address] [id number] 0 Phone: () - 01/18 CMP CO2 [...] 96 hour stability window. FINAL Nicole Terrazas [place] [address] [id number] 0 Phone: () - 01/18 CMP Creat inine mg/dL 0.5 1.2 0.80 FINAL [place] [address] [id number] 0 Phone: () - 01/18 CMP GFR estim ate ml/min /1.73m ^2 79.7 GFR is calculate d using the CKD-EPI equation. FINAL [place] [address] [id number] 0 Phone: () - 01/18 CMP Gluco se mg/dL 73.0 126.0 156 High FINAL [place] [address] [id number] 0 Phone: () - 01/18 CMP Potas sium mmol/L 3.5 5.1 4.7 FINAL [place] [address] [id number] 0 Phone: () - 01/18 CMP Sodiu m mmol/L 136.0 145.0 145 FINAL [place] [address] [id number] 0 Phone: () - 01/18 CMP Bilir ubin, total mg/dL 0.3 1.2 0.5 FINAL Nicole Terrazas [facility] - [place], [address] [place] [id number] 0 Phone: () - 01/18 CMP Total prote in g/dL 5.7 8.2 5.6 Low FINAL Nicole Terrazas [facility] - [place], [address] [place] [id number] 0 Phone: () - 01/18 CBC w/ auto diff WBC K/uL 3.0 8.9 12.6 High FINAL Nicole Carmonaot a [facility] - [place], [address] [place] [id number] 0 Phone: () - 01/18 CBC w/ auto diff HGB g/dL 11.3 15.2 9.7 Low FINAL Nicole Carmonaot a [facility] - [place], [address] [place] [id number] 0 Phone: () - 01/18 CBC w/ auto diff PLT K/uL 113.0 364.0 124 FINAL Nicole Carmonaot a [facility] - [place], [address] [place] [id number] 0 Phone: () - 01/18 CBC w/ auto diff Augustus # (ANC) K/uL 1.6 6.6 10.7 High FINAL Nicole Carmonaot a [facility] - [place], [address] [place] [id number] 0 Phone: () - 01/18 CBC w/ auto diff Augustus % % 43.0 74.0 84.3 High FINAL Nicole Carmonaot a [facility] - [place], [address] [place] [id number] 0 Phone: () - 01/18 CBC w/ auto diff IG % % 0.0 0.5 4.4 High FINAL Nicole Carmonaot a [facility] - [place], [address] [place] [id number] 0 Phone: () - 01/18 CBC w/ auto diff IG # K/uL 0.0 0.03 0.56 High FINAL Nicole muñoz [facility] - [place], [address] [place] [id number] 0 Phone: () - 01/18 CBC w/ auto diff LY % % 14.0 41.0 8.5 Low FINAL Nicole muñoz [facility] - [place], [address] [place] [id number] 0 Phone: () - 01/18 CBC w/ auto diff MO % % 6.0 15.0 2.6 Low FINAL Nicole muñoz [facility] - [place], [address] [place] [id number] 0 Phone: () - 01/18 CBC w/ auto diff EO % % 0.0 7.0 0.0 FINAL Nicole muñoz [facility] - [place], [address] [facility] [address] [place] [id number] 0 Phone: () - 01/18 CBC w/ auto diff BA % % 0.0 2.0 0.2 FINAL Nicole muñoz [facility] - [place], [address] [facility] [address] [place] [id number] 0 Phone: () - 01/18 CBC w/ auto diff LY # K/uL 0.4 3.6 1.1 FINAL Nicole muñoz [facility] - [place], [address] [place] [id number] 0 Phone: () - 01/18 CBC w/ auto diff MO # K/uL 0.2 1.3 0.3 FINAL Nicole muñoz [facility] - [place], [address] [place] [id number] 0 Phone: () - 01/18 CBC w/ auto diff EO # K/uL 0.0 0.6 0.0 FINAL Nicole muñoz [facility] - [place], [address] [place] [id number] 0 Phone: () - 01/18 CBC w/ auto diff BA # K/uL 0.0 0.2 0.0 FINAL Nicole Ya Nini a [facility] - [place], [address] [place] [id number] 0 Phone: () - 01/18 CBC w/ auto diff NRBC % #/100W BC 0.0 0.2 0.5 High FINAL Nicole Ya Nini a [facility] - [place], [address] [place] [id number] 0 Phone: () - 01/18 CBC w/ auto diff RBC M/uL 3.9 5.1 2.85 Low FINAL Nicole Ya Nini a [facility] - [place], [address] [place] [id number] 0 Phone: () - 01/18 CBC w/ auto diff HCT % 35.0 48.0 29.8 Low FINAL Nicole Felton Nini a [facility] - [place], [address] [place] [id number] 0 Phone: () - 01/18 CBC w/ auto diff MCV fL 80.0 104.0 104.6 High FINAL Nicole Ya Nini a [facility] - [place], [address] [place] [id number] 0 Phone: () - 01/18 CBC w/ auto diff MCH pg 26.0 35.0 34.0 FINAL Nicole Ya Nini a [facility] - [place], [address] [place] [id number] 0 Phone: () - 01/18 CBC w/ auto diff MCHC g/dL 30.0 35.0 32.6 FINAL Nicole Ya Mathewdamaris a [facility] - [place], [address] [place] [id number] 0 Phone: () - 01/18 CBC w/ auto diff MPV fL 9.5 13.4 9.0 Low FINAL Nicole muñoz [facility] - [place], [address] [place] [id number] 0 Phone: () - 01/18 CBC w/ auto diff RDW % 11.4 16.1 19.00 High FINAL Nicole muñoz [facility] - [place], [address] [place] [id number] 0 Phone: () - 01/18 iSTAT creat inine panel Creat inine , iSTAT mg/dl 0.6 1.3 0.8 FINAL Nicole muñoz [facility] - [place], [address] [place] [id number] 0 Phone: () - 01/18 iSTAT creat inine panel GFR estim ate ml/min /1.73m ^2 79.7 GFR is calculate d using the CKD-EPI equation. FINAL Nicole muñoz [facility] - [place], [address] [place] [id number] 0 Phone: () - 01/29 CBC w/ auto diff WBC K/uL 3.0 8.9 19.0 High FINAL Nicole muñoz [facility] - [place], [address] [place] [id number] 0 Phone: () - 01/29 CBC w/ auto diff HGB g/dL 11.3 15.2 8.8 Low FINAL Nicole muñoz [facility] - [place], [address] [place] [id number] 0 Phone: () - 01/29 CBC w/ auto diff PLT K/uL 113.0 364.0 59 Low FINAL Nicole muñoz [facility] - [place], [address] [place] [id number] 0 Phone: () - 01/29 CBC w/ auto diff Augustus # (ANC) K/uL 1.6 6.6 16.7 High FINAL Nicole muñoz [facility] - [place], [address] [place] [id number] 0 Phone: () - 01/29 CBC w/ auto diff Augustus % % 43.0 74.0 88.0 High FINAL Nicole Ya [place] a [facility] - [place], [address] [place] [id number] 0 Phone: () - 01/29 CBC w/ auto diff IG % % 0.0 0.5 1.9 High FINAL Nicole Felton [place] [facility] - [place], [address] [place] [id number] 0 Phone: () - 01/29 CBC w/ auto diff IG # K/uL 0.0 0.03 0.36 High FINAL Nicole Felton [place] [facility] - [place], [address] [place] [id number] 0 Phone: () - 01/29 CBC w/ auto diff LY % % 14.0 41.0 5.1 Low FINAL Nicole Felton [place] [facility] - [place], [address] [place] [id number] 0 Phone: () - 01/29 CBC w/ auto diff MO % % 6.0 15.0 4.8 Low FINAL Nicole Ya [place] a [facility] - [place], [address] [place] [id number] 0 Phone: () - 01/29 CBC w/ auto diff EO % % 0.0 7.0 0.0 FINAL Nicole Ya Mathewdamaris a [facility] - [place], [address] [place] [id number] 0 Phone: () - 01/29 CBC w/ auto diff BA % % 0.0 2.0 0.2 FINAL Nicole Ya [facility]wot a [facility] - [place], [address] [place] [id number] 0 Phone: () - 01/29 CBC w/ auto diff LY # K/uL 0.4 3.6 1.0 FINAL Nicole Terrazas a [facility] - [place], [address] [place] [id number] 0 Phone: () - 01/29 CBC w/ auto diff MO # K/uL 0.2 1.3 0.9 FINAL Nicole Terrazas a [facility] - [place], [address] [place] [id number] 0 Phone: () - 01/29 CBC w/ auto diff EO # K/uL 0.0 0.6 0.0 FINAL Nicole Terrazas a [facility] - [place], [address] [place] [id number] 0 Phone: () - 01/29 CBC w/ auto diff BA # K/uL 0.0 0.2 0.0 FINAL Nicole Terrazas a [facility] - [place], [address] [place] [id number] 0 Phone: () - 01/29 CBC w/ auto diff NRBC % #/100W BC 0.0 0.2 0.0 FINAL Nicole muñoz [facility] - [place], [address] [place] [id number] 0 Phone: () - 01/29 CBC w/ auto diff RBC M/uL 3.9 5.1 2.58 Low FINAL Nicole muñoz [facility] - [place], [address] [place] [id number] 0 Phone: () - 01/29 CBC w/ auto diff HCT % 35.0 48.0 27.0 Low FINAL Nicole Terrazas a [facility] - [place], [address] [place] [id number] 0 Phone: () - 01/29 CBC w/ auto diff MCV fL 80.0 104.0 104.7 High FINAL Nicole Carmonaot a [facility] - [place], [address] [place] [id number] 0 Phone: () - 09/12 /2023 CBC w/ auto diff MCH pg 26.0 35.0 34.1 FINAL Nicole muñoz [facility] - [place], [address] [place] [id number] 0 Phone: () - 01/29 CBC w/ auto diff MCHC g/dL 30.0 35.0 32.6 FINAL Nicole muñoz [facility] - [place], [address] [place] [id number] 0 Phone: () - 01/29 CBC w/ auto diff MPV fL 9.5 13.4 9.3 Low FINAL Nicole muñoz [facility] - [place], [address] [place] [id number] 0 Phone: () - 01/29 CBC w/ auto diff RDW % 11.4 16.1 17.80 High FINAL Nicole muñoz [facility] - [place], [address] [place] [id number] 0 Phone: () - 01/29 iSTAT Na+/K +/Cl- panel Sodiu m, iSTAT mmol/L 138.0 146.0 134 Low Reference range adjusted 0 with implement ation of I-Stat 8+ cartridge . FINAL Nicole muñoz [facility] - [place], [address] [place] [id number] 0 Phone: () - 01/29 iSTAT Na+/K +/Cl- panel Potas sium, iSTAT mmol/L 3.5 4.9 3.4 Low Reference range adjusted 0 with implement ation of I-Stat 8+ cartridge . FINAL Nicole muñoz [facility] - [place], [address] [place] [id number] 0 Phone: () - 01/29 iSTAT Na+/K +/Cl- panel Chlor rakan, iSTAT mmol/L 98.0 109.0 97 Low Reference range adjusted 0 with implement ation of I-Stat 8+ cartridge . FINAL Nicole muñoz [facility] - [place], [address] [place] [id number] 0 Phone: () - 02/05 iSTAT Na+/K +/Cl- panel Sodiu m, iSTAT mmol/L 138.0 146.0 134 Low Reference range adjusted 0 with implement ation of I-Stat 8+ cartridge . FINAL Nicole muñoz [facility] - [place], [address] [place] [id number] 0 Phone: () - 02/05 iSTAT Na+/K +/Cl- panel Potas sium, iSTAT mmol/L 3.5 4.9 3.1 Low Reference range adjusted 0 with implement ation of I-Stat 8+ cartridge . FINAL Nicole muñoz [facility] - [place], [address] [facility] [address] [place] [id number] 0 Phone: () - 02/05 iSTAT Na+/K +/Cl- panel Chlor rakan, iSTAT mmol/L 98.0 109.0 95 Low Reference range adjusted 0 with implement ation of I-Stat 8+ cartridge . FINAL Nicole muñoz [facility] - [place], [address] [place] [id number] 0 Phone: () - 02/05 CBC w/ auto diff BA # K/uL 0.0 0.2 0.0 FINAL Nicole muñoz [facility] - [place], [address] [place] [id number] 0 Phone: () - 02/05 CBC w/ auto diff NRBC % #/100W BC 0.0 0.2 0.1 FINAL Nicole muñoz [facility] - [place], [address] [place] [id number] 0 Phone: () - 02/05 CBC w/ auto diff RBC M/uL 3.9 5.1 2.96 Low FINAL [facility] [place], [address] [place] [id number] 0 Phone: () - 02/05 CBC w/ auto diff HCT % 35.0 48.0 30.3 Low FINAL [facility] - [place], [address] [place] [id number] 0 Phone: () - 02/05 CBC w/ auto diff MCV fL 80.0 104.0 102.4 FINAL [facility] - [place], [address] [place] [phone] 0 Phone: () - 02/05 CBC w/ auto diff MCH pg 26.0 35.0 33.8 FINAL Nicole [facility] - [place], [address] [place] [phone] 0 Phone: () - 02/05 CBC w/ auto diff MCHC g/dL 30.0 35.0 33.0 FINAL [facility] [place], [address] [place] [phone] 0 Phone: () - 02/05 CBC w/ auto diff MPV fL 9.5 13.4 8.5 Low FINAL Nicole Ya Nini mu[facility]oz [facility] - [place], [address] [place] [phone] 0 Phone: () - 02/05 CBC w/ auto diff RDW % 11.4 16.1 16.10 FINAL Nicole Ya Nini mu[facility] - [place], [address] [place] [phone] 0 Phone: () - 02/05 CBC w/ auto diff WBC K/uL 3.0 8.9 16.6 High FINAL Nicole Felton Nini [facility] - [place], [address] [place] [phone] 0 Phone: () - 02/05 CBC w/ auto diff HGB g/dL 11.3 15.2 10.0 Low FINAL Nicole Carmonaot [facility] - [place], [address] [place] [id number] 0 Phone: () - 02/05 CBC w/ auto diff PLT K/uL 113.0 364.0 122 FINAL Nicole [facility]ona[facility] - [place], [address] [place] [phone] 0 Phone: () - 02/05 CBC w/ auto diff Augustus # (ANC) K/uL 1.6 6.6 12.9 High FINAL Nicole [facility]onaot [facility] - [place], [address] [place] [phone] 0 Phone: () - 02/05 CBC w/ auto diff Augustus % % 43.0 74.0 77.5 High FINAL Nicole [facility] - [place], [address] [place] [id number] 0 Phone: () - 02/05 CBC w/ auto diff IG % % 0.0 0.5 1.1 High FINAL Nicole Terrazas [facility] - [place], [address] [place] [phone] 0 Phone: () - 02/05 CBC w/ auto diff IG # K/uL 0.0 0.03 0.19 High FINAL Nicole Terrazas [facility] - [place], [address] [place] [phone] 0 Phone: () - 02/05 CBC w/ auto diff LY % % 14.0 41.0 11.4 Low FINAL Nicole [facility] - [place], [address] [place] [id number] 0 Phone: () - 02/05 CBC w/ auto diff MO % % 6.0 15.0 9.9 FINAL Nicole [facility] - [place], [address] [place] [phone] 0 Phone: () - 02/05 CBC w/ auto diff EO % % 0.0 7.0 0.0 FINAL Nicole [facility] - [place], [address] [place] [id number] 0 Phone: () - 02/05 CBC w/ auto diff BA % % 0.0 2.0 0.1 FINAL Nicole [facility] - [place], [address] [place] [phone] 0 Phone: () - 02/05 CBC w/ auto diff LY # K/uL 0.4 3.6 1.9 FINAL Nicole [facility] - [place], [address] [place] [id number] 0 Phone: () - 02/05 CBC w/ auto diff MO # K/uL 0.2 1.3 1.6 High FINAL Nicole muñoz [facility] - [place], [address] [place] [phone] 0 Phone: () - 02/05 CBC w/ auto diff EO # K/uL 0.0 0.6 0.0 FINAL Nicole muñoz [facility] - [place], [address] [place] [id number] 0 Phone: () - 02/05 iSTAT creat inine panel Creat inine , iSTAT mg/dl 0.6 1.3 0.8 FINAL Tiara Carmonaot [facility] - [place], [address] [place] [phone] 0 Phone: () - 02/05 iSTAT creat inine panel GFR estim ate ml/min /1.73m ^2 79.7 GFR is calculate d using the CKD-EPI equation. FINAL Tiara Carmonaot [facility] - [place], [address] [place] [phone] 0 Phone: () - 02/05 Magne sium, mg/dL mg/dL 1.5 2.3 1.4 Low FINAL Tiara muñoz [facility] - [place], [address] [facility] [place] [id number] 0 Phone: () - 02/07 iSTAT Na+/K +/Cl- panel Sodiu m, iSTAT mmol/L 138.0 146.0 137 Low Reference range adjusted 0 with implement ation of I-Stat 8+ cartridge . FINAL Tiara muñoz [facility] - [place], [address] [facility] [address] [facility] [place] [phone] 0 Phone: () - 02/07 iSTAT Na+/K +/Cl- panel Potas sium, iSTAT mmol/L 3.5 4.9 3.2 Low Reference range adjusted 0 with implement ation of I-Stat 8+ cartridge . FINAL Tiara muñoz [facility] - [place], [address] [facility] [address] [facility] [place] [phone] 0 Phone: () - 02/07 iSTAT Na+/K +/Cl- panel Chlor rakan, iSTAT mmol/L 98.0 109.0 100 Reference range adjusted 0 with implement ation of I-Stat 8+ cartridge . FINAL Tiara muñoz [facility] - [place], [address] [facility] [address] [facility] [place] [id number] 0 Phone: () - 02/07 Magne sium, mg/dL mg/dL 1.5 2.3 1.5 FINAL Tiara muñoz [facility] - [place], [address] [facility] [address] [place] [phone] 0 Phone: () - 02/07 iSTAT creat inine panel Creat inine , iSTAT mg/dl 0.6 1.3 1.0 FINAL Tiara muñoz [facility] - [place], [address] [facility] [address] [facility] [place] [phone] 0 Phone: () - 02/07 iSTAT creat inine panel GFR estim ate ml/min /1.73m ^2 61.0 GFR is calculate d using the CKD-EPI equation. FINAL Tiara muñoz On[facility] - [facility], [address] [facility] [phone] 0 Phone: () - 02/08 Clost ridiu [...] been establish ed.This assay was performed by Blossompert (R) PCR.The performan ce character istics of this assay havebeen determine d by Pettati cs. Performan cecharact eristics refer to the analytica l performan ceof the test.For additiona l informati on, please refer tohttp:// Transpera/faq/F AQ136(Thi s link is being provided forinform ational/e ducationa l purposes only.)[CA ] FINAL Tiara Coronado PENELOPE, [facility] [address] [facility] [id number] 4 02/08 Clost ridiu m diffi cile toxin PCR panel CLOST RIDIU M DIFFI CILE TOXIN /GDH W/REF L TO PCR SEE NOTE CLOSTRIDI UM DIFFICILE TOXIN/GDH W/REFL TO PCRMicro Number: [id number] est Status: FinalSpec imen Source: StoolSpec imen Quality: AdequateG DH Antigen: DetectedT oxin A and B: Not DetectedC OMMENT: Indetermi vikram. Specimen forwarded fortoxige cesar C. difficile PCR testing.F or additiona l informati on, please refer tohttp:// [employer] .[employer]/faq/F AQ136(Thi s link is being provided forinform ational/e ducationa l purposes only.)[CB ] FINAL Tiara Coronado QUEST, [facility] [address] [facility] [id number] 4 02/08 CMP Album in g/dL 3.2 5.2 3.2 FINAL Nicole Terrazas [facility], [address] [place] [address] [phone] Phone: () - 02/08 CMP Alkal ine phosp hatas e U/L 46.0 116.0 85 FINAL [place] [address] [facility] [address] [place] [address] [phone] 0 Phone: () - 02/08 CMP ALT/S GPT U/L 7.0 40.0 24 FINAL [place] [address] [id number] 0 Phone: () - 02/08 CMP AST/S GOT U/L 13.0 40.0 16 FINAL [place] [address] [place] [phone] 0 Phone: () - 02/08 CMP BUN mg/dL 9.0 23.0 8.0 Low FINAL Nicole [place] [address] [phone] 0 Phone: () - 02/08 CMP Calci um mg/dL 8.7 10.4 8.3 Low FINAL [place] [address] [facility] [address] [place] [address] [phone] 0 Phone: () - 02/08 CMP Chlor rakan mmol/L 96.0 114.0 111 FINAL Nicole [place] [address] [facility] [address] [phone] 0 Phone: () - 02/08 CMP CO2 [...] 96 hour stability window. FINAL Nicole muñoz [place] [address] [phone] 0 Phone: () - 02/08 CMP Creat inine mg/dL 0.5 1.2 0.86 FINAL Nicole muñoz [place] [address] [phone] 0 Phone: () - 02/08 CMP GFR estim ate ml/min /1.73m ^2 73.0 GFR is calculate d using the CKD-EPI equation. FINAL Nicole muñoz [address] [phone] 0 Phone: () - 02/08 CMP Gluco se mg/dL 73.0 126.0 129 High FINAL Nicole muñoz [place] [address] [phone] 0 Phone: () - 02/08 CMP Potas sium mmol/L 3.5 5.1 3.6 FINAL Nicole Terrazas [place] [address] [phone] 0 Phone: () - 02/08 CMP Sodiu m mmol/L 136.0 145.0 144 FINAL Nicole muñoz [place] [address] [phone] 0 Phone: () - 02/08 CMP Bilir ubin, total mg/dL 0.3 1.2 0.3 FINAL Nicole Terrazas [place] [address] [id number] 0 Phone: () - 02/08 CMP Total prote in g/dL 5.7 8.2 4.8 Low FINAL Nicole Terrazas [place] [address] [id number] 0 Phone: () - 02/08 iSTAT creat inine panel Creat inine , iSTAT mg/dl 0.6 1.3 0.8 FINAL Nicole Ya [place] [facility] - [place], [address] [place] [id number] 0 Phone: () - 02/08 Xi nugent panel GFR estim ate ml/min /1.73m ^2 79.7 GFR is calculate d using the CKD-EPI equation. FINAL Nicole [facility]as [facility] - [place], [address] [place] [id number] 0 Phone: () - 02/08 CBC w/ auto diff WBC K/uL 3.0 8.9 17.2 High FINAL Nicole Terrazas [facility] - [place], [address] [place] [id number] 0 Phone: () - 02/08 CBC w/ auto diff HGB g/dL 11.3 15.2 7.9 Critica l hematol ogy result obtaine d Criti todd Low FINAL Nicole [facility] [place], [address] [place] [id number] 0 Phone: () - 02/08 CBC w/ auto diff PLT K/uL 113.0 364.0 123 FINAL Nicole muñoz [facility] - [place], [address] [place] [id number] 0 Phone: () - 02/08 CBC w/ auto diff Augustus # (ANC) K/uL 1.6 6.6 13.8 High FINAL Nicole Terrazas [facility] - [place], [address] [place] [phone] 0 Phone: () - 02/08 CBC w/ auto diff Augustus % % 43.0 74.0 80.0 High FINAL Nicole [facility]razas [facility] - [place], [address] [place] [id number] 0 Phone: () - 02/08 CBC w/ auto diff IG % % 0.0 0.5 2.2 High FINAL Nicole Terrazas [facility] - [place], [address] [place] [id number] 0 Phone: () - 02/08 CBC w/ auto diff IG # K/uL 0.0 0.03 0.38 High FINAL Nicole Carmonaot [facility] - [place], [address] [place] [phone] 0 Phone: () - 02/08 CBC w/ auto diff LY % % 14.0 41.0 9.3 Low FINAL Nicole Carm[facility] - [place], [address] [place] [id number] 0 Phone: () - 02/08 CBC w/ auto diff MO % % 6.0 15.0 8.4 FINAL Nicole Ya Mathewot [facility] - [place], [address] [place] [id number] 0 Phone: () - 02/08 CBC w/ auto diff EO % % 0.0 7.0 0.0 FINAL Nicole Ya [facility]wot [facility] - [place], [address] [place] [id number] 0 Phone: () - 02/08 CBC w/ auto diff BA % % 0.0 2.0 0.1 FINAL Nicole Ya Nini a [facility] - [place], [address] [place] [id number] 0 Phone: () - 02/08 CBC w/ auto diff LY # K/uL 0.4 3.6 1.6 FINAL Nicole Terrazas [facility] - [place], [address] [place] [id number] 0 Phone: () - 02/08 CBC w/ auto diff MO # K/uL 0.2 1.3 1.5 High FINAL Nicole Carm[facility] - [place], [address] [place] [id number] 0 Phone: () - 02/08 CBC w/ auto diff EO # K/uL 0.0 0.6 0.0 FINAL Nicole Carm[facility] - [place], [address] [place] [id number] 0 Phone: () - 02/08 CBC w/ auto diff BA # K/uL 0.0 0.2 0.0 FINAL Nicole Terrazas [facility] - [place], [address] [place] [id number] 0 Phone: () - 02/08 CBC w/ auto diff NRBC % #/100W BC 0.0 0.2 0.3 High FINAL Nicole Terrazas [facility] - [place], [address] [place] [id number] 0 Phone: () - 02/08 CBC w/ auto diff RBC M/uL 3.9 5.1 2.33 Low FINAL Nicole muñoz [facility] - [place], [address] [place] [id number] 0 Phone: () - 02/08 CBC w/ auto diff HCT % 35.0 48.0 24.6 Low FINAL Nicole muñoz [facility] - [place], [address] [place] [id number] 0 Phone: () - 02/08 CBC w/ auto diff MCV fL 80.0 104.0 105.6 High FINAL Nicole muñoz [facility] - [place], [address] [place] [phone] 0 Phone: () - 02/08 CBC w/ auto diff MCH pg 26.0 35.0 33.9 FINAL Nicole Terrazas [facility] - [place], [address] [place] [id number] 0 Phone: () - 02/08 CBC w/ auto diff MCHC g/dL 30.0 35.0 32.1 FINAL Nicole Terrazas [facility] - [place], [address] [place] [id number] 0 Phone: () - 02/08 CBC w/ auto diff MPV fL 9.5 13.4 9.1 Low FINAL Nicole muñoz [facility] - [place], [address] [place] [id number] 0 Phone: () - 02/08 CBC w/ auto diff RDW % 11.4 16.1 16.70 High FINAL Nicole muñoz [facility] - [place], [address] [place] [id number] 0 Phone: () - 02/12 Magne sium, mg/dL mg/dL 1.5 2.3 1.5 FINAL Nicole muñoz [facility] - [place], [address] [place] [phone] 0 Phone: () - 02/12 iSTAT Na+/K +/Cl- panel Sodiu m, iSTAT mmol/L 138.0 146.0 139 Reference range adjusted 0 with implement ation of I-Stat 8+ cartridge . FINAL Nicole muñoz [facility] - [place], [address] [facility] [address] [place] [id number] 0 Phone: () - 02/12 iSTAT Na+/K +/Cl- panel Potas sium, iSTAT mmol/L 3.5 4.9 3.8 Reference range adjusted 0 with implement ation of I-Stat 8+ cartridge . FINAL Nicole muñoz [facility] - [place], [address] [place] [phone] 0 Phone: () - 02/12 iSTAT Na+/K +/Cl- panel Chlor rakan, iSTAT mmol/L 98.0 109.0 100 Reference range adjusted 0 with implement ation of I-Stat 8+ cartridge . FINAL Nicole muñoz [facility] - [place], [address] [place] [id number] 0 Phone: () - 02/12 CBC w/ auto diff WBC K/uL 3.0 8.9 9.0 High FINAL Nicole Ya [place] [facility] - [place], [address] [place] [id number] 0 Phone: () - 02/12 CBC w/ auto diff HGB g/dL 11.3 15.2 8.7 Low FINAL Nicole Carmonaot [facility] - [place], [address] [place] [id number] 0 Phone: () - 02/12 CBC w/ auto diff PLT K/uL 113.0 364.0 154 FINAL Nicole Terrazas [facility] - [place], [address] [place] [id number] 0 Phone: () - 02/12 CBC w/ auto diff Augustus # (ANC) K/uL 1.6 6.6 6.5 FINAL Nicole Terrazas [facility] - [place], [address] [place] [id number] 0 Phone: () - 02/12 CBC w/ auto diff Augustus % % 43.0 74.0 72.4 FINAL Nicole Terrazas [facility] - [place], [address] [place] [id number] 0 Phone: () - 02/12 CBC w/ auto diff IG % % 0.0 0.5 0.9 High FINAL Nicole Terrazas [facility] - [place], [address] [place] [phone] 0 Phone: () - 02/12 CBC w/ auto diff IG # K/uL 0.0 0.03 0.08 High FINAL Nicole Terrazas [facility] - [place], [address] [place] [id number] 0 Phone: () - 02/12 CBC w/ auto diff LY % % 14.0 41.0 17.0 FINAL Nicole Carmonaot [facility] - [place], [address] [place] [id number] 0 Phone: () - 02/12 CBC w/ auto diff MO % % 6.0 15.0 9.4 FINAL Nicole Carmonaot [facility] - [place], [address] [place] [id number] 0 Phone: () - 02/12 CBC w/ auto diff EO % % 0.0 7.0 0.3 FINAL Nicole Carmonaot [facility] - [place], [address] [place] [id number] 0 Phone: () - 02/12 CBC w/ auto diff BA % % 0.0 2.0 0.0 FINAL Nicole Carmonaot [facility] - [place], [address] [place] [id number] 0 Phone: () - 02/12 CBC w/ auto diff LY # K/uL 0.4 3.6 1.5 FINAL Nicole Carmonaot [facility] - [place], [address] [place] [id number] 0 Phone: () - 02/12 CBC w/ auto diff MO # K/uL 0.2 1.3 0.8 FINAL Nicole Carmonaot [facility] - [place], [address] [place] [id number] 0 Phone: () - 02/12 CBC w/ auto diff EO # K/uL 0.0 0.6 0.0 FINAL Nicole Terrazas [facility] - [place], [address] [place] [id number] 0 Phone: () - 02/12 CBC w/ auto diff BA # K/uL 0.0 0.2 0.0 FINAL Nicole Carm[facility]ot [facility] - [place], [address] [place] [id number] 0 Phone: () - 02/12 CBC w/ auto diff NRBC % #/100W BC 0.0 0.2 0.0 FINAL Nicole Carmonaot [facility] - [place], [address] [place] [id number] 0 Phone: () - 02/12 CBC w/ auto diff RBC M/uL 3.9 5.1 2.54 Low FINAL Nicole Felton Mathewot [facility] - [place], [address] [place] [id number] 0 Phone: () - 02/12 CBC w/ auto diff HCT % 35.0 48.0 27.5 Low FINAL Nicole Felton [facility] - [place], [address] [place] [id number] 0 Phone: () - 02/12 CBC w/ auto diff MCV fL 80.0 104.0 108.3 High FINAL Nicole Ya [facility]ot [facility] - [place], [address] [place] [id number] 0 Phone: () - 02/12 CBC w/ auto diff MCH pg 26.0 35.0 34.3 FINAL Nicole Ya [facility] - [place], [address] [place] [id number] 0 Phone: () - 02/12 CBC w/ auto diff MCHC g/dL 30.0 35.0 31.6 FINAL Nicole Ya Mathewdamaris a [facility] - [place], [address] [place] [id number] 0 Phone: () - 02/12 CBC w/ auto diff MPV fL 9.5 13.4 8.3 Low FINAL Nicole Ya [facility] - [place], [address] [place] [id number] 0 Phone: () - 02/12 CBC w/ auto diff RDW % 11.4 16.1 17.40 High FINAL Nicole Felton [facility] - [place], [address] [place] [id number] 0 Phone: () - 03/01 CBC w/ auto diff WBC K/uL 3.0 8.9 4.5 FINAL Nicole Ya [facility]ot [facility] - [place], [address] [place] [id number] 0 Phone: () - 03/01 CBC w/ auto diff HGB g/dL 11.3 15.2 8.8 Low FINAL Nicole Terrazas [facility] - [place], [address] [place] [id number] 0 Phone: () - 03/01 CBC w/ auto diff PLT K/uL 113.0 364.0 154 FINAL Nicole muñoz [facility] - [place], [address] [place] [id number] 0 Phone: () - 03/01 CBC w/ auto diff Augustus # (ANC) K/uL 1.6 6.6 2.2 FINAL Nicole Ya Nini muñoz [facility] - [place], [address] [place] [id number] 0 Phone: () - 03/01 CBC w/ auto diff Augustus % % 43.0 74.0 49.9 FINAL Nicole Felton Nini muñoz [facility] - [place], [address] [place] [id number] 0 Phone: () - 03/01 CBC w/ auto diff IG % % 0.0 0.5 0.7 High FINAL Nicole Ya Nini muñoz [facility] - [place], [address] [place] [id number] 0 Phone: () - 03/01 CBC w/ auto diff IG # K/uL 0.0 0.03 0.03 FINAL Nicole Ya Nini muñoz [facility] - [place], [address] [place] [id number] 0 Phone: () - 03/01 CBC w/ auto diff LY % % 14.0 41.0 32.0 FINAL Nicole muñoz [facility] - [place], [address] [place] [id number] 0 Phone: () - 03/01 CBC w/ auto diff MO % % 6.0 15.0 14.5 FINAL Nicole Ya Mathewdamaris muñoz [facility] - [place], [address] [place] [id number] 0 Phone: () - 03/01 CBC w/ auto diff EO % % 0.0 7.0 2.5 FINAL Nicole Ya Nini muñoz [facility] - [place], [address] [place] [id number] 0 Phone: () - 03/01 CBC w/ auto diff BA % % 0.0 2.0 0.4 FINAL Nicole Ya Nini muñoz [facility] - [place], [address] [place] [id number] 0 Phone: () - 03/01 CBC w/ auto diff LY # K/uL 0.4 3.6 1.4 FINAL Nicole Felton Mathewdamaris muñoz [facility] - [place], [address] [place] [id number] 0 Phone: () - 03/01 CBC w/ auto diff MO # K/uL 0.2 1.3 0.7 FINAL Nicole Felton Mathewdamaris muñoz [facility] - [place], [address] [place] [id number] 0 Phone: () - 03/01 CBC w/ auto diff EO # K/uL 0.0 0.6 0.1 FINAL Nicole Felton Mathewdamaris muñoz [facility] - [place], [address] [place] [id number] 0 Phone: () - 03/01 CBC w/ auto diff BA # K/uL 0.0 0.2 0.0 FINAL Nicole Ya Mathewdamaris muñoz On[facility] - [place], [address] [place] [id number] 0 Phone: () - 03/01 CBC w/ auto diff NRBC % #/100W BC 0.0 0.2 0.0 FINAL Nicole Ya Mathewdamaris muñoz On[facility] - [place], [address] [place] [id number] 0 Phone: () - 03/01 CBC w/ auto diff RBC M/uL 3.9 5.1 2.57 Low FINAL Nicole Ya [facility]wot [facility] - [place], [address] [place] [id number] 0 Phone: () - 03/01 CBC w/ auto diff HCT % 35.0 48.0 28.5 Low FINAL Nicole Ya [facility] - [place], [address] [place] [id number] 0 Phone: () - 03/01 CBC w/ auto diff MCV fL 80.0 104.0 110.9 High FINAL Nicole Ya Mathewdamaris a [facility] - [place], [address] [place] [id number] 0 Phone: () - 03/01 CBC w/ auto diff MCH pg 26.0 35.0 34.2 FINAL Nicole Ya Mathewdamaris [facility] - [place], [address] [place] [id number] 0 Phone: () - 03/01 CBC w/ auto diff MCHC g/dL 30.0 35.0 30.9 FINAL Nicole Ya Mathewdamaris [facility] - [place], [address] [place] [id number] 0 Phone: () - 03/01 CBC w/ auto diff MPV fL 9.5 13.4 8.2 Low FINAL Nicole Felton Mathewdamaris [facility] - [place], [address] [place] [id number] 0 Phone: () - 03/01 CBC w/ auto diff RDW % 11.4 16.1 15.70 FINAL Nicole Ya Mathewdamaris [facility] - [place], [address] [place] [id number] 0 Phone: () - 03/01 CMP Album in g/dL 3.2 5.2 3.4 FINAL Nicole Ya Mathewdamaris muñoz [facility] - [place], [address] [place] [id number] 0 Phone: () - 03/01 CMP Alkal ine phosp hatas e U/L 46.0 116.0 89 FINAL Nicole Terrazas [facility], [address] [facility] [address] [facility] [id number] 0 Phone: () - 03/01 CMP ALT/S GPT U/L 7.0 40.0 15 FINAL [facility] [address] [facility] [address] [facility] [id number] 0 Phone: () - 03/01 CMP AST/S GOT U/L 13.0 40.0 18 FINAL [place] [address] [facility] 100 [facility] [id number] 0 Phone: () - 03/01 CMP BUN mg/dL 9.0 23.0 9.0 FINAL [place] [address] [facility] 100 [facility] [id number] 0 Phone: () - 03/01 CMP Calci um mg/dL 8.7 10.4 8.5 Low FINAL [place] [address] [id number] 0 Phone: () - 03/01 CMP Chlor rakan mmol/L 96.0 114.0 113 FINAL [place] [address] [id number] 0 Phone: () - 03/01 CMP CO2 [...] the 96 hour stability window. FINAL [place] [address] [id number] 0 Phone: () - 03/01 CMP Creat inine mg/dL 0.5 1.2 0.98 FINAL Nicole Terrazas [facility], [address] [facility] [id number] 0 Phone: () - 03/01 CMP GFR estim ate ml/min /1.73m ^2 62.4 GFR is calculate d using the CKD-EPI equation. FINAL Nicole Terrazas [place] [address] [id number] 0 Phone: () - 03/01 CMP Gluco se mg/dL 73.0 126.0 136 High FINAL Nicole Terrazas [place] [address] [id number] 0 Phone: () - 03/01 CMP Potas sium mmol/L 3.5 5.1 4.3 FINAL [place] [address] [id number] 0 Phone: () - 03/01 CMP Sodiu m mmol/L 136.0 145.0 147 High FINAL Ni[place]le [place] [address] [id number] 0 Phone: () - 03/01 CMP Bilir ubin, total mg/dL 0.3 1.2 0.5 FINAL [place] [address] [id number] 0 Phone: () - 03/01 CMP Total prote in g/dL 5.7 8.2 5.2 Low FINAL [place] [address] [id number] 0 Phone: () - 04/12 CMP Album in g/dL 3.2 5.2 3.8 FINAL [place] [address] [id number] 0 Phone: () - 04/12 CMP Alkal ine phosp hatas e U/L 46.0 116.0 90 FINAL [place] [address] [id number] [phone] Phone: () - 04/12 CMP ALT/S GPT U/L 7.0 40.0 17 FINAL [place] [address] [id number] [phone] Phone: () - 04/12 CMP AST/S GOT U/L 13.0 40.0 18 FINAL Nicole Terraz[place] [address] [id number] [phone] Phone: () - 04/12 CMP BUN mg/dL 9.0 23.0 14.0 FINAL Nicole Terrazas [facility] [address] [facility] [address] [id number] 0 Phone: () - 04/12 CMP Calci um mg/dL 8.7 10.4 9.1 FINAL Nicole muñoz [facility] [address] [id number] 0 Phone: () - 04/12 CMP Chlor rakan mmol/L 96.0 114.0 110 [place]AL [place] [address] [id number] 0 Phone: () - 04/12 CMP CO2 [...] 96 hour stability window. FINAL Nicole muñoz [place] [address] [id number] 0 Phone: () - 04/12 CMP Creat inine mg/dL 0.5 1.2 0.86 FINAL Nicole Terrazas [facility], [facility] N [address] [phone] 0 Phone: () - 04/12 CMP GFR estim ate ml/min /1.73m ^2 73.0 GFR is calculate d using the CKD-EPI equation. FINAL Nicole muñoz [facility], [facility] N [address] [id number] 0 Phone: () - 04/12 CMP Gluco se mg/dL 73.0 126.0 85 FINAL [place] [address] [id number] 0 Phone: () - 04/12 CMP Potas sium mmol/L 3.5 5.1 3.8 FINAL Nicole muñoz [facility], [address] [facility] [phone] 0 Phone: () - 04/12 CMP Sodiu m mmol/L 136.0 145.0 146 High FINAL Nicole muñoz [facility], [address] [facility] [id number] 0 Phone: () - 04/12 CMP Bilir ubin, total mg/dL 0.3 1.2 0.3 FINAL Nicole muñoz [facility], [address] [facility] [address] [facility] [id number] 0 Phone: () - 04/12 CMP Total prote in g/dL 5.7 8.2 5.6 Low FINAL Nicole muñoz [facility], [address] [facility] [address] [facility] [id number] 0 Phone: () - 04/12 CBC w/ auto diff WBC K/uL 3.0 8.9 5.3 FINAL Nicole muñoz [facility] [place], [address] [place] [id number] 0 Phone: () - 04/12 CBC w/ auto diff HGB g/dL 11.3 15.2 9.4 Low FINAL Nicole muñoz [facility] [place], [address] [place] [phone] 0 Phone: () - 04/12 CBC w/ auto diff PLT K/uL 113.0 364.0 167 FINAL Nicole muñoz [facility] [place], [address] [place] [id number] 0 Phone: () - 04/12 CBC w/ auto diff Augustus # (ANC) K/uL 1.6 6.6 3.0 FINAL Nicole muñoz [facility] [place], [address] [place] [id number] 0 Phone: () - 04/12 CBC w/ auto diff Augustus % % 43.0 74.0 57.5 FINAL Nicole Carmonaot [facility] [place], [address] [place] [id number] 0 Phone: () - 04/12 CBC w/ auto diff IG % % 0.0 0.5 0.4 FINAL Nicole Carmonaot [facility] [place], [address] [place] [id number] 0 Phone: () - 04/12 CBC w/ auto diff IG # K/uL 0.0 0.03 0.02 FINAL Nicole Carmonaot [facility] [place], [address] [place] [id number] 0 Phone: () - 04/12 CBC w/ auto diff LY % % 14.0 41.0 28.6 FINAL Nicole Carmonaot [facility] [place], [address] [place] [id number] 0 Phone: () - 04/12 CBC w/ auto diff MO % % 6.0 15.0 11.6 FINAL Nicole Carmonaot [facility] [place], [address] [place] [id number] 0 Phone: () - 04/12 CBC w/ auto diff EO % % 0.0 7.0 1.5 FINAL Nicole Carmonaot [facility] [place], [address] [place] [id number] 0 Phone: () - 04/12 CBC w/ auto diff BA % % 0.0 2.0 0.4 FINAL Nicole Carmonaot [facility] [place], [address] [place] [id number] 0 Phone: () - 04/12 CBC w/ auto diff LY # K/uL 0.4 3.6 1.5 FINAL Nicole Carmonaot [facility] [place], [address] [place] [id number] 0 Phone: () - 04/12 CBC w/ auto diff MO # K/uL 0.2 1.3 0.6 FINAL Nicole muñoz [facility] [place], [address] [place] [id number] 0 Phone: () - 04/12 CBC w/ auto diff EO # K/uL 0.0 0.6 0.1 FINAL Nicole muñoz [facility] [place], [address] [place] [id number] 0 Phone: () - 04/12 CBC w/ auto diff BA # K/uL 0.0 0.2 0.0 FINAL Nicole muñoz [facility] [place], [address] [place] [id number] 0 Phone: () - 04/12 CBC w/ auto diff NRBC % #/100W BC 0.0 0.2 0.0 FINAL Nicole Ya Nini muñoz [facility] [place], [address] [place] [id number] 0 Phone: () - 04/12 CBC w/ auto diff RBC M/uL 3.9 5.1 2.94 Low FINAL Nicole muñoz [facility] [place], [address] [place] [id number] 0 Phone: () - 04/12 CBC w/ auto diff HCT % 35.0 48.0 29.6 Low FINAL Nicole muñoz [facility] [place], [address] [place] [id number] 0 Phone: () - 04/12 CBC w/ auto diff MCV fL 80.0 104.0 100.7 FINAL Nicole muñoz [facility] [place], [address] [place] [id number] 0 Phone: () - 04/12 CBC w/ auto diff MCH pg 26.0 35.0 32.0 FINAL Nicole muñoz [facility] [place], [address] [place] [id number] 0 Phone: () - 04/12 CBC w/ auto diff MCHC g/dL 30.0 35.0 31.8 FINAL Nicole Felton Mathewot [facility] [place], [address] [place] [id number] 0 Phone: () - 04/12 CBC w/ auto diff MPV fL 9.5 13.4 9.5 FINAL Nicole Felton [facility] [place], [address] [place] [id number] 0 Phone: () - 04/12 CBC w/ auto diff RDW % 11.4 16.1 12.30 FINAL Nicole Felton [facility] [place], [address] [place] [id number] 0 Phone: () - 04/12 PRIOR RESUL T Not Given FINAL Nicole Ya Deliv, [facility] [address] [place] [id number] 4 04/12 SOURC E: Periphe ral Blood FINAL Nicole Ya Deliv, [facility] [address] [place] [id number] 4 04/12 BCR ABL1/ ABL1 % % 0.000 FINAL Nicole Ya Deliv, [facility] [address] [place] [id number] 4 04/12 BCR ABL1/ ABL1 % (IS) % 0.000 FINAL Nicole Ya Deliv, [facility] [address] [place] [id number] 4 04/12 INTER PRETA TION see note [...] additiona l informati on, please refer tohttp:// [employer] .[employer]/faq/F AQ72(This link is being provided forinform ational/e ducationa l purposes only.)Ass ay sensitivi ty is at least 4.5-logs below baselineB CR-ABL1 transcrip t levels but is dependent onquantit y and quality of RNA used for testing and thecellul arity of the sample.Th is test was developed and its analytica lperforma nce character istics have been determine dby [facility] [place], [place].It has not been cleared or approved by the FDA. Thisassay has been validated pursuant to the CLIAregul ations and is used for clinical purposes. Alejandro Ya, Ph.D, HCLD (ABB)Scie ntific Director, Molecular Oncology FINAL Nicoledarius Ya Deliv, [facility] [address] [place] [id number] 4 04/12 P190 BCR ABL1 Not Detecte d FINAL Nicole Kash, [facility] [address] [place] [id number] 4 04/12 P210 BCR ABL1 Not Detecte d FINAL Nicole Kash, [facility] [address] [place] [id number] 4 06/04 CBC w/ auto diff WBC K/uL 3.0 8.9 6.2 FINAL Nicole Carmonaot a [facility] [place], [address] [place] [id number] 0 Phone: () - 06/04 CBC w/ auto diff HGB g/dL 11.3 15.2 12.8 FINAL Nicole Carmonaot a [facility] [place], [address] [place] [id number] 0 Phone: () - 06/04 CBC w/ auto diff PLT K/uL 113.0 364.0 177 FINAL Nicole Carmonaot a [facility] [place], [address] [place] [id number] 0 Phone: () - 06/04 CBC w/ auto diff Augustus # (ANC) K/uL 1.6 6.6 4.0 FINAL Nicole Carmonaot a [facility] [place], [address] [place] [id number] 0 Phone: () - 06/04 CBC w/ auto diff Augustus % % 43.0 74.0 63.9 FINAL Nicole Terrazas a [facility] [place], [address] [place] [id number] 0 Phone: () - 06/04 CBC w/ auto diff IG % % 0.0 0.5 0.2 FINAL Nicole Ya Mathewot [facility] [place], [address] [place] [id number] 0 Phone: () - 06/04 CBC w/ auto diff IG # K/uL 0.0 0.03 0.01 FINAL Nicole Terrazas a [facility] [place], [address] [place] [id number] 0 Phone: () - 06/04 CBC w/ auto diff LY % % 14.0 41.0 27.5 FINAL Nicole Terrazas a [facility] [place], [address] [place] [id number] 0 Phone: () - 06/04 CBC w/ auto diff MO % % 6.0 15.0 7.9 FINAL Nicole Carmonaot a [facility] [place], [address] [place] [id number] 0 Phone: () - 06/04 CBC w/ auto diff EO % % 0.0 7.0 0.2 FINAL Nicole Ya Mathewot [facility] [place], [address] [place] [id number] 0 Phone: () - 06/04 CBC w/ auto diff BA % % 0.0 2.0 0.3 FINAL Nicole Carmonaot a [facility] [place], [address] [place] [id number] 0 Phone: () - 06/04 CBC w/ auto diff LY # K/uL 0.4 3.6 1.7 FINAL Nicole Carmonaot a [facility] [place], [address] [place] [id number] 0 Phone: () - 06/04 CBC w/ auto diff MO # K/uL 0.2 1.3 0.5 FINAL Nicole Ay Mathewot [facility] [place], [address] [place] [id number] 0 Phone: () - 06/04 CBC w/ auto diff EO # K/uL 0.0 0.6 0.0 FINAL Nicole Ya Mathewot [facility] [place], [address] [place] [id number] 0 Phone: () - 06/04 CBC w/ auto diff BA # K/uL 0.0 0.2 0.0 FINAL Nicole Carmonaot a [facility] [place], [address] [place] [id number] 0 Phone: () - 06/04 CBC w/ auto diff NRBC % #/100W BC 0.0 0.2 0.0 FINAL Nicole Ya Mathewot [facility] [place], [address] [place] [id number] 0 Phone: () - 06/04 CBC w/ auto diff RBC M/uL 3.9 5.1 4.27 FINAL Nicole Ya Mathewot [facility] [place], [address] [place] [id number] 0 Phone: () - 06/04 CBC w/ auto diff HCT % 35.0 48.0 39.5 FINAL Nicole Terrazas a [facility] [place], [address] [place] [id number] 0 Phone: () - 06/04 CBC w/ auto diff MCV fL 80.0 104.0 92.5 FINAL Nicole muñoz [facility] [place], [address] [place] [id number] 0 Phone: () - 06/04 CBC w/ auto diff MCH pg 26.0 35.0 30.0 FINAL Nicole muñoz [facility] [place], [address] [place] [id number] 0 Phone: () - 06/04 CBC w/ auto diff MCHC g/dL 30.0 35.0 32.4 FINAL Nicole muñoz [facility] [place], [address] [place] [id number] 0 Phone: () - 06/04 CBC w/ auto diff MPV fL 9.5 13.4 9.3 Low FINAL Nicole umñoz [facility] [place], [address] [place] [id number] 0 Phone: () - 06/04 CBC w/ auto diff RDW % 11.4 16.1 12.70 FINAL Nicole muñoz [facility] [place], [address] [place] [id number] 0 Phone: () - 06/04 iSTAT K+ panel Potas sium, iSTAT mmol/L 3.5 4.9 3.8 Reference range adjusted 0 with implement ation of I-Stat 8+ cartridge . FINAL Nicole muñoz [facility] [place], [address] [place] [id number] 0 Phone: () - 07/05 CBC w/ auto diff WBC K/uL 3.0 8.9 3.3 FINAL Nicole muñoz [facility] [place], [address] [place] [id number] 0 Phone: () - 07/05 CBC w/ auto diff HGB g/dL 11.3 15.2 11.9 FINAL Nicole Carmonaot a [facility] [place], [address] [place] [id number] 0 Phone: () - 07/05 CBC w/ auto diff PLT K/uL 113.0 364.0 163 FINAL Nicole Carmonaot a [facility] [place], [address] [place] [id number] 0 Phone: () - 07/05 CBC w/ auto diff Augustus # (ANC) K/uL 1.6 6.6 2.0 FINAL Nicole Felton [facility] [place], [address] [place] [id number] 0 Phone: () - 07/05 CBC w/ auto diff Augustus % % 43.0 74.0 58.6 FINAL Nicole Felton [facility] [place], [address] [place] [id number] 0 Phone: () - 07/05 CBC w/ auto diff IG % % 0.0 0.5 0.3 FINAL Nicole Felton [facility] [place], [address] [place] [id number] 0 Phone: () - 07/05 CBC w/ auto diff IG # K/uL 0.0 0.03 0.01 FINAL Nicole Ya Mathe[facility]ot [facility] [place], [address] [place] [id number] 0 Phone: () - 07/05 CBC w/ auto diff LY % % 14.0 41.0 24.3 FINAL Nicole Ya Mathewot [facility] [place], [address] [place] [id number] 0 Phone: () - 07/05 CBC w/ auto diff MO % % 6.0 15.0 16.2 High FINAL Nicoledarius Carmonaot a [facility] [place], [address] [place] [id number] 0 Phone: () - 07/05 CBC w/ auto diff EO % % 0.0 7.0 0.3 FINAL Nicole Carmonaot a [facility] [place], [address] [place] [id number] 0 Phone: () - 07/05 CBC w/ auto diff BA % % 0.0 2.0 0.3 FINAL Nicole Terrazas a [facility] [place], [address] [place] [id number] 0 Phone: () - 07/05 CBC w/ auto diff LY # K/uL 0.4 3.6 0.8 FINAL Nicole Ya Nini a [facility] [place], [address] [place] [id number] 0 Phone: () - 07/05 CBC w/ auto diff MO # K/uL 0.2 1.3 0.5 FINAL Nicole Ya Nini a [facility] [place], [address] [place] [id number] 0 Phone: () - 07/05 CBC w/ auto diff EO # K/uL 0.0 0.6 0.0 FINAL Nicole Ya Nini a [facility] [place], [address] [place] [id number] 0 Phone: () - 07/05 CBC w/ auto diff BA # K/uL 0.0 0.2 0.0 FINAL Nicole Ya Nini a [facility] [place], [address] [place] [id number] 0 Phone: () - 07/05 CBC w/ auto diff NRBC % #/100W BC 0.0 0.2 0.0 FINAL Nicole Felton Nini a [facility] [place], [address] [place] [id number] 0 Phone: () - 07/05 CBC w/ auto diff RBC M/uL 3.9 5.1 3.95 FINAL Nicole Ya Mathewot [facility] [place], [address] [place] [id number] 0 Phone: () - 07/05 CBC w/ auto diff HCT % 35.0 48.0 36.7 FINAL Nicole Ya Mathewot [facility] [place], [address] [place] [id number] 0 Phone: () - 07/05 CBC w/ auto diff MCV fL 80.0 104.0 92.9 FINAL Nicole Felton [facility] [place], [address] [place] [id number] 0 Phone: () - 07/05 CBC w/ auto diff MCH pg 26.0 35.0 30.1 FINAL Nicole Felton [facility] [place], [address] [place] [id number] 0 Phone: () - 07/05 CBC w/ auto diff MCHC g/dL 30.0 35.0 32.4 FINAL Nicole Felton [facility] [place], [address] [place] [id number] 0 Phone: () - 07/05 CBC w/ auto diff MPV fL 9.5 13.4 8.8 Low FINAL Nicole Felton [facility] [place], [address] [place] [id number] 0 Phone: () - 07/05 CBC w/ auto diff RDW % 11.4 16.1 14.10 FINAL Nicole Felton [facility] [place], [address] [place] [id number] 0 Phone: () - 07/05 CMP Album in g/dL 3.2 5.2 4.4 FINAL Nicole Ya * [facility] [place], [address] [place] [id number] 0 Phone: () - 07/05 CMP Alkal ine phosp hatas e U/L 46.0 116.0 107 FINAL [facility] [address] [facility] 100 [facility] [id number] 0 Phone: () - 07/05 CMP ALT/S GPT U/L 7.0 40.[address] [facility], [address] [facility] 100 [facility] [id number] 0 Phone: () - 07/05 CMP AST/S GOT U/L 13.0 40.0 23 FINAL Nicole Najera [place] [address] [address] [facility] [address] [id number] 0 Phone: () - 07/05 CMP BUN mg/dL 9.0 23.0 15.0 FINAL Nicole Najera [facility] [address] [facility] [address] [id number] 0 Phone: () - 07/05 CMP Calci um mg/dL 8.7 10.4 10.[address] [facility], [address] [facility] [address] [id number] 0 Phone: () - 07/05 CMP Chlor rakan mmol/L 96.0 114.0 109 FINAL Nicole Najera [place] [address] [id number] 0 Phone: () - 07/05 CMP CO2 [...] the 96 hour stability window. FINAL [facility], [facility] N [facility] [address] [id number] 0 Phone: () - 07/05 CMP Creat inine mg/dL 0.5 1.2 1.[address] [facility], [address] [facility] [address] [id number] 0 Phone: () - 07/05 CMP GFR estim ate ml/min /1.73m ^2 56.7 Low GFR is calculate d using the CKD-EPI equation. FINAL Nicoledarius Najera [facility], [address] [facility] [address] [facility] [id number] 0 Phone: () - 07/05 CMP Gluco se mg/dL 73.0 126.[address] [facility], [address] [facility] [address] [facility] [id number] 0 Phone: () - 07/05 CMP Potas sium mmol/L 3.5 5.1 4.[address] [facility], [address] [facility] [address] [facility] [id number] 0 Phone: () - 07/05 CMP Sodiu m mmol/L 136.0 145.0 143 FINAL Nicole Ya * [facility], [address] [id number] 0 Phone: () - 07/05 CMP Bilir ubin, total mg/dL 0.3 1.2 0.[address] [facility], [address] [facility] [address] [facility] [id number] 0 Phone: () - 07/05 CMP Total prote in g/dL 5.7 8.2 6.[address] [facility], [address] [id number] 0 Phone: () - 12/02 PRIOR RESUL T See Report FINAL Nicole NEGRETE [facility] [address] [place] [id number] 4 12/02 SOUR E: Periphe ral Blood FINAL Nicole NEGRETE, [facility] [address] [place] [id number] 4 12/02 BCR ABL1/ ABL1 % % 0.000 FINAL Nicole NEGRETE [facility] [address] [place] [id number] 4 12/02 BCR ABL1/ ABL1 % (IS) % 0.000 FINAL Nicole Ya Deliv, [facility] [address] [place] [id number] 4 12/02 INTER PRETA TION see note [...] l informati on, please refer tohttp:// education .[employer]/faq/F AQ72(This link is being provided forinform ational/e ducationa l purposes only.)Ass ay sensitivi ty is at least 4.5-logs below baselineB CR-ABL1 transcrip t levels but is dependent onquantit y and quality of RNA used for testing and thecellul arity of the sample.Th is test was developed and its analytica lperforma nce character istics have been determine dby [facility] , [place], [place].It has not been cleared or approved by the FDA. Thisassay has been validated pursuant to the CLIAregul ations and is used for clinical purposes. Alejandro Ya, Ph.D, HCLD (ABB)Scie ntific Director, Molecular Oncology FINAL Nicole Ya Deliv, [facility] [address] [place] [id number] 4 12/02 P190 BCR ABL1 Not Detecte d FINAL Nicole Ya Deliv, [facility] [address] [place] [id number] 4 12/02 P210 BCR ABL1 Not Detecte d FINAL Nicole Ya Deliv, [facility] [address] [facility] [id number] 4 12/02 CMP Album in g/dL 3.5 5.0 4.3 FINAL Nicole Ya * [facility], [address] [facility] [id number] 0 12/02 CMP Alkal ine phosp hatas e U/L 36.0 125.0 126 High FINAL Nicole Ya * [facility], [address] [facility] [id number] 0 12/02 CMP ALT/S GPT U/L 0.0 34.0 29 FINAL Nicole Ya * [facility], [address] [facility] [id number] 0 12/02 CMP AST/S GOT U/L 14.0 36.0 39 High FINAL Nicole Ya * [facility], [address] [facility] [id number] 0 12/02 CMP BUN mg/dL 7.0 17.0 14.0 FINAL Nicole Ya * [facility], [address] [facility] [id number] 0 12/02 CMP Calci um mg/dL 8.4 10.2 9.1 FINAL Nicole Ya * [facility], [address] [facility] [id number] 0 12/02 CMP Chlor rakan mmol/L 96.0 107.0 108 High FINAL Nicole Ya * [facility], [address] [facility] [id number] 0 12/02 CMP CO2 mmol/L 22.0 30.0 [...] 96 hour stability window. FINAL Nicole Najera [facility] [address] [id number] 0 12/02 CMP Creat inine mg/dL 0.66 1.25 1.30 High FINAL Nicole Ya Dania [facility], [facility] [address] [id number] 0 12/02 CMP GFR estim ate ml/min /1.73m ^2 44.3 Low GFR is calculate d using the CKD-EPI equation. FINAL Nicole Najera [facility] [address] [id number] 0 12/02 CMP Gluco se mg/dL 74.0 100.0 126 High FINAL Nicole Najera [facility], [facility] [address] [id number] 0 12/02 CMP Potas sium mmol/L 3.5 5.1 3.9 FINAL Nicole Najera [facility], [address] [facility] [address] [id number] 0 12/02 CMP Sodiu m mmol/L 137.0 145.0 140 FINAL Nicole Najera [facility] [address] [id number] 0 12/02 CMP Bilir ubin, total mg/dL 0.2 1.3 0.7 FINAL Nicole Najera [facility] [place], [address] [place] [id number] 0 12/02 CMP Total prote in g/dL 6.3 8.2 6.5 FINAL Nicole Ya Dania [facility] [place], [address] [place] [id number] 0 12/02 CBC w/ auto diff WBC K/uL 3.0 8.9 4.0 FINAL Nicole Ya [facility] [place], [address] [place] [id number] 0 Phone: () - 12/02 CBC w/ auto diff HGB g/dL 11.3 15.2 12.8 FINAL Nicole Ya Nini [facility] [place], [address] [place] [id number] 0 Phone: () - 12/02 CBC w/ auto diff PLT K/uL 113.0 364.0 175 FINAL Nicole Ya Nini [facility] [place], [address] [place] [id number] 0 Phone: () - 12/02 CBC w/ auto diff Augustus # (ANC) K/uL 1.6 6.6 2.5 FINAL Nicole Ya [facility] [place], [address] [place] [id number] 0 Phone: () - 12/02 CBC w/ auto diff Augustus % % 43.0 74.0 63.2 FINAL Nicole Ya Mathewdamaris [facility] [place], [address] [place] [id number] 0 Phone: () - 12/02 CBC w/ auto diff IG % % 0.0 0.5 0.3 FINAL Nicole Ya Mathewdamaris [facility] [place], [address] [place] [id number] 0 Phone: () - 12/02 CBC w/ auto diff IG # K/uL 0.0 0.03 0.01 FINAL Nicole Carmonaot [facility] [place], [address] [place] [id number] 0 Phone: () - 12/02 CBC w/ auto diff LY % % 14.0 41.0 25.7 FINAL Nicole Carmonaot [facility] [place], [address] [place] [id number] 0 Phone: () - 12/02 CBC w/ auto diff MO % % 6.0 15.0 10.8 FINAL Nicole Carmonaot [facility] [place], [address] [place] [id number] 0 Phone: () - 12/02 CBC w/ auto diff EO % % 0.0 7.0 0.0 FINAL Nicole Carmonaot [facility] [place], [address] [place] [id number] 0 Phone: () - 12/02 CBC w/ auto diff BA % % 0.0 2.0 0.0 FINAL Nicole Carmonaot [facility] [place], [address] [place] [id number] 0 Phone: () - 12/02 CBC w/ auto diff LY # K/uL 0.4 3.6 1.0 FINAL Nicole Terrazas [facility] [place], [address] [place] [phone] 0 Phone: () - 12/02 CBC w/ auto diff MO # K/uL 0.2 1.3 0.4 FINAL Nicole Carmonaot [facility] [place], [address] [place] [id number] 0 Phone: () - 12/02 CBC w/ auto diff EO # K/uL 0.0 0.6 0.0 FINAL Nicole Carmonaot [facility] [place], [address] [place] [id number] 0 Phone: () - 12/02 CBC w/ auto diff BA # K/uL 0.0 0.2 0.0 FINAL Nicole Carmonaot [facility] [place], [address] [place] [id number] 0 Phone: () - 12/02 CBC w/ auto diff NRBC % #/100W BC 0.0 0.2 0.0 FINAL Nicole Carmonaot [facility] [place], [address] [place] [id number] 0 Phone: () - 12/02 CBC w/ auto diff RBC M/uL 3.9 5.1 3.98 FINAL Nicole Terrazas [facility] [place], [address] [place] [id number] 0 Phone: () - 12/02 CBC w/ auto diff HCT % 35.0 48.0 38.6 FINAL Nicole muñoz [facility] - [place], [address] [place] [id number] 0 Phone: () - 12/02 CBC w/ auto diff MCV fL 80.0 104.0 97.0 FINAL Nicole muñoz [facility] - [place], [address] [place] [id number] 0 Phone: () - 12/02 CBC w/ auto diff MCH pg 26.0 35.0 32.2 FINAL Nicole muñoz [facility] - [place], [address] [place] [id number] 0 Phone: () - 12/02 CBC w/ auto diff MCHC g/dL 30.0 35.0 33.2 FINAL Nicole Terrazas [facility] [place], [address] [place] [id number] 0 Phone: () - 12/02 CBC w/ auto diff MPV fL 9.5 13.4 9.1 Low FINAL Nicole Carmonaot [facility] [place], [address] [place] [id number] 0 Phone: () - 12/02 CBC w/ auto diff RDW % 11.4 16.1 12.70 FINAL Nicole Ya [place] [facility] [place], [address] [place] [id number] 0 Phone: () - 03/30 [facility] other lab See saw setter d 05/21 [facility] other lab See saw setter d 06/15 CBC w/ auto diff WBC K/uL 3.0 8.9 4.7 FINAL Nicole Ya [place] [facility] , [address] [place] [id number] 0 06/15 CBC w/ auto diff HGB g/dL 11.3 15.2 13.6 FINAL Nicole Ya [place] [facility] , [address] [place] [id number] 0 06/15 CBC w/ auto diff PLT K/uL 113.0 364.0 151 FINAL Nicole Ya [place] [facility] , [address] [place] [id number] 0 06/15 CBC w/ auto diff Augustus # (ANC) K/uL 1.6 6.6 2.9 FINAL Nicole Ya [place] [facility] , [address] [place] [id number] 0 06/15 CBC w/ auto diff Augustus % % 43.0 74.0 61.4 FINAL Nicole Ya [place] [facility] , [address] [place] [id number] 0 06/15 CBC w/ auto diff IG % % 0.0 0.5 0.2 FINAL Nicole Ya [place] [facility] , [address] [place] [id number] 0 06/15 CBC w/ auto diff IG # K/uL 0.0 0.03 0.01 FINAL Nicole Ya [place] [facility] , [address] [place] [id number] 0 06/15 CBC w/ auto diff LY % % 14.0 41.0 28.3 FINAL Nicole Ya [place] [facility] , [address] [place] [id number] 0 06/15 CBC w/ auto diff MO % % 6.0 15.0 10.1 FINAL Nicole Ya [place] [facility] , [address] [place] [id number] 0 06/15 CBC w/ auto diff EO % % 0.0 7.0 0.0 FINAL Nicole Ya [place] [facility] , [address] [place] [id number] 0 06/15 CBC w/ auto diff BA % % 0.0 2.0 0.0 FINAL Nicole Ya [place] [facility] , [address] [place] [id number] 0 06/15 CBC w/ auto diff LY # K/uL 0.4 3.6 1.3 FINAL Nicole Ya [place] [facility] , [address] [place] [id number] 0 06/15 CBC w/ auto diff MO # K/uL 0.2 1.3 0.5 FINAL Nicole Ya [place] [facility] , [address] [place] [id number] 0 06/15 CBC w/ auto diff EO # K/uL 0.0 0.6 0.0 FINAL Nicole Ya [place] [facility] , [address] [place] [id number] 0 06/15 CBC w/ auto diff BA # K/uL 0.0 0.2 0.0 FINAL Nicole Ya [place] [facility] , [address] [place] [id number] 0 06/15 CBC w/ auto diff NRBC % #/100W BC 0.0 0.2 0.0 FINAL Nicole Ya [place] [facility] , [address] [place] [id number] 0 06/15 CBC w/ auto diff RBC M/uL 3.9 5.1 4.32 FINAL Nicole Ya [place] [facility] , [address] [place] [id number] 0 06/15 CBC w/ auto diff HCT % 35.0 48.0 41.6 FINAL Nicole Ya [place] [facility] , [address] [place] [id number] 0 06/15 CBC w/ auto diff MCV fL 80.0 104.0 96.3 FINAL Nicole Ya [place] [facility] , [address] [place] [id number] 0 06/15 CBC w/ auto diff MCH pg 26.0 35.0 31.5 FINAL Nicole Ya [place] [facility] , [address] [place] [id number] 0 06/15 CBC w/ auto diff MCHC g/dL 30.0 35.0 32.7 FINAL Nicole Ya [place] [facility] , [address] [place] [id number] 0 06/15 CBC w/ auto diff MPV fL 9.5 13.4 9.3 Low FINAL Nicole Ya [place] [facility] , [address] [facility] [address] [place] [id number] 0 06/15 CBC w/ auto diff RDW % 11.4 16.1 12.00 FINAL Nicole Ya [place] [facility] , [address] [facility] [address] [place] [facility] [id number] 0 06/15 CMP Album in g/dL 3.5 5.0 4.6 FINAL Nicole Ya * [facility] , [address] [facility] [id number] 0 06/15 CMP Alkal ine phosp hatas e U/L 36.0 125.0 92 FINAL Nicole aY * [facility] , [address] [facility] [id number] 0 06/15 CMP ALT/S GPT U/L 0.0 34.0 44 High FINAL Nicole Ya * [facility] , [address] [facility] [id number] 0 06/15 CMP AST/S GOT U/L 14.0 36.0 43 High FINAL Nicole Ya * [facility] , [address] [facility] [id number] 0 06/15 CMP BUN mg/dL 7.0 17.0 17.0 FINAL Nicole Ya * [facility] , [address] [facility] [id number] 0 06/15 CMP Calci um mg/dL 8.4 10.2 9.6 FINAL Nicole Ya * [facility] , [address] [facility] [id number] 0 06/15 CMP Chlor rakan mmol/L 96.0 107.0 106 FINAL Nicole Ya * [facility] , [facility] [address] [id number] 0 06/15 CMP CO2 mmol/L 22.0 30.0 [...] hour stability window. FINAL Nicole Ya * [facility] , [facility] [address] [id number] 0 06/15 CMP Creat inine mg/dL 0.66 1.25 1.30 High FINAL Nicole Ya * [facility] , [facility] [address] [id number] 0 06/15 CMP GFR estim ate ml/min /1.73m ^2 44.1 Low GFR is calculate d using the CKD-EPI equation. FINAL Nicole Ya * [facility] , [facility] [address] [id number] 0 06/15 CMP Gluco se mg/dL 74.0 100.0 94 FINAL Nicole Ya * [facility] , [facility] [address] [id number] 0 06/15 CMP Potas sium mmol/L 3.5 5.1 4.1 FINAL Nicoledarius Ya * [facility] , [facility] [address] [id number] 0 06/15 CMP Sodiu m mmol/L 137.0 145.0 140 FINAL Nicoledarius Ya * [place] [facility] [place] [facility] , [address] [facility] [id number] 0 06/15 CMP Bilir ubin, total mg/dL 0.2 1.3 0.9 FINAL Nicole Ya * [facility] , [address] [facility] [id number] 0 06/15 CMP Total prote in g/dL 6.3 8.2 6.7 FINAL Nicole Ya * [facility] , [address] [facility] [id number] 0 06/15 PRIOR RESUL T See Report FINAL Nicole Ya PENEL[place], [facility] [address] [place] [id number] 4 06/15 SOURC E: Periphe ral Blood FINAL Nicole Felton NEGRETE, [facility] [address] [place] [id number] 4 06/15 BCR ABL1/ ABL1 % % 0.000 FINAL Nicoledarius NEGRETE, [facility] [address] [place] [id number] 4 06/15 BCR ABL1/ ABL1 % (IS) % 0.000 FINAL Nicole Ya PENELOPE, [facility] [address] [place] [id number] 4 06/15 INTER PRETA TION see note [...] l informati on, please refer tohttp:// education .[employer]/faq/F AQ72(This link is being provided forinform ational/e ducationa l purposes only.)Ass ay sensitivi ty is at least 4.5-logs below baselineB CR-ABL1 transcrip t levels but is dependent onquantit y and quality of RNA used for testing and thecellul arity of the sample.Th is test was developed and its analytica lperforma nce character istics have been determine dby [facility] [place].It has not been cleared or approved by the FDA. Thisassay has been validated pursuant to the CLIAregul ations and is used for clinical purposes. Denver wilson M.D. FINAL Nicole Ya Deliv, [facility] [address] [place] [id number] 4 06/15 P190 BCR ABL1 Not Detecte d FINAL Nicoledarius Ya Deliv, [facility] [address] [place] [id number] 4 06/15 P210 BCR ABL1 Not Detecte d FINAL Nicoledarius Ya Deliv, [facility] [address] [place] [id number] 4 01/06 CBC w/ auto diff WBC K/uL 3.0 8.9 4.5 FINAL Nicole Ya [place] [facility] , [address] [place] [id number] 0 01/06 CBC w/ auto diff HGB g/dL 11.3 15.2 12.8 FINAL Nicole Ya [place] [facility] , [address] [place] [id number] 0 01/06 CBC w/ auto diff PLT K/uL 113.0 364.0 153 FINAL Nicole Ya [place] [facility] , [address] [place] [id number] 0 01/06 CBC w/ auto diff Augustus # (ANC) K/uL 1.6 6.6 2.8 FINAL Nicole Ya [place] [facility] , [address] [place] [id number] 0 01/06 CBC w/ auto diff Augustus % % 43.0 74.0 61.5 FINAL Nicole Ya [place] [facility] , [address] [place] [id number] 0 01/06 CBC w/ auto diff IG % % 0.0 0.5 0.4 FINAL Nicole Ya [place] [facility] , [address] [place] [id number] 0 01/06 CBC w/ auto diff IG # K/uL 0.0 0.03 0.02 FINAL Nicole Ya [place] [facility] , [address] [place] [id number] 0 01/06 CBC w/ auto diff LY % % 14.0 41.0 25.4 FINAL Nicole Ya [place] [facility] , [address] [place] [id number] 0 01/06 CBC w/ auto diff MO % % 6.0 15.0 12.7 FINAL Nicole Ya [place] [facility] , [address] [place] [id number] 0 01/06 CBC w/ auto diff EO % % 0.0 7.0 0.0 FINAL Nicole Ya [place] [facility] , [address] [place] [id number] 0 01/06 CBC w/ auto diff BA % % 0.0 2.0 0.0 FINAL Nicole Ya [place] [facility] , [address] [place] [id number] 0 01/06 CBC w/ auto diff LY # K/uL 0.4 3.6 1.1 FINAL Nicole Ya [place] [facility] , [address] [place] [id number] 0 01/06 CBC w/ auto diff MO # K/uL 0.2 1.3 0.6 FINAL Nicole Ya [place] [facility] , [address] [place] [id number] 0 01/06 CBC w/ auto diff EO # K/uL 0.0 0.6 0.0 FINAL Nicole Ya [place] [facility] , [address] [place] [id number] 0 01/06 CBC w/ auto diff BA # K/uL 0.0 0.2 0.0 FINAL Nicole Ya [place] [facility] , [address] [place] [id number] 0 01/06 CBC w/ auto diff NRBC % #/100W BC 0.0 0.2 0.0 FINAL Nicole Ya [place] [facility] , [address] [place] [id number] 0 01/06 CBC w/ auto diff RBC M/uL 3.9 5.1 3.69 Low FINAL Nicole Ya [place] [facility] , [address] [place] [id number] 0 01/06 CBC w/ auto diff HCT % 35.0 48.0 37.6 FINAL Nicole Ya [place] [facility] , [address] [place] [id number] 0 01/06 CBC w/ auto diff MCV fL 80.0 104.0 101.9 FINAL Nicole Ya [place] [facility] [place] [facility] , [address] [place] [id number] 0 01/06 CBC w/ auto diff MCH pg 26.0 35.0 34.7 FINAL Nicole Ya [place] [facility] [place] [facility] , [address] [place] [id number] 0 01/06 CBC w/ auto diff MCHC g/dL 30.0 35.0 34.0 FINAL Nicole [facility] [place] [facility] , [address] [place] [id number] 0 01/06 CBC w/ auto diff MPV fL 9.5 13.4 9.6 FINAL Nicole Ya [place] [facility] , [address] [place] [id number] 0 01/06 CBC w/ auto diff RDW % 11.4 16.1 13.00 FINAL Nicole Felton [facility] [place] [facility] , [address] [place] [id number] 0 01/06 CMP Album in g/dL 3.5 5.0 3.9 FINAL Nicole Ya * [place] [facility] [place] [facility] , [address] [facility] [id number] 0 01/06 CMP Alkal ine phosp hatas e U/L 36.0 125.0 79 FINAL Nicole Ya * [place] [facility] [place] [facility] , [address] [facility] [id number] 0 01/06 CMP ALT/S GPT U/L 0.0 34.0 24 FINAL Nicole Ya * [facility] , [address] [id number] 0 01/06 CMP AST/S GOT U/L 14.0 36.0 33 FINAL Nicole Ya * [facility] , [address] [facility] [address] [id number] 0 01/06 CMP BUN mg/dL 7.0 17.0 14.0 FINAL Nicole Ya * [facility] , [facility] [address] [id number] 0 01/06 CMP Calci um mg/dL 8.4 10.2 8.9 FINAL Nicole Ya * [facility] , [address] [facility] [address] [id number] 01/06 CMP Chlor rakan mmol/L 96.0 107.0 109 High FINAL Nicole Ya * [facility] , [facility] [address] [id number] 0 01/06 CMP CO2 mmol/L 22.0 30.0 [...] stability window. FINAL Nicole Ya * [facility] , [address] [facility] [address] [id number] 0 01/06 CMP Creat inine mg/dL 0.66 1.25 1.00 FINAL Nicole Ya * [facility] , [facility] [address] [facility] [id number] 0 01/06 CMP GFR estim ate ml/min /1.73m ^2 60.2 GFR is calculate d using the CKD-EPI equation. FINAL Nicoledarius Ya * [facility] , [address] [facility] [address] [facility] [id number] 0 01/06 CMP Gluco se mg/dL 74.0 100.0 88 FINAL Nicole Ya * [facility] , [address] [facility] [address] [facility] [id number] 01/06 CMP Potas sium mmol/L 3.5 5.1 4.1 FINAL Nicoledarius Ya * [facility] , [address] [facility] [address] [facility] [id number] 0 01/06 CMP Sodiu m mmol/L 137.0 145.0 141 FINAL Nicoledarius Ya * [facility] , [address] [facility] [id number] 0 01/06 CMP Bilir ubin, total mg/dL 0.2 1.3 0.8 FINAL Nicole Ya * [facility] , [address] [facility] [id number] 0 01/06 CMP Total prote in g/dL 6.3 8.2 6.2 Low FINAL Nicoledarius Ya * [facility] , [address] [facility] [id number] 0 01/06 PRIOR RESUL T See Report FINAL Nicole NEGRETE, [facility] [address] [place] [id number] 4 01/06 SOUR E: Periphe ral Blood FINAL Nicole NEGRETE, [facility] [address] [place] [id number] 4 01/06 BCR ABL1/ ABL1 % % 0.000 FINAL Nicole Kash, [facility] [address] [place] [id number] 4 01/06 BCR ABL1/ ABL1 % (IS) % 0.000 FINAL Nicole Kash, [facility] [address] [place] [id number] 4 01/06 INTER PRETA TION see note [...] l informati on, please refer tohttp:// education .[employer]/faq/F AQ72(This link is being provided forinform ational/e ducationa l purposes only.)Ass ay sensitivi ty is at least 4.5-logs below baselineB CR-ABL1 transcrip t levels but is dependent onquantit y and quality of RNA used for testing and thecellul arity of the sample.Th is test was developed and its analytica lperforma nce character istics have been determine dby [facility] [place].It has not been cleared or approved by the FDA. Thisassay has been validated pursuant to the CLIAregul ations and is used for clinical purposes. Reviewed by Aiden Hui M.D., Ph.D.Rocío f Pathologi st FINAL Contract Cloud, [facility] [address] [place] [id number] 4 01/06 P190 BCR ABL1 Not Detecte d FINAL Nicole NEGRETE, [facility] [address] [facility] [id number] 4 01/06 P210 BCR ABL1 Not Detecte d FINAL Nicole NEGRETE, [facility] [address] [facility] [id number] 4 Medications Date Name Route Dose Frequency [...] Type Value 08/23/2021 Body Temperature 96.80 08/23/2021 Oxygen Saturation 97.00 08/23/2021 Pain Scale 0.00 08/23/2021 BSA 1.94 08/23/2021 Weight 184.00 08/23/2021 Height 66.50 08/23/2021 BMI 29.25 08/23/2021 Respiratory Rate 16.00 08/23/2021 Heart Beat 78.00 08/23/2021 Intravascular Systolic 112 08/23/2021 Intravascular Diastolic 72 03/13/2022 BMI 27.92 03/13/2022 BSA 1.90 03/13/2022 Body Temperature 97.80 03/13/2022 Heart Beat 81.00 03/13/2022 Pain Scale 2.00 03/13/2022 Oxygen Saturation 99.00 03/13/2022 Intravascular Systolic 124 03/13/2022 Intravascular Diastolic 70 03/13/2022 Height 66.50 03/13/2022 Weight 175.60 03/13/2022 Respiratory Rate 16.00 09/11/2022 Oxygen Saturation 98.00 09/11/2022 Intravascular Systolic 114 09/11/2022 Intravascular Diastolic 76 09/11/2022 Respiratory Rate 16.00 09/11/2022 Pain Scale 0.00 09/11/2022 BSA 1.91 09/11/2022 Height 66.50 09/11/2022 BMI 28.01 09/11/2022 Heart Beat 71.00 09/11/2022 Body Temperature 98.20 09/11/2022 Weight 176.20 11/06/2022 Weight 178.60 11/06/2022 Pain Scale 0.00 11/06/2022 Intravascular Systolic 114 11/06/2022 Intravascular Diastolic 78 11/06/2022 Oxygen Saturation 98.00 11/06/2022 Respiratory Rate 16.00 11/06/2022 Heart Beat 66.00 11/06/2022 Body Temperature 97.80 11/06/2022 BMI 28.39 11/06/2022 Height 66.50 11/06/2022 BSA 1.92 11/09/2022 Pain Scale 0.00 11/09/2022 Height 66.50 11/16/2022 BSA 1.92 11/16/2022 BMI 28.47 11/16/2022 Height 66.50 11/16/2022 Weight 179.10 11/16/2022 Pain Scale 0.00 11/16/2022 Intravascular Systolic 121 11/16/2022 Intravascular Diastolic 82 11/16/2022 Oxygen Saturation 97.00 11/16/2022 Respiratory Rate 16.00 11/16/2022 Body Temperature [...] Rate 16.00 11/27/2022 Oxygen Saturation 99.00 11/27/2022 Intravascular Systolic 144 11/27/2022 Intravascular Diastolic 98 11/27/2022 Pain Scale 0.00 11/27/2022 Weight 169.30 11/27/2022 Height 66.50 11/27/2022 BMI 26.92 11/27/2022 BSA 1.87 11/28/2022 Heart Beat 57.00 11/28/2022 Respiratory Rate 16.00 11/28/2022 Oxygen Saturation 97.00 11/28/2022 Intravascular Systolic 134 11/28/2022 Intravascular Diastolic 76 11/28/2022 Body Temperature 98.90 11/28/2022 Weight 173.00 11/28/2022 Height 66.50 11/28/2022 BMI 27.50 11/28/2022 BSA 1.89 11/28/2022 Pain Scale 0.00 11/29/2022 Body Temperature 97.80 11/29/2022 Heart Beat 101.00 11/29/2022 Respiratory Rate 16.00 11/29/2022 Oxygen Saturation 98.00 11/29/2022 Intravascular Systolic 120 11/29/2022 Intravascular Diastolic 71 11/29/2022 Pain Scale 0.00 11/29/2022 Height 66.50 12/03/2022 Height 66.50 12/03/2022 Pain Scale 0.00 12/03/2022 Intravascular Systolic 128 12/03/2022 Intravascular Diastolic 86 12/03/2022 Oxygen Saturation 100.00 12/03/2022 Heart Beat 69.00 12/03/2022 Body Temperature 98.30 12/07/2022 Height 66.50 12/07/2022 BMI 28.24 12/07/2022 BSA 1.91 12/07/2022 Weight 177.60 12/07/2022 Pain Scale 0.00 12/07/2022 Intravascular Systolic 136 12/07/2022 Intravascular Diastolic 68 12/07/2022 Oxygen Saturation 98.00 12/07/2022 Respiratory Rate 16.00 12/07/2022 Body Temperature 97.90 12/07/2022 Heart Beat 90.00 12/12/2022 Height 66.50 12/12/2022 Intravascular Systolic 106 12/12/2022 Intravascular Diastolic 71 12/12/2022 Oxygen Saturation 97.00 12/12/2022 Respiratory Rate 16.00 12/12/2022 Heart Beat 47.00 12/12/2022 Body Temperature 98.20 12/12/2022 Pain Scale 0.00 12/13/2022 BSA 1.89 12/13/2022 Intravascular Systolic 120 12/13/2022 Intravascular Diastolic 72 12/13/2022 BMI 27.41 12/13/2022 Height 66.50 12/13/2022 Weight 172.40 12/13/2022 Pain Scale 0.00 12/13/2022 Oxygen Saturation 99.00 12/13/2022 Body Temperature 96.00 12/13/2022 Heart Beat 101.00 12/13/2022 Respiratory Rate 18.00 12/14/2022 Body Temperature 98.20 12/14/2022 Heart Beat 107.00 12/14/2022 Respiratory Rate 16.00 12/14/2022 Oxygen Saturation 97.00 12/14/2022 Intravascular Systolic 136 12/14/2022 Intravascular Diastolic 74 12/14/2022 Pain Scale 0.00 12/14/2022 Height 66.50 12/27/2022 Respiratory Rate 16.00 12/27/2022 Oxygen Saturation 97.00 12/27/2022 Intravascular Systolic 104 12/27/2022 Intravascular Diastolic 64 12/27/2022 Pain Scale 0.00 12/27/2022 Heart Beat 84.00 12/27/2022 Height 66.50 12/27/2022 BMI 27.89 12/27/2022 BSA 1.90 12/27/2022 Body Temperature 97.80 12/27/2022 Weight 175.40 12/28/2022 Body Temperature 97.70 12/28/2022 Heart Beat 94.00 12/28/2022 BSA 1.90 12/28/2022 BMI 27.84 12/28/2022 Height 66.50 12/28/2022 Weight 175.10 12/28/2022 Pain Scale 0.00 12/28/2022 Intravascular Systolic 121 12/28/2022 Intravascular Diastolic 72 12/28/2022 Respiratory Rate 16.00 12/28/2022 Oxygen Saturation 97.00 01/01/2023 Height 66.50 01/01/2023 Weight 176.90 01/01/2023 Pain Scale 0.00 01/01/2023 Intravascular Systolic 113 01/01/2023 Intravascular Diastolic 64 01/01/2023 Oxygen Saturation 98.00 01/01/2023 Respiratory Rate 16.00 01/01/2023 Heart Beat 83.00 01/01/2023 Body Temperature 98.60 01/01/2023 BMI 28.12 01/01/2023 BSA 1.91 01/03/2023 Pain Scale 0.00 01/03/2023 Height 66.50 [...] Scale 0.00 01/14/2023 Body Temperature 97.90 01/18/2023 Pain Scale 0.00 01/18/2023 Intravascular Systolic 112 01/18/2023 Intravascular Diastolic 78 01/18/2023 Oxygen Saturation 98.00 01/18/2023 BSA 1.93 01/18/2023 Weight 180.60 01/18/2023 Height 66.50 01/18/2023 Respiratory Rate 17.00 01/18/2023 Heart Beat 74.00 01/18/2023 Body Temperature 96.70 01/18/2023 BMI 28.71 01/23/2023 Intravascular Systolic 104 01/23/2023 Intravascular Diastolic 66 01/23/2023 BSA 1.90 01/23/2023 BMI 27.74 01/23/2023 Height 66.50 01/23/2023 Weight 174.50 01/23/2023 Pain Scale 0.00 01/23/2023 Oxygen Saturation 97.00 01/23/2023 Respiratory Rate 16.00 01/23/2023 Heart Beat 77.00 01/23/2023 Body Temperature 98.70 01/24/2023 Oxygen Saturation 99.00 01/24/2023 Intravascular Systolic 112 01/24/2023 Intravascular Diastolic 67 01/24/2023 Pain Scale 0.00 01/24/2023 Height 66.50 01/24/2023 Body Temperature 97.70 01/24/2023 Heart Beat 82.00 01/24/2023 Respiratory Rate 16.00 01/29/2023 Body Temperature 98.40 01/29/2023 Oxygen Saturation 96.00 01/29/2023 Heart Beat 89.00 01/29/2023 Respiratory Rate 16.00 01/29/2023 Intravascular Systolic 123 01/29/2023 Intravascular Diastolic 78 01/29/2023 Pain Scale 0.00 01/29/2023 Weight 170.20 01/29/2023 Height 66.50 01/29/2023 BMI 27.06 01/29/2023 BSA 1.88 01/30/2023 Pain Scale 0.00 01/30/2023 Intravascular Systolic 115 01/30/2023 Intravascular Diastolic 66 01/30/2023 Oxygen Saturation 98.00 01/30/2023 Height 66.50 01/30/2023 Body Temperature 97.90 01/30/2023 Heart Beat 78.00 01/30/2023 Respiratory Rate 16.00 01/31/2023 Height 66.50 01/31/2023 Pain Scale 0.00 01/31/2023 Intravascular Systolic 113 01/31/2023 Intravascular Diastolic 71 01/31/2023 Oxygen Saturation 98.00 01/31/2023 Respiratory Rate 16.00 01/31/2023 Body Temperature 98.50 01/31/2023 Heart Beat 82.00 02/05/2023 BMI 27.73 02/05/2023 Height 66.50 02/05/2023 Weight 174.40 02/05/2023 Pain Scale 3.00 02/05/2023 BSA 1.90 02/05/2023 Oxygen Saturation 96.00 02/05/2023 Respiratory Rate 16.00 02/05/2023 Heart Beat 112.00 02/05/2023 Body Temperature 99.10 02/05/2023 Intravascular Systolic 110 02/05/2023 Intravascular Diastolic 76 02/07/2023 Pain Scale 0.00 02/07/2023 Height 66.50 02/07/2023 Body Temperature 97.00 02/07/2023 Heart Beat 82.00 02/07/2023 Respiratory Rate 16.00 02/07/2023 Oxygen Saturation 93.00 02/07/2023 Intravascular Systolic 94 02/07/2023 Intravascular Diastolic 64 02/08/2023 Body Temperature 97.70 02/08/2023 Heart Beat 77.00 02/08/2023 Respiratory Rate 16.00 02/08/2023 Oxygen Saturation 99.00 02/08/2023 Intravascular Systolic 104 02/08/2023 Intravascular Diastolic 68 02/08/2023 Pain Scale 0.00 02/08/2023 Weight 179.60 02/08/2023 Height 66.50 02/08/2023 BMI 28.55 02/08/2023 BSA 1.92 02/12/2023 Height 66.50 02/12/2023 BMI 28.08 02/12/2023 Body Temperature 98.30 02/12/2023 Heart Beat 80.00 02/12/2023 Respiratory Rate 16.00 02/12/2023 Oxygen Saturation 98.00 02/12/2023 Intravascular Systolic 97 02/12/2023 Intravascular Diastolic 66 02/12/2023 Pain Scale 0.00 02/12/2023 Weight 176.60 02/12/2023 BSA 1.91 02/19/2023 Height 66.50 02/19/2023 BMI 27.97 02/19/2023 Pain Scale 0.00 02/19/2023 Weight 175.90 02/19/2023 Intravascular Systolic 100 02/19/2023 Intravascular Diastolic 61 02/19/2023 Oxygen Saturation 98.00 02/19/2023 Respiratory Rate 16.00 02/19/2023 Heart Beat 84.00 02/19/2023 Body Temperature 97.30 02/19/2023 BSA 1.90 03/01/2023 BMI 29.00 03/01/2023 Height 66.50 03/01/2023 Weight 182.40 03/01/2023 Pain Scale 0.00 03/01/2023 Oxygen Saturation 98.00 03/01/2023 Respiratory Rate 14.00 03/01/2023 Heart Beat 72.00 03/01/2023 Body Temperature 97.10 03/01/2023 BSA 1.93 03/01/2023 Intravascular Systolic 108 03/01/2023 Intravascular Diastolic 67 03/22/2023 Respiratory Rate 16.00 03/22/2023 Heart Beat 78.00 03/22/2023 Body Temperature 97.90 03/22/2023 Intravascular Systolic 111 03/22/2023 Intravascular Diastolic 69 03/22/2023 Pain Scale 0.00 03/22/2023 Weight 176.70 03/22/2023 Height 66.50 03/22/2023 Oxygen Saturation 99.00 03/22/2023 BSA 1.91 03/22/2023 BMI 28.09 04/12/2023 BSA 1.94 04/12/2023 BMI 29.22 04/12/2023 Height 66.50 04/12/2023 Weight 183.80 04/12/2023 Oxygen Saturation 98.00 04/12/2023 Intravascular Systolic 144 04/12/2023 Intravascular Diastolic 72 04/12/2023 Pain Scale 0.00 04/12/2023 Respiratory Rate 14.00 04/12/2023 Heart Beat 72.00 04/12/2023 Body Temperature 97.20 05/03/2023 Weight 181.60 05/03/2023 Intravascular Systolic 132 05/03/2023 Intravascular Diastolic 76 05/03/2023 Oxygen Saturation 98.00 05/03/2023 Respiratory Rate 16.00 05/03/2023 Pain Scale 0.00 05/03/2023 Body Temperature 97.70 05/03/2023 Height 66.50 05/03/2023 BMI 28.87 05/03/2023 BSA 1.93 05/03/2023 Heart Beat 77.00 05/24/2023 Pain Scale 0.00 05/24/2023 Weight 184.20 [...]
--- OUTSIDE RECORDS SUMMARY | 2025-02-08 13:44 | XMS_ITS | CCD ---
Author Name Interface, [id number] lity Address [address] [facility] [address] [place] [address] [facility] Oncology Address [address] [place] [address] Care Team Providers Care Assessment Director Name Role Phone Nicole Ya MD Unavailable Allergies and Adverse Reactions Care Plan Reason for Visit Encounters Functional Status Immunizations Diagnostic Results Medications Problems Procedures Social History Vital Signs Notes Section
--- OUTSIDE RECORDS SUMMARY | 2025-02-08 13:44 | XMS_ITS ---
Author Name Interface, [id number] lity Address [address] [place] [address] Oncology Address [facility] [address] [address] Allergies and Adverse Reactions Plan Reason for Visit Encounters Immunizations Diagnostic Results Medications Problems Vital Signs
--- OUTSIDE RECORDS SUMMARY | 2025-02-08 13:44 | XMS_ITS ---
Author Name Interface, [id number] lity Address [address] [place] [address] Oncology Address [facility] [address] [address] Allergies and Adverse Reactions Plan Reason for Visit Encounters Immunizations Diagnostic Results Medications Problems Vital Signs
--- OUTSIDE RECORDS SUMMARY | 2025-02-08 13:45 | XMS_ITS ---
Author Name Interface, [id number] lity Address [address] [place], [place] [address]N [place] [id number] [facility] Oncology Address [facility] [address] [address] Allergies and Adverse Reactions Plan Reason for Visit Encounters Immunizations Diagnostic Results Medications Problems Vital Signs Notes Section
--- OUTSIDE RECORDS SUMMARY | 2025-02-08 13:45 | XMS_ITS ---
Author Name Interface, [id number] lity Address [address] [place], [place] [address]N [place] [id number] [facility] Oncology Address [facility] [address] [address] Allergies and Adverse Reactions Plan Reason for Visit Encounters Immunizations Diagnostic Results Medications Problems Vital Signs Notes Section
--- OUTSIDE RECORDS SUMMARY | 2025-02-08 13:45 | XMS_ITS ---
Author Name Interface, [id number] lity Address [address] [place], [place] [address] [place] [id number] [facility] Oncology Address [facility]0 [address] [address] Allergies and Adverse Reactions Plan Reason for Visit Encounters Immunizations Diagnostic Results Medications Problems Vital Signs Notes Section
--- OUTSIDE RECORDS SUMMARY | 2025-02-08 13:45 | XMS_ITS ---
Author Name Interface, [id number] lity Address [address] [facility] [address] [address] [facility] Oncology Address [address] [facility] [address] [address] Allergies and Adverse Reactions Medication/Group Name Reaction [...] [address] [place] [id number] 0 01/06 CBC w/ auto diff HGB g/dL 11.3 15.2 12.8 FINAL Nicole [place] - [place] [facility] , [address] [place] [id number] 0 01/06 CBC w/ auto diff PLT K/uL 113.0 364.0 153 FINAL Nicole Ya [place] [facility] , [address] [place] [id number] 0 01/06 CBC w/ auto diff Augustus # (ANC) K/uL 1.6 6.6 2.8 FINAL Nicole Ya [place] [facility] , [address] [place] [id number] 0 01/06 CBC w/ auto diff Augustus % % 43.0 74.0 61.5 FINAL Nicole Ya [place] [facility] , [address] [place] [id number] 0 01/06 CBC w/ auto diff IG % % 0.0 0.5 0.4 FINAL Nicole Ya [place] [facility] , [address] [place] [id number] 0 01/06 CBC w/ auto diff IG # K/uL 0.0 0.03 0.02 FINAL Nicole Ya [place] [facility] , [address] [place] [id number] 0 01/06 CBC w/ auto diff LY % % 14.0 41.0 25.4 FINAL Nicole Ya [place] [facility] , [address] [place] [id number] 0 01/06 CBC w/ auto diff MO % % 6.0 15.0 12.7 FINAL Nicole Ya [place] [facility] , [address] [place] [id number] 0 01/06 CBC w/ auto diff EO % % 0.0 7.0 0.0 FINAL Nicole Ya [place] [facility] , [address] [place] [id number] 0 01/06 CBC w/ auto diff BA % % 0.0 2.0 0.0 FINAL Nicole Ya [place] [facility] , [address] [place] [id number] 0 01/06 CBC w/ auto diff LY # K/uL 0.4 3.6 1.1 FINAL Nicole Ya [place] [facility] , [address] [place] [id number] 0 01/06 CBC w/ auto diff MO # K/uL 0.2 1.3 0.6 FINAL Nicole Ya [place] [facility] , [address] [place] [id number] 0 01/06 CBC w/ auto diff EO # K/uL 0.0 0.6 0.0 FINAL Nicole Ya [place] [facility] , [address] [place] [id number] 0 01/06 CBC w/ auto diff BA # K/uL 0.0 0.2 0.0 FINAL Nicole Ya [place] [facility] , [address] [place] [id number] 0 01/06 CBC w/ auto diff NRBC % #/100W BC 0.0 0.2 0.0 FINAL Nicole Ya [place] [facility] , [address] [place] [id number] 0 01/06 CBC w/ auto diff RBC M/uL 3.9 5.1 3.69 Low FINAL Nicole Ya [place] [facility] , [address] [place] [id number] 0 01/06 CBC w/ auto diff HCT % 35.0 48.0 37.6 FINAL Nicole Ya [place] [facility] , [address] [place] [id number] 0 01/06 CBC w/ auto diff MCV fL 80.0 104.0 101.9 FINAL Nicole Ya [place] [facility] , [address] [place] [id number] 0 01/06 CBC w/ auto diff MCH pg 26.0 35.0 34.7 FINAL Nicole Ya [place] [facility] , [address] [place] [id number] 0 01/06 CBC w/ auto diff MCHC g/dL 30.0 35.0 34.0 FINAL Nicole Ya [place] [facility] , [address] [place] [id number] 0 01/06 CBC w/ auto diff MPV fL 9.5 13.4 9.6 FINAL Nicole Ya [place] [facility] , [address] [place] [id number] 0 01/06 CBC w/ auto diff RDW % 11.4 16.1 13.00 FINAL Nicole Ya [place] [facility] , [address] [place] [id number] 0 01/06 CMP Album in g/dL 3.5 5.0 3.9 FINAL Nicole [place] * [facility] [place] [facility] , [address] [place] [id number] 0 01/06 CMP Alkal ine phosp hatas e U/L 36.0 125.0 79 FINAL Nicole Ya * [facility] Oncology , [address] [facility] [address] [facility] [id number] 0 01/06 CMP ALT/S GPT U/L 0.0 34.0 24 FINAL Nicole Ya * [facility] Oncology , [address] [facility] [address] [facility] [id number] 0 01/06 CMP AST/S GOT U/L 14.0 36.0 33 FINAL Nicole Ya * [facility] Oncology , [address] [facility] [address] [facility] [id number] 0 01/06 CMP BUN mg/dL 7.0 17.0 14.0 FINAL Nicole Ya * [facility] Oncology , [address] [facility] [address] [facility] [id number] 0 01/06 CMP Calci um mg/dL 8.4 10.2 8.9 FINAL Nicole Ya * [facility] Oncology , [address] [facility] [address] [facility] [id number] 0 01/06 CMP Chlor rakan mmol/L 96.0 107.0 109 High FINAL Nicole Ya * [facility] Oncology , [address] [facility] [address] [facility] [id number] 0 01/06 CMP CO2 mmol/L 22.0 30.0 [...] hour stability window. FINAL Nicole Ya * [facility] Oncology , [address] [facility] [address] [facility] [id number] 0 01/06 CMP Creat inine mg/dL 0.66 1.25 1.00 FINAL Nicole Ya * [facility] Oncology , [facility] [address] [id number] 0 01/06 CMP GFR estim ate ml/min /1.73m ^2 60.2 GFR is calculate d using the CKD-EPI equation. FINAL Nicole Ya * [facility] Oncology , [facility] [address] [id number] 0 01/06 CMP Gluco se mg/dL 74.0 100.0 88 FINAL Nicole Ya * [facility] Oncology , [facility]0 [facility] [address] [id number] 0 01/06 CMP Potas sium mmol/L 3.5 5.1 4.1 FINAL Nicole Ya * [facility] Oncology , [facility]0 [facility] [address] [id number] 0 01/06 CMP Sodiu m mmol/L 137.0 145.0 141 FINAL Nicole Ya * [facility] Oncology , [facility]0 [facility] [address] [id number] 0 01/06 CMP Bilir ubin, total mg/dL 0.2 1.3 0.8 FINAL Nicole Ya * [facility] Oncology , [facility] [address] [id number] 0 01/06 CMP Total prote in g/dL 6.3 8.2 6.2 Low FINAL Nicole Ya * [facility] Oncology , [facility] [address] [id number] 0 01/06 PRIOR RESUL T See Report FINAL Nicole Ya [facility], [facility] [address] [facility] [id number] 4 01/06 SOURC E: Periphe ral Blood FINAL Nicole Ya [facility], [facility] [address] [place] [id number] 4 01/06 BCR ABL1/ ABL1 % % 0.000 FINAL Nicole Ya [facility], [facility] [address] [place] [id number] 4 01/06 BCR ABL1/ ABL1 % (IS) % 0.000 FINAL Nicole Ya [facility], [facility] [address] [place] [id number] 4 01/06 INTER PRETA TION see note [...] l informati on, please refer tohttp:// education .[employer]/faq/F AQ72(This link is being provided forinform ational/e [...] [facility] , [place], [place].It has not been cleared or approved by the FDA. Thisassay has been validated pursuant to the CLIAregul ations and is used for clinical purposes. Reviewed by Aiden Hui M.D., Ph.D.Staf f Pathologi st FINAL Nicole Ya [facility], [facility] [address] [facility] [id number] 4 01/06 P190 BCR ABL1 Not Detecte d LELIA NEGRETE, [facility] [address] [facility] [id number] 4 01/06 P210 BCR ABL1 Not Detecte d LELIA NEGRETE [facility] [address] [facility] [id number] 4 Medications Date Name Route Dose Frequency [...] Of : 1955 Today's Provider:?Tiara Coronado RN, [employer]IGH [employer]PUT[employer] SCIENCE TEACHER, MA, AOCN Date of Service:?01/20/2025 Attending Physician:?Nicole [...] children live??locally-1 son??lives on a farm near [facility]. ??Another son lives about 9 miles away near [place].?? One child lives in [place].?? She is a supportive group of friends.?? 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 Habits:?? Nonsmoker, does not drink ETOH Vital [...] Of : 1955 Today's Provider:?Tiara Coronado RN, HIGH SCHOOL COMPUTER SCIENCE TEACHER, MA, AOCN Date of Service:?01/06/2025 Attending Physician:?Nicole [...] children live??locally-1 son??lives on a farm near [facility]. ??Another son lives about 9 miles away near [place].?? One child lives in [place].?? She is a supportive group of friends.?? 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 Habits:?? Nonsmoker, does not drink ETOH Vital Signs Blood pressure: 130/88, Pulse: 50, Temperature: 96.4 F, Respirations: 16, O2 sat: 96%, Pain Scale: 1, Height: 66.5 in, Weight: 170.1 lb, BSA: 1.88, BMI: 27.04 kg/m2 Covid-19 vaccine ([employer]) (03/13/2022), Patient declined/rejected; Flu vaccine - Adult [...]
[2025-02-08] MEDS: GI COCKTAIL (VISC LIDO/ANTACID) 30 ML PO (13:46)
[2025-02-08 13:51] LABS: Hematocrit* 40.8 % (33.0-51.0); Hemoglobin* 13.6 gm/dL (12.0-16.0); Immature Granulocytes Abs Auto 0.07 K/uL (0.00-0.30); Immature Granulocytes Pct Auto 0.9 %; Mean Corpuscular HGB Conc 33 gm/dL (32-36); Mean Corpuscular Hemoglobin 33 pg (26-34); Mean Corpuscular Volume 100 fL (80-100); RDW Coefficient of Variation % 12.4 % (11.5-15.5); Red Blood Count* 4.08 m/uL (4.00-5.20); White Blood Count* 7.80 K/uL (4.50-11.00)
[2025-02-08 13:54] LABS: Lymphocytes Absolute Auto 1.20 K/uL (0.90-2.90); Slide Review Reflex No
[2025-02-08 13:58] LABS: Troponin, Point-of-Care* 0.00 ng/ml (0.01-0.04)
[2025-02-08 14:55] LABS: Albumin* 3.8 g/dL (3.3-5.0); Chloride* 104 mmol/L (96-114); Potassium* 4.2 mmol/L (3.6-5.1); Sodium* 137 mmol/L (135-149)
[2025-02-08 14:58] LABS: Alanine Aminotransferase* 34 U/L (4-35); Alkaline Phosphatase* 82 U/L (40-150); Anion Gap 8 mEq/L (7-15); Aspartate Amino Transferase* 28 U/L (12-35); Bilirubin Total* 0.9 mg/dL (0.1-1.5); Blood Urea Nitrogen* 16 mg/dL (7-30); Carbon Dioxide* 25 mmol/L (20-32); Creatinine* 1.0 mg/dL (0.5-1.5); Estimated Glomerular Filt Rate 60 ml/min
[2025-02-08 14:59] LABS: Calcium* 9.1 mg/dL (8.4-10.6); Glucose* 98 mg/dL (60-115); Total Protein* 6.1 g/dL (6.0-8.3)
[2025-02-08 15:58] VITALS: BP 130/80; PULSE 68; RESP 16; O2SAT 96
== END 2025-02-08 16:01 | disposition home or self-care (01) ==
PROVIDERS: Emergency Provider Emergency Medicine
DX: K21.9 Gastro-esophageal reflux disease without esophagitis (principal)
CPT/HCPCS: 36415; 71046; 80053; 84484; 85025; 93005; 99284; A9270